=== PATIENT | female | born 1980 | race Caucasian/White ===

== ENCOUNTER 2020-02-24 04:51 | Emergency (ER) | payer SELFPAY ==
[2020-02-24] MEDS ORDERED: LORazepam 2 MG/ML VIAL ONE ×2 (05:27→09:22)
[2020-02-24 06:01] LABS: Absolute Lymphocytes (CBC) 2.1 K/uL (0.7-4.9); Basophils % 0.8 % (0-1.3); Hematocrit 39.9 % (36.0-45.0); Lymphocytes % 26.9 % (15.3-44.8); MPV 8.9 fL (7.6-11.3); RBC Red Blood Cell Count 4.45 M/uL (3.86-4.86)
[2020-02-24 06:03] LABS: Protime INR 1.15
[2020-02-24] MEDS ORDERED: NA CHLORIDE 0.9% 1,000 ML ONE (07:02)
[2020-02-24 07:12] LABS: ALT/SGPT 82 U/L (12-78); AST/SGOT 34 U/L (15-37); Albumin 3.9 g/dL (3.4-5.0); Alkaline Phosphatase 121 U/L (45-117); BUN Blood Urea Nitrogen 12 mg/dL (7-18); Bicarbonate 24 mmol/L (21-32); Bilirubin Direct 0.2 mg/dL (0-0.2); Bilirubin Total 0.6 mg/dL (0.2-1.0); Glucose Level 108 mg/dL (74-106); Magnesium 2.2 mg/dL (1.8-2.4); NT PRO-BNP 456 pg/mL (<125); Protein, Total 8.6 g/dL (6.4-8.2); Sodium Level 140 mmol/L (136-145); Troponin (Emerg Dept Use Only) < 0.02 ng/mL (0.0-0.045)
[2020-02-24 07:15] LABS: Potassium 2.7 mmol/L (3.5-5.1)
[2020-02-24] MEDS ORDERED: MEPERIDINE HCL 50 MG/ML ONE ×2 (07:38→09:21)
[2020-02-24] MEDS ORDERED: POTASSIUM CL SA 10 MEQ TAB PO ONE (07:38)
[2020-02-24] MEDS ORDERED: KCL 20 MEQ/100 mL IVPB 20 MEQ/100 ML BAG IV ONE (07:38)
--- NOTE | 2020-02-24 08:12 | RAD REPORT ---
EXAM DESCRIPTION: Ramiro Single View02/24/2020 6:05 am CLINICAL HISTORY: Chest pain COMPARISON: none FINDINGS: The lungs appear clear of acute infiltrate. The heart is normal size IMPRESSION: No acute abnormalities displayed
--- NOTE | 2020-02-24 09:11 | ER ---
Nurse's Notes [facility] Name: Denise Wick Age: 39 yrs Sex: Female : 1980 Arrival Date: 02/24/2020 Time: 04:53 Bed 4 Private MD: Diagnosis: Chest pain, unspecified Presentation: 02/23 05:18 Chief complaint: EMS states: they were called out for report of pt with chest pain. bb Coronavirus screen: At this time, the client does not indicate any symptoms associated with coronavirus-19. Ebola Screen: No symptoms or risks identified at this time. Initial Sepsis Screen: Does the patient meet any 2 criteria? No. Patient's initial sepsis screen is negative. Does the patient have a suspected source of infection? No. Patient's initial sepsis screen is negative. Risk Assessment: Do you want to hurt yourself or someone else? Patient reports no desire to harm self or others. Onset of symptoms was February 24, 2020. 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 - Social history:: Smoking status: unknown. Screenin:15 Abuse screen: Denies threats or abuse. Nutritional screening: No deficits noted. mt2 Tuberculosis screening: No symptoms or risk factors identified. Fall Risk None identified. Assessment: 05:15 Pain: Complains of pain in chest Pain radiates to back Pain currently is 10 out of 10 mt2 on a pain scale. Quality of pain is described as pressure, sharp, Pain began gradually. Cardiovascular: Reports chest pain. 05:49 Reassessment: PT DISCLOSED HAVING DONE SPEED WITH FRIEND THINKING IT WAS COCAINE. mt2 General: Appears distressed, Behavior is anxious. Neuro: No deficits noted. Respiratory: Reports shortness of breath. GI: Reports epigastric pain. : No deficits noted. EENT: No deficits noted. Derm: No deficits noted. Musculoskeletal: No deficits noted. 06:06 Reassessment: Patient and/or family updated on plan of care and expected duration. Pain mt2 level reassessed. Patient is alert, oriented x 3, equal unlabored respirations, skin warm/dry/pink. Reassessment: PATIENT UPSET WITH SPOUSE ATTITUDE ON PHONE. ANXIETY HAS INCREASED THOUGH VS IMPROVING. General: Appears uncomfortable, Behavior is anxious. 07:20 General: Appears comfortable, Behavior is calm, cooperative. Pain: Complains of pain in aa5 chest Pain radiates to back Pain currently is 8 out of 10 on a pain scale. Quality of pain is described as pressure, sharp. Neuro: Level of Consciousness is awake, alert, obeys commands, Oriented to person, place, time, situation, Reports headache frontal area. Cardiovascular: Heart tones S1 S2 present Rhythm is sinus tachycardia. Respiratory: Airway is patent Respiratory effort is even, unlabored, Respiratory pattern is regular, symmetrical, Breath sounds are clear bilaterally. Denies cough, shortness of breath. GI: Abdomen is round Bowel sounds present X 4 quads. Abd is soft and non tender X 4 quads. Patient currently denies nausea, vomiting. : No signs and/or symptoms were reported regarding the genitourinary system. EENT: No signs and/or symptoms were reported regarding the EENT system. Derm: Skin is pink, warm \\T\\ dry. Musculoskeletal: Range of motion: intact in all extremities. 07:35 Reassessment: Patient is alert, oriented x 3, equal unlabored respirations, skin aa5 warm/dry/pink. Pt reminded of need for urine specimen, pt verbalizes understanding. . 08:00 Reassessment: Pt resting in bed with eyes closed, respirations even and unlabored, skin aa5 is pink/warm/dry. NSR on monitor. . 08:30 Reassessment: Pt resting in bed with eyes closed, respirations even and unlabored, skin aa5 is pink/warm/dry.. 09:09 Reassessment: Patient is alert, oriented x 3, equal unlabored respirations, skin aa5 warm/dry/pink. Pt states "I am still in pain and can I please get something for anxiety". Pt reports she is having personal issues and has anxiety. was notified and Demerol and Ativan ordered. . 09:20 Reassessment: Patient is alert, oriented x 3, equal unlabored respirations, skin aa5 warm/dry/pink. General: Appears comfortable, Behavior is calm, cooperative. 09:25 Reassessment: To bedside to d/c pt, pt appears upset about no prescription for pain aa5 medication. Pt states "Can't the doctor prescribe me [place] or at least some Vicodin?", explained to pt ER doctor is not able to prescribe [place] or Vicodin and explained pt that Tylenol #3 is strongest pain medication prescribed in ER and due to her allergy the doctor is unable to prescribe it to her. Pt reports she gets "itching and some hives" with Tylenol #3. Pt responded "well, I don't think I am even allergic to codeine, I think my grandpa was". 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 Will notify MD. . 09:40 Reassessment: MD speaking to patient about prescription for pain medication, pt remains aa5 upset after speaking to MD. . Vital Signs: 05:18 BP 158 / 100; Pulse 135; Resp 18 S; Pulse Ox 100% on R/A; Weight 63.5 kg (R); Height 5 bb ft. 6 in. (167.64 cm) (R); Pain 10/10; 05:50 BP 146 / 105; Pulse 119; Resp 23; Pulse Ox 100% on 2 lpm NC; Pain 7/10; mt2 06:06 BP 140 / 93; Pulse 114; Resp 18; Pulse Ox 99% on 2 lpm NC; Pain 5/10; mt2 06:30 BP 114 / 81; Pulse 105; Resp 17; Pulse Ox 99% on 2 lpm NC; Pain 0/10; mt2 07:20 BP 149 / 109; Pulse 102; Resp 18 S; Temp 99.0(O); Pulse Ox 97% on R/A; Pain 7/10; aa5 08:01 BP 140 / 92; Pulse 93; Resp 16 S; Pulse Ox 100% on R/A; Pain 7/10; aa5 05:18 Body Mass Index 22.60 (63.50 kg, 167.64 cm) ED Course: 04:50 Patient has correct armband on for positive identification. Bed in low position. Call mt2 light in reach. Side rails up X 1. site monitor on. Pulse ox on. NIBP on. 04:53 Patient arrived in ED. cl3 04:58 Daniel Chowdhury MD is Attending Physician. mh7 05:00 Inserted saline lock: 20 gauge antecubital area, using aseptic technique. Blood mt2 collected. Oxygen administration via nasal cannula \\T\\ 2L/min. 05:20 Triage completed. bb 05:21 Arm band placed on Patient placed in an exam room, on a stretcher, on manager cardiac cath, bb on pulse oximetry. EKG completed in triage. Results shown to MD. 05:34 Tressa Koo, DRISS is Primary Nurse. mt2 05:37 Radiology exam delayed due to patient is not appropriately dressed for the exam at this 1 time. 06:00 XRAY Chest (1 view) In Process Unspecified. EDMS 07:05 Report received from DRISS Bustillos. aa5 07:14 Attending Physician role handed off by Daniel Chowdhury MD rn 07:14 Noah Steven MD is Attending Physician. rn 08:54 UDS Sent. 5 08:55 Urine collected: clean catch specimen, cloudy. 5 09:20 IV discontinued, intact, bleeding controlled, No redness/swelling at site. Pressure aa5 dressing applied. 09:20 No provider procedures requiring assistance completed. aa5 Administered Medications: 05:15 Drug: Ativan 1 mg Route: IVP; Site: right antecubital; mt2 05:40 Follow up: Response: No adverse reaction; Pain is unchanged, physician notified mt2 05:48 Drug: Ativan 1 mg Route: IVP; Site: right antecubital; mt2 06:00 Follow up: Response: No adverse reaction; Pain is decreased; Anxiety decreased mt2 06:20 Drug: NS 0.9% 1000 ml Route: IV; Rate: 1000 ml; Site: right antecubital; mt2 08:45 Follow up: IV Status: Completed infusion; IV Intake: 1000ml aa5 07:35 Drug: Demerol 50 mg Route: IVP; Site: right antecubital; aa5 07:45 Follow up: Response: No adverse reaction aa5 07:35 Drug: Potassium Chloride 40 mEq Route: PO; aa5 08:45 Follow up: Response: No adverse reaction aa5 07:35 Drug: Potassium Chloride 10 mEq Route: IV; Rate: calculated rate; Site: right aa5 antecubital; 08:45 Follow up: Response: No adverse reaction; IV Status: Completed infusion aa5 09:13 Drug: Demerol 25 mg Route: IVP; Site: right antecubital; aa5 09:20 Follow up: Response: No adverse reaction aa5 09:13 Drug: Ativan 1 mg Route: IVP; Site: right antecubital; aa5 09:20 Follow up: Response: No adverse reaction; Anxiety decreased aa5 Intake: 08:45 IV: 1000ml; Total: 1000ml. aa5 Outcome: 09:09 Discharge ordered by . rn 09:40 Discharged to home via wheelchair, with significant other. aa5 09:40 Condition: stable 09:40 Discharge instructions given to patient, Instructed on discharge instructions, follow up and referral plans. medication usage, Demonstrated understanding of instructions, follow-up care, medications, Prescriptions given X 1. 09:42 Patient left the ED. aa5 Signatures: Dispatcher [employer] EDMS Dariana Álvarez 1 Lissette Hopkins RN RN bb Noah Steven MD MD rn Calderon, Audri, RN RN aa5 Juliana Atkinson 5 Donnell Marin 3 Daniel Chowdhury MD MD 7 Tressa Koo RN RN mt2 Corrections: (The following items were deleted from the chart) 08:02 07:20 Pain: Complains of pain in chest Pain does not radiate. Pain currently is 7 out aa5 of 10 on a pain scale. Quality of pain is described as pressure, sharp, aa5 08:53 07:45 Response: No adverse reaction; IV Status: Completed infusion aa5 aa5 11:15 09:46 Patient left the ED. aa5 aa5
--- NOTE | 2020-02-24 09:11 | EDPHYS ---
Physician Documentation [facility] Name: Denise Wick Age: 39 yrs Sex: Female : 1980 Arrival Date: 02/24/2020 Time: 04:53 Bed 4 Private MD: ED Physician Noah Steven HPI: 02/23 05:18 This 39 yrs old Female presents to ER via Unassigned with complaints of Chest Pain. mh7 05:18 The patient or guardian reports chest pain that is located primarily in the substernal mh7 area. The pain does not radiate. Associated signs and symptoms: Pertinent positives: nausea, palpitations, Pertinent negatives: abdominal pain, cough, diaphoresis, dizziness, headache, lower extremity pain, lower extremity swelling, lightheadedness, near syncope, syncope. 05:21 The chest pain is described as a pressure. Duration: The patient or guardian reports mh7 multiple episodes, that are intermittent, that wax and wane, with no pattern. Modifying factors: The symptoms are alleviated by nothing. the symptoms are aggravated by nothing. Severity of pain: At its worst the pain was moderate today, in the emergency department the pain is unchanged. 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 - Social history:: Smoking status: unknown. ROS: 05:21 Constitutional: Negative for fever, chills, and weight loss, Eyes: Negative for injury, mh7 pain, redness, and discharge, ENT: Negative for injury, pain, and discharge, Neck: Negative for injury, pain, and swelling, Back: Negative for injury and pain, : Negative for injury, bleeding, discharge, and swelling, MS/Extremity: Negative for injury and deformity, Skin: Negative for injury, rash, and discoloration, Neuro: Negative for headache, weakness, numbness, tingling, and seizure, Allergy/Immunology: Negative for hives, rash, and allergies, Endocrine: Negative for neck swelling, polydipsia, polyuria, polyphagia, and marked weight changes, Hematologic/Lymphatic: Negative for swollen nodes, abnormal bleeding, and unusual bruising. Exam: 05:21 Head/Face: Normocephalic, atraumatic. Eyes: Pupils equal round and reactive to light, mh7 extra-ocular motions intact. Lids and lashes normal. Conjunctiva and sclera are non-icteric and not injected. Cornea within normal limits. Periorbital areas with no swelling, redness, or edema. Neck: Trachea midline, no thyromegaly or masses palpated, and no cervical lymphadenopathy. Supple, full range of motion without nuchal rigidity, or vertebral point tenderness. No Meningismus. Chest/axilla: Normal chest wall appearance and motion. Nontender with no deformity. No lesions are appreciated. 05:21 Respiratory: Lungs have equal breath sounds bilaterally, clear to auscultation and percussion. No rales, rhonchi or wheezes noted. No increased work of breathing, no retractions or nasal flaring. Abdomen/GI: Soft, non-tender, with normal bowel sounds. No distension or tympany. No guarding or rebound. No evidence of tenderness throughout. Back: No spinal tenderness. No costovertebral tenderness. Full range of motion. Skin: Warm, dry with normal turgor. Normal color with no rashes, no lesions, and no evidence of cellulitis. MS/ Extremity: Pulses equal, no cyanosis. Neurovascular intact. Full, normal range of motion. Neuro: Awake and alert, GCS 15, oriented to person, place, time, and situation. Cranial nerves II-XII grossly intact. Motor strength 5/5 in all extremities. Sensory grossly intact. Cerebellar exam normal. Normal gait. 05:21 Constitutional: The patient appears in no acute distress, alert, awake, anxious. 05:21 Cardiovascular: Rate: tachycardic, Rhythm: regular, Pulses: no pulse deficits are appreciated, Heart sounds: normal, normal S1and S2, Edema: is not appreciated, JVD: is not appreciated. 05:21 Psych: Behavior/mood is cooperative, anxious, Affect is animated, Oriented to person, place, time, Patient has no thoughts/intents to harm self or others. Judgement / Insight is normal. Memory is normal. Delusions/hallucinations are not present. Vital Signs: 05:18 BP 158 / 100; Pulse 135; Resp 18 S; Pulse Ox 100% on R/A; Weight 63.5 kg (R); Height 5 bb ft. 6 in. (167.64 cm) (R); Pain 10/10; 05:50 BP 146 / 105; Pulse 119; Resp 23; Pulse Ox 100% on 2 lpm NC; Pain 7/10; mt2 06:06 BP 140 / 93; Pulse 114; Resp 18; Pulse Ox 99% on 2 lpm NC; Pain 5/10; mt2 06:30 BP 114 / 81; Pulse 105; Resp 17; Pulse Ox 99% on 2 lpm NC; Pain 0/10; mt2 07:20 BP 149 / 109; Pulse 102; Resp 18 S; Temp 99.0(O); Pulse Ox 97% on R/A; Pain 7/10; aa5 08:01 BP 140 / 92; Pulse 93; Resp 16 S; Pulse Ox 100% on R/A; Pain 7/10; aa5 05:18 Body Mass Index 22.60 (63.50 kg, 167.64 cm) bb MDM: 05:13 Patient medically screened. [facility] 07:05 Transition of care: After a detail discussion of the patient's case, care is mh7 transferred to Noah Steven MD. 07:20 ED course: Pt states her had been calling her all day yesterday, under a lot of rn stress, reports yesterday afternoon "took a bump of cocaine", but "ended up being speed", made her chest pain worse. . 08:34 Differential diagnosis: acute myocardial infarction, acute pericarditis, anxiety, chest rn wall pain, costochondritis, gastritis, pleurisy, pneumothorax. Data reviewed: vital signs, nurses notes, lab test result(s), EKG, radiologic studies, plain films, and as a result, I will discharge patient. ED course: Pt very anxious, stressed, tearful, reports worried because might lose her job and might be getting divorce, crying, will continue with IVF and reeval. . 02/23 05:12 Order name: Basic Metabolic Panel; Complete Time: 07:21 [facility] 02/23 05:12 Order name: CBC with Diff; Complete Time: 06:06 [facility] 02/23 05:12 Order name: LFT's; Complete Time: 07:21 02/23 05:12 Order name: Magnesium; Complete Time: 07:21 02/23 05:12 Order name: NT PRO-BNP; Complete Time: 07:21 02/23 05:12 Order name: PT-INR; Complete Time: 06:06 02/23 05:12 Order name: Troponin (emerg Dept Use Only); Complete Time: 07:21 02/23 05:12 Order name: XRAY Chest (1 view); Complete Time: 08:17 02/23 05:12 Order name: UDS; Complete Time: 09:40 02/23 09:10 Order name: Urine Dipstick--Ancillary (enter results); Complete Time: 09:40 02/23 09:10 Order name: Urine --Ancillary (enter results); Complete Time: 09:40 bd 02/23 05:12 Order name: EKG; Complete Time: 05:13 02/23 05:12 Order name: Cardiac monitoring; Complete Time: 05:02/23 05:12 Order name: EKG - Nurse/Tech; Complete Time: 05:31 02/23 05:12 Order name: IV Saline Lock; Complete Time: 05:02/23 05:12 Order name: Labs collected and sent; Complete Time: 05:02/23 05:12 Order name: O2 Per Protocol; Complete Time: 05:02/23 05:12 Order name: O2 Sat Monitoring; Complete Time: 05:02/23 05:12 Order name: Urine Dipstick-Ancillary (obtain specimen); Complete Time: 08:54 02/23 05:12 Order name: Urine Test (obtain specimen); Complete Time: 08:54 7 Administered Medications: 05:15 Drug: Ativan 1 mg Route: IVP; Site: right antecubital; mt2 05:40 Follow up: Response: No adverse reaction; Pain is unchanged, physician notified mt2 05:48 Drug: Ativan 1 mg Route: IVP; Site: right antecubital; mt2 06:00 Follow up: Response: No adverse reaction; Pain is decreased; Anxiety decreased mt2 06:20 Drug: NS 0.9% 1000 ml Route: IV; Rate: 1000 ml; Site: right antecubital; mt2 08:45 Follow up: IV Status: Completed infusion; IV Intake: 1000ml aa5 07:35 Drug: Demerol 50 mg Route: IVP; Site: right antecubital; aa5 07:45 Follow up: Response: No adverse reaction aa5 07:35 Drug: Potassium Chloride 40 mEq Route: PO; aa5 08:45 Follow up: Response: No adverse reaction aa5 07:35 Drug: Potassium Chloride 10 mEq Route: IV; Rate: calculated rate; Site: right aa5 antecubital; 08:45 Follow up: Response: No adverse reaction; IV Status: Completed infusion aa5 09:13 Drug: Demerol 25 mg Route: IVP; Site: right antecubital; aa5 09:20 Follow up: Response: No adverse reaction aa5 09:13 Drug: Ativan 1 mg Route: IVP; Site: right antecubital; aa5 09:20 Follow up: Response: No adverse reaction; Anxiety decreased aa5 Disposition: 02/24/20 09:09 Discharged to Home. Impression: Chest pain, unspecified. - Condition is Stable. - Discharge Instructions: Nonspecific Chest Pain, Urinary Tract Infection, Adult, Generalized Anxiety Disorder. - Prescriptions for Cipro 500 mg Oral Tablet - take 1 tablet by ORAL route every 12 hours for 7 days; 14 tablet. - Medication Reconciliation Form, Thank You Letter, Antibiotic Education, Prescription Opioid Use, Work release form form. - Follow up: Private Physician; When: As needed; Reason: Recheck today's complaints, Re-evaluation by your physician. - Problem is new. - Symptoms have improved. Signatures: Dispatcher [employer] EDMS Lissette Hopkins RN RN bb Noah Steven MD MD rn Calderon, Audri, RN RN aa5 Daniel Chowdhury MD MD [facility] Tressa Koo RN RN mt2 Corrections: (The following items were deleted from the chart) 09:46 09:09 02/24/2020 09:09 Discharged to Home. Impression: Chest pain, unspecified. aa5 Condition is Stable. Forms are Medication Reconciliation Form, Thank You Letter, Antibiotic Education, Prescription Opioid Use. Follow up: Private Physician; When: As needed; Reason: Recheck today's complaints, Re-evaluation by your physician. Problem is new. Symptoms have improved. rn
[2020-02-24 09:18] LABS: Urine Blood NEGATIVE (NEG); Urine Glucose NEGATIVE (NEG); Urine Protein NEGATIVE (NEG)
[2020-02-24 09:20] LABS: Barbiturates NEGATIVE (NEGATIVE); Benzodiazepines NEGATIVE (NEGATIVE); Cocaine NEGATIVE (NEGATIVE); METHAMPHETAM POSITIVE (NEGATIVE); Methadone NEGATIVE (NEGATIVE); Opiates NEGATIVE (NEGATIVE); Phencyclidine NEGATIVE (NEGATIVE); THC Cannibis NEGATIVE (NEGATIVE)
== END 2020-02-24 09:46 | disposition home or self-care (01) ==
LOC: EDBD 04:51 → ER 04:51
DX: R07.9 Chest pain, unspecified (principal); I10 Essential (primary) hypertension; Z88.5 Allergy status to narcotic agent
CPT/HCPCS: 36415; 71045; 80048; 80076; 80307; 81003; 81025; 83735; 83880; 84484; 85025; 85610; 93005; 96361; 96365; 96375; 99285; J2175; J3480; J7030

== ENCOUNTER 2020-02-25 11:18 | Emergency (ER) | payer SELFPAY ==
--- OUTSIDE RECORDS SUMMARY | 2020-02-25 11:20 | XMS REPORT | Continuity of Care Document ---
:1980 Author Organization [facility] t Address [address] [place] [address] Care Team Providers Name Role Phone BUDDY ZAPATA Attending Clinician Unavailable DRE PARKER Attending Clinician Unavailable FROILAN ZAPATA Admitting Clinician Unavailable DRE PARKER Admitting Clinician Unavailable Problems This patient has no known problems. Allergies, Adverse Reactions, Alerts This patient has no known allergies or adverse reactions. Medications This patient has no known medications. Procedures This patient has no known procedures. Results Test Description Test Time Test Comments Results Result [facility] e Comments CT ABDOMEN/PELVIS 2019-08-22 NPO 4 hours. Procedure: CT W/CONTRAST 18:17:32 Do not ABDOMEN/PELVIS withhold meds W/CONTRASTOrder date: 08/22/2019 5:21 PMOrdering Provider: ALLAN Nolascoinical Indication: Severe central abdominal painComparison: NoneTechnique: Multiple axial helical CT images of the abdomen and pelvis wereobtained with IV contrast. Coronal and sagittal reformatted images were alsoobtained.This exam was performed according to the our departmental dose-optimizationprogram which includes automated exposure control, adjustment of the mA and/orkV according to patient size and/or use of iterative reconstruction techniques.Findings:Lung bases are clear and the heart apex within normal limits. No inferiormediastinal abnormality. Inferior osseous structures of the thorax areunremarkable.The solid abdominal viscera are unremarkable. Stomach, small and large bowelare within normal limits.No peritoneal or retroperitoneal masses or adenopathy. No free fluid orpneumoperitoneum.Appen bettie is not visualized if there is no secondary signs of acute appendicitisor inflammatory change within the right lower quadrant.Urinary bladder is unremarkable. No pelvic masses or adenopathy seen. Perirectalfat planes are preserved.Osseous structures of the abdomen and pelvis are nonacute.Impression:Unre markable CT of the abdomen and pelvis with IV contrast.This final report was electronically signed by Dr Verónica Quesada MD 08/22/20196:11 PMDictated By: VERÓNICA QUESADADate: 08/22/2019 18:11 STAT LAB , URINE 2019-08-22 17:09:00 Test Item Value Reference Range Interpretation Comme nts (Urine) (test code = PREGU) Negative STAT LAB URINALYSIS WITHOUT [id number] 17:08:00 Test Item Value Reference Range Interpretation Comments Color (test code = UCOLR) Light yellow Lt. Yellow A Clarity (test code = UCLAR) Clear Glucose (test code = UGLUC) Negative Negative N Bilirubin (test code = UBILI) Negative Negative N Ketones (test code = UKET) Negative Negative N Specific [place] (test code = 1.015 1.005-1.030 A USPGR) Blood (test code = UBLD) Negative Negative N PH (test code = UPH) 5.5 4.5-8.0 A Protein (test code = UPROT) Negative Negative N Urobilinogen (test code = U 0.2 >0.2 N UROB) Nitrite (test code = UNITR) Negative Negative N Leukocyte Esterase (test code = Negative Negative N ULEUK) [id number] 16:39:00 Test Item Value Reference Range Interpretation Comments Lipase (test code = LIPA) 178 U/L 73-393 [id number] 16:39:00 Test Item Value Reference Range Interpretation Comments Sodium (test code = 136 mmol/l 137-145 L NA) Potassium (test 4.4 mmol/l 3.5-5.1 code = K) Chloride (test code 107 mmol/l 98-107 = CL) Calcium (test code 8.5 mg/dl 8.5-10.1 = CALC) CO2 (test code = 24 mmol/l 21-32 CO2) Glucose (test code 99 mg/dl 74-106 = GLU) BUN (test code = 10.0 mg/dl 7.0-18.0 BUN) Creatinine (test 0.7 mg/dl 0.5-1.3 code = CREA) T Protein (test 8.2 gm/dl 6.4-8.2 code = TP) Albumin (test code 3.6 gm/dl 3.4-5.0 = ALB) A/G Ratio (test 0.8 % 1.1-2.2 L code = AGRAT) AST (SGOT) (test 83 U/L 15-37 H code = AST) ALT (SGPT) (test 102 U/L 13-61 H code = ALT) Alkaline Phos (test 93 U/L 45-117 code = ALKP) Total Bilirubin 0.3 mg/dl 0.2-1.0 (test code = TBIL) Globulin (test code 4.6 gm/dl 2.3-3.5 H = GLOBU) Calcium, Corrected 8.8 mg/dl 8.4-10.2 Various f ormulas exist (test code = for corrected s adama CALCCORR) calcium results , each yielding differ ent values. This corrected resul t was based on the fo rmula: Corrected Calci um = SerumCalcium + [0.8 * ( 4 - SerumAlbu min)] EGFR if >60 [place] (test code mL/min/1.73m\ = EGFRAA) S\2 EGFR if Non- >60 Estimate d Glomerular [place] (test code mL/min/1.73m\ Filtrat ion Rate (eGFR) = EGFRNA) S\2 Reference Inter vals Decision Points for 18 years and older and average body ma ss: >= 60 Does not exc lude kidney disease. 30 - 59 Suggests modera te chronic kidney disease and indicat es the need for furthe r investigation including asses sment of proteinuria and cardiovascular factors. < 30 Usually in dicates a need for refe rral for assessment and management of c hronic kidney failure. STAT LAB CBC WITH AUTO [id number] 16:16:00 Test Item Value Reference Range Interpretation Comments WBC (test code = WBC) 4.65 10\S\3/ul 4.80-10.80 L RBC (test code = RBC) 4.26 10\S\6/ul 4.20-5.40 Hemoglobin (test code = HGB) 13.1 gm/dl 12.0-14.0 Hematocrit (test code = HCT) 39.7 % 37.0-47.0 MCV (test code = MCV) 93.2 fL 81.0-99.0 MCH (test code = MCH) 30.8 pg 27.0-31.0 MCHC (test code = MCHC) 33.0 gm/dl 33.0-37.0 Platelet (test code = PLT) 256 10\S\3/ul 130-400 RDW (test code = RDWVC) 12.3 % 11.5-14.5 MPV (test code = MPV) 9.3 fL 7.4-10.4 A NE% (test code = NE) 54.1 % 42.0-75.0 LY% (test code = LY) 33.3 % 13.0-42.0 MO% (test code = MO) 9.2 % 4.0-14.0 EO% (test code = EO) 2.4 % 1.0-3.0 BA% (test code = BA) 0.6 % 1.0-3.0 L IG% (test code = IG%) 0.4 % 0.0-0.4 XR ELBOW MIN 3 [id number] 17:59:10Procedure: XR ELBOW MIN 3 VIEWSOrder Date: 08/19/2019 2:54 PMOrdering Provider: FIONA Vincentinical Indication: [id number]: Pain of left elbow jointComparison: NoneFINDINGS:There is no fracture or dislocation.Osteoarthrosis of the left elbow, particularly at the radial articular surface.No lytic or sclerotic lesions.No joint effusion.No subcutaneous gas.IMPRESSION:1. No fracture or dislocation.2. Osteoarthrosis of the left elbow.3. No other significant findings.This final report was e lectronically signed by Dr Emile Nath MD 08/19/20195:52 PMDictated By: EMILE NATHDate: 08/19/2019 17:52
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
--- NOTE | 2020-02-26 11:42 | EDPHYS ---
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 - Social history:: Smoking status: Patient reports the use of cigarette tobacco products, smokes one-half pack cigarettes per day. Vital Signs: 11:26 BP 147 / 110; Pulse 114; Resp 18 S; Pulse Ox 100% on R/A; Weight 63.5 kg; Height 5 ft. iw 6 in. (167.64 cm); Pain 10; 11:26 Body Mass Index 22.60 (63.50 kg, 167.64 cm) iw MDM: 11:45 ED course: Pt left as I was walking to room for evaluation. Left prior to me evaluating rn her.. Administered Medications: No medications were administered Disposition: 02/25/20 11:41 Patient left the facility before being seen by provider. - Patient left due to (see nurse's notes). Signatures: Aubrie Mccormick RN RN Noah Steven MD MD rn Calderon, Audri, RN RN aa5 Corrections: (The following items were deleted from the chart) 11:43 11:29 Patient medically screened. rn rn
[2020-02-27 18:14] VITALS: BP 147/110; O2SAT 100
== END 2020-02-25 11:41 | disposition left against medical advice (07) ==
LOC: ER 11:18
DX: Z02.9 Encounter for administrative examinations, unspecified (principal); Z53.21 Procedure and treatment not carried out due to patient leaving prior to being seen by health care provider
CPT/HCPCS: 99284

== ENCOUNTER 2020-02-25 17:37 | Emergency (ER) | payer SELFPAY ==
--- OUTSIDE RECORDS SUMMARY | 2020-02-25 17:39 | XMS REPORT | Continuity of Care Document ---
:1980 Author Organization [facility] t Address [address] [place] [address] Care Team Providers Name Role Phone BUDDY [...] Description Test Time Test Comments Results Result [facility] e Comments CT ABDOMEN/PELVIS 2019-08-22 NPO 4 [...] = PREGU) Negative STAT LAB URINALYSIS WITHOUT [id number] 17:08:00 Test Item Value Reference Range Interpretation Comments Color (test code = UCOLR) Light yellow Lt. Yellow A Clarity (test code = UCLAR) Clear Glucose (test code = UGLUC) Negative Negative N Bilirubin (test code = UBILI) Negative Negative N Ketones (test code = UKET) Negative Negative N Specific [place] (test code = 1.015 1.005-1.030 A USPGR) Blood (test code = UBLD) Negative Negative N PH (test code = UPH) 5.5 4.5-8.0 A Protein (test code = UPROT) Negative Negative N Urobilinogen (test code = U 0.2 >0.2 N UROB) Nitrite (test code = UNITR) Negative Negative N Leukocyte Esterase (test code = Negative Negative N ULEUK) [id number] 16:39:00 Test Item Value Reference Range Interpretation Comments Lipase (test code = LIPA) 178 U/L 73-393 [id number] 16:39:00 Test Item Value Reference Range Interpretation [...] 4 - SerumAlbu min)] EGFR if >60 Citizen [place] (test code mL/min/1.73m\ = EGFRAA) S\2 EGFR if Non- >60 Estimate d Glomerular Citizen [place] (test code mL/min/1.73m\ Filtrat ion Rate (eGFR) [...] kidney failure. STAT LAB CBC WITH AUTO [id number] 16:16:00 Test Item Value Reference Range Interpretation [...] 0.4 % 0.0-0.4 XR ELBOW MIN 3 [id number] 17:59:10Procedure: XR ELBOW MIN 3 VIEWSOrder Date: 08/19/2019 2:54 PMOrdering Provider: FIONA Vincentinical Indication: [id number]: Pain of left elbow jointComparison: NoneFINDINGS:There is [...]
[2020-02-25 18:07] LABS: Absolute Lymphocytes (CBC) 2.1 K/uL (0.7-4.9); Basophils % 1.2 % (0-1.3); Hematocrit 41.9 % (36.0-45.0); Lymphocytes % 28.8 % (15.3-44.8); MPV 8.7 fL (7.6-11.3); RBC Red Blood Cell Count 4.69 M/uL (3.86-4.86)
[2020-02-25] MEDS ORDERED: LORAZEPAM 1 MG TABLET ONE (18:16)
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
--- NOTE | 2020-02-25 18:39 | ER ---
Nurse's Notes [facility] Name: Denise Wick Age: 39 yrs Sex: Female : 1980 Arrival Date: 02/25/2020 Time: 17:38 Bed 6 Private MD: Diagnosis: Anxiety disorder, unspecified;Chest pain, unspecified Presentation: 02/24 17:38 Chief complaint: EMS states: Chest pain started a 0200 today. Reports hx of ca1 cardiomyopathy and HPN. Was here yesterday and early today for CP but went AMA. BP 161/110, HR 130s, O2 at 100% RA. Reports she had drugs few days ago. Coronavirus screen: Client denies travel out of the [place] in the last 14 days. At this time, the client does not indicate any symptoms associated with coronavirus-19. Ebola Screen: Patient negative for fever greater than or equal to 101.5 degrees Fahrenheit, and additional compatible Ebola Virus Disease symptoms Patient denies exposure to infectious person. Patient denies travel to an Ebola-affected area in the 21 days before illness onset. No symptoms or risks identified at this time. Initial Sepsis Screen: Does the patient meet any 2 criteria? No. Patient's initial sepsis screen is negative. Does the patient have a suspected source of infection? No. Patient's initial sepsis screen is negative. Risk Assessment: Do you want to hurt yourself or someone else? Patient reports no desire to harm self or others. Onset of symptoms was February 25, 2020. 17:38 Method Of Arrival: EMS: [facility] ca1 17:38 Acuity: CHRISTINA 3 ca1 Triage Assessment: 17:39 General: Appears in no apparent distress. Behavior is agitated, anxious. Pain: bp Complains of pain in chest. EENT: No deficits noted. Neuro: No deficits noted. Cardiovascular: Rhythm is sinus rhythm. Respiratory: No deficits noted. GI: No signs and/or symptoms were reported involving the gastrointestinal system. : No signs and/or symptoms were reported regarding the genitourinary system. Derm: No deficits noted. Musculoskeletal: No deficits noted. 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 - Social history:: Smoking status: Patient reports the use of cigarette tobacco products, smokes two packs cigarettes per day. - Family history:: not pertinent. - Hospitalizations: : No recent hospitalization is reported. Screenin:43 Abuse screen: Denies threats or abuse. Denies injuries from another. Nutritional bp screening: No deficits noted. Tuberculosis screening: No symptoms or risk factors identified. Fall Risk None identified. Assessment: 17:43 General: SEE TRIAGE NOTE. bp 18:08 Reassessment: Pt. is crying and is anxious because she wants her back here with rb1 her. I explained to her that he could not come back with her due to COVID and hospital policy. 18:34 Reassessment: Dr. Steven at the pt. bedside. rb1 18:42 Reassessment: PT ELOPED WITHOUT NOTIFYING STAFF. LAST SEEN IN STABLE CONDITION. bp Vital Signs: 17:38 BP 162 / 111; Pulse 115; Resp 17 S; Temp 98.5(TE); Pulse Ox 100% on R/A; Weight 72.57 ca1 kg (R); Height 5 ft. 6 in. (167.64 cm) (R); 17:45 BP 151 / 117; Pulse 109; Resp 18; Pulse Ox 98% on R/A; rb1 18:30 bp 17:38 Body Mass Index 25.82 (72.57 kg, 167.64 cm) ca1 18:30 PT REFUSED VS MONITORING bp ED Course: 17:38 Patient arrived in ED. ca1 17:39 Chaka Chinchilla, RN is Primary Nurse. bp 17:41 Triage completed. ca1 17:42 Arm band placed on right wrist. ca1 17:43 Patient has correct armband on for positive identification. Bed in low position. Call bp light in reach. Side rails up X2. coding manager on. Pulse ox on. NIBP on. 17:46 Noah Steven MD is Attending Physician. rn 18:26 XRAY Chest (1 view) In Process Unspecified. EDMS 18:30 No provider procedures requiring assistance completed. IV discontinued, intact, bp bleeding controlled, No redness/swelling at site. Pressure dressing applied. Patient maintains SpO2 saturation greater than 95% on room air. Administered Medications: 18:02 CANCELLED (Duplicate Order): Ativan 1 mg IVP once rn 18:08 Drug: Ativan 1 mg Route: PO; rb1 Outcome: 18:30 Eloped from patient exam room, after seeing physician Time discovered patient gone: bp February 25, 2020 at 18:44 18:30 unknown 18:44 Patient left the ED. bp Signatures: Dispatcher [employer] EDMS Naoh Steven MD MD rn Tanna Tinsley RN RN rb1 Chaka Chinchilla, RN RN bp Tara Reese RN RN ca1
[2020-02-25 18:47] LABS: BUN Blood Urea Nitrogen 9 mg/dL (7-18); Bicarbonate 18 mmol/L (21-32); Glucose Level 118 mg/dL (74-106); NT PRO-BNP 730 pg/mL (<125); Sodium Level 141 mmol/L (136-145); Troponin (Emerg Dept Use Only) < 0.02 ng/mL (0.0-0.045)
--- NOTE | 2020-02-25 19:00 | RAD REPORT ---
EXAM DESCRIPTION: RAD - Chest Single View - 02/25/2020 6:28 pm CLINICAL HISTORY: CHEST PAIN Chest pain. COMPARISON: Chest Single View dated 02/24/2020 FINDINGS: Portable technique limits examination quality. The lungs are grossly clear. The heart is normal in size. No displaced fractures. IMPRESSION: No acute intrathoracic process suspected.
--- NOTE | 2020-02-26 12:23 | EKG ---
Test Date: 2020-02-25 Test Time: 17:48:59 Wire Cutter: SHERWIN MEASUREMENT RESULTS: Intervals: Rate: 99 IL: 108 QRSD: 102 QT: 366 QTc: 469 [place]: P: 27 IL: 108 QRS: 51 T: -3 INTERPRETIVE STATEMENTS: Sinus rhythm with short [place] Nonspecific ST and T wave abnormality Prolonged QT Abnormal ECG Compared to ECG 02/24/2020 05:42:43 Short IL interval now present Prolonged QT interval now present Sinus tachycardia no longer present ST (T wave) deviation still present Electronically Signed On 02-26-20 12:22:42 CDT by Reggie Laguna
[2020-02-27 21:13] VITALS: TEMP 98.5
[2020-02-27 21:15] VITALS: BP 151/117; O2SAT 98
== END 2020-02-25 18:44 | disposition left against medical advice (07) ==
LOC: ER 17:37
DX: R07.9 Chest pain, unspecified (principal); F41.9 Anxiety disorder, unspecified; F17.210 Nicotine dependence, cigarettes, uncomplicated; F31.9 Bipolar disorder, unspecified; Z88.6 Allergy status to analgesic agent
CPT/HCPCS: 36415; 71045; 80048; 83880; 84484; 85025; 85379; 93005; 99285

== ENCOUNTER 2020-04-03 07:52 | Observation (INO) | payer OTHER ==
--- OUTSIDE RECORDS SUMMARY | 2020-04-03 07:54 | XMS REPORT | Continuity of Care Document ---
:1980 Author Organization [facility] t Address [address] [place] [address] Care Team Providers Name Role Phone FROILAN ZAPATA Attending Clinician Unavailable DRE PARKER Attending Clinician Unavailable FROILAN ZAPATA Admitting Clinician Unavailable DRE PARKER Admitting Clinician Unavailable Problems This patient has no known problems. Allergies, Adverse Reactions, Alerts This patient has no known allergies or adverse reactions. Medications This patient has no known medications. Procedures This patient has no known procedures. Results Test Description Test Time Test Comments Results Result [facility] e Comments CT ABDOMEN/PELVIS 2019-08-22 NPO 4 [...] = PREGU) Negative STAT LAB URINALYSIS WITHOUT [id number] 17:08:00 Test Item Value Reference Range Interpretation Comments Color (test code = UCOLR) Light yellow Lt. Yellow A Clarity (test code = UCLAR) Clear Glucose (test code = UGLUC) Negative Negative N Bilirubin (test code = UBILI) Negative Negative N Ketones (test code = UKET) Negative Negative N Specific [place] (test code = 1.015 1.005-1.030 A USPGR) Blood (test code = UBLD) Negative Negative N PH (test code = UPH) 5.5 4.5-8.0 A Protein (test code = UPROT) Negative Negative N Urobilinogen (test code = U 0.2 >0.2 N UROB) Nitrite (test code = UNITR) Negative Negative N Leukocyte Esterase (test code = Negative Negative N ULEUK) [id number] 16:39:00 Test Item Value Reference Range Interpretation Comments Lipase (test code = LIPA) 178 U/L 73-393 [id number] 16:39:00 Test Item Value Reference Range Interpretation [...] 4 - SerumAlbu min)] EGFR if >60 [place] (test code mL/min/1.73m\ = EGFRAA) S\2 EGFR if Non- >60 Estimate d Glomerular [place] (test code mL/min/1.73m\ Filtrat ion Rate (eGFR) [...] kidney failure. STAT LAB CBC WITH AUTO [id number] 16:16:00 Test Item Value Reference Range Interpretation [...] 0.4 % 0.0-0.4 XR ELBOW MIN 3 [id number] 17:59:10Procedure: XR ELBOW MIN 3 VIEWSOrder Date: 08/19/2019 2:54 PMOrdering Provider: FIONA Vincentinical Indication: [id number]: Pain of left elbow jointComparison: NoneFINDINGS:There is [...]
--- NOTE | 2020-04-03 08:40 | EDPHYS ---
Physician Documentation [facility] Name: Denise Wick Age: 39 yrs Sex: Female : 1980 Arrival Date: 04/03/2020 Time: 07:54 Bed 2 Private MD: ED Physician Bruno Ferrell HPI: 04/03 08:30 This 39 yrs old Female presents to ER via Ambulatory with complaints of johnny Numbness Of Arm, Chest Pain, Breathing Difficulty, Back Pain. 08:30 The patient or guardian complains of pain. 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 - Social history:: Smoking status: . ROS: 08:30 Constitutional: Negative for fever, chills, and weight loss, Eyes: Negative for injury, johnny pain, redness, and discharge, ENT: Negative for injury, pain, and discharge, Neck: Negative for injury, pain, and swelling, Respiratory: Negative for shortness of breath, cough, wheezing, and pleuritic chest pain, Abdomen/GI: Negative for abdominal pain, nausea, vomiting, diarrhea, and constipation, Back: Negative for injury and pain, : Negative for injury, bleeding, discharge, and swelling, MS/Extremity: Negative for injury and deformity, Neuro: Negative for headache, weakness, numbness, tingling, and seizure, Psych: Negative for depression, anxiety, suicide ideation, homicidal ideation, and hallucinations, Allergy/Immunology: Negative for hives, rash, and allergies, Endocrine: Negative for neck swelling, polydipsia, polyuria, polyphagia, and marked weight changes, Hematologic/Lymphatic: Negative for swollen nodes, abnormal bleeding, and unusual bruising. 08:30 Cardiovascular: Positive for chest pain, of the chest, palpitations. 08:30 Neuro: Positive for anxiety. Exam: 08:30 Constitutional: This is a well developed, well nourished patient who is awake, alert, johnny and in no acute distress. Head/Face: Normocephalic, atraumatic. Eyes: Pupils equal round and reactive to light, extra-ocular motions intact. Lids and lashes normal. Conjunctiva and sclera are non-icteric and not injected. Cornea within normal limits. Periorbital areas with no swelling, redness, or edema. ENT: Nares patent. No nasal discharge, no septal abnormalities noted. Tympanic membranes are normal and external auditory canals are clear. Oropharynx with no redness, swelling, or masses, exudates, or evidence of obstruction, uvula midline. Mucous membranes moist. Neck: Trachea midline, no thyromegaly or masses palpated, and no cervical lymphadenopathy. Supple, full range of motion without nuchal rigidity, or vertebral point tenderness. No Meningismus. Chest/axilla: Normal chest wall appearance and motion. Nontender with no deformity. No lesions are appreciated. Respiratory: Lungs have equal breath sounds bilaterally, clear to auscultation and percussion. No rales, rhonchi or wheezes noted. No increased work of breathing, no retractions or nasal flaring. Abdomen/GI: Soft, non-tender, with normal bowel sounds. No distension or tympany. No guarding or rebound. No evidence of tenderness throughout. Back: No spinal tenderness. No costovertebral tenderness. Full range of motion. Skin: Warm, dry with normal turgor. Normal color with no rashes, no lesions, and no evidence of cellulitis. MS/ Extremity: Pulses equal, no cyanosis. Neurovascular intact. Full, normal range of motion. Neuro: Awake and alert, GCS 15, oriented to person, place, time, and situation. Cranial nerves II-XII grossly intact. Motor strength 5/5 in all extremities. Sensory grossly intact. Cerebellar exam normal. Normal gait. 08:30 Cardiovascular: Rate: tachycardic, Rhythm: irregularly irregular, Pulses: Pulses are 4+ in bilateral radial, brachial, femoral, popliteal, posterior tibial and and dorsalis pedis arteries.. Heart sounds: normal, Edema: is not appreciated, JVD: is not appreciated. 08:30 Neuro: Orientation: is normal, appropriate for stated age, no acute changes, Mentation: is normal, appropriate for stated age, no acute changes, Memory: is normal, appropriate for stated age, no acute changes, Cranial nerves: grossly normal, is grossly normal based on the patient's age, no acute changes, Cerebellar function: is grossly normal, is grossly normal based on the patient's age, no acute changes, Motor: is grossly normal based on the patient's age, no acute changes, moves all fours, strength is normal, Sensation: no obvious gross deficits, appropriate no acute changes, Gait: not tested. Deep tendon reflexes are normal, seizure activity, is not displayed by the patient. 08:41 ECG was reviewed by the Attending Physician. johnny Vital Signs: 08:00 BP 170 / 106; Pulse 106; Resp 20; Temp 98.3(TE); Pulse Ox 100% on R/A; Weight 63.5 kg tw2 (R); Height 5 ft. 6 in. (167.64 cm); Pain 8/10; 08:45 BP 158 / 103; Pulse 108; em 08:52 BP 167 / 90; Pulse 105; Resp 18; em 10:00 BP 157 / 110; Pulse 93; Resp 17; Pulse Ox 99% on R/A; tw2 08:00 Body Mass Index 22.60 (63.50 kg, 167.64 cm) tw2 MDM: 08:03 Patient medically screened. johnny 08:35 Differential diagnosis: Anxiety Reaction asthma, Myocardial Infarction pulmonary edema, johnny reactive airway disease. Antibiotic administration: Not indicated. HEART Score: History: Moderately Suspicious (1), ECG: Non specific repolarization disturbance / LBTB / PM (1), Age: < or = 45 years (0), Risk Factors: > or = 3 Risk factors for atherosclerotic disease (2), [Hypercholesterolemia] [Hypertension] [Active Smoker] [+ Family HX] Troponin: < or = 1 x Normal Limit (0). The patient's Wells Deep Vein Thrombosis Score was calculated as follows: Total Score: 0. This patient was found to be at low risk for a deep vein thrombosis by using the Well's assessment criteria Total Score: 0-2 Pts- Low Risk. The patient's pulmonary embolism risk score was calculated as follows: Total Score: 0-2 points. This patient was found to be at low risk for a pulmonary embolism by using the Well's assessment criteria Total Score: 0-2 points. This patient was found to be at low risk for a pulmonary embolism by using the Well's assessment criteria. ADEBAYO Risk Score: TOTAL SCORE = 0. Immunization status:. Data reviewed: vital signs, nurses notes, lab test result(s), EKG, radiologic studies, plain films. Data interpreted: baggageman: rate is 106 beats/min, rhythm is atrial fibrillation, Pulse oximetry: on room air is 100 %. Test interpretation: by ED physician or midlevel provider: ECG, plain radiologic studies. 04/03 08:16 Order name: Basic Metabolic Panel; Complete Time: 09:38 em 04/03 08:16 Order name: CBC with Diff; Complete Time: 09:38 em 04/03 08:16 Order name: LFT's; Complete Time: 09:38 em 04/03 08:16 Order name: Magnesium; Complete Time: 09:38 em 04/03 08:16 Order name: NT PRO-BNP; Complete Time: 09:38 em 04/03 08:16 Order name: PT-INR; Complete Time: 09:38 em 04/03 08:16 Order name: Troponin (emerg Dept Use Only); Complete Time: 09:38 em 04/03 08:28 Order name: Acetaminophen [facility] 04/03 08:28 Order name: ETOH Level [facility] 04/03 08:28 Order name: Ptt, Activated; Complete Time: 09:38 johnny 04/03 08:28 Order name: Salicylate [facility] 04/03 08:28 Order name: Urine Drug Screen [facility] 04/03 08:28 Order name: TSH [facility] 04/03 08:29 Order name: Tegretol Level [facility] 04/03 08:16 Order name: XRAY Chest (1 view); Complete Time: 09:38 em 04/03 08:45 Order name: Echo with Doppler [facility] 04/03 08:45 Order name: Lipid Profile [facility] 04/03 08:45 Order name: Lipid Profile [facility] 04/03 08:45 Order name: Troponin I [facility] 04/03 08:45 Order name: Troponin I [facility] 04/03 08:45 Order name: Troponin I [facility] 04/03 09:19 Order name: Urine Dipstick--Ancillary (enter results) eb 04/03 09:19 Order name: Urine --Ancillary (enter results) eb 04/03 09:30 Order name: Urine --Ancillary; Complete Time: 09:38 EDMS 04/03 09:30 Order name: Urine Dipstick-Ancillary; Complete Time: 09:38 EDMS 04/03 08:16 Order name: EKG; Complete Time: 08:17 em 04/03 08:16 Order name: Cardiac monitoring; Complete Time: 08:16 em 04/03 08:16 Order name: EKG - Nurse/Tech; Complete Time: 08:16 em 04/03 08:16 Order name: IV Saline Lock; Complete Time: 09:00 em 04/03 08:16 Order name: Labs collected and sent; Complete Time: 09:00 em 04/03 08:16 Order name: O2 Per Protocol; Complete Time: 08:16 em 04/03 08:16 Order name: O2 Sat Monitoring; Complete Time: 08:17 em 04/03 08:28 Order name: Urine Dipstick-Ancillary (obtain specimen); Complete Time: 09:16 [facility] EC:41 Rate is 105 beats/min. Rhythm is regular. QRS [place] is Normal. [place] interval is normal. johnny QRS interval is normal. QT interval is normal. No Q waves. T waves are Normal. No ST changes noted. Clinical impression: No evidence of ischemia. Interpreted by me. Reviewed by me. Administered Medications: 08:48 Drug: Lopressor (metoprolol TARTRATE) 50 mg Route: PO; em 10:00 Follow up: Response: No adverse reaction tw2 08:48 Drug: Aspirin Chewable Tablet 162 mg Route: PO; em 10:12 Follow up: Response: No adverse reaction tw2 08:49 Drug: Lopressor 5 mg Route: IVP; Site: right antecubital; em 09:50 Follow up: Response: No adverse reaction; Blood pressure is lowered tw2 08:49 Drug: NS 0.9% 1000 ml Route: IV; Rate: 1 bolus; Site: right antecubital; em 10:05 Follow up: IV Status: Infusion continued upon admission tw2 08:50 Drug: Ativan 1 mg Route: IVP; Site: right antecubital; em 09:20 Follow up: Response: No adverse reaction; Marked relief of symptoms tw2 08:52 Drug: Lovenox 1 mg/kg Route: Sub-Q; Site: right lower abdomen; em 09:20 Follow up: Response: No adverse reaction tw2 08:53 Drug: Pepcid 20 mg Route: IVP; Site: right antecubital; em 09:05 Follow up: Response: No adverse reaction tw2 08:56 Not Given (Physician Discretion): Aspirin Chewable Tablet 324 mg PO once; 81 mg tablets em x 4 09:46 Drug: Potassium Effervescent Tablet 50 mEq Route: PO; em 10:05 Follow up: Response: No adverse reaction tw2 09:46 Drug: Zofran (Ondansetron) 4 mg Route: IVP; Site: right antecubital; em 10:05 Follow up: Response: No adverse reaction; Nausea is decreased tw2 09:47 Drug: fentaNYL (PF) 50 mcg Route: IVP; Site: right antecubital; em 10:05 Follow up: Response: No adverse reaction; Pain is decreased; RASS: Alert and Calm (0) tw2 Disposition: 04/03/20 08:39 Hospitalization ordered by Paulette Mcneil for Observation. Preliminary diagnosis are Abuse of other non-psychoactive substances, Other chest pain, Anxiety disorder, unspecified, Hypokalemia. - Bed requested for Telemetry/MedSurg (observation). - Status is Observation. tw2 - Condition is Fair. - Problem is new. - Symptoms have improved. Signatures: Dispatcher [employer] EDBruno Wise MD MD cha Munoz, Edgar, RN RN Jania Fam RN RN 2 Aarti Ruiz Corrections: (The following items were deleted from the chart) 08:41 08:39 Hospitalization Ordered by Paulette Mcneil MD for Inpatient Admission. Preliminary johnny diagnosis is Abuse of other non-psychoactive substances; Other chest pain; Atrial fibrillation and flutter - rvr; Anxiety disorder, unspecified. Bed requested for Telemetry/MedSurg (Inpatient). Status is Inpatient Admission. Condition is Fair. Problem is new. Symptoms have improved. johnny 08:43 08:41 04/03/2020 08:39 Hospitalization Ordered by Paulette Mcneil MD for Inpatient johnny Admission. Preliminary diagnosis is Abuse of other non-psychoactive substances; Other chest pain; Anxiety disorder, unspecified. Bed requested for Telemetry/MedSurg (Inpatient). Status is Inpatient Admission. Condition is Fair. Problem is new. Symptoms have improved. johnny 09:24 08:43 04/03/2020 08:39 Hospitalization Ordered by Paulette Mcneil MD for Observation. eb Preliminary diagnosis is Abuse of other non-psychoactive substances; Other chest pain; Anxiety disorder, unspecified. Bed requested for Operating Room. Status is Observation. Condition is Fair. Problem is new. Symptoms have improved. johnny 09:40 09:24 04/03/2020 08:39 Hospitalization Ordered by Paulette Mcneil MD for Observation. johnny Preliminary diagnosis is Abuse of other non-psychoactive substances; Other chest pain; Anxiety disorder, unspecified. Bed requested for Telemetry/MedSurg (observation). Status is Observation. Condition is Fair. Problem is new. Symptoms have improved. eb 10:12 09:40 04/03/2020 08:39 Hospitalization Ordered by Paulette Mcneil MD for Observation. tw2 Preliminary diagnosis is Abuse of other non-psychoactive substances; Other chest pain; Anxiety disorder, unspecified; Hypokalemia. Bed requested for Telemetry/MedSurg (observation). Status is Observation. Condition is Fair. Problem is new. Symptoms have improved. johnny
--- NOTE | 2020-04-03 08:40 | ER ---
Nurse's Notes [facility] Name: Denise Wick Age: 39 yrs Sex: Female : 1980 Arrival Date: 04/03/2020 Time: 07:54 Bed 2 Private MD: Diagnosis: Abuse of other non-psychoactive substances;Other chest pain;Anxiety disorder, unspecified;Hypokalemia Presentation: 04/03 08:00 Chief complaint: Patient states: i was up drinking last night with a friend and we were tw2 talking about some stressful stuff and I have angina but i couldn't find my nitro and i think i had a panic attack, i was drinking fireball and i drank the whole liter bottle by myself, it hurts when i take a deep breath and i feel pressure in my chest since about 3 am this morning. Chief complaint: Patient states: I also took some speed. Coronavirus screen: At this time, the client does not indicate any symptoms associated with coronavirus-19. Ebola Screen: Patient denies travel to an Ebola-affected area in the 21 days before illness onset. Initial Sepsis Screen: Does the patient meet any 2 criteria? HR > 90 bpm. No. Patient's initial sepsis screen is negative. Does the patient have a suspected source of infection? No. Patient's initial sepsis screen is negative. Risk Assessment: Do you want to hurt yourself or someone else? Patient reports no desire to harm self or others. Onset of symptoms was April 03, 2020. 08:00 Method Of Arrival: Ambulatory tw2 08:00 Acuity: CHRISTINA 3 tw2 Triage Assessment: 08:00 General: Appears in no apparent distress. Behavior is anxious. Pain: Complains of pain tw2 in chest. Cardiovascular: Reports chest pain. 08:00 EENT: No signs and/or symptoms were reported regarding the EENT system. Neuro: Level of tw2 Consciousness is awake, alert, obeys commands, Oriented to person, place, time, situation. Cardiovascular: Heart tones S1 S2 Patient's skin is warm and dry. Respiratory: Reports pain with respiration Airway is patent Respiratory effort is even, unlabored, Respiratory pattern is regular, symmetrical, Breath sounds are clear bilaterally. GI: No signs and/or symptoms were reported involving the gastrointestinal system. Abdomen is flat, Bowel sounds present X 4 quads. : No signs and/or symptoms were reported regarding the genitourinary system. Derm: No signs and/or symptoms reported regarding the dermatologic system. Musculoskeletal: Range of motion: intact in all extremities. SMASH HAND: 10:09 [facility] N/A - tw2 Historical: - Allergies: 08:14 Codeine; tw2 08:14 tramadol (rash); tw2 - Home Meds: 08:14 Nitroglycerin Oral [Active]; Tegretol Oral [Active]; Adderall XR Oral [Active]; Vicodin tw2 5/500 Oral [Active]; lisinopril 20 mg Oral tab 1 tab once daily [Active]; levothyroxine 50 mcg tab 1 tab once daily [Active]; - PMHx: 08:14 Angina; Bipolar disorder; cardiomyopathy; Hypertension; Hypothyroidism; Anxiety; tw2 - PSHx: 08:14 ; tw2 - Immunization history:: Adult Immunizations. - Social history:: Smoking status: . Screenin:14 Abuse screen: Denies threats or abuse. Nutritional screening: No deficits noted. em Tuberculosis screening: No symptoms or risk factors identified. Fall Risk None identified. Assessment: 08:00 Pain: Complains of pain in chest Pain does not radiate. Pain began 4 hours ago. tw2 08:00 Reassessment: see triage assessment. tw2 10:09 Reassessment: Patient appears in no apparent distress at this time. No changes from tw2 previously documented assessment. Patient and/or family updated on plan of care and expected duration. Pain level reassessed. Patient is alert, oriented x 3, equal unlabored respirations, skin warm/dry/pink. Vital Signs: 08:00 BP 170 / 106; Pulse 106; Resp 20; Temp 98.3(TE); Pulse Ox 100% on R/A; Weight 63.5 kg tw2 (R); Height 5 ft. 6 in. (167.64 cm); Pain 8/10; 08:45 BP 158 / 103; Pulse 108; em 08:52 BP 167 / 90; Pulse 105; Resp 18; em 10:00 BP 157 / 110; Pulse 93; Resp 17; Pulse Ox 99% on R/A; tw2 08:00 Body Mass Index 22.60 (63.50 kg, 167.64 cm) tw2 ED Course: 07:54 Patient arrived in ED. 08:03 Bruno Ferrell MD is Attending Physician. johnny 08:04 Tez Green, DRISS is Primary Nurse. em 08:07 Arm band placed on. EKG completed in triage. Results shown to MD. tw2 08:12 Triage completed. tw2 08:14 Patient has correct armband on for positive identification. Bed in low position. Call em light in reach. Side rails up X2. court monitor on. Pulse ox on. NIBP on. 08:14 Patient maintains SpO2 saturation greater than 95% on room air. em 08:25 Initial lab(s) drawn, by me, sent to lab. Inserted saline lock: 22 gauge in right em antecubital area, using aseptic technique. Blood collected. 08:37 Paulette Mcneil MD is Hospitalizing Provider. johnny 08:46 XRAY Chest (1 view) In Process Unspecified. EDMS 09:44 Assisted to bathroom. by wheelchair. mt 10:08 No provider procedures requiring assistance completed. Patient admitted, IV remains in tw2 place. Administered Medications: 08:48 Drug: Lopressor (metoprolol TARTRATE) 50 mg Route: PO; em 10:00 Follow up: Response: No adverse reaction tw2 08:48 Drug: Aspirin Chewable Tablet 162 mg Route: PO; em 10:12 Follow up: Response: No adverse reaction tw2 08:49 Drug: Lopressor 5 mg Route: IVP; Site: right antecubital; em 09:50 Follow up: Response: No adverse reaction; Blood pressure is lowered tw2 08:49 Drug: NS 0.9% 1000 ml Route: IV; Rate: 1 bolus; Site: right antecubital; em 10:05 Follow up: IV Status: Infusion continued upon admission tw2 08:50 Drug: Ativan 1 mg Route: IVP; Site: right antecubital; em 09:20 Follow up: Response: No adverse reaction; Marked relief of symptoms tw2 08:52 Drug: Lovenox 1 mg/kg Route: Sub-Q; Site: right lower abdomen; em 09:20 Follow up: Response: No adverse reaction tw2 08:53 Drug: Pepcid 20 mg Route: IVP; Site: right antecubital; em 09:05 Follow up: Response: No adverse reaction tw2 08:56 Not Given (Physician Discretion): Aspirin Chewable Tablet 324 mg PO once; 81 mg tablets em x 4 09:46 Drug: Potassium Effervescent Tablet 50 mEq Route: PO; em 10:05 Follow up: Response: No adverse reaction tw2 09:46 Drug: Zofran (Ondansetron) 4 mg Route: IVP; Site: right antecubital; em 10:05 Follow up: Response: No adverse reaction; Nausea is decreased tw2 09:47 Drug: fentaNYL (PF) 50 mcg Route: IVP; Site: right antecubital; em 10:05 Follow up: Response: No adverse reaction; Pain is decreased; RASS: Alert and Calm (0) tw2 Outcome: 08:39 Decision to Hospitalize by Provider. johnny 10:08 Admitted to Med/surg accompanied by tech, via wheelchair, room 205. tw2 10:08 Condition: stable 10:08 Instructed on the need for admit. 10:12 Patient left the ED. tw2 Signatures: Dispatcher [employer] Bruno Hackett MD MD cha Rivera Manuela Tez iXong RN RN em Wise, Tara, RN RN 2 Chante Irvin ar Corrections: (The following items were deleted from the chart) 10:10 08:00 General: Appears in no apparent distress. Behavior is anxious, tw2 tw2
[2020-04-03 08:42] LABS: Protime INR 1.1
[2020-04-03] MEDS ORDERED: ALPRAZOLAM 0.25 MG TABLET PO PRN (08:42)
[2020-04-03 08:43] LABS: Absolute Lymphocytes (CBC) 1.5 K/uL (0.7-4.9); Basophils % 1.2 % (0-1.3); Hematocrit 40.8 % (36.0-45.0); Lymphocytes % 19.2 % (15.3-44.8); MPV 8.4 fL (7.6-11.3); RBC Red Blood Cell Count 4.54 M/uL (3.86-4.86)
[2020-04-03] MEDS ORDERED: ASPIRIN 81 MG CHEWABLE TABLET ONE (08:45)
[2020-04-03] MEDS ORDERED: METOPROLOL TAR 50 MG TAB ONE (08:45)
[2020-04-03] MEDS ORDERED: METOPROLOL TARTRATE 5 MG/5 ML INJ IV ONE (08:46)
[2020-04-03] MEDS ORDERED: ENOXAPARIN 60 MG/0.6 ML SQ ONE (08:46)
[2020-04-03] MEDS ORDERED: NA CHLORIDE 0.9% 1,000 ML ONE (08:46)
[2020-04-03] MEDS ORDERED: LORazepam 2 MG/ML VIAL ONE (08:46)
[2020-04-03] MEDS ORDERED: FAMOTIDINE 20 MG/2 ML VIAL IV ONE (08:46)
[2020-04-03] MEDS ORDERED: ASPIRIN EC 81 MG TAB PO SCH (09:00)
[2020-04-03 09:03] LABS: ALT/SGPT 55 U/L (12-78); AST/SGOT 44 U/L (15-37); Albumin 3.7 g/dL (3.4-5.0); Alkaline Phosphatase 80 U/L (45-117); BUN Blood Urea Nitrogen 7 mg/dL (7-18); Bicarbonate 26 mmol/L (21-32); Bilirubin Direct < 0.1 mg/dL (0-0.2); Bilirubin Total 0.2 mg/dL (0.2-1.0); Glucose Level 109 mg/dL (74-106); Magnesium 1.9 mg/dL (1.8-2.4); NT PRO-BNP 423 pg/mL (<125); Potassium 3.2 mmol/L (3.5-5.1); Protein, Total 7.8 g/dL (6.4-8.2); Sodium Level 138 mmol/L (136-145); Troponin (Emerg Dept Use Only) < 0.02 ng/mL (0.0-0.045)
--- NOTE | 2020-04-03 09:12 | RAD REPORT ---
EXAM DESCRIPTION: RAD - Chest Single View - 04/03/2020 8:45 am CLINICAL HISTORY: CHEST PAIN Chest pain. COMPARISON: Chest Single View dated 02/25/2020; Chest Single View dated 02/24/2020 FINDINGS: Portable technique limits examination quality. The lungs are grossly clear. The heart is normal in size. No displaced fractures. IMPRESSION: No acute intrathoracic process suspected.
[2020-04-03 09:30] LABS: Urine Blood 2+ (NEG); Urine Glucose NEGATIVE (NEG); Urine Protein NEGATIVE (NEG); Urine Specific Gravity 1.015 (1.005-1.030)
[2020-04-03] MEDS ORDERED: FENTANYL CITR 100 MCG/2 ML ONE (09:56)
[2020-04-03] MEDS ORDERED: ONDANSETRON 4 MG/2 ML VIAL ONE (09:56)
[2020-04-03] MEDS ORDERED: POTASSIUM 25 MEQ EFFERV TAB ONE (09:56)
[2020-04-03 10:02] LABS: Barbiturates NEGATIVE (NEGATIVE); Benzodiazepines NEGATIVE (NEGATIVE); Cocaine NEGATIVE (NEGATIVE); METHAMPHETAM POSITIVE (NEGATIVE); Methadone NEGATIVE (NEGATIVE); Opiates NEGATIVE (NEGATIVE); Phencyclidine NEGATIVE (NEGATIVE); THC Cannibis NEGATIVE (NEGATIVE)
[2020-04-03 10:32] VITALS: BMI 27.8
[2020-04-03] MEDS: MORPHINE 4 MG/ML SYR IV PRN ×2 (11:20→16:03)
[2020-04-03] MEDS ORDERED: METOPROLOL TARTRATE 5 MG/5 ML INJ IV STA (12:48)
[2020-04-03] MEDS ORDERED: METOPROLOL TAR 50 MG TAB PO ONE (14:00)
[2020-04-03 16:50] VITALS: O2SAT 95
[2020-04-03 17:04] VITALS: BP 178/87; TEMP 98
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
[2020-04-03] MEDS ORDERED: TEMAZEPAM 15 MG CAP PO PRN (17:28)
[2020-04-03] MEDS ORDERED: METOPROLOL TAR 50 MG TAB PO SCH (21:00)
[2020-04-04] MEDS ORDERED: ENOXAPARIN 40 MG/0.4 ML SQ SCH (09:00)
--- NOTE | 2020-04-05 11:16 | EKG ---
Test Date: 2020-04-03 Test Time: 08:05:22 Veterans Contact Representative: OPAL MEASUREMENT RESULTS: Intervals: Rate: 105 IL: 122 QRSD: 96 QT: 350 QTc: 462 [place]: P: 98 IL: 122 QRS: 35 T: 6 INTERPRETIVE STATEMENTS: Sinus tachycardia with occasional premature ventricular complexes and fusion complexes with junctional escape complexes Nonspecific ST and T wave abnormality Abnormal ECG Compared to ECG 02/25/2020 17:48:59 Junctional escape complex(es) now present Fusion complex(es) now present Ventricular premature complex(es) now present Sinus rhythm no longer present Short [place] interval no longer present Prolonged QT interval no longer present ST (T wave) deviation still present Electronically Signed On 04-05-20 11:13:53 CDT by Reggie Laguna
[2020-04-05] MEDS ORDERED: NA CHLORIDE 0.9% 1,000 ML ONE (16:03)
--- NOTE | 2020-04-06 08:54 | ECHO ---
HEIGHT: 5 ft 6 in WEIGHT: 172 lb 9.6 oz DATE OF STUDY: 04/03/[address]: Paulette Mcneil MD 2-DIMENSIONAL: YES M.MODE: YES DOPPLER: YES COLOR FLOW: YES TDS: PORTABLE: DEFINITY: BUBBLE STUDY: DIAGNOSIS: HYPERTENSION CARDIAC HISTORY: CATHERIZATION: NO SURGERY: NO PROSTHETIC VALVE: NO PACEMAKER: NO MEASUREMENTS (cm) DIASTOLIC (NORMALS) SYSTOLIC (NORMALS) IVSd 0.8 (0.6-1.2) LA Diam 3.8 (1.9-4.0) LVEF 62% LVIDd 5.0 (3.5-5.7) LVIDs 3.3 (2.0-3.5) %FS 33% LVPWd 0.9 (0.6-1.2) Ao Diam 2.6 (2.0-3.7) 2 DIMENSIONAL ASSESSMENT: RIGHT ATRIUM: NORMAL LEFT ATRIUM: NORMAL RIGHT VENTRICLE: NORMAL LEFT VENTRICLE: NORMAL TRICUSPID VALVE: NORMAL MITRAL VALVE: NORMAL PULMONIC VALVE: NORMAL AORTIC VALVE: NORMAL PERICARDIAL EFFUSION: NONE AORTIC ROOT: NORMAL LEFT VENTRICULAR WALL MOTION: NORMAL DOPPLER/COLOR FLOW: NORMAL COMMENTS: NORMAL 2-DIMENSIONAL ECHOCARDIOGRAM WITH DOPPLER. NO WALL MOTION ABNORMALITY. NO EFFUSION. TECHNOLOGIST: VANGIE SANCHEZ
== END 2020-04-03 18:01 | disposition home or self-care (01) ==
LOC: ER 07:52 → ERHOLD 08:53 → 2ND 10:07
PROVIDERS: ADMIT Hospitalist; ATTEND Hospitalist
DX: R07.9 Chest pain, unspecified (principal); R00.0 Tachycardia, unspecified; I10 Essential (primary) hypertension; E78.5 Hyperlipidemia, unspecified; E87.6 Hypokalemia; F41.9 Anxiety disorder, unspecified; E03.9 Hypothyroidism, unspecified; F15.10 Other stimulant abuse, uncomplicated; F17.200 Nicotine dependence, unspecified, uncomplicated; Z20.828 Contact with and (suspected) exposure to other viral communicable diseases
CPT/HCPCS: 96361; 93005; 93306; 85025; 80048; 36415; 80320; 83735; 80156; 80329 ×2; 81025; 85610; 80061; 80076; 80307 ×8; 85730; 84443; 81003; 84484 ×2; 83880; 71045; 96375; 96372; 96374; 99285; U0002; J3010; J1650; J7030; J2405; G0378 ×2

== ENCOUNTER → 2020-04-05 | Emergency (ER) | payer OTHER ==
[~2020-04-05] MED LIST: ACETAMINOPHEN 500 MG TAB PO PRN; ENOXAPARIN 40 MG/0.4 ML SQ SCH; HYDRALAZINE HCL 20 MG/ML VIAL IV PRN; LORAZEPAM 0.5 MG TABLET PO PRN; MORPHINE 2 MG/ML SYR IV PRN; NA CHLORIDE 0.9% 1,000 ML IV SCH; NICOTINE 21 MG/PAT TD SCH; ONDANSETRON 4 MG/2 ML VIAL IV PRN; POTASSIUM 25 MEQ EFFERV TAB PO ONE
--- OUTSIDE RECORDS SUMMARY | 2020-04-05 15:34 | XMS REPORT | Continuity of Care Document ---
:1980 Author Organization [facility] t Address [address] [place] [address] Care Team Providers Name Role Phone FROILAN [...] Description Test Time Test Comments Results Result [facility] e Comments CT ABDOMEN/PELVIS 2019-08-22 NPO 4 [...] = PREGU) Negative STAT LAB URINALYSIS WITHOUT [id number] 17:08:00 Test Item Value Reference Range Interpretation Comments Color (test code = UCOLR) Light yellow Lt. Yellow A Clarity (test code = UCLAR) Clear Glucose (test code = UGLUC) Negative Negative N Bilirubin (test code = UBILI) Negative Negative N Ketones (test code = UKET) Negative Negative N Specific Stella (test code = 1.015 1.005-1.030 A USPGR) Blood (test code = UBLD) Negative Negative N PH (test code = UPH) 5.5 4.5-8.0 A Protein (test code = UPROT) Negative Negative N Urobilinogen (test code = U 0.2 >0.2 N UROB) Nitrite (test code = UNITR) Negative Negative N Leukocyte Esterase (test code = Negative Negative N ULEUK) [id number] 16:39:00 Test Item Value Reference Range Interpretation Comments Lipase (test code = LIPA) 178 U/L 73-393 [id number] 16:39:00 Test Item Value Reference Range Interpretation [...] 4 - SerumAlbu min)] EGFR if >60 Tristan[place] (test code mL/min/1.73m\ = EGFRAA) S\2 EGFR if Non- >60 Estimate d Glomerular Tristanian (test code mL/min/1.73m\ Filtrat ion Rate (eGFR) [...] kidney failure. STAT LAB CBC WITH AUTO [id number] 16:16:00 Test Item Value Reference Range Interpretation [...] 0.4 % 0.0-0.4 XR ELBOW MIN 3 [id number] 17:59:10Procedure: XR ELBOW MIN 3 VIEWSOrder Date: 08/19/2019 2:54 PMOrdering Provider: FIONA Vincentinical Indication: [id number]: Pain of left elbow jointComparison: NoneFINDINGS:There is [...]
[2020-04-05 16:39] LABS: Absolute Lymphocytes (CBC) 2.5 K/uL (0.7-4.9); Basophils % 1.3 % (0-1.3); Hematocrit 46.4 % (36.0-45.0); Lymphocytes % 18.4 % (15.3-44.8); MPV 8.4 fL (7.6-11.3)
[2020-04-05 17:18] LABS: ALT/SGPT 56 U/L (12-78); Albumin 4.3 g/dL (3.4-5.0); Alkaline Phosphatase 90 U/L (45-117); BUN Blood Urea Nitrogen 14 mg/dL (7-18); Bicarbonate 19 mmol/L (21-32); Bilirubin Direct 0.1 mg/dL (0-0.2); Bilirubin Total 0.8 mg/dL (0.2-1.0); Glucose Level 96 mg/dL (74-106); Protein, Total 8.8 g/dL (6.4-8.2); Sodium Level 137 mmol/L (136-145)
[2020-04-05 17:21] LABS: AST/SGOT 53 U/L (15-37); Potassium 3.4 mmol/L (3.5-5.1)
[2020-04-05 17:46] LABS: Creatine Phosphokinase 1668 U/L (26-192)
--- NOTE | 2020-04-05 18:42 | EDPHYS ---
Physician Documentation [facility] Name: Denise Wick Age: 39 yrs Sex: Female : 1980 Arrival Date: 04/05/2020 Time: 15:32 Bed 5 Private MD: ED Physician Wiley Mendoza HPI: 04/05 15:49 This 39 yrs old Female presents to ER via Ambulatory with complaints of Chest ps1 Pain, Breathing Difficulty. 15:49 patient is presenting with acute sympathomimetic toxidrome from overdose on Adderall. ps1 patient states that she does not know how many she has taken. Took last night. Denies taking methamphetamine today. Was at [facility] today and discharged. Denies SI/HI. Recent admission for the same. C/o palpitations and lightheaded. Patient was seen 3 times at [facility] today for same complaint. . Historical: - Allergies: 15:41 Codeine; ll1 15:41 tramadol (rash); ll1 - PMHx: 15:41 Angina; Anxiety; Bipolar disorder; cardiomyopathy; Hypertension; Hypothyroidism; ll1 - PSHx: 15:41 ; ll1 - Immunization history:: Flu vaccine status is unknown. - Social history:: Smoking status: Patient reports the use of cigarette tobacco products, smokes one-half pack cigarettes per day. ROS: 15:49 Constitutional: Negative for fever, chills, and weight loss, Eyes: Negative for injury, ps1 pain, redness, and discharge, Abdomen/GI: Negative for abdominal pain, nausea, vomiting, diarrhea, and constipation, MS/Extremity: Negative for injury and deformity, Skin: Negative for injury, rash, and discoloration, Neuro: Negative for headache, weakness, numbness, tingling, and seizure. 15:49 Cardiovascular: Positive for palpitations. 15:49 Respiratory: Positive for hyperventilating. Exam: 15:49 Constitutional: This is a well developed, well nourished patient who is awake, alert, ps1 and in no acute distress. Head/Face: Normocephalic, atraumatic. 15:49 Respiratory: Lungs have equal breath sounds bilaterally, clear to auscultation and percussion. No rales, rhonchi or wheezes noted. No increased work of breathing, no retractions or nasal flaring. Abdomen/GI: Soft, non-tender, with normal bowel sounds. No distension or tympany. No guarding or rebound. No evidence of tenderness throughout. 15:49 Eyes: Pupils: dilated, bilaterally. 15:49 Cardiovascular: Rate: tachycardic, actual rate is 130 bpm, Rhythm: regular. 15:49 Skin: Appearance: Moisture: damp. Vital Signs: 15:39 BP 124 / 105; Pulse 130; Resp 28; Temp 99.2(TE); Pulse Ox 100% ; Pain 10/10; ll1 17:04 BP 140 / 101; Pulse 119; Resp 28; Pulse Ox 100% on R/A; ph 18:00 BP 135 / 97; Pulse 101; Resp 16; Pulse Ox 100% on R/A; ph MDM: 15:53 Patient medically screened. ps1 18:42 Differential diagnosis: Sympathomimetic toxidrome, Methamphetamine Abuse, Coronary ps1 vasospasm, Rhabdomyolysis, ACS, and others. Data reviewed: vital signs, nurses notes, lab test result(s), EKG, and as a result, I will admit patient. Counseling: I had a detailed discussion with the patient and/or guardian regarding: the historical points, exam findings, and any diagnostic results supporting the discharge/admit diagnosis, lab results, the need for further work-up and treatment in the hospital. 04/05 15:47 Order name: Acetaminophen; Complete Time: 17:56 ps1 04/05 15:47 Order name: Basic Metabolic Panel; Complete Time: 17:56 ps1 04/05 15:47 Order name: CBC with Diff; Complete Time: 16:42 04/05 15:47 Order name: ETOH Level; Complete Time: 17:38 ps1 04/05 15:47 Order name: Hepatic Function; Complete Time: 17:56 ps1 04/05 15:47 Order name: Salicylate; Complete Time: 17:20 ps1 04/05 15:47 Order name: Urine Drug Screen ps1 04/05 15:48 Order name: Creatine Phosphokinase; Complete Time: 17:56 ps1 04/05 15:49 Order name: Troponin (emerg Dept Use Only); Complete Time: 17:20 ps1 04/05 18:45 Order name: COVID-19 ps1 04/05 18:57 Order name: CBC with Automated Diff EDMS 04/05 18:57 Order name: CBC with Automated Diff EDMS 04/05 18:57 Order name: Comprehensive Metabolic Panel [facility] 04/05 18:57 Order name: Comprehensive Metabolic Panel [facility] 04/05 15:47 Order name: EKG; Complete Time: 15:48 ps1 04/05 15:47 Order name: EKG - Nurse/Tech; Complete Time: 17:06 ps1 04/05 15:47 Order name: IV Saline Lock; Complete Time: 16:47 ps1 04/05 18:57 Order name: CONS Pharmacy Consult [facility] 04/05 18:57 Order name: CONS Physician Consult [facility] 04/05 18:57 Order name: Heart Healthy [facility] 04/05 18:57 Order name: EKG Electrocardiogram [facility] 04/05 18:57 Order name: EKG Electrocardiogram [facility] 04/05 18:57 Order name: Creatine Phosphokinase [facility] 04/05 18:57 Order name: Creatine Phosphokinase [facility] 04/05 18:57 Order name: Creatine Phosphokinase [facility] 04/05 18:57 Order name: Creatine Phosphokinase [facility] 04/05 18:57 Order name: Troponin I [facility] 04/05 18:57 Order name: Troponin I [facility] 04/05 18:57 Order name: Troponin I [facility] 04/05 15:47 Order name: Labs collected and sent; Complete Time: 16:47 ps1 EC:42 Rate is 102 beats/min. Rhythm is regular. QRS [place] is Normal. [place] interval is normal. ps1 QRS interval is normal. QT interval is normal. No Q waves. T waves are Normal. ST Segment is elevated in leads I, aVL, <1mm. Clinical impression: NSR w/ Non-specific ST/T Changes. Interpreted by me. Administered Medications: 16:50 Drug: NS 0.9% 1000 ml Route: IV; Rate: 1 bolus; Site: right wrist; ph 19:01 Follow up: Response: No adverse reaction; IV Status: Completed infusion; IV Intake: ph 750ml Disposition: 04/05/20 18:42 Hospitalization ordered by Monse Zavala for Observation. Preliminary diagnosis are Sympathomimetic toxidrome, Toxic effects of methamphetamines, Elevated Creatine Kinase. - Bed requested for Telemetry/MedSurg (observation). - Status is Observation. ph - Condition is Fair. - Problem is new. - Symptoms have improved. Signatures: Dispatcher [employer] ED Erika Booth, DRISS RN ph Wiley Mendoza MD MD ps1 Denisse Marin RN RN ll1 Corrections: (The following items were deleted from the chart) 16:00 15:49 patient is presenting with acute sympathomimetic toxidrome from overdose on ps1 Adderall. patient states that she does not know how many she has taken. Was at [facility] today and discharged. Denies SI/HI. Recent admission for the same. C/o palpitations and lightheaded. . ps1 19:13 18:42 Hospitalization Ordered by Monse Zavala MD for Observation. Preliminary ph diagnosis is Sympathomimetic toxidrome; Toxic effects of methamphetamines; Elevated Creatine Kinase. Bed requested for Telemetry/MedSurg (observation). Status is Observation. Condition is Fair. Problem is new. Symptoms have improved. ps1
--- NOTE | 2020-04-05 18:42 | ER ---
Nurse's Notes [facility] Name: Denise Wick Age: 39 yrs Sex: Female : 1980 Arrival Date: 04/05/2020 Time: 15:32 Bed 5 Private MD: Diagnosis: Sympathomimetic toxidrome;Toxic effects of methamphetamines;Elevated Creatine Kinase Presentation: 04/05 15:39 Chief complaint: Patient states: CP And SOB began at 4am. Just left another ER and came ll1 here. Hyperventilating, cannot sit still. Coronavirus screen: Client denies travel out of the [place] in the last 14 days. difficulty breathing, Client presents with at least one sign or symptom that may indicate coronavirus-19. Standard/surgical mask placed on the client. Ebola Screen: Patient denies travel to an Ebola-affected area in the 21 days before illness onset. Initial Sepsis Screen: Does the patient meet any 2 criteria? HR > 90 bpm. No. Patient's initial sepsis screen is negative. Does the patient have a suspected source of infection? Yes: Productive cough/pneumonia. Risk Assessment: Do you want to hurt yourself or someone else? Patient reports no desire to harm self or others. Onset of symptoms was April 05, 2020. 15:39 Method Of Arrival: Ambulatory ll1 15:39 Acuity: CHRISTINA 2 ll1 Historical: - Allergies: 15:41 Codeine; ll1 15:41 tramadol (rash); ll1 - PMHx: 15:41 Angina; Anxiety; Bipolar disorder; cardiomyopathy; Hypertension; Hypothyroidism; ll1 - PSHx: 15:41 ; ll1 - Immunization history:: Flu vaccine status is unknown. - Social history:: Smoking status: Patient reports the use of cigarette tobacco products, smokes one-half pack cigarettes per day. Screenin:03 Abuse screen: Denies threats or abuse. Denies injuries from another. Nutritional ph screening: No deficits noted. Tuberculosis screening: No symptoms or risk factors identified. Fall Risk None identified. Assessment: 15:45 Reassessment: Pt admits to taking "extra" Adderall, using meth, and drinking "a flask ph of Fireball" last night, very anxious and restless, refuses to sit on bed, states, " I went to [place] and they didn't do shit for me!! Please don't let me ." Appears to have 2 sites on arms were blood has been previously taken w/ gauze and Coban in place. General: Appears in no apparent distress. Behavior is cooperative, anxious, restless. Pain: Complains of pain in anterior aspect of right upper chest, anterior aspect of left upper chest and mid-sternal area Pain does not radiate. Neuro: Level of Consciousness is awake, alert, obeys commands, Oriented to person, place, time, situation, Reports dizziness. Cardiovascular: Reports chest pain, lightheadedness, palpitations, shortness of breath. Respiratory: Airway is patent Respiratory effort is even, Respiratory pattern is tachypnea. GI: No signs and/or symptoms were reported involving the gastrointestinal system. Derm: Skin is healthy with good turgor, Skin is pink, warm \\T\\ dry. Musculoskeletal: Circulation, motion, and sensation intact. Range of motion: intact in all extremities. 16:47 Reassessment: Pt anxious, pacing the room, hyperventilating. SpO2 >96% on RA, ph requesting medication to "even her out." Dr. Mendoza notified, no new orders given. 17:46 Reassessment: Patient appears in no apparent distress at this time. Patient and/or ph family updated on plan of care and expected duration. Pain level reassessed. Patient is alert, oriented x 3, equal unlabored respirations, skin warm/dry/pink. Pt appears to have calmed, no longer hyperventilating, c/o back pain, provider notified. 18:35 Reassessment: Patient appears in no apparent distress at this time. Patient and/or ph family updated on plan of care and expected duration. Pain level reassessed. Patient is alert, oriented x 3, equal unlabored respirations, skin warm/dry/pink. Pt sitting in bed, noted to be yawning, friend at bedside. 18:55 Reassessment: Reassessment: Went to notify pt that Dr Mendoza has placed her up for ph admission, pt found to be gone from room, IV still attached to fluid bolus and lying on table, catheter appears to be intact, checked lobby and ED parking lot pt not found, will chart out as eloped, Dr Mendoza aware of elopement. Vital Signs: 15:39 BP 124 / 105; Pulse 130; Resp 28; Temp 99.2(TE); Pulse Ox 100% ; Pain 10/10; ll1 17:04 BP 140 / 101; Pulse 119; Resp 28; Pulse Ox 100% on R/A; ph 18:00 BP 135 / 97; Pulse 101; Resp 16; Pulse Ox 100% on R/A; ph ED Course: 15:32 Patient arrived in ED. ds1 15:37 Wiley Mendoza MD is Attending Physician. ps1 15:40 Triage completed. ll1 15:40 Arm band placed on Patient placed in an exam room, on a stretcher. ll1 16:15 Missed attempt(s): 22 gauge in right antecubital area. Bleeding controlled, band aid ph applied, catheter tip intact. 16:20 Inserted saline lock: 24 gauge in right hand, using aseptic technique. ph 16:50 Erika Booth RN is Primary Nurse. ph 17:03 Patient has correct armband on for positive identification. Bed in low position. Call ph light in reach. Side rails up X 1. Pulse ox on. NIBP on. Verbal reassurance given. 17:08 EKG done, by ED staff, reviewed by Wiley Mendoza MD. dh3 17:46 Notified ED physician of a critical lab result(s). [id number] sv 17:49 No provider procedures requiring assistance completed. Patient maintains SpO2 ph saturation greater than 95% on room air. 18:40 Monse Zavala MD is Hospitalizing Provider. ps1 Administered Medications: 16:50 Drug: NS 0.9% 1000 ml Route: IV; Rate: 1 bolus; Site: right wrist; ph 19:01 Follow up: Response: No adverse reaction; IV Status: Completed infusion; IV Intake: ph 750ml Intake: 19:01 IV: 750ml; Total: 750ml. ph Outcome: 18:42 Decision to Hospitalize by Provider. ps1 19:00 Eloped from patient exam room, after seeing physician Time discovered patient gone: ph April 05, 2020 at 18:55 19:00 Condition: stable 19:13 Patient left the ED. ph Signatures: Lisa Brandon RN RN Edilia Pettit ds1 Erika Booth RN RN Anita Lion [facility] Wiley Mendoza MD MD ps1 Denisse Marin RN RN ll1 Corrections: (The following items were deleted from the chart) 15:42 15:39 Acuity: CHRISTINA 3 ll1 ll1 17:06 15:50 NS 0.9% 1000 ml IV at 1 bolus in right wrist ph ph 18:59 18:35 Reassessment: Patient appears in no apparent distress at this time. Patient ph and/or family updated on plan of care and expected duration. Pain level reassessed. Patient is alert, oriented x 3, equal unlabored respirations, skin warm/dry/pink. ph 18:59 18:55 Reassessment: ph ph 19:13 18:55 Reassessment: Went to notify pt that Dr Mendoza has placed her up for admission, ph pt found to be gone from room, IV still attached to fluid bolus and lying on table, catheter appears to be intact, checked lobby and ED parking lot pt not found, will chart out as eloped Reassessment: Went to notify pt that Dr Mendoza has placed her up for admission, pt found to be gone from room, IV still attached to fluid bolus and lying on table, catheter appears to be intact, checked lobby and ED parking lot pt not found, will chart out as eloped ph
[2020-04-05 19:26] VITALS: TEMP 99.2; O2SAT 100
[2020-04-05 19:33] VITALS: BP 135/97
--- NOTE | 2020-04-06 07:43 | EKG ---
Test Date: 2020-04-05 Test Time: 18:12:31 Student Loan Counselor: KARIN MEASUREMENT RESULTS: Intervals: Rate: 102 CO: 112 QRSD: 92 QT: 376 QTc: 490 [place]: P: 28 CO: 112 QRS: 32 T: 11 INTERPRETIVE STATEMENTS: Sinus tachycardia Nonspecific ST and T wave abnormality Abnormal ECG Compared to ECG 04/03/2020 08:05:22 Fusion complex(es) no longer present Ventricular premature complex(es) no longer present ST (T wave) deviation still present Electronically Signed On 04-06-20 07:42:45 CDT by Reggie Laguna
== END | disposition left against medical advice (07) ==
LOC: ER 15:31 → ERHOLD 18:52 → UNDOADMIN 18:52
DX: T44.901A Poisoning by unspecified drugs primarily affecting the autonomic nervous system, accidental (unintentional), initial encounter (principal); T43.625A Adverse effect of amphetamines, initial encounter; R74.8 Abnormal levels of other serum enzymes; Z88.5 Allergy status to narcotic agent; I10 Essential (primary) hypertension; F31.9 Bipolar disorder, unspecified; F17.210 Nicotine dependence, cigarettes, uncomplicated
CPT/HCPCS: 36415; 80048; 80076; 80320; 80329; 82550; 84484; 85025; 93005; 96360; 96361; 99284

== ENCOUNTER 2020-04-09 03:48 | Emergency (ER) | payer OTHER ==
--- OUTSIDE RECORDS SUMMARY | 2020-04-09 03:50 | XMS REPORT | Continuity of Care Document ---
:1980 Author Organization [facility] t Address [address] [place] [address] Care Team Providers Name Role Phone FROILAN [...] Description Test Time Test Comments Results Result [facility] e Comments CT ABDOMEN/PELVIS 2019-08-22 NPO [...] = PREGU) Negative STAT LAB URINALYSIS WITHOUT [id number] 17:08:00 Test Item Value Reference Range Interpretation Comments Color (test code = UCOLR) Light yellow Lt. Yellow A Clarity (test code = UCLAR) Clear Glucose (test code = UGLUC) Negative Negative N Bilirubin (test code = UBILI) Negative Negative N Ketones (test code = UKET) Negative Negative N Specific [place] (test code = 1.015 1.005-1.030 A USPGR) Blood (test code = UBLD) Negative Negative N PH (test code = UPH) 5.5 4.5-8.0 A Protein (test code = UPROT) Negative Negative N Urobilinogen (test code = U 0.2 >0.2 N UROB) Nitrite (test code = UNITR) Negative Negative N Leukocyte Esterase (test code = Negative Negative N ULEUK) [id number] 16:39:00 Test Item Value Reference Range Interpretation Comments Lipase (test code = LIPA) 178 U/L 73-393 [id number] 16:39:00 Test Item Value Reference Range Interpretation [...] 4 - SerumAlbu min)] EGFR if >60 [place] (test code mL/min/1.73m\ = EGFRAA) S\2 EGFR if Non- >60 Estimate d Glomerular [place] (test code mL/min/1.73m\ Filtrat ion Rate (eGFR) [...] kidney failure. STAT LAB CBC WITH AUTO [id number] 16:16:00 Test Item Value Reference Range Interpretation [...] 0.4 % 0.0-0.4 XR ELBOW MIN 3 [id number] 17:59:10Procedure: XR ELBOW MIN 3 VIEWSOrder Date: 08/19/2019 2:54 PMOrdering Provider: FIONA Vincentinical Indication: [id number]: Pain of left elbow jointComparison: NoneFINDINGS:There is [...]
[2020-04-09] MEDS ORDERED: LORazepam 2 MG/ML VIAL ONE (05:14)
[2020-04-09 05:22] LABS: Absolute Lymphocytes (CBC) 2.3 K/uL (0.7-4.9); Basophils % 1.3 % (0-1.3); Hematocrit 42.5 % (36.0-45.0); Lymphocytes % 31.2 % (15.3-44.8); MPV 8.2 fL (7.6-11.3); RBC Red Blood Cell Count 4.72 M/uL (3.86-4.86)
[2020-04-09 05:24] LABS: Protime INR 0.98
[2020-04-09 05:26] LABS: ALT/SGPT 56 U/L (12-78); AST/SGOT 36 U/L (15-37); Albumin 4.1 g/dL (3.4-5.0); Alkaline Phosphatase 79 U/L (45-117); BUN Blood Urea Nitrogen 6 mg/dL (7-18); Bicarbonate 24 mmol/L (21-32); Bilirubin Direct < 0.1 mg/dL (0-0.2); Bilirubin Total 0.3 mg/dL (0.2-1.0); Glucose Level 93 mg/dL (74-106); Magnesium 1.9 mg/dL (1.8-2.4); NT PRO-BNP 166 pg/mL (<125); Potassium 3.6 mmol/L (3.5-5.1); Protein, Total 7.8 g/dL (6.4-8.2); Sodium Level 138 mmol/L (136-145); Troponin (Emerg Dept Use Only) < 0.02 ng/mL (0.0-0.045)
--- NOTE | 2020-04-09 06:36 | ER ---
Nurse's Notes [facility] Name: Denise Wick Age: 39 yrs Sex: Female : 1980 Arrival Date: 04/09/2020 Time: 03:49 Bed 7 Private MD: Diagnosis: Chest pain, unspecified;Substance Abuse Presentation: 04/09 03:54 Chief complaint: EMS states: was toned for chest pain and . Pt was seen at [facility] yesterday for the same complaint. Coronavirus screen: Client denies travel out of the [place] in the last 14 days. difficulty breathing, Client presents with at least one sign or symptom that may indicate coronavirus-19. Standard/surgical mask placed on the client. Ebola Screen: Patient negative for fever greater than or equal to 101.5 degrees Fahrenheit, and additional compatible Ebola Virus Disease symptoms Patient denies exposure to infectious person. Initial Sepsis Screen: Does the patient meet any 2 criteria? HR > 90 bpm. Does the patient have a suspected source of infection? No. Patient's initial sepsis screen is negative. Risk Assessment: Do you want to hurt yourself or someone else? Patient reports no desire to harm self or others. Onset of symptoms was April 09, 2020. 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 - Social history:: Smoking status: Patient reports the use of cigarette tobacco products, smokes two packs cigarettes per day. Patient uses alcohol, only on a social basis. street drugs, Methamphetamine (Meth). Screenin:57 Abuse screen: Denies threats or abuse. Denies injuries from another. Nutritional wh screening: No deficits noted. Tuberculosis screening: No symptoms or risk factors identified. Fall Risk None identified. Assessment: 04:10 General: Appears uncomfortable, Behavior is restless, uncooperative. Pain: Complains of rv pain in chest Pain does not radiate. Pain currently is 10 out of 10 on a pain scale. Pain began suddenly. Neuro: Level of Consciousness is awake, alert, obeys commands, Oriented to person, place, time, situation. Cardiovascular: Rhythm is sinus tachycardia with unifocal PVCs. Respiratory: Airway is patent Respiratory pattern is tachypnea Breath sounds are clear bilaterally. Derm: Skin is intact. 06:23 Reassessment: patient went to sleep after administration of medicine. vital signs rv stable. Respiratory: Airway is patent Respiratory effort is even, unlabored, Respiratory pattern is regular. Vital Signs: 04:12 BP 165 / 102; Pulse 107; Resp 29; Temp 98.1; Pulse Ox 100% ; rv 05:00 BP 159 / 106; Pulse 90; Resp 24; Pulse Ox 100% on R/A; rv 06:00 BP 129 / 89; Pulse 99; Resp 20; Pulse Ox 99% ; rv ED Course: 03:49 Patient arrived in ED. cl3 03:49 Daniel Chowdhury MD is Attending Physician. 7 03:56 Triage completed. wh 03:57 Patient has correct armband on for positive identification. Bed in low position. Call light in reach. Side rails up X 1. credit collection specialist on. Pulse ox on. NIBP on. 03:59 Arm band placed on right wrist. wh 04:01 Marta Chávez is Primary Nurse. wh 04:10 Brennen Hinton RN is Primary Nurse. rv 04:12 Patient maintains SpO2 saturation greater than 95% on room air. rv 05:06 Initial lab(s) drawn, by me, sent to lab. Inserted saline lock: 20 gauge in right rv antecubital area, using aseptic technique. Blood collected. 06:22 No provider procedures requiring assistance completed. rv 06:48 IV discontinued, intact, bleeding controlled, No redness/swelling at site. Pressure rv dressing applied. Administered Medications: 05:06 Drug: Ativan 1 mg Route: IVP; Site: right antecubital; rv 06:22 Follow up: Response: No adverse reaction; RASS: Light sedation (-2) rv Outcome: 06:36 Discharge ordered by . kel 06:48 Discharged to home ambulatory, with family. rv 06:48 Condition: good 06:48 Discharge instructions given to patient, Instructed on discharge instructions, follow up and referral plans. Demonstrated understanding of instructions, follow-up care. 06:48 Patient left the ED. rv Signatures: Marta Chávez Ronaldo, RN RN Donnell Haley cl3 Daniel Chowdhury MD MD 7
--- NOTE | 2020-04-09 06:36 | EDPHYS ---
Physician Documentation [facility] Name: Denise Wick Age: 39 yrs Sex: Female : 1980 Arrival Date: 04/09/2020 Time: 03:49 Bed 7 Private MD: ED Physician Daniel Chowdhury HPI: 04/09 04:56 This 39 yrs old Female presents to ER via EMS with complaints of Chest Pain. mh7 04:56 The patient or guardian reports chest pain that is located primarily in the chest mh7 diffusely. The pain does not radiate. Associated signs and symptoms: Pertinent positives: shortness of breath, Pertinent negatives: abdominal pain, cough, diaphoresis, dizziness, lower extremity pain, lower extremity swelling, lightheadedness, nausea, near syncope, palpitations, recent travel, syncope, vomiting. 04:58 Associated signs and symptoms: Pertinent negatives: headache. The chest pain is mh7 described as sharp. Duration: The patient or guardian reports multiple episodes, that are intermittent, that wax and wane, with no pattern. Modifying factors: The symptoms are alleviated by nothing. the symptoms are aggravated by nothing. Severity of pain: At its worst the pain was moderate yesterday, in the emergency department the pain has improved moderately. The patient has experienced similar episodes in the past, multiple times. 04:59 The patient has been recently seen at the [facility] Emergency 7 Department, last week, Seen at another ER yesterday. 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 - Social history:: Smoking status: Patient reports the use of cigarette tobacco products, smokes two packs cigarettes per day. Patient uses alcohol, only on a social basis. street drugs, Methamphetamine (Meth). ROS: 04:59 Constitutional: Negative for fever, chills, and weight loss, Eyes: Negative for injury, mh7 pain, redness, and discharge, ENT: Negative for injury, pain, and discharge, Neck: Negative for injury, pain, and swelling, Abdomen/GI: Negative for abdominal pain, nausea, vomiting, diarrhea, and constipation, Back: Negative for injury and pain, : Negative for injury, bleeding, discharge, and swelling, MS/Extremity: Negative for injury and deformity, Skin: Negative for injury, rash, and discoloration, Neuro: Negative for headache, weakness, numbness, tingling, and seizure, Psych: Negative for depression, anxiety, suicide ideation, homicidal ideation, and hallucinations, Allergy/Immunology: Negative for hives, rash, and allergies, Endocrine: Negative for neck swelling, polydipsia, polyuria, polyphagia, and marked weight changes, Hematologic/Lymphatic: Negative for swollen nodes, abnormal bleeding, and unusual bruising. Exam: 04:59 Head/Face: Normocephalic, atraumatic. Eyes: Pupils equal round and reactive to light, mh7 extra-ocular motions intact. Lids and lashes normal. Conjunctiva and sclera are non-icteric and not injected. Cornea within normal limits. Periorbital areas with no swelling, redness, or edema. Neck: Trachea midline, no thyromegaly or masses palpated, and no cervical lymphadenopathy. Supple, full range of motion without nuchal rigidity, or vertebral point tenderness. No Meningismus. Chest/axilla: Normal chest wall appearance and motion. Nontender with no deformity. No lesions are appreciated. 04:59 Respiratory: Lungs have equal breath sounds bilaterally, clear to auscultation and percussion. No rales, rhonchi or wheezes noted. No increased work of breathing, no retractions or nasal flaring. Abdomen/GI: Soft, non-tender, with normal bowel sounds. No distension or tympany. No guarding or rebound. No evidence of tenderness throughout. Back: No spinal tenderness. No costovertebral tenderness. Full range of motion. Skin: Warm, dry with normal turgor. Normal color with no rashes, no lesions, and no evidence of cellulitis. MS/ Extremity: Pulses equal, no cyanosis. Neurovascular intact. Full, normal range of motion. Neuro: Awake and alert, GCS 15, oriented to person, place, time, and situation. Cranial nerves II-XII grossly intact. Motor strength 5/5 in all extremities. Sensory grossly intact. Cerebellar exam normal. Normal gait. 04:59 Constitutional: The patient appears in no acute distress, alert, awake, anxious. 04:59 Cardiovascular: Rate: tachycardic, Rhythm: regular, Pulses: no pulse deficits are appreciated, Heart sounds: normal, normal S1and S2, Edema: is not appreciated, JVD: is not appreciated. 04:59 Psych: Behavior/mood is cooperative, anxious, Affect is animated, Oriented to person, place, time, Patient has no thoughts/intents to harm self or others. Judgement / Insight is normal. Memory is normal. Delusions/hallucinations are not present. Vital Signs: 04:12 BP 165 / 102; Pulse 107; Resp 29; Temp 98.1; Pulse Ox 100% ; rv 05:00 BP 159 / 106; Pulse 90; Resp 24; Pulse Ox 100% on R/A; rv 06:00 BP 129 / 89; Pulse 99; Resp 20; Pulse Ox 99% ; rv MDM: 04:06 Patient medically screened. 7 06:33 Differential diagnosis: acute myocardial infarction, acute pericarditis, anxiety, mh7 coronary artery disease chest wall pain, congestive heart failure costochondritis, pericarditis, pneumonia, pneumothorax. HEART Score: History: Slightly Suspicious (0), ECG: Non specific repolarization disturbance / LBTB / PM (1), Age: < or = 45 years (0), Risk Factors: 1 or 2 risk factors (1), [Hypertension] Troponin: < or = 1 x Normal Limit (0), Total Score = 2. Data reviewed: vital signs, nurses notes, EMS record, old medical records, lab test result(s), CBC, electrolytes, urinalysis, EKG, radiologic studies, plain films. Data interpreted: Pulse oximetry: on room air is 99 %. Interpretation: normal. Counseling: I had a detailed discussion with the patient and/or guardian regarding: the historical points, exam findings, and any diagnostic results supporting the discharge/admit diagnosis, lab results, radiology results, the need for outpatient follow up, to return to the emergency department if symptoms worsen or persist or if there are any questions or concerns that arise at home. 04/09 03:59 Order name: Basic Metabolic Panel 04/09 03:59 Order name: CBC with Diff 04/09 03:59 Order name: LFT's 04/09 03:59 Order name: Magnesium 04/09 03:59 Order name: NT PRO-BNP 04/09 03:59 Order name: PT-INR 04/09 03:59 Order name: Troponin (emerg Dept Use Only) 04/09 03:59 Order name: Urine Drug Screen 04/09 05:26 Order name: Basic Metabolic Panel; Complete Time: 06:28 EDMS 04/09 05:26 Order name: Liver (Hepatic) Function; Complete Time: 06:28 EDMS 04/09 05:26 Order name: Troponin (Emerg Dept Use Only); Complete Time: 06:28 EDMS 04/09 05:26 Order name: NT PRO-BNP; Complete Time: 06:28 EDMS 04/09 05:26 Order name: Magnesium; Complete Time: 06:28 EDMS 04/09 05:31 Order name: CBC with Automated Diff; Complete Time: 06:28 EDMS 04/09 03:59 Order name: XRAY Chest (1 view) 04/09 03:59 Order name: EKG; Complete Time: 04:00 04/09 03:59 Order name: Cardiac monitoring; Complete Time: 04: 04/09 03:59 Order name: EKG - Nurse/Tech; Complete Time: 04: 04/09 03:59 Order name: IV Saline Lock; Complete Time: 05:06 04/09 03:59 Order name: Labs collected and sent; Complete Time: 04:41 04/09 03:59 Order name: O2 Per Protocol; Complete Time: 04: 04/09 03:59 Order name: O2 Sat Monitoring; Complete Time: 04: 04/09 05:32 Order name: Protime (+INR); Complete Time: 06:28 EDMS Administered Medications: 05:06 Drug: Ativan 1 mg Route: IVP; Site: right antecubital; rv 06:22 Follow up: Response: No adverse reaction; RASS: Light sedation (-2) rv Disposition: 10/15/20 06:36 Discharged to Home. Impression: Chest pain, unspecified, Substance Abuse. - Condition is Stable. - Discharge Instructions: Nonspecific Chest Pain, [id number]. - Medication Reconciliation Form, Thank You Letter, Antibiotic Education, Prescription Opioid Use form. - Follow up: Private Physician; When: 1 - 2 days; Reason: Worsening of condition, Recheck today's complaints, Continuance of care, Re-evaluation by your physician. - Problem is an ongoing problem. - Symptoms have improved. Signatures: Dispatcher [employer] EDMS Marta Chávez Brennen Hinton, RN RN rv Daniel Chowdhury MD MD mh7 Corrections: (The following items were deleted from the chart) 06:48 06:36 04/09/2020 06:36 Discharged to Home. Impression: Chest pain, unspecified; rv Substance Abuse. Condition is Stable. Forms are Medication Reconciliation Form, Thank You Letter, Antibiotic Education, Prescription Opioid Use. Follow up: Private Physician; When: 1 - 2 days; Reason: Worsening of condition, Recheck today's complaints, Continuance of care, Re-evaluation by your physician. Problem is an ongoing problem. Symptoms have improved. mh7
[2020-04-09 06:58] VITALS: TEMP 98.1
[2020-04-09 07:01] VITALS: BP 129/89; O2SAT 99
--- NOTE | 2020-04-09 07:04 | EKG ---
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
--- NOTE | 2020-04-09 08:52 | RAD REPORT ---
EXAM DESCRIPTION: RAD - Chest Single View - 04/09/2020 4:27 am CLINICAL HISTORY: CHEST PAIN Chest pain. COMPARISON: Chest Single View dated 04/03/2020; Chest Single View dated 02/25/2020; Chest Single View d ated 02/24/2020 FINDINGS: Portable technique limits examination quality. The lungs are grossly clear. The heart is normal in size. No displaced fractures. IMPRESSION: No acute intrathoracic process suspected.
== END 2020-04-09 06:48 | disposition home or self-care (01) ==
LOC: ER 03:48
DX: F19.10 Other psychoactive substance abuse, uncomplicated (principal); I10 Essential (primary) hypertension; F31.9 Bipolar disorder, unspecified; E03.9 Hypothyroidism, unspecified; F17.210 Nicotine dependence, cigarettes, uncomplicated; Z88.5 Allergy status to narcotic agent
CPT/HCPCS: 36415; 71045; 80048; 80076; 83735; 83880; 84484; 85025; 85610; 93005; 96374; 99285

== ENCOUNTER 2020-07-09 18:33 | Observation (INO) | payer OTHER ==
--- OUTSIDE RECORDS SUMMARY | 2020-07-09 18:35 | XMS REPORT | Summary of Care ---
:1980 Author Organization [facility] Address [address] [place] [id number] Care Team Providers Name Role Phone Sherry Darya Primary Care Provider ELIZA Licona Insurance Hmo Reason for Visit Reason Comments Chest Pain Auth/Cert Status Reason Specialty Diagnoses / Referred By Referred To Procedures Contact Contact Emergency Medicine [facility] r[facility] Dept [address] [place] [phone] Fax: Encounter Details Date Type Department Care Team Description 04/10/2020 Emergency [facility] Opal Bonds FNP [address] [place] [address]. [place] [address] Chest pain, Department Andrew Rosado MD [address] [place] [address] [id number] [place], [place] [id number] unspecified type [address] [place] [address] (Primary Dx) [place] [address] Allergies Active Allergy Reactions Severity Noted Date Comments Zolpidem Tartrate Unknown - See comments 11/12/2006 Hallucinations Azithromycin Rash 05/01/2015 Codeine Unknown - See comments 07/12/2019 Esomeprazole Magnesium Rash 05/01/2015 Tramadol Rash 05/01/2015 documented as of this encounter (statuses as of 04/10/2020) Medications Medication Sig Dispensed Refills Start Date End Date Status gabapentin 300 mg Take 300 mg by 0 Active capsule mouth 2 (two) times daily. levothyroxine 100 mcg Take 100 mcg by 0 Active tablet mouth daily. meloxicam 7.5 mg tablet Take 7.5 mg by 0 Active mouth daily. metoprolol tartrate 25 Take 25 mg by 0 Active mg tablet mouth daily. omeprazole 20 mg capsule Take 20 mg by 0 Active mouth daily. pravastatin 20 mg tablet Take 20 mg by 0 Active mouth at bedtime. triamcinolone Apply 0.1 % to 0 A ctive acetonide/l.s.b. area(s) 2 (two) (ARISTOCORT A TOPICAL) times daily. HYDROcodone-acetaminophe Take 1 tablet by 15 tablet 0 07/12/19 20 Active n 5-325 mg mouth every 6 tabletIndications: (six) hours as Generalized abdominal needed for Pain pain (scale 1-3). documented as of this encounter (statuses as of 04/10/2020) Active Problems Problem Noted Date Premature rupture of membranes in , antepartu m 11/09/2006 documented as of this encounter (statuses as of 04/10/2020) Social History Tobacco Use Types Packs/Day Years Used Date Never Assessed Sex Assigned at Date Recorded Not on file COVID-19 Exposure Response Date Recorded In the last month, have you been in contact with No / Unsure 04/10/2020 8:35 PM CDT someone who was confirmed or suspected to have Coronavirus / COVID-19? documented as of this encounter Last Filed Vital Signs Vital Sign Reading Time Taken Comments Blood Pressure 126/94 04/10/2020 9:59 PM CDT Pulse 104 04/10/2020 9:59 PM CDT Temperature 36.6 C (97.8 F) 04/10/2020 9:59 PM CDT Respiratory Rate 19 04/10/2020 9:59 PM CDT Oxygen Saturation 98% 04/10/2020 9:59 PM CDT Inhaled Oxygen Concentration - - Weight 63.5 kg (140 lb) 04/10/2020 8:37 PM CDT Height - - Body Mass Index 22.6 02/25/2020 1:20 PM CDT documented in this encounter Discharge Instructions InstructionsDayAndrew mishra MD - 04/10/2020 Your diagnosis is: chest pain Your treatments today included: Orders Placed This Encounter Procedures TROPONIN I Your prescriptions today are: none You will need to follow-up with your Primary Care Provider: 2-3 days If you do not have a primary care provider, you will need to arrange for your own. If you need assistance with this, the discharge planners can help you identify resources appropriate for you. See further medical attention for: IF you develop any new concerning symptoms documented in this encounter ED Notes Carola Amaro, DRISS - 04/10/2020 8:35 PM CDTDarishabh Wick is a 39 year old female who presents to the ED via EMS with c/o chest pain x 2 days. 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 Hx Afib. Pt aaox4, breathing even/unlabored in NAD Andrew Mccarthy MD - 04/10/2020 8:[address] 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 According to patient, the pain is located to left side of chest, constant, sharp/pressure, located to left side of chest and radiating to right side of chest and 8/10. Patient denies any cough, SOB, abd pain, nausea with vomiting. Patient states she was seen at [facility] last night but left AMA. 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 No pertinent past medical history. Tetanus received in last 5 years: Unknown Childhood immunizations: Up-to-date Allergies: Allergies Allergen Reactions Ambien [Zolpidem Tartrate] Unknown - See comments Hallucinations Azithromycin Rash Codeine Unknown - See comments Nexium [Esomeprazole Magnesium] Rash Tramadol Rash Past Social History: Substance & Sexual Activity No substance use or sexual activity history on file. Past Surgical History: History reviewed. No pertinent surgical history. Review of Systems: Review of Systems Constitutional: Negative for chills and fever. Eyes: Negative for visual disturbance. Respiratory: Negative for shortness of breath. Cardiovascular: Positive for chest pain. Gastrointestinal: Negative for abdominal pain. Genitourinary: Negative for dysuria. Musculoskeletal: Negative for back pain. Neurological: Negative for weakness. Physical Exam: ED Triage Vitals [04/10/202036] Weight 63.5 kg (140 lb) Actual or estimated Estimated by patient/family report Height BP 127/90 Pulse 104 Resp 20 Temp 36.3 C (97.3 F) Temp src SpO2 100 % Measured on Room air Physical Exam Vitals signs and nursing note reviewed. Constitutional: General: She is not in acute distress. Appearance: Normal appearance. She is normal weight. She is not ill- appearing, toxic-appearing ordiaphoretic. HENT: Head: Normocephalic and atraumatic. Right Ear: External ear normal. Left Ear: External ear normal. Nose: Nose normal. Eyes: Extraocular Movements: Extraocular movements intact. Conjunctiva/sclera: Conjunctivae normal. Neck: Musculoskeletal: Normal range of motion and neck supple. Cardiovascular: Rate and Rhythm: Regular rhythm. Pulses: Normal pulses. Heart sounds: Normal heart sounds. Pulmonary: Effort: Pulmonary effort is normal. Breath sounds: Normal breath sounds. Abdominal: General: Bowel sounds are normal. There is no distension. Palpations: Abdomen is soft. Tenderness: There is no abdominal tenderness. There is no guarding. Musculoskeletal: Normal range of motion. Skin: General: Skin is warm. Capillary Refill: Capillary refill takes less than 2 seconds. Neurological: General: No focal deficit present. Mental Status: She is alert and oriented to person, place, and time. Mental status is at baseline. Psychiatric: Mood and Affect: Mood normal. Behavior: Behavior normal. Thought Content: Thought content normal. Radiology: No results found for this visit on 04/10/20. Lab Results (24h): Recent Results (from the past 24 hour(s)) CBC WITH DIFF Collection Time: 04/09/20 11:11 PM Result Value Ref Range WBC 10.77 4.30 - 11.10 10*3/L RBC 4.74 3.93 - 5.25 10*6/L HGB 14.5 11.6 - 15.0 g/dL HCT 42.9 35.7 - 45.2 % MCV 90.5 80.6 - 95.5 fL MCH 30.6 25.9 - 32.8 pg MCHC 33.8 31.6 - 35.1 g/dL RDW-SD 41.7 39.0 - 49.9 fL RDW-CV 12.5 12.0 - 15.5 % PLT 330 166 - 358 10*3/L MPV 9.5 9.5 - 12.9 fL NRBC/100 WBC 0.0 0.0 - 10.0 /100 WBCs NRBC x10^3 <0.01 10*3/L GRAN MAT (NEUT) % 67.8 % IMM GRAN % 0.50 % LYMPH % 24.0 % MONO % 6.6 % EOS % 0.6 % BASO % 0.5 % GRAN MAT x10^3(ANC) 7.32 (H) 1.88 - 7.09 10*3/uL IMM GRAN x10^3 0.05 0.00 - 0.06 10*3/uL LYMPH x10^3 2.58 1.32 - 3.29 10*3/uL MONO x10^3 0.71 0.33 - 0.92 10*3/uL EOS x10^3 0.06 0.03 - 0.39 10*3/uL BASO x10^3 0.05 0.01 - 0.07 10*3/uL COMP. METABOLIC PANEL (55123) Collection Time: 04/09/20 11:11 PM Result Value Ref Range NA 135 135 - 145 mmol/L K 3.4 (L) 3.5 - 5.0 mmol/L CL 99 98 - 108 mmol/L CO2 TOTAL 24 23 - 31 mmol/L AGAP 12 2 - 16 BUN 8 7 - 23 mg/dL GLUCOSE 119 (H) 70 - 110 mg/dL CREATININE 0.71 0.50 - 1.04 mg/dL TOTAL BILI 0.5 0.1 - 1.1 mg/dL CALCIUM 10.9 (H) 8.6 - 10.6 mg/dL T PROTEIN 8.1 6.3 - 8.2 g/dL ALBUMIN 4.4 3.5 - 5.0 g/dL ALK PHOS 85 34 - 122 U/L ALTv 51 (H) 5 - 35 U/L AST(SGOT) 42 (H) 13 - 40 U/L eGFR Calculation (Non-) 91.6 mL/min/1.73m2 eGFR Calculation () 111.1 mL/min/1.73m2 LIPASE Collection Time: 04/09/20 11:11 PM Result Value Ref Range LIPASE 193 0 - 220 U/L MAGNESIUM Collection Time: 04/09/20 11:11 PM Result Value Ref Range MAGNESIUM 1.7 1.7 - 2.4 mg/dL N-TERMINAL PRO-BNP Collection Time: 04/09/20 11:11 PM Result Value Ref Range NT-proBNP 309 (H) <=125 pg/mL TROPONIN I Collection Time: 04/09/20 11:11 PM Result Value Ref Range TROPONIN I 0.018 <=0.034 ng/mL D-DIMER Collection Time: 04/09/20 11:14 PM Result Value Ref Range D-DIMER <0.27 <0.41 g/mL (FEU) COVID-19 (ID NOW RAPID TESTING) Collection Time: 04/09/20 11:15 PM Specimen: NASOPHARYNGEAL SWAB Result Value Ref Range SARS-CoV-2 Rapid ID NOW Not Detected Not Detected ADC / [facility] - DRUG SCREEN TRIAGE Collection Time: 04/10/20 12:19 AM Result Value Ref Range BENZO U Presumptive Positive (A) Negative ANN U Negative Negative AMPHET Presumptive Positive (A) Negative THC Negative Negative METHADONE Negative Negative Meth U Presumptive Positive (A) Negative OPIATES Negative Negative Cocaine Metabolite Negative Negative PROPOXY Negative Negative Tric U Negative Negative PCP Negative Negative OXYCOD Negative Negative TROPONIN I Collection Time: 04/10/20 8:53 PM Result Value Ref Range TROPONIN I 0.013 <=0.034 ng/mL EKG: Sinus rhythm with short MA Normal axis Rate: 91 EKG changed when compared with previous EKG Orders and Treatments: Orders Placed This Encounter Procedures TROPONIN I Orders Placed This Encounter Medications ketorolac (TORADOL) injection 15 mg ED COURSE 39 y/o female presenting to ED with c/o constant chest pain x past 2 days. Off noted, patient was seen and evaluated in ED at [place] last night for same symptoms. On chart review, blood work was unremarkable. Trop and D dimer negative. covid also done and not detected. CXR unremarkable as well. Drugtox positive for meth and denzo's. EKG and trop done today in setting of constant chest pain x 2 days, WNL as well. Patient DC home and instructed to follow up with PCP MDM: MDM Reviewed: vitals, nursing note and previous chart Reviewed previous: labs, ECG and x-ray Interpretation: ECG and labs Scoring Tools: No data recorded Diagnosis/Impression: ICD-10-CM ICD-9-CM 1. Chest pain, unspecified type R07.9 786.50 Disposition/Condition: ED Disposition None Discharge Medications: Patient's Medications START taking these medications No medications on file CONTINUE taking these medications which have NOT CHANGED GABAPENTIN 300 MG CAPSULE Take 300 mg by mouth 2 (two) times daily. HYDROCODONE-ACETAMINOPHEN 5-325 MG TABLET Take 1 tablet by mouth every 6 (six) hours as needed for Pain (scale 1-3). LEVOTHYROXINE 100 MCG TABLET Take 100 mcg by mouth daily. MELOXICAM 7.5 MG TABLET Take 7.5 mg by mouth daily. METOPROLOL TARTRATE 25 MG TABLET Take 25 mg by mouth daily. OMEPRAZOLE 20 MG CAPSULE Take 20 mg by mouth daily. PRAVASTATIN 20 MG TABLET Take 20 mg by mouth at bedtime. TRIAMCINOLONE ACETONIDE/L.S.B. (ARISTOCORT A TOPICAL) Apply 0.1 % to area(s) 2 (two) times daily. START taking Modified Medications as Prescribed No medications on file STOP taking these medications No medications on file Follow-up: Electronically signed by: Andrew Rosado MD 04/10/2020 9:34 PM documented in this encounter Miscellaneous Notes ED Nurse Note - Cassia Piña RN - 04/10/2020 10:02 PM CDTPatient AAOx4. No distress noted. Respiratory even/unabored. Ambulatory with steady gait. Patient verbalizes understanding of discharge teaching. Patient refuses assistance to vehicle. D Nurse Note - Rowan Burnett RN - 04/10/2020 9:25 PM CDTPatient requesting pain and nausea MD [place] notified and present at bedside. D Nurse Note - Rowan Burnett RN - 04/10/2020 9:04 PM CDTProvided patient with a blanket. D Nurse Note - Cassia Piña RN - 04/10/2020 9:00 PM CDTResidents at patient bedside. D Nurse Note - Cassia Piña RN - 04/10/2020 8:41 PM CDTDanielle Nancy Wick is a 39 year old female presents to ED c/o chest pain x2 days, worse today. Patient was seen at [facility] and left AMA. Hx: cardiomyopathy, a-fib, HTN, hypercholesterolemia, h ypothyroidism, angina. Patient has 20g to RAC via EMS. Nitro x3, ASA en route. Patient AAOx4. No distress noted. Resp even/unlabored. Heart rate regular, tachy. Patient describes pain as intermittent and pressure like. Bowel sounds x4. Abdomeon soft/non tender. Peripheral pulses x4. Patient moves all e xtremities well. Patient placed on continuous cardiac, pulse ox and BP monitoring. Patient resting comfortably in bed at this time. documented in this encounter Plan of Treatment Health Maintenance Due Date Last Done Comments Depression Screening 1992 DTaP,Tdap,and Td Vaccines (1 - 1999 Tdap) PAP SMEAR 09/05/2009 09/05/2006 INFLUENZA VACCINE (#1) 2020 PNEUMOCOCCAL 0-64 YEARS COMBINED Aged Out No longer eligible based on SERIES patient's age to complete this topic documented as of this encounter Procedures Procedure Name Priority Date/Time Associated Diagnosis Comme nts TROPONIN I STAT 04/10/2020 8:53 PM Chest pain, Results for this CDT unspecified type procedure a re in the results section. EKG-12 LEAD Routine 04/10/2020 8:46 PM CDT documented in this encounter Results TROPONIN I (04/10/2020 8:53 PM CDT) Pathologist Sig nature TROPONIN I 0.013 <=0.034 ng/mL [facility] Specimen Blood - VENOUS Narrative Performed At Equal or Less than 0.034 ng/ml---Normal [facility] Note: Cardiac troponin begins to rise 3-4 hours after the onset of ischemia. Repeat in 4-6 hours if the sample w as drawn within 3-4 hours of the onset of the symptom and found normal. Between 0.035 and 0.120 ng/mL--- Borderline. Questiona ble myocardial injury or necrosis Note: Serial measurement may be necessary to confirm o r exclude the diagnosis of myocardial injury or necrosis ; Clinical correlation (symptoms, EKGs, imaging studies, and others) required; Repeat in 4-6 hours if clinically indicated. Equal or Higher than 0.121 ng/mL---Abnormal. Myocardia l Injury or Necrosis Likely Biotin has been reported to cause a negative bias, int erpret results relative to patient's use of biotin. Performing Organization Address City/State/Zipcode Phone Number [facility] CLIA: [id number] [place] [address] [place] [address] documented in this encounter Visit Diagnoses Diagnosis Chest pain, unspecified type - Primary documented in this encounter Administered Medications Medication Order MAR Action Action Date Dose Rate Site ketorolac (TORADOL) injection 15 Given 04/10/2020 9:59 PM CDT 1 5 mg mg 15 mg, Slow IV Push, ONCE, 1 dose, Mon04/10/20 at 2245, Routine, member services representative approving Restricted medication: ANDREW ROSADO documented in this encounter Insurance Payer Benefit Plan / Subscriber ID Effective Phone Address T ype Group Dates [employer] [id number] [address] [place] [id number] [place] [address] documented as of this encounter
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
--- OUTSIDE RECORDS SUMMARY | 2020-07-09 18:35 | XMS REPORT | Continuity of Care Document ---
:1980 Author Organization [facility] t Address [address] [place] [address] Care Team Providers Name Role Phone Dee NAQVI, M Attending Clinician FROILAN ZAPATA Attending Clinician Unavailable DRE PARKER Attending Clinician Unavailable FROILAN ZAPATA Admitting Clinician Unavailable DRE PARKER Admitting Clinician Unavailable Problems This patient has no known problems. Allergies, Adverse Reactions, Alerts This patient has no known allergies or adverse reactions. Medications This patient has no known medications. Procedures This patient has no known procedures. Encounters Start End Encounter Admission Attending Care Care Encounter Source Date/Time Date/Time Type Type Clinicians Facility Department ID 2020-04-15 2020-04-15 Transition Francisco Price [id number] 00:00:00 00:00:00 of Care Rafaela Morin [id number] [place] [id number] Results Test Description Test Time Test Comments Results Result Sourc e Comments CT ABDOMEN/PELVIS 2019-08-22 NPO 4 [...] Verónica Quesada MD 08/22/20196:11 PMDictated By: VERÓNICA QUESAADDate: 08/22/2019 18:11 STAT LAB , URINE 2019-08-22 17:09:00 Test Item Value Reference Range Interpretation Comme nts (Urine) (test code = PREGU) Negative STAT LAB URINALYSIS WITHOUT [id number] 17:08:00 Test Item Value Reference Range Interpretation Comments Color (test code = UCOLR) Light yellow Lt. Yellow A Clarity (test code = UCLAR) Clear Glucose (test code = UGLUC) Negative Negative N Bilirubin (test code = UBILI) Negative Negative N Ketones (test code = UKET) Negative Negative N Specific [place] (test code = 1.015 1.005-1.030 A USPGR) Blood (test code = UBLD) Negative Negative N PH (test code = UPH) 5.5 4.5-8.0 A Protein (test code = UPROT) Negative Negative N Urobilinogen (test code = U 0.2 >0.2 N UROB) Nitrite (test code = UNITR) Negative Negative N Leukocyte Esterase (test code = Negative Negative N ULEUK) [id number] 16:39:00 Test Item Value Reference Range Interpretation Comments Lipase (test code = LIPA) 178 U/L 73-393 [id number] 16:39:00 Test Item Value Reference Range Interpretation [...] 4 - SerumAlbu min)] EGFR if >60 [place] (test code mL/min/1.73m\ = EGFRAA) S\2 EGFR if Non- >60 Estimate d Glomerular [place] (test code mL/min/1.73m\ Filtrat ion Rate (eGFR) [...] kidney failure. STAT LAB CBC WITH AUTO [id number] 16:16:00 Test Item Value Reference Range Interpretation [...] 0.4 % 0.0-0.4 XR ELBOW MIN 3 [id number] 17:59:10Procedure: XR ELBOW MIN 3 VIEWSOrder Date: 08/19/2019 2:54 PMOrdering Provider: FIONA Vincentinical Indication: [id number]: Pain of left elbow jointComparison: NoneFINDINGS:There is [...]
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
--- OUTSIDE RECORDS SUMMARY | 2020-07-09 18:36 | XMS REPORT | Summary of Care ---
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 04/11/20 at 1204, Until Discontinued, Routine, Pain (scale 1-3) Given 04/12/2020 11:51 PM CDT 650 mg Given 04/12/2020 5:23 AM CDT 650 mg ALPRAZolam (XANAX) tablet 0.25 mg Given 04/14/2020 8:25 AM CDT 0.25 mg 0.25 mg, Oral, BID, First dose on 04/12/20 at 2000, Until Discontinued, Routine Given 04/13/2020 8:10 PM CDT 0.25 mg Given 04/13/2020 8:18 AM CDT 0.25 mg carBAMazepine (TEGRETOL) tablet 200 mg Given 04/14/2020 8:25 AM CDT 200 mg 200 mg, Oral, Q12H, First dose on 04/11/20 at 2200, Until Discontinued, Routine Given 04/13/2020 9:17 PM CDT 200 mg Given 04/13/2020 8:17 AM CDT 200 mg docusate (COLACE) capsule 100 mg Given 04/14/2020 8:25 AM CDT 100 mg 100 mg, Oral, DAILY, First dose on 04/11/20 at 0900, Until Discontinued, Routine Given 04/13/2020 8:17 AM CDT 100 mg Given 04/12/2020 8:39 AM CDT 100 mg levothyroxine (SYNTHROID) tablet 100 mcg Given 04/14/2020 6:25 AM CDT 100 mcg 100 mcg, Oral, QAM-0600, First dose on 04/11/20 at 1215, Until Discontinued, Routine Given 04/13/2020 5:54 AM CDT 100 mcg Given 04/12/2020 5:23 AM CDT 100 mcg methocarbamoL (ROBAXIN) tablet 500 mg Given 04/14/2020 3:57 PM CDT 500 mg 500 mg, Oral, QID, First dose on 04/11/20 at 2000, Until Discontinued, Routine Given 04/14/2020 12:11 PM CDT 500 mg Given 04/14/2020 8:25 AM CDT 500 mg metoprolol tartrate (LOPRESSOR) tablet 2 5 mg Given 04/13/2020 8:10 PM CDT 25 mg 25 mg, Oral, BID, First dose on 04/11/20 at 2000, Until Discontinued, Routine Given 04/12/2020 8:39 AM CDT 25 mg omeprazole (PRILOSEC) capsule 20 mg Given 04/14/2020 8:25 AM CDT 20 mg 20 mg, Oral, DAILY, First dose on 04/11/20 at 1215, Until Discontinued, Routine Given 04/13/2020 8:17 AM CDT 20 mg Given 04/12/2020 8:38 AM CDT 20 mg ziprasidone (GEODON) injection 20 mg 20 mg, Intramuscular, Q6HPRN, Starting S un 04/12/20 at 1320, Until 04/19/20 at 1319, Routine, Agitation Medication Order MAR Action Action Date Dose Rate Site D5W 0.45% NaCl (1/2NS) 1 L + New Bag 04/12/2020 8:10 AM CDT 125 mL/hr KCL 20 mEq IV Infusion, at 125 mL/hr, CONTINUOUS, Starting 04/11/20 at 1215, Until 04/13/20 at 0857, Routine New Bag 04/11/2020 11:07 PM CDT 125 mL/hr New Bag 04/11/2020 12:44 PM CDT 125 mL/hr HYDROcodone-acetaminophen (NORCO 5) 5-325 Given 2019 6:30 PM CDT 1 tablet mg tablet 1 tablet 1 tablet, Oral, ONCE, 1 dose, 04/11/20 at 1830, Routine iohexol (OMNIPAQUE 350 BULK-100 mL) Given 04/11/2020 7:35 AM CD T 120 mL injection 120 mL 120 mL, Intravenous, ONCE, 1 dose, 04/11/20 at 0745, Routine lactated ringers IV infusion New Bag 04/11/2020 7:46 AM CDT 1,000 mL 999 mL/hr 1,000 mL at 999 mL/hr, 1,000 mL, IV Infusion, ONCE, 1 dose, 04/11/20 at 0700, STAT documented in this encounter Insurance Payer Benefit Plan / Subscriber ID Effective Phone Address T ype Group Dates [employer] [id number] 2019-[address] [place] [id number] [place] [address] documented as of this encounter
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
[2020-07-09 19:15] LABS: Absolute Lymphocytes (CBC) 1.6 K/uL (0.7-4.9); Basophils % 1.2 % (0-1.3); Hematocrit 46.1 % (36.0-45.0); Lymphocytes % 22.2 % (15.3-44.8); MPV 8.1 fL (7.6-11.3); RBC Red Blood Cell Count 5.07 M/uL (3.86-4.86)
[2020-07-09 19:16] LABS: Protime INR 1.01
[2020-07-09 19:31] LABS: ALT/SGPT 87 U/L (12-78); AST/SGOT 69 U/L (15-37); Albumin 4.4 g/dL (3.4-5.0); Alkaline Phosphatase 119 U/L (45-117); BUN Blood Urea Nitrogen 6 mg/dL (7-18); Bicarbonate 29 mmol/L (21-32); Bilirubin Direct < 0.1 mg/dL (0-0.2); Bilirubin Total 0.3 mg/dL (0.2-1.0); Glucose Level 107 mg/dL (74-106); Magnesium 2.2 mg/dL (1.8-2.4); NT PRO-BNP 271 pg/mL (<125); Protein, Total 9.4 g/dL (6.4-8.2); Sodium Level 139 mmol/L (136-145); Troponin (Emerg Dept Use Only) < 0.02 ng/mL (0.0-0.045)
[2020-07-09] MEDS ORDERED: MORPHINE 4 MG/ML SYR ONE (19:33)
[2020-07-09 19:34] LABS: Potassium 2.6 mmol/L (3.5-5.1)
[2020-07-09] MEDS ORDERED: NA CHLORIDE 0.9% 1,000 ML ONE (19:34)
[2020-07-09] MEDS ORDERED: FAMOTIDINE 20 MG/2 ML VIAL IV ONE (19:34)
[2020-07-09] MEDS ORDERED: DIAZEPAM 10 MG/2 ML INJ SYRINGE ONE (19:34)
--- NOTE | 2020-07-09 19:43 | RAD REPORT ---
EXAM DESCRIPTION: Ramiro Single View07/09/2020 7:18 pm CLINICAL HISTORY: Chest pain COMPARISON: March 2020 FINDINGS: The lungs appear clear of acute infiltrate. The heart is normal size IMPRESSION: No acute abnormalities displayed
[2020-07-09] MEDS ORDERED: METOPROLOL TARTRATE 5 MG/5 ML INJ IV ONE (20:15)
[2020-07-09] MEDS ORDERED: METOPROLOL TAR 25 MG TAB ONE (20:15)
[2020-07-09] MEDS ORDERED: ASPIRIN 81 MG CHEWABLE TABLET ONE (20:15)
[2020-07-09] MEDS ORDERED: POTASSIUM 25 MEQ EFFERV TAB ONE (20:15)
[2020-07-09] MEDS ORDERED: ENOXAPARIN 60 MG/0.6 ML SQ ONE (20:16)
[2020-07-09] MEDS ORDERED: KCL 20 MEQ/100 mL IVPB 20 MEQ/100 ML BAG IV ONE (20:16)
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
--- NOTE | 2020-07-09 20:32 | EDPHYS ---
Physician Documentation [facility] Name: Denise Wick Age: 40 yrs Sex: Female : 1980 Arrival Date: 07/09/2020 Time: 18:34 Bed External Waiting Private MD: ED Physician Bruno Ferrell HPI: 07/09 20:01 This 40 yrs old Female presents to ER via Wheelchair with complaints of Chest johnny Pain, Arm Pain, Shortness Of Breath. 20:01 The patient or guardian reports chest pain that is located primarily in the anterior johnny chest wall. Onset: yesterday. The pain does not radiate. Associated signs and symptoms: Pertinent positives: shortness of breath. The chest pain is described as a pressure, squeezing. Modifying factors: The symptoms are alleviated by nothing. the symptoms are aggravated by nothing. Severity of pain: At its worst the pain was moderate in the emergency department the pain has improved moderately. The patient has not experienced similar symptoms in the past. Historical: - Allergies: 19:02 Codeine; jl7 19:02 tramadol (rash); jl7 - PMHx: 19:02 Angina; Anxiety; Bipolar disorder; cardiomyopathy; Hypertension; Hypothyroidism; jl7 - PSHx: 19:02 ; jl7 - Immunization history:: Adult Immunizations up to date. - Social history:: Smoking status: unknown. - Family history:: not pertinent. ROS: 20:01 Constitutional: Negative for fever, chills, and weight loss, Eyes: Negative for injury, johnny pain, redness, and discharge, ENT: Negative for injury, pain, and discharge, Neck: Negative for injury, pain, and swelling, Respiratory: Negative for shortness of breath, cough, wheezing, and pleuritic chest pain, Abdomen/GI: Negative for abdominal pain, nausea, vomiting, diarrhea, and constipation, Back: Negative for injury and pain, : Negative for injury, bleeding, discharge, and swelling, MS/Extremity: Negative for injury and deformity, Skin: Negative for injury, rash, and discoloration, Neuro: Negative for headache, weakness, numbness, tingling, and seizure, Psych: Negative for depression, anxiety, suicide ideation, homicidal ideation, and hallucinations, Allergy/Immunology: Negative for hives, rash, and allergies, Endocrine: Negative for neck swelling, polydipsia, polyuria, polyphagia, and marked weight changes, Hematologic/Lymphatic: Negative for swollen nodes, abnormal bleeding, and unusual bruising. 20:01 Cardiovascular: Positive for chest pain, of the chest. Exam: 20:01 Constitutional: This is a well developed, well nourished patient who is awake, alert, johnny and in no acute distress. Head/Face: Normocephalic, atraumatic. Eyes: Pupils equal round and reactive to light, extra-ocular motions intact. Lids and lashes normal. Conjunctiva and sclera are non-icteric and not injected. Cornea within normal limits. Periorbital areas with no swelling, redness, or edema. ENT: Nares patent. No nasal discharge, no septal abnormalities noted. Tympanic membranes are normal and external auditory canals are clear. Oropharynx with no redness, swelling, or masses, exudates, or evidence of obstruction, uvula midline. Mucous membranes moist. Neck: Trachea midline, no thyromegaly or masses palpated, and no cervical lymphadenopathy. Supple, full range of motion without nuchal rigidity, or vertebral point tenderness. No Meningismus. Chest/axilla: Normal chest wall appearance and motion. Nontender with no deformity. No lesions are appreciated. Respiratory: Lungs have equal breath sounds bilaterally, clear to auscultation and percussion. No rales, rhonchi or wheezes noted. No increased work of breathing, no retractions or nasal flaring. Abdomen/GI: Soft, non-tender, with normal bowel sounds. No distension or tympany. No guarding or rebound. No evidence of tenderness throughout. Back: No spinal tenderness. No costovertebral tenderness. Full range of motion. Skin: Warm, dry with normal turgor. Normal color with no rashes, no lesions, and no evidence of cellulitis. MS/ Extremity: Pulses equal, no cyanosis. Neurovascular intact. Full, normal range of motion. Neuro: Awake and alert, GCS 15, oriented to person, place, time, and situation. Cranial nerves II-XII grossly intact. Motor strength 5/5 in all extremities. Sensory grossly intact. Cerebellar exam normal. Normal gait. Psych: Awake, alert, with orientation to person, place and time. Behavior, mood, and affect are within normal limits. 20:01 Cardiovascular: Rate: tachycardic, Rhythm: regular, Pulses: Pulses are 4+ in bilateral radial, brachial, femoral, popliteal, posterior tibial and and dorsalis pedis arteries.. Heart sounds: normal, Edema: is not appreciated, JVD: is not appreciated. Vital Signs: 18:37 BP 159 / 108; Pulse 121; Resp 22; Temp 98.1(TE); Pulse Ox 100% on R/A; ca1 19:53 BP 151 / 111; Pulse 112; Resp 20; Pulse Ox 98% ; ea 19:56 Weight 68.04 kg; rv MDM: 19:35 Patient medically screened. johnny 20:12 Differential diagnosis: abnormal EKG, acute pericarditis, anxiety, congestive heart johnny failure pancreatitis, pleurisy, pneumonia, stable angina, unstable angina. HEART Score: History: Moderately Suspicious (1), ECG: Non specific repolarization disturbance / LBTB / PM (1), Age: < or = 45 years (0), Risk Factors: > or = 3 Risk factors for atherosclerotic disease (2), [Hypertension] [Active Smoker] [+ Family HX] Troponin: < or = 1 x Normal Limit (0). The patient was given aspirin in the Emergency Department. The patient's deep vein thrombosis risk score was calculated as follows: Total Score: 0. This patient was found to be at low risk for a deep vein thrombosis by using the Well's assessment criteria. The patient's pulmonary embolism risk score was calculated as follows: Total Score: 0-2 points. This patient was found to be at low risk for a pulmonary embolism by using the Well's assessment criteria. ADEBAYO Risk Score: TOTAL SCORE = 0. Data reviewed: vital signs, nurses notes, lab test result(s), EKG, radiologic studies, plain films. Data interpreted: puppy trainer: rate is 112 beats/min, rhythm is regular, Pulse oximetry: is 98 %. Interpretation: normal. Test interpretation: by ED physician or midlevel provider: ECG, plain radiologic studies. Counseling: I had a detailed discussion with the patient and/or guardian regarding: the historical points, exam findings, and any diagnostic results supporting the discharge/admit diagnosis, lab results, radiology results, the need for outpatient follow up, the need for further work-up and treatment in the hospital. 07/09 18:47 Order name: Basic Metabolic Panel; Complete Time: 19:48 kdr 07/09 18:47 Order name: CBC with Diff; Complete Time: 19:48 kdr 07/09 18:47 Order name: LFT's; Complete Time: 19:48 kdr 07/09 18:47 Order name: Magnesium; Complete Time: 19:48 kdr 07/09 18:47 Order name: NT PRO-BNP; Complete Time: 19:48 kdr 07/09 18:47 Order name: PT-INR; Complete Time: 19:48 kdr 07/09 18:47 Order name: Troponin (emerg Dept Use Only); Complete Time: 19:48 kdr 07/09 18:47 Order name: XRAY Chest (1 view); Complete Time: 19:48 kdr 07/09 18:51 Order name: UDS kdr 07/09 18:51 Order name: ETOH Level; Complete Time: 19:48 kdr 07/09 20:00 Order name: TSH johnny 07/09 20:00 Order name: Lipase johnny 07/09 21:19 Order name: COVID-19 sg 07/09 18:47 Order name: EKG; Complete Time: 18:49 kdr 07/09 18:47 Order name: Cardiac monitoring; Complete Time: 19:01 kdr 07/09 18:47 Order name: EKG - Nurse/Tech; Complete Time: 19:01 kdr 07/09 18:47 Order name: IV Saline Lock; Complete Time: 19:01 kdr 07/09 18:47 Order name: Labs collected and sent; Complete Time: 19:01 kdr 07/09 18:47 Order name: O2 Per Protocol; Complete Time: 19:00 kdr 07/09 18:47 Order name: O2 Sat Monitoring; Complete Time: 19:00 kdr Administered Medications: 18:52 CANCELLED (Physician Discretion): Lopressor 5 mg IVP every 5 minutes; Hold for SBP < iw 100 or HR < 60. x3 19:13 CANCELLED (Physician Discretion): Aspirin Chewable Tablet 324 mg PO once; 81 mg tablets iw x 4 19:13 Not Given (Physician Discretion): PlaVIX 300 mg PO once iw 19:30 Drug: Pepcid 20 mg Route: IVP; Site: right antecubital; ea 21:26 Follow up: Response: No adverse reaction ea 19:31 Drug: morphine 4 mg {Note: rass 0.} Route: IVP; Site: right antecubital; ea 21:25 Follow up: Response: No adverse reaction ea 19:31 Drug: Valium 5 mg Route: IVP; Site: right antecubital; ea 21:28 Follow up: Response: No adverse reaction ea 19:32 Drug: NS 0.9% 1000 ml Route: IV; Rate: 1 bolus; Site: right antecubital; ea 21:26 Follow up: Response: No adverse reaction; IV Status: Completed infusion; IV Intake: ea 1000ml 20:21 Drug: Potassium Chloride 20 mEq Route: IV; Rate: per protocol; Site: right antecubital; ea 20: Drug: Lopressor 5 mg Route: IVP; Site: right antecubital; ea 21:28 Follow up: Response: No adverse reaction ea 20: Drug: Lopressor 25 mg Route: PO; ea 21:28 Follow up: Response: No adverse reaction ea 20: Drug: Aspirin Chewable Tablet 324 mg Route: PO; ea 21:28 Follow up: Response: No adverse reaction ea 20: Drug: Potassium Effervescent Tablet 50 mEq Route: PO; ea 21:28 Follow up: Response: No adverse reaction ea : Drug: Lovenox 1 mg/kg Route: Sub-Q; Site: right lower abdomen; ea 21:28 Follow up: Response: No adverse reaction ea 21:57 Drug: Norvasc 5 mg Route: PO; ea 21:57 Drug: morphine 2 mg Route: IVP; Site: right forearm; ea 21:57 Drug: Zofran (Ondansetron) 4 mg Route: IVP; Site: right forearm; ea Disposition: 07/09/20 22:48 Patient has left against medical advice. - Patients states they are going to Home. - Condition is Stable. Follow up: Private Physician; Reason: Recheck today's complaints, Re-evaluation by your physician. - Problem is chronic. - Symptoms are resolved. Signatures: Dispatcher [employer] Dariana Lopez RN RN mw Gay, Steven, RN RN sg Anderson, Corey, MD MD cha Rittger, Kevin, MD MD kdr Leal, Jahala, RN RN jl7 Cindy Grant RN RN ea Williams, Irene RN iw Corrections: (The following items were deleted from the chart) 18:52 18:50 Lopressor 5 mg IVP every 5 minutes; Hold for SBP < 100 or HR < 60. x3 ordered. kdriw 19:13 18:50 Aspirin Chewable Tablet 324 mg PO once; 81 mg tablets x 4 ordered. kdr iw 20:36 20:30 Hospitalization Ordered by Paulette Mcneil MD for Observation. Preliminary johnny diagnosis is Chest pain, unspecified; Abuse of non-psychoactive substances; Adverse effect of amphetamines; Tobacco abuse counseling; Tobacco use. Bed requested for Telemetry/MedSurg (observation). Status is Observation. Condition is Fair. Problem is new. Symptoms have improved. johnny 21:08 20:36 07/09/2020 20:30 Hospitalization Ordered by Paulette Mcneil MD for Observation. johnny Preliminary diagnosis is Chest pain, unspecified; Abuse of non-psychoactive substances; Adverse effect of amphetamines; Tobacco abuse counseling; Tobacco use; Hypokalemia. Bed requested for Telemetry/MedSurg (observation). Status is Observation. Condition is Fair. Problem is new. Symptoms have improved. johnny 21:19 21:08 07/09/2020 20:30 Hospitalization Ordered by Navneet Martinez for Observation. mw Preliminary diagnosis is Chest pain, unspecified; Abuse of non-psychoactive substances; Adverse effect of amphetamines; Tobacco abuse counseling; Tobacco use; Hypokalemia. Bed requested for Telemetry/MedSurg (observation). Status is Observation. Condition is Fair. Problem is new. Symptoms have improved. johnny 22:34 21:19 07/09/2020 20:30 Hospitalization Ordered by Navneet Martinez for Observation. sg Preliminary diagnosis is Chest pain, unspecified; Abuse of non-psychoactive substances; Adverse effect of amphetamines; Tobacco abuse counseling; Tobacco use; Hypokalemia. Bed requested for [facility] ER HOLD. Status is Observation. Condition is Fair. Problem is new. Symptoms have improved. mw
[2020-07-09] MEDS ORDERED: HYDRALAZINE HCL 20 MG/ML VIAL IV PRN (21:50)
[2020-07-09] MEDS ORDERED: MORPHINE 2 MG/ML SYR ONE (22:08)
[2020-07-09] MEDS ORDERED: ONDANSETRON 4 MG/2 ML VIAL ONE (22:08)
[2020-07-09] MEDS ORDERED: AMLODIPINE 5 MG TAB ONE (22:09)
[2020-07-09 22:26] LABS: Thyroid Stimulating Hormone 2.79 uIU/mL (0.360-3.740)
[2020-07-09 22:54] VITALS: TEMP 98.1
[2020-07-09 22:55] VITALS: BP 151/111; O2SAT 98
--- NOTE | 2020-07-10 04:58 | P.HP ---
Certification for Inpatient Patient admitted to: Observation With expected LOS: <2 Midnights Patient will require the following post-hospital care: None Practitioner: I am a practitioner with admitting privileges, knowledge of patient current condition, hospital course, and medical plan of care. Services: Services provided to patient in accordance with Admission requirements found in Title 42 Section 412.3 of the Code of Federal Regulations <Barrie Jarvis - Last Filed: 07/10/20 04:53> Patient History Date of Service: 07/10/20 Reason for admission: Chest Pain History of Present Illness: This is a 40 y/o female with history of cardiomyopathy, hypertension, and hypothyroidism that presented to ED tonight with complaints of chest pain. Patient worked up in ED and found to have no acute findings on ecg, xray, or first round troponin. Patient stated that she had smoked methamphetamines twice in the last couple of days which she normally dose not do. Medicine consulted at that time for admission. After seeing patient patient left AMA in ED Home medications list reviewed: Yes - Past Medical/Surgical History Has patient received pneumonia vaccine in the past: No Diabetic: No -: Hypertension -: Hypothyroidism -: Hyperlipidemia -: c section - Social History Smoking Status: Current every day smoker Smoking therapy provided: Yes Patient receptive to therapy: No Alcohol use: Yes CD- Drugs: Yes Caffeine use: Yes Place of Residence: Home <Barrie Jarvis - Last Filed: 07/10/20 04:53> Date of Service: 07/10/20 <philippe koehler - Last Filed: 07/10/20 18:19> Allergies codeine Allergy (Verified 04/03/20 10:43) Itching/Hives/Rash Home Medications: Alprazolam [Xanax] 0.25 mg PO Q8H PRN #30 tablet 04/03/20 Alprazolam [Xanax] 1 tab PO DAILY 04/03/20 Aspirin [Aspirin EC 81 MG] 81 mg PO DAILY #30 tablet. 04/03/20 Atorvastatin Calcium [Lipitor] 40 mg PO DAILY #30 tablet 04/03/20 Gabapentin 1 tab PO BID 04/03/20 Hydrocodone/Acetaminophen [Vicodin Hp 10-325 mg Tablet] 1 tab PO BID 04/03/20 Levothyroxine [Synthroid*] 1 tab PO DAILY 04/03/20 Metoprolol Tartrate [Lopressor*] 50 mg PO BID #60 tab 04/03/20 Nitroglycerin [Nitrostat] 1 tab PO SEECOM PRN 04/03/20 carBAMazepine [Tegretol] 1 tab PO BID 04/03/20 hydroCHLOROthiazide [Hydrochlorothiazide*] 12.5 mg PO DAILY #30 cap 04/03/20 Review of Systems General: Unremarkable Eyes: Unremarkable ENT: As per HPI Respiratory: Unremarkable Cardiovascular: Chest Pain Gastrointestinal: Unremarkable Genitourinary: Unremarkable Musculoskeletal: Unremarkable Integumentary: Unremarkable Neurological: Unremarkable Lymphatics: Unremarkable <JorgedhavalBarrie - Last Filed: 07/10/20 04:53> Physical Examination - Vital Signs Temperature: 98.1 F Blood Pressure: 151/111 Pulse: 112 Respirations: 20 - Physical Exam General: Alert, In no apparent distress, Oriented x3, Cooperative HEENT: PERRLA, Mucous membr. moist/pink, EOMI Neck: Supple, 2+ carotid pulse no bruit, JVD not distended Respiratory: Clear to auscultation bilaterally, Normal air movement Cardiovascular: No edema, Normal pulses, Regular rate/rhythm, Normal S1 S2, No gallops, No rubs, No murmurs Capillary refill: <2 Seconds Gastrointestinal: Normal bowel sounds, Soft and benign, Non-distended, No ascites, No tenderness, No masses, No rebound, No guarding Musculoskeletal: No clubbing, No swelling, No contractures, No erythema, No tenderness, No warmth Integumentary: No rashes, No breakdown, No significant lesion, No tenderness/swelling, No erythema, No warmth, No cyanosis Neurological: Normal gait, Normal speech, Normal strength at 5/5 x4 extr, Normal tone, Sensation intact, Cranial nerves 3-12 intact, Normal affect Lymphatics: No axilla or inguinal lymphadenopathy - Studies Laboratory Data (last 24 hrs) 07/09/20 20:00: Lipase 134 07/09/20 19:00: PT 11.9, INR 1.01 07/09/20 19:00: WBC 7.1, Hgb 15.5 H, Hct 46.1 H, Plt Count 366 07/09/20 19:00: Sodium 139, Potassium 2.6 L*, BUN 6 L, Creatinine 0.80, Glucose 107 H, Magnesium 2.2, Total Bilirubin 0.3, AST 69 H, ALT 87 H, Alkaline Phosphatase 119 H <Barrie Jarvis - Last Filed: 07/10/20 04:53> - Studies Laboratory Data (last 24 hrs) 07/09/20 20:00: Lipase 134 07/09/20 19:00: PT 11.9, INR 1.01 07/09/20 19:00: WBC 7.1, Hgb 15.5 H, Hct 46.1 H, Plt Count 366 07/09/20 19:00: Sodium 139, Potassium 2.6 L*, BUN 6 L, Creatinine 0.80, Glucose 107 H, Magnesium 2.2, Total Bilirubin 0.3, AST 69 H, ALT 87 H, Alkaline Phosphatase 119 H <philippe koehler - Last Filed: 07/10/20 18:19> Assessment and Plan - Problems (Diagnosis) (1) Chest pain, rule out acute myocardial infarction Status: Acute (2) Dyslipidemia Status: Acute (3) Hypertension Status: Acute - Plan Patient left AMA while in ED after we evaluated her and was in process of admitting her to telemetry floor. Discharge Plan: Home Plan to discharge in: 24 Hours - Advance Directives Does patient have a Living Will: No Does patient have a Durable POA for Healthcare: No - Code Status/Comfort Care Code Status Assessed: Yes Code Status: Full Code Critical Care: No Time Spent Managing Pts Care (In Minutes): 70 <Barrie Jarvis - Last Filed: 07/10/20 04:53> Physician Review Additional Text: I am told patient left AMA in the ED. <philippe koehler - Last Filed: 07/10/20 18:19>
--- NOTE | 2020-07-10 06:19 | EKG ---
Test Date: 2020-07-09 Test Time: 18:42:56 Medical Records Specialist: VICENTA MEASUREMENT RESULTS: Intervals: Rate: 119 OH: 124 QRSD: 84 QT: 340 QTc: 478 [place]: P: 73 [place]: 124 QRS: 66 T: -20 INTERPRETIVE STATEMENTS: Age and gender specific ECG analysis Sinus tachycardia with occasional premature ventricular complexes Septal infarct, age undetermined Lateral injury pattern ACUTE NC / STEMI Abnormal ECG Compared to ECG 04/09/2020 04:01:33 Ventricular premature complex(es) now present Myocardial infarct finding now present Right-axis deviation no longer present ST (T wave) deviation no longer present T-wave abnormality no longer present Electronically Signed On 07-10-20 06:17:58 INSURANCE COUNSEL by Reggie Laguna
== END 2020-07-09 22:54 | disposition left against medical advice (07) ==
LOC: ER 18:33 → ERHOLD 22:12
PROVIDERS: ADMIT Internal Medicine; ATTEND Internal Medicine
DX: R07.9 Chest pain, unspecified (principal); I10 Essential (primary) hypertension; E03.9 Hypothyroidism, unspecified; E78.5 Hyperlipidemia, unspecified; I42.9 Cardiomyopathy, unspecified; F17.200 Nicotine dependence, unspecified, uncomplicated; Z53.20 Procedure and treatment not carried out because of patient's decision for unspecified reasons; R94.31 Abnormal electrocardiogram [ECG] [EKG]
CPT/HCPCS: 93005; 85025; 80048; 36415; 80320; 83735; 85610; 80076; 84443; 84484; 83690; 83880; 71045; 96372; 99285; J3480; J3360; J1650; J2270; J7030; J2405; G0378

== ENCOUNTER 2020-07-09 23:56 | Emergency (ER) | payer SELFPAY ==
--- OUTSIDE RECORDS SUMMARY | 2020-07-09 23:58 | XMS REPORT | Continuity of Care Document ---
:1980 Author Organization [facility] t Address [address] [place] [address] Care Team Providers Name Role Phone Dee [...] 2020-04-15 2020-04-15 Transition Francisco Price [id number] 00:00:00 00:00:00 of Care Rafaela Morin [id number] Wyatt [phone] Results Test Description Test Time Test [...] = PREGU) Negative STAT LAB URINALYSIS WITHOUT [id number] 17:08:00 Test Item Value Reference Range Interpretation Comments Color (test code = UCOLR) Light yellow Lt. Yellow A Clarity (test code = UCLAR) Clear Glucose (test code = UGLUC) Negative Negative N Bilirubin (test code = UBILI) Negative Negative N Ketones (test code = UKET) Negative Negative N Specific [place] (test code = 1.015 1.005-1.030 A USPGR) Blood (test code = UBLD) Negative Negative N PH (test code = UPH) 5.5 4.5-8.0 A Protein (test code = UPROT) Negative Negative N Urobilinogen (test code = U 0.2 >0.2 N UROB) Nitrite (test code = UNITR) Negative Negative N Leukocyte Esterase (test code = Negative Negative N ULEUK) [id number] 16:39:00 Test Item Value Reference Range Interpretation Comments Lipase (test code = LIPA) 178 U/L 73-393 [id number] 16:39:00 Test Item Value Reference Range Interpretation [...] 4 - SerumAlbu min)] EGFR if >60 [place] (test code mL/min/1.73m\ = EGFRAA) S\2 EGFR if Non- >60 Estimate d Glomerular [place] (test code mL/min/1.73m\ Filtrat ion Rate (eGFR) [...] kidney failure. STAT LAB CBC WITH AUTO [id number] 16:16:00 Test Item Value Reference Range Interpretation [...] 0.4 % 0.0-0.4 XR ELBOW MIN 3 [id number] 17:59:10Procedure: XR ELBOW MIN 3 VIEWSOrder Date: 08/19/2019 2:54 PMOrdering Provider: FIONA Vincentinical Indication: [id number]: Pain of left elbow jointComparison: NoneFINDINGS:There is [...]
--- NOTE | 2020-07-10 00:53 | ER ---
Nurse's Notes [facility] Name: Denise Wick Age: 40 yrs Sex: Female : 1980 Arrival Date: 07/09/2020 Time: 23:57 Bed External Waiting Private MD: Diagnosis: Presentation: 07/10 00:02 Acuity: CHRISTINA 3 sg 00:02 Chief complaint: Patient states: I was seen here for my chest pain, but I had to leave sg and take care of personal things. Im having the chest pressure and the dizziness still. pt denies no recent drug use upon leaving the ED. Coronavirus screen: Client denies travel out of the [place] in the last 14 days. The client reports previous COVID testing was negative. Date of collection: July 09, 2020. Ebola Screen: Patient negative for fever greater than or equal to 101.5 degrees Fahrenheit, and additional compatible Ebola Virus Disease symptoms Patient denies exposure to infectious person. Patient denies travel to an Ebola-affected area in the 21 days before illness onset. No symptoms or risks identified at this time. Initial Sepsis Screen: Does the patient meet any 2 criteria? HR > 90 bpm. Does the patient have a suspected source of infection? No. Patient's initial sepsis screen is negative. Risk Assessment: Do you want to hurt yourself or someone else? Patient reports no desire to harm self or others. Onset of symptoms was July 10, 2020. Care prior to arrival: None. 00:02 Method Of Arrival: Ambulatory sg Historical: - Allergies: 00:12 Codeine; sg 00:12 tramadol (rash); sg - PMHx: 00:12 Angina; Anxiety; Bipolar disorder; cardiomyopathy; Hypertension; Hypothyroidism; sg - PSHx: 00:12 ; sg - Immunization history:: Adult Immunizations up to date. - Social history:: Smoking status: Patient denies any tobacco usage or history of. - Family history:: not pertinent. ED Course: 07/09 23:57 Patient arrived in ED. am2 07/10 00:02 Triage completed. sg 00:02 Arm band placed on. sg 00:06 Bruno Ferrell MD is Attending Physician. johnny 00:47 Navneet Martinez is Hospitalizing Provider. johnny Administered Medications: No medications were administered Outcome: 00:53 Decision to Hospitalize by Provider. [facility] 04:43 Patient left the ED. sg Signatures: Mina Fitch RN RN sg Anderson, Corey, MD MD cha Moreno, Amanda am2
--- NOTE | 2020-07-10 00:53 | EDPHYS ---
Physician Documentation [facility] Name: Denise Wick Age: 40 yrs Sex: Female : 1980 Arrival Date: 07/09/2020 Time: 23:57 Bed External Waiting Private MD: ED Physician Bruno Ferrell HPI: 07/10 00:39 This 40 yrs old Female presents to ER via Ambulatory with complaints of Chest johnny Pressure, Back Pain, Dizziness - when standing. 00:39 The patient or guardian reports chest pain that is located primarily in the anterior johnny chest wall, bilaterally. Onset: just prior to arrival. The pain radiates to neck. Associated signs and symptoms: Pertinent positives: dizziness, lightheadedness, shortness of breath. The chest pain is described as a pressure, squeezing. Duration: The patient or guardian reports multiple episodes, with no pattern. Modifying factors: The symptoms are alleviated by nothing. the symptoms are aggravated by nothing. smokes 3 paks/day and meth. Severity of pain: At its worst the pain was mild in the emergency department the pain is unchanged. The patient has not experienced similar symptoms in the past. Historical: - Allergies: 00:12 Codeine; sg 00:12 tramadol (rash); sg - PMHx: 00:12 Angina; Anxiety; Bipolar disorder; cardiomyopathy; Hypertension; Hypothyroidism; sg - PSHx: 00:12 ; sg - Immunization history:: Adult Immunizations up to date. - Social history:: Smoking status: Patient denies any tobacco usage or history of. - Family history:: not pertinent. ROS: 00:39 Constitutional: Negative for fever, chills, and weight loss, Eyes: Negative for injury, johnny pain, redness, and discharge, ENT: Negative for injury, pain, and discharge, Neck: Negative for injury, pain, and swelling, Respiratory: Negative for shortness of breath, cough, wheezing, and pleuritic chest pain, Abdomen/GI: Negative for abdominal pain, nausea, vomiting, diarrhea, and constipation, Back: Negative for injury and pain, : Negative for injury, bleeding, discharge, and swelling, MS/Extremity: Negative for injury and deformity, Skin: Negative for injury, rash, and discoloration, Neuro: Negative for headache, weakness, numbness, tingling, and seizure, Psych: Negative for depression, anxiety, suicide ideation, homicidal ideation, and hallucinations, Allergy/Immunology: Negative for hives, rash, and allergies, Endocrine: Negative for neck swelling, polydipsia, polyuria, polyphagia, and marked weight changes, Hematologic/Lymphatic: Negative for swollen nodes, abnormal bleeding, and unusual bruising. 00:39 Cardiovascular: Positive for chest pain, of the chest. Exam: 00:39 Constitutional: This is a well developed, well nourished patient who is awake, alert, johnny and in no acute distress. Head/Face: Normocephalic, atraumatic. Eyes: Pupils equal round and reactive to light, extra-ocular motions intact. Lids and lashes normal. Conjunctiva and sclera are non-icteric and not injected. Cornea within normal limits. Periorbital areas with no swelling, redness, or edema. ENT: Nares patent. No nasal discharge, no septal abnormalities noted. Tympanic membranes are normal and external auditory canals are clear. Oropharynx with no redness, swelling, or masses, exudates, or evidence of obstruction, uvula midline. Mucous membranes moist. Neck: Trachea midline, no thyromegaly or masses palpated, and no cervical lymphadenopathy. Supple, full range of motion without nuchal rigidity, or vertebral point tenderness. No Meningismus. Chest/axilla: Normal chest wall appearance and motion. Nontender with no deformity. No lesions are appreciated. Cardiovascular: Regular rate and rhythm with a normal S1 and S2. No gallops, murmurs, or rubs. Normal PMI, no JVD. No pulse deficits. Respiratory: Lungs have equal breath sounds bilaterally, clear to auscultation and percussion. No rales, rhonchi or wheezes noted. No increased work of breathing, no retractions or nasal flaring. Abdomen/GI: Soft, non-tender, with normal bowel sounds. No distension or tympany. No guarding or rebound. No evidence of tenderness throughout. Back: No spinal tenderness. No costovertebral tenderness. Full range of motion. Skin: Warm, dry with normal turgor. Normal color with no rashes, no lesions, and no evidence of cellulitis. MS/ Extremity: Pulses equal, no cyanosis. Neurovascular intact. Full, normal range of motion. Neuro: Awake and alert, GCS 15, oriented to person, place, time, and situation. Cranial nerves II-XII grossly intact. Motor strength 5/5 in all extremities. Sensory grossly intact. Cerebellar exam normal. Normal gait. Psych: Awake, alert, with orientation to person, place and time. Behavior, mood, and affect are within normal limits. 00:39 Musculoskeletal/extremity: Extremities: all appear grossly normal, with no appreciated pain with palpation, DVT Exam: No signs of deep vein thrombosis. no pain, no swelling, no tenderness, negative Homans' sign noted on exam, no appreciated bluish discoloration, no erythema, no increased warmth. MDM: 00:44 Differential diagnosis: abnormal EKG, acute pericarditis, coronary artery disease johnny costochondritis, hiatal hernia, pancreatitis, pneumonia, stable angina, unstable angina. HEART Score: History: Moderately Suspicious (1), ECG: Non specific repolarization disturbance / LBTB / PM (1), Age: < or = 45 years (0), Risk Factors: > or = 3 Risk factors for atherosclerotic disease (2), [Hypertension] [Active Smoker] [+ Family HX] Troponin: < or = 1 x Normal Limit (0). The patient was given aspirin in the Emergency Department. The patient's deep vein thrombosis risk score was calculated as follows: Total Score: 0. This patient was found to be at low risk for a deep vein thrombosis by using the Well's assessment criteria. The patient's pulmonary embolism risk score was calculated as follows: Total Score: 0-2 points. This patient was found to be at low risk for a pulmonary embolism by using the Well's assessment criteria. ADEBAYO Risk Score: TOTAL SCORE = 0. Data reviewed: vital signs, nurses notes, lab test result(s), EKG, radiologic studies, plain films. Data interpreted: patient monitor: rate is 80 beats/min, rhythm is regular. Test interpretation: by ED physician or midlevel provider: ECG, plain radiologic studies. 00:53 Patient medically screened. johnny Administered Medications: No medications were administered Disposition: 07/10/20 04:43 Patient left the facility post triage evaluation and consult. - Patient left due to wait time. Signatures: Dariana Nixon RN RN mw Gay, Steven, RN RN sg Anderson, Corey, MD MD cha Corrections: (The following items were deleted from the chart) 04:24 00:53 Hospitalization Ordered by Navneet Martinez for Observation. Preliminary diagnosis mw is Chest pain, unspecified; Tobacco abuse counseling; Tobacco use; Adverse effect of amphetamines. Bed requested for Telemetry/MedSurg (observation). Status is Observation. Condition is Fair. Problem is new. Symptoms have improved. johnny 04:42 04:24 07/10/2020 00:53 Hospitalization Ordered by Navneet Martinez for Observation. sg Preliminary diagnosis is Chest pain, unspecified; Tobacco abuse counseling; Tobacco use; Adverse effect of amphetamines. Bed requested for [facility] ER HOLD. Status is Observation. Condition is Fair. Problem is new. Symptoms have improved. mw
--- NOTE | 2020-07-11 13:31 | EKG ---
Test Date: 2020-07-09 Test Time: 18:51:20 Launch Leader: VICENTA MEASUREMENT RESULTS: Intervals: Rate: 107 AR: 152 QRSD: 102 QT: 348 QTc: 464 [place]: P: 48 AR: 152 QRS: 44 T: -15 INTERPRETIVE STATEMENTS: Sinus tachycardia with occasional premature ventricular complexes ST & T wave abnormality, consider inferior ischemia Abnormal ECG Compared to ECG 07/09/2020 18:42:56 ST (T wave) deviation now present Possible ischemia now present Myocardial infarct finding no longer present Electronically Signed On 07-11-20 13:28:28 MAINTENANCE MECHANIC MILLWRIGHT by Reggie Laguna
== END 2020-07-10 04:43 | disposition left against medical advice (07) ==
LOC: ER 23:56
DX: Z53.21 Procedure and treatment not carried out due to patient leaving prior to being seen by health care provider (principal)
CPT/HCPCS: 93005; 99281

== ENCOUNTER 2020-07-11 21:29 | Emergency (ER) | payer SELFPAY ==
--- OUTSIDE RECORDS SUMMARY | 2020-07-11 21:31 | XMS REPORT | Continuity of Care Document ---
:1980 Author Organization [facility] t Address [address] [place] [address] Care Team Providers Name Role Phone Dee [...] 2020-04-15 2020-04-15 Transition Francisco Price [id number] 00:00:00 00:00:00 of Care Rafaela Morin [id number] Wyatt [phone] [id number] Results Test Description Test Time Test [...] = PREGU) Negative STAT LAB URINALYSIS WITHOUT [id number] 17:08:00 Test Item Value Reference Range Interpretation Comments Color (test code = UCOLR) Light yellow Lt. Yellow A Clarity (test code = UCLAR) Clear Glucose (test code = UGLUC) Negative Negative N Bilirubin (test code = UBILI) Negative Negative N Ketones (test code = UKET) Negative Negative N Specific [place] (test code = 1.015 1.005-1.030 A USPGR) Blood (test code = UBLD) Negative Negative N PH (test code = UPH) 5.5 4.5-8.0 A Protein (test code = UPROT) Negative Negative N Urobilinogen (test code = U 0.2 >0.2 N UROB) Nitrite (test code = UNITR) Negative Negative N Leukocyte Esterase (test code = Negative Negative N ULEUK) [id number] 16:39:00 Test Item Value Reference Range Interpretation Comments Lipase (test code = LIPA) 178 U/L 73-393 [id number] 16:39:00 Test Item Value Reference Range Interpretation [...] 4 - SerumAlbu min)] EGFR if >60 [place] (test code mL/min/1.73m\ = EGFRAA) S\2 EGFR if Non- >60 Estimate d Glomerular [place] (test code mL/min/1.73m\ Filtrat ion Rate (eGFR) [...] kidney failure. STAT LAB CBC WITH AUTO [id number] 16:16:00 Test Item Value Reference Range Interpretation [...] 0.4 % 0.0-0.4 XR ELBOW MIN 3 [id number] 17:59:10Procedure: XR ELBOW MIN 3 VIEWSOrder Date: 08/19/2019 2:54 PMOrdering Provider: FIONA Vincentinical Indication: [id number]: Pain of left elbow jointComparison: NoneFINDINGS:There is [...]
--- NOTE | 2020-07-12 00:43 | ER ---
Nurse's Notes [facility] Name: Denise Wick Age: 40 yrs Sex: Female : 1980 Arrival Date: 07/11/2020 Time: 21:43 Bed Waiting Private MD: Diagnosis: Presentation: 07/11 21:30 Chief complaint: Patient states: Reports chest pain since last night, seen in ER but lp1 did not want to be admitted; Reports burning to chest; patient appears hyperventilating; reports to + ETOH tonight and doing "speed". 21:30 Method Of Arrival: Ambulatory lp1 21:30 Coronavirus screen: Client denies travel out of the [place] in the last 14 days. At this lp1 time, the client does not indicate any symptoms associated with coronavirus-19. Ebola Screen: No symptoms or risks identified at this time. Initial Sepsis Screen: Does the patient meet any 2 criteria? No. Patient's initial sepsis screen is negative. Does the patient have a suspected source of infection? No. Patient's initial sepsis screen is negative. Risk Assessment: Do you want to hurt yourself or someone else? Patient reports no desire to harm self or others. Onset of symptoms was July 10, 2020. 21:30 Acuity: CHRISTINA 3 lp1 21:47 Note Patient walked in through ambulance doors. lp1 Historical: - Allergies: 21:48 Codeine; lp1 21:48 tramadol (rash); lp1 - Home Meds: 21:48 Adderall XR Oral [Active]; levothyroxine 50 mcg tab 1 tab once daily [Active]; lp1 lisinopril 20 mg Oral tab 1 tab once daily [Active]; Nitroglycerin Oral [Active]; Tegretol Oral [Active]; Vicodin 5/500 Oral [Active]; - PMHx: 21:48 Angina; Anxiety; Bipolar disorder; cardiomyopathy; Hypertension; Hypothyroidism; lp1 - PSHx: 21:48 ; Tubal ligation; lp1 - Immunization history:: Adult Immunizations up to date. - Social history:: Smoking status: Patient reports the use of cigarette tobacco products, smokes three packs cigarettes per day. Patient uses street drugs, Methamphetamine (Meth). Screenin:47 Abuse screen: Denies threats or abuse. Denies injuries from another. Nutritional lp1 screening: No deficits noted. Tuberculosis screening: No symptoms or risk factors identified. Fall Risk None identified. Assessment: 21:44 Reassessment: Patient appears calm at this time; States "Man, I wonder if that was just lp1 a bad panic attack"; respirations noted to be even, unlabored. Vital Signs: 21:30 BP 131 / 93 LA; Pulse 108; Resp 22; Temp 98.4(O); Pulse Ox 100% on R/A; Weight 68.04 kg lp1 (R); Pain 6/10; 21:35 BP 133 / 108 RA; lp1 ED Course: 21:43 Patient arrived in ED. bp1 21:46 Triage completed. lp1 21:46 Arm band placed on right wrist. lp1 Administered Medications: No medications were administered Outcome: 07/12 00:42 Eloped from waiting room, Time discovered patient gone: July 11, 2020 at 23:00 lp1 00:43 Patient left the ED. lp1 Signatures: Trudi Slater RN RN lp1 Casisa Dhaliwal bp1
[2020-07-12 01:01] VITALS: TEMP 98.4; O2SAT 100
[2020-07-12 01:02] VITALS: BP 133/108
== END 2020-07-12 00:43 | disposition left against medical advice (07) ==
LOC: ER 21:29
DX: Z53.21 Procedure and treatment not carried out due to patient leaving prior to being seen by health care provider (principal)
CPT/HCPCS: 93005; 99281

== ENCOUNTER 2020-07-12 06:20 | Emergency (ER) | payer OTHER ==
--- OUTSIDE RECORDS SUMMARY | 2020-07-12 06:22 | XMS REPORT | Continuity of Care Document ---
:1980 Author Organization [facility] t Address [address] [place] [address] Care Team Providers Name Role Phone Dee NAQVI M Attending Clinician FROILAN ZAPATA Attending Clinician [...] 2020-04-15 2020-04-15 Transition Francisco Price [id number] 00:00:00 00:00:00 of Care Rafaela Morin [id number] Wy[place] [phone] [id number] Results Test Description Test Time Test [...] = PREGU) Negative STAT LAB URINALYSIS WITHOUT [id number] 17:08:00 Test Item Value Reference Range Interpretation Comments Color (test code = UCOLR) Light yellow Lt. Yellow A Clarity (test code = UCLAR) Clear Glucose (test code = UGLUC) Negative Negative N Bilirubin (test code = UBILI) Negative Negative N Ketones (test code = UKET) Negative Negative N Specific [place] (test code = 1.015 1.005-1.030 A USPGR) Blood (test code = UBLD) Negative Negative N PH (test code = UPH) 5.5 4.5-8.0 A Protein (test code = UPROT) Negative Negative N Urobilinogen (test code = U 0.2 >0.2 N UROB) Nitrite (test code = UNITR) Negative Negative N Leukocyte Esterase (test code = Negative Negative N ULEUK) [id number] 16:39:00 Test Item Value Reference Range Interpretation Comments Lipase (test code = LIPA) 178 U/L 73-393 [id number] 16:39:00 Test Item Value Reference Range Interpretation [...] 4 - SerumAlbu min)] EGFR if >60 [place] (test code mL/min/1.73m\ = EGFRAA) S\2 EGFR if Non- >60 Estimate d Glomerular [place] (test code mL/min/1.73m\ Filtrat ion Rate (eGFR) [...] kidney failure. STAT LAB CBC WITH AUTO [id number] 16:16:00 Test Item Value Reference Range Interpretation [...] 0.4 % 0.0-0.4 XR ELBOW MIN 3 [id number] 17:59:10Procedure: XR ELBOW MIN 3 [id number] Date: 08/19/2019 2:54 PMOrdering Provider: FIONA Vincentinical Indication: [id number]: Pain of left elbow jointComparison: NoneFINDINGS:There is [...]
[2020-07-12] MEDS ORDERED: LORazepam 2 MG/ML VIAL ONE (06:57)
[2020-07-12 07:28] LABS: Absolute Lymphocytes (CBC) 1.4 K/uL (0.7-4.9); Basophils % 1.2 % (0-1.3); Hematocrit 44.9 % (36.0-45.0); Lymphocytes % 25.7 % (15.3-44.8); MPV 7.8 fL (7.6-11.3); RBC Red Blood Cell Count 4.97 M/uL (3.86-4.86)
[2020-07-12 07:30] LABS: Protime INR 1.03
[2020-07-12 07:51] LABS: ALT/SGPT 118 U/L (12-78); AST/SGOT 105 U/L (15-37); Albumin 4.1 g/dL (3.4-5.0); Alkaline Phosphatase 119 U/L (45-117); BUN Blood Urea Nitrogen 5 mg/dL (7-18); Bicarbonate 26 mmol/L (21-32); Bilirubin Direct 0.1 mg/dL (0-0.2); Bilirubin Total 0.4 mg/dL (0.2-1.0); Glucose Level 96 mg/dL (74-106); NT PRO-BNP 115 pg/mL (<125); Protein, Total 8.7 g/dL (6.4-8.2); Sodium Level 137 mmol/L (136-145); Troponin (Emerg Dept Use Only) < 0.02 ng/mL (0.0-0.045)
[2020-07-12 07:53] LABS: Potassium 2.8 mmol/L (3.5-5.1)
--- NOTE | 2020-07-12 08:12 | ER ---
Nurse's Notes [facility] Name: Denise Wick Age: 40 yrs Sex: Female : 1980 Arrival Date: 07/12/2020 Time: 06:21 Bed 6 Private MD: Diagnosis: Chest pain, unspecified Presentation: 07/12 06:36 Chief complaint: EMS states: she has chest pain and shortness of breath. has recent use mg2 of speed (drug), meth, alcohol 2 hours ago. Coronavirus screen: Client denies travel out of the [place] in the last 14 days. At this time, the client does not indicate any symptoms associated with coronavirus-19. Ebola Screen: No symptoms or risks identified at this time. Initial Sepsis Screen: Does the patient meet any 2 criteria? No. Patient's initial sepsis screen is negative. Does the patient have a suspected source of infection? No. Patient's initial sepsis screen is negative. Risk Assessment: Do you want to hurt yourself or someone else? Patient reports no desire to harm self or others. Onset of symptoms was July 12, 2020. 06:36 Method Of Arrival: EMS: [facility] mg2 06:36 Acuity: CHRISTINA 3 mg2 Historical: - Allergies: 06:40 Codeine; mg2 06:40 tramadol (rash); mg2 - Home Meds: 06:40 Adderall XR Oral [Active]; levothyroxine 50 mcg tab 1 tab once daily [Active]; mg2 lisinopril 20 mg Oral tab 1 tab once daily [Active]; Nitroglycerin Oral [Active]; Tegretol Oral [Active]; Vicodin 5/500 Oral [Active]; - PMHx: 06:40 Angina; Anxiety; Bipolar disorder; cardiomyopathy; Hypertension; Hypothyroidism; mg2 - Immunization history:: Flu vaccine status is unknown. - Social history:: Smoking status: Patient reports the use of cigarette tobacco products, Patient uses alcohol, street drugs. Screenin:09 Abuse screen: Denies threats or abuse. Denies injuries from another. Nutritional mg2 screening: No deficits noted. Tuberculosis screening: No symptoms or risk factors identified. Fall Risk. Assessment: 07:08 General: Appears in no apparent distress. Behavior is anxious. Pain: Complains of pain mg2 in chest Pain does not radiate. Pain began gradually, 2 hours ago. Neuro: Level of Consciousness is awake, alert, obeys commands, Oriented to person, place, time, situation. Cardiovascular: Capillary refill < 3 seconds Patient's skin is warm and dry. Respiratory: Airway is patent Respiratory effort is even, unlabored, Respiratory pattern is regular, symmetrical. GI: No signs and/or symptoms were reported involving the gastrointestinal system. : No signs and/or symptoms were reported regarding the genitourinary system. EENT: No signs and/or symptoms were reported regarding the EENT system. Derm: Skin is intact, is healthy with good turgor, Skin is pink, warm \T\ dry. normal. Musculoskeletal: Circulation, motion, and sensation intact. Capillary refill < 3 seconds. 08:09 Reassessment: Patient appears in no apparent distress at this time. Patient and/or em family updated on plan of care and expected duration. Pain level reassessed. Patient is alert, oriented x 3, equal unlabored respirations, skin warm/dry/pink. reports she is ready to leave, wants paperwork Patient states feeling better. Patient states symptoms have improved. Vital Signs: 06:36 BP 175 / 104; Pulse 116; Resp 22; Temp 98.3; Pulse Ox 100% on R/A; mg2 ED Course: 06:21 Patient arrived in ED. cl3 06:30 Daniel Chowdhury MD is Attending Physician. mh7 06:36 Andrea Kelsey, DRISS is Primary Nurse. mg2 06:38 Triage completed. mg2 06:40 Arm band placed on. mg2 07:09 Primary Nurse role handed off by Andrea Kelsey RN eb 07:09 Patient has correct armband on for positive identification. 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 Pulse mg2 ox on. NIBP on. 07:09 No provider procedures requiring assistance completed. mg2 07:15 Initial lab(s) drawn, by me, sent to lab. Inserted saline lock: 20 gauge in right em antecubital area, using aseptic technique. Blood collected. 07:15 Patient maintains SpO2 saturation greater than 95% on room air. em 07:16 XRAY Chest (1 view) In Process Unspecified. EDMS 07:17 Tez Green, RN is Primary Nurse. em 08:20 IV discontinued, intact, bleeding controlled, No redness/swelling at site. Pressure em dressing applied. Administered Medications: 07:16 Drug: Ativan 1 mg Route: IVP; Site: right antecubital; em 08:08 Follow up: Response: No adverse reaction; Marked relief of symptoms em Outcome: 08:11 Discharge ordered by MD. mullins 08:20 Discharged to home ambulatory. em 08:20 Condition: improved 08:20 Discharge instructions given to patient, Instructed on discharge instructions, follow up and referral plans. Demonstrated understanding of instructions, follow-up care. 08:21 Patient left the ED. em Signatures: Dispatcher [employer] Tez Hernandez RN RN Paulette Palmer MD MD ma2 Aarti Ruiz Michele, RN RN mg2 Lewis, Charde cl3 Daniel Chowdhury MD MD 7
--- NOTE | 2020-07-12 08:12 | EDPHYS ---
Physician Documentation [facility] Name: Denise Wick Age: 40 yrs Sex: Female : 1980 Arrival Date: 07/12/2020 Time: 06:21 Bed 6 Private MD: ED Physician Daniel Chowdhury HPI: 07/12 06:38 This 40 yrs old Female presents to ER via Unassigned with complaints of Chest mh7 Pain. 06:38 The patient or guardian reports chest pain that is located primarily in the anterior mh7 chest wall, left. Onset: last night. The pain radiates to the left arm. Associated signs and symptoms: Pertinent positives: nausea, Pertinent negatives: abdominal pain, cough, diaphoresis, dizziness, headache, lower extremity pain, lower extremity swelling, lightheadedness, near syncope, palpitations, recent travel, shortness of breath, syncope, vomiting. The chest pain is described as sharp. Duration: The patient or guardian reports multiple episodes, that are intermittent, that wax and wane. Modifying factors: The symptoms are alleviated by nothing. the symptoms are aggravated by nothing. Severity of pain: At its worst the pain was moderate last night, in the emergency department the pain is unchanged. Historical: - Allergies: 06:40 Codeine; mg2 06:40 tramadol (rash); mg2 - Home Meds: 06:40 Adderall XR Oral [Active]; levothyroxine 50 mcg tab 1 tab once daily [Active]; mg2 lisinopril 20 mg Oral tab 1 tab once daily [Active]; Nitroglycerin Oral [Active]; Tegretol Oral [Active]; Vicodin 5/500 Oral [Active]; - PMHx: 06:40 Angina; Anxiety; Bipolar disorder; cardiomyopathy; Hypertension; Hypothyroidism; mg2 - Immunization history:: Flu vaccine status is unknown. - Social history:: Smoking status: Patient reports the use of cigarette tobacco products, Patient uses alcohol, street drugs. ROS: 06:38 Constitutional: Negative for fever, chills, and weight loss, Eyes: Negative for injury, mh7 pain, redness, and discharge, ENT: Negative for injury, pain, and discharge, Neck: Negative for injury, pain, and swelling, Respiratory: Negative for shortness of breath, cough, wheezing, and pleuritic chest pain, Back: Negative for injury and pain, : Negative for injury, bleeding, discharge, and swelling, MS/Extremity: Negative for injury and deformity, Skin: Negative for injury, rash, and discoloration, Neuro: Negative for headache, weakness, numbness, tingling, and seizure. 06:38 Allergy/Immunology: Negative for hives, rash, and allergies, Endocrine: Negative for neck swelling, polydipsia, polyuria, polyphagia, and marked weight changes, Hematologic/Lymphatic: Negative for swollen nodes, abnormal bleeding, and unusual bruising. 06:38 Psych: Positive for anxiety. Exam: 06:38 Head/Face: Normocephalic, atraumatic. Eyes: Pupils equal round and reactive to light, mh7 extra-ocular motions intact. Lids and lashes normal. Conjunctiva and sclera are non-icteric and not injected. Cornea within normal limits. Periorbital areas with no swelling, redness, or edema. Neck: Trachea midline, no thyromegaly or masses palpated, and no cervical lymphadenopathy. Supple, full range of motion without nuchal rigidity, or vertebral point tenderness. No Meningismus. 06:38 Respiratory: Lungs have equal breath sounds bilaterally, clear to auscultation and percussion. No rales, rhonchi or wheezes noted. No increased work of breathing, no retractions or nasal flaring. Abdomen/GI: Soft, non-tender, with normal bowel sounds. No distension or tympany. No guarding or rebound. No evidence of tenderness throughout. Back: No spinal tenderness. No costovertebral tenderness. Full range of motion. Skin: Warm, dry with normal turgor. Normal color with no rashes, no lesions, and no evidence of cellulitis. MS/ Extremity: Pulses equal, no cyanosis. Neurovascular intact. Full, normal range of motion. Neuro: Awake and alert, GCS 15, oriented to person, place, time, and situation. Cranial nerves II-XII grossly intact. Motor strength 5/5 in all extremities. Sensory grossly intact. Cerebellar exam normal. Normal gait. 06:38 Constitutional: The patient appears in no acute distress, alert, awake, anxious. 06:38 Cardiovascular: Rate: tachycardic, Rhythm: regular, Pulses: no pulse deficits are appreciated, Heart sounds: normal, normal S1and S2, Edema: is not appreciated, JVD: is not appreciated. 06:38 Psych: Behavior/mood is cooperative, anxious, Affect is animated, Oriented to person, place, time, Patient has no thoughts/intents to harm self or others. Judgement / Insight is normal. Memory is normal. Delusions/hallucinations are not present. Vital Signs: 06:36 BP 175 / 104; Pulse 116; Resp 22; Temp 98.3; Pulse Ox 100% on R/A; mg2 MDM: 07:02 Transition of care: After a detail discussion of the patient's case, care is [facility] transferred to Paulette Baez MD. 08:11 Patient medically screened. ma2 08:12 Differential diagnosis: anxiety, chest wall pain, gastroesophageal reflux disease ma2 (GERD), pancreatitis. ADEBAYO Risk Score: not applicable. Data reviewed: vital signs, nurses notes, old medical records. Counseling: I had a detailed discussion with the patient and/or guardian regarding: the historical points, exam findings, and any diagnostic results supporting the discharge/admit diagnosis, the presence of at least one elevated blood pressure reading (>120/80) during this emergency department visit, the need for outpatient follow up. 07/12 06:37 Order name: Basic Metabolic Panel [facility] 07/12 06:37 Order name: CBC with Diff [facility] 07/12 06:37 Order name: LFT's [facility] 07/12 06:37 Order name: Magnesium [facility] 07/12 06:37 Order name: NT PRO-BNP [facility] 07/12 06:37 Order name: PT-INR [facility] 07/12 06:37 Order name: Troponin (emerg Dept Use Only) [facility] 07/12 06:37 Order name: ETOH Level; Complete Time: 08:12 [facility] 07/12 06:38 Order name: Basic Metabolic Panel; Complete Time: 08:12 EDMS 07/12 06:38 Order name: CBC with Automated Diff; Complete Time: 07:40 [facility] 07/12 06:38 Order name: Liver (Hepatic) Function; Complete Time: 08:12 EDMS 07/12 06:38 Order name: Magnesium; Complete Time: 08:12 [facility] 07/12 06:38 Order name: NT PRO-BNP; Complete Time: 08:12 EDMS 07/12 06:37 Order name: XRAY Chest (1 view) [facility] 07/12 06:37 Order name: EKG; Complete Time: 06:38 mh7 07/12 06:37 Order name: Cardiac monitoring; Complete Time: 07:17 07/12 06:37 Order name: EKG - Nurse/Tech; Complete Time: 07:10 07/12 06:37 Order name: IV Saline Lock; Complete Time: 07:18 7 07/12 06:37 Order name: Labs collected and sent; Complete Time: 07:18 07/12 06:37 Order name: O2 Per Protocol; Complete Time: 07:18 07/12 06:37 Order name: O2 Sat Monitoring; Complete Time: 07:18 07/12 06:38 Order name: Protime (+INR); Complete Time: 07:40 EDMS 07/12 06:38 Order name: Troponin (Emerg Dept Use Only); Complete Time: 08:12 EDMS Administered Medications: 07:16 Drug: Ativan 1 mg Route: IVP; Site: right antecubital; em 08:08 Follow up: Response: No adverse reaction; Marked relief of symptoms em Disposition: 07/12/20 08:11 Discharged to Home. Impression: Chest pain, unspecified. - Condition is Stable. - Discharge Instructions: Nonspecific Chest Pain. - Medication Reconciliation Form, Thank You Letter, Antibiotic Education, Prescription Opioid Use form. - Follow up: Private Physician; When: Tomorrow; Reason: Continuance of care. Signatures: Dispatcher [employer] Tez Hernandez RN RN em Alzahri, Mohammad, MD MD nc2 Andrea Kelsey RN RN [facility] Daniel Chowdhury MD MD 7 Corrections: (The following items were deleted from the chart) 08: 08:11 07/12/2020 08:11 Discharged to Home. Impression: Chest pain, unspecified. em Condition is Stable. Forms are Medication Reconciliation Form, Thank You Letter, Antibiotic Education, Prescription Opioid Use. Follow up: Private Physician; When: Tomorrow; Reason: Continuance of care. harpreet
[2020-07-12 08:28] VITALS: BP 175/104; TEMP 98.3; O2SAT 100
--- NOTE | 2020-07-12 09:36 | RAD REPORT ---
EXAM DESCRIPTION: RAD - Chest Single View - 07/12/2020 7:15 am CLINICAL HISTORY: CHEST PAIN COMPARISON: December 07 portable TECHNIQUE: AP portable chest image was obtained 07/12/2020 7:15 am . FINDINGS: Lung volumes are low. No peripheral mass or consolidation. No failure or volume overload s een. Interstitial pattern is fractionally increased. Heart and vasculature are normal. No measurable pleural effusion and no pneumothorax. No acute bony abnormality seen. No acute aortic findings suspec bhaskar. IMPRESSION: No focal mass or consolidation. Interstitial pattern is fractionally increased probably low lung volume artifact. A very early inters titial edema or infiltrate not excluded.
== END 2020-07-12 08:21 | disposition home or self-care (01) ==
LOC: ER 06:20
DX: R07.9 Chest pain, unspecified (principal); I10 Essential (primary) hypertension; E03.9 Hypothyroidism, unspecified; F31.9 Bipolar disorder, unspecified; Z72.0 Tobacco use; Z88.5 Allergy status to narcotic agent
CPT/HCPCS: 36415; 71045; 80048; 80076; 80320; 83735; 83880; 84484; 85025; 85610; 93005; 96374; 99285

== ENCOUNTER 2020-07-14 02:25 | Emergency (ER) | payer OTHER ==
--- OUTSIDE RECORDS SUMMARY | 2020-07-14 02:28 | XMS REPORT | Continuity of Care Document ---
:1980 Author Organization [facility] t Address [address] [place] [address] Care Team Providers Name Role Phone Dee [...] 2020-04-15 2020-04-15 Transition Francisco Price [id number] 00:00:00 00:00:00 of Care Rafaela Morin [id number] Wyatt [id number] [id number] Results Test Description Test Time Test [...] = PREGU) Negative STAT LAB URINALYSIS WITHOUT [id number] 17:08:00 Test Item Value Reference Range Interpretation Comments Color (test code = UCOLR) Light yellow Lt. Yellow A Clarity (test code = UCLAR) Clear Glucose (test code = UGLUC) Negative Negative N Bilirubin (test code = UBILI) Negative Negative N Ketones (test code = UKET) Negative Negative N Specific [place] (test code = 1.015 1.005-1.030 A USPGR) Blood (test code = UBLD) Negative Negative N PH (test code = UPH) 5.5 4.5-8.0 A Protein (test code = UPROT) Negative Negative N Urobilinogen (test code = U 0.2 >0.2 N UROB) Nitrite (test code = UNITR) Negative Negative N Leukocyte Esterase (test code = Negative Negative N ULEUK) [id number] 16:39:00 Test Item Value Reference Range Interpretation Comments Lipase (test code = LIPA) 178 U/L 73-393 [id number] 16:39:00 Test Item Value Reference Range Interpretation [...] 4 - SerumAlbu min)] EGFR if >60 Slovenian (test code mL/min/1.73m\ = EGFRAA) S\2 EGFR if Non- >60 Estimate d Glomerular Slovenian (test code mL/min/1.73m\ Filtrat ion Rate (eGFR) [...] kidney failure. STAT LAB CBC WITH AUTO [id number] 16:16:00 Test Item Value Reference Range Interpretation [...] 0.4 % 0.0-0.4 XR ELBOW MIN 3 [id number] 17:59:10Procedure: XR ELBOW MIN 3 VIEWSOrder Date: 08/19/2019 2:54 PMOrdering Provider: FIONA Vincentinical Indication: [id number]: Pain of left elbow jointComparison: NoneFINDINGS:There is [...]
--- NOTE | 2020-07-14 02:54 | ER ---
Nurse's Notes [facility] Name: Denise Wick Age: 40 yrs Sex: Female : 1980 Arrival Date: 07/14/2020 Time: 02:27 Bed 20 Private MD: Diagnosis: Presentation: 07/14 02:39 Chief complaint: Patient states: chest pain from last night never got any better. dm5 Unable to get medications filled. Pt did not take medication at home because she didn't know if she should after drinking "two tall boys". Pt states that she does not believe that this is anxiety because it didn't feel better after last night. Coronavirus screen: Client denies travel out of the [place] in the last 14 days. Ebola Screen: Patient negative for fever greater than or equal to 101.5 degrees Fahrenheit, and additional compatible Ebola Virus Disease symptoms Patient denies exposure to infectious person. Patient denies travel to an Ebola-affected area in the 21 days before illness onset. No symptoms or risks identified at this time. Onset of symptoms was July 14, 2020. 02:39 Method Of Arrival: Ambulatory dm5 02:39 Acuity: CHRISTINA 3 dm5 Historical: - Allergies: 02:50 Codeine; dm5 02:50 tramadol (rash); dm5 - Home Meds: 02:50 levothyroxine 50 mcg tab 1 tab once daily [Active]; lisinopril 20 mg Oral tab 1 tab dm5 once daily [Active]; Nitroglycerin Oral [Active]; Tegretol Oral [Active]; - PMHx: 02:50 Angina; Anxiety; Bipolar disorder; cardiomyopathy; Hypertension; Hypothyroidism; dm5 - Immunization history:: Adult Immunizations not up to date. - Social history:: Smoking status: Patient reports the use of cigarette tobacco products, smokes two packs cigarettes per day. Patient uses street drugs, states she smoked speed yesterday. Assessment: 02:52 Reassessment: pt did not want to take jacket off to let me take her blood pressure. She dm5 now states that this is just anxiety and she wants to leave. Pt muttered something about her significant other yelling at her. ED Course: 02:27 Patient arrived in ED. ag3 02:32 Paulette Baez MD is Attending Physician. ma2 02:41 Triage completed. dm5 Administered Medications: No medications were administered Outcome: 02:53 Patient left the ED. dm5 Signatures: Quynh Bolden RN RN dm5 Paulette Baez MD MD ma2 Alysha Cano 3
--- NOTE | 2020-07-14 17:15 | EKG ---
Test Date: 2020-07-14 Test Time: 05:14:02 Care Mgr: SRIRAM MEASUREMENT RESULTS: Intervals: Rate: 93 NC: 104 QRSD: 106 QT: 376 QTc: 467 [place]: P: 72 NC: 104 QRS: 81 T: 43 INTERPRETIVE STATEMENTS: Sinus rhythm with short NC with occasional premature ventricular complexes Otherwise normal ECG Compared to ECG 07/12/2020 06:32:20 Sinus tachycardia no longer present Fusion complex(es) no longer present ST (T wave) deviation no longer present Electronically Signed On 07-14-20 17:12:52 ENVIRONMENTAL SERVICES COORDINATOR by Reggie Laguna
== END 2020-07-14 02:53 | disposition left against medical advice (07) ==
LOC: ER 02:25
DX: Z53.21 Procedure and treatment not carried out due to patient leaving prior to being seen by health care provider (principal)
CPT/HCPCS: 93005; 99281

== ENCOUNTER 2020-07-14 04:44 | Emergency (ER) | payer OTHER ==
--- OUTSIDE RECORDS SUMMARY | 2020-07-14 04:45 | XMS REPORT | Continuity of Care Document ---
:1980 Author Organization [facility] t Address [address] [place] [address] Care Team Providers Name Role Phone Dee [...] 2020-04-15 2020-04-15 Transition Francisco Price [id number] 00:00:00 00:00:00 of Care Rafaela Morin [id number] Wyatt [phone] [id number] Results Test Description Test Time Test [...] = PREGU) Negative STAT LAB URINALYSIS WITHOUT [id number] 17:08:00 Test Item Value Reference Range Interpretation Comments Color (test code = UCOLR) Light yellow Lt. Yellow A Clarity (test code = UCLAR) Clear Glucose (test code = UGLUC) Negative Negative N Bilirubin (test code = UBILI) Negative Negative N Ketones (test code = UKET) Negative Negative N Specific [place] (test code = 1.015 1.005-1.030 A USPGR) Blood (test code = UBLD) Negative Negative N PH (test code = UPH) 5.5 4.5-8.0 A Protein (test code = UPROT) Negative Negative N Urobilinogen (test code = U 0.2 >0.2 N UROB) Nitrite (test code = UNITR) Negative Negative N Leukocyte Esterase (test code = Negative Negative N ULEUK) [id number] 16:39:00 Test Item Value Reference Range Interpretation Comments Lipase (test code = LIPA) 178 U/L 73-393 [id number] 16:39:00 Test Item Value Reference Range Interpretation [...] 4 - SerumAlbu min)] EGFR if >60 Belgian (test code mL/min/1.73m\ = EGFRAA) S\2 EGFR if Non- >60 Estimate d Glomerular Belgian (test code mL/min/1.73m\ Filtrat ion Rate (eGFR) [...] kidney failure. STAT LAB CBC WITH AUTO [id number] 16:16:00 Test Item Value Reference Range Interpretation [...] 0.4 % 0.0-0.4 XR ELBOW MIN 3 [id number] 17:59:10Procedure: XR ELBOW MIN 3 VIEWSOrder Date: 08/19/2019 2:54 PMOrdering Provider: FIONA Vincentinical Indication: [id number]: Pain of left elbow jointComparison: NoneFINDINGS:There is [...]
[2020-07-14] MEDS ORDERED: LORAZEPAM 1 MG TABLET ONE (06:48)
--- NOTE | 2020-07-14 06:58 | EDPHYS ---
Physician Documentation [facility] Name: Denise Wick Age: 40 yrs Sex: Female : 1980 Arrival Date: 07/14/2020 Time: 04:48 Bed 20 Private MD: ED Physician Paulette Baez HPI: 07/14 05:46 This 40 yrs old Female presents to ER via EMS with complaints of Anxiety. ma2 05:46 The patient or guardian reports chest pain that is located primarily in the anterior ma2 chest wall, left, chest diffusely. Onset: gradually, 3 day(s) ago. Associated signs and symptoms: Pertinent negatives: cough, dizziness, lower extremity pain, nausea. Severity of pain: At its worst the pain was mild in the emergency department the pain is unchanged. The patient has experienced similar episodes in the past. pain is constant for 2 days worse with deep breath and cough and movement . Historical: - Allergies: 05:02 Codeine; jb4 05:02 tramadol (rash); jb4 - Home Meds: 05:02 Adderall XR Oral [Active]; levothyroxine 50 mcg tab 1 tab once daily [Active]; jb4 lisinopril 20 mg Oral tab 1 tab once daily [Active]; Nitroglycerin Oral [Active]; Tegretol Oral [Active]; Vicodin 5/500 Oral [Active]; - PMHx: 05:02 Angina; Anxiety; Bipolar disorder; cardiomyopathy; Hypertension; Hypothyroidism; jb4 - PSHx: 05:02 ; Tubal ligation; jb4 - Immunization history:: Adult Immunizations up to date. - Social history:: Smoking status: Patient reports the use of cigarette tobacco products, smokes two packs cigarettes per day. Patient uses street drugs, speed, Patient/guardian denies using alcohol. - Family history:: not pertinent. ROS: 05:46 Constitutional: Negative for fever, chills, and weight loss. ma2 05:46 All other systems are negative. Exam: 05:46 Constitutional: This is a well developed, well nourished patient who is awake, alert, ma2 and in no acute distress. Neck: Trachea midline, no thyromegaly or masses palpated, and no cervical lymphadenopathy. Supple, full range of motion without nuchal rigidity, or vertebral point tenderness. No Meningismus. Chest/axilla: ttp left chest, Normal chest wall appearance and motion. Nontender with no deformity. No lesions are appreciated. Cardiovascular: Regular rate and rhythm with a normal S1 and S2. No gallops, murmurs, or rubs. Normal PMI, no JVD. No pulse deficits. Respiratory: Lungs have equal breath sounds bilaterally, clear to auscultation and percussion. No rales, rhonchi or wheezes noted. No increased work of breathing, no retractions or nasal flaring. Abdomen/GI: Soft, non-tender, with normal bowel sounds. No distension or tympany. No guarding or rebound. No evidence of tenderness throughout. MS/ Extremity: Pulses equal, no cyanosis. Neurovascular intact. Full, normal range of motion. Neuro: Awake and alert, GCS 15, oriented to person, place, time, and situation. Cranial nerves II-XII grossly intact. Motor strength 5/5 in all extremities. Sensory grossly intact. Cerebellar exam normal. Normal gait. Vital Signs: 04:57 BP 165 / 115; Pulse 100; Resp 20; Temp 97.8; Pulse Ox 100% on R/A; Weight 63.5 kg (R); jb4 Height 5 ft. 6 in. (167.64 cm); Pain 7/10; 04:57 Body Mass Index 22.60 (63.50 kg, 167.64 cm) jb4 MDM: 04:49 Patient medically screened. [facility] 05:46 Differential diagnosis: anxiety, chest wall pain, gastritis, gastroesophageal reflux ma2 disease (GERD). ADEBAYO Risk Score: not applicable. Data reviewed: vital signs, nurses notes. Counseling: I had a detailed discussion with the patient and/or guardian regarding: the historical points, exam findings, and any diagnostic results supporting the discharge/admit diagnosis, the presence of at least one elevated blood pressure reading (>120/80) during this emergency department visit, the need for outpatient follow up. 05:46 ED course: had workuo 2 days ago for same pain . ma2 07/14 05:04 Order name: EKG - Nurse/Tech; Complete Time: 05:57 [facility] Administered Medications: 06:20 Drug: Ativan 1 mg Route: PO; [facility] 07:00 Follow up: Response: No adverse reaction; Anxiety decreased jb4 06:58 Not Given (Patient Refused): Ativan 2 mg PO once jb4 Disposition: 07/14/20 06:57 Discharged to Home. Impression: Anxiety disorder, unspecified. - Condition is Stable. - Discharge Instructions: Generalized Anxiety Disorder. - Medication Reconciliation Form, Thank You Letter, Antibiotic Education, Prescription Opioid Use form. - Follow up: Private Physician; When: Tomorrow; Reason: If symptoms return, Continuance of care. Signatures: Dispatcher [facility] Brennon Chung RN RN jb4 Paulette Baez MD MD ma2 Corrections: (The following items were deleted from the chart) 07:18 05:08 TROPONIN (EMERG DEPT USE ONLY)+C.LAB.BRZ ordered. [facility] 07:22 06:57 07/14/2020 06:57 Discharged to Home. Impression: Anxiety disorder, unspecified. jb4 Condition is Stable. Prescriptions for buspirone 5 mg Oral tablet - take 1 tablet by ORAL route 3 times per day; 60 tablet. and Forms are Medication Reconciliation Form, Thank You Letter, Antibiotic Education, Prescription Opioid Use. Follow up: Private Physician; When: Tomorrow; Reason: If symptoms return, Continuance of care. ma2
--- NOTE | 2020-07-14 06:58 | ER ---
Nurse's Notes [facility] [place], [place] Name: Denise Wick Age: 40 yrs Sex: Female : 1980 Arrival Date: 07/14/2020 Time: 04:48 Bed 20 Private MD: Diagnosis: Anxiety disorder, unspecified Presentation: 07/14 04:57 Chief complaint: Patient states: My chest has been hurting since last night, my heart jb4 is racing, I can't sleep. Every loud noise I hear puts my heart in my throat and it starts racing again. I wake up short of breathe and my heart is just racing. Coronavirus screen: Client denies travel out of the [place] in the last 14 days. At this time, the client does not indicate any symptoms associated with coronavirus-19. Ebola Screen: Patient negative for fever greater than or equal to 101.5 degrees Fahrenheit, and additional compatible Ebola Virus Disease symptoms No symptoms or risks identified at this time. Initial Sepsis Screen: Does the patient meet any 2 criteria? HR > 90 bpm. Yes Does the patient have a suspected source of infection? No. Patient's initial sepsis screen is negative. Risk Assessment: Do you want to hurt yourself or someone else? Patient reports no desire to harm self or others. Onset of symptoms was July 13, 2020. Transition of care: patient was not received from another setting of care. 04:57 Method Of Arrival: EMS: [facility] jb4 04:57 Acuity: CHRISTINA 3 jb4 Historical: - Allergies: 05:02 Codeine; jb4 05:02 tramadol (rash); jb4 - Home Meds: 05:02 Adderall XR Oral [Active]; levothyroxine 50 mcg tab 1 tab once daily [Active]; jb4 lisinopril 20 mg Oral tab 1 tab once daily [Active]; Nitroglycerin Oral [Active]; Tegretol Oral [Active]; Vicodin 5/500 Oral [Active]; - PMHx: 05:02 Angina; Anxiety; Bipolar disorder; cardiomyopathy; Hypertension; Hypothyroidism; jb4 - PSHx: 05:02 ; Tubal ligation; jb4 - Immunization history:: Adult Immunizations up to date. - Social history:: Smoking status: Patient reports the use of cigarette tobacco products, smokes two packs cigarettes per day. Patient uses street drugs, speed, Patient/guardian denies using alcohol. - Family history:: not pertinent. Screenin:20 Abuse screen: Denies threats or abuse. Nutritional screening: No deficits noted. jb4 Tuberculosis screening: No symptoms or risk factors identified. Fall Risk None identified. Assessment: 05:10 General: Appears in no apparent distress. uncomfortable, Behavior is cooperative, jb4 anxious. Pain: Complains of pain in thoracic area Pain radiates to left cheek and chest Pain currently is 7 out of 10 on a pain scale. Neuro: Level of Consciousness is awake, alert, obeys commands, Oriented to person, place, time, situation. Cardiovascular: Patient's skin is warm and dry. Respiratory: Airway is patent Respiratory effort is even, unlabored, Respiratory pattern is regular, symmetrical. GI: No signs and/or symptoms were reported involving the gastrointestinal system. : No signs and/or symptoms were reported regarding the genitourinary system. EENT: No signs and/or symptoms were reported regarding the EENT system. Derm: Skin is intact, Skin is pink, warm \T\ dry. Musculoskeletal: Circulation, motion, and sensation intact. Range of motion: intact in all extremities. 06:00 Reassessment: Patient appears in no apparent distress at this time. Patient and/or jb4 family updated on plan of care and expected duration. Pain level reassessed. Patient is alert, oriented x 3, equal unlabored respirations, skin warm/dry/pink. 07:00 Reassessment: Patient appears in no apparent distress at this time. Patient and/or jb4 family updated on plan of care and expected duration. Pain level reassessed. Patient is alert, oriented x 3, equal unlabored respirations, skin warm/dry/pink. PT verbalized desire to leave prior to completion of blood test. Pt informed that without the blood work, the DrXiomara would be unable to fully evaluate her. Informed that if there is an underlying condition it may be missed, and that if it were potentially fatal it would be missed. Informed that symptoms could worsen up to the point of . Pt verbalized understanding of information, signed AMA form and left ED with steady gait. Vital Signs: 04:57 BP 165 / 115; Pulse 100; Resp 20; Temp 97.8; Pulse Ox 100% on R/A; Weight 63.5 kg (R); jb4 Height 5 ft. 6 in. (167.64 cm); Pain 7/10; 04:57 Body Mass Index 22.60 (63.50 kg, 167.64 cm) jb4 ED Course: 04:48 Patient arrived in ED. sg 04:49 Paulette Baez MD is Attending Physician. [facility] 04:57 Brennon Chung, RN is Primary Nurse. jb4 04:59 Triage completed. jb4 05:02 Arm band placed on right wrist. jb4 05:20 Patient has correct armband on for positive identification. Call light in reach. Side jb4 rails up X 1. Side rails up X2. Pulse ox on. NIBP on. 06:29 Missed attempt(s): 20 gauge in right antecubital area. tt3 07:00 No provider procedures requiring assistance completed. Patient did not have IV access jb4 during this emergency room visit. Administered Medications: 06:20 Drug: Ativan 1 mg Route: PO; jb4 07:00 Follow up: Response: No adverse reaction; Anxiety decreased jb4 06:58 Not Given (Patient Refused): Ativan 2 mg PO once jb4 Outcome: 06:57 Discharge ordered by . ma2 07:00 AMA jb4 07:00 Condition: stable 07:00 Discharge instructions given to patient, Instructed on discharge instructions, follow up and referral plans. Demonstrated understanding of instructions, follow-up care. 07:22 Patient left the ED. jb4 Signatures: Mina Fitch RN RN Brennon Chung, DRISS RN jb Paulette Baez MD MD [facility] Alexsander Horowitz tt3
[2020-07-14 07:27] VITALS: BP 165/115; TEMP 97.8; O2SAT 100
== END 2020-07-14 07:22 | disposition home or self-care (01) ==
LOC: ER 04:44
DX: F41.9 Anxiety disorder, unspecified (principal); I10 Essential (primary) hypertension; F17.210 Nicotine dependence, cigarettes, uncomplicated; Z88.5 Allergy status to narcotic agent
CPT/HCPCS: 99283

== ENCOUNTER 2020-07-18 03:32 | Emergency (ER) | payer OTHER, SELFPAY ==
--- OUTSIDE RECORDS SUMMARY | 2020-07-18 03:34 | XMS REPORT | Continuity of Care Document ---
:1980 Author Organization [facility] t Address [address] [place] [place] [address] Care Team Providers Name Role Phone Dee [...] 2020-04-15 2020-04-15 Transition Francisco Price [id number] 00:00:00 00:00:00 of Care Rafaela Morin [id number] Wyatt [id number] [phone] [id number] Results Test Description Test Time Test [...] = PREGU) Negative STAT LAB URINALYSIS WITHOUT [id number] 17:08:00 Test Item Value Reference Range Interpretation Comments Color (test code = UCOLR) Light yellow Lt. Yellow A Clarity (test code = UCLAR) Clear Glucose (test code = UGLUC) Negative Negative N Bilirubin (test code = UBILI) Negative Negative N Ketones (test code = UKET) Negative Negative N Specific [place] (test code = 1.015 1.005-1.030 A USPGR) Blood (test code = UBLD) Negative Negative N PH (test code = UPH) 5.5 4.5-8.0 A Protein (test code = UPROT) Negative Negative N Urobilinogen (test code = U 0.2 >0.2 N UROB) Nitrite (test code = UNITR) Negative Negative N Leukocyte Esterase (test code = Negative Negative N ULEUK) [id number] 16:39:00 Test Item Value Reference Range Interpretation Comments Lipase (test code = LIPA) 178 U/L 73-393 [id number] 16:39:00 Test Item Value Reference Range Interpretation [...] 4 - SerumAlbu min)] EGFR if >60 [place] (test code mL/min/1.73m\ = EGFRAA) S\2 EGFR if Non- >60 Estimate d Glomerular [place] (test code mL/min/1.73m\ Filtrat ion Rate (eGFR) [...] kidney failure. STAT LAB CBC WITH AUTO [id number] 16:16:00 Test Item Value Reference Range Interpretation [...] 0.4 % 0.0-0.4 XR ELBOW MIN 3 [id number] 17:59:10Procedure: XR ELBOW MIN 3 VIEWSOrder Date: 08/19/2019 2:54 PMOrdering Provider: FIONA Vincentinical Indication: [id number]: Pain of left elbow jointComparison: NoneFINDINGS:There is [...]
[2020-07-18 04:58] LABS: Absolute Lymphocytes (CBC) 1.5 K/uL (0.7-4.9); Basophils % 1.2 % (0-1.3); Hematocrit 46.1 % (36.0-45.0); Lymphocytes % 24.4 % (15.3-44.8); MPV 8.2 fL (7.6-11.3); RBC Red Blood Cell Count 5.07 M/uL (3.86-4.86)
[2020-07-18 04:59] LABS: Protime INR 0.98
[2020-07-18 05:22] LABS: ALT/SGPT 102 U/L (12-78); AST/SGOT 73 U/L (15-37); Albumin 4.1 g/dL (3.4-5.0); Alkaline Phosphatase 119 U/L (45-117); BUN Blood Urea Nitrogen 6 mg/dL (7-18); Bicarbonate 26 mmol/L (21-32); Bilirubin Direct < 0.1 mg/dL (0-0.2); Bilirubin Total 0.3 mg/dL (0.2-1.0); Creatine Phosphokinase 466 U/L (26-192); Glucose Level 99 mg/dL (74-106); Magnesium 2.4 mg/dL (1.8-2.4); NT PRO-BNP 322 pg/mL (<125); Protein, Total 8.8 g/dL (6.4-8.2); Sodium Level 138 mmol/L (136-145); Troponin (Emerg Dept Use Only) < 0.02 ng/mL (0.0-0.045)
[2020-07-18] MEDS ORDERED: hydrOXYzine HCL 25 MG TAB ONE (05:26)
[2020-07-18] MEDS ORDERED: POTASSIUM 25 MEQ EFFERV TAB ONE (05:56)
[2020-07-18] MEDS ORDERED: ONDANSETRON 4 MG/2 ML VIAL ONE (06:05)
--- NOTE | 2020-07-18 07:05 | ER ---
Nurse's Notes [facility] Name: Denise Wick Age: 40 yrs Sex: Female : 1980 Arrival Date: 07/18/2020 Time: 03:33 Bed 8 Private MD: Diagnosis: Chest pain, unspecified;Anxiety disorder, unspecified Presentation: 07/18 03:36 Chief complaint: EMS states: Toned out to pt's home, pt reported tightness in the ea center of her chest that started about an hour ago. Pt denied using drugs. Coronavirus screen: At this time, the client does not indicate any symptoms associated with coronavirus-19. Ebola Screen: No symptoms or risks identified at this time. 03:36 Method Of Arrival: EMS: [facility] ea 03:54 Initial Sepsis Screen: Does the patient meet any 2 criteria? No. Patient's initial ea sepsis screen is negative. Does the patient have a suspected source of infection? No. Patient's initial sepsis screen is negative. Risk Assessment: Do you want to hurt yourself or someone else? Patient reports no desire to harm self or others. Onset of symptoms was July 18, 2020. 03:54 Acuity: CHRISTINA 3 ea Triage Assessment: 03:55 General: Appears in no apparent distress. Behavior is calm, cooperative, appropriate ea for age. Pain: Complains of pain in chest. Neuro: Level of Consciousness is awake, alert, obeys commands, Oriented to person, place, time. Cardiovascular: Patient's skin is warm and dry. Respiratory: Airway is patent Respiratory effort is even, unlabored, Respiratory pattern is regular, symmetrical. Derm: Skin is intact, Skin is pink, warm \T\ dry. 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 - Social history:: Smoking status: Patient reports the use of cigarette tobacco products. Screenin:36 Abuse screen: Denies threats or abuse. Nutritional screening: No deficits noted. ea Tuberculosis screening: No symptoms or risk factors identified. Fall Risk IV access (20 points). Assessment: 03:55 Reassessment: see triage assessment. ea 04:30 Reassessment: Patient and/or family updated on plan of care and expected duration. Pain ea level reassessed. Patient is alert, oriented x 3, equal unlabored respirations, skin warm/dry/pink. 05:30 Reassessment: Patient and/or family updated on plan of care and expected duration. Pain ea level reassessed. Patient is alert, oriented x 3, equal unlabored respirations, skin warm/dry/pink. 06:18 Reassessment: Patient and/or family updated on plan of care and expected duration. Pain ea level reassessed. Patient is alert, oriented x 3, equal unlabored respirations, skin warm/dry/pink. 07:00 Reassessment: RECD REPORT FROM [facility] NAQVI. 40YO WF P/W CHEST PAIN. D/C PENDING. bp 07:27 Reassessment: PT D/C HOME AMBULATORY WITH FAMILY, DX WITH CHEST PAIN AND ANXIETY. bp 07:28 Reassessment: discharged to [facility] to wait for taxi. jd3 Vital Signs: 03:36 BP 176 / 117; Pulse 90; Resp 18; Temp 98; Pulse Ox 100% ; ea 04:39 BP 174 / 111; Pulse 96; Resp 18; Temp 98.0; Pulse Ox 100% ; ea 06:20 BP 144 / 99; Pulse 96; Resp 19; Pulse Ox 100% ; ea 07:27 BP 157 / 99; Pulse 98; Resp 20; Temp 98; Pulse Ox 100% ; bp ED Course: 03:33 Patient arrived in ED. am2 03:35 Cindy Grant, DRISS is Primary Nurse. ea 03:37 Daniel Chowdhury MD is Attending Physician. 7 03:49 Arm band placed on right wrist. Patient placed in an exam room, on a stretcher, on ea pulse oximetry. 03:50 Patient has correct armband on for positive identification. Placed in gown. Bed in low ea position. Call light in reach. teletypesetter monitor on. Pulse ox on. NIBP on. 03:50 Patient maintains SpO2 saturation greater than 95% on room air. ea 03:54 Triage completed. ea 04:35 Inserted saline lock: 20 gauge in right antecubital area, using aseptic technique. lp1 Blood collected. 05:11 XRAY Chest (1 view) In Process Unspecified. EDMS 07:27 No provider procedures requiring assistance completed. IV discontinued, intact, bp bleeding controlled, No redness/swelling at site. Pressure dressing applied. Administered Medications: 05:12 Drug: hydrOXYzine 50 mg Route: PO; 07:28 Follow up: Response: No adverse reaction bp 05:54 Drug: Potassium Effervescent Tablet 50 mEq Route: PO; 07:28 Follow up: Response: No adverse reaction bp 05:55 Drug: Zofran (Ondansetron) 4 mg Route: IVP; Site: right antecubital; 07:28 Follow up: Response: No adverse reaction bp Outcome: 07:04 Discharge ordered by . kel 07:27 Discharged to home ambulatory, with family. bp 07:27 Condition: stable 07:27 Discharge instructions given to patient, Instructed on discharge instructions, follow up and referral plans. Demonstrated understanding of instructions, follow-up care. 07:41 Patient left the ED. jd3 Signatures: Dispatcher [employer] EDMS Trudi Slater RN RN lp1 Mena Lopes Elena, RN RN ea Habalo, Winsy, RN RN wh Davies, Jonathon, RN RN jd3 Peltier, Brian, RN RN bp Holmes, Maurice, MD MD 7 Corrections: (The following items were deleted from the chart) 04:43 03:50 Inserted saline lock: 20 gauge in right antecubital area, using aseptic lp1 technique. Blood collected. ea
--- NOTE | 2020-07-18 07:05 | EDPHYS ---
Physician Documentation [facility] Name: Dneise Wick Age: 40 yrs Sex: Female : 1980 Arrival Date: 07/18/2020 Time: 03:33 Bed 8 Private MD: ED Physician Daniel Chowdhury HPI: 07/18 04:11 This 40 yrs old Female presents to ER via EMS with complaints of Chest Pain. [facility] 04:11 The patient or guardian reports chest pain that is located primarily in the substernal mh7 area. Onset: today. The pain does not radiate. Associated signs and symptoms: Pertinent negatives: abdominal pain, cough, diaphoresis, dizziness, headache, lower extremity pain, lower extremity swelling, lightheadedness, nausea, near syncope, palpitations, recent travel, shortness of breath, syncope, vomiting. The chest pain is described as tightness. Duration: The patient or guardian reports multiple episodes, that are intermittent, that wax and wane. Modifying factors: The symptoms are alleviated by nothing. the symptoms are aggravated by nothing. Severity of pain: At its worst the pain was moderate today, in the emergency department the pain has improved moderately. 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 - Social history:: Smoking status: Patient reports the use of cigarette tobacco products. ROS: 04:11 Constitutional: Negative for fever, chills, and weight loss, Eyes: Negative for injury, mh7 pain, redness, and discharge, ENT: Negative for injury, pain, and discharge, Neck: Negative for injury, pain, and swelling, Respiratory: Negative for shortness of breath, cough, wheezing, and pleuritic chest pain, Abdomen/GI: Negative for abdominal pain, nausea, vomiting, diarrhea, and constipation, Back: Negative for injury and pain, : Negative for injury, bleeding, discharge, and swelling, MS/Extremity: Negative for injury and deformity, Skin: Negative for injury, rash, and discoloration, Neuro: Negative for headache, weakness, numbness, tingling, and seizure, Psych: Negative for depression, anxiety, suicide ideation, homicidal ideation, and hallucinations, Allergy/Immunology: Negative for hives, rash, and allergies, Endocrine: Negative for neck swelling, polydipsia, polyuria, polyphagia, and marked weight changes, Hematologic/Lymphatic: Negative for swollen nodes, abnormal bleeding, and unusual bruising. Exam: 04:11 Constitutional: This is a well developed, well nourished patient who is awake, alert, mh7 and in no acute distress. Head/Face: Normocephalic, atraumatic. Eyes: Pupils equal round and reactive to light, extra-ocular motions intact. Lids and lashes normal. Conjunctiva and sclera are non-icteric and not injected. Cornea within normal limits. Periorbital areas with no swelling, redness, or edema. Neck: Trachea midline, no thyromegaly or masses palpated, and no cervical lymphadenopathy. Supple, full range of motion without nuchal rigidity, or vertebral point tenderness. No Meningismus. Chest/axilla: Normal chest wall appearance and motion. Nontender with no deformity. No lesions are appreciated. Cardiovascular: Regular rate and rhythm with a normal S1 and S2. No gallops, murmurs, or rubs. Normal PMI, no JVD. No pulse deficits. Respiratory: Lungs have equal breath sounds bilaterally, clear to auscultation and percussion. No rales, rhonchi or wheezes noted. No increased work of breathing, no retractions or nasal flaring. Abdomen/GI: Soft, non-tender, with normal bowel sounds. No distension or tympany. No guarding or rebound. No evidence of tenderness throughout. Back: No spinal tenderness. No costovertebral tenderness. Full range of motion. Skin: Warm, dry with normal turgor. Normal color with no rashes, no lesions, and no evidence of cellulitis. MS/ Extremity: Pulses equal, no cyanosis. Neurovascular intact. Full, normal range of motion. Neuro: Awake and alert, GCS 15, oriented to person, place, time, and situation. Cranial nerves II-XII grossly intact. Motor strength 5/5 in all extremities. Sensory grossly intact. Cerebellar exam normal. Normal gait. Psych: Awake, alert, with orientation to person, place and time. Behavior, mood, and affect are within normal limits. Vital Signs: 03:36 BP 176 / 117; Pulse 90; Resp 18; Temp 98; Pulse Ox 100% ; ea 04:39 BP 174 / 111; Pulse 96; Resp 18; Temp 98.0; Pulse Ox 100% ; ea 06:20 BP 144 / 99; Pulse 96; Resp 19; Pulse Ox 100% ; ea 07:27 BP 157 / 99; Pulse 98; Resp 20; Temp 98; Pulse Ox 100% ; bp MDM: 07:02 Differential diagnosis: acute myocardial infarction, acute pericarditis, anxiety, mh7 coronary artery disease chest wall pain, costochondritis, myocarditis, pericarditis, pneumonia. HEART Score: History: Slightly Suspicious (0), ECG: Non specific repolarization disturbance / LBTB / PM (1), Age: < or = 45 years (0), Risk Factors: 1 or 2 risk factors (1), [Hypertension] Troponin: < or = 1 x Normal Limit (0), Total Score = 2. Data reviewed: vital signs, nurses notes, EMS record, old medical records, lab test result(s), cardiac enzymes, CBC, electrolytes, EKG, radiologic studies, plain films. Data interpreted: Pulse oximetry: on room air is 100 %. Interpretation: normal. Counseling: I had a detailed discussion with the patient and/or guardian regarding: the historical points, exam findings, and any diagnostic results supporting the discharge/admit diagnosis, the presence of at least one elevated blood pressure reading (>120/80) during this emergency department visit, lab results, radiology results, the need for outpatient follow up, to return to the emergency department if symptoms worsen or persist or if there are any questions or concerns that arise at home. Response to treatment: the patient's symptoms have resolved after treatment, the patient's blood pressure is in an acceptable range, mental status has returned to baseline, the patient no longer shows bradycardia, the patient is not short of breath, the patient is not tachycardic, the patient's pain is gone, the patient's temperature has normalized. ED course: Well appearing, NAD, VSS. Patient refuses to give a urine sample.. 07:04 Patient medically screened. 07/18 03:56 Order name: Basic Metabolic Panel; Complete Time: 05:30 7 07/18 03:56 Order name: CBC with Diff; Complete Time: 05:03 07/18 03:56 Order name: LFT's; Complete Time: 05:30 07/18 03:56 Order name: Magnesium; Complete Time: 05:30 07/18 03:56 Order name: NT PRO-BNP; Complete Time: 05:30 07/18 03:56 Order name: PT-INR; Complete Time: 05:03 07/18 03:56 Order name: Troponin (emerg Dept Use Only); Complete Time: 05:30 07/18 03:56 Order name: XRAY Chest (1 view) [facility] 07/18 04:00 Order name: CPK 07/18 04:48 Order name: Creatine Phosphokinase; Complete Time: 05:30 [facility] 07/18 03:56 Order name: EKG; Complete Time: 03:57 7 07/18 03:56 Order name: Cardiac monitoring; Complete Time: 04:27 07/18 03:56 Order name: EKG - Nurse/Tech; Complete Time: 04:27 07/18 03:56 Order name: IV Saline Lock; Complete Time: 04:27 07/18 03:56 Order name: Labs collected and sent; Complete Time: 04:27 07/18 03:56 Order name: O2 Per Protocol; Complete Time: 04:27 07/18 03:56 Order name: O2 Sat Monitoring; Complete Time: 04:27 7 Administered Medications: 05:12 Drug: hydrOXYzine 50 mg Route: PO; ea 07:28 Follow up: Response: No adverse reaction bp 05:54 Drug: Potassium Effervescent Tablet 50 mEq Route: PO; wh 07:28 Follow up: Response: No adverse reaction bp 05:55 Drug: Zofran (Ondansetron) 4 mg Route: IVP; Site: right antecubital; wh 07:28 Follow up: Response: No adverse reaction bp Disposition: 07/18/20 07:04 Discharged to Home. Impression: Chest pain, unspecified, Anxiety disorder, unspecified. - Condition is Stable. - Discharge Instructions: Nonspecific Chest Pain, [id number], Generalized Anxiety Disorder. - Medication Reconciliation Form, Thank You Letter, Antibiotic Education, Prescription Opioid Use form. - Follow up: Private Physician; When: 1 - 2 days; Reason: Worsening of condition, Recheck today's complaints, Continuance of care, Re-evaluation by your physician. - Problem is an ongoing problem. - Symptoms have improved. Signatures: Dispatcher [employer] [facility] Cindy Grant RN RN Marta Cabrera RN RN Greg Vazquez RN RN jDaniel Nova MD MD 7 Chaka Chinchilla RN bp Corrections: (The following items were deleted from the chart) 04:48 04:00 Creatine Phosphokinase ordered. [facility] EDFL 07:41 07:04 07/18/2020 07:04 Discharged to Home. Impression: Chest pain, unspecified; Anxiety jd3 disorder, unspecified. Condition is Stable. Forms are Medication Reconciliation Form, Thank You Letter, Antibiotic Education, Prescription Opioid Use. Follow up: Private Physician; When: 1 - 2 days; Reason: Worsening of condition, Recheck today's complaints, Continuance of care, Re-evaluation by your physician. Problem is an ongoing problem. Symptoms have improved. 7
[2020-07-18 07:56] VITALS: O2SAT 100
[2020-07-18 07:59] VITALS: BP 157/99; TEMP 98
--- NOTE | 2020-07-18 09:22 | RAD REPORT ---
EXAM DESCRIPTION: Ramiro Single View07/18/2020 5:11 am CLINICAL HISTORY: Chest pain COMPARISON: July 12, 2020 FINDINGS: The lungs appear clear of acute infiltrate. The heart is normal size IMPRESSION: No acute abnormalities displayed
== END 2020-07-18 07:41 | disposition home or self-care (01) ==
LOC: ER 03:32
DX: F41.9 Anxiety disorder, unspecified (principal); I10 Essential (primary) hypertension; E03.9 Hypothyroidism, unspecified; F31.9 Bipolar disorder, unspecified; F17.210 Nicotine dependence, cigarettes, uncomplicated; Z88.5 Allergy status to narcotic agent
CPT/HCPCS: 36415; 71045; 80048; 80076; 82550; 83735; 83880; 84484; 85025; 85610; 93005; 96374; 99285; J2405

== ENCOUNTER 2020-07-19 03:43 | Emergency (ER) | payer OTHER, SELFPAY ==
--- OUTSIDE RECORDS SUMMARY | 2020-07-19 03:46 | XMS REPORT | Continuity of Care Document ---
:1980 Author Organization [facility] t Address [address] [place] [address] Care Team Providers Name Role Phone Dee NQAVI, M Attending Clinician FROILAN ZAPATA Attending Clinician [...] 2020-04-15 2020-04-15 Transition Francisco Price [id number] 00:00:00 00:00:00 of Care Rafaela Morin [id number] Wyatt [id number] Results Test Description Test Time Test [...] = PREGU) Negative STAT LAB URINALYSIS WITHOUT [id number] 17:08:00 Test Item Value Reference Range Interpretation Comments Color (test code = UCOLR) Light yellow Lt. Yellow A Clarity (test code = UCLAR) Clear Glucose (test code = UGLUC) Negative Negative N Bilirubin (test code = UBILI) Negative Negative N Ketones (test code = UKET) Negative Negative N Specific [place] (test code = 1.015 1.005-1.030 A USPGR) Blood (test code = UBLD) Negative Negative N PH (test code = UPH) 5.5 4.5-8.0 A Protein (test code = UPROT) Negative Negative N Urobilinogen (test code = U 0.2 >0.2 N UROB) Nitrite (test code = UNITR) Negative Negative N Leukocyte Esterase (test code = Negative Negative N ULEUK) [id number] 16:39:00 Test Item Value Reference Range Interpretation Comments Lipase (test code = LIPA) 178 U/L 73-393 [id number] 16:39:00 Test Item Value Reference Range Interpretation [...] 4 - SerumAlbu min)] EGFR if >60 Micronesian (test code mL/min/1.73m\ = EGFRAA) S\2 EGFR if Non- >60 Estimate d Glomerular Micronesian (test code mL/min/1.73m\ Filtrat ion Rate (eGFR) [...] kidney failure. STAT LAB CBC WITH AUTO [id number] 16:16:00 Test Item Value Reference Range Interpretation [...] 0.4 % 0.0-0.4 XR ELBOW MIN 3 [id number] 17:59:10Procedure: XR ELBOW MIN 3 VIEWSOrder Date: 08/19/2019 2:54 PMOrdering Provider: FIONA Vincentinical Indication: [id number]: Pain of left elbow jointComparison: NoneFINDINGS:There is [...]
--- NOTE | 2020-07-19 04:32 | ER ---
Nurse's Notes [facility] Name: Denise Wick Age: 40 yrs Sex: Female : 1980 Arrival Date: 07/19/2020 Time: 03:44 Bed 20 Private MD: Diagnosis: Hypertension;Headache Presentation: 07/19 03:55 Chief complaint: Patient states: Reports she started having chest pain this AM. Reports ea she came to ED in the AM. Denies drug or alcohol use. Reports she is prescribed blood pressure meds but is out of them. Coronavirus screen: At this time, the client does not indicate any symptoms associated with coronavirus-19. Ebola Screen: No symptoms or risks identified at this time. Initial Sepsis Screen: Does the patient meet any 2 criteria? No. Patient's initial sepsis screen is negative. Does the patient have a suspected source of infection? No. Patient's initial sepsis screen is negative. Risk Assessment: Do you want to hurt yourself or someone else? Patient reports no desire to harm self or others. Onset of symptoms was July 19, 2020. 03:55 Method Of Arrival: EMS: [facility] ea 03:55 Acuity: CHRISTINA 3 ea Triage Assessment: 03:59 General: Appears in no apparent distress. Behavior is cooperative. Pain: Complains of ea pain in anterior aspect of left upper chest. 04:00 Neuro: Level of Consciousness is awake, alert, obeys commands, Oriented to person, ea place, time. Respiratory: Airway is patent Respiratory effort is even, unlabored, Respiratory pattern is regular, symmetrical. Derm: Skin is pink, warm \T\ dry. 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 - Social history:: Smoking status: Patient reports the use of cigarette tobacco products, smokes one-half pack cigarettes per day. Screenin:57 Abuse screen: Denies threats or abuse. Nutritional screening: No deficits noted. ea Tuberculosis screening: No symptoms or risk factors identified. Fall Risk None identified. Assessment: 05:55 General: Appears in no apparent distress. Behavior is calm. Pain: Denies pain. Neuro: lp1 Level of Consciousness is awake, alert, obeys commands, Reports headache. Cardiovascular: Patient's skin is warm and dry. Respiratory: Respiratory effort is even, unlabored, Respiratory pattern is regular. GI: No signs and/or symptoms were reported involving the gastrointestinal system. : No signs and/or symptoms were reported regarding the genitourinary system. EENT: No signs and/or symptoms were reported regarding the EENT system. Derm: Skin is pink, warm \T\ dry. Musculoskeletal: No deficits noted. 06:53 Reassessment: Patient resting, reports light sensitivity. lp1 07:32 General: Appears in no apparent distress. comfortable, Behavior is calm, cooperative, jd3 appropriate for age. Pain: Complains of pain in head Quality of pain is described as aching. Neuro: Level of Consciousness is awake, alert, obeys commands, Oriented to person, place, time, situation. Cardiovascular: Capillary refill < 3 seconds Patient's skin is warm and dry. Respiratory: Airway is patent Respiratory effort is even, unlabored, Respiratory pattern is regular, symmetrical. GI: No signs and/or symptoms were reported involving the gastrointestinal system. : No signs and/or symptoms were reported regarding the genitourinary system. EENT: No signs and/or symptoms were reported regarding the EENT system. Derm: Skin is intact, Skin is dry, Skin is normal, Skin temperature is warm. Musculoskeletal: Circulation, motion, and sensation intact. Range of motion: intact in all extremities. 08:11 Reassessment: Patient appears in no apparent distress at this time. Patient and/or jd3 family updated on plan of care and expected duration. Pain level reassessed. Patient is alert, oriented x 3, equal unlabored respirations, skin warm/dry/pink. Patient states feeling better. 08:54 Reassessment: Patient appears in no apparent distress at this time. Patient and/or jd3 family updated on plan of care and expected duration. Pain level reassessed. Patient is alert, oriented x 3, equal unlabored respirations, skin warm/dry/pink. pt with even and steady gait upon discharge to [facility]. Vital Signs: 03:55 BP 155 / 112; Pulse 87; Resp 18; Temp 97.8; Pulse Ox 99% ; Weight 79.38 kg; Height 5 ea ft. 6 in. (167.64 cm); Pain 9/10; 05:54 BP 171 / 119; Pulse 93; Resp 18; Pulse Ox 97% on R/A; lp1 06:54 BP 171 / 109; Pulse 90; Resp 17; Pulse Ox 99% on R/A; lp1 07:33 BP 152 / 99; Pulse 89; Resp 19 S; Pulse Ox 98% on R/A; jd3 08:12 BP 146 / 96; Pulse 89; Resp 17 S; Pulse Ox 97% on R/A; jd3 03:55 Body Mass Index 28.25 (79.38 kg, 167.64 cm) ea ED Course: 03:44 Patient arrived in ED. am2 03:57 Triage completed. ea 04:00 Arm band placed on right wrist. ea 05:48 Trudi Slater, RN is Primary Nurse. lp1 05:50 Patient has correct armband on for positive identification. Placed in gown. Bed in low lp1 position. vision mixer on. Pulse ox on. NIBP on. 06:10 Daniel Chowdhury MD is Attending Physician. 7 06:30 Inserted saline lock: 20 gauge in right antecubital area, using aseptic technique. lp1 Blood collected. 06:30 Initial lab(s) drawn, by ks, sent to lab. lp1 06:41 CT Head Brain wo Cont In Process Unspecified. EDMS 07:11 XRAY Chest (1 view) In Process Unspecified. EDMS 07:16 Attending Physician role handed off by Daniel Chowdhury MD rn 07:16 Noah Steven MD is Attending Physician. rn 07:20 ED physician to see patient. jd3 08:13 No provider procedures requiring assistance completed. jd3 08:53 IV discontinued, intact, bleeding controlled, No redness/swelling at site. Pressure jd3 dressing applied. Administered Medications: 06:52 Drug: Reglan 10 mg Route: IVP; Site: right antecubital; lp1 07:47 Follow up: Response: No adverse reaction jd3 06:53 Drug: Benadryl 50 mg Route: IVP; Site: right antecubital; lp1 07:47 Follow up: Response: No adverse reaction jd3 07:09 Drug: Lisinopril 10 mg Route: PO; fu 08:11 Follow up: Response: No adverse reaction jd3 08:08 Drug: Potassium Chloride 40 mEq Route: PO; jd3 08:55 Follow up: Response: No adverse reaction jd3 Outcome: 08:03 Discharge ordered by . rn 08:53 Discharged to home ambulatory. jd3 08:53 Condition: stable 08:53 Discharge instructions given to patient, Instructed on discharge instructions, follow up and referral plans. medication usage, Demonstrated understanding of instructions, follow-up care, medications. 08:55 Patient left the ED. jd3 Signatures: Dispatcher [employer] EDMS Noah Steven MD MD rn Pena, Laura, RN RN lp1 Mena Lopes am2 Cindy Grant RN RN ea Davies, Jonathon, RN RN jd3 Umadhay, Felix, RN RN fu Holmes, Maurice, MD MD mh7 Corrections: (The following items were deleted from the chart) 03:59 03:55 Chief complaint: Patient states: Reports she started having chest pain this AM. ea Reports she came to ED in the AM. Denies drug or alcohol use ea 04:39 04:31 Eloped from waiting room, before seeing physician Time discovered patient gone: lp1 July 19, 2020 at 04:31 lp1 04:39 04:32 Patient left the ED. lp1 lp1 06:33 06:33 Patient has correct armband on for positive identification. Placed in gown. Bed lp1 in low position. lp1 06:33 06:33 vision mixer on. Pulse ox on. NIBP on. lp1 lp1
[2020-07-19 04:36] VITALS: TEMP 97.8
[2020-07-19 06:42] LABS: Basophils % 0.9 % (0-1.3); Hematocrit 44.6 % (36.0-45.0); Lymphocytes % 22.8 % (15.3-44.8); MPV 8.1 fL (7.6-11.3); RBC Red Blood Cell Count 4.92 M/uL (3.86-4.86)
[2020-07-19 06:45] LABS: Protime INR 1.05
[2020-07-19] MEDS ORDERED: METOCLOPRAMIDE 10 MG/2mL INJ ONE (06:51)
[2020-07-19] MEDS ORDERED: DIPHENHYDRAMINE 50 MG/ML VIAL ONE (06:51)
[2020-07-19] MEDS ORDERED: NA CHLORIDE 0.9% 1,000 ML ONE (06:52)
[2020-07-19 07:05] LABS: ALT/SGPT 83 U/L (12-78); AST/SGOT 58 U/L (15-37); Albumin 3.8 g/dL (3.4-5.0); Alkaline Phosphatase 107 U/L (45-117); BUN Blood Urea Nitrogen 6 mg/dL (7-18); Bicarbonate 29 mmol/L (21-32); Bilirubin Direct < 0.1 mg/dL (0-0.2); Bilirubin Total 0.3 mg/dL (0.2-1.0); Glucose Level 95 mg/dL (74-106); Magnesium 1.9 mg/dL (1.8-2.4); NT PRO-BNP 400 pg/mL (<125); Potassium 3.3 mmol/L (3.5-5.1); Protein, Total 8.2 g/dL (6.4-8.2); Sodium Level 138 mmol/L (136-145); Troponin (Emerg Dept Use Only) < 0.02 ng/mL (0.0-0.045)
[2020-07-19] MEDS ORDERED: lisinopriL 10 MG TAB ONE (07:22)
--- NOTE | 2020-07-19 07:32 | RAD REPORT ---
EXAM DESCRIPTION: CT - Head Brain Wo Cont - 07/19/2020 6:41 am CLINICAL HISTORY: HEADACHE COMPARISON: No comparisons TECHNIQUE: Axial 5 mm thick images of the head were obtained without IV contrast. All CT scans are performed using dose optimization technique as appropriate and may include automated exposure control or mA/KV adjustment according to patient size. FINDINGS: No intracranial hemorrhage, mass, edema or shift of mid-line structures. No acute infarcti on changes seen. No abnormal extra-axial fluid collections. Ventricles are normal. Mastoid air cells and visualized portions of the paranasal sinuses are clear. No acute bony findings. IMPRESSION: Negative non-contrast CT head examination.
--- NOTE | 2020-07-19 08:05 | EDPHYS ---
Physician Documentation [facility] Name: Denise Wick Age: 40 yrs Sex: Female : 1980 Arrival Date: 07/19/2020 Time: 03:44 Bed 20 Private MD: ED Physician Noah Steven HPI: 07/19 06:39 This 40 yrs old Female presents to ER via EMS with complaints of Headache, mh7 Nausea/Vomiting. Ches pain. 06:40 The patient or guardian reports chest pain that is located primarily in the anterior mh7 chest wall, bilaterally. Onset: today. The pain does not radiate. Associated signs and symptoms: Pertinent positives: headache, nausea, Pertinent negatives: abdominal pain, cough, diaphoresis, dizziness, lower extremity pain, lower extremity swelling, lightheadedness, near syncope, palpitations, recent travel, shortness of breath, syncope, vomiting. 06:41 The chest pain is described as sharp. Duration: The patient or guardian reports mh7 multiple episodes, that are intermittent, that wax and wane. Modifying factors: The symptoms are alleviated by nothing. the symptoms are aggravated by nothing. Severity of pain: At its worst the pain was moderate today, in the emergency department the pain has improved moderately. The patient has experienced similar episodes in the past, chronically. 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 - Social history:: Smoking status: Patient reports the use of cigarette tobacco products, smokes one-half pack cigarettes per day. ROS: 06:41 Constitutional: Negative for fever, chills, and weight loss, Eyes: Negative for injury, mh7 pain, redness, and discharge, ENT: Negative for injury, pain, and discharge, Neck: Negative for injury, pain, and swelling, Respiratory: Negative for shortness of breath, cough, wheezing, and pleuritic chest pain, Back: Negative for injury and pain, : Negative for injury, bleeding, discharge, and swelling, MS/Extremity: Negative for injury and deformity, Skin: Negative for injury, rash, and discoloration, Psych: Negative for depression, anxiety, suicide ideation, homicidal ideation, and hallucinations, Allergy/Immunology: Negative for hives, rash, and allergies, Endocrine: Negative for neck swelling, polydipsia, polyuria, polyphagia, and marked weight changes, Hematologic/Lymphatic: Negative for swollen nodes, abnormal bleeding, and unusual bruising. Exam: 06:41 Constitutional: This is a well developed, well nourished patient who is awake, alert, mh7 and in no acute distress. Head/Face: Normocephalic, atraumatic. Eyes: Pupils equal round and reactive to light, extra-ocular motions intact. Lids and lashes normal. Conjunctiva and sclera are non-icteric and not injected. Cornea within normal limits. Periorbital areas with no swelling, redness, or edema. Neck: Trachea midline, no thyromegaly or masses palpated, and no cervical lymphadenopathy. Supple, full range of motion without nuchal rigidity, or vertebral point tenderness. No Meningismus. Chest/axilla: Normal chest wall appearance and motion. Nontender with no deformity. No lesions are appreciated. Cardiovascular: Regular rate and rhythm with a normal S1 and S2. No gallops, murmurs, or rubs. Normal PMI, no JVD. No pulse deficits. Respiratory: Lungs have equal breath sounds bilaterally, clear to auscultation and percussion. No rales, rhonchi or wheezes noted. No increased work of breathing, no retractions or nasal flaring. Abdomen/GI: Soft, non-tender, with normal bowel sounds. No distension or tympany. No guarding or rebound. No evidence of tenderness throughout. Back: No spinal tenderness. No costovertebral tenderness. Full range of motion. Skin: Warm, dry with normal turgor. Normal color with no rashes, no lesions, and no evidence of cellulitis. MS/ Extremity: Pulses equal, no cyanosis. Neurovascular intact. Full, normal range of motion. Neuro: Awake and alert, GCS 15, oriented to person, place, time, and situation. Cranial nerves II-XII grossly intact. Motor strength 5/5 in all extremities. Sensory grossly intact. Cerebellar exam normal. Normal gait. Psych: Awake, alert, with orientation to person, place and time. Behavior, mood, and affect are within normal limits. Vital Signs: 03:55 BP 155 / 112; Pulse 87; Resp 18; Temp 97.8; Pulse Ox 99% ; Weight 79.38 kg; Height 5 ea ft. 6 in. (167.64 cm); Pain 9/10; 05:54 BP 171 / 119; Pulse 93; Resp 18; Pulse Ox 97% on R/A; lp1 06:54 BP 171 / 109; Pulse 90; Resp 17; Pulse Ox 99% on R/A; lp1 07:33 BP 152 / 99; Pulse 89; Resp 19 S; Pulse Ox 98% on R/A; jd3 08:12 BP 146 / 96; Pulse 89; Resp 17 S; Pulse Ox 97% on R/A; jd3 03:55 Body Mass Index 28.25 (79.38 kg, 167.64 cm) ea MDM: 04:32 Medical screening is not applicable. lp1 07:18 ED course: Signed out to me by Dr. Chowdhury, pending labs and ct head, plan was to dc rn home with ct head neg and felt like headache likely 2/2 hypertension and non-compliance with medication.. 08:00 Differential diagnosis: acute pericarditis, anxiety, chest wall pain, costochondritis, rn pleurisy, pneumothorax, stable angina. Counseling: I had a detailed discussion with the patient and/or guardian regarding: the historical points, exam findings, and any diagnostic results supporting the discharge/admit diagnosis, the presence of at least one elevated blood pressure reading (>120/80) during this emergency department visit, lab results, radiology results, the need for outpatient follow up, to return to the emergency department if symptoms worsen or persist or if there are any questions or concerns that arise at home. Response to treatment: the patient's symptoms have markedly improved after treatment, and as a result, I will discharge patient. Special discussion: I discussed with the patient/guardian in detail that at this point there is no indication for admission to the hospital. It is understood, however, that if the symptoms persist or worsen the patient needs to return immediately for re-evaluation. Based on the history and exam findings, there is no indication for further emergent testing or inpatient evaluation. I discussed with the patient/guardian the need to see the primary care provider for further evaluation of the symptoms. ED course: CT head without acute findings, BP improved with 20mg lisinopril, cxr clear of acute infiltrate, trop neg. . 08:03 Data reviewed: vital signs, nurses notes, lab test result(s), EKG, radiologic studies, rn CT scan, plain films, and as a result, I will discharge patient. 07/19 06:21 Order name: Basic Metabolic Panel; Complete Time: 07:07/19 06:21 Order name: CBC with Diff; Complete Time: 07:07/19 06:21 Order name: LFT's; Complete Time: 07:07/19 06:21 Order name: Magnesium; Complete Time: 07:07/19 06:21 Order name: NT PRO-BNP; Complete Time: 07:07/19 06:21 Order name: PT-INR; Complete Time: 07:07/19 06:21 Order name: Troponin (emerg Dept Use Only); Complete Time: 07:07/19 06:21 Order name: XRAY Chest (1 view); Complete Time: 08:21 07/19 06:21 Order name: ETOH Level; Complete Time: 07:07/19 06:21 Order name: CT Head Brain wo Cont; Complete Time: 07:07/19 06:21 Order name: EKG; Complete Time: 06:22 07/19 06:21 Order name: Cardiac monitoring; Complete Time: 06:34 07/19 06:21 Order name: EKG - Nurse/Tech; Complete Time: 06:34 07/19 06:21 Order name: IV Saline Lock; Complete Time: 06:34 07/19 06:21 Order name: Labs collected and sent; Complete Time: 06:34 07/19 06:21 Order name: O2 Per Protocol; Complete Time: 06:07/19 06:21 Order name: O2 Sat Monitoring; Complete Time: 06:34 [facility] Administered Medications: 06:52 Drug: Reglan 10 mg Route: IVP; Site: right antecubital; lp1 07:47 Follow up: Response: No adverse reaction jd3 06:53 Drug: Benadryl 50 mg Route: IVP; Site: right antecubital; lp1 07:47 Follow up: Response: No adverse reaction jd3 07:09 Drug: Lisinopril 10 mg Route: PO; fu 08:11 Follow up: Response: No adverse reaction jd3 08:08 Drug: Potassium Chloride 40 mEq Route: PO; jd3 08:55 Follow up: Response: No adverse reaction jd3 Disposition: 07/19/20 08:03 Discharged to Home. Impression: Hypertension, Headache. - Condition is Stable. - Discharge Instructions: Migraine Headache, Hypertension. - Prescriptions for Lisinopril 20 mg Oral Tablet - take 1 tablet by ORAL route once daily; 60 tablet. - Medication Reconciliation Form, Thank You Letter, Antibiotic Education, Prescription Opioid Use form. - Follow up: Private Physician; When: As needed; Reason: Recheck today's complaints, Re-evaluation by your physician. - Problem is new. - Symptoms have improved. Signatures: Dispatcher [employer] EDMS Noah Steven MD MD rn Pena, Laura RN RN lp1 Cindy Grant RN Greg Ochoa ea, RN RN jd3 Amol Gutierrez RN RN fu Holmes, Maurice, MD MD 7 Corrections: (The following items were deleted from the chart) 04:39 04:32 07/19/2020 04:32 Patient left the facility before being seen by provider. Reason lp1 stated they are leaving due to unknown. lp1 08:55 08:03 07/19/2020 08:03 Discharged to Home. Impression: Hypertension; Headache. jd3 Condition is Stable. Prescriptions for Lisinopril 20 mg Oral Tablet - take 1 tablet by ORAL route once daily; 60 tablet. and Forms are Medication Reconciliation Form, Thank You Letter, Antibiotic Education, Prescription Opioid Use. Follow up: Private Physician; When: As needed; Reason: Recheck today's complaints, Re-evaluation by your physician. Problem is new. Symptoms have improved. rn
--- NOTE | 2020-07-19 08:17 | RAD REPORT ---
EXAM DESCRIPTION: RAD - Chest Single View - 07/19/2020 7:11 am CLINICAL HISTORY: CHEST PAIN COMPARISON: Portable July 18 TECHNIQUE: AP portable chest image was obtained 07/19/2020 7:11 am . FINDINGS: No peripheral mass or consolidation. Interstitial pattern is not significantly different f rom comparison. There is a baseline prominence that could mask minimal edema or infiltrate. Heart and vasculature are normal. No measurable pleural effusion and no pneumothorax. No acute bony abnormalit y seen. No acute aortic findings suspected. IMPRESSION: No focal mass or consolidation. Mildly prominent interstitial pattern, similar to comparison, could potentially mask minimal intersti tial edema or infiltrate.
[2020-07-19] MEDS ORDERED: POTASSIUM CL SA 10 MEQ TAB PO ONE (08:20)
[2020-07-19 09:07] VITALS: BP 146/96; O2SAT 97
--- NOTE | 2020-07-20 07:32 | EKG ---
Test Date: 2020-07-19 Test Time: 03:50:15 Direct Selling Counselor: HERNAN MEASUREMENT RESULTS: Intervals: Rate: 98 TX: 104 QRSD: 102 QT: 366 QTc: 467 [place]: P: 33 TX: 104 QRS: 56 T: -3 INTERPRETIVE STATEMENTS: Sinus rhythm with sinus arrhythmia with short TX with occasional premature ventricular complexes Nonspecific ST and T wave abnormality Prolonged QT Abnormal ECG Compared to ECG 07/14/2020 05:14:02 ST (T wave) deviation now present Prolonged QT interval now present Electronically Signed On 07-20-20 07:30:10 ROUTING CLERK by Reggie Laguna
== END 2020-07-19 08:55 | disposition home or self-care (01) ==
LOC: ER 03:43
DX: I10 Essential (primary) hypertension (principal); E03.9 Hypothyroidism, unspecified; F31.9 Bipolar disorder, unspecified; Z88.5 Allergy status to narcotic agent
CPT/HCPCS: 36415; 70450; 71045; 80048; 80076; 80320; 83735; 83880; 84484; 85025; 85610; 93005; 96374; 96375; 99284; J1200; J2765; J7030

== ENCOUNTER 2020-07-21 13:49 | Emergency (ER) | payer OTHER ==
--- OUTSIDE RECORDS SUMMARY | 2020-07-21 13:55 | XMS REPORT | Continuity of Care Document ---
:1980 Author Organization [facility] t Address [address] [place] [address] Care Team Providers Name Role Phone Dee [...] 2020-04-15 2020-04-15 Transition Francisco Price [id number] 00:00:00 00:00:00 of Care Rafaela Morin [id number] Wyatt [phone] [id number] Results Test Description Test Time Test [...] = PREGU) Negative STAT LAB URINALYSIS WITHOUT [id number] 17:08:00 Test Item Value Reference Range Interpretation Comments Color (test code = UCOLR) Light yellow Lt. Yellow A Clarity (test code = UCLAR) Clear Glucose (test code = UGLUC) Negative Negative N Bilirubin (test code = UBILI) Negative Negative N Ketones (test code = UKET) Negative Negative N Specific [place] (test code = 1.015 1.005-1.030 A USPGR) Blood (test code = UBLD) Negative Negative N PH (test code = UPH) 5.5 4.5-8.0 A Protein (test code = UPROT) Negative Negative N Urobilinogen (test code = U 0.2 >0.2 N UROB) Nitrite (test code = UNITR) Negative Negative N Leukocyte Esterase (test code = Negative Negative N ULEUK) [id number] 16:39:00 Test Item Value Reference Range Interpretation Comments Lipase (test code = LIPA) 178 U/L 73-393 [id number] 16:39:00 Test Item Value Reference Range Interpretation [...] 4 - SerumAlbu min)] EGFR if >60 [place] (test code mL/min/1.73m\ = EGFRAA) S\2 EGFR if Non- >60 Estimate d Glomerular [place] (test code mL/min/1.73m\ Filtrat ion Rate (eGFR) [...] kidney failure. STAT LAB CBC WITH AUTO [id number] 16:16:00 Test Item Value Reference Range Interpretation [...] 0.4 % 0.0-0.4 XR ELBOW MIN 3 [id number] 17:59:10Procedure: XR ELBOW MIN 3 VIEWSOrder Date: 08/19/2019 2:54 PMOrdering Provider: FIONA Vincentinical Indication: [id number]: Pain of left elbow jointComparison: NoneFINDINGS:There is [...]
[2020-07-21 15:21] LABS: Absolute Lymphocytes (CBC) 2.2 K/uL (0.7-4.9); Basophils % 1.3 % (0-1.3); Hematocrit 42.6 % (36.0-45.0); Lymphocytes % 21.6 % (15.3-44.8); MPV 7.9 fL (7.6-11.3); RBC Red Blood Cell Count 4.67 M/uL (3.86-4.86)
[2020-07-21] MEDS ORDERED: ASPIRIN 81 MG CHEWABLE TABLET ONE (15:29)
[2020-07-21] MEDS ORDERED: NA CHLORIDE 0.9% 500 ML ONE (15:30)
[2020-07-21] MEDS ORDERED: LORazepam 2 MG/ML VIAL ONE (15:30)
[2020-07-21 15:40] LABS: Protime INR 0.99
[2020-07-21 15:52] LABS: ALT/SGPT 82 U/L (12-78); AST/SGOT 84 U/L (15-37); Albumin 3.9 g/dL (3.4-5.0); Alkaline Phosphatase 104 U/L (45-117); BUN Blood Urea Nitrogen 8 mg/dL (7-18); Bicarbonate 28 mmol/L (21-32); Bilirubin Direct < 0.1 mg/dL (0-0.2); Bilirubin Total 0.3 mg/dL (0.2-1.0); Glucose Level 106 mg/dL (74-106); Lipase 123 U/L (73-393); Magnesium 1.8 mg/dL (1.8-2.4); NT PRO-BNP 209 pg/mL (<125); Potassium 3.2 mmol/L (3.5-5.1); Protein, Total 7.9 g/dL (6.4-8.2); Sodium Level 139 mmol/L (136-145); Troponin (Emerg Dept Use Only) < 0.02 ng/mL (0.0-0.045)
--- NOTE | 2020-07-21 16:19 | RAD REPORT ---
EXAM DESCRIPTION: Ramiro Single View07/21/2020 3:19 pm CLINICAL HISTORY: Chest pain COMPARISON: July 19, 2020 FINDINGS: The lungs appear clear of acute infiltrate. The heart is normal size IMPRESSION: No acute abnormalities displayed
[2020-07-21 16:41] LABS: Urine Blood NEGATIVE (NEG); Urine Glucose NEGATIVE (NEG); Urine Protein NEGATIVE (NEG); Urine pH 6.5 (5.0-7.0)
[2020-07-21] MEDS ORDERED: POTASSIUM 25 MEQ EFFERV TAB ONE (16:47)
[2020-07-21 16:48] LABS: Barbiturates NEGATIVE (NEGATIVE); Benzodiazepines NEGATIVE (NEGATIVE); Cocaine NEGATIVE (NEGATIVE); METHAMPHETAM POSITIVE (NEGATIVE); Methadone NEGATIVE (NEGATIVE); Opiates NEGATIVE (NEGATIVE); Phencyclidine NEGATIVE (NEGATIVE); THC Cannibis NEGATIVE (NEGATIVE)
--- NOTE | 2020-07-21 17:36 | RAD REPORT ---
EXAM DESCRIPTION: CT - Chest For Pe Angio - 07/21/2020 5:18 pm CLINICAL HISTORY: Chest pain COMPARISON: None. TECHNIQUE: Dynamically enhanced axial 3 mm thick images of the chest were obtained during administra tion of <100> mL Isovue 370 IV contrast. Coronal and oblique reconstruction images were generated and reviewed. Exam utilizes a protocol for optimal evaluation of pulmonary arterial tree. Maximum intensity projections 3D imaging was utilized All CT scans are performed using dose optimization technique as appropriate and may include automated exposure control or mA/KV adjustment according to patient size. FINDINGS: Some of the images in the peripheral pulmonary arteries is somewhat suboptimal secondary t o respiratory motion artifact. No central pulmonary embolus seen. A thoracic aortic aneurysm is not noted. A pleural effusion is not seen. A pericardial effusion is not seen. A lung consolidation is not present. Small hiatal hernia IMPRESSION: Negative for a central pulmonary embolism.
--- NOTE | 2020-07-21 17:42 | ER ---
Nurse's Notes [facility] Name: Denise Wick Age: 40 yrs Sex: Female : 1980 Arrival Date: 07/21/2020 Time: 13:59 Bed 7 Private MD: Diagnosis: Adverse effect of amphetamines;Bipolar disorder;Other chest pain;Hypokalemia Presentation: 07/21 14:07 Chief complaint: Patient states: chest pain that began today. Pt is restless and ss hyperventilating. Reports she took recreational drugs 3 days ago. 14:07 Method Of Arrival: EMS: [facility] ss 14:26 Onset of symptoms was July 21, 2020. ss 14:26 Acuity: CHRISTINA 2 ss 14:29 Initial Sepsis Screen: Does the patient have a suspected source of infection? No. ss Patient's initial sepsis screen is negative. Risk Assessment: Do you want to hurt yourself or someone else? Patient reports no desire to harm self or others. 15:00 Coronavirus screen: At this time, unable to obtain information related to travel sv outside the [place] Ebola Screen: No symptoms or risks identified at this time. Initial Sepsis Screen: Does the patient meet any 2 criteria? RR > 20 per min. HR > 90 bpm. No. Patient's initial sepsis screen is negative. Does the patient have a suspected source of infection? No. Patient's initial sepsis screen is negative. Historical: - Allergies: 14:28 Codeine; ss 14:28 tramadol (rash); ss - PMHx: 14:28 Angina; Anxiety; Bipolar disorder; cardiomyopathy; Hypertension; Hypothyroidism; ss - PSHx: 14:28 ; Tubal ligation; ss - Immunization history:: Adult Immunizations up to date. - Social history:: Smoking status: Patient reports the use of cigarette tobacco products, smokes one pack cigarettes per day. Patient uses street drugs, Methamphetamine (Meth). - Family history:: not pertinent. Screenin:05 Abuse screen: Denies threats or abuse. Denies injuries from another. Nutritional sv screening: No deficits noted. Tuberculosis screening: No symptoms or risk factors identified. Fall Risk None identified. Assessment: 14:28 Reassessment: Pt is in triage. Calling her over and over on the phone while ss attempting to obtain EKG. Is restless, anxious, panting and hyperventilating. Calms down when she gets on the phone. Pt admits to using Meth 3 days ago. 15:00 General: Appears in no apparent distress. uncomfortable, Behavior is anxious, fussy, sv restless. Pain: Complains of pain in chest Pain does not radiate. Pain began today. Neuro: Level of Consciousness is awake, alert, obeys commands, Oriented to person, place, time, situation, Moves all extremities. Full function Speech is normal. Cardiovascular: Patient's skin is warm and dry. Pulses are palpable in right radial artery and left radial artery Rhythm is sinus tachycardia. Respiratory: Airway is patent Respiratory effort is even, unlabored, Respiratory pattern is symmetrical, tachypnea. Derm: Skin is pink, warm \T\ dry. Musculoskeletal: Range of motion: intact in all extremities. 15:20 Reassessment: Patient appears in no apparent distress at this time. No changes from sv previously documented assessment. Patient and/or family updated on plan of care and expected duration. Pain level reassessed. Patient is alert, oriented x 3, equal unlabored respirations, skin warm/dry/pink. 16:39 Reassessment: Patient appears in no apparent distress at this time. Patient and/or sv family updated on plan of care and expected duration. Pain level reassessed. Patient is alert, oriented x 3, equal unlabored respirations, skin warm/dry/pink. 18:20 Reassessment: Patient appears in no apparent distress at this time. Patient and/or sv family updated on plan of care and expected duration. Pain level reassessed. Patient is alert, oriented x 3, equal unlabored respirations, skin warm/dry/pink. Vital Signs: 14:26 BP 143 / 101; Pulse 144; Resp 52; Temp 98.5(TE); Pulse Ox 99% on R/A; ss 15:27 BP 125 / 83; Pulse 117 MON; Resp 25; Pulse Ox 100% on R/A; sv 16:39 BP 118 / 81; Pulse 105; Resp 22; Pulse Ox 99% ; sv 18:00 BP 117 / 91; Pulse 108; Resp 20; Pulse Ox 100% on R/A; sv 15:27 Sinus tachycardia sv ED Course: 13:59 Patient arrived in ED. ss 14:27 Triage completed. ss 14:28 Arm band placed on left wrist. ss 14:32 EKG done, by ED staff, reviewed by Bruno Ferrell MD. dh3 14:40 Bruno Ferrell MD is Attending Physician. johnny 15:01 Lisa Brandon, DRISS is Primary Nurse. sv 15:05 Patient has correct armband on for positive identification. Placed in gown. Bed in low sv position. Call light in reach. Side rails up X 1. vehicle monitor technician on. Pulse ox on. NIBP on. Door closed. Head of bed elevated. 15:05 Inserted saline lock: 20 gauge in right antecubital area, using aseptic technique. sv Blood collected. Flushed right antecubital with 5 ml normal saline. Patient maintains SpO2 saturation greater than 95% on room air. 15:19 XRAY Chest (1 view) In Process Unspecified. EDMS 15:21 Acetaminophen Sent. sv 15:21 Lipase Sent. sv 15:21 Troponin (emerg Dept Use Only) Sent. sv 15:21 PT-INR Sent. sv 15:21 NT PRO-BNP Sent. sv 15:21 Magnesium Sent. sv 15:21 LFT's Sent. sv 15:21 CBC with Diff Sent. sv 15:21 Basic Metabolic Panel Sent. sv 16:16 Urine collected: clean catch specimen, clear. kj1 17:40 Reggie Laguna MD is Referral Physician. johnny 18:20 No provider procedures requiring assistance completed. IV discontinued, intact, sv bleeding controlled, No redness/swelling at site. Pressure dressing applied. Administered Medications: 15:20 Drug: Aspirin 81 mg Route: PO; sv 16:29 Follow up: Response: No adverse reaction sv 15:20 Drug: Ativan 1 mg Route: IVP; Site: right antecubital; sv 15:40 Follow up: Response: No adverse reaction sv 15:21 Drug: NS 0.9% 500 ml Route: IV; Rate: bolus; Site: right antecubital; sv 16:00 Follow up: Response: No adverse reaction; IV Status: Completed infusion; IV Intake: sv 500ml 16:37 Drug: Ativan 1 mg Route: IVP; Site: right antecubital; sv 17:00 Follow up: Response: No adverse reaction sv 16:37 Drug: Potassium Effervescent Tablet 50 mEq Route: PO; sv 17:12 Follow up: Response: No adverse reaction sv Intake: 16:00 IV: 500ml; Total: 500ml. sv Outcome: 17:42 Discharge ordered by MD. turner 18:20 Discharged to home ambulatory. sv 18:20 Condition: stable 18:20 Discharge instructions given to patient, Instructed on discharge instructions, follow up and referral plans. Demonstrated understanding of instructions, follow-up care. 18:21 Patient left the ED. sv Signatures: Dispatcher [employer] Lisa Garcia RN RN sv Anderson, Corey, MD MD cha Smirch, Shelby, RN RN ss Herrera, Deanna [facility] Jossy Frank kj1
--- NOTE | 2020-07-21 17:43 | EDPHYS ---
Physician Documentation [facility] Name: Denise Wick Age: 40 yrs Sex: Female : 1980 Arrival Date: 07/21/2020 Time: 13:59 Bed 7 Private MD: ED Physician Bruno Ferrell HPI: 07/21 16:10 This 40 yrs old Female presents to ER via EMS with complaints of Chest Pain. johnny 16:10 The patient or guardian reports chest pain that is located primarily in the substernal johnny area, anterior chest wall, bilaterally. Onset: this morning. The pain does not radiate. Associated signs and symptoms: Pertinent positives: lightheadedness, shortness of breath. The chest pain is described as dull. Modifying factors: The symptoms are alleviated by nothing. the symptoms are aggravated by nothing. Severity of pain: At its worst the pain was mild in the emergency department the pain is unchanged. The patient has not experienced similar symptoms in the past. Historical: - Allergies: 14:28 Codeine; ss 14:28 tramadol (rash); ss - PMHx: 14:28 Angina; Anxiety; Bipolar disorder; cardiomyopathy; Hypertension; Hypothyroidism; ss - PSHx: 14:28 ; Tubal ligation; ss - Immunization history:: Adult Immunizations up to date. - Social history:: Smoking status: Patient reports the use of cigarette tobacco products, smokes one pack cigarettes per day. Patient uses street drugs, Methamphetamine (Meth). - Family history:: not pertinent. ROS: 16:10 Constitutional: Negative for fever, chills, and weight loss, Eyes: Negative for injury, johnny pain, redness, and discharge, ENT: Negative for injury, pain, and discharge, Neck: Negative for injury, pain, and swelling, Respiratory: Negative for shortness of breath, cough, wheezing, and pleuritic chest pain, Abdomen/GI: Negative for abdominal pain, nausea, vomiting, diarrhea, and constipation, Back: Negative for injury and pain, : Negative for injury, bleeding, discharge, and swelling, MS/Extremity: Negative for injury and deformity, Skin: Negative for injury, rash, and discoloration, Neuro: Negative for headache, weakness, numbness, tingling, and seizure, Psych: Negative for depression, anxiety, suicide ideation, homicidal ideation, and hallucinations, Allergy/Immunology: Negative for hives, rash, and allergies, Endocrine: Negative for neck swelling, polydipsia, polyuria, polyphagia, and marked weight changes. 16:10 Cardiovascular: Positive for chest pain, of the chest. Exam: 16:10 Constitutional: This is a well developed, well nourished patient who is awake, alert, johnny and in no acute distress. Head/Face: Normocephalic, atraumatic. Eyes: Pupils equal round and reactive to light, extra-ocular motions intact. Lids and lashes normal. Conjunctiva and sclera are non-icteric and not injected. Cornea within normal limits. Periorbital areas with no swelling, redness, or edema. ENT: Nares patent. No nasal discharge, no septal abnormalities noted. Tympanic membranes are normal and external auditory canals are clear. Oropharynx with no redness, swelling, or masses, exudates, or evidence of obstruction, uvula midline. Mucous membranes moist. Neck: Trachea midline, no thyromegaly or masses palpated, and no cervical lymphadenopathy. Supple, full range of motion without nuchal rigidity, or vertebral point tenderness. No Meningismus. Chest/axilla: Normal chest wall appearance and motion. Nontender with no deformity. No lesions are appreciated. Respiratory: Lungs have equal breath sounds bilaterally, clear to auscultation and percussion. No rales, rhonchi or wheezes noted. No increased work of breathing, no retractions or nasal flaring. Abdomen/GI: Soft, non-tender, with normal bowel sounds. No distension or tympany. No guarding or rebound. No evidence of tenderness throughout. Back: No spinal tenderness. No costovertebral tenderness. Full range of motion. Female : Normal external genitalia. Skin: Warm, dry with normal turgor. Normal color with no rashes, no lesions, and no evidence of cellulitis. MS/ Extremity: Pulses equal, no cyanosis. Neurovascular intact. Full, normal range of motion. Neuro: Awake and alert, GCS 15, oriented to person, place, time, and situation. Cranial nerves II-XII grossly intact. Motor strength 5/5 in all extremities. Sensory grossly intact. Cerebellar exam normal. Normal gait. 16:10 Cardiovascular: Rate: tachycardic, Rhythm: regular, Pulses: no pulse deficits are appreciated, Heart sounds: normal, normal S1and S2, no S3 or S4, no murmur, no rub, no gallop, Edema: is not appreciated, JVD: is not appreciated. 16:16 Musculoskeletal/extremity: DVT Exam: No signs of deep vein thrombosis. no pain, no johnny swelling, no tenderness, negative Homans' sign noted on exam, no appreciated bluish discoloration, no erythema, no increased warmth. 16:35 ECG was reviewed by the Attending Physician. johnny Vital Signs: 14:26 BP 143 / 101; Pulse 144; Resp 52; Temp 98.5(TE); Pulse Ox 99% on R/A; ss 15:27 BP 125 / 83; Pulse 117 MON; Resp 25; Pulse Ox 100% on R/A; sv 16:39 BP 118 / 81; Pulse 105; Resp 22; Pulse Ox 99% ; sv 18:00 BP 117 / 91; Pulse 108; Resp 20; Pulse Ox 100% on R/A; sv 15:27 Sinus tachycardia sv MDM: 14:40 Patient medically screened. johnny 16:17 Differential diagnosis: abnormal EKG, acute pericarditis, anxiety, coronary artery johnny disease cholecystitis, Cholelithiasis hiatal hernia, pancreatitis, pneumonia, pulmonary embolus, stable angina, unstable angina. HEART Score: History: Slightly Suspicious (0), ECG: Non specific repolarization disturbance / LBTB / PM (1), Age: < or = 45 years (0), Risk Factors: > or = 3 Risk factors for atherosclerotic disease (2), [Hypercholesterolemia] [Hypertension] [+ Family HX] Troponin: < or = 1 x Normal Limit (0), Total Score = 3. The patient was given aspirin in the Emergency Department. The patient's deep vein thrombosis risk score was calculated as follows: Total Score: 0. This patient was found to be at low risk for a deep vein thrombosis by using the Well's assessment criteria. The patient's pulmonary embolism risk score was calculated as follows: Total Score: 0-2 points. This patient was found to be at low risk for a pulmonary embolism by using the Well's assessment criteria. ADEBAYO Risk Score: 1 - Three or more CAD risk factors, [Family Hx], [HTN], [Active Smoker], TOTAL SCORE =. Data reviewed: vital signs, nurses notes, lab test result(s), EKG, radiologic studies, plain films. Data interpreted: monitoring coordinator: rate is 117 beats/min, rhythm is regular, Pulse oximetry: on room air is 100 %. Test interpretation: by ED physician or midlevel provider: ECG, plain radiologic studies. 07/21 14:43 Order name: Basic Metabolic Panel [facility] 07/21 14:43 Order name: CBC with Diff [facility] 07/21 14:43 Order name: LFT's [facility] 07/21 14:43 Order name: Magnesium [facility] 07/21 14:43 Order name: NT PRO-BNP [facility] 07/21 14:43 Order name: PT-INR [facility] 07/21 14:43 Order name: Troponin (emerg Dept Use Only) [facility] 07/21 14:43 Order name: Lipase [facility] 07/21 14:43 Order name: Acetaminophen [facility] 07/21 14:43 Order name: ETOH Level; Complete Time: 16:05 [facility] 07/21 14:43 Order name: Ptt, Activated; Complete Time: 16:05 [facility] 07/21 14:43 Order name: Salicylate; Complete Time: 16:05 [facility] 07/21 14:43 Order name: Urine Drug Screen; Complete Time: 17:38 [facility] 07/21 14:43 Order name: TSH; Complete Time: 16:05 [facility] 07/21 14:43 Order name: XRAY Chest (1 view); Complete Time: 16:43 [facility] 07/21 14:43 Order name: Basic Metabolic Panel; Complete Time: 16:05 [facility] 07/21 14:43 Order name: CBC with Automated Diff; Complete Time: 16:05 [facility] 07/21 14:43 Order name: Liver (Hepatic) Function; Complete Time: 16:05 [facility] 07/21 14:43 Order name: Magnesium; Complete Time: 16:05 [facility] 07/21 14:43 Order name: NT PRO-BNP; Complete Time: 16:05 [facility] 07/21 14:43 Order name: Protime (+INR); Complete Time: 16:05 [facility] 07/21 14:43 Order name: Troponin (Emerg Dept Use Only); Complete Time: 16:05 [facility] 07/21 14:43 Order name: Lipase; Complete Time: 16:05 [facility] 07/21 14:43 Order name: Acetaminophen Level; Complete Time: 16: [facility] 07/21 16:10 Order name: D-Dimer; Complete Time: 17:38 [facility] 07/21 16:32 Order name: Urine Dipstick--Ancillary (enter results); Complete Time: 16:43 07/21 16:32 Order name: Urine --Ancillary (enter results); Complete Time: 16:43 07/21 16:47 Order name: CT Chest For PE Angio [facility] 07/21 17:37 Order name: CT; Complete Time: 17:38 [facility] 07/21 14:43 Order name: EKG; Complete Time: 14:44 [facility] 07/21 14:43 Order name: Cardiac monitoring; Complete Time: 15:22 [facility] 07/21 14:43 Order name: EKG - Nurse/Tech; Complete Time: 15:22 [facility] 07/21 14:43 Order name: IV Saline Lock; Complete Time: 15:22 [facility] 07/21 14:43 Order name: Labs collected and sent; Complete Time: 15:22 [facility] 07/21 14:43 Order name: O2 Per Protocol; Complete Time: 15:22 [facility] 07/21 14:43 Order name: O2 Sat Monitoring; Complete Time: 15:21 [facility] 07/21 14:43 Order name: Urine Dipstick-Ancillary (obtain specimen); Complete Time: 16:41 [facility] 07/21 14:43 Order name: Urine Test (obtain specimen); Complete Time: 15:21 [facility] EC:35 Rate is 117 beats/min. Rhythm is regular. QRS [place] is Normal. TN interval is normal. johnny QRS interval is normal. QT interval is normal. No Q waves. T waves are Normal. No ST changes noted. Clinical impression: NSR w/ Non-specific ST/T Changes and No evidence of ischemia. Interpreted by me. Reviewed by me. Administered Medications: 15:20 Drug: Aspirin 81 mg Route: PO; sv 16:29 Follow up: Response: No adverse reaction sv 15:20 Drug: Ativan 1 mg Route: IVP; Site: right antecubital; sv 15:40 Follow up: Response: No adverse reaction sv 15:21 Drug: NS 0.9% 500 ml Route: IV; Rate: bolus; Site: right antecubital; sv 16:00 Follow up: Response: No adverse reaction; IV Status: Completed infusion; IV Intake: sv 500ml 16:37 Drug: Ativan 1 mg Route: IVP; Site: right antecubital; sv 17:00 Follow up: Response: No adverse reaction sv 16:37 Drug: Potassium Effervescent Tablet 50 mEq Route: PO; sv 17:12 Follow up: Response: No adverse reaction sv Disposition: 07/21/20 17:42 Discharged to Home. Impression: Adverse effect of amphetamines, Bipolar disorder, Other chest pain, Hypokalemia. - Condition is Stable. - Discharge Instructions: Stimulant Use Disorder-Amphetamines, Nonspecific Chest Pain, Potassium Content of Foods, Substance Use Disorder, Nonspecific Chest Pain, [id number]-[id number], Stimulant Use Disorder-Methamphetamines, Aspirin and Your Heart, Hypokalemia. - Medication Reconciliation Form, Thank You Letter, Antibiotic Education, Prescription Opioid Use form. - Follow up: Private Physician; When: 2 - 3 days; Reason: Recheck today's complaints, Continuance of care, Re-evaluation by your physician. Follow up: Reggie Laguna MD; When: 2 - 3 days; Reason: Recheck today's complaints, Re-evaluation by your physician. - Problem is new. - Symptoms have improved. Signatures: Dispatcher [employer] Lisa Garcia RN RN Bruno Holland MD MD cha Smirch, Shelby, RN RN ss Corrections: (The following items were deleted from the chart) 18:21 17:42 07/21/2020 17:42 Discharged to Home. Impression: Adverse effect of amphetamines; sv Bipolar disorder; Other chest pain; Hypokalemia. Condition is Stable. Forms are Medication Reconciliation Form, Thank You Letter, Antibiotic Education, Prescription Opioid Use. Follow up: Private Physician; When: 2 - 3 days; Reason: Recheck today's complaints, Continuance of care, Re-evaluation by your physician. Follow up: Reggie Laguna; When: 2 - 3 days; Reason: Recheck today's complaints, Re-evaluation by your physician. Problem is new. Symptoms have improved. johnny
[2020-07-21 18:30] VITALS: TEMP 98.5
[2020-07-21 18:33] VITALS: BP 117/91; O2SAT 100
--- NOTE | 2020-07-22 06:29 | EKG ---
Test Date: 2020-07-21 Test Time: 14:04:27 Recruiting Scheduler: NAYELI MEASUREMENT RESULTS: Intervals: Rate: 135 MN: 94 QRSD: 94 QT: 284 QTc: 426 [place]: P: 78 MN: 94 QRS: 61 T: -22 INTERPRETIVE STATEMENTS: Sinus tachycardia with short MN with frequent premature ventricular complexes ST & T wave abnormality, consider inferior ischemia Abnormal ECG Compared to ECG 07/19/2020 03:50:15 Possible ischemia now present Sinus rhythm no longer present Sinus arrhythmia no longer present Prolonged QT interval no longer present ST (T wave) deviation still present Electronically Signed On 07-22-20 06:27:09 911 OPERATOR by Reggie Laguna
--- NOTE | 2020-07-22 12:41 | EKG ---
Test Date: 2020-07-21 Test Time: 15:14:25 Mental Hygienist: SHERWIN MEASUREMENT RESULTS: Intervals: Rate: 117 DC: 92 QRSD: 96 QT: 334 QTc: 465 [place]: P: 78 DC: 92 QRS: 62 T: 19 INTERPRETIVE STATEMENTS: Sinus tachycardia with short DC with occasional premature ventricular complexes Nonspecific ST abnormality Abnormal ECG Compared to ECG 07/21/2020 14:28:42 Short DC interval now present Supraventricular tachycardia no longer present Myocardial infarct finding no longer present ST (T wave) deviation still present Electronically Signed On 07-22-20 12:39:50 EPIDEMIOLOGIST by Reggie Laguna
--- NOTE | 2020-07-22 12:41 | EKG ---
Test Date: 2020-07-21 Test Time: 14:28:42 Parts Product Analyst: NAYELI MEASUREMENT RESULTS: Intervals: Rate: 132 IA: QRSD: 98 QT: 336 QTc: 497 [place]: P: IA: QRS: 74 T: -71 INTERPRETIVE STATEMENTS: Supraventricular tachycardia with frequent premature ventricular complexes Lateral infarct, age undetermined Marked ST abnormality, possible inferior subendocardial injury Abnormal ECG Compared to ECG 07/21/2020 14:26:31 Ventricular premature complex(es) now present Sinus tachycardia no longer present Possible ischemia no longer present Myocardial infarct finding still present ST (T wave) deviation still present Electronically Signed On 07-22-20 12:39:52 INFORMATION SYSTEMS SPECIALIST by Reggie Laguna
--- NOTE | 2020-07-22 12:41 | EKG ---
Test Date: 2020-07-21 Test Time: 15:45:13 Regulatory Manager: SHERWIN MEASUREMENT RESULTS: Intervals: Rate: 97 MA: 156 QRSD: 82 QT: 396 QTc: 502 [place]: P: 20 MA: 156 QRS: 9 T: 35 INTERPRETIVE STATEMENTS: Normal sinus rhythm Cannot rule out Anterior infarct, age undetermined Abnormal ECG Compared to ECG 07/21/2020 15:14:25 Myocardial infarct finding now present Sinus tachycardia no longer present Ventricular premature complex(es) no longer present Short MA interval no longer present ST (T wave) deviation no longer present Electronically Signed On 07-22-20 12:39:49 COMMUNITY SERVICE AIDE by Reggie Laguna
--- NOTE | 2020-07-22 12:41 | EKG ---
Test Date: 2020-07-21 Test Time: 14:26:31 Model And Mold Maker: NAYELI MEASUREMENT RESULTS: Intervals: Rate: 130 AL: 120 QRSD: 86 QT: 312 QTc: 459 [place]: P: 112 AL: 120 QRS: 69 T: -35 INTERPRETIVE STATEMENTS: Sinus tachycardia Septal infarct, age undetermined ST & T wave abnormality, consider inferior ischemia Abnormal ECG Compared to ECG 07/21/2020 14:04:27 Myocardial infarct finding now present Ventricular premature complex(es) no longer present Short AL interval no longer present ST (T wave) deviation still present Possible ischemia still present Electronically Signed On 07-22-20 12:39:52 FLAKEBOARD LINE TENDER by Reggie Laguna
== END 2020-07-21 18:21 | disposition home or self-care (01) ==
LOC: ER 13:49
DX: E87.6 Hypokalemia (principal); T43.625A Adverse effect of amphetamines, initial encounter; F31.9 Bipolar disorder, unspecified; I10 Essential (primary) hypertension; Z88.5 Allergy status to narcotic agent
CPT/HCPCS: 85025; 80048; 36415; 80320; 83735; 80329 ×2; 81025; 85610; 85379; 80076; 80307 ×8; 85730; 84443; 81003; 84484; 83690; 83880; 71275; 71045; Q9967; J7040; 93005; 96361; 96374; 99285

== ENCOUNTER 2021-01-25 16:18 | Emergency (ER) | payer OTHER ==
--- OUTSIDE RECORDS SUMMARY | 2021-01-25 16:21 | XMS REPORT | Continuity of Care Document ---
:1980 Author Organization [facility] t Address [address] [place] [address] Care Team Providers Name Role Phone Cortes FERMIN Attending Clinician Gaetano FERMIN J Attending Clinician Sergei DAVILA Attending Clinician Idris FERMIN, W Attending Clinician Melissa FERMIN E Attending Clinician Monica FERMIN Attending Clinician Derek VAZQUEZ Attending Clinician Madyson FERMIN, S Attending Clinician Matthieu RETIREMENT CONSULTANT, G Attending Clinician Doctor Unassigned, Name Attending Clinician Unavailable Dee NAQVI, M Attending Clinician FROILAN ZAPATA Attending Clinician Unavailable DRE PARKER Attending Clinician Unavailable Cortes FERMIN Admitting Clinician Monica FERMIN Admitting Clinician FROILAN ZAPATA Admitting Clinician Unavailable DRE PARKER Admitting Clinician Unavailable Problems This patient has no known problems. Allergies, Adverse Reactions, Alerts This patient has no known allergies or adverse reactions. Medications This patient has no known medications. Procedures This patient has no known procedures. Encounters Start End Encounter Admission Attending Care Care Encounter Source Date/Time Date/Time Type Type Clinicians Facility Department ID 2020-12-01 2020-12-01 Letter Melanie Kolb [id number] 00:00:00 00:00:00 (Out) [facility] [id number] [facility] [id number] 2020-11-22 2020-11-23 [facility] Miguelito Salter [id number] 06:16:00 14:46:00 Encounter Rosmery Mai [id number] [place] [id number] 2020-10-22 2020-10-22 Emergency Steinberg, Chaka [place] [id number] 02:04:00 07:32:00 [facility] [id number] [id number] 2020-10-19 2020-10-20 Emergency [place] [id number] 23:59:00 00:57:00 CENTER [id number] [id number] 2020-10-15 2020-10-15 Emergency Sergei, [place] [id number] 07:37:00 15:30:00 [facility] [id number] [id number] 2020-10-13 2020-10-13 Emergency Denis Torres E [place] [id number] 04:42:00 11:13:00 Miguelito Salter [facility] [id number] Moises Anderson [id number] [id number] 2020-09-16 2020-09-17 Emergency Derek, [facility] [id number] 21:39:00 00:11:00 Kasandrasameera Lino [id number] [place] 4.2.7.2.686 [place] [id number] 2020-09-06 2020-09-06 Emergency Yariaz, [facility] [id number] 04:37:00 07:13:00 Amor Huynh [id number] [place] 4.2.7.2.686 [place] [id number] 2020-09-01 2020-09-01 Emergency [facility], [facility] [id number] 17:06:00 21:39:00 Ana Huynh 350.1.13.10 [place] 4.2.7.2.686 [place] [id number] 2020-09-01 2020-09-01 Orders Doctor BUDDY [id number] 00:00:00 00:00:00 Only Unassigned, MAGDY 350.1.13.10 [facility] 4.2.7.2.686 [id number] 2020-04-15 2020-04-15 Transition Francisco Price [id number] 00:00:00 00:00:00 of Care Rafaela Morin 350.1.13.10 [place] 4.2.7.2.686 [id number] Results Test Description Test Time Test Comments Results Result [facility] e Comments CT ABDOMEN/PELVIS 2019-08-22 NPO [...] report was electronically signed by Dr Verónica Gilman MD 08/22/20196:11 PMDictated By: VERÓNICA GILMANDate: 08/22/2019 18:11 STAT LAB , URINE 2019-08-22 17:09:00 Test Item Value Reference Range Interpretation Comme nts (Urine) (test code = PREGU) Negative STAT LAB URINALYSIS WITHOUT [id number] 17:08:00 Test Item Value Reference Range Interpretation Comments Color (test code = UCOLR) Light yellow Lt. Yellow A Clarity (test code = UCLAR) Clear Glucose (test code = UGLUC) Negative Negative N Bilirubin (test code = UBILI) Negative Negative N Ketones (test code = UKET) Negative Negative N Specific [place] (test code = 1.015 1.005-1.030 A USPGR) Blood (test code = UBLD) Negative Negative N PH (test code = UPH) 5.5 4.5-8.0 A Protein (test code = UPROT) Negative Negative N Urobilinogen (test code = U 0.2 >0.2 N UROB) Nitrite (test code = UNITR) Negative Negative N Leukocyte Esterase (test code = Negative Negative N ULEUK) [id number] 16:39:00 Test Item Value Reference Range Interpretation Comments Lipase (test code = LIPA) 178 U/L 73-393 [id number] 16:39:00 Test Item Value Reference Range Interpretation [...] 4 - SerumAlbu min)] EGFR if >60 [place] (test code mL/min/1.73m\ = EGFRAA) S\2 EGFR if Non- >60 Estimate d Glomerular [place] (test code mL/min/1.73m\ Filtrat ion Rate (eGFR) [...] kidney failure. STAT LAB CBC WITH AUTO [id number] 16:16:00 Test Item Value Reference Range Interpretation [...] 0.4 % 0.0-0.4 XR ELBOW MIN 3 [id number] 17:59:10Procedure: XR ELBOW MIN 3 VIEWSOrder Date: 08/19/2019 2:54 PMOrdering Provider: FIONA Vincentinical Indication: [id number]: Pain of left elbow jointComparison: NoneFINDINGS:There is no fracture or dislocation.Osteoarthrosis of the left elbow, particularly at the radial articular surface.No lytic or sclerotic lesions.No joint effusion.No subcutaneous gas.IMPRESSION:1. No fracture or dislocation.2. Osteoarthrosis of the left elbow.3. No other significant findings.This final report was e lectronically signed by Dr Emile Nath MD 08/19/20195:52 PMDictated By: EMILE NATH.Date: 08/19/2019 17:52
[2021-01-25] MEDS ORDERED: ACETAMINOPHEN 325 MG TABLET ONE (17:20)
[2021-01-25] MEDS ORDERED: lisinopriL 20 MG TAB ONE (17:21)
[2021-01-25] MEDS ORDERED: METOPROLOL TARTRATE 5 MG/5 ML INJ IV ONE (17:21)
--- NOTE | 2021-01-25 17:41 | RAD REPORT ---
EXAM DESCRIPTION: RAD - Chest Single View - 01/25/2021 5:30 pm CLINICAL HISTORY: Chest pain;Palpitations Chest pain. COMPARISON: Chest Single View dated 07/21/2020; Chest Single View dated 07/19/2020; Chest Single View dated 07/18/2020; Chest Single View dated 07/12/2020 FINDINGS: Portable technique limits examination quality. The lungs are grossly clear. The heart is normal in size. No displaced fractures. IMPRESSION: No acute intrathoracic process suspected.
[2021-01-25 17:53] LABS: Absolute Lymphocytes (CBC) 1.8 K/uL (0.7-4.9); Basophils % 1.2 % (0-1.3); Hematocrit 42.5 % (36.0-45.0); MPV 8.4 fL (7.6-11.3); RBC Red Blood Cell Count 4.82 M/uL (3.86-4.86)
[2021-01-25 18:07] LABS: Protime INR 0.99
[2021-01-25 18:22] LABS: ALT/SGPT 35 U/L (12-78); AST/SGOT 31 U/L (15-37); Albumin 3.6 g/dL (3.4-5.0); Alkaline Phosphatase 64 U/L (45-117); BUN Blood Urea Nitrogen 11 mg/dL (7-18); Bicarbonate 25 mmol/L (21-32); Bilirubin Direct < 0.1 mg/dL (0-0.2); Bilirubin Total 0.2 mg/dL (0.2-1.0); Glucose Level 94 mg/dL (74-106); NT PRO-BNP 161 pg/mL (<125); Potassium 3.6 mmol/L (3.5-5.1); Protein, Total 7.7 g/dL (6.4-8.2); Sodium Level 139 mmol/L (136-145); Troponin (Emerg Dept Use Only) < 0.02 ng/mL (0.0-0.045)
--- NOTE | 2021-01-25 18:48 | ER ---
Nurse's Notes [facility] Name: Denise Wick Age: 40 yrs Sex: Female : 1980 Arrival Date: 01/25/2021 Time: 16:22 Bed 14 Private MD: Diagnosis: Chest pain, unspecified;Hypertensive heart disease without heart failure-Noncompliant with medication;Headache Presentation: 01/25 16:24 Chief complaint: Patient states: Pt states she has CP for 2 days. Coronavirus screen: da3 Client denies travel out of the [place] in the last 14 days. 16:24 Method Of Arrival: EMS: [facility] da3 16:36 Ebola Screen: No symptoms or risks identified at this time. Risk Assessment: Do you da3 want to hurt yourself or someone else? Patient reports no desire to harm self or others. Note Pt was given 1000cc of NS 325mg ASA by EMS. 16:36 Acuity: CHRISTINA 3 da3 17:46 Initial Sepsis Screen: Does the patient meet any 2 criteria? No. Patient's initial vg1 sepsis screen is negative. Does the patient have a suspected source of infection? No. Patient's initial sepsis screen is negative. Onset of symptoms was January 25, 2021. Triage Assessment: 16:27 General: Appears in no apparent distress. comfortable. Pain: Quality of pain is da3 described as burning, Pain began 2-3 days ago. 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 - Social history:: Smoking status: Patient reports the use of cigarette tobacco products, smokes two packs cigarettes per day. - Coronavirus screen:: The patient has NOT traveled to [place] in the past 14 days. The patient HAS HAD contact with known and/or suspected case of coronavirus. Screenin:45 Abuse screen: Denies threats or abuse. Nutritional screening: No deficits noted. vg1 Tuberculosis screening: No symptoms or risk factors identified. Fall Risk No fall in past 12 months (0 pts). No secondary diagnosis (0 pts). IV access (20 points). Ambulatory Aid- None/Bed Rest/Nurse Assist (0 pts). Gait- Normal/Bed Rest/Wheelchair (0 pts) Mental Status- Oriented to own ability (0 pts). Total Francois Fall Scale indicates No Risk (0-24 pts). Assessment: 17:00 General: Appears in no apparent distress. comfortable, Behavior is calm, cooperative. vg1 Pain: Complains of pain in anterior aspect of right upper chest and right side of jaw Pain radiates to left arm States Left arm feels 'tingly' Pain currently is 7 out of 10 on a pain scale. Pain began 2 hours ago. Also complains of nausea. Neuro: Level of Consciousness is awake, alert, obeys commands, Oriented to person, place, time, situation. Cardiovascular: Patient's skin is warm and dry. Respiratory: Airway is patent Respiratory effort is even, unlabored. GI: Reports nausea. : No signs and/or symptoms were reported regarding the genitourinary system. EENT: No signs and/or symptoms were reported regarding the EENT system. Derm: Skin is intact, is healthy with good turgor. Musculoskeletal: Circulation, motion, and sensation intact. 17:44 Reassessment: Received VO from Dr Kay to hold Lopressor due to pt current BP and HR.vg1 19:19 Reassessment: Patient appears in no apparent distress at this time. No changes from vg1 previously documented assessment. Patient and/or family updated on plan of care and expected duration. Pain level reassessed. Patient is alert, oriented x 3, equal unlabored respirations, skin warm/dry/pink. Vital Signs: 16:35 BP 180 / 134; Pulse 126; Resp 20; Pulse Ox 97% on R/A; da3 17:03 BP 157 / 103; Pulse 84; Resp 18; Pulse Ox 100% ; vg1 17:30 BP 145 / 94; Pulse 73; Resp 18; Pulse Ox 100% ; vg1 17:51 Weight 68.04 kg; Height 5 ft. 6 in. (167.64 cm); vg1 19:15 BP 133 / 74; Pulse 78; Resp 16; Pulse Ox 99% ; vg1 19:20 BP 133 / 74; Pulse 78; Resp 16; Pulse Ox 98% ; vg1 17:51 Body Mass Index 24.21 (68.04 kg, 167.64 cm) vg1 ED Course: 16:22 Patient arrived in ED. am2 16:25 Lowell Kay MD is Attending Physician. kdr 16:38 Triage completed. da3 16:54 Veronica Vasquez, DRISS is Primary Nurse. vg1 17:15 Maintain EMS IV. Dressing intact. Site clean \T\ dry. Gauge \T\ site: 20 g Left Hand. Site vg 1 flushes well but unable to withdraw blood. 17:30 XRAY Chest (1 view) In Process Unspecified. EDMS 17:41 Initial lab(s) drawn, by me, sent to lab. Missed attempt(s): 24 gauge in right vg1 antecubital area. 17:45 Patient maintains SpO2 saturation greater than 95% on room air. vg1 17:45 Patient has correct armband on for positive identification. Placed in gown. Bed in low vg1 position. Call light in reach. Side rails up X 1. Adult w/ patient. bus monitor on. Pulse ox on. NIBP on. 17:46 Arm band placed on. vg1 19:19 No provider procedures requiring assistance completed. IV discontinued, intact, vg1 bleeding controlled, No redness/swelling at site. Pressure dressing applied. Administered Medications: 17:03 Drug: Tylenol 650 mg Route: PO; vg1 19:15 Follow up: Response: No adverse reaction; Marked relief of symptoms vg1 17:03 Drug: Lisinopril 20 mg Route: PO; vg1 19:15 Follow up: BP 133 / 74; Pulse 78 bpm; Resp 16 bpm; Pulse Ox 99% ; Response: No adverse vg1 reaction; Marked relief of symptoms 19:15 Not Given (Physician Discretion): Lopressor (metoprolol) 5 mg IVP every 5 minutes; Hold vg1 for SBP < 100 or HR < 60. x3 Outcome: 18:47 Discharge ordered by . kdr 19:19 Discharged to home ambulatory. vg1 19:19 Condition: stable 19:19 Discharge instructions given to patient, Instructed on discharge instructions, follow up and referral plans. medication usage, Demonstrated understanding of instructions, follow-up care, medications, Prescriptions given X 2. 19:20 Patient left the ED. vg1 Signatures: Dispatcher [employer] EDMS Lowell Kay MD MD kdr Moreno, Amanda am2 Garcia, Victoria, RN RN vg1 Jaylon Pompa RN RN da3
--- NOTE | 2021-01-25 18:48 | EDPHYS ---
Physician Documentation [facility] Name: Denise Wick Age: 40 yrs Sex: Female : 1980 Arrival Date: 01/25/2021 Time: 16:22 Bed 14 Private MD: ED Physician Lowell Kay HPI: 01/25 18:00 This 40 yrs old Female presents to ER via EMS with complaints of Chest kdr Pressure. 18:00 The patient or guardian reports chest pain that is located primarily in the anterior kdr chest wall, bilaterally. Onset: gradually, 2 day(s) ago. The pain does not radiate. Associated signs and symptoms: Pertinent positives: diaphoresis, dizziness, lightheadedness, nausea, shortness of breath, Weakness. The chest pain is described as aching, dull, a heaviness, a pressure. Duration: The patient or guardian reports multiple episodes, that are intermittent, that wax and wane, with no pattern. Severity of pain: At its worst the pain was mild in the emergency department the pain has improved During the course of the initial interview, the patient had intermittent chest discomfort. The patient has not experienced similar symptoms in the past. The patient has not recently seen a physician. Patient states that she generally has not been feeling well for the last 2 days. She specifically complained of chest pain that was vague in nature and intermittent. She indicated that she had been up this morning had drank several Cokes. Then went back to bed. She got up later drank some water had a cigarette and then proceeded to get out on the town with her boyfriend to take care of some errands. She was out in the heat for period of time maybe 30 minutes or more. After that, she began to feel worse. Her chest pain got progressively worse. She was in a store at the time. 911 was called at that time. And she was brought to the ED in stable condition. At the time of my initial interview, she did not appear to be in any acute distress. She did complain of intermittent mild chest discomfort during the interview. She also complained of mild bitemporal lower headache. She was noted to be hypertensive with a blood pressure of 184/139. Her pulse was normal as well as her oxygen saturation. 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 - Social history:: Smoking status: Patient reports the use of cigarette tobacco products, smokes two packs cigarettes per day. - Coronavirus screen:: The patient has NOT traveled to [place] in the past 14 days. The patient HAS HAD contact with known and/or suspected case of coronavirus. ROS: 18:00 Constitutional: Negative for fever, chills, and weight loss, Eyes: Negative for injury, kdr pain, redness, and discharge, ENT: Negative for injury, pain, and discharge, Neck: Negative for injury, pain, and swelling, Respiratory: Negative for shortness of breath, cough, wheezing, and pleuritic chest pain, Abdomen/GI: Negative for abdominal pain, nausea, vomiting, diarrhea, and constipation, Back: Negative for injury and pain, : Negative for injury, bleeding, discharge, and swelling, MS/Extremity: Negative for injury and deformity, Skin: Negative for injury, rash, and discoloration, Psych: Negative for depression, anxiety, suicide ideation, homicidal ideation, and hallucinations, Allergy/Immunology: Negative for hives, rash, and allergies, Endocrine: Negative for neck swelling, polydipsia, polyuria, polyphagia, and marked weight changes, Hematologic/Lymphatic: Negative for swollen nodes, abnormal bleeding, and unusual bruising. 18:00 Cardiovascular: Positive for chest pain. 18:00 Neuro: Positive for headache, weakness. Exam: 18:00 Constitutional: This is a well developed, well nourished patient who is awake, alert, kdr and in no acute distress. Head/Face: Normocephalic, atraumatic. Eyes: Pupils equal round and reactive to light, extra-ocular motions intact. Lids and lashes normal. Conjunctiva and sclera are non-icteric and not injected. Cornea within normal limits. Periorbital areas with no swelling, redness, or edema. Neck: Trachea midline, no thyromegaly or masses palpated, and no cervical lymphadenopathy. Supple, full range of motion without nuchal rigidity, or vertebral point tenderness. No Meningismus. Chest/axilla: Normal chest wall appearance and motion. Nontender with no deformity. No lesions are appreciated. Cardiovascular: Regular rate and rhythm with a normal S1 and S2. No gallops, murmurs, or rubs. Normal PMI, no JVD. No pulse deficits. Respiratory: Lungs have equal breath sounds bilaterally, clear to auscultation and percussion. No rales, rhonchi or wheezes noted. No increased work of breathing, no retractions or nasal flaring. Abdomen/GI: Soft, non-tender, with normal bowel sounds. No distension or tympany. No guarding or rebound. No evidence of tenderness throughout. Back: No spinal tenderness. No costovertebral tenderness. Full range of motion. Skin: Warm, dry with normal turgor. Normal color with no rashes, no lesions, and no evidence of cellulitis. MS/ Extremity: Pulses equal, no cyanosis. Neurovascular intact. Full, normal range of motion. Neuro: Awake and alert, GCS 15, oriented to person, place, time, and situation. Cranial nerves II-XII grossly intact. Motor strength 5/5 in all extremities. Sensory grossly intact. Cerebellar exam normal. Normal gait. Psych: Awake, alert, with orientation to person, place and time. Behavior, mood, and affect are within normal limits. Vital Signs: 16:35 BP 180 / 134; Pulse 126; Resp 20; Pulse Ox 97% on R/A; da3 17:03 BP 157 / 103; Pulse 84; Resp 18; Pulse Ox 100% ; vg1 17:30 BP 145 / 94; Pulse 73; Resp 18; Pulse Ox 100% ; vg1 17:51 Weight 68.04 kg; Height 5 ft. 6 in. (167.64 cm); vg1 19:15 BP 133 / 74; Pulse 78; Resp 16; Pulse Ox 99% ; vg1 19:20 BP 133 / 74; Pulse 78; Resp 16; Pulse Ox 98% ; vg1 17:51 Body Mass Index 24.21 (68.04 kg, 167.64 cm) vg1 MDM: 18:00 Data reviewed: vital signs, nurses notes, lab test result(s), radiologic studies. kdr Counseling: I had a detailed discussion with the patient and/or guardian regarding: the historical points, exam findings, and any diagnostic results supporting the discharge/admit diagnosis, lab results, radiology results. 18:47 Patient medically screened. kdr 08 16:47 Order name: Basic Metabolic Panel; Complete Time: 18:34 kdr 08 16:47 Order name: CBC with Diff; Complete Time: 18:34 kdr 01/25 16:47 Order name: LFT's; Complete Time: 18:34 kdr 01/25 16:47 Order name: Magnesium; Complete Time: 18:34 kdr 01/25 16:47 Order name: NT PRO-BNP; Complete Time: 18:34 kdr 01/25 16:47 Order name: PT-INR; Complete Time: 18:34 kdr 01/25 16:47 Order name: Troponin (emerg Dept Use Only); Complete Time: 18:34 kdr 01/25 16:47 Order name: XRAY Chest (1 view); Complete Time: 18:34 kdr 08 16:47 Order name: EKG; Complete Time: 16:48 kdr 01/25 16:47 Order name: Cardiac monitoring; Complete Time: 17:25 kdr 01/25 16:47 Order name: EKG - Nurse/Tech; Complete Time: 17:25 kdr 01/25 16:47 Order name: IV Saline Lock; Complete Time: 17:38 kdr 01/25 16:47 Order name: Labs collected and sent; Complete Time: 17:38 kdr 01/25 16:47 Order name: O2 Per Protocol; Complete Time: 16:54 kdr 01/25 16:47 Order name: O2 Sat Monitoring; Complete Time: 16:54 kdr Administered Medications: 17:03 Drug: Tylenol 650 mg Route: PO; vg1 19:15 Follow up: Response: No adverse reaction; Marked relief of symptoms vg1 17:03 Drug: Lisinopril 20 mg Route: PO; vg1 19:15 Follow up: BP 133 / 74; Pulse 78 bpm; Resp 16 bpm; Pulse Ox 99% ; Response: No adverse vg1 reaction; Marked relief of symptoms 19:15 Not Given (Physician Discretion): Lopressor (metoprolol) 5 mg IVP every 5 minutes; Hold vg1 for SBP < 100 or HR < 60. x3 Disposition Summary: 01/25/21 18:47 Discharge Ordered Location: Home kdr Problem: new kdr Symptoms: have improved kdr Condition: Stable kdr Diagnosis - Chest pain, unspecified kdr - Hypertensive heart disease without heart failure - Noncompliant with medication kdr - Headache kdr Followup: kdr - With: Private Physician - When: 2 - 3 days - Reason: If symptoms return, Further diagnostic work-up, Recheck today's complaints, Continuance of care, Re-evaluation by your physician Discharge Instructions: - Discharge Summary Sheet kdr - Nonspecific Chest Pain, Adult, [id number] kdr - Hypertension, Adult, [id number]-xz-[id number] kdr - General Headache Without Cause, [id number]-Ifzt kdr - Seizure, Adult, Uggq-ik-Vily kdr Forms: - Medication Reconciliation Form kdr - Thank You Letter kdr Prescriptions: - Tegretol 200 mg Oral Tablet - take 1 tablet by ORAL route every 12 hours; 30 tablet; Refills: 0, Product kdr Selection Permitted - Lisinopril 20 mg Oral Tablet - take 1 tablet by ORAL route once daily; 20 tablet; Refills: 0, Product kdr Selection Permitted Signatures: Dispatcher [employer] Lowell Acosta MD MD kdr Garcia, Victoria RN RN vg1 Jaylon Pompa RN RN da3
[2021-01-25 19:40] VITALS: BP 133/74
[2021-01-25 19:42] VITALS: O2SAT 98
--- NOTE | 2021-01-26 11:19 | EKG ---
Test Date: 2021-01-25 Test Time: 17:20:41 Licensed Dispensing Optician: CIPRIANO MEASUREMENT RESULTS: Intervals: Rate: 71 OH: 102 QRSD: 100 QT: 410 QTc: 445 Hanna: P: 38 OH: 102 QRS: 77 T: 12 INTERPRETIVE STATEMENTS: Sinus rhythm with marked sinus arrhythmia with short OH with occasional premature ventricular complexes Nonspecific T wave abnormality Abnormal ECG Compared to ECG 07/21/2020 15:45:13 Ventricular premature complex(es) now present Short OH interval now present T-wave abnormality now present Myocardial infarct finding no longer present Electronically Signed On 01-26-21 11:16:31 CDT by Reggie Laguna
== END 2021-01-25 19:20 | disposition home or self-care (01) ==
LOC: ER 16:18
DX: I11.9 Hypertensive heart disease without heart failure (principal); R51.9 Headache, unspecified; Z91.14 Patient's other noncompliance with medication regimen; I10 Essential (primary) hypertension; F31.9 Bipolar disorder, unspecified; F17.210 Nicotine dependence, cigarettes, uncomplicated; Z88.0 Allergy status to penicillin; Z88.5 Allergy status to narcotic agent
CPT/HCPCS: 36415; 71045; 80048; 80076; 83735; 83880; 84484; 85025; 85610; 93005

== ENCOUNTER 2021-02-06 06:23 | Emergency (ER) | payer OTHER ==
--- OUTSIDE RECORDS SUMMARY | 2021-02-06 06:26 | XMS REPORT | Continuity of Care Document ---
:1980 Author Organization [facility] t Address [address] [place] [address] Care Team Providers Name Role Phone Cortes FERMIN Attending Clinician Gaetano FERMIN J Attending Clinician Sergei DAVILA Attending Clinician Idris FERMIN, W Attending Clinician Melissa FERMIN E Attending Clinician Monica FERMIN Attending Clinician Derek HENDRIXP Attending Clinician Yarima MD, S Attending Clinician Matthieu LABORER/KEY MAN, G Attending Clinician Doctor Unassigned, Name Attending [...] ID 2020-12-01 2020-12-01 Letter Melanie Kolb [id number] 00:00:00 00:00:00 (Out) [facility] [id number] [facility] [id number] 2020-11-22 2020-11-23 [facility] Miguelito Salter [id number] 06:16:00 14:46:00 Encounter Rosmery Mai [id number] [facility] [id number] 2020-10-22 2020-10-22 Emergency Steinberg, Chaka TRAUMA [id number] 02:04:00 07:32:00 W CENTER [id number] 2020-10-19 2020-10-20 Emergency TRAUMA [id number] 23:59:00 00:57:00 CENTER [id number] 2020-10-15 2020-10-15 Emergency Sergei, TRAUMA [id number] 07:37:00 15:30:00 [facility] [id number] 2020-10-13 2020-10-13 Emergency Denis Torres E TRAUMA [id number] 04:42:00 11:13:00 Miguelito Salter [facility] [id number] Moises Anderson [id number] 2020-09-16 2020-09-17 Emergency [facility], [facility] [id number] 21:39:00 00:11:00 Kasandrasameera Lino [id number] [place] [id number] [place] [id number] 2020-09-06 2020-09-06 [facility], [facility] [id number] 04:37:00 07:13:00 Amor Huynh [id number] [place] 4.2.7.2.686 [place] [id number] 2020-09-01 2020-09-01 Emergency [facility], [facility] [id number] 17:06:00 21:39:00 Ana Huynh [id number] [place] [id number] [place] [id number] 2020-09-01 2020-09-01 Orders Doctor BUDDY [id number] 00:00:00 00:00:00 Only Unassigned, MAGDY [id number] [facility] [id number] 2020-04-15 2020-04-15 Transition Francisco Price [id number] 00:00:00 00:00:00 of Care Rafaela Morin [id number] [place] [id number] Results Test Description Test Time Test Comments Results Result [facility] e Comments CT ABDOMEN/PELVIS 2019-08-22 NPO [...] = PREGU) Negative STAT LAB URINALYSIS WITHOUT [id number] 17:08:00 Test Item Value Reference Range Interpretation Comments Color (test code = UCOLR) Light yellow Lt. Yellow A Clarity (test code = UCLAR) Clear Glucose (test code = UGLUC) Negative Negative N Bilirubin (test code = UBILI) Negative Negative N Ketones (test code = UKET) Negative Negative N Specific [place] (test code = 1.015 1.005-1.030 A USPGR) Blood (test code = UBLD) Negative Negative N PH (test code = UPH) 5.5 4.5-8.0 A Protein (test code = UPROT) Negative Negative N Urobilinogen (test code = U 0.2 >0.2 N UROB) Nitrite (test code = UNITR) Negative Negative N Leukocyte Esterase (test code = Negative Negative N ULEUK) [id number] 16:39:00 Test Item Value Reference Range Interpretation Comments Lipase (test code = LIPA) 178 U/L 73-393 [id number] 16:39:00 Test Item Value Reference Range Interpretation [...] 4 - SerumAlbu min)] EGFR if >60 Cam[place]onian (test code mL/min/1.73m\ = EGFRAA) S\2 EGFR if Non- >60 Estimate d Glomerular Cam[place]onian (test code mL/min/1.73m\ Filtrat ion Rate (eGFR) [...] kidney failure. STAT LAB CBC WITH AUTO [id number] 16:16:00 Test Item Value Reference Range Interpretation [...] 0.4 % 0.0-0.4 XR ELBOW MIN 3 [id number] 17:59:10Procedure: XR ELBOW MIN 3 VIEWSOrder Date: 08/19/2019 2:54 PMOrdering Provider: FIONA Vincentinical Indication: [id number]: Pain of left elbow jointComparison: NoneFINDINGS:There is [...]
[2021-02-06 07:20] LABS: Absolute Lymphocytes (CBC) 2.3 K/uL (0.7-4.9); Hematocrit 39.7 % (36.0-45.0); MPV 7.8 fL (7.6-11.3); RBC Red Blood Cell Count 4.52 M/uL (3.86-4.86)
[2021-02-06 07:33] LABS: Protime INR 0.91
[2021-02-06 07:51] LABS: ALT/SGPT 52 U/L (12-78); AST/SGOT 78 U/L (15-37); Albumin 3.6 g/dL (3.4-5.0); Alkaline Phosphatase 77 U/L (45-117); BUN Blood Urea Nitrogen 17 mg/dL (7-18); Bicarbonate 28 mmol/L (21-32); Bilirubin Direct < 0.1 mg/dL (0-0.2); Bilirubin Total 0.2 mg/dL (0.2-1.0); Glucose Level 93 mg/dL (74-106); Magnesium 1.9 mg/dL (1.8-2.4); NT PRO-BNP 225 pg/mL (<125); Protein, Total 7.5 g/dL (6.4-8.2); Sodium Level 137 mmol/L (136-145); Troponin (Emerg Dept Use Only) < 0.02 ng/mL (0.0-0.045)
--- NOTE | 2021-02-06 09:59 | RAD REPORT ---
EXAM DESCRIPTION: RAD - Chest Single View - 02/06/2021 7:52 am CLINICAL HISTORY: CHEST PAIN COMPARISON: Portable January 25 TECHNIQUE: AP portable chest image was obtained 02/06/2021 7:52 am . FINDINGS: No new mass or consolidations seen. Lung parenchymal pattern matches the comparison. Heart and vasculature are normal. No measurable pleural effusion and no pneumothorax. No acute bony abnorm ality seen. No acute aortic findings suspected. IMPRESSION: No acute cardiopulmonary process. No significant change from comparison study.
[2021-02-06] MEDS ORDERED: POTASSIUM 25 MEQ EFFERV TAB ONE (10:27)
[2021-02-06] MEDS ORDERED: NA CHLORIDE 0.9% 1,000 ML ONE (10:27)
--- NOTE | 2021-02-06 11:03 | ER ---
Nurse's Notes [facility] Name: Denise Wick Age: 40 yrs Sex: Female : 1980 Arrival Date: 02/06/2021 Time: 06:26 Bed Waiting Private MD: Diagnosis: Chest pain, unspecified Presentation: 02/06 06:49 Chief complaint: Patient states: shortness of breath and anxiety, denies fever. em Coronavirus screen: shortness of breath, loss of taste or smell. Ebola Screen: Patient negative for fever greater than or equal to 101.5 degrees Fahrenheit, and additional compatible Ebola Virus Disease symptoms Patient denies exposure to infectious person. Patient denies travel to an Ebola-affected area in the 21 days before illness onset. No symptoms or risks identified at this time. Initial Sepsis Screen: Does the patient meet any 2 criteria? HR > 90 bpm. No. Patient's initial sepsis screen is negative. Does the patient have a suspected source of infection? No. Patient's initial sepsis screen is negative. Risk Assessment: Do you want to hurt yourself or someone else? Patient reports no desire to harm self or others. Onset of symptoms was February 06, 2021. 06:49 Method Of Arrival: Ambulatory em 06:49 Acuity: CHRISTINA 2 em Historical: - Allergies: 06:51 Codeine; em 06:51 PENICILLINS; em 06:51 tramadol (rash); em - PMHx: 06:51 Angina; cardiomyopathy; Bipolar disorder; Anxiety; Hypertension; Hypothyroidism; em - Immunization history:: Adult Immunizations up to date. - Social history:: Smoking status: Patient denies any tobacco usage or history of. Vital Signs: 06:49 BP 153 / 110; Pulse 129; Resp 22; Temp 97.8; Pulse Ox 99% on R/A; Weight 68.04 kg; em Height 5 ft. 6 in. (167.64 cm); 06:49 Body Mass Index 24.21 (68.04 kg, 167.64 cm) em ED Course: :26 Patient arrived in ED. bp1 06:51 Triage completed. em 06:51 Arm band placed on. em 07:52 XRAY Chest (1 view) In Process Unspecified. EDMS 08:08 William Flores MD is Attending Physician. tw4 10:18 Troponin (emerg Dept Use Only) Sent. ld1 11:03 Reggie Laguna MD is Referral Physician. tw4 11:03 Jostin France MD is Referral Physician. tw4 11:20 No provider procedures requiring assistance completed. IV discontinued, intact, ld1 bleeding controlled, No redness/swelling at site. Administered Medications: 10:17 Drug: Potassium Effervescent Tablet 50 mEq Route: PO; ld1 10:18 Drug: NS 0.9% 1000 ml Route: IV; Rate: 1 bolus; Site: right antecubital; ld1 Outcome: 11:02 Discharge ordered by . tw4 11:20 Discharged to home ambulatory. ld1 11:20 Condition: stable 11:20 Discharge instructions given to patient, Instructed on discharge instructions, follow up and referral plans. Demonstrated understanding of instructions, follow-up care. 11:22 Patient left the ED. Signatures: Dispatcher [employer] Tez Hernandez RN RN Angela Estrada RN RN William Flores MD MD tw4 Cassia Dhaliwal Lauren, RN RN ld1
--- NOTE | 2021-02-06 11:03 | EDPHYS ---
Physician Documentation [facility] Name: Denise Wick Age: 40 yrs Sex: Female : 1980 Arrival Date: 02/06/2021 Time: 06:26 Bed Waiting Private MD: ED Physician William Flores HPI: 02/06 09:49 This 40 yrs old Female presents to ER via Ambulatory with complaints of tw4 Shortness Of Breath, Dizziness. 09:49 The patient has shortness of breath at rest. Onset: The symptoms/episode began/occurred tw4 yesterday. Duration: The symptoms are intermittent, with no pattern. The patient's shortness of breath has no apparent modifying factors. Associated signs and symptoms: Pertinent positives: chest pain. Severity of symptoms: At their worst the symptoms were moderate in the emergency department the symptoms are unchanged. 09:49 The patient has experienced similar episodes in the past, a few times. tw4 Historical: - Allergies: 06:51 Codeine; em 06:51 PENICILLINS; em 06:51 tramadol (rash); em - PMHx: 06:51 Angina; cardiomyopathy; Bipolar disorder; Anxiety; Hypertension; Hypothyroidism; em - Immunization history:: Adult Immunizations up to date. - Social history:: Smoking status: Patient denies any tobacco usage or history of. ROS: 09:49 Constitutional: Negative for fever, chills, and weight loss, Eyes: Negative for injury, tw4 pain, redness, and discharge, ENT: Negative for injury, pain, and discharge, Neck: Negative for injury, pain, and swelling, Abdomen/GI: Negative for abdominal pain, nausea, vomiting, diarrhea, and constipation, Back: Negative for injury and pain, MS/Extremity: Negative for injury and deformity, Skin: Negative for injury, rash, and discoloration, Neuro: Negative for headache, weakness, numbness, tingling, and seizure. 09:49 Cardiovascular: Positive for chest pain, Negative for edema, orthopnea, palpitations, paroxysmal nocturnal dyspnea. 09:49 Respiratory: Positive for cough, shortness of breath, Negative for dyspnea on exertion, hemoptysis, orthopnea, pleurisy. Exam: 09:49 Constitutional: This is a well developed, well nourished patient who is awake, alert, tw4 and in no acute distress. Head/Face: Normocephalic, atraumatic. Chest/axilla: Normal chest wall appearance and motion. Nontender with no deformity. No lesions are appreciated. Cardiovascular: Regular rate and rhythm with a normal S1 and S2. No gallops, murmurs, or rubs. Normal PMI, no JVD. No pulse deficits. Respiratory: Lungs have equal breath sounds bilaterally, clear to auscultation and percussion. No rales, rhonchi or wheezes noted. No increased work of breathing, no retractions or nasal flaring. Abdomen/GI: Soft, non-tender, with normal bowel sounds. No distension or tympany. No guarding or rebound. No evidence of tenderness throughout. Back: No spinal tenderness. No costovertebral tenderness. Full range of motion. MS/ Extremity: Pulses equal, no cyanosis. Neurovascular intact. Full, normal range of motion. Neuro: Awake and alert, GCS 15, oriented to person, place, time, and situation. Cranial nerves II-XII grossly intact. Motor strength 5/5 in all extremities. Sensory grossly intact. Cerebellar exam normal. Normal gait. Vital Signs: 06:49 BP 153 / 110; Pulse 129; Resp 22; Temp 97.8; Pulse Ox 99% on R/A; Weight 68.04 kg; em Height 5 ft. 6 in. (167.64 cm); 06:49 Body Mass Index 24.21 (68.04 kg, 167.64 cm) em MDM: 10:59 Differential diagnosis: Myocardial Infarction pneumonia, pulmonary edema, reactive tw4 airway disease, covid. Data reviewed: vital signs, nurses notes, lab test result(s), cardiac enzymes, CBC, hepatic panel, EKG, radiologic studies, plain films. Data interpreted: Pulse oximetry: Interpretation: normal. Counseling: I had a detailed discussion with the patient and/or guardian regarding: the historical points, exam findings, and any diagnostic results supporting the discharge/admit diagnosis, lab results, radiology results. Special discussion: Based on the patient's history, exam, and Dx evaluation, there is no indication for emergent intervention or inpatient Tx. It is understood by the patient/guardian that if the Sx's persist or worsen they need to return immediately for re-evaluation. ED course: Rested comfortably in the waiting area in the lobby. Patient states the chest pain resolved. EKG done at 6:57 AM revealed sinus tachycardia with occasional PVCs previous EKG revealed occasional PVCs with ST segment changes seen similarly. There are no acute changes to suggest cardiac ischemia. Patient had troponin that was initially drawn at 7 AM. A serial 4-hour post troponin was also drawn and was negative. Patient instructed to follow-up with a industrial controller to have a stress test. She states that that she has a industrial controller to follow-up with for her stress test.. 11:02 Patient medically screened. 02/06 06:52 Order name: Basic Metabolic Panel; Complete Time: 08:08 02/06 09:42 Interpretation: Normal except: K 3.0. 02/06 06:52 Order name: CBC with Diff; Complete Time: 08:08 02/06 09:42 Interpretation: Normal except: WBC 8.90. 02/06 06:52 Order name: LFT's; Complete Time: 08:08 02/06 09:42 Interpretation: Normal except: AST 78; A/G 0.9; GLOB 3.9. 02/06 06:52 Order name: Magnesium; Complete Time: 08:08 02/06 06:52 Order name: NT PRO-BNP; Complete Time: 08:08 02/06 09:42 Interpretation: Abnormal: NT PRO-BNP 225. [facility] 02/06 06:52 Order name: PT-INR; Complete Time: 08:08 02/06 06:52 Order name: Troponin (emerg Dept Use Only); Complete Time: 08:08 02/06 06:52 Order name: XRAY Chest (1 view); Complete Time: 10:59 02/06 06:52 Order name: EKG; Complete Time: 06:53 02/06 08:22 Order name: SARS-COV-2 RT PCR; Complete Time: 09:08 EDMS 02/06 09:41 Order name: Troponin (emerg Dept Use Only); Complete Time: 10:59 [facility] 02/06 06:52 Order name: Cardiac monitoring em 02/06 06:52 Order name: EKG - Nurse/Tech em 02/06 06:52 Order name: IV Saline Lock 02/06 06:52 Order name: Labs collected and sent 02/06 06:52 Order name: O2 Per Protocol em 02/06 06:52 Order name: O2 Sat Monitoring em EC:59 Rate is 121 beats/min. Rhythm is regular, Sinus tachycardia. QRS [place] is Normal. [place] tw4 interval is normal. QRS interval is normal. QT interval is normal. No Q waves. T waves are Normal. ST Segment is depressed in leads II, III, aVF, <1mm. Clinical impression: Abnormal EKG without significant change. Administered Medications: 10:17 Drug: Potassium Effervescent Tablet 50 mEq Route: PO; ld1 10:18 Drug: NS 0.9% 1000 ml Route: IV; Rate: 1 bolus; Site: right antecubital; ld1 Disposition Summary: 02/06/21 11:02 Discharge Ordered Location: Home tw4 Problem: new tw4 Symptoms: have improved tw4 Condition: Stable tw4 Diagnosis - Chest pain, unspecified tw4 Followup: tw4 - With: Private Physician - When: Upon discharge from the Emergency Department - Reason: Recheck today's complaints, Continuance of care, Re-evaluation by your physician Followup: tw4 - With: Reggie Laguna MD - When: Upon discharge from the Emergency Department - Reason: Recheck today's complaints, Continuance of care, Re-evaluation by your physician Followup: tw4 - With: Jostin France MD - When: Upon discharge from the Emergency Department - Reason: Recheck today's complaints, Continuance of care, Re-evaluation by your physician Discharge Instructions: - Discharge Summary Sheet tw4 - Nonspecific Chest Pain, Adult tw4 - Electrocardiogram tw4 - Pain Without a Known Cause tw4 - Exercise Stress Test tw4 - Aspirin and Your Heart tw4 Forms: - Medication Reconciliation Form tw4 - Thank You Letter tw4 - Antibiotic Education tw4 - Prescription Opioid Use tw4 Signatures: Dispatcher [employer] Tez Albright RN RN em William Flores MD MD tw4 Tanisha Hilario RN RN ld1 Corrections: (The following items were deleted from the chart) 07:06 06:53 CORONAVIRUS+ ordered. [facility] 09:49 09:49 The patient has not experienced similar symptoms in the past, tw4 tw4
[2021-02-06 11:27] VITALS: BP 153/110; TEMP 97.8; O2SAT 99
[2021-02-06] MEDS ORDERED: ONDANSETRON 4 MG (ODT) TAB ONE (11:38)
== END 2021-02-06 11:22 | disposition home or self-care (01) ==
LOC: ER 06:23
DX: R07.9 Chest pain, unspecified (principal); I10 Essential (primary) hypertension; Z20.822 Contact with and (suspected) exposure to COVID-19; Z88.0 Allergy status to penicillin; Z88.5 Allergy status to narcotic agent
CPT/HCPCS: 93005; 85025; 80048; 36415; 83735; 85610; 80076; 84484 ×2; 83880; 71045; 99283; U0003; J7030

== ENCOUNTER 2021-03-16 21:53 | Observation (INO) | payer OTHER ==
[2021-03-16 22:43] LABS: Urine Blood Negative (Negative); Urine Glucose Negative (Negative); Urine Protein Negative (Negative); Urine Specific Gravity 1.015 (1.005-1.030)
[2021-03-16 22:55] LABS: Absolute Lymphocytes (CBC) 2.2 K/uL (0.7-4.9); Basophils % 1.2 % (0-1.3); Hematocrit 39.9 % (36.0-45.0); Lymphocytes % 39.4 % (15.3-44.8); MPV 7.4 fL (7.6-11.3); RBC Red Blood Cell Count 4.49 M/uL (3.86-4.86)
[2021-03-16 22:56] LABS: Protime INR 1.04
[2021-03-16 23:13] LABS: ALT/SGPT 23 U/L (12-78); AST/SGOT 21 U/L (15-37); Albumin 3.6 g/dL (3.4-5.0); Alkaline Phosphatase 67 U/L (45-117); BUN Blood Urea Nitrogen 11 mg/dL (7-18); Bicarbonate 24 mmol/L (21-32); Bilirubin Direct < 0.1 mg/dL (0-0.2); Bilirubin Total 0.2 mg/dL (0.2-1.0); Glucose Level 106 mg/dL (74-106); Lipase 211 U/L (73-393); Magnesium 2.1 mg/dL (1.8-2.4); NT PRO-BNP 128 pg/mL (<125); Potassium 3.4 mmol/L (3.5-5.1); Protein, Total 7.6 g/dL (6.4-8.2); Sodium Level 138 mmol/L (136-145); Troponin (Emerg Dept Use Only) < 0.02 ng/mL (0.0-0.045)
[2021-03-16] MEDS ORDERED: METOCLOPRAMIDE 10 MG/2mL INJ ONE (23:38)
[2021-03-16] MEDS ORDERED: DIPHENHYDRAMINE 50 MG/ML VIAL ONE (23:38)
[2021-03-16] MEDS ORDERED: FAMOTIDINE 20 MG/2 ML VIAL IV ONE (23:39)
[2021-03-16] MEDS ORDERED: NA CHLORIDE 0.9% 1,000 ML ONE (23:39)
[2021-03-17] MEDS ORDERED: FENTANYL CITR 100 MCG/2 ML ONE ×2 (01:07→06:04)
[2021-03-17] MEDS ORDERED: KETOROLAC 30 MG/ML INJ ONE ×2 (01:07→03:23)
--- NOTE | 2021-03-17 01:54 | EDPHYS ---
Physician Documentation [facility] Name: Denise Wick Age: 40 yrs Sex: Female : 1980 Arrival Date: 03/16/2021 Time: 21:56 Bed 15 Private MD: LUCIO Physician Bruno Ferrell HPI: 03/17 01:17 This 40 yrs old Female presents to ER via Ambulatory with complaints of jmm Vomiting, Cough, Shortness Of Breath. 01:17 The patient presents to the emergency department with vomiting. Onset: The jmm symptoms/episode began/occurred gradually. Possible causes: unknown. The symptoms are aggravated by nothing. The symptoms are alleviated by nothing. This is a 40-year-old female with a history of angina, anxiety, bipolar, hypertension that presents emerged part with complaints of chest pain nausea, cough. . 01:47 Associated signs and symptoms:. jmm [employer]: 03/16 22:06 LMP 03/07/2021 wg Historical: - Allergies: 22:03 Codeine; wg 22:03 PENICILLINS; wg - Home Meds: 22:03 lisinopril Oral [Active]; levothyroxine [Active]; Tegretol Oral [Active]; Lasix Oral wg [Active]; gabapentin oral [Active]; Vicodin 5/500 Oral [Active]; - PMHx: 22:03 Angina; Anxiety; Bipolar disorder; Hypertension; Hypothyroidism; wg - Immunization history:: Adult Immunizations up to date. - Social history:: Smoking status: Patient reports the use of cigarette tobacco products, smokes one pack cigarettes per day. Patient uses alcohol, Patient/guardian denies using street drugs, IV drugs. ROS: 03/17 01:17 Constitutional: Negative for fever, chills, and weight loss, Cardiovascular: Negative jmm for chest pain, palpitations, and edema, Respiratory: Negative for shortness of breath, cough, wheezing, and pleuritic chest pain. Cardiovascular: Positive for chest pain. Abdomen/GI: Positive for vomiting. 01:47 All other systems are negative. jmm Exam: 01:17 Constitutional: This is a well developed, well nourished patient who is awake, alert, jmm and in no acute distress. Head/Face: atraumatic. Eyes: EOMI, no conjunctival erythema appreciated ENT: Moist Mucus Membranes Neck: Trachea midline, Supple Chest/axilla: Normal chest wall appearance and motion. 01:17 Abdomen/GI: Non distended, soft Back: Normal ROM Skin: General appearance color normal MS/ Extremity: Moves all extremities, no obvious deformities appreciated, no edema noted to the lower extremities Neuro: Awake and alert, normal gait Psych: Behavior is normal, Mood is normal, Patient is cooperative and pleasant 01:17 Cardiovascular: Rate: tachycardic, Rhythm: regular. Vital Signs: 03/16 21:59 BP 140 / 100; Pulse 124; Resp 20; Temp 98.9; Pulse Ox 99% on R/A; Weight 68.04 kg; wg Height 5 ft. 6 in. (167.64 cm); Pain 6/10; 23:30 BP 137 / 89; Pulse 96; Resp 15; Pulse Ox 100% ; bs2 03/17 00:30 BP 116 / 75; Pulse 75; Resp 75; Pulse Ox 100% ; bs2 01:30 BP 116 / 69; Pulse 78; Resp 15; Pulse Ox 100% ; bs2 03/16 21:59 Body Mass Index 24.21 (68.04 kg, 167.64 cm) wg MDM: 03/16 22:22 Patient medically screened. [facility] 03/17 01:50 Data reviewed: vital signs, nurses notes. Counseling: I had a detailed discussion with kae the patient and/or guardian regarding: the historical points, exam findings, and any diagnostic results supporting the discharge/admit diagnosis, lab results, radiology results. 01:52 ED course: EKG showed some mild ST depression in lead III and II, patient's pain is jmm decreased but not fully resolved. Aspirin was administered. Discussed the patient with Ms. Neel Zendejas whom accepted the patient to Dr. Pichardo service.. 03/16 22:10 Order name: Basic Metabolic Panel; Complete Time: 23:14 03/16 22:10 Order name: CBC with Diff; Complete Time: 22:58 wg 03/16 22:10 Order name: LFT's; Complete Time: 23:14 03/16 22:10 Order name: Magnesium; Complete Time: 23:14 03/16 22:10 Order name: NT PRO-BNP; Complete Time: 23:14 03/16 22:10 Order name: PT-INR; Complete Time: 22:58 wg 03/16 22:10 Order name: Troponin (emerg Dept Use Only); Complete Time: 23:14 03/16 22:43 Order name: Urine Dipstick-Ancillary; Complete Time: 22:44 [facility] 03/16 22:53 Order name: Lipase; Complete Time: 23:14 [facility] 03/16 23:20 Order name: SARS-COV-2 RT PCR; Complete Time: 23:22 [facility] 03/17 06:00 Order name: Troponin I; Complete Time: 00:49 [facility] 03/17 06:10 Order name: Lipid Profile; Complete Time: 00:49 [facility] 03/16 22:10 Order name: XRAY Chest (1 view); Complete Time: 00:49 03/16 22:10 Order name: EKG; Complete Time: 22:11 03/16 22:59 Order name: CT Head Brain wo Cont; Complete Time: 00:49 [facility] 03/17 06:10 Order name: T4 Free; Complete Time: 00:49 [facility] 03/17 06:10 Order name: Thyroid Stimulating Hormone; Complete Time: 00:49 [facility] 03/17 10:11 Order name: Troponin I; Complete Time: 00:49 [facility] 03/17 13:13 Order name: Urine Dipstick-Ancillary; Complete Time: 00:49 [facility] 03/17 13:44 Order name: Urine Drug Screen; Complete Time: 00:49 [facility] 03/16 22:10 Order name: Cardiac monitoring; Complete Time: 22:48 03/16 22:10 Order name: EKG - Nurse/Tech; Complete Time: 22:47 03/16 22:10 Order name: IV Saline Lock; Complete Time: 22:47 03/16 22:10 Order name: Labs collected and sent; Complete Time: 22:47 03/16 22:10 Order name: O2 Per Protocol; Complete Time: 22:15 03/16 22:10 Order name: O2 Sat Monitoring; Complete Time: 22:15 03/16 22:10 Order name: Urine Dipstick-Ancillary (obtain specimen); Complete Time: 22:47 03/17 01:41 Order name: CONS Physician Consult EDMS Administered Medications: 03/16 23:39 Drug: diphenhydrAMINE 25 mg Route: IVP; Site: right antecubital; bs2 03/17 02:07 Follow up: Response: No adverse reaction bs2 03/16 23:39 Drug: Pepcid (famotidine) 20 mg Route: IVP; Site: right antecubital; bs2 03/17 02:07 Follow up: Response: No adverse reaction bs2 03/16 23:40 Drug: NS 0.9% 500 ml Route: IV; Rate: bolus; Site: right antecubital; bs2 03/17 02:07 Follow up: IV Intake: 500ml bs2 02:07 Follow up: IV Status: Completed infusion bs2 03/16 23:40 Drug: Reglan (metoCLOPramide) 20 mg Route: IVP; Site: right antecubital; bs2 03/17 02:07 Follow up: Response: No adverse reaction bs2 01:25 Drug: fentaNYL (PF) 25 mcg Route: IVP; Site: right antecubital; bs2 02:06 Follow up: Response: No adverse reaction bs2 01:25 Drug: NS 0.9% 500 ml Route: IV; Rate: bolus; Site: right antecubital; bs2 02:52 Follow up: IV Status: Completed infusion; IV Intake: 500ml wg 01:25 Drug: Ketorolac 15 mg Route: IVP; Site: right antecubital; bs2 02:07 Follow up: Response: No adverse reaction bs2 02:44 Drug: Aspirin Chewable Tablet 324 mg Route: PO; bs2 02:52 Follow up: Response: No adverse reaction wg Disposition: 03/18 06:01 Co-signature as Attending Physician, Bruno Ferrell MD I agree with the assessment and johnny plan of care. Disposition Summary: 03/17/21 01:53 Hospitalization Ordered Hospitalization Status: Observation jm Provider: Paulette Mcneil Condition: Stable jmm Problem: new jmm Symptoms: are unchanged jmm Bed/Room Type: Standard [facility] Location: [facility] ER HOLD(03/17/21 02:42) cg Room Assignment: ERHOLD-(03/17/21 02:42) cg Diagnosis - Chest pain, unspecified jmm Forms: - Medication Reconciliation Form jmm - SBAR form jmm Signatures: Dispatcher [employer] Bruno Hackett MD MD cha Mickail, Joel, PA PA jmm Garcia, Cindy, RN RN cg Joanna Webb RN RN bs2 Perry Arguello RN wg Corrections: (The following items were deleted from the chart) 03/16 22:19 22:11 CORONAVIRUS+MR.LAB.BRZ ordered. EDMS EDMS :53 22:13 LIPASE+C.LAB.BRZ ordered. EDMS EDMS 03/17 02:15 02:09 PMHx: cardiomyopathy; bs2 2 02:42 01:53 Telemetry/MedSurg (observation) [facility] 02:42 01:53 [facility]
--- NOTE | 2021-03-17 01:54 | ER ---
Nurse's Notes [facility] Name: Denise Wick Age: 40 yrs Sex: Female : 1980 Arrival Date: 03/16/2021 Time: 21:56 Bed 15 Private MD: Diagnosis: Chest pain, unspecified Presentation: 03/16 21:59 Chief complaint: Patient states: Pt states she has had a cough for 3 days. States she wg thought her cough and breathing was related to her smoking. Pt states she feels slightly SOB. Pt has been nauseated and spitting up small amounts of clear sputum. Pt reports having a headache. Pt denies taking anything for pain. Pt c/o chest pain mid regan, non-radiating. Denies abd pain. Denies fevers. States she was drinking heavily and recently quit. 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 Pt very anxious in triage and verbalizing various complaints at various times. Coronavirus screen: Vaccine status: Patient reports being unvaccinated. Client denies travel out of the [place] in the last 14 days. Ebola Screen: Patient negative for fever greater than or equal to 101.5 degrees Fahrenheit, and additional compatible Ebola Virus Disease symptoms Patient denies exposure to infectious person. Patient denies travel to an Ebola-affected area in the 21 days before illness onset. No symptoms or risks identified at this time. Initial Sepsis Screen: Does the patient meet any 2 criteria? No. Patient's initial sepsis screen is negative. Does the patient have a suspected source of infection? No. Patient's initial sepsis screen is negative. Risk Assessment: Do you want to hurt yourself or someone else? Patient reports no desire to harm self or others. Onset of symptoms was March 13, 2021. 21:59 Method Of Arrival: Ambulatory wg 21:59 Acuity: CHRISTINA 3 wg Triage Assessment: 22:03 General: Appears uncomfortable, well developed, Behavior is cooperative, appropriate wg for age, anxious. Pain: Complains of pain in Headache. GI: Reports nausea. 22:06 Pain: Complains of pain in Chest, headache. wg [employer]: 22:06 LMP 03/07/2021 wg Historical: - Allergies: 22:03 Codeine; wg 22:03 PENICILLINS; wg - Home Meds: 22:03 lisinopril Oral [Active]; levothyroxine [Active]; Tegretol Oral [Active]; Lasix Oral wg [Active]; gabapentin oral [Active]; Vicodin 5/500 Oral [Active]; - PMHx: 22:03 Angina; Anxiety; Bipolar disorder; Hypertension; Hypothyroidism; wg - Immunization history:: Adult Immunizations up to date. - Social history:: Smoking status: Patient reports the use of cigarette tobacco products, smokes one pack cigarettes per day. Patient uses alcohol, Patient/guardian denies using street drugs, IV drugs. Screenin:40 Abuse screen: Denies threats or abuse. Denies injuries from another. Nutritional bs2 screening: No deficits noted. Tuberculosis screening: No symptoms or risk factors identified. Fall Risk None identified. Assessment: 23:40 General: Appears in no apparent distress. uncomfortable, well groomed, well developed, bs2 well nourished, Behavior is cooperative, anxious. Pain: Complains of pain in headache and epigastic pain Pain currently is 8 out of 10 on a pain scale. Neuro: Reports headache in entire. Cardiovascular: Rhythm is sinus tachycardia. GI: Abdomen is non-distended, Pt is actively vomiting bile, Bowel sounds present X 4 quads. Abd is soft and non tender X 4 quads. Reports epigastric pain, indigestion, nausea, vomiting. Vital Signs: 21:59 BP 140 / 100; Pulse 124; Resp 20; Temp 98.9; Pulse Ox 99% on R/A; Weight 68.04 kg; wg Height 5 ft. 6 in. (167.64 cm); Pain 6/10; 23:30 BP 137 / 89; Pulse 96; Resp 15; Pulse Ox 100% ; bs2 03/17 00:30 BP 116 / 75; Pulse 75; Resp 75; Pulse Ox 100% ; bs2 01:30 BP 116 / 69; Pulse 78; Resp 15; Pulse Ox 100% ; bs2 03/16 21:59 Body Mass Index 24.21 (68.04 kg, 167.64 cm) ED Course: 03/16 21:56 Patient arrived in ED. wm 22:03 Triage completed. wg 22:06 Arm band placed on right wrist. wg 22:19 Johnny Diggs PA is PHCP. [facility] 22:19 Bruno Ferrell MD is Attending Physician. jmm 22:20 Sheba Conti is Primary Nurse. kc4 22:47 Inserted saline lock: 24 gauge in right hand, using aseptic technique. Blood collected. ds4 22:56 XRAY Chest (1 view) In Process Unspecified. EDMS 23:23 CT Head Brain wo Cont In Process Unspecified. EDMS 23:40 Patient has correct armband on for positive identification. Placed in gown. Bed in low bs2 position. Call light in reach. Side rails up X 1. Pulse ox on. NIBP on. Warm blanket given. 23:40 Inserted saline lock: 20 gauge in right antecubital area, using aseptic technique. bs2 03/17 01:53 Paulette Mcneil MD is Hospitalizing Provider. [facility] 02:15 No provider procedures requiring assistance completed. bs2 02:53 Patient admitted, IV remains in place. wg Administered Medications: 03/16 23:39 Drug: diphenhydrAMINE 25 mg Route: IVP; Site: right antecubital; bs2 03/17 02:07 Follow up: Response: No adverse reaction bs2 03/16 23:39 Drug: Pepcid (famotidine) 20 mg Route: IVP; Site: right antecubital; bs2 03/17 02:07 Follow up: Response: No adverse reaction bs2 03/16 23:40 Drug: NS 0.9% 500 ml Route: IV; Rate: bolus; Site: right antecubital; bs2 03/17 02:07 Follow up: IV Intake: 500ml bs2 02:07 Follow up: IV Status: Completed infusion bs2 03/16 23:40 Drug: Reglan (metoCLOPramide) 20 mg Route: IVP; Site: right antecubital; bs2 03/17 02:07 Follow up: Response: No adverse reaction bs2 01:25 Drug: fentaNYL (PF) 25 mcg Route: IVP; Site: right antecubital; bs2 02:06 Follow up: Response: No adverse reaction bs2 01:25 Drug: NS 0.9% 500 ml Route: IV; Rate: bolus; Site: right antecubital; bs2 02:52 Follow up: IV Status: Completed infusion; IV Intake: 500ml 01:25 Drug: Ketorolac 15 mg Route: IVP; Site: right antecubital; bs2 02:07 Follow up: Response: No adverse reaction bs2 02:44 Drug: Aspirin Chewable Tablet 324 mg Route: PO; bs2 02:52 Follow up: Response: No adverse reaction wg Intake: 02:07 IV: 500ml; Total: 500ml. bs2 02:52 IV: 500ml; Total: 1000ml. wg Outcome: 01:53 Decision to Hospitalize by Provider. kae 02:53 Admitted to Tele 02:53 Condition: stable 02:53 Instructed on the need for admit. 15:07 Patient left the ED. es2 Signatures: Dispatcher [employer] EDMS Johnny Diggs PA PA jmm Swanson, Donovan ds4 Ava Franco Bridget, RN RN bs2 Perry Arguello RN wg Chuman, Kourtney kc4 Aarti Webb RN RN es2 Corrections: (The following items were deleted from the chart) 03/16 22:08 21:59 Chief complaint: Patient states: Pt states she has had a cough for 3 days. States wg she thought her cough and breathing was related to her smoking. Pt states she feels slightly SOB. Pt has been nauseated and spitting up small amounts of clear sputum. Pt reports having a headache. Pt denies taking anything for pain. Pt denies chest and abd pain. Denies fevers. 03/17 02:15 02:09 PMHx: cardiomyopathy; bs2 bs2
[2021-03-17] MEDS ORDERED: NITROGLYCERIN 0.4 MG/TAB SL PRN (02:33)
[2021-03-17] MEDS ORDERED: ONDANSETRON 4 MG/2 ML VIAL IV PRN (02:33)
[2021-03-17] MEDS ORDERED: ACETAMINOPHEN 500 MG TAB PO PRN (02:33)
[2021-03-17] MEDS ORDERED: MORPHINE 2 MG/ML SYR IV PRN (02:33)
[2021-03-17] MEDS ORDERED: KETOROLAC 30 MG/ML INJ IV ONE (02:56)
[2021-03-17] MEDS ORDERED: ASPIRIN 81 MG CHEWABLE TABLET ONE (03:03)
--- NOTE | 2021-03-17 03:14 | P.HP ---
Certification for Inpatient Patient admitted to: Observation With expected LOS: <2 Midnights Patient will require the following post-hospital care: None Practitioner: I am a practitioner with admitting privileges, knowledge of patient current condition, hospital course, and medical plan of care. Services: Services provided to patient in accordance with Admission requirements found in Title 42 Section 412.3 of the Code of Federal Regulations Patient History Date of Service: 03/17/21 Reason for admission: chest pain History of Present Illness: Ms. Wick is a 40 yo F with HTN, HLD, hypothyroidism, history of seizures who presents with chest pain. She says for the past 3 days she has had fatigue, headache and cough. Today she began to have nausea and vomiting followed by chest pain. She describes 7/10 constant tight squeezing chest pain radiating to her left arm and left jaw. Pain worse with walking, improved with laying on her side. Reports diaphoresis, lightheadedness and blurry vision. Initial troponin negative. Allergies codeine Allergy (Verified 04/03/20 10:43) Itching/Hives/Rash Home Medications: Alprazolam [Xanax] 0.25 mg PO Q8H PRN #30 tablet 04/03/20 Alprazolam [Xanax] 1 tab PO DAILY 04/03/20 Aspirin [Aspirin EC 81 MG] 81 mg PO DAILY #30 tablet. 04/03/20 Atorvastatin Calcium [Lipitor] 40 mg PO DAILY #30 tablet 04/03/20 Gabapentin 1 tab PO BID 04/03/20 Hydrocodone/Acetaminophen [Vicodin Hp 10-325 mg Tablet] 1 tab PO BID 04/03/20 Levothyroxine [Synthroid*] 1 tab PO DAILY 04/03/20 Metoprolol Tartrate [Lopressor*] 50 mg PO BID #60 tab 04/03/20 Nitroglycerin [Nitrostat] 1 tab PO SEECOM PRN 04/03/20 carBAMazepine [Tegretol] 1 tab PO BID 04/03/20 hydroCHLOROthiazide [Hydrochlorothiazide*] 12.5 mg PO DAILY #30 cap 04/03/20 - Past Medical/Surgical History -: Hypertension -: Hypothyroidism -: Hyperlipidemia -: seizures -: c section -: tubal ligation - Family History Father -: Heart disease Notes: HI x 2 - Social History Smoking Status: Current every day smoker Alcohol use: Yes CD- Drugs: Yes Caffeine use: Yes Place of Residence: Home Review of Systems 10-point ROS is otherwise unremarkable General: Malaise Eyes: Vision Change Respiratory: Cough Cardiovascular: Chest Pain, Light Headedness Gastrointestinal: Nausea, Vomiting Physical Examination - Physical Exam General: Alert, In no apparent distress HEENT: Atraumatic, PERRLA, Mucous membr. moist/pink, EOMI, Sclerae nonicteric Neck: Supple, 2+ carotid pulse no bruit, No LAD, Without JVD or thyroid abnormality Respiratory: Clear to auscultation bilaterally, Normal air movement Cardiovascular: Regular rate/rhythm, Normal S1 S2 Gastrointestinal: Normal bowel sounds, No tenderness Musculoskeletal: No tenderness Integumentary: No rashes Neurological: Normal gait, Normal speech, Normal strength at 5/5 x4 extr, Normal tone, Normal affect Lymphatics: No axilla or inguinal lymphadenopathy - Studies Laboratory Data (last 24 hrs) 03/16/21 22:35: Lipase Cancelled 03/16/21 22:35: PT 12.0, INR 1.04 03/16/21 22:35: WBC 5.60, Hgb 13.4, Hct 39.9, Plt Count 308 03/16/21 22:35: Sodium 138, Potassium 3.4 L, BUN 11, Creatinine 0.66, Glucose 106, Magnesium 2.1, Total Bilirubin 0.2, AST 21, ALT 23, Alkaline Phosphatase 67, Lipase 211 Assessment and Plan - Problems (Diagnosis) (1) Chest pain, rule out acute myocardial infarction Current Visit: No Status: Acute (2) Dyslipidemia Current Visit: No Status: Chronic (3) Hypertension Current Visit: No Status: Chronic Qualifiers: Hypertension type: primary hypertension Qualified Code(s): I10 - Essential (primary) hypertension - Plan on tele, cardiology consulted trend troponins, repeat EKG daily ASA, metoprolol, atorvastatin PRN morphine and NTG reconcile and continue home medications DVT ppx Discharge Plan: Home Plan to discharge in: 24 Hours - Advance Directives Does patient have a Living Will: No Does patient have a Durable POA for Healthcare: No - Code Status/Comfort Care Code Status Assessed: Yes (full code ) Critical Care: No Time Spent Managing Pts Care (In Minutes): 70
[2021-03-17 03:20] VITALS: O2SAT 99
[2021-03-17] MEDS ORDERED: METOPROLOL TAR 25 MG TAB PO SCH ×2 (06:00)
[2021-03-17 06:10] LABS: Thyroid Stimulating Hormone 3.98 uIU/mL (0.360-3.740)
[2021-03-17] MEDS ORDERED: MORPHINE 2 MG/ML SYR ONE (06:24)
[2021-03-17] MEDS ORDERED: METOPROLOL TAR 25 MG TAB ONE (07:44)
--- NOTE | 2021-03-17 08:38 | RAD REPORT ---
EXAM DESCRIPTION: RAD - Chest Single View - 03/16/2021 10:56 pm CLINICAL HISTORY: CHEST PAIN Chest pain. COMPARISON: Chest Single View dated 02/06/2021; Chest Single View dated 01/25/2021; Chest Single View d ated 07/21/2020; Chest Single View dated 07/19/2020 FINDINGS: Portable technique limits examination quality. The lungs are grossly clear. The heart is upper limit of normal in size. No displaced fractures. IMPRESSION: No acute intrathoracic process suspected.
[2021-03-17] MEDS ORDERED: ENOXAPARIN 40 MG/0.4 ML SQ SCH (09:00)
[2021-03-17] MEDS ORDERED: ASPIRIN EC 81 MG TAB PO SCH (09:00)
[2021-03-17] MEDS ORDERED: ENOXAPARIN 40 MG/0.4 ML SQ ONE (09:28)
[2021-03-17] MEDS ORDERED: ASPIRIN EC 81 MG TAB PO ONE (09:28)
[2021-03-17] MEDS ORDERED: ACETAMINOPHEN 500 MG TAB ONE (10:29)
[2021-03-17 10:31] VITALS: BMI 24.2
--- NOTE | 2021-03-17 11:21 | RAD REPORT ---
EXAM DESCRIPTION: Head Brain Wo Cont. RadLex: CT HEAD WITHOUT IV CONTRAST CLINICAL HISTORY: HEADACHE. TECHNIQUE: Axial, coronal, and sagittal images through the brain were performed in the absence of in travenous contrast. This exam was performed according to our departmental dose-optimization program w hich includes use of Automated Exposure Control, adjustment of the mA and/or kV according to patient size and/or use of iterative reconstruction technique. COMPARISON: CT head from July 19, 2020. FINDINGS: The brain parenchyma appears unremarkable. There is no intra-axial or extra-axial bleed se en. There is no mass or mass effect. The ventricles are normal in size shape and configuration. The o rbital contents appear unremarkable. The visualized paranasal sinuses and mastoid air cells are patent. No acute fracture is identified. IMPRESSION: No acute intracranial abnormality identified. Electronically signed by: Anita Pizarro MD 03/16/2021 11:33 PM CDT Due to temporary technical issues with the PACS/Fluency reporting system, reports are being signed by the in house radiologist without review as a courtesy to ensure prompt reporting. The interpreting r adiologist is fully responsible for the content of the report.
[2021-03-17 12:12] VITALS: BP 105/52
--- NOTE | 2021-03-17 12:42 | EKG ---
Test Date: 2021-03-16 Test Time: 22:20:10 Glass Technologist: TAMIKA MEASUREMENT RESULTS: Intervals: Rate: 103 [place]: 122 QRSD: 102 QT: 330 QTc: 432 [place]: P: 58 NJ: 122 QRS: 79 T: 1 INTERPRETIVE STATEMENTS: Sinus tachycardia with occasional premature ventricular complexes Nonspecific ST and T wave abnormality Abnormal ECG Compared to ECG 02/06/2021 06:57:51 No significant changes Electronically Signed On 03-17-21 12:41:26 CDT by Reggie Laguna
[2021-03-17 13:12] LABS: Urine Blood Negative (Negative); Urine Glucose Negative (Negative); Urine Protein Negative (Negative); Urine pH 7.5 (5.0-7.0)
--- NOTE | 2021-03-17 13:13 | ECHO ---
HEIGHT: 5 ft 6 in WEIGHT: 150 lb 0 oz DATE OF STUDY: 03/17/[address]: Reggie Laguna MD 2-DIMENSIONAL: YES M.MODE: YES DOPPLER: YES COLOR FLOW: YES TDS: NO PORTABLE: NO DEFINITY: NO BUBBLE STUDY: NO DIAGNOSIS: CHEST PAIN CARDIAC HISTORY: CATHERIZATION: NO SURGERY: NO PROSTHETIC VALVE: NO PACEMAKER: NO MEASUREMENTS (cm) DIASTOLIC (NORMALS) SYSTOLIC (NORMALS) IVSd 0.9 (0.6-1.2) LA Diam 3.8 (1.9-4.0) LVEF 50-55% LVIDd 4.8 (3.5-5.7) LVIDs 3.8 (2.0-3.5) %FS % LVPWd 1.0 (0.6-1.2) Ao Diam 2.8 (2.0-3.7) 2 DIMENSIONAL ASSESSMENT: RIGHT ATRIUM: NORMAL LEFT ATRIUM: NORMAL RIGHT VENTRICLE: NORMAL LEFT VENTRICLE: NORMAL TRICUSPID VALVE: NORMAL MITRAL VALVE: NORMAL PULMONIC VALVE: NORMAL AORTIC VALVE: NORMAL PERICARDIAL EFFUSION: NONE AORTIC ROOT: NORMAL LEFT VENTRICULAR WALL MOTION: NORMAL DOPPLER/COLOR FLOW: NORMAL COMMENTS: NORMAL LEFT VENTRICULAR SIZE AND FUNCTION. NO WALL MOTION ABNORMALITY. NO EFFUSION. TECHNOLOGIST: Christian SANCHEZ
[2021-03-17 13:42] LABS: Barbiturates NEGATIVE (NEGATIVE); METHAMPHETAM NEGATIVE (NEGATIVE); Opiates NEGATIVE (NEGATIVE); THC Cannibis NEGATIVE (NEGATIVE)
[2021-03-17 13:43] LABS: Benzodiazepines NEGATIVE (NEGATIVE); Cocaine NEGATIVE (NEGATIVE); Methadone NEGATIVE (NEGATIVE); Phencyclidine NEGATIVE (NEGATIVE)
--- NOTE | 2021-03-17 15:58 | CON ---
Date of Consultation: 03/17/2021 Reason For Consultation: Atypical chest pain. History Of Present Illness: Ms. Wick is 40, has a history of anxiety, chronic pain and neuropathy, hypertension, dyslipidemia, came in with multiple complaints including vomiting, chest pain, shortnes s of breath, cough, anxiety. No PND, orthopnea, pedal edema, palpitations, or syncope. Denied any c hest pain that is exertional. Her chest pain was not exertional. It was sharp, stabbing left latera l side, worsened with breathing and cough. No fever, no chills. Past Medical History: As stated above. Allergies: TO CODEINE. Review of Systems: Negative. Social History: Negative. Family History: Negative. Medications: At home include Tegretol, Neurontin, and Vicodin. Physical Examination: Vital Signs: Stable, afebrile. HEENT: Negative. Neck: Supple with no bruit. Chest: Clear. Cardiac exam: Normal rhythm and rate. No murmurs, gallops, or rubs. Abdomen: Benign. Extremities: Revealed no clubbing, cyanosis, or edema. Diagnostic Data: As stated earlier EKG is normal. Troponin is negative. Cholesterol was high. Impression And Plan: Atypical chest pain with cough, pleuritic, rule out pericarditis. Echocardiogr am is pending. The patient should probably have an outpatient event monitor and outpatient MPI becau se of her symptoms of tachycardia. I do not think we are dealing with acute coronary syndrome. I th ink if her echocardiogram is normal, she can go home. She should be on a statin because of her dysli pidemia. She should continue her lisinopril for hypertension. SHILPI/GENESIS Voice ID: [id number] Report ID: [id number]
[2021-03-17 16:04] VITALS: TEMP 98.9
[2021-03-17] MEDS ORDERED: ATORVASTATIN 40 MG TAB PO SCH (21:00)
== END 2021-03-17 14:59 | disposition home or self-care (01) ==
LOC: ER 21:53 → ERHOLD 03-17 01:46
PROVIDERS: ADMIT Hospitalist; ATTEND Hospitalist
DX: R07.89 Other chest pain (principal); R05 Cough; I10 Essential (primary) hypertension; E78.5 Hyperlipidemia, unspecified; G89.29 Other chronic pain; E03.9 Hypothyroidism, unspecified; F41.9 Anxiety disorder, unspecified; G62.9 Polyneuropathy, unspecified; R56.9 Unspecified convulsions; F31.9 Bipolar disorder, unspecified; F17.210 Nicotine dependence, cigarettes, uncomplicated; Z20.822 Contact with and (suspected) exposure to COVID-19; Z79.82 Long term (current) use of aspirin; Z88.6 Allergy status to analgesic agent; Z88.0 Allergy status to penicillin; Z82.49 Family history of ischemic heart disease and other diseases of the circulatory system
CPT/HCPCS: 93005; 93306; 85025; 80048; 36415; 83735; 85610; 80061; 80076; 84443; 81003 ×2; 84484 ×3; 84439; 83690; 83880; 80307; 70450; 71045; 94760; U0003; J2765; J1200; J1650; J3010 ×2; J2270; J7030; 96361; 96374; 96375; 99285; G0378

== ENCOUNTER 2021-03-24 17:26 | Emergency (ER) | payer OTHER ==
[2021-03-24 19:01] LABS: Absolute Lymphocytes (CBC) 2.2 K/uL (0.7-4.9); Basophils % 1.3 % (0-1.3); Hematocrit 43.9 % (36.0-45.0); MPV 7.5 fL (7.6-11.3); RBC Red Blood Cell Count 4.91 M/uL (3.86-4.86)
[2021-03-24] MEDS ORDERED: NA CHLORIDE 0.9% 1,000 ML ONE (19:33)
[2021-03-24 19:52] LABS: Arterial Blood Carboxyhemoglob 2.9 % (0-1.5); Blood Gas Oxyhemoglobin 94.7 % (94-97); Blood O2 Saturation 98.3 % (92-98.5)
[2021-03-24 19:57] LABS: Protime INR 1.02
[2021-03-24 20:00] LABS: ALT/SGPT 42 U/L (12-78); AST/SGOT 61 U/L (15-37); Albumin 3.7 g/dL (3.4-5.0); Alkaline Phosphatase 85 U/L (45-117); BUN Blood Urea Nitrogen 4 mg/dL (7-18); Bicarbonate 21 mmol/L (21-32); Bilirubin Direct < 0.1 mg/dL (0-0.2); Bilirubin Total 0.3 mg/dL (0.2-1.0); Glucose Level 101 mg/dL (74-106); Potassium 3.2 mmol/L (3.5-5.1); Protein, Total 8.3 g/dL (6.4-8.2); Sodium Level 142 mmol/L (136-145); Troponin (Emerg Dept Use Only) < 0.02 ng/mL (0.0-0.045)
[2021-03-24] MEDS ORDERED: KETOROLAC 30 MG/ML INJ ONE (20:02)
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
[2021-03-24 20:49] VITALS: BP 123/91; TEMP 98.7; O2SAT 100
--- NOTE | 2021-03-25 15:58 | EKG ---
Test Date: 2021-03-24 Test Time: 19:09:33 [employer]: MEASUREMENT RESULTS: Intervals: Rate: 100 MO: 114 QRSD: 104 QT: 374 QTc: 482 [place]: P: 50 MO: 114 QRS: 74 T: 10 INTERPRETIVE STATEMENTS: Normal sinus rhythm Nonspecific ST abnormality Prolonged QT Abnormal ECG Compared to ECG 03/16/2021 22:20:10 Prolonged QT interval now present Sinus tachycardia no longer present Ventricular premature complex(es) no longer present ST (T wave) deviation still present Electronically Signed On 03-25-21 15:56:23 CDT by Reggie Laguna
== END 2021-03-24 20:39 | disposition left against medical advice (07) ==
LOC: ER 17:26
DX: R07.9 Chest pain, unspecified (principal); M25.512 Pain in left shoulder; I10 Essential (primary) hypertension; E03.9 Hypothyroidism, unspecified; F31.9 Bipolar disorder, unspecified; F17.210 Nicotine dependence, cigarettes, uncomplicated; Z88.0 Allergy status to penicillin; Z88.5 Allergy status to narcotic agent
CPT/HCPCS: 93005; 85025; 80048; 36415; 80320; 80329 ×2; 85610; 85379; 80076; 85730; 84484; 82805; 96374; 99283; J7030

== ENCOUNTER 2021-03-25 01:45 | Emergency (ER) | payer OTHER ==
[2021-03-25] MEDS ORDERED: POTASSIUM 25 MEQ EFFERV TAB ONE (02:44)
[2021-03-25] MEDS ORDERED: THIAMINE 200 MG/2 ML INJ ONE (02:44)
[2021-03-25] MEDS ORDERED: MULTIVITAMINS 10 ML VIAL (INJ) IV ONE (02:45)
[2021-03-25] MEDS ORDERED: NA CHLORIDE 0.9% 1,000 ML ONE (02:46)
[2021-03-25] MEDS ORDERED: FOLIC ACID 5 MG/ML VIAL ONE (02:46)
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
[2021-03-25 03:07] LABS: Absolute Lymphocytes (CBC) 1.4 K/uL (0.7-4.9); Basophils % 1.3 % (0-1.3); Hematocrit 42.6 % (36.0-45.0); Lymphocytes % 30.8 % (15.3-44.8); MPV 7.8 fL (7.6-11.3); RBC Red Blood Cell Count 4.78 M/uL (3.86-4.86)
[2021-03-25 03:11] VITALS: BP 150/101; TEMP 98.6; O2SAT 99
[2021-03-25 03:12] LABS: BUN Blood Urea Nitrogen 6 mg/dL (7-18); Bicarbonate 24 mmol/L (21-32); Glucose Level 107 mg/dL (74-106); Potassium 3.4 mmol/L (3.5-5.1); Sodium Level 142 mmol/L (136-145)
--- NOTE | 2021-03-26 10:45 | EKG ---
Test Date: 2021-03-25 Test Time: 01:44:03 Mid Level Provider: PAOLA MEASUREMENT RESULTS: Intervals: Rate: 116 UT: 126 QRSD: 98 QT: 330 QTc: 458 [place]: P: 42 UT: 126 QRS: 11 T: 8 INTERPRETIVE STATEMENTS: Sinus tachycardia with occasional premature ventricular complexes Nonspecific ST abnormality Abnormal ECG Compared to ECG 03/24/2021 19:09:33 Ventricular premature complex(es) now present Sinus rhythm no longer present Prolonged QT interval no longer present ST (T wave) deviation still present Electronically Signed On 03-26-21 10:40:22 CDT by Reggie Laguna Electronically Signed On 03-26-21 10:40:48 CDT by Reggie Laguna
== END 2021-03-25 03:05 | disposition left against medical advice (07) ==
LOC: ER 01:45
DX: Z04.71 Encounter for examination and observation following alleged adult physical abuse (principal)
CPT/HCPCS: 93005; 85025; 80048; 36415; 80320; 82565; 96374; 99284; J3411; J7030

== ENCOUNTER 2021-08-29 17:42 | Emergency (ER) | payer OTHER ==
--- OUTSIDE RECORDS SUMMARY | 2021-08-29 17:54 | XMS REPORT | Continuity of Care Document ---
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 0715, STAT lactated 2020- No 1000mL at 999 Univ ers ringers IV 10-13 04-20 mL/hr, ity of infusion 12:15: 13:45 1,000 mL, [place] as 1,000 mL 00 :00 IV Medical Infusion, [place] ONCE, 1 dose, [facility] 10/13/20 at 0715, Routine LORazepam 2020- No 1mg 1 mg, Slow U nivers (ATIVAN) 10-13 IV Push, ity of injection 1 12:00: 10:58 ONCE, 1 [place] mg 00 :00 dose, [facility] 10/13/20 at [place] 0700, STAT aspirin 2020- No 325mg 325 mg, Unive rs tablet 325 10-13 Oral, ity of mg 11:00: 10:04 ONCE, 1 [place] 00 :00 dose, [facility] 10/13/20 at [place] 0600, STAT nitroglycer 2020- No .4mg 0.4 mg, Un sushant in 10-13 Sublingual ity of (NITROSTAT) 11:00: 10:03 , ONCE, 1 [place] sublingual 00 :00 dose, [facility] Medi steve tablet 0.4 10/13/20 at [facility] mg 0600, RAJANI LORazepam 2020- No 1mg 1 mg, Slow U nivers (ATIVAN) 10-13 IV Push, ity of injection 1 11:00: 10:04 ONCE, 1 [place] mg 00 :00 dose, [facility] 10/13/20 at Branch 0600, STAT acetaminoph 2020- No 1000mg 1,000 mg, Univers en 09-1725 Oral, ity of (TYLENOL) 05:15: 04:05 ONCE, 1 [place] tablet 00 :00 dose, [facility] Medical 1,000 mg 09/17/20 at [facility] h 0015, RAJANI thiamine 2020- No IV Univers (VITAMIN 09-17 Infusion, ity o f B1) 100 mg, 04:00: 04:55 at 999 [place]al as foLIC acid 00 :00 mL/hr, Medical (FOLATE) 1 ONCE, 1 Branch mg in D5W dose, Wed 0.45% NaCl 09/16/20 at (1/2NS) IV 2300, Solution 1,000 mL lisinopriL 2020- No 20mg 20 mg, Univ ers (PRINIVIL,Z 3-25 03-25 Oral, ity of ESTRIL) 03:45: 03:02 ONCE, 1 [place] tablet 20 00 :00 dose, Wed Medic al mg 09/16/20 at Branch 2245, Routine ondansetron 2020- No 4mg 4 mg, Slow Univers (ZOFRAN 3-25 03-25 IV Push, ity of (PF)) 03:45: 03:02 ONCE, 1 [place] injection 4 00 :00 dose, Wed Med ical mg 09/16/20 at Branch 2245, RAJANI NaCl 0.9% 2020- No 1000mL at 999 Uni vers (NS) bolus 25 03-25 mL/hr, ity of infusion 03:45: 04:55 1,000 mL, Vishal as 1,000 mL 00 :00 IV Medical Infusion, Branch ONCE, 1 dose, 09/16/20 at 2245, STAT ondansetron Yes [id number] 4mg Take 1 Univers 4 mg 3-24 tablet by ity of disintegrat 00:00: mouth [place] ing tablet 00 every 8 Medica l (eight) Branch hours as needed for Nausea and Vomiting (N/V). ondansetron Yes [id number] 4mg Take 1 Univers 4 mg 3-24 tablet by ity of disintegrat 00:00: mouth [place] ing tablet 00 every 8 Medica l (eight) Branch hours as needed for Nausea and Vomiting (N/V). ondansetron 0 Yes [id number] 4mg Take 1 Univers 4 mg 3-24 tablet by ity of disintegrat 00:00: mouth [place] ing tablet 00 every 8 Medica l (eight) Branch hours as needed for Nausea and Vomiting (N/V). ondansetron 2020-0 Yes [id number] 4mg Take 1 Univers 4 mg 3-24 tablet by ity of disintegrat 00:00: mouth [place] ing tablet 00 every 8 Medica l (eight) Branch hours as needed for Nausea and Vomiting (N/V). ondansetron 2020-0 Yes [id number] 4mg Take 1 Univers 4 mg 3-24 tablet by ity of disintegrat 00:00: mouth [place] ing tablet 00 every 8 Medica l (eight) Branch hours as needed for Nausea and Vomiting (N/V). ondansetron 2020- No [id number] 4mg Take 1 Univers 4 mg 3-24 05-30 tablet by ity of disintegrat 00:00: 00:00 [place] tablet 00 :00 every 8 Medica l (eight) Branch hours as needed for Nausea and Vomiting (N/V). ondansetron 2020- No [id number] 4mg Take 1 Univers 4 mg 3-24 03-24 tablet by ity of disintegrat 00:00: 00:00 [place] tablet 00 :00 every 8 Medica l (eight) Branch hours as needed for Nausea and Vomiting (N/V). iohexol 2020- No [id number] 120mL 120 mL, Univers (OMNIPAQUE 3-14 03-14 Intravenou it y of 350 11:45: 11:27 s, ONCE, 1 [place] BULK-100 00 :00 dose, [facility] mL) 09/06/20 at Branch injection 0645, 120 mL Routine KCL 20 mEq 0 Yes [id number] 20meq Take 1 Univers tablet 3-14 tablet by ity of 00:00: mouth [place] [address] [facility] KCL 20 mEq 2020-0 Yes [id number] 20meq Take 1 Univers tablet 3-14 tablet by ity of 00:00: mouth [place] [address] [facility] KCL 20 mEq 2020-0 Yes [id number] 20meq Take 1 Univers tablet 3-14 tablet by ity of 00:00: mouth [place] [address] [facility] KCL 20 mEq 2020-0 Yes [id number] 20meq Take 1 Univers tablet 3-14 tablet by ity of 00:00: mouth [place] [address] [facility] KCL 20 mEq 2020-0 Yes [id number] 20meq Take 1 Univers tablet 3-14 tablet by ity of 00:00: mouth [place] [address] [facility] KCL 20 mEq 2020-0 Yes [id number] 20meq Take 1 Univers tablet 3-14 tablet by ity of 00:00: mouth [place] [address] [facility] KCL 20 mEq 0 2020- No [id number] 20meq Take 1 Univers tablet 3-14 05-30 tablet by ity of 00:00: 00:00 mouth [place] 00 :00 daily. Medical Branch furosemide 2020- No [id number] 40mg Take 1 Univers (LASIX) 40 3-14 03-18 tablet by ity of mg tablet 00:00: 04:59 mouth [place] 00 :00 daily for Medical 3 days. Branch hydrOXYzine 2020- No [id number] 25mg 25 mg, Univers (ATARAX) 3-10 03-10 Oral, ity of tablet 25 02:00: 01:21 ONCE, 1 [place] mg 00 :00 dose, Tue Medical 09/01/20 at Branch 2000, RAJANI hydralAZINE 2020- No [id number] 10mg 10 mg, Univers (APRESOLINE 3-10 03-10 Slow IV ity of ) injection 01:30: 00:25 Push, [place] 10 mg 00 :00 ONCE, 1 Medical dose, [facility] 09/01/20 at 1930, STAT
In dication: Hypertensi ve Emergency ondansetron 2020- No [id number] 4mg 4 mg, Slow Univers (ZOFRAN 3-10 -10 IV Push, ity of (PF)) 01:15: 00:10 ONCE, 1 [place] injection 4 00 :00 dose, [facility] ical mg 09/01/20 at Branch 1915, RAJANI hydrOXYzine Yes [id number] 25mg Take 1 Univers 25 mg 3-09 tablet by ity of tablet 00:00: mouth [place] 00 every 6 Medical (six) Branch hours as needed for Anxiety. hydrOXYzine Yes [id number] 25mg Take 1 Univers 25 mg 3-09 tablet by ity of tablet 00:00: mouth [place] 00 every 6 Medical (six) Branch hours as needed for Anxiety. hydrOXYzine 2020-0 Yes [id number] 25mg Take 1 Univers 25 mg 3-09 tablet by ity of tablet 00:00: mouth [place] 00 every 6 Medical (six) Branch hours as needed for Anxiety. hydrOXYzine 0 Yes [id number] 25mg Take 1 Univers 25 mg 3-09 tablet by ity of tablet 00:00: mouth [place] 00 every 6 Medical (six) Branch hours as needed for Anxiety. hydrOXYzine 2020-0 Yes [id number] 25mg Take 1 Univers 25 mg 3-09 tablet by ity of tablet 00:00: mouth [place] 00 every 6 Medical (six) Branch hours as needed for Anxiety. hydrOXYzine 0 Yes [id number] 25mg Take 1 Univers 25 mg 3-09 tablet by ity of tablet 00:00: mouth [place] 00 every 6 Medical (six) Branch hours as needed for Anxiety. hydrOXYzine Yes [id number] 25mg Take 1 Univers 25 mg 3-09 tablet by ity of tablet 00:00: mouth [place] 00 every 6 Medical (six) Branch hours as needed for Anxiety. hydrOXYzine 2020- No [id number] 25mg Take 1 Univers 25 mg 3-09 05-30 tablet by ity of tablet 00:00: 00:00 mouth [place] 00 :00 every 6 Medical (six) Branch hours as needed for Anxiety. hydroCHLORO 2020- No [id number] 25mg Take 1 Univers thiazide 25 3-09 04-09 tablet by it y of mg tablet 00:00: 04:59 mouth [place] 00 :00 every Medical morning Branch and evening for 30 days. hydroCHLORO 2020- No [id number] 25mg Take 1 Univers thiazide 25 3-09 04-09 tablet by it y of mg tablet 00:00: 04:59 mouth [place] 00 :00 every Medical morning Branch and evening for 30 days. hydroCHLORO 2020- No [id number] 25mg Take 1 Univers thiazide 25 3-09 04-09 tablet by it y of mg tablet 00:00: 04:59 mouth [place] 00 :00 every Medical morning Branch and evening for 30 days. hydrOXYzine 2020- No [id number] 25mg Take 1 Univers 25 mg 3-09 03-09 tablet by ity of tablet 00:00: 00:00 mouth [place] 00 :00 every 6 Medical (six) Branch hours as needed for Anxiety. gabapentin 2019-06 Yes 300mg Take 300 Un sushant 300 mg 0-21 mg by ity of capsule 02:02: mouth 2 [place] 34 (two) Medical times Branch daily. levothyroxi 2019-06 Yes 100ug Take 100 U nivers ne 100 mcg 0-21 mcg by ity of tablet 02:02: mouth [place] 34 daily. Medical Branch meloxicam 2019-06 Yes 7.5mg Take 7.5 Uni vers 7.5 mg 0-21 mg by ity of tablet 02:02: mouth [place] [address] daily. Medical Branch metoprolol 2019- Yes 25mg Take 25 mg U nivers tartrate 25 0-21 by mouth ity of mg tablet 02:02: daily. [place] [address] Medical Branch omeprazole 2019- Yes 20mg Take 20 mg U nivers 20 mg 0-21 by mouth ity of capsule 02:02: daily. [place] [address] Medical Branch pravastatin 2019- Yes 20mg Take 20 mg Univers 20 mg 0-21 by mouth ity of tablet 02:02: at [place] [address] bedtime. Medical Branch triamcinolo 2019- Yes .1% Apply 0.1 U nivers ne 0-21 % to ity of acetonide/l 02:02: area(s) 2 [place] .s.b. 34 (two) Medical (ARISTOCORT times Branch A TOPICAL) daily. gabapentin 2019-06 Yes 300mg Take 300 Un sushant 300 mg 0-21 mg by ity of capsule 02:02: mouth 2 [place] [address] (two) Medical times Branch daily. levothyroxi 2019-06 Yes 100ug Take 100 U nivers ne 100 mcg 0-21 mcg by ity of tablet 02:02: mouth [place] [address] daily. Medical Branch meloxicam 2019- Yes 7.5mg Take 7.5 Uni vers 7.5 mg 0-21 mg by ity of tablet 02:02: mouth [place] [address] daily. Medical Branch metoprolol 2019- Yes 25mg Take 25 mg U nivers tartrate 25 0-21 by mouth ity of mg tablet 02:02: daily. [place] [address] Medical Branch omeprazole 2019- Yes 20mg Take 20 mg U nivers 20 mg 0-21 by mouth ity of capsule 02:02: daily. [place] [address] Medical Branch pravastatin 2019- Yes 20mg Take 20 mg Univers 20 mg 0-21 by mouth ity of tablet 02:02: at [place] [address] bedtime. Medical Branch triamcinolo 2019- Yes .1% Apply 0.1 U nivers ne 0-21 % to ity of acetonide/l 02:02: area(s) 2 [place] .s.b. 34 (two) Medical (ARISTOCORT times Branch A TOPICAL) daily. gabapentin 2019-06 Yes 300mg Take 300 Un sushant 300 mg 0-21 mg by ity of capsule 02:02: mouth 2 [place] [address] (two) Medical times Branch daily. levothyroxi 2019-06 Yes 100ug Take 100 U nivers ne 100 mcg 0-21 mcg by ity of tablet 02:02: mouth [place] [address] daily. Medical Branch meloxicam 2019-06 Yes 7.5mg Take 7.5 Uni vers 7.5 mg 0-21 mg by ity of tablet 02:02: mouth [place] [address] daily. Medical Branch metoprolol 2019-06 Yes 25mg Take 25 mg U nivers tartrate 25 0-21 by mouth ity of mg tablet 02:02: daily. [place] [address] Medical Branch omeprazole 2019-06 Yes 20mg Take 20 mg U nivers 20 mg 0-21 by mouth ity of capsule 02:02: daily. [address] Branch pravastatin 2019-06 Yes 20mg Take 20 mg Univers 20 mg 0-21 by mouth ity of tablet 02:02: at [place] [address] bedtime. Medical Branch triamcinolo 2019-06 Yes .1% Apply 0.1 U nivers ne 0-21 % to ity of acetonide/l 02:02: area[facility]s) 2 [place] [facility] Medical (ARISTOCORT times Branch A TOPICAL) daily. gabapentin 2019-06 Yes 300mg Take 300 Un sushant 300 mg 0-21 mg by ity of capsule 02:02: mouth 2 [place] [address] (two) Medical times Branch daily. levothyroxi 2019-06 Yes 100ug Take 100 U nivers ne 100 mcg 0-21 mcg by ity of tablet 02:02: mouth [place] [address] daily. Medical Branch meloxicam 2019-06 Yes 7.5mg Take 7.5 Uni vers 7.5 mg 0-21 mg by ity of tablet 02:02: mouth [place] [address] daily. Medical Branch metoprolol 2019-06 Yes 25mg Take 25 mg U nivers tartrate 25 0-21 by mouth ity of mg tablet 02:02: daily. [address] Branch omeprazole 2019-06 Yes 20mg Take 20 mg U nivers 20 mg 0-21 by mouth ity of capsule 02:02: daily. [address] Branch pravastatin 2019- Yes 20mg Take 20 mg Univers 20 mg 0-21 by mouth ity of tablet 02:02: at [place] [address] bedtime. Medical Branch triamcinolo 2020- Yes .1% Apply 0.1 U nivers ne 0-21 % to ity of acetonide/l 02:02: area(s) 2 [place] .s.b. 34 (two) Medical (ARISTOCORT times Branch A TOPICAL) daily. gabapentin 2019- Yes 300mg Take 300 Un sushant 300 mg 0-21 mg by ity of capsule 02:02: mouth 2 [place] [address] (two) Medical times Branch daily. levothyroxi 2019- Yes 100ug Take 100 U nivers ne 100 mcg 0-21 mcg by ity of tablet 02:02: mouth [place] [address] daily. Medical Branch meloxicam 2019- Yes 7.5mg Take 7.5 Uni vers 7.5 mg 0-21 mg by ity of tablet 02:02: mouth [place] [address] daily. Medical Branch metoprolol 2019- Yes 25mg Take 25 mg U nivers tartrate 25 0-21 by mouth ity of mg tablet 02:02: daily. [place] [address] Medical Branch omeprazole 2019- Yes 20mg Take 20 mg U nivers 20 mg 0-21 by mouth ity of capsule 02:02: daily. [place] [address] Medical Branch pravastatin 2019- Yes 20mg Take 20 mg Univers 20 mg 0-21 by mouth ity of tablet 02:02: at [place] [address] bedtime. Medical Branch triamcinolo 2019- Yes .1% Apply 0.1 U nivers ne 0-21 % to ity of acetonide/l 02:02: area(s) 2 [place] .s.b. 34 (two) Medical (ARISTOCORT times Branch A TOPICAL) daily. gabapentin 2019- Yes 300mg Take 300 Un sushant 300 mg 0-21 mg by ity of capsule 02:02: mouth 2 [place] [address] (two) Medical times Branch daily. levothyroxi 2020- Yes 100ug Take 100 U nivers ne 100 mcg 0-21 mcg by ity of tablet 02:02: mouth [place] [address] daily. Medical Branch meloxicam 2019- Yes 7.5mg Take 7.5 Uni vers 7.5 mg 0-21 mg by ity of tablet 02:02: mouth [place] [address] daily. Medical Branch metoprolol 2019- Yes 25mg Take 25 mg U nivers tartrate 25 0-21 by mouth ity of mg tablet 02:02: daily. [place] [address] Medical Branch omeprazole 2019- Yes 20mg Take 20 mg U nivers 20 mg 0-21 by mouth ity of capsule 02:02: daily. [place] [address] Medical Branch pravastatin 2019- Yes 20mg Take 20 mg Univers 20 mg 0-21 by mouth ity of tablet 02:02: at [place] [address] bedtime. Medical Branch triamcinolo 2019- Yes .1% Apply 0.1 U nivers ne 0-21 % to ity of acetonide/l 02:02: area(s) 2 [place] .s.b. 34 (two) Medical (ARISTOCORT times Branch A TOPICAL) daily. gabapentin 2019- Yes 300mg Take 300 Un sushant 300 mg 0-21 mg by ity of capsule 02:02: mouth 2 [place] [address] (two) Medical times [place] daily. levothyroxi 2019- Yes 100ug Take 100 U nivers ne 100 mcg 0-21 mcg by ity of tablet 02:02: mouth [place] [address] daily. Medical Branch meloxicam 2019- Yes 7.5mg Take 7.5 Uni vers 7.5 mg 0-21 mg by ity of tablet 02:02: mouth [place] [address] daily. Medical Branch metoprolol 2019- Yes 25mg Take 25 mg U nivers tartrate 25 0-21 by mouth ity of mg tablet 02:02: daily. [place] [address] Medical Branch omeprazole 2019- Yes 20mg Take 20 mg U nivers 20 mg 0-21 by mouth ity of capsule 02:02: daily. [place] [address] Medical Branch pravastatin 2019- Yes 20mg Take 20 mg Univers 20 mg 0-21 by mouth ity of tablet 02:02: at [place] [address] bedtime. Medical Branch triamcinolo 2019- Yes .1% Apply 0.1 U nivers ne 0-21 % to ity of acetonide/l 02:02: area(s) 2 [place] .s.[place]. 34 (two) Medical (ARISTOCORT times Branch A TOPICAL) daily. gabapentin 2019- Yes 300mg Take 300 Un sushant 300 mg 0-21 mg by ity of capsule 02:02: mouth 2 [place] [address] (two) Medical times Branch daily. levothyroxi 2019 Yes 100ug Take 100 U nivers ne 100 mcg 0-21 mcg by ity of tablet 02:02: mouth [place] [address] daily. Medical Branch meloxicam 2019-06 Yes 7.5mg Take 7.5 Uni vers 7.5 mg 0-21 mg by ity of tablet 02:02: mouth [place] [address] daily. Medical Branch metoprolol 2019-06 Yes 25mg Take 25 mg U nivers tartrate 25 0-21 by mouth ity of mg tablet 02:02: daily. [place] [address] Medical Branch omeprazole 2019-06 Yes 20mg Take 20 mg U nivers 20 mg 0-21 by mouth ity of capsule 02:02: daily. [place] [address] Medical Branch pravastatin 2019-06 Yes 20mg Take 20 mg Univers 20 mg 0-21 by mouth ity of tablet 02:02: at [place] [address] bedtime. Medical Branch triamcinolo 2019-06 Yes .1% Apply 0.1 U nivers ne 0-21 % to ity of acetonide/l 02:02: area(s) 2 [place] .s.b. 34 (two) Medical (ARISTOCORT times Branch A TOPICAL) daily. acetaminoph 2019-06- No [id number] 650mg Take 2 Univers en 325 mg 0-20 10-21 tablets by ity of tablet 00:00: 04:59 mouth [place] 00 :00 every 6 Medical (six) Branch hours as needed for Alternate with ibuprofen for pain scale 4-6. ibuprofen 2019-06- No [id number] 600mg Take 3 Univers 200 mg 0-20 10-21 tablets by ity of tablet 00:00: 04:59 mouth [place] 00 :00 every 6 Medical (six) Branch hours as needed (Alternate with acetaminop hen for pain). acetaminoph 2019-06- No [id number] 650mg Take 2 Univers en 325 mg 0-20 10-21 tablets by ity of tablet 00:00: 04:59 mouth [place] 00 :00 every 6 Medical (six) Branch hours as needed for Alternate with ibuprofen for pain scale 4-6. ibuprofen 2019-06- No [id number] 600mg Take 3 Univers 200 mg 0-20 10-21 tablets by ity of tablet 00:00: 04:59 mouth [place] 00 :00 every 6 Medical (six) Branch hours as needed (Alternate with acetaminop hen for pain). acetaminoph 2019-06- No [id number] 650mg Take 2 Univers en 325 mg 0-20 10-21 tablets by ity of tablet 00:00: 04:59 mouth [place] 00 :00 every 6 Medical (six) Branch hours as needed for Alternate with ibuprofen for pain scale 4-6. ibuprofen 2019-06- No [id number] 600mg Take 3 Univers 200 mg 0-20 10-21 tablets by ity of tablet 00:00: 04:59 mouth [place] 00 :00 every 6 Medical (six) Branch hours as needed (Alternate with acetaminop hen for pain). acetaminoph 2019-06- No [id number] 650mg Take 2 Univers en 325 mg 0-20 10-21 tablets by ity of tablet 00:00: 04:59 mouth [place] 00 :00 every 6 Medical (six) Branch hours as needed for Alternate with ibuprofen for pain scale 4-6. ibuprofen 2019-06- No [id number] 600mg Take 3 Univers 200 mg 0-20 10-21 tablets by ity of tablet 00:00: 04:59 mouth [place] 00 :00 every 6 Medical (six) Branch hours as needed (Alternate with acetaminop hen for pain). acetaminoph 2019-06- No [id number] 650mg Take 2 Univers en 325 mg 0-20 10-21 tablets by ity of tablet 00:00: 04:59 mouth [place] 00 :00 every 6 Medical (six) Branch hours as needed for Alternate with ibuprofen for pain scale 4-6. ibuprofen 2019-06- No [id number] 600mg Take 3 Univers 200 mg 0-20 10-21 tablets by ity of tablet 00:00: 04:59 mouth [place] 00 :00 every 6 Medical (six) Branch hours as needed (Alternate with acetaminop hen for pain). acetaminoph 2019-06- No [id number] 650mg Take 2 Univers en 325 mg 0-20 10-21 tablets by ity of tablet 00:00: 04:59 mouth [place] 00 :00 every 6 Medical (six) Branch hours as needed for Alternate with ibuprofen for pain scale 4-6. ibuprofen 2019-06- No [id number] 600mg Take 3 Univers 200 mg 0-20 10-21 tablets by ity of tablet 00:00: 04:59 mouth [place] 00 :00 every 6 Medical (six) Branch hours as needed (Alternate with acetaminop hen for pain). acetaminoph 2019-06- No [id number] 650mg Take 2 Univers en 325 mg 0-20 10-21 tablets by ity of tablet 00:00: 04:59 mouth [place] 00 :00 every 6 Medical (six) Branch hours as needed for Alternate with ibuprofen for pain scale 4-6. ibuprofen 2019-06- No [id number] 600mg Take 3 Univers 200 mg 0-20 10-21 tablets by ity of tablet 00:00: 04:59 mouth [place] 00 :00 every 6 Medical (six) Branch hours as needed (Alternate with acetaminop hen for pain). acetaminoph 2019-06 No [id number] 650mg Take 2 Univers en 325 mg 0-20 10-21 tablets by ity of tablet 00:00: 04:59 mouth [place] 00 :00 every 6 Medical (six) Branch hours as needed for Alternate with ibuprofen for pain scale 4-6. ibuprofen 2019-06- No [id number] 600mg Take 3 Univers 200 mg 0-20 10-21 tablets by ity of tablet 00:00: 04:59 mouth [place] 00 :00 every 6 Medical (six) Branch hours as needed (Alternate with acetaminop hen for pain). acetaminoph 2019-06- No [id number] 650mg Take 2 Univers en 325 mg 0-20 10-21 tablets by ity of tablet 00:00: 04:59 mouth [place] 00 :00 every 6 Medical (six) Branch hours as needed for Alternate with ibuprofen for pain scale 4-6. ibuprofen 2019-06- No [id number] 600mg Take 3 Univers 200 mg 0-20 10-21 tablets by ity of tablet 00:00: 04:59 mouth [place] 00 :00 every 6 Medical (six) Branch hours as needed (Alternate with acetaminop hen for pain). acetaminoph 2019-06- No [id number] 650mg Take 2 Univers en 325 mg 0-20 10-21 tablets by ity of tablet 00:00: 04:59 mouth [place] 00 :00 every 6 Medical (six) Branch hours as needed for Alternate with ibuprofen for pain scale 4-6. ibuprofen 2019-06- No [id number] 600mg Take 3 Univers 200 mg 0-20 10-21 tablets by ity of tablet 00:00: 04:59 mouth [place] 00 :00 every 6 Medical (six) Branch hours as needed (Alternate with acetaminop hen for pain). acetaminoph 2019-06- No [id number] 650mg Take 2 Univers en 325 mg 0-20 10-21 tablets by ity of tablet 00:00: 04:59 mouth [place] 00 :00 every 6 Medical (six) Branch hours as needed for Alternate with ibuprofen for pain scale 4-6. ibuprofen 2019-06- No [id number] 600mg Take 3 Univers 200 mg 0-20 10-21 tablets by ity of tablet 00:00: 04:59 mouth [place] 00 :00 every 6 Medical (six) Branch hours as needed (Alternate with acetaminop hen for pain). ibuprofen 2019-06- No [id number] 600mg Take 3 Univers 200 mg 0-20 10-21 tablets by ity of tablet 00:00: 04:59 mouth [place] 00 :00 every 6 Medical (six) Branch hours as needed (Alternate with acetaminop hen for pain). ibuprofen 2019-06- No [id number] 600mg Take 3 Univers 200 mg 0-20 10-21 tablets by ity of tablet 00:00: 04:59 mouth [place] 00 :00 every 6 Medical (six) Branch hours as needed (Alternate with acetaminop hen for pain). ibuprofen 2019-06- No [id number] 600mg Take 3 Univers 200 mg 0-20 10-21 tablets by ity of tablet 00:00: 04:59 mouth [place] 00 :00 every 6 Medical (six) Branch hours as needed (Alternate with acetaminop hen for pain). acetaminoph 2019-06- No [id number] 650mg Take 2 Univers en 325 mg 0-20 05-30 tablets by ity of tablet 00:00: 00:00 mouth [place] 00 :00 every 6 Medical (six) Branch hours as needed for Alternate with ibuprofen for pain scale 4-6. ALPRAZolam 2019-06 Yes .25mg 0.25 mg, Un sushant (XANAX) 0-19 Oral, BID, ity of tablet 0.25 01:00: First dose [place] mg 00 on [facility] 04/12/20 Branch at 2000, Until Discontinu ed, Routine ziprasidone 2019-06 2020- No 20mg 20 mg, Uni vers (GEODON) 0-18 10-25 Intramuscu ity of injection 18:20: 18:19 lar, [place] 20 mg 44 :44 Q6HPRN, Medical Starting Branch 04/12/20 at 1320, Until 04/19/20 at 1319, Routine, Agitation carBAMazepi 2019-06 Yes 200mg 200 mg, Un sushant ne 0-18 Oral, ity of (TEGRETOL) 03:00: Q12H, [place] tablet 200 00 First dose Med ical mg on Sat Branch 04/11/20 at 2200, Until Discontinu ed, Routine methocarbam 2019-06 Yes 500mg 500 mg, Un sushant oL 0-18 Oral, QID, ity of (ROBAXIN) 01:00: [place] tablet 500 00 on Sat Medical mg 04/11/20 Branch at 2000, Until Discontinu ed, Routine metoprolol 2019-06 Yes 25mg 25 mg, Unive rs tartrate 0-18 Oral, BID, ity o f (LOPRESSOR) 01:00: First dose [place] tablet 25 00 on Sat Medical mg 04/11/20 Branch at 2000, Until Discontinu ed, Routine HYDROcodone 2019-06 2020- No 1{tbl} 1 tablet, Univers -acetaminop 0-17 10-17 Oral, ity of hen (NORCO 23:22: 23:30 ONCE, 1 [place] 5) 5-325 mg 00 :00 dose, [facility] Med ical tablet 1 04/11/20 Branch tablet at 1830, Routine omeprazole 2019-06 Yes 20mg 20 mg, Unive rs (PRILOSEC) 0-17 Oral, ity of capsule 20 17:15: DAILY, [place] mg 00 First dose Medical on Sat Branch 04/11/20 at 1215, Until Discontinu ed, Routine levothyroxi 2019-06 Yes 100ug 100 mcg, U nivers ne 0-17 Oral, ity of (SYNTHROID) 17:15: QAM-0600, [place] tablet 100 00 First dose Med ical mcg on Sat Branch 04/11/20 at 1215, Until Discontinu ed, Routine D5W 0.45% 2019-06 2020- No IV Univers NaCl 0-17 - Infusion, ity of (1/2NS) 1 L 17:15: 13:57 at 125 [place]al as + KCL 20 00 :05 mL/hr, Medical mEq CONTINUOUS Branch , Starting 04/11/20 at 1215, Until 04/13/20 at 0857, Routine acetaminoph 2019-06 Yes 650mg 650 mg, Un sushant en 0- Oral, ity of (TYLENOL) 17:04: Q6HPRN, [place] tablet 650 27 Starting Medic al mg Sat Branch 04/11/20 at 1204, Until Discontinu ed, Routine, Pain (scale 1-3) docusate 2019-06 Yes 100mg 100 mg, Unive rs (COLACE) 0 Oral, ity of capsule 100 14:00: DAILY, [place] mg 00 First dose Medical on Sat Branch 04/11/20 at 0900, Until Discontinu ed, Routine iohexol 2019-06 2020- No 120mL 120 mL, Unive rs (OMNIPAQUE 004-11 Intravenou it y of 350 12:33: 12:35 s, ONCE, 1 [place] BULK-100 00 :00 dose, Sat Medica l mL) 04/11/20 Branch injection at 0745, 120 mL Routine lactated 2019-06 2020- No 1000mL at 999 Univ ers ringers IV 004-11 mL/hr, ity of infusion 12:00: 14:11 1,000 mL, Vishal as 1,000 mL 00 :00 IV Medical Infusion, Branch ONCE, 1 dose, 04/11/20 at 0700, STAT LORazepam 2019-06 2020- No 1mg 1 mg, Univer s (ATIVAN) 004-11 Oral, ity of tablet 1 mg 05:30: 04:28 ONCE, 1 [place] 00 :[place] dose, Sat Medical 04/11/20 Branch at 0030, RAJANI ketorolac 2019-06 2020- No 15mg 15 mg, Unive rs (TORADOL) 004-11 Slow IV ity of injection 03:45: 02:59 Push, [place] 15 mg 00 :00 ONCE, 1 Medical dose, Fri Branch 04/10/20 at 2245, Routine
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 clonazePAM 2019-06 Yes [id number] 1mg Take 1 U nivers (KLONOPIN) 0-17 tablet by ity of 1 mg tablet 00:00: mouth 3 [place] as 00 (three) Medical times Branch daily as needed (anxiety). clonazePAM 2019-06 Yes [id number] 1mg Take 1 U nivers (KLONOPIN) 0-17 tablet by ity of 1 mg tablet 00:00: mouth 3 [place] as 00 (three) Medical times Branch daily as needed (anxiety). clonazePAM 2019-06 Yes [id number] 1mg Take 1 U nivers (KLONOPIN) 0-17 tablet by ity of 1 mg tablet 00:00: mouth 3 [place] as 00 (three) Medical times Branch daily as needed (anxiety). clonazePAM 2019-06 Yes [id number] 1mg Take 1 U nivers (KLONOPIN) 0-17 tablet by ity of 1 mg tablet 00:00: mouth 3 V[place]al as 00 (three) Medical times Branch daily as needed (anxiety). clonazePAM 2019-06 Yes [id number] 1mg Take 1 U nivers (KLONOPIN) 0-17 tablet by ity of 1 mg tablet 00:00: mouth 3 [place] as 00 (three) Medical times Branch daily as needed (anxiety). clonazePAM 2019-06 Yes [id number] 1mg Take 1 U nivers (KLONOPIN) 0-17 tablet by ity of 1 mg tablet 00:00: mouth 3 [place] as 00 (three) Medical times Branch daily as needed (anxiety). clonazePAM 2019-06 Yes [id number] 1mg Take 1 U nivers (KLONOPIN) 0-17 tablet by ity of 1 mg tablet 00:00: mouth 3 [place] as 00 (three) Medical times Branch daily as needed (anxiety). clonazePAM 2019-06 Yes [id number] 1mg Take 1 U nivers (KLONOPIN) 0-17 tablet by ity of 1 mg tablet 00:00: mouth 3 [place] as 00 (three) Medical times Branch daily as needed (anxiety). ibuprofen 2020- No 800mg 800 mg, Uni vers (IBU) 1-18 01-18 Oral, ity of tablet 800 04:15: 03:07 ONCE, 1 [place] mg 00 :00 dose, Fri Medical 07/12/19 at Branch 2215, RAAJNI HYDROcodone 2020-0 2020- No 1{tbl} 1 tablet, Univers -acetaminop 07-13 Oral, ity of hen (NORCO 04:15: 03:07 ONCE, 1 [place] 5) 5-325 mg 00 :00 dose, Fri Med ical tablet 1 07/12/19 at [facility] tablet 2215, RAJANI ondansetron 2019-0 2020- No 4mg 4 mg, Slow Univers (ZOFRAN 07-13 IV Push, ity of (PF)) 03:30: 02:37 ONCE, 1 [place] injection 4 00 :00 dose, Fri Med ical mg 07/12/19 at [place] 2130, RAJANI morpHINE 2019-0 2020- No 4mg 4 mg, Slow Un sushant injection 4 07-13 IV Push, ity of mg 03:30: 02:37 ONCE, 1 [place] 00 :00 dose, Fri Medical 07/12/19 at Branch 2130, STAT iohexol 2019-0 2020- No 120mL 120 mL, Unive rs (OMNIPAQUE 07-13 Intravenou it y of 350 00:45: 00:45 s, ONCE, 1 [place] BULK-100 00 :00 dose, Fri Medica l mL) 07/12/19 at [place] injection 1900, 120 mL Routine NaCl 0.9% 0 2020- No 1000mL at 999 Uni vers (NS) bolus 07-12 mL/hr, ity of infusion 21:45: 03:05 1,000 mL, Vishal as 1,000 mL 00 :00 IV Medical Infusion, [place] ONCE, 1 dose, 07/12/19 at 1545, RAJANI HYDROcodone 2020-0 Yes [id number] 1{tbl} Take 1 Univers -acetaminop 1-17 tablet by ity of hen 5-325 00:00: mouth [place] mg tablet 00 every 6 Medical (six) Branch hours as needed for Pain (scale 1-3). HYDROcodone 2020-0 Yes [id number] 1{tbl} Take 1 Univers -acetaminop 1-17 tablet by ity of hen 5-325 00:00: mouth [place] mg tablet 00 every 6 Medical (six) Branch hours as needed for Pain (scale 1-3). HYDROcodone 2020-0 Yes [id number] 1{tbl} Take 1 Univers -acetaminop 1-17 tablet by ity of hen 5-325 00:00: mouth [place] mg tablet 00 every 6 Medical (six) Branch hours as needed for Pain (scale 1-3). HYDROcodone 2020-0 Yes [id number] 1{tbl} Take 1 Univers -acetaminop 1-17 tablet by ity of hen 5-325 00:00: mouth [place] mg tablet 00 every 6 Medical (six) Branch hours as needed for Pain (scale 1-3). HYDROcodone 2020-0 Yes [id number] 1{tbl} Take 1 Univers -acetaminop 1-17 tablet by ity of hen 5-325 00:00: mouth [place] mg tablet 00 every 6 Medical (six) Branch hours as needed for Pain (scale 1-3). HYDROcodone 2019-0 Yes [id number] 1{tbl} Take 1 Univers -acetaminop 1-17 tablet by ity of hen 5-325 00:00: mouth [place] mg tablet 00 every 6 Medical (six) Branch hours as needed for Pain (scale 1-3). HYDROcodone 2019-0 Yes [id number] 1{tbl} Take 1 Univers -acetaminop 1-17 tablet by ity of hen 5-325 00:00: mouth [place] mg tablet 00 every 6 Medical (six) Branch hours as needed for Pain (scale 1-3). HYDROcodone 2020-0 Yes [id number] 1{tbl} Take 1 Univers -acetaminop 1-17 tablet by ity of hen 5-325 00:00: mouth [place] mg tablet 00 every 6 Medical (six) Branch hours as needed for Pain (scale 1-3). HYDROcodone 2020-0 Yes [id number] 1{tbl} Take 1 Univers -acetaminop 1-17 tablet by ity of hen 5-325 00:00: mouth [place] mg tablet 00 every 6 Medical (six) Branch hours as needed for Pain (scale 1-3). HYDROcodone 2020-0 Yes [id number] 1{tbl} Take 1 Univers -acetaminop 1-17 tablet by ity of hen 5-325 00:00: mouth [place] mg tablet 00 every 6 Medical (six) Branch hours as needed for Pain (scale 1-3). HYDROcodone 2019-0 Yes [id number] 1{tbl} Take 1 Univers -acetaminop 1-17 tablet by ity of hen 5-325 00:00: mouth [place] mg tablet 00 every 6 Medical (six) Branch hours as needed for Pain (scale 1-3). HYDROcodone 2019- Yes [id number] 1{tbl} Take 1 Univers -acetaminop 1-17 tablet by ity of hen 5-325 00:00: mouth [place] mg tablet 00 every 6 Medical (six) Branch hours as needed for Pain (scale 1-3). HYDROcodone 2019- Yes [id number] 1{tbl} Take 1 Univers -acetaminop 1-17 tablet by ity of hen 5-325 00:00: mouth [place] mg tablet 00 every 6 Medical (six) Branch hours as needed for Pain (scale 1-3). levothyroxi Yes 100ug Take 100 U nivers ne 100 mcg 7-13 mcg by ity of tablet 06:37: mouth [place] 32 daily. Medical Branch meloxicam Yes 7.5mg Take 7.5 Uni vers 7.5 mg 7-13 mg by ity of tablet 06:37: mouth [place] [address] daily. Medical Branch metoprolol Yes 25mg Take 25 mg U nivers tartrate 25 7-13 by mouth ity of mg tablet 06:37: daily. [place] [address] Medical Branch omeprazole Yes 20mg Take 20 mg U nivers 20 mg 7-13 by mouth ity of capsule 06:37: daily. [place] [address] Medical Branch pravastatin Yes 20mg Take 20 mg Univers 20 mg 7-13 by mouth ity of tablet 06:37: at [place] [address] bedtime. Medical Branch triamcinolo Yes .1% Apply 0.1 U nivers ne 7-13 % to ity of acetonide/l 06:37: area(s) 2 [place] .s.b. 32 (two) Medical (ARISTOCORT times Branch A TOPICAL) daily. levothyroxi Yes 100ug Take 100 U nivers ne 100 mcg 7-13 mcg by ity of tablet 06:37: mouth [place] daily. Medical Branch meloxicam 2019-0 Yes 7.5mg Take 7.5 Uni vers 7.5 mg 7-13 mg by ity of tablet 06:37: mouth [place] 32 daily. Medical Branch metoprolol 2019-0 Yes 25mg Take 25 mg U nivers tartrate 25 7-13 by mouth ity of mg tablet 06:37: daily. [place] [address] Medical Branch omeprazole 2019-0 Yes 20mg Take 20 mg U nivers 20 mg 7-13 by mouth ity of capsule 06:37: daily. [place] [address] Medical Branch pravastatin 2019-0 Yes 20mg Take 20 mg Univers 20 mg 7-13 by mouth ity of tablet 06:37: at [place] [address] bedtime. Medical Branch triamcinolo Yes .1% Apply 0.1 U nivers ne 7-13 % to ity of acetonide/l 06:37: area(s) 2 [place] .s.b. 32 (two) Medical (ARISTOCORT times Branch A TOPICAL) daily. levothyroxi 2019-0 Yes 100ug Take 100 U nivers ne 100 mcg 7-13 mcg by ity of tablet 06:37: mouth [place] [address] daily. Medical Branch meloxicam 2019-0 Yes 7.5mg Take 7.5 Uni vers 7.5 mg 7-13 mg by ity of tablet 06:37: mouth [place] [address] daily. Medical Branch metoprolol 0 Yes 25mg Take 25 mg U nivers tartrate 25 7-13 by mouth ity of mg tablet 06:37: daily. [place] [address] Medical Branch omeprazole 2018-0 Yes 20mg Take 20 mg U nivers 20 mg 7-13 by mouth ity of capsule 06:37: daily. [place] [address] Medical Branch pravastatin 2019-0 Yes 20mg Take 20 mg Univers 20 mg 7-13 by mouth ity of tablet 06:37: at [place] [address] bedtime. Medical Branch triamcinolo 0 Yes .1% Apply 0.1 U nivers ne 7-13 % to ity of acetonide/l 06:37: area(s) 2 [place] .s.b. 32 (two) Medical (ARISTOCORT times Branch A TOPICAL) daily. levothyroxi 2019-0 Yes 100ug Take 100 U nivers ne 100 mcg 7-13 mcg by ity of tablet 06:37: mouth [place] 32 daily. Medical Branch meloxicam 2019-0 Yes 7.5mg Take 7.5 Uni vers 7.5 mg 7-13 mg by ity of tablet 06:37: mouth [place] 32 daily. Medical Branch metoprolol 2019-0 Yes 25mg Take 25 mg U nivers tartrate 25 7-13 by mouth ity of mg tablet 06:37: daily. [place] [address] Medical Branch omeprazole 2019-0 Yes 20mg Take 20 mg U nivers 20 mg 7-13 by mouth ity of capsule 06:37: daily. [place] [address] Medical Branch pravastatin 2019-0 Yes 20mg Take 20 mg Univers 20 mg 7-13 by mouth ity of tablet 06:37: at [place] [address] bedtime. Medical Branch triamcinolo Yes .1% Apply 0.1 U nivers ne 7-13 % to ity of acetonide/l 06:37: area(s) 2 [place] .s.b. 32 (two) Medical (ARISTOCORT times Branch A TOPICAL) daily. levothyroxi 2019-0 Yes 100ug Take 100 U nivers ne 100 mcg 7-13 mcg by ity of tablet 06:37: mouth [place] [address] daily. Medical Branch meloxicam 2019-0 Yes 7.5mg Take 7.5 Uni vers 7.5 mg 7-13 mg by ity of tablet 06:37: mouth [place] 32 daily. Medical Branch metoprolol 2019-0 Yes 25mg Take 25 mg U nivers tartrate 25 7-13 by mouth ity of mg tablet 06:37: daily. [place] [address] Medical Branch omeprazole 2019-0 Yes 20mg Take 20 mg U nivers 20 mg 7-13 by mouth ity of capsule 06:37: daily. [place] [address] Medical Branch pravastatin 2019-0 Yes 20mg Take 20 mg Univers 20 mg 7-13 by mouth ity of tablet 06:37: at [place] [address] bedtime. Medical Branch triamcinolo 0 Yes .1% Apply 0.1 U nivers ne 7-13 % to ity of acetonide/l 06:37: area(s) 2 [place] .s.b. 32 (two) Medical (ARISTOCORT times Branch A TOPICAL) daily. levothyroxi 2019-0 Yes 100ug Take 100 U nivers ne 100 mcg 7-13 mcg by ity of tablet 06:37: mouth [place] [address] daily. Medical Branch meloxicam 2019-0 Yes 7.5mg Take 7.5 Uni vers 7.5 mg 7-13 mg by ity of tablet 06:37: mouth [place] [address] daily. Medical Branch metoprolol 2019-0 Yes 25mg Take 25 mg U nivers tartrate 25 7-13 by mouth ity of mg tablet 06:37: daily. [address] Branch omeprazole 2019-0 Yes 20mg Take 20 mg U nivers 20 mg 7-13 by mouth ity of capsule 06:37: daily. [address] Branch pravastatin 2019-0 Yes 20mg Take 20 mg Univers 20 mg 7-13 by mouth ity of tablet 06:37: at [place] [address] bedtime. Medical Branch triamcinolo 2019-0 Yes .1% Apply 0.1 U nivers ne 7-13 % to ity of acetonide/l 06:37: area(s) 2 [place]s.b. (two) Medical (ARISTOCORT times Branch A TOPICAL) daily. gabapentin 2019-0 Yes 300mg Take 300 Un sushant 300 mg 7-13 mg by ity of capsule 06:27: mouth 2 [place] [address] (two) Medical times Branch daily. gabapentin 2019-0 Yes 300mg Take 300 Un sushant 300 mg 7-13 mg by ity of capsule 06:27: mouth 2 [place] [address] (two) Medical times Branch daily. gabapentin 2019-0 Yes 300mg Take 300 Un sushant 300 mg 7-13 mg by ity of capsule 06:27: mouth 2 [place] [address] (two) Medical times Branch daily. gabapentin 2019-0 Yes 300mg Take 300 Un sushant 300 mg 7-13 mg by ity of capsule 06:27: mouth 2 [place] [address] (two) Medical times Branch daily. gabapentin 2019-0 Yes 300mg Take 300 Un sushant 300 mg 7-13 mg by ity of capsule 06:27: mouth 2 [place] [address] (two) Medical times Branch daily. gabapentin 2019-0 Yes 300mg Take 300 Un sushant 300 mg 7-13 mg by ity of capsule 06:27: mouth 2 [place] [address] (two) Medical times Branch daily. Vital Signs Vital Name Observation Time Observation Value Comments Source Systolic blood 2021-03-25 15:30:00 153 mm[Hg] Univer sity of pressure [place] [facility] Diastolic blood 2021-03-25 15:30:00 96 mm[Hg] Unive rsity of pressure [place] [facility] Heart rate 2021-03-25 15:30:00 100 /min [facility]i ty of [place] [facility] Respiratory rate 2021-03-25 15:30:00 20 /min Univ ersity of [place] [facility] Oxygen saturation in 2021-03-25 15:30:00 97 /min University of Arterial blood by [facility] Pulse oximetry Branch Body temperature 2021-03-25 08:55:00 36.39 Yamila Univ ersity of [place] [facility] Body weight 2021-03-25 08:55:00 81.194 kg [facility] [place] [facility] BMI 2021-03-25 08:55:00 28.89 kg/m2 [facility] [place] [facility] Systolic blood 2020-11-23 17:24:00 104 mm[Hg] Univer sity of pressure [place] [facility] Diastolic blood 2020-11-23 17:24:00 68 mm[Hg] Unive rsity of pressure [place] [facility] Heart rate 2020-11-23 17:24:00 91 /min [facility] [place] [facility] Respiratory rate 2020-11-23 17:24:00 18 /min Univ ersity of [place] [facility] Oxygen saturation in 2020-11-23 17:24:00 97 /min University of Arterial blood by [facility] Pulse oximetry Branch Body temperature 2020-11-23 12:24:00 36.94 Yamila Univ ersity of [place] [facility] Body weight 2020-11-23 09:53:00 81.194 kg [facility] [place] [facility] BMI 2020-11-23 09:53:00 28.89 kg/m2 [facility] [place] [facility] Body height 2020-11-22 21:41:00 167.6 cm [facility] [place] [facility] Systolic blood 2020-11-23 17:24:00 104 mm[Hg] Univer sity of pressure [place] [facility] Diastolic blood 2020-11-23 17:24:00 68 mm[Hg] Unive rsity of pressure [place] [facility] Heart rate 2020-11-23 17:24:00 91 /min [facility] [place] [facility] Respiratory rate 2020-11-23 17:24:00 18 /min Univ ersity of [place] [facility] Oxygen saturation in 2020-11-23 17:24:00 97 /min University of Arterial blood by [place] [facility] Pulse oximetry Branch Body temperature 2020-11-23 12:24:00 36.94 Yamila Univ ersity of [place] [facility] Body weight 2020-11-23 09:53:00 81.194 kg [facility] [place] [facility] BMI 2020-11-23 09:53:00 28.89 kg/m2 [facility] [place] [facility] Body height 2020-11-22 21:41:00 167.6 cm [facility] [place] [facility] Systolic blood 2020-10-22 10:00:00 149 mm[Hg] Univer sity of pressure [place] [facility] Diastolic blood 2020-10-22 10:00:00 92 mm[Hg] Unive rsity of pressure [place] [facility] Heart rate 2020-10-22 10:00:00 89 /min [facility] [place] [facility] Body temperature 2020-10-22 10:00:00 36.78 Yamila [facility] ersity of [place] [facility] Respiratory rate 2020-10-22 10:00:00 16 /min Univ ersity of [place] [facility] Oxygen saturation in 2020-10-22 10:00:00 97 /min University of Arterial blood by [facility] Pulse oximetry Branch Body weight 2020-10-22 07:03:00 72.576 kg [facility] [place] [facility] BMI 2020-10-22 07:03:00 25.82 kg/m2 [facility] [place] [facility] Systolic blood 2020-10-22 10:00:00 149 mm[Hg] Univer sity of pressure [place] [facility] Diastolic blood 2020-10-22 10:00:00 92 mm[Hg] Unive rsity of pressure [place] [facility] Heart rate 2020-10-22 10:00:00 89 /min [facility] [place] [facility] Body temperature 2020-10-22 10:00:00 36.78 Yamila [facility] ersity of [place] [facility] Respiratory rate 2020-10-22 10:00:00 16 /min Univ ersity of [place] [facility] Oxygen saturation in 2020-10-22 10:00:00 97 /min [facility] of Arterial blood by [place] [facility]ve Pulse oximetry Branch Body weight 2020-10-22 07:03:00 72.576 kg [facility] [place] [facility] BMI 2020-10-22 07:03:00 25.82 kg/m2 [facility] [place] [facility] Systolic blood 2020-10-20 04:55:00 181 mm[Hg] Univer sity of pressure [place] [facility] Diastolic blood 2020-10-20 04:55:00 109 mm[Hg] Unive rsity of pressure [place] [facility] Heart rate 2020-10-20 04:55:00 126 /min [facility] [place] [facility] Body temperature 2020-10-20 04:55:00 36.72 Yamila Univ ersity of [place] [facility] Respiratory rate 2020-10-20 04:55:00 17 /min Univ ersity [facility] [place] [facility] Body weight 2020-10-20 04:55:00 72.598 kg [facility] [place] [facility] BMI 2020-10-20 04:55:00 25.83 kg/m2 [facility] [place] [facility] Oxygen saturation in 2020-10-20 04:55:00 97 /min University of Arterial blood by [facility] Pulse oximetry Branch Systolic blood 2020-10-20 04:55:00 181 mm[Hg] Univer sity of pressure [place] [facility] Diastolic blood 2020-10-20 04:55:00 109 mm[Hg] Unive rsity of pressure [place] [facility] Heart rate 2020-10-20 04:55:00 126 /min [facility] [place] [facility] Body temperature 2020-10-20 04:55:00 36.72 Yamila Univ ersity of [place] [facility] Respiratory rate 2020-10-20 04:55:00 17 /min Univ ersity of [place] [facility] Body weight 2020-10-20 04:55:00 72.598 kg [facility] [place] [facility] BMI 2020-10-20 04:55:00 25.83 kg/m2 [facility] [place] [facility] Oxygen saturation in 2020-10-20 04:55:00 97 /min [facility] of Arterial blood by [facility] Pulse oximetry Branch Systolic blood 2020-10-15 20:07:00 124 mm[Hg] Univer sity of pressure [place] [facility] Diastolic blood 2020-10-15 20:07:00 72 mm[Hg] Unive rsity of pressure [place] [facility] Heart rate 2020-10-15 20:07:00 97 /min [facility] [place] [facility] Body temperature 2020-10-15 20:07:00 36.83 Yamila [facility] ersity [facility] [place] [facility] Respiratory rate 2020-10-15 20:07:00 17 /min Univ ersity of [place] [facility] Oxygen saturation in 2020-10-15 20:07:00 96 /min [facility] of Arterial blood by [place] [facility] steve Pulse oximetry Branch Body weight 2020-10-15 12:34:00 68.04 kg [facility]i [facility] [place] [facility] BMI 2020-10-15 12:34:00 24.21 kg/m2 [facility] [place] [facility] Systolic blood 2020-10-15 20:07:00 124 mm[Hg] Univer sity of pressure [place] [facility] Diastolic blood 2020-10-15 20:07:00 72 mm[Hg] Unive rsity of pressure [place] [facility] Heart rate 2020-10-15 20:07:00 97 /min [facility] [place] [facility] Body temperature 2020-10-15 20:07:00 36.83 Yamila [facility] [place] [facility] Respiratory rate 2020-10-15 20:07:00 17 /min Univ ersity [facility] [place] [facility] Oxygen saturation in 2020-10-15 20:07:00 96 /min [facility] of Arterial blood by [place] [facility] steve Pulse oximetry Branch Body weight 2020-10-15 12:34:00 68.04 kg [facility] [place] [facility] BMI 2020-10-15 12:34:00 24.21 kg/m2 [facility] [place] [facility] Systolic blood 2020-10-13 15:00:00 145 mm[Hg] Univer sity of pressure [place] [facility] Diastolic blood 2020-10-13 15:00:00 102 mm[Hg] Unive rsity of pressure [place] [facility] Heart rate 2020-10-13 15:00:00 115 /min [facility] [place] [facility] Respiratory rate 2020-10-13 15:00:00 22 /min [facility] ersity [facility] [place] [facility] Oxygen saturation in 2020-10-13 15:00:00 100 /min [facility] of Arterial blood by [place] [facility] steve Pulse oximetry Branch Body temperature 2020-10-13 09:40:00 37 Yamila [facility] [place] [facility] Body weight 2020-10-13 09:40:00 68.04 kg [facility] [place] [facility] BMI 2020-10-13 09:40:00 24.21 kg/m2 [facility] [place] [facility] Systolic blood 2020-10-13 15:00:00 145 mm[Hg] Univer sity of pressure [place] [facility] Diastolic blood 2020-10-13 15:00:00 102 mm[Hg] Unive rsity of pressure [place] [facility] Heart rate 2020-10-13 15:00:00 115 /min [facility] [place] [facility] Respiratory rate 2020-10-13 15:00:00 22 /min [facility] ers[facility] [place] [facility] Oxygen saturation in 2020-10-13 15:00:00 100 /min [facility] of Arterial blood by [place] [facility] steve Pulse oximetry Branch Body temperature 2020-10-13 09:40:00 37 Yamila [facility] [place] [facility] Body weight 2020-10-13 09:40:00 68.04 kg [facility] [place] [facility] BMI 2020-10-13 09:40:00 24.21 kg/m2 [facility] [place] [facility] Systolic blood 2020-09-17 03:41:00 147 mm[Hg] Univer sity of pressure [place] [facility] Diastolic blood 2020-09-17 03:41:00 98 mm[Hg] Unive rsity of pressure [place] [facility] Heart rate 2020-09-17 03:41:00 92 /min [facility] [place] [facility] Respiratory rate 2020-09-17 03:41:00 22 /min Univ ersity [facility] [place] [facility] Oxygen saturation in 2020-09-17 03:41:00 100 /min [facility] of Arterial blood by [place] [facility] steve Pulse oximetry Branch Body temperature 2020-09-17 02:45:00 37.17 Yamila [facility] [place] [facility] Body height 2020-09-17 02:45:00 167.6 cm [facility] [place] [facility] Body weight 2020-09-17 02:45:00 65.772 kg [facility] [place] [facility] BMI 2020-09-17 02:45:00 23.40 kg/m2 [facility] [place] [facility] Systolic blood 2020-09-17 03:41:00 147 mm[Hg] Univer sity of pressure [place] [facility] Diastolic blood 2020-09-17 03:41:00 98 mm[Hg] Unive rsity of pressure [place] [facility] Heart rate 2020-09-17 03:41:00 92 /min [facility] [place] [facility] Respiratory rate 2020-09-17 03:41:00 22 /min [facility] [place] [facility] Oxygen saturation in 2020-09-17 03:41:00 100 /min [facility] of Arterial blood by [place] Medi steve Pulse oximetry Branch Body temperature 2020-09-17 02:45:00 37.17 Yamila [facility] [place] [facility] Body height 2020-09-17 02:45:00 167.6 cm [facility] [place] [facility] Body weight 2020-09-17 02:45:00 65.772 kg [facility] [place] [facility] BMI 2020-09-17 02:45:00 23.40 kg/m2 [facility] [place] [facility] Systolic blood 2020-09-06 11:02:00 146 mm[Hg] Univer sity of pressure [place] [facility] Diastolic blood 2020-09-06 11:02:00 93 mm[Hg] Unive rsity of pressure [place] [facility] Heart rate 2020-09-06 11:02:00 97 /min [facility] [place] [facility] Respiratory rate 2020-09-06 11:02:00 21 /min [facility] [place] [facility] Oxygen saturation in 2020-09-06 11:02:00 99 /min [facility] of Arterial blood by [facility] steve Pulse oximetry Branch Body temperature 2020-09-06 10:31:00 36.17 Yamila [facility] [place] [facility] Body height 2020-09-06 09:39:00 167.6 cm [facility] [place] [facility] Body weight 2020-09-06 09:39:00 68.04 kg [facility] [place] [facility] BMI 2020-09-06 09:39:00 24.21 kg/m2 [facility] [place] [facility] Systolic blood 2020-09-06 11:02:00 146 mm[Hg] Univer sity of pressure [place] [facility] Diastolic blood 2020-09-06 11:02:00 93 mm[Hg] Unive rsity of pressure [place] [facility] Heart rate 2020-09-06 11:02:00 97 /min [facility] [place] [facility] Respiratory rate 2020-09-06 11:02:00 21 /min [facility] [place] [facility] Oxygen saturation in 2020-09-06 11:02:00 99 /min [facility] of Arterial blood by [place] [facility] Pulse oximetry [place] Body temperature 2020-09-06 10:31:00 36.17 Yamila [facility] [place] [facility] Body height 2020-09-06 09:39:00 167.6 cm [facility] [place] [facility] Body weight 2020-09-06 09:39:00 68.04 kg [facility]i ty of [place] [facility] BMI 2020-09-06 09:39:00 24.21 kg/m2 [facility] [place] [facility] Systolic blood 2020-09-02 03:00:00 171 mm[Hg] [facility] [place] [facility] Diastolic blood 2020-09-02 03:00:00 102 mm[Hg] [facility] [place] [facility] Heart rate 2020-09-02 03:00:00 100 /min [facility] [place] [facility] Body temperature 2020-09-02 03:00:00 36 Yamila [facility] [place] [facility] Respiratory rate 2020-09-02 03:00:00 17 /min [facility] [place] [facility] Oxygen saturation in 2020-09-02 03:00:00 98 /min [facility] Arterial blood by [place] [facility] Pulse oximetry [place] Body weight 2020-09-01 23:02:00 65.772 kg [facility] [place] [facility] BMI 2020-09-01 23:02:00 23.40 kg/m2 [facility] [place] [facility] Systolic blood 2020-09-02 03:00:00 171 mm[Hg] [facility] [place] [facility] Diastolic blood 2020-09-02 03:00:00 102 mm[Hg] [facility] [place] [facility] Heart rate 2020-09-02 03:00:00 100 /min [facility] [place] [facility] Body temperature 2020-09-02 03:00:00 36 Yamila [facility] [place] [facility] Respiratory rate 2020-09-02 03:00:00 17 /min [facility] [place] [facility] Oxygen saturation in 2020-09-02 03:00:00 98 /min [facility] blood by [place] [facility] Pulse oximetry [facility] Body weight 2020-09-01 23:02:00 65.772 kg [facility] [place] [facility] BMI 2020-09-01 23:02:00 23.40 kg/m2 [facility] [place] [facility] Systolic blood 2020-04-14 13:08:00 143 mm[Hg] [facility] [place] [facility] Diastolic blood 2020-04-14 13:08:00 90 mm[Hg] [facility] [place] [facility] Heart rate 2020-04-14 13:08:00 84 /min [facility] [place] [facility] Body temperature 2020-04-14 13:08:00 36.28 Yamila [facility] [place] [facility] Respiratory rate 2020-04-14 13:08:00 16 /min [facility] [place] [facility] Oxygen saturation in 2020-04-14 13:08:00 99 /min [facility] Arterial blood by [facility] Pulse oximetry Branch Body weight 2020-04-11 11:56:00 63.504 kg [facility] [place] [facility] BMI 2020-04-11 11:56:00 22.60 kg/m2 [facility] [place] [facility] Body height 2020-04-11 11:55:00 167.6 cm [facility] [place] [facility] Systolic blood 2020-04-11 05:30:00 148 mm[Hg] [facility] [place] [facility] Diastolic blood 2020-04-11 05:30:00 88 mm[Hg] [facility] [place] [facility] Heart rate 2020-04-11 05:30:00 89 /min [facility] [place] [facility] Respiratory rate 2020-04-11 05:30:00 26 /min [facility] [place] [facility] Oxygen saturation in 2020-04-11 05:30:00 100 /min [facility] Arterial blood by [facility] Pulse oximetry Branch Body temperature 2020-04-11 04:03:00 37.17 Yamila [facility] [place] [facility] Body weight 2020-04-11 04:03:00 63.504 kg [facility] [place] [facility] BMI 2020-04-11 04:03:00 22.60 kg/m2 [facility] [place] [facility] Systolic blood 2020-04-11 02:59:52 126 mm[Hg] [facility] [place] [facility] Diastolic blood 2020-04-11 02:59:52 94 mm[Hg] [facility] [place] [facility] Heart rate 2020-04-11 02:59:52 104 /min [facility] [place] [facility] Body temperature 2020-04-11 02:59:52 36.56 Yamila [facility] [place] [facility] Respiratory rate 2020-04-11 02:59:52 19 /min [facility] [place] [facility] Oxygen saturation in 2020-04-11 02:59:52 98 /min [facility] blood by [place] [facility] Pulse oximetry Branch Body weight 2020-04-11 01:37:00 63.504 kg [facility] [place] [facility] BMI 2020-04-11 01:37:00 22.60 kg/m2 [facility] [place] [facility] Systolic blood 2020-04-10 04:53:11 150 mm[Hg] [facility] [place] [facility] Diastolic blood 2020-04-10 04:53:11 101 mm[Hg] [facility] [place] [facility] Heart rate 2020-04-10 04:53:11 121 /min [facility] [place] [facility] Respiratory rate 2020-04-10 04:53:11 16 /min [facility] [place] [facility] Oxygen saturation in 2020-04-10 04:53:11 99 /min [facility] [place] [facility] Pulse oximetry Branch Body temperature 2020-04-10 04:00:00 36.44 Yamila [facility] [place] [facility] Body weight 2020-04-10 04:00:00 68.04 kg [facility] [place] [facility] BMI 2020-04-10 04:00:00 24.21 kg/m2 [facility] [place] [facility] Systolic blood 2020-02-25 18:30:00 164 mm[Hg] [facility] [place] [facility] Diastolic blood 2020-02-25 18:30:00 112 mm[Hg] [facility] [place] [facility] Heart rate 2020-02-25 18:30:00 107 /min [facility] [place] [facility] Respiratory rate 2020-02-25 18:30:00 23 /min [facility] [place] [facility] Oxygen saturation in 2020-02-25 18:30:00 98 /min [facility] blood by [place] [facility] Pulse oximetry Branch Body temperature 2020-02-25 18:20:00 36.89 Yamila [facility] [place] [facility] Body height 2020-02-25 18:20:00 167.6 cm [facility] Body weight 2020-02-25 18:20:00 68.04 kg [facility] BMI 2020-02-25 18:20:00 24.21 kg/m2 [facility] Systolic blood 2019-07-13 03:12:00 125 mm[Hg] [facility]iver [facility]ity [facility] pressure [facility] Diastolic blood 2019-07-13 03:12:00 81 mm[facility]Hg] [facility] 2019-07-13 03:12:00 75 /min [facility] Body temperature 2019-07-13 03:12:00 36.72 Yamila [facility] Res[facility] rate 2019-07-13 03:12:00 18 /min [facility] Oxygen saturation in 2019-07-13 03:12:00 99 /min [facility] Arterial blood by [facility] Pulse oximetry [place] Body weight 2019-07-12 21:01:00 72.576 kg [facility] BMI 2019-07-12 21:01:00 25.82 kg/m2 [facility] Procedures Procedure Date / Time Performing Clinician Source Performed CT CHEST PULMONARY 2021-03-25 11:45:06 Arnold Coughlin [facility] ANGIOGRAM [facility] TROPONIN I 2021-03-25 11:31:00 Arnold Coughlin [facility] D-DIMER 2021-03-25 10:22:00 Arnold Coughlin [facility] LIPASE 2021-03-25 09:35:00 Arnold Coughlin [facility] TROPONIN I 2021-03-25 09:35:00 Arnold Coughlin [facility] COMP. METABOLIC PANEL 2021-03-25 09:35:00 Arnold Coughlin [facility] ([id number]) [facility] CBC WITH DIFF 2021-03-25 09:35:00 Arnold Coughlin [facility] HB ECG ROUTINE & RHYTHM 2021-03-25 08:52:04 Arnold Coughlin [facility] ACTIVATED PARTIAL 2020-11-23 10:36:00 [facility] MAGNESIUM 2020-11-23 05:05:00 [facility] BASIC METABOLIC PANEL 2020-11-23 05:05:00 [facility] (NA, K, CL, CO2, Medical Branch GLUCOSE, BUN, CREATININE, CA) CBC WITH DIFF 2020-11-23 05:05:00 [facility] ACTIVATED PARTIAL 2020-11-23 05:05:00 [facility] CT ANGIOGRAM CHEST 2020-11-22 20:21:07 [facility] POCT TEST 2020-11-22 19:43:00 Rosmery Mai [facility] TROPONIN I 2020-11-22 19:38:00 [facility] FREE T4 2020-11-22 19:38:00 [facility] THYROID STIMULATING 2020-11-22 19:38:00 [facility] HORMONE [facility] LIPID PANEL 2020-11-22 19:38:00 [facility] ([id number])(TOTAL Medical [place] CHOLESTEROL, TRIGLYCERIDES, HDL) COVID-19 (ID NOW RAPID 2020-11-22 19:18:00 Carmen Lott [facility] TESTING) Medical Branch TROPONIN I 2020-11-22 14:45:00 Rosmery Mai [facility] XR CHEST 1 VW 2020-11-22 12:41:09 Miguelito Salter [facility] URINE DRUG (IMMUNOASSAY) 2020-11-22 11:53:00 Miguel[facility] DRUG Medical [facility] SCREEN URINALYSIS 2020-11-22 11:53:00 Miguelito Salter [facility] CK (CREATINE KINASE) + 2020-11-22 11:52:00 Miguelito Salter [facility] Branch LIPASE 2020-11-22 11:52:00 Miguelito Salter [facility] TROPONIN I 2020-11-22 11:52:00 Miguelito Salter [facility] COMP. METABOLIC PANEL 2020-11-22 11:52:00 Miguelito Salter [facility] ([id number]) Medical Branch ETHANOL 2020-11-22 11:52:00 Miguelito Salter [facility] SERUM DRUG (IMMUNOASSAY) 2020-11-22 11:52:[address] [facility] SCREEN CBC WITH DIFF 2020-11-22 11:52:00 Miguelito Salter [facility] GLYCOSYLATED HEMOGLOBIN 2020-11-22 11:52:00 DominguezTim [facility] (A1C) [facility] D-DIMER 2020-11-22 11:52:00 Miguelito Salter [facility] POCT TEST 2020-10-22 10:12:00 Chaka Steinberg [facility] URINE DRUG (IMMUNOASSAY) 2020-10-22 10:10:[address] [facility] SCREEN URINALYSIS 2020-10-22 10:10:00 Chaak Steinberg [facility] TROPONIN I 2020-10-22 09:34:00 Chaka Steinberg [facility] CT ABDOMEN PELVIS W 2020-10-22 08:02:55 Chaka Steinberg [facility] CONTRAST [facility] XR CHEST 1 VW 2020-10-22 07:40:59 Chaka Steinberg [facility] COVID-19 (ID NOW RAPID 2020-10-22 07:38:00 Chaka Steinberg [facility] TESTING) Medical Branch LIPASE 2020-10-22 07:37:00 Chaka Steinberg [facility] TROPONIN I 2020-10-22 07:37:00 Chaka Steinberg [facility] HEPATIC FUNCTION PANEL 2020-10-22 07:37:00 [facility] ([id number] (ALB,T.PRO,BILI Medical Branch T,BU/BC,ALT,AST,ALK PHOS) BASIC METABOLIC PANEL 2020-10-22 07:37:00 [facility] (NA, K, CL, CO2, Medical Branch GLUCOSE, BUN, CREATININE, CA) ETHANOL 2020-10-22 07:37:00 [facility] CBC WITH DIFF 2020-10-22 07:37:00 [facility] CREATINE KINASE 2020-10-15 14:58:00 Sergei, [facility] LIPASE 2020-10-15 14:58:00 Sergei, [facility] TEST, SERUM 2020-10-15 14:58:00 Sergei, [facility] TROPONIN I 2020-10-15 14:58:00 Sergei, [facility] HEPATIC FUNCTION PANEL 2020-10-15 14:58:00 Sergei [facility] ([id number]) ([facility].PRO,[facility] T,BU/BC,ALT,AST,ALK PHOS) BASIC METABOLIC PANEL 2020-10-15 14:58:00 Sergei [facility] (NA, K, CL, CO2, Medical Branch GLUCOSE, BUN, CREATININE, CA) N-TERMINAL PRO-BNP 2020-10-15 14:58:00 Sergei [facility] XR CHEST 2 VW 2020-10-15 13:47:[address] [facility] CT HEAD WO CONTRAST 2020-10-15 13:37:33 Sergei [facility] CREATINE KINASE 2020-10-15 13:27:[address] [facility] LIPASE 2020-10-15 13:27:[address] [facility] TROPONIN I 2020-10-15 13:27:[address] [facility] N-TERMINAL PRO-BNP 2020-10-15 13:27:00 Sadi MaiCindyChris [facility] POCT TEST 2020-10-13 11:13:00 Gage Torres [facility] COMP. METABOLIC PANEL 2020-10-13 11:06:00 Gage Torres [facility] ([id number]) [facility] EXTRA TUBE ORANGE 2020-10-13 11:06:00 Gage Torres [facility] EXTRA TUBE LT. GREEN 2020-10-13 11:06:00 Gage Torres [facility] URINE DRUG (IMMUNOASSAY) 2020-10-13 11:01:00 Gage Torres [facility] DRUG [facility] SCREEN URINALYSIS 2020-10-13 11:01:00 Gage Torres [facility] CBC WITH DIFF 2020-10-13 10:41:00 Gage Torres [facility] XR CHEST 1 VW 2020-10-13 10:40:00 Gage Torres [facility] PROTHROMBIN TIME / INR 2020-10-13 10:26:00 Gage Torres [facility] D-DIMER 2020-10-13 10:26:00 Gage Torres [facility] ACTIVATED PARTIAL 2020-10-13 10:26:00 Gage Torres [facility] THRMPLAS CHER [facility] LIPASE 2020-10-13 10:09:00 Gage Torres [facility] TROPONIN I 2020-10-13 10:09:00 Gage Torres [facility] THYROID STIMULATING 2020-10-13 10:09:00 Gage Torres [facility] HORMONE [facility] ETHANOL 2020-10-13 10:09:00 Gage Torres [facility] EXTRA TUBE ORANGE 2020-10-13 10:09:00 Gage Torres [facility] EXTRA TUBE LT. GREEN 2020-10-13 10:09:00 Gage Torres [facility] COVID-19 (ID NOW RAPID 2020-10-13 10:06:00 Gage Torres [facility] TESTING) Medical Branch LIPASE 2020-09-17 03:02:00 [facility] 2020-09-17 03:02:00 William [facility] HEPATIC FUNCTION PANEL 2020-09-17 03:02:00 William [facility] ([id number]) (ALB,T.PRO,BILI [facility] T,BU/BC,ALT,AST,ALK PHOS) BASIC METABOLIC PANEL 2020-09-17 03:02:00 [facility] (NA, K, CL, CO2, [facility] [place] GLUCOSE, BUN, CREATININE, CA) CBC WITH DIFF 2020-09-17 03:02:00 William [facility] CT ABDOMEN PELVIS W 2020-09-06 11:31:59 Arnold Coughlin [facility] CONTRAST [facility] XR CHEST 1 VW 2020-09-06 10:03:21 Arnold Coughlin [facility] CBC WITH DIFF 2020-09-06 09:58:00 Arnold Coughlin [facility] LIPASE 2020-09-06 09:57:00 Arnold Coughlin [facility] TROPONIN I 2020-09-06 09:57:00 Arnold Coughlin [facility] COMP. METABOLIC PANEL 2020-09-06 09:57:00 Arnold Coughlin [facility] ([id number]) Medical Branch N-TERMINAL PRO-BNP 2020-09-06 09:57:00 Arnold Coughlin [facility] D-DIMER 2020-09-02 02:24:00 Ana Sommers [facility] COVID-19 (ID NOW RAPID 2020-09-02 00:10:00 Ana Sommers [facility] TESTING) Medical Branch LIPASE 2020-09-02 00:07:00 Ana Sommers [facility] TROPONIN I 2020-09-02 00:07:00 Ana Sommers [facility] THYROID STIMULATING 2020-09-02 00:07:00 Ana Sommers [facility] HORMONE [facility] HEPATIC FUNCTION PANEL 2020-09-02 00:07:00 Ana Sommers [facility] ([id number]) (ALB,T.PRO,BILI Medical Branch T,BU/BC,ALT,AST,ALK PHOS) BASIC METABOLIC PANEL 2020-09-02 00:07:00 Ana Sommers [facility] (NA, K, CL, CO2, Medical Branch GLUCOSE, BUN, CREATININE, CA) CBC WITH DIFF 2020-09-02 00:07:00 Ana Sommers [facility] N-TERMINAL PRO-BNP 2020-09-02 00:07:00 Ana Sommers [facility] XR CHEST 1 VW 2020-09-02 00:02:14 Ana Sommers [facility] NOTICE OF PRIVACY 2020-09-01 22:34:26 Doctor Unassigned, No [facility] PRACTICES Name [facility] CONSENT/REFUSAL FOR 2020-09-01 22:34:08 Doctor Unassigned, No [facility] DIAGNOSIS AND TREATMENT Name [facility] BASIC METABOLIC PANEL 2020-04-12 10:18:00 Buddy Montes [facility] (NA, K, CL, CO2, [facility] GLUCOSE, BUN, CREATININE, CA) CBC WITH DIFF 2020-04-12 10:18:00 Buddy Montes [facility] XR FOREARM 2 VW LEFT 2020-04-11 17:54:00 Jennifer [facility] XR HAND 3+ VW LEFT 2020-04-11 17:54:00 Jennifer [facility] XR WRIST 3+ VW LEFT 2020-04-11 17:54:[address] [facility] XR ANKLE 3+ VW LEFT 2020-04-11 12:47:35 Tanisha [facility] XR FOOT 3+ VW LEFT 2020-04-11 12:47:35 Sketchler, [facility] XR TIBIA FIBULA 2 VW 2020-04-11 12:47:35 [facility] CT TRAUMA HEAD WO 2020-04-11 12:41:26 Clay Garay [facility] CONTRAST [facility] CT TRAUMA THORAX W 2020-04-11 12:41:26 Clay Garay [facility] CONTRAST [facility] CT TRAUMA CERVICAL SPINE 2020-04-11 12:41:26 Tanisha [facility] CONTRAST Medical Branch CT TRAUMA THORACIC SPINE 2020-04-11 12:41:26 Tanisha [facility] CONTRAST Medical [place] CT TRAUMA ABDOMEN PELVIS 2020-04-11 12:41:26 Tanisha [facility] CONTRAST Medical [place] CT TRAUMA LUMBAR SPINE 2020-04-11 12:41:26 Clay Garay [facility] CONTRAST Medical Branch HB ABO GROUPING 2020-04-11 12:20:00 Sanjay [facility] BASIC METABOLIC PANEL 2020-04-11 12:17:00 [facility] (NA, K, CL, CO2, [facility] GLUCOSE, BUN, CREATININE, CA) CBC WITHOUT DIFF 2020-04-11 12:17:00 Sanjay [facility] PROTHROMBIN TIME / INR 2020-04-11 12:17:00 [facility] 2020-04-11 12:17:00 Sanjay [facility] THRMPLAS CHER [facility] EKG-12 LEAD 2020-04-11 04:23:07 Gage Trores [facility] TROPONIN I 2020-04-11 01:53:00 Vamshi [facility] EKG-12 LEAD 2020-04-11 01:46:16 Vamshi [facility] ADC / LCC - DRUG SCREEN 2020-04-10 05:19:00 Singer [facility] TRIAGE [facility] XR CHEST 1 VW 2020-04-10 04:26:18 Singer [facility] COVID-19 (ID NOW RAPID 2020-04-10 04:15:00 Wiley Mendoza [facility] TESTING) Medical Branch D-DIMER 2020-04-10 04:14:00 Singer [facility] LIPASE 2020-04-10 04:11:00 Singer [facility] MAGNESIUM 2020-04-10 04:11:00 Singer [facility] TROPONIN I 2020-04-10 04:11:00 Singer [facility] COMP. METABOLIC PANEL 2020-04-10 04:11:00 Singer [facility] ([id number]) [facility] CBC WITH DIFF 2020-04-10 04:11:00 Singer [facility] N-TERMINAL PRO-BNP 2020-04-10 04:11:00 Singer [facility] EKG-12 LEAD 2020-04-10 03:55:43 Singer [facility] NOTICE OF PRIVACY 2020-04-10 03:51:52 Doctor Unassigned, No [facility] PRACTICES Name Medical Branch CONSENT/REFUSAL FOR 2020-04-10 03:51:01 Doctor Unassigned, No [facility] DIAGNOSIS AND TREATMENT Name Medical [facility] COMP. METABOLIC PANEL 2020-02-25 18:39:00 Georgia Estrada [facility] ([id number]) [facility] CBC WITH DIFF 2020-02-25 18:39:00 Georgia Estrada [facility] EKG-12 LEAD 2020-02-25 18:27:17 Georgia Estrada [facility] CT ABDOMEN PELVIS W 2019-07-13 00:47:46 Diego Shelby [facility] CONTRAST [facility] POCT TEST 2019-07-13 00:29:00 Diego Shelby [facility] Medical Branch LIPASE 2019-07-12 23:07:00 Diego Shelby [facility] COMP. METABOLIC PANEL 2019-07-12 23:07:00 [facility] ([id number] Medical Branch CBC WITH DIFFERENTIAL 2019-07-12 23:07:00 Diego Shelby [facility] URINALYSIS 2019-07-12 23:07:00 Diego Shelby [facility] XR CHEST 1 VW 2019-03-06 16:21:04 Andressa Christianson [facility] Encounters Start End Encounter Admission Attending Care Care Encounter Source Date/Time Date/Time Type Type Clinicians Facility Department ID 2021 Outpatient CHRISTUS VARMA [id number] [facility]U 20:48:43 -[id number] [facility] 2021 Outpatient CHRISTUS CHRISTUS [id number] [facility]STU 20:48:43 -[id number] [facility] 2021-03-25 2021-03-25 Emergency [facility] [id number] Univers 03:49:00 11:27:00 Flmagda Knowleston [id number] [facility] [id number] [facility] [id number] [place] [id number] [place] 2021-03-25 2021-03-25 Emergency X [facility] ERT [id number] Univers 03:49:00 03:49:00 ARNOLD [facility] 2020-12-01 2020-12-01 Letter Melanie Kolb [id number] 00:00:00 00:00:00 (Out) Kash Julian [id number] [place] [id number] [facility] 2020-12-01 2020-12-01 Letter Melanie Kolb [id number] Univers 00:00:00 00:00:00 (Out) Kash Julian [id number] it [facility] [id number] [place] [id number] 2020-11-22 2020-11-23 [facility] Miguelito Salter [id number] 06:16:00 14:46:00 Encounter Rosmery [facility] [id number] [facility] [id number] [id number] 2020-11-22 2020-11-23 [facility] Miguelito Salter [id number] Univers 06:16:00 14:46:00 Encounter Rosmery Mai [id number] ity [facility] [id number] [place] [id number] [facility] 090 Branch 2020-11-22 2020-11-22 Emergency X [facility] ERT [id number] Univers 06:13:00 06:13:00 ity of [facility] 2020-10-22 2020-10-22 Emergency Steinberg, Chaka TRAUMA [id number] 02:04:00 07:32:00 W CENTER [id number] [id number] [id number] 2020-10-22 2020-10-22 Emergency Steinberg, Chaka TRAUMA [id number] Univers 02:04:00 07:32:00 W CENTER [id number] [id number] [id number] [facility] 014 Branch 2020-10-22 2020-10-22 Emergency X STEINBERG, CHAKA [facility] ERT [id number] Univers 02:04:00 02:04:00 ity of [facility] 2020-10-19 2020-10-20 Emergency TRAUMA [id number] 23:59:00 00:57:00 CENTER [id number] [id number] [id number] 014 2020-10-19 2020-10-20 Emergency TRAUMA [id number] Univers 23:59:00 00:57:00 CENTER [id number] [place] [id number] [facility] 014 Branch 2020-10-19 2020-10-20 Emergency X UNKNOWN, [facility] ERT [id number] Univers 23:59:00 00:57:00 ATTENDING ity of [facility] 2020-10-15 2020-10-15 Emergency Sergei, TRAUMA [id number] 07:37:00 15:30:00 [facility] [id number] [id number] 2020-10-15 2020-10-15 Emergency Sergei, TRAUMA [id number] Univers 07:37:00 15:30:00 [facility] [id number] ity [facility].[id number] [facility] [id number] [address] 2020-10-15 2020-10-15 Emergency X [facility] ERT [id number] Univers 07:28:00 07:28:00 ity of [facility] 2020-10-13 2020-10-13 Emergency Melissa, Gage E TRAUMA [id number] .[id number] 04:42:00 11:13:00 Miguelito Salter [facility] [id number] Moises Anderson 4.2.7.2.686 [id number] 014 2020-10-13 2020-10-13 Emergency Melissa, Ggae E TRAUMA [id number] .[id number] [facility] 04:42:00 11:13:00 Gaetano [facility] [id number] ity of Moises Anderson 4.2.7.2.686 [place] [id number] [address] 2020-10-13 2020-10-13 Emergency X MELISSA, [facility] ERT [id number] Univers 04:42:00 04:42:00 GAGE ity of [facility] [facility] 2020-09-16 2020-09-17 Emergency William, [facility] [id number] 21:39:00 00:11:00 Hoang Huynh 350.1.13.10 Jaci 4.2.7.2.686 [place] [id number] 2020-09-16 2020-09-17 Emergency William, [facility] [id number] Univers 21:39:00 00:11:00 Hoang Huynh 350.1.13.10 i ty of [place] 4.2.7.2.686 [facility] [phone] [address] 2020-09-16 2020-09-16 Emergency X WILLIAM, [facility] ERT [id number] Univers 21:39:00 21:39:00 HOANG canales [facility] 2020-09-12 2020-09-12 Emergency X [facility] ERT [id number] Univers 05:03:00 05:03:00 WILEY canales [facility] 2020-09-06 2020-09-06 Emergency [facility] [id number] 04:37:00 07:13:00 Arnold Huynh 350.1.13.10 [place] 4.2.7.2.686 [place] [phone] [facility] 2020-09-06 2020-09-06 Emergency [facility] [id number] Univers 04:37:00 07:13:00 Arnold Huynh 350.1.13.10 ity [facility] 4.2.7.2.6 [facility] [id number] [address] 2020-09-06 2020-09-06 Emergency [facility] [id number] Univers 04:37:00 04:37:00 ARNOLD canales [facility] 2020-09-01 2020-09-01 Emergency [facility] [id number] Univers 17:06:00 21:39:00 Ana Knowleston 350.1.13.10 ity of [place] 4.2.7.2.686 [facility] [id number] [address] 2020-09-01 2020-09-01 Emergency [facility] [id number] 17:06:00 21:39:00 Ana [facility] 350.1.13.[address] [place] [address] [place] [address] [phone] [facility] 2020-09-01 2020-09-01 Emergency X [facility] ERT [id number] Univers 16:36:00 16:36:00 ity of [facility] 2020-09-01 2020-09-01 Orders Doctor BUDDY 1.2.840.114 [id number] Univers 00:00:00 00:00:00 Only Unassigned, MAGDY 350.1.13.10 ity of [facility] 4.2.7.2.686 Vishal as [phone] [facility] [address] 2020-09-01 2020-09-01 Orders Doctor BUDDY 1.2.840.114 [id number] 00:00:00 00:00:00 Only Unassigned, MAGDY 350.1.13.10 [facility] 4.2.7.2.686 [id number] [id number] 2020-04-15 2020-04-15 Transition Francisco Price 1.2.840.114 [id number] Univers 00:00:00 00:00:00 of Care Rafaela Richardson Mikel 350.1.13.10 i ty [place] [phone] [facility] [address] 2020-04-15 2020-04-15 Transition Francisco Price 1.2.840.114 [id number] 00:00:00 00:00:00 of Care Rafaela Cavazosy 350.1.13.10 [place] 4.2.7.2.686 [id number] 2020-04-11 2020-04-14 [facility] Daniella Melanie 1.2.132.194 [id number] Univers 06:55:00 20:35:00 Encounter Pedrito Julian 350.1.13.10 ity of Hospital 4.2.7.2.686 Vishal as [phone] [facility] [address] 2020-04-11 2020-04-11 Emergency T [facility] STR [id number] Univers 06:55:00 06:55:00 ity of [facility] 2020-04-10 2020-04-11 Emergency Melissa, TRAUMA [id number] [id number] Univers 23:04:00 01:06:00 Gage SANDY 350.1.13.10 [place] [id number] [address] 2020-04-10 2020-04-10 Emergency [facility] [id number] Univers 23:04:00 23:04:00 GAGE canales [facility] 2020-04-10 2020-04-10 Emergency Vamshi, Opal TRAUMA 1.2.840. 114 [id number] Univers 20:37:00 22:02:00 Pedrito Rivera [place] 350.1.13.10 [place] [id number] [address] 2020-04-10 2020-04-10 Emergency [facility] [id number] Univers 20:37:00 20:37:00 PEDRITO canales [facility] 2020-04-09 2020-04-10 [facility] [id number] Univers 22:56:00 00:49:00 Wiley Huynh 350.1.13.10 i [place] [id number] [address] 2020-04-09 2020-04-09 Emergency X [facility] ERT [id number] Univers 22:49:00 22:49:00 WILEY canales [facility] 2020-02-25 2020-02-[address] [facility] [id number] Univers 13:23:00 14:09:00 Georgia Huynh 350.1.13.10 i ty [place] [id number] [address] 2020-02-25 2020-02-25 Emergency X [facility] ERT [id number] Univers 13:23:00 13:23:00 GEORGIA parker of [facility] 2019-07-12 2019-07-12 Emergency Unknown, Attending TRAU[place] [id number] [id number] Univers 15:04:04 21:14:00 Gladys Daigle [place] 350.1.13. 10 [place] [id number] [address] 2019-07-12 2019-07-12 Emergency X DONELL [facility] ERT [id number] [facility] 15:04:04 21:14:00 GLADYS canales [facility] 2019-03-06 2019-03-06 Hospital Sammy, [place] 1.2.840.114 [id number] [facility] 11:16:49 23:59:00 Encounter Andressa Magana [facility] 350.1.13.10 ity of Unit 4.2.7.2.686 Marixa almonte [phone] [facility] [address] [place] Results Test Description Test Time Test Comments Results Result Comments Source TROPONIN I 2021-03-25 12:15:08 Test Item Value Reference Range Interpretation Comme nts TROPONIN I (test code = 0.009 ng/mL See_Comment [Au tomated message] The [id number]) system which ge nerated this result tra nsmitted reference range : <=0.034. The reference r micah was not used to int erpret this result as normal/abnormal . PAULA (test code = PAULA) Reference (Normal) Range (defined by the 99th percentile reference limit): <= 0.034 ng/mL Note: Cardiac troponin begins to rise 3-4 hours after the onset of ischemia. Repeat in 4-6 hours if the sample was drawn within 3-4 hours of the onset of the symptom and found normal. Diagnosis of myocardial injury is made with acute changes in cTn concentrations with at least one serial sample above the 99th percentile upper reference limit (URL), taken together with the patient's clinical presentation. Biotin has been reported to cause a negative bias, interpret results relative to patient's use of biotin. Lab Interpretation Normal (test code = 66208-4) [id number] 10:51:58 Test Item Value Reference Interpretation Comments Range D-DIMER (test code = See_Comment H [Autom ated 5942970380) message] The system which generated this result transmitted reference range : <0.41 ?g/mL (FEU). The reference range was not used to interpret this result as normal/abnormal . PAULA (test code = This test may be PAULA) used in conjunction with a clinical pretest probability (PTP) assessment model to exclude venous thromboembolism (VTE) in patients suspected of deep venous thrombosis (DVT) and pulmonary embolism (PE) A D-Dimer value less than 0.50 ?g/ml (FEU) has a negative predicative value of 96 to 100% (95% CI)and 97 to 100% (95% CI) as an aid in the diagnosis of deep vein thrombosis (DVT) and pulmonary embolism when there is low or moderate pretest probability of PE or DVT. D-Dimer values are expressed in initial fibrinogen equivalent units (FEU)" The assay results should be used with other information, including the clinical context, in forming a diagnosis. Lab Interpretation Abnormal (test code = 36061-3) [facility] WITH [id number] 10:39:17 Test Item Value Reference Range Interpretation Comments WBC (test code = See_Comment [Automated 4390-2) message] The sy stem which generated this result transmitted reference range : 4.30 - 11.10 10*3/?L. The reference range was not used to interpret this result as normal/abnormal . RBC (test code = See_Comment [Automated 089-8) message] The sy stem which generated this result transmitted reference range : 3.93 - 5.25 10*6/?L. The reference range was not used to interpret this result as normal/abnormal . HGB (test code = 13.5 g/dL 11.6-15.0 718-7) HCT (test code = 40.8 % 35.7-45.2 4544-3) MCV (test code = 88.9 fL 80.6-95.5 787-2) MCH (test code = 29.4 pg 25.9-32.8 785-6) MCHC (test code = 33.1 g/dL 31.6-35.1 786-4) RDW-SD (test code = 51.8 fL 39.0-49.9 H 77176-1) RDW-CV (test code = 15.7 % 12.0-15.5 H 788-0) PLT (test code = See_Comment [Automated 777-3) message] The sy stem which generated this result transmitted reference range : 166 - 358 10*3/ ?L. The reference r micah was not used to interpret this result as normal/abnormal . MPV (test code = 10.2 fL 9.5-12.9 26103-2) IPF % (test code = 1.9 % 1.3-7.7 Platelet count 7937668477) measured by fluorescence method. NRBC/100 WBC (test See_Comment [Automat ed code = 3080241891) message] The system which generated this result transmitted reference range : 0.0 - 10.0 /100 WBCs. The refer ence range was not u sed to interpret th is result as normal/abnormal . NRBC x10^3 (test code <0.01 See_Comment [Auto mated = 4010893382) message] The s ystem which generated this result transmitted reference range : 10*3/?L. The reference range was not used to interpret this result as normal/abnormal . GRAN MAT (NEUT) % 63.4 % (test code = 770-8) IMM GRAN % (test code 0.20 % = 7961415266) LYMPH % (test code = 24.2 % 736-9) MONO % (test code = 10.4 % 5905-5) EOS % (test code = 0.9 % 713-8) BASO % (test code = 0.9 % 706-2) GRAN MAT x10^3(ANC) 3.34 10*3/uL 1.88-7.09 (test code = 5007567227) IMM GRAN x10^3 (test <0.03 0.00-0.06 code = 4242604484) LYMPH x10^3 (test code 1.28 10*3/uL 1.32-3.29 L = 731-0) MONO x10^3 (test code 0.55 10*3/uL 0.33-0.92 = 742-7) EOS x10^3 (test code = 0.05 10*3/uL 0.03-0.39 711-2) BASO x10^3 (test code 0.05 10*3/uL 0.01-0.07 = 704-7) PLT ESTIMATE (test Normal Normal code = 9317-9) Lab Interpretation Abnormal (test code = 31681-3) [facility] [id number] 10:26:56 Test Item Value Reference Interpretation Comments Range TROPONIN I (test 0.011 ng/mL See_Comment [Automated code = 5257122616) message] The system which generated this result transmitted reference range : <=0.034. The reference range was not used to interpret this result as normal/abnormal . PAULA (test code = Reference (Normal) PAULA) Range (defined by the 99th percentile reference limit): <= 0.034 ng/mL Note: Cardiac troponin begins to rise 3-4 hours after the onset of ischemia. Repeat in 4-6 hours if the sample was drawn within 3-4 hours of the onset of the symptom and found normal. Diagnosis of myocardial injury is made with acute changes in cTn concentrations with at least one serial sample above the 99th percentile upper reference limit (URL), taken together with the patient's clinical presentation. Biotin has been reported to cause a negative bias, interpret results relative to patient's use of biotin. Lab Interpretation Normal (test code = 40067-0) [facility]. METABOLIC PANEL (77607)2021-03-25 10:15:34 Test Item Value Reference Range Interpretation Comments NA (test code = 141 mmol/L 135-145 4569076893) K (test code = 3.7 mmol/L 3.5-5.0 4345319153) CL (test code = 108 mmol/L 98-108 9064014906) CO2 TOTAL (test code = 23 mmol/L 23-31 3987651012) AGAP (test code = 2-16 8292291975) BUN (test code = 6 mg/dL 7-23 L 5022567251) GLUCOSE (test code = 108 mg/dL 70-110 1885992912) CREATININE (test code = 0.65 mg/dL 0.50-1.04 9232416631) TOTAL BILI (test code = 0.4 mg/dL 0.1-1.4 9545039821) CALCIUM (test code = 8.7 mg/dL 8.6-10.6 7120387511) T PROTEIN (test code = 7.9 g/dL 6.3-8.2 8317493502) ALBUMIN (test code = 4.3 g/dL 3.5-5.0 6324029772) ALK PHOS (test code = 72 U/L 34-122 5510792183) ALTv (test code = 31 U/L 5-35 1742-6) AST(SGOT) (test code = 45 U/L 13-40 H 8229403363) eGFR (test code = mL/min/1.73m2 5471485334) PAULA (test code = PAULA) Association of Glomerular Filtration Rate (GFR) and Staging of Kidney Disease* + --+ --+ ------+| GFR (mL/min/1.73 m2) ?| With Kidney Damage ?| ?Without Kidney Damage+ --------+ --------+ +| ?>90 ?| ?Stage one ?| ? Normal ?+ ---+ ---+ -------+| ?60-89 ?| ?Stage two ?| ? Decreased GFR ? + --+ --+ ------+| ?30-59 ?| ?Stage three ?| ? Stage three ? + --+ --+ ------+| ?15-29 ?| ?Stage four ? | ? Stage four ?+ ---+ ---+ -------+| ?<15 (or dialysis) ? ?| ?Stage five ? | ? Stage five ?+ ---+ ---+ -------+ *Each stage assumes the associated GFR level has been in effect for at least three months. ?Stages 1 to 5, with or without kidney disease, indicate chronic kidney disease. Notes: Determination of stages one and two (with eGFR >59mL/min/1.73 m2) requires estimation of kidney damage for at least three months as defined by structural or functional abnormalities of the kidney, manifested by either:Pathological abnormalities or Markers of kidney damage (including abnormalities in the composition of the blood or urine or abnormalities in imaging tests). Lab Interpretation Abnormal (test code = 76115-0) [facility] 10:15:34 Test Item Value Reference Range Interpretation Comments LIPASE (test code = 7402268994) 54 U/L 0-220 Lab Interpretation (test code = Normal 42027-0) [facility]TT (for use with Heparin Drip)2020-11-23 11:10:10 Test Item Value Reference Range Interpretation Comments APTT Patient (test code See_Comment H [Au tomated message] = 3173-2) The system Serat[employer] generated this result transmitted ref erence range: 26 - 36 Seconds. The reference range was not used to int erpret this result as normal/abnormal . Lab Interpretation (test Abnormal code = 00596-5) [facility] Metabolic Panel (NA, K, CL, CO2, GLUCOSE, BUN, CREATININE, CA)2020-11-23 05:36:05 Test Item Value Reference Range Interpretation Comments NA (test code = 133 mmol/L 135-145 L 7622882090) K (test code = 3.6 mmol/L 3.5-5.0 4380775988) CL (test code = 105 mmol/L 98-108 0161864281) CO2 TOTAL (test code = 24 mmol/L 23-31 9598904791) AGAP (test code = 2-16 2606388739) BUN (test code = 11 mg/dL 7-23 2038851276) GLUCOSE (test code = 104 mg/dL 70-110 0678694187) CREATININE (test code = 0.64 mg/dL 0.50-1.04 2376535922) CALCIUM (test code = 8.4 mg/dL 8.6-10.6 L 8063138956) eGFR (test code = mL/min/1.73m2 1149965085) PAULA (test code = PAULA) Association of Glomerular Filtration Rate (GFR) and Staging of Kidney Disease* + --+ --+ ------+| GFR (mL/min/1.73 m2) ?| With Kidney Damage ?| ?Without Kidney Damage+ --------+ --------+ +| ?>90 ?| ?Stage one ?| ? Normal ?+ ---+ ---+ -------+| ?60-89 ?| ?Stage two ?| ? Decreased GFR ? + --+ --+ ------+| ?30-59 ?| ?Stage three ?| ? Stage three ? + --+ --+ ------+| ?15-29 ?| ?Stage four ? | ? Stage four ?+ ---+ ---+ -------+| ?<15 (or dialysis) ? ?| ?Stage five ? | ? Stage five ?+ ---+ ---+ -------+ *Each stage assumes the associated GFR level has been in effect for at least three months. ?Stages 1 to 5, with or without kidney disease, indicate chronic kidney disease. Notes: Determination of stages one and two (with eGFR >59mL/min/1.73 m2) requires estimation of kidney damage for at least three months as defined by structural or functional abnormalities of the kidney, manifested by either:Pathological abnormalities or Markers of kidney damage (including abnormalities in the composition of the blood or urine or abnormalities in imaging tests). Lab Interpretation Abnormal (test code = 50711-0) [facility]ano[facility] [id number] 05:36:05 Test Item Value Reference Range Interpretation Comments MAGNESIUM (test code = 8381430449) 2.1 mg/dL 1.7-2.4 Lab Interpretation (test code = Normal 92729-0) [facility] (for use with Heparin Drip)2020-11-23 05:25:43 Test Item Value Reference Range Interpretation Comments APTT Patient (test code See_Comment H [Au tomated message] = 3173-2) The system [employer] generated this result transmitted ref erence range: 26 - 36 Seconds. The reference range was not used to int erpret this result as normal/abnormal . Lab Interpretation (test Abnormal code = 01881-1) [facility] with [id number] 05:11:43 Test Item Value Reference Range Interpretation Comments WBC (test code = See_Comment [Automated 7890-2) message] The sy stem which generated this result transmitted reference range : 4.30 - 11.10 10*3/?L. The reference range was not used to interpret this result as normal/abnormal . RBC (test code = See_Comment [Automated 549-8) message] The sy stem which generated this result transmitted reference range : 3.93 - 5.25 10*6/?L. The reference range was not used to interpret this result as normal/abnormal . HGB (test code = 12.5 g/dL 11.6-15.0 718-7) HCT (test code = 37.6 % 35.7-45.2 4544-3) MCV (test code = 91.5 fL 80.6-95.5 787-2) MCH (test code = 30.4 pg 25.9-32.8 785-6) MCHC (test code = 33.2 g/dL 31.6-35.1 786-4) RDW-SD (test code = 43.7 fL 39.0-49.9 37123-6) RDW-CV (test code = 13.1 % 12.0-15.5 788-0) PLT (test code = See_Comment [Automated 777-3) message] The sy stem which generated this result transmitted reference range : 166 - 358 10*3/ ?L. The reference r micah was not used to interpret this result as normal/abnormal . MPV (test code = 9.2 fL 9.5-12.9 L 51500-7) NRBC/100 WBC (test See_Comment [Automat ed code = 4508438610) message] The system which generated this result transmitted reference range : 0.0 - 10.0 /100 WBCs. The refer ence range was not u sed to interpret th is result as normal/abnormal . NRBC x10^3 (test code <0.01 See_Comment [Auto mated = 5366377818) message] The s ystem which generated this result transmitted reference range : 10*3/?L. The reference range was not used to interpret this result as normal/abnormal . GRAN MAT (NEUT) % 58.2 % (test code = 770-8) IMM GRAN % (test code 0.50 % = 6234692875) LYMPH % (test code = 28.4 % 736-9) MONO % (test code = 8.9 % 5905-5) EOS % (test code = 3.3 % 713-8) BASO % (test code = 0.7 % 706-2) GRAN MAT x10^3(ANC) 3.53 10*3/uL 1.88-7.09 (test code = 1329162147) IMM GRAN x10^3 (test 0.03 10*3/uL 0.00-0.06 code = 5158488689) LYMPH x10^3 (test code 1.72 10*3/uL 1.32-3.29 = 731-0) MONO x10^3 (test code 0.54 10*3/uL 0.33-0.92 = 742-7) EOS x10^3 (test code = 0.20 10*3/uL 0.03-0.39 711-2) BASO x10^3 (test code 0.04 10*3/uL 0.01-0.07 = 704-7) Lab Interpretation Abnormal (test code = 05479-2) [facility] CHEST 1 [id number] 00:27:06 No acute cardiopulmonary abnormality. Preliminary Report Dictated by Resident: Navin Crespo MD., have reviewed this study and agree with theabove report.EXAM: XR CHEST 1 VW CLINICAL INDICATION: chest pain COMPARISON: 10/22/2020 FINDINGS: The lungs are well-expanded and clear without focal consolidation, pleuraleffusion, or pneumothorax. The cardiac silhouette is normal in size. No acute osseous abnormality. [facility], Radiant Results Inft User - 11/22/2020 7:28 PM CDTFormattingof this note might be different from the original.EXAM: XR CHEST 1 VWCLINICAL INDICATION: chest painCOMPARISON: 10/22/2020FINDINGS:The lungs are well-expanded and clear without focal consolidation, pleuraleffusion, or pneumothorax. The cardiac silhouette is normal in size. No acute osseous abnormality. IMPRESSIONNo acute cardiopulmonary abnormality.Preliminary Report Dictated by Resident: Chaka Gutierrez, Navin Ordonez MD., have reviewed this study and agree with theabove report. [facility]anoTHYROID STIMULATING [id number] 22:15:04 Test Item Value Reference Range Interpretation Comments TSH (test code = See_Comment [Automated message] 4405509230) The system Ser[employer] generated this result transmitted ref erence range: 0.45 - 4 .70 mIU/L. The refe rence range was not u sed to interpret this result as normal/abnor mal. Lab Interpretation (test Normal code = 10249-5) [facility]anoGLYCOSYLATED HEMOGLOBIN (A1C)2020-11-22 22:14:59 Test Item Value Reference Range Interpretation Comments HGB A1C (test code = 5.1 % 4.0-5.7 4548-4) PAULA (test code = PAULA) Reference RangesNormal: <5.7%Prediabetes: 5.7 - 6.4%Diabetes: > 6.5% Lab Interpretation (test Normal code = 99769-2) [facility]ano[facility] [id number] 22:01:07 Test Item Value Reference Range Interpretation Comments FREE T4 (test code = See_Comment [Autom ated message] 2762454797) The system [employer] generated this result transmitted ref erence range: 0.78 - 2 .20 ng/dL:. The ref erence range was not u sed to interpret this result as normal/abnor mal. Lab Interpretation (test Normal code = 49460-9) [facility] PlanoLIPID PANEL (38733)(TOTAL CHOLESTEROL, TRIGLYCERIDES, HDL)2020-11-22 21:44:08 Test Item Value Reference Range Interpretation Comments CHOL (test code = 279 mg/dL 120-200 H 6481551465) HDL (test code = 85 mg/dL >50 8424926125) HDLC RATIO (test code = See_Comment [Au tomated message] 3495377897) The system [employer] generated this result transmit bhaskar reference range : <=4.5. The refe rence range was not u sed to interpret th is result as normal/abnormal . TRIG (test code = 312 mg/dL 30-170 H 9262668442) LDL CHOL (test code = 132 mg/dL See_Comment [Auto mated message] 34099-6) The system [employer] generated this result transmit bhaskar reference range : <=160. The refe rence range was not u sed to interpret th is result as normal/abnormal . VLDL (test code = 62 mg/dL 5-60 H 0785585372) Lab Interpretation (test Abnormal code = 81395-1) [facility]anoCT ANGIOGRAM [id number] 21:04:53 1. ?No acute aortic syndrome. No pulmonary emboli. 2. ?Small type III hiatal hernia. Preliminary Report Dictated by Resident: Chaka Lara I, Navin ?MD Mery., have reviewed this study and agree with theabove report.PROCEDURE: CT ANGIO CHEST WITH CONTRAST - PE PROTOCOL CLINICAL INDICATION: 40-year-old female with history of drug use withsubsternal chest pain, evaluate for dissection and PE ? COMPARISON: ?None. DOSE: 2003.7 mGy-cm TECHNIQUE AND FINDINGS: Initially non contrast images obtained though thechest and constructed as axial volumes through the chest. Subsequent gaugevolumetric dataacquisition of the chest with intravenous constructed ascontiguous axial volumes and reconstructed as sagittal, coronal, and MIPimages.(DFOV = 40 cm) FINDINGS: Vascular: No intramural hematoma, aorticaneurysm or aortic dissection. Thethoracic aorta is normal in caliber. No significant atheroscleroticdisease. No pulmonary emboli to the level of segmental branches. LINES AND TUBES: None LOWER NECK/THYROID: The visualized portions of thyroid gland are normal. LUNGS: Mild bibasilar subsegmental dependent atelectasis. The lungs areotherwise clear. PLEURA: No pleural effusion or pneumothorax. CENTRAL AIRWAY: No bronchiectasis, mucus plugging, or bronchial wallthickening. MEDIASTINUM: No mediastinal lym phadenopathy. Normal cardiac morphology. Nopericardial effusion. BONES AND SOFT TISSUES: No suspicious lytic or blastic skeletal lesions. VISUALIZED UPPER ABDOMEN: Small type III hiatal hernia. [facility],Radiant Results Inft User - 11/22/2020 4:06 PM CDT PROCEDURE: CT ANGIO CHEST WITH CONTRAST - PE PROTOCOLCLINICAL INDICATION: 40-year-old female with history of drug use withsubsternal chest pain, evaluate for dissection and PE COMPARISON: None.DOSE: 2003.7 mGy- cmTECHNIQUE AND FINDINGS: Initially non contrast images obtained though thechest and constructed as axial volumes through the chest. Subsequent gaugevolumetric data acquisition of the chest with intravenous constructed ascontiguous axial volumes and reconstructed as sagittal, coronal, and MIPimages.(DFOV = 40 cm)FINDINGS: Vascular: No intramural hematoma, aortic aneurysm or aortic dissection. Thethoracic aorta is normal in caliber. No significant atheroscleroticdisease. No pulmonary emboli to the level of segmental branches.LINES AND TUBES: NoneLOWER NECK/THYROID: The visualized portions of thyroid gland are normal.LUNGS: Mild bibasilar subsegmental dependent atelectasis. The lungs areotherwise clear.PLEURA: No pleural effusion or pneumothorax.CENTRAL AIRWAY: No bronchiectasis, mucus plugging, or bronchial wallthickening.MEDIASTINUM: No mediastinal lymphadenopathy. Normal cardiac morphology. Nopericardial effusion. BONES AND SOFT TISSUES: No suspicious lytic or blastic skeletal lesions.VISUALIZED UPPER ABDOMEN: Small type III hiatal hernia. IMPRESSION1. No acute aortic syndrome. No pulmonary emboli.2. Small type III hiatal hernia.Preliminary Report Dictated by Resident:Chaka WongI, Navin Ordonez MD., have reviewed this study and agree with theabove report.[facility] [id number] 20:12:00 Test Item Value Reference Range Interpretation Comments TROPONIN I (test 0.014 ng/mL See_Comment [Automated code = 6016860529) message] The system which generated this result transmitted reference range : <=0.034. The reference range was not used to interpret this result as normal/abnormal . PAULA (test code = Equal or Less than PAULA) 0.034 ng/ml---Normal ?Note: Cardiac troponin begins to rise 3-4 hours after the onset of ischemia. Repeat in 4-6 hours if the sample was drawn within 3-4 hours of the onset of the symptom and found normal. Between 0.035 and 0.120 ng/mL--- Borderline. Questionable myocardial injury or necrosis ? ?Note: Serial measurement may be necessary to confirm or exclude the diagnosis of myocardial injury or necrosis; Clinical correlation (symptoms, EKGs, imaging studies, and others) required; Repeat in 4-6 hours if clinically indicated. ? Equal or Higher than 0.121 ng/mL---Abnormal. Myocardial Injury or Necrosis Likely ? Biotin has been reported to cause a negative bias, interpret results relative to patient's use of biotin. ? Lab Interpretation Normal (test code = 47293-2) [facility] NOW RAPID TESTING)2020-11-22 19:49:57 Test Item Value Reference Range Interpretation Comments SARS-CoV-2 Rapid ID NOW Not Detected Not Detected (test code = 45557-6) PAULA (test code = PAULA) ID NOW COVID-19 Assay is an isothermal nucleic acid amplification test intended for the qualitative detection of nucleic acid from SARS-CoV-2 viral RNA in nasopharyngeal (RECORDS SPECIALIST) specimens. It is used under Emergency Use Authorization (EUA) by FDA. The limit of detection (LOD) of the assay is 125 Genome Equivalents/mL. A positive result is indicative of the presence of SARS-CoV-2 RNA. ?Clinical correlation with patient history and other diagnostic information is necessary to determine patient infection status. A negative (Not Detected) result does not preclude SARS-CoV-2 infection. In patients with clinical symptoms and other tests that are consistent with SARS-CoV-2 infection, negative results should be treated as presumptive negative and a new specimen should be tested with alternative PCR molecular test. Invalid: Please collect a new specimen for repeat patient testing if clinically indicated. Lab Interpretation Normal (test code = 68328-7) [facility] [id number] 19:43:00 Test Item Value Reference Range Interpretation Comments POCT PREG (test code = 1605) negative On board controls acceptable with present C Line (test code = 3574) POCT PREG LOT # (test code = 3575) [id number] POCT PREG TEST DATE (test 05-25-2022 code = 3576) Lab Interpretation (test code = Normal 33040-3) [facility] [id number] 15:52:28 Test Item Value Reference Range Interpretation Comments TROPONIN I (test 0.047 ng/mL See_Comment H [Automated code = 3496411293) message] The system which generated this result transmitted reference range : <=0.034. The reference range was not used to interpret this result as normal/abnormal . PAULA (test code = Equal or Less than PAULA) 0.034 ng/ml---Normal ?Note: Cardiac troponin begins to rise 3-4 hours after the onset of ischemia. Repeat in 4-6 hours if the sample was drawn within 3-4 hours of the onset of the symptom and found normal. Between 0.035 and 0.120 ng/mL--- Borderline. Questionable myocardial injury or necrosis ? ?Note: Serial measurement may be necessary to confirm or exclude the diagnosis of myocardial injury or necrosis; Clinical correlation (symptoms, EKGs, imaging studies, and others) required; Repeat in 4-6 hours if clinically indicated. ? Equal or Higher than 0.121 ng/mL---Abnormal. Myocardial Injury or Necrosis Likely ? Biotin has been reported to cause a negative bias, interpret results relative to patient's use of biotin. ? Lab Interpretation Abnormal (test code = 15367-8) [facility] (IMMUNOASSAY) - COMPREHENSIVE DRUG [id number] 15:24:44 Test Item Value Reference Range Interpretation Comments AMPHET (test code = Presumptive Positive Negative A 1491799971) ANN U (test code = Negative Negative 7046592816) BENZO U (test code = Negative Negative 9704110773) Cocaine Metabolite (test Negative Negative code = 0861739881) METHADONE (test code = Negative Negative 2088453531) OPIATES (test code = Negative Negative 3165889033) PCP (test code = Negative Negative 9438736998) THC (test code = Negative Negative 1934330969) PAULA (test code = PAULA) Urine Drug Cutoff Ranges Cocaine: ? 150 ng/mLBenzodiazepines: ? ? 200 ng/mLMethadone: ? 300 ng/mLAmphetamine: ? 1,000 ng/mLOpiates: ? 300 ng/mLCannabinoids: ?50 ng/mLPhencyclidine: ? ? ? 25 ng/mLBarbiturates: ?200 ng/mL The results are to be used only for medical (i.e., treatment) purposes. Unconfirmed screening results must not be used for non-medical purposes (e.g., employment testing, legal testing). Lab Interpretation (test Abnormal code = 18671-8) [facility]anoCK (CREATINE KINASE) + [id number] 13:16:38 Test Item Value Reference Range Interpretation Comments CK (test code = 751 U/L 33-194 H 0585377916) CK-MB (test code = 6.00 ng/mL See_Comment H [Automat ed 3066784747) message] The system which generated this result transmitted reference range : <=3.50. The reference range was not used to interpret this result as normal/abnormal . CKMB INDEX (test code 0.8 % 0.0-2.5 = 3734917569) PAULA (test code = PAULA) Biotin has been reported to cause a negative bias, interpret results relative to patient's use of biotin. Lab Interpretation Abnormal (test code = 26225-7) [facility]anoTR[facility] [id number] 13:16:38 Test Item Value Reference Range Interpretation Comments TROPONIN I (test 0.008 ng/mL See_Comment [Automated code = 4021542888) message] The system which generated this result transmitted reference range : <=0.034. The reference range was not used to interpret this result as normal/abnormal . PAULA (test code = Equal or Less than PAULA) 0.034 ng/ml---Normal ?Note: Cardiac troponin begins to rise 3-4 hours after the onset of ischemia. Repeat in 4-6 hours if the sample was drawn within 3-4 hours of the onset of the symptom and found normal. Between 0.035 and 0.120 ng/mL--- Borderline. Questionable myocardial injury or necrosis ? ?Note: Serial measurement may be necessary to confirm or exclude the diagnosis of myocardial injury or necrosis; Clinical correlation (symptoms, EKGs, imaging studies, and others) required; Repeat in 4-6 hours if clinically indicated. ? Equal or Higher than 0.121 ng/mL---Abnormal. Myocardial Injury or Necrosis Likely ? Biotin has been reported to cause a negative bias, interpret results relative to patient's use of biotin. ? Lab Interpretation Normal (test code = 97063-6) [facility] (IMMUNOASSAY) - COMPREHENSIVE DRUG [id number] 13:13:47 Test Item Value Reference Range Interpretation Comments ANN S (test code = Negative Negative 6473465541) BENZO S (test code = Negative Negative 2108644845) TRICYCLIC (test code = Negative Negative 7439906148) PAULA (test code = PAULA) Serum Drug Screen Cutoff Ranges Barbiturates ? ? - 3 mcg/mLBenzodiazepines ?- 50 ng/mLTCA ?- 300 ng/mL Test developed and characteristics determined by [facility] Laboratory Services. The results are to be used only for medical (i.e., treatment) purposes. Unconfirmed screening results must not be used for non-medical purposes (e.g., employment testing, legal testing). Lab Interpretation Normal (test code = 62602-9) [facility]anoURINALYSIS2021-[facility]-30 13:13:32 Test Item Value Reference Range Interpretation Comments APPEARANCE (test code = Clear Clear 1323167215) COLOR (test code = Colorless Yellow A 9376187034) PH (test code = 4.8-8.0 1674946625) SP GRAVITY (test code = 1.003-1.030 L 9915380751) GLU U QUAL (test code = Normal Normal 3617664371) BLOOD (test code = 1+ Negative A 0060577502) KETONES (test code = Negative Negative 0901640033) PROTEIN (test code = Negative Negative 2887-8) UROBILIN (test code = Normal Normal 5218630473) BILIRUBIN (test code = Negative Negative 9563127094) NITRITE (test code = Negative Negative 8663504073) LEUK JONATHON (test code = Negative Negative 5850497024) RBC/HPF (test code = See_Comment [Autom ated message] 7623503131) The system Seratis generated this result transmit bhaskar reference range : 0 - 3 HPF. The refe rence range was not u sed to interpret th is result as normal/abnormal . WBC/HPF (test code = <1 See_Comment [Autom ated message] 3054526906) The system Serat[employer] generated this result transmit bhaskar reference range : 0 - 5 HPF. The refe rence range was not u sed to interpret th is result as normal/abnormal . BACTERIA (test code = Negative Negative 1302838581) AMORPHOUS (test code = Rare Rare HPF 2075087726) Lab Interpretation (test Abnormal code = 09070-8) [facility]anoD-[id number] 13:09:19 Test Item Value Reference Interpretation Comments Range D-DIMER (test code = See_Comment [Autom ated 7562513747) message] The system which generated this result transmitted reference range : <0.50 ?g/mL (FEU). The reference range was not used to interpret this result as normal/abnormal . PAULA (test code = This test may be PAULA) used in conjunction with a clinical pretest probability (PTP) assessment model to exclude venous thromboembolism (VTE) in patients suspected of deep venous thrombosis (DVT) and pulmonary embolism (PE) A D-Dimer value less than 0.50 ?g/ml (FEU) has a negative predicative value of 96 to 100% (95% CI)and 97 to 100% (95% CI) as an aid in the diagnosis of deep vein thrombosis (DVT) and pulmonary embolism when there is low or moderate pretest probability of PE or DVT. D-Dimer values are expressed in initial fibrinogen equivalent units (FEU)" The assay results should be used with other information, including the clinical context, in forming a diagnosis. Lab Interpretation Normal (test code = 51286-6) [facility]. METABOLIC PANEL (50312)2020-11-22 13:06:21 Test Item Value Reference Range Interpretation Comments NA (test code = 139 mmol/L 135-145 9785962176) K (test code = 4.1 mmol/L 3.5-5.0 7245073965) CL (test code = 106 mmol/L 98-108 2287891673) CO2 TOTAL (test code = 20 mmol/L 23-31 L 7960182025) AGAP (test code = 2-16 5226520124) BUN (test code = 12 mg/dL 7-23 9518489997) GLUCOSE (test code = 92 mg/dL 70-110 3497613538) CREATININE (test code = 0.58 mg/dL 0.50-1.04 2684048248) TOTAL BILI (test code = 0.2 mg/dL 0.1-1.1 1152850319) CALCIUM (test code = 9.4 mg/dL 8.6-10.6 2726318383) T PROTEIN (test code = 7.6 g/dL 6.3-8.2 8820353577) ALBUMIN (test code = 4.5 g/dL 3.5-5.0 3853629432) ALK PHOS (test code = 70 U/L 34-122 2446122112) ALTv (test code = 14 U/L 5-35 1742-6) AST(SGOT) (test code = 29 U/L 13-40 6370677478) eGFR (test code = mL/min/1.73m2 7817626858) PAULA (test code = PAULA) Association of Glomerular Filtration Rate (GFR) and Staging of Kidney Disease* + --+ --+ ------+| GFR (mL/min/1.73 m2) ?| With Kidney Damage ?| ?Without Kidney Damage+ --------+ --------+ +| ?>90 ?| ?Stage one ?| ? Normal ?+ ---+ ---+ -------+| ?60-89 ?| ?Stage two ?| ? Decreased GFR ? + --+ --+ ------+| ?30-59 ?| ?Stage three ?| ? Stage three ? + --+ --+ ------+| ?15-29 ?| ?Stage four ? | ? Stage four ?+ ---+ ---+ -------+| ?<15 (or dialysis) ? ?| ?Stage five ? | ? Stage five ?+ ---+ ---+ -------+ *Each stage assumes the associated GFR level has been in effect for at least three months. ?Stages 1 to 5, with or without kidney disease, indicate chronic kidney disease. Notes: Determination of stages one and two (with eGFR >59mL/min/1.73 m2) requires estimation of kidney damage for at least three months as defined by structural or functional abnormalities of the kidney, manifested by either:Pathological abnormalities or Markers of kidney damage (including abnormalities in the composition of the blood or urine or abnormalities in imaging tests). Lab Interpretation Abnormal (test code = 35712-4) [facility]anoETHANOL2021-[facility] 13:06:21 Test Item Value Reference Range Interpretation Comments ALCOHOL (test code = 112 mg/dL 2009847785) PAULA (test code = Toxic Greater than or PAULA) equal to 80 mg/dL. NOTE: Whole blood values are approximately 10% to 15% lower than serum and plasma. [facility]anoLIPASE2021-[facility] 13:06:21 Test Item Value Reference Range Interpretation Comments LIPASE (test code = 5831482472) 118 U/L 0-220 Lab Interpretation (test code = Normal 59727-4) [facility]anoCB WITH [id number] 13:00:59 Test Item Value Reference Range Interpretation Comments WBC (test code = See_Comment [Automated message] 6690-2) The system Seratis generated this result transmitted ref erence range: 4.30 - 1 1.10 10*3/?L. The re ference range was not u sed to interpret this result as normal/abnor mal. RBC (test code = See_Comment [Automated message] 789-8) The system Serat[employer] generated this result transmitted ref erence range: 3.93 - 5 .25 10*6/?L. The re ference range was not u sed to interpret this result as normal/abnor mal. HGB (test code = 13.2 g/dL 11.6-15.0 718-7) HCT (test code = 40.7 % 35.7-45.2 4544-3) MCV (test code = 92.1 fL 80.6-95.5 787-2) MCH (test code = 29.9 pg 25.9-32.8 785-6) MCHC (test code = 32.4 g/dL 31.6-35.1 786-4) RDW-SD (test code 44.0 fL 39.0-49.9 = 23381-9) RDW-CV (test code 13.0 % 12.0-15.5 = 788-0) PLT (test code = See_Comment [Automated message] 777-3) The system Serat[employer] generated this result transmitted ref erence range: 166 - 35 8 10*3/?L. The re ference range was not u sed to interpret this result as normal/abnor mal. MPV (test code = 9.9 fL 9.5-12.9 46888-6) NRBC/100 WBC (test See_Comment [Automat ed message] code = 1367436638) The syste m which generated this result transmitted ref erence range: 0.0 - 10 .0 /100 WBCs. The refer ence range was not u sed to interpret this result as normal/abnor mal. NRBC x10^3 (test <0.01 See_Comment [Automated message] code = 2490259229) The syste m which generated this result transmitted ref erence range: 10*3/?L. The reference range was not used to interpr et this result as normal/abnormal . GRAN MAT (NEUT) % 57.8 % (test code = 770-8) IMM GRAN % (test 0.30 % code = 5366826061) LYMPH % (test code 31.0 % = 736-9) MONO % (test code 8.7 % = 5905-5) EOS % (test code = 1.5 % 713-8) BASO % (test code 0.7 % = 706-2) GRAN MAT 3.37 10*3/uL 1.88-7.09 x10^3(ANC) (test code = 3257574457) IMM GRAN x10^3 <0.03 0.00-0.06 (test code = 9745871465) LYMPH x10^3 (test 1.81 10*3/uL 1.32-3.29 code = 731-0) MONO x10^3 (test 0.51 10*3/uL 0.33-0.92 code = 742-7) EOS x10^3 (test 0.09 10*3/uL 0.03-0.39 code = 711-2) BASO x10^3 (test 0.04 10*3/uL 0.01-0.07 code = 704-7) [facility] PAN[facility] 2 [id number] 11:58:10 Test Item Value Reference Range Interpretation Comments AMPHET (test code = Negative Negative 4495050290) ANN U (test code = Negative Negative 5273375413) BENZO U (test code = Negative Negative 5319536225) Cocaine Metabolite (test Negative Negative code = 0470954286) METHADONE (test code = Negative Negative 4838856385) OPIATES (test code = Negative Negative 4334136533) PCP (test code = Negative Negative 2572468473) THC (test code = Negative Negative 8260118012) PAULA (test code = PAULA) Urine Drug Cutoff Ranges Cocaine: ? 150 ng/mLBenzodiazepines: ? ? 200 ng/mLMethadone: ? 300 ng/mLAmphetamine: ? 1,000 ng/mLOpiates: ? 300 ng/mLCannabinoids: ?50 ng/mLPhencyclidine: ? ? ? 25 ng/mLBarbiturates: ?200 ng/mL The results are to be used only for medical (i.e., treatment) purposes. Unconfirmed screening results must not be used for non-medical purposes (e.g., employment testing, legal testing). Lab Interpretation (test Normal code = 41866-3) [facility]anoUrinalysis2021-04-29 10:57:49 Test Item Value Reference Range Interpretation Comments APPEARANCE (test code = Clear Clear 6484541546) COLOR (test code = Colorless Yellow A 0022534582) PH (test code = 4.8-8.0 8162406617) SP GRAVITY (test code = 1.003-1.030 7312501411) GLU U QUAL (test code = Normal Normal 2857229824) BLOOD (test code = 2+ Negative A 0662018860) KETONES (test code = Negative Negative 4629139024) PROTEIN (test code = Negative Negative 2887-8) UROBILIN (test code = Normal Normal 8803145741) BILIRUBIN (test code = Negative Negative 3705438852) NITRITE (test code = Negative Negative 3769695649) LEUK JONATHON (test code = Negative Negative 5500945047) RBC/HPF (test code = See_Comment H [Autom ated message] 1580909571) The system Serat[employer] generated this result transmit bhaskar reference range : 0 - 3 HPF. The refe rence range was not u sed to interpret th is result as normal/abnormal . WBC/HPF (test code = <1 See_Comment [Autom ated message] 5035326716) The system Seratis generated this result transmit bhaskar reference range : 0 - 5 HPF. The refe rence range was not u sed to interpret th is result as normal/abnormal . BACTERIA (test code = Negative Negative 0524496042) SQ EPITH (test code = <1 See_Comment [Auto mated message] 1019743618) The system Seratis generated this result transmit bhaskar reference range : <=2 HPF. The refere nce range was not u sed to interpret th is result as normal/abnormal . ASCORBIC ACID (test code Negative = 7925928287) Lab Interpretation (test Abnormal code = 38235-0) [facility]anoTROPONIN [id number] 10:29:23 Test Item Value Reference Range Interpretation Comments TROPONIN I (test 0.005 ng/mL See_Comment [Automated code = 6543480163) message] The system which generated this result transmitted reference range : <=0.034. The reference range was not used to interpret this result as normal/abnormal . PAULA (test code = Equal or Less than PAULA) 0.034 ng/ml---Normal ?Note: Cardiac troponin begins to rise 3-4 hours after the onset of ischemia. Repeat in 4-6 hours if the sample was drawn within 3-4 hours of the onset of the symptom and found normal. Between 0.035 and 0.120 ng/mL--- Borderline. Questionable myocardial injury or necrosis ? ?Note: Serial measurement may be necessary to confirm or exclude the diagnosis of myocardial injury or necrosis; Clinical correlation (symptoms, EKGs, imaging studies, and others) required; Repeat in 4-6 hours if clinically indicated. ? Equal or Higher than 0.121 ng/mL---Abnormal. Myocardial Injury or Necrosis Likely ? Biotin has been reported to cause a negative bias, interpret results relative to patient's use of biotin. ? Lab Interpretation Normal (test code = 26467-7) [facility]anoPOCT [id number] 10:12:00 Test Item Value Reference Range Interpretation Comments POCT PREG (test code = 1605) negative On board controls acceptable with C present Line (test code = 3574) POCT PREG LOT # (test code = 3575) HCG Lab Interpretation (test code = Normal 77422-0) [facility]anoTroponin [id number] 08:15:07 Test Item Value Reference Range Interpretation Comments TROPONIN I (test 0.007 ng/mL See_Comment [Automated code = 8365947397) message] The system which generated this result transmitted reference range : <=0.034. The reference range was not used to interpret this result as normal/abnormal . PAULA (test code = Equal or Less than PAULA) 0.034 ng/ml---Normal ?Note: Cardiac troponin begins to rise 3-4 hours after the onset of ischemia. Repeat in 4-6 hours if the sample was drawn within 3-4 hours of the onset of the symptom and found normal. Between 0.035 and 0.120 ng/mL--- Borderline. Questionable myocardial injury or necrosis ? ?Note: Serial measurement may be necessary to confirm or exclude the diagnosis of myocardial injury or necrosis; Clinical correlation (symptoms, EKGs, imaging studies, and others) required; Repeat in 4-6 hours if clinically indicated. ? Equal or Higher than 0.121 ng/mL---Abnormal. Myocardial Injury or Necrosis Likely ? Biotin has been reported to cause a negative bias, interpret results relative to patient's use of biotin. ? Lab Interpretation Normal (test code = 58129-2) [facility]OVID[facility] (ID NOW RAPID TESTING)2020-10-22 08:08:44 Test Item Value Reference Range Interpretation Comments SARS-CoV-2 Rapid ID NOW Not Detected Not Detected (test code = 93544-3) PAULA (test code = PAULA) ID NOW COVID-19 Assay is an isothermal nucleic acid amplification test intended for the qualitative detection of nucleic acid from SARS-CoV-2 viral RNA in nasopharyngeal (RECORDS SPECIALIST) specimens. It is used under Emergency Use Authorization (EUA) by FDA. The limit of detection (LOD) of the assay is 125 Genome Equivalents/mL. A positive result is indicative of the presence of SARS-CoV-2 RNA. ?Clinical correlation with patient history and other diagnostic information is necessary to determine patient infection status. A negative (Not Detected) result does not preclude SARS-CoV-2 infection. In patients with clinical symptoms and other tests that are consistent with SARS-CoV-2 infection, negative results should be treated as presumptive negative and a new specimen should be tested with alternative PCR molecular test. Invalid: Please collect a new specimen for repeat patient testing if clinically indicated. Lab Interpretation Normal (test code = 02092-4) [facility] (NA, K, CL, CO2, GLUCOSE, BUN, CREATININE, CA)2020-10-22 08:00:24 Test Item Value Reference Range Interpretation Comments NA (test code = 136 mmol/L 135-145 2429710767) K (test code = 5.1 mmol/L 3.5-5.0 H Slight 3328517049) hemolysis CL (test code = 107 mmol/L 98-108 7300670824) CO2 TOTAL (test code 22 mmol/L 23-31 L = 4911937404) AGAP (test code = 2-16 9468526641) BUN (test code = 10 mg/dL 7-23 Slight 1780928603) hemolysis GLUCOSE (test code = 107 mg/dL 70-110 2199466662) CREATININE (test code 0.56 mg/dL 0.50-1.04 = 0808806944) CALCIUM (test code = 8.6 mg/dL 8.6-10.6 1975667829) eGFR (test code = mL/min/1.73m2 8549182507) PAULA (test code = PAULA) Association of Glomerular Filtration Rate (GFR) and Staging of Kidney Disease* + -----+ --------+ +| GFR (mL/min/1.73 m2) ?| With Kidney Damage ?| ?Without Kidney Damage+ +------- +---- --+| ?>90 ?| ?Stage one ?| ? Normal ?+ ------+ ---------+--------- +| ?60-89 ?| ?Stage two ?| ? Decreased GFR ? + -----+ --------+ +| ?30-59 ?| ?Stage three ?| ? Stage three ? + -----+ --------+ +| ?15-29 ?| ?Stage four ? | ? Stage four ?+ ------+ ---------+--------- +| ?<15 (or dialysis) ? ?| ?Stage five ? | ? Stage five ?+ ------+ ---------+--------- + *Each stage assumes the associated GFR level has been in effect for at least three months. ?Stages 1 to 5, with or without kidney disease, indicate chronic kidney disease. Notes: Determination of stages one and two (with eGFR >59mL/min/1.73 m2) requires estimation of kidney damage for at least three months as defined by structural or functional abnormalities of the kidney, manifested by either:Pathological abnormalities or Markers of kidney damage (including abnormalities in the composition of the blood or urine or abnormalities in imaging tests). Lab Interpretation Abnormal (test code = 50764-7) [facility]ano[facility] Panel (ALB, T.PRO, BILI T, BU/BC, ALT, AST, ALK PHOS)2020-10-22 08:00:24 Test Item Value Reference Range Interpretation Comments TOTAL BILI (test code = 5891239868) 0.3 mg/dL 0.1-1.1 BILI UNCON (test code = 1497490648) 0.1 mg/dL 0.1-1.1 BILI CONJ (test code = 3021509151) 0.0 mg/dL 0.0-0.3 T PROTEIN (test code = 4915129677) 7.0 g/dL 6.3-8.2 ALBUMIN (test code = 5194413788) 3.9 g/dL 3.5-5.0 ALK PHOS (test code = 2399278783) 112 U/L 34-122 ALTv (test code = 1742-6) 292 U/L 5-35 H AST(SGOT) (test code = 4329223412) 322 U/L 13-40 H Lab Interpretation (test code = Abnormal 09898-3) [facility] [id number] 08:00:24 Test Item Value Reference Range Interpretation Comments ALCOHOL (test code = 67 mg/dL 8629424607) PAULA (test code = Toxic Greater than or PAULA) equal to 80 mg/dL. NOTE: Whole blood values are approximately 10% to 15% lower than serum and plasma. [facility]anoLip[facility] [id number] 08:00:24 Test Item Value Reference Range Interpretation Comments LIPASE (test code = 9583221938) 165 U/L 0-220 Lab Interpretation (test code = Normal 82568-9) [facility]anoCBC with [id number] 07:55:00 Test Item Value Reference Range Interpretation Comments WBC (test code = See_Comment [Automated 7259-2) message] The sy stem which generated this result transmitted reference range : 4.30 - 11.10 10*3/?L. The reference range was not used to interpret this result as normal/abnormal . RBC (test code = See_Comment [Automated 247-3) message] The sy stem which generated this result transmitted reference range : 3.93 - 5.25 10*6/?L. The reference range was not used to interpret this result as normal/abnormal . HGB (test code = 13.1 g/dL 11.6-15.0 718-7) HCT (test code = 38.8 % 35.7-45.2 4544-3) MCV (test code = 90.4 fL 80.6-95.5 787-2) MCH (test code = 30.5 pg 25.9-32.8 785-6) MCHC (test code = 33.8 g/dL 31.6-35.1 786-4) RDW-SD (test code = 43.8 fL 39.0-49.9 72241-3) RDW-CV (test code = 13.2 % 12.0-15.5 788-0) PLT (test code = See_Comment [Automated 777-3) message] The sy stem which generated this result transmitted reference range : 166 - 358 10*3/ ?L. The reference r micah was not used to interpret this result as normal/abnormal . MPV (test code = 9.2 fL 9.5-12.9 L 60138-9) NRBC/100 WBC (test See_Comment [Automat ed code = 8138580209) message] The system which generated this result transmitted reference range : 0.0 - 10.0 /100 WBCs. The refer ence range was not u sed to interpret th is result as normal/abnormal . NRBC x10^3 (test code <0.01 See_Comment [Auto mated = 9994857472) message] The s ystem which generated this result transmitted reference range : 10*3/?L. The reference range was not used to interpret this result as normal/abnormal . GRAN MAT (NEUT) % 64.0 % (test code = 770-8) IMM GRAN % (test code 0.40 % = 3265225383) LYMPH % (test code = 24.3 % 736-9) MONO % (test code = 8.9 % 5905-5) EOS % (test code = 1.4 % 713-8) BASO % (test code = 1.0 % 706-2) GRAN MAT x10^3(ANC) 3.18 10*3/uL 1.88-7.09 (test code = 0873784738) IMM GRAN x10^3 (test <0.03 0.00-0.06 code = 7381576675) LYMPH x10^3 (test code 1.21 10*3/uL 1.32-3.29 L = 731-0) MONO x10^3 (test code 0.44 10*3/uL 0.33-0.92 = 742-7) EOS x10^3 (test code = 0.07 10*3/uL 0.03-0.39 711-2) BASO x10^3 (test code 0.05 10*3/uL 0.01-0.07 = 704-7) Lab Interpretation Abnormal (test code = 37393-1) [facility] 2 [id number] 18:12:05 No acute cardiopulmonary abnormality. Preliminary Report Dictated by Resident: Kevyn Mills MD., have reviewed this study and agree with theabove report.EXAM: XR CHEST 2 VW 10/15/2020 8:46 AM HISTORY: 40 years-old Female with CP COMPARISON: Chest x-ray 09/25/2020 FINDINGS: Lungs: The lungs are clear. No focal opacities. No pleural abnormalitiesare detected. Heart/Mediastinum: The cardiomediastinal silhouette is normal in size. Musculoskeletal: Lower cervical spine uncovertebral and facet arthropathywith mild spondylosis are partially visualized. [facility], Radiant Results Inft User - 10/15/2020 1:13 PM CDTEXAM: XR CHEST 2 VW 10/15/2020 8:46 AMHISTORY: 40 years- old Female with CP COMPARISON: Chest x-ray 09/25/2020FINDINGS:Lungs: The lungs are clear. No focal opacities. No pleural abnormalitiesare detected.Heart/Mediastinum: The cardiomediastinal silhouette is normal in size.Musculoskeletal: Lower cervical spine uncovertebral and facet arthropathywith mild spondylosis are partially visualized.IMPRESSIONNo acute cardiopulmonary abnormality.Preliminary Report Dictated by Resident: Kevyn Parada MD., have reviewed this study and agree with theabove report.[facility]anoCREATINE [id number] 17:21:00 Test Item Value Reference Range Interpretation Comments CK (test code = 7628625413) 765 U/L 33-194 H Lab Interpretation (test code = Abnormal 57566-0) [facility]anoLipase [id number] 17:20:59 Test Item Value Reference Range Interpretation Comments LIPASE (test code = 8984632623) 135 U/L 0-220 Lab Interpretation (test code = Normal 09282-6) [facility]anoTroponin [id number] 16:25:05 Test Item Value Reference Range Interpretation Comments TROPONIN I (test 0.007 ng/mL See_Comment [Automated code = 0052445719) message] The system which generated this result transmitted reference range : <=0.034. The reference range was not used to interpret this result as normal/abnormal . PAULA (test code = Equal or Less than PAULA) 0.034 ng/ml---Normal ?Note: Cardiac troponin begins to rise 3-4 hours after the onset of ischemia. Repeat in 4-6 hours if the sample was drawn within 3-4 hours of the onset of the symptom and found normal. Between 0.035 and 0.120 ng/mL--- Borderline. Questionable myocardial injury or necrosis ? ?Note: Serial measurement may be necessary to confirm or exclude the diagnosis of myocardial injury or necrosis; Clinical correlation (symptoms, EKGs, imaging studies, and others) required; Repeat in 4-6 hours if clinically indicated. ? Equal or Higher than 0.121 ng/mL---Abnormal. Myocardial Injury or Necrosis Likely ? Biotin has been reported to cause a negative bias, interpret results relative to patient's use of biotin. ? Lab Interpretation Normal (test code = 93776-3) [facility]anoN-TERMINAL [id number] 16:25:04 Test Item Value Reference Range Interpretation Comments NT-proBNP (test code 178 pg/mL See_Comment H [Autom ated = 1736573065) message] The system which generated this result transmitted reference range : <=125. The reference range was not used to interpret this result as normal/abnormal . PAULA (test code = PAULA) Biotin has been reported to cause a negative bias, interpret results relative to patient's use of biotin. Lab Interpretation Abnormal (test code = 51787-5) [facility] (NA, K, CL, CO2, GLUCOSE, BUN, CREATININE, CA)2020-10-15 16:13:24 Test Item Value Reference Range Interpretation Comments NA (test code = 135 mmol/L 135-145 9597330261) K (test code = 4.0 mmol/L 3.5-5.0 Slight 0866282090) hemolysis CL (test code = 109 mmol/L 98-108 H 0849629103) CO2 TOTAL (test code 21 mmol/L 23-31 L = 1888073596) AGAP (test code = 2-16 4107691562) BUN (test code = 11 mg/dL 7-23 Slight 6187651398) hemolysis GLUCOSE (test code = 98 mg/dL 70-110 6500860713) CREATININE (test code 0.54 mg/dL 0.50-1.04 = 4943134964) CALCIUM (test code = 8.1 mg/dL 8.6-10.6 L 4969488217) eGFR (test code = mL/min/1.73m2 6589451352) PAULA (test code = PAULA) Association of Glomerular Filtration Rate (GFR) and Staging of Kidney Disease* + -----+ --------+ +| GFR (mL/min/1.73 m2) ?| With Kidney Damage ?| ?Without Kidney Damage+ +------- +---- --+| ?>90 ?| ?Stage one ?| ? Normal ?+ ------+ ---------+--------- +| ?60-89 ?| ?Stage two ?| ? Decreased GFR ? + -----+ --------+ +| ?30-59 ?| ?Stage three ?| ? Stage three ? + -----+ --------+ +| ?15-29 ?| ?Stage four ? | ? Stage four ?+ ------+ ---------+--------- +| ?<15 (or dialysis) ? ?| ?Stage five ? | ? Stage five ?+ ------+ ---------+--------- + *Each stage assumes the associated GFR level has been in effect for at least three months. ?Stages 1 to 5, with or without kidney disease, indicate chronic kidney disease. Notes: Determination of stages one and two (with eGFR >59mL/min/1.73 m2) requires estimation of kidney damage for at least three months as defined by structural or functional abnormalities of the kidney, manifested by either:Pathological abnormalities or Markers of kidney damage (including abnormalities in the composition of the blood or urine or abnormalities in imaging tests). Lab Interpretation Abnormal (test code = 63045-5) [facility]ano[facility]atic Function Panel (ALB, T.PRO, BILI T, BU/BC, ALT, AST, ALK PHOS)2020-10-15 16:13:24 Test Item Value Reference Range Interpretation Comments TOTAL BILI (test code = 5133824974) 0.3 mg/dL 0.1-1.1 BILI UNCON (test code = 5359384878) 0.1 mg/dL 0.1-1.1 BILI CONJ (test code = 7292210849) 0.0 mg/dL 0.0-0.3 T PROTEIN (test code = 7585304785) 6.0 g/dL 6.3-8.2 L ALBUMIN (test code = 2242704959) 3.2 g/dL 3.5-5.0 L ALK PHOS (test code = 2467866790) 59 U/L 34-122 ALTv (test code = 1742-6) 74 U/L 5-35 H AST(SGOT) (test code = 8944717720) 100 U/L 13-40 H Lab Interpretation (test code = Abnormal 27899-6) [facility]anoPregnancy Test, [id number] 16:12:38 Test Item Value Reference Range Interpretation Comments PREG SERUM (test code Negative = 1379282228) PAULA (test code = PAULA) Less than 10 IU/L. ?If low titer or ectopic is suspected, resubmit specimen in 48-72 hours. [facility]anoTroponin [id number] 14:29:39TROPONIN IComment: Possible Contaminated specimen. ?Talked to Dr Mai to reorder Troponin and BNP. This is a corrected result. ?Previous result was 0.007 ng/mL on 10/15/2020 at 0903 [facility] SERVICESEqual or Less than 0.034 ng/ml---Normal ?Note: Cardiac troponin begins to rise 3-4 hours afterthe onset of ischemia. Repeat in 4-6 hours if the sample was drawn within 3-4 hours of the onset of the symptom and found normal. Between 0.035 and 0.120 ng/mL--- Borderline. Questionable myocardial injury or necrosis ? ?Note: Serial measurement may be necessary to confirm or exclude the diagnosis ofmyocardial injury or necrosis; Clinical correlation (symptoms, EKGs, imaging studies, and others) required; Repeat in 4-6 hours if clinically indicated. ? Equal or Higher than 0.121 ng/mL---Abnormal. Myocardial Injury or Necrosis Likely ? Biotin has been reported to cause a negative bias,interpret results relative to patient's use of biotin. ?[facility] N-TERMINAL [id number] 14:28:48NT-proBNPComment: Possible Contaminated specimen. ?Talked to Dr Mai to reorder Troponin and BNP. This is a corrected result. ?Previous result was 41 pg/mL on 10/15/2020 at 0904 [facility] SERVICESBiotin has been reported to cause a negative bias, interpret results relative to patient's use of biotin.[facility]anoLipase [id number] 14:09:09LIPASEComment: Possible contamination of specimen. Dr Mai to reorder for recollection. This is a corrected result. ?Previous result was 16 U/L on 10/15/2020 at 0852 [facility] SERVICESUnSaint Camillus Medical CenterCREATINE [id number] 14:08:28CKComment: Possible contamination of specimen. Dr Mai to reorder for recollection. This is a corrected result. ?Previous result was 230 U/L on 10/15/2020 at 0852 [facility] SERVICESUnSaint Camillus Medical CenterCT HEAD WO CONTRAST 2020-10-15 13:47:51 No acute intracranial hemorrhage or mass effect. CT HEAD WO CONTRAST HISTORY: Mental status change, unknown cause , chest pain, htn, nausea,blurry vision x 1 day. COMPARISON: 04/11/20. ? TECHNIQUE:Routine unenhanced brain CT. ? FINDINGS: No acute intracranial hemorrhage, extracerebral fluid collection, midlineshift or mass effect. No acute transcortical infarction. Left inferior basal ganglia dilatedperivascular space.Ventricles are normal. Cerebral volume is age appropriate. No depressed calvarial fracture. Visualized paranasal sinuses are essentially clear. [facility], Radiant Results Inft User- 10/15/2020 8:48 AM CDTCT HEAD WO CONTRASTHISTORY: Mental status change, unknown cause , chest pain, htn, nausea,blurry vision x 1 day. COMPARISON: 04/11/20. TECHNIQUE: Routine unenhanced brain CT. FINDINGS:No acute intracranial hemorrhage, extracerebral fluid collection, midlineshift or mass effect. No acute transcortical infarction. Left inferior basal ganglia dilatedperivascular space.Ventricles are normal. Cerebral volume is age appropriate. No depressed calvarial fracture. Visualized paranasal sinuses are essentially clear. IMPRESSIONNo acute intracranial hemorrhage or mass effect. [facility]anoXR CHEST 1 [id number] 14:06:46 No acute cardiopulmonary process. Preliminary Report Dictated by Resident: Hany Jerome MD., have reviewed this study and agree with theabove report.EXAM: XR CHEST 1 VW HISTORY: chest pain COMPARISON: Chest radiograph on 09/12/2020 TECHNIQUE: AP view radiograph of the chest FINDINGS: The lungs are clear. No pleural effusion or pneumothorax. The heart size is normal. Noacute osseous abnormality is identified. [facility], Radiant Results Inft User - 10/13/2020 9:07 AM CDTEXAM: XR CHEST 1 VWHISTORY: chest pain COMPARISON: Chest radiograph on 09/12/2020 TECHNIQUE: AP view radiograph of the chestFINDINGS:The lungs are clear. No pleural effusion or pneumothorax. The heart sizeis normal. No acute osseous abnormality is identified.IMPRESSIONNo acute cardiopulmonary process.Preliminary Report Dictated by Resident: Hany Willard MD., have reviewed this study and agree with theabove report.[facility]anoCOMP. METABOLIC PANEL ([id number]) 2020-10-13 11:48:17 Test Item Value Reference Range Interpretation Comments NA (test code = 137 mmol/L 135-145 3331256171) K (test code = 4.2 mmol/L 3.5-5.0 Slight 0870610398) hemolysis CL (test code = 110 mmol/L 98-108 H 5408761848) CO2 TOTAL (test code 18 mmol/L 23-31 L = 0947030290) AGAP (test code = 2-16 3846787049) BUN (test code = 13 mg/dL 7-23 Slight 2698130888) hemolysis GLUCOSE (test code = 104 mg/dL 70-110 3652506919) CREATININE (test code 0.63 mg/dL 0.50-1.04 = 9087861635) TOTAL BILI (test code 0.5 mg/dL 0.1-1.1 = 7409692487) CALCIUM (test code = 8.1 mg/dL 8.6-10.6 L 0952430240) T PROTEIN (test code 7.0 g/dL 6.3-8.2 = 0690151711) ALBUMIN (test code = 3.8 g/dL 3.5-5.0 1234955860) ALK PHOS (test code = 55 U/L 34-122 Slight 8664973141) hemolysis ALTv (test code = 49 U/L 5-35 H 1742-6) AST(SGOT) (test code 72 U/L 13-40 H Slight = 5725456931) hemolysis eGFR (test code = mL/min/1.73m2 3780618840) PAULA (test code = PAULA) Association of Glomerular Filtration Rate (GFR) and Staging of Kidney Disease* + -----+ --------+ +| GFR (mL/min/1.73 m2) ?| With Kidney Damage ?| ?Without Kidney Damage+ +------- +---- --+| ?>90 ?| ?Stage one ?| ? Normal ?+ ------+ ---------+--------- +| ?60-89 ?| ?Stage two ?| ? Decreased GFR ? + -----+ --------+ +| ?30-59 ?| ?Stage three ?| ? Stage three ? + -----+ --------+ +| ?15-29 ?| ?Stage four ? | ? Stage four ?+ ------+ ---------+--------- +| ?<15 (or dialysis) ? ?| ?Stage five ? | ? Stage five ?+ ------+ ---------+--------- + *Each stage assumes the associated GFR level has been in effect for at least three months. ?Stages 1 to 5, with or without kidney disease, indicate chronic kidney disease. Notes: Determination of stages one and two (with eGFR >59mL/min/1.73 m2) requires estimation of kidney damage for at least three months as defined by structural or functional abnormalities of the kidney, manifested by either:Pathological abnormalities or Markers of kidney damage (including abnormalities in the composition of the blood or urine or abnormalities in imaging tests). Lab Interpretation Abnormal (test code = 12070-8) [facility]anoDrug Screen [id number] 11:42:55 Test Item Value Reference Range Interpretation Comments AMPHET (test code = Presumptive Positive Negative A 1747934504) Cocaine Metabolite (test Negative Negative code = 3824022568) OPIATES (test code = Presumptive Positive Negative A 0012000037) THC (test code = Negative Negative 2271489757) PAULA (test code = PAULA) Urine Drug Cutoff Ranges Amphetamine: ? 1,000 ng/mLCocaine: ? 150 ng/mLOpiates: ? 300 ng/mLCannabinoids: ?50 ng/mL The results are to be used only for medical (i.e., treatment) purposes. Unconfirmed screening results must not be used for non-medical purposes (e.g., employment testing, legal testing). Lab Interpretation (test Abnormal code = 39867-9) [facility]anoDR[facility] SCREEN PANEL 2 [id number] 11:42:35 Test Item Value Reference Range Interpretation Comments AMPHET (test code = Presumptive Positive Negative A 7498501806) ANN U (test code = Negative Negative 0328870587) BENZO U (test code = Negative Negative 6377551036) Cocaine Metabolite (test Negative Negative code = 5715875706) METHADONE (test code = Negative Negative 4888379368) OPIATES (test code = Presumptive Positive Negative A 7740455194) PCP (test code = Negative Negative 8356316795) THC (test code = Negative Negative 0829359565) PAULA (test code = PAULA) Urine Drug Cutoff Ranges Cocaine: ? 150 ng/mLBenzodiazepines: ? ? 200 ng/mLMethadone: ? 300 ng/mLAmphetamine: ? 1,000 ng/mLOpiates: ? 300 ng/mLCannabinoids: ?50 ng/mLPhencyclidine: ? ? ? 25 ng/mLBarbiturates: ?200 ng/mL The results are to be used only for medical (i.e., treatment) purposes. Unconfirmed screening results must not be used for non-medical purposes (e.g., employment testing, legal testing). Lab Interpretation (test Abnormal code = 28338-0) [facility] PlanoD-[id number] 11:32:36 Test Item Value Reference Interpretation Comments Range D-DIMER (test code = See_Comment [Autom ated 0656717126) message] The system which generated this result transmitted reference range : <0.50 ?g/mL (FEU). The reference range was not used to interpret this result as normal/abnormal . PAULA (test code = This test may be PAULA) used in conjunction with a clinical pretest probability (PTP) assessment model to exclude venous thromboembolism (VTE) in patients suspected of deep venous thrombosis (DVT) and pulmonary embolism (PE) A D-Dimer value less than 0.50 ?g/ml (FEU) has a negative predicative value of 96 to 100% (95% CI)and 97 to 100% (95% CI) as an aid in the diagnosis of deep vein thrombosis (DVT) and pulmonary embolism when there is low or moderate pretest probability of PE or DVT. D-Dimer values are expressed in initial fibrinogen equivalent units (FEU)" The assay results should be used with other information, including the clinical context, in forming a diagnosis. Lab Interpretation Normal (test code = 78497-6) [facility]anoURINALYSIS2021-04-20 11:29:49 Test Item Value Reference Range Interpretation Comments APPEARANCE (test code = Clear Clear 9199642784) COLOR (test code = Straw Yellow A 6936409025) PH (test code = 4.8-8.0 5883797074) SP GRAVITY (test code = 1.003-1.030 1000708410) GLU U QUAL (test code = Normal Normal 8933329037) BLOOD (test code = Negative Negative 1617304272) KETONES (test code = Negative Negative 2895333851) PROTEIN (test code = Negative Negative 2887-8) UROBILIN (test code = Normal Normal 7810891501) BILIRUBIN (test code = Negative Negative 9354070229) NITRITE (test code = Negative Negative 5928924098) LEUK JONATHON (test code = Negative Negative 9050041631) RBC/HPF (test code = <1 See_Comment [Autom ated message] 1172246196) The system [employer] generated this result transmitted ref erence range: 0 - 3 HP F. The reference range was not used to int erpret this result as normal/abnormal . WBC/HPF (test code = <1 See_Comment [Autom ated message] 4055262267) The system [employer] generated this result transmitted ref erence range: 0 - 5 HP F. The reference range was not used to int erpret this result as normal/abnormal . BACTERIA (test code = Few Negative A 6923508615) SQ EPITH (test code = See_Comment [Auto mated message] 9196756636) The system [employer] generated this result transmitted ref erence range: <=2 HPF. The reference range was not used to int erpret this result as normal/abnormal . Lab Interpretation (test Abnormal code = 05543-9) [facility]anoPOCT [id number] 11:13:00 Test Item Value Reference Range Interpretation Comments POCT PREG (test code = 1605) negative On board controls acceptable with present C Line (test code = 3574) POCT PREG LOT # (test code = 3575) [id number] POCT PREG TEST DATE (test 2022-05-25 code = 3576) Lab Interpretation (test code = Normal 37827-7) [facility]anoTHYROID STIMULATING [id number] 11:12:54 Test Item Value Reference Range Interpretation Comments TSH (test code = See_Comment H [Automated message] 7004152702) The system [employer] generated this result transmitted ref erence range: 0.45 - 4 .70 mIU/L. The refe rence range was not u sed to interpret this result as normal/abnor mal. Lab Interpretation (test Abnormal code = 21733-8) [facility]anoTroponin [id number] 10:54:13 Test Item Value Reference Range Interpretation Comments TROPONIN I (test 0.013 ng/mL See_Comment [Automated code = 9200212368) message] The system which generated this result transmitted reference range : <=0.034. The reference range was not used to interpret this result as normal/abnormal . PAULA (test code = Equal or Less than PAULA) 0.034 ng/ml---Normal ?Note: Cardiac troponin begins to rise 3-4 hours after the onset of ischemia. Repeat in 4-6 hours if the sample was drawn within 3-4 hours of the onset of the symptom and found normal. Between 0.035 and 0.120 ng/mL--- Borderline. Questionable myocardial injury or necrosis ? ?Note: Serial measurement may be necessary to confirm or exclude the diagnosis of myocardial injury or necrosis; Clinical correlation (symptoms, EKGs, imaging studies, and others) required; Repeat in 4-6 hours if clinically indicated. ? Equal or Higher than 0.121 ng/mL---Abnormal. Myocardial Injury or Necrosis Likely ? Biotin has been reported to cause a negative bias, interpret results relative to patient's use of biotin. ? Lab Interpretation Normal (test code = 33909-8) [facility]anoEthanol [id number] 10:53:52 Test Item Value Reference Range Interpretation Comments ALCOHOL (test code = <10 mg/dL 6089260657) PAULA (test code = Toxic Greater than or PAULA) equal to 80 mg/dL. NOTE: Whole blood values are approximately 10% to 15% lower than serum and plasma. [facility] with [id number] 10:49:12 Test Item Value Reference Range Interpretation Comments WBC (test code = See_Comment [Automated message] 6690-2) The system [employer] generated this result transmitted ref erence range: 4.30 - 1 1.10 10*3/?L. The re ference range was not u sed to interpret this result as normal/abnor mal. RBC (test code = See_Comment [Automated message] 789-8) The system [employer] generated this result transmitted ref erence range: 3.93 - 5 .25 10*6/?L. The re ference range was not u sed to interpret this result as normal/abnor mal. HGB (test code = 12.3 g/dL 11.6-15.0 718-7) HCT (test code = 36.9 % 35.7-45.2 4544-3) MCV (test code = 91.8 fL 80.6-95.5 787-2) MCH (test code = 30.6 pg 25.9-32.8 785-6) MCHC (test code = 33.3 g/dL 31.6-35.1 786-4) RDW-SD (test code 43.8 fL 39.0-49.9 = 06571-1) RDW-CV (test code 12.9 % 12.0-15.5 = 788-0) PLT (test code = See_Comment [Automated message] 777-3) The system [employer] h generated this result transmitted ref erence range: 166 - 35 8 10*3/?L. The re ference range was not u sed to interpret this result as normal/abnor mal. MPV (test code = 9.5 fL 9.5-12.9 80862-8) NRBC/100 WBC (test See_Comment [Automat ed message] code = [id number]) The syste m which generated this result transmitted ref erence range: 0.0 - 10 .0 /100 WBCs. The refer ence range was not u sed to interpret this result as normal/abnor mal. NRBC x10^3 (test <0.01 See_Comment [Automated message] code = 7798966280) The syste m which generated this result transmitted ref erence range: 10*3/?L. The reference range was not used to interpr et this result as normal/abnormal . GRAN MAT (NEUT) % 66.8 % (test code = 770-8) IMM GRAN % (test 0.30 % code = 4638040248) LYMPH % (test code 21.6 % = 736-9) MONO % (test code 9.2 % = 5905-5) EOS % (test code = 1.4 % 713-8) BASO % (test code 0.7 % = 706-2) GRAN MAT 4.73 10*3/uL 1.88-7.09 x10^3(ANC) (test code = 2728179850) IMM GRAN x10^3 <0.03 0.00-0.06 (test code = 9996453209) LYMPH x10^3 (test 1.53 10*3/uL 1.32-3.29 code = 731-0) MONO x10^3 (test 0.65 10*3/uL 0.33-0.92 code = 742-7) EOS x10^3 (test 0.10 10*3/uL 0.03-0.39 code = 711-2) BASO x10^3 (test 0.05 10*3/uL 0.01-0.07 code = 704-7) [facility] [id number] 10:44:47 Test Item Value Reference Range Interpretation Comments LIPASE (test code = 6273947215) 172 U/L 0-220 Lab Interpretation (test code = Normal 24744-3) [facility]anoProthrombin Time (PT) / [id number] 10:43:11 Test Item Value Reference Range Interpretation Comments PROTIME PATIENT (test See_Comment [Auto mated message] code = 5964-2) The system [facility] generated this result transmitted ref erence range: 10.1 - 1 2.6 Seconds. The re ference range was not u sed to interpret this result as normal/abnor mal. INR (test code = 6301-6) Nor mal INR <1.1; Warfarin Therap eutic range 2.0 to 3. 0 or 2.5 to 3.5, dep ending upon the indica tions. Lab Interpretation (test Normal code = 79728-9) [facility]anoaPTT2021-04-20 10:43:11 Test Item Value Reference Range Interpretation Comments APTT Patient (test code See_Comment L [Au tomated message] = 3173-2) The system [employer] h generated this result transmitted ref erence range: 26 - 36 Seconds. The reference range was not used to int erpret this result as normal/abnormal . Lab Interpretation (test Abnormal code = 44284-0) [facility]OVID[facility] (ID NOW RAPID TESTING)2020-10-13 10:28:07 Test Item Value Reference Range Interpretation Comments SARS-CoV-2 Rapid ID NOW Not Detected Not Detected (test code = 44537-4) PAULA (test code = PAULA) ID NOW COVID-19 Assay is an isothermal nucleic acid amplification test intended for the qualitative detection of nucleic acid from SARS-CoV-2 viral RNA in nasopharyngeal (RECORDS SPECIALIST) specimens. It is used under Emergency Use Authorization (EUA) by FDA. The limit of detection (LOD) of the assay is 125 Genome Equivalents/mL. A positive result is indicative of the presence of SARS-CoV-2 RNA. ?Clinical correlation with patient history and other diagnostic information is necessary to determine patient infection status. A negative (Not Detected) result does not preclude SARS-CoV-2 infection. In patients with clinical symptoms and other tests that are consistent with SARS-CoV-2 infection, negative results should be treated as presumptive negative and a new specimen should be tested with alternative PCR molecular test. Invalid: Please collect a new specimen for repeat patient testing if clinically indicated. Lab Interpretation Normal (test code = 79672-4) [facility]anoPREGNANCY TEST, [id number] 03:54:33 Test Item Value Reference Range Interpretation Comments PREG SERUM (test code Negative = 0457419613) PAULA (test code = PAULA) Less than 10 IU/L. ?If low titer or ectopic is suspected, resubmit specimen in 48-72 hours. [facility] Metabolic Panel (NA, K, CL, CO2, GLUCOSE, BUN, CREATININE, CA)2020-09-17 03:26:58 Test Item Value Reference Range Interpretation Comments NA (test code = 135 mmol/L 135-145 8626074066) K (test code = 3.8 mmol/L 3.5-5.0 8757983421) CL (test code = 99 mmol/L 98-108 1779006748) CO2 TOTAL (test code = 24 mmol/L 23-31 7418621656) AGAP (test code = 2-16 1293168657) BUN (test code = 9 mg/dL 7-23 9876894807) GLUCOSE (test code = 100 mg/dL 70-110 9818432041) CREATININE (test code 0.74 mg/dL 0.50-1.04 = 4298323771) CALCIUM (test code = 9.1 mg/dL 8.6-10.6 0963066535) eGFR Calculation mL/min/1.73m2 (Non-) (test code = 4571745929) eGFR Calculation mL/min/1.73m2 () (test code = 7935485542) PAULA (test code = PAULA) Association of Glomerular Filtration Rate (GFR) and Staging of Kidney Disease* + -+ + ---+| GFR (mL/min/1.73 m2) ?| With Kidney Damage ?| ?Without Kidney Damage+ -------+ ------+ ---------+| ?>90 ?| ?Stage one ?| ? Normal ?+ --+ -+ ----+| ?60-89 ?| ?Stage two ?| ? Decreased GFR ? + -+ + ---+| ?30-59 ?| ?Stage three ?| ? Stage three ? + -+ + ---+| ?15-29 ?| ?Stage four ? | ? Stage four ?+ --+ -+ ----+| ?<15 (or dialysis) ? ?| ?Stage five ? | ? Stage five ?+ --+ -+ ----+ *Each stage assumes the associated GFR level has been in effect for at least three months. ?Stages 1 to 5, with or without kidney disease, indicate chronic kidney disease. Notes: Determination of stages one and two (with eGFR >59mL/min/1.73 m2) requires estimation of kidney damage for at least three months as defined by structural or functional abnormalities of the kidney, manifested by either:Pathological abnormalities or Markers of kidney damage (including abnormalities in the composition of the blood or urine or abnormalities in imaging tests). [facility]ano[facility] (ALB, T.PRO, BILI T, BU/BC, ALT, AST, ALK PHOS)2020-09-17 03:26:58 Test Item Value Reference Range Interpretation Comments TOTAL BILI (test code = 8466822999) 0.4 mg/dL 0.1-1.1 BILI UNCON (test code = 6015190213) 0.2 mg/dL 0.1-1.1 BILI CONJ (test code = 2818666951) 0.0 mg/dL 0.0-0.3 T PROTEIN (test code = 4502321511) 8.6 g/dL 6.3-8.2 H ALBUMIN (test code = 4600059863) 5.1 g/dL 3.5-5.0 H ALK PHOS (test code = 5018250226) 114 U/L 34-122 ALTv (test code = 1742-6) 28 U/L 5-35 AST(SGOT) (test code = 6091117322) 47 U/L 13-40 H Lab Interpretation (test code = Abnormal 67179-4) [facility]anoLipase [id number] 03:26:58 Test Item Value Reference Range Interpretation Comments LIPASE (test code = 9689738979) 81 U/L 0-220 Lab Interpretation (test code = Normal 61319-7) [facility]anoCB with [id number] 03:13:16 Test Item Value Reference Range Interpretation Comments WBC (test code = See_Comment [Automated 9190-2) message] The sy stem which generated this result transmitted reference range : 4.30 - 11.10 10*3/?L. The reference range was not used to interpret this result as normal/abnormal . RBC (test code = See_Comment [Automated 444-8) message] The sy stem which generated this result transmitted reference range : 3.93 - 5.25 10*6/?L. The reference range was not used to interpret this result as normal/abnormal . HGB (test code = 15.0 g/dL 11.6-15.0 718-7) HCT (test code = 44.8 % 35.7-45.2 4544-3) MCV (test code = 91.4 fL 80.6-95.5 787-2) MCH (test code = 30.6 pg 25.9-32.8 785-6) MCHC (test code = 33.5 g/dL 31.6-35.1 786-4) RDW-SD (test code = 42.8 fL 39.0-49.9 46985-8) RDW-CV (test code = 12.8 % 12.0-15.5 788-0) PLT (test code = See_Comment [Automated 657-3) message] The sy stem which generated this result transmitted reference range : 166 - 358 10*3/ ?L. The reference r micah was not used to interpret this result as normal/abnormal . MPV (test code = 8.9 fL 9.5-12.9 L 94052-4) NRBC/100 WBC (test See_Comment [Automat ed code = 5380499921) message] The system which generated this result transmitted reference range : 0.0 - 10.0 /100 WBCs. The refer ence range was not u sed to interpret th is result as normal/abnormal . NRBC x10^3 (test code <0.01 See_Comment [Auto mated = 5289217367) message] The s ystem which generated this result transmitted reference range : 10*3/?L. The reference range was not used to interpret this result as normal/abnormal . GRAN MAT (NEUT) % 44.7 % (test code = 770-8) IMM GRAN % (test code 0.50 % = 2657208748) LYMPH % (test code = 44.6 % 736-9) MONO % (test code = 8.2 % 5905-5) EOS % (test code = 0.9 % 713-8) BASO % (test code = 1.1 % 706-2) GRAN MAT x10^3(ANC) 2.84 10*3/uL 1.88-7.09 (test code = 8927309011) IMM GRAN x10^3 (test 0.03 10*3/uL 0.00-0.06 code = 0791145237) LYMPH x10^3 (test code 2.83 10*3/uL 1.32-3.29 = 731-0) MONO x10^3 (test code 0.52 10*3/uL 0.33-0.92 = 742-7) EOS x10^3 (test code = 0.06 10*3/uL 0.03-0.39 711-2) BASO x10^3 (test code 0.07 10*3/uL 0.01-0.07 = 704-7) Lab Interpretation Abnormal (test code = 08917-8) [facility]anoN-TERMINAL [id number] 11:23:18 Test Item Value Reference Range Interpretation Comments NT-proBNP (test code 100 pg/mL See_Comment [Autom ated = 6922510368) message] The system which generated this result transmitted reference range : <=125. The reference range was not used to interpret this result as normal/abnormal . PAULA (test code = PAULA) Biotin has been reported to cause a negative bias, interpret results relative to patient's use of biotin. Lab Interpretation Normal (test code = 06199-9) [facility] WITH [id number] 11:03:17 Test Item Value Reference Range Interpretation Comments WBC (test code = See_Comment [Automated 6690-2) message] The sy stem which generated this result transmitted reference range : 4.30 - 11.10 10*3/?L. The reference range was not used to interpret this result as normal/abnormal . RBC (test code = See_Comment [Automated 789-8) message] The sy stem which generated this result transmitted reference range : 3.93 - 5.25 10*6/?L. The reference range was not used to interpret this result as normal/abnormal . HGB (test code = 13.5 g/dL 11.6-15.0 718-7) HCT (test code = 41.1 % 35.7-45.2 4544-3) MCV (test code = 95.4 fL 80.6-95.5 787-2) MCH (test code = 31.3 pg 25.9-32.8 785-6) MCHC (test code = 32.8 g/dL 31.6-35.1 786-4) RDW-SD (test code = 44.5 fL 39.0-49.9 34287-4) RDW-CV (test code = 12.7 % 12.0-15.5 788-0) PLT (test code = See_Comment [Automated 777-3) message] The sy stem which generated this result transmitted reference range : 166 - 358 10*3/ ?L. The reference r micah was not used to interpret this result as normal/abnormal . MPV (test code = 10.3 fL 9.5-12.9 46091-4) NRBC/100 WBC (test See_Comment [Automat ed code = 1512070164) message] The system which generated this result transmitted reference range : 0.0 - 10.0 /100 WBCs. The refer ence range was not u sed to interpret th is result as normal/abnormal . NRBC x10^3 (test code <0.01 See_Comment [Auto mated = 3432705131) message] The s [employer] which generated this result transmitted reference range : 10*3/?L. The reference range was not used to interpret this result as normal/abnormal . GRAN MAT (NEUT) % 51.5 % (test code = 770-8) IMM GRAN % (test code 0.40 % = 0615842710) LYMPH % (test code = 35.6 % 736-9) MONO % (test code = 8.2 % 5905-5) EOS % (test code = 3.1 % 713-8) BASO % (test code = 1.2 % 706-2) GRAN MAT x10^3(ANC) 3.78 10*3/uL 1.88-7.09 (test code = 7373263700) IMM GRAN x10^3 (test 0.03 10*3/uL 0.00-0.06 code = 1868024407) LYMPH x10^3 (test code 2.61 10*3/uL 1.32-3.29 = 731-0) MONO x10^3 (test code 0.60 10*3/uL 0.33-0.92 = 742-7) EOS x10^3 (test code = 0.23 10*3/uL 0.03-0.39 711-2) BASO x10^3 (test code 0.09 10*3/uL 0.01-0.07 H = 704-7) Lab Interpretation Abnormal (test code = 54220-9) [id number] 10:38:33 Test Item Value Reference Range Interpretation Comments TROPONIN I (test <0.012 See_Comment [Automated code = 1910143934) message] The system which generated this result transmitted reference range : <=0.034 ng/mL. The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 +--------- +------- +| ?>90 ?| ?Stage one ?| ? Normal ?+ -----+ -------+ +| ?60-89 ?| ?Stage two ?| ? Decreased GFR ? + ----+ ------+ +| ?30-59 ?| ?Stage three ?| ? Stage three ? + ----+ ------+ +| ?15-29 ?| ?Stage four ? | ? Stage four ?+ -----+ -------+ +| ?<15 (or dialysis) ? ?| ?Stage five ? | ? Stage five ?+ -----+ -------+ + *Each stage assumes the associated GFR level has been in effect for at least three months. ?Stages 1 to 5, with or without kidney disease, indicate chronic kidney disease. Notes: Determination of stages one and two (with eGFR >59mL/min/1.73 m2) requires estimation of kidney damage for at least three months as defined by structural or functional abnormalities of the kidney, manifested by either:Pathological abnormalities or Markers of kidney damage (including abnormalities in the composition of the blood or urine or abnormalities in imaging tests). [facility]anoProthrombin Time / [id number] 12:41:00 Test Item Value Reference Range Interpretation Comments PROTIME PATIENT (test See_Comment [Auto mated message] code = 5964-2) The system GetYour[employer] generated this result transmitted ref erence range: 10.1 - 1 2.6 Seconds. The re ference range was not u sed to interpret this result as normal/abnor mal. INR (test code = 6301-6) Nor mal INR <1.1; Warfarin Therap eutic range 2.0 to 3. 0 or 2.5 to 3.5, dep ending upon the indica tions. Lab Interpretation (test Normal code = 31232-4) [facility] PlanoaPTT2020-10-17 12:41:00 Test Item Value Reference Range Interpretation Comments APTT Patient (test code See_Comment L [Au tomated message] = 3173-2) The system [employer] generated this result transmitted ref erence range: 26 - 36 Seconds. The reference range was not used to int erpret this result as normal/abnormal . Lab Interpretation (test Abnormal code = 42542-9) [facility] PlanoProfile / [id number] 12:31:00 Test Item Value Reference Range Interpretation Comments WBC (test code = 6690-2) See_Comment H [A utomated message] The system [employer] generated this result transmit bhaskar reference range : 4.30 - 11.10 10*3/?L. The reference range was not used to interpret this result as normal/abnormal . RBC (test code = 789-8) See_Comment [Au tomated message] The system [employer] generated this result transmit bhaskar reference range : 3.93 - 5.25 10* 6/?L. The reference r micah was not used to interpret this result as normal/abnormal . HGB (test code = 718-7) 14.1 g/dL 11.6-15 HCT (test code = 4544-3) 42.3 % 35.7-45.2 MCH (test code = 785-6) 31.0 pg 25.9-32.8 MCV (test code = 787-2) 93.0 fL 80.6-95.5 MCHC (test code = 786-4) 33.3 g/dL 31.6-35.1 PLT (test code = 777-3) See_Comment [Au tomated message] The system [employer] generated this result transmit bhaskar reference range : 166 - 358 10*3/?L. The reference range was not used to interpret this result as normal/abnormal . MPV (test code = 10.0 fL 9.5-12.9 39982-5) RDW-CV (test code = 12.9 % 12-15.5 788-0) RDW-SD (test code = 43.6 fL 39-49.9 06723-2) NRBC x10^3 (test code = <0.01 See_Comment [Au tomated message] [id number]) The system [employer] generated this result transmit bhaskar reference range : 10*3/?L. The reference range was not used to interpret this result as normal/abnormal . NRBC/100 WBC (test code See_Comment [Au tomated message] = 9704821889) The system [facility] generated this result transmit bhaskar reference range : 0.0 - 10.0 /100 WBC s. The reference r micah was not used to interpret this result as normal/abnormal . IPF % (test code = 5934622033) Lab Interpretation (test Abnormal code = 99529-6) [facility]TR[facility] [id number] 02:32:00 Test Item Value Reference Range Interpretation Comments TROPONIN I (test 0.013 ng/mL See_Comment [Automated code = 8204370787) message] The system which generated this result transmitted reference range : <=0.034. The reference range was not used to interpret this result as normal/abnormal . PAULA (test code = Equal or Less than PAULA) 0.034 ng/ml---Normal ?Note: Cardiac troponin begins to rise 3-4 hours after the onset of ischemia. Repeat in 4-6 hours if the sample was drawn within 3-4 hours of the onset of the symptom and found normal. Between 0.035 and 0.120 ng/mL--- Borderline. Questionable myocardial injury or necrosis ? ?Note: Serial measurement may be necessary to confirm or exclude the diagnosis of myocardial injury or necrosis; Clinical correlation (symptoms, EKGs, imaging studies, and others) required; Repeat in 4-6 hours if clinically indicated. ? Equal or Higher than 0.121 ng/mL---Abnormal. Myocardial Injury or Necrosis Likely ? Biotin has been reported to cause a negative bias, interpret results relative to patient's use of biotin. ? Lab Interpretation Normal (test code = 90266-3) [facility] / [facility] - DRUG SCREEN [id number] 05:48:00 Test Item Value Reference Range Interpretation Comments BENZO U (test code = Presumptive Positive Negative A 0124954178) ANN U (test code = Negative Negative 9963870549) AMPHET (test code = Presumptive Positive Negative A 0614091583) THC (test code = Negative Negative 4646192302) METHADONE (test code = Negative Negative 5680278041) Meth U (test code = Presumptive Positive Negative A 1059440706) OPIATES (test code = Negative Negative 7382561331) Cocaine Metabolite (test Negative Negative code = 0312136974) PROPOXY (test code = Negative Negative 9256493473) Tric U (test code = Negative Negative 3464492538) PCP (test code = Negative Negative 5723500993) OXYCOD (test code = Negative Negative 8248255613) PAULA (test code = PAULA) Urine Drug Cutoff Ranges Benzodiazepines: ? ? 150 ng/mLBarbiturates: ?200 ng/mLAmphetamine: ? 500 ng/mLCannabinoids: ?50 ?ng/mLMethadone: ? 200 ng/mLMethamphetamine: ? ? 500 ng/mL Opiates: ? 100 ng/mL or 2000 ng/mLCocaine: ? 150 ng/mLPropoxyphene: ?300 ng/mLTricyclics: ?300 ng/mLOxycodone: ? 100 ng/mLPCP: ? 25 ?ng/mL The results are to be used only for medical (i.e., treatment) purposes. Unconfirmed screening results must not be used for non-medical purposes (e.g., employment testing, legal testing). Lab Interpretation (test Abnormal code = 55462-7) [facility]anoXR CHEST 1 [id number] 04:51:01Impression: No acute cardiopulmonary changes. Preliminary Report Dictated by Resident: Sebastian Allred MD., have reviewed this study and agree withthe above report.XR CHEST1 VW History: Chest pain Comparison: XR CHEST 1 VW, 03/06/2019. Findings: The lungs are clear. No focal consolidation is present. No pleural effusionor pneumothorax is identified. The heart is normal in size. The osseous structures are unremarkable. [facility], Radiant Results Inft User - 04/09/2020 11:52PM CDTXR CHEST 1 VWHistory: Chest pain Comparison: XR CHEST 1 VW, 03/06/2019.Findings:The lungs are clear. No focal consolidation is present. No pleural effusionor pneumothorax is identified. The heart is normal in size. The osseous structures are unremarkable.IMPRESSIONImpression:No acute cardiopulmonary changes.Preliminary Report Dictated by Resident: Sebastian Ramos MD.,have reviewed this study and agree withthe above report.[facility] PlanoTROPONIN [id number] 04:48:00 Test Item Value Reference Range Interpretation Comments TROPONIN I (test 0.018 ng/mL See_Comment [Automated code = 3617800798) message] The system which generated this result transmitted reference range : <=0.034. The reference range was not used to interpret this result as normal/abnormal . PAULA (test code = Equal or Less than PAULA) 0.034 ng/ml---Normal ?Note: Cardiac troponin begins to rise 3-4 hours after the onset of ischemia. Repeat in 4-6 hours if the sample was drawn within 3-4 hours of the onset of the symptom and found normal. Between 0.035 and 0.120 ng/mL--- Borderline. Questionable myocardial injury or necrosis ? ?Note: Serial measurement may be necessary to confirm or exclude the diagnosis of myocardial injury or necrosis; Clinical correlation (symptoms, EKGs, imaging studies, and others) required; Repeat in 4-6 hours if clinically indicated. ? Equal or Higher than 0.121 ng/mL---Abnormal. Myocardial Injury or Necrosis Likely ? Biotin has been reported to cause a negative bias, interpret results relative to patient's use of biotin. ? Lab Interpretation Normal (test code = 04288-0) [facility]anoN-TERMINAL [id number] 04:45:00 Test Item Value Reference Range Interpretation Comments NT-proBNP (test code 309 pg/mL See_Comment H [Autom ated = 5883064667) message] The system which generated this result transmitted reference range : <=125. The reference range was not used to interpret this result as normal/abnormal . PAULA (test code = PAULA) Biotin has been reported to cause a negative bias, interpret results relative to patient's use of biotin. Lab Interpretation Abnormal (test code = 98378-7) [facility]anoD-[id number] 04:43:00 Test Item Value Reference Interpretation Comments Range D-DIMER (test code = <0.27 See_Comment [Autom ated 5499148716) message] The system which generated this result transmitted reference range : <0.41 ?g/mL (FEU). The reference range was not used to interpret this result as normal/abnormal . PAULA (test code = This test may be PAULA) used in conjunction with a clinical pretest probability (PTP) assessment model to exclude venous thromboembolism (VTE) in patients suspected of deep venous thrombosis (DVT) and pulmonary embolism (PE) A D-Dimer value less than 0.50 ?g/ml (FEU) has a negative predicative value of 96 to 100% (95% CI)and 97 to 100% (95% CI) as an aid in the diagnosis of deep vein thrombosis (DVT) and pulmonary embolism when there is low or moderate pretest probability of PE or DVT. D-Dimer values are expressed in initial fibrinogen equivalent units (FEU)" The assay results should be used with other information, including the clinical context, in forming a diagnosis. Lab Interpretation Normal (test code = 09695-8) [facility]anoCOVID-19 (ID NOW RAPID TESTING)2020-04-10 04:42:00 Test Item Value Reference Range Interpretation Comments SARS-CoV-2 Rapid ID NOW Not Detected Not Detected (test code = 49164-6) PAULA (test code = PAULA) ID NOW COVID-19 Assay is an isothermal nucleic acid amplification test intended for the qualitative detection of nucleic acid from SARS-CoV-2 viral RNA in nasopharyngeal (RECORDS SPECIALIST) specimens. It is used under Emergency Use Authorization (EUA) by FDA. The limit of detection (LOD) of the assay is 125 Genome Equivalents/mL. A positive result is indicative of the presence of SARS-CoV-2 RNA. ?Clinical correlation with patient history and other diagnostic information is necessary to determine patient infection status. A negative (Not Detected) result does not preclude SARS-CoV-2 infection. In patients with clinical symptoms and other tests that are consistent with SARS-CoV-2 infection, negative results should be treated as presumptive negative and a new specimen should be tested with alternative PCR molecular test. Invalid: Please collect a new specimen for repeat patient testing if clinically indicated. Lab Interpretation Normal (test code = 87711-9) [facility] [place]2020-[place]16 04:37:00 Test Item Value Reference Range Interpretation Comments MAGNESIUM (test code = 9598158522) 1.7 mg/dL 1.7-2.4 Lab Interpretation (test code = Normal 97765-4) [facility]OLIC PAN[facility] ([id number])2020-04-10 04:36:00 Test Item Value Reference Range Interpretation Comments NA (test code = 135 mmol/L 135-145 6447896988) K (test code = 3.4 mmol/L 3.5-5 L 1516725893) CL (test code = 99 mmol/L 98-108 9718407323) CO2 TOTAL (test code = 24 mmol/L 23-31 2269064896) AGAP (test code = 2-16 8368941547) BUN (test code = 8 mg/dL 7-23 4878309248) GLUCOSE (test code = 119 mg/dL 70-110 H 3174212348) CREATININE (test code = 0.71 mg/dL 0.5-1.04 4644454751) TOTAL BILI (test code = 0.5 mg/dL 0.1-1.8 8288022260) CALCIUM (test code = 10.9 mg/dL 8.6-10.6 H 6338221480) T PROTEIN (test code = 8.1 g/dL 6.3-8.2 2059026467) ALBUMIN (test code = 4.4 g/dL 3.5-5 0296144551) ALK PHOS (test code = 85 U/L 34-122 0598355317) ALTv (test code = 51 U/L 5-35 H 1742-6) AST(SGOT) (test code = 42 U/L 13-40 H 5078462588) eGFR Calculation mL/min/1.73m2 (Non-) (test code = 8954773182) eGFR Calculation mL/min/1.73m2 () (test code = 0557835000) PAULA (test code = PAULA) Association of Glomerular Filtration Rate (GFR) and Staging of Kidney Disease* + --+ --+ ------+| GFR (mL/min/1.73 m2) ?| With Kidney Damage ?| ?Without Kidney Damage+ --------+ --------+ +| ?>90 ?| ?Stage one ?| ? Normal ?+ ---+ ---+ -------+| ?60-89 ?| ?Stage two ?| ? Decreased GFR ? + --+ --+ ------+| ?30-59 ?| ?Stage three ?| ? Stage three ? + --+ --+ ------+| ?15-29 ?| ?Stage four ? | ? Stage four ?+ ---+ ---+ -------+| ?<15 (or dialysis) ? ?| ?Stage five ? | ? Stage five ?+ ---+ ---+ -------+ *Each stage assumes the associated GFR level has been in effect for at least three months. ?Stages 1 to 5, with or without kidney disease, indicate chronic kidney disease. Notes: Determination of stages one and two (with eGFR >59mL/min/1.73 m2) requires estimation of kidney damage for at least three months as defined by structural or functional abnormalities of the kidney, manifested by either:Pathological abnormalities or Markers of kidney damage (including abnormalities in the composition of the blood or urine or abnormalities in imaging tests). Lab Interpretation Abnormal (test code = 33718-7) [facility] 04:[facility] Test Item Value Reference Range Interpretation Comments LIPASE (test code = 1346763908) 193 U/L 0-220 Lab Interpretation (test code = Normal 59781-0) [facility] WITH [id number] 04:22:00 Test Item Value Reference Range Interpretation Comments WBC (test code = See_Comment [Automated 6596-2) message] The sy stem which generated this result transmitted reference range : 4.30 - 11.10 10*3/?L. The reference range was not used to interpret this result as normal/abnormal . RBC (test code = See_Comment [Automated 019-8) message] The sy stem which generated this result transmitted reference range : 3.93 - 5.25 10*6/?L. The reference range was not used to interpret this result as normal/abnormal . HGB (test code = 14.5 g/dL 11.6-15 718-7) HCT (test code = 42.9 % 35.7-45.2 4544-3) MCV (test code = 90.5 fL 80.6-95.5 787-2) MCH (test code = 30.6 pg 25.9-32.8 785-6) MCHC (test code = 33.8 g/dL 31.6-35.1 786-4) RDW-SD (test code = 41.7 fL 39-49.9 50548-0) RDW-CV (test code = 12.5 % 12-15.5 788-0) PLT (test code = See_Comment [Automated 967-3) message] The sy stem which generated this result transmitted reference range : 166 - 358 10*3/ ?L. The reference r micah was not used to interpret this result as normal/abnormal . MPV (test code = 9.5 fL 9.5-12.9 59014-4) NRBC/100 WBC (test See_Comment [Automat ed code = 3443381035) message] The system which generated this result transmitted reference range : 0.0 - 10.0 /100 WBCs. The refer ence range was not u sed to interpret th is result as normal/abnormal . NRBC x10^3 (test code <0.01 See_Comment [Auto mated = 3056607017) message] The s ystem which generated this result transmitted reference range : 10*3/?L. The reference range was not used to interpret this result as normal/abnormal . GRAN MAT (NEUT) % 67.8 % (test code = 770-8) IMM GRAN % (test code 0.50 % = 0470959983) LYMPH % (test code = 24.0 % 736-9) MONO % (test code = 6.6 % 5905-5) EOS % (test code = 0.6 % 713-8) BASO % (test code = 0.5 % 706-2) GRAN MAT x10^3(ANC) 7.32 10*3/uL 1.88-7.09 H (test code = 8546177350) IMM GRAN x10^3 (test 0.05 10*3/uL 0-0.06 code = 1823384814) LYMPH x10^3 (test code 2.58 10*3/uL 1.32-3.29 = 731-0) MONO x10^3 (test code 0.71 10*3/uL 0.33-0.92 = 742-7) EOS x10^3 (test code = 0.06 10*3/uL 0.03-0.39 711-2) BASO x10^3 (test code 0.05 10*3/uL 0.01-0.07 = 704-7) Lab Interpretation Abnormal (test code = 36046-6) [facility][id number][facility]25 19:07:00 Test Item Value Reference Range Interpretation Comments NA (test code = 135 mmol/L 135-145 0030271673) K (test code = 3.7 mmol/L 3.5-5 6839975597) CL (test code = 106 mmol/L 98-108 0436350036) CO2 TOTAL (test code = 21 mmol/L 23-31 L 3165459143) AGAP (test code = 2-16 9085645419) BUN (test code = 9 mg/dL 7-23 4635693385) GLUCOSE (test code = 116 mg/dL 70-110 H 6089890042) CREATININE (test code = 0.57 mg/dL 0.5-1.04 4011795058) TOTAL BILI (test code = 0.7 mg/dL 0.1-1.0 4551118866) CALCIUM (test code = 9.4 mg/dL 8.6-10.6 2371989859) T PROTEIN (test code = 8.2 g/dL 6.3-8.2 0302671102) ALBUMIN (test code = 4.6 g/dL 3.5-5 0814801185) ALK PHOS (test code = 116 U/L 34-122 1659462664) ALTv (test code = 67 U/L 5-35 H 1742-6) AST(SGOT) (test code = 70 U/L 13-40 H 6886135324) eGFR Calculation mL/min/1.73m2 (Non-) (test code = 4613457174) eGFR Calculation mL/min/1.73m2 () (test code = 6873037548) PAULA (test code = PAULA) Association of Glomerular Filtration Rate (GFR) and Staging of Kidney Disease* + --+ --+ ------+| GFR (mL/min/1.73 m2) ?| With Kidney Damage ?| ?Without Kidney Damage+ --------+ --------+ +| ?>90 ?| ?Stage one ?| ? Normal ?+ ---+ ---+ -------+| ?60-89 ?| ?Stage two ?| ? Decreased GFR ? + --+ --+ ------+| ?30-59 ?| ?Stage three ?| ? Stage three ? + --+ --+ ------+| ?15-29 ?| ?Stage four ? | ? Stage four ?+ ---+ ---+ -------+| ?<15 (or dialysis) ? ?| ?Stage five ? | ? Stage five ?+ ---+ ---+ -------+ *Each stage assumes the associated GFR level has been in effect for at least three months. ?Stages 1 to 5, with or without kidney disease, indicate chronic kidney disease. Notes: Determination of stages one and two (with eGFR >59mL/min/1.73 m2) requires estimation of kidney damage for at least three months as defined by structural or functional abnormalities of the kidney, manifested by either:Pathological abnormalities or Markers of kidney damage (including abnormalities in the composition of the blood or urine or abnormalities in imaging tests). Lab Interpretation Abnormal (test code = 10142-3) [facility] WITH [id number] 18:51:00 Test Item Value Reference Range Interpretation Comments WBC (test code = See_Comment [Automated message] 0590-2) The system Serat[employer] generated this result transmitted ref erence range: 4.30 - 1 1.10 10*3/?L. The re ference range was not u sed to interpret this result as normal/abnor mal. RBC (test code = See_Comment [Automated message] 399-8) The system Serat[employer] generated this result transmitted ref erence range: 3.93 - 5 .25 10*6/?L. The re ference range was not u sed to interpret this result as normal/abnor mal. HGB (test code = 14.4 g/dL 11.6-15 718-7) HCT (test code = 42.2 % 35.7-45.2 4544-3) MCV (test code = 89.2 fL 80.6-95.5 787-2) MCH (test code = 30.4 pg 25.9-32.8 785-6) MCHC (test code = 34.1 g/dL 31.6-35.1 786-4) RDW-SD (test code 41.6 fL 39-49.9 = 72562-8) RDW-CV (test code 12.6 % 12-15.5 = 788-0) PLT (test code = See_Comment [Automated message] 597-3) The system Serat[employer] generated this result transmitted ref erence range: 166 - 35 8 10*3/?L. The re ference range was not u sed to interpret this result as normal/abnor mal. MPV (test code = 10.0 fL 9.5-12.9 49663-5) NRBC/100 WBC (test See_Comment [Automat ed message] code = 9463652643) The syste m which generated this result transmitted ref erence range: 0.0 - 10 .0 /100 WBCs. The refer ence range was not u sed to interpret this result as normal/abnor mal. NRBC x10^3 (test <0.01 See_Comment [Automated message] code = 6789015792) The syste m which generated this result transmitted ref erence range: 10*3/?L. The reference range was not used to interpr et this result as normal/abnormal . GRAN MAT (NEUT) % 63.1 % (test code = 770-8) IMM GRAN % (test 0.40 % code = 8532515382) LYMPH % (test code 27.0 % = 736-9) MONO % (test code 8.0 % = 5905-5) EOS % (test code = 0.6 % 713-8) BASO % (test code 0.9 % = 706-2) GRAN MAT 5.02 10*3/uL 1.88-7.09 x10^3(ANC) (test code = 0245494547) IMM GRAN x10^3 0.03 10*3/uL 0-0.06 (test code = 3923570131) LYMPH x10^3 (test 2.15 10*3/uL 1.32-3.29 code = 731-0) MONO x10^3 (test 0.64 10*3/uL 0.33-0.92 code = 742-7) EOS x10^3 (test 0.05 10*3/uL 0.03-0.39 code = 711-2) BASO x10^3 (test 0.07 10*3/uL 0.01-0.07 code = 704-7) [facility] W/[id number] 18:17:32NPO 4 hours. Do not withhold medsProcedure: CT ABDOMEN/PELVIS W/CONTRASTOrder date: 08/22/2019 5:21 PMOrdering Provider: ALLAN Nolascoinical Indication: Severe central abdominal painComparison: NoneTechnique: Multiple axial helicalCT images of the abdomen and pelvis wereobtained [...] retroperitoneal masses or adenopathy. No free fluid orpneumoperitoneum.Appendix is not visualized if there is no secondary signs of acute appendicitisor inflammatory change within the right lower quadrant.Urinary bladder is unremarkable. No pelvic masses or adenopathy seen. Perirectalfat planes are preserved.Osseous structures of the abdomen and pelvis are nonacute.Impression:Unremarkable CT of the abdomen and pelvis with IV contrast.This final report was electronically signed by Dr Miguel Gilman MD 08/22/20196:11 PMDictated By: MIGUEL GILMANDate: 08/22/201918:11STAT LAB , [id number] 17:09:00 Test Item Value Reference Range Interpretation Comments (Urine) (test code = Negative PREGU) STAT LAB URINALYSIS WITHOUT [id number] 17:08:00 Test Item Value Reference Range Interpretation Comments Color (test code = UCOLR) Light yellow Lt. Yellow A Clarity (test code = UCLAR) Clear Glucose (test code = UGLUC) Negative Negative N Bilirubin (test code = UBILI) Negative Negative N Ketones (test code = UKET) Negative Negative N Specific [place] (test code = 1.015 1.005-1.030 A USPGR) Blood (test code = UBLD) Negative Negative N PH (test code = UPH) 5.5 4.5-8.0 A Protein (test code = UPROT) Negative Negative N Urobilinogen (test code = U 0.2 >0.2 N UROB) Nitrite (test code = UNITR) Negative Negative N Leukocyte Esterase (test code = Negative Negative N ULEUK) [id number] 16:39:00 Test Item Value Reference Range Interpretation [...] 4 - SerumAlbu min)] EGFR if >60 Malian (test code mL/min/1.73m\\ = EGFRAA) S\\2 EGFR if Non- >60 Estimate d Glomerular [place]ian (test code mL/min/1.73m\\ Filtrat ion Rate (eGFR) = EGFRNA) S\\2 Reference Inter vals Decision Points for 18 [...] and management of c hronic kidney failure. [id number] 16:39:00 Test Item Value Reference Range Interpretation Comments Lipase (test code = LIPA) 178 U/L 73-393 STAT LAB CBC WITH AUTO [id number] 16:16:00 Test Item Value Reference Range Interpretation Comments WBC (test code = WBC) 4.65 10\\S\\3/ul 4.80-10.80 L RBC (test code = RBC) 4.26 10\\S\\6/ul 4.20-5.40 Hemoglobin (test code = HGB) 13.1 gm/dl 12.0-14.0 Hematocrit (test code = HCT) 39.7 % 37.0-47.0 MCV (test code = MCV) 93.2 fL 81.0-99.0 MCH (test code = MCH) 30.8 pg 27.0-31.0 MCHC (test code = MCHC) 33.0 gm/dl 33.0-37.0 Platelet (test code = PLT) 256 10\\S\\3/ul 130-400 RDW (test code = RDWVC) 12.3 [...] 0.4 % 0.0-0.4 XR ELBOW MIN 3 [id number] 17:59:10Procedure: XR ELBOW MIN 3 VIEWSOrder Date: 08/19/2019 2:54 PMOrdering Provider: FIONA Vincentinical Indication: [id number]: Pain of left elbow jointComparison: NoneFINDINGS:There is no fracture or dislocation.Osteoarthrosis of the left elbow, particularly at the radial articular surface.No lytic or sclerotic lesions.No joint effusion.No subcutaneous gas.IMPRESSION:1. No fracture or dislocation.2. Osteoarthrosis of the left elbow.3. No other significant findings.This final report was e lectronically signed by Dr Emile Nath MD 08/19/20195:52 PMDictated By: EMILE NATH.Date: 08/19/2019 17:52CT ABDOMEN PELVIS W [id number] 01:59:29 No acute intra-abdominal process. 3.2 cm right simple ovarian cyst. Preliminary Report Dictated byResident: Luis E Sanon MD., have reviewed this study and agree with the abovereport.EXAM: CT ABDOMEN AND PELVIS WITH CONTRAST HISTORY: Right lower quadrant pain COMPARISON: None. TECH NIQUE AND FINDINGS: Contiguous axial imaging from the level of the lungbases through the pubic symphysis was performed after the uncomplicatedadministration of 120 cc of intravenous Omnipaque contrast.Coronal andsagittal reconstructions were obtained. ?Auto mA and/or iterativereconstruction were usedto reduce radiation dose. FINDINGS: LOWER THORAX: The lungs bases are clear. No cardiomegaly. LIVER:No focal hepatic lesions. ?Normal contour. GALLBLADDER AND BILIARY TREE: No biliary ductal dilation.?No gallbladderwall thickening. SPLEEN: No splenomegaly. PANCREAS: No ductal dilation or masses. ADRENAL GLANDS: No adrenal nodules. KIDNEYS: No hydronephrosis, stones, or masses. PERITONEUM AND RETROPERITONEUM: No free air or fluid. LYMPH NODES: No lymphadenopathy. GI TRACT: No dilation or wall thickening. PELVIS/BLADDER: 3.2 cm right simple ovarian cyst. The uterus isretroverted. A 1.2 cm low-density circumscribed lesion is noted in the leftposterior cervix and may represent a prominent nabothian cyst. A few othersmaller low-density foci are seen towards the midline.. VESSELS: Unremarkable. BONESAND SOFT TISSUES: No suspicious lytic or sclerotic bony lesions. [facility], Radiant Results Inft User - 07/12/2019 8:00 PM CSTEXAM: CT ABDOMEN AND PELVIS WITH CONTRASTHISTORY: Right lower quadrant painCOMPARISON: None.TECHNIQUE AND FINDINGS: Contiguous axial imaging from the level of the lungbases throughthe pubic symphysis was performed after the uncomplicatedadministration of 120 cc of intravenous Omnipaque contrast. Coronal andsagittal reconstructions were obtained. Auto mA and/or iterativereconstru ction were used to reduce radiation dose.FINDINGS:LOWER THORAX: The lungs bases are clear. No cardiomegaly.LIVER: No focal hepatic lesions. Normal contour.GALLBLADDER AND BILIARY TREE: No biliary ductal dilation. No gallbladderwall thickening.SPLEEN: No splenomegaly.PANCREAS: No ductal dilation or masses.ADRENAL GLANDS: No adrenal nodules.KIDNEYS: No hydronephrosis, stones, or masses.PERITONEUM ANDRETROPERITONEUM: No free air or fluid.LYMPH NODES: No lymphadenopathy.GI TRACT: No dilation or wall thickening.PELVIS/BLADDER: 3.2 cm right simple ovarian cyst. The uterus isretroverted. A 1.2 cm low-density circumscribed lesion is noted in the leftposterior cervix and may represent a prominent nabothian cyst. A few othersmaller low-density foci are seen towards the midline..VESSELS: Unremarkable.BONES AND SOFT TISSUES: No suspicious lytic or sclerotic bony lesions.IMPRESSIONNo acute intra-abdominalprocess.3.2 cm right simple ovarian cyst. Preliminary Report Dictated by Resident: Philippe Calix, Wil Terrell MD., have reviewed this study and agree with the abovereport. [facility], [id number] 00:29:00 Test Item Value Reference Range Interpretation Comments POCT PREG (test code = 1605) NEGATIVE Lab Interpretation (test code = Normal 69704-4) [facility]anoUrinalysis2020-01-17 23:44:00 Test Item Value Reference Range Interpretation Comments APPEARANCE (test code = Clear Clear 0834385810) COLOR (test code = Straw Yellow A 7052632844) PH (test code = 4.8-8.0 9540614979) SP GRAVITY (test code = 1.003-1.030 4017472916) GLU U QUAL (test code = Normal Normal 0066622407) BLOOD (test code = Negative Negative 3998334012) KETONES (test code = Negative Negative 8360418061) PROTEIN (test code = Negative Negative 2887-8) UROBILIN (test code = Normal Normal 1254692199) BILIRUBIN (test code = Negative Negative 2114043302) NITRITE (test code = Negative Negative 0126679991) LEUK JONATHON (test code = Negative Negative 6100013790) RBC/HPF (test code = See_Comment [Autom ated message] 5722657758) The system Seratis generated this result transmitted ref erence range: 0 - 3 HP F. The reference range was not used to int erpret this result as normal/abnormal . WBC/HPF (test code = See_Comment [Autom ated message] 6829298751) The system Serat[employer] generated this result transmitted ref erence range: 0 - 5 HP F. The reference range was not used to int erpret this result as normal/abnormal . BACTERIA (test code = Negative Negative 8763038110) SQ EPITH (test code = <1 See_Comment [Auto mated message] 9572174548) The system Serat[employer] generated this result transmitted ref erence range: <=2 HPF. The reference range was not used to int erpret this result as normal/abnormal . Lab Interpretation (test Abnormal code = 06370-0) [facility]. METABOLIC PANEL (28165)2019-07-12 23:30:00 Test Item Value Reference Range Interpretation Comments NA (test code = 141 mmol/L 135-145 5471342588) K (test code = 3.5 mmol/L 3.5-5 4959647950) CL (test code = 105 mmol/L 98-108 0871558988) CO2 TOTAL (test code = 27 mmol/L 23-31 8271820927) AGAP (test code = 2-16 9451012722) BUN (test code = 9 mg/dL 7-23 0999174578) GLUCOSE (test code = 80 mg/dL 70-110 3521772968) CREATININE (test code = 0.50 mg/dL 0.5-1.04 9862242439) TOTAL BILI (test code = 0.4 mg/dL 0.1-1.4 1082490756) CALCIUM (test code = 8.7 mg/dL 8.6-10.6 0794106909) T PROTEIN (test code = 7.4 g/dL 6.3-8.2 2197490800) ALBUMIN (test code = 4.2 g/dL 3.5-5 3186762811) ALK PHOS (test code = 90 U/L 34-122 0557145208) ALTv (test code = 157 U/L 5-35 H 1742-6) AST(SGOT) (test code = 151 U/L 13-40 H 7363230199) eGFR Calculation mL/min/1.73m2 (Non-) (test code = 1256907878) eGFR Calculation mL/min/1.73m2 () (test code = 6454821574) PAULA (test code = PAULA) Association of Glomerular Filtration Rate (GFR) and Staging of Kidney Disease* + --+ --+ ------+| GFR (mL/min/1.73 m2) ?| With Kidney Damage ?| ?Without Kidney Damage+ --------+ --------+ +| ?>90 ?| ?Stage one ?| ? Normal ?+ ---+ ---+ -------+| ?60-89 ?| ?Stage two ?| ? Decreased GFR ? + --+ --+ ------+| ?30-59 ?| ?Stage three ?| ? Stage three ? + --+ --+ ------+| ?15-29 ?| ?Stage four ? | ? Stage four ?+ ---+ ---+ -------+| ?<15 (or dialysis) ? ?| ?Stage five ? | ? Stage five ?+ ---+ ---+ -------+ *Each stage assumes the associated GFR level has been in effect for at least three months. ?Stages 1 to 5, with or without kidney disease, indicate chronic kidney disease. Notes: Determination of stages one and two (with eGFR >59mL/min/1.73 m2) requires estimation of kidney damage for at least three months as defined by structural or functional abnormalities of the kidney, manifested by either:Pathological abnormalities or Markers of kidney damage (including abnormalities in the composition of the blood or urine or abnormalities in imaging tests). Lab Interpretation Abnormal (test code = 84593-0) [facility]ano[facility] [id number] 23:30:00 Test Item Value Reference Range Interpretation Comments LIPASE (test code = 2950000837) 86 U/L 0-220 Lab Interpretation (test code = Normal 87180-6) [facility]CBC WITH [id number] 23:16:00 Test Item Value Reference Range Interpretation Comments WBC (test code = See_Comment [Automated 6690-2) message] The sy stem which generated this result transmitted reference range : 4.30 - 11.10 10*3/?L. The reference range was not used to interpret this result as normal/abnormal . RBC (test code = See_Comment [Automated 789-8) message] The sy stem which generated this result transmitted reference range : 3.93 - 5.25 10*6/?L. The reference range was not used to interpret this result as normal/abnormal . HGB (test code = 12.5 g/dL 11.6-15 718-7) HCT (test code = 37.5 % 35.7-45.2 4544-3) MCV (test code = 92.1 fL 80.6-95.5 787-2) MCH (test code = 30.7 pg 25.9-32.8 785-6) MCHC (test code = 33.3 g/dL 31.6-35.1 786-4) RDW-SD (test code = 45.1 fL 39-49.9 18950-6) RDW-CV (test code = 13.3 % 12-15.5 788-0) PLT (test code = See_Comment [Automated 777-3) message] The sy stem which generated this result transmitted reference range : 166 - 358 10*3/ ?L. The reference r micah was not used to interpret this result as normal/abnormal . MPV (test code = 9.3 fL 9.5-12.9 L 07337-7) NRBC/100 WBC (test See_Comment [Automat ed code = 3921585774) message] The system which generated this result transmitted reference range : 0.0 - 10.0 /100 WBCs. The refer ence range was not u sed to interpret th is result as normal/abnormal . NRBC x10^3 (test code <0.01 See_Comment [Auto mated = 4545179633) message] The s ystem which generated this result transmitted reference range : 10*3/?L. The reference range was not used to interpret this result as normal/abnormal . GRAN MAT (NEUT) % 52.8 % (test code = 770-8) IMM GRAN % (test code 0.20 % = 7629079910) LYMPH % (test code = 36.2 % 736-9) MONO % (test code = 7.3 % 5905-5) EOS % (test code = 2.4 % 713-8) BASO % (test code = 1.1 % 706-2) GRAN MAT x10^3(ANC) 2.47 10*3/uL 1.88-7.09 (test code = 8705330533) IMM GRAN x10^3 (test <0.03 0-0.06 code = 7521010655) LYMPH x10^3 (test code 1.69 10*3/uL 1.32-3.29 = 731-0) MONO x10^3 (test code 0.34 10*3/uL 0.33-0.92 = 742-7) EOS x10^3 (test code = 0.11 10*3/uL 0.03-0.39 711-2) BASO x10^3 (test code 0.05 10*3/uL 0.01-0.07 = 704-7) Lab Interpretation Abnormal (test code = 40082-2) [facility] [id number] 16:58:56* * * * * * * * ORIGINAL REPORT * * * * * * * *EXAM: XR CHEST 1 VW HISTORY: Hx of cardiomegaly and angina, recent ED visit for CP, states thather heart is? COMPARISON: None. FINDINGS: The heart and great vessels are normal and the lungs are well expanded andclear.[facility], Radiant Results Inft User - 03/06/2019 11:59 AM CDT* * * * * * * * ORIGINAL REPORT * * * * * * * *EXAM: XR CHEST 1 VWHISTORY: Hx of cardiomegaly and angina, recent ED visit for CP, states thather heart is COMPARISON: None.FINDINGS:The heart and great vessels are normal and the lungs are well expanded andclear.[facility]
[2021-08-29 18:31] LABS: Urine Blood Negative (Negative); Urine Glucose Negative (Negative); Urine Protein Negative (Negative); Urine pH 5.5 (5.0-7.0)
[2021-08-29 18:35] LABS: Absolute Lymphocytes (CBC) 1.4 K/uL (0.7-4.9); Hematocrit 39.4 % (36.0-45.0); Lymphocytes % 27.5 % (15.3-44.8); MPV 7.8 fL (7.6-11.3); RBC Red Blood Cell Count 4.45 M/uL (3.86-4.86)
[2021-08-29 18:37] LABS: Protime INR 0.97
--- NOTE | 2021-08-29 19:00 | RAD REPORT ---
EXAM DESCRIPTION: RAD - Chest Single View - 08/29/2021 6:24 pm CLINICAL HISTORY: PALPITATIONS COMPARISON: Portable 03/16/2021 TECHNIQUE: AP portable chest image was obtained 08/29/2021 6:24 pm . FINDINGS: Lungs are clear. Heart and vasculature are normal. No measurable pleural effusion and no p neumothorax. No acute bony abnormality seen. No acute aortic findings suspected. IMPRESSION: No acute cardiopulmonary process. No significant change from comparison study.
[2021-08-29 19:16] LABS: Barbiturates NEGATIVE (NEGATIVE); Benzodiazepines NEGATIVE (NEGATIVE); Cocaine NEGATIVE (NEGATIVE); METHAMPHETAM NEGATIVE (NEGATIVE); Methadone NEGATIVE (NEGATIVE); Opiates POSITIVE (NEGATIVE); Phencyclidine NEGATIVE (NEGATIVE); THC Cannibis NEGATIVE (NEGATIVE)
[2021-08-29 19:16] LABS: ALT/SGPT 24 U/L (12-78); AST/SGOT 17 U/L (15-37); Albumin 3.6 g/dL (3.4-5.0); Alkaline Phosphatase 63 U/L (45-117); BUN Blood Urea Nitrogen 15 mg/dL (7-18); Bicarbonate 23 mmol/L (21-32); Bilirubin Direct < 0.1 mg/dL (0-0.2); Bilirubin Total < 0.1 mg/dL (0.2-1.0); Glucose Level 95 mg/dL (74-106); NT PRO-BNP 147 pg/mL (<125); Potassium 3.9 mmol/L (3.5-5.1); Protein, Total 7.8 g/dL (6.4-8.2); Sodium Level 137 mmol/L (136-145)
--- NOTE | 2021-08-29 19:48 | ER ---
Nurse's Notes [facility] Name: Denise Wick Age: 41 yrs Sex: Female : 1980 Arrival Date: 08/29/2021 Time: 17:44 Bed 17 Private MD: Diagnosis: Palpitations Presentation: 08/29 17:49 Chief complaint: Patient states: chest pain x 3 days with SOB that comes and goes. vg1 States 'cold sweats' and 'numbness' to left arm. Pt took hydrocodone 10/325 mg at 1700. 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 Denies N/V, but has had diarrhea 6x in three days. Coronavirus screen: Vaccine status: Patient reports being unvaccinated. Client denies travel out of the [place] in the last 14 days. Ebola Screen: Patient negative for fever greater than or equal to 101.5 degrees Fahrenheit, and additional compatible Ebola Virus Disease symptoms. Initial Sepsis Screen: Does the patient meet any 2 criteria? HR > 90 bpm. Does the patient have a suspected source of infection? No. Patient's initial sepsis screen is negative. Risk Assessment: Do you want to hurt yourself or someone else? Patient reports no desire to harm self or others. Onset of symptoms was August 26, 2021. 17:49 Method Of Arrival: Ambulatory vg1 17:49 Acuity: CHRISTINA 2 vg1 Triage Assessment: 17:53 General: Appears in no apparent distress. uncomfortable, Behavior is calm, cooperative. vg1 Pain: Complains of pain in chest. Cardiovascular: Patient's skin is warm and dry. Historical: - Allergies: 17:53 Codeine; vg1 17:53 PENICILLINS; vg1 - PMHx: 17:53 Angina; Anxiety; Bipolar disorder; Hypertension; Hypothyroidism; vg1 - PSHx: 17:53 section; Ligation of fallopian tube; vg1 - Immunization history:: Client reports having NOT received the Covid vaccine. - Social history:: Smoking status: Patient reports the use of cigarette tobacco products, smokes one pack cigarettes per day. Screenin:30 Abuse screen: Denies threats or abuse. [facility] 18:30 Tuberculosis screening: No symptoms or risk factors identified. Fall Risk None jh6 identified. 19:56 Nutritional screening: No deficits noted. sv1 Assessment: 19:01 Pain: Complains of pain in chest Pain does not radiate. Pain began suddenly, Is jh6 intermittent. Cardiovascular: No deficits noted. Reports chest pain, palpitations. Vital Signs: 17:49 BP 173 / 100; Pulse 110; Resp 19; Temp 98.6(TE); Pulse Ox 100% ; Weight 77.11 kg; vg1 Height 5 ft. 6 in. (167.64 cm); Pain 7/10; 18:30 BP 138 / 89; Pulse 88; Resp 18; Pulse Ox 100% ; jh6 19:56 BP 134 / 74 LA Supine (auto/); Pulse 87 MON; Resp 18; Temp 97.3; Pulse Ox 96% on R/A; sv1 Pain 2/10; 17:49 Body Mass Index 27.44 (77.11 kg, 167.64 cm) vg1 ED Course: 17:44 Patient arrived in ED. am2 17:53 Triage completed. vg1 17:53 Arm band placed on. vg1 17:55 Anson Cortez NP is PHCP. pm1 17:55 Noah Steven MD is Attending Physician. pm1 18:12 Alana Jay, DRISS is Primary Nurse. jh6 18:25 XRAY Chest (1 view) In Process Unspecified. EDMS 18:30 Inserted saline lock: 22 gauge in right antecubital area, using aseptic technique. jh6 Blood collected. 18:30 No provider procedures requiring assistance completed. jh6 19:21 Primary Nurse role handed off by Alana Jay, DRISS eb 19:55 Mina Nuñez, DRISS is Primary Nurse. sv1 19:56 Patient has correct armband on for positive identification. Bed in low position. Call sv1 light in reach. Side rails up X2. monitor technician on. Pulse ox on. NIBP on. 19:56 IV discontinued. Patient maintains SpO2 saturation greater than 95% on room air. sv1 Administered Medications: No medications were administered Outcome: 19:48 Discharge ordered by MD. pm1 19:56 Discharged to home ambulatory. sv1 19:56 Condition: stable 19:56 Discharge instructions given to patient, family. 19:58 Patient left the ED. sv1 Signatures: Dispatcher [employer] EDMS Anson Cortez [employer] [employer]ESS[employer] pm1 Mena Lopes am2 Aarti Ruiz Victoria, RN RN vg1 Alana Jay, RN RN jh6 Mina Nuñez, DRISS RN sv1 Corrections: (The following items were deleted from the chart) 17:54 17:49 Chief complaint: Patient states: chest pain x 3 days with SOB that comes and vg1 goes. States 'cold sweats' and 'numbness' to left arm. 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 Denies N/V, but has had diarrhea 6x in three days. vg1
--- NOTE | 2021-08-29 19:49 | EDPHYS ---
Physician Documentation [facility] Name: Denise Wick Age: 41 yrs Sex: Female : 1980 Arrival Date: 08/29/2021 Time: 17:44 Bed 17 Private MD: ED Physician Noah Steven HPI: 08/29 18:02 This 41 yrs old Female presents to ER via Ambulatory with complaints of Chest Pain, pm1 racing heart rate. 18:02 The patient presents with a history of heart racing. Context: The symptoms occur with pm1 stress. Onset: The symptoms/episode began/occurred 3 day(s) ago. Duration: The patient or guardian reports multiple episodes, that have now resolved. Modifying factors: The symptoms are aggravated by stress, fighting with . Associated signs and symptoms: Pertinent positives: chest pain, Pertinent negatives: SOB. Severity of symptoms: in the emergency department the symptoms are worse. The patient has not recently seen a physician. Patient reports that she has not taken her medications since April. Historical: - Allergies: 17:53 Codeine; vg1 17:53 PENICILLINS; vg1 - PMHx: 17:53 Angina; Anxiety; Bipolar disorder; Hypertension; Hypothyroidism; vg1 - PSHx: 17:53 section; Ligation of fallopian tube; vg1 - Immunization history:: Client reports having NOT received the Covid vaccine. - Social history:: Smoking status: Patient reports the use of cigarette tobacco products, smokes one pack cigarettes per day. ROS: 18:02 Constitutional: Negative for fever, chills, and weight loss. pm1 18:02 Respiratory: Negative for shortness of breath, cough, wheezing, and pleuritic chest pain, Abdomen/GI: Negative for abdominal pain, nausea, vomiting, diarrhea, and constipation, Back: Negative for injury and pain, MS/Extremity: Negative for injury and deformity, Skin: Negative for injury, rash, and discoloration, Neuro: Negative for headache, weakness, numbness, tingling, and seizure. 18:02 Cardiovascular: Positive for chest pain, palpitations, Negative for edema, orthopnea. 18:02 All other systems are negative. Exam: 18:02 Constitutional: This is a well developed, well nourished patient who is awake, alert, pm1 and in no acute distress. Head/Face: Normocephalic, atraumatic. 18:02 Back: No spinal tenderness. No costovertebral tenderness. Full range of motion. Skin: Warm, dry with normal turgor. Normal color with no rashes, no lesions, and no evidence of cellulitis. MS/ Extremity: Pulses equal, no cyanosis. Neurovascular intact. Full, normal range of motion. 18:02 Cardiovascular: Exam negative for acute changes, Rate: normal, Rhythm: regular, Pulses: no pulse deficits are appreciated. 18:02 Respiratory: Exam negative for acute changes, the patient does not display signs of respiratory distress, Respirations: normal, Breath sounds: are clear throughout. 18:02 Neuro: Exam negative for acute changes, Orientation: is normal, Mentation: is normal, Motor: is normal, moves all fours. Vital Signs: 17:49 BP 173 / 100; Pulse 110; Resp 19; Temp 98.6(TE); Pulse Ox 100% ; Weight 77.11 kg; vg1 Height 5 ft. 6 in. (167.64 cm); Pain 7/10; 18:30 BP 138 / 89; Pulse 88; Resp 18; Pulse Ox 100% ; jh6 19:56 BP 134 / 74 LA Supine (auto/); Pulse 87 MON; Resp 18; Temp 97.3; Pulse Ox 96% on R/A; sv1 Pain 2/10; 17:49 Body Mass Index 27.44 (77.11 kg, 167.64 cm) vg1 MDM: 17:56 Patient medically screened. pm1 19:48 Data reviewed: vital signs. Data interpreted: Pulse oximetry: on room air is 100 %. pm1 Interpretation: normal. 19:48 Counseling: I had a detailed discussion with the patient and/or guardian regarding: the pm1 historical points, exam findings, and any diagnostic results supporting the discharge/admit diagnosis, lab results, radiology results, the need for outpatient follow up, to return to the emergency department if symptoms worsen or persist or if there are any questions or concerns that arise at home. 08/29 18:01 Order name: Basic Metabolic Panel; Complete Time: 19:27 pm1 08/29 18:01 Order name: CBC with Diff; Complete Time: 18:42 pm1 08/29 18:01 Order name: LFT's; Complete Time: 19:27 pm1 08/29 18:01 Order name: Magnesium; Complete Time: 19:27 pm1 08/29 18:01 Order name: NT PRO-BNP; Complete Time: 19:27 pm1 08/29 18:01 Order name: PT-INR; Complete Time: 18:42 pm1 08/29 18:01 Order name: Troponin HS; Complete Time: 19:27 pm1 08/29 18:01 Order name: XRAY Chest (1 view); Complete Time: 19:09 pm1 08/29 18:01 Order name: UDS; Complete Time: 19:27 pm1 08/29 18:01 Order name: TSH; Complete Time: 19:27 pm1 08/29 18:31 Order name: Urine Dipstick-Ancillary; Complete Time: 18:42 EDMS 08/29 18:43 Order name: Urine --Ancillary (enter results) eb 08/29 18:44 Order name: Urine --Ancillary EDMS 08/29 18:01 Order name: EKG; Complete Time: 18:02 pm1 08/29 18:01 Order name: Cardiac monitoring; Complete Time: 19:01 pm1 08/29 18:01 Order name: EKG - Nurse/Tech; Complete Time: 19:01 pm1 08/29 18:01 Order name: IV Saline Lock; Complete Time: 19:01 pm1 08/29 18:01 Order name: Labs collected and sent; Complete Time: 19:01 pm1 08/29 18:01 Order name: O2 Per Protocol; Complete Time: 19:01 pm1 08/29 18:01 Order name: O2 Sat Monitoring; Complete Time: 19:01 pm1 08/29 18:01 Order name: Urine Dipstick-Ancillary (obtain specimen); Complete Time: 19:01 pm1 08/29 18:01 Order name: Urine Test (obtain specimen); Complete Time: 19:01 pm1 Administered Medications: No medications were administered Disposition Summary: 08/29/21 19:48 Discharge Ordered Location: Home pm1 Problem: new pm1 Symptoms: have improved pm1 Condition: Stable pm1 Diagnosis - Palpitations pm1 Followup: pm1 - With: Emergency Department - When: As needed - Reason: Worsening of condition Followup: pm1 - With: Private Physician - When: 2 - 3 days - Reason: Recheck today's complaints, Continuance of care, Re-evaluation by your physician Discharge Instructions: - Discharge Summary Sheet pm1 - Palpitations pm1 Forms: - Medication Reconciliation Form pm1 - Thank You Letter pm1 - Antibiotic Education pm1 - Prescription Opioid Use pm1 Prescriptions: - Metoprolol Tartrate 50 mg Oral Tablet - take 1 tablet by ORAL route 2 times per day take with meal; 20 tablet; Refills: pm1 0, Product Selection Permitted Addendum: 08/31/2021 08:13 Co-signature as Attending Physician, Noah Steven MD I agree with the assessment and r n plan of care. Attestation: The patient's history, exam findings, diagnostics, and a summary of any interventions or procedures was reviewed in detail with Anson Cortez NP. Signatures: Dispatcher [employer] EDMS Noah Steven MD MD rn Marinas, Patrick, NP STATISTICAL TYPIST pm1 Veronica Vasquez RN RN vg1
[2021-08-29 20:07] VITALS: BP 134/74; TEMP 97.3; O2SAT 96
== END 2021-08-29 19:58 | disposition home or self-care (01) ==
LOC: ER 17:42
DX: R00.2 Palpitations (principal); I10 Essential (primary) hypertension; F17.210 Nicotine dependence, cigarettes, uncomplicated; Z88.0 Allergy status to penicillin; Z88.5 Allergy status to narcotic agent
CPT/HCPCS: 36415; 71045; 80048; 80076; 80307; 81003; 81025; 83735; 83880; 84443; 84484; 85025; 85610; 93005; 99285

== ENCOUNTER 2021-09-23 21:44 | Observation (INO) | payer OTHER ==
--- OUTSIDE RECORDS SUMMARY | 2021-09-23 21:56 | XMS REPORT | Continuity of Care Document ---
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 (eight) Branch hours as needed for Nausea and Vomiting (N/V). ondansetron 2020-0 Yes [id number] 4mg Take 1 Univers 4 mg 3-24 tablet by ity of disintegrat 00:00: mouth [place] ing tablet 00 every 8 Medica l (eight) Branch hours as needed for Nausea and Vomiting (N/V). ondansetron 2020- No [id number] 4mg Take 1 Univers 4 mg 3-24 05-30 tablet by ity of disintegrat 00:00: 00:00 mouth [place] tablet 00 :00 every 8 Medica l (eight) Branch hours as needed for Nausea and Vomiting (N/V). ondansetron 2020- No [id number] 4mg Take 1 [facility] 4 mg 3-24 03-24 tablet by ity of disintegrat 00:00: 00:00 mouth [place] tablet 00 :00 every 8 Medica l (eight) Branch hours as needed for Nausea and Vomiting (N/V). iohexol 2020- No [id number] 120mL 120 mL, Univers (OMNIPAQUE 3-14 03-14 Intravenou it y of 350 11:45: 11:27 s, ONCE, 1 [place] BULK-100 00 :00 dose, [facility] mL) 09/06/20 at Branch injection 0645, 120 mL Routine KCL 20 mEq 2020-0 Yes [id number] 20meq Take 1 Univers tablet 3-14 tablet by ity of 00:00: mouth [place] 00 daily. Medical Branch KCL 20 mEq 2020-0 Yes [id number] 20meq Take 1 Univers tablet 3-14 tablet by ity of 00:00: mouth [place] 00 daily. Medical Branch KCL 20 mEq 2020-0 Yes [id number] 20meq Take 1 Univers tablet 3-14 tablet by ity of 00:00: mouth [place] 00 daily. [facility] Branch KCL 20 mEq 2020-0 Yes [id number] 20meq Take 1 Univers tablet 3-14 tablet by ity of 00:00: mouth [place] 00 daily. [facility] Branch KCL 20 mEq 2020-0 Yes [id number] 20meq Take 1 Univers tablet 3-14 tablet by ity of 00:00: mouth [place] 00 daily. [facility] Branch KCL 20 mEq 2020-0 Yes [id number] 20meq Take 1 Univers tablet 3-14 tablet by ity of 00:00: mouth [place] 00 daily. [facility] Branch KCL 20 mEq 2022020- No [id number] 20meq Take 1 Univers tablet -14 05-30 tablet by ity of 00:00: 00:00 mouth [place] 00 :00 daily. Medical Branch furosemide 2020- No [id number] 40mg Take 1 Univers (LASIX) 40 314 03-18 tablet by ity of mg tablet 00:00: 04:59 mouth [place] 00 :00 daily for Medical 3 days. Branch hydrOXYzine 2020- No [id number] 25mg 25 mg, Univers (ATARAX) 3-10 Oral, ity of tablet 25 02:00: 01:21 ONCE, 1 [place] mg 00 :00 dose, [facility] Medical 09/01/20 at Branch 2000, RAJANI hydralAZINE 2020- No [id number] 10mg 10 mg, Univers (APRESOLINE 3-10 Slow IV ity of ) injection 01:30: 00:25 Push, [place] 10 mg 00 :00 ONCE, 1 Medical dose, [facility] 09/01/20 at 1930, STAT
In dication: Hypertensi ve Emergency ondansetron 2020- No [id number] 4mg 4 mg, Slow Univers (ZOFRAN 09-02-10 IV Push, ity of (PF)) 01:15: 00:10 ONCE, 1 [place] injection 4 00 :00 dose, [facility] ical mg 09/01/20 at Branch 1915, RAJANI hydrOXYzine Yes [id number] 25mg Take 1 Univers 25 mg 3-09 tablet by ity of tablet 00:00: mouth [place] 00 every 6 Medical (six) Branch hours as needed for Anxiety. hydrOXYzine Yes [id number] 25mg Take 1 Univers 25 mg 3-09 tablet by ity of tablet 00:00: mouth [place] 00 every 6 Medical (six) Branch hours as needed for Anxiety. hydrOXYzine Yes [id number] 25mg Take 1 Univers 25 mg 3-09 tablet by ity of tablet 00:00: mouth [place] 00 every 6 Medical (six) Branch hours as needed for Anxiety. hydrOXYzine Yes [id number] 25mg Take 1 Univers 25 mg 3-09 tablet by ity of tablet 00:00: mouth [place] 00 every 6 Medical (six) Branch hours as needed for Anxiety. hydrOXYzine Yes [id number] 25mg Take 1 Univers 25 mg 3-09 tablet by ity of tablet 00:00: mouth [place] 00 every 6 Medical (six) Branch hours as needed for Anxiety. hydrOXYzine Yes [id number] 25mg Take 1 [facility] 25 mg 3-09 tablet by ity of tablet 00:00: mouth [place] 00 every 6 Medical (six) Branch hours as needed for Anxiety. hydrOXYzine Yes [id number] 25mg Take 1 Univers 25 mg 3-09 tablet by ity of tablet 00:00: mouth [place] 00 every 6 Medical (six) Branch hours as needed for Anxiety. hydrOXYzine 2020- No [id number] 25mg Take 1 Univers 25 mg 3-09 05-30 tablet by ity of tablet 00:00: 00:00 mouth [place] 00 :00 every 6 Medical (six) Branch hours as needed for Anxiety. hydroCHLORO 2020- No [id number] 25mg Take 1 Univers thiazide 25 3-09 04-09 tablet by it y of mg tablet 00:00: 04:59 mouth [place] 00 :00 every Medical morning Branch and evening for 30 days. hydroCHLORO 2020- No [id number] 25mg Take 1 Univers thiazide 25 3-09 04-09 tablet by it y of mg tablet 00:00: 04:59 mouth [place] 00 :00 every Medical morning Branch and evening for 30 days. hydroCHLORO 2020- No [id number] 25mg Take 1 Univers thiazide 25 3-09 04-09 tablet by it y of mg tablet 00:00: 04:59 mouth [place] 00 :00 every Medical morning Branch and evening for 30 days. hydrOXYzine 2020- No [id number] 25mg Take 1 Univers 25 mg 3-09 [...] mcg by ity of tablet 02:02: mouth [place] [address] daily. Medical Branch meloxicam 2019- Yes 7.5mg Take 7.5 Uni vers 7.5 mg 0-21 mg by ity of tablet 02:02: mouth [place] [address] daily. Medical Branch metoprolol 2019-06 Yes 25mg Take 25 mg U nivers tartrate 25 0-21 by mouth ity of mg tablet 02:02: daily. [place] [address] Medical Branch omeprazole 2019- Yes 20mg Take 20 mg U nivers 20 mg 0-21 by mouth ity of capsule 02:02: daily. [place] [address] Medical Branch pravastatin 2019-06 Yes 20mg Take 20 mg Univers 20 mg 0-21 by mouth ity of tablet 02:02: at [place] [address] bedtime. Medical Branch triamcinolo 2019-06 Yes .1% Apply 0.1 U nivers ne 0-21 % to ity of acetonide/l 02:02: area(s) 2 [place] (two) Medical (ARISTOCORT times Branch A TOPICAL) daily. gabapentin 2019-06 Yes 300mg Take 300 Un sushant 300 mg 0-21 mg by ity of capsule 02:02: mouth 2 [place] [address] (two) Medical times Branch daily. levothyroxi 2019-06 Yes 100ug Take 100 U nivers ne 100 mcg 0-21 mcg by ity of tablet 02:02: mouth [place] [address] daily. Medical Branch meloxicam 2019-06 Yes 7.5mg Take 7.5 Uni vers 7.5 mg 0-21 mg by ity of tablet 02:02: mouth [place] [address] daily. Medical Branch metoprolol 2019- Yes 25mg Take 25 mg U nivers tartrate 25 0-21 by mouth ity of mg tablet 02:02: daily. [place] [address] Medical Branch omeprazole 2019- Yes 20mg Take 20 mg U nivers 20 mg 0-21 by mouth ity of capsule 02:02: daily. [place] [address] Medical Branch pravastatin 2019-06 Yes 20mg Take 20 mg Univers 20 mg 0-21 by mouth ity of tablet 02:02: at [place] [address] bedtime. Medical Branch triamcinolo 2019- Yes .1% Apply 0.1 U nivers ne 0-21 % to ity of acetonide/l 02:02: area(s) 2 [place] .s[place]. [place] (two) Medical (ARISTOCORT times Branch A TOPICAL) daily. gabapentin 2019-06 Yes 300mg Take 300 Un sushant 300 mg 0-21 mg by ity of capsule 02:02: mouth 2 [place] [address] (two) Medical times Branch daily. levothyroxi 2019-06 Yes 100ug Take 100 U nivers ne 100 mcg 0-21 mcg by ity of tablet 02:02: mouth [place] [address] daily. Medical Branch meloxicam 2019-06 Yes 7.5mg Take 7.5 Uni vers 7.5 mg 0-21 mg by ity of tablet 02:02: mouth [place] [address] daily. Medical Branch metoprolol 2019-06 Yes 25mg Take 25 mg U nivers tartrate 25 0-21 by mouth ity of mg tablet 02:02: daily. [place] [address] Medical Branch omeprazole 2019- Yes 20mg Take 20 mg U nivers 20 mg 0-21 by mouth ity of capsule 02:02: daily. [address] Branch pravastatin 2019-06 Yes 20mg Take 20 mg Univers 20 mg 0-21 by mouth ity of tablet 02:02: at [place] [address] bedtime. Medical Branch triamcinolo 2019-06 Yes .1% Apply 0.1 U nivers ne 0-21 % to ity of acetonide/l 02:02: area(s) 2 [place]. [place] (two) Medical (ARISTOCORT times Branch A TOPICAL) daily. gabapentin 2019-06 Yes 300mg Take 300 Un sushant 300 mg 0-21 mg by ity of capsule 02:02: mouth 2 [place] [address] (two) Medical times Branch daily. levothyroxi 2019-06 Yes 100ug Take 100 U nivers ne 100 mcg 0-21 mcg by ity of tablet 02:02: mouth [place] [address] daily. Medical Branch meloxicam 2019-06 Yes 7.5mg Take 7.5 Uni vers 7.5 mg 0-21 mg by ity of tablet 02:02: mouth [place] [address] daily. Medical Branch metoprolol 2019- Yes 25mg Take 25 mg U nivers tartrate 25 0-21 by mouth ity of mg tablet 02:02: daily. [address] Branch omeprazole 2019- Yes 20mg Take 20 mg U nivers 20 mg 0-21 by mouth ity of capsule 02:02: daily. [place] [address] Medical Branch pravastatin 2020- Yes 20mg Take 20 mg Univers 20 mg 0-21 by mouth ity of tablet 02:02: at [place] [address] bedtime. Medical Branch triamcinolo 2020- Yes .1% Apply 0.1 U nivers ne 0-21 % to ity of acetonide/l 02:02: area(s) 2 [place] .s.[place]. 34 (two) Medical (ARISTOCORT times Branch A TOPICAL) daily. gabapentin 2019- Yes 300mg Take 300 Un sushant 300 mg 0-21 mg by ity of capsule 02:02: mouth 2 [place] [address] (two) Medical times Branch daily. levothyroxi 2019- Yes 100ug Take 100 U nivers ne 100 mcg 0-21 mcg by ity of tablet 02:02: mouth [place] [address] daily. Medical Branch meloxicam 2019-06 Yes 7.5mg Take 7.5 Uni vers 7.5 mg 0-21 mg by ity of tablet 02:02: mouth [place] [address] daily. Medical Branch metoprolol 2019- Yes 25mg Take 25 mg U nivers tartrate 25 0-21 by mouth ity of mg tablet 02:02: daily. [place] [address] Medical Branch omeprazole 2019- Yes 20mg Take 20 mg U nivers 20 mg 0-21 by mouth ity of capsule 02:02: daily. [place] [address] Medical Branch pravastatin 2019- Yes 20mg Take 20 mg Univers 20 mg 0-21 by mouth ity of tablet 02:02: at [place] [address] bedtime. Medical Branch triamcinolo 2019- Yes .1% Apply 0.1 U nivers ne 0-21 % to ity of acetonide/l 02:02: area(s) 2 [place] .[place]. 34 (two) Medical (ARISTOCORT times Branch A TOPICAL) daily. gabapentin 2019- Yes 300mg Take 300 Un sushant 300 mg 0-21 mg by ity of capsule 02:02: mouth 2 [place] [address] (two) Medical times Branch daily. levothyroxi 2019- Yes 100ug Take 100 U nivers ne 100 mcg 0-21 mcg by ity of tablet 02:02: mouth [place] [address] daily. Medical Branch meloxicam 2019- Yes 7.5mg Take 7.5 Uni vers 7.5 mg 0-21 mg by ity of tablet 02:02: mouth [place] [address] daily. Medical Branch metoprolol 2020- Yes 25mg Take 25 mg U nivers tartrate 25 0-21 by mouth ity of mg tablet 02:02: daily. [place] [address] Medical Branch omeprazole 2019- Yes 20mg Take 20 mg U nivers 20 mg 0-21 by mouth ity of capsule 02:02: daily. [place] [address] Medical Branch pravastatin 2019- Yes 20mg Take 20 mg Univers 20 mg 0-21 by mouth ity of tablet 02:02: at [place] [address] bedtime. Medical Branch triamcinolo 2019- Yes .1% Apply 0.1 U nivers ne 0-21 % to ity of acetonide/l 02:02: area(s) 2 [place] .s.[place]. 34 (two) Medical (ARISTOCORT times Branch A TOPICAL) daily. gabapentin 2019-06 Yes 300mg Take 300 Un sushant 300 mg 0-21 mg by ity of capsule 02:02: mouth 2 [place] [address] (two) Medical times Branch daily. levothyroxi 2019- Yes 100ug Take 100 U nivers ne 100 mcg 0-21 mcg by ity of tablet 02:02: mouth [place] [address] daily. Medical Branch meloxicam 2019- Yes 7.5mg Take 7.5 Uni vers 7.5 mg 0-21 mg by ity of tablet 02:02: mouth [place] [address] daily. Medical Branch metoprolol 2019- Yes 25mg Take 25 mg U nivers tartrate 25 0-21 by mouth ity of mg tablet 02:02: daily. [place] [address] Medical Branch omeprazole 2019- Yes 20mg Take 20 mg U nivers 20 mg 0-21 by mouth ity of capsule 02:02: daily. [place] [address] Medical Branch pravastatin 2019- Yes 20mg Take 20 mg Univers 20 mg 0-21 by mouth ity of tablet 02:02: at [place] [address] bedtime. Medical Branch triamcinolo 2019- Yes .1% Apply 0.1 U nivers ne 0-21 % to ity of acetonide/l 02:02: area(s) 2 [place] .[place]. 34 (two) Medical (ARISTOCORT times Branch A TOPICAL) daily. gabapentin 2019- Yes 300mg Take 300 Un sushant 300 mg 0-21 mg by ity of capsule 02:02: mouth 2 [place] [address] (two) Medical times Branch daily. levothyroxi 2019-06 Yes 100ug Take 100 U nivers ne 100 mcg 0-21 mcg by ity of tablet 02:02: mouth [place] [address] daily. Medical Branch meloxicam 2019-06 Yes 7.5mg Take 7.5 Uni vers 7.5 mg 0-21 mg by ity of tablet 02:02: mouth [place] [address] daily. Medical Branch metoprolol 2019-06 Yes 25mg Take 25 mg U nivers tartrate 25 0-21 by mouth ity of mg tablet 02:02: daily. [place] [address] Medical Branch omeprazole 2019-06 Yes 20mg Take 20 mg U nivers 20 mg 0-21 by mouth ity of capsule 02:02: daily. [place] [address] Medical Branch pravastatin 2019-06 Yes 20mg Take 20 mg Univers 20 mg 0-21 by mouth ity of tablet 02:02: at [place] [address] bedtime. Medical Branch triamcinolo 2019-06 Yes .1% Apply 0.1 U nivers ne 0-21 % to ity of acetonide/l 02:02: area[facility]s) [facility] [place] [facility] Medical (ARISTOCORT times Branch A TOPICAL) daily. acetaminoph 2019-06- No [id number] 650mg Take 2 Univers en 325 mg 0-20 10-21 tablets by ity of tablet 00:00: 04:59 mouth [place] 00 :00 every 6 Medical (six) Branch hours as needed for Alternate with ibuprofen for pain scale 4-6. ibuprofen 2019-06- No [id number] 600mg Take 3 Univers 200 mg 0-20 10-21 tablets by ity of tablet 00:00: 04:59 mouth [place] 00 :00 every 6 Medical (six) Branch hours as needed (Alternate with acetaminop hen for pain). acetaminoph 2019-06- No [id number] 650mg Take 2 Univers en 325 mg 0-20 10-21 tablets by ity of tablet 00:00: 04:59 mouth [place] 00 :00 every 6 Medical (six) Branch hours as needed for Alternate with ibuprofen for pain scale 4-6. ibuprofen 2019-06- No [id number] 600mg Take 3 Univers 200 mg 0-20 10-21 tablets by ity of tablet 00:00: 04:59 mouth [place] 00 :00 every 6 Medical (six) Branch hours as needed (Alternate with acetaminop hen for pain). acetaminoph 2019-06 No [id number] 650mg Take 2 Univers en 325 mg 0-20 10-21 tablets by ity of tablet 00:00: 04:59 mouth [place] 00 :00 every 6 Medical (six) Branch hours as needed for Alternate with ibuprofen for pain scale 4-6. ibuprofen 2019-06- No [id number] 600mg Take 3 Univers 200 mg 0-20 10-21 tablets by ity of tablet 00:00: 04:59 mouth [place] 00 :00 every 6 Medical (six) Branch hours as needed (Alternate with acetaminop hen for pain). acetaminoph 2019-06- No [id number] 650mg Take 2 Univers en 325 mg 0-20 10-21 tablets by ity of tablet 00:00: 04:59 mouth [place] 00 :00 every 6 Medical (six) Branch hours as needed for Alternate with ibuprofen for pain scale 4-6. ibuprofen 2019-06 No [id number] 600mg Take 3 Univers 200 mg 0-20 10-21 tablets by ity of tablet 00:00: 04:59 mouth [place] 00 :00 every 6 Medical (six) Branch hours as needed (Alternate with acetaminop hen for pain). acetaminoph 2019-06 No [id number] 650mg Take 2 Univers en 325 mg 0-20 10-21 tablets by ity of tablet 00:00: 04:59 mouth [place] 00 :00 every 6 Medical (six) Branch hours as needed for Alternate with ibuprofen for pain scale 4-6. ibuprofen 2019-06- No [id number] 600mg Take 3 Univers 200 mg 0-20 10-21 tablets by ity of tablet 00:00: 04:59 mouth [place] 00 :00 every 6 Medical (six) Branch hours as needed (Alternate with acetaminop hen for pain). acetaminoph 2019-06- No [id number] 650mg Take 2 Univers en 325 mg 0-20 10-21 tablets by ity of tablet 00:00: 04:59 mouth [place] 00 :00 every 6 Medical (six) Branch hours as needed for Alternate with ibuprofen for pain scale 4-6. ibuprofen 2019-06- No [id number] 600mg Take 3 Univers 200 mg 0-20 10-21 tablets by ity of tablet 00:00: 04:59 mouth [place] 00 :00 every 6 Medical (six) Branch hours as needed (Alternate with acetaminop hen for pain). acetaminoph 2019-06- No [id number] 650mg Take 2 Univers en 325 mg 0-20 10-21 tablets by ity of tablet 00:00: 04:59 mouth [place] 00 :00 every 6 Medical (six) Branch hours as needed for Alternate with ibuprofen for pain scale 4-6. ibuprofen 2019-06- No [id number] 600mg Take 3 Univers 200 mg 0-20 10-21 tablets by ity of tablet 00:00: 04:59 mouth [place] 00 :00 every 6 Medical (six) Branch hours as needed (Alternate with acetaminop hen for pain). acetaminoph 2019-06- No [id number] 650mg Take 2 Univers en 325 mg 0-20 10-21 tablets by ity of tablet 00:00: 04:59 mouth [place] 00 :00 every 6 Medical (six) Branch hours as needed for Alternate with ibuprofen for pain scale 4-6. ibuprofen 2019-06- No [id number] 600mg Take 3 Univers 200 mg 0-20 10-21 tablets by ity of tablet 00:00: 04:59 mouth [place] 00 :00 every 6 Medical (six) Branch hours as needed (Alternate with acetaminop hen for pain). acetaminoph 2019-06- No [id number] 650mg Take 2 Univers en 325 mg 0-20 10-21 tablets by ity of tablet 00:00: 04:59 mouth [place] 00 :00 every 6 Medical (six) Branch hours as needed for Alternate with ibuprofen for pain scale 4-6. ibuprofen 2019-06- No [id number] 600mg Take 3 Univers 200 mg 0-20 10-21 tablets by ity of tablet 00:00: 04:59 mouth [place] 00 :00 every 6 Medical (six) Branch hours as needed (Alternate with acetaminop hen for pain). acetaminoph 2019-06- No [id number] 650mg Take 2 Univers en 325 mg 0-20 10-21 tablets by ity of tablet 00:00: 04:59 mouth [place] 00 :00 every 6 Medical (six) Branch hours as needed for Alternate with ibuprofen for pain scale 4-6. ibuprofen 2019-06- No [id number] 600mg Take 3 Univers 200 mg 0-20 10-21 tablets by ity of tablet 00:00: 04:59 mouth [place] 00 :00 every 6 Medical (six) Branch hours as needed (Alternate with acetaminop hen for pain). acetaminoph 2019-06- No [id number] 650mg Take 2 Univers en 325 mg 0-20 10-21 tablets by ity of tablet 00:00: 04:59 mouth [place] 00 :00 every 6 Medical (six) Branch hours as needed for Alternate with ibuprofen for pain scale 4-6. ibuprofen 2019-06- No [id number] 600mg Take 3 Univers 200 mg 0-20 10-21 tablets by ity of tablet 00:00: 04:59 mouth [place] 00 :00 every 6 Medical (six) Branch hours as needed (Alternate with acetaminop hen for pain). ibuprofen 2019-06- No [id number] 600mg Take 3 Univers 200 mg 0-20 10-21 tablets by ity of tablet 00:00: 04:59 mouth [place] 00 :00 every 6 Medical (six) Branch hours as needed (Alternate with acetaminop hen for pain). ibuprofen 2019-06- No [id number] 600mg Take 3 Univers 200 mg 0-20 10-21 tablets by ity of tablet 00:00: 04:59 mouth [place] 00 :00 every 6 Medical (six) Branch hours as needed (Alternate with acetaminop hen for pain). ibuprofen 2019-06- No [id number] 600mg Take 3 Univers 200 mg 0-20 10-21 tablets by ity of tablet 00:00: 04:59 mouth [place] 00 :00 every 6 Medical (six) Branch hours as needed (Alternate with acetaminop hen for pain). acetaminoph 2019-06- No [id number] 650mg Take 2 Univers en 325 mg 0-20 05-30 tablets by ity of tablet 00:00: 00:00 mouth [place] 00 :00 every 6 Medical (six) Branch hours as needed for Alternate with ibuprofen for pain scale 4-6. ALPRAZolam 2019-06 Yes .25mg 0.25 mg, Un sushant (XANAX) 0-19 Oral, BID, ity of tablet 0.25 01:00: First dose [place] mg 00 on [facility] 04/12/20 Branch at 2000, Until Discontinu ed, Routine ziprasidone 2020- 2020- No 20mg 20 mg, Uni vers (GEODON) 0-18 10-25 Intramuscu ity of injection 18:20: 18:19 lar, [place] 20 mg 44 :44 Q6HPRN, Medical Starting Branch [place] 04/12/20 at 1320, Until [place] 04/19/20 at 1319, Routine, Agitation carBAMazepi 2019- Yes 200mg 200 mg, Un sushant ne 0-18 Oral, ity of (TEGRETOL) 03:00: Q12H, [place] tablet 200 00 First dose Med ical mg on [facility] 04/11/20 at 2200, Until Discontinu ed, Routine methocarbam 2019- Yes 500mg 500 mg, Un sushant oL 0-18 Oral, QID, ity of (ROBAXIN) 01:00: First dose [place] tablet 500 00 on [facility] Medical 04/11/20 Branch at 2000, Until Discontinu ed, Routine metoprolol 2019- Yes 25mg 25 mg, Unive rs tartrate 0-18 Oral, BID, ity o f (LOPRESSOR) 01:00: First dose [place] tablet 25 00 on [facility] Medical 04/11/20 Branch at 2000, Until Discontinu ed, Routine HYDROcodone 2019- 2020- No 1{tbl} 1 tablet, Univers -acetaminop 0-17 10-17 Oral, ity of hen (NORCO 23:22: 23:30 ONCE, 1 [place] as 5) 5-325 mg 00 :00 dose, [facility] Med ical tablet 1 04/11/20 Branch tablet at 1830, Routine omeprazole 2020- Yes 20mg 20 mg, Unive rs (PRILOSEC) 0-17 Oral, ity of capsule 20 17:15: DAILY, [place] mg 00 First dose Medical on [facility] 04/11/20 at 1215, Until Discontinu ed, Routine levothyroxi 2019- Yes 100ug 100 mcg, U nivers ne 0-17 Oral, ity of (SYNTHROID) 17:15: QAM-0600, [place] tablet 100 00 First dose Med ical mcg on [facility] 04/11/20 at 1215, Until Discontinu ed, Routine D5W 0.45% 2019-06 2020- No IV Univers NaCl 004-13 Infusion, ity of (1/2NS) 1 L 17:15: 13:57 at 125 V[place]al as + KCL 20 00 :05 mL/hr, Medical mEq CONTINUOUS Branch , Starting 04/11/20 at 1215, Until 04/13/20 at 0857, Routine acetaminoph 2019-06 Yes 650mg 650 mg, Un sushant en 0-17 Oral, ity of (TYLENOL) 17:04: Q6HPRN, [place] tablet 650 27 Starting Medic al mg Sat Branch 04/11/20 at 1204, Until Discontinu ed, Routine, Pain (scale 1-3) docusate 2019-06 Yes 100mg 100 mg, Unive rs (COLACE) 0- Oral, ity of capsule 100 14:00: DAILY, [place] mg 00 First dose Medical on Sat Branch 04/11/20 at 0900, Until Discontinu ed, Routine iohexol 2019-06- No 120mL 120 mL, Unive rs (OMNIPAQUE 004-11 Intravenou it y of 350 12:33: 12:35 s, ONCE, 1 [place] BULK-100 00 :00 dose, Sat Medica l mL) 04/11/20 Branch injection at 0745, 120 mL Routine lactated 2019-06 2020- No 1000mL at 999 Univ ers ringers IV 0- 10-17 mL/hr, ity of infusion 12:00: 14:11 1,000 mL, V[place]al as 1,000 mL 00 :00 IV Medical Infusion, Branch ONCE, 1 dose, 04/11/20 at 0700, STAT LORazepam 2019-06- No 1mg 1 mg, Univer s (ATIVAN) 0-04-11 Oral, ity of tablet 1 mg 05:30: 04:28 ONCE, 1 [place] 00 :[place] dose, Sat Medical 04/11/20 Branch at 0030, RAJANI ketorolac 2019-06 2020- No 15mg 15 mg, Unive rs (TORADOL) 004-11 Slow IV ity of injection 03:45: 02:59 Push, [place] 15 mg 00 :00 ONCE, 1 Medical dose, Fri Branch 04/10/20 at 2245, Routine
faculty member approving Restricted medication : PEDRITO ROSADO clonazePAM 2019- Yes [id number] 1mg Take 1 U nivers (KLONOPIN) 0-17 tablet by ity of 1 mg tablet 00:00: mouth 3 [place] as 00 (three) Medical times Branch daily as needed (anxiety). clonazePAM 2019- Yes [id number] 1mg Take 1 U nivers (KLONOPIN) 0-17 tablet by ity of 1 mg tablet 00:00: mouth 3 [place] 00 (three) Medical times Branch daily as needed (anxiety). clonazePAM 2019- Yes [id number] 1mg Take 1 U nivers (KLONOPIN) 0-17 tablet by ity of 1 mg tablet 00:00: mouth 3 [place] 00 (three) Medical times Branch daily as needed (anxiety). clonazePAM 2019- Yes [id number] 1mg Take 1 U nivers (KLONOPIN) 0-17 tablet by ity of 1 mg tablet 00:00: mouth 3 [place] 00 (three) Medical times Branch daily as needed (anxiety). clonazePAM 2019- Yes [id number] 1mg Take 1 U nivers (KLONOPIN) 0-17 tablet by ity of 1 mg tablet 00:00: mouth 3 [place] 00 (three) Medical times Branch daily as needed (anxiety). clonazePAM 2019- Yes [id number] 1mg Take 1 U nivers (KLONOPIN) 0-17 tablet by ity of 1 mg tablet 00:00: mouth 3 [place] 00 (three) Medical times Branch daily as needed (anxiety). clonazePAM 2019- Yes [id number] 1mg Take 1 U nivers (KLONOPIN) 0-17 tablet by ity of 1 mg tablet 00:00: mouth 3 [place] 00 (three) Medical times Branch daily as needed (anxiety). clonazePAM 2020-1 Yes [id number] 1mg Take 1 U nivers (KLONOPIN) 0-17 tablet by ity of 1 mg tablet 00:00: mouth 3 [place] 00 (three) Medical times Branch daily as needed (anxiety). clonazePAM 2019- Yes [id number] 1mg Take 1 U nivers (KLONOPIN) 0-17 tablet by ity of 1 mg tablet 00:00: mouth 3 [place] 00 (three) Medical times Branch daily as needed (anxiety). ibuprofen 2019-0 2019- No 800mg 800 mg, Uni vers (IBU) 07-13 Oral, ity of tablet 800 04:15: 03:07 ONCE, 1 [place] mg 00 :00 dose, Fri Medical 07/12/19 at Branch 2215, RAJANI HYDROcodone 2019-0 2020- No 1{tbl} 1 tablet, Univers -acetaminop 07-13 Oral, ity of hen (NORCO 04:15: 03:07 ONCE, 1 [place] as 5) 5-325 mg 00 :00 dose, Fri Med ical tablet 1 07/12/19 at [facility] tablet 2215, RAJANI ondansetron 2019- No 4mg 4 mg, Slow Univers (ZOFRAN 07-13 IV Push, ity of (PF)) 03:30: 02:37 ONCE, 1 [place] injection 4 00 :00 dose, Fri Med ical mg 07/12/19 at Branch 2130, RAJANI morpHINE 2019- No 4mg 4 mg, Slow Un sushant injection 4 07-13 IV Push, ity of mg 03:30: 02:37 ONCE, 1 [place] 00 :00 dose, Fri Medical 07/12/19 at Branch 2130, STAT iohexol 2019- No 120mL 120 mL, Unive rs (OMNIPAQUE 07-13 Intravenou it y of 350 00:45: 00:45 s, ONCE, 1 [place] BULK-100 00 :00 dose, Fri Medica l mL) 07/12/19 at [place] injection 1900, 120 mL Routine NaCl 0.9% 2019- No 1000mL at 999 Uni vers (NS) bolus 07-12 mL/hr, ity of infusion 21:45: 03:05 1,000 mL, Vishal as 1,000 mL 00 :00 IV Medical Infusion, [place] ONCE, 1 dose, 07/12/19 at 1545, RAJANI HYDROcodone 2020-0 Yes [id number] 1{tbl} Take 1 Univers -acetaminop 1-17 tablet by ity of hen 5-325 00:00: mouth [place] mg tablet 00 every 6 Medical (six) Branch hours as needed for Pain (scale 1-3). HYDROcodone Yes [id number] 1{tbl} Take 1 Univers -acetaminop 1-17 tablet by ity of hen 5-325 00:00: mouth [place] mg tablet 00 every 6 Medical (six) Branch hours as needed for Pain (scale 1-3). HYDROcodone Yes [id number] 1{tbl} Take 1 Univers -acetaminop 1-17 tablet by ity of hen 5-325 00:00: mouth [place] mg tablet 00 every 6 Medical (six) Branch hours as needed for Pain (scale 1-3). HYDROcodone Yes [id number] 1{tbl} Take 1 Univers -acetaminop 1-17 tablet by ity of hen 5-325 00:00: mouth [place] mg tablet 00 every 6 Medical (six) Branch hours as needed for Pain (scale 1-3). HYDROcodone Yes [id number] 1{tbl} Take 1 Univers -acetaminop 1-17 tablet by ity of hen 5-325 00:00: mouth [place] mg tablet 00 every 6 Medical (six) Branch hours as needed for Pain (scale 1-3). HYDROcodone Yes [id number] 1{tbl} Take 1 Univers -acetaminop 1-17 tablet by ity of hen 5-325 00:00: mouth [place] mg tablet 00 every 6 Medical (six) Branch hours as needed for Pain (scale 1-3). HYDROcodone Yes [id number] 1{tbl} Take 1 Univers -acetaminop 1-17 tablet by ity of hen 5-325 00:00: mouth [place] mg tablet 00 every 6 Medical (six) Branch hours as needed for Pain (scale 1-3). HYDROcodone Yes [id number] 1{tbl} Take 1 Univers -acetaminop 1-17 tablet by ity of hen 5-325 00:00: mouth [place] mg tablet 00 every 6 Medical (six) Branch hours as needed for Pain (scale 1-3). HYDROcodone 2020-0 Yes [id number] 1{tbl} Take 1 Univers -acetaminop 1-17 tablet by ity of hen 5-325 00:00: mouth [place] mg tablet 00 every 6 Medical (six) Branch hours as needed for Pain (scale 1-3). HYDROcodone 2020-0 Yes [id number] 1{tbl} Take 1 Univers -acetaminop 1-17 tablet by ity of hen 5-325 00:00: mouth [place] mg tablet 00 every 6 Medical (six) Branch hours as needed for Pain (scale 1-3). HYDROcodone Yes [id number] 1{tbl} Take 1 Univers -acetaminop 1-17 tablet by ity of hen 5-325 00:00: mouth [place] mg tablet 00 every 6 Medical (six) Branch hours as needed for Pain (scale 1-3). HYDROcodone Yes [id number] 1{tbl} Take 1 Univers -acetaminop 1-17 tablet by ity of hen 5-325 00:00: mouth [place] mg tablet 00 every 6 Medical (six) Branch hours as needed for Pain (scale 1-3). HYDROcodone Yes [id number] 1{tbl} Take 1 Univers -acetaminop 1-17 tablet by ity of hen 5-325 00:00: mouth [place] mg tablet 00 every 6 Medical (six) Branch hours as needed for Pain (scale 1-3). levothyroxi Yes 100ug Take 100 U nivers ne 100 mcg 7-13 mcg by ity of tablet 06:37: mouth [place] [address] daily. Medical Branch meloxicam Yes 7.5mg Take 7.5 Uni vers 7.5 mg 7-13 mg by ity of tablet 06:37: mouth [place] [address] daily. Medical Branch metoprolol Yes 25mg Take 25 mg U nivers tartrate 25 7-13 by mouth ity of mg tablet 06:37: daily. [place] [address] Medical Branch omeprazole Yes 20mg Take 20 mg U nivers 20 mg 7-13 by mouth ity of capsule 06:37: daily. [place] [address] Medical Branch pravastatin Yes 20mg Take 20 mg Univers 20 mg 7-13 by mouth ity of tablet 06:37: at [place] [address] bedtime. Medical Branch triamcinolo Yes .1% Apply 0.1 U nivers ne 7-13 % to ity of acetonide/l 06:37: area(s) 2 [place] .s[place] (two) Medical (ARISTOCORT times Branch A [...] mouth ity of mg tablet 06:37: daily. [place] [address] Medical Branch omeprazole 2019-0 Yes 20mg Take 20 mg U nivers 20 mg 7-13 by mouth ity of capsule 06:37: daily. [place] [address] Medical Branch pravastatin 2019-0 Yes 20mg Take 20 mg Univers 20 mg 7-13 by mouth ity of tablet 06:37: at [place] [address] bedtime. Medical Branch triamcinolo 0 Yes .1% Apply 0.1 U nivers ne 7-13 % to ity of acetonide/l 06:37: area(s) 2 [place] .s.[place]. 32 (two) Medical (ARISTOCORT times Branch A TOPICAL) daily. levothyroxi 2019-0 Yes 100ug Take 100 U nivers ne 100 mcg 7-13 mcg by ity of tablet 06:37: mouth [place] [address] daily. Medical Branch meloxicam 2019-0 Yes 7.5mg Take 7.5 Uni vers 7.5 mg 7-13 mg by ity of tablet 06:37: mouth [place] 32 daily. Medical Branch metoprolol 2019-0 Yes 25mg Take 25 mg U nivers tartrate 25 7-13 by mouth ity of mg tablet 06:37: daily. [place] [address] Medical Branch omeprazole 2019-0 Yes 20mg Take 20 mg U nivers 20 mg 7-13 by mouth ity of capsule 06:37: daily. [place] [address] Medical Branch pravastatin 2019-0 Yes 20mg Take 20 mg Univers 20 mg 7-13 by mouth ity of tablet 06:37: at [place] [address] bedtime. Medical Branch triamcinolo 2019-0 Yes .1% [...] mouth ity of mg tablet 06:37: daily. [place] [address] Medical Branch omeprazole 2019-0 Yes 20mg Take 20 mg U nivers 20 mg 7-13 by mouth ity of capsule 06:37: daily. [address] Branch pravastatin 2019-0 Yes 20mg Take 20 mg Univers 20 mg 7-13 by mouth ity of tablet 06:37: at [place] [address] bedtime. Medical Branch triamcinolo Yes .1% Apply 0.1 U nivers ne 7-13 % to ity of acetonide/l 06:37: area(s) 2 [place] .s.[place]. 32 (two) Medical (ARISTOCORT times Branch A TOPICAL) daily. levothyroxi 2019-0 Yes 100ug Take 100 U nivers ne 100 mcg 7-13 mcg by ity of tablet 06:37: mouth [place] [address] daily. Medical Branch meloxicam 2019-0 Yes 7.5mg Take 7.5 Uni vers 7.5 mg 7-13 mg by ity of tablet 06:37: mouth [place] [address] daily. Medical Branch metoprolol 2019-0 Yes 25mg Take 25 mg U nivers tartrate 25 7-13 by mouth ity of mg tablet 06:37: daily. [place] [address] Medical Branch omeprazole 2018-0 Yes 20mg Take 20 mg U nivers 20 mg 7-13 by mouth ity of capsule 06:37: daily. [address] Branch pravastatin 2019-0 Yes 20mg Take 20 mg Univers 20 mg 7-13 by mouth ity of tablet 06:37: at [place] [address] bedtime. Medical Branch triamcinolo Yes .1% Apply 0.1 U nivers ne 7-13 % to ity of acetonide/l 06:37: area(s) 2 [place] .s.b. 32 (two) Medical (ARISTOCORT times Branch A TOPICAL) daily. levothyroxi 2019-0 Yes 100ug Take 100 U nivers ne 100 mcg 7-13 mcg by ity of tablet 06:37: mouth [place] [address] daily. Medical Branch meloxicam 2019-0 Yes 7.5mg Take 7.5 Uni vers 7.5 mg 7-13 mg by ity of tablet 06:37: mouth [place] [address] daily. Medical Branch metoprolol 2019-0 Yes 25mg Take 25 mg U nivers tartrate 25 7-13 by mouth ity of mg tablet 06:37: daily. [place] [address] Medical Branch omeprazole 2019-0 Yes 20mg Take 20 mg U nivers 20 mg 7-13 by mouth ity of capsule 06:37: daily. [place] [address] Medical Branch pravastatin 2019-0 Yes 20mg Take 20 mg Univers 20 mg 7-13 by mouth ity of tablet 06:37: at [place] [address] bedtime. Medical Branch triamcinolo 2019-0 Yes .1% Apply 0.1 U nivers ne 7-13 % to ity of acetonide/l 06:37: area(s) 2 [place] [facility] [place] (two) Medical (ARISTOCORT times Branch A TOPICAL) daily. gabapentin 2019-0 Yes 300mg Take 300 Un sushant 300 mg 7-13 mg by ity of capsule 06:27: mouth 2 [place] [address] ([facility]) Medical times Branch daily. gabapentin 2019-0 Yes 300mg Take 300 Un sushant 300 mg 7-13 mg by ity of capsule 06:27: mouth 2 [place] [address] (two) Medical times Branch daily. gabapentin 2019-0 Yes 300mg Take 300 Un sushant 300 mg 7-13 mg by ity of capsule 06:27: mouth 2 [place] [address] (two) Medical times Branch daily. gabapentin 2019-0 Yes 300mg Take 300 Un sushant 300 mg 7-13 mg by ity of capsule 06:27: mouth 2 [place] [address] (two) Medical times Branch daily. gabapentin 2019-0 Yes 300mg Take 300 Un sushant 300 mg 7-13 mg by ity of capsule 06:27: mouth 2 [place] [address] (two) Medical times Branch daily. gabapentin 2019-0 Yes 300mg Take 300 Un sushant 300 mg 7-13 mg by ity of capsule 06:27: mouth 2 [place] [address] (two) Medical times Branch daily. Vital Signs Vital Name Observation Time Observation Value Comments Source Heart rate 2021-09-22 03:30:00 87 /min [facility] [place] [facility] Respiratory rate 2021-09-22 03:30:00 20 /min [facility] [place] [facility] Oxygen saturation in 2021-09-22 03:30:00 100 /min [facility] of Arterial blood by [place] [employer] steve Pulse oximetry Branch Systolic blood 2021-09-22 03:00:00 148 mm[Hg] Univer sity of pressure [place] [facility] Diastolic blood 2021-09-22 03:00:00 86 mm[Hg] Unive rsity of pressure [place] [facility] Body temperature 2021-09-22 01:12:00 36.67 Yamila [facility] [place] [facility] Body height 2021-09-22 01:12:00 167.6 cm [facility] [place] [facility] Body weight 2021-09-22 01:12:00 72.576 kg [facility] [place] [facility] BMI 2021-09-22 01:12:00 25.82 kg/m2 [facility] [place] [facility] Systolic blood 2021-03-25 15:30:00 153 mm[Hg] Univer sity of pressure [place] [facility] Diastolic blood 2021-03-25 15:30:00 96 mm[Hg] Unive rsity of pressure [place] [facility] Heart rate 2021-03-25 15:30:00 100 /min [facility] [place] [facility] Respiratory rate 2021-03-25 15:30:00 20 /min [facility] [place] [facility] Oxygen saturation in 2021-03-25 15:30:00 97 /min [facility] of Arterial blood by [facility] Pulse oximetry Branch Body temperature 2021-03-25 08:55:00 36.39 Yamila [facility] [place] [facility] Body weight 2021-03-25 08:55:00 81.194 kg [facility] [place] [facility] BMI 2021-03-25 08:55:00 28.89 kg/m2 [facility] [place] [facility] Systolic blood 2020-11-23 17:24:00 104 mm[Hg] Univer sity of pressure [place] [facility] Diastolic blood 2020-11-23 17:24:00 68 mm[Hg] Unive rsity of pressure [place] [facility] Heart rate 2020-11-23 17:24:00 91 /min [facility] [place] [facility] Respiratory rate 2020-11-23 17:24:00 18 /min [facility] [place] [facility] Oxygen saturation in 2020-11-23 17:24:00 97 /min [facility] of Arterial blood by [facility] Pulse oximetry Branch Body temperature 2020-11-23 12:24:00 36.94 Yamila [facility] [place] [facility] Body weight 2020-11-23 09:53:00 81.194 kg [facility] [place] [facility] BMI 2020-11-23 09:53:00 28.89 kg/m2 [facility] [place] [facility] Body height 2020-11-22 21:41:00 167.6 cm [facility] [place] [facility] Systolic blood 2020-11-23 17:24:00 104 mm[Hg] Univer sity of pressure [place] [facility] Diastolic blood 2020-11-23 17:24:00 68 mm[Hg] Unive rsity of pressure [place] [facility] Heart rate 2020-11-23 17:24:00 91 /min [facility] [place] [facility] Respiratory rate 2020-11-23 17:24:00 18 /min [facility] [place] [facility] Oxygen saturation in 2020-11-23 17:24:00 97 /min [facility] of Arterial blood by [facility] Pulse oximetry Branch Body temperature 2020-11-23 12:24:00 36.94 Yamila [facility] [place] [facility] Body weight 2020-11-23 09:53:00 81.194 kg [facility] [place] [facility] BMI 2020-11-23 09:53:00 28.89 kg/m2 [facility] [place] [facility] Body height 2020-11-22 21:41:00 167.6 cm [facility] [place] [facility] Systolic blood 2020-10-22 10:00:00 149 mm[Hg] Univer sity of pressure [place] [facility] Diastolic blood 2020-10-22 10:00:00 92 mm[Hg] Unive rsity of pressure [place] [facility] Heart rate 2020-10-22 10:00:00 89 /min [facility] [place] [facility] Body temperature 2020-10-22 10:00:00 36.78 Yamila [facility] [place] [facility] Respiratory rate 2020-10-22 10:00:00 16 /min [facility] [place] [facility] Oxygen saturation in 2020-10-22 10:00:00 97 /min [facility] Arterial blood by [place] [facility] steve Pulse oximetry Branch Body weight 2020-10-22 07:03:00 72.576 kg [facility] [place] [facility] BMI 2020-10-22 07:03:00 25.82 kg/m2 [facility] [place] [facility] Systolic blood 2020-10-22 10:00:00 149 mm[Hg] Univer sity of pressure [place] [facility] Diastolic blood 2020-10-22 10:00:00 92 mm[Hg] Unive rsity of pressure [place] [facility] Heart rate 2020-10-22 10:00:00 89 /min [facility] [place] [facility] Body temperature 2020-10-22 10:00:00 36.78 Yamila [facility] [place] [facility] Respiratory rate 2020-10-22 10:00:00 16 /min [facility] [place] [facility] Oxygen saturation in 2020-10-22 10:00:00 97 /min [facility] of Arterial blood by [facility] steve Pulse oximetry Branch Body weight 2020-10-22 07:03:00 72.576 kg [facility] [place] [facility] BMI 2020-10-22 07:03:00 25.82 kg/m2 [facility] [place] [facility] Systolic blood 2020-10-20 04:55:00 181 mm[Hg] Univer sity of pressure [place] [facility] Diastolic blood 2020-10-20 04:55:00 109 mm[Hg] Unive rsity of pressure [place] [facility] Heart rate 2020-10-20 04:55:00 126 /min [facility] [place] [facility] Body temperature 2020-10-20 04:55:00 36.72 Yamila [facility] [place] [facility] Respiratory rate 2020-10-20 04:55:00 17 /min [facility] [place] [facility] Body weight 2020-10-20 04:55:00 72.598 kg [facility] [place] [facility] BMI 2020-10-20 04:55:00 25.83 kg/m2 [facility] [place] [facility] Oxygen saturation in 2020-10-20 04:55:00 97 /min [facility] of Arterial blood by [place] [employer] steve Pulse oximetry Branch Systolic blood 2020-10-20 04:55:00 181 mm[Hg] Univer sity of pressure [place] [facility] Diastolic blood 2020-10-20 04:55:00 109 mm[Hg] Unive rsity of pressure [place] [facility] Heart rate 2020-10-20 04:55:00 126 /min [facility] [place] [facility] Body temperature 2020-10-20 04:55:00 36.72 Yamila [facility] [place] [facility] Respiratory rate 2020-10-20 04:55:00 17 /min [facility] [place] [facility] Body weight 2020-10-20 04:55:00 72.598 kg [facility] [place] [facility] BMI 2020-10-20 04:55:00 25.83 kg/m2 [facility] [place] [facility] Oxygen saturation in 2020-10-20 04:55:00 97 /min [facility] of Arterial blood by [facility] Pulse oximetry Branch Systolic blood 2020-10-15 20:07:00 124 mm[Hg] Univer sity of pressure [place] [facility] Diastolic blood 2020-10-15 20:07:00 72 mm[Hg] Unive rsity of pressure [place] [facility] Heart rate 2020-10-15 20:07:00 97 /min [facility] [place] [facility] Body temperature 2020-10-15 20:07:00 36.83 Yamila [facility] [place] [facility] Respiratory rate 2020-10-15 20:07:00 17 /min [facility] [place] [facility] Oxygen saturation in 2020-10-15 20:07:00 96 /min [facility] Arterial blood by [facility] Pulse oximetry Branch Body weight 2020-10-15 12:34:00 68.04 kg [facility] [place] [facility] BMI 2020-10-15 12:34:00 24.21 kg/m2 [facility] [place] [facility] Systolic blood 2020-10-15 20:07:00 124 mm[Hg] Univer sity of pressure [place] [facility] Diastolic blood 2020-10-15 20:07:00 72 mm[Hg] Unive rsity of pressure [place] [facility] Heart rate 2020-10-15 20:07:00 97 /min [facility] [place] [facility] Body temperature 2020-10-15 20:07:00 36.83 Yamila [facility] [place] [facility] Respiratory rate 2020-10-15 20:07:00 17 /min [facility] [place] [facility] Oxygen saturation in 2020-10-15 20:07:00 96 /min [facility] Arterial blood by [place] [employer] [facility]ve Pulse oximetry Branch Body weight 2020-10-15 12:34:00 68.04 kg [facility] [place] [facility] BMI 2020-10-15 12:34:00 24.21 kg/m2 [facility] [place] [facility] Systolic blood 2020-10-13 15:00:00 145 mm[Hg] Univer sity of pressure [place] [facility] Diastolic blood 2020-10-13 15:00:00 102 mm[Hg] Unive rsity of pressure [place] [facility] Heart rate 2020-10-13 15:00:00 115 /min [facility] [place] [facility] Respiratory rate 2020-10-13 15:00:00 22 /min [facility] [place] [facility] Oxygen saturation in 2020-10-13 15:00:00 100 /min [facility] Arterial blood by [facility] Pulse oximetry Branch Body temperature 2020-10-13 09:40:00 37 Yamila [facility] [place] [facility] Body weight 2020-10-13 09:40:00 68.04 kg [facility] [place] [facility] BMI 2020-10-13 09:40:00 24.21 kg/m2 [facility] [place] [facility] Systolic blood 2020-10-13 15:00:00 145 mm[Hg] Univer sity of pressure [place] [facility] Diastolic blood 2020-10-13 15:00:00 102 mm[Hg] Unive rsity of pressure [place] [facility] Heart rate 2020-10-13 15:00:00 115 /min [facility] [place] [facility] Respiratory rate 2020-10-13 15:00:00 22 /min [facility] [place] [facility] Oxygen saturation in 2020-10-13 15:00:00 100 /min [facility] Arterial blood by [place] [employer] [facility]ve Pulse oximetry Branch Body temperature 2020-10-13 09:40:00 37 Yamila [facility] [place] [facility] Body weight 2020-10-13 09:40:00 68.04 kg [facility] [place] [facility] BMI 2020-10-13 09:40:00 24.21 kg/m2 [facility] [place] [facility] Systolic blood 2020-09-17 03:41:00 147 mm[Hg] Univer sity of pressure [place] [facility] Diastolic blood 2020-09-17 03:41:00 98 mm[Hg] Unive rsity of pressure [place] [facility] Heart rate 2020-09-17 03:41:00 92 /min [facility] [place] [facility] Respiratory rate 2020-09-17 03:41:00 22 /min [facility] [place] [facility] Oxygen saturation in 2020-09-17 03:41:00 100 /min [facility] of Arterial blood by [facility] Pulse oximetry Branch Body temperature 2020-09-17 02:45:00 37.17 Yamila [facility] [place] [facility] Body height 2020-09-17 02:45:00 167.6 cm [facility] [place] [facility] Body weight 2020-09-17 02:45:00 65.772 kg [facility] [place] [facility] BMI 2020-09-17 02:45:00 23.40 kg/m2 [facility] [place] [facility] Systolic blood 2020-09-17 03:41:00 147 mm[Hg] Univer sity of pressure [place] [facility] Diastolic blood 2020-09-17 03:41:00 98 mm[Hg] Unive rsity of pressure [place] [facility] Heart rate 2020-09-17 03:41:00 92 /min [facility] [place] [facility] Respiratory rate 2020-09-17 03:41:00 22 /min [facility] [place] [facility] Oxygen saturation in 2020-09-17 03:41:00 100 /min [facility] of Arterial blood by [facility] Pulse oximetry Branch Body temperature 2020-09-17 02:45:00 37.17 Yamila [facility] [place] [facility] Body height 2020-09-17 02:45:00 167.6 cm [facility] [place] [facility] Body weight 2020-09-17 02:45:00 65.772 kg [facility] [place] [facility] BMI 2020-09-17 02:45:00 23.40 kg/m2 [facility] [place] [facility] Systolic blood 2020-09-06 11:02:00 146 mm[Hg] Univer sity of pressure [place] [facility] Diastolic blood 2020-09-06 11:02:00 93 mm[Hg] Unive rsity of pressure [place] [facility] Heart rate 2020-09-06 11:02:00 97 /min [facility] [place] [facility] Respiratory rate 2020-09-06 11:02:00 21 /min [facility] [place] [facility] Oxygen saturation in 2020-09-06 11:02:00 99 /min [facility] of Arterial blood by [facility] Pulse oximetry Branch Body temperature 2020-09-06 10:31:00 36.17 Yamila [facility] [place] [facility] Body height 2020-09-06 09:39:00 167.6 cm [facility] [place] [facility] Body weight 2020-09-06 09:39:00 68.04 kg [facility] [place] [facility] BMI 2020-09-06 09:39:00 24.21 kg/m2 [facility] [place] [facility] Systolic blood 2020-09-06 11:02:00 146 mm[Hg] Univer sity of pressure [place] [facility] Diastolic blood 2020-09-06 11:02:00 93 mm[Hg] Unive rsity of pressure [place] [facility] Heart rate 2020-09-06 11:02:00 97 /min [facility] [place] [facility] Respiratory rate 2020-09-06 11:02:00 21 /min [facility] [place] [facility] Oxygen saturation in 2020-09-06 11:02:00 99 /min [facility] Arterial blood by [facility] Pulse oximetry Branch Body temperature 2020-09-06 10:31:00 36.17 Yamila [facility] [place] [facility] Body height 2020-09-06 09:39:00 167.6 cm [facility] [place] [facility] Body weight 2020-09-06 09:39:00 68.04 kg [facility] [place] [facility] BMI 2020-09-06 09:39:00 24.21 kg/m2 [facility] [place] [facility] Systolic blood 2020-09-02 03:00:00 171 mm[Hg] Univer sity of [facility] [place] [facility] Diastolic blood 2020-09-02 03:00:00 102 mm[Hg] Unive rsity of pressure [place] [facility] Heart rate 2020-09-02 03:00:00 100 /min [facility] [place] [facility] Body temperature 2020-09-02 03:00:00 36 Yamila [facility] [place] [facility] Respiratory rate 2020-09-02 03:00:00 17 /min [facility] [place] [facility] Oxygen saturation in 2020-09-02 03:00:00 98 /min [facility] Arterial blood by [facility] Pulse oximetry Branch Body weight 2020-09-01 23:02:00 65.772 kg [facility] [place] [facility] BMI 2020-09-01 23:02:00 23.40 kg/m2 [facility] [place] [facility] Systolic blood 2020-09-02 03:00:00 171 mm[Hg] Univer sity of [facility] [place] [facility] Diastolic blood 2020-09-02 03:00:00 102 mm[Hg] Unive rsity of [facility] [place] [facility] Heart rate 2020-09-02 03:00:00 100 /min [facility] [place] [facility] [place] Body temperature 2020-09-02 03:00:00 36 Yamila [facility] [place] [facility] Respiratory rate 2020-09-02 03:00:00 17 /min [facility] [place] [facility] Oxygen saturation in 2020-09-02 03:00:00 98 /min [facility] Arterial blood by [facility] Pulse oximetry Branch Body weight 2020-09-01 23:02:00 65.772 kg [facility] [place] [facility] BMI 2020-09-01 23:02:00 23.40 kg/m2 [facility] [place] [facility] Systolic blood 2020-04-14 13:08:00 143 mm[Hg] Univer sity of [facility] [place] [facility] Diastolic blood 2020-04-14 13:08:00 90 mm[Hg] Unive rsity of pressure [place] [facility] Heart rate 2020-04-14 13:08:00 84 /min [facility] [place] [facility] Body temperature 2020-04-14 13:08:00 36.28 Yamila [facility] [place] [facility] Respiratory rate 2020-04-14 13:08:00 16 /min [facility] [place] [facility] Oxygen saturation in 2020-04-14 13:08:00 99 /min [facility] Arterial blood by [facility] Pulse oximetry Branch Body weight 2020-04-11 11:56:00 63.504 kg [facility] [place] [facility] BMI 2020-04-11 11:56:00 22.60 kg/m2 [facility] [place] [facility] Body height 2020-04-11 11:55:00 167.6 cm [facility] [place] [facility] Systolic blood 2020-04-11 05:30:00 148 mm[Hg] Univer sity of [facility] [place] [facility] Diastolic blood 2020-04-11 05:30:00 88 mm[Hg] Unive rsity of [facility] [place] [facility] Heart rate 2020-04-11 05:30:00 89 /min [facility] [place] [facility] Respiratory rate 2020-04-11 05:30:00 26 /min [facility] [place] [facility] Oxygen saturation in 2020-04-11 05:30:00 100 /min [facility] Arterial blood by [place] [employer] [facility] Pulse oximetry Branch Body temperature 2020-04-11 04:03:00 37.17 Yamila [facility] [place] [facility] Body weight 2020-04-11 04:03:00 63.504 kg [facility] [place] [facility] BMI 2020-04-11 04:03:00 22.60 kg/m2 [facility] [place] [facility] Systolic blood 2020-04-11 02:59:52 126 mm[Hg] Univer sity of [facility] [place] [facility] Diastolic blood 2020-04-11 02:59:52 94 mm[Hg] Unive rsity of pressure [place] [facility] Heart rate 2020-04-11 02:59:52 104 /min [facility] [place] [facility] Body temperature 2020-04-11 02:59:52 36.56 Yamila [facility] [place] [facility] Respiratory rate 2020-04-11 02:59:52 19 /min [facility] [place] [facility] Oxygen saturation in 2020-04-11 02:59:52 98 /min [facility] of Arterial blood by [facility] steve Pulse oximetry Branch Body weight 2020-04-11 01:37:00 63.504 kg [facility] BMI 2020-04-11 01:37:00 22.60 kg/m2 [facility] Systolic blood 2020-04-10 04:53:11 150 mm[Hg] [facility] Diastolic blood 2020-04-10 04:53:11 101 mm[Hg] [facility] Heart rate 2020-04-10 04:53:11 121 /min [facility] Respiratory rate 2020-04-10 04:53:11 16 /min [facility] [place] [facility] Oxygen saturation in 2020-04-10 04:53:11 99 /min [facility] [place] [employer] steve Pulse oximetry Branch Body temperature 2020-04-10 04:00:00 36.44 Yamila [facility] Body weight 2020-04-10 04:00:00 68.04 kg [facility] BMI 2020-04-10 04:00:00 24.21 kg/m2 [facility] Systolic blood 2020-02-25 18:30:00 164 mm[Hg] [facility] Diastolic blood 2020-02-25 18:30:00 112 mm[Hg] [facility] Heart rate 2020-02-25 18:30:00 107 /min [facility] Respiratory rate 2020-02-25 18:30:00 23 /min [facility] Oxygen saturation in 2020-02-25 18:30:00 98 /min [facility] blood by [facility] Pulse oximetry Branch Body temperature 2020-02-25 18:20:00 36.89 Yamila [facility] Body height 2020-02-25 18:20:00 167.6 cm [facility] Body weight 2020-02-25 18:20:00 68.04 kg [facility] BMI 2020-02-25 18:20:00 24.21 kg/m2 [facility] Systolic blood 2019-07-13 03:12:00 125 mm[Hg] [facility] Diastolic blood 2019-07-13 03:12:00 81 mm[Hg] [facility] Heart rate 2019-07-13 03:12:00 75 /min [facility] Body temperature 2019-07-13 03:12:00 36.72 Yamila [facility] Respiratory rate 2019-07-13 03:12:00 18 /min [facility] Oxygen saturation in 2019-07-13 03:12:00 99 /min [facility] Arterial blood by [facility] steve Pulse oximetry Branch Body weight 2019-07-12 21:01:00 72.576 kg [facility] BMI 2019-07-12 21:01:00 25.82 kg/m2 [facility] Procedures Procedure Date / Time Performing Clinician Source Performed XR CHEST 1 VW 2021-09-22 01:58:50 Georgia Estrada [facility] MAGNESIUM 2021-09-22 01:43:00 Georgia Estrada [facility] TROPONIN I 2021-09-22 01:43:00 Georgia Estrada [facility] COMP. METABOLIC PANEL 2021-09-22 01:43:00 Georgia Estrada [facility] ([id number]) [facility] POCT TEST 2021-09-22 01:43:00 Georgia Estrada [facility] N-TERMINAL PRO-BNP 2021-09-22 01:43:00 Georgia Estrada [facility] CBC WITH DIFF 2021-09-22 01:42:00 Georgia Estrada [facility] URINALYSIS 2021-09-22 01:42:00 Georgia Estrada [facility] NOTICE OF PRIVACY 2021-09-22 01:07:45 Doctor Unassigned, No [facility] PRACTICES Name Medical Branch CONSENT/REFUSAL FOR 2021-09-22 01:06:43 Doctor Unassigned, No [facility] DIAGNOSIS AND TREATMENT Name Medical Branch CT CHEST PULMONARY 2021-03-25 11:45:06 Arnold Coughlin [facility] ANGIOGRAM Medical Branch TROPONIN I 2021-03-25 11:31:00 Arnold Coughlin [facility] D-DIMER 2021-03-25 10:22:00 Arnold Coughlin [facility] LIPASE 2021-03-25 09:35:00 Arnold Coughlin [facility] TROPONIN I 2021-03-25 09:35:00 Arnold Coughlin [facility] COMP. METABOLIC PANEL 2021-03-25 09:35:00 Arnold Coughlin [facility] ([id number]) [facility] [place] CBC WITH DIFF 2021-03-25 09:35:00 Arnold Coughlin [facility] HB ECG ROUTINE & RHYTHM 2021-03-25 08:52:04 Arnold Coughlin [facility] STRIP [facility] ACTIVATED PARTIAL 2020-11-23 10:36:00 [facility] MAGNESIUM 2020-11-23 05:05:00 [facility] BASIC METABOLIC PANEL 2020-11-23 05:05:00 [facility] (NA, K, CL, CO2, Medical Branch GLUCOSE, BUN, CREATININE, CA) CBC WITH DIFF 2020-11-23 05:05:00 [facility] ACTIVATED PARTIAL 2020-11-23 05:05:00 [facility] CT ANGIOGRAM CHEST 2020-11-22 20:21:07 [facility] POCT TEST 2020-11-22 19:43:00 Rosmery Mai [facility] TROPONIN I 2020-11-22 19:38:00 [facility] FREE T4 2020-11-22 19:38:00 [facility] THYROID STIMULATING 2020-11-22 19:38:00 [facility] HORMONE [facility] LIPID PANEL 2020-11-22 19:38:00 [facility] ([id number])(TOTAL [facility] CHOLESTEROL, TRIGLYCERIDES, HDL) COVID-19 (ID NOW RAPID 2020-11-22 19:18:00 Carmen Lott [facility] TESTING) Medical Branch TROPONIN I 2020-11-22 14:45:00 Rosmery Mai [facility] XR CHEST 1 VW 2020-11-22 12:41:09 Miguelito Salter [facility] URINE DRUG (IMMUNOASSAY) 2020-11-22 11:53:00 Miguelito Salter [facility] - COMPREHENSIVE DRUG [facility] SCREEN URINALYSIS 2020-11-22 11:53:00 Miguelito Salter [facility] CK (CREATINE KINASE) + 2020-11-22 11:52:00 Miguelito Salter [facility] MB Medical Branch LIPASE 2020-11-22 11:52:00 Miguelito Salter [facility] TROPONIN I 2020-11-22 11:52:00 Miguelito Salter [facility] COMP. METABOLIC PANEL 2020-11-22 11:52:00 Miguelito Salter [facility] ([id number]) Medical Branch ETHANOL 2020-11-22 11:52:00 Miguelito Salter [facility] SERUM DRUG (IMMUNOASSAY) 2020-11-22 11:52:00 Miguelito Salter [facility] SCREEN CBC WITH DIFF 2020-11-22 11:52:00 Miguelito Salter [facility] GLYCOSYLATED HEMOGLOBIN 2020-11-22 11:52:[address] [facility] (A1C) [facility] D-DIMER 2020-11-22 11:52:00 Miguelito Salter [facility] POCT TEST 2020-10-22 10:12:00 Chaka Steinberg [facility] URINE DRUG (IMMUNOASSAY) 2020-10-22 10:10:00 Chaka Steinberg [facility] SCREEN URINALYSIS 2020-10-22 10:10:00 Chaka Steinberg [facility] TROPONIN I 2020-10-22 09:34:00 Chaka Steinberg [facility] CT ABDOMEN PELVIS W 2020-10-22 08:02:55 Chaka Steinberg [facility] CONTRAST [facility] XR CHEST 1 VW 2020-10-22 07:40:59 Chaka Steinberg [facility] COVID-19 (ID NOW RAPID 2020-10-22 07:38:00 Chaka Steinberg [facility] TESTING) [facility] [place] BASIC METABOLIC PANEL 2020-10-22 07:37:00 Chaka Steinberg [facility] (NA, K, CL, CO2, Medical Branch GLUCOSE, BUN, CREATININE, CA) ETHANOL 2020-10-22 07:37:00 Chaka Steinberg [facility] CBC WITH DIFF 2020-10-22 07:37:00 [facility] 2020-10-22 07:37:00 Idris [facility] TROPONIN I 2020-10-22 07:37:00 Idris [facility] HEPATIC FUNCTION PANEL 2020-10-22 07:37:00 [facility] ([id number]) (ALB,T.PRO,[facility] Medical Branch T,BU/BC,ALT,AST,ALK PHOS) CREATINE KINASE 2020-10-15 14:58:00 Sergei, [facility] LIPASE 2020-10-15 14:58:00 Sergei, [facility] TEST, SERUM 2020-10-15 14:58:00 Sergei [facility] TROPONIN I 2020-10-15 14:58:00 Sergei, [facility] HEPATIC FUNCTION PANEL 2020-10-15 14:58:00 Sergei [facility] ([id number]) (ALB,T.PRO,[facility] Medical Branch T,BU/BC,ALT,AST,ALK PHOS) BASIC METABOLIC PANEL 2020-10-15 14:58:00 Sergei [facility] (NA, K, CL, CO2, Medical Branch GLUCOSE, BUN, CREATININE, CA) N-TERMINAL PRO-BNP 2020-10-15 14:58:00 Sergei [facility] XR CHEST 2 VW 2020-10-15 13:47:20 Sergei [facility] CT HEAD WO CONTRAST 2020-10-15 13:37:33 Sergei [facility] CREATINE KINASE 2020-10-15 13:27:00 Sergei [facility] LIPASE 2020-10-15 13:27:00 Sergei [facility] TROPONIN I 2020-10-15 13:27:00 Sergei [facility] N-TERMINAL PRO-BNP 2020-10-15 13:27:00 [facility] POCT TEST 2020-10-13 11:13:00 Gage Torres [facility] COMP. METABOLIC PANEL 2020-10-13 11:06:00 Gage Torres [facility] ([id number]) [facility] EXTRA TUBE ORANGE 2020-10-13 11:06:00 Gage Torres [facility] EXTRA TUBE LT. GREEN 2020-10-13 11:06:00 Gage Torres [facility] URINE DRUG (IMMUNOASSAY) 2020-10-13 11:01:00 Gage Torres [facility] DRUG [facility] SCREEN URINALYSIS 2020-10-13 11:01:00 Gage Torres [facility] CBC WITH DIFF 2020-10-13 10:41:00 Gage Torres [facility] XR CHEST 1 VW 2020-10-13 10:40:00 Gage Torres [facility] PROTHROMBIN TIME / INR 2020-10-13 10:26:00 Gage Torres [facility] D-DIMER 2020-10-13 10:26:00 Gage Torres [facility] ACTIVATED PARTIAL 2020-10-13 10:26:00 Gage Torres [facility] THRMPLAS CHER [facility] LIPASE 2020-10-13 10:09:00 Gage Torres [facility] TROPONIN I 2020-10-13 10:09:00 Gage Torres [facility] THYROID STIMULATING 2020-10-13 10:09:[address] [facility] HORMONE [facility] ETHANOL 2020-10-13 10:09:00 Gage Torres [facility] EXTRA TUBE ORANGE 2020-10-13 10:09:00 Gage Torres [facility] EXTRA TUBE LT. GREEN 2020-10-13 10:09:00 Gage Torres [facility] COVID-19 (ID NOW RAPID 2020-10-13 10:06:[address] [facility] TESTING) Medical Branch LIPASE 2020-09-17 03:02:00 [facility] 2020-09-17 03:02[facility] 2020-09-17 03:02:00 [facility] ([id number] (ALB,T.PRO,BILI [facility] T,BU/BC,ALT,AST,ALK PHOS) BASIC METABOLIC PANEL 2020-09-17 03:02:00 [facility] (NA, K, CL, CO2, Medical Branch GLUCOSE, BUN, CREATININE, CA) CBC WITH DIFF 2020-09-17 03:02:00 William [facility] CT ABDOMEN PELVIS W 2020-09-06 11:31:59 Arnold Coughlin [facility] CONTRAST [facility] XR CHEST 1 VW 2020-09-06 10:03:21 Arnold Coughlin [facility] CBC WITH DIFF 2020-09-06 09:58:00 Arnold Coughlin [facility] LIPASE 2020-09-06 09:57:00 Arnold Coughlin [facility] TROPONIN I 2020-09-06 09:57:00 Arnold Coughlin [facility] COMP. METABOLIC PANEL 2020-09-06 09:57:00 Arnold Coughlin [facility] ([id number]) Medical Branch N-TERMINAL PRO-BNP 2020-09-06 09:57:00 Arnold [facility]oughlin [facility] D-DIMER 2020-09-02 02:24:00 Ana Sommers [facility] COVID-19 (ID NOW RAPID 2020-09-02 00:10:[address] [facility] TESTING) Medical Branch LIPASE 2020-09-02 00:07:00 Ana Sommers [facility] TROPONIN I 2020-09-02 00:07:00 Ana Sommers [facility] THYROID STIMULATING 2020-09-02 00:07:00 Ana Sommers [facility] HORMONE [facility] HEPATIC FUNCTION PANEL 2020-09-02 00:07:[address] [facility] ([id number]) (ALB,T.PRO,BILI [facility] T,BU/BC,ALT,AST,ALK PHOS) BASIC METABOLIC PANEL 2020-09-02 00:07:00 Ana Sommers [facility] (NA, K, CL, CO2, Medical Branch GLUCOSE, BUN, CREATININE, CA) CBC WITH DIFF 2020-09-02 00:07:00 Ana Sommers [facility] N-TERMINAL PRO-BNP 2020-09-02 00:07:00 Ana Sommers [facility] XR CHEST 1 VW 2020-09-02 00:02:14 Ana Sommers [facility] NOTICE OF PRIVACY 2020-09-01 22:34:26 Doctor Unassigned, No [facility] PRACTICES Name [facility] CONSENT/REFUSAL FOR 2020-09-01 22:34:08 Doctor Unassigned, No [facility] DIAGNOSIS AND TREATMENT Name [facility] BASIC METABOLIC PANEL 2020-04-12 10:18:00 Buddy Mnotes [facility] (NA, K, CL, CO2, [facility] GLUCOSE, BUN, CREATININE, CA) CBC WITH DIFF 2020-04-12 10:18:00 Buddy Monets [facility] XR FOREARM 2 VW LEFT 2020-04-11 17:54:00 Jennifer [facility] XR HAND 3+ VW LEFT 2020-04-11 17:54:00 Jennifer formerly [facility] XR WRIST 3+ VW LEFT 2020-04-11 17:54:00 Jennifer [facility] XR ANKLE 3+ VW LEFT 2020-04-11 12:47:35 Clay Garay [facility] XR FOOT 3+ VW LEFT 2020-04-11 12:47:35 Clay Garay [facility] XR TIBIA FIBULA 2 VW 2020-04-11 12:47:35 Clay Garay [facility] CT TRAUMA HEAD WO 2020-04-11 12:41:26 Clay aGray [facility] CONTRAST [facility] CT TRAUMA THORAX W 2020-04-11 12:41:26 Clay Garay [facility] CT TRAUMA CERVICAL SPINE 2020-04-11 12:41:26 Tanisha [facility] CONTRAST [facility] [place] CT TRAUMA THORACIC SPINE 2020-04-11 12:41:26 Tanisha [facility] CONTRAST [facility] CT TRAUMA ABDOMEN PELVIS 2020-04-11 12:41:26 Tanisha [facility] CONTRAST [facility] [place] CT TRAUMA LUMBAR SPINE 2020-04-11 12:41:26 Clay Garay [facility] CONTRAST [facility] HB ABO GROUPING 2020-04-11 12:20:00 Sanjay [facility] BASIC METABOLIC PANEL 2020-04-11 12:17:00 John Grace [facility] (NA, K, CL, CO2, [facility] GLUCOSE, BUN, CREATININE, CA) CBC WITHOUT DIFF 2020-04-11 12:17:00 Sanjay [facility] PROTHROMBIN TIME / INR 2020-04-11 12:17:00 John Grace [facility] ACTIVATED PARTIAL 2020-04-11 12:17:00 Sanjay [facility] THRMPLAS CHER [facility] EKG-12 LEAD 2020-04-11 04:23:07 Gage Torres [facility] TROPONIN I 2020-04-11 01:53:00 Vamshi [facility] EKG-12 LEAD 2020-04-11 01:46:16 Vamshi [facility] ADC / LCC - DRUG SCREEN 2020-04-10 05:19:00 Wiley Gay [facility] XR CHEST 1 VW 2020-04-10 04:26:18 Singer [facility] COVID-19 (ID NOW RAPID 2020-04-10 04:15:[address] [facility] TESTING) Medical Branch D-DIMER 2020-04-10 04:14:00 Singer [facility] LIPASE 2020-04-10 04:11:00 Singer [facility] MAGNESIUM 2020-04-10 04:11:00 Singer [facility] TROPONIN I 2020-04-10 04:11:00 Singer [facility] COMP. METABOLIC PANEL 2020-04-10 04:11:00 Singer [facility] ([id number]) [facility] CBC WITH DIFF 2020-04-10 04:11:00 Singer [facility] N-TERMINAL PRO-BNP 2020-04-10 04:11:00 Singer [facility] EKG-12 LEAD 2020-04-10 03:55:43 Singer [facility] NOTICE OF PRIVACY 2020-04-10 03:51:52 Doctor Unassigned, No [facility] PRACTICES Name Medical Branch CONSENT/REFUSAL FOR 2020-04-10 03:51:01 Doctor Unassigned, No [facility] DIAGNOSIS AND TREATMENT Name Medical Branch COMP. METABOLIC PANEL 2020-02-25 18:39:00 Georgia Estrada [facility] ([id number]) Medical Branch CBC WITH DIFF 2020-02-25 18:39:00 Georgia Estrada [facility] EKG-12 LEAD 2020-02-25 18:27:17 Georgia Estrada [facility] CT ABDOMEN PELVIS W 2019-07-13 00:47:46 Diego Shelby [facility] POCT TEST 2019-07-13 00:29:00 Diego Shelby [facility] Medical Branch LIPASE 2019-07-12 23:07:00 Diego Shelby [facility] Medical [place] COMP. METABOLIC PANEL 2019-07-12 23:07:00 Diego [facility] ([id number]) [facility] CBC WITH DIFFERENTIAL 2019-07-12 23:07:00 Diego Shelby [facility] URINALYSIS 2019-07-12 23:07:00 Diego Shelby [facility] XR CHEST 1 VW 2019-03-06 16:21:04 Andressa [facility] Encounters Start End Encounter Admission Attending Care Care Encounter Source Date/Time Date/Time Type Type Clinicians Facility Department ID 2021 Outpatient [facility] [id number] [facility] 20:48:43 -[id number] [facility] 2021 Outpatient [facility] [id number] [facility] 20:48:43 -[id number] [facility] 2021-09-21 2021-09-21 Emergency Georgia Estrada [facility] 1.2.840. [id number] Univers 20:28:00 22:36:00 [id number] 4[facility]2.7.2.686 [facility] [id number] [facility] 084 Branch 2021-09-21 2021-09-21 Emergency X Villa VAZQUEZ [facility] ERT [id number] Univers 20:28:00 22:36:00 ity [facility] 2021-03-25 2021-03-25 Emergency [facility] [id number] Univers 03:49:00 11:27:00 [id number] [facility] 4.2.7.2.686 [facility] [id number] [facility] 084 Branch 2021-03-25 2021-03-25 Emergency X [facility] ERT [id number] Univers 03:49:00 03:49:00 ARNOLD kinneyy [facility] 2020-12-01 2020-12-01 Letter Melanie Kolb [id number] 00:00:00 00:00:00 (Out) Kash Julian [id number] [facility] 4.2.7.2.686 [id number] 2020-12-01 2020-12-01 Letter Melanie Kolb [id number] Univers 00:00:00 00:00:00 (Out) Kash Julian [id number] it y of [facility] 4.2.7.2.686 Vishal as [id number] [facility] 090 Branch 2020-11-22 2020-11-23 [facility] Miguelito Navarro [id number] 06:16:00 14:46:00 Encounter Rosmery Mai [id number] [facility] 4.2.7.2.686 [id number] [facility] 2020-11-22 2020-11-23 [facility] [id number] Univers 06:16:00 14:46:00 Encounter Rosmery Mai [id number] ity of [facility] 4.2.7.2.686 [place] [id number] [facility] 090 Branch 2020-11-22 2020-11-[address] [facility] ERT [id number] Univers 06:13:00 06:13:00 ity [facility] 2020-10-22 2020-10-22 Emergency Steinberg, Chaka TRAUMA [id number] 02:04:00 07:32:00 W CENTER [id number] 4.2.7.2.686 [id number] 014 2020-10-22 2020-10-22 Emergency Steinberg, Chaka TRAUMA [id number] Univers 02:04:00 07:32:00 W CENTER [id number] [place] [id number] [facility] 014 Branch 2020-10-22 2020-10-22 Emergency X STEINBERG, CHAKA [facility] ERT [id number] Univers 02:04:00 02:04:00 ity [facility] 2020-10-19 2020-10-20 Emergency TRAUMA [id number] 23:59:00 00:57:00 CENTER [id number] 4.2.7.2.686 [id number] 014 2020-10-19 2020-10-20 Emergency TRAUMA [id number] Univers 23:59:00 00:57:00 CENTER [id number] [place] [id number] [address] 2020-10-19 2020-10-20 Emergency X UNKNOWN, [facility] ERT [id number] Univers 23:59:00 00:57:[address] [facility] 2020-10-15 2020-10-15 Emergency Sergei, TRAUMA [id number] 07:37:00 15:30:00 [facility] [id number] 4.2.7.2.686 [id number] 014 2020-10-15 2020-10-15 Emergency Sergei, TRAUMA [id number] Univers 07:37:00 15:30:00 [facility] [id number] [place] [id number] [address] 2020-10-15 2020-10-[address] [facility] ERT [id number] Univers 07:28:00 07:28:[address] [facility] 2020-10-13 2020-10-13 Emergency Melissa, Gage E TRAUMA 1.2.840 .114 [id number] 04:42:00 11:13:00 [address] [id number] [place] 4.2.7.2.686 [id number] 014 2020-10-13 2020-10-13 Emergency Melissa, Gage E TRAUMA 1.2.840 .114 [id number] Univers 04:42:00 11:13:00 Miguel[address] [id number] ity of [place] 4.2.7.[address] [place] [address] [id number] [facility] 014 Branch 2020-10-13 2020-10-13 Emergency X MELISSA, [facility] ERT [id number] Univers 04:42:00 04:42:00 GAGE canales [facility] 2020-09-16 2020-09-17 Emergency William, [facility] [id number] 21:39:00 00:11:00 Cynise Swayzee 350.1.13.10 [place] [address] [place] [address] [id number] [facility] 2020-09-16 2020-09-17 Emergency William, [facility] [id number] Univers 21:39:00 00:11:00 Cynsameera Huynh [id number] i ty of [place] 4.2.7..[address] [place] [id number] 2020-09-16 2020-09-16 Emergency X WILLIAM, [facility] ERT [id number] Univers 21:39:00 21:39:00 HOANG canales [facility] 2020-09-12 2020-09-12 Emergency X GAY, [facility] ERT [id number] Univers 05:03:00 05:03:00 WILEY canales [facility] 2020-09-06 2020-09-06 [facility] [id number] 04:37:00 07:13:00 Arnold Huynh [id number] [place] [address] [place] [address] [id number] [facility] 2020-09-06 2020-09-06 Emergency Yaritx, [facility] [id number] Univers 04:37:00 07:13:00 Arnold Knowleston [id number] ity [facility] 4.2.7.2.[address] [place] [id number] 2020-09-06 2020-09-06 [facility] [id number] Univers 04:37:00 04:37:00 LALYJUSTUS ity [facility] 2020-09-01 2020-09-01 Emergency Drever, [facility] [id number] Univers 17:06:00 21:39:00 Ana Shepherd Lino [id number] ity of [place] [id number] [facility] 084 Branch 2020-09-01 2020-09-01 Emergency Drever, [facility] [id number] 17:06:00 21:39:00 Ana Huynh [id number] [place] 4.2.7.2.686 [place] [id number] 2020-09-01 2020-09-[address] [facility] ERT [id number] Univers 16:36:00 16:36:[address] [facility] [facility] 2020-09-01 2020-09-01 Orders Doctor GOODWIN 1.2.840.114 [id number] Univers 00:00:00 00:00:00 Only Unassigned, MAGDY 350.1.13.10 ity of [employer] [facility] 4.2.7.2.686 Vishal as [phone] [facility] [address] 2020-09-01 2020-09-01 Orders Doctor BUDDY 1.2.840.114 [id number] 00:00:00 00:00:00 Only Unassigned, MAGDY 350.1.13.10 [employer] [facility] 4.2.7.2.686 [id number] 009 2020-04-15 2020-04-15 Transition Francisco Price 1.2.840.114 [id number] Univers 00:00:00 00:00:00 of Care Rafaela M Morin 350.1.13.10 [place] [phone] [facility] [address] 2020-04-15 2020-04-15 Transition Francisco Price 1.2.840.114 [id number] 00:00:00 00:00:00 of Care Rafaela M Morin 350.1.13.10 [place] 4.2.7.2.686 [id number] [facility] 2020-04-11 2020-04-14 [facility] Melanie Brewer 1.2.539.461 [id number] Univers 06:55:00 20:35:00 Encounter Pedrito Julian 350.1.13.10 ity of [facility] 4.2.7.2.686 Vishal as [phone] [facility] [address] 2020-04-11 2020-04-[address] [facility] STR [id number] Univers 06:55:00 06:55:[address] [facility] 2020-04-10 2020-04-11 Emergency Melissa, TRAUMA 1.2.463.649 [id number] Univers 23:04:00 01:06:00 Gage SANDY 350.1.13.10 [place] [phone] [facility] [address] 2020-04-10 2020-04-10 Emergency X MELISSA, [facility] ERT [id number] Univers 23:04:00 23:04:[address] [facility] 2020-04-10 2020-04-10 Emergency Vamshi, Opal TRAUMA 1.2.840. 114 [id number] Univers 20:37:00 22:02:00 Pedrito Rosado 350.1.13.10 [place] [phone] [address] 2020-04-10 2020-04-10 Emergency X MIGUEL, [facility] ERT [id number] Univers 20:37:00 20:37:[address] [facility] 2020-04-09 2020-04-10 Emergency [facility] 1.2.332.891 [id number] Univers 22:56:00 00:49:00 Wiley Huynh 350.1.13.10 i [place] [phone] [facility] [address] 2020-04-09 2020-04-09 Emergency X [facility] ERT [id number] Univers 22:49:00 22:49:[address] [facility] 2020-02-25 2020-02-25 Emergency [facility] 1.2.696.707 [id number] Univers 13:23:00 14:09:00 Georgia Huynh 350.1.13.10 i [place] [phone] [facility] [address] 2020-02-25 2020-02-25 Emergency [facility] [id number] Univers 13:23:00 13:23:00 [place] ity of [facility] 2019-07-12 2019-07-12 Emergency Unknown, Attending TRAUMA 1.2.8 40.114 [id number] Univers 15:04:04 21:14:00 Gladys Marley [facility] 350.1.13. 10 ity [facility] 4[facility]7.2.686 [facility] [phone] [address] 2019-07-12 2019-07-12 Emergency [facility] [id number] Univers 15:04:04 21:14:[address] [facility] 2019-03-06 2019-03-06 Hospital [facility] [address] 1.2.840.114 [id number] Univers 11:16:49 23:59:00 Encounter Andressa Magana [facility] 350.1.13.10 ity of [place] [phone] [facility] [address] Results Test Description Test Time Test Comments Results Result Comments Source TROPONIN I 2021-09-22 02:32:27 Test Item Value Reference Range Interpretation Comme nts TROPONIN I (test code = 0.006 ng/mL See_Comment [Au tomated message] The 0477542471) system which ge nerated this result tra [...] biotin. Lab Interpretation Normal (test code = 32341-7) [facility] [id number] 02:29:25 Test Item Value Reference Range Interpretation Comments NT-proBNP (test code 77 pg/mL See_Comment [Autom ated = 4314511945) message] The system which generated this result transmitted reference range : <=125. The reference range was not used to interpret this result as normal/abnormal . PAULA (test code = PAULA) Biotin has been reported to cause a negative bias, interpret results relative to patient's use of biotin. Lab Interpretation Normal (test code = 98957-6) [facility] WITH [id number] 02:21:26 Test Item Value Reference Range Interpretation Comments WBC (test code = See_Comment [Automated message] The 6690-2) system which [facility] nerated this result tra nsmitted reference range : 4.30 - 11.10 10*3/?L. The reference range was not used to interpr et this result as normal/abnormal . RBC (test code = See_Comment [Automated message] The 789-8) system which [facility] nerated this result tra nsmitted reference range : 3.93 - 5.25 10*6/?L. T he reference range was not used to interpr et this result as normal/abnormal . HGB (test code = 14.4 g/dL 11.6-15.0 718-7) HCT (test code = 43.6 % 35.7-45.2 4544-3) MCV (test code = 89.3 fL 80.6-95.5 787-2) MCH (test code = 29.5 pg 25.9-32.8 785-6) MCHC (test code = 33.0 g/dL 31.6-35.1 786-4) RDW-SD (test code 45.0 fL 39.0-49.9 = 07244-4) RDW-CV (test code 13.6 % 12.0-15.5 = 788-0) PLT (test code = See_Comment [Automated message] The 777-3) system which [facility] nerated this result tra nsmitted reference range : 166 - 358 10*3/?L. Th e reference range was not used to interpr et this result as normal/abnormal . MPV (test code = 10.5 fL 9.5-12.9 54303-4) IPF % (test code 3.1 % 1.3-7.7 Platelet co unt measured = 8919097239) by fluorescenc e method. NRBC/100 WBC See_Comment [Automated mes joe] The (test code = system which [facility] nerated 8188698064) this result tra nsmitted reference range : 0.0 - 10.0 /100 WBCs. The reference range was not used to interpr et this result as normal/abnormal . NRBC x10^3 (test <0.01 See_Comment [Automated message] The code = system which ge nerated 6634327803) this result tra nsmitted reference range : 10*3/?L. The re ference range was not u sed to interpret this result as normal/abnormal . GRAN MAT (NEUT) % 75.4 % (test code = 770-8) IMM GRAN % (test 0.50 % code = 1164840693) LYMPH % (test 15.8 % code = 736-9) MONO % (test code 6.8 % = 5905-5) EOS % (test code 0.9 % = 713-8) BASO % (test code 0.6 % = 706-2) GRAN MAT 6.46 10*3/uL 1.88-7.09 x10^3(ANC) (test code = 3110743782) IMM GRAN x10^3 0.04 10*3/uL 0.00-0.06 (test code = 0664575312) LYMPH x10^3 (test 1.35 10*3/uL 1.32-3.29 code = 731-0) MONO x10^3 (test 0.58 10*3/uL 0.33-0.92 code = 742-7) EOS x10^3 (test 0.08 10*3/uL 0.03-0.39 code = 711-2) BASO x10^3 (test 0.05 10*3/uL 0.01-0.07 code = 704-7) [facility] Test Item Value Reference Range Interpretation Comments MAGNESIUM (test code = 9800881545) 2.0 mg/dL 1.7-2.4 Lab Interpretation (test code = Normal 15558-5) [facility] [place] [place]. METABOLIC PANEL (77305)2021-09-22 02:20:45 Test Item Value Reference Range Interpretation Comments NA (test code = 136 mmol/L 135-145 7298001035) K (test code = 4.7 mmol/L 3.5-5.0 0298160410) CL (test code = 106 mmol/L 98-108 6386945176) CO2 TOTAL (test code = 17 mmol/L 23-31 L 6407983014) AGAP (test code = 2-16 0236999828) BUN (test code = 10 mg/dL 7-23 3692999574) GLUCOSE (test code = 99 mg/dL 70-110 6984762984) CREATININE (test code = 0.50 mg/dL 0.50-1.04 6596141495) TOTAL BILI (test code = 0.9 mg/dL 0.1-1.6 6345175041) CALCIUM (test code = 8.9 mg/dL 8.6-10.6 6194548698) T PROTEIN (test code = 8.3 g/dL 6.3-8.2 H 8115831725) ALBUMIN (test code = 4.8 g/dL 3.5-5.0 8474870670) ALK PHOS (test code = 66 U/L 34-122 1127419934) ALTv (test code = 22 U/L 5-35 1742-6) AST(SGOT) (test code = 40 U/L 13-40 0993354177) eGFR (test code = mL/min/1.73m2 2080578629) PAULA (test code = PAULA) Association of [...] tests). Lab Interpretation Abnormal (test code = 70657-0) [facility] [id number] 01:43:00 Test Item Value Reference Range Interpretation Comments POCT PREG (test code = 1605) negative On board controls acceptable with present C Line (test code = 3574) POCT PREG LOT # (test code = 3575) [id number] POCT PREG TEST DATE (test 2022-08-23 code = 3576) Lab Interpretation (test code = Normal 79095-2) [facility] IrvingTROPONIN [id number] 12:15:08 Test Item Value Reference Interpretation Comments Range TROPONIN I (test 0.009 ng/mL See_Comment [Automated code = 9538886310) message] The system which generated this result [...] biotin. Lab Interpretation Normal (test code = 29427-6) [facility] IrvingD-[id number] 10:51:58 Test Item Value Reference Interpretation Comments Range D-DIMER (test code = See_Comment H [Autom ated 1190383109) message] The system which generated this result [...] diagnosis. Lab Interpretation Abnormal (test code = 17673-6) [facility] WITH [id number] 10:39:17 Test Item Value Reference Range Interpretation Comments WBC (test code = See_Comment [Automated 5345-2) message] The sy stem which generated this result transmitted reference range : 4.30 - 11.10 10*3/?L. The reference range was not used to interpret this result as normal/abnormal . RBC (test code = See_Comment [Automated 334-8) message] The sy stem which generated this [...] (test code = 51.8 fL 39.0-49.9 H 53942-7) RDW-CV (test code = 15.7 % 12.0-15.5 H 788-0) PLT (test code = See_Comment [Automated 777-3) message] The sy stem which generated this result transmitted reference range : 166 - 358 10*3/ ?L. The reference r micah was not used to interpret this result as normal/abnormal . MPV (test code = 10.2 fL 9.5-12.9 47697-5) IPF % (test code = 1.9 % 1.3-7.7 Platelet count 7133406090) measured by fluorescence method. NRBC/100 WBC (test See_Comment [Automat ed code = 7807467851) message] The system which generated this result transmitted reference range : 0.0 - 10.0 /100 WBCs. The refer ence range was not u sed to interpret th is result as normal/abnormal . NRBC x10^3 (test code <0.01 See_Comment [Auto mated = 4295944943) message] The s ystem which generated this result transmitted reference range : 10*3/?L. The reference range was not used to interpret this result as normal/abnormal . GRAN MAT (NEUT) % 63.4 % (test code = 770-8) IMM GRAN % (test code 0.20 % = 1024168745) LYMPH % (test code = 24.2 % 736-9) MONO % (test code = 10.4 % 5905-5) EOS % (test code = 0.9 % 713-8) BASO % (test code = 0.9 % 706-2) GRAN MAT x10^3(ANC) 3.34 10*3/uL 1.88-7.09 (test code = 5590472874) IMM GRAN x10^3 (test <0.03 0.00-0.06 code = 0460468241) LYMPH x10^3 (test code 1.28 10*3/uL 1.32-3.29 L = 731-0) MONO x10^3 (test code 0.55 10*3/uL 0.33-0.92 = 742-7) EOS x10^3 (test code = 0.05 10*3/uL 0.03-0.39 711-2) BASO x10^3 (test code 0.05 10*3/uL 0.01-0.07 = 704-7) PLT ESTIMATE (test Normal Normal code = 9317-9) Lab Interpretation Abnormal (test code = 51301-4) [facility] IrvingTR[facility] [id number] 10:26:56 Test Item Value Reference Interpretation Comments Range TROPONIN I (test 0.011 ng/mL See_Comment [Automated code = 9243701989) message] The system which generated this result [...] biotin. Lab Interpretation Normal (test code = 51806-4) [facility] IrvingCOMP. METABOLIC PANEL (34372)2021-03-25 10:15:34 Test Item Value Reference Range Interpretation Comments NA (test code = 141 mmol/L 135-145 9130854712) K (test code = 3.7 mmol/L 3.5-5.0 7679863129) CL (test code = 108 mmol/L 98-108 0939303179) CO2 TOTAL (test code = 23 mmol/L 23-31 9301944185) AGAP (test code = 2-16 1037618737) BUN (test code = 6 mg/dL 7-23 L 9484653421) GLUCOSE (test code = 108 mg/dL 70-110 1062290111) CREATININE (test code = 0.65 mg/dL 0.50-1.04 0186253484) TOTAL BILI (test code = 0.4 mg/dL 0.1-1.7 8101941399) CALCIUM (test code = 8.7 mg/dL 8.6-10.6 5268045263) T PROTEIN (test code = 7.9 g/dL 6.3-8.2 5724176704) ALBUMIN (test code = 4.3 g/dL 3.5-5.0 8144819523) ALK PHOS (test code = 72 U/L 34-122 5288151877) ALTv (test code = 31 U/L 5-35 2-6) AST(SGOT) (test code = 45 U/L 13-40 H 2514967943) eGFR (test code = mL/min/1.73m2 2628422696) PAULA (test code = PAULA) Association of [...] tests). Lab Interpretation Abnormal (test code = 42463-8) [facility] IrvingLIPASE2021-09-30 10:15:34 Test Item Value Reference Range Interpretation Comments LIPASE (test code = 3062643057) 54 U/L 0-220 Lab Interpretation (test code = Normal 67655-7) [facility] IrvingaPTT (for use with Heparin Drip)2020-11-23 11:10:10 Test Item Value Reference Range Interpretation Comments APTT Patient (test code See_Comment H [Au tomated message] = 3173-2) The system [employer] generated this result transmitted ref erence range: 26 - 36 Seconds. The reference range was not used to int erpret this result as normal/abnormal . Lab Interpretation (test Abnormal code = 48321-5) [facility] (NA, K, CL, CO2, GLUCOSE, BUN, CREATININE, CA)2020-11-23 05:36:05 Test Item Value Reference Range Interpretation Comments NA (test code = 133 mmol/L 135-145 L 8008247930) K (test code = 3.6 mmol/L 3.5-5.0 8285782930) CL (test code = 105 mmol/L 98-108 7498200535) CO2 TOTAL (test code = 24 mmol/L 23-31 2363372668) AGAP (test code = 2-16 5047996116) BUN (test code = 11 mg/dL 7-23 1305199338) GLUCOSE (test code = 104 mg/dL 70-110 2833573351) CREATININE (test code = 0.64 mg/dL 0.50-1.04 3272112567) CALCIUM (test code = 8.4 mg/dL 8.6-10.6 L 1133135218) eGFR (test code = mL/min/1.73m2 9822204136) PAULA (test code = PAULA) Association of [...] tests). Lab Interpretation Abnormal (test code = 62217-0) [facility] IrvingMagnesium [id number] 05:36:05 Test Item Value Reference Range Interpretation Comments MAGNESIUM (test code = 6373680892) 2.1 mg/dL 1.7-2.4 Lab Interpretation (test code = Normal 33439-7) [facility] IrvingaPTT (for use with Heparin Drip)2020-11-23 05:25:43 Test Item Value Reference Range Interpretation Comments APTT Patient (test code See_Comment H [Au tomated message] = 7903-2) The system [employer] h generated this result transmitted ref erence range: 26 - 36 Seconds. The reference range was not used to int erpret this result as normal/abnormal . Lab Interpretation (test Abnormal code = 78571-4) [facility] IrvingCB with [id number] 05:11:43 Test Item Value Reference Range Interpretation Comments WBC (test code = See_Comment [Automated 8890-2) message] The sy stem which generated this [...] RDW-SD (test code = 43.7 fL 39.0-49.9 98062-7) RDW-CV (test code = 13.1 % 12.0-15.5 788-0) PLT (test code = See_Comment [Automated 777-3) message] The sy stem which generated this result transmitted reference range : 166 - 358 10*3/ ?L. The reference r micah was not used to interpret this result as normal/abnormal . MPV (test code = 9.2 fL 9.5-12.9 L 51106-1) NRBC/100 WBC (test See_Comment [Automat ed code = 9929212831) message] The system which generated this result transmitted reference range : 0.0 - 10.0 /100 WBCs. The refer ence range was not u sed to interpret th is result as normal/abnormal . NRBC x10^3 (test code <0.01 See_Comment [Auto mated = 7800170716) message] The s ystem which generated this result transmitted reference range : 10*3/?L. The reference range was not used to interpret this result as normal/abnormal . GRAN MAT (NEUT) % 58.2 % (test code = 770-8) IMM GRAN % (test code 0.50 % = 2783422842) LYMPH % (test code = 28.4 % 736-9) MONO % (test code = 8.9 % 5905-5) EOS % (test code = 3.3 % 713-8) BASO % (test code = 0.7 % 706-2) GRAN MAT x10^3(ANC) 3.53 10*3/uL 1.88-7.09 (test code = 2965183079) IMM GRAN x10^3 (test 0.03 10*3/uL 0.00-0.06 code = 8881579113) LYMPH x10^3 (test code 1.72 10*3/uL 1.32-3.29 = 731-0) MONO x10^3 (test code 0.54 10*3/uL 0.33-0.92 = 742-7) EOS x10^3 (test code = 0.20 10*3/uL 0.03-0.39 711-2) BASO x10^3 (test code 0.04 10*3/uL 0.01-0.07 = 704-7) Lab Interpretation Abnormal (test code = 48969-5) [facility] IrvingXR CHEST 1 [id number] 00:27:06 No acute cardiopulmonary abnormality. Preliminary Report [...] acute cardiopulmonary abnormality.Preliminary Report Dictated by Resident: Navin Guzman MD., have reviewed this study and agree with theabove report. [facility] IrvingTHYROID STIMULATING [id number] 22:15:04 Test Item Value Reference Range Interpretation Comments TSH (test code = See_Comment [Automated message] 7544715686) The system [employer] generated this result transmitted ref erence range: 0.45 - 4 .70 mIU/L. The refe rence range was not u sed to interpret this result as normal/abnor mal. Lab Interpretation (test Normal code = 90900-5) [facility] IrvingGLYCOSYLATED HEMOGLOBIN (A1C)2020-11-22 22:14:59 Test Item Value Reference Range Interpretation Comments HGB A1C (test code = 5.1 % 4.0-5.7 4548-4) PAULA (test code = PAULA) Reference RangesNormal: <5.7%Prediabetes: 5.7 - 6.4%Diabetes: > 6.5% Lab Interpretation (test Normal code = 41117-1) [facility] IrvingFREE [id number] 22:01:07 Test Item Value Reference Range Interpretation Comments FREE T4 (test code = See_Comment [Autom ated message] 1062414351) The system [employer] generated this result transmitted ref erence range: 0.78 - 2 .20 ng/dL:. The ref erence range was not u sed to interpret this result as normal/abnor mal. Lab Interpretation (test Normal code = 73534-6) [facility] IrvingLIPID PANEL (58942)(TOTAL CHOLESTEROL, TRIGLYCERIDES, HDL)2020-11-22 21:44:08 Test Item Value Reference Range Interpretation Comments CHOL (test code = 279 mg/dL 120-200 H 7937915221) HDL (test code = 85 mg/dL >50 0255673642) HDLC RATIO (test code = See_Comment [Au tomated message] 3183195978) The system [employer] generated this result transmit bhaskar reference range : <=4.5. The refe rence range was not u sed to interpret th is result as normal/abnormal . TRIG (test code = 312 mg/dL 30-170 H 5569655156) LDL CHOL (test code = 132 mg/dL See_Comment [Auto mated message] 35733-4) The system [employer] generated this result transmit bhaskar reference range : <=160. The refe rence range was not u sed to interpret th is result as normal/abnormal . VLDL (test code = 62 mg/dL 5-60 H 4674567072) Lab Interpretation (test Abnormal code = 21822-7) [facility] IrvingCT ANGIOGRAM [id number] 21:04:53 1. ?No acute aortic syndrome. No [...] dissection and PE ? COMPARISON: ?None. DOSE: 2002.7 mGy-cm TECHNIQUE AND FINDINGS: Initially non contrast [...] UPPER ABDOMEN: Small type III hiatal hernia. [facility] Results Inft User - 11/22/2020 4:06 PM CDT PROCEDURE: CT ANGIO CHEST WITH CONTRAST - PE PROTOCOLCLINICAL INDICATION: 40-year-old female with history of drug use withsubsternal chest pain, evaluate for dissection and PE COMPARISON: None.DOSE: 2002.7 mGy- cmTECHNIQUE AND FINDINGS: Initially non contrast [...] III hiatal hernia.Preliminary Report Dictated by Resident:Chaka Gutierrez, Navin Ordonez MD., have reviewed this study and agree with theabove report.[facility] [id number] 20:12:00 Test Item Value Reference Range Interpretation Comments TROPONIN I (test 0.014 ng/mL See_Comment [Automated code = 9856205517) message] The system which generated this result [...] ? Lab Interpretation Normal (test code = 99236-3) [facility] IrvingCOVID-19 (ID NOW RAPID TESTING)2020-11-22 19:49:57 Test Item Value Reference Range Interpretation Comments SARS-CoV-2 Rapid ID NOW Not Detected Not Detected (test code = 45026-0) PAULA (test code = PAULA) ID NOW COVID-19 Assay is an isothermal nucleic acid amplification test intended for the qualitative detection of nucleic acid from SARS-CoV-2 viral RNA in nasopharyngeal ([employer]NA[employer]) specimens. It is used under Emergency Use [...] indicated. Lab Interpretation Normal (test code = 97819-9) [facility] IrvingPOCT [id number] 19:43:00 Test Item Value Reference Range Interpretation Comments POCT PREG (test code = 1605) negative On board controls acceptable with present C Line (test code = 3574) POCT PREG LOT # (test code = 3575) [id number] POCT PREG TEST DATE (test 05-25-2022 code = 3576) Lab Interpretation (test code = Normal 16673-3) [facility] IrvingTROPONIN [id number] 15:52:28 Test Item Value Reference Range Interpretation Comments TROPONIN I (test 0.047 ng/mL See_Comment H [Automated code = 0625794404) message] The system which generated this result [...] ? Lab Interpretation Abnormal (test code = 83316-8) [facility] IrvingURINE DRUG (IMMUNOASSAY) - COMPREHENSIVE DRUG [id number] 15:24:44 Test Item Value Reference Range Interpretation Comments AMPHET (test code = Presumptive Positive Negative A 7647339969) ANN U (test code = Negative Negative 0924368272) BENZO U (test code = Negative Negative 9184397064) Cocaine Metabolite (test Negative Negative code = 4984095250) METHADONE (test code = Negative Negative 7522904192) OPIATES (test code = Negative Negative 1308913683) PCP (test code = Negative Negative 3251499165) THC (test code = Negative Negative 7655081688) PAULA (test code = PAULA) Urine Drug [...] testing). Lab Interpretation (test Abnormal code = 41290-4) [facility] IrvingCK (CREATINE KINASE) + [id number] 13:16:38 Test Item Value Reference Range Interpretation Comments CK (test code = 751 U/L 33-194 H 6341378631) CK-MB (test code = 6.00 ng/mL See_Comment H [Automat ed 6613972944) message] The system which generated this result transmitted reference range : <=3.50. The reference range was not used to interpret this result as normal/abnormal . CKMB INDEX (test code 0.8 % 0.0-2.5 = 3639687281) PAULA (test code = PAULA) Biotin has been reported to cause a negative bias, interpret results relative to patient's use of biotin. Lab Interpretation Abnormal (test code = 75617-5) [facility] IrvingTROPONIN [id number] 13:16:38 Test Item Value Reference Range Interpretation Comments TROPONIN I (test 0.008 ng/mL See_Comment [Automated code = 3266225103) message] The system which generated this result [...] ? Lab Interpretation Normal (test code = 23829-6) [facility] IrvingSER DRUG (IMMUNOASSAY) - COMPREHENSIVE DRUG [id number] 13:13:47 Test Item Value Reference Range Interpretation Comments ANN S (test code = Negative Negative 6901017705) BENZO S (test code = Negative Negative 0924783093) TRICYCLIC (test code = Negative Negative 9351194519) PAULA (test code = PAULA) Serum Drug Screen Cutoff Ranges Barbiturates ? ? - 3 mcg/mLBenzodiazepines ?- 50 ng/mLTCA ?- 300 ng/mL Test developed and characteristics determined by [facility] Laboratory Services. The results are to be used only for medical (i.e., treatment) purposes. Unconfirmed screening results must not be used for non-medical purposes (e.g., employment testing, legal testing). Lab Interpretation Normal (test code = 43523-6) [facility] IrvingURINALYSIS2021-05-30 13:13:32 Test Item Value Reference Range Interpretation Comments APPEARANCE (test code = Clear Clear 6909025824) COLOR (test code = Colorless Yellow A 0759302323) PH (test code = 4.8-8.0 3153086416) SP GRAVITY (test code = 1.003-1.030 L 9790615746) GLU U QUAL (test code = Normal Normal 2809631928) BLOOD (test code = 1+ Negative A 6927080089) KETONES (test code = Negative Negative 4656296819) PROTEIN (test code = Negative Negative 2887-8) UROBILIN (test code = Normal Normal 9532299831) BILIRUBIN (test code = Negative Negative 8563240293) NITRITE (test code = Negative Negative 8234596935) LEUK JONATHON (test code = Negative Negative 1798707896) RBC/HPF (test code = See_Comment [Autom ated message] 3936265362) The system [employer] generated this result transmit bhaskar reference range : 0 - 3 HPF. The refe rence range was not u sed to interpret th is result as normal/abnormal . WBC/HPF (test code = <1 See_Comment [Autom ated message] 0167657776) The system [employer] generated this result transmit bhaskar reference range : 0 - 5 HPF. The refe rence range was not u sed to interpret th is result as normal/abnormal . BACTERIA (test code = Negative Negative 1204900547) AMORPHOUS (test code = Rare Rare HPF 0630886512) Lab Interpretation (test Abnormal code = 92695-4) [facility] IrvingD-[id number] 13:09:19 Test Item Value Reference Interpretation Comments Range D-DIMER (test code = See_Comment [Autom ated 9152080724) message] The system which generated this result [...] diagnosis. Lab Interpretation Normal (test code = 99000-8) [facility] [place], [place]. METABOLIC PANEL (07489)2020-11-22 13:06:21 Test Item Value Reference Range Interpretation Comments NA (test code = 139 mmol/L 135-145 8305960957) K (test code = 4.1 mmol/L 3.5-5.0 8538467497) CL (test code = 106 mmol/L 98-108 6273933444) CO2 TOTAL (test code = 20 mmol/L 23-31 L 5942892693) AGAP (test code = 2-16 1051348193) BUN (test code = 12 mg/dL 7-23 4823113816) GLUCOSE (test code = 92 mg/dL 70-110 6712444028) CREATININE (test code = 0.58 mg/dL 0.50-1.04 1867520086) TOTAL BILI (test code = 0.2 mg/dL 0.1-1.2 1995750797) CALCIUM (test code = 9.4 mg/dL 8.6-10.6 9712024379) T PROTEIN (test code = 7.6 g/dL 6.3-8.2 3368456167) ALBUMIN (test code = 4.5 g/dL 3.5-5.0 5942049954) ALK PHOS (test code = 70 U/L 34-122 5365889403) ALTv (test code = 14 U/L 5-35 1742-6) AST(SGOT) (test code = 29 U/L 13-40 7107654788) eGFR (test code = mL/min/1.73m2 8339959979) PAULA (test code = PAULA) Association of [...] tests). Lab Interpretation Abnormal (test code = 93924-7) [facility] IrvingETH[facility]OL2021-[facility]-30 13:06:21 Test Item Value Reference Range Interpretation Comments ALCOHOL (test code = 112 mg/dL 5024444245) PAULA (test code = Toxic Greater than or PAULA) equal to 80 mg/dL. NOTE: Whole blood values are approximately 10% to 15% lower than serum and plasma. [facility] IrvingLIPASE2021-05-30 13:06:21 Test Item Value Reference Range Interpretation Comments LIPASE (test code = 8135890320) 118 U/L 0-220 Lab Interpretation (test code = Normal 24579-2) [facility] IrvingCB WITH [id number] 13:00:59 Test Item Value Reference Range Interpretation Comments WBC (test code = See_Comment [Automated message] 8790-2) The system [employer] generated this result transmitted ref erence range: 4.30 - 1 1.10 10*3/?L. The re ference range was not u sed to interpret this result as normal/abnor mal. RBC (test code = See_Comment [Automated message] 879-8) The system [employer] generated this result transmitted ref erence range: [...] RDW-SD (test code 44.0 fL 39.0-49.9 = 45451-8) RDW-CV (test code 13.0 % 12.0-15.5 = 788-0) PLT (test code = See_Comment [Automated message] 307-3) The system [employer] generated this result transmitted ref erence range: 166 - 35 8 10*3/?L. The re ference range was not u sed to interpret this result as normal/abnor mal. MPV (test code = 9.9 fL 9.5-12.9 34409-7) NRBC/100 WBC (test See_Comment [Automat ed message] code = 7653904684) The syste m which generated this result transmitted ref erence range: 0.0 - 10 .0 /100 WBCs. The refer ence range was not u sed to interpret this result as normal/abnor mal. NRBC x10^3 (test <0.01 See_Comment [Automated message] code = 7666578822) The syste m which generated this result transmitted ref erence range: 10*3/?L. The reference range was not used to interpr et this result as normal/abnormal . GRAN MAT (NEUT) % 57.8 % (test code = 770-8) IMM GRAN % (test 0.30 % code = 9003015882) LYMPH % (test code 31.0 % = 736-9) MONO % (test code 8.7 % = 5905-5) EOS % (test code = 1.5 % 713-8) BASO % (test code 0.7 % = 706-2) GRAN MAT 3.37 10*3/uL 1.88-7.09 x10^3(ANC) (test code = 8700377221) IMM GRAN x10^3 <0.03 0.00-0.06 (test code = 4895486636) LYMPH x10^3 (test 1.81 10*3/uL 1.32-3.29 code = 731-0) MONO x10^3 (test 0.51 10*3/uL 0.33-0.92 code = 742-7) EOS x10^3 (test 0.09 10*3/uL 0.03-0.39 code = 711-2) BASO x10^3 (test 0.04 10*3/uL 0.01-0.07 code = 704-7) [facility] IrvingDRUG PAN[facility] 2 [id number] 11:58:10 Test Item Value Reference Range Interpretation Comments AMPHET (test code = Negative Negative 7392990460) ANN U (test code = Negative Negative 2183122754) BENZO U (test code = Negative Negative 0830591136) Cocaine Metabolite (test Negative Negative code = 3173383572) METHADONE (test code = Negative Negative 7042429223) OPIATES (test code = Negative Negative 8319655087) PCP (test code = Negative Negative 3994274614) THC (test code = Negative Negative 1008723947) PAULA (test code = PAULA) Urine Drug [...] testing). Lab Interpretation (test Normal code = 52378-9) [facility] IrvingUrinalysis2021-04-29 10:57:49 Test Item Value Reference Range Interpretation Comments APPEARANCE (test code = Clear Clear 2548557186) COLOR (test code = Colorless Yellow A 4727922482) PH (test code = 4.8-8.0 8705443594) SP GRAVITY (test code = 1.003-1.030 6028948921) GLU U QUAL (test code = Normal Normal 0725059545) BLOOD (test code = 2+ Negative A 8875817426) KETONES (test code = Negative Negative 2203506545) PROTEIN (test code = Negative Negative 2887-8) UROBILIN (test code = Normal Normal 6531644801) BILIRUBIN (test code = Negative Negative 7754124467) NITRITE (test code = Negative Negative 8215412634) LEUK JONATHON (test code = Negative Negative 8299315731) RBC/HPF (test code = See_Comment H [Autom ated message] 1658602917) The system [employer] generated this result transmit bhaskar reference range : 0 - 3 HPF. The refe rence range was not u sed to interpret th is result as normal/abnormal . WBC/HPF (test code = <1 See_Comment [Autom ated message] 9505085192) The system [employer] generated this result transmit bhaskar reference range : 0 - 5 HPF. The refe rence range was not u sed to interpret th is result as normal/abnormal . BACTERIA (test code = Negative Negative 9059305830) SQ EPITH (test code = <1 See_Comment [Auto mated message] 4320418974) The system [employer] generated this result transmit bhaskar reference range : <=2 HPF. The refere nce range was not u sed to interpret th is result as normal/abnormal . ASCORBIC ACID (test code Negative = 0438634621) Lab Interpretation (test Abnormal code = 10798-5) [facility] IrvingTROPONIN [id number] 10:29:23 Test Item Value Reference Range Interpretation Comments TROPONIN I (test 0.005 ng/mL See_Comment [Automated code = 3754547256) message] The system which generated this result [...] ? Lab Interpretation Normal (test code = 00926-7) [facility] IrvingPOCT [id number] 10:12:00 Test Item Value Reference Range Interpretation Comments POCT PREG (test code = 1605) negative On board controls acceptable with C present Line (test code = 3574) POCT PREG LOT # (test code = 3575) HCG Lab Interpretation (test code = Normal 15897-7) [facility] IrvingTroponin [id number] 08:15:07 Test Item Value Reference Range Interpretation Comments TROPONIN I (test 0.007 ng/mL See_Comment [Automated code = 7022682085) message] The system which generated this result [...] ? Lab Interpretation Normal (test code = 14126-2) [facility] IrvingCOVID-19 (ID NOW RAPID TESTING)2020-10-22 08:08:44 Test Item Value Reference Range Interpretation Comments SARS-CoV-2 Rapid ID NOW Not Detected Not Detected (test code = 60796-9) PAULA (test code = PAULA) ID NOW COVID-19 Assay is an isothermal nucleic acid amplification test intended for the qualitative detection of nucleic acid from SARS-CoV-2 viral RNA in nasopharyngeal ([employer]) specimens. It is used under Emergency Use [...] indicated. Lab Interpretation Normal (test code = 05655-0) [facility] Metabolic Panel (NA, K, CL, CO2, GLUCOSE, BUN, CREATININE, CA)2020-10-22 08:00:24 Test Item Value Reference Range Interpretation Comments NA (test code = 136 mmol/L 135-145 0292657822) K (test code = 5.1 mmol/L 3.5-5.0 H Slight 5184923325) hemolysis CL (test code = 107 mmol/L 98-108 7365888302) CO2 TOTAL (test code 22 mmol/L 23-31 L = 3736781514) AGAP (test code = 2-16 6633941882) BUN (test code = 10 mg/dL 7-23 Slight 5810837612) hemolysis GLUCOSE (test code = 107 mg/dL 70-110 8681655307) CREATININE (test code 0.56 mg/dL 0.50-1.04 = 4995095204) CALCIUM (test code = 8.6 mg/dL 8.6-10.6 6957146703) eGFR (test code = mL/min/1.73m2 4031184070) PAULA (test code = PAULA) Association of [...] tests). Lab Interpretation Abnormal (test code = 21440-5) [facility] IrvingHepatic Function Panel (ALB, T.PRO, BILI T, BU/BC, ALT, AST, ALK PHOS)2020-10-22 08:00:24 Test Item Value Reference Range Interpretation Comments TOTAL BILI (test code = 4477337787) 0.3 mg/dL 0.1-1.1 BILI UNCON (test code = 5698705764) 0.1 mg/dL 0.1-1.1 BILI CONJ (test code = 8514800237) 0.0 mg/dL 0.0-0.3 T PROTEIN (test code = 5345349009) 7.0 g/dL 6.3-8.2 ALBUMIN (test code = 3360321690) 3.9 g/dL 3.5-5.0 ALK PHOS (test code = 0719961489) 112 U/L 34-122 ALTv (test code = 1742-6) 292 U/L 5-35 H AST(SGOT) (test code = 4015076360) 322 U/L 13-40 H Lab Interpretation (test code = Abnormal 18509-1) [facility] IrvingEthanol [id number] 08:00:24 Test Item Value Reference Range Interpretation Comments ALCOHOL (test code = 67 mg/dL 6582778036) PAULA (test code = Toxic Greater than or PAULA) equal to 80 mg/dL. NOTE: Whole blood values are approximately 10% to 15% lower than serum and plasma. [facility] IrvingLipase [id number] 08:00:24 Test Item Value Reference Range Interpretation Comments LIPASE (test code = 4966535875) 165 U/L 0-220 Lab Interpretation (test code = Normal 91224-2) [facility] with Qlixgrfulglt3277-03-28 07:55:00 Test Item Value Reference Range Interpretation [...] RDW-SD (test code = 43.8 fL 39.0-49.9 90347-2) RDW-CV (test code = 13.2 % 12.0-15.5 788-0) PLT (test code = See_Comment [Automated 777-3) message] The sy stem which generated this result transmitted reference range : 166 - 358 10*3/ ?L. The reference r micah was not used to interpret this result as normal/abnormal . MPV (test code = 9.2 fL 9.5-12.9 L 43291-4) NRBC/100 WBC (test See_Comment [Automat ed code = 7080684092) message] The system which generated this result transmitted reference range : 0.0 - 10.0 /100 WBCs. The refer ence range was not u sed to interpret th is result as normal/abnormal . NRBC x10^3 (test code <0.01 See_Comment [Auto mated = 2266260488) message] The s ystem which generated this result transmitted reference range : 10*3/?L. The reference range was not used to interpret this result as normal/abnormal . GRAN MAT (NEUT) % 64.0 % (test code = 770-8) IMM GRAN % (test code 0.40 % = 9821859598) LYMPH % (test code = 24.3 % 736-9) MONO % (test code = 8.9 % 5905-5) EOS % (test code = 1.4 % 713-8) BASO % (test code = 1.0 % 706-2) GRAN MAT x10^3(ANC) 3.18 10*3/uL 1.88-7.09 (test code = 7422157603) IMM GRAN x10^3 (test <0.03 0.00-0.06 code = 5677169348) LYMPH x10^3 (test code 1.21 10*3/uL 1.32-3.29 L = 731-0) MONO x10^3 (test code 0.44 10*3/uL 0.33-0.92 = 742-7) EOS x10^3 (test code = 0.07 10*3/uL 0.03-0.39 711-2) BASO x10^3 (test code 0.05 10*3/uL 0.01-0.07 = 704-7) Lab Interpretation Abnormal (test code = 27004-8) [facility] 2 [id number] 18:12:05 No acute cardiopulmonary abnormality. Preliminary Report [...] acute cardiopulmonary abnormality.Preliminary Report Dictated by Resident: Charley Tarango, Kevyn Conley MD., have reviewed this study and agree with theabove report.[facility] IrvingCREATINE [id number] 17:21:00 Test Item Value Reference Range Interpretation Comments CK (test code = 1187936978) 765 U/L 33-194 H Lab Interpretation (test code = Abnormal 35044-2) [facility] IrvingLipase [id number] 17:20:59 Test Item Value Reference Range Interpretation Comments LIPASE (test code = 8330205868) 135 U/L 0-220 Lab Interpretation (test code = Normal 40297-1) [facility] IrvingTroponin [id number] 16:25:05 Test Item Value Reference Range Interpretation Comments TROPONIN I (test 0.007 ng/mL See_Comment [Automated code = 4801193613) message] The system which generated this result [...] ? Lab Interpretation Normal (test code = 71277-9) [facility] IrvingN-TERMINAL [id number] 16:25:04 Test Item Value Reference Range Interpretation Comments NT-proBNP (test code 178 pg/mL See_Comment H [Autom ated = 3981155815) message] The system which generated this result transmitted reference range : <=125. The reference range was not used to interpret this result as normal/abnormal . PAULA (test code = PAULA) Biotin has been reported to cause a negative bias, interpret results relative to patient's use of biotin. Lab Interpretation Abnormal (test code = 01211-3) [facility] IrvingBasi Metabolic Panel (NA, K, CL, CO2, GLUCOSE, BUN, CREATININE, CA)2020-10-15 16:13:24 Test Item Value Reference Range Interpretation Comments NA (test code = 135 mmol/L 135-145 9414536151) K (test code = 4.0 mmol/L 3.5-5.0 Slight 9998231869) hemolysis CL (test code = 109 mmol/L 98-108 H 7228379604) CO2 TOTAL (test code 21 mmol/L 23-31 L = 6978157870) AGAP (test code = 2-16 8665949479) BUN (test code = 11 mg/dL 7-23 Slight 1577868623) hemolysis GLUCOSE (test code = 98 mg/dL 70-110 2910771123) CREATININE (test code 0.54 mg/dL 0.50-1.04 = 1889241384) CALCIUM (test code = 8.1 mg/dL 8.6-10.6 L 6061184426) eGFR (test code = mL/min/1.73m2 5712146287) PAULA (test code = PAULA) Association of [...] tests). Lab Interpretation Abnormal (test code = 92138-0) [facility] IrvingHepatic Function Panel (ALB, T.PRO, BILI T, BU/BC, ALT, AST, ALK PHOS)2020-10-15 16:13:24 Test Item Value Reference Range Interpretation Comments TOTAL BILI (test code = 4366409914) 0.3 mg/dL 0.1-1.1 BILI UNCON (test code = 0987549500) 0.1 mg/dL 0.1-1.1 BILI CONJ (test code = 8070722810) 0.0 mg/dL 0.0-0.3 T PROTEIN (test code = 7941784585) 6.0 g/dL 6.3-8.2 L ALBUMIN (test code = 5549288697) 3.2 g/dL 3.5-5.0 L ALK PHOS (test code = 5305593788) 59 U/L 34-122 ALTv (test code = 1742-6) 74 U/L 5-35 H AST(SGOT) (test code = 3104710650) 100 U/L 13-40 H Lab Interpretation (test code = Abnormal 47021-7) [facility] IrvingPregnancy Test, [id number] 16:12:38 Test Item Value Reference Range Interpretation Comments PREG SERUM (test code Negative = 2477199979) PAULA (test code = PAULA) Less than 10 IU/L. ?If low titer or ectopic is suspected, resubmit specimen in 48-72 hours. [facility] IrvingTroponin [id number] 14:29:39TROPONIN IComment: Possible Contaminated specimen. ?Talked to Dr Mai to reorder Troponin and BNP. This is a corrected result. ?Previous result was 0.007 ng/mL on 10/15/2020 [facility] 0[facility] or Less than 0.034 ng/ml---Normal [...] results relative to patient's use of biotin. ?[facility] N-TERMINAL [id number] 14:28:48NT-proBNPComment: Possible Contaminated specimen. ?Talked to Dr Mai to reorder Troponin and BNP. This is a corrected result. ?Previous result was 41 pg/mL on 10/15/2020 at 0904 [facility] SERVICESBiotin has been reported to cause a negative bias, interpret results relative to patient's use of biotin.[facility] IrvingLipase [id number] 14:09:09LIPASEComment: Possible contamination of specimen. Dr Mai to reorder for recollection. This is a corrected result. ?Previous result was 16 U/L on 10/15/2020 at 0852 [facility] SERVICESUnB[facility] Round RockCREATINE [id number] 14:08:28CKComment: Possible contamination of specimen. Dr Mai to reorder for recollection. This is a corrected result. ?Previous result was 230 U/L on 10/15/2020 at 0852 [facility] SERVICESUnB[facility] Round RockCT HEAD WO CONTRAST 2020-10-15 13:47:51 No acute [...] fracture. Visualized paranasal sinuses are essentially clear. [facility], Radiant Results Inft User- 10/15/2020 8:48 AM [...] IMPRESSIONNo acute intracranial hemorrhage or mass effect. [facility] IrvingXR CHEST 1 [id number] 14:06:46 No acute cardiopulmonary process. Preliminary Report Dictated by Resident: Hany Jerome MD., have reviewed this study and agree with theabove report.EXAM: XR CHEST 1 VW HISTORY: chest pain COMPARISON: Chest radiograph on 09/12/2020 TECHNIQUE: AP view radiograph of the chest FINDINGS: The lungs are clear. No pleural effusion or pneumothorax. The heart size is normal. Noacute osseous abnormality is identified. [facility], Radiant Results Inft User - 10/13/2020 9:07 AM CDTEXAM: XR CHEST 1 VWHISTORY: chest pain COMPARISON: Chest radiograph on 09/12/2020 TECHNIQUE: AP view radiograph of the chestFINDINGS:The lungs are clear. No pleural effusion or pneumothorax. The heart sizeis normal. No acute osseous abnormality is identified.IMPRESSIONNo acute cardiopulmonary process.Preliminary Report Dictated by Resident: Hany Willard MD., have reviewed this study and agree with theabove report.[facility] [place], [place]. METABOLIC PANEL ([id number]) 2020-10-13 11:48:17 Test Item Value Reference Range Interpretation Comments NA (test code = 137 mmol/L 135-145 9668168537) K (test code = 4.2 mmol/L 3.5-5.0 Slight 3466294869) hemolysis CL (test code = 110 mmol/L 98-108 H 4864004179) CO2 TOTAL (test code 18 mmol/L 23-31 L = 2039321344) AGAP (test code = 2-16 5167261001) BUN (test code = 13 mg/dL 7-23 Slight 7180881417) hemolysis GLUCOSE (test code = 104 mg/dL 70-110 4740550308) CREATININE (test code 0.63 mg/dL 0.50-1.04 = 5331487805) TOTAL BILI (test code 0.5 mg/dL 0.1-1.1 = 8674181399) CALCIUM (test code = 8.1 mg/dL 8.6-10.6 L 7581601176) T PROTEIN (test code 7.0 g/dL 6.3-8.2 = 9535367776) ALBUMIN (test code = 3.8 g/dL 3.5-5.0 6885268962) ALK PHOS (test code = 55 U/L 34-122 Slight 9376724646) hemolysis ALTv (test code = 49 U/L 5-35 H 1742-6) AST(SGOT) (test code 72 U/L 13-40 H Slight = 9464322949) hemolysis eGFR (test code = mL/min/1.73m2 4136979446) PAULA (test code = PAULA) Association of [...] tests). Lab Interpretation Abnormal (test code = 50530-1) [facility] IrvingDrug Screen [id number] 11:42:55 Test Item Value Reference Range Interpretation Comments AMPHET (test code = Presumptive Positive Negative A 2126801542) Cocaine Metabolite (test Negative Negative code = 9891367671) OPIATES (test code = Presumptive Positive Negative A 3015060325) THC (test code = Negative Negative 7844404529) PAULA (test code = PAULA) Urine Drug Cutoff Ranges Amphetamine: ? 1,000 ng/mLCocaine: ? 150 ng/mLOpiates: ? 300 ng/mLCannabinoids: ?50 ng/mL The results are to be used only for medical (i.e., treatment) purposes. Unconfirmed screening results must not be used for non-medical purposes (e.g., employment testing, legal testing). Lab Interpretation (test Abnormal code = 60355-2) [facility] IrvingDRUG SCREEN PANEL 2 [id number] 11:42:35 Test Item Value Reference Range Interpretation Comments AMPHET (test code = Presumptive Positive Negative A 8804470544) ANN U (test code = Negative Negative 8864570792) BENZO U (test code = Negative Negative 1684212291) Cocaine Metabolite (test Negative Negative code = 5464273084) METHADONE (test code = Negative Negative 8634227196) OPIATES (test code = Presumptive Positive Negative A 3718999330) PCP (test code = Negative Negative 6590000047) THC (test code = Negative Negative 2542918995) PAULA (test code = PAULA) Urine Drug [...] testing). Lab Interpretation (test Abnormal code = 25193-9) [facility] IrvingD-[id number] 11:32:36 Test Item Value Reference Interpretation Comments Range D-DIMER (test code = See_Comment [Autom ated 8623326325) message] The system which generated this result [...] diagnosis. Lab Interpretation Normal (test code = 41594-9) [facility] IrvingURINALYSIS2021-04-20 11:29:49 Test Item Value Reference Range Interpretation Comments APPEARANCE (test code = Clear Clear 4674727381) COLOR (test code = Straw Yellow A 1679400516) PH (test code = 4.8-8.0 3273663210) SP GRAVITY (test code = 1.003-1.030 7493270813) GLU U QUAL (test code = Normal Normal 6246179994) BLOOD (test code = Negative Negative 2956017152) KETONES (test code = Negative Negative 8628872499) PROTEIN (test code = Negative Negative 2887-8) UROBILIN (test code = Normal Normal 5697373795) BILIRUBIN (test code = Negative Negative 3612605714) NITRITE (test code = Negative Negative 1044947090) LEUK JONATHON (test code = Negative Negative 8345555376) RBC/HPF (test code = <1 See_Comment [Autom ated message] 1217294123) The system [employer] generated this result transmitted ref erence range: 0 - 3 HP F. The reference range was not used to int erpret this result as normal/abnormal . WBC/HPF (test code = <1 See_Comment [Autom ated message] 5460499072) The system [employer] generated this result transmitted ref erence range: 0 - 5 HP F. The reference range was not used to int erpret this result as normal/abnormal . BACTERIA (test code = Few Negative A 4506385053) SQ EPITH (test code = See_Comment [Auto mated message] 6739222412) The system [employer] generated this result transmitted ref erence range: <=2 HPF. The reference range was not used to int erpret this result as normal/abnormal . Lab Interpretation (test Abnormal code = 35880-1) [facility] IrvingPOCT [id number] 11:13:00 Test Item Value Reference Range Interpretation Comments POCT PREG (test code = 1605) negative On board controls acceptable with present C Line (test code = 3574) POCT PREG LOT # (test code = 3575) [id number] POCT PREG TEST DATE (test 2022-05-25 code = 3576) Lab Interpretation (test code = Normal 45559-0) [facility] IrvingTHYROID STIMULATING [id number] 11:12:54 Test Item Value Reference Range Interpretation Comments TSH (test code = See_Comment H [Automated message] 1269202600) The system [employer] generated this result transmitted ref erence range: 0.45 - 4 .70 mIU/L. The refe rence range was not u sed to interpret this result as normal/abnor mal. Lab Interpretation (test Abnormal code = 27578-2) [facility] IrvingTroponin [id number] 10:54:13 Test Item Value Reference Range Interpretation Comments TROPONIN I (test 0.013 ng/mL See_Comment [Automated code = 7935644484) message] The system which generated this result [...] ? Lab Interpretation Normal (test code = 64354-6) [facility] IrvingEthanol [id number] 10:53:52 Test Item Value Reference Range Interpretation Comments ALCOHOL (test code = <10 mg/dL 8900005388) PAULA (test code = Toxic Greater than or PAULA) equal to 80 mg/dL. NOTE: Whole blood values are approximately 10% to 15% lower than serum and plasma. [facility] with Rsunlcicgieo5840-39-91 10:49:12 Test Item Value Reference Range Interpretation Comments WBC (test code = See_Comment [Automated message] 6690-2) The system [employer] generated this result transmitted ref erence range: 4.30 - 1 1.10 10*3/?L. The re ference range was not u sed to interpret this result as normal/abnor mal. RBC (test code = See_Comment [Automated message] 789-8) The system [employer] generated this result transmitted ref erence range: [...] RDW-SD (test code 43.8 fL 39.0-49.9 = 53967-4) RDW-CV (test code 12.9 % 12.0-15.5 = 788-0) PLT (test code = See_Comment [Automated message] 777-3) The system [employer] generated this result transmitted ref erence range: 166 - 35 8 10*3/?L. The re ference range was not u sed to interpret this result as normal/abnor mal. MPV (test code = 9.5 fL 9.5-12.9 54030-2) NRBC/100 WBC (test See_Comment [Automat ed message] code = 3227253013) The syste m which generated this result transmitted ref erence range: 0.0 - 10 .0 /100 WBCs. The refer ence range was not u sed to interpret this result as normal/abnor mal. NRBC x10^3 (test <0.01 See_Comment [Automated message] code = 2688727910) The syste m which generated this result transmitted ref erence range: 10*3/?L. The reference range was not used to interpr et this result as normal/abnormal . GRAN MAT (NEUT) % 66.8 % (test code = 770-8) IMM GRAN % (test 0.30 % code = 9517783247) LYMPH % (test code 21.6 % = 736-9) MONO % (test code 9.2 % = 5905-5) EOS % (test code = 1.4 % 713-8) BASO % (test code 0.7 % = 706-2) GRAN MAT 4.73 10*3/uL 1.88-7.09 x10^3(ANC) (test code = 8766262404) IMM GRAN x10^3 <0.03 0.00-0.06 (test code = 1711379483) LYMPH x10^3 (test 1.53 10*3/uL 1.32-3.29 code = 731-0) MONO x10^3 (test 0.65 10*3/uL 0.33-0.92 code = 742-7) EOS x10^3 (test 0.10 10*3/uL 0.03-0.39 code = 711-2) BASO x10^3 (test 0.05 10*3/uL 0.01-0.07 code = 704-7) [facility] [id number] 10:44:47 Test Item Value Reference Range Interpretation Comments LIPASE (test code = 4279987727) 172 U/L 0-220 Lab Interpretation (test code = Normal 82128-5) [facility] IrvingProthrombin Time (PT) / [id number] 10:43:11 Test Item Value Reference Range Interpretation Comments PROTIME PATIENT (test See_Comment [Auto mated message] code = 5964-2) The system 5app ich generated this result transmitted ref erence range: 10.1 - 1 2.6 Seconds. The re ference range was not u sed to interpret this result as normal/abnor mal. INR (test code = 6301-6) Nor mal INR <1.1; Warfarin Therap eutic range 2.0 to 3. 0 or 2.5 to 3.5, dep ending upon the indica tions. Lab Interpretation (test Normal code = 77724-9) [facility] IrvingaPTT2021-04-20 10:43:11 Test Item Value Reference Range Interpretation Comments APTT Patient (test code See_Comment L [Au tomated message] = 3173-2) The system [employer] generated this result transmitted ref erence range: 26 - 36 Seconds. The reference range was not used to int erpret this result as normal/abnormal . Lab Interpretation (test Abnormal code = 56149-5) [facility] IrvingCOVID-19 (ID NOW RAPID TESTING)2020-10-13 10:28:07 Test Item Value Reference Range Interpretation Comments SARS-CoV-2 Rapid ID NOW Not Detected Not Detected (test code = 49943-2) PAULA (test code = PAULA) ID NOW COVID-19 Assay is an isothermal nucleic acid amplification test intended for the qualitative detection of nucleic acid from SARS-CoV-2 viral RNA in nasopharyngeal ([employer]) specimens. It is used under Emergency Use [...] indicated. Lab Interpretation Normal (test code = 42744-8) [facility] IrvingPREGNANCY TEST, [id number] 03:54:33 Test Item Value Reference Range Interpretation Comments PREG SERUM (test code Negative = 6558862959) PAULA (test code = PAULA) Less than 10 IU/L. ?If low titer or ectopic is suspected, resubmit specimen in 48-72 hours. [facility] Metabolic Panel (NA, K, CL, CO2, GLUCOSE, BUN, CREATININE, CA)2020-09-17 03:26:58 Test Item Value Reference Range Interpretation Comments NA (test code = 135 mmol/L 135-145 5809700848) K (test code = 3.8 mmol/L 3.5-5.0 2954720796) CL (test code = 99 mmol/L 98-108 3728950205) CO2 TOTAL (test code = 24 mmol/L 23-31 7844027406) AGAP (test code = 2-16 9184574539) BUN (test code = 9 mg/dL 7-23 1673333560) GLUCOSE (test code = 100 mg/dL 70-110 7180053718) CREATININE (test code 0.74 mg/dL 0.50-1.04 = 3449071932) CALCIUM (test code = 9.1 mg/dL 8.6-10.6 2185266995) eGFR Calculation mL/min/1.73m2 (Non-) (test code = 0478305316) eGFR Calculation mL/min/1.73m2 () (test code = 3648868555) PAULA (test code = PAULA) Association of [...] or urine or abnormalities in imaging tests). [facility] IrvingHepatic Function Panel (ALB, T.PRO, BILI T, BU/BC, ALT, AST, ALK PHOS)2020-09-17 03:26:58 Test Item Value Reference Range Interpretation Comments TOTAL BILI (test code = 1603329436) 0.4 mg/dL 0.1-1.1 BILI UNCON (test code = 9975326378) 0.2 mg/dL 0.1-1.1 BILI CONJ (test code = 0392305977) 0.0 mg/dL 0.0-0.3 T PROTEIN (test code = 5871593157) 8.6 g/dL 6.3-8.2 H ALBUMIN (test code = 8300975771) 5.1 g/dL 3.5-5.0 H ALK PHOS (test code = 2489581583) 114 U/L 34-122 ALTv (test code = 1742-6) 28 U/L 5-35 AST(SGOT) (test code = 0901907943) 47 U/L 13-40 H Lab Interpretation (test code = Abnormal 45728-7) [facility] IrvingLipase [id number] 03:26:58 Test Item Value Reference Range Interpretation Comments LIPASE (test code = 4933876528) 81 U/L 0-220 Lab Interpretation (test code = Normal 67193-5) [facility] IrvingCBC with [id number] 03:13:16 Test Item Value Reference Range Interpretation Comments WBC (test code = See_Comment [Automated 8965-2) message] The sy stem which generated this result transmitted reference range : 4.30 - 11.10 10*3/?L. The reference range was not used to interpret this result as normal/abnormal . RBC (test code = See_Comment [Automated 265-8) message] The sy stem which generated this [...] RDW-SD (test code = 42.8 fL 39.0-49.9 43455-0) RDW-CV (test code = 12.8 % 12.0-15.5 788-0) PLT (test code = See_Comment [Automated 777-3) message] The sy stem which generated this result transmitted reference range : 166 - 358 10*3/ ?L. The reference r micah was not used to interpret this result as normal/abnormal . MPV (test code = 8.9 fL 9.5-12.9 L 57181-1) NRBC/100 WBC (test See_Comment [Automat ed code = 1319971886) message] The system which generated this result transmitted reference range : 0.0 - 10.0 /100 WBCs. The refer ence range was not u sed to interpret th is result as normal/abnormal . NRBC x10^3 (test code <0.01 See_Comment [Auto mated = 2614754846) message] The s ystem which generated this result transmitted reference range : 10*3/?L. The reference range was not used to interpret this result as normal/abnormal . GRAN MAT (NEUT) % 44.7 % (test code = 770-8) IMM GRAN % (test code 0.50 % = 6888624224) LYMPH % (test code = 44.6 % 736-9) MONO % (test code = 8.2 % 5905-5) EOS % (test code = 0.9 % 713-8) BASO % (test code = 1.1 % 706-2) GRAN MAT x10^3(ANC) 2.84 10*3/uL 1.88-7.09 (test code = 6650255831) IMM GRAN x10^3 (test 0.03 10*3/uL 0.00-0.06 code = 3123424083) LYMPH x10^3 (test code 2.83 10*3/uL 1.32-3.29 = 731-0) MONO x10^3 (test code 0.52 10*3/uL 0.33-0.92 = 742-7) EOS x10^3 (test code = 0.06 10*3/uL 0.03-0.39 711-2) BASO x10^3 (test code 0.07 10*3/uL 0.01-0.07 = 704-7) Lab Interpretation Abnormal (test code = 11759-6) [facility] IrvingN-TERMINAL [id number] 11:23:18 Test Item Value Reference Range Interpretation Comments NT-proBNP (test code 100 pg/mL See_Comment [Autom ated = 2042148188) message] The system which generated this result transmitted reference range : <=125. The reference range was not used to interpret this result as normal/abnormal . PAULA (test code = PAULA) Biotin has been reported to cause a negative bias, interpret results relative to patient's use of biotin. Lab Interpretation Normal (test code = 64820-9) [facility] WITH [id number] 11:03:17 Test Item Value Reference Range Interpretation Comments WBC (test code = See_Comment [Automated 0990-2) message] The sy stem which generated this result transmitted reference range : 4.30 - 11.10 10*3/?L. The reference range was not used to interpret this result as normal/abnormal . RBC (test code = See_Comment [Automated 915-8) message] The sy stem which generated this [...] RDW-SD (test code = 44.5 fL 39.0-49.9 11197-1) RDW-CV (test code = 12.7 % 12.0-15.5 788-0) PLT (test code = See_Comment [Automated 777-3) message] The sy stem which generated this result transmitted reference range : 166 - 358 10*3/ ?L. The reference r micah was not used to interpret this result as normal/abnormal . MPV (test code = 10.3 fL 9.5-12.9 58393-7) NRBC/100 WBC (test See_Comment [Automat ed code = 3464291075) message] The system which generated this result transmitted reference range : 0.0 - 10.0 /100 WBCs. The refer ence range was not u sed to interpret th is result as normal/abnormal . NRBC x10^3 (test code <0.01 See_Comment [Auto mated = 3034871701) message] The s ystem which generated this result transmitted reference range : 10*3/?L. The reference range was not used to interpret this result as normal/abnormal . GRAN MAT (NEUT) % 51.5 % (test code = 770-8) IMM GRAN % (test code 0.40 % = 0540311739) LYMPH % (test code = 35.6 % 736-9) MONO % (test code = 8.2 % 5905-5) EOS % (test code = 3.1 % 713-8) BASO % (test code = 1.2 % 706-2) GRAN MAT x10^3(ANC) 3.78 10*3/uL 1.88-7.09 (test code = 6281871729) IMM GRAN x10^3 (test 0.03 10*3/uL 0.00-0.06 code = 8071060718) LYMPH x10^3 (test code 2.61 10*3/uL 1.32-3.29 = 731-0) MONO x10^3 (test code 0.60 10*3/uL 0.33-0.92 = 742-7) EOS x10^3 (test code = 0.23 10*3/uL 0.03-0.39 711-2) BASO x10^3 (test code 0.09 10*3/uL 0.01-0.07 H = 704-7) Lab Interpretation Abnormal (test code = 39944-0) [facility] IrvingTROPONIN [id number] 10:38:33 Test Item Value Reference Range Interpretation Comments TROPONIN I (test <0.012 See_Comment [Automated code = 1901684020) message] The system which generated this result [...] ? Lab Interpretation Normal (test code = 64644-0) [facility] IrvingCOMP. METABOLIC PANEL (59688)2020-09-06 10:26:52 Test Item Value Reference Range Interpretation Comments NA (test code = 134 mmol/L 135-145 L 8132273108) K (test code = 3.9 mmol/L 3.5-5.0 4462897360) CL (test code = 100 mmol/L 98-108 4496493959) CO2 TOTAL (test code = 27 mmol/L 23-31 0091806833) AGAP (test code = 2-16 5727684418) BUN (test code = 17 mg/dL 7-23 7343587551) GLUCOSE (test code = 90 mg/dL 70-110 4857275975) CREATININE (test code = 0.65 mg/dL 0.50-1.04 5410715146) TOTAL BILI (test code = 0.4 mg/dL 0.1-1.9 5366130294) CALCIUM (test code = 8.3 mg/dL 8.6-10.6 L 6505038096) T PROTEIN (test code = 7.1 g/dL 6.3-8.2 9440198841) ALBUMIN (test code = 4.1 g/dL 3.5-5.0 9365524928) ALK PHOS (test code = 101 U/L 34-122 3616278038) ALTv (test code = 47 U/L 5-35 H 1742-6) AST(SGOT) (test code = 45 U/L 13-40 H 5387856064) eGFR Calculation mL/min/1.73m2 (Non-) (test code = 4987663768) eGFR Calculation mL/min/1.73m2 () (test code = 1094226728) PAULA (test code = PAULA) Association of [...] tests). Lab Interpretation Abnormal (test code = 50267-1) [facility] IrvingLIPASE, [id number] 10:26:32 Test Item Value Reference Range Interpretation Comments LIPASE (test code = 2820382974) 139 U/L 0-220 Lab Interpretation (test code = Normal 96891-2) [facility] IrvingD-[id number] 03:26:49 Test Item Value Reference Interpretation Comments Range D-DIMER (test code = <0.27 See_Comment [Autom ated 7945269826) message] The system which generated this result [...] diagnosis. Lab Interpretation Normal (test code = 71627-9) [facility] IrvingTHYROID STIMULATING [id number] 02:42:25 Test Item Value Reference Range Interpretation Comments TSH (test code = See_Comment [Automated message] 3868174992) The system [employer] generated this result transmitted ref erence range: 0.45 - 4 .70 mIU/L. The refe rence range was not u sed to interpret this result as normal/abnor mal. Lab Interpretation (test Normal code = 57392-7) [facility] IrvingN-TERMINAL [id number] 02:20:57 Test Item Value Reference Range Interpretation Comments NT-proBNP (test code 223 pg/mL See_Comment H [Autom ated = 0902371327) message] The system which generated this result transmitted reference range : <=125. The reference range was not used to interpret this result as normal/abnormal . PAULA (test code = PAULA) Biotin has been reported to cause a negative bias, interpret results relative to patient's use of biotin. Lab Interpretation Abnormal (test code = 43771-7) [facility] IrvingTroponin [id number] 01:06:21 Test Item Value Reference Range Interpretation Comments TROPONIN I (test <0.012 See_Comment [Automated code = 9520919990) message] The system which generated this result [...] ? Lab Interpretation Normal (test code = 26932-4) [facility] IrvingHepatic Function Panel (ALB, T.PRO, BILI T, BU/BC, ALT, AST, ALK PHOS)2020-09-02 00:56:20 Test Item Value Reference Range Interpretation Comments TOTAL BILI (test code = 0768169740) 0.5 mg/dL 0.1-1.1 BILI UNCON (test code = 9542338957) 0.3 mg/dL 0.1-1.1 BILI CONJ (test code = 6701382129) 0.0 mg/dL 0.0-0.3 T PROTEIN (test code = 7214149264) 8.1 g/dL 6.3-8.2 ALBUMIN (test code = 3394426723) 4.7 g/dL 3.5-5.0 ALK PHOS (test code = 2914952159) 109 U/L 34-122 ALTv (test code = 1742-6) 75 U/L 5-35 H AST(SGOT) (test code = 3254606632) 53 U/L 13-40 H Lab Interpretation (test code = Abnormal 30293-6) [facility] Metabolic Panel (NA, K, CL, CO2, GLUCOSE, BUN, CREATININE, CA)2020-09-02 00:56:00 Test Item Value Reference Range Interpretation Comments NA (test code = 136 mmol/L 135-145 7435399323) K (test code = 3.8 mmol/L 3.5-5.0 6798123621) CL (test code = 99 mmol/L 98-108 6321254864) CO2 TOTAL (test code = 27 mmol/L 23-31 0043747953) AGAP (test code = 2-16 6596824445) BUN (test code = 4 mg/dL 7-23 L 1053848691) GLUCOSE (test code = 115 mg/dL 70-110 H 9391419414) CREATININE (test code = 0.49 mg/dL 0.50-1.04 L 5251944248) CALCIUM (test code = 9.4 mg/dL 8.6-10.6 1648271267) eGFR Calculation mL/min/1.73m2 (Non-) (test code = 2677389180) eGFR Calculation mL/min/1.73m2 () (test code = 5598035465) PAULA (test code = PAULA) Association of [...] tests). Lab Interpretation Abnormal (test code = 91602-1) [facility] IrvingLipase [id number] 00:56:00 Test Item Value Reference Range Interpretation Comments LIPASE (test code = 2646249632) 60 U/L 0-220 Lab Interpretation (test code = Normal 74677-1) [facility] IrvingCOVID-19 (ID NOW RAPID TESTING)2020-09-02 00:31:12 Test Item Value Reference Range Interpretation Comments SARS-CoV-2 Rapid ID NOW Not Detected Not Detected (test code = 41780-7) PAULA (test code = PAULA) ID NOW COVID-19 Assay is an isothermal nucleic acid amplification test intended for the qualitative detection of nucleic acid from SARS-CoV-2 viral RNA in nasopharyngeal ([employer]) specimens. It is used under Emergency Use [...] indicated. Lab Interpretation Normal (test code = 97648-9) [facility] with [id number] 00:21:26 Test Item Value Reference Range Interpretation Comments WBC (test code = See_Comment [Automated 0590-2) message] The sy stem which generated this [...] RDW-SD (test code = 43.6 fL 39.0-49.9 95294-9) RDW-CV (test code = 12.9 % 12.0-15.5 788-0) PLT (test code = See_Comment H [Automated 777-3) message] The sy stem which generated this result transmitted reference range : 166 - 358 10*3/ ?L. The reference r micah was not used to interpret this result as normal/abnormal . MPV (test code = 9.4 fL 9.5-12.9 L 67155-5) NRBC/100 WBC (test See_Comment [Automat ed code = 5935179445) message] The system which generated this result transmitted reference range : 0.0 - 10.0 /100 WBCs. The refer ence range was not u sed to interpret th is result as normal/abnormal . NRBC x10^3 (test code <0.01 See_Comment [Auto mated = 8810019445) message] The s ystem which generated this result transmitted reference range : 10*3/?L. The reference range was not used to interpret this result as normal/abnormal . GRAN MAT (NEUT) % 71.0 % (test code = 770-8) IMM GRAN % (test code 0.50 % = 8386282371) LYMPH % (test code = 19.1 % 736-9) MONO % (test code = 7.6 % 5905-5) EOS % (test code = 0.7 % 713-8) BASO % (test code = 1.1 % 706-2) GRAN MAT x10^3(ANC) 6.08 10*3/uL 1.88-7.09 (test code = 0706446953) IMM GRAN x10^3 (test 0.04 10*3/uL 0.00-0.06 code = 4006257769) LYMPH x10^3 (test code 1.63 10*3/uL 1.32-3.29 = 731-0) MONO x10^3 (test code 0.65 10*3/uL 0.33-0.92 = 742-7) EOS x10^3 (test code = 0.06 10*3/uL 0.03-0.39 711-2) BASO x10^3 (test code 0.09 10*3/uL 0.01-0.07 H = 704-7) Lab Interpretation Abnormal (test code = 40917-8) [facility] Metabolic Panel (NA, K, CL, CO2, Glucose, BUN, Creatinine, CA)2020-04-12 10:56:00 Test Item Value Reference Range Interpretation Comments NA (test code = 135 mmol/L 135-145 6491362164) K (test code = 4.1 mmol/L 3.5-5 7113235104) CL (test code = 105 mmol/L 98-108 9310040419) CO2 TOTAL (test code = 28 mmol/L 23-31 6290953504) AGAP (test code = 2-16 2758619711) BUN (test code = 11 mg/dL 7-23 0044007971) GLUCOSE (test code = 95 mg/dL 70-110 1021430438) CREATININE (test code = 0.57 mg/dL 0.5-1.04 2709295492) CALCIUM (test code = 7.9 mg/dL 8.6-10.6 L 3956688787) eGFR Calculation mL/min/1.73m2 (Non-) (test code = 1545147189) eGFR Calculation mL/min/1.73m2 () (test code = 4248871623) PAULA (test code = PAULA) Association of [...] tests). Lab Interpretation Abnormal (test code = 58042-6) [facility] with [id number] 10:31:00 Test Item Value Reference Range Interpretation Comments WBC (test code = See_Comment [Automated 6690-2) message] The sy stem which generated this result transmitted reference range : 4.30 - 11.10 10*3/?L. The reference range was not used to interpret this result as normal/abnormal . RBC (test code = See_Comment L [Automated 789-8) message] The sy stem which [...] RDW-SD (test code = 44.9 fL 39-49.9 49835-0) RDW-CV (test code = 13.2 % 12-15.5 788-0) PLT (test code = See_Comment [Automated 777-3) message] The sy stem which generated this result transmitted reference range : 166 - 358 10*3/ ?L. The reference r micah was not used to interpret this result as normal/abnormal . MPV (test code = 9.8 fL 9.5-12.9 63875-2) NRBC/100 WBC (test See_Comment [Automat ed code = 1350036926) message] The system which generated this result transmitted reference range : 0.0 - 10.0 /100 WBCs. The refer ence range was not u sed to interpret th is result as normal/abnormal . NRBC x10^3 (test code <0.01 See_Comment [Auto mated = 4302731796) message] The s ystem which generated this result transmitted reference range : 10*3/?L. The reference range was not used to interpret this result as normal/abnormal . GRAN MAT (NEUT) % 47.2 % (test code = 770-8) IMM GRAN % (test code 0.30 % = 3035386281) LYMPH % (test code = 40.7 % 736-9) MONO % (test code = 8.4 % 5905-5) EOS % (test code = 2.5 % 713-8) BASO % (test code = 0.9 % 706-2) GRAN MAT x10^3(ANC) 3.15 10*3/uL 1.88-7.09 (test code = 9430166065) IMM GRAN x10^3 (test <0.03 0-0.06 code = 7882519605) LYMPH x10^3 (test code 2.72 10*3/uL 1.32-3.29 = 731-0) MONO x10^3 (test code 0.56 10*3/uL 0.33-0.92 = 742-7) EOS x10^3 (test code = 0.17 10*3/uL 0.03-0.39 711-2) BASO x10^3 (test code 0.06 10*3/uL 0.01-0.07 = 704-7) Lab Interpretation Abnormal (test code = 56735-0) [facility] IrvingXR FOREARM 2 VW [id number] 21:32:56 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 [...] with no effusionidentified.IMPRESSIONElbow joint osteoarthrosis.No acute fractures. [facility] IrvingXR HAND 3+ VW [id number] 21:31:56 No fracture or dislocation identified.EXAM: XR [...] spaces are preserved.IMPRESSIONNo fracture or dislocation identified. [facility] IrvingXR WRIST 3+ VW [id number] 21:30:19 No acute bony abnormality is present. EXAM: XR WRIST 3+ VW LEFT HISTORY: trauma ttp proximal to wrist COMPARISON: None FINDINGS: Imaging of the wrist demonstrates maintenance of alignment. Joint spacesare preserved. The soft tissues are within normal limits. [facility], [facility] - 04/11/2020 4:31 PM CDTEXAM:XR WRIST 3+ VW LEFTHISTORY:trauma ttp proximal to wrist COMPARISON:NoneFINDINGS: Imaging of the wrist demonstrates maintenance of alignment. Joint spacesare preserved. The soft tissues are within normal limits.IMPRESSIONNo acute bony abnormality is present.[facility] IrvingXR FOOT 3+ VW LEFT 2020-04-11 15:00:43 No [...] ankle mortise is anatomic. Minimal forefoot swelling. [facility], Radiant Results [facility] User - 04/11/2020 10:01 AM CDTEXAM: XR [...] reviewed this study and agree with the abovereport.[facility] IrvingXR ANKLE 3+ VW [id number] 15:00:43 No acute bony abnormality. Preliminary Report [...] reviewed this study and agree with the abovereport.[facility] IrvingXR TIBIA FIBULA 2 VW [id number] 15:00:43 No acute bony abnormality. Preliminary Report [...] acute bony abnormality.Preliminary Report Dictated by Resident: Chaka Gutierrez, Bijan Vasquez MD., have reviewed this study and agree with the abovereport.[facility] IrvingCT TRAUMA THORAX W [id number] 14:32:46 Wedge compression deformity of T12, discussed [...] is identified. No pelvic fracture is identified. [facility], Radiant Results [employer] User - 04/11/2020 9:33 [...] reviewed this study and agree with the abovereport.[facility] IrvingCT TRAUMA ABDOMEN PELVIS W [id number] 14:32:46 Wedge compression deformity of T12, discussed [...] in the chest.Preliminary Report Dictated by Resident: Chaka Gutierrez, Luis E Terrell MD., have reviewed this study and agree with the abovereport.[facility] IrvingCT TRAUMA HEAD WO [id number] 13:39:41Addendum by Macarena Paredes MD on 04/11/2020 [...] region. Preliminary ReportDictated by Resident: Macarena Crespo ?MD. Reggie, have reviewed this study and agree with [...] reviewed this study and agree with theabove report.[facility] IrvingCT TRAUMA CERVICAL SPINE WO [id number] 13:39:41Addendum by Macarena Paredes MD on 04/11/2020 9:20 AM* * * * * * * * ADDENDUM: * * * * * * * *Findings regarding T12 inferior endplate deformity were discussed with Dr.Lambreton at 0908 on 04/11/2020. Preliminary Report Dictated [...] reviewed this study and agree with theabove report.[facility] IrvingCT TRAUMA THORACIC SPINE WO [id number] 13:39:41Addendum by Macarena Paredes MD on 04/11/2020 [...] or extra axial fluid collection isappreciated. The ltot white matter differentiation is unremarkable. The ventricles, [...] reviewed this study and agree with theabove report.[facility] IrvingCT TRAUMA LUMBAR SPINE WO [id number] 13:39:41Addendum by Macarena Paredes MD on 04/11/2020 [...] reviewed this study and agree with theabove report.[facility]Type [facility] Screen - The Type and Screen expires at midnight on the 3rd day after it was drawn. A current Type and Screen is required when RBCs are requested. For all other blood products, a Type and Screen performed during the current hospitalizati...2020-04-11 13:14:02 Test Item Value Reference Range Interpretation Comments ABO & RH (test code A POSITIVE Performe d at [facility] = 20) Laboratory Serv [facility] Blood [facility] [facility] [place] [address]Xqsp Free: [phone] A No. [id number] IAT (test code = Negative Performed a t [facility] 1185) Laboratory Serv [facility] Blood [facility] [facility] [place] [address]Lmas Free: [phone] A No. [id number] [facility] IrvingBaour [facility] Metabolic Panel (NA, K, CL, CO2, GLUCOSE, BUN, CREATININE, CA)2020-04-11 12:45:00 Test Item Value Reference Range Interpretation Comments NA (test code = 136 mmol/L 135-145 9375186725) K (test code = 4.7 mmol/L 3.5-5 Slight hemoly sis 0571595165) CL (test code = 102 mmol/L 98-108 1872036934) CO2 TOTAL (test 25 mmol/L 23-31 code = 5028870541) AGAP (test code = 2-16 1890657340) BUN (test code = 14 mg/dL 7-23 Slight hemo lysis 5500042168) GLUCOSE (test code 99 mg/dL 70-110 = 2786600584) CREATININE (test 0.85 mg/dL 0.5-1.04 code = 2486003988) CALCIUM (test code 9.0 mg/dL 8.6-10.6 = 1583357381) eGFR Calculation mL/min/1.73m2 (Non-) (test code = 5788463647) eGFR Calculation mL/min/1.73m2 () (test code = 6837988605) PAULA (test code = Association of PAULA) [...] or urine or abnormalities in imaging tests). [facility] IrvingProthrombin Time / [id number] 12:41:00 Test Item Value Reference Range Interpretation Comments PROTIME PATIENT (test See_Comment [Auto mated message] code = 5964-2) The system [employer] generated this result transmitted ref erence range: 10.1 - 1 2.6 Seconds. The re ference range was not u sed to interpret this result as normal/abnor mal. INR (test code = 6301-6) Nor mal INR <1.1; Warfarin Therap eutic range 2.0 to 3. 0 or 2.5 to 3.5, dep ending upon the indica tions. Lab Interpretation (test Normal code = 97985-8) [facility] IrvingaPTT2020-10-17 12:41:00 Test Item Value Reference Range Interpretation Comments APTT Patient (test code See_Comment L [Au tomated message] = 3173-2) The system [employer] generated this result transmitted ref erence range: 26 - 36 Seconds. The reference range was not used to int erpret this result as normal/abnormal . Lab Interpretation (test Abnormal code = 72258-0) [facility] IrvingProfile / [id number] 12:31:00 Test Item Value Reference Range Interpretation Comments WBC (test code = 6690-2) See_Comment H [A utomated message] The system [employer] generated this result transmit bhaskar reference range : 4.30 - 11.10 10*3/?L. The reference range was not used to interpret this result as normal/abnormal . RBC (test code = 789-8) See_Comment [Au tomated message] The system [employer] generated this result transmit bhaskar reference range [...] 777-3) See_Comment [Au tomated message] The system [employer] generated this result transmit bhaskar reference range : 166 - 358 10*3/?L. The reference range was not used to interpret this result as normal/abnormal . MPV (test code = 10.0 fL 9.5-12.9 14438-4) RDW-CV (test code = 12.9 % 12-15.5 788-0) RDW-SD (test code = 43.6 fL 39-49.9 05554-0) NRBC x10^3 (test code = <0.01 See_Comment [Au tomated message] 4777102463) The system [employer] generated this result transmit bhaskar reference range : 10*3/?L. The reference range was not used to interpret this result as normal/abnormal . NRBC/100 WBC (test code See_Comment [Au tomated message] = 9964389068) The system [facility] generated this result transmit bhaskar reference range : 0.0 - 10.0 /100 WBC s. The reference r micah was not used to interpret this result as normal/abnormal . IPF % (test code = 7135334623) Lab Interpretation (test Abnormal code = 16353-6) [facility] IrvingTROPONIN [id number] 02:32:00 Test Item Value Reference Range Interpretation Comments TROPONIN I (test 0.013 ng/mL See_Comment [Automated code = 9382235751) message] The system which generated this result [...] ? Lab Interpretation Normal (test code = 22687-5) [facility] / [facility] - DRUG SCREEN [id number] 05:48:00 Test Item Value Reference Range Interpretation Comments BENZO U (test code = Presumptive Positive Negative A 2456263575) ANN U (test code = Negative Negative 1365958494) AMPHET (test code = Presumptive Positive Negative A 8266134570) THC (test code = Negative Negative 3383302041) METHADONE (test code = Negative Negative 0861681400) Meth U (test code = Presumptive Positive Negative A 5277142080) OPIATES (test code = Negative Negative 2579460403) Cocaine Metabolite (test Negative Negative code = 6379600950) PROPOXY (test code = Negative Negative 1317867294) Tric U (test code = Negative Negative 4074134093) PCP (test code = Negative Negative 8047147555) OXYCOD (test code = Negative Negative 5660940606) PAULA (test code = PAULA) Urine Drug [...] testing). Lab Interpretation (test Abnormal code = 94835-4) [facility] IrvingXR CHEST 1 [id number] 04:51:01Impression: No acute cardiopulmonary changes. Preliminary Report Dictated by Resident: Sebastian Allred MD., have reviewed this study and agree withthe above report.XR CHEST1 VW History: Chest pain Comparison: XR CHEST 1 VW, 03/06/2019. Findings: The lungs are clear. No focal consolidation is present. No pleural effusionor pneumothorax is identified. The heart is normal in size. The osseous structures are unremarkable. [facility], Radiant Results Inft User - 04/09/2020 11:52PM CDTXR CHEST 1 VWHistory: Chest pain Comparison: XR CHEST 1 VW, 03/06/2019.Findings:The lungs are clear. No focal consolidation is present. No pleural effusionor pneumothorax is identified. The heart is normal in size. The osseous structures are unremarkable.IMPRESSIONImpression:No acute cardiopulmonary changes.Preliminary Report Dictated by Resident: Luis E Rose, Sebastian Schwab MD.,have reviewed this study and agree withthe above report.[facility] IrvingTROPONIN [id number] 04:48:00 Test Item Value Reference Range Interpretation Comments TROPONIN I (test 0.018 ng/mL See_Comment [Automated code = 0788867850) message] The system which generated this result [...] ? Lab Interpretation Normal (test code = 12278-4) [facility] IrvingN-TERMINAL [id number] 04:45:00 Test Item Value Reference Range Interpretation Comments NT-proBNP (test code 309 pg/mL See_Comment H [Autom ated = 7064779568) message] The system which generated this result transmitted reference range : <=125. The reference range was not used to interpret this result as normal/abnormal . PAULA (test code = PAULA) Biotin has been reported to cause a negative bias, interpret results relative to patient's use of biotin. Lab Interpretation Abnormal (test code = 44285-4) [facility] IrvingD-[id number] 04:43:00 Test Item Value Reference Interpretation Comments Range D-DIMER (test code = <0.27 See_Comment [Autom ated 7982744894) message] The system which generated this result [...] diagnosis. Lab Interpretation Normal (test code = 92795-4) [facility] IrvingCOVID-19 (ID NOW RAPID TESTING)2020-04-10 04:42:00 Test Item Value Reference Range Interpretation Comments SARS-CoV-2 Rapid ID NOW Not Detected Not Detected (test code = 18868-9) PAULA (test code = PAULA) ID NOW COVID-19 Assay is an isothermal nucleic acid amplification test intended for the qualitative detection of nucleic acid from SARS-CoV-2 viral RNA in nasopharyngeal ([employer]) specimens. It is used under Emergency Use [...] indicated. Lab Interpretation Normal (test code = 13005-3) [facility] IrvingMAGNESIUM2020-10-16 04:37:00 Test Item Value Reference Range Interpretation Comments MAGNESIUM (test code = 5320491185) 1.7 mg/dL 1.7-2.4 Lab Interpretation (test code = Normal 50172-9) [facility] IrvingCOMP. METABOLIC PANEL (36812)2020-04-10 04:36:00 Test Item Value Reference Range Interpretation Comments NA (test code = 135 mmol/L 135-145 0598009529) K (test code = 3.4 mmol/L 3.5-5 L 2505412044) CL (test code = 99 mmol/L 98-108 4239494756) CO2 TOTAL (test code = 24 mmol/L 23-31 2097347581) AGAP (test code = 2-16 2014142124) BUN (test code = 8 mg/dL 7-23 9077269712) GLUCOSE (test code = 119 mg/dL 70-110 H 1233450529) CREATININE (test code = 0.71 mg/dL 0.5-1.04 1825653319) TOTAL BILI (test code = 0.5 mg/dL 0.1-1.9 8387219618) CALCIUM (test code = 10.9 mg/dL 8.6-10.6 H 6751387461) T PROTEIN (test code = 8.1 g/dL 6.3-8.2 7687266697) ALBUMIN (test code = 4.4 g/dL 3.5-5 8891435098) ALK PHOS (test code = 85 U/L 34-122 3564888802) ALTv (test code = 51 U/L 5-35 H 1742-6) AST(SGOT) (test code = 42 U/L 13-40 H 4174379124) eGFR Calculation mL/min/1.73m2 (Non-) (test code = 6149942635) eGFR Calculation mL/min/1.73m2 () (test code = 9837987508) PAULA (test code = PAULA) Association of [...] tests). Lab Interpretation Abnormal (test code = 62594-1) [facility] IrvingLIPASE2020-10-16 04:36:00 Test Item Value Reference Range Interpretation Comments LIPASE (test code = 0771097515) 193 U/L 0-220 Lab Interpretation (test code = Normal 67262-6) [facility] WITH [id number] 04:22:00 Test Item Value Reference Range Interpretation Comments WBC (test code = See_Comment [Automated 2604-2) message] The sy stem which generated this result transmitted reference range : 4.30 - 11.10 10*3/?L. The reference range was not used to interpret this result as normal/abnormal . RBC (test code = See_Comment [Automated 632-0) message] The sy stem which generated this [...] RDW-SD (test code = 41.7 fL 39-49.9 74313-0) RDW-CV (test code = 12.5 % 12-15.5 788-0) PLT (test code = See_Comment [Automated 777-3) message] The sy stem which generated this result transmitted reference range : 166 - 358 10*3/ ?L. The reference r micah was not used to interpret this result as normal/abnormal . MPV (test code = 9.5 fL 9.5-12.9 95939-6) NRBC/100 WBC (test See_Comment [Automat ed code = 5758840860) message] The system which generated this result transmitted reference range : 0.0 - 10.0 /100 WBCs. The refer ence range was not u sed to interpret th is result as normal/abnormal . NRBC x10^3 (test code <0.01 See_Comment [Auto mated = 1881983920) message] The s ystem which generated this result transmitted reference range : 10*3/?L. The reference range was not used to interpret this result as normal/abnormal . GRAN MAT (NEUT) % 67.8 % (test code = 770-8) IMM GRAN % (test code 0.50 % = 4983974871) LYMPH % (test code = 24.0 % 736-9) MONO % (test code = 6.6 % 5905-5) EOS % (test code = 0.6 % 713-8) BASO % (test code = 0.5 % 706-2) GRAN MAT x10^3(ANC) 7.32 10*3/uL 1.88-7.09 H (test code = 5643856665) IMM GRAN x10^3 (test 0.05 10*3/uL 0-0.06 code = 5905383707) LYMPH x10^3 (test code 2.58 10*3/uL 1.32-3.29 = 731-0) MONO x10^3 (test code 0.71 10*3/uL 0.33-0.92 = 742-7) EOS x10^3 (test code = 0.06 10*3/uL 0.03-0.39 711-2) BASO x10^3 (test code 0.05 10*3/uL 0.01-0.07 = 704-7) Lab Interpretation Abnormal (test code = 67129-5) [facility] [place], [place]. METABOLIC PANEL (05441)2020-02-25 19:07:00 Test Item Value Reference Range Interpretation Comments NA (test code = 135 mmol/L 135-145 0597881144) K (test code = 3.7 mmol/L 3.5-5 7845254896) CL (test code = 106 mmol/L 98-108 5888703132) CO2 TOTAL (test code = 21 mmol/L 23-31 L 5468006079) AGAP (test code = 2-16 3386592430) BUN (test code = 9 mg/dL 7-23 1503647029) GLUCOSE (test code = 116 mg/dL 70-110 H 6695755190) CREATININE (test code = 0.57 mg/dL 0.5-1.04 2664802271) TOTAL BILI (test code = 0.7 mg/dL 0.1-1.2 8058000838) CALCIUM (test code = 9.4 mg/dL 8.6-10.6 0881203222) T PROTEIN (test code = 8.2 g/dL 6.3-8.2 5178398904) ALBUMIN (test code = 4.6 g/dL 3.5-5 4410327555) ALK PHOS (test code = 116 U/L 34-122 9264835366) ALTv (test code = 67 U/L 5-35 H 1742-6) AST(SGOT) (test code = 70 U/L 13-40 H 2491308653) eGFR Calculation mL/min/1.73m2 (Non-) (test code = 2300710280) eGFR Calculation mL/min/1.73m2 () (test code = 9174195511) PAULA (test code = PAULA) Association of [...] tests). Lab Interpretation Abnormal (test code = 50055-8) [facility] WITH [id number] 18:51:00 Test Item Value Reference Range Interpretation Comments WBC (test code = See_Comment [Automated message] 6690-2) The system [employer] generated this result transmitted ref erence range: 4.30 - 1 1.10 10*3/?L. The re ference range was not u sed to interpret this result as normal/abnor mal. RBC (test code = See_Comment [Automated message] 789-8) The system [employer] generated this result transmitted ref erence range: [...] RDW-SD (test code 41.6 fL 39-49.9 = 56428-0) RDW-CV (test code 12.6 % 12-15.5 = 788-0) PLT (test code = See_Comment [Automated message] 777-3) The system whic h generated this result transmitted ref erence range: 166 - 35 8 10*3/?L. The re ference range was not u sed to interpret this result as normal/abnor mal. MPV (test code = 10.0 fL 9.5-12.9 30575-5) NRBC/100 WBC (test See_Comment [Automat ed message] code = 7178323851) The syste m which generated this result transmitted ref erence range: 0.0 - 10 .0 /100 WBCs. The refer ence range was not u sed to interpret this result as normal/abnor mal. NRBC x10^3 (test <0.01 See_Comment [Automated message] code = 9927923373) The syste m which generated this result transmitted ref erence range: 10*3/?L. The reference range was not used to interpr et this result as normal/abnormal . GRAN MAT (NEUT) % 63.1 % (test code = 770-8) IMM GRAN % (test 0.40 % code = 7641952015) LYMPH % (test code 27.0 % = 736-9) MONO % (test code 8.0 % = 5905-5) EOS % (test code = 0.6 % 713-8) BASO % (test code 0.9 % = 706-2) GRAN MAT 5.02 10*3/uL 1.88-7.09 x10^3(ANC) (test code = 9942073287) IMM GRAN x10^3 0.03 10*3/uL 0-0.06 (test code = 9815602736) LYMPH x10^3 (test 2.15 10*3/uL 1.32-3.29 code = 731-0) MONO x10^3 (test 0.64 10*3/uL 0.33-0.92 code = 742-7) EOS x10^3 (test 0.05 10*3/uL 0.03-0.39 code = 711-2) BASO x10^3 (test 0.07 10*3/uL 0.01-0.07 code = 704-7) [facility] IrvingCT [facility]BDOM[facility]/PELVIS W/[id number] 18:17:32NPO 4 hours. Do not withhold medsProcedure: [...] PMDictated By: MIGUEL GILMANDate: 08/22/201918:11STAT LAB , [id number] 17:09:00 Test Item Value Reference Range Interpretation Comments (Urine) (test code = Negative PREGU) STAT LAB URINALYSIS WITHOUT [id number] 17:08:00 Test Item Value Reference Range Interpretation Comments Color (test code = UCOLR) Light yellow Lt. Yellow A Clarity (test code = UCLAR) Clear Glucose (test code = UGLUC) Negative Negative N Bilirubin (test code = UBILI) Negative Negative N Ketones (test code = UKET) Negative Negative N Specific Wiggins (test code = 1.015 1.005-1.030 A USPGR) Blood (test code = UBLD) Negative Negative N PH (test code = UPH) 5.5 4.5-8.0 A Protein (test code = UPROT) Negative Negative N Urobilinogen (test code = U 0.2 >0.2 N UROB) Nitrite (test code = UNITR) Negative Negative N Leukocyte Esterase (test code = Negative Negative N ULEUK) [id number] 16:39:00 Test Item Value Reference Range Interpretation [...] 4 - SerumAlbu min)] EGFR if >60 Togolese (test code mL/min/1.73m\\ = EGFRAA) S\\2 EGFR if Non- >60 Estimate d Glomerular Togolese (test code mL/min/1.73m\\ Filtrat ion Rate (eGFR) [...] and management of c hronic kidney failure. [id number] 16:39:00 Test Item Value Reference Range Interpretation Comments Lipase (test code = LIPA) 178 U/L 73-393 STAT LAB CBC WITH AUTO [id number] 16:16:00 Test Item Value Reference Range Interpretation [...] 0.4 % 0.0-0.4 XR ELBOW MIN 3 [id number] 17:59:10Procedure: XR ELBOW MIN 3 VIEWSOrder Date: 08/19/2019 2:54 PMOrdering Provider: FIONA Vincentinical Indication: [id number]: Pain of left elbow jointComparison: NoneFINDINGS:There is no fracture or dislocation.Osteoarthrosis of the left elbow, particularly at the radial articular surface.No lytic or sclerotic lesions.No joint effusion.No subcutaneous gas.IMPRESSION:1. No fracture or dislocation.2. Osteoarthrosis of the left elbow.3. No other significant findings.This final report was e lectronically signed by Dr Emile Jackson MD 08/19/20195:52 PMDictated By: EMILE JACKSON.Date: 08/19/2019 17:52CT ABDOMEN PELVIS W [id number] 01:59:29 No acute intra-abdominal process. 3.2 cm [...] ovarian cyst. Preliminary Report Dictated by Resident: Wil Wadsworth MD., have reviewed this study and agree with the abovereport. [facility] IrvingPOCT Test, [id number] 00:29:00 Test Item Value Reference Range Interpretation Comments POCT PREG (test code = 1605) NEGATIVE Lab Interpretation (test code = Normal 35546-1) [facility] IrvingUrinalysis2020-01-17 23:44:00 Test Item Value Reference Range Interpretation Comments APPEARANCE (test code = Clear Clear 9661076464) COLOR (test code = Straw Yellow A 5691683402) PH (test code = 4.8-8.0 3064341663) SP GRAVITY (test code = 1.003-1.030 2224453867) GLU U QUAL (test code = Normal Normal 6261988212) BLOOD (test code = Negative Negative 7168550956) KETONES (test code = Negative Negative 9765721634) PROTEIN (test code = Negative Negative 2887-8) UROBILIN (test code = Normal Normal 5621233103) BILIRUBIN (test code = Negative Negative 5363291407) NITRITE (test code = Negative Negative 2088108467) LEUK JONATHON (test code = Negative Negative 5330282918) RBC/HPF (test code = See_Comment [Autom ated message] 4110540887) The system [employer] generated this result transmitted ref erence range: 0 - 3 HP F. The reference range was not used to int erpret this result as normal/abnormal . WBC/HPF (test code = See_Comment [Autom ated message] 5539497185) The system [employer] generated this result transmitted ref erence range: 0 - 5 HP F. The reference range was not used to int erpret this result as normal/abnormal . BACTERIA (test code = Negative Negative 0842999123) SQ EPITH (test code = <1 See_Comment [Auto mated message] 1733235456) The system [employer] generated this result transmitted ref erence range: <=2 HPF. The reference range was not used to int erpret this result as normal/abnormal . Lab Interpretation (test Abnormal code = 17951-9) [facility] IrvingCOMP. METABOLIC PANEL (63759)2019-07-12 23:30:00 Test Item Value Reference Range Interpretation Comments NA (test code = 141 mmol/L 135-145 3711600713) K (test code = 3.5 mmol/L 3.5-5 3832877679) CL (test code = 105 mmol/L 98-108 5462079401) CO2 TOTAL (test code = 27 mmol/L 23-31 9534356444) AGAP (test code = 2-16 5012329955) BUN (test code = 9 mg/dL 7-23 9075805154) GLUCOSE (test code = 80 mg/dL 70-110 2171962700) CREATININE (test code = 0.50 mg/dL 0.5-1.04 5908059532) TOTAL BILI (test code = 0.4 mg/dL 0.1-1.7 0298189131) CALCIUM (test code = 8.7 mg/dL 8.6-10.6 2252102584) T PROTEIN (test code = 7.4 g/dL 6.3-8.2 6971941686) ALBUMIN (test code = 4.2 g/dL 3.5-5 7056558617) ALK PHOS (test code = 90 U/L 34-122 8439647386) ALTv (test code = 157 U/L 5-35 H 1742-6) AST(SGOT) (test code = 151 U/L 13-40 H 8110492103) eGFR Calculation mL/min/1.73m2 (Non-) (test code = 8133416443) eGFR Calculation mL/min/1.73m2 () (test code = 7539057746) PAULA (test code = PAULA) Association of [...] tests). Lab Interpretation Abnormal (test code = 79374-1) [facility] IrvingLipase [id number] 23:30:00 Test Item Value Reference Range Interpretation Comments LIPASE (test code = 7201920051) 86 U/L 0-220 Lab Interpretation (test code = Normal 92938-3) [facility] IrvingCBC WITH [id number] 23:16:00 Test Item Value Reference Range Interpretation Comments WBC (test code = See_Comment [Automated 8690-2) message] The sy stem which generated this result transmitted reference range : 4.30 - 11.10 10*3/?L. The reference range was not used to interpret this result as normal/abnormal . RBC (test code = See_Comment [Automated 299-8) message] The sy stem which generated this [...] RDW-SD (test code = 45.1 fL 39-49.9 30720-5) RDW-CV (test code = 13.3 % 12-15.5 788-0) PLT (test code = See_Comment [Automated 437-3) message] The sy stem which generated this result transmitted reference range : 166 - 358 10*3/ ?L. The reference r micah was not used to interpret this result as normal/abnormal . MPV (test code = 9.3 fL 9.5-12.9 L 08691-1) NRBC/100 WBC (test See_Comment [Automat ed code = 6435011095) message] The system which generated this result transmitted reference range : 0.0 - 10.0 /100 WBCs. The refer ence range was not u sed to interpret th is result as normal/abnormal . NRBC x10^3 (test code <0.01 See_Comment [Auto mated = 2334277106) message] The s ystem which generated this result transmitted reference range : 10*3/?L. The reference range was not used to interpret this result as normal/abnormal . GRAN MAT (NEUT) % 52.8 % (test code = 770-8) IMM GRAN % (test code 0.20 % = 0226310841) LYMPH % (test code = 36.2 % 736-9) MONO % (test code = 7.3 % 5905-5) EOS % (test code = 2.4 % 713-8) BASO % (test code = 1.1 % 706-2) GRAN MAT x10^3(ANC) 2.47 10*3/uL 1.88-7.09 (test code = 2117627913) IMM GRAN x10^3 (test <0.03 0-0.06 code = 5647987404) LYMPH x10^3 (test code 1.69 10*3/uL 1.32-3.29 = 731-0) MONO x10^3 (test code 0.34 10*3/uL 0.33-0.92 = 742-7) EOS x10^3 (test code = 0.11 10*3/uL 0.03-0.39 711-2) BASO x10^3 (test code 0.05 10*3/uL 0.01-0.07 = 704-7) Lab Interpretation Abnormal (test code = 95406-8) [facility] IrvingXR CHEST 1 [id number] 16:58:56* * * * * * * * ORIGINAL REPORT * * * * * * * *EXAM: XR CHEST 1 VW HISTORY: Hx of cardiomegaly and angina, recent ED visit for CP, states thather heart is? COMPARISON: None. FINDINGS: The heart and great vessels are normal and the lungs are well expanded andclear.[facility], Radiant Results Inft User - 03/06/2019 11:59 AM CDT* * * * * * * * ORIGINAL REPORT * * * * * * * *EXAM: XR CHEST 1 VWHISTORY: Hx of cardiomegaly and angina, recent ED visit for CP, states thather heart is COMPARISON: None.FINDINGS:The heart and great vessels are normal and the lungs are well expanded andclear.[facility]
[2021-09-23] MEDS ORDERED: FAMOTIDINE 20 MG/2 ML VIAL IV ONE (23:16)
[2021-09-23] MEDS ORDERED: ASPIRIN 81 MG CHEWABLE TABLET ONE (23:16)
[2021-09-23] MEDS ORDERED: NA CHLORIDE 0.9% 500 ML ONE (23:16)
[2021-09-23 23:45] LABS: Absolute Lymphocytes (CBC) 1.9 K/uL (0.7-4.9); Hematocrit 40.3 % (36.0-45.0); MPV 8.4 fL (7.6-11.3); RBC Red Blood Cell Count 4.53 M/uL (3.86-4.86)
[2021-09-23 23:55] LABS: Protime INR 1.02
[2021-09-23 23:59] LABS: ALT/SGPT 24 U/L (12-78); AST/SGOT 16 U/L (15-37); Albumin 3.9 g/dL (3.4-5.0); Alkaline Phosphatase 71 U/L (45-117); BUN Blood Urea Nitrogen 11 mg/dL (7-18); Bicarbonate 21 mmol/L (21-32); Bilirubin Total 0.2 mg/dL (0.2-1.0); Glucose Level 96 mg/dL (74-106); Lipase 79 U/L (73-393); Magnesium 2.2 mg/dL (1.8-2.4); NT PRO-BNP 211 pg/mL (<125); Potassium 3.4 mmol/L (3.5-5.1); Protein, Total 7.9 g/dL (6.4-8.2); Sodium Level 139 mmol/L (136-145); Troponin High Sensitivity 13.5 pg/mL (<58.9)
[2021-09-24 00:03] LABS: Bilirubin Direct < 0.1 mg/dL (0-0.2)
[2021-09-24] MEDS ORDERED: METOPROLOL TAR 50 MG TAB ONE ×2 (00:49→09:25)
[2021-09-24] MEDS ORDERED: MORPHINE 4 MG/ML SYR ONE (00:49)
[2021-09-24] MEDS ORDERED: CLOPIDOGREL 75 MG TABLET ONE (00:49)
[2021-09-24] MEDS ORDERED: NA CHLORIDE 0.9% 1,000 ML ONE ×2 (00:49→12:58)
[2021-09-24] MEDS ORDERED: ONDANSETRON 4 MG/2 ML VIAL ONE (00:49)
--- NOTE | 2021-09-24 01:19 | P.HP ---
Certification for Inpatient Patient admitted to: Inpatient With expected LOS: >2 Midnights Patient will require the following post-hospital care: None Practitioner: I am a practitioner with admitting privileges, knowledge of patient current condition, hospital course, and medical plan of care. Services: Services provided to patient in accordance with Admission requirements found in Title 42 Section 412.3 of the Code of Federal Regulations Patient History Date of Service: 09/24/21 Reason for admission: Unstable angina History of Present Illness: 41-year-old female with history of seizure disorder, hypothyroidism, hyperlipidemia, hypertension, angina presents emergency department for severe chest pain. Patient reports she is sitting in her car when she had sudden onset severe chest pain radiating between her shoulders to her back associated with significant diaphoresis. Patient presented to the emergency department tachycardic and hypertensive initial EKG was sinus rhythm with PACs. Her labs were significant for mildly elevated BNP 211 initial troponin 13.5 high- sensitivity CBC unremarkable chest x-ray unremarkable CT angio to rule out dissection/PE performed which was negative for aortic dissection or pulmonary embolism. Patient still has significant pain ED provider wishes to admit to the ICU for unstable angina, patient was started on heparin drip in the emergency department. Allergies codeine Allergy (Verified 04/03/20 10:43) Itching/Hives/Rash Home Medications: Alprazolam [Xanax] 1 tab PO DAILY 04/03/20 ALPRAZolam [Xanax] 0.5 mg PO TID PRN #30 tab 03/17/21 Aspirin [Aspirin EC 81 MG] 81 mg PO DAILY #30 tablet.dr 03/17/21 Atorvastatin Calcium [Lipitor] 40 mg PO DAILY #30 tablet 03/17/21 Gabapentin 300 mg PO Q12H #60 capsule 03/17/21 Hydrocodone 5/APAP 325 [[place] 5/325] 1 tab PO Q6H PRN #30 tab 03/17/21 Hydrocodone/Acetaminophen [Vicodin Hp 10-325 mg Tablet] 1 tab PO BID #30 03/17/21 Levothyroxine [Synthroid*] 1 tab PO DAILY #30 03/17/21 Metoprolol Tartrate [Lopressor*] 50 mg PO BID #60 tab 03/17/21 Nitroglycerin [Nitrostat] 1 tab PO SEECOM PRN #100 03/17/21 carBAMazepine [Tegretol] 1 tab PO BID #60 03/17/21 carBAMazepine [Tegretol] 200 mg PO BID #60 tab 03/17/21 hydroCHLOROthiazide [Hydrochlorothiazide*] 12.5 mg PO DAILY #30 cap 03/17/21 - Past Medical/Surgical History -: Hypertension -: Hypothyroidism -: Hyperlipidemia -: seizures -: c section -: tubal ligation Psychosocial/ Personal History: Lives with family - Family History Father -: Heart disease Notes: ME x 2 - Social History Smoking Status: Current every day smoker Counseled patient to stop smoking for: less than 10 minutes Smoking therapy provided: Yes Alcohol use: No CD- Drugs: No Caffeine use: Yes Place of Residence: Home Review of Systems 10-point ROS is otherwise unremarkable Cardiovascular: Chest Pain, Other (Diaphoresis) Gastrointestinal: Nausea Physical Examination - Physical Exam General: Alert, In no apparent distress, Oriented x3 HEENT: Atraumatic, PERRLA, Mucous membr. moist/pink, EOMI, Sclerae nonicteric Neck: Supple, 2+ carotid pulse no bruit, No LAD, Without JVD or thyroid abnormality Respiratory: Clear to auscultation bilaterally, Normal air movement Cardiovascular: Regular rate/rhythm, Normal S1 S2 Gastrointestinal: Normal bowel sounds, No tenderness Musculoskeletal: No tenderness Integumentary: No rashes Neurological: Normal gait, Normal speech, Normal strength at 5/5 x4 extr, Normal tone, Normal affect Lymphatics: No axilla or inguinal lymphadenopathy - Studies Laboratory Data (last 24 hrs) 09/23/21 23:06: PT 11.2, INR 1.02 09/23/21 23:06: WBC 7.6, Hgb 13.5, Hct 40.3, Plt Count 275 09/23/21 23:06: Sodium 139, Potassium 3.4 L, BUN 11, Creatinine 0.60, Glucose 96, Magnesium 2.2, Total Bilirubin 0.2, AST 16, ALT 24, Alkaline Phosphatase 71, Lipase 79 09/23/21 22:26: PT Cancelled, INR Cancelled 09/23/21 22:26: WBC Cancelled, Hgb Cancelled, Hct Cancelled, Plt Count Cancelled 09/23/21 22:26: Sodium Cancelled, Potassium Cancelled, BUN Cancelled, Creatinine Cancelled, Glucose Cancelled, Magnesium Cancelled, Total Bilirubin Cancelled, AST Cancelled, ALT Cancelled, Alkaline Phosphatase Cancelled, Lipase Cancelled Assessment and Plan - Plan Assessment: Unstable angina Hypertension Hyperlipidemia Hypothyroidism Seizure disorder Plan: Unstable angina: Monitor on telemetry, trend troponins, cardiology consulted. N.p.o., continue heparin drip in addition to aspirin, statin, beta-melody as needed morphine/nitroglycerin. Patient has never had stress test or cardiac catheterization significant family history for heart disease. Appreciate further input from cardiology Hypertension: Continue metoprolol Hyperlipidemia: Continue atorvastatin get lipid panel Hypothyroidism: Continue levothyroxine will obtain thyroid panel Seizure disorder: Obtain and continue home meds. DVT PPX: Heparin drip Code status: Full Discharge Plan: Home Plan to discharge in: 48 Hours - Advance Directives Does patient have a Living Will: No Does patient have a Durable POA for Healthcare: No - Code Status/Comfort Care Code Status Assessed: Yes (Full code) Critical Care: No Time Spent Managing Pts Care (In Minutes): 55
[2021-09-24] MEDS ORDERED: HEPARIN/D5W 25,000 UNIT/500 ML BAG IV ONE (01:52)
[2021-09-24] MEDS ORDERED: HEPARIN 5000 UNIT/ML 1 ML VIAL ONE (01:52)
[2021-09-24] MEDS ORDERED: POTASSIUM 25 MEQ EFFERV TAB ONE (01:53)
[2021-09-24] MEDS ORDERED: NA CHLORIDE 0.9% 1,000 ML IV SCH (02:18)
[2021-09-24] MEDS ORDERED: MORPHINE 2 MG/ML SYR IV PRN (02:18)
[2021-09-24] MEDS ORDERED: ONDANSETRON 4 MG/2 ML VIAL IV PRN (02:18)
[2021-09-24] MEDS ORDERED: HEPARIN/D5W 25,000 UNIT/500 ML BAG IV SCH (02:18)
[2021-09-24] MEDS ORDERED: NITROGLYCERIN 0.4 MG/TAB SL PRN (02:18)
[2021-09-24 03:16] VITALS: BMI 29.9
[2021-09-24 03:47] LABS: Urine Appearance Clear (Clear); Urine Bilirubin Negative (Negative); Urine Blood Negative (Negative); Urine Color Yellow (Yellow); Urine Glucose Negative (Negative); Urine Protein Negative (Negative); Urine Specific Gravity 1.015 (1.005-1.030); Urine Urobilinogen 0.2 mg/dL (0.2-1.0)
--- NOTE | 2021-09-24 03:48 | ER ---
Nurse's Notes [facility] Name: Denise Wick Age: 41 yrs Sex: Female : 1980 Arrival Date: 09/23/2021 Time: 21:47 Bed 17 Private MD: Diagnosis: Chest pain, unspecified;Unstable angina;Essential (primary) hypertension;Hypokalemia Presentation: 09/23 21:56 Chief complaint: Patient states: "Im having severe chest pain and it spreads to my ab2 back. My hands are tingling and numb. 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 Coronavirus screen: Vaccine status: Patient reports being unvaccinated. Client denies travel out of the [place] in the last 14 days. At this time, the client does not indicate any symptoms associated with coronavirus-19. Ebola Screen: Patient negative for fever greater than or equal to 101.5 degrees Fahrenheit, and additional compatible Ebola Virus Disease symptoms Patient denies exposure to infectious person. Patient denies travel to an Ebola-affected area in the 21 days before illness onset. No symptoms or risks identified at this time. Initial Sepsis Screen: Does the patient meet any 2 criteria? No. Patient's initial sepsis screen is negative. Does the patient have a suspected source of infection? No. Patient's initial sepsis screen is negative. Risk Assessment: Do you want to hurt yourself or someone else? Patient reports no desire to harm self or others. Onset of symptoms is unknown. 21:56 Method Of Arrival: Ambulatory ab2 21:56 Acuity: CHRISTINA 3 ab2 Triage Assessment: 21:57 General: Appears in no apparent distress. uncomfortable, Behavior is cooperative, ab2 anxious. Pain: Complains of pain in chest Pain currently is 10 out of 10 on a pain scale. Cardiovascular: Reports chest pain, Heart tones S1 S2 present Patient's skin is warm and dry. Rhythm is sinus tachycardia. Respiratory: Airway is patent Respiratory effort is even, unlabored, Respiratory pattern is regular, symmetrical. 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 - Social history:: Smoking status: Patient reports the use of cigarette tobacco products, smokes one-half pack cigarettes per day. - Family history:: not pertinent. Screenin:30 Abuse screen: Denies threats or abuse. Denies injuries from another. Nutritional sm5 screening: No deficits noted. Tuberculosis screening: No symptoms or risk factors identified. Fall Risk None identified. Assessment: 23:30 General: Appears in no apparent distress. Behavior is cooperative. Pain: Complains of sm5 pain in chest Pain radiates to back Pain began 3 hours ago. Neuro: No deficits noted. Level of Consciousness is awake, alert, obeys commands, Oriented to person, place, time, situation. Neuro: Reports headache. Cardiovascular: Reports chest pain, Capillary refill < 3 seconds Patient's skin is warm and dry. 09/24 02:04 Reassessment: heparin bolus and heparin drip started. initial ptt 29.1. sm5 19:23 Reassessment: Patient states " I am just going to leave, they are going discharge me tw5 tomorrow anyways, I promise to follow up.". 19:25 Reassessment: Aubrie discharged patient. Patient told Aubrie Day time Charge " I promise, tw5 I promise I will follow up." Hospitalist notified that patient wishes to leave. . Vital Signs: 09/23 21:58 BP 164 / 104; Pulse 116; Resp 18; Temp 98.7(TE); Pulse Ox 100% on R/A; Weight 72.57 kg; ab2 Height 5 ft. 6 in. (167.64 cm); Pain 10/10; 09/24 00:19 BP 133 / 74; Pulse 81; Resp 19; Pulse Ox 100% on R/A; sm5 00:36 Weight 84.4 kg; sm5 00:37 BP 105 / 89; Pulse 76; Resp 19; Pulse Ox 100% on R/A; sm5 07:33 BP 118 / 69; Pulse 80; Resp 18; Pulse Ox 99% ; malloy 09:00 BP 90 / 47; Pulse 77; Resp 17; Pulse Ox 99% ; malloy 10:00 BP 102 / 65; Pulse 79; Resp 17; Pulse Ox 99% on R/A; malloy 11:00 BP 108 / 74; Pulse 71; Resp 17; Pulse Ox 98% ; malloy 12:00 BP 107 / 68; Pulse 75; Resp 16; Pulse Ox 98% on R/A; malloy 13:00 BP 102 / 72; Pulse 76; Resp 16; Pulse Ox 98% ; malloy 15:00 BP 100 / 72; Pulse 79; Resp 17; Pulse Ox 99% ; malloy 00:36 Body Mass Index 30.03 (84.40 kg, 167.64 cm) sm5 ED Course: 09/23 21:47 Patient arrived in ED. es 21:49 Paul Piedra MD is Private Physician. es 21:57 Triage completed. ab2 22:00 Arm band placed on right wrist. ab2 22:21 Bruno Ferrell MD is Attending Physician. johnny 22:29 Raiza Taylor RN is Primary Nurse. sm5 23:29 Inserted saline lock: 18 gauge in left upper arm, using aseptic technique. Blood sm5 collected. Patient maintains SpO2 saturation greater than 95% on room air. 23:30 Patient has correct armband on for positive identification. Placed in gown. Bed in low sm5 position. Side rails up X2. unit control worker on. Pulse ox on. NIBP on. 09/24 00:17 Gregg Obrien MD is Hospitalizing Provider. johnny 03:53 Angio Aorta For Dissection In Process Unspecified. EDMS 03:54 XRAY Chest (1 view) In Process Unspecified. EDMS 04:15 Ptt, Activated Sent. sm5 04:15 UDS Sent. sm5 11:31 No provider procedures requiring assistance completed. malloy Administered Medications: 09/23 23:27 Drug: Aspirin Chewable Tablet 324 mg Route: PO; sm5 09/24 07:09 Follow up: Response: No adverse reaction 09/23 23:27 Drug: Pepcid (famotidine) 20 mg Route: IVP; Site: left upper arm; sm5 09/24 07:09 Follow up: Response: No adverse reaction 09/23 23:27 Drug: NS 0.9% 500 ml Route: IV; Rate: bolus; Site: left upper arm; [facility] 09/24 07:09 Follow up: IV Status: Completed infusion malloy 01:22 Drug: Lopressor (metoprolol TARTRATE) 50 mg Route: PO; 5 01:22 Drug: morphine 4 mg Route: IVP; Site: left upper arm; 5 07:08 Follow up: Response: No adverse reaction malloy 01:22 Drug: Zofran (Ondansetron) 4 mg Route: IVP; Site: left upper arm; 5 07:08 Follow up: Response: No adverse reaction malloy 01:22 Drug: PlaVIX (clopidogrel) 300 mg Route: PO; 5 07:08 Follow up: Response: No adverse reaction malloy 02:00 Drug: Heparin (AK-Bolus No thrombolytic) - HEParin 60 units/kg {Co-Signature: al4 sm5 (Shekhar Peñaloza).} Route: IVP; Site: left upper arm; 02:03 Drug: Heparin (AK Drip) 12 units/kg/hr - (HEParin 95547 units, D5W 500 ml) 5 {Co-Signature: al4 (Shekhar Peñaloza).} Route: IV; Rate: calculated rate; Site: left upper arm; 02:05 Drug: Potassium Effervescent Tablet 25 mEq Route: PO; [facility] 07:07 Follow up: Response: No adverse reaction malloy 02:07 Not Given (Hemodynamic Parameters): Lopressor (metoprolol) 5 mg IVP every 5 minutes; 5 Hold for SBP < 100 or HR < 60. x3 03:04 Drug: NS 0.9% 1000 ml Route: IV; Rate: 125 ml/hr; Site: left upper arm; 5 Outcome: 00:18 Decision to Hospitalize by Provider. [facility] 19:29 Patient left the ED. tw5 Signatures: Dispatcher [employer] Bruno Hackett MD MD cha Salyer, Edna es Wood, Tiffany 5 Raiza Taylor RN RN 5 Oneida Molina RN RN ha Bleininger, Alexis ab2 Alexis Ledbetter al4 Corrections: (The following items were deleted from the chart) 09/23 22:00 21:56 Chief complaint: Patient states: "Im having severe chest pain and it spreads to ab2 my back. My hands are tingling and numb." ab2
--- NOTE | 2021-09-24 03:48 | EDPHYS ---
Physician Documentation [facility] Name: Denise Wick Age: 41 yrs Sex: Female : 1980 Arrival Date: 09/23/2021 Time: 21:47 Bed 17 Private MD: ED Physician Bruno Ferrell HPI: 09/23 23:46 This 41 yrs old Female presents to ER via Ambulatory with complaints of Chest johnny Pain, Numbness Of Hand, Back Pain. 23:46 The patient or guardian reports chest pain that is located primarily in the substernal johnny area, anterior chest wall, bilaterally. Onset: just prior to arrival. The pain radiates to jaw, back. Associated signs and symptoms: Pertinent positives: nausea, shortness of breath. The chest pain is described as a heaviness, a pressure. Duration: The patient or guardian reports a single episode, that is still ongoing. Modifying factors: The symptoms are alleviated by nothing. the symptoms are aggravated by activity. Severity of pain: At its worst the pain was moderate in the emergency department the pain is unchanged. The patient has not experienced similar symptoms in the past. 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 - Social history:: Smoking status: Patient reports the use of cigarette tobacco products, smokes one-half pack cigarettes per day. - Family history:: not pertinent. ROS: 23:46 Constitutional: Negative for fever, chills, and weight loss, Eyes: Negative for injury, johnny pain, redness, and discharge, ENT: Negative for injury, pain, and discharge, Neck: Negative for injury, pain, and swelling, Respiratory: Negative for shortness of breath, cough, wheezing, and pleuritic chest pain, Abdomen/GI: Negative for abdominal pain, nausea, vomiting, diarrhea, and constipation, Back: Negative for injury and pain, : Negative for injury, bleeding, discharge, and swelling, MS/Extremity: Negative for injury and deformity, Skin: Negative for injury, rash, and discoloration, Neuro: Negative for headache, weakness, numbness, tingling, and seizure, Psych: Negative for depression, anxiety, suicide ideation, homicidal ideation, and hallucinations, Allergy/Immunology: Negative for hives, rash, and allergies, Endocrine: Negative for neck swelling, polydipsia, polyuria, polyphagia, and marked weight changes, Hematologic/Lymphatic: Negative for swollen nodes, abnormal bleeding, and unusual bruising. 23:46 Cardiovascular: Positive for chest pain, of the chest. Exam: 23:46 Constitutional: This is a well developed, well nourished patient who is awake, alert, johnny and in no acute distress. Head/Face: Normocephalic, atraumatic. Eyes: Pupils equal round and reactive to light, extra-ocular motions intact. Lids and lashes normal. Conjunctiva and sclera are non-icteric and not injected. Cornea within normal limits. Periorbital areas with no swelling, redness, or edema. ENT: Nares patent. No nasal discharge, no septal abnormalities noted. Tympanic membranes are normal and external auditory canals are clear. Oropharynx with no redness, swelling, or masses, exudates, or evidence of obstruction, uvula midline. Mucous membranes moist. Neck: Trachea midline, no thyromegaly or masses palpated, and no cervical lymphadenopathy. Supple, full range of motion without nuchal rigidity, or vertebral point tenderness. No Meningismus. Chest/axilla: Normal chest wall appearance and motion. Nontender with no deformity. No lesions are appreciated. Cardiovascular: Regular rate and rhythm with a normal S1 and S2. No gallops, murmurs, or rubs. Normal PMI, no JVD. No pulse deficits. Respiratory: Lungs have equal breath sounds bilaterally, clear to auscultation and percussion. No rales, rhonchi or wheezes noted. No increased work of breathing, no retractions or nasal flaring. Abdomen/GI: Soft, non-tender, with normal bowel sounds. No distension or tympany. No guarding or rebound. No evidence of tenderness throughout. Back: No spinal tenderness. No costovertebral tenderness. Full range of motion. Skin: Warm, dry with normal turgor. Normal color with no rashes, no lesions, and no evidence of cellulitis. MS/ Extremity: Pulses equal, no cyanosis. Neurovascular intact. Full, normal range of motion. Neuro: Awake and alert, GCS 15, oriented to person, place, time, and situation. Cranial nerves II-XII grossly intact. Motor strength 5/5 in all extremities. Sensory grossly intact. Cerebellar exam normal. Normal gait. Psych: Awake, alert, with orientation to person, place and time. Behavior, mood, and affect are within normal limits. 23:50 ECG was reviewed by the Attending Physician. [facility] Vital Signs: 21:58 BP 164 / 104; Pulse 116; Resp 18; Temp 98.7(TE); Pulse Ox 100% on R/A; Weight 72.57 kg; ab2 Height 5 ft. 6 in. (167.64 cm); Pain 10; 09/24 00:19 BP 133 / 74; Pulse 81; Resp 19; Pulse Ox 100% on R/A; 5 00:36 Weight 84.4 kg; 5 00:37 BP 105 / 89; Pulse 76; Resp 19; Pulse Ox 100% on R/A; [facility] 07:33 BP 118 / 69; Pulse 80; Resp 18; Pulse Ox 99% ; malloy 09:00 BP 90 / 47; Pulse 77; Resp 17; Pulse Ox 99% ; malloy 10:00 BP 102 / 65; Pulse 79; Resp 17; Pulse Ox 99% on R/A; [place] 11:00 BP 108 / 74; Pulse 71; Resp 17; Pulse Ox 98% ; malloy 12:00 BP 107 / 68; Pulse 75; Resp 16; Pulse Ox 98% on R/A; [place] 13:00 BP 102 / 72; Pulse 76; Resp 16; Pulse Ox 98% ; malloy 15:00 BP 100 / 72; Pulse 79; Resp 17; Pulse Ox 99% ; malloy 00:36 Body Mass Index 30.03 (84.40 kg, 167.64 cm) [facility] MDM: 09/23 22:21 Patient medically screened. [facility] 23:48 Differential diagnosis: abnormal EKG, acute myocardial infarction, acute pericarditis, johnny anxiety, chest wall pain, Cholelithiasis costochondritis, esophagitis, gastritis, hiatal hernia, peptic ulcer disease, pericarditis, pneumothorax, pulmonary embolus, stable angina, thoracic aortic disection, unstable angina. HEART Score: History: Highly Suspicious (2), ECG: Non specific repolarization disturbance / LBTB / PM (1), Age: < or = 45 years (0), Risk Factors: 1 or 2 risk factors (1), [Hypertension] [+ Family HX] Troponin: < or = 1 x Normal Limit (0). The patient was given aspirin in the Emergency Department. The patient's deep vein thrombosis risk score was calculated as follows: Total Score: 0. This patient was found to be at low risk for a deep vein thrombosis by using the Well's assessment criteria. The patient's pulmonary embolism risk score was calculated as follows: Total Score: 3-6 points. This patient was found to be at moderate risk for a pulmonary embolism by using the Well's assessment criteria. ADEBAYO Risk Score: 1 - Recent [<24hrs] Severe Angina, TOTAL SCORE = 1. Data reviewed: vital signs, nurses notes, lab test result(s), EKG, radiologic studies, CT scan, plain films. 09/23 22:26 Order name: SARS-COV-2 RT PCR (Document "Date of Onset" if Symptomatic) johnny 09/24 00:11 Order name: UDS la1 09/24 00:39 Order name: Ptt, Activated johnny 09/24 03:46 Order name: Basic Metabolic Panel EDMS 09/24 03:46 Order name: Liver (Hepatic) Function EDMS 09/24 03:46 Order name: Troponin High Sensitivity EDMS 09/24 03:46 Order name: NT PRO-BNP EDMS 09/24 03:46 Order name: Magnesium EDMS 09/24 03:46 Order name: Lipase EDMS 09/24 03:46 Order name: CBC with Automated Diff EDMS 09/24 03:46 Order name: Protime (+INR) EDMS 09/24 03:47 Order name: PTT, Activated Partial Thromb EDMS 09/24 03:48 Order name: Urinalysis EDMS 09/24 04:02 Order name: Urine Drug Screen EDMS 09/24 04:22 Order name: Troponin High Sensitivity EDMS 09/24 04:22 Order name: Lipid Profile EDMS 09/24 04:22 Order name: T4 Free EDMS 09/24 04:22 Order name: Thyroid Stimulating Hormone EDMS 09/24 04:32 Order name: Urine Microscopic Only EDMS 09/24 05:59 Order name: PTT, Activated Partial Thromb EDMS 09/24 09:56 Order name: PTT, Activated Partial Thromb EDID 09/24 11:14 Order name: Troponin High Sensitivity EDID 09/23 22:01 Order name: EKG - Nurse/Tech; Complete Time: 22:01 ab2 09/23 22:26 Order name: XRAY Chest (1 view) [facility] 09/23 22:26 Order name: EKG; Complete Time: 03:47 [facility] 09/23 22:26 Order name: Cardiac monitoring; Complete Time: 23:27 [facility] 09/23 22:26 Order name: IV Saline Lock; Complete Time: 23:27 [facility] 09/23 22:26 Order name: Labs collected and sent; Complete Time: 23:27 [facility] 09/23 22:26 Order name: O2 Per Protocol; Complete Time: 23:27 [facility] 09/23 22:26 Order name: O2 Sat Monitoring; Complete Time: 23:27 [facility] 09/24 03:53 Order name: Angio Aorta For Dissection EDID 09/24 14:42 Order name: SARS-COV-2 RT PCR (Document "Date of Onset" if Symptomatic) 09/24 14:54 Order name: PTT, Activated Partial Thromb EDID 09/24 15:49 Order name: SARS-COV-2 RT PCR EDID 09/24 18:59 Order name: PTT, Activated Partial Thromb EDMS EC:50 Rate is 115 beats/min. Rhythm is regular. QRS [place] is Normal. [place] interval is normal. [facility] QRS interval is normal. QT interval is normal. No Q waves. T waves are Normal in leads II, III, aVF. ST Segment is depressed in leads II, III, aVF, V4, V5, V6. Clinical impression: Sinus tachycardia. Interpreted by me. Reviewed by me. Administered Medications: : Drug: Aspirin Chewable Tablet 324 mg Route: PO; [facility] 09/24 07:09 Follow up: Response: No adverse reaction 09/23 23:27 Drug: Pepcid (famotidine) 20 mg Route: IVP; Site: left upper arm; [facility] 09/24 07:09 Follow up: Response: No adverse reaction 09/23 22: Drug: NS 0.9% 500 ml Route: IV; Rate: bolus; Site: left upper arm; [facility] 09/24 07:09 Follow up: IV Status: Completed infusion : Drug: Lopressor (metoprolol TARTRATE) 50 mg Route: PO; 5 01:22 Drug: morphine 4 mg Route: IVP; Site: left upper arm; 5 07:08 Follow up: Response: No adverse reaction malloy 01:22 Drug: Zofran (Ondansetron) 4 mg Route: IVP; Site: left upper arm; 5 07:08 Follow up: Response: No adverse reaction malloy 01:22 Drug: PlaVIX (clopidogrel) 300 mg Route: PO; sm5 07:08 Follow up: Response: No adverse reaction malloy 02:00 Drug: Heparin (AL-Bolus No thrombolytic) - HEParin 60 units/kg {Co-Signature: al4 sm5 (Shekhar [place]).} Route: IVP; Site: left upper arm; 02:03 Drug: Heparin (AL Drip) 12 units/kg/hr - (HEParin 76461 units, D5W 500 ml) sm5 {Co-Signature: al4 (Shekhar [place]).} Route: IV; Rate: calculated rate; Site: left upper arm; 02:05 Drug: Potassium Effervescent Tablet 25 mEq Route: PO; 5 07:07 Follow up: Response: No adverse reaction malloy 02:07 Not Given (Hemodynamic Parameters): Lopressor (metoprolol) 5 mg IVP every 5 minutes; 5 Hold for SBP < 100 or HR < 60. x3 03:04 Drug: NS 0.9% 1000 ml Route: IV; Rate: 125 ml/hr; Site: left upper arm; 5 Disposition Summary: 09/24/21 00:18 Hospitalization Ordered Hospitalization Status: Inpatient Admission johnny Provider: Gregg Obrien cha Condition: Fair johnny Problem: new johnny Symptoms: have improved johnny Bed/Room Type: Standard johnny Location: [facility] ER HOLD(09/24/21 02:18) cg Room Assignment: ERHOLD-(09/24/21 02:18) cg Diagnosis - Chest pain, unspecified johnny - Unstable angina johnny - Essential (primary) hypertension johnny - Hypokalemia johnny Discharge Instructions: - Discharge Summary Sheet iw Forms: - Medication Reconciliation Form johnny - SBAR form johnny Signatures: Dispatcher [employer] EDBruno Wise MD MD cha Garcia, Cindy RN RN Raiza Vargas RN RN 5 Shekhar Monk2 Au-StagerOneida RN malloy Shekhar Peñaloza al4 Corrections: (The following items were deleted from the chart) 02:18 00:18 Intensive Care Unit johnny cg 02:18 00:18 johnny cg 03:53 03:47 Angio Aorta For Dissection+CT.RAD.BRZ ordered. EDMS EDMS 03:54 03:46 BASIC METABOLIC PANEL+C.LAB.BRZ ordered. EDMS EDMS 03:54 03:46 CBC+H.LAB.BRZ ordered. EDMS EDMS 03:54 03:46 HEPATIC FUNCTION+C.LAB.BRZ ordered. EDMS EDMS 03:54 03:46 MAGNESIUM+C.LAB.BRZ ordered. EDMS EDMS 03:54 03:46 PROBNP+C.LAB.BRZ ordered. EDMS EDMS 03:54 03:46 PROTIME (+INR)+COAG.LAB.BRZ ordered. EDMS EDMS 03:54 03:46 Troponin High Sensitivity+C.LAB.BRZ ordered. EDMS EDMS 03:54 03:47 LIPASE+C.LAB.BRZ ordered. EDMS EDMS
[2021-09-24 04:02] LABS: Barbiturates NEGATIVE (NEGATIVE); Benzodiazepines NEGATIVE (NEGATIVE); Cocaine NEGATIVE (NEGATIVE); METHAMPHETAM NEGATIVE (NEGATIVE); Methadone NEGATIVE (NEGATIVE); Opiates POSITIVE (NEGATIVE); Phencyclidine NEGATIVE (NEGATIVE); THC Cannibis NEGATIVE (NEGATIVE)
[2021-09-24 04:20] LABS: Urine Microscopic Reflex ORDER UMIC
[2021-09-24 04:22] LABS: Thyroid Stimulating Hormone 3.21 uIU/mL (0.360-3.740); Troponin High Sensitivity 17.8 pg/mL (<58.9)
[2021-09-24 04:32] LABS: Urine Bacteria LOADED /HPF (<20); Urine Mucus 1+ /HPF (NONE SEEN); Urine RBC <5 /HPF (NONE SEEN)
[2021-09-24] MEDS ORDERED: HYDROMORPHONE HCL 0.5 MG/0.5 ML INJ ONE (05:04)
[2021-09-24] MEDS ORDERED: HYDROMORPHONE HCL 0.5 MG/0.5 ML INJ IV ONE (05:05)
[2021-09-24] MEDS ORDERED: LEVOTHYROXINE SOD 0.05 MG TABLET PO SCH (06:30)
[2021-09-24 07:33] VITALS: TEMP 98.1
[2021-09-24] MEDS ORDERED: INFLUENZA VACCINE (for 6+ mo) 0.5 ML DOSE IMVAC ONE (08:00)
[2021-09-24] MEDS ORDERED: ASPIRIN EC 81 MG TAB PO SCH (09:00)
[2021-09-24] MEDS ORDERED: METOPROLOL TAR 50 MG TAB PO SCH (09:00)
[2021-09-24] MEDS ORDERED: ASPIRIN EC 81 MG TAB PO ONE (09:25)
[2021-09-24] MEDS ORDERED: HYDROCODONE/APAP 10/325 TAB ONE ×2 (09:25→15:48)
[2021-09-24] MEDS: HYDROCODONE/APAP 10/325 TAB PO PRN ×2 (09:28→15:43)
[2021-09-24] MEDS ORDERED: ENOXAPARIN 80 MG/0.8 ML SQ SCH (13:00)
--- NOTE | 2021-09-24 13:01 | RAD REPORT ---
EXAM DESCRIPTION: CT - Angio Aorta For Dissection - 09/24/2021 12:45 am CLINICAL HISTORY: Chest pain COMPARISON: Single-view chest 08/29/2021 TECHNIQUE: Dynamically enhanced 3 mm thick images of the chest, abdomen, and upper pelvis were obtai lottie during administration of approximately 150mL Isovue 370 IV contrast. Sagittal and coronal reconst ruction images were generated using MIP and reviewed. Exam utilizes a protocol to evaluate entire cou rse of the aorta. All CT scans are performed using dose optimization technique as appropriate and may include automated exposure control or mA/KV adjustment according to patient size. FINDINGS: Aorta is normal in diameter with no dissection or other acute aortic findings. Reconstruct ion images show no significant findings. Pulmonary arteries are normal as well. No cardiomegaly, pericardial thickening or pericardial effusio n. No mass or infiltrate in the lung parenchyma. No pleural thickening, pleural effusion or pneumothorax . No abnormal mediastinal or hilar mass or lymphadenopathy seen. No chest wall mass or abnormal axillar y lymphadenopathy. Celiac, SMA and renal arteries show no suspicious findings. Solid abdominal viscera and bowel show no significant findings. No mass or abnormal lymphadenopathy. No free air, free fluid or inflammatory stranding. No urinary bladder abnormality. No uterine or left ovarian abnormality seen. Right ovary contains a 2.6 centimeter cyst that appears to be a simple cyst there it is a smaller 2.0 centimeter cyst that appears to be involuting. No right adnexal hemorrhage or abnormal fluid collection. No acute or suspicious bone finding. Examination was performed of the time when there was a planned PACs/IT service being performed. Image s were only available to be viewed in the exception folder without access to any comparison study. A report could not be dictated at that time. A verbal report was telephoned to the referring physician at the time of the study. IMPRESSION: CT dissection study shows no acute or emergent finding. No suspicious finding identifiable in the chest, abdomen or pelvis. Nonacute findings are detailed in the body of the report.
[2021-09-24] MEDS ORDERED: ENOXAPARIN 80 MG/0.8 ML SQ ONE (15:44)
--- NOTE | 2021-09-24 19:31 | P.DS ---
Admission Date: 09/24/21 Discharge Date: 09/24/21 Disposition: AMA-LEFT AGAINST MEDICAL ADVIC Discharge Condition: FAIR Reason for Admission: Unstable angina Consultations: Cardiology Brief History of Present Illness: 41-year-old female with history of seizure disorder, hypothyroidism, hyperlipidemia, hypertension, angina presents emergency department for severe chest pain. Patient reports she is sitting in her car when she had sudden onset severe chest pain radiating between her shoulders to her back associated with significant diaphoresis. Patient presented to the emergency department tac hycardic and hypertensive initial EKG was sinus rhythm with PACs. Her labs were significant for mildly elevated BNP 211 initial troponin 13.5 high-sensitivity CBC unremarkable chest x-ray unremarkable CT angio to rule out dissection/PE performed which was negative for aortic dissection or pulmonary embolism. Patient still has significant pain ED provider wishes to admit to the ICU for unstable angina, patient was started on heparin drip in the emergency department. Hospital Course: Patient was admitted overnight, her troponin was trended negative was pending evaluation from cardiology. Patient elected to leave AGAINST MEDICAL ADVICE reporting that she would follow-up on outpatient basis nursing staff, she left the facility before had a chance to speak with her nursing staff report that they did instruct her on the risks of leaving AMA including risk of /serious harm. Hopefully she will do well. Vital Signs/Physical Exam: Temp Pulse Resp BP Pulse Ox 98.1 F 79 17 115/76 99 09/24/21 07:32 09/24/21 07:32 09/24/21 07:32 09/24/21 07:32 09/24/21 07:32 Laboratory Data at Discharge: WBC 7.6 K/uL (4.3-10.9) 09/23/21 23:06 Hgb 13.5 g/dL (12.0-15.0) 09/23/21 23:06 Hct 40.3 % (36.0-45.0) 09/23/21 23:06 Plt Count 275 K/uL (152-406) 09/23/21 23:06 PT 11.2 SECONDS (9.5-12.5) 09/23/21 23:06 INR 1.02 09/23/21 23:06 APTT 37.9 SECONDS (24.3-36.9) H 09/24/21 18:40 Sodium 139 mmol/L (136-145) 09/23/21 23:06 Potassium 3.4 mmol/L (3.5-5.1) L 09/23/21 23:06 BUN 11 mg/dL (7-18) 09/23/21 23:06 Creatinine 0.60 mg/dL (0.55-1.3) 09/23/21 23:06 Glucose 96 mg/dL (74-106) 09/23/21 23:06 Magnesium 2.2 mg/dL (1.8-2.4) 09/23/21 23:06 Total Bilirubin 0.2 mg/dL (0.2-1.0) 09/23/21 23:06 AST 16 U/L (15-37) 09/23/21 23:06 ALT 24 U/L (12-78) 09/23/21 23:06 Alkaline Phosphatase 71 U/L (45-117) 09/23/21 23:06 Triglycerides 65 mg/dL (<150) 09/24/21 03:26 Cholesterol 243 mg/dL (<200) H 09/24/21 03:26 HDL Cholesterol 51 mg/dL (40-60) 09/24/21 03:26 Cholesterol/HDL Ratio 4.76 09/24/21 03:26 Lipase 79 U/L (73-393) 09/23/21 23:06 Home Medications: Alprazolam [Xanax] 1 tab PO DAILY 04/03/20 ALPRAZolam [Xanax] 0.5 mg PO TID PRN #30 tab 03/17/21 Aspirin [Aspirin EC 81 MG] 81 mg PO DAILY #30 tablet 03/17/21 Atorvastatin Calcium [Lipitor] 40 mg PO DAILY #30 tablet 03/17/21 Gabapentin 300 mg PO Q12H #60 capsule 03/17/21 Hydrocodone 5/APAP 325 [[place] 5/325] 1 tab PO Q6H PRN #30 tab 03/17/21 Hydrocodone/Acetaminophen [Vicodin Hp 10-325 mg Tablet] 1 tab PO BID #30 03/17/21 Levothyroxine [Synthroid*] 1 tab PO DAILY #30 03/17/21 Metoprolol Tartrate [Lopressor*] 50 mg PO BID #60 tab 03/17/21 Nitroglycerin [Nitrostat] 1 tab PO SEECOM PRN #100 03/17/21 carBAMazepine [Tegretol] 1 tab PO BID #60 03/17/21 carBAMazepine [Tegretol] 200 mg PO BID #60 tab 03/17/21 hydroCHLOROthiazide [Hydrochlorothiazide*] 12.5 mg PO DAILY #30 cap 03/17/21 Followup: FABIOLA HICKS [Primary Care Provider] -
[2021-09-24 20:56] VITALS: BP 100/72; O2SAT 99
[2021-09-24] MEDS ORDERED: ATORVASTATIN 40 MG TAB PO SCH (21:00)
--- NOTE | 2021-09-27 07:26 | ECHO ---
HEIGHT: 5 ft 6 in WEIGHT: 186 lb 0 oz DATE OF STUDY: 09/24/[address]: Willam Gonzalez NP 2-DIMENSIONAL: YES M.MODE: YES DOPPLER: YES COLOR FLOW: YES TDS: NO PORTABLE: NO DEFINITY: NO BUBBLE STUDY: NO DIAGNOSIS: UNSTABLE ANGINA CARDIAC HISTORY: CATHERIZATION: SURGERY: PROSTHETIC VALVE: PACEMAKER: MEASUREMENTS (cm) DIASTOLIC (NORMALS) SYSTOLIC (NORMALS) IVSd 0.9 (0.6-1.2) LA Diam 4.0 (1.9-4.0) LVEF 55-60% LVIDd 5.2 (3.5-5.7) LVIDs 3.8 (2.0-3.5) %FS 28% LVPWd 1.0 (0.6-1.2) Ao Diam 2.6 (2.0-3.7) 2 DIMENSIONAL ASSESSMENT: RIGHT ATRIUM: NORMAL LEFT ATRIUM: NORMAL RIGHT VENTRICLE: NORMAL LEFT VENTRICLE: NORMAL TRICUSPID VALVE: NORMAL MITRAL VALVE: NORMAL PULMONIC VALVE: NORMAL AORTIC VALVE: NORMAL PERICARDIAL EFFUSION: NONE AORTIC ROOT: NORMAL LEFT VENTRICULAR WALL MOTION: NORMAL DOPPLER/COLOR FLOW: MILD TRICUSPID AND MITRAL REGURGITATION. COMMENTS: NORMAL LEFT VENTRICULAR EJECTION FRACTION 55-60%. NORMAL WALL MOTION. MILD TRICUSPID AND MITRAL REGURGITATION. TECHNOLOGIST: Halley JACQUES
--- NOTE | 2021-09-27 11:22 | EKG ---
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
== END 2021-09-24 19:29 | disposition left against medical advice (07) ==
LOC: ER 21:44 → ERHOLD 09-24 02:08 → INTOOBSV 09-24 02:08
PROVIDERS: ADMIT Internal Medicine Sleep Medicine; ATTEND Internal Medicine Sleep Medicine
DX: I20.0 Unstable angina (principal); I10 Essential (primary) hypertension; E78.5 Hyperlipidemia, unspecified; E03.9 Hypothyroidism, unspecified; G40.909 Epilepsy, unspecified, not intractable, without status epilepticus; F17.210 Nicotine dependence, cigarettes, uncomplicated; Z53.29 Procedure and treatment not carried out because of patient's decision for other reasons; Z20.822 Contact with and (suspected) exposure to COVID-19
CPT/HCPCS: 96361; 93005; 93306; 87088; 85025; 87086; 80048; 36415; 83735; 85610; 80061; 80076; 85730 ×5; 84443; 84484 ×3; 84439; 83690; 83880; 80307; 71275; 74175; 71045; 96375; 96374; 99285; U0003; Q9967; J1644 ×2; J2270; J1170; J7040; J7030 ×2; J2405; G0378 ×2; 81003; 81015

== ENCOUNTER 2022-07-05 16:34 | Emergency (ER) | payer OTHER ==
--- OUTSIDE RECORDS SUMMARY | 2022-07-05 16:45 | XMS REPORT | Continuity of Care Document ---
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 nitroglycer 2020- No .4mg 0.4 mg, Un sushant in 10-13 Sublingual ity of (NITROSTAT) 11:00: 10:03 , ONCE, 1 [place] sublingual 00 :00 dose, [facility] Medi steve tablet 0.4 10/13/20 at [facility] mg 0600, RAJANI LORazepam 2020- No 1mg 1 mg, Slow U nivers (ATIVAN) 10-13 IV Push, ity of injection 1 11:00: 10:04 ONCE, 1 [place] mg 00 :00 dose, Tue Medical 10/13/20 at Branch 0600, STAT acetaminoph 2020- No 1000mg 1,000 mg, Univers en 09-17 Oral, ity of (TYLENOL) 05:15: 04:05 ONCE, 1 [place] tablet 00 :00 dose, [facility] 1,000 mg 09/17/20 at [facility] h 0015, RAJANI thiamine 2020- No IV Univers (VITAMIN 09-17 Infusion, ity o f B1) 100 mg, 04:00: 04:55 at 999 [place] as foLIC acid 00 :00 mL/hr, Medical (FOLATE) 1 ONCE, 1 Branch mg in D5W dose, Wed 0.45% NaCl 09/16/20 at (1/2NS) IV 2300, Solution 1,000 mL lisinopriL 2020- No 20mg 20 mg, Univ ers (PRINIVIL,Z 09-17 Oral, ity of ESTRIL) 03:45: 03:02 ONCE, 1 [place] tablet 20 00 :00 dose, Wed Medic al mg 09/16/20 at Branch 2245, Routine ondansetron 2020- No 4mg 4 mg, Slow Univers (ZOFRAN 09-17 IV Push, ity of (PF)) 03:45: 03:02 ONCE, 1 [place] injection 4 00 :00 dose, Wed Med ical mg 09/16/20 at Branch 2245, RAJANI NaCl 0.9% 2020- No 1000mL at 999 Uni vers (NS) bolus 09-17-25 mL/hr, ity of infusion 03:45: 04:55 1,000 mL, V[place] as 1,000 mL 00 :00 IV Medical Infusion, Branch ONCE, 1 dose, 09/16/20 at 2245, STAT ondansetron Yes [id number] 4mg Take 1 Univers 4 mg 3-24 tablet by ity of disintegrat 00:00: mouth [place] ing tablet 00 every 8 Medica l (eight) Branch hours as needed for Nausea and Vomiting (N/V). ondansetron Yes [id number] 4mg Take 1 Univers 4 mg 3-24 tablet by ity of disintegrat 00:00: mouth [place] ing tablet 00 every 8 Medica l (eight) Branch hours as needed for Nausea and Vomiting (N/V). ondansetron Yes [id number] 4mg Take 1 Univers 4 mg 3-24 tablet by ity of disintegrat 00:00: mouth [place] ing tablet 00 every 8 Medica l (eight) Branch hours as needed for Nausea and Vomiting (N/V). ondansetron Yes [id number] 4mg Take 1 Univers 4 mg 3-24 tablet by ity of disintegrat 00:00: mouth [place] ing tablet 00 every 8 Medica l (eight) Branch hours as needed for Nausea and Vomiting (N/V). ondansetron Yes [id number] 4mg Take 1 Univers 4 mg 3-24 tablet by ity of disintegrat 00:00: mouth [place] ing tablet 00 every 8 Medica l (eight) Branch hours as needed for Nausea and Vomiting (N/V). ondansetron 2020- No [id number] 4mg Take 1 Univers 4 mg 3-24 05-30 tablet by ity of disintegrat 00:00: 00:00 [place] tablet 00 :00 every 8 Medica l (eight) Branch hours as needed for Nausea and Vomiting (N/V). ondansetron 2020- No [id number] 4mg Take 1 Univers 4 mg 3-24 03-24 tablet by ity of disintegrat 00:00: 00:00 [place] tablet 00 :00 every 8 Medica l (eight) Branch hours as needed for Nausea and Vomiting (N/V). iohexol 2020- No [id number] 120mL 120 mL, Univers (OMNIPAQUE 3-14 -14 Intravenou it y of 350 11:45: 11:27 s, ONCE, 1 [place] BULK-100 00 :00 dose, [facility] mL) 09/06/20 at Branch injection 0645, 120 mL Routine KCL 20 mEq Yes [id number] 20meq Take 1 Univers tablet 3-14 tablet by ity of 00:00: mouth [place] 00 daily. Medical Branch KCL 20 mEq Yes [id number] 20meq Take 1 Univers tablet 3-14 tablet by ity of 00:00: mouth [place] 00 daily. [facility] KCL 20 mEq 2020-0 Yes [id number] 20meq Take 1 Univers tablet 3-14 tablet by ity of 00:00: mouth [place] 00 daily. [facility] KCL 20 mEq 2020-0 Yes [id number] 20meq Take 1 Univers tablet 3-14 tablet by ity of 00:00: mouth [place] 00 daily. [facility] KCL 20 mEq 2020-0 Yes [id number] 20meq Take 1 Univers tablet 3-14 tablet by ity of 00:00: mouth [place] 00 daily. [facility] KCL 20 mEq 2020-0 Yes [id number] 20meq Take 1 Univers tablet 3-14 tablet by ity of 00:00: mouth [place] 00 daily. [facility] KCL 20 mEq 2020- No [id number] 20meq Take 1 Univers tablet 3-14 05-30 tablet by ity of 00:00: 00:00 mouth [place] 00 :00 daily. [facility] furosemide 2020- No [id number] 40mg Take 1 Univers (LASIX) 40 3-14 03-18 tablet by ity of mg tablet 00:00: 04:59 mouth [place] 00 :00 daily for Medical 3 days. [place] hydrOXYzine 2020- No [id number] 25mg 25 mg, Univers (ATARAX) 3-10 03-10 Oral, ity of tablet 25 02:00: 01:21 ONCE, 1 [place] mg 00 :00 dose, [facility] 09/01/20 at Branch 1999, RAJANI hydralAZINE 2020- No [id number] 10mg 10 mg, Univers (APRESOLINE 3-10 03-10 Slow IV ity of ) injection 01:30: 00:25 Push, [place] 10 mg 00 :00 ONCE, 1 Medical dose, [facility] 09/01/20 at 1930, STAT
In dication: Hypertensi ve Emergency ondansetron 2020- No [id number] 4mg 4 mg, Slow Univers (ZOFRAN 3-10 03-10 IV Push, ity of (PF)) 01:15: 00:10 ONCE, 1 [place] injection 4 00 :00 dose, [facility] ical mg 09/01/20 at Branch 1915, RAJANI hydrOXYzine 2020-0 Yes [id number] 25mg Take 1 Univers 25 mg 3-09 tablet by ity of tablet 00:00: mouth [place] 00 every 6 Medical (six) Branch hours as needed for Anxiety. hydrOXYzine 2020-0 Yes [id number] 25mg Take 1 Univers 25 mg 3-09 tablet by ity of tablet 00:00: mouth [place] 00 every 6 Medical (six) Branch hours as needed for Anxiety. hydrOXYzine 2020-0 Yes [id number] 25mg Take 1 Univers 25 mg 3-09 tablet by ity of tablet 00:00: mouth [place] 00 every 6 Medical (six) Branch hours as needed for Anxiety. hydrOXYzine 2020-0 Yes [id number] 25mg Take 1 Univers 25 mg 3-09 tablet by ity of tablet 00:00: mouth [place] 00 every 6 Medical (six) Branch hours as needed for Anxiety. hydrOXYzine 2020-0 Yes [id number] 25mg Take 1 Univers 25 mg 3-09 tablet by ity of tablet 00:00: mouth [place] 00 every 6 Medical (six) Branch hours as needed for Anxiety. hydrOXYzine 2020-0 Yes [id number] 25mg Take 1 Univers 25 mg 3-09 tablet by ity of tablet 00:00: mouth [place] 00 every 6 Medical (six) Branch hours as needed for Anxiety. hydrOXYzine 2020-0 Yes [id number] 25mg Take 1 Univers 25 mg 3-09 tablet by ity of tablet 00:00: mouth [place] 00 every 6 Medical (six) Branch hours as needed for Anxiety. hydrOXYzine 2020-0 2020- No [id number] 25mg Take 1 Univers 25 mg 3-09 05-30 tablet by ity of tablet 00:00: 00:00 mouth [place] 00 :00 every 6 Medical (six) Branch hours as needed for Anxiety. hydroCHLORO 2020-0 202- No [id number] 25mg Take 1 Univers thiazide 25 3-09 04-09 tablet by it y of mg tablet 00:00: 04:59 mouth [place] 00 :00 every Medical morning Branch and evening for 30 days. hydroCHLORO 2020-0 2021- No [id number] 25mg Take 1 Univers thiazide 25 3-09 04-09 tablet by it y of mg tablet 00:00: 04:59 mouth [place] 00 :00 every Medical morning Branch and evening for 30 days. hydroCHLORO 2020- No [id number] 25mg Take 1 Univers thiazide 25 3-02 27-09 tablet by it y of mg tablet 00:00: 04:59 mouth [place] 00 :00 every Medical morning Branch and evening for 30 days. hydrOXYzine 2020- No [id number] 25mg Take 1 Univers 25 mg 3- 03-09 tablet by ity of tablet 00:00: 00:00 mouth [place] 00 :00 every 6 Medical (six) Branch hours as needed for Anxiety. gabapentin 2019-06 Yes 300mg Take 300 Un [facility] 300 mg 0-21 mg by ity of capsule 02:02: mouth 2 [place] [address] (two) Medical times Branch daily. levothyroxi 2019-06 Yes 100ug Take 100 U nivers ne 100 mcg 0-21 mcg by ity of tablet 02:02: mouth [place] [address] daily. Medical Branch meloxicam 2019-06 Yes 7.5mg Take 7.5 Uni vers 7.5 mg 0-21 mg by ity of tablet 02:02: mouth [place] [address] daily. Medical Branch metoprolol 2019-06 Yes 25mg Take 25 mg U nivers tartrate 25 0-21 by mouth ity of mg tablet 02:02: daily. [place] [address] Medical Branch omeprazole 2019-06 Yes 20mg Take 20 mg U nivers 20 mg 0-21 by mouth ity of capsule 02:02: daily. [place] [address] Medical Branch pravastatin 2019-06 Yes 20mg Take 20 mg Univers 20 mg 0-21 by mouth ity of tablet 02:02: at [place] [address] bedtime. Medical Branch triamcinolo 2019-06 Yes .1% Apply 0.1 U nivers ne 0-21 % to ity of acetonide/l 02:02: area(s) 2 [place] .s.b[place] (two) Medical (ARISTOCORT times Branch A TOPICAL) daily. gabapentin 2019-06 Yes 300mg Take 300 Un [place] 300 mg 0-21 mg by ity of capsule 02:02: mouth 2 [place] [address] (two) Medical times Branch daily. levothyroxi 2019-06 Yes 100ug Take 100 U nivers ne 100 mcg 0-21 mcg by ity of tablet 02:02: mouth [place] [address] daily. Medical Branch meloxicam 2019-06 Yes 7.5mg Take 7.5 Uni vers 7.5 mg 0-21 mg by ity of tablet 02:02: mouth [place] [address] daily. Medical Branch metoprolol 2019- Yes 25mg Take 25 mg U nivers tartrate 25 0-21 by mouth ity of mg tablet 02:02: daily. [place] [address] Medical Branch omeprazole 2019- Yes 20mg Take 20 mg U nivers 20 mg 0-21 by mouth ity of capsule 02:02: daily. [place] [address] Medical Branch pravastatin 2019-06 Yes 20mg Take 20 mg Univers 20 mg 0-21 by mouth ity of tablet 02:02: at [place] [address] bedtime. Medical Branch triamcinolo 2019-06 Yes .1% Apply 0.1 U nivers ne 0-21 % to ity of acetonide/l 02:02: area(s) 2 [place] .s.b. 34 (two) Medical (ARISTOCORT times Branch A TOPICAL) daily. gabapentin 2019-06 Yes 300mg Take 300 Un [place] 300 mg 0-21 mg by ity of capsule 02:02: mouth 2 [place] [address] (two) Medical times Branch daily. levothyroxi 2019-06 Yes 100ug Take 100 U nivers ne 100 mcg 0-21 mcg by ity of tablet 02:02: mouth [place] [address] daily. Medical Branch meloxicam 2019-06 Yes 7.5mg Take 7.5 Uni vers 7.5 mg 0-21 mg by ity of tablet 02:02: mouth [place] [address] daily. Medical Branch metoprolol 2019-06 Yes 25mg Take 25 mg U nivers tartrate 25 0-21 by mouth ity of mg tablet 02:02: daily. [place] [address] Medical Branch omeprazole 2019- Yes 20mg Take 20 mg U nivers 20 mg 0-21 by mouth ity of capsule 02:02: daily. [place] [address] Medical Branch pravastatin 2019- Yes 20mg Take 20 mg Univers 20 mg 0-21 by mouth ity of tablet 02:02: at [place] [address] bedtime. Medical Branch triamcinolo 2019-06 Yes .1% Apply 0.1 U nivers ne 0-21 % to ity of acetonide/l 02:02: area(s) 2 [place] .s.b. 34 (two) Medical (ARISTOCORT times Branch A TOPICAL) daily. gabapentin 2019- Yes 300mg Take 300 Un [facility] 300 mg 0-21 mg by ity of capsule 02:02: mouth 2 [place] [address] (two) Medical times Branch daily. levothyroxi 2019-06 Yes 100ug Take 100 U nivers ne 100 mcg 0-21 mcg by ity of tablet 02:02: mouth [place] [address] daily. Medical Branch meloxicam 2019-06 Yes 7.5mg Take 7.5 Uni vers 7.5 mg 0-21 mg by ity of tablet 02:02: mouth [place] [address] daily. Medical Branch metoprolol 2019-06 Yes 25mg Take 25 mg U nivers tartrate 25 0-21 by mouth ity of mg tablet 02:02: daily. [place] [address] Medical Branch omeprazole 2019-06 Yes 20mg Take 20 mg U nivers 20 mg 0-21 by mouth ity of capsule 02:02: daily. [place] [address] Medical Branch pravastatin 2019-06 Yes 20mg Take 20 mg Univers 20 mg 0-21 by mouth ity of tablet 02:02: at [place] [address] bedtime. Medical Branch triamcinolo 2019-06 Yes .1% Apply 0.1 U nivers ne 0-21 % to ity of acetonide/l 02:02: [facility] [place] [facility] Medical (ARISTOCORT times Branch A TOPICAL) daily. gabapentin 2019-06 Yes 300mg Take 300 Un [facility]ush[place] 300 mg 0-21 mg by ity of capsule 02:02: mouth 2 [place] [address] (two) Medical times Branch daily. levothyroxi 2019-06 Yes 100ug Take 100 U nivers ne 100 mcg 0-21 mcg by ity of tablet 02:02: mouth [place] [address] daily. Medical Branch meloxicam 2019-06 Yes 7.5mg Take 7.5 Uni vers 7.5 mg 0-21 mg by ity of tablet 02:02: mouth [place] [address] daily. Medical Branch metoprolol 2019-06 Yes 25mg Take 25 mg U nivers tartrate 25 0-21 by mouth ity of mg tablet 02:02: daily. [address] Branch omeprazole 2019-06 Yes 20mg Take 20 mg U nivers 20 mg 0-21 by mouth ity of capsule 02:02: daily. [address] Branch pravastatin 2019-06 Yes 20mg Take 20 mg Univers 20 mg 0-21 by mouth ity of tablet 02:02: at [place] [address] bedtime. Medical Branch triamcinolo 2020- Yes .1% Apply 0.1 U nivers ne 0-21 % to ity of acetonide/l 02:02: area(s) 2 [place] .s.b. 34 (two) Medical (ARISTOCORT times Branch A TOPICAL) daily. gabapentin 2019- Yes 300mg Take 300 Un [place] 300 mg 0-21 mg by ity of capsule 02:02: mouth 2 [place] [address] (two) Medical times Branch daily. levothyroxi 2019- Yes 100ug Take 100 U nivers ne 100 mcg 0-21 mcg by ity of tablet 02:02: mouth [place] [address] daily. Medical Branch meloxicam 2019- Yes 7.5mg Take 7.5 Uni vers 7.5 mg 0-21 mg by ity of tablet 02:02: mouth [place] [address] daily. Medical Branch metoprolol 2019- Yes 25mg Take 25 mg U nivers tartrate 25 0-21 by mouth ity of mg tablet 02:02: daily. [place] [address] Medical Branch omeprazole 2019- Yes 20mg Take 20 mg U nivers 20 mg 0-21 by mouth ity of capsule 02:02: daily. [place] [address] Medical Branch pravastatin 2019- Yes 20mg Take 20 mg Univers 20 mg 0-21 by mouth ity of tablet 02:02: at [place] [address] bedtime. Medical Branch triamcinolo 2019- Yes .1% Apply 0.1 U nivers ne 0-21 % to ity of acetonide/l 02:02: area(s) 2 [place] .s.b. 34 (two) Medical (ARISTOCORT times Branch A TOPICAL) daily. gabapentin 2019- Yes 300mg Take 300 Un [place] 300 mg 0-21 mg by ity of capsule 02:02: mouth 2 [place] [address] (two) Medical times Branch daily. levothyroxi 2020- Yes 100ug Take 100 U nivers ne 100 mcg 0-21 mcg by ity of tablet 02:02: mouth [place] [address] daily. Medical Branch meloxicam 2019- Yes 7.5mg Take 7.5 Uni vers 7.5 mg 0-21 mg by ity of tablet 02:02: mouth [place] [address] daily. Medical Branch metoprolol 2019- Yes 25mg Take 25 mg U nivers tartrate 25 0-21 by mouth ity of mg tablet 02:02: daily. [place] [address] Medical Branch omeprazole 2019-06 Yes 20mg Take 20 mg U nivers 20 mg 0-21 by mouth ity of capsule 02:02: daily. [place] [address] Medical Branch pravastatin 2019-06 Yes 20mg Take 20 mg Univers 20 mg 0-21 by mouth ity of tablet 02:02: at [place] [address] bedtime. Medical Branch triamcinolo 2019-06 Yes .1% Apply 0.1 U nivers ne 0-21 % to ity of acetonide/l 02:02: area(s) 2 [place] .s.b. 34 (two) Medical (ARISTOCORT times Branch A TOPICAL) daily. gabapentin 2019-06 Yes 300mg Take 300 Un [facility] 300 mg 0-21 mg by ity of capsule 02:02: mouth 2 [place] [address] (two) Medical times Branch daily. levothyroxi 2019-06 Yes 100ug Take 100 U nivers ne 100 mcg 0-21 mcg by ity of tablet 02:02: mouth [place] [address] daily. Medical Branch meloxicam 2019-06 Yes 7.5mg Take 7.5 Uni vers 7.5 mg 0-21 mg by ity of tablet 02:02: mouth [place] [address] daily. Medical Branch metoprolol 2019-06 Yes 25mg Take 25 mg U nivers tartrate 25 0-21 by mouth ity of mg tablet 02:02: daily. [place] [address] Medical Branch omeprazole 2019-06 Yes 20mg Take 20 mg U nivers 20 mg 0-21 by mouth ity of capsule 02:02: daily. [place] [address] Medical Branch pravastatin 2019-06 Yes 20mg Take 20 mg Univers 20 mg 0-21 by mouth ity of tablet 02:02: at [place] [address] bedtime. Medical Branch triamcinolo 2019-06 Yes .1% Apply 0.1 U nivers ne 0-21 % to ity of acetonide/l 02:02: area(s) 2 [place] .s.b. 34 (two) Medical (ARISTOCORT times Branch A TOPICAL) daily. acetaminoph 2019-06- No [id number] 650mg Take 2 Univers en 325 mg 0-20 10-21 tablets by ity of tablet 00:00: 04:59 mouth [place] 00 :00 every 6 Medical (six) Branch hours as needed for Alternate with ibuprofen for pain scale 4-6. ibuprofen 2019-06- No [id number] 600mg Take 3 Univers 200 mg 0-20 10-21 tablets by ity of tablet 00:00: 04:59 mouth [place] 00 :00 every 6 Medical (six) Branch hours as needed (Alternate with acetaminop hen for pain). acetaminoph 2019-06- No [id number] 650mg Take 2 Univers en 325 mg 0-20 10-21 tablets by ity of tablet 00:00: 04:59 mouth [place] 00 :00 every 6 Medical (six) Branch hours as needed for Alternate with ibuprofen for pain scale 4-6. ibuprofen 2019-06- No [id number] 600mg Take 3 Univers 200 mg 0-20 10-21 tablets by ity of tablet 00:00: 04:59 mouth [place] 00 :00 every 6 Medical (six) Branch hours as needed (Alternate with acetaminop hen for pain). acetaminoph 2019-06- No [id number] 650mg Take 2 Univers en 325 mg 0-20 10-21 tablets by ity of tablet 00:00: 04:59 mouth [place] 00 :00 every 6 Medical (six) Branch hours as needed for Alternate with ibuprofen for pain scale 4-6. ibuprofen 2019-06- No [id number] 600mg Take 3 Univers 200 mg 0-20 10-21 tablets by ity of tablet 00:00: 04:59 mouth [place] 00 :00 every 6 Medical (six) Branch hours as needed (Alternate with acetaminop hen for pain). acetaminoph 2019-06- No [id number] 650mg Take 2 Univers en 325 mg 0-20 10-21 tablets by ity of tablet 00:00: 04:59 mouth [place] 00 :00 every 6 Medical (six) Branch hours as needed for Alternate with ibuprofen for pain scale 4-6. ibuprofen 2019-06- No [id number] 600mg Take 3 Univers 200 mg 0-20 10-21 tablets by ity of tablet 00:00: 04:59 mouth [place] 00 :00 every 6 Medical (six) Branch hours as needed (Alternate with acetaminop hen for pain). acetaminoph 2019-06- No [id number] 650mg Take 2 Univers en 325 mg 0-20 10-21 tablets by ity of tablet 00:00: 04:59 mouth [place] 00 :00 every 6 Medical (six) Branch hours as needed for Alternate with ibuprofen for pain scale 4-6. ibuprofen 2019-06 No [id number] 600mg Take 3 Univers 200 mg 0-20 10-21 tablets by ity of tablet 00:00: 04:59 mouth [place] 00 :00 every 6 Medical (six) Branch hours as needed (Alternate with acetaminop hen for pain). acetaminoph 2019-06 No [id number] 650mg Take 2 Univers en 325 mg 0-20 10-21 tablets by ity of tablet 00:00: 04:59 mouth [place] 00 :00 every 6 Medical (six) Branch hours as needed for Alternate with ibuprofen for pain scale 4-6. ibuprofen 2019-06- No [id number] 600mg Take 3 Univers 200 mg 0-20 10-21 tablets by ity of tablet 00:00: 04:59 mouth [place] 00 :00 every 6 Medical (six) Branch hours as needed (Alternate with acetaminop hen for pain). acetaminoph 2019-06 No [id number] 650mg Take 2 Univers en 325 mg 0-20 10-21 tablets by ity of tablet 00:00: 04:59 mouth [place] 00 :00 every 6 Medical (six) Branch hours as needed for Alternate with ibuprofen for pain scale 4-6. ibuprofen 2019-06 No [id number] 600mg Take 3 Univers 200 mg 0-20 10-21 tablets by ity of tablet 00:00: 04:59 mouth [place] 00 :00 every 6 Medical (six) Branch hours as needed (Alternate with acetaminop hen for pain). acetaminoph 2019-06- No [id number] 650mg Take 2 Univers en 325 mg 0-20 10-21 tablets by ity of tablet 00:00: 04:59 mouth [place] 00 :00 every 6 Medical (six) Branch hours as needed for Alternate with ibuprofen for pain scale 4-6. ibuprofen 2019-06 No [id number] 600mg Take 3 Univers 200 mg 0-20 10-21 tablets by ity of tablet 00:00: 04:59 mouth [place] 00 :00 every 6 Medical (six) Branch hours as needed (Alternate with acetaminop hen for pain). acetaminoph 2019-06- No [id number] 650mg Take 2 Univers en 325 mg 0-20 10-21 tablets by ity of tablet 00:00: 04:59 mouth [place] 00 :00 every 6 Medical (six) Branch hours as needed for Alternate with ibuprofen for pain scale 4-6. ibuprofen 2019-06- No [id number] 600mg Take 3 Univers 200 mg 0-20 10-21 tablets by ity of tablet 00:00: 04:59 mouth [place] 00 :00 every 6 Medical (six) Branch hours as needed (Alternate with acetaminop hen for pain). acetaminoph 2019-06- No [id number] 650mg Take 2 Univers en 325 mg 0-20 10-21 tablets by ity of tablet 00:00: 04:59 mouth [place] 00 :00 every 6 Medical (six) Branch hours as needed for Alternate with ibuprofen for pain scale 4-6. ibuprofen 2019-06- No [id number] 600mg Take 3 Univers 200 mg 0-20 10-21 tablets by ity of tablet 00:00: 04:59 mouth [place] 00 :00 every 6 Medical (six) Branch hours as needed (Alternate with acetaminop hen for pain). acetaminoph 2019-06- No [id number] 650mg Take 2 Univers en 325 mg 0-20 10-21 tablets by ity of tablet 00:00: 04:59 mouth [place] 00 :00 every 6 Medical (six) Branch hours as needed for Alternate with ibuprofen for pain scale 4-6. ibuprofen 2019-06- No [id number] 600mg Take 3 Univers 200 mg 0-20 10-21 tablets by ity of tablet 00:00: 04:59 mouth [place] 00 :00 every 6 Medical (six) Branch hours as needed (Alternate with acetaminop hen for pain). ibuprofen 2019-06- No [id number] 600mg Take 3 Univers 200 mg 0-20 10-21 tablets by ity of tablet 00:00: 04:59 mouth [place] 00 :00 every 6 Medical (six) Branch hours as needed (Alternate with acetaminop hen for pain). ibuprofen 2019-06- No [id number] 600mg Take 3 Univers 200 mg 0-20 10-21 tablets by ity of tablet 00:00: 04:59 mouth [place] 00 :00 every 6 Medical (six) Branch hours as needed (Alternate with acetaminop hen for pain). ibuprofen 2019-06 No [id number] 600mg Take 3 Univers 200 mg 0-20 10-21 tablets by ity of tablet 00:00: 04:59 mouth [place] 00 :00 every 6 Medical (six) Branch hours as needed (Alternate with acetaminop hen for pain). acetaminoph 2019-06 No [id number] 650mg Take 2 Univers en 325 mg 0-20 05-30 tablets by ity of tablet 00:00: 00:00 mouth [place] 00 :00 every 6 Medical (six) Branch hours as needed for Alternate with ibuprofen for pain scale 4-6. ALPRAZolam 2019-06 Yes .25mg 0.25 mg, Un sushant (XANAX) 0-19 Oral, BID, ity of tablet 0.25 01:00: First dose [place] mg 00 on [facility] 04/12/20 Branch at 2000, Until Discontinu ed, Routine ziprasidone 2019-06- No 20mg 20 mg, Uni vers (GEODON) 0-18 10-25 Intramuscu ity of injection 18:20: 18:19 lar, [place] 20 mg 44 :44 Q6HPRN, Medical Starting Branch [facility] 04/12/20 at 1320, Until [place] 04/19/20 at 1319, Routine, Agitation carBAMazepi 2019-06 Yes 200mg 200 mg, Un sushant ne 0-18 Oral, ity of (TEGRETOL) 03:00: Q12H, [place] tablet 200 00 First dose Med ical mg on [facility] Branch 04/11/20 at 2200, Until Discontinu ed, [...] as 5) 5-325 mg 00 :00 dose, Sat Med ical tablet 1 04/11/20 Branch tablet at 1830, Routine omeprazole 2019-06 Yes 20mg 20 mg, Unive rs (PRILOSEC) 0-17 Oral, ity of capsule 20 17:15: DAILY, [place] mg 00 First dose Medical on [facility] Branch 04/11/20 at 1215, Until Discontinu ed, Routine levothyroxi 2019-06 Yes 100ug 100 mcg, U nivers ne 0-17 Oral, ity of (SYNTHROID) 17:15: QAM-0600, [place] tablet 100 00 First dose Med ical mcg on [facility] Branch 04/11/20 at 1215, Until Discontinu ed, Routine D5W 0.45% 2019-06- No IV Univers NaCl 004-13 Infusion, ity of (1/2NS) 1 L 17:15: 13:57 at 125 V[place]al as + KCL 20 00 :05 mL/hr, Medical mEq CONTINUOUS Branch , Starting 04/11/20 at 1215, Until 04/13/20 at 0857, Routine acetaminoph 2019-06 Yes 650mg 650 mg, Un sushant en 0-17 Oral, ity of (TYLENOL) 17:04: Q6HPRN, [place] tablet 650 27 Starting Medic al mg Sat Branch 04/11/20 at 1204, Until Discontinu ed, Routine, Pain (scale 1-3) docusate 2019-06 Yes 100mg 100 mg, Unive rs (COLACE) 0-17 Oral, ity of capsule 100 14:00: DAILY, [place] mg 00 First dose Medical on [facility] Branch 04/11/20 at 0900, Until Discontinu ed, Routine iohexol 2019-06 2020- No 120mL 120 mL, Unive rs (OMNIPAQUE 0-17 04-11 Intravenou it y of 350 12:33: 12:35 s, ONCE, 1 [place] BULK-100 00 :00 dose, Sat Medica l mL) 04/11/20 Branch injection at 0745, 120 mL Routine lactated 2019-06 2020- No 1000mL at 999 Univ ers ringers IV 0-17 10-17 mL/hr, ity of infusion 12:00: 14:11 1,000 mL, V[place]al as 1,000 mL 00 :00 IV Medical Infusion, Branch ONCE, 1 dose, 04/11/20 at 0700, STAT LORazepam 2019-06- No 1mg 1 mg, Univer s (ATIVAN) 0-17 04-11 Oral, ity of tablet 1 mg 05:30: 04:28 [place]CE, 1 [place] :[place] dose, Sat Medical 04/11/20 Branch at 0030, RAJANI ketorolac 2019-06- No 15mg 15 mg, Unive rs (TORADOL) 0-04-11 Slow IV ity of injection 03:45: 02:59 Push, [place] 15 mg 00 :00 ONCE, 1 Medical dose, Fri Branch 04/10/20 at 2245, Routine
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 clonazePAM 2019-06 Yes [id number] 1mg Take 1 U nivers (KLONOPIN) 0-17 tablet by ity of 1 mg tablet 00:00: mouth 3 [place] 00 (three) Medical times Branch daily as needed (anxiety). clonazePAM 2019-06 Yes [id number] 1mg Take 1 U nivers (KLONOPIN) 0-17 tablet by ity of 1 mg tablet 00:00: mouth 3 [place] as 00 (three) Medical times Branch daily as needed (anxiety). clonazePAM 2019- Yes [id number] 1mg Take 1 U nivers (KLONOPIN) 0-17 tablet by ity of 1 mg tablet 00:00: mouth 3 [place] 00 (three) Medical times Branch daily as needed (anxiety). clonazePAM 2019- Yes [id number] 1mg Take 1 U nivers (KLONOPIN) 0-17 tablet by ity of 1 mg tablet 00:00: mouth 3 [place] as 00 (three) Medical times Branch daily as needed (anxiety). clonazePAM 2019- Yes [id number] 1mg Take 1 U nivers (KLONOPIN) 0-17 tablet by ity of 1 mg tablet 00:00: mouth 3 [place] 00 (three) Medical times Branch daily as needed (anxiety). clonazePAM 2019-06 Yes [id number] 1mg Take 1 U nivers (KLONOPIN) 0-17 tablet by ity of 1 mg tablet 00:00: mouth 3 [place] as 00 (three) Medical times Branch daily as needed (anxiety). clonazePAM 2019-06 Yes [id number] 1mg Take 1 U nivers (KLONOPIN) 0-17 tablet by ity of 1 mg tablet 00:00: mouth 3 [place] 00 (three) Medical times Branch daily as needed (anxiety). clonazePAM 2019-06 Yes [id number] 1mg Take 1 U nivers (KLONOPIN) 0-17 tablet by ity of 1 mg tablet 00:00: mouth 3 [place] as 00 (three) Medical times Branch daily as needed (anxiety). ibuprofen 2019- No 800mg 800 mg, Uni vers (IBU) 07-13 Oral, ity of tablet 800 04:15: 03:07 ONCE, 1 [place] mg 00 :00 dose, Fri Medical 07/12/19 at Branch 2215, RAJANI HYDROcodone 2019- No 1{tbl} 1 tablet, Univers -acetaminop 07-13 Oral, ity of hen (NORCO 04:15: 03:07 ONCE, 1 [place] as 5) 5-325 mg 00 :00 dose, Fri Med ical tablet 1 07/12/19 at [facility] tablet 2215, RAJANI ondansetron 2019- No 4mg [...] Medical 07/12/19 at Branch 2130, STAT iohexol 2020- No 120mL 120 mL, Unive rs (OMNIPAQUE 07-13 Intravenou it y of 350 00:45: 00:45 s, ONCE, 1 [place] BULK-100 00 :00 dose, Fri Medica l mL) 07/12/19 at Branch injection 1900, 120 mL Routine NaCl 0.9% 2019-0 2020- No 1000mL at 999 Uni vers (NS) bolus -17 01-18 mL/hr, ity of infusion 21:45: 03:05 1,000 mL, Vishal as 1,000 mL 00 :00 IV Medical Infusion, Branch ONCE, 1 dose, 07/12/19 at 1545, RAJANI HYDROcodone 2019-0 Yes [id number] 1{tbl} Take 1 Univers -acetaminop 1-17 tablet by ity of hen 5-325 00:00: mouth [place] mg tablet 00 every 6 Medical (six) Branch hours as needed for Pain (scale 1-3). HYDROcodone 2019-0 Yes [id number] 1{tbl} Take 1 Univers -acetaminop 1-17 tablet by ity of hen 5-325 00:00: mouth [place] mg tablet 00 every 6 Medical (six) Branch hours as needed for Pain (scale 1-3). HYDROcodone 2019-0 Yes [id number] 1{tbl} Take 1 Univers -acetaminop 1-17 tablet by ity of hen 5-325 00:00: mouth [place] mg tablet 00 every 6 Medical (six) Branch hours as needed for Pain (scale 1-3). HYDROcodone 2019-0 Yes [id number] 1{tbl} Take 1 Univers -acetaminop 1-17 tablet by ity of hen 5-325 00:00: mouth [place] mg tablet 00 every 6 Medical (six) Branch hours as needed for Pain (scale 1-3). HYDROcodone 2019-0 Yes [id number] 1{tbl} Take 1 Univers -acetaminop 1-17 tablet by ity of hen 5-325 00:00: mouth [place] mg tablet 00 every 6 Medical (six) Branch hours as needed for Pain (scale 1-3). HYDROcodone 2020-0 Yes [id number] 1{tbl} Take 1 Univers -acetaminop 1-17 tablet by ity of hen 5-325 00:00: mouth [place] mg tablet 00 every 6 Medical (six) Branch hours as needed for Pain (scale 1-3). HYDROcodone 2019-0 Yes [id number] 1{tbl} Take 1 Univers -acetaminop 1-17 tablet by ity of hen 5-325 00:00: mouth [place] mg tablet 00 every 6 Medical (six) Branch hours as needed for Pain (scale 1-3). HYDROcodone Yes [id number] 1{tbl} Take 1 Univers -acetaminop 1-17 tablet by ity of hen 5-325 00:00: mouth [place] mg tablet 00 every 6 Medical (six) Branch hours as needed for Pain (scale 1-3). HYDROcodone Yes [id number] 1{tbl} Take 1 Univers -acetaminop 1-17 tablet by ity of hen 5-325 00:00: mouth [place] mg tablet 00 every 6 Medical (six) Branch hours as needed for Pain (scale 1-3). HYDROcodone Yes [id number] 1{tbl} Take 1 Univers -acetaminop 1-17 tablet by ity of hen 5-325 00:00: mouth [place] mg tablet 00 every 6 Medical (six) Branch hours as needed for Pain (scale 1-3). HYDROcodone Yes [id number] 1{tbl} Take 1 Univers -acetaminop 1-17 tablet by ity of hen 5-325 00:00: mouth [place] mg tablet 00 every 6 Medical (six) Branch hours as needed for Pain (scale 1-3). HYDROcodone Yes [id number] 1{tbl} Take 1 Univers -acetaminop 1-17 tablet by ity of hen 5-325 00:00: mouth [place] mg tablet 00 every 6 Medical (six) Branch hours as needed for Pain (scale 1-3). HYDROcodone Yes [id number] 1{tbl} Take 1 Univers -acetaminop 1-17 tablet by ity of hen 5-325 00:00: mouth [place] mg tablet 00 every 6 Medical (six) Branch hours as needed for Pain (scale 1-3). levothyroxi Yes 100ug Take 100 U nivers ne 100 mcg 7-13 mcg by ity of tablet 06:37: mouth [place] 32 daily. Medical Branch meloxicam 2018- Yes 7.5mg Take 7.5 Uni vers 7.5 mg 7-13 mg by ity of tablet 06:37: mouth [place] 32 daily. Medical Branch metoprolol 0 Yes 25mg Take 25 mg U nivers tartrate 25 7-13 by mouth ity of mg tablet 06:37: daily. [place] [address] Medical Branch omeprazole 2018-0 Yes 20mg Take 20 mg U nivers 20 mg 7-13 by mouth ity of capsule 06:37: daily. [place] [address] Medical Branch pravastatin Yes 20mg Take 20 mg Univers 20 mg 7-13 by mouth ity of tablet 06:37: at [place] [address] bedtime. Medical Branch triamcinolo Yes .1% Apply 0.1 U nivers ne 7-13 % to ity of acetonide/l 06:37: area(s) 2 [place] .s.b. 32 (two) Medical (ARISTOCORT times Branch A TOPICAL) daily. levothyroxi 0 Yes 100ug Take 100 U nivers ne 100 mcg 7-13 mcg by ity of tablet 06:37: mouth [place] [address] daily. Medical Branch meloxicam Yes 7.5mg Take 7.5 Uni vers 7.5 mg 7-13 mg by ity of tablet 06:37: mouth [place] daily. Medical Branch metoprolol Yes 25mg Take 25 mg U nivers tartrate 25 7-13 by mouth ity of mg tablet 06:37: daily. [place] [address] Medical Branch omeprazole Yes 20mg Take 20 mg U nivers 20 mg 7-13 by mouth ity of capsule 06:37: daily. [place] [address] Medical Branch pravastatin Yes 20mg Take 20 mg Univers 20 mg 7-13 by mouth ity of tablet 06:37: at [place] [address] bedtime. Medical Branch triamcinolo Yes .1% Apply 0.1 U nivers ne 7-13 % to ity of acetonide/l 06:37: area(s) 2 [place] .s.b. 32 (two) Medical (ARISTOCORT times Branch A TOPICAL) daily. levothyroxi 0 Yes 100ug Take 100 U nivers ne 100 mcg 7-13 mcg by ity of tablet 06:37: mouth [place] 32 daily. Medical Branch meloxicam 0 Yes 7.5mg Take 7.5 Uni vers 7.5 mg 7-13 mg by ity of tablet 06:37: mouth [place] 32 daily. Medical Branch metoprolol Yes 25mg Take 25 mg U nivers tartrate 25 7-13 by mouth ity of mg tablet 06:37: daily. [place] [address] Medical Branch omeprazole Yes 20mg Take 20 mg U nivers 20 mg 7-13 by mouth ity of capsule 06:37: daily. [place] [address] Medical Branch pravastatin Yes 20mg Take 20 mg Univers 20 mg 7-13 by mouth ity of tablet 06:37: at [place] [address] bedtime. Medical Branch triamcinolo Yes .1% Apply 0.1 U nivers ne 7-13 % to ity of acetonide/l 06:37: area(s) 2 [place] .s.b. 32 (two) Medical (ARISTOCORT times Branch A TOPICAL) daily. levothyroxi 0 Yes 100ug Take 100 U nivers ne 100 mcg 7-13 mcg by ity of tablet 06:37: mouth [place] [address] daily. Medical Branch meloxicam Yes 7.5mg Take 7.5 Uni vers 7.5 mg 7-13 mg by ity of tablet 06:37: mouth [place] [address] daily. Medical Branch metoprolol Yes 25mg Take 25 mg U nivers tartrate 25 7-13 by mouth ity of mg tablet 06:37: daily. [place] [address] Medical Branch omeprazole Yes 20mg Take 20 mg U nivers 20 mg 7-13 by mouth ity of capsule 06:37: daily. [place] [address] Medical Branch pravastatin Yes 20mg Take 20 mg Univers 20 mg 7-13 by mouth ity of tablet 06:37: at [place] [address] bedtime. Medical Branch triamcinolo Yes .1% Apply 0.1 U nivers ne 7-13 % to ity of acetonide/l 06:37: area(s) 2 [place] .s.b. 32 (two) Medical (ARISTOCORT times Branch A TOPICAL) daily. levothyroxi 2018-0 Yes 100ug Take 100 U nivers ne 100 mcg 7-13 mcg by ity of tablet 06:37: mouth [place] daily. Medical Branch meloxicam Yes 7.5mg Take 7.5 Uni vers 7.5 mg 7-13 mg by ity of tablet 06:37: mouth [place] 32 daily. Medical Branch metoprolol 2019-0 Yes 25mg Take 25 mg U nivers tartrate 25 7-13 by mouth ity of mg tablet 06:37: daily. [place] [address] Medical Branch omeprazole 2019-0 Yes 20mg Take 20 mg U nivers 20 mg 7-13 by mouth ity of capsule 06:37: daily. [place] [address] Medical Branch pravastatin 2019- Yes 20mg Take 20 mg Univers 20 mg 7-13 by mouth ity of tablet 06:37: at [place] [address] bedtime. Medical Branch triamcinolo Yes .1% Apply 0.1 U nivers ne 7-13 % to ity of acetonide/l 06:37: area(s) 2 [place] .s.b. 32 (two) Medical (ARISTOCORT times Branch A TOPICAL) daily. levothyroxi 2019-0 Yes 100ug Take 100 U nivers ne 100 mcg 7-13 mcg by ity of tablet 06:37: mouth [place] [address] daily. Medical Branch meloxicam 2019-0 Yes 7.5mg Take 7.5 Uni vers 7.5 mg 7-13 mg by ity of tablet 06:37: mouth [place] [address] daily. Medical Branch metoprolol 2018-0 Yes 25mg Take 25 mg U nivers tartrate 25 7-13 by mouth ity of mg tablet 06:37: daily. [place] [address] Medical Branch omeprazole 2018-0 Yes 20mg Take 20 mg U nivers 20 mg 7-13 by mouth ity of capsule 06:37: daily. [place] [address] Medical Branch pravastatin 2018-0 Yes 20mg Take 20 mg Univers 20 mg 7-13 by mouth ity of tablet 06:37: at [place] [address] bedtime. Medical Branch triamcinolo Yes .1% Apply 0.1 U nivers ne 7-13 % to ity of acetonide/l 06:37: area(s) 2 [place] .s.b. 32 (two) Medical (ARISTOCORT times Branch A TOPICAL) daily. gabapentin 2019-0 Yes 300mg Take 300 Un sushant 300 mg 7-13 mg by ity of capsule 06:27: mouth 2 [place] [id number] (two) Medical times Branch daily. gabapentin 2019-0 Yes 300mg Take 300 Un sushant 300 mg 7-13 mg by ity of capsule 06:27: mouth 2 [place] 56 (two) Medical times Branch daily. gabapentin 2019-0 Yes 300mg Take 300 Un sushant 300 mg 7-13 mg by ity of capsule 06:27: mouth 2 [place] 56 (two) Medical times Branch daily. gabapentin 2019-0 Yes 300mg Take 300 Un sushant 300 mg 7-13 mg by ity of capsule 06:27: mouth 2 [place] 56 (two) Medical times Branch daily. gabapentin 2019-0 Yes 300mg Take 300 Un sushant 300 mg 7-13 mg by ity of capsule 06:27: mouth 2 [place] 56 (two) Medical times Branch daily. gabapentin 2019-0 Yes 300mg Take 300 Un sushant 300 mg 7-13 mg by ity of capsule 06:27: mouth 2 [place] 56 (two) Medical times Branch daily. Vital Signs Vital Name Observation Time Observation Value Comments Source Heart rate 2021-09-22 03:30:00 87 /min [facility] Respiratory rate 2021-09-22 03:30:00 20 /min [facility] Oxygen saturation in 2021-09-22 03:30:00 100 /min [facility] Arterial blood by [facility] Pulse oximetry Branch Systolic blood 2021-09-22 03:00:00 148 mm[facility]Hg[facility] 2021-09-22 03:00:00 86 mm[Hg] Unive [facility] Body temperature 2021-09-22 01:12:00 36.67 Yamila [facility] Body height 2021-09-22 01:12:00 167.6 cm [facility] Body weight 2021-09-22 01:12:00 72.576 kg [facility] BMI 2021-09-22 01:12:00 25.82 kg/m2 [facility] Systolic blood 2021-03-25 15:30:00 153 mm[Hg] Univer sity [facility] Diastolic blood 2021-03-25 15:30:00 96 mm[Hg] Unive [facility] Heart rate 2021-03-25 15:30:00 100 /min [facility] Respiratory rate 2021-03-25 15:30:00 20 /min [facility] [place] [facility] Oxygen saturation in 2021-03-25 15:30:00 97 /min [facility] Arterial blood by [place] [facility] Pulse oximetry Branch Body temperature 2021-03-25 08:55:00 36.39 Yamila [facility] [place] [facility] Body weight 2021-03-25 08:55:00 81.194 kg [facility] [place] [facility] BMI 2021-03-25 08:55:00 28.89 kg/m2 [facility] [place] [facility] Systolic blood 2020-11-23 17:24:00 104 mm[Hg] Univer sity of pressure [place] [facility] Diastolic blood 2020-11-23 17:24:00 68 mm[Hg] Unive rsity of pressure [place] [facility] Heart rate 2020-11-23 17:24:00 91 /min [facility] [place] [facility] Respiratory rate 2020-11-23 17:24:00 18 /min [facility] [place] [facility] Oxygen saturation in 2020-11-23 17:24:00 97 /min University of Arterial blood by [facility] steve Pulse oximetry Branch Body temperature 2020-11-23 12:24:00 36.94 Yamila [facility] [place] [facility] Body weight 2020-11-23 09:53:00 81.194 kg [facility] [place] [facility] BMI 2020-11-23 09:53:00 28.89 kg/m2 [facility] [place] [facility] Body height 2020-11-22 21:41:00 167.6 cm [facility]i [facility] [place] [facility] Systolic blood 2020-11-23 17:24:00 104 mm[Hg] Univer sity of pressure [place] [facility] Diastolic blood 2020-11-23 17:24:00 68 mm[Hg] Unive rsity of pressure [place] [facility] Heart rate 2020-11-23 17:24:00 91 /min [facility]i [facility] [place] [facility] Respiratory rate 2020-11-23 17:24:00 18 /min Univ ers[facility] [place] [facility] Oxygen saturation in 2020-11-23 17:24:00 97 /min University of Arterial blood by [facility] steve Pulse oximetry Branch Body temperature 2020-11-23 12:24:00 36.94 Yamila [facility] [place] [facility] Body weight 2020-11-23 09:53:00 81.194 kg [facility] [place] [facility] BMI 2020-11-23 09:53:00 28.89 kg/m2 [facility] [place] [facility] Body height 2020-11-22 21:41:00 167.6 cm [facility] [place] [facility] Systolic blood 2020-10-22 10:00:00 149 mm[Hg] Univer sity of pressure [place] [facility] Diastolic blood 2020-10-22 10:00:00 92 mm[Hg] Unive rsity of pressure [place] [facility] Heart rate 2020-10-22 10:00:00 89 /min [facility] [place] [facility] Body temperature 2020-10-22 10:00:00 36.78 Yamila [facility] [place] [facility] Respiratory rate 2020-10-22 10:00:00 16 /min [facility] [place] [facility] Oxygen saturation in 2020-10-22 10:00:00 97 /min University of Arterial blood by [facility] steve Pulse oximetry Branch Body weight 2020-10-22 07:03:00 72.576 kg [facility] [place] [facility] BMI 2020-10-22 07:03:00 25.82 kg/m2 [facility] [place] [facility] Systolic blood 2020-10-22 10:00:00 149 mm[Hg] Univer sity of pressure [place] [facility] Diastolic blood 2020-10-22 10:00:00 92 mm[Hg] Unive rsity of pressure [place] [facility] Heart rate 2020-10-22 10:00:00 89 /min [facility] [place] [facility] Body temperature 2020-10-22 10:00:00 36.78 Yamila [facility] [place] [facility] Respiratory rate 2020-10-22 10:00:00 16 /min [facility] [place] [facility] Oxygen saturation in 2020-10-22 10:00:00 97 /min [facility] of Arterial blood by [place] [facility] Pulse oximetry Branch Body weight 2020-10-22 07:03:00 72.576 kg [facility] [place] [facility] BMI 2020-10-22 07:03:00 25.82 kg/m2 [facility] [place] [facility] Systolic blood 2020-10-20 04:55:00 181 mm[Hg] Univer sity of pressure [place] [facility] Diastolic blood 2020-10-20 04:55:00 109 mm[Hg] Unive rsity of pressure [place] [facility] Heart rate 2020-10-20 04:55:00 126 /min [facility] [place] [facility] Body temperature 2020-10-20 04:55:00 36.72 Yamila [facility] [place] [facility] Respiratory rate 2020-10-20 04:55:00 17 /min [facility] [place] [facility] Body weight 2020-10-20 04:55:00 72.598 kg [facility] [place] [facility] BMI 2020-10-20 04:55:00 25.83 kg/m2 [facility] [place] [facility] Oxygen saturation in 2020-10-20 04:55:00 97 /min [facility] of Arterial blood by [place] [facility] Pulse oximetry Branch Systolic blood 2020-10-20 04:55:00 181 mm[Hg] Univer sity of pressure [place] [facility] Diastolic blood 2020-10-20 04:55:00 109 mm[Hg] Unive rsity of pressure [place] [facility] Heart rate 2020-10-20 04:55:00 126 /min [facility] [place] [facility] Body temperature 2020-10-20 04:55:00 36.72 Yamila [facility] [place] [facility] Respiratory rate 2020-10-20 04:55:00 17 /min [facility] [place] [facility] Body weight 2020-10-20 04:55:00 72.598 kg [facility] [place] [facility] BMI 2020-10-20 04:55:00 25.83 kg/m2 [facility] [place] [facility] Oxygen saturation in 2020-10-20 04:55:00 97 /min [facility] of Arterial blood by [place] [facility] Pulse oximetry Branch Systolic blood 2020-10-15 20:07:00 124 mm[Hg] Univer sity of pressure [place] [facility] Diastolic blood 2020-10-15 20:07:00 72 mm[Hg] Unive rsity of pressure [place] [facility] Heart rate 2020-10-15 20:07:00 97 /min [facility] [place] [facility] Body temperature 2020-10-15 20:07:00 36.83 Yamila [facility] [place] [facility] Respiratory rate 2020-10-15 20:07:00 17 /min [facility] [place] [facility] Oxygen saturation in 2020-10-15 20:07:00 96 /min [facility] of Arterial blood by [place] [facility] Pulse oximetry Branch Body weight 2020-10-15 12:34:00 68.04 kg [facility] [place] [facility] BMI 2020-10-15 12:34:00 24.21 kg/m2 [facility] [place] [facility] Systolic blood 2020-10-15 20:07:00 124 mm[Hg] Univer sity of pressure [place] [facility] Diastolic blood 2020-10-15 20:07:00 72 mm[Hg] Unive rsity of pressure [place] [facility] Heart rate 2020-10-15 20:07:00 97 /min [facility] [place] [facility] Body temperature 2020-10-15 20:07:00 36.83 Yamila [facility] [place] [facility] Respiratory rate 2020-10-15 20:07:00 17 /min [facility] [place] [facility] Oxygen saturation in 2020-10-15 20:07:00 96 /min [facility] of Arterial blood by [facility] steve Pulse oximetry Branch Body weight 2020-10-15 12:34:00 68.04 kg [facility] [place] [facility] BMI 2020-10-15 12:34:00 24.21 kg/m2 [facility] [place] [facility] Systolic blood 2020-10-13 15:00:00 145 mm[Hg] Univer sity of pressure [place] [facility] Diastolic blood 2020-10-13 15:00:00 102 mm[Hg] Unive rsity of pressure [place] [facility] Heart rate 2020-10-13 15:00:00 115 /min [facility] [place] [facility] Respiratory rate 2020-10-13 15:00:00 22 /min [facility] [place] [facility] Oxygen saturation in 2020-10-13 15:00:00 100 /min [facility] Arterial blood by [place] [facility] Pulse oximetry Branch Body temperature 2020-10-13 09:40:00 37 Yamila [facility] [place] [facility] Body weight 2020-10-13 09:40:00 68.04 kg [facility] [place] [facility] BMI 2020-10-13 09:40:00 24.21 kg/m2 [facility] [place] [facility] Systolic blood 2020-10-13 15:00:00 145 [...] 100 /min [facility] Arterial blood by [place] [facility] Pulse oximetry Branch Body temperature 2020-10-13 [...] 100 /min [facility] Arterial blood by [place] [facility] Pulse oximetry Branch Body temperature 2020-09-17 02:45:00 37.17 Yamila [facility] [place] [facility] Body height 2020-09-17 02:45:00 167.6 cm [facility] [place] [facility] Body weight 2020-09-17 02:45:00 65.772 kg [facility] [place] [facility] BMI 2020-09-17 02:45:00 23.40 kg/m2 [...] 100 /min [facility] Arterial blood by [place] [facility] Pulse oximetry Branch Body temperature 2020-09-17 02:45:00 37.17 Yamila [facility] [place] [facility] Body height 2020-09-17 02:45:00 167.6 cm [facility] [place] [facility] Body weight 2020-09-17 02:45:00 65.772 kg [facility] [place] [facility] BMI 2020-09-17 02:45:00 23.40 kg/m2 [facility] [place] [facility] Systolic blood 2020-09-06 11:02:00 146 mm[Hg] Univer sity of pressure [place] [facility] Diastolic blood 2020-09-06 11:02:00 93 mm[Hg] Unive rsity of pressure [place] [facility] Heart rate 2020-09-06 11:02:00 97 /min [facility] [place] [facility] Respiratory rate 2020-09-06 11:02:00 21 /min [facility] [place] [facility] Oxygen saturation in 2020-09-06 11:02:00 99 /min [facility] Arterial blood by [place] [facility] Pulse oximetry Branch Body temperature 2020-09-06 10:31:00 36.17 Yamila [facility] [place] [facility] Body height 2020-09-06 09:39:00 167.6 cm [facility] [place] [facility] Body weight 2020-09-06 09:39:00 68.04 kg [facility] [place] [facility] BMI 2020-09-06 09:39:00 24.21 kg/m2 [facility] [place] [facility] Systolic blood 2020-09-06 11:02:00 146 mm[Hg] Univer sity of pressure [place] [facility] Diastolic blood 2020-09-06 11:02:00 93 mm[Hg] Unive rsity of pressure [place] [facility] Heart rate 2020-09-06 11:02:00 97 /min [facility] [place] [facility] Respiratory rate 2020-09-06 11:02:00 21 /min [facility] [place] [facility] Oxygen saturation in 2020-09-06 11:02:00 99 /min [facility] Arterial blood by [place] [facility] Pulse oximetry Branch Body temperature 2020-09-06 10:31:00 36.17 Yamila [facility] [place] [facility] Body height 2020-09-06 09:39:00 167.6 cm [facility] [place] [facility] Body weight 2020-09-06 09:39:00 68.04 kg [facility] [place] [facility] BMI 2020-09-06 09:39:00 24.21 kg/m2 [facility] [place] [facility] Systolic blood 2020-09-02 03:00:00 171 mm[Hg] Univer sity of pressure [place] [facility] Diastolic blood 2020-09-02 03:00:00 102 mm[Hg] Unive rsity of pressure [place] [facility] Heart rate 2020-09-02 03:00:00 100 /min [facility] [place] [facility] Body temperature 2020-09-02 03:00:00 36 Yamila [facility] [place] [facility] Respiratory rate 2020-09-02 03:00:00 17 /min [facility] [place] [facility] Oxygen saturation in 2020-09-02 03:00:00 98 /min [facility] Arterial blood by [place] [facility] Pulse oximetry Branch Body weight 2020-09-01 23:02:00 65.772 kg [facility] [place] [facility] BMI 2020-09-01 23:02:00 23.40 kg/m2 [facility] [place] [facility] Systolic blood 2020-09-02 03:00:00 171 mm[Hg] Univer sity of pressure [place] [facility] Diastolic blood 2020-09-02 03:00:00 102 mm[Hg] Unive rsity of pressure [place] [facility] Heart rate 2020-09-02 03:00:00 100 /min [facility] [place] [facility] Body temperature 2020-09-02 03:00:00 36 Yamila [facility] [place] [facility] Respiratory rate 2020-09-02 03:00:00 17 /min [facility] [place] [facility] Oxygen saturation in 2020-09-02 03:00:00 98 /min [facility] of Arterial blood by [employer] steve Pulse oximetry Branch Body weight 2020-09-01 23:02:00 65.772 kg [facility] [place] [facility] BMI 2020-09-01 23:02:00 23.40 kg/m2 [facility] [place] [facility] Systolic blood 2020-04-14 13:08:00 143 mm[Hg] Univer sity of pressure [place] [facility] Diastolic blood 2020-04-14 13:08:00 90 mm[Hg] Unive rsity of pressure [place] [facility] Heart rate 2020-04-14 13:08:00 84 /min [facility] [place] [facility] Body temperature 2020-04-14 13:08:00 36.28 Yamila [facility] [place] [facility] Respiratory rate 2020-04-14 13:08:00 16 /min [facility] [place] [facility] Oxygen saturation in 2020-04-14 13:08:00 99 /min [facility] Arterial blood by [facility] Pulse oximetry Branch Body weight 2020-04-11 11:56:00 63.504 kg [facility] [place] [facility] BMI 2020-04-11 11:56:00 22.60 kg/m2 [facility] [place] [facility] Body height 2020-04-11 11:55:00 167.6 cm [facility] [place] Medical [facility] Systolic blood 2020-04-11 05:30:00 148 mm[Hg] Univer [facility] of [facility] [place] [facility] Diastolic blood 2020-04-11 05:30:00 88 mm[Hg] Unive rsity of pressure [place] [facility] Heart rate 2020-04-11 05:30:00 89 /min [facility] [place] [facility] Respiratory rate 2020-04-11 05:30:00 26 /min [facility] [place] [facility] Oxygen saturation in 2020-04-11 05:30:00 100 /min University of Arterial blood by [facility] Pulse oximetry Branch Body temperature 2020-04-11 04:03:00 37.17 Yamila [facility] [place] [facility] Body weight 2020-04-11 04:03:00 63.504 kg [facility] [place] [facility] BMI 2020-04-11 04:03:00 22.60 kg/m2 [facility] [place] [facility] Systolic blood 2020-04-11 02:59:52 126 mm[Hg] Univer [facility]ity of pressure [place] [facility] Diastolic blood 2020-04-11 02:59:52 94 mm[Hg] Unive rsity of pressure [place] [facility] Heart rate 2020-04-11 02:59:52 104 /min [facility] [place] [facility] Body temperature 2020-04-11 02:59:52 36.56 Yamila [facility] [place] [facility] Respiratory rate 2020-04-11 02:59:52 19 /min [facility] [place] [facility] Oxygen saturation in 2020-04-11 02:59:52 98 /min University of Arterial blood by [place] [facility] Pulse oximetry Branch Body weight 2020-04-11 01:37:00 63.504 kg [facility] [place] [facility] BMI 2020-04-11 01:37:00 22.60 kg/m2 [facility] [place] [facility] Systolic blood 2020-04-10 04:53:11 150 mm[Hg] [facility] of pressure [place] [facility] Diastolic blood 2020-04-10 04:53:11 101 mm[Hg] Unive rsity of pressure [facility] [place] [facility] Heart rate 2020-04-10 04:53:11 121 /min [facility] [place] [facility] Respiratory rate 2020-04-10 04:53:11 16 /min [facility] [place] [facility] Oxygen saturation in 2020-04-10 04:53:11 99 /min University of Arterial blood by [facility] steve Pulse oximetry Branch Body temperature 2020-04-10 04:00:00 36.44 Yamila [facility] [place] [facility] Body weight 2020-04-10 04:00:00 68.04 kg [facility] [place] [facility] BMI 2020-04-10 04:00:00 24.21 kg/m2 [facility] [place] [facility] Systolic blood 2020-02-25 18:30:00 164 mm[Hg] Univer [facility]ity of pressure [place] [facility] Diastolic blood 2020-02-25 18:30:00 112 mm[Hg] Unive rsity of pressure [place] [facility] Heart rate 2020-02-25 18:30:00 107 /min [facility] [place] [facility] Respiratory rate 2020-02-25 18:30:00 23 /min [facility] [place] [facility] Oxygen saturation in 2020-02-25 18:30:00 98 /min University of Arterial blood by [facility] steve Pulse oximetry Branch Body temperature 2020-02-25 18:20:00 36.89 Yamila [facility] [place] [facility] Body height 2020-02-25 18:20:00 167.6 cm [facility] [place] [facility] Body weight 2020-02-25 18:20:00 68.04 kg [facility] [place] [facility] BMI 2020-02-25 18:20:00 24.21 kg/m2 [facility] [place] [facility] Systolic blood 2019-07-13 03:12:00 125 mm[Hg] Univer sity of pressure [facility] Diastolic blood 2019-07-13 03:12:00 81 mm[Hg] Unive rsity of pressure [facility] Heart rate 2019-07-13 03:12:00 75 /min [facility] Body temperature 2019-07-13 03:12:00 36.72 Yamila [facility] Respiratory rate 2019-07-13 03:12:00 18 /min [facility] Oxygen saturation in 2019-07-13 03:12:00 99 /min [facility] Arterial blood by [facility] Pulse oximetry [place] Body weight 2019-07-12 21:01:00 72.576 kg [facility] BMI 2019-07-12 21:01:00 25.82 kg/m2 [facility] Procedures Procedure Date / Time Performing Clinician Source Performed XR CHEST 1 VW 2021-09-22 01:58:50 Georgia Estrada [facility] MAGNESIUM 2021-09-22 01:43:00 Georgia Estrada [facility] TROPONIN I 2021-09-22 01:43:00 Georgia Estrada [facility] COMP. METABOLIC PANEL 2021-09-22 01:43:00 Georgia Estrada [facility] ([id number]) [facility] POCT TEST 2021-09-22 01:43:00 Georgia Estrada [facility] N-TERMINAL PRO-BNP 2021-09-22 01:43:00 Georgia Estrada [facility] y [facility] CBC WITH DIFF 2021-09-22 01:42:00 Georgia Estrada [facility] URINALYSIS 2021-09-22 01:42:00 Georgia Estrada [facility] NOTICE OF PRIVACY 2021-09-22 01:07:45 Doctor Unassigned, No Univ [facility] PRACTICES Name [facility] CONSENT/REFUSAL FOR 2021-09-22 01:06:43 [facility]igned, No [facility] Name Medical [place] CT CHEST PULMONARY 2021-03-25 11:45:06 Arnold Coughlin [facility] ANGIOGRAM Medical Branch TROPONIN I 2021-03-25 11:31:00 Arnold Coughlin [facility] D-DIMER 2021-03-25 10:22:00 Arnold Coughlin [facility] LIPASE 2021-03-25 09:35:00 Arnold Coughlin [facility] TROPONIN I 2021-03-25 09:35:00 Arnold Coughlin [facility] COMP. METABOLIC PANEL 2021-03-25 09:35:00 Arnold Coughlin [facility] ([id number]) Medical Branch CBC WITH DIFF 2021-03-25 09:35:00 Arnold Coughlin [facility] HB ECG ROUTINE & RHYTHM 2021-03-25 08:52:04 Arnold Coughlin [facility] ACTIVATED PARTIAL 2020-11-23 10:36:00 Monique [facility] MAGNESIUM 2020-11-23 05:05:00 [facility] BASIC METABOLIC PANEL 2020-11-23 05:05:00 [facility] (NA, K, CL, CO2, Medical Branch GLUCOSE, BUN, CREATININE, CA) CBC WITH DIFF 2020-11-23 05:05:00 [facility] ACTIVATED PARTIAL 2020-11-23 05:05:00 [facility] CT ANGIOGRAM CHEST 2020-11-22 20:21:07 [facility] POCT TEST 2020-11-22 19:43:00 Rosmery Mai [facility] TROPONIN I 2020-11-22 19:38:00 [facility] FREE T4 2020-11-22 19:38:00 [facility] THYROID STIMULATING 2020-11-22 19:38:00 [facility] HORMONE [facility] LIPID PANEL 2020-11-22 19:38:00 Monique [facility] ([id number])(TOTAL Medical Branch CHOLESTEROL, TRIGLYCERIDES, HDL) COVID-19 (ID NOW RAPID 2020-11-22 19:18:00 Carmen Lott [facility] TESTING) [facility] [place] TROPONIN I 2020-11-22 14:45:00 SergeiSadi chambersCindyChris [facility] XR CHEST 1 VW 2020-11-22 12:41:09 Miguelito Salter [facility] URINE DRUG (IMMUNOASSAY) 2020-11-22 11:53:00 Miguelito Salter [facility] SCREEN URINALYSIS 2020-11-22 11:53:00 Miguelito Salter [facility] CK (CREATINE KINASE) + 2020-11-22 11:52:00 Miguelito [facility] MB [facility] LIPASE 2020-11-22 11:52:00 Miguelito Salter [facility] TROPONIN I 2020-11-22 11:52:00 Miguelito Salter [facility] COMP. METABOLIC PANEL 2020-11-22 11:52:00 Miguelito Salter [facility] ([id number]) Medical Branch ETHANOL 2020-11-22 11:52:00 Miguelito Salter [facility] SERUM DRUG (IMMUNOASSAY) 2020-11-22 11:52:00 Miguelito Salter [facility] SCREEN CBC WITH DIFF 2020-11-22 11:52:00 Miguelito Salter [facility] GLYCOSYLATED HEMOGLOBIN 2020-11-22 11:52:00 [facility] D-DIMER 2020-11-22 11:52:00 Miguelito Salter [facility] POCT TEST 2020-10-22 10:12:00 Chaka Steinberg [facility] URINE DRUG (IMMUNOASSAY) 2020-10-22 10:10:00 Chaka Steinberg [facility] SCREEN URINALYSIS 2020-10-22 10:10:00 Chaka Steinberg [facility] TROPONIN I 2020-10-22 09:34:00 Chaka Steinberg [facility] CT ABDOMEN PELVIS W 2020-10-22 08:02:55 Chaka Steinberg [facility] CONTRAST Medical Branch XR CHEST 1 VW 2020-10-22 07:40:59 Chaka Steinberg [facility] COVID-19 (ID NOW RAPID 2020-10-22 07:38:00 [facility] TESTING) Medical Branch LIPASE 2020-10-22 07:37:00 Chaka Steinberg [facility] TROPONIN I 2020-10-22 07:37:00 Cece Steinbergian Robin [facility] HEPATIC FUNCTION PANEL 2020-10-22 07:37:00 Chaka [facility]berg [facility] ([id number]) (ALB,T.PRO,BILI Medical Branch T,BU/BC,ALT,AST,ALK PHOS) BASIC METABOLIC PANEL 2020-10-22 07:37:00 Chaka Steinberg [facility] (NA, K, CL, CO2, Medical Branch GLUCOSE, BUN, CREATININE, CA) ETHANOL 2020-10-22 07:37:00 Cece Steinbergian Robin [facility] CBC WITH DIFF 2020-10-22 07:37:00 [facility] 2020-10-15 14:58:00 Sergei [facility] LIPASE 2020-10-15 14:58:00 Sergei [facility] TEST, SERUM 2020-10-15 14:58:00 Sergei [facility] TROPONIN I 2020-10-15 14:58:00 Sergei [facility] HEPATIC FUNCTION PANEL 2020-10-15 14:58:00 Sergei [facility] ([id number]) (ALB,T.PRO,BILI Medical Branch T,BU/BC,ALT,AST,ALK PHOS) BASIC METABOLIC PANEL 2020-10-15 14:58:00 Sergei, [facility] (NA, K, CL, CO2, Medical Branch GLUCOSE, BUN, CREATININE, CA) N-TERMINAL PRO-BNP 2020-10-15 14:58:00 Sergei [facility] XR CHEST 2 VW 2020-10-15 13:47:20 Sergei [facility] CT HEAD WO CONTRAST 2020-10-15 13:37:33 Sergei [facility] CREATINE KINASE 2020-10-15 13:27:00 Sergei [facility] LIPASE 2020-10-15 13:27:00 Sergei [facility] TROPONIN I 2020-10-15 13:27:00 Sergei [facility] N-TERMINAL PRO-BNP 2020-10-15 13:27:00 Sergei [facility] POCT TEST 2020-10-13 11:13:00 Gage Torres [facility] COMP. METABOLIC PANEL 2020-10-13 11:06:00 Gage [facility] ([id number]) [facility] EXTRA TUBE ORANGE 2020-10-13 11:06:00 Gage Torres [facility] EXTRA TUBE LT. GREEN 2020-10-13 11:06:00 Gage Torres [facility] URINE DRUG (IMMUNOASSAY) 2020-10-13 11:01:00 Gage Torres [facility] SCREEN URINALYSIS 2020-10-13 11:01:00 Gage Torres [facility] CBC WITH DIFF 2020-10-13 10:41:00 Gage Torres [facility] XR CHEST 1 VW 2020-10-13 10:40:00 Gage Torres [facility] PROTHROMBIN TIME / INR 2020-10-13 10:26:00 Gage Torres [facility] D-DIMER 2020-10-13 10:26:00 Gage Torres [facility] ACTIVATED PARTIAL 2020-10-13 10:26:00 Gage Torres [facility] THRMPLAS CHER [facility] TROPONIN I 2020-10-13 10:09:00 Gage Torres [facility] THYROID STIMULATING 2020-10-13 10:09:00 Gage Torres [facility] HORMONE [facility] ETHANOL 2020-10-13 10:09:00 Gage Torres [facility] EXTRA TUBE ORANGE 2020-10-13 10:09:00 Gage Torres [facility] EXTRA TUBE LT. GREEN 2020-10-13 10:09:00 Gage Torres [facility] LIPASE 2020-10-13 10:09:00 Gage Torres [facility] COVID-19 (ID NOW RAPID 2020-10-13 10:06:00 Gage Torres [facility] TESTING) Medical Branch LIPASE 2020-09-17 03:02:00 William [facility] TEST, SERUM 2020-09-17 03:02[facility] 2020-09-17 03:02:00 William [facility] ([id number]) (ALB,T.PRO,BILI [facility] T,BU/BC,ALT,AST,ALK PHOS) BASIC METABOLIC PANEL 2020-09-17 03:02[facility]00 [facility] ([facility], K, CL, CO2, Medical Branch GLUCOSE, BUN, CREATININE, CA) CBC WITH DIFF 2020-09-17 03:02[facility] PELVIS W 2020-09-06 11:31:59 Arnold Coughlin [facility] CONTRAST [facility] XR CHEST 1 VW 2020-09-06 10:03:21 Arnold Coughlin [facility] CBC WITH DIFF 2020-09-06 09:58:00 Arnold Coughlin [facility] LIPASE 2020-09-06 09:57:00 Arnold Coughlin [facility] TROPONIN I 2020-09-06 09:57:00 Arnold Coughlin [facility] COMP. METABOLIC PANEL 2020-09-06 09:57:00 Arnold [facility]oughlin [facility] ([id number]) Medical Branch N-TERMINAL PRO-BNP 2020-09-06 09:57:00 Arnold Coughlin [facility] D-DIMER 2020-09-02 02:24:00 Ana Sommers [facility] COVID-19 (ID NOW RAPID 2020-09-02 00:10:00 Ana Sommers [facility] TESTING) Medical Branch LIPASE 2020-09-02 00:07:00 Ana Sommers [facility] TROPONIN I 2020-09-02 00:07:00 Ana Sommers [facility] THYROID STIMULATING 2020-09-02 00:07:00 Ana Sommers [facility] HORMONE [facility] HEPATIC FUNCTION PANEL 2020-09-02 00:07:00 Ana Sommers [facility] ([id number]) (ALB,T.PRO,BILI [facility] T,BU/BC,ALT,AST,ALK PHOS) BASIC METABOLIC PANEL 2020-09-02 00:07:00 [facility]mers [facility] (NA, K, CL, CO2, Medical Branch GLUCOSE, BUN, CREATININE, CA) CBC WITH DIFF 2020-09-02 00:07:00 Ana Sommers [facility] N-TERMINAL PRO-BNP 2020-09-02 00:07:00 Ana Sommers [facility] XR CHEST 1 VW 2020-09-02 00:02:14 Ana Sommers [facility] NOTICE OF PRIVACY 2020-09-01 22:34:26 Doctor Unassigned, No [facility] PRACTICES Name [facility] CONSENT/REFUSAL FOR 2020-09-01 22:34:08 Doctor Unassigned, No [facility] DIAGNOSIS AND TREATMENT Name [facility] [place] BASIC METABOLIC PANEL 2020-04-12 10:18:00 Buddy Montes [facility] (NA, K, CL, CO2, Medical Branch GLUCOSE, BUN, CREATININE, CA) CBC WITH DIFF 2020-04-12 10:18:00 Buddy Montes [facility] Medical Branch XR FOREARM 2 VW LEFT 2020-04-11 17:54:00 [facility] XR HAND 3+ VW LEFT 2020-04-11 17:54:00 Jennifer [facility] y of [facility] Branch XR WRIST 3+ VW LEFT 2020-04-11 17:54:00 Jennifer [facility] ty [facility] XR ANKLE 3+ VW LEFT 2020-04-11 12:47:35 Clay Garay [facility] XR FOOT 3+ VW LEFT 2020-04-11 12:47:35 Clay Garay [facility] XR TIBIA FIBULA 2 VW 2020-04-11 12:47:35 Clay Garay [facility] CT TRAUMA HEAD WO 2020-04-11 12:41:26 Clay Garay [facility] CONTRAST [facility] CT TRAUMA THORAX W 2020-04-11 12:41:26 [facility] CONTRAST [facility] CT TRAUMA CERVICAL SPINE 2020-04-11 12:41:26 Tanisha [facility] CONTRAST Medical Branch CT TRAUMA THORACIC SPINE 2020-04-11 12:41:26 Tanisha [facility] CONTRAST Medical Branch CT TRAUMA ABDOMEN PELVIS 2020-04-11 12:41:26 Tanisha [facility] CONTRAST Medical Branch CT TRAUMA LUMBAR SPINE 2020-04-11 12:41:26 Clay Garay [facility] CONTRAST Medical Branch HB ABO GROUPING 2020-04-11 12:20:00 John Grace [facility] BASIC METABOLIC PANEL 2020-04-11 12:17:00 John Grace [facility] (NA, K, CL, CO2, [place] Medical Branch GLUCOSE, BUN, CREATININE, CA) CBC WITHOUT DIFF 2020-04-11 12:17:00 Grace, [facility] PROTHROMBIN TIME / INR 2020-04-11 12:17:00 Sanjay [facility] ACTIVATED PARTIAL 2020-04-11 12:17:00 Sanjay [facility] THRMPLAS CHER [facility] EKG-12 LEAD 2020-04-11 04:23:07 Gage Torres [facility] TROPONIN I 2020-04-11 01:53:00 Vamshi [facility] EKG-12 LEAD 2020-04-11 01:46:16 Vamshi [facility] ADC / LCC - DRUG SCREEN 2020-04-10 05:19:00 Singer [facility] TRIAGE [facility] XR CHEST 1 VW 2020-04-10 04:26:18 Singer [facility] COVID-19 (ID NOW RAPID 2020-04-10 04:15:00 Singer [facility] TESTING) Medical Branch D-DIMER 2020-04-10 04:14:00 Singer [facility] LIPASE 2020-04-10 04:11:00 Singer [facility] MAGNESIUM 2020-04-10 04:11:00 [facility] TROPONIN I 2020-04-10 04:11:00 [facility] COMP. METABOLIC PANEL 2020-04-10 04:11:00 Wiley Gay [facility] ([id number]) [facility] CBC WITH DIFF 2020-04-10 04:11:00 Singer [facility] N-TERMINAL PRO-BNP 2020-04-10 04:11:00 Singer Wiley [facility] EKG-12 LEAD 2020-04-10 03:55:43 Singer [facility] NOTICE OF PRIVACY 2020-04-10 03:51:52 Doctor Unassigned, No [facility] PRACTICES Name Medical Branch CONSENT/REFUSAL FOR 2020-04-10 03:51:01 [facility]AT[facility] Name Medical [facility] COMP. METABOLIC PANEL 2020-02-25 18:39:00 [facility] ([id number]) [facility] CBC WITH DIFF 2020-02-25 18:39:00 Georgia Estrada [facility] EKG-12 LEAD 2020-02-25 18:27:17 Georgia Estrada [facility] CT ABDOMEN PELVIS W 2019-07-13 00:47:46 Diego Shelby B [facility] POCT TEST 2019-07-13 00:29:00 Diego Shelby B Univers [facility] LIPASE 2019-07-12 23:07:00 Diego Shelby [facility] COMP. METABOLIC PANEL 2019-07-12 23:07:00 [facility] ([id number]) [facility] CBC WITH DIFFERENTIAL 2019-07-12 23:07:00 Lucia Diego B Unive [facility] URINALYSIS 2019-07-12 23:07:00 Diego Shelby B [facility] XR CHEST 1 VW 2019-03-06 16:21:04 Andressa Christianson [facility] Encounters Start End Encounter Admission Attending Care Care Encounter Source Date/Time Date/Time Type Type Clinicians Facility Department ID 2021 Outpatient AVANI VARMA [id number] CHRISTU 20:48:43 -[id number] [facility] 2021 Outpatient CHRISTUS CHRISTUS [id number] CHRISTU 20:48:43 [id number] [facility] 2021-09-21 2021-09-21 Emergency Georgia Estrada RUST [id number]. [id number] Univers 20:28:00 22:36:00 [place] FIELDON [id number] [facility] [id number] [facility] [id number] [facility] 084 Branch 2021-09-21 2021-09-21 Emergency X Villa VAZQUEZ RUST ERT [id number] Univers 20:28:00 22:36:00 [facility] 2021-03-25 2021-03-25 Emergency KEVIN Coughlin [id number] Univers 03:49:00 11:27:00 Arnold Huynh [id number] ity [place] [id number] [place] [address] [id number] [facility] 084 Branch 2021-03-25 2021-03-25 Emergency X [facility] [id number] Univers 03:49:00 03:49:00 WAKILI ity of [facility] 2020-12-01 2020-12-01 Letter Melanie Kolb [id number] 00:00:00 00:00:00 (Out) Adal Julian [id number] [place] [id number] 2020-12-01 2020-12-01 Letter Melanie Kolb [id number] Univers 00:00:00 00:00:00 (Out) Adal Julian [id number] it y of [place] [id number] [place] [address] [id number] [place] [address] Branch 2020-11-22 2020-11-23 [facility] [id number] 06:16:00 14:46:00 Encounter SergeiSadiAnkit Julian [id number] [place] [address]..2.[facility] [id number] [facility] 2020-11-22 2020-11-23 [facility] [id number] Univers 06:16:00 14:46:00 Encounter SergeiSadiCindyChrisdave Julian [id number] ity [place] [address] [place] [address] [id number] [place] [address] Branch 2020-11-22 2020-11-23 Outpatient X [facility] [id number] Univers 06:16:00 14:46:00 ADAL ity [facility] 2020-10-22 2020-10-22 Emergency Chaka Steinberg TRAUMA [id number] 02:04:00 07:32:00 W CENTER [id number] [id number] [id number] 2020-10-22 2020-10-22 Emergency Chaka Steinberg TRAUMA [id number] Univers 02:04:00 07:32:00 W CENTER [id number] [id number] [address] 2020-10-22 2020-10-22 Emergency X CHAKA STEINBERG RUST ERT [id number] Univers 02:04:00 07:32:00 ity of [facility] 2020-10-19 2020-10-20 Emergency TRAUMA [id number] 23:59:00 00:57:00 CENTER [id number] 4.2.7.2.686 [id number] 2020-10-19 2020-10-20 Emergency TRAUMA [id number] Univers 23:59:00 00:57:00 CENTER [id number] [place] [id number] [address] 2020-10-19 2020-10-20 Emergency X UNKNOWN, RUST ERT [id number] Univers 23:59:00 00:57:00 ATTENDING ity of [facility] 2020-10-15 2020-10-15 Emergency Sergei, TRAUMA [id number] 07:37:00 15:30:00 [facility] CENTER [id number] [id number] [id number] 2020-10-15 2020-10-15 Emergency Sergei, TRAUMA [id number] Univers 07:37:00 15:30:00 [facility] CENTER [id number] [place] [id number] [address] 2020-10-15 2020-10-15 Emergency X RUST ERT [id number] Univers 07:28:00 07:28:00 ity [facility] 2020-10-13 2020-10-13 Emergency Melissa, Gage E TRAUMA 1.2.840 .114 [id number] 04:42:00 11:13:00 Miguelito Salter CENTER [id number] Moises Anderson 4.2.7.2.68 [id number] 014 2020-10-13 2020-10-13 Emergency Melissa, Gage E TRAUMA 1.2.840 .114 [id number] Univers 04:42:00 11:13:00 Miguelito Salter [facility] [id number] ity Moises Anderson 4.2.7.2.686 [place] [id number] [facility] 014 [place] 2020-10-13 2020-10-13 Emergency X MELISSA, RUST ERT [id number] Univers 04:42:00 04:42:00 GAGE canales [facility] 2020-09-16 2020-09-17 Emergency William, RUST [id number] 21:39:00 00:11:00 Hoang Huynh [id number] [place] [address] [place] [address] [id number] [facility] 2020-09-16 2020-09-17 Emergency William, KSMB [id number] Univers 21:39:00 00:11:00 Hoang Huynh [id number] i ty of [place] 4.2.7.[address] [place] [address] [id number] [facility] 084 [place] 2020-09-16 2020-09-16 Emergency X WILLIAM, RUST ERT [id number] Univers 21:39:00 21:39:00 HOANG canales [facility] 2020-09-12 2020-09-12 Emergency X , RUST ERT [id number] Univers 05:03:00 06:28:00 WILEY parker [facility] 2020-09-06 2020-09-[address] [facility] [id number] 04:37:00 07:13:00 Arnold Daniel Lino 350.1.13.10 [place] 4.2.7.2.686 [place] [id number] 08 2020-09-06 2020-09-06 Emergency formerly [facility] 1.2.837.029 [id number] Univers 04:37:00 07:13:00 Arnold Daniel Lino 350.1.13.10 ity of [place] 4.2.7.2.686 [facility] [phone] [place] [id number] Branch 2020-09-06 2020-09-06 Emergency X [facility] ERT [id number] Univers 04:37:00 07:13:00 ARNOLD ity of [facility] 2020-09-01 2020-09-01 Emergency [facility] 1.2.317.758 [id number] Univers 17:06:00 21:39:00 Ana Shepherd Lino 350.1.13.10 ity of [place] 4.2.7.2.6 [facility] [phone] [facility] 084 Branch 2020-09-01 2020-09-01 Emergency [facility] 1.2.599.557 [id number] 17:06:00 21:39:00 Ana Shepherd Lino 350.1.13.[address] [place] [address] [place] [address] [id number] 08 2020-09-01 2020-09-01 Emergency X RUST ERT [id number] Univers 16:36:00 16:36:00 ity of [facility] 2020-09-01 2020-09-01 Orders Doctor GOODWIN 1.2.840.114 [id number] Univers 00:00:00 00:00:00 Only Unassigned, MAGDY 350.1.13.10 ity of [facility] 4.2.7.2.686 [facility] [phone] [facility] 009 Branch 2020-09-01 2020-09-01 Orders Doctor GOODWIN 1.2.840.114 [id number] 23 00:00:00 00:00:00 Only Unassigned, MAGDY 350.1.13.10 [facility] 4.2.7.2.686 [id number] 009 2020-04-15 2020-04-15 Transition Francisco Price 1.2.840.114 [id number] Univers 00:00:00 00:00:00 of Care Rafaela Morin 350.1.13.10 i [place] of [place] [id number] [facility] 403 Branch 2020-04-15 2020-04-15 Transition Francisco Price 1.2.840.114 [id number] 00:00:00 00:00:00 of Care Rafaela Morin 350.1.13.10 [place] 4.2.7.2.686 [id number] 403 2020-04-11 2020-04-14 [facility] Melanie Brewer 1.2.206.731 [id number] Univers 06:55:00 20:35:00 Encounter Pedrito Julian 350.1.13.10 ity of Hospital 4.2.7.2.686 Vishal as [id number] [facility] 098 Branch 2020-04-11 2020-04-11 Emergency T RUST STR [id number] Univers 06:55:00 06:55:00 ity of [facility] 2020-04-10 2020-04-11 Emergency Melissa, TRAUMA 1.2.641.704 [id number] Univers 23:04:00 01:06:00 Gage SANDY 350.1.13.10 [place] [id number] [facility] 014 Branch 2020-04-10 2020-04-10 Emergency X MELISSA, RUST ERT [id number] Univers 23:04:00 23:04:00 GAGE canales of [facility] 2020-04-10 2020-04-10 Emergency Vamshi, Opal TRAUMA 1.2.840. 114 [id number] Univers 20:37:00 22:02:00 Pedrito Rosado 350.1.13.10 [place] [id number] [facility] 014 Branch 2020-04-10 2020-04-10 Emergency X MIGUEL, RUST ERT [id number] Univers 20:37:00 20:37:00 PEDRITO canales [facility] 2020-04-09 2020-04-10 Emergency [facility] 1.2.139.621 [id number] Univers 22:56:00 00:49:00 Wiley Huynh 350.1.13.10 i ty [place] [id number] [address] 2020-04-09 2020-04-09 Emergency X [facility] ERT [id number] Univers 22:49:00 22:49:00 WILEY canales [facility] 2020-02-25 2020-02-25 Emergency [facility] 1.2.351.430 [id number] Univers 13:23:00 14:09:00 Georgia Huynh 350.1.13.10 i ty [place] [id number] [address] 2020-02-25 2020-02-25 Emergency [facility] ERT [id number] Univers 13:23:00 13:23:00 GEORGIA canales [facility] 2019-07-12 2019-07-12 Emergency Unknown, Attending TRAUMA 1.2.8 40.114 [id number] Univers 15:04:04 21:14:00 Gladys Marley [facility] 350.1.13. 10 [place] [id number] [facility] 014 Branch 2019-07-12 2019-07-12 Emergency [facility] ERT [id number] Univers 15:04:04 21:14:00 GLADYS canales [facility] 2019-03-06 2019-03-06 Hospital Sammy, [place] 1.2.840.114 [id number] Univers 11:16:49 23:59:00 Encounter Andressa Izzy Quiñones [facility] 350.1.13.10 ity [place] [id number] [facility] 807 [place] Results Test Description Test Time Test Comments Results Result Comments Source TROPONIN I 2021-09-22 02:32:27 Test Item Value Reference Range Interpretation Comme nts TROPONIN I (test code = 0.006 ng/mL See_Comment [Au tomated message] The 7841350799) system which [employer] nerated this result tra nsmitted reference range [...] biotin. Lab Interpretation Normal (test code = 09940-7) [facility] [id number] 02:29:25 Test Item Value Reference Range Interpretation Comments NT-proBNP (test code 77 pg/mL See_Comment [Autom ated = 8519170399) message] The system which generated this result transmitted reference range : <=125. The reference range was not used to interpret this result as normal/abnormal . PAULA (test code = PAULA) Biotin has been reported to cause a negative bias, interpret results relative to patient's use of biotin. Lab Interpretation Normal (test code = 76098-6) [facility] WITH [id number] 02:21:26 Test Item Value Reference Range Interpretation Comments WBC (test code = See_Comment [Automated message] The 6690-2) system which [employer] nerated this result tra nsmitted reference range : 4.30 - 11.10 10*3/?L. The reference range was not used to interpr et this result as normal/abnormal . RBC (test code = See_Comment [Automated message] The 789-8) system which [employer] nerated this result tra nsmitted reference range [...] RDW-SD (test code 45.0 fL 39.0-49.9 = 43567-9) RDW-CV (test code 13.6 % 12.0-15.5 = 788-0) PLT (test code = See_Comment [Automated message] The 777-3) system which [employer] nerated this result tra nsmitted reference range : 166 - 358 10*3/?L. Th e reference range was not used to interpr et this result as normal/abnormal . MPV (test code = 10.5 fL 9.5-12.9 53573-6) IPF % (test code 3.1 % 1.3-7.7 Platelet co unt measured = 3143832340) by fluorescenc e method. NRBC/100 WBC See_Comment [Automated mes joe] The (test code = system which [employer] nerated 6236185062) this result tra nsmitted reference range : 0.0 - 10.0 /100 WBCs. The reference range was not used to interpr et this result as normal/abnormal . NRBC x10^3 (test <0.01 See_Comment [Automated message] The code = system which [employer] nerated 2094587303) this result tra nsmitted reference range : 10*3/?L. The re ference range was not u sed to interpret this result as normal/abnormal . GRAN MAT (NEUT) % 75.4 % (test code = 770-8) IMM GRAN % (test 0.50 % code = 9763004111) LYMPH % (test 15.8 % code = 736-9) MONO % (test code 6.8 % = 5905-5) EOS % (test code 0.9 % = 713-8) BASO % (test code 0.6 % = 706-2) GRAN MAT 6.46 10*3/uL 1.88-7.09 x10^3(ANC) (test code = 7446464959) IMM GRAN x10^3 0.04 10*3/uL 0.00-0.06 (test code = 5843785103) LYMPH x10^3 (test 1.35 10*3/uL 1.32-3.29 code = 731-0) MONO x10^3 (test 0.58 10*3/uL 0.33-0.92 code = 742-7) EOS x10^3 (test 0.08 10*3/uL 0.03-0.39 code = 711-2) BASO x10^3 (test 0.05 10*3/uL 0.01-0.07 code = 704-7) [facility]2022-03-30 02:21:06 Test Item Value Reference Range Interpretation Comments MAGNESIUM (test code = 0351602957) 2.0 mg/dL 1.7-2.4 Lab Interpretation (test code = Normal 69343-1) [facility]. METABOLIC PANEL (08779)2021-09-22 02:20:45 Test Item Value Reference Range Interpretation Comments NA (test code = 136 mmol/L 135-145 9913961436) K (test code = 4.7 mmol/L 3.5-5.0 5325829648) CL (test code = 106 mmol/L 98-108 3157222558) CO2 TOTAL (test code = 17 mmol/L 23-31 L 8422723151) AGAP (test code = 2-16 7816028582) BUN (test code = 10 mg/dL 7-23 1226146567) GLUCOSE (test code = 99 mg/dL 70-110 1344144935) CREATININE (test code = 0.50 mg/dL 0.50-1.04 2669812961) TOTAL BILI (test code = 0.9 mg/dL 0.1-1.4 9183337040) CALCIUM (test code = 8.9 mg/dL 8.6-10.6 5619133356) T PROTEIN (test code = 8.3 g/dL 6.3-8.2 H 5198425965) ALBUMIN (test code = 4.8 g/dL 3.5-5.0 8342465499) ALK PHOS (test code = 66 U/L 34-122 0858827519) ALTv (test code = 22 U/L 5-35 1742-6) AST(SGOT) (test code = 40 U/L 13-40 0669155822) eGFR (test code = mL/min/1.73m2 4728365085) PAULA (test code = PAULA) Association of [...] tests). Lab Interpretation Abnormal (test code = 99336-6) [facility]intePOKY [id number] 01:43:00 Test Item Value Reference Range Interpretation Comments POCT PREG (test code = 1605) negative On board controls acceptable with present C Line (test code = 3574) POCT PREG LOT # (test code = 3575) [id number] POCT PREG TEST DATE (test 2022-08-23 code = 3576) Lab Interpretation (test code = Normal 18929-6[id number] 12:15:08 Test Item Value Reference Interpretation Comments Range TROPONIN I (test 0.009 ng/mL See_Comment [Automated code = 0681124294) message] The system which generated this result [...] biotin. Lab Interpretation Normal (test code = 86989-8) [facility]inteD-[id number] 10:51:58 Test Item Value Reference Interpretation Comments Range D-DIMER (test code = See_Comment H [Autom ated 2746305516) message] The system which generated this result [...] diagnosis. Lab Interpretation Abnormal (test code = 78068-5) [facility]inteCBC WITH [id number] 10:39:17 Test Item Value Reference Range Interpretation [...] (test code = 51.8 fL 39.0-49.9 H 15722-6) RDW-CV (test code = 15.7 % 12.0-15.5 H 788-0) PLT (test code = See_Comment [Automated 777-3) message] The sy stem which generated this result transmitted reference range : 166 - 358 10*3/ ?L. The reference r micah was not used to interpret this result as normal/abnormal . MPV (test code = 10.2 fL 9.5-12.9 72557-1) IPF % (test code = 1.9 % 1.3-7.7 Platelet count 9321108355) measured by fluorescence method. NRBC/100 WBC (test See_Comment [Automat ed code = 2655903554) message] The system which generated this result transmitted reference range : 0.0 - 10.0 /100 WBCs. The refer ence range was not u sed to interpret th is result as normal/abnormal . NRBC x10^3 (test code <0.01 See_Comment [Auto mated = 7233584229) message] The s ystem which generated this result transmitted reference range : 10*3/?L. The reference range was not used to interpret this result as normal/abnormal . GRAN MAT (NEUT) % 63.4 % (test code = 770-8) IMM GRAN % (test code 0.20 % = 3217700107) LYMPH % (test code = 24.2 % 736-9) MONO % (test code = 10.4 % 5905-5) EOS % (test code = 0.9 % 713-8) BASO % (test code = 0.9 % 706-2) GRAN MAT x10^3(ANC) 3.34 10*3/uL 1.88-7.09 (test code = 7880298021) IMM GRAN x10^3 (test <0.03 0.00-0.06 code = 3456879263) LYMPH x10^3 (test code 1.28 10*3/uL 1.32-3.29 L = 731-0) MONO x10^3 (test code 0.55 10*3/uL 0.33-0.92 = 742-7) EOS x10^3 (test code = 0.05 10*3/uL 0.03-0.39 711-2) BASO x10^3 (test code 0.05 10*3/uL 0.01-0.07 = 704-7) PLT ESTIMATE (test Normal Normal code = 9317-9) Lab Interpretation Abnormal (test code = 84690-8) [facility] PointeJER [id number] 10:26:56 Test Item Value Reference Interpretation Comments Range TROPONIN I (test 0.011 ng/mL See_Comment [Automated code = 1245728118) message] The system which generated this result [...] biotin. Lab Interpretation Normal (test code = 77797-1) [facility]. METABOLIC PANEL (29569)2021-03-25 10:15:34 Test Item Value Reference Range Interpretation Comments NA (test code = 141 mmol/L 135-145 8121187599) K (test code = 3.7 mmol/L 3.5-5.0 8143520156) CL (test code = 108 mmol/L 98-108 9515095401) CO2 TOTAL (test code = 23 mmol/L 23-31 4326581507) AGAP (test code = 2-16 5083586665) BUN (test code = 6 mg/dL 7-23 L 6603554408) GLUCOSE (test code = 108 mg/dL 70-110 2296311345) CREATININE (test code = 0.65 mg/dL 0.50-1.04 5244828988) TOTAL BILI (test code = 0.4 mg/dL 0.1-1.2 2405898464) CALCIUM (test code = 8.7 mg/dL 8.6-10.6 4165196880) T PROTEIN (test code = 7.9 g/dL 6.3-8.2 3809658498) ALBUMIN (test code = 4.3 g/dL 3.5-5.0 9378144208) ALK PHOS (test code = 72 U/L 34-122 3014716423) ALTv (test code = 31 U/L 5-35 1742-6) AST(SGOT) (test code = 45 U/L 13-40 H 4924006638) eGFR (test code = mL/min/1.73m2 6575906885) PAULA (test code = PAULA) Association of [...] tests). Lab Interpretation Abnormal (test code = 39673-3) [facility] PointeLIPASE2021-09-30 10:15:34 Test Item Value Reference Range Interpretation Comments LIPASE (test code = 7658881513) 54 U/L 0-220 Lab Interpretation (test code = Normal 79625-1) [facility] PointeaPTT (for use with Heparin Drip)2020-11-23 11:10:10 Test Item Value Reference Range Interpretation Comments APTT Patient (test code See_Comment H [Au tomated message] = 3173-2) The system [employer] generated this result transmitted ref erence range: 26 - 36 Seconds. The reference range was not used to int erpret this result as normal/abnormal . Lab Interpretation (test Abnormal code = 08318-0) [facility]inteBasic Metabolic Panel (NA, K, CL, CO2, GLUCOSE, BUN, CREATININE, CA)2020-11-23 05:36:05 Test Item Value Reference Range Interpretation Comments NA (test code = 133 mmol/L 135-145 L 0211503967) K (test code = 3.6 mmol/L 3.5-5.0 0379454694) CL (test code = 105 mmol/L 98-108 0375808718) CO2 TOTAL (test code = 24 mmol/L 23-31 8874332681) AGAP (test code = 2-16 8317163896) BUN (test code = 11 mg/dL 7-23 3525425508) GLUCOSE (test code = 104 mg/dL 70-110 6767678437) CREATININE (test code = 0.64 mg/dL 0.50-1.04 9316312511) CALCIUM (test code = 8.4 mg/dL 8.6-10.6 L 7404501355) eGFR (test code = mL/min/1.73m2 6717519059) PAULA (test code = PAULA) Association of [...] tests). Lab Interpretation Abnormal (test code = 02878-6) [facility] PointeMagnesium [id number] 05:36:05 Test Item Value Reference Range Interpretation Comments MAGNESIUM (test code = 5090572677) 2.1 mg/dL 1.7-2.4 Lab Interpretation (test code = Normal 32209-3) [facility] PointeAnish (for use with Heparin Drip)2020-11-23 05:25:43 Test Item Value Reference Range Interpretation Comments APTT Patient (test code See_Comment H [Au tomated message] = 3173-2) The system [employer] generated this result transmitted ref erence range: 26 - 36 Seconds. The reference range was not used to int erpret this result as normal/abnormal . Lab Interpretation (test Abnormal code = 52478-6) [facility] with [id number] 05:11:43 Test Item Value Reference Range Interpretation Comments WBC (test code = See_Comment [Automated 5890-2) message] The sy stem which generated this [...] RDW-SD (test code = 43.7 fL 39.0-49.9 07736-1) RDW-CV (test code = 13.1 % 12.0-15.5 788-0) PLT (test code = See_Comment [Automated 777-3) message] The sy stem which generated this result transmitted reference range : 166 - 358 10*3/ ?L. The reference r micah was not used to interpret this result as normal/abnormal . MPV (test code = 9.2 fL 9.5-12.9 L 22346-3) NRBC/100 WBC (test See_Comment [Automat ed code = 4905311603) message] The system which generated this result transmitted reference range : 0.0 - 10.0 /100 WBCs. The refer ence range was not u sed to interpret th is result as normal/abnormal . NRBC x10^3 (test code <0.01 See_Comment [Auto mated = 5323403473) message] The s ystem which generated this result transmitted reference range : 10*3/?L. The reference range was not used to interpret this result as normal/abnormal . GRAN MAT (NEUT) % 58.2 % (test code = 770-8) IMM GRAN % (test code 0.50 % = 2352356439) LYMPH % (test code = 28.4 % 736-9) MONO % (test code = 8.9 % 5905-5) EOS % (test code = 3.3 % 713-8) BASO % (test code = 0.7 % 706-2) GRAN MAT x10^3(ANC) 3.53 10*3/uL 1.88-7.09 (test code = 9504452294) IMM GRAN x10^3 (test 0.03 10*3/uL 0.00-0.06 code = 2736696248) LYMPH x10^3 (test code 1.72 10*3/uL 1.32-3.29 = 731-0) MONO x10^3 (test code 0.54 10*3/uL 0.33-0.92 = 742-7) EOS x10^3 (test code = 0.20 10*3/uL 0.03-0.39 711-2) BASO x10^3 (test code 0.04 10*3/uL 0.01-0.07 = 704-7) Lab Interpretation Abnormal (test code = 42431-6) [facility] PointeXR CHEST 1 [id number] 00:27:06 No acute cardiopulmonary abnormality. Preliminary Report Dictated by Resident: Chaka Lara I, Navin Bain MD., have reviewed this study and agree with theabove report.EXAM: XR CHEST 1 VW CLINICAL INDICATION: chest pain COMPARISON: 10/22/2020 FINDINGS: The lungs are well-expanded and clear without focal consolidation, pleuraleffusion, or pneumothorax. The cardiac silhouette is normal in size. No acute osseous abnormality. [facility], Radiant Results Inft User - 11/22/2020 7:28 PM CDT EXAM: XR CHEST 1 VWCLINICAL INDICATION: chest pain COMPARISON: 10/22/2020FINDINGS:The lungs are well-expanded and clear without focal consolidation, pleuraleffusion, or pneumothorax. The cardiac silhouette is normal in size. No acute osseous abnormality. IMPRESSIONNo acute cardiopulmonary abnormality.Preliminary Report Dictated by Resident: Chaka Gutierrez, Navin Ordonez MD., have reviewed this study and agree with theabove report.[facility] PointeTHYROID STIMULATING [id number] 22:15:04 Test Item Value Reference Range Interpretation Comments TSH (test code = See_Comment [Automated message] 5849700745) The system [employer] generated this result transmitted ref erence range: 0.45 - 4 .70 mIU/L. The refe rence range was not u sed to interpret this result as normal/abnor mal. Lab Interpretation (test Normal code = 06167-7) [facility] PointeGLYCOSYLATED HEMOGLOBIN (A1C)2020-11-22 22:14:59 Test Item Value Reference Range Interpretation Comments HGB A1C (test code = 5.1 % 4.0-5.7 4548-4) PAULA (test code = PAULA) Reference RangesNormal: <5.7%Prediabetes: 5.7 - 6.4%Diabetes: > 6.5% Lab Interpretation (test Normal code = 82735-3) [facility] PointeFREE [id number] 22:01:07 Test Item Value Reference Range Interpretation Comments FREE T4 (test code = See_Comment [Autom ated message] 0816855998) The system [employer] generated this result transmitted ref erence range: 0.78 - 2 .20 ng/dL:. The ref erence range was not u sed to interpret this result as normal/abnor mal. Lab Interpretation (test Normal code = 50108-0) [facility] PointeLIPID PANEL (12881)(TOTAL CHOLESTEROL, TRIGLYCERIDES, HDL)2020-11-22 21:44:08 Test Item Value Reference Range Interpretation Comments CHOL (test code = 279 mg/dL 120-200 H 1632248181) HDL (test code = 85 mg/dL >50 9970113310) HDLC RATIO (test code = See_Comment [Au tomated message] 8254963844) The system [employer] generated this result transmit bhaskar reference range : <=4.5. The refe rence range was not u sed to interpret th is result as normal/abnormal . TRIG (test code = 312 mg/dL 30-170 H 8953745077) LDL CHOL (test code = 132 mg/dL See_Comment [Auto mated message] 68255-0) The system [employer] generated this result transmit bhaskar reference range : <=160. The refe rence range was not u sed to interpret th is result as normal/abnormal . VLDL (test code = 62 mg/dL 5-60 H 8387920744) Lab Interpretation (test Abnormal code = 75807-3) [facility] PointeCT ANGIOGRAM [id number] 21:04:53 1. ?No acute aortic syndrome. No pulmonary emboli. 2. ?Small type III hiatal hernia. Preliminary Report Dictated by Resident: Chaka Lara I, Navin Bain MD., have reviewed this study and agreewith theabove report.PROCEDURE: CT ANGIO CHEST WITH CONTRAST - PE PROTOCOL CLINICAL INDICATION: 40-year-old female with history of drug use withsubsternal chest pain, evaluate for dissection and PE ? CO MPARISON: ?None. DOSE: 2003.7 mGy-cm TECHNIQUE AND FINDINGS: Initially non contrast images obtained though thechest and constructed as axial volumes through the chest. Subsequent gaugevolumetric data acquisition of the chest with intravenous constructed ascontiguous axial volumes and reconstructed as s agittal, coronal, and MIPimages.(DFOV = 40 cm) FINDINGS: Vascular: No intramural hematoma, aortic aneurysm or aortic dissection. Thethoracic aorta is normal in caliber. No significant atheroscleroticdisease. No pulmonary emboli to the level of segmental branches. LINES AND TUBES: None LOWER NECK/THYROID: The visualized portions of thyroid gland are normal. LUNGS: Mild bibasilar subsegmental dependentatelectasis. The lungs areotherwise clear. PLEURA: No pleural effusion or pneumothorax. CENTRAL AIRWAY: No bronchiectasis, mucus plugging, or bronchial wallthickening. MEDIASTINUM: No mediastinal lymphadenopathy. Normal cardiac morphology. Nopericardial effusion. BONES AND SOFT TISSUES: No suspicious lytic or blastic skeletal lesions. VISUALIZED UPPER ABDOMEN: Small type III hiatal hernia. [facility], Radiant Results Inft User - 11/22/2020 4:06 PM CDT PROCEDURE: CT ANGIO CHEST WITH CONTRAST - PE PROTOCOLCLINICAL INDICATION: 40-year-old female with history of drug use withsubsternal chest pain, evaluate for dissection and PE COMPARISON: None.DOSE: 2003.7 mGy-cmTECHNIQUE AND FINDINGS: Initially non contrast images obtained though thechest and constructed as axial volumes through the chest. Subsequent gaugevolumetric data acquisition of the chest with intravenous constructed ascontiguous axial volumes and reconstructed as sagittal, coronal, andMIPimages.(DFOV = 40 cm)FINDINGS: Vascular: No intramural hematoma, aortic aneurysm or aortic dissection. Thethoracic aorta is normal in caliber. No significant atheroscleroticdisease. No pulmonary emboli to the level of segmental branches.LINES AND TUBES: NoneLOWER NECK/THYROID: The visualized portions of thyroid gland are normal.LUNGS: Mild bibasilar subsegmental dependent atelectasis. The lungs areotherwise clear.PLEURA: No pleural effusion or pneumothorax.CENTRAL AIRWAY: No bronchiectasis, mucusplugging, or bronchial wallthickening.MEDIASTINUM: No mediastinal lymphadenopathy. Normal cardiac mor phology. Nopericardial effusion. BONES AND SOFT TISSUES: No suspicious lytic or blastic skeletal lesions.VISUALIZED UPPER ABDOMEN: Small type III hiatal hernia. IMPRESSION1. No acute aortic syndrome. No pulmonary emboli.2. Small type III hiatal hernia.Preliminary Report Dictated by Resident: Chaka Gutierrez, Navin Ordonez MD., have reviewed this study and agree with theabove report. [facility] PointeJER [id number] 20:12:00 Test Item Value Reference Range Interpretation Comments TROPONIN I (test 0.014 ng/mL See_Comment [Automated code = 4311390726) message] The system which generated this result [...] ? Lab Interpretation Normal (test code = 98225-7) [facility] PointeCOVID-19 (ID NOW RAPID TESTING)2020-11-22 19:49:57 Test Item Value Reference Range Interpretation Comments SARS-CoV-2 Rapid ID NOW Not Detected Not Detected (test code = 01550-4) PAULA (test code = PAULA) ID NOW COVID-19 Assay is an isothermal nucleic acid amplification test intended for the qualitative detection of nucleic acid from SARS-CoV-2 viral RNA in nasopharyngeal (TENNIS COACH) specimens. It is used under Emergency Use [...] indicated. Lab Interpretation Normal (test code = 46370-9) [facility] PointePOCT [id number] 19:43:00 Test Item Value Reference Range Interpretation Comments POCT PREG (test code = 1605) negative On board controls acceptable with present C Line (test code = 3574) POCT PREG LOT # (test code = 3575) [id number] POCT PREG TEST DATE (test 05-25-2022 code = 3576) Lab Interpretation (test code = Normal 50539-8) [facility] PointeTROPONIN [id number] 15:52:28 Test Item Value Reference Range Interpretation Comments TROPONIN I (test 0.047 ng/mL See_Comment H [Automated code = 7027452305) message] The system which generated this result [...] ? Lab Interpretation Abnormal (test code = 08138-4) [facility] (IMMUNOASSAY) - COMPREHENSIVE DRUG [id number] 15:24:44 Test Item Value Reference Range Interpretation Comments AMPHET (test code = Presumptive Positive Negative A 9724756530) ANN U (test code = Negative Negative 1279085510) BENZO U (test code = Negative Negative 5782729737) Cocaine Metabolite (test Negative Negative code = 6761933863) METHADONE (test code = Negative Negative 1544350001) OPIATES (test code = Negative Negative 0924267273) PCP (test code = Negative Negative 8511397980) THC (test code = Negative Negative 9784543193) PAULA (test code = PAULA) Urine Drug [...] testing). Lab Interpretation (test Abnormal code = 74258-6) [facility] (CREATINE KINASE) + [id number] 13:16:38 Test Item Value Reference Range Interpretation Comments CK (test code = 751 U/L 33-194 H 5238447639) CK-MB (test code = 6.00 ng/mL See_Comment H [Automat ed 4527210246) message] The system which generated this result transmitted reference range : <=3.50. The reference range was not used to interpret this result as normal/abnormal . CKMB INDEX (test code 0.8 % 0.0-2.5 = 5034513494) PAULA (test code = PAULA) Biotin has been reported to cause a negative bias, interpret results relative to patient's use of biotin. Lab Interpretation Abnormal (test code = 54456-2) [facility] [id number] 13:16:38 Test Item Value Reference Range Interpretation Comments TROPONIN I (test 0.008 ng/mL See_Comment [Automated code = 1830874377) message] The system which generated this result [...] ? Lab Interpretation Normal (test code = 42935-1) [facility] DRUG (IMMUNOASSAY) - COMPREHENSIVE DRUG [id number] 13:13:47 Test Item Value Reference Range Interpretation Comments ANN S (test code = Negative Negative 9253527649) BENZO S (test code = Negative Negative 1585049088) TRICYCLIC (test code = Negative Negative 6490334233) PAULA (test code = PAULA) Serum Drug Screen Cutoff Ranges Barbiturates ? ? - 3 mcg/mLBenzodiazepines ?- 50 ng/mLTCA ?- 300 ng/mL Test developed and characteristics determined by [facility]. The results are to be used only for medical (i.e., treatment) purposes. Unconfirmed screening results must not be used for non-medical purposes (e.g., employment testing, legal testing). Lab Interpretation Normal (test code = 43686-0) [facility]2021-[facility]-30 13:13:32 Test Item Value Reference Range Interpretation Comments APPEARANCE (test code = Clear Clear 1558199236) COLOR (test code = Colorless Yellow A 1176187415) PH (test code = 4.8-8.0 1258375120) SP GRAVITY (test code = 1.003-1.030 L 5709769511) GLU U QUAL (test code = Normal Normal 5258689681) BLOOD (test code = 1+ Negative A 8619613300) KETONES (test code = Negative Negative 7118015242) PROTEIN (test code = Negative Negative 2887-8) UROBILIN (test code = Normal Normal 6283932469) BILIRUBIN (test code = Negative Negative 5044294703) NITRITE (test code = Negative Negative 7918079734) LEUK JONATHON (test code = Negative Negative 0594717495) RBC/HPF (test code = See_Comment [Autom ated message] 0023671742) The system [employer] generated this result transmit bhaskar reference range : 0 - 3 HPF. The refe rence range was not u sed to interpret th is result as normal/abnormal . WBC/HPF (test code = <1 See_Comment [Autom ated message] 5126158533) The system [employer] generated this result transmit bhaskar reference range : 0 - 5 HPF. The refe rence range was not u sed to interpret th is result as normal/abnormal . BACTERIA (test code = Negative Negative 6240151322) AMORPHOUS (test code = Rare Rare HPF 0497053502) Lab Interpretation (test Abnormal code = 94332-0) [facility]inteD-[id number] 13:09:19 Test Item Value Reference Interpretation Comments Range D-DIMER (test code = See_Comment [Autom ated 8482403782) message] The system which generated this result [...] diagnosis. Lab Interpretation Normal (test code = 58194-1) [facility]. METABOLIC PANEL (76468)2020-11-22 13:06:21 Test Item Value Reference Range Interpretation Comments NA (test code = 139 mmol/L 135-145 6357686331) K (test code = 4.1 mmol/L 3.5-5.0 0945333911) CL (test code = 106 mmol/L 98-108 0095092374) CO2 TOTAL (test code = 20 mmol/L 23-31 L 9238897720) AGAP (test code = 2-16 3812228428) BUN (test code = 12 mg/dL 7-23 3328987744) GLUCOSE (test code = 92 mg/dL 70-110 6743488562) CREATININE (test code = 0.58 mg/dL 0.50-1.04 3101286555) TOTAL BILI (test code = 0.2 mg/dL 0.1-1.0 2489321255) CALCIUM (test code = 9.4 mg/dL 8.6-10.6 2988565714) T PROTEIN (test code = 7.6 g/dL 6.3-8.2 8981573053) ALBUMIN (test code = 4.5 g/dL 3.5-5.0 0149281765) ALK PHOS (test code = 70 U/L 34-122 0582176679) ALTv (test code = 14 U/L 5-35 1742-6) AST(SGOT) (test code = 29 U/L 13-40 0109785532) eGFR (test code = mL/min/1.73m2 6779773199) PAULA (test code = PAULA) Association of [...] tests). Lab Interpretation Abnormal (test code = 20961-2) [facility]inteETHANOL2021-05-30 13:06:21 Test Item Value Reference Range Interpretation Comments ALCOHOL (test code = 112 mg/dL 3109871012) PAULA (test code = Toxic Greater than or PAULA) equal to 80 mg/dL. NOTE: Whole blood values are approximately 10% to 15% lower than serum and plasma. [facility]inteLIPASE2021-05-30 13:06:21 Test Item Value Reference Range Interpretation Comments LIPASE (test code = 5414324272) 118 U/L 0-220 Lab Interpretation (test code = Normal 61086-9) [facility] WITH [id number] 13:00:59 Test Item Value Reference Range Interpretation Comments WBC (test code = See_Comment [Automated message] 6690-2) The system [employer] generated this result transmitted ref erence range: 4.30 - 1 1.10 10*3/?L. The re ference range was not u sed to interpret this result as normal/abnor mal. RBC (test code = See_Comment [Automated message] 629-8) The system [employer] generated this result transmitted ref erence range: [...] RDW-SD (test code 44.0 fL 39.0-49.9 = 20389-1) RDW-CV (test code 13.0 % 12.0-15.5 = 788-0) PLT (test code = See_Comment [Automated message] 777-3) The system whic h generated this result transmitted ref erence range: 166 - 35 8 10*3/?L. The re ference range was not u sed to interpret this result as normal/abnor mal. MPV (test code = 9.9 fL 9.5-12.9 31864-9) NRBC/100 WBC (test See_Comment [Automat ed message] code = 4154644760) The syste m which generated this result transmitted ref erence range: 0.0 - 10 .0 /100 WBCs. The refer ence range was not u sed to interpret this result as normal/abnor mal. NRBC x10^3 (test <0.01 See_Comment [Automated message] code = 0618679205) The syste m which generated this result transmitted ref erence range: 10*3/?L. The reference range was not used to interpr et this result as normal/abnormal . GRAN MAT (NEUT) % 57.8 % (test code = 770-8) IMM GRAN % (test 0.30 % code = 0381776117) LYMPH % (test code 31.0 % = 736-9) MONO % (test code 8.7 % = 5905-5) EOS % (test code = 1.5 % 713-8) BASO % (test code 0.7 % = 706-2) GRAN MAT 3.37 10*3/uL 1.88-7.09 x10^3(ANC) (test code = 4344408262) IMM GRAN x10^3 <0.03 0.00-0.06 (test code = 4605240564) LYMPH x10^3 (test 1.81 10*3/uL 1.32-3.29 code = 731-0) MONO x10^3 (test 0.51 10*3/uL 0.33-0.92 code = 742-7) EOS x10^3 (test 0.09 10*3/uL 0.03-0.39 code = 711-2) BASO x10^3 (test 0.04 10*3/uL 0.01-0.07 code = 704-7) [facility]inteDR[facility] PANEL 2 [id number] 11:58:10 Test Item Value Reference Range Interpretation Comments AMPHET (test code = Negative Negative 3654101706) ANN U (test code = Negative Negative 4919999552) BENZO U (test code = Negative Negative 8869113508) Cocaine Metabolite (test Negative Negative code = 2376433881) METHADONE (test code = Negative Negative 3726633229) OPIATES (test code = Negative Negative 1815238360) PCP (test code = Negative Negative 8122164704) THC (test code = Negative Negative 9494675231) PAULA (test code = PAULA) Urine Drug [...] testing). Lab Interpretation (test Normal code = 45379-7) [facility]inteUrinalysis2021-04-29 10:57:49 Test Item Value Reference Range Interpretation Comments APPEARANCE (test code = Clear Clear 5736783370) COLOR (test code = Colorless Yellow A 7425159849) PH (test code = 4.8-8.0 3154375836) SP GRAVITY (test code = 1.003-1.030 8539114851) GLU U QUAL (test code = Normal Normal 9305752860) BLOOD (test code = 2+ Negative A 1446653150) KETONES (test code = Negative Negative 0822228427) PROTEIN (test code = Negative Negative 2887-8) UROBILIN (test code = Normal Normal 5208871022) BILIRUBIN (test code = Negative Negative 1353290762) NITRITE (test code = Negative Negative 8103180731) LEUK JONATHON (test code = Negative Negative 3627160776) RBC/HPF (test code = See_Comment H [Autom ated message] 4648817729) The system [employer] generated this result transmit bhaskar reference range : 0 - 3 HPF. The refe rence range was not u sed to interpret th is result as normal/abnormal . WBC/HPF (test code = <1 See_Comment [Autom ated message] 7010894981) The system [employer] generated this result transmit bhaskar reference range : 0 - 5 HPF. The refe rence range was not u sed to interpret th is result as normal/abnormal . BACTERIA (test code = Negative Negative 8700927116) SQ EPITH (test code = <1 See_Comment [Auto mated message] 1292465949) The system [employer] generated this result transmit bhaskar reference range : <=2 HPF. The refere nce range was not u sed to interpret th is result as normal/abnormal . ASCORBIC ACID (test code Negative = 1812142755) Lab Interpretation (test Abnormal code = 46418-1) [id number] 10:29[facility]23 Test Item Value Reference Range Interpretation Comments TROPONIN I (test 0.005 ng/mL See_Comment [Automated code = 5869503639) message] The system which generated this result [...] ? Lab Interpretation Normal (test code = 80476-7) [facility]CT [id number] 10:12:00 Test Item Value Reference Range Interpretation Comments POCT PREG (test code = 1605) negative On board controls acceptable with C present Line (test code = 3574) POCT PREG LOT # (test code = 3575) HCG Lab Interpretation (test code = Normal 73432-4) [facility]inteTroponin [id number] 08:15:07 Test Item Value Reference Range Interpretation Comments TROPONIN I (test 0.007 ng/mL See_Comment [Automated code = 6730237166) message] The system which generated this result [...] ? Lab Interpretation Normal (test code = 90720-1) [facility]COVID-19 (ID NOW RAPID TESTING)2020-10-22 08:08:44 Test Item Value Reference Range Interpretation Comments SARS-CoV-2 Rapid ID NOW Not Detected Not Detected (test code = 71256-0) PAULA (test code = PAULA) ID NOW COVID-19 Assay is an isothermal nucleic acid amplification test intended for the qualitative detection of nucleic acid from SARS-CoV-2 viral RNA in nasopharyngeal (TENNIS COACH) specimens. It is used under Emergency Use [...] indicated. Lab Interpretation Normal (test code = 62242-9) [facility] (NA, K, CL, CO2, GLUCOSE, BUN, CREATININE, CA)2020-10-22 08:00:24 Test Item Value Reference Range Interpretation Comments NA (test code = 136 mmol/L 135-145 2454616014) K (test code = 5.1 mmol/L 3.5-5.0 H Slight 1665168857) hemolysis CL (test code = 107 mmol/L 98-108 2129254364) CO2 TOTAL (test code 22 mmol/L 23-31 L = 7069240477) AGAP (test code = 2-16 4326188995) BUN (test code = 10 mg/dL 7-23 Slight 7312365815) hemolysis GLUCOSE (test code = 107 mg/dL 70-110 5067113855) CREATININE (test code 0.56 mg/dL 0.50-1.04 = 4763448953) CALCIUM (test code = 8.6 mg/dL 8.6-10.6 2136558556) eGFR (test code = mL/min/1.73m2 3555218276) PAULA (test code = PAULA) Association of [...] tests). Lab Interpretation Abnormal (test code = 09446-3) [facility]inteHepatic Function Panel (ALB, T.PRO, BILI T, BU/BC, ALT, AST, ALK PHOS)2020-10-22 08:00:24 Test Item Value Reference Range Interpretation Comments TOTAL BILI (test code = 1417199165) 0.3 mg/dL 0.1-1.1 BILI UNCON (test code = 0243895592) 0.1 mg/dL 0.1-1.1 BILI CONJ (test code = 8533504865) 0.0 mg/dL 0.0-0.3 T PROTEIN (test code = 1276238268) 7.0 g/dL 6.3-8.2 ALBUMIN (test code = 2561136298) 3.9 g/dL 3.5-5.0 ALK PHOS (test code = 0412063936) 112 U/L 34-122 ALTv (test code = 1742-6) 292 U/L 5-35 H AST(SGOT) (test code = 1899280793) 322 U/L 13-40 H Lab Interpretation (test code = Abnormal 78696-7) [facility] PointeEthanol [id number] 08:00:24 Test Item Value Reference Range Interpretation Comments ALCOHOL (test code = 67 mg/dL 4938675257) PAULA (test code = Toxic Greater than or PAULA) equal to 80 mg/dL. NOTE: Whole blood values are approximately 10% to 15% lower than serum and plasma. [facility] PointeLipase [id number] 08:00:24 Test Item Value Reference Range Interpretation Comments LIPASE (test code = 7359752428) 165 U/L 0-220 Lab Interpretation (test code = Normal 72251-8) [facility] PointeCBC with [id number] 07:55:00 Test Item Value Reference Range Interpretation Comments WBC (test code = See_Comment [Automated 9190-2) message] The sy stem which generated this result transmitted reference range : 4.30 - 11.10 10*3/?L. The reference range was not used to interpret this result as normal/abnormal . RBC (test code = See_Comment [Automated 339-8) message] The sy stem which generated this [...] RDW-SD (test code = 43.8 fL 39.0-49.9 12352-6) RDW-CV (test code = 13.2 % 12.0-15.5 788-0) PLT (test code = See_Comment [Automated 777-3) message] The sy stem which generated this result transmitted reference range : 166 - 358 10*3/ ?L. The reference r micah was not used to interpret this result as normal/abnormal . MPV (test code = 9.2 fL 9.5-12.9 L 05403-6) NRBC/100 WBC (test See_Comment [Automat ed code = 0007348453) message] The system which generated this result transmitted reference range : 0.0 - 10.0 /100 WBCs. The refer ence range was not u sed to interpret th is result as normal/abnormal . NRBC x10^3 (test code <0.01 See_Comment [Auto mated = 4063215035) message] The s ystem which generated this result transmitted reference range : 10*3/?L. The reference range was not used to interpret this result as normal/abnormal . GRAN MAT (NEUT) % 64.0 % (test code = 770-8) IMM GRAN % (test code 0.40 % = 2850329378) LYMPH % (test code = 24.3 % 736-9) MONO % (test code = 8.9 % 5905-5) EOS % (test code = 1.4 % 713-8) BASO % (test code = 1.0 % 706-2) GRAN MAT x10^3(ANC) 3.18 10*3/uL 1.88-7.09 (test code = 3062468757) IMM GRAN x10^3 (test <0.03 0.00-0.06 code = 1176186676) LYMPH x10^3 (test code 1.21 10*3/uL 1.32-3.29 L = 731-0) MONO x10^3 (test code 0.44 10*3/uL 0.33-0.92 = 742-7) EOS x10^3 (test code = 0.07 10*3/uL 0.03-0.39 711-2) BASO x10^3 (test code 0.05 10*3/uL 0.01-0.07 = 704-7) Lab Interpretation Abnormal (test code = 25919-2) [facility] 2 [id number] 18:12:05 No acute cardiopulmonary abnormality. Preliminary Report Dictated by Resident: Kevyn Mills MD., have reviewed this study and agree with theabove report.EXAM: XR CHEST 2 VW 10/15/2020 8:46 AM HISTORY: 40 years-old Female with CP COMPARISON: Chest x-ray 09/25/2020 FINDINGS: Lungs: The lungs are clear. No focal opacities. No pleural abnormalitiesare detected. Heart/Mediastinum:The cardiomediastinal silhouette is normal in size. Musculoskeletal: Lower cervical spine uncovertebral and facet arthropathywith mild spondylosis are partially visualized. [facility], Radiant Results Inft User - 10/15/2020 1:13 PM CDTEXAM: XR CHEST 2 VW 10/15/2020 8:46 AMHISTORY: 40 years-old Female with CPCOMPARISON: Chest x-ray 09/25/2020FINDINGS:Lungs: The lungs are clear. No focal opacities. No pleural abnormalitiesare detected.Heart/Mediastinum: The cardiomediastinal silhouette is normal in size.Musculoskeletal: Lower cervical spine uncovertebral and facet arthropathywith mild spondylosis are partially visualized.IMPRESSIONNo acute cardiopulmonary abnormality.Preliminary Report Dictated by Resident:Kevyn Parada MD., have reviewed this study and agree with theabove report.[facility]inteCREATINE [id number] 17:21:00 Test Item Value Reference Range Interpretation Comments CK (test code = 4480107676) 765 U/L 33-194 H Lab Interpretation (test code = Abnormal 97042-2) [facility] PointeLipase [id number] 17:20:59 Test Item Value Reference Range Interpretation Comments LIPASE (test code = 0488180240) 135 U/L 0-220 Lab Interpretation (test code = Normal 98784-8) [facility] PointeTroponin [id number] 16:25:05 Test Item Value Reference Range Interpretation Comments TROPONIN I (test 0.007 ng/mL See_Comment [Automated code = 7374319358) message] The system which generated this result [...] ? Lab Interpretation Normal (test code = 38142-9) [facility]inteN-TERMINAL [id number] 16:25:04 Test Item Value Reference Range Interpretation Comments NT-proBNP (test code 178 pg/mL See_Comment H [Autom ated = 2837239339) message] The system which generated this result transmitted reference range : <=125. The reference range was not used to interpret this result as normal/abnormal . PAULA (test code = PAULA) Biotin has been reported to cause a negative bias, interpret results relative to patient's use of biotin. Lab Interpretation Abnormal (test code = 36041-0) [facility] PointeBasi Metabolic Panel (NA, K, CL, CO2, GLUCOSE, BUN, CREATININE, CA)2020-10-15 16:13:24 Test Item Value Reference Range Interpretation Comments NA (test code = 135 mmol/L 135-145 0601639569) K (test code = 4.0 mmol/L 3.5-5.0 Slight 5304462784) hemolysis CL (test code = 109 mmol/L 98-108 H 8036704505) CO2 TOTAL (test code 21 mmol/L 23-31 L = 4236751627) AGAP (test code = 2-16 6870913318) BUN (test code = 11 mg/dL 7-23 Slight 1974699543) hemolysis GLUCOSE (test code = 98 mg/dL 70-110 6439950117) CREATININE (test code 0.54 mg/dL 0.50-1.04 = 6160060251) CALCIUM (test code = 8.1 mg/dL 8.6-10.6 L 5200706300) eGFR (test code = mL/min/1.73m2 7046833546) PAULA (test code = PAULA) Association of [...] tests). Lab Interpretation Abnormal (test code = 25095-3) [facility]inteHepatic Function Panel (ALB, T.PRO, BILI T, BU/BC, ALT, AST, ALK PHOS)2020-10-15 16:13:24 Test Item Value Reference Range Interpretation Comments TOTAL BILI (test code = 6420880345) 0.3 mg/dL 0.1-1.1 BILI UNCON (test code = 0246964284) 0.1 mg/dL 0.1-1.1 BILI CONJ (test code = 3470591123) 0.0 mg/dL 0.0-0.3 T PROTEIN (test code = 8291224566) 6.0 g/dL 6.3-8.2 L ALBUMIN (test code = 1030268536) 3.2 g/dL 3.5-5.0 L ALK PHOS (test code = 0449918593) 59 U/L 34-122 ALTv (test code = 1742-6) 74 U/L 5-35 H AST(SGOT) (test code = 2979432016) 100 U/L 13-40 H Lab Interpretation (test code = Abnormal 22596-5) [facility]intePregnancy Test, [id number] 16:12:38 Test Item Value Reference Range Interpretation Comments PREG SERUM (test code Negative = 1204017470) PAULA (test code = PAULA) Less than 10 IU/L. ?If low titer or ectopic is suspected, resubmit specimen in 48-72 hours. [facility] PointeTroponin [id number] 14:29:39TROPONIN IComment: Possible Contaminated specimen. ?Talked to Dr Mai to reorder Troponin and BNP. This is a corrected result. ?Previous result was 0.007 ng/mL on 10/15/2020 [facility] 0903 [facility]Equal or Less than 0.034 [...] ?[facility] PointeN- TERMINAL [id number] 14:28:48NT-proBNPComment: Possible Contaminated specimen. ?Talked to Dr Mai to reorder Troponin and BNP. This is a corrected result. ?Previous result was 41 pg/mL on 10/15/2020 at 0904 [facility] SERVICESBiotin has been reported to cause a negative bias, interpret results relative to patient's use of biotin.[facility] PointeLipase [id number] 14:09:09LIPASEComment: Possible contamination of specimen. Dr Mai to reorder for recollection. This is a corrected result. ?Previous result was 16 U/L on 10/15/2020 at 0[facility]UnCH[facility] HospitalCREATINE [id number] 14:08:28CKComment: Possible contamination of specimen. Dr Mai to reorder for recollection. This is a corrected result. ?Previous result was 230 U/L on 10/15/2020 at 0852 [facility] SERVICESUnCH[facility]razosport HospitalCT HEAD WO CONTRAST 2020-10-15 13:47:51 No acute intracranial hemorrhage or mass effect. CT HEAD WO CONTRAST HISTORY: Mental status change,unknown cause , chest pain, htn, nausea,blurry vision x 1 day. COMPARISON: 04/11/20. ? TECHNIQUE: Routine unenhanced brain CT. ? FINDINGS: No acute intracranial hemorrhage, extracerebral fluid collection, midlineshift or mass effect. No acute transcortical infarction. Left inferior basal ganglia dilatedperivascular space.Ventricles are normal. Cerebral volume is age appropriate. No depressed calvarial fracture. Visualized paranasal sinuses are essentially clear. [facility], Radiant Results Inft User - 10/15/2020 8:48 AM CDTCT HEAD WO CONTRASTHISTORY: Mental status change, unknown cause , chest pain, htn,nausea,blurry vision x 1 day. COMPARISON: 04/11/20. TECHNIQUE: Routine unenhanced brain CT. FINDINGS:No acute intracranial hemorrhage, extracerebral fluid collection, midlineshift or mass effect. No acu te transcortical infarction. Left inferior basal ganglia dilatedperivascular space.Ventricles are normal. Cerebral volume is age appropriate. No depressed calvarial fracture. Visualized paranasal sinuses are essentially clear. IMPRESSIONNo acute intracranial hemorrhage or mass effect.[facility] PointeXR CHEST 1 [id number] 14:06:46 No acute cardiopulmonary process. Preliminary Report Dictated by Resident: Hany Jerome MD., have reviewed this study and agree with theabove report.EXAM: XR CHEST 1 VW HISTORY: chest pain COMPARISON: Chest radiograph on 09/12/2020 TECHNIQUE: AP view radiograph of the chest FINDINGS: The lungs are clear. No pleural effusion or pneumothorax. The heart size is normal. No acute osseous abnormality is identified. [facility], Radiant Results Inft User - 10/13/2020 9:07 AM CDTEXAM: XR CHEST 1 VWHISTORY: chest pain COMPARISON: Chest radiograph on 09/12/2020 TECHNIQUE: AP view radiograph of the chestFINDINGS:The lungs are clear. No pleural effusion or pneumothorax. The heart size is normal. No acute osseous abnormality is identified.IMPRESSIONNo acute cardiopulmonary process.Preliminary Report Dictated by Resident: Hany Willard MD., have reviewed this study and agree with theabove report.[facility] PointeCOMP. METABOLIC PANEL (08034)2020-10-13 11:48:17 Test Item Value Reference Range Interpretation Comments NA (test code = 137 mmol/L 135-145 2086021301) K (test code = 4.2 mmol/L 3.5-5.0 Slight 5174209562) hemolysis CL (test code = 110 mmol/L 98-108 H 3617157835) CO2 TOTAL (test code 18 mmol/L 23-31 L = 2023621905) AGAP (test code = 2-16 9426158977) BUN (test code = 13 mg/dL 7-23 Slight 8039932394) hemolysis GLUCOSE (test code = 104 mg/dL 70-110 8926579251) CREATININE (test code 0.63 mg/dL 0.50-1.04 = 4903481454) TOTAL BILI (test code 0.5 mg/dL 0.1-1.1 = 4082843599) CALCIUM (test code = 8.1 mg/dL 8.6-10.6 L 4593322127) T PROTEIN (test code 7.0 g/dL 6.3-8.2 = 2311672037) ALBUMIN (test code = 3.8 g/dL 3.5-5.0 0163443025) ALK PHOS (test code = 55 U/L 34-122 Slight 7774855133) hemolysis ALTv (test code = 49 U/L 5-35 H 1742-6) AST(SGOT) (test code 72 U/L 13-40 H Slight = 1256650890) hemolysis eGFR (test code = mL/min/1.73m2 6705889886) PAULA (test code = PAULA) Association of [...] tests). Lab Interpretation Abnormal (test code = 93735-9) [facility] [id number] 11:42:55 Test Item Value Reference Range Interpretation Comments AMPHET (test code = Presumptive Positive Negative A 3724181053) Cocaine Metabolite (test Negative Negative code = 7820285169) OPIATES (test code = Presumptive Positive Negative A 5134330415) THC (test code = Negative Negative 8720423728) PAULA (test code = PAULA) Urine Drug Cutoff Ranges Amphetamine: ? 1,000 ng/mLCocaine: ? 150 ng/mLOpiates: ? 300 ng/mLCannabinoids: ?50 ng/mL The results are to be used only for medical (i.e., treatment) purposes. Unconfirmed screening results must not be used for non-medical purposes (e.g., employment testing, legal testing). Lab Interpretation (test Abnormal code = 07371-7) [facility] PANEL 2 [id number] 11:42:35 Test Item Value Reference Range Interpretation Comments AMPHET (test code = Presumptive Positive Negative A 8096864639) ANN U (test code = Negative Negative 9530107752) BENZO U (test code = Negative Negative 6505214989) Cocaine Metabolite (test Negative Negative code = 3701647124) METHADONE (test code = Negative Negative 5236205330) OPIATES (test code = Presumptive Positive Negative A 7153366829) PCP (test code = Negative Negative 3736713452) THC (test code = Negative Negative 5052416139) PAULA (test code = PAULA) Urine Drug [...] testing). Lab Interpretation (test Abnormal code = 04284-2) [facility]D-[id number] 11:32:36 Test Item Value Reference Interpretation Comments Range D-DIMER (test code = See_Comment [Autom ated 0675644921) message] The system which generated this result [...] diagnosis. Lab Interpretation Normal (test code = 51031-9) [facility]INALYSIS2021-04-20 11:29:49 Test Item Value Reference Range Interpretation Comments APPEARANCE (test code = Clear Clear 1166579524) COLOR (test code = Straw Yellow A 0445670802) PH (test code = 4.8-8.0 2813015347) SP GRAVITY (test code = 1.003-1.030 9817875836) GLU U QUAL (test code = Normal Normal 8420250366) BLOOD (test code = Negative Negative 1913445524) KETONES (test code = Negative Negative 1956581668) PROTEIN (test code = Negative Negative 2887-8) UROBILIN (test code = Normal Normal 9138734332) BILIRUBIN (test code = Negative Negative 0303712828) NITRITE (test code = Negative Negative 4254944216) LEUK JONATHON (test code = Negative Negative 6474209133) RBC/HPF (test code = <1 See_Comment [Autom ated message] 0883912166) The system [employer] generated this result transmitted ref erence range: 0 - 3 HP F. The reference range was not used to int erpret this result as normal/abnormal . WBC/HPF (test code = <1 See_Comment [Autom ated message] 4610609049) The system [employer] generated this result transmitted ref erence range: 0 - 5 HP F. The reference range was not used to int erpret this result as normal/abnormal . BACTERIA (test code = Few Negative A 9489139921) SQ EPITH (test code = See_Comment [Auto mated message] 1485757058) The system [employer] generated this result transmitted ref erence range: <=2 HPF. The reference range was not used to int erpret this result as normal/abnormal . Lab Interpretation (test Abnormal code = 21997-5) [facility] [id number] 11:13:00 Test Item Value Reference Range Interpretation Comments POCT PREG (test code = 1605) negative On board controls acceptable with present C Line (test code = 3574) POCT PREG LOT # (test code = 3575) [id number] POCT PREG TEST DATE (test 2022-05-25 code = 3576) Lab Interpretation (test code = Normal 72434-6) [facility]inteTHYROID STIMULATING [id number] 11:12:54 Test Item Value Reference Range Interpretation Comments TSH (test code = See_Comment H [Automated message] 0213679530) The system [employer] generated this result transmitted ref erence range: 0.45 - 4 .70 mIU/L. The refe rence range was not u sed to interpret this result as normal/abnor mal. Lab Interpretation (test Abnormal code = 50043-8) [facility]inteTroponin [id number] 10:54:13 Test Item Value Reference Range Interpretation Comments TROPONIN I (test 0.013 ng/mL See_Comment [Automated code = 1352641457) message] The system which generated this result [...] ? Lab Interpretation Normal (test code = 60939-3) [facility]inteEthanol [id number] 10:53:52 Test Item Value Reference Range Interpretation Comments ALCOHOL (test code = <10 mg/dL 0213652830) PAULA (test code = Toxic Greater than or PAULA) equal to 80 mg/dL. NOTE: Whole blood values are approximately 10% to 15% lower than serum and plasma. [facility] with [id number] 10:49:12 Test Item Value Reference Range Interpretation Comments WBC (test code = See_Comment [Automated message] 6190-2) The system [employer] generated this result transmitted ref erence range: 4.30 - 1 1.10 10*3/?L. The re ference range was not u sed to interpret this result as normal/abnor mal. RBC (test code = See_Comment [Automated message] 839-8) The system [employer] generated this result transmitted ref erence range: [...] RDW-SD (test code 43.8 fL 39.0-49.9 = 01065-0) RDW-CV (test code 12.9 % 12.0-15.5 = 788-0) PLT (test code = See_Comment [Automated message] 777-3) The system whic h generated this result transmitted ref erence range: 166 - 35 8 10*3/?L. The re ference range was not u sed to interpret this result as normal/abnor mal. MPV (test code = 9.5 fL 9.5-12.9 32471-5) NRBC/100 WBC (test See_Comment [Automat ed message] code = 9916187333) The syste m which generated this result transmitted ref erence range: 0.0 - 10 .0 /100 WBCs. The refer ence range was not u sed to interpret this result as normal/abnor mal. NRBC x10^3 (test <0.01 See_Comment [Automated message] code = 4032205658) The syste m which generated this result transmitted ref erence range: 10*3/?L. The reference range was not used to interpr et this result as normal/abnormal . GRAN MAT (NEUT) % 66.8 % (test code = 770-8) IMM GRAN % (test 0.30 % code = 6624993091) LYMPH % (test code 21.6 % = 736-9) MONO % (test code 9.2 % = 5905-5) EOS % (test code = 1.4 % 713-8) BASO % (test code 0.7 % = 706-2) GRAN MAT 4.73 10*3/uL 1.88-7.09 x10^3(ANC) (test code = 4369433816) IMM GRAN x10^3 <0.03 0.00-0.06 (test code = 0258689426) LYMPH x10^3 (test 1.53 10*3/uL 1.32-3.29 code = 731-0) MONO x10^3 (test 0.65 10*3/uL 0.33-0.92 code = 742-7) EOS x10^3 (test 0.10 10*3/uL 0.03-0.39 code = 711-2) BASO x10^3 (test 0.05 10*3/uL 0.01-0.07 code = 704-7) [facility]inteLipase [id number] 10:44:47 Test Item Value Reference Range Interpretation Comments LIPASE (test code = 7249434414) 172 U/L 0-220 Lab Interpretation (test code = Normal 90419-4) [facility] PointeProthrombin Time (PT) / [id number] 10:43:11 Test Item Value Reference Range Interpretation Comments PROTIME PATIENT (test See_Comment [Auto mated message] code = 5964-2) The system [employer] generated this result transmitted ref erence range: 10.1 - 1 2.6 Seconds. The re ference range was not u sed to interpret this result as normal/abnor mal. INR (test code = 6301-6) Nor mal INR <1.1; Warfarin Therap eutic range 2.0 to 3. 0 or 2.5 to 3.5, dep ending upon the indica tions. Lab Interpretation (test Normal code = 39345-6) [facility] PointeaPTT2021-04-20 10:43:11 Test Item Value Reference Range Interpretation Comments APTT Patient (test code See_Comment L [Au tomated message] = 3173-2) The system [employer] generated this result transmitted ref erence range: 26 - 36 Seconds. The reference range was not used to int erpret this result as normal/abnormal . Lab Interpretation (test Abnormal code = 06243-5) [facility]COVID-19 (ID NOW RAPID TESTING)2020-10-13 10:28:07 Test Item Value Reference Range Interpretation Comments SARS-CoV-2 Rapid ID NOW Not Detected Not Detected (test code = 16743-5) PAULA (test code = PAULA) ID NOW COVID-19 Assay is an isothermal nucleic acid amplification test intended for the qualitative detection of nucleic acid from SARS-CoV-2 viral RNA in nasopharyngeal (TENNIS COACH) specimens. It is used under Emergency Use [...] indicated. Lab Interpretation Normal (test code = 80895-5) [facility]intePREGNANCY TEST, [id number] 03:54:33 Test Item Value Reference Range Interpretation Comments PREG SERUM (test code Negative = 6807085225) PAULA (test code = PAULA) Less than 10 IU/L. ?If low titer or ectopic is suspected, resubmit specimen in 48-72 hours. [facility] Metabolic Panel (NA, K, CL, CO2, GLUCOSE, BUN, CREATININE, CA)2020-09-17 03:26:58 Test Item Value Reference Range Interpretation Comments NA (test code = 135 mmol/L 135-145 4814485773) K (test code = 3.8 mmol/L 3.5-5.0 3588604767) CL (test code = 99 mmol/L 98-108 4202719463) CO2 TOTAL (test code = 24 mmol/L 23-31 0478926059) AGAP (test code = 2-16 4734620545) BUN (test code = 9 mg/dL 7-23 6105875318) GLUCOSE (test code = 100 mg/dL 70-110 8227360970) CREATININE (test code 0.74 mg/dL 0.50-1.04 = 6644678451) CALCIUM (test code = 9.1 mg/dL 8.6-10.6 3501080553) eGFR Calculation mL/min/1.73m2 (Non-) (test code = 2046151669) eGFR Calculation mL/min/1.73m2 () (test code = 3972073049) PAULA (test code = PAULA) Association of [...] [facility] (ALB, T.PRO, BILI T, BU/BC, ALT, AST, ALK PHOS)2020-09-17 03:26:58 Test Item Value Reference Range Interpretation Comments TOTAL BILI (test code = 0345058668) 0.4 mg/dL 0.1-1.1 BILI UNCON (test code = 2003850829) 0.2 mg/dL 0.1-1.1 BILI CONJ (test code = 7943464876) 0.0 mg/dL 0.0-0.3 T PROTEIN (test code = 3381041196) 8.6 g/dL 6.3-8.2 H ALBUMIN (test code = 3925016143) 5.1 g/dL 3.5-5.0 H ALK PHOS (test code = 3751996545) 114 U/L 34-122 ALTv (test code = 1742-6) 28 U/L 5-35 AST(SGOT) (test code = 0191131466) 47 U/L 13-40 H Lab Interpretation (test code = Abnormal 53243-2) [facility] PointeLipase [id number] 03:26:58 Test Item Value Reference Range Interpretation Comments LIPASE (test code = 6061042168) 81 U/L 0-220 Lab Interpretation (test code = Normal 58496-3) [facility] with Wscfoleunqhm6788-88-00 03:13:16 Test Item Value Reference Range Interpretation [...] RDW-SD (test code = 42.8 fL 39.0-49.9 26404-0) RDW-CV (test code = 12.8 % 12.0-15.5 788-0) PLT (test code = See_Comment [Automated 777-3) message] The sy stem which generated this result transmitted reference range : 166 - 358 10*3/ ?L. The reference r micah was not used to interpret this result as normal/abnormal . MPV (test code = 8.9 fL 9.5-12.9 L 96072-8) NRBC/100 WBC (test See_Comment [Automat ed code = 6622340425) message] The system which generated this result transmitted reference range : 0.0 - 10.0 /100 WBCs. The refer ence range was not u sed to interpret th is result as normal/abnormal . NRBC x10^3 (test code <0.01 See_Comment [Auto mated = 3603596211) message] The s ystem which generated this result transmitted reference range : 10*3/?L. The reference range was not used to interpret this result as normal/abnormal . GRAN MAT (NEUT) % 44.7 % (test code = 770-8) IMM GRAN % (test code 0.50 % = 5017530602) LYMPH % (test code = 44.6 % 736-9) MONO % (test code = 8.2 % 5905-5) EOS % (test code = 0.9 % 713-8) BASO % (test code = 1.1 % 706-2) GRAN MAT x10^3(ANC) 2.84 10*3/uL 1.88-7.09 (test code = 3512865238) IMM GRAN x10^3 (test 0.03 10*3/uL 0.00-0.06 code = 0136372566) LYMPH x10^3 (test code 2.83 10*3/uL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 10*3/uL 1.88-7.09 (test code = 0991433977) IMM GRAN x10^3 (test <0.03 0-0.06 code = 0016718756) LYMPH x10^3 (test code 1.69 10*3/uL 1.32-3.29 = 731-0) MONO x10^3 (test code 0.34 10*3/uL 0.33-0.92 = 742-7) EOS x10^3 (test code = 0.11 10*3/uL 0.03-0.39 711-2) BASO x10^3 (test code 0.05 10*3/uL 0.01-0.07 = 704-7) Lab Interpretation Abnormal (test code = 74103-3) [facility]inteXR CHEST 1 [id number] 16:58:56* * * * * * * * ORIGINAL REPORT * * * * * * * *EXAM: XR CHEST 1 VW HISTORY: Hx of cardiomegaly and angina, recent ED visit for CP, states thather heart is? COMPARISON: None. FINDINGS: The heart and great vessels are normal and the lungs are well expanded andclear.[facility], Radiant Results Inft User - 03/06/2019 11:59 AM CDT* * * * * * * * ORIGINAL REPORT * * * * * * * *EXAM: XR CHEST 1 VWHISTORY: Hx of cardiomegaly and angina, recent ED visit for CP, states thather heart is COMPARISON: None.FINDINGS:Theheart and great vessels are normal and the lungs are well expanded andclear.[facility]
[2022-07-05 18:10] LABS: ALT/SGPT 32 U/L (13-56); AST/SGOT 22 U/L (15-37); Albumin 3.5 g/dL (3.4-5.0); Alkaline Phosphatase 64 U/L (45-117); Bilirubin Total 0.4 mg/dL (0.2-1.0); Protein, Total 7.8 g/dL (6.4-8.2)
[2022-07-05 18:20] LABS: Bilirubin Direct < 0.1 mg/dL (0-0.2)
--- NOTE | 2022-07-05 18:32 | ER ---
Nurse's Notes [facility] Name: Denise Wick Age: 42 yrs Sex: Female : 1980 Arrival Date: 07/05/2022 Time: 16:36 Bed 6 Private MD: Diagnosis: Accidental overdose of opiate Presentation: 07/05 16:39 Chief complaint: Patient states: Took 2 oxycodone around 1410, then took 2 hydrocodone ll1 at 1445. Passed out at home, friend gave 1 dose of narcan, then she woke up. N/V since. Coronavirus screen: Vaccine status: Patient reports being unvaccinated. Client denies travel out of the [place] in the last 14 days. At this time, the client does not indicate any symptoms associated with coronavirus-19. Ebola Screen: Patient denies travel to an Ebola-affected area in the 21 days before illness onset. Initial Sepsis Screen: Does the patient meet any 2 criteria? No. Patient's initial sepsis screen is negative. Does the patient have a suspected source of infection? No. Patient's initial sepsis screen is negative. Risk Assessment: Do you want to hurt yourself or someone else? Patient reports no desire to harm self or others. Onset of symptoms was July 05, 2022. 16:39 Method Of Arrival: Wheelchair ll1 16:39 Acuity: CHRISTINA 3 ll1 Triage Assessment: 16:42 General: Appears uncomfortable, Behavior is calm, cooperative, appropriate for age. ll1 Pain: Denies pain. Neuro: Reports dizziness, paresthesias a syncopal episode weakness. Cardiovascular: No deficits noted. Respiratory: No deficits noted. GI: Reports nausea. Historical: - Allergies: 16:41 Codeine; ll1 16:41 PENICILLINS; ll1 16:41 Toradol; ll1 16:41 Tramadol HCl; ll1 - PMHx: 16:41 Angina; Anxiety; Bipolar disorder; Hypertension; Hypothyroidism; ll1 - PSHx: 16:41 section; Ligation of fallopian tube; ll1 - Immunization history:: Client reports having NOT received the Covid vaccine. - Social history:: Smoking status: Patient reports the use of cigarette tobacco products, smokes one-half pack cigarettes per day. Screenin:37 [facility] ED Fall Risk Assessment (Adult) History of falling in the last 3 months, iw including since admission No falls in past 3 months (0 pts). Abuse screen: Denies threats or abuse. Denies injuries from another. Nutritional screening: No deficits noted. Tuberculosis screening: No symptoms or risk factors identified. Assessment: 17:37 Reassessment: Patient appears in no apparent distress at this time. Patient and/or iw family updated on plan of care and expected duration. Pain level reassessed. Patient is alert, oriented x 3, equal unlabored respirations, skin warm/dry/pink. Overdose: 18:53 Sunflower Suicide Severity Screening: "In the past month, have you wished you were iw or wished you could go to sleep and not wake up?" Patient responds "yes." Based off client's responses, additional C-SSRS screening questions required. Vital Signs: 16:39 BP 132 / 85; Pulse 100; Resp 17; Temp 97.8; Pulse Ox 100% ; Weight 72.57 kg; Height 5 ll1 ft. 6 in. (167.64 cm); Pain 0/10; 16:39 Body Mass Index 25.82 (72.57 kg, 167.64 cm) ll1 ED Course: 16:36 Patient arrived in ED. as 16:41 Triage completed. ll1 16:42 Arm band placed on Patient placed in an internal wait recliner, in a wheelchair. ll1 16:46 Sushma Viera MD is Attending Physician. sp3 17:24 Aubrie Mccormick, RN is Primary Nurse. iw 17:37 No provider procedures requiring assistance completed. iw 18:53 Patient has correct armband on for positive identification. iw 18:53 Patient did not have IV access during this emergency room visit. iw Administered Medications: No medications were administered Medication: 17:37 VIS not applicable for this client. iw Outcome: 18:31 Discharge ordered by . sp3 18:53 Discharged to home ambulatory, with family. iw 18:53 Condition: good 18:53 Discharge instructions given to patient, Instructed on discharge instructions, follow up and referral plans. Demonstrated understanding of instructions, follow-up care. 18:53 Patient left the ED. iw Signatures: Renu Atkinson as Aubrie Mccormick, DRISS RN iw Denisse Marin RN RN ll1 Sushma Viera MD MD sp3
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
[2022-07-05 19:00] VITALS: BP 132/85; TEMP 97.8; O2SAT 100
== END 2022-07-05 18:53 | disposition home or self-care (01) ==
LOC: ER 16:34
DX: T40.2X1A Poisoning by other opioids, accidental (unintentional), initial encounter (principal); R11.2 Nausea with vomiting, unspecified; I10 Essential (primary) hypertension; F17.210 Nicotine dependence, cigarettes, uncomplicated; Z88.0 Allergy status to penicillin; Z88.5 Allergy status to narcotic agent
CPT/HCPCS: 36415; 80076; 80329; 99281

== ENCOUNTER 2022-07-14 13:15 | Emergency (ER) | payer OTHER ==
--- OUTSIDE RECORDS SUMMARY | 2022-07-14 13:26 | XMS REPORT | Continuity of Care Document ---
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 Slow Univers (ZOFRAN 3-10 03-10 IV Push, ity of (PF)) 01:15: 00:10 ONCE, 1 [place] injection 4 00 :00 dose, [facility] Med ical mg 09/01/20 at Branch 1915, RAJANI hydrOXYzine 2020-0 Yes [id number] 25mg Take 1 Univers 25 mg 3-09 tablet by ity of tablet 00:00: mouth [place] 00 every 6 Medical (six) Branch hours as needed for Anxiety. hydrOXYzine 2020-0 Yes [id number] 25mg Take 1 [facility] 25 mg 3-09 tablet by ity of tablet 00:00: mouth [place] 00 every 6 Medical (six) Branch hours as needed for Anxiety. hydrOXYzine 2020-0 Yes [id number] 25mg Take 1 [facility] 25 mg 3-09 tablet by ity of tablet 00:00: mouth [place] 00 every 6 Medical (six) Branch hours as needed for Anxiety. hydrOXYzine 2020-0 Yes [id number] 25mg Take 1 [facility] 25 mg 3-09 tablet by ity of tablet 00:00: mouth [place] 00 every 6 Medical (six) Branch hours as needed for Anxiety. hydrOXYzine 2020-0 Yes [id number] 25mg Take 1 [facility] 25 mg 3-09 tablet by ity of tablet 00:00: mouth [place] 00 every 6 Medical (six) Branch hours as needed for Anxiety. hydrOXYzine 2020-0 Yes [id number] 25mg Take 1 [facility] 25 mg 3-09 tablet by ity of tablet 00:00: mouth [place] 00 every 6 Medical (six) Branch hours as needed for Anxiety. hydrOXYzine 2020-0 Yes [id number] 25mg Take 1 [facility] 25 mg 3-09 tablet by ity of tablet 00:00: mouth [place] 00 every 6 Medical (six) Branch hours as needed for Anxiety. hydrOXYzine 2020-0 2021- No [id number] 25mg Take 1 [facility] 25 mg 3-09 05-30 tablet by ity of tablet 00:00: 00:00 mouth [place] 00 :00 every 6 Medical (six) Branch hours as needed for Anxiety. hydroCHLORO 2021-0 2021- No [id number] 25mg Take 1 [facility] thiazide 25 3-09 04-09 tablet by it y of mg tablet 00:00: 04:59 mouth [place] 00 :00 every Medical morning Branch and evening for 30 days. hydroCHLORO 2021-0 2021- No [id number] 25mg Take 1 [facility] thiazide 25 3-09 04-09 tablet by it y of mg tablet 00:00: 04:59 mouth [place] 00 :00 every Medical morning Branch and evening for 30 days. hydroCHLORO 2020- No [id number] 25mg Take 1 [facility] thiazide 25 3-02 27-09 tablet by it y of mg tablet 00:00: 04:59 mouth [place] 00 :00 every Medical morning Branch and evening for 30 days. hydrOXYzine 2020- No [id number] 25mg Take 1 [facility] 25 mg 3- 03-09 tablet by ity of tablet 00:00: 00:00 mouth [place] 00 :00 every 6 Medical (six) Branch hours as needed for Anxiety. gabapentin 2019-06 Yes 300mg Take 300 Un sushant 300 mg 0-21 mg by ity of capsule 02:02: mouth 2 [place] [address] (two) Medical times Branch daily. levothyroxi 2019-06 Yes 100ug Take 100 U nivers ne 100 mcg 0-21 mcg by ity of tablet 02:02: mouth [place] [address] daily. Medical Branch meloxicam 2019-06 Yes 7.5mg Take 7.5 Uni vers 7.5 mg 0-21 mg by ity of tablet 02:02: mouth [place] [address] daily. Medical Branch metoprolol 2019-06 Yes 25mg Take 25 mg U nivers tartrate 25 0-21 by mouth ity of mg tablet 02:02: daily. [place] [address] Medical Branch omeprazole 2019-06 Yes 20mg Take 20 mg U nivers 20 mg 0-21 by mouth ity of capsule 02:02: daily. [place] [address] Medical Branch pravastatin 2019-06 Yes 20mg Take 20 mg Univers 20 mg 0-21 by mouth ity of tablet 02:02: at [place] [address] bedtime. Medical Branch triamcinolo 2019-06 Yes .1% Apply 0.1 U nivers ne 0-21 % to ity of acetonide/l 02:02: area(s) 2 [place] (two) Medical (ARISTOCORT times Branch A TOPICAL) daily. gabapentin 2019-06 Yes 300mg Take 300 Un sushant 300 mg 0-21 mg by ity of capsule 02:02: mouth 2 [place] [address] (two) Medical times Branch daily. levothyroxi 2019-06 Yes 100ug Take 100 U nivers ne 100 mcg 0-21 mcg by ity of tablet 02:02: mouth [place] [address] daily. Medical Branch meloxicam 2019-06 Yes 7.5mg Take 7.5 Uni vers 7.5 mg 0-21 mg by ity of tablet 02:02: mouth [place] [address] daily. Medical Branch metoprolol 2019-06 Yes 25mg Take 25 mg U nivers tartrate 25 0-21 by mouth ity of mg tablet 02:02: daily. [place] [address] Medical Branch omeprazole 2019-06 Yes 20mg Take 20 mg U nivers 20 mg 0-21 by mouth ity of capsule 02:02: daily. [place] [address] Medical Branch pravastatin 2019-06 Yes 20mg Take 20 mg Univers 20 mg 0-21 by mouth ity of tablet 02:02: at [place] [address] bedtime. Medical Branch triamcinolo 2019-06 Yes .1% Apply 0.1 U nivers ne 0-21 % to ity of acetonide/l 02:02: area(s) 2 [place] (two) Medical (ARISTOCORT times Branch A TOPICAL) daily. gabapentin 2019-06 Yes 300mg Take 300 Un sushant 300 mg 0-21 mg by ity of capsule 02:02: mouth 2 [place] [address] (two) Medical times Branch daily. levothyroxi 2019-06 Yes 100ug Take 100 U nivers ne 100 mcg 0-21 mcg by ity of tablet 02:02: mouth [place] [address] daily. Medical Branch meloxicam 2019-06 Yes 7.5mg Take 7.5 Uni vers 7.5 mg 0-21 mg by ity of tablet 02:02: mouth [place] [address] daily. Medical Branch metoprolol 2019-06 Yes 25mg Take 25 mg U nivers tartrate 25 0-21 by mouth ity of mg tablet 02:02: daily. [place] [address] Medical Branch omeprazole 2019-06 Yes 20mg Take 20 mg U nivers 20 mg 0-21 by mouth ity of capsule 02:02: daily. [place] [address] Medical Branch pravastatin 2019-06 Yes 20mg Take 20 mg Univers 20 mg 0-21 by mouth ity of tablet 02:02: at [place] [address] bedtime. Medical Branch triamcinolo 2019-06 Yes .1% Apply 0.1 U nivers ne 0-21 % to ity of acetonide/l 02:02: area(s) 2 [place] [address] (two) Medical (ARISTOCORT times Branch A TOPICAL) daily. gabapentin 2019-1 Yes 300mg Take 300 Un sushant 300 mg 0-21 mg by ity of capsule 02:02: mouth 2 [place] [address] (two) Medical times Branch daily. levothyroxi 2019-06 Yes 100ug Take 100 U nivers ne 100 mcg 0-21 mcg by ity of tablet 02:02: mouth [place] [address] daily. Medical Branch meloxicam 2019-06 Yes 7.5mg Take 7.5 Uni vers 7.5 mg 0-21 mg by ity of tablet 02:02: mouth [place] [address] daily. Medical Branch metoprolol 2019-06 Yes 25mg Take 25 mg U nivers tartrate 25 0-21 by mouth ity of mg tablet 02:02: daily. [place] [address] Medical Branch omeprazole 2019-06 Yes 20mg Take 20 mg U nivers 20 mg 0-21 by mouth ity of capsule 02:02: daily. [place] [address] Medical Branch pravastatin 2019-06 Yes 20mg Take 20 mg Univers 20 mg 0-21 by mouth ity of tablet 02:02: at [place] [address] bedtime. Medical Branch triamcinolo 2019-06 Yes .1% Apply 0.1 U nivers ne 0-21 % to ity of acetonide/l 02:02: area(s) 2 [place] [facility] Medical (ARISTOCORT times Branch A TOPICAL) daily. gabapentin 2019-06 Yes 300mg Take 300 Un [place] 300 mg 0-21 mg by ity of capsule 02:02: mouth 2 [place] [address] (two) Medical times Branch daily. levothyroxi 2019-06 Yes 100ug Take 100 U nivers ne 100 mcg 0-21 mcg by ity of tablet 02:02: mouth [place] [address] daily. Medical Branch meloxicam 2019-06 Yes 7.5mg Take 7.5 Uni vers 7.5 mg 0-21 mg by ity of tablet 02:02: mouth [place] [address] daily. Medical Branch metoprolol 2019-06 Yes 25mg Take 25 mg U nivers tartrate 25 0-21 by mouth ity of mg tablet 02:02: daily. [place] [address] Medical Branch omeprazole 2019-06 Yes 20mg Take 20 mg U nivers 20 mg 0-21 by mouth ity of capsule 02:02: daily. [address] Branch pravastatin 2019-06 Yes 20mg Take 20 mg Univers 20 mg 0-21 by mouth ity of tablet 02:02: at [place] [address] bedtime. Medical Branch triamcinolo 2019- Yes .1% Apply 0.1 U nivers ne 0-21 % to ity of acetonide/l 02:02: area(s) 2 [place] (two) Medical (ARISTOCORT times Branch A TOPICAL) daily. gabapentin 2019-06 Yes 300mg Take 300 Un sushant 300 mg 0-21 mg by ity of capsule 02:02: mouth 2 [place] [address] (two) Medical times Branch daily. levothyroxi 2019- Yes 100ug Take 100 U nivers ne 100 mcg 0-21 mcg by ity of tablet 02:02: mouth [place] [address] daily. Medical Branch meloxicam 2019-06 Yes 7.5mg Take 7.5 Uni vers 7.5 mg 0-21 mg by ity of tablet 02:02: mouth [place] [address] daily. Medical Branch metoprolol 2019-06 Yes 25mg Take 25 mg U nivers tartrate 25 0-21 by mouth ity of mg tablet 02:02: daily. [place] [address] Medical Branch omeprazole 2019-06 Yes 20mg Take 20 mg U nivers 20 mg 0-21 by mouth ity of capsule 02:02: daily. [place] [address] Medical Branch pravastatin 2019-06 Yes 20mg Take 20 mg Univers 20 mg 0-21 by mouth ity of tablet 02:02: at [place] [address] bedtime. Medical Branch triamcinolo 2019-06 Yes .1% Apply 0.1 U nivers ne 0-21 % to ity of acetonide/l 02:02: area(s) 2 [place]. [place] (two) Medical (ARISTOCORT times Branch A TOPICAL) daily. gabapentin 2019-06 Yes 300mg Take 300 Un sushant 300 mg 0-21 mg by ity of capsule 02:02: mouth 2 [place] [address] (two) Medical times Branch daily. levothyroxi 2019- Yes 100ug Take 100 U nivers ne 100 mcg 0-21 mcg by ity of tablet 02:02: mouth [place] [address] daily. Medical Branch meloxicam 2019- Yes 7.5mg Take 7.5 Uni vers 7.5 mg 0-21 mg by ity of tablet 02:02: mouth [place] [address] daily. Medical Branch metoprolol 2019- Yes 25mg Take 25 mg U nivers tartrate 25 0-21 by mouth ity of mg tablet 02:02: daily. [place] [address] Medical Branch omeprazole 2019-06 Yes 20mg Take 20 mg U nivers 20 mg 0-21 by mouth ity of capsule 02:02: daily. [place] [address] Medical Branch pravastatin 2019-06 Yes 20mg Take 20 mg Univers 20 mg 0-21 by mouth ity of tablet 02:02: at [place] [address] bedtime. Medical Branch triamcinolo 2019-06 Yes .1% Apply 0.1 U nivers ne 0-21 % to ity of acetonide/l 02:02: area(s) 2 [place]. [place] (two) Medical (ARISTOCORT times Branch A TOPICAL) daily. gabapentin 2019-06 Yes 300mg Take 300 Un sushant 300 mg 0-21 mg by ity of capsule 02:02: mouth 2 [place] [address] (two) Medical times Branch daily. levothyroxi 2019-06 Yes 100ug Take 100 U nivers ne 100 mcg 0-21 mcg by ity of tablet 02:02: mouth [place] [address] daily. Medical Branch meloxicam 2019-06 Yes 7.5mg Take 7.5 Uni vers 7.5 mg 0-21 mg by ity of tablet 02:02: mouth [place] [address] daily. Medical Branch metoprolol 2019-06 Yes 25mg Take 25 mg U nivers tartrate 25 0-21 by mouth ity of mg tablet 02:02: daily. [place] [address] Medical Branch omeprazole 2019-06 Yes 20mg Take 20 mg U nivers 20 mg 0-21 by mouth ity of capsule 02:02: daily. [place] [address] Medical Branch pravastatin 2019-06 Yes 20mg Take 20 mg Univers 20 mg 0-21 by mouth ity of tablet 02:02: at [place] [address] bedtime. Medical Branch triamcinolo 2019-06 Yes .1% Apply 0.1 U nivers ne 0-21 % to ity of acetonide/l 02:02: area(s) 2 [place]. [place] (two) Medical (ARISTOCORT times Branch A TOPICAL) daily. acetaminoph 2019-06- No [id number] 650mg Take 2 Univers en 325 mg 0-20 10-21 tablets by ity of tablet 00:00: 04:59 mouth [place] 00 :00 every 6 Medical (six) Branch hours as needed for Alternate with ibuprofen for pain scale 4-6. ibuprofen 2019-06- No [id number] 600mg Take 3 Univers 200 mg 0-20 10-21 tablets by ity of tablet 00:00: 04:59 mouth [place] 00 :00 every 6 Medical (six) Branch hours as needed (Alternate with acetaminop hen for pain). acetaminoph 2019-06- No [id number] 650mg Take 2 Univers en 325 mg 0-20 10-21 tablets by ity of tablet 00:00: 04:59 mouth [place] 00 :00 every 6 Medical (six) Branch hours as needed for Alternate with ibuprofen for pain scale 4-6. ibuprofen 2019-06- No [id number] 600mg Take 3 Univers 200 mg 0-20 10-21 tablets by ity of tablet 00:00: 04:59 mouth [place] 00 :00 every 6 Medical (six) Branch hours as needed (Alternate with acetaminop hen for pain). acetaminoph 2019-06- No [id number] 650mg Take 2 Univers en 325 mg 0-20 10-21 tablets by ity of tablet 00:00: 04:59 mouth [place] 00 :00 every 6 Medical (six) Branch hours as needed for Alternate with ibuprofen for pain scale 4-6. ibuprofen 2019-06- No [id number] 600mg Take 3 Univers 200 mg 0-20 10-21 tablets by ity of tablet 00:00: 04:59 mouth [place] 00 :00 every 6 Medical (six) Branch hours as needed (Alternate with acetaminop hen for pain). acetaminoph 2019-06- No [id number] 650mg Take 2 Univers en 325 mg 0-20 10-21 tablets by ity of tablet 00:00: 04:59 mouth [place] 00 :00 every 6 Medical (six) Branch hours as needed for Alternate with ibuprofen for pain scale 4-6. ibuprofen 2019-06- No [id number] 600mg Take 3 Univers 200 mg 0-20 10-21 tablets by ity of tablet 00:00: 04:59 mouth [place] 00 :00 every 6 Medical (six) Branch hours as needed (Alternate with acetaminop hen for pain). acetaminoph 2019-06- No [id number] 650mg Take 2 Univers en 325 mg 0-20 10-21 tablets by ity of tablet 00:00: 04:59 mouth [place] 00 :00 every 6 Medical (six) Branch hours as needed for Alternate with ibuprofen for pain scale 4-6. ibuprofen 2019-06 No [id number] 600mg Take 3 [facility] 200 mg 0-20 10-21 tablets by ity of tablet 00:00: 04:59 mouth [place] 00 :00 every 6 Medical (six) Branch hours as needed (Alternate with acetaminop hen for pain). acetaminoph 2019-06 No [id number] 650mg Take 2 Univers en 325 mg 0-20 10-21 tablets by ity of tablet 00:00: 04:59 mouth [place] 00 :00 every 6 Medical (six) Branch hours as needed for Alternate with ibuprofen for pain scale 4-6. ibuprofen 2019-06 No [id number] 600mg Take 3 Univers 200 mg 0-20 10-21 tablets by ity of tablet 00:00: 04:59 mouth [place] 00 :00 every 6 Medical (six) Branch hours as needed (Alternate with acetaminop hen for pain). acetaminoph 2019-06 No [id number] 650mg Take 2 Univers en 325 mg 0-20 10-21 tablets by ity of tablet 00:00: 04:59 mouth [place] 00 :00 every 6 Medical (six) Branch hours as needed for Alternate with ibuprofen for pain scale 4-6. ibuprofen 2019-06 No [id number] 600mg Take 3 Univers 200 mg 0-20 10-21 tablets by ity of tablet 00:00: 04:59 mouth [place] 00 :00 every 6 Medical (six) Branch hours as needed (Alternate with acetaminop hen for pain). acetaminoph 2019-06- No [id number] 650mg Take 2 Univers en 325 mg 0-20 10-21 tablets by ity of tablet 00:00: 04:59 mouth [place] 00 :00 every 6 Medical (six) Branch hours as needed for Alternate with ibuprofen for pain scale 4-6. ibuprofen 2019-06 No [id number] 600mg Take 3 Univers 200 mg 0-20 10-21 tablets by ity of tablet 00:00: 04:59 mouth [place] 00 :00 every 6 Medical (six) Branch hours as needed (Alternate with acetaminop hen for pain). acetaminoph 2019-06- No [id number] 650mg Take 2 Univers en 325 mg 0-20 10-21 tablets by ity of tablet 00:00: 04:59 mouth [place] 00 :00 every 6 Medical (six) Branch hours as needed for Alternate with ibuprofen for pain scale 4-6. ibuprofen 2019-06- No [id number] 600mg Take 3 Univers 200 mg 0-20 10-21 tablets by ity of tablet 00:00: 04:59 mouth [place] 00 :00 every 6 Medical (six) Branch hours as needed (Alternate with acetaminop hen for pain). acetaminoph 2019-06- No [id number] 650mg Take 2 Univers en 325 mg 0-20 10-21 tablets by ity of tablet 00:00: 04:59 mouth [place] 00 :00 every 6 Medical (six) Branch hours as needed for Alternate with ibuprofen for pain scale 4-6. ibuprofen 2019-06- No [id number] 600mg Take 3 Univers 200 mg 0-20 10-21 tablets by ity of tablet 00:00: 04:59 mouth [place] 00 :00 every 6 Medical (six) Branch hours as needed (Alternate with acetaminop hen for pain). acetaminoph 2019-06- No [id number] 650mg Take 2 Univers en 325 mg 0-20 10-21 tablets by ity of tablet 00:00: 04:59 mouth [place] 00 :00 every 6 Medical (six) Branch hours as needed for Alternate with ibuprofen for pain scale 4-6. ibuprofen 2019-06- No [id number] 600mg Take 3 [facility] 200 mg 0-20 10-21 tablets by ity of tablet 00:00: 04:59 mouth [place] 00 :00 every 6 Medical (six) Branch hours as needed (Alternate with acetaminop hen for pain). ibuprofen 2019-06- No [id number] 600mg Take 3 [facility] 200 mg 0-20 10-21 tablets by ity of tablet 00:00: 04:59 mouth [place] 00 :00 every 6 Medical (six) Branch hours as needed (Alternate with acetaminop hen for pain). ibuprofen 2019-06- No [id number] 600mg Take 3 [facility] 200 mg 0-20 10-21 tablets by ity of tablet 00:00: 04:59 mouth [place] 00 :00 every 6 Medical (six) Branch hours as needed (Alternate with acetaminop hen for pain). ibuprofen 2019-06- No [id number] 600mg Take 3 [facility] 200 mg 0-20 10-21 tablets by ity of tablet 00:00: 04:59 mouth [place] 00 :00 every 6 Medical (six) Branch hours as needed (Alternate with acetaminop hen for pain). acetaminoph 2019-06 No [id number] 650mg Take 2 Univers en 325 mg 0-20 05-30 tablets by ity of tablet 00:00: 00:00 mouth [place] 00 :00 every 6 Medical (six) Branch hours as needed for Alternate with ibuprofen for pain scale 4-6. ALPRAZolam 2019-06 Yes .25mg 0.25 mg, Un sushant (XANAX) 0-19 Oral, BID, ity of tablet 0.25 01:00: First dose [place] mg 00 on [facility] 04/12/20 Branch at 2000, Until Discontinu ed, Routine ziprasidone 2019-06- No 20mg 20 mg, Uni vers (GEODON) 0-18 10-25 Intramuscu ity of injection 18:20: 18:19 lar, [place] 20 mg 44 :44 Q6HPRN, Medical Starting Branch [place] 04/12/20 at 1320, Until [place] 04/19/20 at 1319, Routine, Agitation carBAMazepi 2019-06 Yes 200mg 200 mg, Un sushant ne 0-18 Oral, ity of (TEGRETOL) 03:00: Q12H, [place] tablet 200 00 First dose Med ical mg on [facility] Branch 04/11/20 at 2200, Until Discontinu ed, Routine methocarbam 2019-06 Yes 500mg 500 mg, Un sushant oL 0-18 Oral, QID, ity of (ROBAXIN) 01:00: First dose [place] tablet 500 00 on [facility] Medical mg 04/11/20 Branch at 2000, Until Discontinu ed, Routine metoprolol 2019-06 Yes 25mg 25 mg, Unive rs tartrate 0-18 Oral, BID, ity o f (LOPRESSOR) 01:00: First dose [place] tablet 25 00 on Sat Medical mg 04/11/20 Branch at 2000, Until Discontinu ed, Routine HYDROcodone 2019-06 2020- No 1{tbl} 1 tablet, Univers -acetaminop 0-17 -17 Oral, ity of hen (NORCO 23:22: 23:30 ONCE, 1 [place] 5) 5-325 mg 00 :00 dose, Sat Med ical tablet 1 04/11/20 Branch tablet at 1830, Routine omeprazole 2019-06 Yes 20mg 20 mg, Unive rs (PRILOSEC) 0-17 Oral, ity of capsule 20 17:15: DAILY, [place] mg 00 First dose Medical on [facility] Branch 04/11/20 at 1215, Until Discontinu ed, Routine levothyroxi 2019-06 Yes 100ug 100 mcg, U nivers ne 0-17 Oral, ity of (SYNTHROID) 17:15: QAM-0600, [place] tablet 100 00 First dose Med ical mcg on [facility] Branch 04/11/20 at 1215, Until Discontinu [...] 0-17 Oral, ity of (TYLENOL) 17:04: Q6HPRN, [place] tablet 650 27 Starting Medic al mg Sat Branch 04/11/20 at 1204, Until Discontinu ed, Routine, Pain (scale 1-3) docusate 2019-06 Yes 100mg 100 mg, Unive rs (COLACE) 0-17 Oral, ity of capsule 100 14:00: DAILY, [place] mg 00 First dose Medical on [facility] Branch 04/11/20 at 0900, Until Discontinu [...] dose, Fri Branch 04/10/20 at 2245, Routine
[employer] member approving Restricted medication : PEDRITO ROSADO clonazePAM 2019-06 Yes [id number] 1mg Take 1 U nivers (KLONOPIN) 0-17 tablet by ity of 1 mg tablet 00:00: mouth 3 [place] 00 (three) Medical times Branch daily as needed (anxiety). clonazePAM 2019-06 Yes [id number] 1mg Take 1 U nivers (KLONOPIN) 0-17 tablet by ity of 1 mg tablet 00:00: mouth 3 [place] 00 (three) Medical times Branch daily as needed (anxiety). clonazePAM 2019-06 Yes [id number] 1mg Take 1 U nivers (KLONOPIN) 0-17 tablet by ity of 1 mg tablet 00:00: mouth 3 [place] 00 (three) Medical times Branch daily as needed (anxiety). clonazePAM 2019- Yes [id number] 1mg Take 1 U nivers (KLONOPIN) 0-17 tablet by ity of 1 mg tablet 00:00: mouth 3 [place] 00 (three) Medical times Branch daily as needed (anxiety). clonazePAM 2019- Yes [id number] 1mg Take 1 U nivers (KLONOPIN) 0-17 tablet by ity of 1 mg tablet 00:00: mouth 3 [place] 00 (three) Medical times Branch daily as needed (anxiety). clonazePAM 2019- Yes [id number] 1mg Take 1 U nivers (KLONOPIN) 0-17 tablet by ity of 1 mg tablet 00:00: mouth 3 [place] 00 (three) Medical times Branch daily as needed (anxiety). clonazePAM 2019-06 Yes [id number] 1mg Take 1 U nivers (KLONOPIN) 0-17 tablet by ity of 1 mg tablet 00:00: mouth 3 [place] 00 (three) Medical times Branch daily as needed (anxiety). clonazePAM 2019-06 Yes [id number] 1mg Take 1 U nivers (KLONOPIN) 0-17 tablet by ity of 1 mg tablet 00:00: mouth 3 [place] 00 (three) Medical times Branch daily as needed (anxiety). clonazePAM 2019-06 Yes [id number] 1mg Take 1 U nivers (KLONOPIN) 0-17 tablet by ity of 1 mg tablet 00:00: mouth 3 [place] 00 (three) Medical times Branch daily as needed (anxiety). ibuprofen 2019- No 800mg 800 mg, Uni vers (IBU) 07-13 Oral, ity of tablet 800 04:15: 03:07 ONCE, 1 [place] mg 00 :00 dose, Fri Medical 07/12/19 at Branch 2215, RAJANI HYDROcodone 2020- No 1{tbl} 1 tablet, Univers -acetaminop 07-13 Oral, ity of hen (NORCO 04:15: 03:07 ONCE, 1 [place] 5) 5-325 mg 00 :00 dose, Fri Med ical tablet 1 07/12/19 at [facility] tablet 2215, RAJANI ondansetron 2019- No 4mg [...] at 999 Uni vers (NS) bolus 07-12 01-18 mL/hr, ity of infusion 21:45: 03:05 1,000 mL, [place] 1,000 mL 00 :00 IV Medical Infusion, Branch ONCE, 1 dose, 07/12/19 at 1545, RAJANI HYDROcodone 2019-0 Yes [id number] 1{tbl} Take 1 Univers -acetaminop 1-17 tablet by ity of hen 5-325 00:00: mouth [place] mg tablet 00 every 6 Medical (six) Branch hours as needed for Pain (scale 1-3). HYDROcodone 2019-0 Yes [id number] 1{tbl} Take 1 Univers -acetaminop 1-17 tablet by ity of hen 5-325 00:00: mouth [place] mg tablet 00 every 6 Medical (six) Branch hours as needed for Pain (scale 1-3). HYDROcodone 2019-0 Yes [id number] 1{tbl} Take 1 Univers -acetaminop 1-17 tablet by ity of hen 5-325 00:00: mouth [place] mg tablet 00 every 6 Medical (six) Branch hours as needed for Pain (scale 1-3). HYDROcodone 2019-0 Yes [id number] 1{tbl} Take 1 Univers -acetaminop 1-17 tablet by ity of hen 5-325 00:00: mouth [place] mg tablet 00 every 6 Medical (six) Branch hours as needed for Pain (scale 1-3). HYDROcodone 2019-0 Yes [id number] 1{tbl} Take 1 Univers -acetaminop 1-17 tablet by ity of hen 5-325 00:00: mouth [place] mg tablet 00 every 6 Medical (six) Branch hours as needed for Pain (scale 1-3). HYDROcodone 2020-0 Yes [id number] 1{tbl} Take 1 Univers -acetaminop 1-17 tablet by ity of hen 5-325 00:00: mouth [place] mg tablet 00 every 6 Medical (six) Branch hours as needed for Pain (scale 1-3). HYDROcodone 2019-0 Yes [id number] 1{tbl} Take 1 Univers -acetaminop 1-17 tablet by ity of hen 5-325 00:00: mouth [place] mg tablet 00 every 6 Medical (six) Branch hours as needed for Pain (scale 1-3). HYDROcodone Yes [id number] 1{tbl} Take 1 Univers -acetaminop 1-17 tablet by ity of hen 5-325 00:00: mouth [place] mg tablet 00 every 6 Medical (six) Branch hours as needed for Pain (scale 1-3). HYDROcodone Yes [id number] 1{tbl} Take 1 Univers -acetaminop 1-17 tablet by ity of hen 5-325 00:00: mouth [place] mg tablet 00 every 6 Medical (six) Branch hours as needed for Pain (scale 1-3). HYDROcodone Yes [id number] 1{tbl} Take 1 Univers -acetaminop 1-17 tablet by ity of hen 5-325 00:00: mouth [place] mg tablet 00 every 6 Medical (six) Branch hours as needed for Pain (scale 1-3). HYDROcodone Yes [id number] 1{tbl} Take 1 Univers -acetaminop 1-17 tablet by ity of hen 5-325 00:00: mouth [place] mg tablet 00 every 6 Medical (six) Branch hours as needed for Pain (scale 1-3). HYDROcodone Yes [id number] 1{tbl} Take 1 Univers -acetaminop 1-17 tablet by ity of hen 5-325 00:00: mouth [place] mg tablet 00 every 6 Medical (six) Branch hours as needed for Pain (scale 1-3). HYDROcodone Yes [id number] 1{tbl} Take 1 Univers -acetaminop 1-17 tablet by ity of hen 5-325 00:00: mouth [place] mg tablet 00 every 6 Medical (six) Branch hours as needed for Pain (scale 1-3). levothyroxi Yes 100ug Take 100 U nivers ne 100 mcg 7-13 mcg by ity of tablet 06:37: mouth [place] 32 daily. Medical Branch meloxicam Yes 7.5mg Take 7.5 Uni vers 7.5 mg 7-13 mg by ity of tablet 06:37: mouth [place] 32 daily. Medical Branch metoprolol Yes 25mg Take 25 mg U nivers tartrate 25 7-13 by mouth ity of mg tablet 06:37: daily. [place] [address] Medical Branch omeprazole Yes 20mg Take 20 mg U nivers 20 mg 7-13 by mouth ity of capsule 06:37: daily. [place] [address] Medical Branch pravastatin Yes 20mg Take 20 mg Univers 20 mg 7-13 by mouth ity of tablet 06:37: at [place] [address] bedtime. Medical Branch triamcinolo Yes .1% Apply 0.1 U nivers ne 7-13 % to ity of acetonide/l 06:37: area(s[place] 2 [place] (two) Medical (ARISTOCORT times Branch A TOPICAL) daily. levothyroxi 0 Yes 100ug Take 100 U nivers ne 100 mcg 7-13 mcg by ity of tablet 06:37: mouth [place] [address] daily. Medical Branch meloxicam Yes 7.5mg Take 7.5 Uni vers 7.5 mg 7-13 mg by ity of tablet 06:37: mouth [place] [address] daily. Medical Branch metoprolol Yes 25mg Take 25 mg U nivers tartrate 25 7-13 by mouth ity of mg tablet 06:37: daily. [place] [address] Medical Branch omeprazole Yes 20mg Take 20 mg U nivers 20 mg 7-13 by mouth ity of capsule 06:37: daily. [place] [address] Medical Branch pravastatin Yes 20mg Take 20 mg Univers 20 mg 7-13 by mouth ity of tablet 06:37: at [place] [address] bedtime. Medical Branch triamcinolo Yes .1% Apply [...] mouth ity of mg tablet 06:37: daily. [place] [address] Medical Branch omeprazole 0 Yes 20mg Take 20 mg U nivers 20 mg 7-13 by mouth ity of capsule 06:37: daily. [place] [address] Medical Branch pravastatin Yes 20mg Take 20 mg Univers 20 mg 7-13 by mouth ity of tablet 06:37: at [place] [address] bedtime. Medical Branch triamcinolo Yes .1% Apply 0.1 U nivers ne 7-13 % to ity of acetonide/l 06:37: area(s) 2 [place] (two) Medical (ARISTOCORT times Branch A TOPICAL) daily. levothyroxi Yes 100ug Take 100 U nivers ne 100 mcg 7-13 mcg by ity of tablet 06:37: mouth [place] [address] daily. Medical Branch meloxicam Yes 7.5mg Take 7.5 Uni vers 7.5 mg 7-13 mg by ity of tablet 06:37: mouth [place] [address] daily. Medical Branch metoprolol Yes 25mg Take 25 mg U nivers tartrate 25 7-13 by mouth ity of mg tablet 06:37: daily. [place] [address] Medical Branch omeprazole Yes 20mg Take 20 mg U nivers 20 mg 7-13 by mouth ity of capsule 06:37: daily. [place] [address] Medical Branch pravastatin Yes 20mg Take 20 mg Univers 20 mg 7-13 by mouth ity of tablet 06:37: at [place] [address] bedtime. Medical Branch triamcinolo Yes .1% Apply [...] mg by ity of tablet 06:37: mouth [place] [address] daily. Medical Branch metoprolol 2019-0 Yes 25mg Take 25 mg U nivers tartrate 25 7-13 by mouth ity of mg tablet 06:37: daily. [place] [address] Medical Branch omeprazole 2019-0 Yes 20mg Take 20 mg U nivers 20 mg 7-13 by mouth ity of capsule 06:37: daily. [place] [address] Medical Branch pravastatin 2019-0 Yes 20mg Take 20 mg Univers 20 mg 7-13 by mouth ity of tablet 06:37: at [place] [address] bedtime. Medical Branch triamcinolo Yes .1% Apply 0.1 U nivers ne 7-13 % to ity of acetonide/l 06:37: area(s) 2 [place]. 32 (two) Medical (ARISTOCORT times Branch A TOPICAL) daily. levothyroxi 2019-0 Yes 100ug Take 100 U nivers ne 100 mcg 7-13 mcg by ity of tablet 06:37: mouth [place] [address] daily. Medical Branch meloxicam 2019-0 Yes 7.5mg Take 7.5 Uni vers 7.5 mg 7-13 mg by ity of tablet 06:37: mouth [place] [address] daily. Medical Branch metoprolol 0 Yes 25mg Take 25 mg U nivers tartrate 25 7-13 by mouth ity of mg tablet 06:37: daily. [place] [address] Medical Branch omeprazole 2019-0 Yes 20mg Take 20 mg U nivers 20 mg 7-13 by mouth ity of capsule 06:37: daily. [place] [address] Medical Branch pravastatin 2019-0 Yes 20mg Take 20 mg Univers 20 mg 7-13 by mouth ity of tablet 06:37: at [place] [address] bedtime. Medical Branch triamcinolo Yes .1% Apply [...] by ity of capsule 06:27: mouth 2 [place] 56 (two) Medical times Branch daily. gabapentin 2019-0 Yes 300mg Take 300 Un sushant 300 mg 7-13 mg by ity of capsule 06:27: mouth 2 [place] 56 (two) Medical times Branch daily. gabapentin 2019-0 Yes 300mg Take 300 Un sushant 300 mg 7-13 mg by ity of capsule 06:27: mouth 2 [place] 56 (two) Medical times Branch daily. gabapentin 2019-0 Yes 300mg Take 300 Un sushant 300 mg 7-13 mg by ity of capsule 06:27: mouth 2 [place] 56 (two) Medical times Branch daily. gabapentin 2019-0 Yes 300mg Take 300 Un sushant 300 mg 7-13 mg by ity of capsule 06:27: mouth 2 [place] 56 (two) Medical times Branch daily. Vital Signs Vital Name Observation Time Observation Value Comments Source Heart rate 2021-09-22 03:30:00 87 /min [facility] Respiratory rate 2021-09-22 03:30:00 20 /min [facility] Oxygen saturation in 2021-09-22 03:30:00 100 /min [facility] Arterial blood by [facility] Pulse oximetry Branch Systolic blood 2021-09-22 03:00:00 148 mm[facility]Hg[facility] 2021-09-22 03:00:00 86 mm[Hg] Unive [facility] Body temperature 2021-09-22 01:12:00 36.67 Yamila [facility] Body height 2021-09-22 01:12:00 167.6 cm [facility] Body weight 2021-09-22 01:12:00 72.576 kg [facility] BMI 2021-09-22 01:12:00 25.82 kg/m2 [facility] Systolic blood 2021-03-25 15:30:00 153 mm[Hg] Univer sity [facility] Diastolic blood 2021-03-25 15:30:00 96 mm[facility]Hg[facility] 2021-03-25 15:30:00 100 /min [facility] Respiratory rate 2021-03-25 15:30:00 20 /min [facility] [place] [facility] Oxygen saturation in 2021-03-25 15:30:00 97 /min [facility] of Arterial blood by [facility] Pulse oximetry Branch Body temperature 2021-03-25 08:55:00 36.39 Yamila [facility] [place] [facility] Body weight 2021-03-25 08:55:00 81.194 kg [facility] [place] [facility] BMI 2021-03-25 08:55:00 28.89 kg/m2 [facility] [place] [facility] Systolic blood 2020-11-23 17:24:00 104 mm[Hg] Univer sity of pressure [place] [facility] Diastolic blood 2020-11-23 17:24:00 68 mm[Hg] Unive rsity of pressure [place] [facility] Heart rate 2020-11-23 17:24:00 91 /min [facility] [place] [facility] Respiratory rate 2020-11-23 17:24:00 18 /min [facility] [place] [facility] Oxygen saturation in 2020-11-23 17:24:00 97 /min [facility] of Arterial blood by [facility] Pulse oximetry Branch Body temperature 2020-11-23 12:24:00 36.94 Yamila [facility] [place] [facility] Body weight 2020-11-23 09:53:00 81.194 kg [facility] [place] [facility] BMI 2020-11-23 09:53:00 28.89 kg/m2 [facility] [place] [facility] Body height 2020-11-22 21:41:00 167.6 cm [facility] [place] [facility] Systolic blood 2020-11-23 17:24:00 104 mm[Hg] Univer sity of pressure [place] [facility] Diastolic blood 2020-11-23 17:24:00 68 mm[Hg] Unive rsity of pressure [place] [facility] Heart rate 2020-11-23 17:24:00 91 /min [facility] [place] [facility] Respiratory rate 2020-11-23 17:24:00 18 /min [facility] [place] [facility] Oxygen saturation in 2020-11-23 17:24:00 97 /min [facility] of Arterial blood by [facility] Pulse oximetry Branch Body temperature 2020-11-23 12:24:00 36.94 Yamila [facility] [place] [facility] Body weight 2020-11-23 09:53:00 81.194 kg [facility] [place] [facility] BMI 2020-11-23 09:53:00 28.89 kg/m2 [facility] [place] [facility] Body height 2020-11-22 21:41:00 167.6 cm [facility] [place] [facility] Systolic blood 2020-10-22 10:00:00 149 mm[Hg] Univer sity of pressure [place] [facility] Diastolic blood 2020-10-22 10:00:00 92 mm[Hg] Unive rsity of pressure [place] [facility] Heart rate 2020-10-22 10:00:00 89 /min [facility] [place] [facility] Body temperature 2020-10-22 10:00:00 36.78 Yamila [facility] [place] [facility] Respiratory rate 2020-10-22 10:00:00 16 /min [facility] [place] [facility] Oxygen saturation in 2020-10-22 10:00:00 97 /min [facility] of Arterial blood by [place] [facility] Pulse oximetry Branch Body weight 2020-10-22 07:03:00 72.576 kg [facility] [place] [facility] BMI 2020-10-22 07:03:00 25.82 kg/m2 [facility] [place] [facility] Systolic blood 2020-10-22 10:00:00 149 mm[Hg] Univer sity of pressure [place] [facility] Diastolic blood 2020-10-22 10:00:00 92 mm[Hg] Unive rsity of pressure [place] [facility] Heart rate 2020-10-22 10:00:00 89 /min [facility] [place] [facility] Body temperature 2020-10-22 10:00:00 36.78 Yamila [facility] [place] [facility] Respiratory rate 2020-10-22 10:00:00 16 /min [facility] [place] [facility] Oxygen saturation in 2020-10-22 10:00:00 97 /min [facility] of Arterial blood by [place] [facility] Pulse oximetry Branch Body weight 2020-10-22 07:03:00 72.576 kg [facility] [place] [facility] BMI 2020-10-22 07:03:00 25.82 kg/m2 [facility] [place] [facility] Systolic blood 2020-10-20 04:55:00 181 mm[Hg] Univer sity of pressure [place] [facility] Diastolic blood 2020-10-20 04:55:00 109 mm[Hg] Unive rsity of pressure [place] [facility] Heart rate 2020-10-20 04:55:00 126 /min [facility] [place] [facility] Body temperature 2020-10-20 04:55:00 36.72 Yamila [facility] [place] [facility] Respiratory rate 2020-10-20 04:55:00 17 /min [facility] [place] [facility] Body weight 2020-10-20 04:55:00 72.598 kg [facility] [place] [facility] BMI 2020-10-20 04:55:00 25.83 kg/m2 [facility] [place] [facility] Oxygen saturation in 2020-10-20 04:55:00 97 /min [facility] of Arterial blood by [place] [facility] Pulse oximetry Branch Systolic blood 2020-10-20 04:55:00 181 mm[Hg] Univer sity of pressure [place] [facility] Diastolic blood 2020-10-20 04:55:00 109 mm[Hg] Unive rsity of pressure [place] [facility] Heart rate 2020-10-20 04:55:00 126 /min [facility] [place] [facility] Body temperature 2020-10-20 04:55:00 36.72 Yamila [facility] [place] [facility] Respiratory rate 2020-10-20 04:55:00 17 /min [facility] [place] [facility] Body weight 2020-10-20 04:55:00 72.598 kg [facility] [place] [facility] BMI 2020-10-20 04:55:00 25.83 kg/m2 [facility] [place] [facility] Oxygen saturation in 2020-10-20 04:55:00 97 /min [facility] Arterial blood by [place] [facility] Pulse oximetry Branch Systolic blood 2020-10-15 20:07:00 124 mm[Hg] Univer sity of pressure [place] [facility] Diastolic blood 2020-10-15 20:07:00 72 mm[Hg] Unive rsity of pressure [place] [facility] Heart rate 2020-10-15 20:07:00 97 /min [facility] [place] [facility] Body temperature 2020-10-15 20:07:00 36.83 Yamila [facility] [place] [facility] Respiratory rate 2020-10-15 20:07:00 17 /min [facility] [place] [facility] Oxygen saturation in 2020-10-15 20:07:00 96 /min [facility] of Arterial blood by [place] [facility] Pulse oximetry Branch Body weight 2020-10-15 12:34:00 68.04 kg [facility] [place] [facility] BMI 2020-10-15 12:34:00 24.21 kg/m2 [facility] [place] [facility] Systolic blood 2020-10-15 20:07:00 124 mm[Hg] Univer sity of pressure [place] [facility] Diastolic blood 2020-10-15 20:07:00 72 mm[Hg] Unive rsity of pressure [place] [facility] Heart rate 2020-10-15 20:07:00 97 /min [facility] [place] [facility] Body temperature 2020-10-15 20:07:00 36.83 Yamila [facility] [place] [facility] Respiratory rate 2020-10-15 20:07:00 17 /min [facility] [place] [facility] Oxygen saturation in 2020-10-15 20:07:00 96 /min [facility] Arterial blood by [place] [facility] Pulse oximetry Branch Body weight 2020-10-15 12:34:00 68.04 kg [facility] [place] [facility] BMI 2020-10-15 12:34:00 24.21 kg/m2 [facility] [place] [facility] Systolic blood 2020-10-13 15:00:00 145 mm[Hg] Univer sity of pressure [place] [facility] Diastolic blood 2020-10-13 15:00:00 102 mm[Hg] Unive rsity of pressure [place] [facility] Heart rate 2020-10-13 15:00:00 115 /min [facility] [place] [facility] Respiratory rate 2020-10-13 15:00:00 22 /min [facility] [place] [facility] Oxygen saturation in 2020-10-13 15:00:00 100 /min [facility] Arterial blood by [place] [facility] Pulse oximetry Branch Body temperature 2020-10-13 09:40:00 37 Yamila [facility] [place] [facility] Body weight 2020-10-13 09:40:00 68.04 kg [facility] [place] [facility] BMI 2020-10-13 09:40:00 24.21 kg/m2 [facility] [place] [facility] Systolic blood 2020-10-13 15:00:00 145 mm[Hg] Univer sity of pressure [place] [facility] Diastolic blood 2020-10-13 15:00:00 102 mm[Hg] Unive rsity of pressure [place] [facility] Heart rate 2020-10-13 15:00:00 115 /min [facility] [place] [facility] Respiratory rate 2020-10-13 15:00:00 22 /min [facility] [place] [facility] Oxygen saturation in 2020-10-13 15:00:00 100 /min [facility] of Arterial blood by [facility] steve Pulse oximetry Branch Body temperature 2020-10-13 09:40:00 37 Yamila [facility] [place] [facility] Body weight 2020-10-13 09:40:00 68.04 kg [facility] [place] [facility] BMI 2020-10-13 09:40:00 24.21 kg/m2 [facility] [place] [facility] Systolic blood 2020-09-17 03:41:00 147 mm[Hg] Univer sity of pressure [place] [facility] Diastolic blood 2020-09-17 03:41:00 98 mm[Hg] Unive rsity of pressure [place] [facility] Heart rate 2020-09-17 03:41:00 92 /min [facility] [place] [facility] Respiratory rate 2020-09-17 03:41:00 22 /min [facility] [place] [facility] Oxygen saturation in 2020-09-17 03:41:00 100 /min [facility] Arterial blood by [facility] Pulse oximetry Branch Body temperature 2020-09-17 02:45:00 37.17 Yamila [facility] [place] [facility] Body height 2020-09-17 02:45:00 167.6 cm [facility] [place] [facility] Body weight 2020-09-17 02:45:00 65.772 kg [facility] [place] [facility] BMI 2020-09-17 02:45:00 23.40 kg/m2 [facility] [place] [facility] Systolic blood 2020-09-17 03:41:00 147 mm[Hg] Univer sity of pressure [place] [facility] Diastolic blood 2020-09-17 03:41:00 98 mm[Hg] Unive rsity of pressure [place] [facility] Heart rate 2020-09-17 03:41:00 92 /min [facility] [place] [facility] Respiratory rate 2020-09-17 03:41:00 22 /min [facility] [place] [facility] Oxygen saturation in 2020-09-17 03:41:00 100 /min [facility] Arterial blood by [place] [facility] Pulse oximetry Branch Body temperature 2020-09-17 02:45:00 37.17 Yamila [facility] [place] [facility] Body height 2020-09-17 02:45:00 167.6 cm [facility] [place] [facility] Body weight 2020-09-17 02:45:00 65.772 kg [facility] [place] [facility] BMI 2020-09-17 02:45:00 23.40 kg/m2 [facility] [place] [facility] Systolic blood 2020-09-06 11:02:00 146 mm[Hg] Univer sity of pressure [place] [facility] Diastolic blood 2020-09-06 11:02:00 93 mm[Hg] Unive rsity of pressure [place] [facility] Heart rate 2020-09-06 11:02:00 97 /min [facility] [place] [facility] Respiratory rate 2020-09-06 11:02:00 21 /min [facility] [place] [facility] Oxygen saturation in 2020-09-06 11:02:00 99 /min [facility] Arterial blood by [place] [facility] Pulse oximetry Branch Body temperature 2020-09-06 10:31:00 36.17 Yamila [facility] [place] [facility] Body height 2020-09-06 09:39:00 167.6 cm [facility] [place] [facility] Body weight 2020-09-06 09:39:00 68.04 kg [facility] [place] [facility] BMI 2020-09-06 09:39:00 24.21 kg/m2 [facility] [place] [facility] Systolic blood 2020-09-06 11:02:00 146 mm[Hg] Univer sity of pressure [place] [facility] Diastolic blood 2020-09-06 11:02:00 93 mm[Hg] Unive rsity of pressure [place] [facility] Heart rate 2020-09-06 11:02:00 97 /min [facility] [place] [facility] Respiratory rate 2020-09-06 11:02:00 21 /min [facility] [place] [facility] Oxygen saturation in 2020-09-06 11:02:00 99 /min [facility] Arterial blood by [place] [facility] Pulse oximetry Branch Body temperature 2020-09-06 10:31:00 36.17 Yamila [facility] [place] [facility] Body height 2020-09-06 09:39:00 167.6 cm [facility] [place] [facility] Body weight 2020-09-06 09:39:00 68.04 kg [facility] [place] [facility] BMI 2020-09-06 09:39:00 24.21 kg/m2 [facility] [place] [facility] Systolic blood 2020-09-02 03:00:00 171 mm[Hg] Univer sity of pressure [place] [facility] Diastolic blood 2020-09-02 03:00:00 102 mm[Hg] Unive rsity of pressure [place] [facility] Heart rate 2020-09-02 03:00:00 100 /min [facility] [place] [facility] Body temperature 2020-09-02 03:00:00 36 Yamila [facility] [place] [facility] Respiratory rate 2020-09-02 03:00:00 17 /min [facility] [place] [facility] Oxygen saturation in 2020-09-02 03:00:00 98 /min [facility] Arterial blood by [place] [employer] Pulse oximetry Branch Body weight 2020-09-01 23:02:00 65.772 kg [facility] [place] [facility] BMI 2020-09-01 23:02:00 23.40 kg/m2 [facility] [place] [facility] Systolic blood 2020-09-02 03:00:00 171 mm[Hg] Univer sity of pressure [place] [facility] Diastolic blood 2020-09-02 03:00:00 102 mm[Hg] Unive rsity of pressure [place] [facility] Heart rate 2020-09-02 03:00:00 100 /min [facility] [place] [facility] Body temperature 2020-09-02 03:00:00 36 Yamila [facility] [place] [facility] Respiratory rate 2020-09-02 03:00:00 17 /min [facility] [place] [facility] Oxygen saturation in 2020-09-02 03:00:00 98 /min [facility] Arterial blood by [employer] [facility] Pulse oximetry Branch Body weight 2020-09-01 23:02:00 65.772 kg [facility] [place] [facility] BMI 2020-09-01 23:02:00 23.40 kg/m2 [facility] [place] [facility] Systolic blood 2020-04-14 13:08:00 143 mm[Hg] Univer sity of pressure [place] [facility] Diastolic blood 2020-04-14 13:08:00 90 mm[Hg] Unive rsity of pressure [place] [facility] Heart rate 2020-04-14 13:08:00 84 /min [facility] [place] [facility] Body temperature 2020-04-14 13:08:00 36.28 Yamila [facility] [place] [facility] Respiratory rate 2020-04-14 13:08:00 16 /min [facility] [place] [facility] Oxygen saturation in 2020-04-14 13:08:00 99 /min [facility] Arterial blood by [facility] Pulse oximetry Branch Body weight 2020-04-11 11:56:00 63.504 kg [facility] [place] [facility] BMI 2020-04-11 11:56:00 22.60 kg/m2 [facility] [place] [facility] Body height 2020-04-11 11:55:00 167.6 cm [facility] [place] [facility] Systolic blood 2020-04-11 05:30:00 148 mm[Hg] Univer sity of pressure [place] [facility] Diastolic blood 2020-04-11 05:30:00 88 mm[Hg] Unive rsity of pressure [place] [facility] Heart rate 2020-04-11 05:30:00 89 /min [facility] [place] [facility] Respiratory rate 2020-04-11 05:30:00 26 /min [facility] [place] [facility] Oxygen saturation in 2020-04-11 05:30:00 100 /min [facility] Arterial blood by [facility] Pulse oximetry Branch Body temperature 2020-04-11 04:03:00 37.17 Yamila [facility] [place] [facility] Body weight 2020-04-11 04:03:00 63.504 kg [facility] [place] [facility] BMI 2020-04-11 04:03:00 22.60 kg/m2 [facility] [place] [facility] Systolic blood 2020-04-11 02:59:52 126 mm[Hg] Univer sity of pressure [place] [facility] Diastolic blood 2020-04-11 02:59:52 94 mm[Hg] Unive rsity of pressure [place] [facility] Heart rate 2020-04-11 02:59:52 104 /min [facility] [place] [facility] Body temperature 2020-04-11 02:59:52 36.56 Yamila [facility] [place] [facility] Respiratory rate 2020-04-11 02:59:52 19 /min [facility] [place] [facility] Oxygen saturation in 2020-04-11 02:59:52 98 /min [facility] Arterial blood by [place] [facility] Pulse oximetry Branch Body weight 2020-04-11 01:37:00 63.504 kg [facility] [place] [facility] BMI 2020-04-11 01:37:00 22.60 kg/m2 [facility] [place] [facility] Systolic blood 2020-04-10 04:53:11 150 mm[Hg] Univer sity of pressure [place] [facility] Diastolic blood 2020-04-10 04:53:11 101 mm[Hg] Unive rsity of pressure [place] [facility] Heart rate 2020-04-10 04:53:11 121 /min [facility] [place] [facility] Respiratory rate 2020-04-10 04:53:11 16 /min [facility] [place] [facility] Oxygen saturation in 2020-04-10 04:53:11 99 /min [facility] Arterial blood by [facility] Pulse oximetry Branch Body temperature 2020-04-10 04:00:00 36.44 Yamila [facility] [place] [facility] Body weight 2020-04-10 04:00:00 68.04 kg [facility] [place] [facility] BMI 2020-04-10 04:00:00 24.21 kg/m2 [facility] [place] [facility] Systolic blood 2020-02-25 18:30:00 164 mm[Hg] Univer sity of pressure [place] [facility] Diastolic blood 2020-02-25 18:30:00 112 mm[Hg] Unive rsity of pressure [place] [facility] Heart rate 2020-02-25 18:30:00 107 /min [facility] [place] [facility] Respiratory rate 2020-02-25 18:30:00 23 /min [facility] [place] [facility] Oxygen saturation in 2020-02-25 18:30:00 98 /min [facility] Arterial blood by [facility] Pulse oximetry Branch Body temperature 2020-02-25 18:20:00 36.89 Yamila [facility] [place] [facility] Body height 2020-02-25 18:20:00 167.6 cm [facility] [place] [facility] Body weight 2020-02-25 18:20:00 68.04 kg [facility] [place] [facility] BMI 2020-02-25 18:20:00 24.21 kg/m2 [facility] [place] [facility] Systolic blood 2019-07-13 03:12:00 125 mm[Hg] Univer sity of pressure [facility] Diastolic blood 2019-07-13 03:12:00 81 mm[Hg] Unive rsity of pressure [facility] Heart rate 2019-07-13 03:12:00 75 /min [facility] Body temperature 2019-07-13 03:12:00 36.72 Yamila [facility] Respiratory rate 2019-07-13 03:12:00 18 /min [facility] Oxygen saturation in 2019-07-13 03:12:00 99 /min [facility] Arterial blood by [facility] Pulse oximetry [place] Body weight 2019-07-12 21:01:00 72.576 kg [facility] BMI 2019-07-12 21:01:00 25.82 kg/m2 [facility] Procedures Procedure Date / Time Performing Clinician Source Performed XR CHEST 1 VW 2021-09-22 01:58:50 [place] [facility] MAGNESIUM 2021-09-22 01:43:00 [place] [facility] TROPONIN I 2021-09-22 01:43:00 [place] [facility] COMP. METABOLIC PANEL 2021-09-22 01:43:00 [place] Estrada [facility] ([id number]) [facility] POCT TEST 2021-09-22 01:43:00 [place] Estrada [facility] N-TERMINAL PRO-BNP 2021-09-22 01:43:00 [place] Estrada [facility] CBC WITH DIFF 2021-09-22 01:42:00 [place] Estr[facility] URINALYSIS 2021-09-22 01:42:00 [place] [facility] NOTICE OF PRIVACY 2021-09-22 01:07:45 Doctor Unassigned, No Univ [facility] PRACTICES Name [facility] CONSENT/REFUSAL FOR 2021-09-22 01:06:43 [facility]AT[facility] Name Medical Branch CT CHEST PULMONARY 2021-03-25 11:45:06 Arnold Coughlin [facility] ANGIOGRAM Medical Branch TROPONIN I 2021-03-25 11:31:00 Arnold Coughlin [facility] D-DIMER 2021-03-25 10:22:00 Arnold Coughlin [facility] LIPASE 2021-03-25 09:35:00 Arnold Coughlin [facility] TROPONIN I 2021-03-25 09:35:00 Arnold Coughlin [facility] COMP. METABOLIC PANEL 2021-03-25 09:35:00 Arnold Coughlin [facility] ([id number]) Medical Branch CBC WITH DIFF 2021-03-25 09:35:00 Arnold Coughlin [facility] HB ECG ROUTINE & RHYTHM 2021-03-25 08:52:04 Arnold Coughlin [facility] ACTIVATED PARTIAL 2020-11-23 10:36:00 [facility] MAGNESIUM 2020-11-23 05:05:00 [facility] BASIC METABOLIC PANEL 2020-11-23 05:05:00 Monique [facility] (NA, K, CL, CO2, Medical Branch GLUCOSE, BUN, CREATININE, CA) CBC WITH DIFF 2020-11-23 05:05:00 [facility] ACTIVATED PARTIAL 2020-11-23 05:05:00 [facility]GIO[facility] CHEST 2020-11-22 20:21:07 [facility] POCT TEST 2020-11-22 19:43:00 Rosmery Mai [facility] TROPONIN I 2020-11-22 19:38:00 [facility] FREE T4 2020-11-22 19:38:00 [facility] THYROID STIMULATING 2020-11-22 19:38:00 [facility]3] HORMONE [facility] LIPID PANEL 2020-11-22 19:38:00 [id number]TOTAL Medical Branch CHOLESTEROL, TRIGLYCERIDES, HDL) COVID-19 (ID NOW RAPID 2020-11-22 19:18:00 Carmen Lott [facility] TESTING) [facility] TROPONIN I 2020-11-22 14:45:00 [facility]i [facility] X[facility] CHEST 1 VW 2020-11-22 12:41:09 Miguelito [facility] URINE DRUG (IMMUNOASSAY) 2020-11-22 11:53:00 Miguelito Salter [facility] SCREEN URINALYSIS 2020-11-22 11:53:00 Miguelito [facility] CK (CREATINE KINASE) + 2020-11-22 11:52:00 Miguelito Salter [facility] Branch LIPASE 2020-11-22 11:52:00 Miguelito [facility] TROPONIN I 2020-11-22 11:52:00 Miguelito [facility] COMP. METABOLIC PANEL 2020-11-22 11:52:00 Miguelito Salter [facility] ([id number]) Medical Branch ETHANOL 2020-11-22 11:52:00 Miguelito [facility] SERUM DRUG (IMMUNOASSAY) 2020-11-22 11:52:00 Miguelito Salter [facility] SCREEN CBC WITH DIFF 2020-11-22 11:52:00 Miguelito [facility] GLYCOSYLATED HEMOGLOBIN 2020-11-22 11:52:00 [facility] (A1C) [facility] D-DIMER 2020-11-22 11:52:00 Miguelito [facility] POCT TEST 2020-10-22 10:12:00 Chaka Steinberg [facility] URINE DRUG (IMMUNOASSAY) 2020-10-22 10:10:00 Chaka Steinberg [facility] SCREEN URINALYSIS 2020-10-22 10:10:00 Chaka Steinberg [facility] TROPONIN I 2020-10-22 09:34:00 Chaka Steinberg [facility] CT ABDOMEN PELVIS W 2020-10-22 08:02:55 Chaka Steinberg [facility] CONTRAST Medical Branch XR CHEST 1 VW 2020-10-22 07:40:59 Chaka Steinberg [facility] COVID-19 (ID NOW RAPID 2020-10-22 07:38:00 Chaka Steinberg [facility] TESTING) Medical Branch LIPASE 2020-10-22 07:37:00 Chaka [facility] TROPONIN I 2020-10-22 07:37:00 Cece Steinbergian [facility] HEPATIC FUNCTION PANEL 2020-10-22 07:37:00 Chaka Steinberg [facility] ([id number]) (ALB,T.PRO,BILI Medical Branch T,BU/BC,ALT,AST,ALK PHOS) BASIC METABOLIC PANEL 2020-10-22 07:37:00 Chaka Steinberg [facility] (NA, K, CL, CO2, Medical Branch GLUCOSE, BUN, CREATININE, CA) ETHANOL 2020-10-22 07:37:00 Chaka [facility]berg [facility] CBC WITH DIFF 2020-10-22 07:37:00 Cece Steinbergian [facility] CREATINE KINASE 2020-10-15 14:58:00 Sergei [facility] LIPASE 2020-10-15 14:58:00 Sergei [facility] TEST, SERUM 2020-10-15 14:58:00 [facility] TROPONIN I 2020-10-15 14:58:00 Sergei [facility] HEPATIC FUNCTION PANEL 2020-10-15 14:58:00 Sergei, [facility] ([id number]) (ALB,T.PRO,BILI Medical Branch T,BU/BC,ALT,AST,ALK PHOS) BASIC METABOLIC PANEL 2020-10-15 14:58:00 Sergei [facility] (NA, K, CL, CO2, Medical Branch GLUCOSE, BUN, CREATININE, CA) N-TERMINAL PRO-BNP 2020-10-15 14:58:00 Sergei [facility] XR CHEST 2 VW 2020-10-15 13:47:20 Sergei [facility] CT HEAD WO CONTRAST 2020-10-15 13:37:33 Sergei [facility] CREATINE KINASE 2020-10-15 13:27:00 Sergei [facility] LIPASE 2020-10-15 13:27:00 Sergei [facility] TROPONIN I 2020-10-15 13:27:00 Sergei [facility] N-TERMINAL PRO-BNP 2020-10-15 13:27:00 Sergei [facility] POCT TEST 2020-10-13 11:13:00 Gage Torres [facility] COMP. METABOLIC PANEL 2020-10-13 11:06:00 Gage Torres [facility] ([id number]) [facility] EXTRA TUBE ORANGE 2020-10-13 11:06:00 Gage Torres [facility] EXTRA TUBE LT. GREEN 2020-10-13 11:06:00 Gage Torres [facility] URINE DRUG (IMMUNOASSAY) 2020-10-13 11:01:00 Gage Torres [facility] SCREEN URINALYSIS 2020-10-13 11:01:00 Gage Torres [facility] CBC WITH DIFF 2020-10-13 10:41:00 Gage Torres [facility] XR CHEST 1 VW 2020-10-13 10:40:00 Gage Torres [facility] PROTHROMBIN TIME / INR 2020-10-13 10:26:00 Gage Torres [facility] D-DIMER 2020-10-13 10:26:00 Gage oTrres [facility] ACTIVATED PARTIAL 2020-10-13 10:26:00 Gage Torres [facility] THRMPLAS CHER [facility] TROPONIN I 2020-10-13 10:09:00 Gage Torres [facility] THYROID STIMULATING 2020-10-13 10:09:00 Gage Torres [facility] HORMONE [facility] Branch ETHANOL 2020-10-13 10:09:00 Gage Torres [facility] EXTRA TUBE ORANGE 2020-10-13 10:09:00 Gage Torres [facility] EXTRA TUBE LT. GREEN 2020-10-13 10:09:00 Gage Torres [facility] LIPASE 2020-10-13 10:09:00 Gage Torres [facility] COVID-19 (ID NOW RAPID 2020-10-13 10:06:00 Gage Torres [facility] TESTING) Medical Branch LIPASE 2020-09-17 03:02:00 William [facility] TEST, SERUM 2020-09-17 03:02:00 [facility] 2020-09-17 03:02:00 William, [facility] ([id number]) (ALB,T.PRO,BILI [facility] Branch T,BU/BC,ALT,AST,ALK PHOS) BASIC METABOLIC PANEL 2020-09-17 03:02:00 William, [facility] (NA, K, CL, CO2, Medical Branch GLUCOSE, BUN, CREATININE, CA) CBC WITH DIFF 2020-09-17 03:02:[facility]BD[facility] PELVIS W 2020-09-06 11:31:59 Arnold Coughlin [facility] CONTRAST [facility] XR CHEST 1 VW 2020-09-06 10:03:21 Arnold Coughlin [facility] CBC WITH DIFF 2020-09-06 09:58:00 Arnold Coughlin [facility] LIPASE 2020-09-06 09:57:00 Arnold Coughlin [facility] TROPONIN I 2020-09-06 09:57:00 Arnold Coughlin [facility] COMP. METABOLIC PANEL 2020-09-06 09:57:00 Arnold Coughlin [facility] ([id number]) Medical Branch N-TERMINAL PRO-BNP 2020-09-06 09:57:00 Arnold Coughlin [facility] D-DIMER 2020-09-02 02:24:00 Ana Sommers [facility] COVID-19 (ID NOW RAPID 2020-09-02 00:10:00 Ana Sommers [facility] TESTING) Medical Branch LIPASE 2020-09-02 00:07:00 Ana Sommres [facility] TROPONIN I 2020-09-02 00:07:00 Ana Sommers [facility] THYROID STIMULATING 2020-09-02 00:07:00 Ana Sommers [facility] HORMONE [facility] Branch HEPATIC FUNCTION PANEL 2020-09-02 00:07:00 Ana Sommers [facility] ([id number]) (ALB,T.PRO,BILI [facility] Branch T,BU/BC,ALT,AST,ALK PHOS) BASIC METABOLIC PANEL 2020-09-02 00:07:00 Ana Sommers [facility] (NA, K, CL, CO2, Medical Branch GLUCOSE, BUN, CREATININE, CA) CBC WITH DIFF 2020-09-02 00:07:00 Ana Sommers [facility] N-TERMINAL PRO-BNP 2020-09-02 00:07:00 Ana Sommers [facility] XR CHEST 1 VW 2020-09-02 00:02:14 Ana Sommers [facility] NOTICE OF PRIVACY 2020-09-01 22:34:26 Doctor Unassigned, No [facility] PRACTICES Name Medical Branch CONSENT/REFUSAL FOR 2020-09-01 22:34:08 Doctor Unassigned, No [facility] DIAGNOSIS AND TREATMENT Name Medical Branch BASIC METABOLIC PANEL 2020-04-12 10:18:00 Buddy Montes [facility] (NA, K, CL, CO2, Medical Branch GLUCOSE, BUN, CREATININE, CA) CBC WITH DIFF 2020-04-12 10:18:00 Buddy Montes [facility] XR FOREARM 2 VW LEFT 2020-04-11 17:54:00 Jennifer [facility] XR HAND 3+ VW LEFT 2020-04-11 17:54:00 Jennifer [facility] of [facility] XR WRIST 3+ VW LEFT 2020-04-11 17:54:00 Jennifer [facility] ty [facility] XR ANKLE 3+ VW LEFT 2020-04-11 12:47:35 Clay Garay [facility] XR FOOT 3+ VW LEFT 2020-04-11 12:47:35 Clay Garay [facility] XR TIBIA FIBULA 2 VW 2020-04-11 12:47:35 Clay Garay [facility] CT TRAUMA HEAD WO 2020-04-11 12:41:26 Clay Garay [facility] CONTRAST [facility] CT TRAUMA THORAX W 2020-04-11 12:41:26 Clay Garay [facility] CT TRAUMA CERVICAL SPINE 2020-04-11 12:41:26 Tanisha [facility] CONTRAST Medical Branch CT TRAUMA THORACIC SPINE 2020-04-11 12:41:26 Tanisha [facility] CONTRAST Medical [place] CT TRAUMA ABDOMEN PELVIS 2020-04-11 12:41:26 Tanisha [facility] W CONTRAST Medical Branch CT TRAUMA LUMBAR SPINE 2020-04-11 12:41:26 Clay Garay [facility] CONTRAST [facility] Branch HB ABO GROUPING 2020-04-11 12:20:00 Sanjay [facility] BASIC METABOLIC PANEL 2020-04-11 12:17:00 John Grace [facility] (NA, K, CL, CO2, [facility] GLUCOSE, BUN, CREATININE, CA) CBC WITHOUT DIFF 2020-04-11 12:17:00 [facility] PROTHROMBIN TIME / INR 2020-04-11 12:17:00 [facility] ACTIVATED PARTIAL 2020-04-11 12:17:00 Sanjay [facility] THRMPLAS CHER [facility] EKG-12 LEAD 2020-04-11 04:23:07 Gage Torres [facility] TROPONIN I 2020-04-11 01:53:00 Vamshi [facility] EKG-12 LEAD 2020-04-11 01:46:16 [facility] - DRUG SCREEN 2020-04-10 05:19:00 Singer [facility] TRIAGE [facility] Branch XR CHEST 1 VW 2020-04-10 04:26:18 Singer [facility] COVID-19 (ID NOW RAPID 2020-04-10 04:15:00 Singer Wiley [facility] TESTING) Medical Branch D-DIMER 2020-04-10 04:14:00 Singer [facility] LIPASE 2020-04-10 04:11:00 Singer [facility] MAGNESIUM 2020-04-10 04:11:00 [facility] TROPONIN I 2020-04-10 04:11:00 Singer [facility] COMP. METABOLIC PANEL 2020-04-10 04:11:00 Wiley Gay [facility] ([id number]) [facility] CBC WITH DIFF 2020-04-10 04:11:00 Singer [facility] N-TERMINAL PRO-BNP 2020-04-10 04:11:00 Singer Wiley [facility] EKG-12 LEAD 2020-04-10 03:55:43 Singer [facility] NOTICE OF PRIVACY 2020-04-10 03:51:52 Doctor Unassigned, No Univ [facility] PRACTICES Name Medical Branch CONSENT/REFUSAL FOR 2020-04-10 03:51:01 [facility]igned, [facility] Name Medical Branch COMP. METABOLIC PANEL 2020-02-25 18:39:00 Estrada, [place] [facility] ([id number]) [facility] CBC WITH DIFF 2020-02-25 18:39:00 Georgia Estrada [facility] EKG-12 LEAD 2020-02-25 18:27:17 Estrada [place] Ortega [facility] CT ABDOMEN PELVIS W 2019-07-13 00:47:46 Diego Shelby B [facility] POCT TEST 2019-07-13 00:29:00 Lucia Diego B Univers [facility] LIPASE 2019-07-12 23:07:00 Diego Shelby B [facility] COMP. METABOLIC PANEL 2019-07-12 23:07:00 Diego Shelby B Unive [facility] ([id number]) [facility] CBC WITH DIFFERENTIAL 2019-07-12 23:07:00 Lucia Diego B Unive [facility] URINALYSIS 2019-07-12 23:07:00 Diego Shelby B [facility] XR CHEST 1 VW 2019-03-06 16:21:04 Andressa Christianson [facility] Encounters Start End Encounter Admission Attending Care Care Encounter Source Date/Time Date/Time Type Type Clinicians Facility Department ID 2021 Outpatient CHRISTUS AVANI [id number] CHRISTU 20:48:43 -[id number] [facility] 2021 Outpatient CHRISTUS CHRISTUS [id number] CHRISTU 20:48:43 -[id number] [facility] 2021-09-21 2021-09-21 Emergency Rena Georgia Ortega [facility] 1.2.840. [id number] Univers 20:28:00 22:36:00 [place] V[facility] [id number] [facility] 4.2.7.2.686 [facility] [id number] [facility] 084 Branch 2021-09-21 2021-09-21 Emergency X Villa VAZQUEZ [facility] ERT [id number] Univers 20:28:00 [facility]36[facility] 2021-03-25 2021-03-25 Emergency [facility] [id number] Univers 03:49:00 11:27:00 Arnold Huynh [id number] [place] [address] [id number] [facility] 084 Branch 2021-03-25 2021-03-25 Emergency X ELIDA [facility] ERT [id number] Univers 03:49:00 03:49:00 WAKILI ity of [facility] 2020-12-01 2020-12-01 Letter Melanie Kolb [id number] 00:00:00 00:00:00 (Out) Adaleva Julian [id number] [place] [id number] [id number] 2020-12-01 2020-12-01 Letter Melanie Kolb 1.2.840.114 [id number] Univers 00:00:00 00:00:00 (Out) Adal Julian [id number] it y of [facility] 4.2.7.2.[address] [place] [address] [id number] [place] 508060 Branch 2020-11-22 2020-11-23 [facility] 1.2.840.11 [id number] 06:16:00 14:46:00 Encounter SergeiSadiAnkit Julian [id number] [place] [address].2.[facility] [id number] [facility] 2020-11-22 2020-11-23 [facility] 1.2.840.11 [id number] Univers 06:16:00 14:46:00 Encounter Sadi MaiCindyChris Eliel [id number] ity [place] [address] [place] [address] [id number] [place] 508060 Branch 2020-11-22 2020-11-23 Outpatient X [facility] [id number] Univers 06:16:00 14:46:00 ADAL ity [facility] 2020-10-22 2020-10-22 Emergency Chaka Steinberg TRAUMA 1.2.840.114 [id number] 02:04:00 07:32:00 W CENTER [id number] 4.2.7.2.686 [id number] 2020-10-22 2020-10-22 Emergency Chaka Steinberg TRAUMA 1.2.840.114 [id number] Univers 02:04:00 07:32:00 W CENTER [id number] [place] [id number] [address] 2020-10-22 2020-10-22 Emergency X CHAKA STEINBERG [facility] ERT [id number] Univers 02:04:00 07:32:00 ity of [facility] 2020-10-19 2020-10-20 Emergency TRAUMA [id number] 23:59:00 00:57:00 CENTER [id number] 4.2.7.2.686 [id number] 2020-10-19 2020-10-20 Emergency TRAUMA [id number] Univers 23:59:00 00:57:00 CENTER [id number] [place] [id number] [address] 2020-10-19 2020-10-20 Emergency X UNKNOWN, [facility] ERT [id number] Univers 23:59:00 00:57:00 ATTENDING ity of [facility] 2020-10-15 2020-10-15 Emergency Sergei, TRAUMA [id number] 07:37:00 15:30:00 [facility] [id number] 4.2.7.2.686 [id number] 014 2020-10-15 2020-10-15 Emergency Sergei, TRAUMA [id number] Univers 07:37:00 15:30:00 [facility] [id number] [place] [id number] [address] 2020-10-15 2020-10-15 Emergency X [facility] ERT [id number] Univers 07:28:00 07:28:00 ity [facility] 2020-10-13 2020-10-13 Emergency Melissa, Gage E TRAUMA 1.2.840 .114 [id number] 04:42:00 11:13:00 Miguelito Salter [facility] 350.1.13.10 Moises Anderson 4.2.7.2.68 [id number] [facility] 2020-10-13 2020-10-13 Emergency Melissa, Gage E TRAUMA 1.2.840 .114 [id number] Univers 04:42:00 11:13:00 Miguelito Salter [facility] 350.1.13.10 ity Moises Anderson 4.2.7.2.686 [place] [id number] [address] 2020-10-13 2020-10-13 Emergency X MELISSA, [facility] ERT [id number] Univers 04:42:00 04:42:00 GAGE canales [facility] 2020-09-16 2020-09-17 Emergency William, [facility] [id number] 21:39:00 00:11:00 Hoang Huynh 350.1.13.10 [place] 4.2.7.2.686 [place] [id number] [facility] 2020-09-16 2020-09-17 Emergency William, [facility] [id number] Univers 21:39:00 00:11:00 Hoang Huynh 350.1.13.10 i ty of [place] 4.2.7.[address] [place] [id number] 2020-09-16 2020-09-16 Emergency X WILLIAM, [facility] ERT [id number] Univers 21:39:00 21:39:00 DARRELSEVEN canales [facility] 2020-09-12 2020-09-12 Emergency X , [facility] ERT [id number] Univers 05:03:00 06:28:00 WILEY parker [facility] 2020-09-06 2020-09-06 Emergency [facility] [id number] 04:37:00 07:13:00 Anrold Huynh 350.1.13.10 [place] 4.2.7.2.686 [place] [id number] 08 2020-09-06 2020-09-06 Emergency [facility] [id number] Univers 04:37:00 07:13:00 [facility] Mar[facility] KnowlesKetchum 350.1.13.10 ity of [place] 4.2.7.2.686 [facility] [id number] [facility] 084 Branch 2020-09-06 2020-09-06 Emergency X [facility] ERT [id number] Univers 04:37:00 07:13:00 [facility] ity [facility] 2020-09-01 2020-09-01 Emergency [facility] [id number] Univers 17:06:00 21:39:00 Ana Shepherd Lino 350.1.13.10 ity of [place] 4.2.7.2.6 [facility] [id number] [facility] 084 Branch 2020-09-01 2020-09-01 Emergency [facility] [id number] 17:06:00 21:39:00 Ana Shepherd Lino 350.1.13.10 [place] 4.2.7.2.6 [place] [id number] 2020-09-01 2020-09-01 Emergency X [facility] ERT [id number] Univers 16:36:00 16:36:00 ity of [facility] 2020-09-01 2020-09-01 Orders Doctor GOODWIN 1.2.840.114 [id number] Univers 00:00:00 00:00:00 Only Unassigned, ELIEL 350.1.13.10 ity of [facility] 4.2.7.2.686 [facility] [id number] [facility] 009 Branch 2020-09-01 2020-09-01 Orders Doctor GOODWIN 1.2.840.114 [id number] 00:00:00 00:00:00 Only Unassigned, ELIEL 350.1.13.10 [facility] 4.2.7.2.686 [id number] 2020-04-15 2020-04-15 Transition Francisco Price 1.2.840.114 [id number] Univers 00:00:00 00:00:00 of Care Rafaela Cavazosy 350.1.13.10 i ty of [place] [id number] [facility] 403 Branch 2020-04-15 2020-04-15 Transition Francisco Price 1.2.840.114 [id number] 00:00:00 00:00:00 of Care Rafaela Cavazosy 350.1.13.10 [place] 4.2.7.2.686 [id number] 2020-04-11 2020-04-14 [facility] Melanie Brewer [id number] Univers 06:55:00 20:35:00 Encounter Pedrito Julian 350.1.13.10 ity of Hospital 4.2.7.2.686 Vishal as [id number] [facility] 098 Branch 2020-04-11 2020-04-11 Emergency T [facility] STR [id number] Univers 06:55:00 06:55:00 ity of [facility] 2020-04-10 2020-04-11 Emergency Melissa, TRAUMA [id number] Univers 23:04:00 01:06:00 Gage SANDY 350.1.13.10 [place] [id number] [facility] 014 Branch 2020-04-10 2020-04-10 Emergency X MELISSA, [facility] ERT [id number] Univers 23:04:00 23:04:00 GAGE canales of [facility] 2020-04-10 2020-04-10 Emergency Vamshi, Opal TRAUMA 1.2.840. 114 [id number] Univers 20:37:00 22:02:00 Pedrito Rosado 350.1.13.10 [place] [id number] [facility] 014 Branch 2020-04-10 2020-04-10 Emergency X MIGUEL, [facility] ERT [id number] Univers 20:37:00 20:37:00 PEDRITO canales [facility] 2020-04-09 2020-04-10 Emergency [facility] [id number] Univers 22:56:00 00:49:00 Wiley Huynh 350.1.13.10 i ty of [place] 4[place] [id number] [address] 2020-04-09 2020-04-09 Emergency X [facility] ERT [id number] Univers 22:49:00 22:49:00 WILEY canales [facility] 2020-02-25 2020-02-25 Emergency [facility] [id number] Univers 13:23:00 14:09:00 Georgia Huynh 350.1.13.10 i ty of [place] 4[place].2.[place] [id number] [address] 2020-02-25 2020-02-25 Emergency X [facility] ERT [id number] Univers 13:23:00 13:23:00 GEORGIA canales [facility] 2019-07-12 2019-07-12 Emergency Unknown, Attending TRAUMA [id number] [id number] Univers 15:04:04 21:14:00 Gladys Marley [facility] 350.1.13. 10 [place] [id number] [facility] 014 Branch 2019-07-12 2019-07-12 Emergency [facility] [id number] Univers 15:04:04 21:14:00 GLADYS canales [facility] 2019-03-06 2019-03-06 Hospital [facility] 1.2.840.114 [id number] Univers 11:16:49 23:59:00 Encounter Andressa Magana Ishmael [facility] 350.1.13.10 ity of Unit [place] [id number] [facility] [address] Results Test Description Test Time Test Comments Results Result Comments Source TROPONIN I 2021-09-22 02:32:27 Test Item Value Reference Range Interpretation Comme nts TROPONIN I (test code = 0.006 ng/mL See_Comment [Au tomated message] The [id number]) system which Emissary nerated this result tra nsmitted reference range [...] biotin. Lab Interpretation Normal (test code = 48980-7) [facility] [id number] 02:29:25 Test Item Value Reference Range Interpretation Comments NT-proBNP (test code 77 pg/mL See_Comment [Autom ated = [id number]) message] The system which generated this result transmitted reference range : <=125. The reference range was not used to interpret this result as normal/abnormal . PAULA (test code = PAULA) Biotin has been reported to cause a negative bias, interpret results relative to patient's use of biotin. Lab Interpretation Normal (test code = 12987-2) [facility] WITH [id number] 02:21:26 Test Item Value Reference Range Interpretation Comments WBC (test code = See_Comment [Automated message] The 6690-2) system which Emissary nerated this result tra nsmitted reference range : 4.30 - 11.10 10*3/?L. The reference range was not used to interpr et this result as normal/abnormal . RBC (test code = See_Comment [Automated message] The 789-8) system which Emissary nerated this result tra nsmitted reference range [...] RDW-SD (test code 45.0 fL 39.0-49.9 = 44468-0) RDW-CV (test code 13.6 % 12.0-15.5 = 788-0) PLT (test code = See_Comment [Automated message] The 777-3) system which Emissary nerated this result tra nsmitted reference range : 166 - 358 10*3/?L. Th e reference range was not used to interpr et this result as normal/abnormal . MPV (test code = 10.5 fL 9.5-12.9 97263-8) IPF % (test code 3.1 % 1.3-7.7 Platelet co unt measured = 7539108201) by fluorescenc e method. NRBC/100 WBC See_Comment [Automated mes joe] The (test code = system which Emissary nerated 7643834902) this result tra nsmitted reference range : 0.0 - 10.0 /100 WBCs. The reference range was not used to interpr et this result as normal/abnormal . NRBC x10^3 (test <0.01 See_Comment [Automated message] The code = system which Emissary nerated 4453633982) this result tra nsmitted reference range : 10*3/?L. The re ference range was not u sed to interpret this result as normal/abnormal . GRAN MAT (NEUT) % 75.4 % (test code = 770-8) IMM GRAN % (test 0.50 % code = 9295162534) LYMPH % (test 15.8 % code = 736-9) MONO % (test code 6.8 % = 5905-5) EOS % (test code 0.9 % = 713-8) BASO % (test code 0.6 % = 706-2) GRAN MAT 6.46 10*3/uL 1.88-7.09 x10^3(ANC) (test code = 4129023223) IMM GRAN x10^3 0.04 10*3/uL 0.00-0.06 (test code = 0087294904) LYMPH x10^3 (test 1.35 10*3/uL 1.32-3.29 code = 731-0) MONO x10^3 (test 0.58 10*3/uL 0.33-0.92 code = 742-7) EOS x10^3 (test 0.08 10*3/uL 0.03-0.39 code = 711-2) BASO x10^3 (test 0.05 10*3/uL 0.01-0.07 code = 704-7) [facility]06 Test Item Value Reference Range Interpretation Comments MAGNESIUM (test code = 6255524051) 2.0 mg/dL 1.7-2.4 Lab Interpretation (test code = Normal 24409-9) [facility] METABOLIC PANEL (59309)2021-09-22 02:20:45 Test Item Value Reference Range Interpretation Comments NA (test code = 136 mmol/L 135-145 2934771883) K (test code = 4.7 mmol/L 3.5-5.0 6843375834) CL (test code = 106 mmol/L 98-108 4390287032) CO2 TOTAL (test code = 17 mmol/L 23-31 L 4843451565) AGAP (test code = 2-16 2831147227) BUN (test code = 10 mg/dL 7-23 7341620822) GLUCOSE (test code = 99 mg/dL 70-110 5312994288) CREATININE (test code = 0.50 mg/dL 0.50-1.04 6082896865) TOTAL BILI (test code = 0.9 mg/dL 0.1-1.5 0955385820) CALCIUM (test code = 8.9 mg/dL 8.6-10.6 4563949774) T PROTEIN (test code = 8.3 g/dL 6.3-8.2 H 5772359062) ALBUMIN (test code = 4.8 g/dL 3.5-5.0 9568219041) ALK PHOS (test code = 66 U/L 34-122 7183044036) ALTv (test code = 22 U/L 5-35 1742-6) AST(SGOT) (test code = 40 U/L 13-40 2902758957) eGFR (test code = mL/min/1.73m2 8349718048) PAULA (test code = PAULA) Association of [...] tests). Lab Interpretation Abnormal (test code = 19538-3) [facility]POND [id number] 01:43:00 Test Item Value Reference Range Interpretation Comments POCT PREG (test code = 1605) negative On board controls acceptable with present C Line (test code = 3574) POCT PREG LOT # (test code = 3575) [id number] POCT PREG TEST DATE (test 2022-08-23 code = 3576) Lab Interpretation (test code = Normal 31724-3) [facility] [id number] 12:15:08 Test Item Value Reference Interpretation Comments Range TROPONIN I (test 0.009 ng/mL See_Comment [Automated code = 9562929512) message] The system which generated this result [...] biotin. Lab Interpretation Normal (test code = 17027-8) [facility]D-[id number] 10:51:58 Test Item Value Reference Interpretation Comments Range D-DIMER (test code = See_Comment H [Autom ated 0696533567) message] The system which generated this result [...] diagnosis. Lab Interpretation Abnormal (test code = 74284-0) [facility]CBC WITH [id number] 10:39:17 Test Item Value Reference Range Interpretation [...] (test code = 51.8 fL 39.0-49.9 H 56958-7) RDW-CV (test code = 15.7 % 12.0-15.5 H 788-0) PLT (test code = See_Comment [Automated 777-3) message] The sy stem which generated this result transmitted reference range : 166 - 358 10*3/ ?L. The reference r micah was not used to interpret this result as normal/abnormal . MPV (test code = 10.2 fL 9.5-12.9 52502-7) IPF % (test code = 1.9 % 1.3-7.7 Platelet count 7395599297) measured by fluorescence method. NRBC/100 WBC (test See_Comment [Automat ed code = 6276372929) message] The system which generated this result transmitted reference range : 0.0 - 10.0 /100 WBCs. The refer ence range was not u sed to interpret th is result as normal/abnormal . NRBC x10^3 (test code <0.01 See_Comment [Auto mated = 6871349106) message] The s ystem which generated this result transmitted reference range : 10*3/?L. The reference range was not used to interpret this result as normal/abnormal . GRAN MAT (NEUT) % 63.4 % (test code = 770-8) IMM GRAN % (test code 0.20 % = 6077880975) LYMPH % (test code = 24.2 % 736-9) MONO % (test code = 10.4 % 5905-5) EOS % (test code = 0.9 % 713-8) BASO % (test code = 0.9 % 706-2) GRAN MAT x10^3(ANC) 3.34 10*3/uL 1.88-7.09 (test code = 0871253932) IMM GRAN x10^3 (test <0.03 0.00-0.06 code = 3131856762) LYMPH x10^3 (test code 1.28 10*3/uL 1.32-3.29 L = 731-0) MONO x10^3 (test code 0.55 10*3/uL 0.33-0.92 = 742-7) EOS x10^3 (test code = 0.05 10*3/uL 0.03-0.39 711-2) BASO x10^3 (test code 0.05 10*3/uL 0.01-0.07 = 704-7) PLT ESTIMATE (test Normal Normal code = 9317-9) Lab Interpretation Abnormal (test code = 77113-7) [facility] [id number] 10:26:56 Test Item Value Reference Interpretation Comments Range TROPONIN I (test 0.011 ng/mL See_Comment [Automated code = 0919010961) message] The system which generated this result [...] biotin. Lab Interpretation Normal (test code = 89818-6) [facility]. METABOLIC PANEL (80167)2021-03-25 10:15:34 Test Item Value Reference Range Interpretation Comments NA (test code = 141 mmol/L 135-145 0468255204) K (test code = 3.7 mmol/L 3.5-5.0 9116378657) CL (test code = 108 mmol/L 98-108 7246173934) CO2 TOTAL (test code = 23 mmol/L 23-31 6979013923) AGAP (test code = 2-16 2744779502) BUN (test code = 6 mg/dL 7-23 L 2859358051) GLUCOSE (test code = 108 mg/dL 70-110 6241798471) CREATININE (test code = 0.65 mg/dL 0.50-1.04 8483115501) TOTAL BILI (test code = 0.4 mg/dL 0.1-1.8 7544616108) CALCIUM (test code = 8.7 mg/dL 8.6-10.6 2654900385) T PROTEIN (test code = 7.9 g/dL 6.3-8.2 7034590302) ALBUMIN (test code = 4.3 g/dL 3.5-5.0 5661530883) ALK PHOS (test code = 72 U/L 34-122 6583914110) ALTv (test code = 31 U/L 5-35 1742-6) AST(SGOT) (test code = 45 U/L 13-40 H 8426880856) eGFR (test code = mL/min/1.73m2 8572170280) PAULA (test code = PAULA) Association of [...] tests). Lab Interpretation Abnormal (test code = 07712-7) [facility]LIPASE[facility]21[facility] 10:15:34 Test Item Value Reference Range Interpretation Comments LIPASE (test code = 7541679339) 54 U/L 0-220 Lab Interpretation (test code = Normal 78674-8) [facility] HospitalaPTT (for use with Heparin Drip)2020-11-23 11:10:10 Test Item Value Reference Range Interpretation Comments APTT Patient (test code See_Comment H [Au tomated message] = 3173-2) The system [employer] generated this result transmitted ref erence range: 26 - 36 Seconds. The reference range was not used to int erpret this result as normal/abnormal . Lab Interpretation (test Abnormal code = 22707-9) [facility] HospitalBasic Metabolic [facility] (NA, K, CL, CO2, GLUCOSE, BUN, CREATININE, CA)2020-11-23 05:36:05 Test Item Value Reference Range Interpretation Comments NA (test code = 133 mmol/L 135-145 L 6232310263) K (test code = 3.6 mmol/L 3.5-5.0 7536266404) CL (test code = 105 mmol/L 98-108 3669183735) CO2 TOTAL (test code = 24 mmol/L 23-31 8545966996) AGAP (test code = 2-16 4028392203) BUN (test code = 11 mg/dL 7-23 2589173888) GLUCOSE (test code = 104 mg/dL 70-110 8332182068) CREATININE (test code = 0.64 mg/dL 0.50-1.04 8208693312) CALCIUM (test code = 8.4 mg/dL 8.6-10.6 L 0802191297) eGFR (test code = mL/min/1.73m2 8689384820) PAULA (test code = PAULA) Association of [...] tests). Lab Interpretation Abnormal (test code = 74313-4) [facility] HospitalMagnesium [id number] 05:36:05 Test Item Value Reference Range Interpretation Comments MAGNESIUM (test code = 1815339987) 2.1 mg/dL 1.7-2.4 Lab Interpretation (test code = Normal 74392-2) [facility]aPTT (for use with Heparin Drip)2020-11-23 05:25:43 Test Item Value Reference Range Interpretation Comments APTT Patient (test code See_Comment H [Au tomated message] = 3173-2) The system [employer] generated this result transmitted ref erence range: 26 - 36 Seconds. The reference range was not used to int erpret this result as normal/abnormal . Lab Interpretation (test Abnormal code = 70433-5) [facility] with Xcdncscgiheq7413-22-21 05:11:43 Test Item Value Reference Range Interpretation [...] RDW-SD (test code = 43.7 fL 39.0-49.9 52220-1) RDW-CV (test code = 13.1 % 12.0-15.5 788-0) PLT (test code = See_Comment [Automated 777-3) message] The sy stem which generated this result transmitted reference range : 166 - 358 10*3/ ?L. The reference r micah was not used to interpret this result as normal/abnormal . MPV (test code = 9.2 fL 9.5-12.9 L 32426-6) NRBC/100 WBC (test See_Comment [Automat ed code = 8536683897) message] The system which generated this result transmitted reference range : 0.0 - 10.0 /100 WBCs. The refer ence range was not u sed to interpret th is result as normal/abnormal . NRBC x10^3 (test code <0.01 See_Comment [Auto mated = 9639545528) message] The s ystem which generated this result transmitted reference range : 10*3/?L. The reference range was not used to interpret this result as normal/abnormal . GRAN MAT (NEUT) % 58.2 % (test code = 770-8) IMM GRAN % (test code 0.50 % = 3343445392) LYMPH % (test code = 28.4 % 736-9) MONO % (test code = 8.9 % 5905-5) EOS % (test code = 3.3 % 713-8) BASO % (test code = 0.7 % 706-2) GRAN MAT x10^3(ANC) 3.53 10*3/uL 1.88-7.09 (test code = 0059194716) IMM GRAN x10^3 (test 0.03 10*3/uL 0.00-0.06 code = 2926012299) LYMPH x10^3 (test code 1.72 10*3/uL 1.32-3.29 = 731-0) MONO x10^3 (test code 0.54 10*3/uL 0.33-0.92 = 742-7) EOS x10^3 (test code = 0.20 10*3/uL 0.03-0.39 711-2) BASO x10^3 (test code 0.04 10*3/uL 0.01-0.07 = 704-7) Lab Interpretation Abnormal (test code = 05179-0) [facility] HospitalXR CHEST 1 [id number] 00:27:06 No acute cardiopulmonary abnormality. Preliminary Report [...] reviewed this study and agree with theabove report.[facility] HospitalTHYROID STIMULATING [id number] 22:15:04 Test Item Value Reference Range Interpretation Comments TSH (test code = See_Comment [Automated message] 7870455218) The system [employer] generated this result transmitted ref erence range: 0.45 - 4 .70 mIU/L. The refe rence range was not u sed to interpret this result as normal/abnor mal. Lab Interpretation (test Normal code = 48809-5) [facility] HospitalGLYCOSYLATED HEMOGLOBIN (A1C)2020-11-22 22:14:59 Test Item Value Reference Range Interpretation Comments HGB A1C (test code = 5.1 % 4.0-5.7 4548-4) PAULA (test code = PAULA) Reference RangesNormal: <5.7%Prediabetes: 5.7 - 6.4%Diabetes: > 6.5% Lab Interpretation (test Normal code = 04842-8) [facility] HospitalFREE [id number] 22:01:07 Test Item Value Reference Range Interpretation Comments FREE T4 (test code = See_Comment [Autom ated message] 8752389806) The system [employer] generated this result transmitted ref erence range: 0.78 - 2 .20 ng/dL:. The ref erence range was not u sed to interpret this result as normal/abnor mal. Lab Interpretation (test Normal code = 84077-2) [facility] HospitalLIPID PANEL (36147)(TOTAL CHOLESTEROL, TRIGLYCERIDES, HDL)2020-11-22 21:44:08 Test Item Value Reference Range Interpretation Comments CHOL (test code = 279 mg/dL 120-200 H 6226624357) HDL (test code = 85 mg/dL >50 4495613191) HDLC RATIO (test code = See_Comment [Au tomated message] 2456386518) The system [employer] generated this result transmit bhaskar reference range : <=4.5. The refe rence range was not u sed to interpret th is result as normal/abnormal . TRIG (test code = 312 mg/dL 30-170 H 7339648957) LDL CHOL (test code = 132 mg/dL See_Comment [Auto mated message] 34099-0) The system [employer] generated this result transmit bhaskar reference range : <=160. The refe rence range was not u sed to interpret th is result as normal/abnormal . VLDL (test code = 62 mg/dL 5-60 H 3440005710) Lab Interpretation (test Abnormal code = 52627-3) [facility] HospitalCT ANGIOGRAM [id number] 21:04:53 1. ?No acute aortic syndrome. No [...] this study and agree with theabove report. [facility] HospitalTRDEONTE [id number] 20:12:00 Test Item Value Reference Range Interpretation Comments TROPONIN I (test 0.014 ng/mL See_Comment [Automated code = 5606191949) message] The system which generated this result [...] ? Lab Interpretation Normal (test code = 76312-3) [facility] HospitalCOVID-19 (ID NOW RAPID TESTING)2020-11-22 19:49:57 Test Item Value Reference Range Interpretation Comments SARS-CoV-2 Rapid ID NOW Not Detected Not Detected (test code = 71940-6) PAULA (test code = PAULA) ID NOW COVID-19 Assay is an isothermal nucleic acid amplification test intended for the qualitative detection of nucleic acid from SARS-CoV-2 viral RNA in nasopharyngeal ([employer]) specimens. It is used under Emergency Use [...] indicated. Lab Interpretation Normal (test code = 23888-9) [facility] HospitalPOCT [id number] 19:43:00 Test Item Value Reference Range Interpretation Comments POCT PREG (test code = 1605) negative On board controls acceptable with present C Line (test code = 3574) POCT PREG LOT # (test code = 3575) [id number] POCT PREG TEST DATE (test 05-25-2022 code = 3576) Lab Interpretation (test code = Normal 72469-0) [facility] HospitalTROPONIN [id number] 15:52:28 Test Item Value Reference Range Interpretation Comments TROPONIN I (test 0.047 ng/mL See_Comment H [Automated code = 4329527338) message] The system which generated this result [...] ? Lab Interpretation Abnormal (test code = 18816-5) [facility] HospitalURINE DRUG (IMMUNOASSAY) - COMPREHENSIVE DRUG [id number] 15:24:44 Test Item Value Reference Range Interpretation Comments AMPHET (test code = Presumptive Positive Negative A 9135548757) ANN U (test code = Negative Negative 5921302992) BENZO U (test code = Negative Negative 2251050617) Cocaine Metabolite (test Negative Negative code = 1613178921) METHADONE (test code = Negative Negative 6378654328) OPIATES (test code = Negative Negative 7877202500) PCP (test code = Negative Negative 4918942689) THC (test code = Negative Negative 2897504768) PAULA (test code = PAULA) Urine Drug [...] testing). Lab Interpretation (test Abnormal code = 57936-4) [facility] HospitalCK (CREATINE KINASE) + [id number] 13:16:38 Test Item Value Reference Range Interpretation Comments CK (test code = 751 U/L 33-194 H 9036391649) CK-MB (test code = 6.00 ng/mL See_Comment H [Automat ed 1045770925) message] The system which generated this result transmitted reference range : <=3.50. The reference range was not used to interpret this result as normal/abnormal . CKMB INDEX (test code 0.8 % 0.0-2.5 = 8924772095) PAULA (test code = PAULA) Biotin has been reported to cause a negative bias, interpret results relative to patient's use of biotin. Lab Interpretation Abnormal (test code = 26559-4) [facility] HospitalTROPONIN [id number] 13:16:38 Test Item Value Reference Range Interpretation Comments TROPONIN I (test 0.008 ng/mL See_Comment [Automated code = 8969414242) message] The system which generated this result [...] ? Lab Interpretation Normal (test code = 36040-9) [facility] DRUG (IMMUNOASSAY) - COMPREHENSIVE DRUG [id number] 13:13:47 Test Item Value Reference Range Interpretation Comments ANN S (test code = Negative Negative 8271570554) BENZO S (test code = Negative Negative 9614299394) TRICYCLIC (test code = Negative Negative 0596890209) PAULA (test code = PAULA) Serum Drug Screen Cutoff Ranges Barbiturates ? ? - 3 mcg/mLBenzodiazepines ?- 50 ng/mLTCA ?- 300 ng/mL Test developed and characteristics determined by [facility] Laboratory Services. The results are to be used only for medical (i.e., treatment) purposes. Unconfirmed screening results must not be used for non-medical purposes (e.g., employment testing, legal testing). Lab Interpretation Normal (test code = 03849-3) [facility] HospitalURINALYSIS2021-05-30 13:13:32 Test Item Value Reference Range Interpretation Comments APPEARANCE (test code = Clear Clear 3324896121) COLOR (test code = Colorless Yellow A 5162207658) PH (test code = 4.8-8.0 5017542247) SP GRAVITY (test code = 1.003-1.030 L 2773867311) GLU U QUAL (test code = Normal Normal 8822035031) BLOOD (test code = 1+ Negative A 7425670018) KETONES (test code = Negative Negative 0268057523) PROTEIN (test code = Negative Negative 2887-8) UROBILIN (test code = Normal Normal 0034407054) BILIRUBIN (test code = Negative Negative 6540153929) NITRITE (test code = Negative Negative 7575413639) LEUK JONATHON (test code = Negative Negative 2037031680) RBC/HPF (test code = See_Comment [Autom ated message] 3233379534) The system [employer] generated this result transmit bhaskar reference range : 0 - 3 HPF. The refe rence range was not u sed to interpret th is result as normal/abnormal . WBC/HPF (test code = <1 See_Comment [Autom ated message] 1633443822) The system [employer] generated this result transmit bhaskar reference range : 0 - 5 HPF. The refe rence range was not u sed to interpret th is result as normal/abnormal . BACTERIA (test code = Negative Negative 2076463514) AMORPHOUS (test code = Rare Rare HPF 2706900509) Lab Interpretation (test Abnormal code = 63624-5) [facility] HospitalD-[id number] 13:09:19 Test Item Value Reference Interpretation Comments Range D-DIMER (test code = See_Comment [Autom ated 3163259161) message] The system which generated this result [...] diagnosis. Lab Interpretation Normal (test code = 24777-9) [facility]. METABOLIC PANEL (16707)2020-11-22 13:06:21 Test Item Value Reference Range Interpretation Comments NA (test code = 139 mmol/L 135-145 6144954610) K (test code = 4.1 mmol/L 3.5-5.0 8944932461) CL (test code = 106 mmol/L 98-108 4064728245) CO2 TOTAL (test code = 20 mmol/L 23-31 L 8935643908) AGAP (test code = 2-16 5366644258) BUN (test code = 12 mg/dL 7-23 7811954483) GLUCOSE (test code = 92 mg/dL 70-110 5119362166) CREATININE (test code = 0.58 mg/dL 0.50-1.04 7322852669) TOTAL BILI (test code = 0.2 mg/dL 0.1-1.2 5245331676) CALCIUM (test code = 9.4 mg/dL 8.6-10.6 9439770959) T PROTEIN (test code = 7.6 g/dL 6.3-8.2 1669791727) ALBUMIN (test code = 4.5 g/dL 3.5-5.0 2156273326) ALK PHOS (test code = 70 U/L 34-122 9207604778) ALTv (test code = 14 U/L 5-35 2-6) AST(SGOT) (test code = 29 U/L 13-40 0655904281) eGFR (test code = mL/min/1.73m2 2929544682) PAULA (test code = PAULA) Association of [...] tests). Lab Interpretation Abnormal (test code = 92733-9) [facility] HospitalETHANOL2021-05-30 13:06:21 Test Item Value Reference Range Interpretation Comments ALCOHOL (test code = 112 mg/dL 2348341665) PAULA (test code = Toxic Greater than or PAULA) equal to 80 mg/dL. NOTE: Whole blood values are approximately 10% to 15% lower than serum and plasma. [facility] HospitalLIPASE2021-[facility]-30 13:06:21 Test Item Value Reference Range Interpretation Comments LIPASE (test code = 5673878069) 118 U/L 0-220 Lab Interpretation (test code = Normal 06673-6) [facility] WITH [id number] 13:00:59 Test Item Value Reference Range Interpretation Comments WBC (test code = See_Comment [Automated message] 6690-2) The system [employer] generated this result transmitted ref erence range: 4.30 - 1 1.10 10*3/?L. The re ference range was not u sed to interpret this result as normal/abnor mal. RBC (test code = See_Comment [Automated message] 789-8) The system [employer] generated this result transmitted ref erence range: [...] RDW-SD (test code 44.0 fL 39.0-49.9 = 19176-2) RDW-CV (test code 13.0 % 12.0-15.5 = 788-0) PLT (test code = See_Comment [Automated message] 777-3) The system whic h generated this result transmitted ref erence range: 166 - 35 8 10*3/?L. The re ference range was not u sed to interpret this result as normal/abnor mal. MPV (test code = 9.9 fL 9.5-12.9 92752-9) NRBC/100 WBC (test See_Comment [Automat ed message] code = 6557350765) The syste m which generated this result transmitted ref erence range: 0.0 - 10 .0 /100 WBCs. The refer ence range was not u sed to interpret this result as normal/abnor mal. NRBC x10^3 (test <0.01 See_Comment [Automated message] code = 9646200130) The syste m which generated this result transmitted ref erence range: 10*3/?L. The reference range was not used to interpr et this result as normal/abnormal . GRAN MAT (NEUT) % 57.8 % (test code = 770-8) IMM GRAN % (test 0.30 % code = 1070394121) LYMPH % (test code 31.0 % = 736-9) MONO % (test code 8.7 % = 5905-5) EOS % (test code = 1.5 % 713-8) BASO % (test code 0.7 % = 706-2) GRAN MAT 3.37 10*3/uL 1.88-7.09 x10^3(ANC) (test code = 3577438735) IMM GRAN x10^3 <0.03 0.00-0.06 (test code = 8500766879) LYMPH x10^3 (test 1.81 10*3/uL 1.32-3.29 code = 731-0) MONO x10^3 (test 0.51 10*3/uL 0.33-0.92 code = 742-7) EOS x10^3 (test 0.09 10*3/uL 0.03-0.39 code = 711-2) BASO x10^3 (test 0.04 10*3/uL 0.01-0.07 code = 704-7) [facility]DR[facility] PANEL 2 [id number] 11:58:10 Test Item Value Reference Range Interpretation Comments AMPHET (test code = Negative Negative 0168143789) ANN U (test code = Negative Negative 1893070446) BENZO U (test code = Negative Negative 5849085301) Cocaine Metabolite (test Negative Negative code = 3611055176) METHADONE (test code = Negative Negative 0420998128) OPIATES (test code = Negative Negative 7604045563) PCP (test code = Negative Negative 1414288269) THC (test code = Negative Negative 6768958623) PAULA (test code = PAULA) Urine Drug [...] testing). Lab Interpretation (test Normal code = 53394-1) [facility] HospitalUrinalysis2021-04-29 10:57:49 Test Item Value Reference Range Interpretation Comments APPEARANCE (test code = Clear Clear 6936832370) COLOR (test code = Colorless Yellow A 2418375781) PH (test code = 4.8-8.0 8483489567) SP GRAVITY (test code = 1.003-1.030 4999350409) GLU U QUAL (test code = Normal Normal 3981910562) BLOOD (test code = 2+ Negative A 5549599510) KETONES (test code = Negative Negative 9713991955) PROTEIN (test code = Negative Negative 2887-8) UROBILIN (test code = Normal Normal 5582803478) BILIRUBIN (test code = Negative Negative 5007339310) NITRITE (test code = Negative Negative 7653075724) LEUK JONATHON (test code = Negative Negative 9584910321) RBC/HPF (test code = See_Comment H [Autom ated message] 8637386751) The system [employer] generated this result transmit bhaskar reference range : 0 - 3 HPF. The refe rence range was not u sed to interpret th is result as normal/abnormal . WBC/HPF (test code = <1 See_Comment [Autom ated message] 5718893242) The system [employer] generated this result transmit bhaskar reference range : 0 - 5 HPF. The refe rence range was not u sed to interpret th is result as normal/abnormal . BACTERIA (test code = Negative Negative 3502410686) SQ EPITH (test code = <1 See_Comment [Auto mated message] 4848300782) The system [employer] generated this result transmit bhaskar reference range : <=2 HPF. The refere nce range was not u sed to interpret th is result as normal/abnormal . ASCORBIC ACID (test code Negative = 5362843846) Lab Interpretation (test Abnormal code = 81293-4) [facility] [id number] 10:29:23 Test Item Value Reference Range Interpretation Comments TROPONIN I (test 0.005 ng/mL See_Comment [Automated code = 8264690805) message] The system which generated this result [...] ? Lab Interpretation Normal (test code = 34989-9) [facility]PO[facility] [id number] 10:12:00 Test Item Value Reference Range Interpretation Comments POCT PREG (test code = 1605) negative On board controls acceptable with C present Line (test code = 3574) POCT PREG LOT # (test code = 3575) HCG Lab Interpretation (test code = Normal 26143-3) [facility] HospitalTroponin [id number] 08:15:07 Test Item Value Reference Range Interpretation Comments TROPONIN I (test 0.007 ng/mL See_Comment [Automated code = 7710735775) message] The system which generated this result [...] ? Lab Interpretation Normal (test code = 55948-9) [facility]COVID[facility] (ID NOW RAPID TESTING)2020-10-22 08:08:44 Test Item Value Reference Range Interpretation Comments SARS-CoV-2 Rapid ID NOW Not Detected Not Detected (test code = 13144-9) PAULA (test code = PAULA) ID NOW COVID-19 Assay is an isothermal nucleic acid amplification test intended for the qualitative detection of nucleic acid from SARS-CoV-2 viral RNA in nasopharyngeal ([employer]) specimens. It is used under Emergency Use [...] indicated. Lab Interpretation Normal (test code = 39835-7) [facility] (NA, K, CL, CO2, GLUCOSE, BUN, CREATININE, CA)2020-10-22 08:00:24 Test Item Value Reference Range Interpretation Comments NA (test code = 136 mmol/L 135-145 0781332326) K (test code = 5.1 mmol/L 3.5-5.0 H Slight 4866647018) hemolysis CL (test code = 107 mmol/L 98-108 3567387685) CO2 TOTAL (test code 22 mmol/L 23-31 L = 1136236263) AGAP (test code = 2-16 8755612965) BUN (test code = 10 mg/dL 7-23 Slight 2085952231) hemolysis GLUCOSE (test code = 107 mg/dL 70-110 3208902198) CREATININE (test code 0.56 mg/dL 0.50-1.04 = 9300720170) CALCIUM (test code = 8.6 mg/dL 8.6-10.6 9219708751) eGFR (test code = mL/min/1.73m2 6381856747) PAULA (test code = PAULA) Association of [...] tests). Lab Interpretation Abnormal (test code = 68960-7) [facility] HospitalHepatic Function Panel (ALB, T.PRO, BILI T, BU/BC, ALT, AST, ALK PHOS)2020-10-22 08:00:24 Test Item Value Reference Range Interpretation Comments TOTAL BILI (test code = 6707829375) 0.3 mg/dL 0.1-1.1 BILI UNCON (test code = 7256628822) 0.1 mg/dL 0.1-1.1 BILI CONJ (test code = 9597623080) 0.0 mg/dL 0.0-0.3 T PROTEIN (test code = 0832617380) 7.0 g/dL 6.3-8.2 ALBUMIN (test code = 3633930569) 3.9 g/dL 3.5-5.0 ALK PHOS (test code = 7233179532) 112 U/L 34-122 ALTv (test code = 1742-6) 292 U/L 5-35 H AST(SGOT) (test code = 4321018257) 322 U/L 13-40 H Lab Interpretation (test code = Abnormal 38381-8) [facility] HospitalEthanol [id number] 08:00:24 Test Item Value Reference Range Interpretation Comments ALCOHOL (test code = 67 mg/dL 1126820620) PAULA (test code = Toxic Greater than or PAULA) equal to 80 mg/dL. NOTE: Whole blood values are approximately 10% to 15% lower than serum and plasma. [facility] HospitalLipase [id number] 08:00:24 Test Item Value Reference Range Interpretation Comments LIPASE (test code = 1066557008) 165 U/L 0-220 Lab Interpretation (test code = Normal 86524-0) [facility] HospitalCBC with [id number] 07:55:00 Test Item Value Reference Range Interpretation Comments WBC (test code = See_Comment [Automated 8090-2) message] The sy stem which generated this result transmitted reference range : 4.30 - 11.10 10*3/?L. The reference range was not used to interpret this result as normal/abnormal . RBC (test code = See_Comment [Automated 129-8) message] The sy stem which generated this [...] RDW-SD (test code = 43.8 fL 39.0-49.9 73801-9) RDW-CV (test code = 13.2 % 12.0-15.5 788-0) PLT (test code = See_Comment [Automated 777-3) message] The sy stem which generated this result transmitted reference range : 166 - 358 10*3/ ?L. The reference r micah was not used to interpret this result as normal/abnormal . MPV (test code = 9.2 fL 9.5-12.9 L 75545-4) NRBC/100 WBC (test See_Comment [Automat ed code = 5354792724) message] The system which generated this result transmitted reference range : 0.0 - 10.0 /100 WBCs. The refer ence range was not u sed to interpret th is result as normal/abnormal . NRBC x10^3 (test code <0.01 See_Comment [Auto mated = 0246885023) message] The s ystem which generated this result transmitted reference range : 10*3/?L. The reference range was not used to interpret this result as normal/abnormal . GRAN MAT (NEUT) % 64.0 % (test code = 770-8) IMM GRAN % (test code 0.40 % = 0679773551) LYMPH % (test code = 24.3 % 736-9) MONO % (test code = 8.9 % 5905-5) EOS % (test code = 1.4 % 713-8) BASO % (test code = 1.0 % 706-2) GRAN MAT x10^3(ANC) 3.18 10*3/uL 1.88-7.09 (test code = 5567373733) IMM GRAN x10^3 (test <0.03 0.00-0.06 code = 5926034104) LYMPH x10^3 (test code 1.21 10*3/uL 1.32-3.29 L = 731-0) MONO x10^3 (test code 0.44 10*3/uL 0.33-0.92 = 742-7) EOS x10^3 (test code = 0.07 10*3/uL 0.03-0.39 711-2) BASO x10^3 (test code 0.05 10*3/uL 0.01-0.07 = 704-7) Lab Interpretation Abnormal (test code = 19280-4) [facility] 2 [id number] 18:12:05 No acute cardiopulmonary abnormality. Preliminary Report [...] reviewed this study and agree with theabove report.[facility] HospitalCREATINE [id number] 17:21:00 Test Item Value Reference Range Interpretation Comments CK (test code = 9712645616) 765 U/L 33-194 H Lab Interpretation (test code = Abnormal 39638-9) [facility] HospitalLipase [id number] 17:20:59 Test Item Value Reference Range Interpretation Comments LIPASE (test code = 6378628090) 135 U/L 0-220 Lab Interpretation (test code = Normal 38265-2) [facility] HospitalTroponin [id number] 16:25:05 Test Item Value Reference Range Interpretation Comments TROPONIN I (test 0.007 ng/mL See_Comment [Automated code = 5038530078) message] The system which generated this result [...] ? Lab Interpretation Normal (test code = 54576-8) [facility] HospitalN-TERMINAL [id number] 16:25:04 Test Item Value Reference Range Interpretation Comments NT-proBNP (test code 178 pg/mL See_Comment H [Autom ated = 9031589860) message] The system which generated this result transmitted reference range : <=125. The reference range was not used to interpret this result as normal/abnormal . PAULA (test code = PAULA) Biotin has been reported to cause a negative bias, interpret results relative to patient's use of biotin. Lab Interpretation Abnormal (test code = 02901-7) [facility] HospitalBasi Metabolic Panel (NA, K, CL, CO2, GLUCOSE, BUN, CREATININE, CA)2020-10-15 16:13:24 Test Item Value Reference Range Interpretation Comments NA (test code = 135 mmol/L 135-145 6485880689) K (test code = 4.0 mmol/L 3.5-5.0 Slight 7395140230) hemolysis CL (test code = 109 mmol/L 98-108 H 3316064137) CO2 TOTAL (test code 21 mmol/L 23-31 L = 9671553597) AGAP (test code = 2-16 5637031755) BUN (test code = 11 mg/dL 7-23 Slight 8702891854) hemolysis GLUCOSE (test code = 98 mg/dL 70-110 0366036109) CREATININE (test code 0.54 mg/dL 0.50-1.04 = 1805179790) CALCIUM (test code = 8.1 mg/dL 8.6-10.6 L 9300730289) eGFR (test code = mL/min/1.73m2 0213991681) PAULA (test code = PAULA) Association of [...] tests). Lab Interpretation Abnormal (test code = 16121-3) [facility] HospitalHepatic Function Panel (ALB, T.PRO, BILI T, BU/BC, ALT, AST, ALK PHOS)2020-10-15 16:13:24 Test Item Value Reference Range Interpretation Comments TOTAL BILI (test code = 5847854822) 0.3 mg/dL 0.1-1.1 BILI UNCON (test code = 6206851934) 0.1 mg/dL 0.1-1.1 BILI CONJ (test code = 4099276393) 0.0 mg/dL 0.0-0.3 T PROTEIN (test code = 2203103180) 6.0 g/dL 6.3-8.2 L ALBUMIN (test code = 5595855413) 3.2 g/dL 3.5-5.0 L ALK PHOS (test code = 7863365756) 59 U/L 34-122 ALTv (test code = 1742-6) 74 U/L 5-35 H AST(SGOT) (test code = 3705773523) 100 U/L 13-40 H Lab Interpretation (test code = Abnormal 42626-7) [facility] HospitalPregnancy Test, Tlwuf9721-84-88 16:12:38 Test Item Value Reference Range Interpretation Comments PREG SERUM (test code Negative = 5708628726) PAULA (test code = PAULA) Less than 10 IU/L. ?If low titer or ectopic is suspected, resubmit specimen in 48-72 hours. [facility] HospitalTroponin [id number] 14:29:39TROPONIN IComment: Possible Contaminated specimen. ?Talked to Dr Mai to reorder Troponin and BNP. This is a corrected result. ?Previous result was 0.007 ng/mL on 10/15/2020 at 0903 [facility] LABORATORY SERVICESEqual or Less than 0.034 ng/ml---Normal [...] results relative to patient's use of biotin. ?[facility] HospitalN- TERMINAL [id number] 14:28:48NT-proBNPComment: Possible Contaminated specimen. ?Talked to Dr Mai to reorder Troponin and BNP. This is a corrected result. ?Previous result was 41 pg/mL on 10/15/2020 at 0904 [facility] LABORATORY SERVICESBiotin has been reported to cause a negative bias, interpret results relative to patient's use of biotin.[facility] HospitalLipase [id number] 14:09:09LIPASEComment: Possible contamination of specimen. Dr Mai to reorder for recollection. This is a corrected result. ?Previous result was 16 U/L on 10/15/2020 at 0852 [facility] LABORATORY SERVICESUnDoctors Hospital of LaredoCREATINE [id number] 14:08:28CKComment: Possible contamination of specimen. Dr Mai to reorder for recollection. This is a corrected result. ?Previous result was 230 U/L on 10/15/2020 at 0852 [facility] LABORATORY SERVICESUnDoctors Hospital of LaredoCT HEAD WO CONTRAST 2020-10-15 13:47:51 No acute [...] clear. IMPRESSIONNo acute intracranial hemorrhage or mass effect.[facility] HospitalXR CHEST 1 [id number] 14:06:46 No acute cardiopulmonary process. Preliminary Report [...] reviewed this study and agree with theabove report.[facility] HospitalCOMP. METABOLIC PANEL ([id number])2020-10-13 11:48:17 Test Item Value Reference Range Interpretation Comments NA (test code = 137 mmol/L 135-145 9247734558) K (test code = 4.2 mmol/L 3.5-5.0 Slight 8473884629) hemolysis CL (test code = 110 mmol/L 98-108 H 6186048866) CO2 TOTAL (test code 18 mmol/L 23-31 L = 7592070598) AGAP (test code = 2-16 0569595868) BUN (test code = 13 mg/dL 7-23 Slight 1889461795) hemolysis GLUCOSE (test code = 104 mg/dL 70-110 9737454976) CREATININE (test code 0.63 mg/dL 0.50-1.04 = 1700395087) TOTAL BILI (test code 0.5 mg/dL 0.1-1.1 = 0003621776) CALCIUM (test code = 8.1 mg/dL 8.6-10.6 L 6080317736) T PROTEIN (test code 7.0 g/dL 6.3-8.2 = 3693000197) ALBUMIN (test code = 3.8 g/dL 3.5-5.0 9725729025) ALK PHOS (test code = 55 U/L 34-122 Slight 6735503329) hemolysis ALTv (test code = 49 U/L 5-35 H 1742-6) AST(SGOT) (test code 72 U/L 13-40 H Slight = 0515122890) hemolysis eGFR (test code = mL/min/1.73m2 0089684229) PAULA (test code = PAULA) Association of [...] tests). Lab Interpretation Abnormal (test code = 38986-7) [facility] HospitalDrug Screen [id number] 11:42:55 Test Item Value Reference Range Interpretation Comments AMPHET (test code = Presumptive Positive Negative A 5107194148) Cocaine Metabolite (test Negative Negative code = 9697582768) OPIATES (test code = Presumptive Positive Negative A 4307721920) THC (test code = Negative Negative 9227576658) PAULA (test code = PAULA) Urine Drug Cutoff Ranges Amphetamine: ? 1,000 ng/mLCocaine: ? 150 ng/mLOpiates: ? 300 ng/mLCannabinoids: ?50 ng/mL The results are to be used only for medical (i.e., treatment) purposes. Unconfirmed screening results must not be used for non-medical purposes (e.g., employment testing, legal testing). Lab Interpretation (test Abnormal code = 63452-0) [facility] HospitalDRUG SCREEN PANEL 2 [id number] 11:42:35 Test Item Value Reference Range Interpretation Comments AMPHET (test code = Presumptive Positive Negative A 5203101215) ANN U (test code = Negative Negative 9760206208) BENZO U (test code = Negative Negative 7660005041) Cocaine Metabolite (test Negative Negative code = 2498990938) METHADONE (test code = Negative Negative 5161240128) OPIATES (test code = Presumptive Positive Negative A 8751573202) PCP (test code = Negative Negative 6441725091) THC (test code = Negative Negative 8569294396) PAULA (test code = PAULA) Urine Drug [...] testing). Lab Interpretation (test Abnormal code = 05948-4) [facility] HospitalD-[id number] 11:32:36 Test Item Value Reference Interpretation Comments Range D-DIMER (test code = See_Comment [Autom ated 9197112572) message] The system which generated this result [...] diagnosis. Lab Interpretation Normal (test code = 41222-6) [facility] HospitalURINALYSIS2021-04-20 11:29:49 Test Item Value Reference Range Interpretation Comments APPEARANCE (test code = Clear Clear 6661547499) COLOR (test code = Straw Yellow A 9132346283) PH (test code = 4.8-8.0 5292726235) SP GRAVITY (test code = 1.003-1.030 9715588081) GLU U QUAL (test code = Normal Normal 3562340403) BLOOD (test code = Negative Negative 2186246984) KETONES (test code = Negative Negative 6375881738) PROTEIN (test code = Negative Negative 2887-8) UROBILIN (test code = Normal Normal 3693503957) BILIRUBIN (test code = Negative Negative 4197627562) NITRITE (test code = Negative Negative 6112167190) LEUK JONATHON (test code = Negative Negative 3806861233) RBC/HPF (test code = <1 See_Comment [Autom ated message] 5249266820) The system [employer] generated this result transmitted ref erence range: 0 - 3 HP F. The reference range was not used to int erpret this result as normal/abnormal . WBC/HPF (test code = <1 See_Comment [Autom ated message] 7974853551) The system [employer] generated this result transmitted ref erence range: 0 - 5 HP F. The reference range was not used to int erpret this result as normal/abnormal . BACTERIA (test code = Few Negative A 5412297453) SQ EPITH (test code = See_Comment [Auto mated message] 0526570065) The system [employer] generated this result transmitted ref erence range: <=2 HPF. The reference range was not used to int erpret this result as normal/abnormal . Lab Interpretation (test Abnormal code = 60634-6) [facility] HospitalPOCT [id number] 11:13:00 Test Item Value Reference Range Interpretation Comments POCT PREG (test code = 1605) negative On board controls acceptable with present C Line (test code = 3574) POCT PREG LOT # (test code = 3575) [id number] POCT PREG TEST DATE (test 2022-05-25 code = 3576) Lab Interpretation (test code = Normal 56020-1) [facility] HospitalTHYROID STIMULATING [id number] 11:12:54 Test Item Value Reference Range Interpretation Comments TSH (test code = See_Comment H [Automated message] 6014290604) The system [employer] generated this result transmitted ref erence range: 0.45 - 4 .70 mIU/L. The refe rence range was not u sed to interpret this result as normal/abnor mal. Lab Interpretation (test Abnormal code = 94101-3) [facility] HospitalTroponin [id number] 10:54:13 Test Item Value Reference Range Interpretation Comments TROPONIN I (test 0.013 ng/mL See_Comment [Automated code = 7042685888) message] The system which generated this result [...] ? Lab Interpretation Normal (test code = 02314-3) [facility] HospitalEthanol [id number] 10:53:52 Test Item Value Reference Range Interpretation Comments ALCOHOL (test code = <10 mg/dL 2578057482) PAULA (test code = Toxic Greater than or PAULA) equal to 80 mg/dL. NOTE: Whole blood values are approximately 10% to 15% lower than serum and plasma. [facility] with Ynxyagfiaaex2977-95-88 10:49:12 Test Item Value Reference Range Interpretation Comments WBC (test code = See_Comment [Automated message] 0490-2) The system [employer] generated this result transmitted ref erence range: 4.30 - 1 1.10 10*3/?L. The re ference range was not u sed to interpret this result as normal/abnor mal. RBC (test code = See_Comment [Automated message] 129-8) The system [employer] generated this result transmitted ref erence range: [...] RDW-SD (test code 43.8 fL 39.0-49.9 = 92621-3) RDW-CV (test code 12.9 % 12.0-15.5 = 788-0) PLT (test code = See_Comment [Automated message] 777-3) The system whic h generated this result transmitted ref erence range: 166 - 35 8 10*3/?L. The re ference range was not u sed to interpret this result as normal/abnor mal. MPV (test code = 9.5 fL 9.5-12.9 10118-2) NRBC/100 WBC (test See_Comment [Automat ed message] code = 3786876788) The syste m which generated this result transmitted ref erence range: 0.0 - 10 .0 /100 WBCs. The refer ence range was not u sed to interpret this result as normal/abnor mal. NRBC x10^3 (test <0.01 See_Comment [Automated message] code = 3873143062) The syste m which generated this result transmitted ref erence range: 10*3/?L. The reference range was not used to interpr et this result as normal/abnormal . GRAN MAT (NEUT) % 66.8 % (test code = 770-8) IMM GRAN % (test 0.30 % code = 9227511872) LYMPH % (test code 21.6 % = 736-9) MONO % (test code 9.2 % = 5905-5) EOS % (test code = 1.4 % 713-8) BASO % (test code 0.7 % = 706-2) GRAN MAT 4.73 10*3/uL 1.88-7.09 x10^3(ANC) (test code = 1399265225) IMM GRAN x10^3 <0.03 0.00-0.06 (test code = 8680344150) LYMPH x10^3 (test 1.53 10*3/uL 1.32-3.29 code = 731-0) MONO x10^3 (test 0.65 10*3/uL 0.33-0.92 code = 742-7) EOS x10^3 (test 0.10 10*3/uL 0.03-0.39 code = 711-2) BASO x10^3 (test 0.05 10*3/uL 0.01-0.07 code = 704-7) [facility] HospitalLipase Btxbu1527-35-22 10:44:47 Test Item Value Reference Range Interpretation Comments LIPASE (test code = 3013012503) 172 U/L 0-220 Lab Interpretation (test code = Normal 34755-2) [facility] HospitalProthrombin Time (PT) / [id number] 10:43:11 Test Item Value Reference Range Interpretation Comments PROTIME PATIENT (test See_Comment [Auto mated message] code = 5964-2) The system [employer] generated this result transmitted ref erence range: 10.1 - 1 2.6 Seconds. The re ference range was not u sed to interpret this result as normal/abnor mal. INR (test code = 6301-6) Nor mal INR <1.1; Warfarin Therap eutic range 2.0 to 3. 0 or 2.5 to 3.5, dep ending upon the indica tions. Lab Interpretation (test Normal code = 22371-3) [facility] HospitalaPTT2021-04-20 10:43:11 Test Item Value Reference Range Interpretation Comments APTT Patient (test code See_Comment L [Au tomated message] = 3173-2) The system [employer] generated this result transmitted ref erence range: 26 - 36 Seconds. The reference range was not used to int erpret this result as normal/abnormal . Lab Interpretation (test Abnormal code = 78593-1) [facility] HospitalCOVID-19 (ID NOW RAPID TESTING)2020-10-13 10:28:07 Test Item Value Reference Range Interpretation Comments SARS-CoV-2 Rapid ID NOW Not Detected Not Detected (test code = 10004-8) PAULA (test code = PAULA) ID NOW COVID-19 Assay is an isothermal nucleic acid amplification test intended for the qualitative detection of nucleic acid from SARS-CoV-2 viral RNA in nasopharyngeal ([employer]) specimens. It is used under Emergency Use [...] indicated. Lab Interpretation Normal (test code = 07098-6) [facility] HospitalPREGNANCY TEST, [id number] 03:54:33 Test Item Value Reference Range Interpretation Comments PREG SERUM (test code Negative = 9824937957) PAULA (test code = PAULA) Less than 10 IU/L. ?If low titer or ectopic is suspected, resubmit specimen in 48-72 hours. [facility] (NA, K, CL, CO2, GLUCOSE, BUN, CREATININE, CA)2020-09-17 03:26:58 Test Item Value Reference Range Interpretation Comments NA (test code = 135 mmol/L 135-145 6407364189) K (test code = 3.8 mmol/L 3.5-5.0 9724023276) CL (test code = 99 mmol/L 98-108 9827715122) CO2 TOTAL (test code = 24 mmol/L 23-31 9878237384) AGAP (test code = 2-16 1852001325) BUN (test code = 9 mg/dL 7-23 5444107362) GLUCOSE (test code = 100 mg/dL 70-110 9812004209) CREATININE (test code 0.74 mg/dL 0.50-1.04 = 9617681180) CALCIUM (test code = 9.1 mg/dL 8.6-10.6 0180498985) eGFR Calculation mL/min/1.73m2 (Non-) (test code = 3251841244) eGFR Calculation mL/min/1.73m2 () (test code = 9336662638) PAULA (test code = PAULA) Association of [...] or urine or abnormalities in imaging tests). [facility] HospitalHepatic Function Panel (ALB, T.PRO, BILI T, BU/BC, ALT, AST, ALK PHOS)2020-09-17 03:26:58 Test Item Value Reference Range Interpretation Comments TOTAL BILI (test code = 2822044585) 0.4 mg/dL 0.1-1.1 BILI UNCON (test code = 2051855674) 0.2 mg/dL 0.1-1.1 BILI CONJ (test code = 5162627878) 0.0 mg/dL 0.0-0.3 T PROTEIN (test code = 8889365458) 8.6 g/dL 6.3-8.2 H ALBUMIN (test code = 6962103788) 5.1 g/dL 3.5-5.0 H ALK PHOS (test code = 4425824052) 114 U/L 34-122 ALTv (test code = 1742-6) 28 U/L 5-35 AST(SGOT) (test code = 3087493860) 47 U/L 13-40 H Lab Interpretation (test code = Abnormal 27863-9) [facility] HospitalLipase Rbkol6745-69-15 03:26:58 Test Item Value Reference Range Interpretation Comments LIPASE (test code = 4127530590) 81 U/L 0-220 Lab Interpretation (test code = Normal 95329-3) [facility] with Fxcqirgwryee0868-31-67 03:13:16 Test Item Value Reference Range Interpretation [...] RDW-SD (test code = 42.8 fL 39.0-49.9 27184-0) RDW-CV (test code = 12.8 % 12.0-15.5 788-0) PLT (test code = See_Comment [Automated 777-3) message] The sy stem which generated this result transmitted reference range : 166 - 358 10*3/ ?L. The reference r micah was not used to interpret this result as normal/abnormal . MPV (test code = 8.9 fL 9.5-12.9 L 73708-8) NRBC/100 WBC (test See_Comment [Automat ed code = 6989046866) message] The system which generated this result transmitted reference range : 0.0 - 10.0 /100 WBCs. The refer ence range was not u sed to interpret th is result as normal/abnormal . NRBC x10^3 (test code <0.01 See_Comment [Auto mated = 3337464724) message] The s ystem which generated this result transmitted reference range : 10*3/?L. The reference range was not used to interpret this result as normal/abnormal . GRAN MAT (NEUT) % 44.7 % (test code = 770-8) IMM GRAN % (test code 0.50 % = 3826526456) LYMPH % (test code = 44.6 % 736-9) MONO % (test code = 8.2 % 5905-5) EOS % (test code = 0.9 % 713-8) BASO % (test code = 1.1 % 706-2) GRAN MAT x10^3(ANC) 2.84 10*3/uL 1.88-7.09 (test code = 1385022543) IMM GRAN x10^3 (test 0.03 10*3/uL 0.00-0.06 code = 9826667752) LYMPH x10^3 (test code 2.83 10*3/uL 1.32-3.29 = 731-0) MONO x10^3 (test code 0.52 10*3/uL 0.33-0.92 = 742-7) EOS x10^3 (test code = 0.06 10*3/uL 0.03-0.39 711-2) BASO x10^3 (test code 0.07 10*3/uL 0.01-0.07 = 704-7) Lab Interpretation Abnormal (test code = 70735-7) [facility] HospitalN-TERMINAL [id number]-[id number] 11:23:18 Test Item Value Reference Range Interpretation Comments NT-proBNP (test code 100 pg/mL See_Comment [Autom ated = 0822866830) message] The system which generated this result transmitted reference range : <=125. The reference range was not used to interpret this result as normal/abnormal . PAULA (test code = PAULA) Biotin has been reported to cause a negative bias, interpret results relative to patient's use of biotin. Lab Interpretation Normal (test code = 54215-8) [facility] WITH [id number] 11:03:17 Test Item Value Reference Range Interpretation [...] RDW-SD (test code = 44.5 fL 39.0-49.9 94493-5) RDW-CV (test code = 12.7 % 12.0-15.5 788-0) PLT (test code = See_Comment [Automated 777-3) message] The sy stem which generated this result transmitted reference range : 166 - 358 10*3/ ?L. The reference r micah was not used to interpret this result as normal/abnormal . MPV (test code = 10.3 fL 9.5-12.9 67534-9) NRBC/100 WBC (test See_Comment [Automat ed code = 3069690997) message] The system which generated this result transmitted reference range : 0.0 - 10.0 /100 WBCs. The refer ence range was not u sed to interpret th is result as normal/abnormal . NRBC x10^3 (test code <0.01 See_Comment [Auto mated = 3838800313) message] The s ystem which generated this result transmitted reference range : 10*3/?L. The reference range was not used to interpret this result as normal/abnormal . GRAN MAT (NEUT) % 51.5 % (test code = 770-8) IMM GRAN % (test code 0.40 % = 2001681853) LYMPH % (test code = 35.6 % 736-9) MONO % (test code = 8.2 % 5905-5) EOS % (test code = 3.1 % 713-8) BASO % (test code = 1.2 % 706-2) GRAN MAT x10^3(ANC) 3.78 10*3/uL 1.88-7.09 (test code = 8009693330) IMM GRAN x10^3 (test 0.03 10*3/uL 0.00-0.06 code = 9982834965) LYMPH x10^3 (test code 2.61 10*3/uL 1.32-3.29 = 731-0) MONO x10^3 (test code 0.60 10*3/uL 0.33-0.92 = 742-7) EOS x10^3 (test code = 0.23 10*3/uL 0.03-0.39 711-2) BASO x10^3 (test code 0.09 10*3/uL 0.01-0.07 H = 704-7) Lab Interpretation Abnormal (test code = 29465-2) [facility] acute hospitalBIJAL [id number] 10:38:33 Test Item Value Reference Range Interpretation Comments TROPONIN I (test <0.012 See_Comment [Automated code = 3918272782) message] The system which generated this result [...] ? Lab Interpretation Normal (test code = 37976-0) [facility]. METABOLIC PANEL (21989)2020-09-06 10:26:52 Test Item Value Reference Range Interpretation Comments NA (test code = 134 mmol/L 135-145 L 8438922926) K (test code = 3.9 mmol/L 3.5-5.0 3615574085) CL (test code = 100 mmol/L 98-108 6249919292) CO2 TOTAL (test code = 27 mmol/L 23-31 0322962471) AGAP (test code = 2-16 1717349757) BUN (test code = 17 mg/dL 7-23 0143382306) GLUCOSE (test code = 90 mg/dL 70-110 9276748471) CREATININE (test code = 0.65 mg/dL 0.50-1.04 1147258305) TOTAL BILI (test code = 0.4 mg/dL 0.1-1.3 3826840665) CALCIUM (test code = 8.3 mg/dL 8.6-10.6 L 8063215168) T PROTEIN (test code = 7.1 g/dL 6.3-8.2 8693805274) ALBUMIN (test code = 4.1 g/dL 3.5-5.0 3456918094) ALK PHOS (test code = 101 U/L 34-122 7242935666) ALTv (test code = 47 U/L 5-35 H 1742-6) AST(SGOT) (test code = 45 U/L 13-40 H 7895130421) eGFR Calculation mL/min/1.73m2 (Non-) (test code = 9411108205) eGFR Calculation mL/min/1.73m2 () (test code = 2042396344) PAULA (test code = PAULA) Association of [...] tests). Lab Interpretation Abnormal (test code = 24561-6) [facility], [id number] 10:26:32 Test Item Value Reference Range Interpretation Comments LIPASE (test code = 8743304100) 139 U/L 0-220 Lab Interpretation (test code = Normal 19404-6) [facility]D-[id number] 03:26:49 Test Item Value Reference Interpretation Comments Range D-DIMER (test code = <0.27 See_Comment [Autom ated 9137511455) message] The system which generated this result [...] diagnosis. Lab Interpretation Normal (test code = 76761-2) [facility] HospitalTHYROID STIMULATING [id number] 02:42:25 Test Item Value Reference Range Interpretation Comments TSH (test code = See_Comment [Automated message] 8433357673) The system [employer] generated this result transmitted ref erence range: 0.45 - 4 .70 mIU/L. The refe rence range was not u sed to interpret this result as normal/abnor mal. Lab Interpretation (test Normal code = 64109-3) [facility] HospitalN-TERMINAL [id number] 02:20:57 Test Item Value Reference Range Interpretation Comments NT-proBNP (test code 223 pg/mL See_Comment H [Autom ated = 6281752728) message] The system which generated this result transmitted reference range : <=125. The reference range was not used to interpret this result as normal/abnormal . PAULA (test code = PAULA) Biotin has been reported to cause a negative bias, interpret results relative to patient's use of biotin. Lab Interpretation Abnormal (test code = 62729-8) [facility] HospitalTroponin [id number] 01:06:21 Test Item Value Reference Range Interpretation Comments TROPONIN I (test <0.012 See_Comment [Automated code = 8656971546) message] The system which generated this result [...] ? Lab Interpretation Normal (test code = 52910-6) [facility]Hep[facility] (ALB, T.PRO, BILI T, BU/BC, ALT, AST, ALK PHOS)2020-09-02 00:56:20 Test Item Value Reference Range Interpretation Comments TOTAL BILI (test code = 5648274995) 0.5 mg/dL 0.1-1.1 BILI UNCON (test code = 2678709968) 0.3 mg/dL 0.1-1.1 BILI CONJ (test code = 6627629190) 0.0 mg/dL 0.0-0.3 T PROTEIN (test code = 2191150787) 8.1 g/dL 6.3-8.2 ALBUMIN (test code = 7274476065) 4.7 g/dL 3.5-5.0 ALK PHOS (test code = 8610142577) 109 U/L 34-122 ALTv (test code = 1742-6) 75 U/L 5-35 H AST(SGOT) (test code = 1828632581) 53 U/L 13-40 H Lab Interpretation (test code = Abnormal 60000-7) [facility] HospitalBasic [facility] (NA, K, CL, CO2, GLUCOSE, BUN, CREATININE, CA)2020-09-02 00:56:00 Test Item Value Reference Range Interpretation Comments NA (test code = 136 mmol/L 135-145 9192771406) K (test code = 3.8 mmol/L 3.5-5.0 0227049895) CL (test code = 99 mmol/L 98-108 8727656420) CO2 TOTAL (test code = 27 mmol/L 23-31 4209252862) AGAP (test code = 2-16 5696475112) BUN (test code = 4 mg/dL 7-23 L 7103968944) GLUCOSE (test code = 115 mg/dL 70-110 H 6883736748) CREATININE (test code = 0.49 mg/dL 0.50-1.04 L 8981509167) CALCIUM (test code = 9.4 mg/dL 8.6-10.6 2779861879) eGFR Calculation mL/min/1.73m2 (Non-) (test code = 7402898006) eGFR Calculation mL/min/1.73m2 () (test code = 3708294551) PAULA (test code = PAULA) Association of [...] tests). Lab Interpretation Abnormal (test code = 16021-6) [facility] HospitalLipase [id number] 00:56:00 Test Item Value Reference Range Interpretation Comments LIPASE (test code = 3191659842) 60 U/L 0-220 Lab Interpretation (test code = Normal 05617-4) [facility]COVID[facility] (ID NOW RAPID TESTING)2020-09-02 00:31:12 Test Item Value Reference Range Interpretation Comments SARS-CoV-2 Rapid ID NOW Not Detected Not Detected (test code = 87425-1) PAULA (test code = PAULA) ID NOW COVID-19 Assay is an isothermal nucleic acid amplification test intended for the qualitative detection of nucleic acid from SARS-CoV-2 viral RNA in nasopharyngeal ([employer]) specimens. It is used under Emergency Use [...] indicated. Lab Interpretation Normal (test code = 67950-5) [facility] HospitalCB with [id number] 00:21:26 Test Item Value Reference Range Interpretation Comments WBC (test code = See_Comment [Automated 2390-2) message] The sy stem which generated this result transmitted reference range : 4.30 - 11.10 10*3/?L. The reference range was not used to interpret this result as normal/abnormal . RBC (test code = See_Comment [Automated 824-8) message] The sy stem which generated this [...] RDW-SD (test code = 43.6 fL 39.0-49.9 33558-1) RDW-CV (test code = 12.9 % 12.0-15.5 788-0) PLT (test code = See_Comment H [Automated 777-3) message] The sy stem which generated this result transmitted reference range : 166 - 358 10*3/ ?L. The reference r micah was not used to interpret this result as normal/abnormal . MPV (test code = 9.4 fL 9.5-12.9 L 68857-6) NRBC/100 WBC (test See_Comment [Automat ed code = 0738939957) message] The system which generated this result transmitted reference range : 0.0 - 10.0 /100 WBCs. The refer ence range was not u sed to interpret th is result as normal/abnormal . NRBC x10^3 (test code <0.01 See_Comment [Auto mated = 4308992174) message] The s ystem which generated this result transmitted reference range : 10*3/?L. The reference range was not used to interpret this result as normal/abnormal . GRAN MAT (NEUT) % 71.0 % (test code = 770-8) IMM GRAN % (test code 0.50 % = 2280658803) LYMPH % (test code = 19.1 % 736-9) MONO % (test code = 7.6 % 5905-5) EOS % (test code = 0.7 % 713-8) BASO % (test code = 1.1 % 706-2) GRAN MAT x10^3(ANC) 6.08 10*3/uL 1.88-7.09 (test code = 8336353710) IMM GRAN x10^3 (test 0.04 10*3/uL 0.00-0.06 code = 7379734447) LYMPH x10^3 (test code 1.63 10*3/uL 1.32-3.29 = 731-0) MONO x10^3 (test code 0.65 10*3/uL 0.33-0.92 = 742-7) EOS x10^3 (test code = 0.06 10*3/uL 0.03-0.39 711-2) BASO x10^3 (test code 0.09 10*3/uL 0.01-0.07 H = 704-7) Lab Interpretation Abnormal (test code = 03219-5) [facility] (NA, K, CL, CO2, Glucose, BUN, Creatinine, CA)2020-04-12 10:56:00 Test Item Value Reference Range Interpretation Comments NA (test code = 135 mmol/L 135-145 4838572952) K (test code = 4.1 mmol/L 3.5-5 7597770203) CL (test code = 105 mmol/L 98-108 4743464906) CO2 TOTAL (test code = 28 mmol/L 23-31 6074252826) AGAP (test code = 2-16 3914395089) BUN (test code = 11 mg/dL 7-23 2301230784) GLUCOSE (test code = 95 mg/dL 70-110 0322044971) CREATININE (test code = 0.57 mg/dL 0.5-1.04 0014762012) CALCIUM (test code = 7.9 mg/dL 8.6-10.6 L 9777335574) eGFR Calculation mL/min/1.73m2 (Non-) (test code = 7262956239) eGFR Calculation mL/min/1.73m2 () (test code = 0981762996) PAULA (test code = PAULA) Association of [...] tests). Lab Interpretation Abnormal (test code = 49291-7) [facility] with [id number] 10:31:00 Test Item Value Reference Range Interpretation Comments WBC (test code = See_Comment [Automated 7790-2) message] The sy stem which generated this result transmitted reference range : 4.30 - 11.10 10*3/?L. The reference range was not used to interpret this result as normal/abnormal . RBC (test code = See_Comment L [Automated 225-8) message] The sy stem which generated this [...] RDW-SD (test code = 44.9 fL 39-49.9 02509-7) RDW-CV (test code = 13.2 % 12-15.5 788-0) PLT (test code = See_Comment [Automated 777-3) message] The sy stem which generated this result transmitted reference range : 166 - 358 10*3/ ?L. The reference r micah was not used to interpret this result as normal/abnormal . MPV (test code = 9.8 fL 9.5-12.9 99669-4) NRBC/100 WBC (test See_Comment [Automat ed code = 1618569380) message] The system which generated this result transmitted reference range : 0.0 - 10.0 /100 WBCs. The refer ence range was not u sed to interpret th is result as normal/abnormal . NRBC x10^3 (test code <0.01 See_Comment [Auto mated = 6108634516) message] The s ystem which generated this result transmitted reference range : 10*3/?L. The reference range was not used to interpret this result as normal/abnormal . GRAN MAT (NEUT) % 47.2 % (test code = 770-8) IMM GRAN % (test code 0.30 % = 3957267808) LYMPH % (test code = 40.7 % 736-9) MONO % (test code = 8.4 % 5905-5) EOS % (test code = 2.5 % 713-8) BASO % (test code = 0.9 % 706-2) GRAN MAT x10^3(ANC) 3.15 10*3/uL 1.88-7.09 (test code = 3940555972) IMM GRAN x10^3 (test <0.03 0-0.06 code = 4296012045) LYMPH x10^3 (test code 2.72 10*3/uL 1.32-3.29 = 731-0) MONO x10^3 (test code 0.56 10*3/uL 0.33-0.92 = 742-7) EOS x10^3 (test code = 0.17 10*3/uL 0.03-0.39 711-2) BASO x10^3 (test code 0.06 10*3/uL 0.01-0.07 = 704-7) Lab Interpretation Abnormal (test code = 17800-0) [facility]XR FOREARM 2 VW [id number] 21:32:56 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 [...] with no effusionidentified.IMPRESSIONElbow joint osteoarthrosis.No acute fractures. [facility]XR HAND 3+ VW [id number] 21:31:56 No fracture or dislocation identified.EXAM: XR HAND 3+ VW LEFT HISTORY: trauma, ttp just proximal to wrist COMPARISON: None FINDINGS: Imaging of the hand demonstrates maintenance of alignment. No fractures areseen. Joint spaces are preserved. [facility], [facility]11/2020 4:33 PM CDTEXAM:XR HAND 3+ VW LEFTHISTORY:trauma, ttp just proximal to wrist COMPARISON:NoneFINDINGS: Imaging of the hand demonstrates maintenance of alignment. No fractures areseen. Joint spaces are preserved.IMPRESSIONNo fracture or dislocation identified. [facility] [id number] 21:30:19 No acute bony abnormality is present. EXAM: XR WRIST 3+ VW LEFT HISTORY: trauma ttp proximal to wrist COMPARISON: None FINDINGS: Imaging of the wrist demonstrates maintenance of alignment. Joint spacesare preserved. The soft tissues are within normal limits. [facility] - 04/11/2020 4:31 PM CDTEXAM:XR WRIST 3+ VW LEFTHISTORY:trauma ttp proximal to wrist COMPARISON:NoneFINDINGS: Im aging of the wrist demonstrates maintenance of alignment. Joint spacesare preserved. The soft tissues are within normal limits.IMPRESSIONNo acute bony abnormality is present.[facility] LEFT 2020-04-11 15:00:43 No acute bony abnormality. Preliminary Report Dictated by Resident: Chaka Lara I, Fortino aVsquez MD., have reviewed this study and agree [...] reviewed this study and agree with the abovereport.[facility] ANKLE 3+ VW [id number] 15:00:43 No acute bony abnormality. Preliminary Report [...] ankle mortise is anatomic. Minimal forefoot swelling. [facility], [facility] - 04/11/2020 10:01 AM [...] reviewed this study and agree with the abovereport.[facility]XR TIBIA FIBULA 2 VW LEFT 2020-04-11 15:00:43 [...] reviewed this study and agree with the abovereport.[facility] HospitalCT TRAUMA THORAX W CONTRAST 2020-04-11 14:32:46 Wedge [...] reviewed this study and agree with the abovereport.[facility] HospitalCT TRAUMA ABDOMEN PELVIS W [id number] 14:32:46 Wedge compression deformity of T12, discussed [...] is identified. No pelvic fracture is identified. [facility], Radiant Results [facility] User -04/11/2020 9:33 AM [...] reviewed this study and agree with the abovereport.[facility] HospitalCT TRAUMA HEAD WO [id number] 13:39:41Addendum by Macarena Paredes MD on 04/11/2020 [...] reviewed this study and agree with theabove report.[facility]CT TRAUMA CERVICAL SPINE WO [id number] 13:39:41Addendum by Macarena Paredes MD on 04/11/2020 [...] reviewed this study and agree with theabove report.[facility]CT TRA[facility]MA THORACIC SPINE WO [id number] 13:39:41Addendum by Macarena Paredes MD on 04/11/2020 [...] reviewed this study and agree with theabove report.[facility]CT [facility] LUMBAR SPINE WO [id number] 13:39:41Addendum by Macarena Paredes MD on 04/11/2020 [...] reviewed this study and agree with theabove report.[facility] HospitalType and Screen - The Type and Screen expires at midnight on the 3rd day after it was drawn. A current Type and Screen is required when RBCs are requested. For all other blood products, a Type and Screen performed during the current hospitalizati...2020-04-11 13:14:02 Test Item Value Reference Range Interpretation Comments ABO & RH (test code A POSITIVE Performe d at [facility] = 20) Laboratory [facility] [place] [address] s [id number] Free: [phone] A No. [id number] IAT (test code = Negative Performed a t [facility] 1185) Laboratory [facility] [address] [place] [address] s [id number] Free: [phone] A No. [id number] [facility] HospitalBasic Metabolic Panel (NA, K, CL, CO2, GLUCOSE, BUN, CREATININE, CA)2020-04-11 12:45:00 Test Item Value Reference Range Interpretation Comments NA (test code = 136 mmol/L 135-145 1698802905) K (test code = 4.7 mmol/L 3.5-5 Slight hemoly sis 4005450178) CL (test code = 102 mmol/L 98-108 9935644324) CO2 TOTAL (test 25 mmol/L 23-31 code = 4174083467) AGAP (test code = 2-16 5771169224) BUN (test code = 14 mg/dL 7-23 Slight hemo lysis 2309186648) GLUCOSE (test code 99 mg/dL 70-110 = 5921575082) CREATININE (test 0.85 mg/dL 0.5-1.04 code = 3309686202) CALCIUM (test code 9.0 mg/dL 8.6-10.6 = 7379163797) eGFR Calculation mL/min/1.73m2 (Non-) (test code = 9044290937) eGFR Calculation mL/min/1.73m2 () (test code = 7630936909) PAULA (test code = Association of PAULA) [...] or urine or abnormalities in imaging tests). [facility] HospitalProthrombin Time / [id number] 12:41:00 Test Item Value Reference Range Interpretation Comments PROTIME PATIENT (test See_Comment [Auto mated message] code = 5964-2) The system [employer] generated this result transmitted ref erence range: 10.1 - 1 2.6 Seconds. The re ference range was not u sed to interpret this result as normal/abnor mal. INR (test code = 6301-6) Nor mal INR <1.1; Warfarin Therap eutic range 2.0 to 3. 0 or 2.5 to 3.5, dep ending upon the indica tions. Lab Interpretation (test Normal code = 62002-4) [facility] HospitalaPTT2020-10-17 12:41:00 Test Item Value Reference Range Interpretation Comments APTT Patient (test code See_Comment L [Au tomated message] = 3173-2) The system [employer] generated this result transmitted ref erence range: 26 - 36 Seconds. The reference range was not used to int erpret this result as normal/abnormal . Lab Interpretation (test Abnormal code = 33977-7) [facility] HospitalProfile / [id number] 12:31:00 Test Item Value Reference Range Interpretation Comments WBC (test code = 6690-2) See_Comment H [A utomated message] The system [employer] generated this result transmit bhaskar reference range : 4.30 - 11.10 10*3/?L. The reference range was not used to interpret this result as normal/abnormal . RBC (test code = 789-8) See_Comment [Au tomated message] The system [employer] generated this result transmit bhaskar reference range [...] 777-3) See_Comment [Au tomated message] The system [employer] generated this result transmit bhaskar reference range : 166 - 358 10*3/?L. The reference range was not used to interpret this result as normal/abnormal . MPV (test code = 10.0 fL 9.5-12.9 02289-5) RDW-CV (test code = 12.9 % 12-15.5 788-0) RDW-SD (test code = 43.6 fL 39-49.9 68515-2) NRBC x10^3 (test code = <0.01 See_Comment [Au tomated message] 1724498225) The system [employer] generated this result transmit bhaskar reference range : 10*3/?L. The reference range was not used to interpret this result as normal/abnormal . NRBC/100 WBC (test code See_Comment [Au tomated message] = 7765569582) The system [employer] generated this result transmit bhaskar reference range : 0.0 - 10.0 /100 WBC s. The reference r micah was not used to interpret this result as normal/abnormal . IPF % (test code = 3139719391) Lab Interpretation (test Abnormal code = 76565-2) [facility] [id number] 02:32:00 Test Item Value Reference Range Interpretation Comments TROPONIN I (test 0.013 ng/mL See_Comment [Automated code = 6583193098) message] The system which generated this result [...] ? Lab Interpretation Normal (test code = 92695-6) [facility] - DRUG SCREEN [id number] 05:48:00 Test Item Value Reference Range Interpretation Comments BENZO U (test code = Presumptive Positive Negative A 5552996061) ANN U (test code = Negative Negative 0012762154) AMPHET (test code = Presumptive Positive Negative A 4126482720) THC (test code = Negative Negative 9916093862) METHADONE (test code = Negative Negative 3394903026) Meth U (test code = Presumptive Positive Negative A 0800119602) OPIATES (test code = Negative Negative 2277692729) Cocaine Metabolite (test Negative Negative code = 4838551668) PROPOXY (test code = Negative Negative 9087557862) Tric U (test code = Negative Negative 6621560090) PCP (test code = Negative Negative 5670243962) OXYCOD (test code = Negative Negative 4377892408) PAULA (test code = PAULA) Urine Drug [...] testing). Lab Interpretation (test Abnormal code = 44026-9) [facility]XR CHEST 1 [id number] 04:51:01Impression: No acute cardiopulmonary changes. Preliminary Report [...] reviewed this study and agree withthe above report.[facility] HospitalTROPONIN [id number] 04:48:00 Test Item Value Reference Range Interpretation Comments TROPONIN I (test 0.018 ng/mL See_Comment [Automated code = 7131595044) message] The system which generated this result [...] ? Lab Interpretation Normal (test code = 88456-7) [facility] HospitalN-TERMINAL [id number] 04:45:00 Test Item Value Reference Range Interpretation Comments NT-proBNP (test code 309 pg/mL See_Comment H [Autom ated = 0617037717) message] The system which generated this result transmitted reference range : <=125. The reference range was not used to interpret this result as normal/abnormal . PAULA (test code = PAULA) Biotin has been reported to cause a negative bias, interpret results relative to patient's use of biotin. Lab Interpretation Abnormal (test code = 31490-5) [facility] HospitalD-[id number] 04:43:00 Test Item Value Reference Interpretation Comments Range D-DIMER (test code = <0.27 See_Comment [Autom ated 2185072923) message] The system which generated this result [...] diagnosis. Lab Interpretation Normal (test code = 69445-2) [facility] HospitalCOVID-19 (ID NOW RAPID TESTING)2020-04-10 04:42:00 Test Item Value Reference Range Interpretation Comments SARS-CoV-2 Rapid ID NOW Not Detected Not Detected (test code = 76189-6) PAULA (test code = PAULA) ID NOW COVID-19 Assay is an isothermal nucleic acid amplification test intended for the qualitative detection of nucleic acid from SARS-CoV-2 viral RNA in nasopharyngeal ([employer]) specimens. It is used under Emergency Use [...] indicated. Lab Interpretation Normal (test code = 91934-8) [facility] HospitalMAGNESIUM2020-10-16 04:37:00 Test Item Value Reference Range Interpretation Comments MAGNESIUM (test code = 8199352916) 1.7 mg/dL 1.7-2.4 Lab Interpretation (test code = Normal 51914-1) [facility] HospitalCOMP. METABOLIC PANEL (38356)2020-04-10 04:36:00 Test Item Value Reference Range Interpretation Comments NA (test code = 135 mmol/L 135-145 3090124967) K (test code = 3.4 mmol/L 3.5-5 L 9837480903) CL (test code = 99 mmol/L 98-108 2317597225) CO2 TOTAL (test code = 24 mmol/L 23-31 4874522671) AGAP (test code = 2-16 3767553365) BUN (test code = 8 mg/dL 7-23 7184718135) GLUCOSE (test code = 119 mg/dL 70-110 H 1571787487) CREATININE (test code = 0.71 mg/dL 0.5-1.04 1225979176) TOTAL BILI (test code = 0.5 mg/dL 0.1-1.2 0230246226) CALCIUM (test code = 10.9 mg/dL 8.6-10.6 H 8839192086) T PROTEIN (test code = 8.1 g/dL 6.3-8.2 6635344092) ALBUMIN (test code = 4.4 g/dL 3.5-5 8937057067) ALK PHOS (test code = 85 U/L 34-122 5316609401) ALTv (test code = 51 U/L 5-35 H 1742-6) AST(SGOT) (test code = 42 U/L 13-40 H 0573681258) eGFR Calculation mL/min/1.73m2 (Non-) (test code = 7065800953) eGFR Calculation mL/min/1.73m2 () (test code = 6786937671) PAULA (test code = PAULA) Association of [...] tests). Lab Interpretation Abnormal (test code = 13242-1) [facility] HospitalLIPASE2020-10-16 04:36:00 Test Item Value Reference Range Interpretation Comments LIPASE (test code = 2319545921) 193 U/L 0-220 Lab Interpretation (test code = Normal 25704-3) [facility] WITH [id number] 04:22:00 Test Item Value Reference Range Interpretation [...] RDW-SD (test code = 41.7 fL 39-49.9 07636-0) RDW-CV (test code = 12.5 % 12-15.5 788-0) PLT (test code = See_Comment [Automated 777-3) message] The sy stem which generated this result transmitted reference range : 166 - 358 10*3/ ?L. The reference r micah was not used to interpret this result as normal/abnormal . MPV (test code = 9.5 fL 9.5-12.9 62939-0) NRBC/100 WBC (test See_Comment [Automat ed code = 7360541939) message] The system which generated this result transmitted reference range : 0.0 - 10.0 /100 WBCs. The refer ence range was not u sed to interpret th is result as normal/abnormal . NRBC x10^3 (test code <0.01 See_Comment [Auto mated = [id number]) message] The s ystem which generated this result transmitted reference range : 10*3/?L. The reference range was not used to interpret this result as normal/abnormal . GRAN MAT (NEUT) % 67.8 % (test code = 770-8) IMM GRAN % (test code 0.50 % = 3787510113) LYMPH % (test code = 24.0 % 736-9) MONO % (test code = 6.6 % 5905-5) EOS % (test code = 0.6 % 713-8) BASO % (test code = 0.5 % 706-2) GRAN MAT x10^3(ANC) 7.32 10*3/uL 1.88-7.09 H (test code = 7016013182) IMM GRAN x10^3 (test 0.05 10*3/uL 0-0.06 code = 2801013477) LYMPH x10^3 (test code 2.58 10*3/uL 1.32-3.29 = 731-0) MONO x10^3 (test code 0.71 10*3/uL 0.33-0.92 = 742-7) EOS x10^3 (test code = 0.06 10*3/uL 0.03-0.39 711-2) BASO x10^3 (test code 0.05 10*3/uL 0.01-0.07 = 704-7) Lab Interpretation Abnormal (test code = 30758-7) [facility]. METABOLIC PANEL ([id number])2020-02-25 19:07:00 Test Item Value Reference Range Interpretation Comments NA (test code = 135 mmol/L 135-145 4843300505) K (test code = 3.7 mmol/L 3.5-5 1906093592) CL (test code = 106 mmol/L 98-108 7806591731) CO2 TOTAL (test code = 21 mmol/L 23-31 L 9032588233) AGAP (test code = 2-16 9817753504) BUN (test code = 9 mg/dL 7-23 7567958751) GLUCOSE (test code = 116 mg/dL 70-110 H 8424703303) CREATININE (test code = 0.57 mg/dL 0.5-1.04 6743802629) TOTAL BILI (test code = 0.7 mg/dL 0.1-1.0 0562054987) CALCIUM (test code = 9.4 mg/dL 8.6-10.6 4740870250) T PROTEIN (test code = 8.2 g/dL 6.3-8.2 2946920000) ALBUMIN (test code = 4.6 g/dL 3.5-5 0262583871) ALK PHOS (test code = 116 U/L 34-122 5294153248) ALTv (test code = 67 U/L 5-35 H 1742-6) AST(SGOT) (test code = 70 U/L 13-40 H 0045435194) eGFR Calculation mL/min/1.73m2 (Non-) (test code = 0398046039) eGFR Calculation mL/min/1.73m2 () (test code = 5062287719) PAULA (test code = PAULA) Association of [...] tests). Lab Interpretation Abnormal (test code = 20721-4) [facility] WITH [id number] 18:51:00 Test Item Value Reference Range Interpretation Comments WBC (test code = See_Comment [Automated message] 6690-2) The system [employer] generated this result transmitted ref erence range: 4.30 - 1 1.10 10*3/?L. The re ference range was not u sed to interpret this result as normal/abnor mal. RBC (test code = See_Comment [Automated message] 939-8) The system [employer] generated this result transmitted ref erence range: [...] RDW-SD (test code 41.6 fL 39-49.9 = 84278-1) RDW-CV (test code 12.6 % 12-15.5 = 788-0) PLT (test code = See_Comment [Automated message] 777-3) The system [employer] generated this result transmitted ref erence range: 166 - 35 8 10*3/?L. The re ference range was not u sed to interpret this result as normal/abnor mal. MPV (test code = 10.0 fL 9.5-12.9 70516-9) NRBC/100 WBC (test See_Comment [Automat ed message] code = 4363998143) The syste m which generated this result transmitted ref erence range: 0.0 - 10 .0 /100 WBCs. The refer ence range was not u sed to interpret this result as normal/abnor mal. NRBC x10^3 (test <0.01 See_Comment [Automated message] code = 9943821447) The syste m which generated this result transmitted ref erence range: 10*3/?L. The reference range was not used to interpr et this result as normal/abnormal . GRAN MAT (NEUT) % 63.1 % (test code = 770-8) IMM GRAN % (test 0.40 % code = 4673353193) LYMPH % (test code 27.0 % = 736-9) MONO % (test code 8.0 % = 5905-5) EOS % (test code = 0.6 % 713-8) BASO % (test code 0.9 % = 706-2) GRAN MAT 5.02 10*3/uL 1.88-7.09 x10^3(ANC) (test code = 4588161054) IMM GRAN x10^3 0.03 10*3/uL 0-0.06 (test code = 2579646601) LYMPH x10^3 (test 2.15 10*3/uL 1.32-3.29 code = 731-0) MONO x10^3 (test 0.64 10*3/uL 0.33-0.92 code = 742-7) EOS x10^3 (test 0.05 10*3/uL 0.03-0.39 code = 711-2) BASO x10^3 (test 0.07 10*3/uL 0.01-0.07 code = 704-7) [facility]/[id number] 18:17:32NPO 4 hours. Do not withhold medsProcedure: [...] PMDictated By: MIGUEL GILMANDate: 08/22/2019 18:11[facility] , [id number] 17:09:00 Test Item Value Reference Range Interpretation Comments (Urine) (test code = Negative PREGU) [facility] URINALYSIS WITHOUT [id number] 17:08:00 Test Item Value Reference Range Interpretation Comments Color (test code = UCOLR) Light yellow Lt. Yellow A Clarity (test code = UCLAR) Clear Glucose (test code = UGLUC) Negative Negative N Bilirubin (test code = UBILI) Negative Negative N Ketones (test code = UKET) Negative Negative N Specific [place] (test code = 1.015 1.005-1.030 A USPGR) Blood (test code = UBLD) Negative Negative N PH (test code = UPH) 5.5 4.5-8.0 A Protein (test code = UPROT) Negative Negative N Urobilinogen (test code = U 0.2 >0.2 N UROB) Nitrite (test code = UNITR) Negative Negative N Leukocyte Esterase (test code = Negative Negative N ULEUK) [facility] 16:39[facility]00 Test Item Value Reference Range Interpretation [...] ( 4 - SerumAlbumin)] EGFR if >60 Serbian (test code mL/min/1.73m\\ = EGFRAA) S\\2 EGFR if Non- >60 Estimate d Glomerular Serbian (test code mL/min/1.73m\\ Filtrat ion Rate (eGFR) [...] and management of c hronic kidney failure. [facility]gut[facility]-[id number] 16:39:00 Test Item Value Reference Range Interpretation Comments Lipase (test code = LIPA) 178 U/L 73-393 [facility] WITH AUTO [id number] 16:16:00 Test Item Value Reference Range Interpretation [...] (test code = IG%) 0.4 % 0.0-0.4 [facility]XR ELBOW [facility] 3 [id number] 17:59:10Procedure: XR ELBOW MIN 3 VIEWSOrder Date: 08/19/2019 2:54 PMOrdering Provider: FIONA Vincentinical Indication: [id number]: Pain of left elbow jointComparison: NoneFINDINGS:There is no fracture or dislocation.Osteoarthrosis of the left elbow, particularly at the radial articular surface.No lytic or sclerotic lesions.No joint effusion.No subcutaneous gas.IMPRESSION:1. No fracture or dislocation.2. Osteoarthrosis of the left elbow.3. No other significant findings.This final report was electronically signed by Dr Emile Jackson MD 08/19/20195:52 PMDictated By: EMILE JACKSONDate: 08/19/201917:52 [facility] PELVIS W [id number] 01:59:29 No acute intra- abdominal process. 3.2 [...] reviewed this study and agree with the abovereport.[facility], Urine 2019-07-13 00:29:00 Test Item Value Reference Range Interpretation Comments POCT PREG (test code = 1605) NEGATIVE Lab Interpretation (test code = Normal 39140-1) [facility]inalysis2020-[facility] 23:44:00 Test Item Value Reference Range Interpretation Comments APPEARANCE (test code = Clear Clear 7126651226) COLOR (test code = Straw Yellow A 2260921718) PH (test code = 4.8-8.0 5869255945) SP GRAVITY (test code = 1.003-1.030 2609935128) GLU U QUAL (test code = Normal Normal 0527460200) BLOOD (test code = Negative Negative 5341254719) KETONES (test code = Negative Negative 8057402113) PROTEIN (test code = Negative Negative 2887-8) UROBILIN (test code = Normal Normal 8518393461) BILIRUBIN (test code = Negative Negative 3271261239) NITRITE (test code = Negative Negative 5496393386) LEUK JONATHON (test code = Negative Negative 0823029107) RBC/HPF (test code = See_Comment [Autom ated message] 5903593198) The system [employer] generated this result transmitted ref erence range: 0 - 3 HP F. The reference range was not used to int erpret this result as normal/abnormal . WBC/HPF (test code = See_Comment [Autom ated message] 7021057325) The system [employer] generated this result transmitted ref erence range: 0 - 5 HP F. The reference range was not used to int erpret this result as normal/abnormal . BACTERIA (test code = Negative Negative 6849022702) SQ EPITH (test code = <1 See_Comment [Auto mated message] 9643055703) The system [employer] generated this result transmitted ref erence range: <=2 HPF. The reference range was not used to int erpret this result as normal/abnormal . Lab Interpretation (test Abnormal code = 83739-7) [facility]. METABOLIC PANEL ([id number])2019-07-12 23:30:00 Test Item Value Reference Range Interpretation Comments NA (test code = 141 mmol/L 135-145 1579414438) K (test code = 3.5 mmol/L 3.5-5 6535887759) CL (test code = 105 mmol/L 98-108 8494458935) CO2 TOTAL (test code = 27 mmol/L 23-31 4380551633) AGAP (test code = 2-16 7028954464) BUN (test code = 9 mg/dL 7-23 4659063885) GLUCOSE (test code = 80 mg/dL 70-110 0927371138) CREATININE (test code = 0.50 mg/dL 0.5-1.04 3447213602) TOTAL BILI (test code = 0.4 mg/dL 0.1-1.7 1989975576) CALCIUM (test code = 8.7 mg/dL 8.6-10.6 9737854559) T PROTEIN (test code = 7.4 g/dL 6.3-8.2 9416734053) ALBUMIN (test code = 4.2 g/dL 3.5-5 8643656286) ALK PHOS (test code = 90 U/L 34-122 3459910656) ALTv (test code = 157 U/L 5-35 H 1742-6) AST(SGOT) (test code = 151 U/L 13-40 H 4863536037) eGFR Calculation mL/min/1.73m2 (Non-) (test code = 1778467763) eGFR Calculation mL/min/1.73m2 () (test code = 5641057752) PAULA (test code = PAULA) Association of [...] tests). Lab Interpretation Abnormal (test code = 87003-0) [facility] HospitalLipase [id number] 23:30:00 Test Item Value Reference Range Interpretation Comments LIPASE (test code = 4472778918) 86 U/L 0-220 Lab Interpretation (test code = Normal 40112-9) [facility] WITH [id number] 23:16:00 Test Item Value Reference Range Interpretation Comments WBC (test code = See_Comment [Automated 4406-2) message] The sy stem which generated this result transmitted reference range : 4.30 - 11.10 10*3/?L. The reference range was not used to interpret this result as normal/abnormal . RBC (test code = See_Comment [Automated 438-8) message] The sy stem which generated this [...] RDW-SD (test code = 45.1 fL 39-49.9 77288-1) RDW-CV (test code = 13.3 % 12-15.5 788-0) PLT (test code = See_Comment [Automated 777-3) message] The sy stem which generated this result transmitted reference range : 166 - 358 10*3/ ?L. The reference r micah was not used to interpret this result as normal/abnormal . MPV (test code = 9.3 fL 9.5-12.9 L 56523-3) NRBC/100 WBC (test See_Comment [Automat ed code = 6642173294) message] The system which generated this result transmitted reference range : 0.0 - 10.0 /100 WBCs. The refer ence range was not u sed to interpret th is result as normal/abnormal . NRBC x10^3 (test code <0.01 See_Comment [Auto mated = 2477900556) message] The s ystem which generated this result transmitted reference range : 10*3/?L. The reference range was not used to interpret this result as normal/abnormal . GRAN MAT (NEUT) % 52.8 % (test code = 770-8) IMM GRAN % (test code 0.20 % = 9817695784) LYMPH % (test code = 36.2 % 736-9) MONO % (test code = 7.3 % 5905-5) EOS % (test code = 2.4 % 713-8) BASO % (test code = 1.1 % 706-2) GRAN MAT x10^3(ANC) 2.47 10*3/uL 1.88-7.09 (test code = 0181576672) IMM GRAN x10^3 (test <0.03 0-0.06 code = 9294761319) LYMPH x10^3 (test code 1.69 10*3/uL 1.32-3.29 = 731-0) MONO x10^3 (test code 0.34 10*3/uL 0.33-0.92 = 742-7) EOS x10^3 (test code = 0.11 10*3/uL 0.03-0.39 711-2) BASO x10^3 (test code 0.05 10*3/uL 0.01-0.07 = 704-7) Lab Interpretation Abnormal (test code = 77326-7) [facility]XR [facility] 1 [id number] 16:58:56* * * * * * * * ORIGINAL REPORT * * * * * * * *EXAM: XR CHEST 1 VW HISTORY: Hx of cardiomegaly and angina, recent ED visit for CP, states thather heart is? COMPARISON: None. FINDINGS: The heart and great vessels are normal and the lungs are well expanded andclear.[facility], Radiant Results Inft User - 03/06/2019 11:59 AM CDT* * * * * * * * ORIGINAL REPORT * * * * * * * *EXAM: XR CHEST 1 VWHISTORY: Hx of cardiomegaly and angina, recent ED visit for CP, states thather heart is COMPARISON: None.FINDINGS:Theheart and great vessels are normal and the lungs are well expanded andclear.[facility]
--- NOTE | 2022-07-14 14:30 | RAD REPORT ---
EXAM DESCRIPTION: RAD - Chest Single View - 07/14/2022 2:23 pm CLINICAL HISTORY: CHEST PAIN Chest pain. COMPARISON: Chest Single View dated 09/24/2021; Chest Single View dated 08/29/2021; Chest Single View da bhaskar 03/16/2021; Chest Single View dated 02/06/2021 FINDINGS: Portable technique limits examination quality. The lungs are grossly clear. The heart is normal in size. No displaced fractures. IMPRESSION: No acute intrathoracic process suspected.
[2022-07-14 14:31] LABS: Absolute Lymphocytes (CBC) 1.5 K/uL (0.7-4.9); Hematocrit 44.3 % (36.0-45.0); Lymphocytes % 17.4 % (15.3-44.8); MPV 7.8 fL (7.6-11.3); RBC Red Blood Cell Count 5.03 M/uL (3.86-4.86)
[2022-07-14] MEDS ORDERED: ONDANSETRON 4 MG/2 ML VIAL ONE (14:42)
[2022-07-14] MEDS ORDERED: MORPHINE 4 MG/ML SYR ONE (14:42)
[2022-07-14 14:48] LABS: Magnesium 2.3 mg/dL (1.6-2.4); Potassium 3.6 mmol/L (3.5-5.1); Troponin High Sensitivity 13.5 pg/mL (<58.9)
[2022-07-14] MEDS ORDERED: MEPERIDINE HCL 25 MG/ML SYR ONE (15:29)
--- NOTE | 2022-07-14 18:09 | EDPHYS ---
Physician Documentation [facility] Name: Denise Wick Age: 42 yrs Sex: Female : 1980 Arrival Date: 07/14/2022 Time: 13:22 Bed 2 Private MD: ED Physician Lowell Kay HPI: 07/14 16:51 This 42 yrs old Female presents to ER via EMS with complaints of Chest Pain. kdr 16:51 Patient reports that she has been having chest pain that started last night while she kdr was in bed. Patient also reports nausea and vomiting. She additionally has had a headache that began just prior to arrival. Her blood pressure is noted to be elevated 163/102 and a heart rate of 125 130, sinus tach. Patient was given aspirin 324 mg by EMS. Patient was transferred to the ED by EMS. Onset: The symptoms/episode began/occurred last night. Severity of symptoms: At their worst the symptoms were mild in the emergency department the symptoms are unchanged. The patient has not experienced similar symptoms in the past. The patient has not recently seen a physician. Historical: - Allergies: 13:29 Codeine; ph 13:29 PENICILLINS; ph 13:29 Toradol; ph 13:29 Tramadol HCl; ph - PMHx: 13:29 Angina; Anxiety; Bipolar disorder; Hypertension; Hypothyroidism; ph - PSHx: 13:29 section; Ligation of fallopian tube; ph - Immunization history:: Adult Immunizations unknown. - Social history:: Smoking status: . ROS: 16:51 Constitutional: Negative for fever, chills, and weight loss, Eyes: Negative for injury, kdr pain, redness, and discharge, Neck: Negative for injury, pain, and swelling, Respiratory: Negative for shortness of breath, cough, wheezing, and pleuritic chest pain, Abdomen/GI: Negative for abdominal pain, nausea, vomiting, diarrhea, and constipation, Back: Negative for injury and pain, : Negative for injury, bleeding, discharge, and swelling, MS/Extremity: Negative for injury and deformity, Skin: Negative for injury, rash, and discoloration, Neuro: Negative for headache, weakness, numbness, tingling, and seizure activity. Psych: Negative for depression, anxiety, suicide ideation, homicidal ideation, and hallucinations, Allergy/Immunology: Negative for hives, rash, and allergies, Endocrine: Negative for neck swelling, polydipsia, polyuria, polyphagia, and marked weight changes, Hematologic/Lymphatic: Negative for swollen nodes, abnormal bleeding, and unusual bruising. 16:51 Cardiovascular: Positive for chest pain, Negative for edema, orthopnea, palpitations, paroxysmal nocturnal dyspnea. Exam: 16:51 Constitutional: This is a well developed, well nourished patient who is awake, alert, kdr and in no acute distress. Head/Face: Normocephalic, atraumatic. Eyes: Pupils equal round and reactive to light, extra-ocular motions intact. Lids and lashes normal. Conjunctiva and sclera are non-icteric and not injected. Cornea within normal limits. Periorbital areas with no swelling, redness, or edema. Neck: Trachea midline, no thyromegaly or masses palpated, and no cervical lymphadenopathy. Supple, full range of motion without nuchal rigidity, or vertebral point tenderness. No Meningismus. Chest/axilla: Normal chest wall appearance and motion. Nontender with no deformity. No lesions are appreciated. Cardiovascular: Regular rate and rhythm with a normal S1 and S2. No gallops, murmurs, or rubs. Normal PMI, no JVD. No pulse deficits. Respiratory: Lungs have equal breath sounds bilaterally, clear to auscultation and percussion. No rales, rhonchi or wheezes noted. No increased work of breathing, no retractions or nasal flaring. Abdomen/GI: Soft, non-tender, with normal bowel sounds. No distension or tympany. No guarding or rebound. No evidence of tenderness throughout. Back: No spinal tenderness. No costovertebral tenderness. Full range of motion. Skin: Warm, dry with normal turgor. Normal color with no rashes, no lesions, and no evidence of cellulitis. MS/ Extremity: Pulses equal, no cyanosis. Neurovascular intact. Full, normal range of motion. Neuro: Awake and alert, GCS 15, oriented to person, place, time, and situation. Cranial nerves II-XII grossly intact. Motor strength 5/5 in all extremities. Sensory grossly intact. Cerebellar exam normal. Normal gait. Psych: Awake, alert, with orientation to person, place and time. Behavior, mood, and affect are within normal limits. Vital Signs: 13:25 BP 158 / 95; Pulse 94; Resp 18; Temp 97.7; Pulse Ox 100% on R/A; Weight 90.72 kg; ph Height 5 ft. 7 in. (170.18 cm); 14:34 BP 159 / 91; Pulse 91; Resp 18; Pulse Ox 100% on R/A; ph 15:54 BP 123 / 83; Pulse 85; Resp 18; Pulse Ox 100% on R/A; ph 16:50 BP 121 / 80; Pulse 85; Resp 18; Pulse Ox 100% on R/A; ph 18:21 BP 123 / 78; Pulse 84; Resp 18; Temp 97.5; Pulse Ox 99% on R/A; ph 13:25 Body Mass Index 31.32 (90.72 kg, 170.18 cm) ph MDM: 16:51 Data reviewed: vital signs, nurses notes, lab test result(s), radiologic studies. kdr 18:08 Patient medically screened. kdr 07/14 13:29 Order name: Basic Metabolic Panel; Complete Time: 15:26 [facility] 07/14 13:29 Order name: CBC with Diff; Complete Time: 15:26 kdr 07/14 13:29 Order name: Magnesium; Complete Time: 15:26 kdr 07/14 13:29 Order name: NT PRO-BNP; Complete Time: 15:26 kdr 07/14 13:29 Order name: Troponin HS; Complete Time: 15:26 [facility] 07/14 15:26 Order name: Troponin High Sensitivity: Repeat 2 hours after initial draw ; Complete kdr Time: 17:28 07/14 13:29 Order name: XRAY Chest (1 view); Complete Time: 15:26 kdr 07/14 13:29 Order name: EKG; Complete Time: 13:30 kdr 07/14 13:29 Order name: Cardiac monitoring; Complete Time: 14:33 kdr 07/14 13:29 Order name: EKG - Nurse/Tech; Complete Time: 14:33 kdr 07/14 13:29 Order name: IV Saline Lock; Complete Time: 14:33 kdr 07/14 13:29 Order name: Labs collected and sent; Complete Time: 14:33 kdr 07/14 13:29 Order name: O2 Per Protocol; Complete Time: 14:33 kdr 07/14 13:29 Order name: O2 Sat Monitoring; Complete Time: 14:33 kdr Administered Medications: 14:43 Drug: Zofran (Ondansetron) 4 mg Route: IVP; Site: right antecubital; ph 15:46 Follow up: Response: No adverse reaction ph 14:45 Drug: morphine 4 mg Route: IVP; Infused Over: 4 mins; Site: right antecubital; ph 15:46 Follow up: Response: No adverse reaction; Pain is unchanged, physician notified; RASS: ph Alert and Calm (0) 15:30 Drug: Demerol (meperidine) 25 mg Route: IVP; Site: right antecubital; ph 15:46 Follow up: Response: No adverse reaction; Pain is decreased ph Disposition Summary: 07/14/22 18:08 Discharge Ordered Location: Home kdr Problem: an acute exacerbation kdr Symptoms: are resolved kdr Condition: Stable kdr Diagnosis - Chest pain, unspecified kdr Followup: kdr - With: Private Physician - When: 2 - 3 days - Reason: If symptoms return, Further diagnostic work-up, Recheck today's complaints, Continuance of care, Re-evaluation by your physician Discharge Instructions: - Discharge Summary Sheet kdr - Nonspecific Chest Pain, Adult, [id number] kdr Forms: - Medication Reconciliation Form kdr - Thank You Letter kdr Prescriptions: - Synthroid 50 mcg Oral tablet - take 1 tablet by ORAL route once daily; 30 tablet; Refills: 0, Product kdr Selection Permitted - Tegretol 200 mg Oral Tablet - take 1 tablet by ORAL route every 12 hours; 60 tablet; Refills: 0, Product kdr Selection Permitted - Lisinopril 20 mg Oral Tablet - take 1 tablet by ORAL route once daily; 30 tablet; Refills: 0, Product kdr Selection Permitted Signatures: Dispatcher [employer] Lowell Acosta MD MD kdr Erika Booth RN RN ph
--- NOTE | 2022-07-14 18:09 | ER ---
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 Coronavirus screen: Vaccine status: Patient reports receiving the 2nd dose of the covid vaccine. Ebola Screen: No symptoms or risks identified at this time. Initial Sepsis Screen: Does the patient meet any 2 criteria? No. Patient's initial sepsis screen is negative. Does the patient have a suspected source of infection? No. Patient's initial sepsis screen is negative. Risk Assessment: Do you want to hurt yourself or someone else? Patient reports no desire to harm self or others. Onset of symptoms was July 14, 2022. 13:25 Method Of Arrival: EMS: [facility] ph 13:25 Acuity: CHRISTINA 3 ph Triage Assessment: : General: Appears in no apparent distress. well groomed, Behavior is calm, cooperative, ph appropriate for age. Pain: Complains of pain in chest and head. Neuro: Level of Consciousness is awake, alert, obeys commands, Oriented to person, place, time, situation. Neuro: Reports headache. Cardiovascular: Reports chest pain, nausea, vomiting, Capillary refill < 3 seconds in bilateral fingers Patient's skin is warm and dry. Respiratory: Airway is patent Respiratory effort is even, unlabored. Derm: Skin is pink, warm \\T\\ dry. Musculoskeletal: Circulation, motion, and sensation intact. Range of motion: intact in all extremities. Historical: - Allergies: 13: Codeine; ph 13:29 PENICILLINS; ph 13:29 Toradol; ph 13:29 Tramadol HCl; ph - PMHx: : Angina; Anxiety; Bipolar disorder; Hypertension; Hypothyroidism; ph - PSHx: 13: section; Ligation of fallopian tube; ph - Immunization history:: Adult Immunizations unknown. - Social history:: Smoking status: . Screenin: [facility] ED Fall Risk Assessment (Adult) History of falling in the last 3 months, ph including since admission No falls in past 3 months (0 pts) Confusion or Disorientation No (0 pts) Intoxicated or Sedated No (0 pts) Impaired Gait No (0 pts) Mobility Assist Device Used No (0 pt) Altered Elimination No (0 pt) Score/Fall Risk Level 0 - 2 = Low Risk Oriented to surroundings, Maintained a safe environment, Hourly rounding (assess needs \\T\\ fall precautionary measures) done. Abuse screen: Denies threats or abuse. Denies injuries from another. Nutritional screening: No deficits noted. Tuberculosis screening: No symptoms or risk factors identified. Assessment: 14:35 General: SEE TRIAGE ASSESSMENT. ph 15:53 Reassessment: Patient appears in no apparent distress at this time. Patient and/or ph family updated on plan of care and expected duration. Pain level reassessed. Patient is alert, oriented x 3, equal unlabored respirations, skin warm/dry/pink. Pt states that headache has improved after IV demerol, continues to c/o chest pain, states, " I was talking w/ my mom and she reminded me that they said I had a hiatal hernia in the past.". 16:49 Reassessment: Patient appears in no apparent distress at this time. Patient and/or ph family updated on plan of care and expected duration. Pain level reassessed. Patient is alert, oriented x 3, equal unlabored respirations, skin warm/dry/pink. 18:21 Reassessment: Patient appears in no apparent distress at this time. Patient and/or ph family updated on plan of care and expected duration. Pain level reassessed. Patient is alert, oriented x 3, equal unlabored respirations, skin warm/dry/pink. Vital Signs: 13:25 BP 158 / 95; Pulse 94; Resp 18; Temp 97.7; Pulse Ox 100% on R/A; Weight 90.72 kg; ph Height 5 ft. 7 in. (170.18 cm); 14:34 BP 159 / 91; Pulse 91; Resp 18; Pulse Ox 100% on R/A; ph 15:54 BP 123 / 83; Pulse 85; Resp 18; Pulse Ox 100% on R/A; ph 16:50 BP 121 / 80; Pulse 85; Resp 18; Pulse Ox 100% on R/A; ph 18:21 BP 123 / 78; Pulse 84; Resp 18; Temp 97.5; Pulse Ox 99% on R/A; ph 13:25 Body Mass Index 31.32 (90.72 kg, 170.18 cm) ph Vitals: 14:34 Cardiac Rhythm Assessment Sinus rhythm. ph 15:54 Cardiac Rhythm Assessment Sinus rhythm. ph ED Course: 13:22 Patient arrived in ED. ph 13:28 Triage completed. ph 13:29 Lowell Kay MD is Attending Physician. kdr 13:31 Arm band placed on Patient placed in an exam room, on a stretcher, on dual hose cementer, ph on pulse oximetry. 13:31 Patient has correct armband on for positive identification. Bed in low position. Call ph light in reach. Side rails up X 1. Client placed on continuous cardiac and pulse oximetry monitoring. NIBP monitoring applied. Door closed. Noise minimized. Lights dimmed. Warm blanket given. 13:31 Patient maintains SpO2 saturation greater than 95% on room air. ph 13:32 Erika Booth RN is Primary Nurse. ph 14:15 Initial lab(s) drawn, by nj, sent to lab. Inserted saline lock: 22 gauge in right ph antecubital area, using aseptic technique. Blood collected. 14:25 XRAY Chest (1 view) In Process Unspecified. EDMS 15:54 No provider procedures requiring assistance completed. ph 18:22 IV discontinued, intact, bleeding controlled, No redness/swelling at site. Pressure ph dressing applied. Administered Medications: 14:43 Drug: Zofran (Ondansetron) 4 mg Route: IVP; Site: right antecubital; ph 15:46 Follow up: Response: No adverse reaction ph 14:45 Drug: morphine 4 mg Route: IVP; Infused Over: 4 mins; Site: right antecubital; ph 15:46 Follow up: Response: No adverse reaction; Pain is unchanged, physician notified; RASS: ph Alert and Calm (0) 15:30 Drug: Demerol (meperidine) 25 mg Route: IVP; Site: right antecubital; ph 15:46 Follow up: Response: No adverse reaction; Pain is decreased ph Medication: 13:31 VIS not applicable for this client. ph Outcome: 18:08 Discharge ordered by . kdr 18:21 Discharged to home ambulatory. ph 18:21 Condition: good 18:21 Discharge instructions given to patient, Instructed on discharge instructions, follow up and referral plans. medication usage, Demonstrated understanding of instructions, follow-up care, medications, Prescriptions given X 3. 18:22 Patient left the ED. ph Signatures: Dispatcher [employer] Lowell Acosta MD MD kdr Erika Booth RN RN ph
[2022-07-14 19:10] VITALS: BP 123/78; TEMP 97.5; O2SAT 99
--- NOTE | 2022-07-15 17:34 | EKG ---
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
== END 2022-07-14 18:22 | disposition home or self-care (01) ==
LOC: ER 13:15
DX: R07.9 Chest pain, unspecified (principal); I10 Essential (primary) hypertension; E03.9 Hypothyroidism, unspecified; F41.9 Anxiety disorder, unspecified; F31.9 Bipolar disorder, unspecified; Z88.6 Allergy status to analgesic agent; Z88.0 Allergy status to penicillin
CPT/HCPCS: 85025; 80048; 36415; 83735; 84484 ×2; 83880; 71045; J2175; J2405; 93005

== ENCOUNTER 2022-07-30 16:02 | Emergency (ER) | payer OTHER ==
--- OUTSIDE RECORDS SUMMARY | 2022-07-30 16:13 | XMS REPORT | Continuity of Care Document ---
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 for 30 days. hydroCHLORO 2021-0 2021- No [id number] 25mg Take 1 [facility] thiazide 25 3-09 04-09 tablet by it y of mg tablet 00:00: 04:59 mouth [place] 00 :00 every Medical morning Branch and evening for 30 days. hydroCHLORO 2020- No [id number] 25mg Take 1 [facility] thiazide 25 3-02 27-09 tablet by it y of mg tablet 00:00: 04:59 mouth [place] 00 :00 every Medical morning Branch and evening for 30 days. hydrOXYzine 2020- No [id number] 25mg Take 1 [facility] 25 mg 3- 03-09 tablet by ity of tablet 00:00: 00:00 mouth [place] 00 :00 every 6 Medical (six) Branch hours as needed for Anxiety. gabapentin 2019-06 Yes 300mg Take 300 Un [facility] 300 mg 0-21 mg by ity of capsule 02:02: mouth 2 [place] [address] (two) Medical times Branch daily. levothyroxi 2019-06 Yes 100ug Take 100 U nivers ne 100 mcg 0-21 mcg by ity of tablet 02:02: mouth [place] [address] daily. Medical Branch meloxicam 2019-06 Yes 7.5mg Take 7.5 Uni vers 7.5 mg 0-21 mg by ity of tablet 02:02: mouth [place] [address] daily. Medical Branch metoprolol 2019-06 Yes 25mg Take 25 mg U nivers tartrate 25 0-21 by mouth ity of mg tablet 02:02: daily. [place] [address] Medical Branch omeprazole 2019-06 Yes 20mg Take 20 mg U nivers 20 mg 0-21 by mouth ity of capsule 02:02: daily. [place] [address] Medical Branch pravastatin 2019-06 Yes 20mg Take 20 mg [facility] 20 mg 0-21 by mouth ity of tablet 02:02: at [place] [address] bedtime. Medical Branch triamcinolo 2019-06 Yes .1% Apply 0.1 U nivers ne 0-21 % to ity of acetonide/l 02:02: area(s) 2 [place] (two) Medical (ARISTOCORT times Branch A TOPICAL) daily. gabapentin 2019-06 Yes 300mg Take 300 Un [facility] 300 mg 0-21 mg by ity of capsule 02:02: mouth 2 [place] [address] (two) Medical times Branch daily. levothyroxi 2019-06 Yes 100ug Take 100 U nivers ne 100 mcg 0-21 mcg by ity of tablet 02:02: mouth [place] [address] daily. Medical Branch meloxicam 2019-06 Yes 7.5mg Take 7.5 Uni vers 7.5 mg 0-21 mg by ity of tablet 02:02: mouth [place] [address] daily. Medical Branch metoprolol 2019-06 Yes 25mg Take 25 mg U nivers tartrate 25 0-21 by mouth ity of mg tablet 02:02: daily. [place] [address] Medical Branch omeprazole 2019-06 Yes 20mg Take 20 mg U nivers 20 mg 0-21 by mouth ity of capsule 02:02: daily. [place] [address] Medical Branch pravastatin 2019-06 Yes 20mg Take 20 mg [facility] 20 mg 0-21 by mouth ity of tablet 02:02: at [place] [address] bedtime. Medical Branch triamcinolo 2019-06 Yes .1% Apply 0.1 U nivers ne 0-21 % to ity of acetonide/l 02:02: area(s) 2 [place] [address] (two) Medical (ARISTOCORT times Branch A TOPICAL) daily. gabapentin 2019-06 Yes 300mg Take 300 Un [facility] 300 mg 0-21 mg by ity of capsule 02:02: mouth 2 [place] [address] (two) Medical times Branch daily. levothyroxi 2019-06 Yes 100ug Take 100 U nivers ne 100 mcg 0-21 mcg by ity of tablet 02:02: mouth [place] [address] daily. Medical Branch meloxicam 2019-06 Yes 7.5mg Take 7.5 Uni vers 7.5 mg 0-21 mg by ity of tablet 02:02: mouth [place] [address] daily. Medical Branch metoprolol 2019-06 Yes 25mg Take 25 mg U nivers tartrate 25 0-21 by mouth ity of mg tablet 02:02: daily. [place] [address] Medical Branch omeprazole 2019-06 Yes 20mg Take 20 mg U nivers 20 mg 0-21 by mouth ity of capsule 02:02: daily. [place] [address] Medical Branch pravastatin 2019-06 Yes 20mg Take 20 mg [facility] 20 mg 0-21 by mouth ity of tablet 02:02: at [place] [address] bedtime. Medical Branch triamcinolo 2019-06 Yes .1% Apply 0.1 U nivers ne 0-21 % to ity of acetonide/l 02:02: area(s) 2 [place] [address] (two) Medical (ARISTOCORT times Branch A TOPICAL) daily. gabapentin 2019-1 Yes 300mg Take 300 Un [facility] 300 mg 0-21 mg by ity of capsule 02:02: mouth 2 [place] [address] (two) Medical times Branch daily. levothyroxi 2019-06 Yes 100ug Take 100 U nivers ne 100 mcg 0-21 mcg by ity of tablet 02:02: mouth [place] [address] daily. Medical Branch meloxicam 2019-06 Yes 7.5mg Take 7.5 Uni vers 7.5 mg 0-21 mg by ity of tablet 02:02: mouth [place] [address] daily. Medical Branch metoprolol 2019-06 Yes 25mg Take 25 mg U nivers tartrate 25 0-21 by mouth ity of mg tablet 02:02: daily. [place] [address] Medical Branch omeprazole 2019-06 Yes 20mg Take 20 mg U nivers 20 mg 0-21 by mouth ity of capsule 02:02: daily. [place] [address] Medical Branch pravastatin 2019-06 Yes 20mg Take 20 mg [facility] 20 mg 0-21 by mouth ity of tablet 02:02: at [place] [address] bedtime. Medical Branch triamcinolo 2019-06 Yes .1% Apply 0.1 U nivers ne 0-21 % to ity of acetonide/l 02:02: area(s) [facility] [place] [facility] (ARISTOCORT times Branch A TOPICAL) daily. gabapentin 2019-06 Yes 300mg Take 300 Un [facility] 300 mg 0-21 mg by ity of capsule 02:02: mouth 2 [place] [address] (two) Medical times Branch daily. levothyroxi 2019-06 Yes 100ug Take 100 U nivers ne 100 mcg 0-21 mcg by ity of tablet 02:02: mouth [place] [address] daily. Medical Branch meloxicam 2019-06 Yes 7.5mg Take 7.5 [facility] vers 7.5 mg 0-21 mg by ity of tablet 02:02: mouth [place] [address] daily. Medical Branch metoprolol 2019-06 Yes 25mg Take 25 mg U nivers tartrate 25 0-21 by mouth ity of mg tablet 02:02: daily. [place] [address] Medical Branch omeprazole 2019-06 Yes 20mg Take 20 mg U nivers 20 mg 0-21 by mouth ity of capsule 02:02: daily. [address] Branch pravastatin 2019-06 Yes 20mg Take 20 mg [facility] 20 mg 0-21 by mouth ity of tablet 02:02: at [place] [address] bedtime. Medical Branch triamcinolo 2019- Yes .1% Apply 0.1 U nivers ne 0-21 % to ity of acetonide/l 02:02: area(s) 2 [place] [address] (two) Medical (ARISTOCORT times Branch A TOPICAL) daily. gabapentin 2019-06 Yes 300mg Take 300 [facility] 300 mg 0-21 mg by ity of capsule 02:02: mouth 2 [place] [address] (two) Medical times Branch daily. levothyroxi 2019- Yes 100ug Take 100 U nivers ne 100 mcg 0-21 mcg by ity of tablet 02:02: mouth [place] [address] daily. Medical Branch meloxicam 2019-06 Yes 7.5mg Take 7.5 Uni vers 7.5 mg 0-21 mg by ity of tablet 02:02: mouth [place] [address] daily. Medical Branch metoprolol 2019-06 Yes 25mg Take 25 mg U nivers tartrate 25 0-21 by mouth ity of mg tablet 02:02: daily. [place] [address] Medical Branch omeprazole 2019-06 Yes 20mg Take 20 mg U nivers 20 mg 0-21 by mouth ity of capsule 02:02: daily. [place] [address] Medical Branch pravastatin 2019-06 Yes 20mg Take 20 mg [facility] 20 mg 0-21 by mouth ity of tablet 02:02: at [place] [address] bedtime. Medical Branch triamcinolo 2019-06 Yes .1% Apply 0.1 U nivers ne 0-21 % to ity of acetonide/l 02:02: area(s) 2 [place] [address] (two) Medical (ARISTOCORT times Branch A TOPICAL) daily. gabapentin 2019-06 Yes 300mg Take 300 Un [facility] 300 mg 0-21 mg by ity of capsule 02:02: mouth 2 [place] [address] (two) Medical times Branch daily. levothyroxi 2019- Yes 100ug Take 100 U nivers ne 100 mcg 0-21 mcg by ity of tablet 02:02: mouth [place] [address] daily. Medical Branch meloxicam 2019- Yes 7.5mg Take 7.5 Uni vers 7.5 mg 0-21 mg by ity of tablet 02:02: mouth [place] [address] daily. Medical Branch metoprolol 2019- Yes 25mg Take 25 mg U nivers tartrate 25 0-21 by mouth ity of mg tablet 02:02: daily. [place] [address] Medical Branch omeprazole 2019-06 Yes 20mg Take 20 mg U nivers 20 mg 0-21 by mouth ity of capsule 02:02: daily. [place] [address] Medical Branch pravastatin 2019-06 Yes 20mg Take 20 mg [facility] 20 mg 0-21 by mouth ity of tablet 02:02: at [place] [address] bedtime. Medical Branch triamcinolo 2019-06 Yes .1% Apply 0.1 U nivers ne 0-21 % to ity of acetonide/l 02:02: area(s) 2 [place] [address] (two) Medical (ARISTOCORT times Branch A TOPICAL) daily. gabapentin 2019-06 Yes 300mg Take 300 Un [facility] 300 mg 0-21 mg by ity of capsule 02:02: mouth 2 [place] [address] (two) Medical times Branch daily. levothyroxi 2019-06 Yes 100ug Take 100 U nivers ne 100 mcg 0-21 mcg by ity of tablet 02:02: mouth [place] [address] daily. Medical Branch meloxicam 2019-06 Yes 7.5mg Take 7.5 Uni vers 7.5 mg 0-21 mg by ity of tablet 02:02: mouth [place] [address] daily. Medical Branch metoprolol 2019-06 Yes 25mg Take 25 mg U nivers tartrate 25 0-21 by mouth ity of mg tablet 02:02: daily. [place] [address] Medical Branch omeprazole 2019-06 Yes 20mg Take 20 mg U nivers 20 mg 0-21 by mouth ity of capsule 02:02: daily. [place] [address] Medical Branch pravastatin 2019-06 Yes 20mg Take 20 mg [facility] 20 mg 0-21 by mouth ity of tablet 02:02: at [place] [address] bedtime. Medical Branch triamcinolo 2019-06 Yes .1% Apply 0.1 U nivers ne 0-21 % to ity of acetonide/l 02:02: area(s) 2 [place] [address] [place] (two) Medical (ARISTOCORT times Branch A TOPICAL) daily. acetaminoph 2019-06- No [id number] 650mg Take 2 [facility] en 325 mg 0-20 10-21 tablets by ity of tablet 00:00: 04:59 mouth [place] 00 :00 every 6 Medical (six) Branch hours as needed for Alternate with ibuprofen for pain scale 4-6. ibuprofen 2019-06- No [id number] 600mg Take 3 [facility] 200 mg 0-20 10-21 tablets by ity of tablet 00:00: 04:59 mouth [place] 00 :00 every 6 Medical (six) Branch hours as needed (Alternate with acetaminop hen for pain). acetaminoph 2019-06- No [id number] 650mg Take 2 [facility] en 325 mg 0-20 10-21 tablets by ity of tablet 00:00: 04:59 mouth [place] 00 :00 every 6 Medical (six) Branch hours as needed for Alternate with ibuprofen for pain scale 4-6. ibuprofen 2019-06- No [id number] 600mg Take 3 [facility] 200 mg 0-20 10-21 tablets by ity of tablet 00:00: 04:59 mouth [place] 00 :00 every 6 Medical (six) Branch hours as needed (Alternate with acetaminop hen for pain). acetaminoph 2019-06- No [id number] 650mg Take 2 [facility] en 325 mg 0-20 10-21 tablets by ity of tablet 00:00: 04:59 mouth [place] 00 :00 every 6 Medical (six) Branch hours as needed for Alternate with ibuprofen for pain scale 4-6. ibuprofen 2019-06- No [id number] 600mg Take 3 [facility] 200 mg 0-20 10-21 tablets by ity of tablet 00:00: 04:59 mouth [place] 00 :00 every 6 Medical (six) Branch hours as needed (Alternate with acetaminop hen for pain). acetaminoph 2019-06- No [id number] 650mg Take 2 [facility] en 325 mg 0-20 10-21 tablets by ity of tablet 00:00: 04:59 mouth [place] 00 :00 every 6 Medical (six) Branch hours as needed for Alternate with ibuprofen for pain scale 4-6. ibuprofen 2019-06- No [id number] 600mg Take 3 [facility] 200 mg 0-20 10-21 tablets by ity of tablet 00:00: 04:59 mouth [place] 00 :00 every 6 Medical (six) Branch hours as needed (Alternate with acetaminop hen for pain). acetaminoph 2019-06- No [id number] 650mg Take 2 [facility] en 325 mg 0-20 10-21 tablets by ity of tablet 00:00: 04:59 mouth [place] 00 :00 every 6 Medical (six) Branch hours as needed for Alternate with ibuprofen for pain scale 4-6. ibuprofen 2019-06 No [id number] 600mg Take 3 [facility] 200 mg 0-20 10-21 tablets by ity of tablet 00:00: 04:59 mouth [place] 00 :00 every 6 Medical (six) Branch hours as needed (Alternate with acetaminop hen for pain). acetaminoph 2019-06 No [id number] 650mg Take 2 [facility] en 325 mg 0-20 10-21 tablets by ity of tablet 00:00: 04:59 mouth [place] 00 :00 every 6 Medical (six) Branch hours as needed for Alternate with ibuprofen for pain scale 4-6. ibuprofen 2019-06 No [id number] 600mg Take 3 [facility] 200 mg 0-20 10-21 tablets by ity of tablet 00:00: 04:59 mouth [place] 00 :00 every 6 Medical (six) Branch hours as needed (Alternate with acetaminop hen for pain). acetaminoph 2019-06 No [id number] 650mg Take 2 [facility] en 325 mg 0-20 10-21 tablets by ity of tablet 00:00: 04:59 mouth [place] 00 :00 every 6 Medical (six) Branch hours as needed for Alternate with ibuprofen for pain scale 4-6. ibuprofen 2019-06 No [id number] 600mg Take 3 [facility] 200 mg 0-20 10-21 tablets by ity of tablet 00:00: 04:59 mouth [place] 00 :00 every 6 Medical (six) Branch hours as needed (Alternate with acetaminop hen for pain). acetaminoph 2019-06- No [id number] 650mg Take 2 [facility] en 325 mg 0-20 10-21 tablets by ity of tablet 00:00: 04:59 mouth [place] 00 :00 every 6 Medical (six) Branch hours as needed for Alternate with ibuprofen for pain scale 4-6. ibuprofen 2019-06 No [id number] 600mg Take 3 [facility] 200 mg 0-20 10-21 tablets by ity of tablet 00:00: 04:59 mouth [place] 00 :00 every 6 Medical (six) Branch hours as needed (Alternate with acetaminop hen for pain). acetaminoph 2019-06- No [id number] 650mg Take 2 [facility] en 325 mg 0-20 10-21 tablets by ity of tablet 00:00: 04:59 mouth [place] 00 :00 every 6 Medical (six) Branch hours as needed for Alternate with ibuprofen for pain scale 4-6. ibuprofen 2019-06- No [id number] 600mg Take 3 [facility] 200 mg 0-20 10-21 tablets by ity of tablet 00:00: 04:59 mouth [place] 00 :00 every 6 Medical (six) Branch hours as needed (Alternate with acetaminop hen for pain). acetaminoph 2019-06- No [id number] 650mg Take 2 [facility] en 325 mg 0-20 10-21 tablets by ity of tablet 00:00: 04:59 mouth [place] 00 :00 every 6 Medical (six) Branch hours as needed for Alternate with ibuprofen for pain scale 4-6. ibuprofen 2019-06- No [id number] 600mg Take 3 [facility] 200 mg 0-20 10-21 tablets by ity of tablet 00:00: 04:59 mouth [place] 00 :00 every 6 Medical (six) Branch hours as needed (Alternate with acetaminop hen for pain). acetaminoph 2019-06- No [id number] 650mg Take 2 [facility] en 325 mg 0-20 10-21 tablets by ity of tablet 00:00: 04:59 mouth [place] 00 :00 every 6 Medical (six) Branch hours as needed for Alternate with ibuprofen for pain scale 4-6. ibuprofen 2019-06- No [id number] 600mg Take 3 [facility] 200 mg 0-20 10-21 tablets by ity of tablet 00:00: 04:59 mouth [place] 00 :00 every 6 Medical (six) Branch hours as needed (Alternate with acetaminop hen for pain). ibuprofen 2019-06- No [id number] 600mg Take 3 [facility] 200 mg 0-20 10-21 tablets by ity of tablet 00:00: 04:59 mouth [place] 00 :00 every 6 Medical (six) Branch hours as needed (Alternate with acetaminop hen for pain). ibuprofen 2019-06- No [id number] 600mg Take 3 [facility] 200 mg 0-20 10-21 tablets by ity of tablet 00:00: 04:59 mouth [place] 00 :00 every 6 Medical (six) Branch hours as needed (Alternate with acetaminop hen for pain). ibuprofen 2019-06- No [id number] 600mg Take 3 [facility] 200 mg 0-20 10-21 tablets by ity of tablet 00:00: 04:59 mouth [place] 00 :00 every 6 Medical (six) Branch hours as needed (Alternate with acetaminop hen for pain). acetaminoph 2019-06 No [id number] 650mg Take 2 [facility] en 325 mg 0-20 05-30 tablets by ity of tablet 00:00: 00:00 mouth [place] 00 :00 every 6 Medical (six) Branch hours as needed for Alternate with ibuprofen for pain scale 4-6. ALPRAZolam 2019-06 Yes .25mg 0.25 mg, Un sushant (XANAX) 0-19 Oral, BID, ity of tablet 0.25 01:00: First dose [place] mg 00 on [facility] 04/12/20 Branch at 2000, Until Discontinu ed, Routine ziprasidone 2019-06- No 20mg 20 mg, Uni vers (GEODON) 0-18 10-25 Intramuscu ity of injection 18:20: 18:19 lar, [place] 20 mg 44 :44 Q6HPRN, Medical Starting Branch [place] 04/12/20 at 1320, Until [place] 04/19/20 at 1319, Routine, Agitation carBAMazepi 2019-06 Yes 200mg 200 mg, Un sushant ne 0-18 Oral, ity of (TEGRETOL) 03:00: Q12H, [place] tablet 200 00 First dose Med ical mg on [facility] Branch 04/11/20 at 2200, Until Discontinu ed, Routine methocarbam 2019-06 Yes 500mg 500 mg, Un sushant oL 0-18 Oral, QID, ity of (ROBAXIN) 01:00: First dose [place] tablet 500 00 on [facility] Medical mg 04/11/20 Branch at 2000, Until [...] [place] mg 00 First dose Medical on [facility] Branch 04/11/20 at 1215, Until Discontinu ed, Routine levothyroxi 2019-06 Yes 100ug 100 mcg, U nivers ne 0-17 Oral, ity of (SYNTHROID) 17:15: QAM-0600, [place] tablet 100 00 First dose Med ical mcg on [facility] Branch 04/11/20 at 1215, Until Discontinu ed, [...] 0-17 Oral, ity of (TYLENOL) 17:04: Q6HPRN, [place] tablet 650 27 Starting Medic al mg Sat Branch 04/11/20 at 1204, Until Discontinu ed, Routine, Pain (scale 1-3) docusate 2019-06 Yes 100mg 100 mg, Unive rs (COLACE) 0-17 Oral, ity of capsule 100 14:00: DAILY, [place] mg 00 First dose Medical on [facility] Branch 04/11/20 at 0900, Until Discontinu ed, [...] dose, Fri Branch 04/10/20 at 2245, Routine
[employer] approving Restricted medication : PEDRITO ROSADO clonazePAM 2019-06 Yes [id number] 1mg Take 1 U nivers (KLONOPIN) 0-17 tablet by ity of 1 mg tablet 00:00: mouth 3 [place] (three) Medical times Branch daily as needed (anxiety). clonazePAM 2019-06 Yes [id number] 1mg Take 1 U nivers (KLONOPIN) 0-17 tablet by ity of 1 mg tablet 00:00: mouth 3 [place] (three) Medical times Branch daily as needed (anxiety). clonazePAM 2019-06 Yes [id number] 1mg Take 1 U nivers (KLONOPIN) 0-17 tablet by ity of 1 mg tablet 00:00: mouth 3 [place] (three) Medical times Branch daily as needed (anxiety). clonazePAM 2019- Yes [id number] 1mg Take 1 U nivers (KLONOPIN) 0-17 tablet by ity of 1 mg tablet 00:00: mouth 3 [place] (three) Medical times Branch daily as needed (anxiety). clonazePAM 2019- Yes [id number] 1mg Take 1 U nivers (KLONOPIN) 0-17 tablet by ity of 1 mg tablet 00:00: mouth 3 [place] (three) Medical times Branch daily as needed (anxiety). clonazePAM 2019- Yes [id number] 1mg Take 1 U nivers (KLONOPIN) 0-17 tablet by ity of 1 mg tablet 00:00: mouth 3 [place] (three) Medical times Branch daily as needed (anxiety). clonazePAM 2019-06 Yes [id number] 1mg Take 1 U nivers (KLONOPIN) 0-17 tablet by ity of 1 mg tablet 00:00: mouth 3 [place] (three) Medical times Branch daily as needed (anxiety). clonazePAM 2019-06 Yes [id number] 1mg Take 1 U nivers (KLONOPIN) 0-17 tablet by ity of 1 mg tablet 00:00: mouth 3 [place] (three) Medical times Branch daily as needed (anxiety). clonazePAM 2019-06 Yes [id number] 1mg Take 1 U nivers (KLONOPIN) 0-17 [...] Fri Med ical tablet 1 07/12/19 at [facility] tablet 2215, RAJANI ondansetron 2019- No [...] 07/12/19 at 1545, RAJANI HYDROcodone 2019-0 Yes [id number] 1{tbl} Take 1 [facility] -acetaminop 1-17 tablet by ity of hen 5-325 00:00: mouth [place] mg tablet 00 every 6 Medical (six) Branch hours as needed for Pain (scale 1-3). HYDROcodone 2019-0 Yes [id number] 1{tbl} Take 1 [facility] -acetaminop 1-17 tablet by ity of hen 5-325 00:00: mouth [place] mg tablet 00 every 6 Medical (six) Branch hours as needed for Pain (scale 1-3). HYDROcodone 2019-0 Yes [id number] 1{tbl} Take 1 [facility] -acetaminop 1-17 tablet by ity of hen 5-325 00:00: mouth [place] mg tablet 00 every 6 Medical (six) Branch hours as needed for Pain (scale 1-3). HYDROcodone 2019-0 Yes [id number] 1{tbl} Take 1 [facility] -acetaminop 1-17 tablet by ity of hen 5-325 00:00: mouth [place] mg tablet 00 every 6 Medical (six) Branch hours as needed for Pain (scale 1-3). HYDROcodone 2019-0 Yes [id number] 1{tbl} Take 1 [facility] -acetaminop 1-17 tablet by ity of hen 5-325 00:00: mouth [place] mg tablet 00 every 6 Medical (six) Branch hours as needed for Pain (scale 1-3). HYDROcodone 2020-0 Yes [id number] 1{tbl} Take 1 [facility] -acetaminop 1-17 tablet by ity of hen 5-325 00:00: mouth [place] mg tablet 00 every 6 Medical (six) Branch hours as needed for Pain (scale 1-3). HYDROcodone 2019-0 Yes [id number] 1{tbl} Take 1 [facility] -acetaminop 1-17 tablet by ity of hen 5-325 00:00: mouth [place] mg tablet 00 every 6 Medical (six) Branch hours as needed for Pain (scale 1-3). HYDROcodone Yes [id number] 1{tbl} Take 1 [facility] -acetaminop 1-17 tablet by ity of hen 5-325 00:00: mouth [place] mg tablet 00 every 6 Medical (six) Branch hours as needed for Pain (scale 1-3). HYDROcodone Yes [id number] 1{tbl} Take 1 [facility] -acetaminop 1-17 tablet by ity of hen 5-325 00:00: mouth [place] mg tablet 00 every 6 Medical (six) Branch hours as needed for Pain (scale 1-3). HYDROcodone Yes [id number] 1{tbl} Take 1 [facility] -acetaminop 1-17 tablet by ity of hen 5-325 00:00: mouth [place] mg tablet 00 every 6 Medical (six) Branch hours as needed for Pain (scale 1-3). HYDROcodone Yes [id number] 1{tbl} Take 1 [facility] -acetaminop 1-17 tablet by ity of hen 5-325 00:00: mouth [place] mg tablet 00 every 6 Medical (six) Branch hours as needed for Pain (scale 1-3). HYDROcodone Yes [id number] 1{tbl} Take 1 [facility] -acetaminop 1-17 tablet by ity of hen 5-325 00:00: mouth [place] mg tablet 00 every 6 Medical (six) Branch hours as needed for Pain (scale 1-3). HYDROcodone Yes [id number] 1{tbl} Take 1 [facility] -acetaminop 1-17 tablet [...] mouth ity of mg tablet 06:37: daily. [place] [address] Medical Branch omeprazole Yes 20mg Take 20 mg U nivers 20 mg 7-13 by mouth ity of capsule 06:37: daily. [place] [address] Medical Branch pravastatin Yes 20mg Take 20 mg [facility] 20 mg 7-13 by mouth ity of tablet 06:37: at [place] [address] bedtime. Medical Branch triamcinolo Yes .1% Apply 0.1 U nivers ne 7-13 % to ity of acetonide/l 06:37: area(s) 2 [place] .s.[place]. [place] (two) Medical (ARISTOCORT times Branch A TOPICAL) daily. levothyroxi 0 Yes 100ug Take 100 U nivers ne 100 mcg 7-13 mcg by ity of tablet 06:37: mouth [place] [address] daily. Medical Branch meloxicam Yes 7.5mg Take 7.5 Uni vers 7.5 mg 7-13 mg by ity of tablet 06:37: mouth [place] [address] daily. Medical Branch metoprolol Yes 25mg Take 25 mg U nivers tartrate 25 7-13 by mouth ity of mg tablet 06:37: daily. [place] [address] Medical Branch omeprazole Yes 20mg Take 20 mg U nivers 20 mg 7-13 by mouth ity of capsule 06:37: daily. [place] [address] Medical Branch pravastatin Yes 20mg Take 20 mg [facility] 20 mg 7-13 by mouth ity of tablet 06:37: at [place] [address] bedtime. Medical Branch triamcinolo Yes .1% Apply [...] mouth ity of mg tablet 06:37: daily. [place] [address] Medical Branch omeprazole 0 Yes 20mg Take 20 mg U nivers 20 mg 7-13 by mouth ity of capsule 06:37: daily. [place] [address] Medical Branch pravastatin Yes 20mg Take 20 mg Univers 20 mg 7-13 by mouth ity of tablet 06:37: at [place] [address] bedtime. Medical Branch triamcinolo Yes .1% Apply 0.1 U nivers ne 7-13 % to ity of acetonide/l 06:37: area(s) 2 [place] .s.b. 32 (two) Medical (ARISTOCORT times Branch A TOPICAL) daily. levothyroxi Yes 100ug Take 100 U nivers ne 100 mcg 7-13 mcg by ity of tablet 06:37: mouth [place] [address] daily. Medical Branch meloxicam Yes 7.5mg Take 7.5 Uni vers 7.5 mg 7-13 mg by ity of tablet 06:37: mouth [place] [address] daily. Medical Branch metoprolol Yes 25mg Take 25 mg U nivers tartrate 25 7-13 by mouth ity of mg tablet 06:37: daily. [place] [address] Medical Branch omeprazole Yes 20mg Take 20 mg U nivers 20 mg 7-13 by mouth ity of capsule 06:37: daily. [place] [address] Medical Branch pravastatin Yes 20mg Take 20 mg [facility] 20 mg 7-13 by mouth ity of tablet 06:37: at [place] [address] bedtime. Medical Branch triamcinolo Yes .1% Apply [...] mg by ity of tablet 06:37: mouth [place] [address] daily. Medical Branch metoprolol 2019-0 Yes 25mg Take 25 mg U nivers tartrate 25 7-13 by mouth ity of mg tablet 06:37: daily. [place] [address] Medical Branch omeprazole 2019-0 Yes 20mg Take 20 mg U nivers 20 mg 7-13 by mouth ity of capsule 06:37: daily. [place] [address] [facility] Branch pravastatin 2019-0 Yes 20mg Take 20 mg Univers 20 mg 7-13 by mouth ity of tablet 06:37: at [place] [address] bedtime. Medical Branch triamcinolo Yes .1% Apply 0.1 U nivers ne 7-13 % to ity of acetonide/l 06:37: area(s) 2 [place]s.[place]. 32 (two) Medical (ARISTOCORT times Branch A TOPICAL) daily. levothyroxi 2019-0 Yes 100ug Take 100 U nivers ne 100 mcg 7-13 mcg by ity of tablet 06:37: mouth [place] [address] daily. Medical Branch meloxicam 2019-0 Yes 7.5mg Take 7.5 Uni vers 7.5 mg 7-13 mg by ity of tablet 06:37: mouth [place] [address] daily. Medical Branch metoprolol 0 Yes 25mg Take 25 mg U nivers tartrate 25 7-13 by mouth ity of mg tablet 06:37: daily. [place] [address] Medical Branch omeprazole 2019-0 Yes 20mg Take 20 mg U nivers 20 mg 7-13 by mouth ity of capsule 06:37: daily. [place] [address] [facility] Branch pravastatin 2019-0 Yes 20mg Take 20 mg Univers 20 mg 7-13 by mouth ity of tablet 06:37: at [place] [address] bedtime. Medical Branch triamcinolo Yes .1% Apply [...] by ity of capsule 06:27: mouth 2 [place] 56 (two) Medical times Branch daily. gabapentin 2019-0 Yes 300mg Take 300 Un sushant 300 mg 7-13 mg by ity of capsule 06:27: mouth 2 [place] 56 (two) Medical times Branch daily. gabapentin 2019-0 Yes 300mg Take 300 Un sushant 300 mg 7-13 mg by ity of capsule 06:27: mouth 2 [place] 56 (two) Medical times Branch daily. gabapentin 2019-0 Yes 300mg Take 300 Un sushant 300 mg 7-13 mg by ity of capsule 06:27: mouth 2 [place] 56 (two) Medical times Branch daily. gabapentin 2019-0 Yes 300mg Take 300 Un sushant 300 mg 7-13 mg by ity of capsule 06:27: mouth 2 [place] 56 (two) Medical times Branch daily. Vital Signs Vital Name Observation Time Observation Value Comments Source Heart rate 2021-09-22 03:30:00 87 /min [facility] Respiratory rate 2021-09-22 03:30:00 20 /min [facility] Oxygen saturation in 2021-09-22 03:30:00 100 /min [facility] Arterial blood by [facility] Pulse oximetry Branch Systolic blood 2021-09-22 03:00:00 148 mm[Hg] [facility] 2021-09-22 03:00:00 86 mm[Hg] Unive [facility] Body temperature 2021-09-22 01:12:00 36.67 Yamila [facility] Body height 2021-09-22 01:12:00 167.6 cm [facility] Body weight 2021-09-22 01:12:00 72.576 kg [facility] BMI 2021-09-22 01:12:00 25.82 kg/m2 [facility] Systolic blood 2021-03-25 15:30:00 153 mm[Hg] Univer sity [facility] Diastolic blood 2021-03-25 15:30:00 96 mm[Hg] [facility] rate 2021-03-25 15:30:00 100 /min [facility] Respiratory rate 2021-03-25 15:30:00 20 /min [facility] [place] [facility] Oxygen saturation in 2021-03-25 15:30:00 97 /min [facility] Arterial blood by [facility] Pulse oximetry Branch Body temperature 2021-03-25 08:55:00 36.39 Yamila [facility] [place] [facility] Body weight 2021-03-25 08:55:00 81.194 kg [facility] [place] [facility] BMI 2021-03-25 08:55:00 28.89 kg/m2 [facility] [place] [facility] Systolic blood 2020-11-23 17:24:00 104 mm[Hg] Univer sity of [facility] [place] [facility] Diastolic blood 2020-11-23 17:24:00 68 mm[Hg] Unive rsity of [facility] [place] [facility] Heart rate 2020-11-23 17:24:00 91 /min [facility] [place] [facility] Respiratory rate 2020-11-23 17:24:00 18 /min [facility] [place] [facility] Oxygen saturation in 2020-11-23 17:24:00 97 /min [facility] Arterial blood by [facility] Pulse oximetry Branch Body temperature 2020-11-23 12:24:00 36.94 Yamila [facility] [place] [facility] Body weight 2020-11-23 09:53:00 81.194 kg [facility] [place] [facility] BMI 2020-11-23 09:53:00 28.89 kg/m2 [facility] Body height 2020-11-22 21:41:00 167.6 cm [facility] [place] [facility] Systolic blood 2020-11-23 17:24:00 104 mm[Hg] Univer sity [facility] [place] [facility] Diastolic blood 2020-11-23 17:24:00 68 mm[Hg] Unive rsity [facility] [place] [facility] Heart rate 2020-11-23 17:24:00 91 /min [facility] [place] [facility] Respiratory rate 2020-11-23 17:24:00 18 /min [facility] [place] [facility] Oxygen saturation in 2020-11-23 17:24:00 97 /min [facility] Arterial blood by [facility] Pulse oximetry Branch Body temperature 2020-11-23 12:24:00 36.94 Yamila [facility] [place] [facility] Body weight 2020-11-23 09:53:00 81.194 kg [facility] [place] [facility] BMI 2020-11-23 09:53:00 28.89 kg/m2 [facility] [place] [facility] Body height 2020-11-22 21:41:00 167.6 cm [facility] [place] [facility] Systolic blood 2020-10-22 10:00:00 149 mm[Hg] Univer sity [facility] [place] [facility] Diastolic blood 2020-10-22 10:00:00 92 mm[Hg] Unive rsity [facility] [place] [facility] Heart rate 2020-10-22 10:00:00 89 /min [facility] [place] [facility] Body temperature 2020-10-22 10:00:00 36.78 Yamila [facility] [place] [facility] Respiratory rate 2020-10-22 10:00:00 16 /min [facility] [place] [facility] Oxygen saturation in 2020-10-22 10:00:00 97 /min [facility] Arterial blood by [place] [employer] Pulse oximetry Branch Body weight 2020-10-22 07:03:00 72.576 kg [facility] [place] [facility] BMI 2020-10-22 07:03:00 25.82 kg/m2 [facility] [place] [facility] Systolic blood 2020-10-22 10:00:00 149 mm[Hg] Univer sity [facility] [place] [facility] Diastolic blood 2020-10-22 10:00:00 92 mm[Hg] Unive rsity [facility] [place] [facility] Heart rate 2020-10-22 10:00:00 89 /min [facility] [place] [facility] Body temperature 2020-10-22 10:00:00 36.78 Yamila [facility] [place] [facility] Respiratory rate 2020-10-22 10:00:00 16 /min [facility] [place] [facility] Oxygen saturation in 2020-10-22 10:00:00 97 /min [facility] Arterial blood by [place] [employer] [facility] Pulse oximetry Branch Body weight 2020-10-22 07:03:00 72.576 kg [facility] [place] [facility] BMI 2020-10-22 07:03:00 25.82 kg/m2 [facility] [place] [facility] Systolic blood 2020-10-20 04:55:00 181 mm[Hg] Univer sity [facility] [place] [facility] Diastolic blood 2020-10-20 04:55:00 109 mm[Hg] Unive rsity [facility] [place] [facility] Heart rate 2020-10-20 04:55:00 126 /min [facility] [place] [facility] Body temperature 2020-10-20 04:55:00 36.72 Yamila [facility] [place] [facility] Respiratory rate 2020-10-20 04:55:00 17 /min [facility] [place] [facility] Body weight 2020-10-20 04:55:00 72.598 kg [facility] [place] [facility] BMI 2020-10-20 04:55:00 25.83 kg/m2 [facility] [place] [facility] Oxygen saturation in 2020-10-20 04:55:00 97 /min [facility] Arterial blood by [place] [employer] [facility] Pulse oximetry Branch Systolic blood 2020-10-20 04:55:00 181 mm[Hg] Univer sity [facility] [place] [facility] Diastolic blood 2020-10-20 04:55:00 109 mm[Hg] Unive rsity [facility] [place] [facility] Heart rate 2020-10-20 04:55:00 126 /min [facility] [place] [facility] Body temperature 2020-10-20 04:55:00 36.72 Yamila [facility] [place] [facility] Respiratory rate 2020-10-20 04:55:00 17 /min [facility] [place] [facility] Body weight 2020-10-20 04:55:00 72.598 kg [facility] [place] [facility] BMI 2020-10-20 04:55:00 25.83 kg/m2 [facility] [place] [facility] Oxygen saturation in 2020-10-20 04:55:00 97 /min [facility] Arterial blood by [place] [employer] [facility] Pulse oximetry Branch Systolic blood 2020-10-15 20:07:00 124 mm[Hg] Univer sity [facility] [place] [facility] Diastolic blood 2020-10-15 20:07:00 72 mm[Hg] Unive rsity [facility] [place] [facility] Heart rate 2020-10-15 20:07:00 97 /min [facility] [place] [facility] Body temperature 2020-10-15 20:07:00 36.83 Yamila [facility] [place] [facility] Respiratory rate 2020-10-15 20:07:00 17 /min [facility] [place] [facility] Oxygen saturation in 2020-10-15 20:07:00 96 /min [facility] Arterial blood by [place] [employer] [facility] Pulse oximetry Branch Body weight 2020-10-15 12:34:00 68.04 kg [facility] [place] [facility] BMI 2020-10-15 12:34:00 24.21 kg/m2 [facility] [place] [facility] Systolic blood 2020-10-15 20:07:00 124 mm[Hg] Univer sity [facility] [place] [facility] Diastolic blood 2020-10-15 20:07:00 72 mm[Hg] Unive rsity [facility] [place] [facility] Heart rate 2020-10-15 20:07:00 97 /min [facility] [place] [facility] Body temperature 2020-10-15 20:07:00 36.83 Yamila [facility] [place] [facility] Respiratory rate 2020-10-15 20:07:00 17 /min [facility] [place] [facility] Oxygen saturation in 2020-10-15 20:07:00 96 /min [facility] Arterial blood by [place] [employer] [facility] Pulse oximetry Branch Body weight 2020-10-15 12:34:00 68.04 kg [facility] [place] [facility] BMI 2020-10-15 12:34:00 24.21 kg/m2 [facility] [place] [facility] Systolic blood 2020-10-13 15:00:00 145 mm[Hg] Univer sity [facility] [place] [facility] Diastolic blood 2020-10-13 15:00:00 102 mm[Hg] Unive rsity of [facility] [place] [facility] Heart rate 2020-10-13 15:00:00 115 /min [facility] [place] [facility] Respiratory rate 2020-10-13 15:00:00 22 /min [facility] [place] [facility] Oxygen saturation in 2020-10-13 15:00:00 100 /min [facility] Arterial blood by [place] [employer] [facility] Pulse oximetry Branch Body temperature 2020-10-13 09:40:00 37 Yamila [facility] [place] [facility] Body weight 2020-10-13 09:40:00 68.04 kg [facility] [place] [facility] BMI 2020-10-13 09:40:00 24.21 kg/m2 [facility] [place] [facility] Systolic blood 2020-10-13 15:00:00 145 mm[Hg] Univer sity of [facility] [place] [facility] Diastolic blood 2020-10-13 15:00:00 102 mm[Hg] Unive rsity [facility] [place] [facility] Heart rate 2020-10-13 15:00:00 115 /min [facility] [place] [facility] Respiratory rate 2020-10-13 15:00:00 22 /min [facility] [place] [facility] Oxygen saturation in 2020-10-13 15:00:00 100 /min [facility] Arterial blood by [facility] steve Pulse oximetry Branch Body temperature 2020-10-13 09:40:00 37 Yamila [facility] [place] [facility] Body weight 2020-10-13 09:40:00 68.04 kg [facility] [place] [facility] BMI 2020-10-13 09:40:00 24.21 kg/m2 [facility] [place] [facility] Systolic blood 2020-09-17 03:41:00 147 mm[Hg] Univer sity of [facility] [place] [facility] Diastolic blood 2020-09-17 03:41:00 98 mm[Hg] Unive rsity of [facility] [place] [facility] Heart rate 2020-09-17 03:41:00 92 /min [facility] [place] [facility] Respiratory rate 2020-09-17 03:41:00 22 /min [facility] [place] [facility] Oxygen saturation in 2020-09-17 03:41:00 100 /min [facility] Arterial blood by [facility] Pulse oximetry Branch Body temperature 2020-09-17 02:45:00 37.17 Yamila [facility] [place] [facility] Body height 2020-09-17 02:45:00 167.6 cm [facility] [place] [facility] Body weight 2020-09-17 02:45:00 65.772 kg [facility] [place] [facility] BMI 2020-09-17 02:45:00 23.40 kg/m2 [facility] [place] [facility] Systolic blood 2020-09-17 03:41:00 147 mm[Hg] Univer sity [facility] [place] [facility] Diastolic blood 2020-09-17 03:41:00 98 mm[Hg] Unive rsity [facility] [place] [facility] Heart rate 2020-09-17 03:41:00 92 /min [facility] [place] [facility] Respiratory rate 2020-09-17 03:41:00 22 /min [facility] [place] [facility] Oxygen saturation in 2020-09-17 03:41:00 100 /min [facility] Arterial blood by [place] [employer] [facility] Pulse oximetry Branch Body temperature 2020-09-17 02:45:00 37.17 Yamila [facility] [place] [facility] Body height 2020-09-17 02:45:00 167.6 cm [facility] [place] [facility] Body weight 2020-09-17 02:45:00 65.772 kg [facility] [place] [facility] BMI 2020-09-17 02:45:00 23.40 kg/m2 [facility] [place] [facility] Systolic blood 2020-09-06 11:02:00 146 mm[Hg] Univer sity of [facility] [place] [facility] Diastolic blood 2020-09-06 11:02:00 93 mm[Hg] Unive rsity of pressure [place] [facility] Heart rate 2020-09-06 11:02:00 97 /min [facility] [place] [facility] Respiratory rate 2020-09-06 11:02:00 21 /min [facility] [place] [facility] Oxygen saturation in 2020-09-06 11:02:00 99 /min [facility] Arterial blood by [place] [employer] [facility] Pulse oximetry Branch Body temperature 2020-09-06 10:31:00 36.17 Yamila [facility] [place] [facility] Body height 2020-09-06 09:39:00 167.6 cm [facility] [place] [facility] Body weight 2020-09-06 09:39:00 68.04 kg [facility] [place] [facility] BMI 2020-09-06 09:39:00 24.21 kg/m2 [facility] [place] [facility] Systolic blood 2020-09-06 11:02:00 146 mm[Hg] Univer sity of [facility] [place] [facility] Diastolic blood 2020-09-06 11:02:00 93 mm[Hg] Unive rsity of [facility] [place] [facility] Heart rate 2020-09-06 11:02:00 97 /min [facility] [place] [facility] Respiratory rate 2020-09-06 11:02:00 21 /min [facility] [place] [facility] Oxygen saturation in 2020-09-06 11:02:00 99 /min [facility] Arterial blood by [place] [employer] [facility] Pulse oximetry Branch Body temperature 2020-09-06 10:31:00 36.17 Yamila [facility] [place] [facility] Body height 2020-09-06 09:39:00 167.6 cm [facility] [place] [facility] Body weight 2020-09-06 09:39:00 68.04 kg [facility] [place] [facility] BMI 2020-09-06 09:39:00 24.21 kg/m2 [facility] [place] [facility] Systolic blood 2020-09-02 03:00:00 171 mm[Hg] Univer sity of [facility] [place] [facility] Diastolic blood 2020-09-02 03:00:00 102 mm[Hg] Unive rsity of [facility] [place] [facility] Heart rate 2020-09-02 03:00:00 100 /min [facility] [place] [facility] Body temperature 2020-09-02 03:00:00 36 Yamila [facility] [place] [facility] Respiratory rate 2020-09-02 03:00:00 17 /min [facility] [place] [facility] Oxygen saturation in 2020-09-02 03:00:00 98 /min [facility] Arterial blood by [place] [employer] Pulse oximetry Branch Body weight 2020-09-01 23:02:00 65.772 kg [facility] [place] [facility] BMI 2020-09-01 23:02:00 23.40 kg/m2 [facility] [place] [facility] Systolic blood 2020-09-02 03:00:00 171 mm[Hg] Univer sity of [facility] [place] [facility] Diastolic blood 2020-09-02 03:00:00 102 mm[Hg] Unive rsity of pressure [place] [facility] Heart rate 2020-09-02 03:00:00 100 /min [facility] [place] [facility] Body temperature 2020-09-02 03:00:00 36 Yamila [facility] [place] [facility] Respiratory rate 2020-09-02 03:00:00 17 /min [facility] [place] [facility] Oxygen saturation in 2020-09-02 03:00:00 98 /min [facility] Arterial blood by [employer] [facility] Pulse oximetry Branch Body weight 2020-09-01 23:02:00 65.772 kg [facility] [place] [facility] BMI 2020-09-01 23:02:00 23.40 kg/m2 [facility] [place] [facility] Systolic blood 2020-04-14 13:08:00 143 mm[Hg] Univer sity of [facility] [place] [facility] Diastolic blood 2020-04-14 13:08:00 90 mm[Hg] Unive rsity [facility] [place] [facility] Heart rate 2020-04-14 13:08:00 84 /min [facility] [place] [facility] Body temperature 2020-04-14 13:08:00 36.28 Yamila [facility] [place] [facility] Respiratory rate 2020-04-14 13:08:00 16 /min [facility] [place] [facility] Oxygen saturation in 2020-04-14 13:08:00 99 /min [facility] Arterial blood by [facility] Pulse oximetry Branch Body weight 2020-04-11 11:56:00 63.504 kg [facility] [place] [facility] BMI 2020-04-11 11:56:00 22.60 kg/m2 [facility] [place] [facility] Body height 2020-04-11 11:55:00 167.6 cm [facility] [place] [facility] Systolic blood 2020-04-11 05:30:00 148 mm[Hg] Univer sity of [facility] [place] [facility] Diastolic blood 2020-04-11 05:30:00 88 mm[Hg] Unive rsity of [facility] [place] [facility] Heart rate 2020-04-11 05:30:00 89 /min [facility] [place] [facility] Respiratory rate 2020-04-11 05:30:00 26 /min [facility] [place] [facility] Oxygen saturation in 2020-04-11 05:30:00 100 /min [facility] Arterial blood by [facility] Pulse oximetry Branch Body temperature 2020-04-11 04:03:00 37.17 Yamila [facility] [place] [facility] Body weight 2020-04-11 04:03:00 63.504 kg [facility] [place] [facility] BMI 2020-04-11 04:03:00 22.60 kg/m2 [facility] [place] [facility] Systolic blood 2020-04-11 02:59:52 126 mm[Hg] Univer sity [facility] [place] [facility] Diastolic blood 2020-04-11 02:59:52 94 mm[Hg] Unive rsity of pressure [place] [facility] Heart rate 2020-04-11 02:59:52 104 /min [facility] [place] [facility] Body temperature 2020-04-11 02:59:52 36.56 Yamila [facility] [place] [facility] Respiratory rate 2020-04-11 02:59:52 19 /min [facility] [place] [facility] Oxygen saturation in 2020-04-11 02:59:52 98 /min [facility] Arterial blood by [place] [employer] [facility] Pulse oximetry Branch Body weight 2020-04-11 01:37:00 63.504 kg [facility] [place] [facility] BMI 2020-04-11 01:37:00 22.60 kg/m2 [facility] [place] [facility] Systolic blood 2020-04-10 04:53:11 150 mm[Hg] Univer sity of [facility] [place] [facility] Diastolic blood 2020-04-10 04:53:11 101 mm[Hg] Unive rsity [facility] [place] [facility] Heart rate 2020-04-10 04:53:11 121 /min [facility] [place] [facility] Respiratory rate 2020-04-10 04:53:11 16 /min [facility] [place] [facility] Oxygen saturation in 2020-04-10 04:53:11 99 /min [facility] Arterial blood by [facility] Pulse oximetry Branch Body temperature 2020-04-10 04:00:00 36.44 Yamila [facility] [place] [facility] Body weight 2020-04-10 04:00:00 68.04 kg [facility] [place] [facility] BMI 2020-04-10 04:00:00 24.21 kg/m2 [facility] [place] [facility] Systolic blood 2020-02-25 18:30:00 164 mm[Hg] Univer sity of [facility] [place] [facility] Diastolic blood 2020-02-25 18:30:00 112 mm[Hg] Unive rsity of [facility] [place] [facility] Heart rate 2020-02-25 18:30:00 107 /min [facility] [place] [facility] Respiratory rate 2020-02-25 18:30:00 23 /min [facility] [place] [facility] Oxygen saturation in 2020-02-25 18:30:00 98 /min [facility] Arterial blood by [facility] Pulse oximetry Branch Body temperature 2020-02-25 18:20:00 36.89 Yamila [facility] [place] [facility] Body height 2020-02-25 18:20:00 167.6 cm [facility] [place] [facility] Body weight 2020-02-25 18:20:00 68.04 kg [facility] [place] [facility] BMI 2020-02-25 18:20:00 24.21 kg/m2 [facility] [place] [facility] Systolic blood 2019-07-13 03:12:00 125 mm[Hg] Univer sity of pressure [facility] Diastolic blood 2019-07-13 03:12:00 81 mm[Hg] Unive rsity of pressure [facility] Heart rate 2019-07-13 03:12:00 75 /min [facility] Body temperature 2019-07-13 03:12:00 36.72 Yamila [facility] Respiratory rate 2019-07-13 03:12:00 18 /min [facility] Oxygen saturation in 2019-07-13 03:12:00 99 /min [facility] Arterial blood by [facility] Pulse oximetry [place] Body weight 2019-07-12 21:01:00 72.576 kg [facility] BMI 2019-07-12 21:01:00 25.82 kg/m2 [facility] Procedures Procedure Date / Time Performing Clinician Source Performed XR CHEST 1 VW 2021-09-22 01:58:50 Georgia Estrada [facility] MAGNESIUM 2021-09-22 01:43:00 Georgia Estrada [facility] TROPONIN I 2021-09-22 01:43:00 Georgia Estrada [facility] COMP. METABOLIC PANEL 2021-09-22 01:43:00 Georgia Estrada [facility] ([id number]) [facility] POCT TEST 2021-09-22 01:43:00 Georgia Estrada [facility] N-TERMINAL PRO-BNP 2021-09-22 01:43:[address] [facility] [place] [place] [facility] CBC WITH DIFF 2021-09-22 01:42:00 Georgia Estrada [facility] URINALYSIS 2021-09-22 01:42:00 Georgia Estrada [facility] NOTICE OF PRIVACY 2021-09-22 01:07:45 Doctor Unassigned, No [facility] PRACTICES Name [facility] CONSENT/REFUSAL FOR 2021-09-22 01:06:43 [facility] CT CHEST PULMONARY 2021-03-25 11:45:06 Arnold Coughlin [facility] ANGIOGRAM Medical Branch TROPONIN I 2021-03-25 11:31:00 Arnold Coughlin [facility] D-DIMER 2021-03-25 10:22:00 Arnold Coughlin [facility] LIPASE 2021-03-25 09:35:00 Arnold Coughlin [facility] TROPONIN I 2021-03-25 09:35:00 Arnold Coughlin [facility] COMP. METABOLIC PANEL 2021-03-25 09:35:00 Arnold Coughlin [facility] ([id number]) Medical Branch CBC WITH DIFF 2021-03-25 09:35:00 Arnold Coughlin [facility] HB ECG ROUTINE & RHYTHM 2021-03-25 08:52:04 Arnold Coughlin [facility] ACTIVATED PARTIAL 2020-11-23 10:36:00 Mon[facility] MAGNESIUM 2020-11-23 05:05:00 [facility] BASIC METABOLIC PANEL 2020-11-23 05:05:00 Monique [facility] (NA, K, CL, CO2, Medical Branch GLUCOSE, BUN, CREATININE, CA) CBC WITH DIFF 2020-11-23 05:05:00 [facility] ACTIVATED PARTIAL 2020-11-23 05:05:00 [facility] CT ANGIOGRAM CHEST 2020-11-22 20:21:07 [facility] POCT TEST 2020-11-22 19:43:00 Rosmery Mai [facility] TROPONIN I 2020-11-22 19:38:00 [facility] FREE T4 2020-11-22 19:38:00 [facility] THYROID STIMULATING 2020-11-22 19:38:00 [facility] HORMONE [facility] LIPID PANEL 2020-11-22 19:38[id number] Branch CHOLESTEROL, TRIGLYCERIDES, HDL) COVID-19 (ID NOW RAPID 2020-11-22 19:18:00 Carmen Lott [facility] TESTING) Medical [place] TROPONIN I 2020-11-22 14:45:00 Sergei SadiAnkit [facility] XR CHEST 1 VW 2020-11-22 12:41:09 Miguelito Salter [facility] URINE DRUG (IMMUNOASSAY) 2020-11-22 11:53:00 Miguelito Salter [facility] SCREEN URINALYSIS 2020-11-22 11:53:00 Miguelito Salter [facility] CK (CREATINE KINASE) + 2020-11-22 11:52:00 Miguelito Salter [facility] Branch LIPASE 2020-11-22 11:52:00 Miguelito Salter [facility] TROPONIN I 2020-11-22 11:52:00 Miguelito Salter [facility] COMP. METABOLIC PANEL 2020-11-22 11:52:00 Miguelito Salter [facility] ([id number]) Medical Branch ETHANOL 2020-11-22 11:52:00 Miguelito Salter [facility] SERUM DRUG (IMMUNOASSAY) 2020-11-22 11:52:00 Miguelito Salter [facility] SCREEN CBC WITH DIFF 2020-11-22 11:52:00 Miguelito Salter [facility] GLYCOSYLATED HEMOGLOBIN 2020-11-22 11:52:00 [facility] (A1C) [facility] D-DIMER 2020-11-22 11:52:00 Miguelito Salter [facility] POCT TEST 2020-10-22 10:12:00 Chaka Steinberg [facility] URINE DRUG (IMMUNOASSAY) 2020-10-22 10:10:00 Chaka Steinberg [facility] SCREEN URINALYSIS 2020-10-22 10:10:00 Chaka Steinberg [facility] TROPONIN I 2020-10-22 09:34:00 Chaka Steinberg [facility] CT ABDOMEN PELVIS W 2020-10-22 08:02:55 Chaka Steinberg [facility] CONTRAST Medical Branch XR CHEST 1 VW 2020-10-22 07:40:59 Chaka Steinberg [facility] COVID-19 (ID NOW RAPID 2020-10-22 07:38:00 Chaka Steinberg [facility] TESTING) Medical Branch LIPASE 2020-10-22 07:37:00 Chaka Steinberg [facility] TROPONIN I 2020-10-22 07:37:00 Cece Steinbergian Robin [facility] HEPATIC FUNCTION PANEL 2020-10-22 07:37:00 Chaka Steinberg [facility] ([id number]) (ALB,T.PRO,BILI Medical Branch T,BU/BC,ALT,AST,ALK PHOS) BASIC METABOLIC PANEL 2020-10-22 07:37:00 Chaka Steinberg [facility] (NA, K, CL, CO2, Medical Branch GLUCOSE, BUN, CREATININE, CA) ETHANOL 2020-10-22 07:37:00 Chaka Steinberg [facility] CBC WITH DIFF 2020-10-22 07:37:00 Cece Steinbergian Robin [facility] CREATINE KINASE 2020-10-15 14:58:00 Sergei [facility] LIPASE 2020-10-15 14:58:00 Sergei [facility] TEST, SERUM 2020-10-15 14:58:00 [facility] TROPONIN I 2020-10-15 14:58:00 Sergei [facility] HEPATIC FUNCTION PANEL 2020-10-15 14:58:00 Sergei, [facility] ([id number]) (ALB,T.PRO,BILI Medical Branch T,BU/BC,ALT,AST,ALK PHOS) BASIC METABOLIC PANEL 2020-10-15 14:58:00 Sergei [facility] (NA, K, CL, CO2, Medical Branch GLUCOSE, BUN, CREATININE, CA) N-TERMINAL PRO-BNP 2020-10-15 14:58:00 Sergei [facility] XR CHEST 2 VW 2020-10-15 13:47:20 Sergei [facility] CT HEAD WO CONTRAST 2020-10-15 13:37:33 Sergei [facility] CREATINE KINASE 2020-10-15 13:27:00 Sergei [facility] LIPASE 2020-10-15 13:27:00 Sergei [facility] TROPONIN I 2020-10-15 13:27:00 Sergei [facility] N-TERMINAL PRO-BNP 2020-10-15 13:27:00 Sergei [facility] POCT TEST 2020-10-13 11:13:[address] [facility] COMP. METABOLIC PANEL 2020-10-13 11:06:00 Gage Torres [facility] ([id number]) [facility] EXTRA TUBE ORANGE 2020-10-13 11:06:00 Gage Torres [facility] EXTRA TUBE LT. GREEN 2020-10-13 11:06:00 Gage Torres [facility] URINE DRUG (IMMUNOASSAY) 2020-10-13 11:01:00 Gage Torres [facility] SCREEN URINALYSIS 2020-10-13 11:01:00 Gage Torres [facility] CBC WITH DIFF 2020-10-13 10:41:00 Gage Torres [facility] XR CHEST 1 VW 2020-10-13 10:40:00 Gage Torres [facility] PROTHROMBIN TIME / INR 2020-10-13 10:26:00 Gage Torres [facility] D-DIMER 2020-10-13 10:26:00 Gage Torres [facility] ACTIVATED PARTIAL 2020-10-13 10:26:00 Gage Torres [facility] THRMPLAS CHER [facility] TROPONIN I 2020-10-13 10:09:00 Gage Torres [facility] THYROID STIMULATING 2020-10-13 10:09:00 Gage Torres [facility] HORMONE [facility] Branch ETHANOL 2020-10-13 10:09:00 Gage Torres [facility] EXTRA TUBE ORANGE 2020-10-13 10:09:00 Gage Torres [facility] EXTRA TUBE LT. GREEN 2020-10-13 10:09:00 Gage Torres [facility] LIPASE 2020-10-13 10:09:00 Gage Torres [facility] COVID-19 (ID NOW RAPID 2020-10-13 10:06:00 Ggae Torres [facility] TESTING) Medical Branch LIPASE 2020-09-17 03:02:00 [facility] TEST, SERUM 2020-09-17 03:02:00 [facility] 2020-09-17 03:02:00 William, [facility] ([id number]) (ALB,T.PRO,BILI [facility] T,BU/BC,ALT,AST,ALK PHOS) BASIC METABOLIC PANEL 2020-09-17 03:02:00 William, [facility] (NA, K, CL, CO2, Medical Branch GLUCOSE, BUN, CREATININE, CA) CBC WITH DIFF 2020-09-17 03:02:00 [facility] PELVIS W 2020-09-06 11:31:59 Arnold Coughlin [facility] CONTRAST [facility] XR CHEST 1 VW 2020-09-06 10:03:21 Arnold Coughlin [facility] CBC WITH DIFF 2020-09-06 09:58:00 Arnold Coughlin [facility] LIPASE 2020-09-06 09:57:00 Arnold Coughlin [facility] TROPONIN I 2020-09-06 09:57:00 Arnold Coughlin [facility] COMP. METABOLIC PANEL 2020-09-06 09:57:00 Arnold Coughlin [facility] ([id number]) Medical Branch N-TERMINAL PRO-BNP 2020-09-06 09:57:00 Arnold Coughlin [facility] D-DIMER 2020-09-02 02:24:00 Ana Sommers [facility] COVID-19 (ID NOW RAPID 2020-09-02 00:10:00 Ana Sommers [facility] TESTING) Medical Branch LIPASE 2020-09-02 00:07:00 Ana Sommers [facility] TROPONIN I 2020-09-02 00:07:00 Ana Sommers [facility] THYROID STIMULATING 2020-09-02 00:07:00 Ana Sommers [facility] HORMONE [facility] HEPATIC FUNCTION PANEL 2020-09-02 00:07:00 Ana Sommers [facility] ([id number]) (ALB,T.PRO,BILI [facility] T,BU/BC,ALT,AST,ALK PHOS) BASIC METABOLIC PANEL 2020-09-02 00:07:00 Ana Sommers [facility] (NA, K, CL, CO2, Medical Branch GLUCOSE, BUN, CREATININE, CA) CBC WITH DIFF 2020-09-02 00:07:00 Ana Sommers [facility] N-TERMINAL PRO-BNP 2020-09-02 00:07:00 Ana Sommers [facility] XR CHEST 1 VW 2020-09-02 00:02:14 Ana Sommers [facility] NOTICE OF PRIVACY 2020-09-01 22:34:26 Doctor Unassigned, No [facility] PRACTICES Name Medical Branch CONSENT/REFUSAL FOR 2020-09-01 22:34:08 Doctor Unassigned, No [facility] DIAGNOSIS AND TREATMENT Name Medical Branch BASIC METABOLIC PANEL 2020-04-12 10:18:00 Buddy Montes [facility] (NA, K, CL, CO2, Medical Branch GLUCOSE, BUN, CREATININE, CA) CBC WITH DIFF 2020-04-12 10:18:00 Buddy Montes [facility] XR FOREARM 2 VW LEFT 2020-04-11 17:54:00 [facility] XR HAND 3+ VW LEFT 2020-04-11 17:54:[address] [facility] [place] [facility] XR WRIST 3+ VW LEFT 2020-04-11 17:54:00 Jennifer [facility] XR ANKLE 3+ VW LEFT 2020-04-11 12:47:35 Clay Garay [facility] XR FOOT 3+ VW LEFT 2020-04-11 12:47:35 Clay Garay [facility] XR TIBIA FIBULA 2 VW 2020-04-11 12:47:35 Clay Garay [facility] CT TRAUMA HEAD WO 2020-04-11 12:41:26 Clay Garay [facility] CONTRAST [facility] CT TRAUMA THORAX W 2020-04-11 12:41:26 Clay Garay [facility] CT TRAUMA CERVICAL SPINE 2020-04-11 12:41:26 Tanisha [facility] CONTRAST Medical Branch CT TRAUMA THORACIC SPINE 2020-04-11 12:41:26 Tanisha [facility] CONTRAST Medical [place] CT TRAUMA ABDOMEN PELVIS 2020-04-11 12:41:26 Tanisha [facility] W CONTRAST Medical Branch CT TRAUMA LUMBAR SPINE 2020-04-11 12:41:26 Clay Garay [facility] CONTRAST [facility] HB ABO GROUPING 2020-04-11 12:20:00 Sanjay [facility] BASIC METABOLIC PANEL 2020-04-11 12:17:00 John Grace [facility] (NA, K, CL, CO2, [facility] GLUCOSE, BUN, CREATININE, CA) CBC WITHOUT DIFF 2020-04-11 12:17:00 Sanjay [facility] PROTHROMBIN TIME / INR 2020-04-11 12:17:00 Sanjay [facility] ACTIVATED PARTIAL 2020-04-11 12:17:[address] [facility] THRMPLAS CHER [facility] EKG-12 LEAD 2020-04-11 04:23:07 Gage Torres [facility] TROPONIN I 2020-04-11 01:53:00 Vamshi [facility] EKG-12 LEAD 2020-04-11 01:46[facility]16 [facility] - DRUG SCREEN 2020-04-10 05:19:00 Singer [facility] TRIAGE [facility] XR CHEST 1 VW 2020-04-10 04:26:18 Singer [facility] COVID-19 (ID NOW RAPID 2020-04-10 04:15:00 Singer Wiley [facility] TESTING) Medical Branch D-DIMER 2020-04-10 04:14:00 Singer [facility] LIPASE 2020-04-10 04:11:00 Singer [facility] MAGNESIUM 2020-04-10 04:11:00 [facility] TROPONIN I 2020-04-10 04:11:00 Singer [facility] COMP. METABOLIC PANEL 2020-04-10 04:11:00 Wiley Gay [facility] ([id number]) [facility] CBC WITH DIFF 2020-04-10 04:11:00 Singer [facility] N-TERMINAL PRO-BNP 2020-04-10 04:11:00 Singer Wiley [facility] EKG-12 LEAD 2020-04-10 03:55:43 Singer [facility] NOTICE OF PRIVACY 2020-04-10 03:51:52 Doctor Unassigned, No [facility] PRACTICES Name Medical Branch CONSENT/REFUSAL FOR 2020-04-10 03:51:01 [facility]assigned, [facility] Name Medical Branch COMP. METABOLIC PANEL 2020-02-25 18:39:00 Estrada, [facility] ([id number]) [facility] CBC WITH DIFF 2020-02-25 18:39:00 Georgia Estrada [facility] EKG-12 LEAD 2020-02-25 18:27:17 Estrada Georgia Ortega [facility] CT ABDOMEN PELVIS W 2019-07-13 00:47:46 Diego Shelby B [facility] POCT TEST 2019-07-13 00:29:00 Lucia Diego B [facility] LIPASE 2019-07-12 23:07:00 Diego Shelby B [facility] COMP. METABOLIC PANEL 2019-07-12 23:07:00 Diego Shelby B Unive [facility] ([id number]) [facility] CBC WITH DIFFERENTIAL 2019-07-12 23:07:00 Lucia Diego B [facility] URINALYSIS 2019-07-12 23:07:00 Diego Shelby B [facility] XR CHEST 1 VW 2019-03-06 16:21:04 Andressa Christianson [facility] Encounters Start End Encounter Admission Attending Care Care Encounter Source Date/Time Date/Time Type Type Clinicians Facility Department ID 2021 Outpatient CHRISTUS VARMA [id number] [facility]STU 20:48:43 -[id number] [facility] 2021 Outpatient CHRISTUS CHRISTUS [id number] CHRISTU 20:48:43 -[id number] [facility] 2021-09-21 2021-09-21 Emergency Rena Georgia Ortega [facility] 1.2.840. [id number] Univers 20:28:00 22:36:00 [facility] 350.1.13.10 [facility] 4.2.7.2.686 [facility] [id number] [facility] 084 Branch 2021-09-21 2021-09-21 Emergency X Villa VAZQUEZ [facility] ERT [id number] Univers 20:28:00 22:36[facility]00 [facility] 2021-03-25 2021-03-25 Emergency [facility] [id number] Univers 03:49:00 11:27:00 Arnold Huynh 350.1.13.[address] [place] [address] [id number] [facility] 084 Branch 2021-03-25 2021-03-25 Emergency X ELIDA [facility] ERT [id number] Univers 03:49:00 03:49:00 WAKILI ity of [facility] 2020-12-01 2020-12-01 Letter Melanie Kolb 1.2.840.114 [id number] 00:00:00 00:00:00 (Out) Adaleva Julian 350.1.13.10 [place] [address].7.2.68 [id number] 2020-12-01 2020-12-01 Letter Melanie Kolb 1.2.840.114 [id number] Univers 00:00:00 00:00:00 (Out) Adal Julian 350.1.13.10 it y of [facility] 4.2.7.2.[address] [place] [address] [id number] [place] 628920 Branch 2020-11-22 2020-11-23 [facility] 1.2.840.11 [id number] 06:16:00 14:46:00 Encounter SergeiSadiAnkit Julian 350.1.13.10 [place] [address].2.[facility] [id number] [facility] 2020-11-22 2020-11-23 [facility] 1.2.840.11 [id number] Univers 06:16:00 14:46:00 Encounter Sadi MaiCindyChris Eliel 350.1.13.10 ity [place] [address] [place] [address] [id number] [place] 628920 Branch 2020-11-22 2020-11-23 Outpatient X [facility] [id number] Univers 06:16:00 14:46:00 ADAL ity [facility] 2020-10-22 2020-10-22 Emergency Chaka Steinberg TRAUMA 1.2.840.114 [id number] 02:04:00 07:32:00 W CENTER 350.1.13.10 4.2.7.2.686 [id number] 2020-10-22 2020-10-22 Emergency Chaka Steinberg TRAUMA 1.2.840.114 [id number] Univers 02:04:00 07:32:00 W CENTER 350.1.13.10 [place] [id number] [address] 2020-10-22 2020-10-22 Emergency X CHAKA STEINBERG [facility] ERT [id number] Univers 02:04:00 07:32:00 ity of [facility] 2020-10-19 2020-10-20 Emergency TRAUMA [id number] 23:59:00 00:57:00 CENTER 350.1.13.10 4.2.7.2.686 [id number] 014 2020-10-19 2020-10-20 Emergency TRAUMA 1.2.827.630 [id number] Univers 23:59:00 00:57:00 CENTER 350.1.13.10 [place] [id number] [address] 2020-10-19 2020-10-20 Emergency X UNKNOWN, [facility] ERT [id number] Univers 23:59:00 00:57:00 ATTENDING ity of [facility] 2020-10-15 2020-10-15 Emergency Sergei, TRAUMA 1.2.527.063 [id number] 0004 07:37:00 15:30:00 [facility] CENTER 350.1.13.10 4.2.7.2.686 [id number] 014 2020-10-15 2020-10-15 Emergency Sergei, TRAUMA 1.2.864.786 [id number] 0004 Univers 07:37:00 15:30:00 [facility] CENTER 350.1.13.10 [place] [id number] [address] 2020-10-15 2020-10-15 Emergency X [facility] ERT [id number] Univers 07:28:00 07:28:00 ity [facility] 2020-10-13 2020-10-13 Emergency Melissa, Gage E TRAUMA 1.2.840 .114 [id number] 04:42:00 11:13:00 Miguelito Salter [facility] 350.1.13.10 Moises Anderson 4.2.7.2.[id number] [facility] 2020-10-13 2020-10-13 Emergency Melissa, Gage E TRAUMA 1.2.840 .114 [id number] Univers 04:42:00 11:13:00 Miguelito Salter [facility] 350.1.13.10 ity Moises Anderson 4.2.7.2.686 [place] [id number] [address] 2020-10-13 2020-10-13 Emergency X MELISSA, [facility] ERT [id number] Univers 04:42:00 04:42:00 GAGE canales [facility] 2020-09-16 2020-09-17 Emergency William, [facility] 1.2.910.261 [id number] 21:39:00 00:11:00 Hoang Huynh 350.1.13.10 [place] 4.2.7.2.686 [place] [id number] [facility] 2020-09-16 2020-09-17 Emergency William, [facility] 1.2.754.445 [id number] Univers 21:39:00 00:11:00 Hoang Huynh 350.1.13.10 i ty of [place] 4.2.7.2.[address] [place] [id number] 2020-09-16 2020-09-16 Emergency X WILLIAM, [facility] ERT [id number] Univers 21:39:00 21:39:00 DARRELSEVEN canales [facility] 2020-09-12 2020-09-12 Emergency X , [facility] ERT [id number] Univers 05:03:00 06:28:00 WILEY parker [facility] 2020-09-06 2020-09-06 Emergency [facility] 1.2.847.227 [id number] 04:37:00 07:13:00 Arnold Huynh 350.1.13.10 [place] 4.2.7.2.686 [place] [id number] 2020-09-06 2020-09-06 Emergency [facility] 1.2.192.171 [id number] Univers 04:37:00 07:13:00 [facility] María KnowlesNormal 350.1.13.10 ity of [place] 4.2.7.2.686 [facility] [id number] [facility] 084 Branch 2020-09-06 2020-09-06 Emergency X [facility] ERT [id number] Univers 04:37:00 07:13:00 [facility] ity [facility] 2020-09-01 2020-09-01 Emergency [facility] 1.2.405.703 [id number] Univers 17:06:00 21:39:00 Ana Shepherd Lino 350.1.13.10 ity of [place] 4.2.7.2.6 [facility] [id number] [facility] 084 Branch 2020-09-01 2020-09-01 Emergency [facility] 1.2.675.957 [id number] 17:06:00 21:39:00 Ana Shepherd Lino 350.1.13.10 [place] 4.2.7.2.6 [place] [id number] 2020-09-01 2020-09-01 Emergency X [facility] ERT [id number] Univers 16:36:00 16:36:00 ity of [facility] 2020-09-01 2020-09-01 Orders Doctor GOODWIN 1.2.840.114 [id number] Univers 00:00:00 00:00:00 Only Unassigned, ELIEL 350.1.13.10 ity of [facility] 4.2.7.2.686 [facility] [id number] [facility] 009 Branch 2020-09-01 2020-09-01 Orders Doctor GOODWIN 1.2.840.114 [id number] 00:00:00 00:00:00 Only Unassigned, ELIEL 350.1.13.10 [facility] 4.2.7.2.686 [id number] 009 2020-04-15 2020-04-15 Transition Francisco Price 1.2.840.114 [id number] Univers 00:00:00 00:00:00 of Care Rafaela Cavazosy 350.1.13.10 i ty of [place] [id number] [facility] 403 Branch 2020-04-15 2020-04-15 Transition Francisco Price 1.2.840.114 [id number] 00:00:00 00:00:00 of Care Rafaela Cavazosy 350.1.13.10 [place] 4.2.7.2.686 [id number] 2020-04-11 2020-04-14 [facility] Melanie Brewer 1.2.593.397 [id number] Univers 06:55:00 20:35:00 Encounter Pedrito Julian 350.1.13.10 ity of Hospital 4.2.7.2.686 Vishal as [id number] [facility] 098 Branch 2020-04-11 2020-04-11 Emergency T [facility] STR [id number] Univers 06:55:00 06:55:00 ity of [facility] 2020-04-10 2020-04-11 Emergency Melissa, TRAUMA 1.2.417.038 [id number] Univers 23:04:00 01:06:00 Gage SANDY 350.1.13.10 [place] [id number] [facility] 014 Branch 2020-04-10 2020-04-10 Emergency X MELISSA, [facility] ERT [id number] Univers 23:04:00 23:04:00 GAGE canales of [facility] 2020-04-10 2020-04-10 Emergency Vamshi, Opal TRAUMA 1.2.840. 114 [id number] Univers 20:37:00 22:02:00 Pedrito Rosado 350.1.13.10 [place] [id number] [facility] 014 Branch 2020-04-10 2020-04-10 Emergency X MIGUEL, [facility] ERT [id number] Univers 20:37:00 20:37:00 PEDRITO canales [facility] 2020-04-09 2020-04-10 Emergency [facility] 1.2.330.281 [id number] Univers 22:56:00 00:49:00 Wiley Huynh 350.1.13.10 i ty [place] [id number] [address] 2020-04-09 2020-04-09 Emergency X [facility] ERT [id number] Univers 22:49:00 22:49:00 WILEY canales [facility] 2020-02-25 2020-02-25 Emergency [facility] [id number] Univers 13:23:00 14:09:00 Georgia Huynh 350.1.13.10 i ty [place] [id number] [address] 2020-02-25 2020-02-25 Emergency X [facility] ERT [id number] Univers 13:23:00 13:23:00 GEORGIA canales [facility] 2019-07-12 2019-07-12 Emergency Unknown, Attending TRAUMA 1.2.8 [id number] Univers 15:04:04 21:14:00 Gladys Marley [facility] 350.1.13. 10 [place] [id number] [facility] 014 Branch 2019-07-12 2019-07-12 Emergency [facility] [id number] Univers 15:04:04 21:14:00 GLADYS canales [facility] 2019-03-06 2019-03-06 Hospital [facility] 1.2.840.114 [id number] Univers 11:16:49 23:59:00 Encounter Andressa Magana Ishmael [facility] 350.1.13.10 ity of [place] [id number] [facility] [address] [place] Results Test Description Test Time Test Comments Results Result Comments Source TROPONIN I 2021-09-22 02:32:27 Test Item Value Reference Range Interpretation Comme nts TROPONIN I (test code = 0.006 ng/mL See_Comment [Au tomated message] The 0669800792) system which Flirq nerated this result tra nsmitted reference range [...] biotin. Lab Interpretation Normal (test code = 57156-4) [facility] [id number] 02:29:25 Test Item Value Reference Range Interpretation Comments NT-proBNP (test code 77 pg/mL See_Comment [Autom ated = 0225598178) message] The system which generated this result transmitted reference range : <=125. The reference range was not used to interpret this result as normal/abnormal . PAULA (test code = PAULA) Biotin has been reported to cause a negative bias, interpret results relative to patient's use of biotin. Lab Interpretation Normal (test code = 62283-0) [facility] WITH [id number] 02:21:26 Test Item Value Reference Range Interpretation Comments WBC (test code = See_Comment [Automated message] The 6690-2) system which Flirq nerated this result tra nsmitted reference range : 4.30 - 11.10 10*3/?L. The reference range was not used to interpr et this result as normal/abnormal . RBC (test code = See_Comment [Automated message] The 789-8) system which Flirq nerated this result tra nsmitted reference range [...] RDW-SD (test code 45.0 fL 39.0-49.9 = 18178-2) RDW-CV (test code 13.6 % 12.0-15.5 = 788-0) PLT (test code = See_Comment [Automated message] The 777-3) system which Flirq nerated this result tra nsmitted reference range : 166 - 358 10*3/?L. Th e reference range was not used to interpr et this result as normal/abnormal . MPV (test code = 10.5 fL 9.5-12.9 31091-3) IPF % (test code 3.1 % 1.3-7.7 Platelet co unt measured = 8051455879) by fluorescenc e method. NRBC/100 WBC See_Comment [Automated mes joe] The (test code = system which Flirq nerated 7908153870) this result tra nsmitted reference range : 0.0 - 10.0 /100 WBCs. The reference range was not used to interpr et this result as normal/abnormal . NRBC x10^3 (test <0.01 See_Comment [Automated message] The code = system which Flirq nerated 4694431489) this result tra nsmitted reference range : 10*3/?L. The re ference range was not u sed to interpret this result as normal/abnormal . GRAN MAT (NEUT) % 75.4 % (test code = 770-8) IMM GRAN % (test 0.50 % code = 8215865509) LYMPH % (test 15.8 % code = 736-9) MONO % (test code 6.8 % = 5905-5) EOS % (test code 0.9 % = 713-8) BASO % (test code 0.6 % = 706-2) GRAN MAT 6.46 10*3/uL 1.88-7.09 x10^3(ANC) (test code = 9047620666) IMM GRAN x10^3 0.04 10*3/uL 0.00-0.06 (test code = 5344094030) LYMPH x10^3 (test 1.35 10*3/uL 1.32-3.29 code = 731-0) MONO x10^3 (test 0.58 10*3/uL 0.33-0.92 code = 742-7) EOS x10^3 (test 0.08 10*3/uL 0.03-0.39 code = 711-2) BASO x10^3 (test 0.05 10*3/uL 0.01-0.07 code = 704-7) [facility]06 Test Item Value Reference Range Interpretation Comments MAGNESIUM (test code = 7043523229) 2.0 mg/dL 1.7-2.4 Lab Interpretation (test code = Normal 44001-3) [facility] (43384)2021-09-22 02:20:45 Test Item Value Reference Range Interpretation Comments NA (test code = 136 mmol/L 135-145 2348208743) K (test code = 4.7 mmol/L 3.5-5.0 6266669832) CL (test code = 106 mmol/L 98-108 3935708840) CO2 TOTAL (test code = 17 mmol/L 23-31 L 5427851185) AGAP (test code = 2-16 7003251903) BUN (test code = 10 mg/dL 7-23 5492827809) GLUCOSE (test code = 99 mg/dL 70-110 2974410729) CREATININE (test code = 0.50 mg/dL 0.50-1.04 0852845972) TOTAL BILI (test code = 0.9 mg/dL 0.1-1.7 0334015314) CALCIUM (test code = 8.9 mg/dL 8.6-10.6 8190615305) T PROTEIN (test code = 8.3 g/dL 6.3-8.2 H 9801043414) ALBUMIN (test code = 4.8 g/dL 3.5-5.0 4013381229) ALK PHOS (test code = 66 U/L 34-122 5866795502) ALTv (test code = 22 U/L 5-35 1742-6) AST(SGOT) (test code = 40 U/L 13-40 7024077218) eGFR (test code = mL/min/1.73m2 1770288724) PAULA (test code = PAULA) Association of [...] tests). Lab Interpretation Abnormal (test code = 30847-0) [facility] [id number] 01:43:00 Test Item Value Reference Range Interpretation Comments POCT PREG (test code = 1605) negative On board controls acceptable with present C Line (test code = 3574) POCT PREG LOT # (test code = 3575) [id number] POCT PREG TEST DATE (test 2022-08-23 code = 3576) Lab Interpretation (test code = Normal 48344-5) [facility]woodTROP[facility] [id number] 12:15:08 Test Item Value Reference Interpretation Comments Range TROPONIN I (test 0.009 ng/mL See_Comment [Automated code = 4583848532) message] The system which generated this result [...] biotin. Lab Interpretation Normal (test code = 82959-2) [facility]woodD-[id number] 10:51:58 Test Item Value Reference Interpretation Comments Range D-DIMER (test code = See_Comment H [Autom ated 2493854127) message] The system which generated this result [...] diagnosis. Lab Interpretation Abnormal (test code = 75157-2) [facility]woodCBC WITH [id number] 10:39:17 Test Item Value Reference Range Interpretation [...] (test code = 51.8 fL 39.0-49.9 H 27870-7) RDW-CV (test code = 15.7 % 12.0-15.5 H 788-0) PLT (test code = See_Comment [Automated 777-3) message] The sy stem which generated this result transmitted reference range : 166 - 358 10*3/ ?L. The reference r micah was not used to interpret this result as normal/abnormal . MPV (test code = 10.2 fL 9.5-12.9 52922-7) IPF % (test code = 1.9 % 1.3-7.7 Platelet count 8040092736) measured by fluorescence method. NRBC/100 WBC (test See_Comment [Automat ed code = 5797402543) message] The system which generated this result transmitted reference range : 0.0 - 10.0 /100 WBCs. The refer ence range was not u sed to interpret th is result as normal/abnormal . NRBC x10^3 (test code <0.01 See_Comment [Auto mated = 5042310447) message] The s ystem which generated this result transmitted reference range : 10*3/?L. The reference range was not used to interpret this result as normal/abnormal . GRAN MAT (NEUT) % 63.4 % (test code = 770-8) IMM GRAN % (test code 0.20 % = 7493445424) LYMPH % (test code = 24.2 % 736-9) MONO % (test code = 10.4 % 5905-5) EOS % (test code = 0.9 % 713-8) BASO % (test code = 0.9 % 706-2) GRAN MAT x10^3(ANC) 3.34 10*3/uL 1.88-7.09 (test code = 0340396154) IMM GRAN x10^3 (test <0.03 0.00-0.06 code = 2622275246) LYMPH x10^3 (test code 1.28 10*3/uL 1.32-3.29 L = 731-0) MONO x10^3 (test code 0.55 10*3/uL 0.33-0.92 = 742-7) EOS x10^3 (test code = 0.05 10*3/uL 0.03-0.39 711-2) BASO x10^3 (test code 0.05 10*3/uL 0.01-0.07 = 704-7) PLT ESTIMATE (test Normal Normal code = 9317-9) Lab Interpretation Abnormal (test code = 22680-2) [facility] hospitalBIJALEwa [id number] 10:26:56 Test Item Value Reference Interpretation Comments Range TROPONIN I (test 0.011 ng/mL See_Comment [Automated code = 5823779961) message] The system which generated this result [...] biotin. Lab Interpretation Normal (test code = 36176-9) [facility]. METABOLIC PANEL (67934)2021-03-25 10:15:34 Test Item Value Reference Range Interpretation Comments NA (test code = 141 mmol/L 135-145 9352131591) K (test code = 3.7 mmol/L 3.5-5.0 0742667719) CL (test code = 108 mmol/L 98-108 7891962689) CO2 TOTAL (test code = 23 mmol/L 23-31 4494612343) AGAP (test code = 2-16 1910902387) BUN (test code = 6 mg/dL 7-23 L 9164742823) GLUCOSE (test code = 108 mg/dL 70-110 6709146206) CREATININE (test code = 0.65 mg/dL 0.50-1.04 7826535050) TOTAL BILI (test code = 0.4 mg/dL 0.1-1.9 4067934644) CALCIUM (test code = 8.7 mg/dL 8.6-10.6 8524837849) T PROTEIN (test code = 7.9 g/dL 6.3-8.2 9374198406) ALBUMIN (test code = 4.3 g/dL 3.5-5.0 9662495897) ALK PHOS (test code = 72 U/L 34-122 9134824256) ALTv (test code = 31 U/L 5-35 1742-6) AST(SGOT) (test code = 45 U/L 13-40 H 0523597127) eGFR (test code = mL/min/1.73m2 0603861525) PAULA (test code = PAULA) Association of [...] tests). Lab Interpretation Abnormal (test code = 01876-1) [facility]woodLIPASE2021-09-30 10:15:34 Test Item Value Reference Range Interpretation Comments LIPASE (test code = 6829062649) 54 U/L 0-220 Lab Interpretation (test code = Normal 95625-6) [facility]woodaPTT (for use with Heparin Drip)2020-11-23 11:10:10 Test Item Value Reference Range Interpretation Comments APTT Patient (test code See_Comment H [Au tomated message] = 3173-2) The system [employer] generated this result transmitted ref erence range: 26 - 36 Seconds. The reference range was not used to int erpret this result as normal/abnormal . Lab Interpretation (test Abnormal code = 85902-8) [facility]woodBasic Metabolic Panel (NA, K, CL, CO2, GLUCOSE, BUN, CREATININE, CA)2020-11-23 05:36:05 Test Item Value Reference Range Interpretation Comments NA (test code = 133 mmol/L 135-145 L 7326709328) K (test code = 3.6 mmol/L 3.5-5.0 4493816410) CL (test code = 105 mmol/L 98-108 2018209734) CO2 TOTAL (test code = 24 mmol/L 23-31 2454027621) AGAP (test code = 2-16 3709757144) BUN (test code = 11 mg/dL 7-23 5387860862) GLUCOSE (test code = 104 mg/dL 70-110 7012133417) CREATININE (test code = 0.64 mg/dL 0.50-1.04 5566127709) CALCIUM (test code = 8.4 mg/dL 8.6-10.6 L 9972407537) eGFR (test code = mL/min/1.73m2 5660063331) PAULA (test code = PAULA) Association of [...] tests). Lab Interpretation Abnormal (test code = 45368-4) [facility] KingwoodMagnesium [id number] 05:36:05 Test Item Value Reference Range Interpretation Comments MAGNESIUM (test code = 6009809252) 2.1 mg/dL 1.7-2.4 Lab Interpretation (test code = Normal 35737-8) [facility]woodaPTT (for use with Heparin Drip)2020-11-23 05:25:43 Test Item Value Reference Range Interpretation Comments APTT Patient (test code See_Comment H [Au tomated message] = 3173-2) The system [employer] generated this result transmitted ref erence range: 26 - 36 Seconds. The reference range was not used to int erpret this result as normal/abnormal . Lab Interpretation (test Abnormal code = 45694-3) [facility] with [id number] 05:11:43 Test Item Value Reference Range Interpretation [...] RDW-SD (test code = 43.7 fL 39.0-49.9 16842-8) RDW-CV (test code = 13.1 % 12.0-15.5 788-0) PLT (test code = See_Comment [Automated 777-3) message] The sy stem which generated this result transmitted reference range : 166 - 358 10*3/ ?L. The reference r micah was not used to interpret this result as normal/abnormal . MPV (test code = 9.2 fL 9.5-12.9 L 60231-7) NRBC/100 WBC (test See_Comment [Automat ed code = 3277042267) message] The system which generated this result transmitted reference range : 0.0 - 10.0 /100 WBCs. The refer ence range was not u sed to interpret th is result as normal/abnormal . NRBC x10^3 (test code <0.01 See_Comment [Auto mated = 4712946651) message] The s ystem which generated this result transmitted reference range : 10*3/?L. The reference range was not used to interpret this result as normal/abnormal . GRAN MAT (NEUT) % 58.2 % (test code = 770-8) IMM GRAN % (test code 0.50 % = 2804692913) LYMPH % (test code = 28.4 % 736-9) MONO % (test code = 8.9 % 5905-5) EOS % (test code = 3.3 % 713-8) BASO % (test code = 0.7 % 706-2) GRAN MAT x10^3(ANC) 3.53 10*3/uL 1.88-7.09 (test code = 6460015763) IMM GRAN x10^3 (test 0.03 10*3/uL 0.00-0.06 code = 3579500054) LYMPH x10^3 (test code 1.72 10*3/uL 1.32-3.29 = 731-0) MONO x10^3 (test code 0.54 10*3/uL 0.33-0.92 = 742-7) EOS x10^3 (test code = 0.20 10*3/uL 0.03-0.39 711-2) BASO x10^3 (test code 0.04 10*3/uL 0.01-0.07 = 704-7) Lab Interpretation Abnormal (test code = 99963-8) [facility]woodXR CHEST 1 [id number] 00:27:06 No acute cardiopulmonary abnormality. Preliminary Report [...] reviewed this study and agree with theabove report.[facility] KingwoodTHYROID STIMULATING [id number] 22:15:04 Test Item Value Reference Range Interpretation Comments TSH (test code = See_Comment [Automated message] 7322643164) The system [employer] generated this result transmitted ref erence range: 0.45 - 4 .70 mIU/L. The refe rence range was not u sed to interpret this result as normal/abnor mal. Lab Interpretation (test Normal code = 46389-5) [facility] KingwoodGLYCOSYLATED HEMOGLOBIN (A1C)2020-11-22 22:14:59 Test Item Value Reference Range Interpretation Comments HGB A1C (test code = 5.1 % 4.0-5.7 4548-4) PAULA (test code = PAULA) Reference RangesNormal: <5.7%Prediabetes: 5.7 - 6.4%Diabetes: > 6.5% Lab Interpretation (test Normal code = 31497-1) [facility] KingwoodFREE [id number] 22:01:07 Test Item Value Reference Range Interpretation Comments FREE T4 (test code = See_Comment [Autom ated message] 4718661182) The system [employer] generated this result transmitted ref erence range: 0.78 - 2 .20 ng/dL:. The ref erence range was not u sed to interpret this result as normal/abnor mal. Lab Interpretation (test Normal code = 22112-1) [facility] KingwoodLIPID PANEL (03847)(TOTAL CHOLESTEROL, TRIGLYCERIDES, HDL)2020-11-22 21:44:08 Test Item Value Reference Range Interpretation Comments CHOL (test code = 279 mg/dL 120-200 H 7398897846) HDL (test code = 85 mg/dL >50 5127313697) HDLC RATIO (test code = See_Comment [Au tomated message] 0237718078) The system [employer] generated this result transmit bhaskar reference range : <=4.5. The refe rence range was not u sed to interpret th is result as normal/abnormal . TRIG (test code = 312 mg/dL 30-170 H 3402033606) LDL CHOL (test code = 132 mg/dL See_Comment [Auto mated message] 56871-3) The system [employer] generated this result transmit bhaskar reference range : <=160. The refe rence range was not u sed to interpret th is result as normal/abnormal . VLDL (test code = 62 mg/dL 5-60 H 7748731661) Lab Interpretation (test Abnormal code = 43767-0) [facility] KingwoodCT ANGIOGRAM [id number] 21:04:53 1. ?No acute aortic syndrome. No [...] this study and agree with theabove report. [facility] KingwoodTRDEONTE [id number] 20:12:00 Test Item Value Reference Range Interpretation Comments TROPONIN I (test 0.014 ng/mL See_Comment [Automated code = 7721212173) message] The system which generated this result [...] ? Lab Interpretation Normal (test code = 09326-8) [facility]woodCOVID-19 (ID NOW RAPID TESTING)2020-11-22 19:49:57 Test Item Value Reference Range Interpretation Comments SARS-CoV-2 Rapid ID NOW Not Detected Not Detected (test code = 73874-9) PAULA (test code = PAULA) ID NOW COVID-19 Assay is an isothermal nucleic acid amplification test intended for the qualitative detection of nucleic acid from SARS-CoV-2 viral RNA in nasopharyngeal (SALES ARCHITECT) specimens. It is used under Emergency Use [...] indicated. Lab Interpretation Normal (test code = 93214-8) [facility] KingwoodPOCT [id number] 19:43:00 Test Item Value Reference Range Interpretation Comments POCT PREG (test code = 1605) negative On board controls acceptable with present C Line (test code = 3574) POCT PREG LOT # (test code = 3575) [id number] POCT PREG TEST DATE (test 05-25-2022 code = 3576) Lab Interpretation (test code = Normal 30407-1) [facility]woodTROPONIN [id number] 15:52:28 Test Item Value Reference Range Interpretation Comments TROPONIN I (test 0.047 ng/mL See_Comment H [Automated code = 0718035906) message] The system which generated this result [...] ? Lab Interpretation Abnormal (test code = 01441-4) [facility]woodURINE DRUG (IMMUNOASSAY) - COMPREHENSIVE DRUG [id number] 15:24:44 Test Item Value Reference Range Interpretation Comments AMPHET (test code = Presumptive Positive Negative A 1200785619) ANN U (test code = Negative Negative 6798213976) BENZO U (test code = Negative Negative 8948075611) Cocaine Metabolite (test Negative Negative code = 3413587608) METHADONE (test code = Negative Negative 7835259987) OPIATES (test code = Negative Negative 2351046795) PCP (test code = Negative Negative 9416606684) THC (test code = Negative Negative 2675503251) PAULA (test code = PAULA) Urine Drug [...] testing). Lab Interpretation (test Abnormal code = 68241-7) [facility] KingwoodCK (CREATINE KINASE) + [id number] 13:16:38 Test Item Value Reference Range Interpretation Comments CK (test code = 751 U/L 33-194 H 1180330540) CK-MB (test code = 6.00 ng/mL See_Comment H [Automat ed 9129225709) message] The system which generated this result transmitted reference range : <=3.50. The reference range was not used to interpret this result as normal/abnormal . CKMB INDEX (test code 0.8 % 0.0-2.5 = 6689013625) PAULA (test code = PAULA) Biotin has been reported to cause a negative bias, interpret results relative to patient's use of biotin. Lab Interpretation Abnormal (test code = 09601-1) [facility]woodTROPONIN [id number] 13:16:38 Test Item Value Reference Range Interpretation Comments TROPONIN I (test 0.008 ng/mL See_Comment [Automated code = 5300986594) message] The system which generated this result [...] ? Lab Interpretation Normal (test code = 41830-8) [facility] DRUG (IMMUNOASSAY) - COMPREHENSIVE DRUG [id number] 13:13:47 Test Item Value Reference Range Interpretation Comments ANN S (test code = Negative Negative 3439556489) BENZO S (test code = Negative Negative 8391541190) TRICYCLIC (test code = Negative Negative 4333789079) PAULA (test code = PAULA) Serum Drug Screen Cutoff Ranges Barbiturates ? ? - 3 mcg/mLBenzodiazepines ?- 50 ng/mLTCA ?- 300 ng/mL Test developed and characteristics determined by [facility]. The results are to be used only for medical (i.e., treatment) purposes. Unconfirmed screening results must not be used for non-medical purposes (e.g., employment testing, legal testing). Lab Interpretation Normal (test code = 89341-6) [facility]woodURINALYSIS2021-05-30 13:13:32 Test Item Value Reference Range Interpretation Comments APPEARANCE (test code = Clear Clear 9977045740) COLOR (test code = Colorless Yellow A 1797342235) PH (test code = 4.8-8.0 7767972611) SP GRAVITY (test code = 1.003-1.030 L 1248640202) GLU U QUAL (test code = Normal Normal 7760202694) BLOOD (test code = 1+ Negative A 0596563055) KETONES (test code = Negative Negative 8112704740) PROTEIN (test code = Negative Negative 2887-8) UROBILIN (test code = Normal Normal 1610801100) BILIRUBIN (test code = Negative Negative 1213739301) NITRITE (test code = Negative Negative 1536586015) LEUK JONATHON (test code = Negative Negative 9120759949) RBC/HPF (test code = See_Comment [Autom ated message] 9932890461) The system [employer] generated this result transmit bhaskar reference range : 0 - 3 HPF. The refe rence range was not u sed to interpret th is result as normal/abnormal . WBC/HPF (test code = <1 See_Comment [Autom ated message] 7195029111) The system [employer] generated this result transmit bhaskar reference range : 0 - 5 HPF. The refe rence range was not u sed to interpret th is result as normal/abnormal . BACTERIA (test code = Negative Negative 4596030300) AMORPHOUS (test code = Rare Rare HPF 5858243293) Lab Interpretation (test Abnormal code = 94104-2) [facility]woodD-[id number] 13:09:19 Test Item Value Reference Interpretation Comments Range D-DIMER (test code = See_Comment [Autom ated 0516826717) message] The system which generated this result [...] diagnosis. Lab Interpretation Normal (test code = 76284-9) [facility]. METABOLIC PANEL (94068)2020-11-22 13:06:21 Test Item Value Reference Range Interpretation Comments NA (test code = 139 mmol/L 135-145 0248654313) K (test code = 4.1 mmol/L 3.5-5.0 5411480791) CL (test code = 106 mmol/L 98-108 1249839095) CO2 TOTAL (test code = 20 mmol/L 23-31 L 8139720441) AGAP (test code = 2-16 9415370778) BUN (test code = 12 mg/dL 7-23 5007910800) GLUCOSE (test code = 92 mg/dL 70-110 4705644513) CREATININE (test code = 0.58 mg/dL 0.50-1.04 6807527250) TOTAL BILI (test code = 0.2 mg/dL 0.1-1.7 9532574337) CALCIUM (test code = 9.4 mg/dL 8.6-10.6 1655129085) T PROTEIN (test code = 7.6 g/dL 6.3-8.2 7243035908) ALBUMIN (test code = 4.5 g/dL 3.5-5.0 2562440482) ALK PHOS (test code = 70 U/L 34-122 3819699710) ALTv (test code = 14 U/L 5-35 2-6) AST(SGOT) (test code = 29 U/L 13-40 1344055472) eGFR (test code = mL/min/1.73m2 1158102150) PAULA (test code = PAULA) Association of [...] tests). Lab Interpretation Abnormal (test code = 09773-4) [facility]woodETHANOL2021-05-30 13:06:21 Test Item Value Reference Range Interpretation Comments ALCOHOL (test code = 112 mg/dL 6576081170) PAULA (test code = Toxic Greater than or PAULA) equal to 80 mg/dL. NOTE: Whole blood values are approximately 10% to 15% lower than serum and plasma. [facility]woodLIPASE2021-05-30 13:06:21 Test Item Value Reference Range Interpretation Comments LIPASE (test code = 8006122082) 118 U/L 0-220 Lab Interpretation (test code = Normal 93121-4) [facility] WITH [id number] 13:00:59 Test Item Value Reference Range Interpretation Comments WBC (test code = See_Comment [Automated message] 6690-2) The system [employer] generated this result transmitted ref erence range: 4.30 - 1 1.10 10*3/?L. The re ference range was not u sed to interpret this result as normal/abnor mal. RBC (test code = See_Comment [Automated message] 789-8) The system [employer] generated this result transmitted ref erence range: [...] RDW-SD (test code 44.0 fL 39.0-49.9 = 37952-6) RDW-CV (test code 13.0 % 12.0-15.5 = 788-0) PLT (test code = See_Comment [Automated message] 777-3) The system whic h generated this result transmitted ref erence range: 166 - 35 8 10*3/?L. The re ference range was not u sed to interpret this result as normal/abnor mal. MPV (test code = 9.9 fL 9.5-12.9 62053-9) NRBC/100 WBC (test See_Comment [Automat ed message] code = 2745239954) The syste m which generated this result transmitted ref erence range: 0.0 - 10 .0 /100 WBCs. The refer ence range was not u sed to interpret this result as normal/abnor mal. NRBC x10^3 (test <0.01 See_Comment [Automated message] code = 1485332562) The syste m which generated this result transmitted ref erence range: 10*3/?L. The reference range was not used to interpr et this result as normal/abnormal . GRAN MAT (NEUT) % 57.8 % (test code = 770-8) IMM GRAN % (test 0.30 % code = 2034785046) LYMPH % (test code 31.0 % = 736-9) MONO % (test code 8.7 % = 5905-5) EOS % (test code = 1.5 % 713-8) BASO % (test code 0.7 % = 706-2) GRAN MAT 3.37 10*3/uL 1.88-7.09 x10^3(ANC) (test code = 4484404944) IMM GRAN x10^3 <0.03 0.00-0.06 (test code = 5923494913) LYMPH x10^3 (test 1.81 10*3/uL 1.32-3.29 code = 731-0) MONO x10^3 (test 0.51 10*3/uL 0.33-0.92 code = 742-7) EOS x10^3 (test 0.09 10*3/uL 0.03-0.39 code = 711-2) BASO x10^3 (test 0.04 10*3/uL 0.01-0.07 code = 704-7) [facility]woodDRUG PANEL 2 [id number] 11:58:10 Test Item Value Reference Range Interpretation Comments AMPHET (test code = Negative Negative 0901999612) ANN U (test code = Negative Negative 9212695477) BENZO U (test code = Negative Negative 7107980994) Cocaine Metabolite (test Negative Negative code = 7343446874) METHADONE (test code = Negative Negative 5134342173) OPIATES (test code = Negative Negative 4772724675) PCP (test code = Negative Negative 6466814916) THC (test code = Negative Negative 8170130175) PALUA (test code = PAULA) Urine Drug Cutoff [...] testing). Lab Interpretation (test Normal code = 94484-3) [facility] KingwoodUrinalysis2021-04-29 10:57:49 Test Item Value Reference Range Interpretation Comments APPEARANCE (test code = Clear Clear 3716892240) COLOR (test code = Colorless Yellow A 4378703850) PH (test code = 4.8-8.0 9351905105) SP GRAVITY (test code = 1.003-1.030 4201027190) GLU U QUAL (test code = Normal Normal 4060136516) BLOOD (test code = 2+ Negative A 0964994432) KETONES (test code = Negative Negative 4006962297) PROTEIN (test code = Negative Negative 2887-8) UROBILIN (test code = Normal Normal 2105733079) BILIRUBIN (test code = Negative Negative 3931816287) NITRITE (test code = Negative Negative 6230033335) LEUK JONATHON (test code = Negative Negative 5469466804) RBC/HPF (test code = See_Comment H [Autom ated message] 0055679929) The system [employer] generated this result transmit bhaskar reference range : 0 - 3 HPF. The refe rence range was not u sed to interpret th is result as normal/abnormal . WBC/HPF (test code = <1 See_Comment [Autom ated message] 6183805837) The system [employer] generated this result transmit bhaskar reference range : 0 - 5 HPF. The refe rence range was not u sed to interpret th is result as normal/abnormal . BACTERIA (test code = Negative Negative 5857714394) SQ EPITH (test code = <1 See_Comment [Auto mated message] 2840215565) The system [employer] generated this result transmit bhaskar reference range : <=2 HPF. The refere nce range was not u sed to interpret th is result as normal/abnormal . ASCORBIC ACID (test code Negative = 0692190699) Lab Interpretation (test Abnormal code = 24966-4) [facility] KingwoodJER [id number] 10:29:23 Test Item Value Reference Range Interpretation Comments TROPONIN I (test 0.005 ng/mL See_Comment [Automated code = 9106313441) message] The system which generated this result [...] ? Lab Interpretation Normal (test code = 75528-4) [facility]woodPOCT [id number] 10:12:00 Test Item Value Reference Range Interpretation Comments POCT PREG (test code = 1605) negative On board controls acceptable with C present Line (test code = 3574) POCT PREG LOT # (test code = 3575) HCG Lab Interpretation (test code = Normal 82557-7) [facility] KingwoodTroponin [id number] 08:15:07 Test Item Value Reference Range Interpretation Comments TROPONIN I (test 0.007 ng/mL See_Comment [Automated code = 0077389172) message] The system which generated this result [...] ? Lab Interpretation Normal (test code = 28852-6) [facility]woodCOVID-19 (ID NOW RAPID TESTING)2020-10-22 08:08:44 Test Item Value Reference Range Interpretation Comments SARS-CoV-2 Rapid ID NOW Not Detected Not Detected (test code = 92819-9) PAULA (test code = PAULA) ID NOW COVID-19 Assay is an isothermal nucleic acid amplification test intended for the qualitative detection of nucleic acid from SARS-CoV-2 viral RNA in nasopharyngeal (SALES ARCHITECT) specimens. It is used under Emergency Use [...] indicated. Lab Interpretation Normal (test code = 79097-4) [facility] Met[facility] (NA, K, CL, CO2, GLUCOSE, BUN, CREATININE, CA)2020-10-22 08:00:24 Test Item Value Reference Range Interpretation Comments NA (test code = 136 mmol/L 135-145 3844150403) K (test code = 5.1 mmol/L 3.5-5.0 H Slight 9171310927) hemolysis CL (test code = 107 mmol/L 98-108 7341349289) CO2 TOTAL (test code 22 mmol/L 23-31 L = 0132198538) AGAP (test code = 2-16 6240870728) BUN (test code = 10 mg/dL 7-23 Slight 2641857297) hemolysis GLUCOSE (test code = 107 mg/dL 70-110 3189183012) CREATININE (test code 0.56 mg/dL 0.50-1.04 = 9527957309) CALCIUM (test code = 8.6 mg/dL 8.6-10.6 4591983094) eGFR (test code = mL/min/1.73m2 2945509243) PAULA (test code = PAULA) Association of [...] tests). Lab Interpretation Abnormal (test code = 54445-6) [facility] KingwoodHepatic Function Panel (ALB, T.PRO, BILI T, BU/BC, ALT, AST, ALK PHOS)2020-10-22 08:00:24 Test Item Value Reference Range Interpretation Comments TOTAL BILI (test code = 7987314024) 0.3 mg/dL 0.1-1.1 BILI UNCON (test code = 1284542162) 0.1 mg/dL 0.1-1.1 BILI CONJ (test code = 5746462464) 0.0 mg/dL 0.0-0.3 T PROTEIN (test code = 5100252329) 7.0 g/dL 6.3-8.2 ALBUMIN (test code = 9438556609) 3.9 g/dL 3.5-5.0 ALK PHOS (test code = 3339640381) 112 U/L 34-122 ALTv (test code = 1742-6) 292 U/L 5-35 H AST(SGOT) (test code = 4001588123) 322 U/L 13-40 H Lab Interpretation (test code = Abnormal 97150-8) [facility]woodEthanol [id number] 08:00:24 Test Item Value Reference Range Interpretation Comments ALCOHOL (test code = 67 mg/dL 1738823135) PAULA (test code = Toxic Greater than or PAULA) equal to 80 mg/dL. NOTE: Whole blood values are approximately 10% to 15% lower than serum and plasma. [facility]woodLipase [id number] 08:00:24 Test Item Value Reference Range Interpretation Comments LIPASE (test code = 6977984115) 165 U/L 0-220 Lab Interpretation (test code = Normal 05421-6) [facility]woodCBC with Ntdwzenstfpk7115-54-28 07:55:00 Test Item Value Reference Range Interpretation Comments WBC (test code = See_Comment [Automated 7090-2) message] The sy stem which generated this result transmitted reference range : 4.30 - 11.10 10*3/?L. The reference range was not used to interpret this result as normal/abnormal . RBC (test code = See_Comment [Automated 579-8) message] The sy stem which generated this [...] RDW-SD (test code = 43.8 fL 39.0-49.9 95008-4) RDW-CV (test code = 13.2 % 12.0-15.5 788-0) PLT (test code = See_Comment [Automated 777-3) message] The sy stem which generated this result transmitted reference range : 166 - 358 10*3/ ?L. The reference r micah was not used to interpret this result as normal/abnormal . MPV (test code = 9.2 fL 9.5-12.9 L 21528-8) NRBC/100 WBC (test See_Comment [Automat ed code = 3661390229) message] The system which generated this result transmitted reference range : 0.0 - 10.0 /100 WBCs. The refer ence range was not u sed to interpret th is result as normal/abnormal . NRBC x10^3 (test code <0.01 See_Comment [Auto mated = 4363857712) message] The s ystem which generated this result transmitted reference range : 10*3/?L. The reference range was not used to interpret this result as normal/abnormal . GRAN MAT (NEUT) % 64.0 % (test code = 770-8) IMM GRAN % (test code 0.40 % = 6196337978) LYMPH % (test code = 24.3 % 736-9) MONO % (test code = 8.9 % 5905-5) EOS % (test code = 1.4 % 713-8) BASO % (test code = 1.0 % 706-2) GRAN MAT x10^3(ANC) 3.18 10*3/uL 1.88-7.09 (test code = 6372200148) IMM GRAN x10^3 (test <0.03 0.00-0.06 code = 9124207130) LYMPH x10^3 (test code 1.21 10*3/uL 1.32-3.29 L = 731-0) MONO x10^3 (test code 0.44 10*3/uL 0.33-0.92 = 742-7) EOS x10^3 (test code = 0.07 10*3/uL 0.03-0.39 711-2) BASO x10^3 (test code 0.05 10*3/uL 0.01-0.07 = 704-7) Lab Interpretation Abnormal (test code = 66362-1) [facility] 2 [id number] 18:12:05 No acute cardiopulmonary abnormality. Preliminary Report [...] reviewed this study and agree with theabove report.[facility]woodCREATINE [id number] 17:21:00 Test Item Value Reference Range Interpretation Comments CK (test code = 8018267344) 765 U/L 33-194 H Lab Interpretation (test code = Abnormal 93471-8) [facility]woodLipase Maswk1622-80-37 17:20:59 Test Item Value Reference Range Interpretation Comments LIPASE (test code = 7423603285) 135 U/L 0-220 Lab Interpretation (test code = Normal 40246-7) [facility] KingwoodTroponin [id number] 16:25:05 Test Item Value Reference Range Interpretation Comments TROPONIN I (test 0.007 ng/mL See_Comment [Automated code = 2920806968) message] The system which generated this result [...] ? Lab Interpretation Normal (test code = 05649-7) [facility]woodN-TERMINAL [id number] 16:25:04 Test Item Value Reference Range Interpretation Comments NT-proBNP (test code 178 pg/mL See_Comment H [Autom ated = 7692111962) message] The system which generated this result transmitted reference range : <=125. The reference range was not used to interpret this result as normal/abnormal . PAULA (test code = PAULA) Biotin has been reported to cause a negative bias, interpret results relative to patient's use of biotin. Lab Interpretation Abnormal (test code = 33944-8) [facility] KingwoodBasi Metabolic Panel (NA, K, CL, CO2, GLUCOSE, BUN, CREATININE, CA)2020-10-15 16:13:24 Test Item Value Reference Range Interpretation Comments NA (test code = 135 mmol/L 135-145 9859767041) K (test code = 4.0 mmol/L 3.5-5.0 Slight 5578272189) hemolysis CL (test code = 109 mmol/L 98-108 H 8760312426) CO2 TOTAL (test code 21 mmol/L 23-31 L = 4292074374) AGAP (test code = 2-16 2462873559) BUN (test code = 11 mg/dL 7-23 Slight 3805597231) hemolysis GLUCOSE (test code = 98 mg/dL 70-110 3422698501) CREATININE (test code 0.54 mg/dL 0.50-1.04 = 9554908671) CALCIUM (test code = 8.1 mg/dL 8.6-10.6 L 9595408991) eGFR (test code = mL/min/1.73m2 7851935286) PAULA (test code = PAULA) Association of [...] tests). Lab Interpretation Abnormal (test code = 82920-8) [facility] KingwoodHepatic Function Panel (ALB, T.PRO, BILI T, BU/BC, ALT, AST, ALK PHOS)2020-10-15 16:13:24 Test Item Value Reference Range Interpretation Comments TOTAL BILI (test code = 6787703242) 0.3 mg/dL 0.1-1.1 BILI UNCON (test code = 9966705225) 0.1 mg/dL 0.1-1.1 BILI CONJ (test code = 2774006237) 0.0 mg/dL 0.0-0.3 T PROTEIN (test code = 4346199011) 6.0 g/dL 6.3-8.2 L ALBUMIN (test code = 7967035755) 3.2 g/dL 3.5-5.0 L ALK PHOS (test code = 1571039844) 59 U/L 34-122 ALTv (test code = 1742-6) 74 U/L 5-35 H AST(SGOT) (test code = 4670544790) 100 U/L 13-40 H Lab Interpretation (test code = Abnormal 05855-8) [facility]woodPregnancy Test, [id number] 16:12:38 Test Item Value Reference Range Interpretation Comments PREG SERUM (test code Negative = 6602832633) PAULA (test code = PAULA) Less than 10 IU/L. ?If low titer or ectopic is suspected, resubmit specimen in 48-72 hours. [facility] KingwoodTroponin [id number] 14:29:39TROPONIN IComment: Possible Contaminated specimen. ?Talked to Dr Mai to reorder Troponin and BNP. This is a corrected result. ?Previous result was 0.007 ng/mL on 10/15/2020 [facility] 0903 [facility] SERVICESEqual or Less than 0.034 ng/ml---Normal [...] results relative to patient's use of biotin. ?[facility] KingwoodN- TERMINAL [id number] 14:28:48NT-proBNPComment: Possible Contaminated specimen. ?Talked to Dr Mai to reorder Troponin and BNP. This is a corrected result. ?Previous result was 41 pg/mL on 10/15/2020 [facility] 0904 [facility] SERVICESBiotin has been reported to cause a negative bias, interpret results relative to patient's use of biotin.[facility] KingwoodLipase [id number] 14:09:09LIPASEComment: Possible contamination of specimen. Dr Mai to reorder for recollection. This is a corrected result. ?Previous result was 16 U/L on 10/15/2020 at 0852 [facility] SERVICESUnBapt[facility] Saint [facility] HospitalCREATINE [id number] 14:08:28CKComment: Possible contamination of specimen. Dr Mai to reorder for recollection. This is a corrected result. ?Previous result was 230 U/L on 10/15/2020 at 0852 [facility] SERVICESUnBaptist Saint Anthony's HospitalCT HEAD WO CONTRAST 2020-10-15 13:47:51 No [...] clear. IMPRESSIONNo acute intracranial hemorrhage or mass effect.[facility] KingwoodXR CHEST 1 [id number] 14:06:46 No acute cardiopulmonary process. Preliminary Report [...] reviewed this study and agree with theabove report.[facility] KingwoodCOMP. METABOLIC PANEL (06428)2020-10-13 11:48:17 Test Item Value Reference Range Interpretation Comments NA (test code = 137 mmol/L 135-145 7937293650) K (test code = 4.2 mmol/L 3.5-5.0 Slight 9501783803) hemolysis CL (test code = 110 mmol/L 98-108 H 5014064724) CO2 TOTAL (test code 18 mmol/L 23-31 L = 0853395128) AGAP (test code = 2-16 6387455121) BUN (test code = 13 mg/dL 7-23 Slight 7550261243) hemolysis GLUCOSE (test code = 104 mg/dL 70-110 7188771996) CREATININE (test code 0.63 mg/dL 0.50-1.04 = 6103627514) TOTAL BILI (test code 0.5 mg/dL 0.1-1.1 = 4927310842) CALCIUM (test code = 8.1 mg/dL 8.6-10.6 L 0400166796) T PROTEIN (test code 7.0 g/dL 6.3-8.2 = 4490148033) ALBUMIN (test code = 3.8 g/dL 3.5-5.0 8245835256) ALK PHOS (test code = 55 U/L 34-122 Slight 7215832395) hemolysis ALTv (test code = 49 U/L 5-35 H 1742-6) AST(SGOT) (test code 72 U/L 13-40 H Slight = 0375408434) hemolysis eGFR (test code = mL/min/1.73m2 2669034251) PAULA (test code = PAULA) Association of [...] tests). Lab Interpretation Abnormal (test code = 62391-9) [facility]woodDrug Screen [id number] 11:42:55 Test Item Value Reference Range Interpretation Comments AMPHET (test code = Presumptive Positive Negative A 8323155369) Cocaine Metabolite (test Negative Negative code = 8599664324) OPIATES (test code = Presumptive Positive Negative A 3112923045) THC (test code = Negative Negative 6138425038) PAULA (test code = PAULA) Urine Drug Cutoff Ranges Amphetamine: ? 1,000 ng/mLCocaine: ? 150 ng/mLOpiates: ? 300 ng/mLCannabinoids: ?50 ng/mL The results are to be used only for medical (i.e., treatment) purposes. Unconfirmed screening results must not be used for non-medical purposes (e.g., employment testing, legal testing). Lab Interpretation (test Abnormal code = 73013-8) [facility]woodDRUG SCREEN PANEL 2 [id number] 11:42:35 Test Item Value Reference Range Interpretation Comments AMPHET (test code = Presumptive Positive Negative A 8288303135) ANN U (test code = Negative Negative 9472007133) BENZO U (test code = Negative Negative 6021055424) Cocaine Metabolite (test Negative Negative code = 2173920293) METHADONE (test code = Negative Negative 6700376002) OPIATES (test code = Presumptive Positive Negative A 3089458981) PCP (test code = Negative Negative 2409003726) THC (test code = Negative Negative 2617548101) PAULA (test code = PAULA) Urine Drug [...] testing). Lab Interpretation (test Abnormal code = 27237-8) [facility] KingwoodD-DTSSP9224-05-41 11:32:36 Test Item Value Reference Interpretation Comments Range D-DIMER (test code = See_Comment [Autom ated 9710896773) message] The system which generated this result [...] diagnosis. Lab Interpretation Normal (test code = 63034-1) [facility]woodURINALYSIS2021-04-20 11:29:49 Test Item Value Reference Range Interpretation Comments APPEARANCE (test code = Clear Clear 8393435833) COLOR (test code = Straw Yellow A 4579453665) PH (test code = 4.8-8.0 1151196540) SP GRAVITY (test code = 1.003-1.030 4799327583) GLU U QUAL (test code = Normal Normal 4612205963) BLOOD (test code = Negative Negative 3205004558) KETONES (test code = Negative Negative 4052374853) PROTEIN (test code = Negative Negative 2887-8) UROBILIN (test code = Normal Normal 7814920457) BILIRUBIN (test code = Negative Negative 9609223394) NITRITE (test code = Negative Negative 1951424413) LEUK JONATHON (test code = Negative Negative 3361610453) RBC/HPF (test code = <1 See_Comment [Autom ated message] 3121106085) The system [employer] generated this result transmitted ref erence range: 0 - 3 HP F. The reference range was not used to int erpret this result as normal/abnormal . WBC/HPF (test code = <1 See_Comment [Autom ated message] 3823015615) The system [employer] generated this result transmitted ref erence range: 0 - 5 HP F. The reference range was not used to int erpret this result as normal/abnormal . BACTERIA (test code = Few Negative A 2524889628) SQ EPITH (test code = See_Comment [Auto mated message] 3663199150) The system [employer] generated this result transmitted ref erence range: <=2 HPF. The reference range was not used to int erpret this result as normal/abnormal . Lab Interpretation (test Abnormal code = 01837-9) [facility]woodPOCT [id number] 11:13:00 Test Item Value Reference Range Interpretation Comments POCT PREG (test code = 1605) negative On board controls acceptable with present C Line (test code = 3574) POCT PREG LOT # (test code = 3575) [id number] POCT PREG TEST DATE (test 2022-05-25 code = 3576) Lab Interpretation (test code = Normal 22415-3) [facility] KingwoodTHYROID STIMULATING [id number] 11:12:54 Test Item Value Reference Range Interpretation Comments TSH (test code = See_Comment H [Automated message] 7214683734) The system [employer] generated this result transmitted ref erence range: 0.45 - 4 .70 mIU/L. The refe rence range was not u sed to interpret this result as normal/abnor mal. Lab Interpretation (test Abnormal code = 43235-4) [facility] KingwoodTroponin [id number] 10:54:13 Test Item Value Reference Range Interpretation Comments TROPONIN I (test 0.013 ng/mL See_Comment [Automated code = 5446712305) message] The system which generated this result [...] ? Lab Interpretation Normal (test code = 06931-8) [facility]woodEthanol [id number] 10:53:52 Test Item Value Reference Range Interpretation Comments ALCOHOL (test code = <10 mg/dL 7005911097) PAULA (test code = Toxic Greater than or PAULA) equal to 80 mg/dL. NOTE: Whole blood values are approximately 10% to 15% lower than serum and plasma. [facility] with Znfxsfuzzjbx5492-19-32 10:49:12 Test Item Value Reference Range Interpretation Comments WBC (test code = See_Comment [Automated message] 0790-2) The system [employer] generated this result transmitted ref erence range: 4.30 - 1 1.10 10*3/?L. The re ference range was not u sed to interpret this result as normal/abnor mal. RBC (test code = See_Comment [Automated message] 979-8) The system [employer] generated this result transmitted ref erence range: [...] RDW-SD (test code 43.8 fL 39.0-49.9 = 11845-8) RDW-CV (test code 12.9 % 12.0-15.5 = 788-0) PLT (test code = See_Comment [Automated message] 777-3) The system whic h generated this result transmitted ref erence range: 166 - 35 8 10*3/?L. The re ference range was not u sed to interpret this result as normal/abnor mal. MPV (test code = 9.5 fL 9.5-12.9 71519-1) NRBC/100 WBC (test See_Comment [Automat ed message] code = 3255310186) The syste m which generated this result transmitted ref erence range: 0.0 - 10 .0 /100 WBCs. The refer ence range was not u sed to interpret this result as normal/abnor mal. NRBC x10^3 (test <0.01 See_Comment [Automated message] code = 6407346002) The syste m which generated this result transmitted ref erence range: 10*3/?L. The reference range was not used to interpr et this result as normal/abnormal . GRAN MAT (NEUT) % 66.8 % (test code = 770-8) IMM GRAN % (test 0.30 % code = 5354278008) LYMPH % (test code 21.6 % = 736-9) MONO % (test code 9.2 % = 5905-5) EOS % (test code = 1.4 % 713-8) BASO % (test code 0.7 % = 706-2) GRAN MAT 4.73 10*3/uL 1.88-7.09 x10^3(ANC) (test code = 0224167639) IMM GRAN x10^3 <0.03 0.00-0.06 (test code = 2581975828) LYMPH x10^3 (test 1.53 10*3/uL 1.32-3.29 code = 731-0) MONO x10^3 (test 0.65 10*3/uL 0.33-0.92 code = 742-7) EOS x10^3 (test 0.10 10*3/uL 0.03-0.39 code = 711-2) BASO x10^3 (test 0.05 10*3/uL 0.01-0.07 code = 704-7) [facility] KingwoodLipase [id number] 10:44:47 Test Item Value Reference Range Interpretation Comments LIPASE (test code = 5521461550) 172 U/L 0-220 Lab Interpretation (test code = Normal 24880-6) [facility] KingwoodProthrombin Time (PT) / [id number] 10:43:11 Test Item Value Reference Range Interpretation Comments PROTIME PATIENT (test See_Comment [Auto mated message] code = 5964-2) The system [employer] generated this result transmitted ref erence range: 10.1 - 1 2.6 Seconds. The re ference range was not u sed to interpret this result as normal/abnor mal. INR (test code = 6301-6) Nor mal INR <1.1; Warfarin Therap eutic range 2.0 to 3. 0 or 2.5 to 3.5, dep ending upon the indica tions. Lab Interpretation (test Normal code = 45632-4) [facility] KingwoodaPTT2021-04-20 10:43:11 Test Item Value Reference Range Interpretation Comments APTT Patient (test code See_Comment L [Au tomated message] = 3173-2) The system [employer] h generated this result transmitted ref erence range: 26 - 36 Seconds. The reference range was not used to int erpret this result as normal/abnormal . Lab Interpretation (test Abnormal code = 83085-4) [facility]woodCOVID-19 (ID NOW RAPID TESTING)2020-10-13 10:28:07 Test Item Value Reference Range Interpretation Comments SARS-CoV-2 Rapid ID NOW Not Detected Not Detected (test code = 11653-7) PAULA (test code = PAULA) ID NOW COVID-19 Assay is an isothermal nucleic acid amplification test intended for the qualitative detection of nucleic acid from SARS-CoV-2 viral RNA in nasopharyngeal (SALES ARCHITECT) specimens. It is used under Emergency Use [...] indicated. Lab Interpretation Normal (test code = 09923-0) [facility] KingwoodPREGNANCY TEST, [id number] 03:54:33 Test Item Value Reference Range Interpretation Comments PREG SERUM (test code Negative = 5934318444) PAULA (test code = PAULA) Less than 10 IU/L. ?If low titer or ectopic is suspected, resubmit specimen in 48-72 hours. [facility] Metabolic Panel (NA, K, CL, CO2, GLUCOSE, BUN, CREATININE, CA)2020-09-17 03:26:58 Test Item Value Reference Range Interpretation Comments NA (test code = 135 mmol/L 135-145 7087839742) K (test code = 3.8 mmol/L 3.5-5.0 2302158355) CL (test code = 99 mmol/L 98-108 8727673314) CO2 TOTAL (test code = 24 mmol/L 23-31 7801193607) AGAP (test code = 2-16 5784815839) BUN (test code = 9 mg/dL 7-23 3098205630) GLUCOSE (test code = 100 mg/dL 70-110 0318421126) CREATININE (test code 0.74 mg/dL 0.50-1.04 = 5433815818) CALCIUM (test code = 9.1 mg/dL 8.6-10.6 8905115683) eGFR Calculation mL/min/1.73m2 (Non-) (test code = 8844907713) eGFR Calculation mL/min/1.73m2 () (test code = 2325902028) PAULA (test code = PAULA) Association of [...] or urine or abnormalities in imaging tests). [facility]woodHepatic Function Panel (ALB, T.PRO, BILI T, BU/BC, ALT, AST, ALK PHOS)2020-09-17 03:26:58 Test Item Value Reference Range Interpretation Comments TOTAL BILI (test code = 7763217042) 0.4 mg/dL 0.1-1.1 BILI UNCON (test code = 1359225850) 0.2 mg/dL 0.1-1.1 BILI CONJ (test code = 9692591755) 0.0 mg/dL 0.0-0.3 T PROTEIN (test code = 0641792136) 8.6 g/dL 6.3-8.2 H ALBUMIN (test code = 8353089042) 5.1 g/dL 3.5-5.0 H ALK PHOS (test code = 0063628868) 114 U/L 34-122 ALTv (test code = 1742-6) 28 U/L 5-35 AST(SGOT) (test code = 1317316531) 47 U/L 13-40 H Lab Interpretation (test code = Abnormal 47885-1) [facility] KingwoodLipase Klvtc5643-20-08 03:26:58 Test Item Value Reference Range Interpretation Comments LIPASE (test code = 0110052705) 81 U/L 0-220 Lab Interpretation (test code = Normal 20058-6) [facility] with Rmirhffauvpv9974-86-14 03:13:16 Test Item Value Reference Range Interpretation [...] RDW-SD (test code = 42.8 fL 39.0-49.9 82309-7) RDW-CV (test code = 12.8 % 12.0-15.5 788-0) PLT (test code = See_Comment [Automated 777-3) message] The sy stem which generated this result transmitted reference range : 166 - 358 10*3/ ?L. The reference r micah was not used to interpret this result as normal/abnormal . MPV (test code = 8.9 fL 9.5-12.9 L 02489-4) NRBC/100 WBC (test See_Comment [Automat ed code = 5515098671) message] The system which generated this result transmitted reference range : 0.0 - 10.0 /100 WBCs. The refer ence range was not u sed to interpret th is result as normal/abnormal . NRBC x10^3 (test code <0.01 See_Comment [Auto mated = 9422615993) message] The s ystem which generated this result transmitted reference range : 10*3/?L. The reference range was not used to interpret this result as normal/abnormal . GRAN MAT (NEUT) % 44.7 % (test code = 770-8) IMM GRAN % (test code 0.50 % = 0018446761) LYMPH % (test code = 44.6 % 736-9) MONO % (test code = 8.2 % 5905-5) EOS % (test code = 0.9 % 713-8) BASO % (test code = 1.1 % 706-2) GRAN MAT x10^3(ANC) 2.84 10*3/uL 1.88-7.09 (test code = 6428677090) IMM GRAN x10^3 (test 0.03 10*3/uL 0.00-0.06 code = 1878985591) LYMPH x10^3 (test code 2.83 10*3/uL 1.32-3.29 = 731-0) MONO x10^3 (test code 0.52 10*3/uL 0.33-0.92 = 742-7) EOS x10^3 (test code = 0.06 10*3/uL 0.03-0.39 711-2) BASO x10^3 (test code 0.07 10*3/uL 0.01-0.07 = 704-7) Lab Interpretation Abnormal (test code = 63383-1) [facility]woodN-TERMINAL [id number]-[id number] 11:23:18 Test Item Value Reference Range Interpretation Comments NT-proBNP (test code 100 pg/mL See_Comment [Autom ated = 0214002784) message] The system which generated this result transmitted reference range : <=125. The reference range was not used to interpret this result as normal/abnormal . PAULA (test code = PAULA) Biotin has been reported to cause a negative bias, interpret results relative to patient's use of biotin. Lab Interpretation Normal (test code = 15515-1) [facility] WITH [id number] 11:03:17 Test Item Value Reference Range Interpretation [...] RDW-SD (test code = 44.5 fL 39.0-49.9 41594-9) RDW-CV (test code = 12.7 % 12.0-15.5 788-0) PLT (test code = See_Comment [Automated 777-3) message] The sy stem which generated this result transmitted reference range : 166 - 358 10*3/ ?L. The reference r micah was not used to interpret this result as normal/abnormal . MPV (test code = 10.3 fL 9.5-12.9 41461-7) NRBC/100 WBC (test See_Comment [Automat ed code = 5309319585) message] The system which generated this result transmitted reference range : 0.0 - 10.0 /100 WBCs. The refer ence range was not u sed to interpret th is result as normal/abnormal . NRBC x10^3 (test code <0.01 See_Comment [Auto mated = 0951475584) message] The s ystem which generated this result transmitted reference range : 10*3/?L. The reference range was not used to interpret this result as normal/abnormal . GRAN MAT (NEUT) % 51.5 % (test code = 770-8) IMM GRAN % (test code 0.40 % = 6553264473) LYMPH % (test code = 35.6 % 736-9) MONO % (test code = 8.2 % 5905-5) EOS % (test code = 3.1 % 713-8) BASO % (test code = 1.2 % 706-2) GRAN MAT x10^3(ANC) 3.78 10*3/uL 1.88-7.09 (test code = 5071003527) IMM GRAN x10^3 (test 0.03 10*3/uL 0.00-0.06 code = 8073082852) LYMPH x10^3 (test code 2.61 10*3/uL 1.32-3.29 = 731-0) MONO x10^3 (test code 0.60 10*3/uL 0.33-0.92 = 742-7) EOS x10^3 (test code = 0.23 10*3/uL 0.03-0.39 711-2) BASO x10^3 (test code 0.09 10*3/uL 0.01-0.07 H = 704-7) Lab Interpretation Abnormal (test code = 38634-3) [facility] hospitalBIJAL [id number] 10:38:33 Test Item Value Reference Range Interpretation Comments TROPONIN I (test <0.012 See_Comment [Automated code = 5159077603) message] The system which generated this result [...] ? Lab Interpretation Normal (test code = 94682-3) [facility]. METABOLIC PANEL (55603)2020-09-06 10:26:52 Test Item Value Reference Range Interpretation Comments NA (test code = 134 mmol/L 135-145 L 0365398018) K (test code = 3.9 mmol/L 3.5-5.0 2333602447) CL (test code = 100 mmol/L 98-108 4618548867) CO2 TOTAL (test code = 27 mmol/L 23-31 4709631183) AGAP (test code = 2-16 4269114793) BUN (test code = 17 mg/dL 7-23 3710074600) GLUCOSE (test code = 90 mg/dL 70-110 1465192464) CREATININE (test code = 0.65 mg/dL 0.50-1.04 3285812392) TOTAL BILI (test code = 0.4 mg/dL 0.1-1.7 8232959360) CALCIUM (test code = 8.3 mg/dL 8.6-10.6 L 8960561763) T PROTEIN (test code = 7.1 g/dL 6.3-8.2 4109910057) ALBUMIN (test code = 4.1 g/dL 3.5-5.0 8533344270) ALK PHOS (test code = 101 U/L 34-122 4515814454) ALTv (test code = 47 U/L 5-35 H 1742-6) AST(SGOT) (test code = 45 U/L 13-40 H 0452328495) eGFR Calculation mL/min/1.73m2 (Non-) (test code = 5509103857) eGFR Calculation mL/min/1.73m2 () (test code = 8098848871) PAULA (test code = PAULA) Association of [...] tests). Lab Interpretation Abnormal (test code = 51552-3) [facility]woodLIPASE, [id number] 10:26:32 Test Item Value Reference Range Interpretation Comments LIPASE (test code = 6426693088) 139 U/L 0-220 Lab Interpretation (test code = Normal 71312-4) [facility]woodD-JVIKT0768-27-87 03:26:49 Test Item Value Reference Interpretation Comments Range D-DIMER (test code = <0.27 See_Comment [Autom ated 4947490981) message] The system which generated this result [...] diagnosis. Lab Interpretation Normal (test code = 90280-5) [facility]wood[facility]YRO[facility] STIMULATING [id number] 02:42:25 Test Item Value Reference Range Interpretation Comments TSH (test code = See_Comment [Automated message] 3493848749) The system [employer] generated this result transmitted ref erence range: 0.45 - 4 .70 mIU/L. The refe rence range was not u sed to interpret this result as normal/abnor mal. Lab Interpretation (test Normal code = 74530-9) [facility]woodN-TERMINAL [id number] 02:20:57 Test Item Value Reference Range Interpretation Comments NT-proBNP (test code 223 pg/mL See_Comment H [Autom ated = 6411041796) message] The system which generated this result transmitted reference range : <=125. The reference range was not used to interpret this result as normal/abnormal . PAULA (test code = PAULA) Biotin has been reported to cause a negative bias, interpret results relative to patient's use of biotin. Lab Interpretation Abnormal (test code = 80470-6) [facility]woodTroponin [id number] 01:06:21 Test Item Value Reference Range Interpretation Comments TROPONIN I (test <0.012 See_Comment [Automated code = 4750831112) message] The system which generated this result [...] ? Lab Interpretation Normal (test code = 21133-3) [facility] (ALB, T.PRO, BILI T, BU/BC, ALT, AST, ALK PHOS)2020-09-02 00:56:20 Test Item Value Reference Range Interpretation Comments TOTAL BILI (test code = 3608399079) 0.5 mg/dL 0.1-1.1 BILI UNCON (test code = 0404999401) 0.3 mg/dL 0.1-1.1 BILI CONJ (test code = 0045889619) 0.0 mg/dL 0.0-0.3 T PROTEIN (test code = 0636242053) 8.1 g/dL 6.3-8.2 ALBUMIN (test code = 4533634476) 4.7 g/dL 3.5-5.0 ALK PHOS (test code = 8614599766) 109 U/L 34-122 ALTv (test code = 1742-6) 75 U/L 5-35 H AST(SGOT) (test code = 4867786993) 53 U/L 13-40 H Lab Interpretation (test code = Abnormal 50530-5) [facility] (NA, K, CL, CO2, GLUCOSE, BUN, CREATININE, CA)2020-09-02 00:56:00 Test Item Value Reference Range Interpretation Comments NA (test code = 136 mmol/L 135-145 2770569609) K (test code = 3.8 mmol/L 3.5-5.0 8913937574) CL (test code = 99 mmol/L 98-108 0493823983) CO2 TOTAL (test code = 27 mmol/L 23-31 4753597074) AGAP (test code = 2-16 3999586640) BUN (test code = 4 mg/dL 7-23 L 6025832113) GLUCOSE (test code = 115 mg/dL 70-110 H 1928029717) CREATININE (test code = 0.49 mg/dL 0.50-1.04 L 0999083998) CALCIUM (test code = 9.4 mg/dL 8.6-10.6 7566483784) eGFR Calculation mL/min/1.73m2 (Non-) (test code = 2596543439) eGFR Calculation mL/min/1.73m2 () (test code = 0718882890) PAULA (test code = PAULA) Association of [...] tests). Lab Interpretation Abnormal (test code = 36300-3) [facility]woodLipase [id number] 00:56:00 Test Item Value Reference Range Interpretation Comments LIPASE (test code = 6394675580) 60 U/L 0-220 Lab Interpretation (test code = Normal 38016-8) [facility]COVID[facility] (ID NOW RAPID TESTING)2020-09-02 00:31:12 Test Item Value Reference Range Interpretation Comments SARS-CoV-2 Rapid ID NOW Not Detected Not Detected (test code = 13075-8) PAULA (test code = PAULA) ID NOW COVID-19 Assay is an isothermal nucleic acid amplification test intended for the qualitative detection of nucleic acid from SARS-CoV-2 viral RNA in nasopharyngeal (SALES ARCHITECT) specimens. It is used under Emergency Use [...] indicated. Lab Interpretation Normal (test code = 93503-1) [facility]woodCB with [id number] 00:21:26 Test Item Value Reference Range Interpretation Comments WBC (test code = See_Comment [Automated 9590-2) message] The sy stem which generated this result transmitted reference range : 4.30 - 11.10 10*3/?L. The reference range was not used to interpret this result as normal/abnormal . RBC (test code = See_Comment [Automated 109-8) message] The sy stem which generated this [...] RDW-SD (test code = 43.6 fL 39.0-49.9 88695-8) RDW-CV (test code = 12.9 % 12.0-15.5 788-0) PLT (test code = See_Comment H [Automated 777-3) message] The sy stem which generated this result transmitted reference range : 166 - 358 10*3/ ?L. The reference r micah was not used to interpret this result as normal/abnormal . MPV (test code = 9.4 fL 9.5-12.9 L 59220-7) NRBC/100 WBC (test See_Comment [Automat ed code = 9481060537) message] The system which generated this result transmitted reference range : 0.0 - 10.0 /100 WBCs. The refer ence range was not u sed to interpret th is result as normal/abnormal . NRBC x10^3 (test code <0.01 See_Comment [Auto mated = 8371884829) message] The s ystem which generated this result transmitted reference range : 10*3/?L. The reference range was not used to interpret this result as normal/abnormal . GRAN MAT (NEUT) % 71.0 % (test code = 770-8) IMM GRAN % (test code 0.50 % = 4536611431) LYMPH % (test code = 19.1 % 736-9) MONO % (test code = 7.6 % 5905-5) EOS % (test code = 0.7 % 713-8) BASO % (test code = 1.1 % 706-2) GRAN MAT x10^3(ANC) 6.08 10*3/uL 1.88-7.09 (test code = 3701819738) IMM GRAN x10^3 (test 0.04 10*3/uL 0.00-0.06 code = 3179381545) LYMPH x10^3 (test code 1.63 10*3/uL 1.32-3.29 = 731-0) MONO x10^3 (test code 0.65 10*3/uL 0.33-0.92 = 742-7) EOS x10^3 (test code = 0.06 10*3/uL 0.03-0.39 711-2) BASO x10^3 (test code 0.09 10*3/uL 0.01-0.07 H = 704-7) Lab Interpretation Abnormal (test code = 78385-9) [facility] Metabolic Panel (NA, K, CL, CO2, Glucose, BUN, Creatinine, CA)2020-04-12 10:56:00 Test Item Value Reference Range Interpretation Comments NA (test code = 135 mmol/L 135-145 7431820176) K (test code = 4.1 mmol/L 3.5-5 5410971498) CL (test code = 105 mmol/L 98-108 3337501117) CO2 TOTAL (test code = 28 mmol/L 23-31 8751603416) AGAP (test code = 2-16 4809383530) BUN (test code = 11 mg/dL 7-23 6765119315) GLUCOSE (test code = 95 mg/dL 70-110 1764848394) CREATININE (test code = 0.57 mg/dL 0.5-1.04 2927735265) CALCIUM (test code = 7.9 mg/dL 8.6-10.6 L 3563145776) eGFR Calculation mL/min/1.73m2 (Non-) (test code = 8255167534) eGFR Calculation mL/min/1.73m2 () (test code = 4339208599) PAULA (test code = PAULA) Association of [...] tests). Lab Interpretation Abnormal (test code = 10477-3) [facility] with [id number] 10:31:00 Test Item Value Reference Range Interpretation Comments WBC (test code = See_Comment [Automated 3990-2) message] The sy stem which generated this result transmitted reference range : 4.30 - 11.10 10*3/?L. The reference range was not used to interpret this result as normal/abnormal . RBC (test code = See_Comment L [Automated 733-8) message] The sy stem which generated this [...] RDW-SD (test code = 44.9 fL 39-49.9 69023-1) RDW-CV (test code = 13.2 % 12-15.5 788-0) PLT (test code = See_Comment [Automated 777-3) message] The sy stem which generated this result transmitted reference range : 166 - 358 10*3/ ?L. The reference r micah was not used to interpret this result as normal/abnormal . MPV (test code = 9.8 fL 9.5-12.9 11528-6) NRBC/100 WBC (test See_Comment [Automat ed code = 2370342524) message] The system which generated this result transmitted reference range : 0.0 - 10.0 /100 WBCs. The refer ence range was not u sed to interpret th is result as normal/abnormal . NRBC x10^3 (test code <0.01 See_Comment [Auto mated = 3485502527) message] The s ystem which generated this result transmitted reference range : 10*3/?L. The reference range was not used to interpret this result as normal/abnormal . GRAN MAT (NEUT) % 47.2 % (test code = 770-8) IMM GRAN % (test code 0.30 % = 9727151567) LYMPH % (test code = 40.7 % 736-9) MONO % (test code = 8.4 % 5905-5) EOS % (test code = 2.5 % 713-8) BASO % (test code = 0.9 % 706-2) GRAN MAT x10^3(ANC) 3.15 10*3/uL 1.88-7.09 (test code = 7429962631) IMM GRAN x10^3 (test <0.03 0-0.06 code = 3362607412) LYMPH x10^3 (test code 2.72 10*3/uL 1.32-3.29 = 731-0) MONO x10^3 (test code 0.56 10*3/uL 0.33-0.92 = 742-7) EOS x10^3 (test code = 0.17 10*3/uL 0.03-0.39 711-2) BASO x10^3 (test code 0.06 10*3/uL 0.01-0.07 = 704-7) Lab Interpretation Abnormal (test code = 67801-6) [facility]XR FOREARM 2 VW [id number] 21:32:56 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 [...] with no effusionidentified.IMPRESSIONElbow joint osteoarthrosis.No acute fractures. [facility]XR HAND 3+ VW [id number] 21:31:56 No fracture or dislocation identified.EXAM: XR HAND 3+ VW LEFT HISTORY: trauma, ttp just proximal to wrist COMPARISON: None FINDINGS: Imaging of the hand demonstrates maintenance of alignment. No fractures areseen. Joint spaces are preserved. [facility] 4:33 PM CDTEXAM:XR HAND 3+ VW LEFTHISTORY:trauma, ttp just proximal to wrist COMPARISON:NoneFINDINGS: Imaging of the hand demonstrates maintenance of alignment. No fractures areseen. Joint spaces are preserved.IMPRESSIONNo fracture or dislocation identified. [facility] [id number] 21:30:19 No acute bony abnormality is present. EXAM: XR WRIST 3+ VW LEFT HISTORY: trauma ttp proximal to wrist COMPARISON: None FINDINGS: Imaging of the wrist demonstrates maintenance of alignment. Joint spacesare preserved. The soft tissues are within normal limits. [facility]11/2020 4:31 PM CDTEXAM:XR WRIST 3+ VW LEFTHISTORY:trauma ttp proximal to wrist COMPARISON:NoneFINDINGS: Im aging of the wrist demonstrates maintenance of alignment. Joint spacesare preserved. The soft tissues are within normal limits.IMPRESSIONNo acute bony abnormality is present.[facility] 2020-04-11 15:00:43 No [...] reviewed this study and agree with the abovereport.[facility] ANKLE 3+ VW [id number] 15:00:43 No acute bony abnormality. Preliminary Report [...] ankle mortise is anatomic. Minimal forefoot swelling. [facility], [facility]/11/2020 10:01 AM CDTEXAM: XR TIBIA FIBULA 2 VW LEFT,EXAM: XR ANKLE 3+ VW LEFT,EXAM: XR FOOT 3+ VW LEFTHISTORY: trauma COMPARISON: None.FINDINGS: Radiographs ofthe left tibia-fibula, ankle, and foot demonstrate no acutefractures or dislocations. Joint spaces are preserved. Alignment is withinnormal limits. The ankle mortise is anatomic. Minimal forefoot swelli ng.IMPRESSIONNo acute bony abnormality.Preliminary Report Dictated by Resident: Fortino Guzmna MD., have reviewed this study and agree with the abovereport.[facility] TIBIA FIBULA 2 VW LEFT 2020-04-11 15:00:43 [...] reviewed this study and agree with the abovereport.[facility]woodCT TRAUMA THORAX W CONTRAST 2020-04-11 14:32:46 Wedge [...] reviewed this study and agree with the abovereport.[facility]woodCT TRAUMA ABDOMEN PELVIS W [id number] 14:32:46 Wedge compression deformity of T12, discussed [...] is identified. No pelvic fracture is identified. [facility], Radiant Results [facility] User -04/11/2020 9:33 AM [...] reviewed this study and agree with the abovereport.[facility]woodCT TRAUMA HEAD WO [id number] 13:39:41Addendum by Macarena Paredes MD on 04/11/2020 [...] reviewed this study and agree with theabove report.[facility]woodCT TRAUMA CERVICAL SPINE WO [id number] 13:39:41Addendum by Macarena Paredes MD on 04/11/2020 [...] reviewed this study and agree with theabove report.[facility]CT TRAUMA THORACIC SPINE WO [id number] 13:39:41Addendum by Macarena Paredes MD on 04/11/2020 [...] reviewed this study and agree with theabove report.[facility]CT TRAUMA LUMBAR SPINE WO [id number] 13:39:41Addendum by Macarena Paredes MD on 04/11/2020 [...] reviewed this study and agree with theabove report.[facility] KingwoodType and Screen - The Type and Screen expires at midnight on the 3rd day after it was drawn. A current Type and Screen is required when RBCs are requested. For all other blood products, a Type and Screen performed during the current hospitalizati...2020-04-11 13:14:02 Test Item Value Reference Range Interpretation Comments ABO & RH (test code A POSITIVE Performe d at [facility] = 20) Laboratory [facility] [place] [address] s [address]Aycf Free: [phone] A No. [id number] IAT (test code = Negative Performed a t [facility] 1185) Laboratory [facility] [place] [address] s [address]Ahoh Free: [phone] A No. [id number] [facility]woodBasic Metabolic Panel (NA, K, CL, CO2, GLUCOSE, BUN, CREATININE, CA)2020-04-11 12:45:00 Test Item Value Reference Range Interpretation Comments NA (test code = 136 mmol/L 135-145 8830159172) K (test code = 4.7 mmol/L 3.5-5 Slight hemoly sis 4059607488) CL (test code = 102 mmol/L 98-108 8645721702) CO2 TOTAL (test 25 mmol/L 23-31 code = 7019004210) AGAP (test code = 2-16 2030661824) BUN (test code = 14 mg/dL 7-23 Slight hemo lysis 9147928942) GLUCOSE (test code 99 mg/dL 70-110 = 4040059158) CREATININE (test 0.85 mg/dL 0.5-1.04 code = 1074930302) CALCIUM (test code 9.0 mg/dL 8.6-10.6 = 0017182725) eGFR Calculation mL/min/1.73m2 (Non-) (test code = 7040887431) eGFR Calculation mL/min/1.73m2 () (test code = 8853201767) PAULA (test code = Association of PAULA) [...] or urine or abnormalities in imaging tests). [facility] KingwoodProthrombin Time / [id number] 12:41:00 Test Item Value Reference Range Interpretation Comments PROTIME PATIENT (test See_Comment [Auto mated message] code = 5964-2) The system [employer] generated this result transmitted ref erence range: 10.1 - 1 2.6 Seconds. The re ference range was not u sed to interpret this result as normal/abnor mal. INR (test code = 6301-6) Nor mal INR <1.1; Warfarin Therap eutic range 2.0 to 3. 0 or 2.5 to 3.5, dep ending upon the indica tions. Lab Interpretation (test Normal code = 29783-5) [facility] KingwoodaPTT2020-10-17 12:41:00 Test Item Value Reference Range Interpretation Comments APTT Patient (test code See_Comment L [Au tomated message] = 3173-2) The system [employer] generated this result transmitted ref erence range: 26 - 36 Seconds. The reference range was not used to int erpret this result as normal/abnormal . Lab Interpretation (test Abnormal code = 03668-9) [facility]woodProfile / [id number] 12:31:00 Test Item Value Reference Range Interpretation Comments WBC (test code = 6690-2) See_Comment H [A utomated message] The system [employer] generated this result transmit bhaskar reference range : 4.30 - 11.10 10*3/?L. The reference range was not used to interpret this result as normal/abnormal . RBC (test code = 789-8) See_Comment [Au tomated message] The system [employer] generated this result transmit bhaskar reference range [...] 777-3) See_Comment [Au tomated message] The system [employer] generated this result transmit bhaskar reference range : 166 - 358 10*3/?L. The reference range was not used to interpret this result as normal/abnormal . MPV (test code = 10.0 fL 9.5-12.9 81169-4) RDW-CV (test code = 12.9 % 12-15.5 788-0) RDW-SD (test code = 43.6 fL 39-49.9 31972-1) NRBC x10^3 (test code = <0.01 See_Comment [Au tomated message] 3992108688) The system [employer] generated this result transmit bhaskar reference range : 10*3/?L. The reference range was not used to interpret this result as normal/abnormal . NRBC/100 WBC (test code See_Comment [Au tomated message] = 5310626638) The system [employer] generated this result transmit bhaskar reference range : 0.0 - 10.0 /100 WBC s. The reference r micah was not used to interpret this result as normal/abnormal . IPF % (test code = 0007045549) Lab Interpretation (test Abnormal code = 51620-9) [facility] [id number] 02:32:00 Test Item Value Reference Range Interpretation Comments TROPONIN I (test 0.013 ng/mL See_Comment [Automated code = 2265753896) message] The system which generated this result [...] ? Lab Interpretation Normal (test code = 70584-1) [facility] / [facility] - DRUG SCREEN [id number] 05:48:00 Test Item Value Reference Range Interpretation Comments BENZO U (test code = Presumptive Positive Negative A 8305433727) ANN U (test code = Negative Negative 8974812942) AMPHET (test code = Presumptive Positive Negative A 8236776056) THC (test code = Negative Negative 2331209064) METHADONE (test code = Negative Negative 9732799674) Meth U (test code = Presumptive Positive Negative A 0772080929) OPIATES (test code = Negative Negative 6798104406) Cocaine Metabolite (test Negative Negative code = 9429221156) PROPOXY (test code = Negative Negative 4731790444) Tric U (test code = Negative Negative 5247525298) PCP (test code = Negative Negative 6536119139) OXYCOD (test code = Negative Negative 7285942630) PAULA (test code = PAULA) Urine Drug [...] testing). Lab Interpretation (test Abnormal code = 61053-0) [facility] CHEST 1 [id number] 04:51:01Impression: No acute cardiopulmonary changes. Preliminary Report [...] reviewed this study and agree withthe above report.[facility] KingwoodTROPONIN [id number] 04:48:00 Test Item Value Reference Range Interpretation Comments TROPONIN I (test 0.018 ng/mL See_Comment [Automated code = 3472781241) message] The system which generated this result [...] ? Lab Interpretation Normal (test code = 16892-4) [facility]woodN-TERMINAL [id number] 04:45:00 Test Item Value Reference Range Interpretation Comments NT-proBNP (test code 309 pg/mL See_Comment H [Autom ated = 0985407931) message] The system which generated this result transmitted reference range : <=125. The reference range was not used to interpret this result as normal/abnormal . PAULA (test code = PAULA) Biotin has been reported to cause a negative bias, interpret results relative to patient's use of biotin. Lab Interpretation Abnormal (test code = 13319-1) [facility]woodD-[id number] 04:43:00 Test Item Value Reference Interpretation Comments Range D-DIMER (test code = <0.27 See_Comment [Autom ated 4416556083) message] The system which generated this result [...] diagnosis. Lab Interpretation Normal (test code = 13754-8) [facility]woodCOVID-19 (ID NOW RAPID TESTING)2020-04-10 04:42:00 Test Item Value Reference Range Interpretation Comments SARS-CoV-2 Rapid ID NOW Not Detected Not Detected (test code = 44211-5) PAULA (test code = PAULA) ID NOW COVID-19 Assay is an isothermal nucleic acid amplification test intended for the qualitative detection of nucleic acid from SARS-CoV-2 viral RNA in nasopharyngeal (SALES ARCHITECT) specimens. It is used under Emergency Use [...] indicated. Lab Interpretation Normal (test code = 07250-4) [facility]woodMAGNESIUM2020-10-16 04:37:00 Test Item Value Reference Range Interpretation Comments MAGNESIUM (test code = 8624466141) 1.7 mg/dL 1.7-2.4 Lab Interpretation (test code = Normal 20781-0) [facility]woodCOMP. METABOLIC PANEL (73253)2020-04-10 04:36:00 Test Item Value Reference Range Interpretation Comments NA (test code = 135 mmol/L 135-145 2453892101) K (test code = 3.4 mmol/L 3.5-5 L 9808555262) CL (test code = 99 mmol/L 98-108 2122437357) CO2 TOTAL (test code = 24 mmol/L 23-31 8241508292) AGAP (test code = 2-16 3312524057) BUN (test code = 8 mg/dL 7-23 7256106693) GLUCOSE (test code = 119 mg/dL 70-110 H 0814929255) CREATININE (test code = 0.71 mg/dL 0.5-1.04 4772081591) TOTAL BILI (test code = 0.5 mg/dL 0.1-1.6 1821954718) CALCIUM (test code = 10.9 mg/dL 8.6-10.6 H 2824991516) T PROTEIN (test code = 8.1 g/dL 6.3-8.2 7576281862) ALBUMIN (test code = 4.4 g/dL 3.5-5 1969426147) ALK PHOS (test code = 85 U/L 34-122 7540911615) ALTv (test code = 51 U/L 5-35 H 1742-6) AST(SGOT) (test code = 42 U/L 13-40 H 0723105464) eGFR Calculation mL/min/1.73m2 (Non-) (test code = 9944704111) eGFR Calculation mL/min/1.73m2 () (test code = 6729172518) PAULA (test code = PAULA) Association of [...] tests). Lab Interpretation Abnormal (test code = 54879-0) [facility] KingwoodLIPASE2020-10-16 04:36:00 Test Item Value Reference Range Interpretation Comments LIPASE (test code = 5917075249) 193 U/L 0-220 Lab Interpretation (test code = Normal 26444-4) [facility] WITH [id number] 04:22:00 Test Item Value Reference Range Interpretation [...] RDW-SD (test code = 41.7 fL 39-49.9 85625-4) RDW-CV (test code = 12.5 % 12-15.5 788-0) PLT (test code = See_Comment [Automated 777-3) message] The sy stem which generated this result transmitted reference range : 166 - 358 10*3/ ?L. The reference r micah was not used to interpret this result as normal/abnormal . MPV (test code = 9.5 fL 9.5-12.9 49583-7) NRBC/100 WBC (test See_Comment [Automat ed code = 8411172987) message] The system which generated this result transmitted reference range : 0.0 - 10.0 /100 WBCs. The refer ence range was not u sed to interpret th is result as normal/abnormal . NRBC x10^3 (test code <0.01 See_Comment [Auto mated = 2465247786) message] The s ystem which generated this result transmitted reference range : 10*3/?L. The reference range was not used to interpret this result as normal/abnormal . GRAN MAT (NEUT) % 67.8 % (test code = 770-8) IMM GRAN % (test code 0.50 % = 2919220592) LYMPH % (test code = 24.0 % 736-9) MONO % (test code = 6.6 % 5905-5) EOS % (test code = 0.6 % 713-8) BASO % (test code = 0.5 % 706-2) GRAN MAT x10^3(ANC) 7.32 10*3/uL 1.88-7.09 H (test code = 3005717326) IMM GRAN x10^3 (test 0.05 10*3/uL 0-0.06 code = 9689805530) LYMPH x10^3 (test code 2.58 10*3/uL 1.32-3.29 = 731-0) MONO x10^3 (test code 0.71 10*3/uL 0.33-0.92 = 742-7) EOS x10^3 (test code = 0.06 10*3/uL 0.03-0.39 711-2) BASO x10^3 (test code 0.05 10*3/uL 0.01-0.07 = 704-7) Lab Interpretation Abnormal (test code = 71600-7) [facility]. METABOLIC PANEL (84211)2020-02-25 19:07:00 Test Item Value Reference Range Interpretation Comments NA (test code = 135 mmol/L 135-145 5276880384) K (test code = 3.7 mmol/L 3.5-5 8056026740) CL (test code = 106 mmol/L 98-108 7157752430) CO2 TOTAL (test code = 21 mmol/L 23-31 L 2470584076) AGAP (test code = 2-16 7151123564) BUN (test code = 9 mg/dL 7-23 7152720131) GLUCOSE (test code = 116 mg/dL 70-110 H 8760087619) CREATININE (test code = 0.57 mg/dL 0.5-1.04 4647977995) TOTAL BILI (test code = 0.7 mg/dL 0.1-1.6 9471040627) CALCIUM (test code = 9.4 mg/dL 8.6-10.6 2322068333) T PROTEIN (test code = 8.2 g/dL 6.3-8.2 2266672611) ALBUMIN (test code = 4.6 g/dL 3.5-5 9423806236) ALK PHOS (test code = 116 U/L 34-122 1718357390) ALTv (test code = 67 U/L 5-35 H 1742-6) AST(SGOT) (test code = 70 U/L 13-40 H 6887515331) eGFR Calculation mL/min/1.73m2 (Non-) (test code = 2534045133) eGFR Calculation mL/min/1.73m2 () (test code = 8801669801) PAULA (test code = PAULA) Association of [...] tests). Lab Interpretation Abnormal (test code = 61380-1) [facility] WITH [id number] 18:51:00 Test Item Value Reference Range Interpretation Comments WBC (test code = See_Comment [Automated message] 6690-2) The system [employer] generated this result transmitted ref erence range: 4.30 - 1 1.10 10*3/?L. The re ference range was not u sed to interpret this result as normal/abnor mal. RBC (test code = See_Comment [Automated message] 349-8) The system [employer] generated this result transmitted ref erence range: [...] RDW-SD (test code 41.6 fL 39-49.9 = 92441-9) RDW-CV (test code 12.6 % 12-15.5 = 788-0) PLT (test code = See_Comment [Automated message] 777-3) The system [employer] generated this result transmitted ref erence range: 166 - 35 8 10*3/?L. The re ference range was not u sed to interpret this result as normal/abnor mal. MPV (test code = 10.0 fL 9.5-12.9 62449-5) NRBC/100 WBC (test See_Comment [Automat ed message] code = 7848453213) The syste m which generated this result transmitted ref erence range: 0.0 - 10 .0 /100 WBCs. The refer ence range was not u sed to interpret this result as normal/abnor mal. NRBC x10^3 (test <0.01 See_Comment [Automated message] code = 7677775560) The syste m which generated this result transmitted ref erence range: 10*3/?L. The reference range was not used to interpr et this result as normal/abnormal . GRAN MAT (NEUT) % 63.1 % (test code = 770-8) IMM GRAN % (test 0.40 % code = 7767575396) LYMPH % (test code 27.0 % = 736-9) MONO % (test code 8.0 % = 5905-5) EOS % (test code = 0.6 % 713-8) BASO % (test code 0.9 % = 706-2) GRAN MAT 5.02 10*3/uL 1.88-7.09 x10^3(ANC) (test code = 8486659898) IMM GRAN x10^3 0.03 10*3/uL 0-0.06 (test code = 7502271370) LYMPH x10^3 (test 2.15 10*3/uL 1.32-3.29 code = 731-0) MONO x10^3 (test 0.64 10*3/uL 0.33-0.92 code = 742-7) EOS x10^3 (test 0.05 10*3/uL 0.03-0.39 code = 711-2) BASO x10^3 (test 0.07 10*3/uL 0.01-0.07 code = 704-7) [facility]LV[facility] W/[id number] 18:17:32NPO 4 hours. Do not withhold medsProcedure: [...] PMDictated By: MIGUEL GILMANDate: 08/22/2019 18:11[facility] , [id number] 17:09:00 Test Item Value Reference Range Interpretation Comments (Urine) (test code = Negative PREGU) [facility] URINALYSIS WITHOUT [id number] 17:08:00 Test Item Value Reference Range Interpretation Comments Color (test code = UCOLR) Light yellow Lt. Yellow A Clarity (test code = UCLAR) Clear Glucose (test code = UGLUC) Negative Negative N Bilirubin (test code = UBILI) Negative Negative N Ketones (test code = UKET) Negative Negative N Specific [place] (test code = 1.015 1.005-1.030 A USPGR) Blood (test code = UBLD) Negative Negative N PH (test code = UPH) 5.5 4.5-8.0 A Protein (test code = UPROT) Negative Negative N Urobilinogen (test code = U 0.2 >0.2 N UROB) Nitrite (test code = UNITR) Negative Negative N Leukocyte Esterase (test code = Negative Negative N ULEUK) [facility] 16:39:00 Test Item Value Reference [...] ( 4 - SerumAlbumin)] EGFR if >60 [place] (test code mL/min/1.73m\\ = EGFRAA) S\\2 EGFR if Non- >60 Estimate d Glomerular [place] (test code mL/min/1.73m\\ Filtrat ion Rate (eGFR) [...] and management of c hronic kidney failure. [id number] 16:39:00 Test Item Value Reference Range Interpretation Comments Lipase (test code = LIPA) 178 U/L 73-393 [facility] CBC WITH AUTO [id number] 16:16:00 Test Item Value Reference Range Interpretation [...] (test code = IG%) 0.4 % 0.0-0.4 [facility]XR ELBOW MIN 3 [id number] 17:59:10Procedure: XR ELBOW MIN 3 VIEWSOrder Date: 08/19/2019 2:54 PMOrdering Provider: FIOAN Vincentinical Indication: [id number]: Pain of left elbow jointComparison: NoneFINDINGS:There is [...] 08/19/201917:52 [facility] PELVIS W [id number] 01:59:29 No acute intra- abdominal process. 3.2 [...] reviewed this study and agree with the abovereport.[facility] Test, Urine 2019-07-13 00:29:00 Test Item Value Reference Range Interpretation Comments POCT PREG (test code = 1605) NEGATIVE Lab Interpretation (test code = Normal 28566-6) [facility]woodUrinalysis2020-01-17 23:44:00 Test Item Value Reference Range Interpretation Comments APPEARANCE (test code = Clear Clear 6121433557) COLOR (test code = Straw Yellow A 8722925168) PH (test code = 4.8-8.0 5914471307) SP GRAVITY (test code = 1.003-1.030 7038889708) GLU U QUAL (test code = Normal Normal 7319370154) BLOOD (test code = Negative Negative 1885639822) KETONES (test code = Negative Negative 5745072818) PROTEIN (test code = Negative Negative 2887-8) UROBILIN (test code = Normal Normal 9571097466) BILIRUBIN (test code = Negative Negative 9140410884) NITRITE (test code = Negative Negative 1615505584) LEUK JONATHON (test code = Negative Negative 9686560352) RBC/HPF (test code = See_Comment [Autom ated message] 7709017641) The system [employer] generated this result transmitted ref erence range: 0 - 3 HP F. The reference range was not used to int erpret this result as normal/abnormal . WBC/HPF (test code = See_Comment [Autom ated message] 3020375286) The system [employer] generated this result transmitted ref erence range: 0 - 5 HP F. The reference range was not used to int erpret this result as normal/abnormal . BACTERIA (test code = Negative Negative 6787122889) SQ EPITH (test code = <1 See_Comment [Auto mated message] 4742114019) The system [employer] generated this result transmitted ref erence range: <=2 HPF. The reference range was not used to int erpret this result as normal/abnormal . Lab Interpretation (test Abnormal code = 88342-5) [facility]. METABOLIC PANEL (40297)2019-07-12 23:30:00 Test Item Value Reference Range Interpretation Comments NA (test code = 141 mmol/L 135-145 6364838552) K (test code = 3.5 mmol/L 3.5-5 4875014679) CL (test code = 105 mmol/L 98-108 6638402523) CO2 TOTAL (test code = 27 mmol/L 23-31 9652273948) AGAP (test code = 2-16 2891309608) BUN (test code = 9 mg/dL 7-23 7840629002) GLUCOSE (test code = 80 mg/dL 70-110 2236962097) CREATININE (test code = 0.50 mg/dL 0.5-1.04 4975229382) TOTAL BILI (test code = 0.4 mg/dL 0.1-1.8 3077413139) CALCIUM (test code = 8.7 mg/dL 8.6-10.6 0784289501) T PROTEIN (test code = 7.4 g/dL 6.3-8.2 1716460107) ALBUMIN (test code = 4.2 g/dL 3.5-5 3722889183) ALK PHOS (test code = 90 U/L 34-122 6190933329) ALTv (test code = 157 U/L 5-35 H 1742-6) AST(SGOT) (test code = 151 U/L 13-40 H 3588342804) eGFR Calculation mL/min/1.73m2 (Non-) (test code = 0090428221) eGFR Calculation mL/min/1.73m2 () (test code = 5394565380) PAULA (test code = PAULA) Association of [...] tests). Lab Interpretation Abnormal (test code = 50676-9) [facility]woodLipase [id number] 23:30:00 Test Item Value Reference Range Interpretation Comments LIPASE (test code = 6982752794) 86 U/L 0-220 Lab Interpretation (test code = Normal 45421-0) [facility]woodCB WITH [id number] 23:16:00 Test Item Value Reference Range Interpretation Comments WBC (test code = See_Comment [Automated 4255-2) message] The sy stem which generated this result transmitted reference range : 4.30 - 11.10 10*3/?L. The reference range was not used to interpret this result as normal/abnormal . RBC (test code = See_Comment [Automated 566-8) message] The sy stem which generated this [...] RDW-SD (test code = 45.1 fL 39-49.9 80860-7) RDW-CV (test code = 13.3 % 12-15.5 788-0) PLT (test code = See_Comment [Automated 777-3) message] The sy stem which generated this result transmitted reference range : 166 - 358 10*3/ ?L. The reference r micah was not used to interpret this result as normal/abnormal . MPV (test code = 9.3 fL 9.5-12.9 L 80959-3) NRBC/100 WBC (test See_Comment [Automat ed code = 8995091914) message] The system which generated this result transmitted reference range : 0.0 - 10.0 /100 WBCs. The refer ence range was not u sed to interpret th is result as normal/abnormal . NRBC x10^3 (test code <0.01 See_Comment [Auto mated = 5170802896) message] The s ystem which generated this result transmitted reference range : 10*3/?L. The reference range was not used to interpret this result as normal/abnormal . GRAN MAT (NEUT) % 52.8 % (test code = 770-8) IMM GRAN % (test code 0.20 % = 7876732407) LYMPH % (test code = 36.2 % 736-9) MONO % (test code = 7.3 % 5905-5) EOS % (test code = 2.4 % 713-8) BASO % (test code = 1.1 % 706-2) GRAN MAT x10^3(ANC) 2.47 10*3/uL 1.88-7.09 (test code = 2993531529) IMM GRAN x10^3 (test <0.03 0-0.06 code = 4981303186) LYMPH x10^3 (test code 1.69 10*3/uL 1.32-3.29 = 731-0) MONO x10^3 (test code 0.34 10*3/uL 0.33-0.92 = 742-7) EOS x10^3 (test code = 0.11 10*3/uL 0.03-0.39 711-2) BASO x10^3 (test code 0.05 10*3/uL 0.01-0.07 = 704-7) Lab Interpretation Abnormal (test code = 55564-1) [facility]woodXR CHEST 1 [id number] 16:58:56* * * * * * * * ORIGINAL REPORT * * * * * * * *EXAM: XR CHEST 1 VW HISTORY: Hx of cardiomegaly and angina, recent ED visit for CP, states thather heart is? COMPARISON: None. FINDINGS: The heart and great vessels are normal and the lungs are well expanded andclear.[facility], Radiant Results Inft User - 03/06/2019 11:59 AM CDT* * * * * * * * ORIGINAL REPORT * * * * * * * *EXAM: XR CHEST 1 VWHISTORY: Hx of cardiomegaly and angina, recent ED visit for CP, states thather heart is COMPARISON: None.FINDINGS:Theheart and great vessels are normal and the lungs are well expanded andclear.[facility]
[2022-07-30] MEDS ORDERED: NA CHLORIDE 0.9% 1,000 ML ONE (16:29)
[2022-07-30] MEDS ORDERED: ONDANSETRON 4 MG/2 ML VIAL ONE (16:29)
[2022-07-30 16:55] LABS: Absolute Lymphocytes (CBC) 2.2 K/uL (0.7-4.9); Lymphocytes % 34.2 % (15.3-44.8); MCV 87.3 fL (80-100)
[2022-07-30 17:06] LABS: Potassium 3.8 mmol/L (3.5-5.1); Troponin High Sensitivity 12.2 pg/mL (<58.9)
--- NOTE | 2022-07-30 17:09 | RAD REPORT ---
EXAM DESCRIPTION: CT - Head Brain Wo Cont - 07/30/2022 4:48 pm CLINICAL HISTORY: Headache COMPARISON: 2020 TECHNIQUE: Computed axial tomography of the head was obtained. IV contrast was not requested. All CT scans are performed using dose optimization technique as appropriate and may include automated exposure control or mA/KV adjustment according to patient size. FINDINGS: An intracranial bleed is not seen The ventricles are normal in caliber No significant hypodense areas within the brain visualized No extra-axial fluid collection is noted. Fluid within the sinuses/ mastoids is not seen IMPRESSION: No acute intracranial abnormality is seen If patient's symptoms persist MRI of the brain would be recommended
[2022-07-30] MEDS ORDERED: MORPHINE 4 MG/ML SYR ONE (17:45)
--- NOTE | 2022-07-30 18:22 | RAD REPORT ---
EXAM DESCRIPTION: [facility] Single View07/30/2022 5:58 pm CLINICAL HISTORY: Chest pain COMPARISON: June 2022 FINDINGS: The lungs appear clear of acute infiltrate. The heart is normal size IMPRESSION: No acute abnormalities displayed
--- NOTE | 2022-07-30 18:28 | ER ---
Nurse's Notes [facility] Name: Denise Wick Age: 42 yrs Sex: Female : 1980 Arrival Date: 07/30/2022 Time: 16:08 Bed 15 Private MD: Diagnosis: Chest pain, unspecified;Headache Presentation: 07/30 16:19 Chief complaint: EMS states: n/v, and headache that started about an hour ago with high kc6 blood pressure. Coronavirus screen: Vaccine status: Patient reports being unvaccinated. At this time, the client does not indicate any symptoms associated with coronavirus-19. Ebola Screen: No symptoms or risks identified at this time. Initial Sepsis Screen: Does the patient meet any 2 criteria? No. Patient's initial sepsis screen is negative. Does the patient have a suspected source of infection? No. Patient's initial sepsis screen is negative. Risk Assessment: Do you want to hurt yourself or someone else? Patient reports no desire to harm self or others. Onset of symptoms was July 30, 2022. 16:19 Method Of Arrival: EMS: [facility] kc6 16:19 Acuity: CHRISTINA 3 kc6 Triage Assessment: 16:14 General: Appears in no apparent distress. uncomfortable, Behavior is calm, cooperative, kc6 appropriate for age. Pain: Complains of pain in head Pain does not radiate. Pain currently is 8 out of 10 on a pain scale. Quality of pain is described as dull, Pain began 1 hour ago. Is continuous, Alleviated by nothing. Also complains of no other associated symptoms. EENT: No signs and/or symptoms were reported regarding the EENT system. Neuro: Neal Agitation-Sedation Scale (RASS): 0 - Alert and Calm Level of Consciousness is awake, alert, obeys commands, Oriented to person, place, time, situation, Appropriate for age. Cardiovascular: Heart tones S1 S2 present Capillary refill < 3 seconds. Respiratory: Airway is patent Trachea midline Respiratory effort is even, unlabored, Respiratory pattern is regular, symmetrical. GI: Reports nausea, vomiting. : No signs and/or symptoms were reported regarding the genitourinary system. Derm: No signs and/or symptoms reported regarding the dermatologic system. Skin is intact, Skin is pink, warm \T\ dry. Musculoskeletal: No signs and/or symptoms reported regarding the musculoskeletal system. Circulation, motion, and sensation intact. Capillary refill < 3 seconds, Range of motion: intact in all extremities. Historical: - Allergies: 16:14 Codeine; kc6 16:14 PENICILLINS; kc6 16:14 Toradol; kc6 16:14 Tramadol HCl; kc6 - Home Meds: 16:14 levothyroxine oral [Active]; Tegretol Oral [Active]; Hydrocodone [Active]; kc6 - PMHx: 16:14 Angina; Anxiety; Bipolar disorder; Hypertension; Hypothyroidism; kc6 - PSHx: 16:14 section; Ligation of fallopian tube; kc6 - Immunization history:: Client reports having NOT received the Covid vaccine. Flu vaccine is not up to date. - Social history:: Smoking status: Patient reports the use of cigarette tobacco products, smokes one-half pack cigarettes per day. - Family history:: not pertinent. - Hospitalizations: : No recent hospitalization is reported. Screenin:20 [facility] ED Fall Risk Assessment (Adult) History of falling in the last 3 months, kc6 including since admission No falls in past 3 months (0 pts) Confusion or Disorientation No (0 pts) Intoxicated or Sedated No (0 pts) Impaired Gait No (0 pts) Mobility Assist Device Used No (0 pt) Altered Elimination No (0 pt) Score/Fall Risk Level 0 - 2 = Low Risk Oriented to surroundings, Maintained a safe environment, Educated pt \T\ family on fall prevention, incl call for assistance when getting out of bed, Assessed \T\ reinforced patient's understanding of fall precautions, Hourly rounding (assess needs \T\ fall precautionary measures) done. Abuse screen: Denies threats or abuse. Denies injuries from another. Nutritional screening: No deficits noted. Tuberculosis screening: No symptoms or risk factors identified. Assessment: 17:19 Reassessment: Patient appears in no apparent distress at this time. No changes from kc6 previously documented assessment. Patient and/or family updated on plan of care and expected duration. Pain level reassessed. Patient is alert, oriented x 3, equal unlabored respirations, skin warm/dry/pink. Vital Signs: 16:14 BP 139 / 90; Pulse 107; Resp 13 S; Temp 97.8(O); Pulse Ox 100% on R/A; Weight 72.57 kg kc6 (R); Height 5 ft. 6 in. (167.64 cm) (R); Pain 8/10; 17:55 BP 128 / 83; Pulse 77; Resp 17 S; Pulse Ox 100% on R/A; kc6 16:14 Body Mass Index 25.82 (72.57 kg, 167.64 cm) kc6 Mcgraw Coma Score: 18:24 Eye Response: spontaneous(4). Verbal Response: oriented(5). Motor Response: obeys rn commands(6). Total: 15. ED Course: 16:08 Patient arrived in ED. am2 16:08 Brennon Saenz MD is Private Physician. am2 16:11 Johnny Diggs PA is PHCP. [facility] 16:11 Noah Steven MD is Attending Physician. [facility] 16:14 Maricruz Olivas, DRISS is Primary Nurse. kc6 16:14 Arm band placed on. kc6 16:20 Triage completed. kc6 16:20 Patient has correct armband on for positive identification. Bed in low position. Call kc6 light in reach. Side rails up X2. 16:42 Inserted saline lock: 20 gauge in right antecubital area, using aseptic technique. kc6 Blood collected. 16:50 CT Head Brain wo Cont In Process Unspecified. EDMS 17:59 XRAY Chest (1 view) In Process Unspecified. EDMS 18:30 No provider procedures requiring assistance completed. IV discontinued, intact, kc6 bleeding controlled, No redness/swelling at site. Pressure dressing applied. Administered Medications: 16:42 Drug: NS 0.9% 1000 ml Route: IV; Rate: 1000 ml; Site: right antecubital; kc6 17:42 Follow up: Response: No adverse reaction; IV Status: Completed infusion; IV Intake: kc6 1000ml 16:42 Drug: Zofran (Ondansetron) 4 mg Route: IVP; Site: right antecubital; kc6 17:40 Follow up: Response: No adverse reaction; Nausea is decreased kc6 17:44 Drug: morphine 4 mg Route: IVP; Infused Over: 4 mins; Site: right antecubital; kc6 18:30 Follow up: Response: No adverse reaction; Pain is decreased; RASS: Alert and Calm (0) kc6 Medication: 18:31 VIS not applicable for this client. kc6 Intake: 17:42 IV: 1000ml; Total: 1000ml. kc6 Outcome: 18:27 Discharge ordered by . rn 18:31 Discharged to home ambulatory. kc6 18:31 Condition: stable 18:31 Discharge instructions given to patient, Instructed on discharge instructions, follow up and referral plans. Demonstrated understanding of instructions, follow-up care. 18:32 Patient left the ED. kc6 Signatures: Dispatcher [employer] EDMS Johnny Diggs PA PA jmm Nieto, Roman, MD MD rn Moreno, Amanda am2 Campbell, Kaitlyn RN RN kc6
--- NOTE | 2022-07-30 18:28 | EDPHYS ---
Physician Documentation [facility] Name: Denise Wick Age: 42 yrs Sex: Female : 1980 Arrival Date: 07/30/2022 Time: 16:08 Bed 15 Private MD: ED Physician Noah Steven HPI: 07/30 16:32 This 42 yrs old Female presents to ER via EMS with complaints of chest pain, headache. rn 16:32 The patient complains of pain to the forehead. The patient describes the headache as rn aching. Onset: The symptoms/episode began/occurred just prior to arrival. Associated signs and symptoms: Pertinent negatives: fever, neck stiffness, rash, vision changes, vision loss, vertigo. Severity of symptoms: At its worst the pain was moderate, in the emergency department the pain is unchanged. Headache History: The patient has had previous headaches and this one is similar to previous episodes. The symptoms are alleviated by nothing. the symptoms are aggravated by nothing. The patient has experienced similar episodes in the past. The patient has not recently seen a physician. Pt reports chest pain and headache that began a few hours ago, has hx of multiple visits for chest pain without clear etiology. Denies sob/drug use/ETOH/trauma/focal neurological problem/vision changes. Reports vomiting and dry heaving. No fever. NO neck stiffness. Chest pain and headache similar to previous episodes. . Historical: - Allergies: 16:14 Codeine; kc6 16:14 PENICILLINS; kc6 16:14 Toradol; kc6 16:14 Tramadol HCl; kc6 - Home Meds: 16:14 levothyroxine oral [Active]; Tegretol Oral [Active]; Hydrocodone [Active]; kc6 - PMHx: 16:14 Angina; Anxiety; Bipolar disorder; Hypertension; Hypothyroidism; kc6 - PSHx: 16:14 section; Ligation of fallopian tube; kc6 - Immunization history:: Client reports having NOT received the Covid vaccine. Flu vaccine is not up to date. - Social history:: Smoking status: Patient reports the use of cigarette tobacco products, smokes one-half pack cigarettes per day. - Family history:: not pertinent. - Hospitalizations: : No recent hospitalization is reported. ROS: 16:32 Constitutional: Negative for fever, chills, and weight loss, Eyes: Negative for injury, rn pain, redness, and discharge, Neck: Negative for injury, pain, and swelling, Cardiovascular: Negative for palpitations, and edema, Respiratory: Negative for shortness of breath, cough, wheezing, and pleuritic chest pain, Abdomen/GI: Negative for abdominal pain, diarrhea, and constipation, MS/Extremity: Negative for injury and deformity, Skin: Negative for injury, rash, and discoloration, Neuro: Negative for numbness, tingling, and seizure. Exam: 16:32 Constitutional: This is a well developed, well nourished patient who is awake, alert rn Head/Face: Normocephalic, atraumatic. Eyes: Periorbital areas with no swelling, redness, or edema. Neck: Supple, full range of motion without nuchal rigidity, or vertebral point tenderness. No Meningismus. Cardiovascular: Tachycardic, regular. No pulse deficits. Respiratory: No increased work of breathing, no retractions or nasal flaring. Abdomen/GI: Soft, non-tender Skin: Warm, dry MS/ Extremity: Pulses equal, no cyanosis. Neuro: Awake and alert, GCS 15, oriented to person, place, time, and situation. Cranial nerves II-XII grossly intact. Motor strength 5/5 in all extremities. Sensory grossly intact. Cerebellar exam normal. Vital Signs: 16:14 BP 139 / 90; Pulse 107; Resp 13 S; Temp 97.8(O); Pulse Ox 100% on R/A; Weight 72.57 kg kc6 (R); Height 5 ft. 6 in. (167.64 cm) (R); Pain 8/10; 17:55 BP 128 / 83; Pulse 77; Resp 17 S; Pulse Ox 100% on R/A; kc6 16:14 Body Mass Index 25.82 (72.57 kg, 167.64 cm) kc6 [place] Coma Score: 18:24 Eye Response: spontaneous(4). Verbal Response: oriented(5). Motor Response: obeys rn commands(6). Total: 15. MDM: 16:14 Patient medically screened. rn 18:24 Differential diagnosis: cluster headache, hypertensive headache, intracerebral rn hemorrhage, migraine, tension headache, vasomotor headache. Data reviewed: vital signs, nurses notes, lab test result(s), radiologic studies, CT scan, and as a result, I will discharge patient. Counseling: I had a detailed discussion with the patient and/or guardian regarding: the historical points, exam findings, and any diagnostic results supporting the discharge/admit diagnosis, lab results, radiology results, the need for outpatient follow up, to return to the emergency department if symptoms worsen or persist or if there are any questions or concerns that arise at home. Response to treatment: the patient's symptoms have mildly improved after treatment, and as a result, I will discharge patient. Special discussion: I discussed with the patient/guardian in detail that at this point there is no indication for admission to the hospital. It is understood, however, that if the symptoms persist or worsen the patient needs to return immediately for re-evaluation. Based on the history and exam findings, there is no indication for further emergent testing or inpatient evaluation. I discussed with the patient/guardian the need to see the neurologist for further evaluation of the symptoms. I discussed with the patient/guardian the need to see the primary care provider for further evaluation of the symptoms. ED course: CT head neg, trop neg, no ischemia on ECG, patient given morphine for pain, stopped nurse to tell her she needs to leave immediately because of an emergency with her . Stable vitals. No longer throwing up. NOt tearful. Pt insists on leaving and asks that everything be removed. Results printed and handed to patient, will dc home per her wishes. . 07/30 16:24 Order name: Basic Metabolic Panel; Complete Time: 17:33 rn 07/30 16:24 Order name: CBC with Diff; Complete Time: 17:33 rn 07/30 16:24 Order name: CT Head Brain wo Cont; Complete Time: 17:33 rn 07/30 16:24 Order name: NT PRO-BNP; Complete Time: 17:33 rn 07/30 16:24 Order name: Troponin HS; Complete Time: 17:33 rn 07/30 16:24 Order name: XRAY Chest (1 view); Complete Time: 18:22 rn 07/30 16:24 Order name: IV Start; Complete Time: 16:42 rn 07/30 16:24 Order name: EKG; Complete Time: 16:25 rn 07/30 16:24 Order name: Cardiac monitoring; Complete Time: 16:24 rn 07/30 16:24 Order name: EKG - Nurse/Tech; Complete Time: 16:28 rn 07/30 16:24 Order name: Labs collected and sent; Complete Time: 16:42 rn 07/30 16:24 Order name: O2 Per Protocol; Complete Time: 16:24 rn 07/30 16:24 Order name: O2 Sat Monitoring; Complete Time: 16:24 rn Administered Medications: 16:42 Drug: NS 0.9% 1000 ml Route: IV; Rate: 1000 ml; Site: right antecubital; kc6 17:42 Follow up: Response: No adverse reaction; IV Status: Completed infusion; IV Intake: kc6 1000ml 16:42 Drug: Zofran (Ondansetron) 4 mg Route: IVP; Site: right antecubital; kc6 17:40 Follow up: Response: No adverse reaction; Nausea is decreased kc6 17:44 Drug: morphine 4 mg Route: IVP; Infused Over: 4 mins; Site: right antecubital; kc6 18:30 Follow up: Response: No adverse reaction; Pain is decreased; RASS: Alert and Calm (0) kc6 Disposition Summary: 07/30/22 18:27 Discharge Ordered Location: Home rn Problem: an acute exacerbation rn Symptoms: have improved rn Condition: Stable rn Diagnosis - Chest pain, unspecified rn - Headache rn Followup: rn - With: Private Physician - When: As needed - Reason: Recheck today's complaints, Re-evaluation by your physician Discharge Instructions: - Discharge Summary Sheet rn - Nonspecific Chest Pain, Adult rn - General Headache Without Cause rn - Hypertension, Adult rn - Pain Without a Known Cause rn Forms: - Medication Reconciliation Form rn - Thank You Letter rn - Antibiotic rubber turner - Prescription Opioid Use rn Signatures: Dispatcher [employer] Noah Huffman MD MD rn Maricruz Olivas RN RN kc6
[2022-07-30 19:05] VITALS: TEMP 97.8; O2SAT 100
[2022-07-30 19:11] VITALS: BP 128/83
== END 2022-07-30 18:32 | disposition home or self-care (01) ==
LOC: ER 16:02
DX: R07.9 Chest pain, unspecified (principal); R51.9 Headache, unspecified; F31.9 Bipolar disorder, unspecified; I10 Essential (primary) hypertension; F17.210 Nicotine dependence, cigarettes, uncomplicated; Z88.0 Allergy status to penicillin; Z88.5 Allergy status to narcotic agent
CPT/HCPCS: 96361; 85025; 80048; 36415; 84484; 83880; 70450; 71045; 96375; 96374; 99284; J7030; J2405

== ENCOUNTER 2022-08-01 13:48 | Emergency (ER) | payer OTHER ==
--- OUTSIDE RECORDS SUMMARY | 2022-08-01 13:59 | XMS REPORT | Continuity of Care Document ---
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 Medical Branch meloxicam 2019-06 Yes 7.5mg Take 7.5 Uni vers 7.5 mg 0-21 mg by ity of tablet 02:02: mouth [place] [address] daily. Medical Branch metoprolol 2019-06 Yes 25mg Take 25 mg U nivers tartrate 25 0-21 by mouth ity of mg tablet 02:02: daily. [place] [address] Medical Branch omeprazole 2019-06 Yes 20mg Take 20 mg U n[facility] 20 mg 0-21 by mouth ity of capsule 02:02: daily. [place] [address] Medical Branch pravastatin 2019-06 Yes 20mg Take 20 mg [facility] 20 mg 0-21 by mouth ity of tablet 02:02: at [place] [address] bedtime. Medical Branch triamcinolo 2019-06 Yes .1% Apply 0.1 U nivers ne 0-21 % to ity of acetonide/l 02:02: area(s) 2 [place] (two) Medical (ARISTOCORT times Branch A TOPICAL) daily. gabapentin 2019-06 Yes 300mg Take 300 Un [facility] 300 mg 0-21 mg by ity of capsule 02:02: mouth 2 [place] [address] (two) Medical times Branch daily. levothyroxi 2019-06 Yes 100ug Take 100 U nivers ne 100 mcg 0-21 mcg by ity of tablet 02:02: mouth [place] [address] daily. Medical Branch meloxicam 2019-06 Yes 7.5mg Take 7.5 Uni vers 7.5 mg 0-21 mg by ity of tablet 02:02: mouth [place] [address] daily. Medical Branch metoprolol 2019-06 Yes 25mg Take 25 mg U nivers tartrate 25 0-21 by mouth ity of mg tablet 02:02: daily. [place] [address] Medical Branch omeprazole 2019-06 Yes 20mg Take 20 mg [facility] nivers 20 mg 0-21 by mouth ity of capsule 02:02: daily. [place] [address] Medical Branch pravastatin 2019-06 Yes 20mg Take 20 mg [facility] 20 mg 0-21 by mouth ity of tablet 02:02: at [place] [address] bedtime. Medical Branch triamcinolo 2019-06 Yes .1% Apply 0.1 U nivers ne 0-21 % to ity of acetonide/l 02:02: area(s) 2 [place] [address] [place] (two) Medical (ARISTOCORT times Branch A TOPICAL) daily. gabapentin 2019-06 Yes 300mg Take 300 [facility] 300 mg 0-21 mg by ity of capsule 02:02: mouth 2 [place] [address] (two) Medical times Branch daily. levothyroxi 2019-06 Yes 100ug Take 100 U nivers ne 100 mcg 0-21 mcg by ity of tablet 02:02: mouth [place] [address] daily. Medical Branch meloxicam 2019-06 Yes 7.5mg Take 7.5 Uni vers 7.5 mg 0-21 mg by ity of tablet 02:02: mouth [place] [address] daily. Medical Branch metoprolol 2019-06 Yes 25mg Take 25 mg U nivers tartrate 25 0-21 by mouth ity of mg tablet 02:02: daily. [place] [address] Medical Branch omeprazole 2019-06 Yes 20mg Take 20 mg [facility] nivers 20 mg 0-21 by mouth ity of capsule 02:02: daily. [place] [address] Medical Branch pravastatin 2019-06 Yes 20mg Take 20 mg [facility] 20 mg 0-21 by mouth ity of tablet 02:02: at [place] [address] bedtime. Medical Branch triamcinolo 2019-06 Yes .1% Apply 0.1 U nivers ne 0-21 % to ity of acetonide/l 02:02: area(s) 2 [place] [address] (two) Medical (ARISTOCORT times Branch A TOPICAL) daily. gabapentin 2019-1 Yes 300mg Take 300 Un [facility] 300 mg 0-21 mg by ity of capsule 02:02: mouth 2 [place] [address] (two) Medical times Branch daily. levothyroxi 2019-06 Yes 100ug Take 100 U nivers ne 100 mcg 0-21 mcg by ity of tablet 02:02: mouth [place] [address] daily. Medical Branch meloxicam 2019-06 Yes 7.5mg Take 7.5 Uni vers 7.5 mg 0-21 mg by ity of tablet 02:02: mouth [place] [address] daily. Medical Branch metoprolol 2019-06 Yes 25mg Take 25 mg U nivers tartrate 25 0-21 by mouth ity of mg tablet 02:02: daily. [place] [address] Medical Branch omeprazole 2019-06 Yes 20mg Take 20 mg U nivers 20 mg 0-21 by mouth ity of capsule 02:02: daily. [place] [address] Medical Branch pravastatin 2019-06 Yes 20mg Take 20 mg [facility] 20 mg 0-21 by mouth ity of tablet 02:02: at [place] [address] bedtime. Medical Branch triamcinolo 2019-06 Yes .1% Apply 0.1 U nivers ne 0-21 % to ity of acetonide/l 02:02: area[facility]s) [facility] [place] [facility] (AR[facility]OC[facility] times Branch A TOPICAL) daily. gabapentin 2019-06 Yes 300mg Take 300 Un [facility] 300 mg 0-21 mg by ity of capsule 02:02: mouth 2 [place] [address] (two) Medical times Branch daily. levothyroxi 2019-06 Yes 100ug Take 100 U nivers ne 100 mcg 0-21 mcg by ity of tablet 02:02: mouth [place] [address] daily. Medical Branch meloxicam 2019-06 Yes 7.5mg Take 7.5 [facility] vers 7.5 mg 0-21 mg by ity of tablet 02:02: mouth [place] [address] daily. Medical Branch metoprolol 2019-06 Yes 25mg Take 25 mg U nivers tartrate 25 0-21 by mouth ity of mg tablet 02:02: daily. [place] [address] Medical Branch omeprazole 2019-06 Yes 20mg Take 20 mg [facility] nivers 20 mg 0-21 by mouth ity of capsule 02:02: daily. [address] Branch pravastatin 2019-06 Yes 20mg Take 20 mg [facility] 20 mg 0-21 by mouth ity of tablet 02:02: at [place] [address] bedtime. Medical Branch triamcinolo 2019- Yes .1% Apply 0.1 U nivers ne 0-21 % to ity of acetonide/l 02:02: area(s) 2 [place] [address] (two) Medical (ARISTOCORT times Branch A TOPICAL) daily. gabapentin 2019-06 Yes 300mg Take 300 [facility] 300 mg 0-21 mg by ity of capsule 02:02: mouth 2 [place] [address] (two) Medical times Branch daily. levothyroxi 2019- Yes 100ug Take 100 U nivers ne 100 mcg 0-21 mcg by ity of tablet 02:02: mouth [place] [address] daily. Medical Branch meloxicam 2019-06 Yes 7.5mg Take 7.5 Uni vers 7.5 mg 0-21 mg by ity of tablet 02:02: mouth [place] [address] daily. Medical Branch metoprolol 2019-06 Yes 25mg Take 25 mg U nivers tartrate 25 0-21 by mouth ity of mg tablet 02:02: daily. [place] [address] Medical Branch omeprazole 2019-06 Yes 20mg Take 20 mg U nivers 20 mg 0-21 by mouth ity of capsule 02:02: daily. [place] [address] Medical Branch pravastatin 2019-06 Yes 20mg Take 20 mg [facility] 20 mg 0-21 by mouth ity of tablet 02:02: at [place] [address] bedtime. Medical Branch triamcinolo 2019-06 Yes .1% Apply 0.1 U nivers ne 0-21 % to ity of acetonide/l 02:02: area(s) 2 [place] [address] (two) Medical (ARISTOCORT times Branch A TOPICAL) daily. gabapentin 2019-06 Yes 300mg Take 300 [facility] 300 mg 0-21 mg by ity of capsule 02:02: mouth 2 [place] [address] (two) Medical times Branch daily. levothyroxi 2019- Yes 100ug Take 100 U nivers ne 100 mcg 0-21 mcg by ity of tablet 02:02: mouth [place] [address] daily. Medical Branch meloxicam 2019- Yes 7.5mg Take 7.5 [facility] vers 7.5 mg 0-21 mg by ity of tablet 02:02: mouth [place] [address] daily. Medical Branch metoprolol 2019- Yes 25mg Take 25 mg U nivers tartrate 25 0-21 by mouth ity of mg tablet 02:02: daily. [place] [address] Medical Branch omeprazole 2019-06 Yes 20mg Take 20 mg U nivers 20 mg 0-21 by mouth ity of capsule 02:02: daily. [place] [address] Medical Branch pravastatin 2019-06 Yes 20mg Take 20 mg [facility] 20 mg 0-21 by mouth ity of tablet 02:02: at [place] [address] bedtime. Medical Branch triamcinolo 2019-06 Yes .1% Apply 0.1 U nivers ne 0-21 % to ity of acetonide/l 02:02: area(s) 2 [place] [address] (two) Medical (ARISTOCORT times Branch A TOPICAL) daily. gabapentin 2019-06 Yes 300mg Take 300 Un [facility] 300 mg 0-21 mg by ity of capsule 02:02: mouth 2 [place] [address] (two) Medical times Branch daily. levothyroxi 2019-06 Yes 100ug Take 100 U nivers ne 100 mcg 0-21 mcg by ity of tablet 02:02: mouth [place] [address] daily. Medical Branch meloxicam 2019-06 Yes 7.5mg Take 7.5 Uni vers 7.5 mg 0-21 mg by ity of tablet 02:02: mouth [place] [address] daily. Medical Branch metoprolol 2019-06 Yes 25mg Take 25 mg U nivers tartrate 25 0-21 by mouth ity of mg tablet 02:02: daily. [place] [address] Medical Branch omeprazole 2019-06 Yes 20mg Take 20 mg U nivers 20 mg 0-21 by mouth ity of capsule 02:02: daily. [place] [address] Medical Branch pravastatin 2019-06 Yes 20mg Take 20 mg [facility] 20 mg 0-21 by mouth ity of tablet 02:02: at [place] [address] bedtime. Medical Branch triamcinolo 2019-06 Yes .1% Apply 0.1 U nivers ne 0-21 % to ity of acetonide/l 02:02: area(s) 2 [place] [address] [place] (two) Medical (ARISTOCORT times Branch A TOPICAL) daily. acetaminoph 2019-06- No [id number] 650mg Take 2 [facility] en 325 mg 0-20 10-21 tablets by ity of tablet 00:00: 04:59 mouth [place] 00 :00 every 6 Medical (six) Branch hours as needed for Alternate with ibuprofen for pain scale 4-6. ibuprofen 2019-06- No [id number] 600mg Take 3 [facility] 200 mg 0-20 10-21 tablets by ity of tablet 00:00: 04:59 mouth [place] 00 :00 every 6 Medical (six) Branch hours as needed (Alternate with acetaminop hen for pain). acetaminoph 2019-06- No [id number] 650mg Take 2 [facility] en 325 mg 0-20 10-21 tablets by ity of tablet 00:00: 04:59 mouth [place] 00 :00 every 6 Medical (six) Branch hours as needed for Alternate with ibuprofen for pain scale 4-6. ibuprofen 2019-06- No [id number] 600mg Take 3 [facility] 200 mg 0-20 10-21 tablets by ity of tablet 00:00: 04:59 mouth [place] 00 :00 every 6 Medical (six) Branch hours as needed (Alternate with acetaminop hen for pain). acetaminoph 2019-06- No [id number] 650mg Take 2 [facility] en 325 mg 0-20 10-21 tablets by ity of tablet 00:00: 04:59 mouth [place] 00 :00 every 6 Medical (six) Branch hours as needed for Alternate with ibuprofen for pain scale 4-6. ibuprofen 2019-06- No [id number] 600mg Take 3 [facility] 200 mg 0-20 10-21 tablets by ity of tablet 00:00: 04:59 mouth [place] 00 :00 every 6 Medical (six) Branch hours as needed (Alternate with acetaminop hen for pain). acetaminoph 2019-06- No [id number] 650mg Take 2 [facility] en 325 mg 0-20 10-21 tablets by ity of tablet 00:00: 04:59 mouth [place] 00 :00 every 6 Medical (six) Branch hours as needed for Alternate with ibuprofen for pain scale 4-6. ibuprofen 2019-06- No [id number] 600mg Take 3 [facility] 200 mg 0-20 10-21 tablets by ity of tablet 00:00: 04:59 mouth [place] 00 :00 every 6 Medical (six) Branch hours as needed (Alternate with acetaminop hen for pain). acetaminoph 2019-06- No [id number] 650mg Take 2 [facility] en 325 mg 0-20 10-21 tablets by ity of tablet 00:00: 04:59 mouth [place] 00 :00 every 6 Medical (six) Branch hours as needed for Alternate with ibuprofen for pain scale 4-6. ibuprofen 2019-06 No [id number] 600mg Take 3 [facility] 200 mg 0-20 10-21 tablets by ity of tablet 00:00: 04:59 mouth [place] 00 :00 every 6 Medical (six) Branch hours as needed (Alternate with acetaminop hen for pain). acetaminoph 2019-06 No [id number] 650mg Take 2 [facility] en 325 mg 0-20 10-21 tablets by ity of tablet 00:00: 04:59 mouth [place] 00 :00 every 6 Medical (six) Branch hours as needed for Alternate with ibuprofen for pain scale 4-6. ibuprofen 2019-06 No [id number] 600mg Take 3 [facility] 200 mg 0-20 10-21 tablets by ity of tablet 00:00: 04:59 mouth [place] 00 :00 every 6 Medical (six) Branch hours as needed (Alternate with acetaminop hen for pain). acetaminoph 2019-06 No [id number] 650mg Take 2 [facility] en 325 mg 0-20 10-21 tablets by ity of tablet 00:00: 04:59 mouth [place] 00 :00 every 6 Medical (six) Branch hours as needed for Alternate with ibuprofen for pain scale 4-6. ibuprofen 2019-06 No [id number] 600mg Take 3 [facility] 200 mg 0-20 10-21 tablets by ity of tablet 00:00: 04:59 mouth [place] 00 :00 every 6 Medical (six) Branch hours as needed (Alternate with acetaminop hen for pain). acetaminoph 2019-06- No [id number] 650mg Take 2 [facility] en 325 mg 0-20 10-21 tablets by ity of tablet 00:00: 04:59 mouth [place] 00 :00 every 6 Medical (six) Branch hours as needed for Alternate with ibuprofen for pain scale 4-6. ibuprofen 2019-06 No [id number] 600mg Take 3 [facility] 200 mg 0-20 10-21 tablets by ity of tablet 00:00: 04:59 mouth [place] 00 :00 every 6 Medical (six) Branch hours as needed (Alternate with acetaminop hen for pain). acetaminoph 2019-06- No [id number] 650mg Take 2 [facility] en 325 mg 0-20 10-21 tablets by ity of tablet 00:00: 04:59 mouth [place] 00 :00 every 6 Medical (six) Branch hours as needed for Alternate with ibuprofen for pain scale 4-6. ibuprofen 2019-06- No [id number] 600mg Take 3 [facility] 200 mg 0-20 10-21 tablets by ity of tablet 00:00: 04:59 mouth [place] 00 :00 every 6 Medical (six) Branch hours as needed (Alternate with acetaminop hen for pain). acetaminoph 2019-06- No [id number] 650mg Take 2 [facility] en 325 mg 0-20 10-21 tablets by ity of tablet 00:00: 04:59 mouth [place] 00 :00 every 6 Medical (six) Branch hours as needed for Alternate with ibuprofen for pain scale 4-6. ibuprofen 2019-06- No [id number] 600mg Take 3 [facility] 200 mg 0-20 10-21 tablets by ity of tablet 00:00: 04:59 mouth [place] 00 :00 every 6 Medical (six) Branch hours as needed (Alternate with acetaminop hen for pain). acetaminoph 2019-06- No [id number] 650mg Take 2 [facility] en 325 mg 0-20 10-21 tablets by ity of tablet 00:00: 04:59 mouth [place] 00 :00 every 6 Medical (six) Branch hours as needed for Alternate with ibuprofen for pain scale 4-6. ibuprofen 2019-06- No [id number] 600mg Take 3 [facility] 200 mg 0-20 10-21 tablets by ity of tablet 00:00: 04:59 mouth [place] 00 :00 every 6 Medical (six) Branch hours as needed (Alternate with acetaminop hen for pain). ibuprofen 2019-06- No [id number] 600mg Take 3 [facility] 200 mg 0-20 10-21 tablets by ity of tablet 00:00: 04:59 mouth [place] 00 :00 every 6 Medical (six) Branch hours as needed (Alternate with acetaminop hen for pain). ibuprofen 2019-06- No [id number] 600mg Take 3 [facility] 200 mg 0-20 10-21 tablets by ity of tablet 00:00: 04:59 mouth [place] 00 :00 every 6 Medical (six) Branch hours as needed (Alternate with acetaminop hen for pain). ibuprofen 2019-06- No [id number] 600mg Take 3 [facility] 200 mg 0-20 10-21 tablets by ity of tablet 00:00: 04:59 mouth [place] 00 :00 every 6 Medical (six) Branch hours as needed (Alternate with acetaminop hen for pain). acetaminoph 2019-06 No [id number] 650mg Take 2 [facility] en 325 mg 0-20 05-30 tablets by ity of tablet 00:00: 00:00 mouth [place] 00 :00 every 6 Medical (six) Branch hours as needed for Alternate with ibuprofen for pain scale 4-6. ALPRAZolam 2019-06 Yes .25mg 0.25 mg, Un sushant (XANAX) 0-19 Oral, BID, ity of tablet 0.25 01:00: First dose [place] mg 00 on [facility] 04/12/20 Branch at 2000, Until Discontinu ed, Routine ziprasidone 2019-06- No 20mg 20 mg, Uni vers (GEODON) 0-18 10-25 Intramuscu ity of injection 18:20: 18:19 lar, [place] 20 mg 44 :44 Q6HPRN, Medical Starting Branch [place] 04/12/20 at 1320, Until [place] 04/19/20 at 1319, Routine, Agitation carBAMazepi 2019-06 Yes 200mg 200 mg, Un sushant ne 0-18 Oral, ity of (TEGRETOL) 03:00: Q12H, [place] tablet 200 00 First dose Med ical mg on [facility] Branch 04/11/20 at 2200, Until Discontinu ed, Routine methocarbam 2019-06 Yes 500mg 500 mg, Un sushant oL 0-18 Oral, QID, ity of (ROBAXIN) 01:00: First dose [place] tablet 500 00 on [facility] Medical mg 04/11/20 Branch at 2000, [...] [place] mg 00 First dose Medical on [facility] Branch 04/11/20 at 1215, Until Discontinu ed, Routine levothyroxi 2019-06 Yes 100ug 100 mcg, U nivers ne 0-17 Oral, ity of (SYNTHROID) 17:15: QAM-0600, [place] tablet 100 00 First dose Med ical mcg on [facility] Branch 04/11/20 at 1215, Until Discontinu [...] 0-17 Oral, ity of (TYLENOL) 17:04: Q6HPRN, [place] tablet 650 27 Starting Medic al mg Sat Branch 04/11/20 at 1204, Until Discontinu ed, Routine, Pain (scale 1-3) docusate 2019-06 Yes 100mg 100 mg, Unive rs (COLACE) 0-17 Oral, ity of capsule 100 14:00: DAILY, [place] mg 00 First dose Medical on [facility] Branch 04/11/20 at 0900, Until Discontinu [...] dose, Fri Branch 04/10/20 at 2245, Routine
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 clonazePAM 2019-06 Yes [id number] 1mg Take 1 U nivers (KLONOPIN) 0-17 tablet by ity of 1 mg tablet 00:00: mouth 3 [place] (three) Medical times Branch daily as needed (anxiety). clonazePAM 2019-06 Yes [id number] 1mg Take 1 U nivers (KLONOPIN) 0-17 tablet by ity of 1 mg tablet 00:00: mouth 3 [place] (three) Medical times Branch daily as needed (anxiety). clonazePAM 2019- Yes [id number] 1mg Take 1 U nivers (KLONOPIN) 0-17 tablet by ity of 1 mg tablet 00:00: mouth 3 [place] (three) Medical times Branch daily as needed (anxiety). clonazePAM 2019- Yes [id number] 1mg Take 1 U nivers (KLONOPIN) 0-17 tablet by ity of 1 mg tablet 00:00: mouth 3 [place] (three) Medical times Branch daily as needed (anxiety). clonazePAM 2019- Yes [id number] 1mg Take 1 U nivers (KLONOPIN) 0-17 tablet by ity of 1 mg tablet 00:00: mouth 3 [place] (three) Medical times Branch daily as needed (anxiety). clonazePAM 2019-06 Yes [id number] 1mg Take 1 U nivers (KLONOPIN) 0-17 tablet by ity of 1 mg tablet 00:00: mouth 3 [place] (three) Medical times Branch daily as needed (anxiety). clonazePAM 2019-06 Yes [id number] 1mg Take 1 U nivers (KLONOPIN) 0-17 tablet by ity of 1 mg tablet 00:00: mouth 3 [place] (three) Medical times Branch daily as needed (anxiety). clonazePAM 2019-06 Yes [id number] 1mg Take 1 U nivers (KLONOPIN) 0-17 [...] Fri Med ical tablet 1 07/12/19 at [facility] tablet 2215, RAJANI ondansetron 2019- No [...] 07/12/19 at 1545, RAJANI HYDROcodone 2019-0 Yes [id number] 1{tbl} Take 1 [facility] -acetaminop 1-17 tablet by ity of hen 5-325 00:00: mouth [place] mg tablet 00 every 6 Medical (six) Branch hours as needed for Pain (scale 1-3). HYDROcodone 2019-0 Yes [id number] 1{tbl} Take 1 [facility] -acetaminop 1-17 tablet by ity of hen 5-325 00:00: mouth [place] mg tablet 00 every 6 Medical (six) Branch hours as needed for Pain (scale 1-3). HYDROcodone 2019-0 Yes [id number] 1{tbl} Take 1 [facility] -acetaminop 1-17 tablet by ity of hen 5-325 00:00: mouth [place] mg tablet 00 every 6 Medical (six) Branch hours as needed for Pain (scale 1-3). HYDROcodone 2019-0 Yes [id number] 1{tbl} Take 1 [facility] -acetaminop 1-17 tablet by ity of hen 5-325 00:00: mouth [place] mg tablet 00 every 6 Medical (six) Branch hours as needed for Pain (scale 1-3). HYDROcodone 2019-0 Yes [id number] 1{tbl} Take 1 [facility] -acetaminop 1-17 tablet by ity of hen 5-325 00:00: mouth [place] mg tablet 00 every 6 Medical (six) Branch hours as needed for Pain (scale 1-3). HYDROcodone 2020-0 Yes [id number] 1{tbl} Take 1 [facility] -acetaminop 1-17 tablet by ity of hen 5-325 00:00: mouth [place] mg tablet 00 every 6 Medical (six) Branch hours as needed for Pain (scale 1-3). HYDROcodone 2019-0 Yes [id number] 1{tbl} Take 1 [facility] -acetaminop 1-17 tablet by ity of hen 5-325 00:00: mouth [place] mg tablet 00 every 6 Medical (six) Branch hours as needed for Pain (scale 1-3). HYDROcodone Yes [id number] 1{tbl} Take 1 [facility] -acetaminop 1-17 tablet by ity of hen 5-325 00:00: mouth [place] mg tablet 00 every 6 Medical (six) Branch hours as needed for Pain (scale 1-3). HYDROcodone Yes [id number] 1{tbl} Take 1 [facility] -acetaminop 1-17 tablet by ity of hen 5-325 00:00: mouth [place] mg tablet 00 every 6 Medical (six) Branch hours as needed for Pain (scale 1-3). HYDROcodone Yes [id number] 1{tbl} Take 1 [facility] -acetaminop 1-17 tablet by ity of hen 5-325 00:00: mouth [place] mg tablet 00 every 6 Medical (six) Branch hours as needed for Pain (scale 1-3). HYDROcodone Yes [id number] 1{tbl} Take 1 [facility] -acetaminop 1-17 tablet by ity of hen 5-325 00:00: mouth [place] mg tablet 00 every 6 Medical (six) Branch hours as needed for Pain (scale 1-3). HYDROcodone Yes [id number] 1{tbl} Take 1 [facility] -acetaminop 1-17 tablet by ity of hen 5-325 00:00: mouth [place] mg tablet 00 every 6 Medical (six) Branch hours as needed for Pain (scale 1-3). HYDROcodone Yes [id number] 1{tbl} Take 1 [facility] -acetaminop 1-17 tablet [...] mouth ity of mg tablet 06:37: daily. [place] [address] Medical Branch omeprazole Yes 20mg Take 20 mg U nivers 20 mg 7-13 by mouth ity of capsule 06:37: daily. [place] [address] Medical Branch pravastatin Yes 20mg Take 20 mg [facility] 20 mg 7-13 by mouth ity of tablet 06:37: at [place] [address] bedtime. Medical Branch triamcinolo Yes .1% Apply 0.1 U nivers ne 7-13 % to ity of acetonide/l 06:37: area(s) 2 [place] [address] [place] (two) Medical (ARISTOCORT times Branch A TOPICAL) daily. levothyroxi 0 Yes 100ug Take 100 U nivers ne 100 mcg 7-13 mcg by ity of tablet 06:37: mouth [place] [address] daily. Medical Branch meloxicam Yes 7.5mg Take 7.5 Uni vers 7.5 mg 7-13 mg by ity of tablet 06:37: mouth [place] [address] daily. Medical Branch metoprolol Yes 25mg Take 25 mg U nivers tartrate 25 7-13 by mouth ity of mg tablet 06:37: daily. [place] [address] Medical Branch omeprazole Yes 20mg Take 20 mg U nivers 20 mg 7-13 by mouth ity of capsule 06:37: daily. [place] [address] Medical Branch pravastatin Yes 20mg Take 20 mg [facility] 20 mg 7-13 by mouth ity of tablet 06:37: at [place] [address] bedtime. Medical Branch triamcinolo Yes .1% Apply [...] mouth ity of mg tablet 06:37: daily. [place] [address] Medical Branch omeprazole 0 Yes 20mg Take 20 mg U nivers 20 mg 7-13 by mouth ity of capsule 06:37: daily. [place] [address] Medical Branch pravastatin Yes 20mg Take 20 mg [facility] 20 mg 7-13 by mouth ity of tablet 06:37: at [place] [address] bedtime. Medical Branch triamcinolo Yes .1% Apply 0.1 U nivers ne 7-13 % to ity of acetonide/l 06:37: area(s) 2 [place] .s.[address]. [place] (two) Medical (ARISTOCORT times Branch A TOPICAL) daily. levothyroxi Yes 100ug Take 100 U nivers ne 100 mcg 7-13 mcg by ity of tablet 06:37: mouth [place] [address] daily. Medical Branch meloxicam Yes 7.5mg Take 7.5 Uni vers 7.5 mg 7-13 mg by ity of tablet 06:37: mouth [place] [address] daily. Medical Branch metoprolol Yes 25mg Take 25 mg U nivers tartrate 25 7-13 by mouth ity of mg tablet 06:37: daily. [place] [address] Medical Branch omeprazole Yes 20mg Take 20 mg U nivers 20 mg 7-13 by mouth ity of capsule 06:37: daily. [place] [address] Medical Branch pravastatin Yes 20mg Take 20 mg [facility] 20 mg 7-13 by mouth ity of tablet 06:37: at [place] [address] bedtime. Medical Branch triamcinolo Yes .1% Apply [...] mg by ity of tablet 06:37: mouth [place] [address] daily. Medical Branch metoprolol 2019-0 Yes 25mg Take 25 mg U nivers tartrate 25 7-13 by mouth ity of mg tablet 06:37: daily. [place] [address] Medical Branch omeprazole 2019-0 Yes 20mg Take 20 mg U nivers 20 mg 7-13 by mouth ity of capsule 06:37: daily. [place] [address] Medical Branch pravastatin 2019-0 Yes 20mg Take 20 mg [facility] 20 mg 7-13 by mouth ity of tablet 06:37: at [place] [address] bedtime. Medical Branch triamcinolo Yes .1% Apply 0.1 U nivers ne 7-13 % to ity of acetonide/l 06:37: area(s) 2 [place] .s.[address]. [place] (two) Medical (ARISTOCORT times Branch A TOPICAL) daily. levothyroxi 2019-0 Yes 100ug Take 100 U nivers ne 100 mcg 7-13 mcg by ity of tablet 06:37: mouth [place] [address] daily. Medical Branch meloxicam 2019-0 Yes 7.5mg Take 7.5 Uni vers 7.5 mg 7-13 mg by ity of tablet 06:37: mouth [place] [address] daily. [facility] metoprolol 0 Yes 25mg Take 25 mg U nivers tartrate 25 7-13 by mouth ity of mg tablet 06:37: daily. [place] [address] [facility] omeprazole 2019-0 Yes 20mg Take 20 mg U nivers 20 mg 7-13 by mouth ity of capsule 06:37: daily. [place] [address] [facility] pravastatin 2019-0 Yes 20mg Take 20 mg Univers 20 mg 7-13 by mouth ity of tablet 06:37: at [place] [address] bedtime. Medical Branch triamcinolo Yes .1% Apply [...] by ity of capsule 06:27: mouth 2 [place] 56 (two) Medical times Branch daily. gabapentin 2019-0 Yes 300mg Take 300 Un sushant 300 mg 7-13 mg by ity of capsule 06:27: mouth 2 [place] 56 (two) Medical times Branch daily. gabapentin 2019-0 Yes 300mg Take 300 Un sushant 300 mg 7-13 mg by ity of capsule 06:27: mouth 2 [place] 56 (two) Medical times Branch daily. gabapentin 2019-0 Yes 300mg Take 300 Un sushant 300 mg 7-13 mg by ity of capsule 06:27: mouth 2 [place] 56 (two) Medical times Branch daily. gabapentin 2019-0 Yes 300mg Take 300 Un sushant 300 mg 7-13 mg by ity of capsule 06:27: mouth 2 [place] 56 (two) Medical times Branch daily. Vital Signs Vital Name Observation Time Observation Value Comments Source Heart rate 2021-09-22 03:30:00 87 /min [facility] Respiratory rate 2021-09-22 03:30:00 20 /min [facility] Oxygen saturation in 2021-09-22 03:30:00 100 /min [facility] Arterial blood by [facility] Pulse oximetry Branch Systolic blood 2021-09-22 03:00:00 148 mm[Hg] [facility] 2021-09-22 03:00:00 86 mm[Hg] Unive [facility] Body temperature 2021-09-22 01:12:00 36.67 Yamila [facility] Body height 2021-09-22 01:12:00 167.6 cm [facility] Body weight 2021-09-22 01:12:00 72.576 kg [facility] BMI 2021-09-22 01:12:00 25.82 kg/m2 [facility] Systolic blood 2021-03-25 15:30:00 153 mm[Hg] Univer sity [facility] Diastolic blood 2021-03-25 15:30:00 96 mm[Hg] [facility] 2021-03-25 15:30:00 100 /min [facility] Respiratory rate 2021-03-25 15:30:00 20 /min [facility] [place] [facility] Oxygen saturation in 2021-03-25 15:30:00 97 /min [facility] Arterial blood by [facility] Pulse oximetry Branch Body temperature 2021-03-25 08:55:00 36.39 Yamila [facility] [place] [facility] Body weight 2021-03-25 08:55:00 81.194 kg [facility] [place] [facility] BMI 2021-03-25 08:55:00 28.89 kg/m2 [facility] [place] [facility] Systolic blood 2020-11-23 17:24:00 104 mm[Hg] Univer sity of [facility] [place] [facility] Diastolic blood 2020-11-23 17:24:00 68 mm[Hg] Unive rsity [facility] [place] [facility] Heart rate 2020-11-23 17:24:00 91 /min [facility] [place] [facility] Respiratory rate 2020-11-23 17:24:00 18 /min [facility] [place] [facility] Oxygen saturation in 2020-11-23 17:24:00 97 /min [facility] Arterial blood by [facility] Pulse oximetry Branch Body temperature 2020-11-23 12:24:00 36.94 Yamila [facility] [place] [facility] Body weight 2020-11-23 09:53:00 81.194 kg [facility] [place] [facility] BMI 2020-11-23 09:53:00 28.89 kg/m2 [facility] [place] [facility] Body height 2020-11-22 21:41:00 167.6 cm [facility] [place] [facility] Systolic blood 2020-11-23 17:24:00 104 mm[Hg] Univer sity [facility] [place] [facility] Diastolic blood 2020-11-23 17:24:00 68 mm[Hg] Unive rsity [facility] [place] [facility] Heart rate 2020-11-23 17:24:00 91 /min [facility] [place] [facility] Respiratory rate 2020-11-23 17:24:00 18 /min [facility] [place] [facility] Oxygen saturation in 2020-11-23 17:24:00 97 /min [facility] Arterial blood by [facility] Pulse oximetry Branch Body temperature 2020-11-23 12:24:00 36.94 Yamila [facility] [place] [facility] Body weight 2020-11-23 09:53:00 81.194 kg [facility] [place] [facility] BMI 2020-11-23 09:53:00 28.89 kg/m2 [facility] [place] [facility] Body height 2020-11-22 21:41:00 167.6 cm [facility] [place] [facility] Systolic blood 2020-10-22 10:00:00 149 mm[Hg] Univer sity [facility] [place] [facility] Diastolic blood 2020-10-22 10:00:00 92 mm[Hg] Unive rsity [facility] [place] [facility] Heart rate 2020-10-22 10:00:00 89 /min [facility] [place] [facility] Body temperature 2020-10-22 10:00:00 36.78 Yamila [facility] [place] [facility] Respiratory rate 2020-10-22 10:00:00 16 /min [facility] [place] [facility] Oxygen saturation in 2020-10-22 10:00:00 97 /min [facility] Arterial blood by [place] [employer] [facility] Pulse oximetry Branch Body weight 2020-10-22 07:03:00 72.576 kg [facility] [place] [facility] BMI 2020-10-22 07:03:00 25.82 kg/m2 [facility] [place] [facility] Systolic blood 2020-10-22 10:00:00 149 mm[Hg] Univer sity [facility] [place] [facility] Diastolic blood 2020-10-22 10:00:00 92 mm[Hg] Unive rsity [facility] [place] [facility] Heart rate 2020-10-22 10:00:00 89 /min [facility] [place] [facility] Body temperature 2020-10-22 10:00:00 36.78 Yamila [facility] [place] [facility] Respiratory rate 2020-10-22 10:00:00 16 /min [facility] [place] [facility] Oxygen saturation in 2020-10-22 10:00:00 97 /min [facility] Arterial blood by [place] [employer] [facility] Pulse oximetry Branch Body weight 2020-10-22 07:03:00 72.576 kg [facility] [place] [facility] BMI 2020-10-22 07:03:00 25.82 kg/m2 [facility] [place] [facility] Systolic blood 2020-10-20 04:55:00 181 mm[Hg] Univer sity [facility] [place] [facility] Diastolic blood 2020-10-20 04:55:00 109 mm[Hg] Unive rsity [facility] [place] [facility] Heart rate 2020-10-20 04:55:00 126 /min [facility] [place] [facility] Body temperature 2020-10-20 04:55:00 36.72 Yamila [facility] [place] [facility] Respiratory rate 2020-10-20 04:55:00 17 /min [facility] [place] [facility] Body weight 2020-10-20 04:55:00 72.598 kg [facility] [place] [facility] BMI 2020-10-20 04:55:00 25.83 kg/m2 [facility] [place] [facility] Oxygen saturation in 2020-10-20 04:55:00 97 /min [facility] Arterial blood by [place] [employer] [facility] Pulse oximetry Branch Systolic blood 2020-10-20 04:55:00 181 mm[Hg] Univer sity [facility] [place] [facility] Diastolic blood 2020-10-20 04:55:00 109 mm[Hg] Unive rsity [facility] [place] [facility] Heart rate 2020-10-20 04:55:00 126 /min [facility] [place] [facility] Body temperature 2020-10-20 04:55:00 36.72 Yamila [facility] [place] [facility] Respiratory rate 2020-10-20 04:55:00 17 /min [facility] [place] [facility] Body weight 2020-10-20 04:55:00 72.598 kg [facility] [place] [facility] BMI 2020-10-20 04:55:00 25.83 kg/m2 [facility] [place] [facility] Oxygen saturation in 2020-10-20 04:55:00 97 /min [facility] Arterial blood by [place] [employer] [facility] Pulse oximetry Branch Systolic blood 2020-10-15 20:07:00 124 mm[Hg] Univer sity [facility] [place] [facility] Diastolic blood 2020-10-15 20:07:00 72 mm[Hg] Unive rsity [facility] [place] [facility] Heart rate 2020-10-15 20:07:00 97 /min [facility] [place] [facility] Body temperature 2020-10-15 20:07:00 36.83 Yamila [facility] [place] [facility] Respiratory rate 2020-10-15 20:07:00 17 /min [facility] [place] [facility] Oxygen saturation in 2020-10-15 20:07:00 96 /min [facility] Arterial blood by [place] [employer] [facility] Pulse oximetry Branch Body weight 2020-10-15 12:34:00 68.04 kg [facility] [place] [facility] BMI 2020-10-15 12:34:00 24.21 kg/m2 [facility] [place] [facility] Systolic blood 2020-10-15 20:07:00 124 mm[Hg] Univer sity [facility] [place] [facility] Diastolic blood 2020-10-15 20:07:00 72 mm[Hg] Unive rsity [facility] [place] [facility] Heart rate 2020-10-15 20:07:00 97 /min [facility] [place] [facility] Body temperature 2020-10-15 20:07:00 36.83 Yamila [facility] [place] [facility] Respiratory rate 2020-10-15 20:07:00 17 /min [facility] [place] [facility] Oxygen saturation in 2020-10-15 20:07:00 96 /min [facility] Arterial blood by [place] [employer] [facility] Pulse oximetry Branch Body weight 2020-10-15 12:34:00 68.04 kg [facility] [place] [facility] BMI 2020-10-15 12:34:00 24.21 kg/m2 [facility] [place] [facility] Systolic blood 2020-10-13 15:00:00 145 mm[Hg] Univer sity [facility] [place] [facility] Diastolic blood 2020-10-13 15:00:00 102 mm[Hg] Unive rsity [facility] [place] [facility] Heart rate 2020-10-13 15:00:00 115 /min [facility] [place] [facility] Respiratory rate 2020-10-13 15:00:00 22 /min [facility] [place] [facility] Oxygen saturation in 2020-10-13 15:00:00 100 /min [facility] Arterial blood by [place] [employer] [facility] Pulse oximetry Branch Body temperature 2020-10-13 09:40:00 37 Yamila [facility] [place] [facility] Body weight 2020-10-13 09:40:00 68.04 kg [facility] [place] [facility] BMI 2020-10-13 09:40:00 24.21 kg/m2 [facility] [place] [facility] Systolic blood 2020-10-13 15:00:00 145 mm[Hg] Univer sity [facility] [place] [facility] Diastolic blood 2020-10-13 15:00:00 102 mm[Hg] Unive rsity [facility] [place] [facility] Heart rate 2020-10-13 15:00:00 115 /min [facility] [place] [facility] Respiratory rate 2020-10-13 15:00:00 22 /min [facility] [place] [facility] Oxygen saturation in 2020-10-13 15:00:00 100 /min [facility] Arterial blood by [facility] steve Pulse oximetry Branch Body temperature 2020-10-13 09:40:00 37 Yamila [facility] [place] [facility] Body weight 2020-10-13 09:40:00 68.04 kg [facility] [place] [facility] BMI 2020-10-13 09:40:00 24.21 kg/m2 [facility] [place] [facility] Systolic blood 2020-09-17 03:41:00 147 mm[Hg] Univer sity [facility] [place] [facility] Diastolic blood 2020-09-17 03:41:00 98 mm[Hg] Unive rsity [facility] [place] [facility] Heart rate 2020-09-17 03:41:00 92 /min [facility] [place] [facility] Respiratory rate 2020-09-17 03:41:00 22 /min [facility] [place] [facility] Oxygen saturation in 2020-09-17 03:41:00 100 /min [facility] Arterial blood by [facility] Pulse oximetry Branch Body temperature 2020-09-17 02:45:00 37.17 Yamila [facility] [place] [facility] Body height 2020-09-17 02:45:00 167.6 cm [facility] [place] [facility] Body weight 2020-09-17 02:45:00 65.772 kg [facility] [place] [facility] BMI 2020-09-17 02:45:00 23.40 kg/m2 [facility] [place] [facility] Systolic blood 2020-09-17 03:41:00 147 mm[Hg] Univer sity [facility] [place] [facility] Diastolic blood 2020-09-17 03:41:00 98 mm[Hg] Unive rsity [facility] [place] [facility] Heart rate 2020-09-17 03:41:00 92 /min [facility] [place] [facility] Respiratory rate 2020-09-17 03:41:00 22 /min [facility] [place] [facility] Oxygen saturation in 2020-09-17 03:41:00 100 /min [facility] blood by [place] [employer] [facility] Pulse oximetry Branch Body temperature 2020-09-17 02:45:00 37.17 Yamila [facility] [place] [facility] Body height 2020-09-17 02:45:00 167.6 cm [facility] [place] [facility] Body weight 2020-09-17 02:45:00 65.772 kg [facility] [place] [facility] BMI 2020-09-17 02:45:00 23.40 kg/m2 [facility] [place] [facility] Systolic blood 2020-09-06 11:02:00 146 mm[Hg] Univer sity [facility] [place] [facility] Diastolic blood 2020-09-06 11:02:00 93 mm[Hg] Unive rsity [facility] [place] [facility] Heart rate 2020-09-06 11:02:00 97 /min [facility] [place] [facility] Respiratory rate 2020-09-06 11:02:00 21 /min [facility] [place] [facility] Oxygen saturation in 2020-09-06 11:02:00 99 /min [facility] Arterial blood by [place] [employer] [facility] Pulse oximetry Branch Body temperature 2020-09-06 10:31:00 36.17 Yamila [facility] [place] [facility] Body height 2020-09-06 09:39:00 167.6 cm [facility] [place] [facility] Body weight 2020-09-06 09:39:00 68.04 kg [facility] [place] [facility] BMI 2020-09-06 09:39:00 24.21 kg/m2 [facility] [place] [facility] Systolic blood 2020-09-06 11:02:00 146 mm[Hg] Univer sity [facility] [place] [facility] Diastolic blood 2020-09-06 11:02:00 93 mm[Hg] Unive rsity [facility] [place] [facility] Heart rate 2020-09-06 11:02:00 97 /min [facility] [place] [facility] Respiratory rate 2020-09-06 11:02:00 21 /min [facility] [place] [facility] Oxygen saturation in 2020-09-06 11:02:00 99 /min [facility] Arterial blood by [place] [employer] [facility] Pulse oximetry Branch Body temperature 2020-09-06 10:31:00 36.17 Yamila [facility] [place] [facility] Body height 2020-09-06 09:39:00 167.6 cm [facility] [place] [facility] Body weight 2020-09-06 09:39:00 68.04 kg [facility] [place] [facility] BMI 2020-09-06 09:39:00 24.21 kg/m2 [facility] [place] [facility] Systolic blood 2020-09-02 03:00:00 171 mm[Hg] Univer sity [facility] [place] [facility] Diastolic blood 2020-09-02 03:00:00 102 mm[Hg] Unive rsity [facility] [place] [facility] Heart rate 2020-09-02 03:00:00 100 /min [facility] [place] [facility] Body temperature 2020-09-02 03:00:00 36 Yamila [facility] [place] [facility] Respiratory rate 2020-09-02 03:00:00 17 /min [facility] [place] [facility] Oxygen saturation in 2020-09-02 03:00:00 98 /min [facility] Arterial blood by [place] [employer] Pulse oximetry Branch Body weight 2020-09-01 23:02:00 65.772 kg [facility] [place] [facility] BMI 2020-09-01 23:02:00 23.40 kg/m2 [facility] [place] [facility] Systolic blood 2020-09-02 03:00:00 171 mm[Hg] Univer sity [facility] [place] [facility] Diastolic blood 2020-09-02 03:00:00 102 mm[Hg] Unive rsity [facility] [place] [facility] Heart rate 2020-09-02 03:00:00 100 /min [facility] [place] [facility] Body temperature 2020-09-02 03:00:00 36 Yamila [facility] [place] [facility] Respiratory rate 2020-09-02 03:00:00 17 /min [facility] [place] [facility] Oxygen saturation in 2020-09-02 03:00:00 98 /min [facility] Arterial blood by [employer] steve Pulse oximetry Branch Body weight 2020-09-01 23:02:00 65.772 kg [facility] [place] [facility] BMI 2020-09-01 23:02:00 23.40 kg/m2 [facility] [place] [facility] Systolic blood 2020-04-14 13:08:00 143 mm[Hg] Univer sity [facility] [place] [facility] Diastolic blood 2020-04-14 13:08:00 90 mm[Hg] Unive rsity [facility] [place] [facility] Heart rate 2020-04-14 13:08:00 84 /min [facility] [place] [facility] Body temperature 2020-04-14 13:08:00 36.28 Yamila [facility] [place] [facility] Respiratory rate 2020-04-14 13:08:00 16 /min [facility] [place] [facility] Oxygen saturation in 2020-04-14 13:08:00 99 /min [facility] Arterial blood by [facility] Pulse oximetry Branch Body weight 2020-04-11 11:56:00 63.504 kg [facility] [place] [facility] BMI 2020-04-11 11:56:00 22.60 kg/m2 [facility] [place] [facility] Body height 2020-04-11 11:55:00 167.6 cm [facility] [place] [facility] Systolic blood 2020-04-11 05:30:00 148 mm[Hg] Univer sity [facility] [place] [facility] Diastolic blood 2020-04-11 05:30:00 88 mm[Hg] Unive rsity [facility] [place] [facility] Heart rate 2020-04-11 05:30:00 89 /min [facility] [place] [facility] Respiratory rate 2020-04-11 05:30:00 26 /min [facility] [place] [facility] Oxygen saturation in 2020-04-11 05:30:00 100 /min [facility] Arterial blood by [facility] Pulse oximetry Branch Body temperature 2020-04-11 04:03:00 37.17 Yamila [facility] [place] [facility] Body weight 2020-04-11 04:03:00 63.504 kg [facility] [place] [facility] BMI 2020-04-11 04:03:00 22.60 kg/m2 [facility] [place] [facility] Systolic blood 2020-04-11 02:59:52 126 mm[Hg] Univer sity [facility] [place] [facility] Diastolic blood 2020-04-11 02:59:52 94 mm[Hg] Unive rsity [facility] [place] [facility] Heart rate 2020-04-11 02:59:52 104 /min [facility] [place] [facility] Body temperature 2020-04-11 02:59:52 36.56 Yamila [facility] [place] [facility] Respiratory rate 2020-04-11 02:59:52 19 /min [facility] [place] [facility] Oxygen saturation in 2020-04-11 02:59:52 98 /min [facility] Arter[facility] blood by [place] [employer] [facility] Pulse oximetry Branch Body weight 2020-04-11 01:37:00 63.504 kg [facility] [place] [facility] BMI 2020-04-11 01:37:00 22.60 kg/m2 [facility] [place] [facility] Systolic blood 2020-04-10 04:53:11 150 mm[Hg] Univer sity [facility] [place] [facility] Diastolic blood 2020-04-10 04:53:11 101 mm[Hg] Unive rsity [facility] [place] [facility] Heart rate 2020-04-10 04:53:11 121 /min [facility] [place] [facility] Respiratory rate 2020-04-10 04:53:11 16 /min [facility] [place] [facility] Oxygen saturation in 2020-04-10 04:53:11 99 /min [facility] Arterial blood by [facility] Pulse oximetry Branch Body temperature 2020-04-10 04:00:00 36.44 Yamila [facility] [place] [facility] Body weight 2020-04-10 04:00:00 68.04 kg [facility] [place] [facility] BMI 2020-04-10 04:00:00 24.21 kg/m2 [facility] [place] [facility] Systolic blood 2020-02-25 18:30:00 164 mm[Hg] Univer sity [facility] [place] [facility] Diastolic blood 2020-02-25 18:30:00 112 mm[Hg] Unive rsity [facility] [place] [facility] Heart rate 2020-02-25 18:30:00 107 /min [facility] [place] [facility] Respiratory rate 2020-02-25 18:30:00 23 /min [facility] [place] [facility] Oxygen saturation in 2020-02-25 18:30:00 98 /min [facility] blood by [facility] Pulse oximetry Branch Body temperature 2020-02-25 18:20:00 36.89 Yamila [facility] [place] [facility] Body height 2020-02-25 18:20:00 167.6 cm [facility] [place] [facility] Body weight 2020-02-25 18:20:00 68.04 kg [facility] [place] [facility] BMI 2020-02-25 18:20:00 24.21 kg/m2 [facility] [place] [facility] Systolic blood 2019-07-13 03:12:00 125 mm[Hg] Univer sity of pressure [facility] Diastolic blood 2019-07-13 03:12:00 81 mm[Hg] Unive rsity of pressure [facility] Heart rate 2019-07-13 03:12:00 75 /min [facility] Body temperature 2019-07-13 03:12:00 36.72 Yamila [facility] Respiratory rate 2019-07-13 03:12:00 18 /min [facility] Oxygen saturation in 2019-07-13 03:12:00 99 /min [facility] Arterial blood by [facility] Pulse oximetry [place] Body weight 2019-07-12 21:01:00 72.576 kg [facility] BMI 2019-07-12 21:01:00 25.82 kg/m2 [facility] Procedures Procedure Date / Time Performing Clinician Source Performed XR CHEST 1 VW 2021-09-22 01:58:50 Georgia Estrada [facility] MAGNESIUM 2021-09-22 01:43:00 Georgia Estrada [facility] TROPONIN I 2021-09-22 01:43:00 Georgia Estrada [facility] COMP. METABOLIC PANEL 2021-09-22 01:43:00 Georgia Estrada [facility] ([id number]) [facility] POCT TEST 2021-09-22 01:43:00 Georgia Estrada [facility] N-TERMINAL PRO-BNP 2021-09-22 01:43:00 Georgia Estrada [facility] y [facility] CBC WITH DIFF 2021-09-22 01:42:00 Georgia Estrada [facility] URINALYSIS 2021-09-22 01:42:00 Georgia Estrada [facility] NOTICE OF PRIVACY 2021-09-22 01:07:45 Doctor Unassigned, No Univ [facility] PRACTICES Name [facility] CONSENT/REFUSAL FOR 2021-09-22 01:06:43 [facility] Name [facility] CT CHEST PULMONARY 2021-03-25 11:45:06 Arnold Coughlin [facility] ANGIOGRAM Medical Branch TROPONIN I 2021-03-25 11:31:00 Arnold Coughlin [facility] D-DIMER 2021-03-25 10:22:00 Arnold Coughlin [facility] LIPASE 2021-03-25 09:35:00 Arnold Coughlin [facility] TROPONIN I 2021-03-25 09:35:00 Arnold Coughlin [facility] COMP. METABOLIC PANEL 2021-03-25 09:35:00 Arnold Coughlin [facility] ([id number]) Medical Branch CBC WITH DIFF 2021-03-25 09:35:00 Arnold Coughlin [facility] HB ECG ROUTINE & RHYTHM 2021-03-25 08:52:04 Arnold Coughlin [facility] ACTIVATED PARTIAL 2020-11-23 10:36:00 Monique [facility] MAGNESIUM 2020-11-23 05:05:00 [facility] BASIC METABOLIC PANEL 2020-11-23 05:05:00 Monique [facility] (NA, K, CL, CO2, Medical Branch GLUCOSE, BUN, CREATININE, CA) CBC WITH DIFF 2020-11-23 05:05:00 [facility] ACTIVATED PARTIAL 2020-11-23 [facility]:05[facility] ANGIO[facility] CHEST 2020-11-22 20:21:07 [facility] POCT TEST 2020-11-22 19:43:00 Rosmery Mai [facility] TROPONIN I 2020-11-22 19:38:00 [facility] FREE T4 2020-11-22 19:38:00 [facility] THYROID STIMULATING 2020-11-22 19:38:00 [facility] HORMONE [facility] LIPID PANEL 2020-11-22 19:38:00 [id number]TOTAL Medical Branch CHOLESTEROL, TRIGLYCERIDES, HDL) COVID-19 (ID NOW RAPID 2020-11-22 19:18:00 Carmen Lott [facility] TESTING) Medical [place] TROPONIN I 2020-11-22 14:45:00 Sergei SadiAnkit [facility] XR CHEST 1 VW 2020-11-22 12:41:09 Miguelito Salter [facility] URINE DRUG (IMMUNOASSAY) 2020-11-22 11:53:00 Miguelito Salter [facility] SCREEN URINALYSIS 2020-11-22 11:53:00 Miguelito Salter [facility] CK (CREATINE KINASE) + 2020-11-22 11:52:00 Miguelito Salter [facility] Branch LIPASE 2020-11-22 11:52:00 Miguelito Salter [facility] TROPONIN I 2020-11-22 11:52:00 Miguelito Salter [facility] COMP. METABOLIC PANEL 2020-11-22 11:52:00 Miguelito Salter [facility] ([id number]) Medical Branch ETHANOL 2020-11-22 11:52:00 Miguelito Salter [facility] SERUM DRUG (IMMUNOASSAY) 2020-11-22 11:52:00 Miguelito Salter [facility] SCREEN CBC WITH DIFF 2020-11-22 11:52:00 Miguelito Salter [facility] GLYCOSYLATED HEMOGLOBIN 2020-11-22 11:52:00 [facility] (A1C) [facility] D-DIMER 2020-11-22 11:52:00 Miguelito Salter [facility] POCT TEST 2020-10-22 10:12:00 Chaka Steinberg [facility] URINE DRUG (IMMUNOASSAY) 2020-10-22 10:10:00 Chaka Steinberg [facility] SCREEN URINALYSIS 2020-10-22 10:10:00 Chaka Steinberg [facility] TROPONIN I 2020-10-22 09:34:00 Chaka Steinberg [facility] CT ABDOMEN PELVIS W 2020-10-22 08:02:55 Chaka Steinberg [facility] CONTRAST Medical Branch XR CHEST 1 VW 2020-10-22 07:40:59 Chaka Steinberg [facility] COVID-19 (ID NOW RAPID 2020-10-22 07:38:00 Chaka Steinberg [facility] TESTING) Medical Branch LIPASE 2020-10-22 07:37:00 Chaka Steinberg [facility] TROPONIN I 2020-10-22 07:37:00 Cece Steinbergian Robin [facility] HEPATIC FUNCTION PANEL 2020-10-22 07:37:00 Chaka Steinberg [facility] ([id number]) (ALB,T.PRO,BILI Medical Branch T,BU/BC,ALT,AST,ALK PHOS) BASIC METABOLIC PANEL 2020-10-22 07:37:00 Chaka Steinberg [facility] (NA, K, CL, CO2, Medical Branch GLUCOSE, BUN, CREATININE, CA) ETHANOL 2020-10-22 07:37:00 Chaka Steinberg [facility] CBC WITH DIFF 2020-10-22 07:37:00 Cece Steinbergian Robin [facility] CREATINE KINASE 2020-10-15 14:58:00 Sergei [facility] LIPASE 2020-10-15 14:58:00 Sergei [facility] TEST, SERUM 2020-10-15 14:58:00 [facility] TROPONIN I 2020-10-15 14:58:00 Sergei [facility] HEPATIC FUNCTION PANEL 2020-10-15 14:58:00 Sergei, [facility] ([id number]) (ALB,T.PRO,BILI Medical Branch T,BU/BC,ALT,AST,ALK PHOS) BASIC METABOLIC PANEL 2020-10-15 14:58:00 Sergei [facility] (NA, K, CL, CO2, Medical Branch GLUCOSE, BUN, CREATININE, CA) N-TERMINAL PRO-BNP 2020-10-15 14:58:00 Sergei [facility] XR CHEST 2 VW 2020-10-15 13:47:20 Sergei [facility] CT HEAD WO CONTRAST 2020-10-15 13:37:33 Sergei [facility] CREATINE KINASE 2020-10-15 13:27:00 Sergei [facility] LIPASE 2020-10-15 13:27:00 Sergei [facility] TROPONIN I 2020-10-15 13:27:00 Sergei [facility] N-TERMINAL PRO-BNP 2020-10-15 13:27:00 Sergei [facility] POCT TEST 2020-10-13 11:13:00 Gage Torres [facility] COMP. METABOLIC PANEL 2020-10-13 11:06:00 Gage Torres [facility] ([id number]) [facility] EXTRA TUBE ORANGE 2020-10-13 11:06:00 Gage Torres [facility] EXTRA TUBE LT. GREEN 2020-10-13 11:06:00 Gage Torres [facility] URINE DRUG (IMMUNOASSAY) 2020-10-13 11:01:00 Gage Torres [facility] SCREEN URINALYSIS 2020-10-13 11:01:00 Gage Torres [facility] CBC WITH DIFF 2020-10-13 10:41:00 Gage Torres [facility] XR CHEST 1 VW 2020-10-13 10:40:00 Gage Torres [facility] PROTHROMBIN TIME / INR 2020-10-13 10:26:00 Gage Torres [facility] D-DIMER 2020-10-13 10:26:00 Gage Torres [facility] ACTIVATED PARTIAL 2020-10-13 10:26:00 Gage Torres [facility] THRMPLAS CHER [facility] TROPONIN I 2020-10-13 10:09:00 Gage Torres [facility] THYROID STIMULATING 2020-10-13 10:09:00 Gage Torres [facility] HORMONE [facility] ETHANOL 2020-10-13 10:09:00 Gage Torres [facility] EXTRA TUBE ORANGE 2020-10-13 10:09:00 Gage Torres [facility] EXTRA TUBE LT. GREEN 2020-10-13 10:09:00 Gage Torres [facility] LIPASE 2020-10-13 10:09:00 Gage Torres [facility] COVID-19 (ID NOW RAPID 2020-10-13 10:06:00 Gage Torres [facility] TESTING) Medical Branch LIPASE 2020-09-17 03:02:00 William [facility] TEST, SERUM 2020-09-17 03:02:00 [facility] 2020-09-17 03:02:00 [facility] ([id number]) (ALB,T.PRO,BILI [facility] T,BU/BC,ALT,AST,ALK PHOS) BASIC METABOLIC PANEL 2020-09-17 03:02:00 William, [facility] (NA, K, CL, CO2, Medical Branch GLUCOSE, BUN, CREATININE, CA) CBC WITH DIFF 2020-09-17 03:02[facility] [facility] PELVIS W 2020-09-06 11:31:59 Arnold Coughlin [facility] CONTRAST [facility] XR CHEST 1 VW 2020-09-06 10:03:21 Arnold Coughlin [facility] CBC WITH DIFF 2020-09-06 09:58:00 Arnold Coughlin [facility] LIPASE 2020-09-06 09:57:00 Arnold Coughlin [facility] TROPONIN I 2020-09-06 09:57:00 Arnold Coughlin [facility] COMP. METABOLIC PANEL 2020-09-06 09:57:00 Arnold Coughlin [facility] ([id number]) Medical Branch N-TERMINAL PRO-BNP 2020-09-06 09:57:00 Arnold Coughlin [facility] D-DIMER 2020-09-02 02:24:00 Ana Sommers [facility] COVID-19 (ID NOW RAPID 2020-09-02 00:10:00 Ana Sommers [facility] TESTING) Medical Branch LIPASE 2020-09-02 00:07:00 Ana Sommers [facility] TROPONIN I 2020-09-02 00:07:00 Ana Sommers [facility] THYROID STIMULATING 2020-09-02 00:07:00 Ana Sommers [facility] HORMONE [facility] HEPATIC FUNCTION PANEL 2020-09-02 00:07:00 Ana Sommers [facility] ([id number]) (ALB,T.PRO,BILI [facility] T,BU/BC,ALT,AST,ALK PHOS) BASIC METABOLIC PANEL 2020-09-02 00:07:00 Ana Sommers [facility] (NA, K, CL, CO2, Medical Branch GLUCOSE, BUN, CREATININE, CA) CBC WITH DIFF 2020-09-02 00:07:00 Ana Sommers [facility] N-TERMINAL PRO-BNP 2020-09-02 00:07:00 Ana Sommers [facility] XR CHEST 1 VW 2020-09-02 00:02:14 Ana Sommers [facility] NOTICE OF PRIVACY 2020-09-01 22:34:26 Doctor Unassigned, No [facility] PRACTICES Name Medical Branch CONSENT/REFUSAL FOR 2020-09-01 22:34:08 Doctor Unassigned, No [facility] DIAGNOSIS AND TREATMENT Name Medical Branch BASIC METABOLIC PANEL 2020-04-12 10:18:00 Buddy Montes [facility] (NA, K, CL, CO2, Medical Branch GLUCOSE, BUN, CREATININE, CA) CBC WITH DIFF 2020-04-12 10:18:00 Buddy Montes [facility] XR FOREARM 2 VW LEFT 2020-04-11 17:54:00 [facility] XR HAND 3+ VW LEFT 2020-04-11 17:54:00 Jennifer [facility] y of [facility] XR WRIST 3+ VW LEFT 2020-04-11 17:54:00 Jennifer [facility] ty [facility] XR ANKLE 3+ VW LEFT 2020-04-11 12:47:35 Clay Garay [facility] XR FOOT 3+ VW LEFT 2020-04-11 12:47:35 Clay Garay [facility] XR TIBIA FIBULA 2 VW 2020-04-11 12:47:35 Clay Garay [facility] CT TRAUMA HEAD WO 2020-04-11 12:41:26 Clay Garay [facility] CONTRAST [facility] CT TRAUMA THORAX W 2020-04-11 12:41:26 Clay Garay [facility] CT TRAUMA CERVICAL SPINE 2020-04-11 12:41:26 [facility] CONTRAST Medical Branch CT TRAUMA THORACIC SPINE 2020-04-11 12:41:26 [facility] CONTRAST Medical [place] CT TRAUMA ABDOMEN PELVIS 2020-04-11 12:41:26 Tanisha [facility] W CONTRAST Medical Branch CT TRAUMA LUMBAR SPINE 2020-04-11 12:41:26 Clay Garay [facility] CONTRAST [facility] HB ABO GROUPING 2020-04-11 12:20:00 Sanjay John [facility] BASIC METABOLIC PANEL 2020-04-11 12:17:00 John Grace [facility] (NA, K, CL, CO2, [facility] GLUCOSE, BUN, CREATININE, CA) CBC WITHOUT DIFF 2020-04-11 12:17:00 Sanjay [facility] PROTHROMBIN TIME / INR 2020-04-11 12:17:00 Sanjay [facility] ACTIVATED PARTIAL 2020-04-11 12:17:00 Sanjay [facility] THRMPLAS CHER [facility] EKG-12 LEAD 2020-04-11 04:23:07 Gage Torres [facility] TROPONIN I 2020-04-11 01:53:00 Vamshi [facility] EKG-12 LEAD 2020-04-11 01:46:16 [facility] - DRUG SCREEN 2020-04-10 05:19:00 Singer [facility] TRIAGE [facility] XR CHEST 1 VW 2020-04-10 04:26:18 Singer [facility] COVID-19 (ID NOW RAPID 2020-04-10 04:15:00 Singer Wiley [facility] TESTING) Medical Branch D-DIMER 2020-04-10 04:14:00 Singer [facility] LIPASE 2020-04-10 04:11:00 Singer [facility] MAGNESIUM 2020-04-10 04:11:00 [facility] TROPONIN I 2020-04-10 04:11:00 Singer [facility] COMP. METABOLIC PANEL 2020-04-10 04:11:00 Wiley Gay [facility] ([id number]) [facility] CBC WITH DIFF 2020-04-10 04:11:00 Singer [facility] N-TERMINAL PRO-BNP 2020-04-10 04:11:00 Singer Wiley [facility] EKG-12 LEAD 2020-04-10 03:55:43 Singer [facility] NOTICE OF PRIVACY 2020-04-10 03:51:52 Doctor Unassigned, No [facility] PRACTICES Name Medical Branch CONSENT/REFUSAL FOR 2020-04-10 03:51:01 Doctor Unassigned, [facility] AND TREATMENT Name Medical Branch COMP. METABOLIC PANEL 2020-02-25 18:39:00 Estrada, [place] [facility] ([id number]) [facility] CBC WITH DIFF 2020-02-25 18:39:00 Georgia Estrada [facility] EKG-12 LEAD 2020-02-25 18:27:17 Estrada Georgia Ortega [facility] CT ABDOMEN PELVIS W 2019-07-13 00:47:46 Diego Shelby B [facility] POCT TEST 2019-07-13 00:29:00 Lucia Diego B Univers [facility] LIPASE 2019-07-12 23:07:00 Diego Shelby B [facility] COMP. METABOLIC PANEL 2019-07-12 23:07:00 Diego Shelby B Unive [facility] ([id number]) [facility] CBC WITH DIFFERENTIAL 2019-07-12 23:07:00 Lucia Diego B Unive [facility] URINALYSIS 2019-07-12 23:07:00 Diego Shelby B [facility] XR CHEST 1 VW 2019-03-06 16:21:04 Andressa Christianson [facility] Encounters Start End Encounter Admission Attending Care Care Encounter Source Date/Time Date/Time Type Type Clinicians Facility Department ID 2021 Outpatient CHRISTUS AVANI [id number] CHRISTU 20:48:43 -[id number] [facility] 2021 Outpatient CHRISTUS CHRISTUS [id number] CHRISTU 20:48:43 -[id number] [facility] 2021-09-21 2021-09-21 Emergency Rena Georgia Ortega [facility] 1.2.840. 114 [id number] Univers 20:28:00 22:36:[address] [facility] 350.1.13.10 [facility] 4.2.7.2.686 [facility] [id number] [facility] 084 Branch 2021-09-21 2021-09-21 Emergency X Villa VAZQUEZ [facility] ERT [id number] Univers 20:28:00 [facility]:36[facility] 2021-03-25 2021-03-25 Emergency [facility] 1.2.261.472 [id number] Univers 03:49:00 11:27:00 Arnold Huynh 350.1.13.[address] [place] [address] [id number] [facility] 084 Branch 2021-03-25 2021-03-25 Emergency X ELIDA [facility] ERT [id number] Univers 03:49:00 03:49:[address] [facility] 2020-12-01 2020-12-01 Letter Melanie Kolb 1.2.840.114 [id number] 00:00:00 00:00:00 (Out) Adaleva Julian 350.1.13.10 [place] [address].7.2.68 [id number] 09 2020-12-01 2020-12-01 Letter Melanie Kolb 1.2.840.114 [id number] Univers 00:00:00 00:00:00 (Out) dAal Julian 350.1.13.10 it y of [facility] 4.2.7.2.[address] [place] [address] [id number] [place] 612120 Branch 2020-11-22 2020-11-23 [facility] 1.2.840.11 [id number] 06:16:00 14:46:00 Encounter SergeiSadiAnkit Julian 350.1.13.10 [place] [address].2.[facility] [id number] [facility] 2020-11-22 2020-11-23 [facility] 1.2.840.11 [id number] Univers 06:16:00 14:46:00 Encounter Sadi MaiCindyCrhis Eliel 350.1.13.10 ity [place] [address] [place] [address] [id number] [place] 612120 Branch 2020-11-22 2020-11-23 Outpatient X MERLE COOPER [facility] [id number] Univers 06:16:00 14:46:00 ADAL ity [facility] 2020-10-22 2020-10-22 Emergency Chaka Steinberg TRAUMA 1.2.840.114 [id number] 02:04:00 07:32:00 W CENTER 350.1.13.10 4.2.7.2.686 [id number] 014 2020-10-22 2020-10-22 Emergency Chaka Steinberg TRAUMA 1.2.840.114 [id number] Univers 02:04:00 07:32:00 W CENTER 350.1.13.10 [place] [id number] [address] 2020-10-22 2020-10-22 Emergency X CHAKA STEINBERG [facility] ERT [id number] Univers 02:04:00 07:32:[address] [facility] 2020-10-19 2020-10-20 Emergency TRAUMA [id number] 23:59:00 00:57:00 CENTER 350.1.13.10 4.2.7.2.686 [id number] 014 2020-10-19 2020-10-20 Emergency TRAUMA 1.2.936.273 [id number] Univers 23:59:00 00:57:00 CENTER 350.1.13.10 [place] [id number] [address] 2020-10-19 2020-10-20 Emergency X UNKNOWN, [facility] ERT [id number] Univers 23:59:00 00:57:[address] [facility] 2020-10-15 2020-10-15 Emergency Sergei, TRAUMA [id number] [id number] 07:37:00 15:30:00 [facility] CENTER 350.1.13.10 4.2.7.2.686 [id number] 014 2020-10-15 2020-10-15 Emergency Sergei, TRAUMA 1.2.364.376 [id number] Univers 07:37:00 15:30:00 [facility] CENTER 350.1.13.10 [place] [id number] [address] 2020-10-15 2020-10-15 Emergency X [facility] ERT [id number] Univers 07:28:00 07:28:00 ity [facility] 2020-10-13 2020-10-13 Emergency Melissa, Gage E TRAUMA 1.2.840 .114 [id number] 04:42:00 11:13:00 Miguelito Salter [facility] 350.1.13.10 Moises Anderson 4.2.7.2.68 [id number] [facility] 2020-10-13 2020-10-13 Emergency Melissa, Gage E TRAUMA 1.2.840 .114 [id number] Univers 04:42:00 11:13:00 Miguelito Salter [facility] 350.1.13.10 ity Moises Anderson 4.2.7.2.686 [place] [id number] [address] 2020-10-13 2020-10-13 Emergency X MELISSA, [facility] ERT [id number] Univers 04:42:00 04:42:00 GAGE canales [facility] 2020-09-16 2020-09-17 Emergency William, [facility] 1.2.806.963 [id number] 21:39:00 00:11:00 Hoang Huynh 350.1.13.10 [place] 4.2.7.2.686 [place] [id number] [facility] 2020-09-16 2020-09-17 Emergency William, [facility] 1.2.089.214 [id number] Univers 21:39:00 00:11:00 Hoang Huynh 350.1.13.10 i ty of [place] 4.2.7.2.[address] [place] [id number] 2020-09-16 2020-09-16 Emergency X WILLIAM, [facility] ERT [id number] Univers 21:39:00 21:39:00 DARRELSEVEN canales [facility] 2020-09-12 2020-09-12 Emergency X , [facility] ERT [id number] Univers 05:03:00 06:28:00 WILEY parker [facility] 2020-09-06 2020-09-06 Emergency [facility] 1.2.491.412 [id number] 04:37:00 07:13:00 Arnold Huynh 350.1.13.10 [place] 4.2.7.2.686 [place] [id number] 08 2020-09-06 2020-09-06 Emergency [facility] 1.2.690.267 [id number] Univers 04:37:00 07:13:00 [facility] María KnowlesSweeny 350.1.13.10 ity of [place] 4.2.7.2.686 [facility] [id number] [facility] 084 Branch 2020-09-06 2020-09-06 Emergency X [facility] ERT [id number] Univers 04:37:00 07:13:00 [facility] ity [facility] 2020-09-01 2020-09-01 Emergency [facility] 1.2.970.552 [id number] Univers 17:06:00 21:39:00 Ana Shepherd Lino 350.1.13.10 ity of [place] 4.2.7.2.6 [facility] [id number] [facility] 084 Branch 2020-09-01 2020-09-01 Emergency [facility] 1.2.873.894 [id number] 17:06:00 21:39:00 Ana Shepherd Lino 350.1.13.10 [place] 4.2.7.2.6 [place] [id number] 08 2020-09-01 2020-09-01 Emergency X [facility] ERT [id number] Univers 16:36:00 16:36:[address] [facility] 2020-09-01 2020-09-01 Orders Doctor GOODWIN 1.2.840.114 [id number] Univers 00:00:00 00:00:00 Only Unassigned, ELIEL 350.1.13.10 ity of [facility] 4.2.7.2.686 [facility] [id number] [facility] 009 Branch 2020-09-01 2020-09-01 Orders Doctor GOODWIN 1.2.840.114 [id number] 00:00:00 00:00:00 Only Unassigned, ELIEL 350.1.13.10 [facility] 4.2.7.2.686 [id number] 009 2020-04-15 2020-04-15 Transition Francisco Price 1.2.840.114 [id number] Univers 00:00:00 00:00:00 of Care Rafaela Cavazosy 350.1.13.10 i ty of [place] [id number] [facility] 403 Branch 2020-04-15 2020-04-15 Transition Francisco Price 1.2.840.114 [id number] 00:00:00 00:00:00 of Care Rafaela Cavazosy 350.1.13.10 [place] 4.2.7.2.686 [id number] 2020-04-11 2020-04-14 [facility] Melanie Breewr 1.2.599.997 [id number] Univers 06:55:00 20:35:00 Encounter Pedrito Julian 350.1.13.10 ity of Hospital 4.2.7.2.686 Vishal as [id number] [facility] 098 Branch 2020-04-11 2020-04-11 Emergency T [facility] STR [id number] Univers 06:55:00 06:55:[address] [facility] 2020-04-10 2020-04-11 Emergency Melissa, TRAUMA [id number] Univers 23:04:00 01:06:00 Gage SANDY 350.1.13.10 [place] [id number] [facility] 014 Branch 2020-04-10 2020-04-10 Emergency X MELISSA, [facility] ERT [id number] Univers 23:04:00 23:04:[address] [facility] 2020-04-10 2020-04-10 Emergency Vamshi, Opal TRAUMA 1.2.840. 114 [id number] Univers 20:37:00 22:02:00 Pedrito Rosado 350.1.13.10 [place] [id number] [facility] 014 Branch 2020-04-10 2020-04-10 Emergency X MIGUEL, [facility] ERT [id number] Univers 20:37:00 20:37:00 PEDRITO canales [facility] 2020-04-09 2020-04-10 Emergency [facility] 1.2.334.027 [id number] Univers 22:56:00 00:49:00 Wiley Huynh 350.1.13.10 i ty of [place] [id number] [address] 2020-04-09 2020-04-09 Emergency X [facility] ERT [id number] Univers 22:49:00 22:49:00 WILEY canales [facility] 2020-02-25 2020-02-25 Emergency [facility] [id number] Univers 13:23:00 14:09:00 Georgia Huynh 350.1.13.10 i ty of [place] [id number] [address] 2020-02-25 2020-02-25 Emergency X [facility] ERT [id number] Univers 13:23:00 13:23:00 GEORGIA canales [facility] 2019-07-12 2019-07-12 Emergency Unknown, Attending TRAUMA 1.2.8 40.114 [id number] Univers 15:04:04 21:14:00 Gladys Marley [facility] 350.1.13. 10 [place] [id number] [facility] 014 Branch 2019-07-12 2019-07-12 Emergency [facility] [id number] Univers 15:04:04 21:14:00 GLADYS canales [facility] 2019-03-06 2019-03-06 Hospital [facility] 1.2.840.114 [id number] Univers 11:16:49 23:59:00 Encounter Andressa Magana Ishmael [facility] 350.1.13.10 ity of [place] [id number] [facility] 807 [place] Results Test Description Test Time Test Comments Results Result Comments Source TROPONIN I 2021-09-22 02:32:27 Test Item Value Reference Range Interpretation Comme nts TROPONIN I (test code = 0.006 ng/mL See_Comment [Au tomated message] The 7959689611) system which [employer] nerated this result tra nsmitted reference range [...] biotin. Lab Interpretation Normal (test code = 87309-2) [facility] [id number] 02:29:25 Test Item Value Reference Range Interpretation Comments NT-proBNP (test code 77 pg/mL See_Comment [Autom ated = 5338456589) message] The system which generated this result transmitted reference range : <=125. The reference range was not used to interpret this result as normal/abnormal . PAULA (test code = PUALA) Biotin has been reported to cause a negative bias, interpret results relative to patient's use of biotin. Lab Interpretation Normal (test code = 90670-0) [facility] WITH [id number] 02:21:26 Test Item Value Reference Range Interpretation Comments WBC (test code = See_Comment [Automated message] The 6690-2) system which [employer] nerated this result tra nsmitted reference range : 4.30 - 11.10 10*3/?L. The reference range was not used to interpr et this result as normal/abnormal . RBC (test code = See_Comment [Automated message] The 789-8) system which [employer] nerated this result tra nsmitted reference range [...] RDW-SD (test code 45.0 fL 39.0-49.9 = 07479-5) RDW-CV (test code 13.6 % 12.0-15.5 = 788-0) PLT (test code = See_Comment [Automated message] The 777-3) system which [employer] nerated this result tra nsmitted reference range : 166 - 358 10*3/?L. Th e reference range was not used to interpr et this result as normal/abnormal . MPV (test code = 10.5 fL 9.5-12.9 47544-1) IPF % (test code 3.1 % 1.3-7.7 Platelet co unt measured = 5401465507) by fluorescenc e method. NRBC/100 WBC See_Comment [Automated mes joe] The (test code = system which [employer] nerated 4702599122) this result tra nsmitted reference range : 0.0 - 10.0 /100 WBCs. The reference range was not used to interpr et this result as normal/abnormal . NRBC x10^3 (test <0.01 See_Comment [Automated message] The code = system which [employer] nerated 6567221669) this result tra nsmitted reference range : 10*3/?L. The re ference range was not u sed to interpret this result as normal/abnormal . GRAN MAT (NEUT) % 75.4 % (test code = 770-8) IMM GRAN % (test 0.50 % code = 7314294751) LYMPH % (test 15.8 % code = 736-9) MONO % (test code 6.8 % = 5905-5) EOS % (test code 0.9 % = 713-8) BASO % (test code 0.6 % = 706-2) GRAN MAT 6.46 10*3/uL 1.88-7.09 x10^3(ANC) (test code = 9462337882) IMM GRAN x10^3 0.04 10*3/uL 0.00-0.06 (test code = 0682321410) LYMPH x10^3 (test 1.35 10*3/uL 1.32-3.29 code = 731-0) MONO x10^3 (test 0.58 10*3/uL 0.33-0.92 code = 742-7) EOS x10^3 (test 0.08 10*3/uL 0.03-0.39 code = 711-2) BASO x10^3 (test 0.05 10*3/uL 0.01-0.07 code = 704-7) [facility]21:06 Test Item Value Reference Range Interpretation Comments MAGNESIUM (test code = 7107066074) 2.0 mg/dL 1.7-2.4 Lab Interpretation (test code = Normal 77832-1) [facility] (14648)2021-09-22 02:20:45 Test Item Value Reference Range Interpretation Comments NA (test code = 136 mmol/L 135-145 7213017075) K (test code = 4.7 mmol/L 3.5-5.0 8736816032) CL (test code = 106 mmol/L 98-108 6768402775) CO2 TOTAL (test code = 17 mmol/L 23-31 L 2523740114) AGAP (test code = 2-16 8738459275) BUN (test code = 10 mg/dL 7-23 0000253638) GLUCOSE (test code = 99 mg/dL 70-110 5991477005) CREATININE (test code = 0.50 mg/dL 0.50-1.04 6372169377) TOTAL BILI (test code = 0.9 mg/dL 0.1-1.3 1777483521) CALCIUM (test code = 8.9 mg/dL 8.6-10.6 7935199971) T PROTEIN (test code = 8.3 g/dL 6.3-8.2 H 8201318822) ALBUMIN (test code = 4.8 g/dL 3.5-5.0 7658629629) ALK PHOS (test code = 66 U/L 34-122 5994219256) ALTv (test code = 22 U/L 5-35 1742-6) AST(SGOT) (test code = 40 U/L 13-40 4014835484) eGFR (test code = mL/min/1.73m2 0549640759) PAULA (test code = PAULA) Association of [...] tests). Lab Interpretation Abnormal (test code = 64597-0) [facility] [id number] 01:43:00 Test Item Value Reference Range Interpretation Comments POCT PREG (test code = 1605) negative On board controls acceptable with present C Line (test code = 3574) POCT PREG LOT # (test code = 3575) [id number] POCT PREG TEST DATE (test 2022-08-23 code = 3576) Lab Interpretation (test code = Normal 11096-4) [facility]TROP[facility]IN [id number] 12:15:08 Test Item Value Reference Interpretation Comments Range TROPONIN I (test 0.009 ng/mL See_Comment [Automated code = 3801124357) message] The system which generated this result [...] biotin. Lab Interpretation Normal (test code = 32592-0) [facility] CenterD-[id number] 10:51:58 Test Item Value Reference Interpretation Comments Range D-DIMER (test code = See_Comment H [Autom ated 5643273136) message] The system which generated this result [...] diagnosis. Lab Interpretation Abnormal (test code = 07427-9) [facility] CenterCBC WITH [id number] 10:39:17 Test Item Value Reference Range Interpretation [...] (test code = 51.8 fL 39.0-49.9 H 19118-1) RDW-CV (test code = 15.7 % 12.0-15.5 H 788-0) PLT (test code = See_Comment [Automated 777-3) message] The sy stem which generated this result transmitted reference range : 166 - 358 10*3/ ?L. The reference r micah was not used to interpret this result as normal/abnormal . MPV (test code = 10.2 fL 9.5-12.9 19622-3) IPF % (test code = 1.9 % 1.3-7.7 Platelet count 2882093008) measured by fluorescence method. NRBC/100 WBC (test See_Comment [Automat ed code = 4943744590) message] The system which generated this result transmitted reference range : 0.0 - 10.0 /100 WBCs. The refer ence range was not u sed to interpret th is result as normal/abnormal . NRBC x10^3 (test code <0.01 See_Comment [Auto mated = 1522078651) message] The s ystem which generated this result transmitted reference range : 10*3/?L. The reference range was not used to interpret this result as normal/abnormal . GRAN MAT (NEUT) % 63.4 % (test code = 770-8) IMM GRAN % (test code 0.20 % = 5195840457) LYMPH % (test code = 24.2 % 736-9) MONO % (test code = 10.4 % 5905-5) EOS % (test code = 0.9 % 713-8) BASO % (test code = 0.9 % 706-2) GRAN MAT x10^3(ANC) 3.34 10*3/uL 1.88-7.09 (test code = 7214899652) IMM GRAN x10^3 (test <0.03 0.00-0.06 code = 1836466481) LYMPH x10^3 (test code 1.28 10*3/uL 1.32-3.29 L = 731-0) MONO x10^3 (test code 0.55 10*3/uL 0.33-0.92 = 742-7) EOS x10^3 (test code = 0.05 10*3/uL 0.03-0.39 711-2) BASO x10^3 (test code 0.05 10*3/uL 0.01-0.07 = 704-7) PLT ESTIMATE (test Normal Normal code = 9317-9) Lab Interpretation Abnormal (test code = 55218-2) [facility]BIJALEwa [id number] 10:26:56 Test Item Value Reference Interpretation Comments Range TROPONIN I (test 0.011 ng/mL See_Comment [Automated code = 9913460077) message] The system which generated this result [...] biotin. Lab Interpretation Normal (test code = 23565-0) [facility]. METABOLIC PANEL (54026)2021-03-25 10:15:34 Test Item Value Reference Range Interpretation Comments NA (test code = 141 mmol/L 135-145 5559477596) K (test code = 3.7 mmol/L 3.5-5.0 8756451950) CL (test code = 108 mmol/L 98-108 0166667406) CO2 TOTAL (test code = 23 mmol/L 23-31 9661063804) AGAP (test code = 2-16 6206541230) BUN (test code = 6 mg/dL 7-23 L 1482880688) GLUCOSE (test code = 108 mg/dL 70-110 6116867979) CREATININE (test code = 0.65 mg/dL 0.50-1.04 5586038930) TOTAL BILI (test code = 0.4 mg/dL 0.1-1.8 9097300189) CALCIUM (test code = 8.7 mg/dL 8.6-10.6 4400711012) T PROTEIN (test code = 7.9 g/dL 6.3-8.2 6406989654) ALBUMIN (test code = 4.3 g/dL 3.5-5.0 2958011819) ALK PHOS (test code = 72 U/L 34-122 3940062960) ALTv (test code = 31 U/L 5-35 1742-6) AST(SGOT) (test code = 45 U/L 13-40 H 8590890509) eGFR (test code = mL/min/1.73m2 3620535520) PAULA (test code = PAULA) Association of [...] tests). Lab Interpretation Abnormal (test code = 01067-7) [facility] CenterLIPASE2021-[facility] 10:15:34 Test Item Value Reference Range Interpretation Comments LIPASE (test code = 5469144821) 54 U/L 0-220 Lab Interpretation (test code = Normal 56450-9) [facility] CenteraPTT (for use with Heparin Drip)2020-11-23 11:10:10 Test Item Value Reference Range Interpretation Comments APTT Patient (test code See_Comment H [Au tomated message] = 3173-2) The system [employer] generated this result transmitted ref erence range: 26 - 36 Seconds. The reference range was not used to int erpret this result as normal/abnormal . Lab Interpretation (test Abnormal code = 35414-0) [facility] CenterBasic Metabolic Panel (NA, K, CL, CO2, GLUCOSE, BUN, CREATININE, CA)2020-11-23 05:36:05 Test Item Value Reference Range Interpretation Comments NA (test code = 133 mmol/L 135-145 L 6309267700) K (test code = 3.6 mmol/L 3.5-5.0 4775579123) CL (test code = 105 mmol/L 98-108 2235814051) CO2 TOTAL (test code = 24 mmol/L 23-31 3497639594) AGAP (test code = 2-16 3489801161) BUN (test code = 11 mg/dL 7-23 8018187132) GLUCOSE (test code = 104 mg/dL 70-110 6803764704) CREATININE (test code = 0.64 mg/dL 0.50-1.04 9236962210) CALCIUM (test code = 8.4 mg/dL 8.6-10.6 L 1998455303) eGFR (test code = mL/min/1.73m2 0646926345) PAULA (test code = PAULA) Association of [...] tests). Lab Interpretation Abnormal (test code = 00172-1) [facility] CenterMagnesium [id number] 05:36:05 Test Item Value Reference Range Interpretation Comments MAGNESIUM (test code = 7117994853) 2.1 mg/dL 1.7-2.4 Lab Interpretation (test code = Normal 42429-6) [facility]eraPTT (for use with Heparin Drip)2020-11-23 05:25:43 Test Item Value Reference Range Interpretation Comments APTT Patient (test code See_Comment H [Au tomated message] = 3173-2) The system Anthillzic h generated this result transmitted ref erence range: 26 - 36 Seconds. The reference range was not used to int erpret this result as normal/abnormal . Lab Interpretation (test Abnormal code = 43680-8) [facility] with Ruezznithrmj4628-93-05 05:11:43 Test Item Value Reference Range Interpretation [...] RDW-SD (test code = 43.7 fL 39.0-49.9 27112-6) RDW-CV (test code = 13.1 % 12.0-15.5 788-0) PLT (test code = See_Comment [Automated 777-3) message] The sy stem which generated this result transmitted reference range : 166 - 358 10*3/ ?L. The reference r micah was not used to interpret this result as normal/abnormal . MPV (test code = 9.2 fL 9.5-12.9 L 69927-5) NRBC/100 WBC (test See_Comment [Automat ed code = 0411697255) message] The system which generated this result transmitted reference range : 0.0 - 10.0 /100 WBCs. The refer ence range was not u sed to interpret th is result as normal/abnormal . NRBC x10^3 (test code <0.01 See_Comment [Auto mated = 4226513728) message] The s ystem which generated this result transmitted reference range : 10*3/?L. The reference range was not used to interpret this result as normal/abnormal . GRAN MAT (NEUT) % 58.2 % (test code = 770-8) IMM GRAN % (test code 0.50 % = 9262210141) LYMPH % (test code = 28.4 % 736-9) MONO % (test code = 8.9 % 5905-5) EOS % (test code = 3.3 % 713-8) BASO % (test code = 0.7 % 706-2) GRAN MAT x10^3(ANC) 3.53 10*3/uL 1.88-7.09 (test code = 1086059078) IMM GRAN x10^3 (test 0.03 10*3/uL 0.00-0.06 code = 3748504923) LYMPH x10^3 (test code 1.72 10*3/uL 1.32-3.29 = 731-0) MONO x10^3 (test code 0.54 10*3/uL 0.33-0.92 = 742-7) EOS x10^3 (test code = 0.20 10*3/uL 0.03-0.39 711-2) BASO x10^3 (test code 0.04 10*3/uL 0.01-0.07 = 704-7) Lab Interpretation Abnormal (test code = 97688-3) [facility] CenterXR CHEST 1 [id number] 00:27:06 No acute cardiopulmonary abnormality. Preliminary Report [...] reviewed this study and agree with theabove report.[facility] CenterTHYROID STIMULATING [id number] 22:15:04 Test Item Value Reference Range Interpretation Comments TSH (test code = See_Comment [Automated message] 3113664308) The system [employer] generated this result transmitted ref erence range: 0.45 - 4 .70 mIU/L. The refe rence range was not u sed to interpret this result as normal/abnor mal. Lab Interpretation (test Normal code = 73830-0) [facility] CenterGLYCOSYLATED HEMOGLOBIN (A1C)2020-11-22 22:14:59 Test Item Value Reference Range Interpretation Comments HGB A1C (test code = 5.1 % 4.0-5.7 4548-4) PAULA (test code = PAULA) Reference RangesNormal: <5.7%Prediabetes: 5.7 - 6.4%Diabetes: > 6.5% Lab Interpretation (test Normal code = 99564-8) [facility] CenterFREE [id number] 22:01:07 Test Item Value Reference Range Interpretation Comments FREE T4 (test code = See_Comment [Autom ated message] 4971361911) The system [employer] generated this result transmitted ref erence range: 0.78 - 2 .20 ng/dL:. The ref erence range was not u sed to interpret this result as normal/abnor mal. Lab Interpretation (test Normal code = 54443-6) [facility] CenterLIPID PANEL (69092)(TOTAL CHOLESTEROL, TRIGLYCERIDES, HDL)2020-11-22 21:44:08 Test Item Value Reference Range Interpretation Comments CHOL (test code = 279 mg/dL 120-200 H 1898527630) HDL (test code = 85 mg/dL >50 1311405523) HDLC RATIO (test code = See_Comment [Au tomated message] 9470002966) The system [employer] generated this result transmit bhaskar reference range : <=4.5. The refe rence range was not u sed to interpret th is result as normal/abnormal . TRIG (test code = 312 mg/dL 30-170 H 0799143832) LDL CHOL (test code = 132 mg/dL See_Comment [Auto mated message] 90236-6) The system [employer] generated this result transmit bhaskar reference range : <=160. The refe rence range was not u sed to interpret th is result as normal/abnormal . VLDL (test code = 62 mg/dL 5-60 H 4430328111) Lab Interpretation (test Abnormal code = 39772-4) [facility] CenterCT ANGIOGRAM [id number] 21:04:53 1. ?No acute aortic syndrome. No [...] this study and agree with theabove report. [facility] CenterTRDEONTE [id number] 20:12:00 Test Item Value Reference Range Interpretation Comments TROPONIN I (test 0.014 ng/mL See_Comment [Automated code = 1527267145) message] The system which generated this result [...] ? Lab Interpretation Normal (test code = 24827-5) [facility] CenterCOVID-19 (ID NOW RAPID TESTING)2020-11-22 19:49:57 Test Item Value Reference Range Interpretation Comments SARS-CoV-2 Rapid ID NOW Not Detected Not Detected (test code = 42593-8) PAULA (test code = PAULA) ID NOW COVID-19 Assay is an isothermal nucleic acid amplification test intended for the qualitative detection of nucleic acid from SARS-CoV-2 viral RNA in nasopharyngeal (CHEMICAL MACHINE TENDER) specimens. It is used under Emergency Use [...] indicated. Lab Interpretation Normal (test code = 21457-1) [facility] CenterPOCT [id number] 19:43:00 Test Item Value Reference Range Interpretation Comments POCT PREG (test code = 1605) negative On board controls acceptable with present C Line (test code = 3574) POCT PREG LOT # (test code = 3575) [id number] POCT PREG TEST DATE (test 05-25-2022 code = 3576) Lab Interpretation (test code = Normal 89747-7) [facility] CenterTROPONIN [id number] 15:52:28 Test Item Value Reference Range Interpretation Comments TROPONIN I (test 0.047 ng/mL See_Comment H [Automated code = 9311122773) message] The system which generated this result [...] ? Lab Interpretation Abnormal (test code = 29586-5) [facility] CenterURINE DRUG (IMMUNOASSAY) - COMPREHENSIVE DRUG [id number] 15:24:44 Test Item Value Reference Range Interpretation Comments AMPHET (test code = Presumptive Positive Negative A 4184379282) ANN U (test code = Negative Negative 7583519539) BENZO U (test code = Negative Negative 5424779093) Cocaine Metabolite (test Negative Negative code = 9403232710) METHADONE (test code = Negative Negative 2656901440) OPIATES (test code = Negative Negative 3768536395) PCP (test code = Negative Negative 4830602571) THC (test code = Negative Negative 8385086703) PAULA (test code = PAULA) Urine Drug [...] testing). Lab Interpretation (test Abnormal code = 97194-5) [facility] CenterCK (CREATINE KINASE) + [id number] 13:16:38 Test Item Value Reference Range Interpretation Comments CK (test code = 751 U/L 33-194 H 6813220046) CK-MB (test code = 6.00 ng/mL See_Comment H [Automat ed 2653709371) message] The system which generated this result transmitted reference range : <=3.50. The reference range was not used to interpret this result as normal/abnormal . CKMB INDEX (test code 0.8 % 0.0-2.5 = 7694612722) PAULA (test code = PAULA) Biotin has been reported to cause a negative bias, interpret results relative to patient's use of biotin. Lab Interpretation Abnormal (test code = 87824-5) [facility] CenterTROPONIN [id number] 13:16:38 Test Item Value Reference Range Interpretation Comments TROPONIN I (test 0.008 ng/mL See_Comment [Automated code = 5993440116) message] The system which generated this result [...] ? Lab Interpretation Normal (test code = 13470-0) [facility] DRUG (IMMUNOASSAY) - COMPREHENSIVE DRUG [id number] 13:13:47 Test Item Value Reference Range Interpretation Comments ANN S (test code = Negative Negative 4124862550) BENZO S (test code = Negative Negative 0609756375) TRICYCLIC (test code = Negative Negative 9013395698) PAULA (test code = PAULA) Serum Drug Screen Cutoff Ranges Barbiturates ? ? - 3 mcg/mLBenzodiazepines ?- 50 ng/mLTCA ?- 300 ng/mL Test developed and characteristics determined by [facility] Laboratory Services. The results are to be used only for medical (i.e., treatment) purposes. Unconfirmed screening results must not be used for non-medical purposes (e.g., employment testing, legal testing). Lab Interpretation Normal (test code = 20744-1) [facility] CenterURINALYSIS2021-05-30 13:13:32 Test Item Value Reference Range Interpretation Comments APPEARANCE (test code = Clear Clear 6044409834) COLOR (test code = Colorless Yellow A 8456685308) PH (test code = 4.8-8.0 2726972945) SP GRAVITY (test code = 1.003-1.030 L 9447330146) GLU U QUAL (test code = Normal Normal 5723280815) BLOOD (test code = 1+ Negative A 5340547870) KETONES (test code = Negative Negative 9966976248) PROTEIN (test code = Negative Negative 2887-8) UROBILIN (test code = Normal Normal 6477229039) BILIRUBIN (test code = Negative Negative 5376072022) NITRITE (test code = Negative Negative 3757780238) LEUK JONATHON (test code = Negative Negative 4526188342) RBC/HPF (test code = See_Comment [Autom ated message] 5419982525) The system [employer] generated this result transmit bhaskar reference range : 0 - 3 HPF. The refe rence range was not u sed to interpret th is result as normal/abnormal . WBC/HPF (test code = <1 See_Comment [Autom ated message] 3990678512) The system [employer] generated this result transmit bhaskar reference range : 0 - 5 HPF. The refe rence range was not u sed to interpret th is result as normal/abnormal . BACTERIA (test code = Negative Negative 1316545213) AMORPHOUS (test code = Rare Rare HPF 1996308858) Lab Interpretation (test Abnormal code = 03889-7) [facility] CenterD-[id number] 13:09:19 Test Item Value Reference Interpretation Comments Range D-DIMER (test code = See_Comment [Autom ated 1884725191) message] The system which generated this result [...] diagnosis. Lab Interpretation Normal (test code = 13509-8) [facility]. METABOLIC PANEL (91265)2020-11-22 13:06:21 Test Item Value Reference Range Interpretation Comments NA (test code = 139 mmol/L 135-145 2860651212) K (test code = 4.1 mmol/L 3.5-5.0 0765795523) CL (test code = 106 mmol/L 98-108 2558009322) CO2 TOTAL (test code = 20 mmol/L 23-31 L 9153591013) AGAP (test code = 2-16 8496065002) BUN (test code = 12 mg/dL 7-23 5989177859) GLUCOSE (test code = 92 mg/dL 70-110 8809859588) CREATININE (test code = 0.58 mg/dL 0.50-1.04 7950042081) TOTAL BILI (test code = 0.2 mg/dL 0.1-1.4 5836649541) CALCIUM (test code = 9.4 mg/dL 8.6-10.6 2884959209) T PROTEIN (test code = 7.6 g/dL 6.3-8.2 7869684234) ALBUMIN (test code = 4.5 g/dL 3.5-5.0 1426298002) ALK PHOS (test code = 70 U/L 34-122 2072371893) ALTv (test code = 14 U/L 5-35 2-6) AST(SGOT) (test code = 29 U/L 13-40 8812417718) eGFR (test code = mL/min/1.73m2 7443040158) PAULA (test code = PAULA) Association of [...] tests). Lab Interpretation Abnormal (test code = 52029-3) [facility] CenterETHANOL2021-05-30 13:06:21 Test Item Value Reference Range Interpretation Comments ALCOHOL (test code = 112 mg/dL 4332258224) PAULA (test code = Toxic Greater than or PAULA) equal to 80 mg/dL. NOTE: Whole blood values are approximately 10% to 15% lower than serum and plasma. [facility] CenterLIPASE2021-05-30 13:06:21 Test Item Value Reference Range Interpretation Comments LIPASE (test code = 8386790796) 118 U/L 0-220 Lab Interpretation (test code = Normal 84200-8) [facility] WITH [id number] 13:00:59 Test Item Value Reference Range Interpretation Comments WBC (test code = See_Comment [Automated message] 6690-2) The system [employer] generated this result transmitted ref erence range: 4.30 - 1 1.10 10*3/?L. The re ference range was not u sed to interpret this result as normal/abnor mal. RBC (test code = See_Comment [Automated message] 789-8) The system [employer] generated this result transmitted ref erence range: [...] RDW-SD (test code 44.0 fL 39.0-49.9 = 64084-1) RDW-CV (test code 13.0 % 12.0-15.5 = 788-0) PLT (test code = See_Comment [Automated message] 777-3) The system whic h generated this result transmitted ref erence range: 166 - 35 8 10*3/?L. The re ference range was not u sed to interpret this result as normal/abnor mal. MPV (test code = 9.9 fL 9.5-12.9 00534-3) NRBC/100 WBC (test See_Comment [Automat ed message] code = 2960079647) The syste m which generated this result transmitted ref erence range: 0.0 - 10 .0 /100 WBCs. The refer ence range was not u sed to interpret this result as normal/abnor mal. NRBC x10^3 (test <0.01 See_Comment [Automated message] code = 9212213742) The syste m which generated this result transmitted ref erence range: 10*3/?L. The reference range was not used to interpr et this result as normal/abnormal . GRAN MAT (NEUT) % 57.8 % (test code = 770-8) IMM GRAN % (test 0.30 % code = 1703933555) LYMPH % (test code 31.0 % = 736-9) MONO % (test code 8.7 % = 5905-5) EOS % (test code = 1.5 % 713-8) BASO % (test code 0.7 % = 706-2) GRAN MAT 3.37 10*3/uL 1.88-7.09 x10^3(ANC) (test code = 8255192082) IMM GRAN x10^3 <0.03 0.00-0.06 (test code = 9402331531) LYMPH x10^3 (test 1.81 10*3/uL 1.32-3.29 code = 731-0) MONO x10^3 (test 0.51 10*3/uL 0.33-0.92 code = 742-7) EOS x10^3 (test 0.09 10*3/uL 0.03-0.39 code = 711-2) BASO x10^3 (test 0.04 10*3/uL 0.01-0.07 code = 704-7) [facility] CenterDRUG PANEL 2 [id number] 11:58:10 Test Item Value Reference Range Interpretation Comments AMPHET (test code = Negative Negative 9837603822) ANN U (test code = Negative Negative 0451852660) BENZO U (test code = Negative Negative 6875887939) Cocaine Metabolite (test Negative Negative code = 5078112331) METHADONE (test code = Negative Negative 0879651384) OPIATES (test code = Negative Negative 5125847521) PCP (test code = Negative Negative 7601895894) THC (test code = Negative Negative 3198058547) PAULA (test code = PAULA) Urine Drug [...] testing). Lab Interpretation (test Normal code = 39289-2) [facility] CenterUrinalysis2021-04-29 10:57:49 Test Item Value Reference Range Interpretation Comments APPEARANCE (test code = Clear Clear 1863041598) COLOR (test code = Colorless Yellow A 4696168744) PH (test code = 4.8-8.0 6476699345) SP GRAVITY (test code = 1.003-1.030 7085829359) GLU U QUAL (test code = Normal Normal 5261204568) BLOOD (test code = 2+ Negative A 5238544832) KETONES (test code = Negative Negative 3674494445) PROTEIN (test code = Negative Negative 2887-8) UROBILIN (test code = Normal Normal 8467652348) BILIRUBIN (test code = Negative Negative 9989096260) NITRITE (test code = Negative Negative 3703744505) LEUK JONATHON (test code = Negative Negative 7012074898) RBC/HPF (test code = See_Comment H [Autom ated message] 9175111529) The system [employer] generated this result transmit bhaskar reference range : 0 - 3 HPF. The refe rence range was not u sed to interpret th is result as normal/abnormal . WBC/HPF (test code = <1 See_Comment [Autom ated message] 6729654068) The system [employer] generated this result transmit bhaskar reference range : 0 - 5 HPF. The refe rence range was not u sed to interpret th is result as normal/abnormal . BACTERIA (test code = Negative Negative 4414662205) SQ EPITH (test code = <1 See_Comment [Auto mated message] 5413791306) The system [employer] generated this result transmit bhaskar reference range : <=2 HPF. The refere nce range was not u sed to interpret th is result as normal/abnormal . ASCORBIC ACID (test code Negative = 5421716465) Lab Interpretation (test Abnormal code = 85659-8) [facility] CenterJER [id number] 10:29:23 Test Item Value Reference Range Interpretation Comments TROPONIN I (test 0.005 ng/mL See_Comment [Automated code = 4133534920) message] The system which generated this result [...] ? Lab Interpretation Normal (test code = 87207-0) [facility] CenterPOCT [id number] 10:12:00 Test Item Value Reference Range Interpretation Comments POCT PREG (test code = 1605) negative On board controls acceptable with C present Line (test code = 3574) POCT PREG LOT # (test code = 3575) HCG Lab Interpretation (test code = Normal 94246-0) [facility] CenterTroponin [id number] 08:15:07 Test Item Value Reference Range Interpretation Comments TROPONIN I (test 0.007 ng/mL See_Comment [Automated code = 6371338129) message] The system which generated this result [...] ? Lab Interpretation Normal (test code = 46691-9) [facility] CenterCOVID-19 (ID NOW RAPID TESTING)2020-10-22 08:08:44 Test Item Value Reference Range Interpretation Comments SARS-CoV-2 Rapid ID NOW Not Detected Not Detected (test code = 87843-8) PAULA (test code = PAULA) ID NOW COVID-19 Assay is an isothermal nucleic acid amplification test intended for the qualitative detection of nucleic acid from SARS-CoV-2 viral RNA in nasopharyngeal (CHEMICAL MACHINE TENDER) specimens. It is used under Emergency Use [...] indicated. Lab Interpretation Normal (test code = 54953-5) [facility] (NA, K, CL, CO2, GLUCOSE, BUN, CREATININE, CA)2020-10-22 08:00:24 Test Item Value Reference Range Interpretation Comments NA (test code = 136 mmol/L 135-145 5537929713) K (test code = 5.1 mmol/L 3.5-5.0 H Slight 9712325442) hemolysis CL (test code = 107 mmol/L 98-108 2883772380) CO2 TOTAL (test code 22 mmol/L 23-31 L = 9187857478) AGAP (test code = 2-16 1136912499) BUN (test code = 10 mg/dL 7-23 Slight 8303732544) hemolysis GLUCOSE (test code = 107 mg/dL 70-110 1793123888) CREATININE (test code 0.56 mg/dL 0.50-1.04 = 6079350609) CALCIUM (test code = 8.6 mg/dL 8.6-10.6 3028210213) eGFR (test code = mL/min/1.73m2 0794145885) PAULA (test code = PAULA) Association of [...] tests). Lab Interpretation Abnormal (test code = 78138-8) [facility] CenterHepatic Function Panel (ALB, T.PRO, BILI T, BU/BC, ALT, AST, ALK PHOS)2020-10-22 08:00:24 Test Item Value Reference Range Interpretation Comments TOTAL BILI (test code = 5961613457) 0.3 mg/dL 0.1-1.1 BILI UNCON (test code = 5087269182) 0.1 mg/dL 0.1-1.1 BILI CONJ (test code = 0081026643) 0.0 mg/dL 0.0-0.3 T PROTEIN (test code = 1057178716) 7.0 g/dL 6.3-8.2 ALBUMIN (test code = 5282901560) 3.9 g/dL 3.5-5.0 ALK PHOS (test code = 5389734321) 112 U/L 34-122 ALTv (test code = 1742-6) 292 U/L 5-35 H AST(SGOT) (test code = 5416665345) 322 U/L 13-40 H Lab Interpretation (test code = Abnormal 63078-0) [facility] CenterEthanol [id number] 08:00:24 Test Item Value Reference Range Interpretation Comments ALCOHOL (test code = 67 mg/dL 2856947511) PAULA (test code = Toxic Greater than or PAULA) equal to 80 mg/dL. NOTE: Whole blood values are approximately 10% to 15% lower than serum and plasma. [facility] CenterLipase [id number] 08:00:24 Test Item Value Reference Range Interpretation Comments LIPASE (test code = 2177787384) 165 U/L 0-220 Lab Interpretation (test code = Normal 93322-6) [facility] CenterCBC with [id number] 07:55:00 Test Item Value Reference Range Interpretation Comments WBC (test code = See_Comment [Automated 2190-2) message] The sy stem which generated this result transmitted reference range : 4.30 - 11.10 10*3/?L. The reference range was not used to interpret this result as normal/abnormal . RBC (test code = See_Comment [Automated 399-8) message] The sy stem which generated this [...] RDW-SD (test code = 43.8 fL 39.0-49.9 77308-5) RDW-CV (test code = 13.2 % 12.0-15.5 788-0) PLT (test code = See_Comment [Automated 777-3) message] The sy stem which generated this result transmitted reference range : 166 - 358 10*3/ ?L. The reference r micah was not used to interpret this result as normal/abnormal . MPV (test code = 9.2 fL 9.5-12.9 L 80278-9) NRBC/100 WBC (test See_Comment [Automat ed code = 6912293351) message] The system which generated this result transmitted reference range : 0.0 - 10.0 /100 WBCs. The refer ence range was not u sed to interpret th is result as normal/abnormal . NRBC x10^3 (test code <0.01 See_Comment [Auto mated = 1638268095) message] The s ystem which generated this result transmitted reference range : 10*3/?L. The reference range was not used to interpret this result as normal/abnormal . GRAN MAT (NEUT) % 64.0 % (test code = 770-8) IMM GRAN % (test code 0.40 % = 9857814593) LYMPH % (test code = 24.3 % 736-9) MONO % (test code = 8.9 % 5905-5) EOS % (test code = 1.4 % 713-8) BASO % (test code = 1.0 % 706-2) GRAN MAT x10^3(ANC) 3.18 10*3/uL 1.88-7.09 (test code = 7289979695) IMM GRAN x10^3 (test <0.03 0.00-0.06 code = 5817188966) LYMPH x10^3 (test code 1.21 10*3/uL 1.32-3.29 L = 731-0) MONO x10^3 (test code 0.44 10*3/uL 0.33-0.92 = 742-7) EOS x10^3 (test code = 0.07 10*3/uL 0.03-0.39 711-2) BASO x10^3 (test code 0.05 10*3/uL 0.01-0.07 = 704-7) Lab Interpretation Abnormal (test code = 39533-3) [facility] 2 [id number] 18:12:05 No acute cardiopulmonary abnormality. Preliminary Report [...] reviewed this study and agree with theabove report.[facility] CenterCREATINE [id number] 17:21:00 Test Item Value Reference Range Interpretation Comments CK (test code = 9647500966) 765 U/L 33-194 H Lab Interpretation (test code = Abnormal 29080-7) [facility] CenterLipase [id number] 17:20:59 Test Item Value Reference Range Interpretation Comments LIPASE (test code = 8624695888) 135 U/L 0-220 Lab Interpretation (test code = Normal 46602-5) [facility] CenterTroponin [id number] 16:25:05 Test Item Value Reference Range Interpretation Comments TROPONIN I (test 0.007 ng/mL See_Comment [Automated code = 3041865417) message] The system which generated this result [...] ? Lab Interpretation Normal (test code = 55240-3) [facility] CenterN-TERMINAL WHI-[id number] 16:25:04 Test Item Value Reference Range Interpretation Comments NT-proBNP (test code 178 pg/mL See_Comment H [Autom ated = 9280042315) message] The system which generated this result transmitted reference range : <=125. The reference range was not used to interpret this result as normal/abnormal . PAULA (test code = PAULA) Biotin has been reported to cause a negative bias, interpret results relative to patient's use of biotin. Lab Interpretation Abnormal (test code = 79557-9) [facility] CenterBasi Metabolic Panel (NA, K, CL, CO2, GLUCOSE, BUN, CREATININE, CA)2020-10-15 16:13:24 Test Item Value Reference Range Interpretation Comments NA (test code = 135 mmol/L 135-145 3836891366) K (test code = 4.0 mmol/L 3.5-5.0 Slight 3607766620) hemolysis CL (test code = 109 mmol/L 98-108 H 8731389451) CO2 TOTAL (test code 21 mmol/L 23-31 L = 4896946365) AGAP (test code = 2-16 1047053078) BUN (test code = 11 mg/dL 7-23 Slight 7147872276) hemolysis GLUCOSE (test code = 98 mg/dL 70-110 4447568980) CREATININE (test code 0.54 mg/dL 0.50-1.04 = 0394307087) CALCIUM (test code = 8.1 mg/dL 8.6-10.6 L 7013971689) eGFR (test code = mL/min/1.73m2 2099999893) PAULA (test code = PAULA) Association of [...] tests). Lab Interpretation Abnormal (test code = 42306-3) [facility] CenterHepatic Function Panel (ALB, T.PRO, BILI T, BU/BC, ALT, AST, ALK PHOS)2020-10-15 16:13:24 Test Item Value Reference Range Interpretation Comments TOTAL BILI (test code = 8788856133) 0.3 mg/dL 0.1-1.1 BILI UNCON (test code = 8409710985) 0.1 mg/dL 0.1-1.1 BILI CONJ (test code = 3574147612) 0.0 mg/dL 0.0-0.3 T PROTEIN (test code = 0038198074) 6.0 g/dL 6.3-8.2 L ALBUMIN (test code = 8417164733) 3.2 g/dL 3.5-5.0 L ALK PHOS (test code = 6625332428) 59 U/L 34-122 ALTv (test code = 1742-6) 74 U/L 5-35 H AST(SGOT) (test code = 8152099852) 100 U/L 13-40 H Lab Interpretation (test code = Abnormal 56860-4) [facility] CenterPregnancy Test, [id number] 16:12:38 Test Item Value Reference Range Interpretation Comments PREG SERUM (test code Negative = 9446971488) PAULA (test code = PAULA) Less than 10 IU/L. ?If low titer or ectopic is suspected, resubmit specimen in 48-72 hours. [facility] CenterTroponin [id number] 14:29:39TROPONIN IComment: Possible Contaminated specimen. ?Talked to Dr Mai to reorder Troponin and BNP. This is a corrected result. ?Previous result was 0.007 ng/mL on 10/15/2020 at 0903 [facility] LABORATORY SERVICESEqual or Less than 0.034 [...] results relative to patient's use of biotin. ?[facility] CenterN- TERMINAL NEW-[id number] 14:28:48NT-proBNPComment: Possible Contaminated specimen. ?Talked to Dr Mai to reorder Troponin and BNP. This is a corrected result. ?Previous result was 41 pg/mL on 10/15/2020 at 0904 [facility] LABORATORY SERVICESBiotin has been reported to cause a negative bias, interpret results relative to patient's use of biotin.[facility] CenterLipase [id number] 14:09:09LIPASEComment: Possible contamination of specimen. Dr Mai to reorder for recollection. This is a corrected result. ?Previous result was 16 U/L on 10/15/2020 at 0852 [facility]ORAT[facility] SERVICESUnNexus Children[facility] Hospital HoustonCREATINE [id number] 14:08:28CKComment: Possible contamination of specimen. Dr Mai to reorder for recollection. This is a corrected result. ?Previous result was 230 U/L on 10/15/2020 at 0852 [facility]ORATORY SERVICESUnNexus Children[facility] Hospital HoustonCT HEAD WO CONTRAST 2020-10-15 13:47:51 No acute [...] clear. IMPRESSIONNo acute intracranial hemorrhage or mass effect.[facility] CenterXR CHEST 1 [id number] 14:06:46 No acute cardiopulmonary process. Preliminary Report [...] reviewed this study and agree with theabove report.[facility] CenterCOMP. METABOLIC PANEL (87485)2020-10-13 11:48:17 Test Item Value Reference Range Interpretation Comments NA (test code = 137 mmol/L 135-145 9985088537) K (test code = 4.2 mmol/L 3.5-5.0 Slight 9527745283) hemolysis CL (test code = 110 mmol/L 98-108 H 8728637345) CO2 TOTAL (test code 18 mmol/L 23-31 L = 1634283089) AGAP (test code = 2-16 5898294526) BUN (test code = 13 mg/dL 7-23 Slight 5392668612) hemolysis GLUCOSE (test code = 104 mg/dL 70-110 1415598893) CREATININE (test code 0.63 mg/dL 0.50-1.04 = 2088618623) TOTAL BILI (test code 0.5 mg/dL 0.1-1.1 = 4512539281) CALCIUM (test code = 8.1 mg/dL 8.6-10.6 L 9299880340) T PROTEIN (test code 7.0 g/dL 6.3-8.2 = 5614581880) ALBUMIN (test code = 3.8 g/dL 3.5-5.0 4125882421) ALK PHOS (test code = 55 U/L 34-122 Slight 2539495283) hemolysis ALTv (test code = 49 U/L 5-35 H 1742-6) AST(SGOT) (test code 72 U/L 13-40 H Slight = 7841421681) hemolysis eGFR (test code = mL/min/1.73m2 4106448143) PAULA (test code = PAULA) Association of [...] tests). Lab Interpretation Abnormal (test code = 55541-6) [facility] CenterDrug Screen [id number] 11:42:55 Test Item Value Reference Range Interpretation Comments AMPHET (test code = Presumptive Positive Negative A 9119487432) Cocaine Metabolite (test Negative Negative code = 7633324194) OPIATES (test code = Presumptive Positive Negative A 1774145207) THC (test code = Negative Negative 8043862636) PAULA (test code = PAULA) Urine Drug Cutoff Ranges Amphetamine: ? 1,000 ng/mLCocaine: ? 150 ng/mLOpiates: ? 300 ng/mLCannabinoids: ?50 ng/mL The results are to be used only for medical (i.e., treatment) purposes. Unconfirmed screening results must not be used for non-medical purposes (e.g., employment testing, legal testing). Lab Interpretation (test Abnormal code = 58536-8) [facility] CenterDRUG SCREEN PANEL 2 [id number] 11:42:35 Test Item Value Reference Range Interpretation Comments AMPHET (test code = Presumptive Positive Negative A 0028367057) ANN U (test code = Negative Negative 3452769387) BENZO U (test code = Negative Negative 5922885247) Cocaine Metabolite (test Negative Negative code = 4360475186) METHADONE (test code = Negative Negative 5956027695) OPIATES (test code = Presumptive Positive Negative A 6284645003) PCP (test code = Negative Negative 8332715649) THC (test code = Negative Negative 5877121187) PAULA (test code = PAULA) Urine Drug [...] testing). Lab Interpretation (test Abnormal code = 13868-2) [facility] CenterD-QDNJP2894-22-43 11:32:36 Test Item Value Reference Interpretation Comments Range D-DIMER (test code = See_Comment [Autom ated 8324073098) message] The system which generated this result [...] diagnosis. Lab Interpretation Normal (test code = 71491-1) [facility] CenterURINALYSIS2021-04-20 11:29:49 Test Item Value Reference Range Interpretation Comments APPEARANCE (test code = Clear Clear 7399780877) COLOR (test code = Straw Yellow A 6629362077) PH (test code = 4.8-8.0 9204162169) SP GRAVITY (test code = 1.003-1.030 3265728844) GLU U QUAL (test code = Normal Normal 6029664754) BLOOD (test code = Negative Negative 1272687814) KETONES (test code = Negative Negative 2529072477) PROTEIN (test code = Negative Negative 2887-8) UROBILIN (test code = Normal Normal 9279014700) BILIRUBIN (test code = Negative Negative 9428635757) NITRITE (test code = Negative Negative 6842248852) LEUK JONATHON (test code = Negative Negative 7229704960) RBC/HPF (test code = <1 See_Comment [Autom ated message] 4469818935) The system [employer] generated this result transmitted ref erence range: 0 - 3 HP F. The reference range was not used to int erpret this result as normal/abnormal . WBC/HPF (test code = <1 See_Comment [Autom ated message] 8435232959) The system [employer] generated this result transmitted ref erence range: 0 - 5 HP F. The reference range was not used to int erpret this result as normal/abnormal . BACTERIA (test code = Few Negative A 1916546307) SQ EPITH (test code = See_Comment [Auto mated message] 6744531819) The system [employer] generated this result transmitted ref erence range: <=2 HPF. The reference range was not used to int erpret this result as normal/abnormal . Lab Interpretation (test Abnormal code = 70323-5) [facility] CenterPOCT [id number] 11:13:00 Test Item Value Reference Range Interpretation Comments POCT PREG (test code = 1605) negative On board controls acceptable with present C Line (test code = 3574) POCT PREG LOT # (test code = 3575) [id number] POCT PREG TEST DATE (test 2022-05-25 code = 3576) Lab Interpretation (test code = Normal 16703-7) [facility] CenterTHYROID STIMULATING [id number] 11:12:54 Test Item Value Reference Range Interpretation Comments TSH (test code = See_Comment H [Automated message] 6680928554) The system [employer] generated this result transmitted ref erence range: 0.45 - 4 .70 mIU/L. The refe rence range was not u sed to interpret this result as normal/abnor mal. Lab Interpretation (test Abnormal code = 72429-3) [facility] CenterTroponin [id number] 10:54:13 Test Item Value Reference Range Interpretation Comments TROPONIN I (test 0.013 ng/mL See_Comment [Automated code = 4101177922) message] The system which generated this result [...] ? Lab Interpretation Normal (test code = 53441-5) [facility] CenterEthanol [id number] 10:53:52 Test Item Value Reference Range Interpretation Comments ALCOHOL (test code = <10 mg/dL 3007906547) PAULA (test code = Toxic Greater than or PAULA) equal to 80 mg/dL. NOTE: Whole blood values are approximately 10% to 15% lower than serum and plasma. [facility] with Tnhlabdocaue4104-21-12 10:49:12 Test Item Value Reference Range Interpretation Comments WBC (test code = See_Comment [Automated message] 5390-2) The system [employer] generated this result transmitted ref erence range: 4.30 - 1 1.10 10*3/?L. The re ference range was not u sed to interpret this result as normal/abnor mal. RBC (test code = See_Comment [Automated message] 899-8) The system [employer] generated this result transmitted ref erence range: [...] RDW-SD (test code 43.8 fL 39.0-49.9 = 73779-6) RDW-CV (test code 12.9 % 12.0-15.5 = 788-0) PLT (test code = See_Comment [Automated message] 777-3) The system whic h generated this result transmitted ref erence range: 166 - 35 8 10*3/?L. The re ference range was not u sed to interpret this result as normal/abnor mal. MPV (test code = 9.5 fL 9.5-12.9 95681-1) NRBC/100 WBC (test See_Comment [Automat ed message] code = 9364066171) The syste m which generated this result transmitted ref erence range: 0.0 - 10 .0 /100 WBCs. The refer ence range was not u sed to interpret this result as normal/abnor mal. NRBC x10^3 (test <0.01 See_Comment [Automated message] code = 6795419457) The syste m which generated this result transmitted ref erence range: 10*3/?L. The reference range was not used to interpr et this result as normal/abnormal . GRAN MAT (NEUT) % 66.8 % (test code = 770-8) IMM GRAN % (test 0.30 % code = 1670097292) LYMPH % (test code 21.6 % = 736-9) MONO % (test code 9.2 % = 5905-5) EOS % (test code = 1.4 % 713-8) BASO % (test code 0.7 % = 706-2) GRAN MAT 4.73 10*3/uL 1.88-7.09 x10^3(ANC) (test code = 0616937810) IMM GRAN x10^3 <0.03 0.00-0.06 (test code = 5215005642) LYMPH x10^3 (test 1.53 10*3/uL 1.32-3.29 code = 731-0) MONO x10^3 (test 0.65 10*3/uL 0.33-0.92 code = 742-7) EOS x10^3 (test 0.10 10*3/uL 0.03-0.39 code = 711-2) BASO x10^3 (test 0.05 10*3/uL 0.01-0.07 code = 704-7) [facility] CenterLipase Lalwf9709-04-46 10:44:47 Test Item Value Reference Range Interpretation Comments LIPASE (test code = 5801389113) 172 U/L 0-220 Lab Interpretation (test code = Normal 57568-1) [facility] CenterProthrombin Time (PT) / [id number] 10:43:11 Test Item Value Reference Range Interpretation Comments PROTIME PATIENT (test See_Comment [Auto mated message] code = 5964-2) The system [employer] generated this result transmitted ref erence range: 10.1 - 1 2.6 Seconds. The re ference range was not u sed to interpret this result as normal/abnor mal. INR (test code = 6301-6) Nor mal INR <1.1; Warfarin Therap eutic range 2.0 to 3. 0 or 2.5 to 3.5, dep ending upon the indica tions. Lab Interpretation (test Normal code = 73977-7) [facility] CenteraPTT2021-04-20 10:43:11 Test Item Value Reference Range Interpretation Comments APTT Patient (test code See_Comment L [Au tomated message] = 3173-2) The system [employer] h generated this result transmitted ref erence range: 26 - 36 Seconds. The reference range was not used to int erpret this result as normal/abnormal . Lab Interpretation (test Abnormal code = 56985-8) [facility] CenterCOVID-19 (ID NOW RAPID TESTING)2020-10-13 10:28:07 Test Item Value Reference Range Interpretation Comments SARS-CoV-2 Rapid ID NOW Not Detected Not Detected (test code = 99262-4) PAULA (test code = PAULA) ID NOW COVID-19 Assay is an isothermal nucleic acid amplification test intended for the qualitative detection of nucleic acid from SARS-CoV-2 viral RNA in nasopharyngeal (CHEMICAL MACHINE TENDER) specimens. It is used under Emergency Use [...] indicated. Lab Interpretation Normal (test code = 93069-4) [facility] CenterPREGNANCY TEST, [id number] 03:54:33 Test Item Value Reference Range Interpretation Comments PREG SERUM (test code Negative = 3788584787) PAULA (test code = PAULA) Less than 10 IU/L. ?If low titer or ectopic is suspected, resubmit specimen in 48-72 hours. [facility] Metabolic Panel (NA, K, CL, CO2, GLUCOSE, BUN, CREATININE, CA)2020-09-17 03:26:58 Test Item Value Reference Range Interpretation Comments NA (test code = 135 mmol/L 135-145 7084219440) K (test code = 3.8 mmol/L 3.5-5.0 2220535950) CL (test code = 99 mmol/L 98-108 1849762021) CO2 TOTAL (test code = 24 mmol/L 23-31 4074923781) AGAP (test code = 2-16 9977700370) BUN (test code = 9 mg/dL 7-23 5600047495) GLUCOSE (test code = 100 mg/dL 70-110 3058048525) CREATININE (test code 0.74 mg/dL 0.50-1.04 = 3656878361) CALCIUM (test code = 9.1 mg/dL 8.6-10.6 3547236200) eGFR Calculation mL/min/1.73m2 (Non-) (test code = 2540366534) eGFR Calculation mL/min/1.73m2 () (test code = 8269882373) PAULA (test code = PAULA) Association of [...] or urine or abnormalities in imaging tests). [facility] CenterHepatic Function Panel (ALB, T.PRO, BILI T, BU/BC, ALT, AST, ALK PHOS)2020-09-17 03:26:58 Test Item Value Reference Range Interpretation Comments TOTAL BILI (test code = 7131573817) 0.4 mg/dL 0.1-1.1 BILI UNCON (test code = 2335700238) 0.2 mg/dL 0.1-1.1 BILI CONJ (test code = 4899984915) 0.0 mg/dL 0.0-0.3 T PROTEIN (test code = 0549038452) 8.6 g/dL 6.3-8.2 H ALBUMIN (test code = 6603409795) 5.1 g/dL 3.5-5.0 H ALK PHOS (test code = 1017654622) 114 U/L 34-122 ALTv (test code = 1742-6) 28 U/L 5-35 AST(SGOT) (test code = 7651705770) 47 U/L 13-40 H Lab Interpretation (test code = Abnormal 63805-0) [facility] CenterLipase Jafan0680-57-57 03:26:58 Test Item Value Reference Range Interpretation Comments LIPASE (test code = 2499939493) 81 U/L 0-220 Lab Interpretation (test code = Normal 01725-8) [facility] with Qqahnjmpviqg2606-30-68 03:13:16 Test Item Value Reference Range Interpretation [...] RDW-SD (test code = 42.8 fL 39.0-49.9 66888-9) RDW-CV (test code = 12.8 % 12.0-15.5 788-0) PLT (test code = See_Comment [Automated 777-3) message] The sy stem which generated this result transmitted reference range : 166 - 358 10*3/ ?L. The reference r micah was not used to interpret this result as normal/abnormal . MPV (test code = 8.9 fL 9.5-12.9 L 08780-8) NRBC/100 WBC (test See_Comment [Automat ed code = 0094218558) message] The system which generated this result transmitted reference range : 0.0 - 10.0 /100 WBCs. The refer ence range was not u sed to interpret th is result as normal/abnormal . NRBC x10^3 (test code <0.01 See_Comment [Auto mated = 5418554794) message] The s ystem which generated this result transmitted reference range : 10*3/?L. The reference range was not used to interpret this result as normal/abnormal . GRAN MAT (NEUT) % 44.7 % (test code = 770-8) IMM GRAN % (test code 0.50 % = 3050906057) LYMPH % (test code = 44.6 % 736-9) MONO % (test code = 8.2 % 5905-5) EOS % (test code = 0.9 % 713-8) BASO % (test code = 1.1 % 706-2) GRAN MAT x10^3(ANC) 2.84 10*3/uL 1.88-7.09 (test code = 1619514159) IMM GRAN x10^3 (test 0.03 10*3/uL 0.00-0.06 code = 6648324666) LYMPH x10^3 (test code 2.83 10*3/uL 1.32-3.29 = 731-0) MONO x10^3 (test code 0.52 10*3/uL 0.33-0.92 = 742-7) EOS x10^3 (test code = 0.06 10*3/uL 0.03-0.39 711-2) BASO x10^3 (test code 0.07 10*3/uL 0.01-0.07 = 704-7) Lab Interpretation Abnormal (test code = 29368-6) [facility] CenterN-TERMINAL TID-SOE1941-04-14 11:23:18 Test Item Value Reference Range Interpretation Comments NT-proBNP (test code 100 pg/mL See_Comment [Autom ated = 0652331866) message] The system which generated this result transmitted reference range : <=125. The reference range was not used to interpret this result as normal/abnormal . PAULA (test code = PAULA) Biotin has been reported to cause a negative bias, interpret results relative to patient's use of biotin. Lab Interpretation Normal (test code = 62954-4) [facility] WITH [id number] 11:03:17 Test Item Value Reference Range Interpretation [...] RDW-SD (test code = 44.5 fL 39.0-49.9 11130-1) RDW-CV (test code = 12.7 % 12.0-15.5 788-0) PLT (test code = See_Comment [Automated 777-3) message] The sy stem which generated this result transmitted reference range : 166 - 358 10*3/ ?L. The reference r micah was not used to interpret this result as normal/abnormal . MPV (test code = 10.3 fL 9.5-12.9 11636-0) NRBC/100 WBC (test See_Comment [Automat ed code = 5160637004) message] The system which generated this result transmitted reference range : 0.0 - 10.0 /100 WBCs. The refer ence range was not u sed to interpret th is result as normal/abnormal . NRBC x10^3 (test code <0.01 See_Comment [Auto mated = 4269863070) message] The s ystem which generated this result transmitted reference range : 10*3/?L. The reference range was not used to interpret this result as normal/abnormal . GRAN MAT (NEUT) % 51.5 % (test code = 770-8) IMM GRAN % (test code 0.40 % = 5451955169) LYMPH % (test code = 35.6 % 736-9) MONO % (test code = 8.2 % 5905-5) EOS % (test code = 3.1 % 713-8) BASO % (test code = 1.2 % 706-2) GRAN MAT x10^3(ANC) 3.78 10*3/uL 1.88-7.09 (test code = 1998999652) IMM GRAN x10^3 (test 0.03 10*3/uL 0.00-0.06 code = 5731540617) LYMPH x10^3 (test code 2.61 10*3/uL 1.32-3.29 = 731-0) MONO x10^3 (test code 0.60 10*3/uL 0.33-0.92 = 742-7) EOS x10^3 (test code = 0.23 10*3/uL 0.03-0.39 711-2) BASO x10^3 (test code 0.09 10*3/uL 0.01-0.07 H = 704-7) Lab Interpretation Abnormal (test code = 40956-5) [facility]BIJAL [id number] 10:38:33 Test Item Value Reference Range Interpretation Comments TROPONIN I (test <0.012 See_Comment [Automated code = 8386740729) message] The system which generated this result [...] ? Lab Interpretation Normal (test code = 41552-2) [facility]. METABOLIC PANEL (45744)2020-09-06 10:26:52 Test Item Value Reference Range Interpretation Comments NA (test code = 134 mmol/L 135-145 L 4716033052) K (test code = 3.9 mmol/L 3.5-5.0 8999785179) CL (test code = 100 mmol/L 98-108 4786927680) CO2 TOTAL (test code = 27 mmol/L 23-31 2903641187) AGAP (test code = 2-16 5394808982) BUN (test code = 17 mg/dL 7-23 3631626590) GLUCOSE (test code = 90 mg/dL 70-110 7636722810) CREATININE (test code = 0.65 mg/dL 0.50-1.04 7762260025) TOTAL BILI (test code = 0.4 mg/dL 0.1-1.6 9571296429) CALCIUM (test code = 8.3 mg/dL 8.6-10.6 L 8922274637) T PROTEIN (test code = 7.1 g/dL 6.3-8.2 3553097424) ALBUMIN (test code = 4.1 g/dL 3.5-5.0 6165019207) ALK PHOS (test code = 101 U/L 34-122 4019849930) ALTv (test code = 47 U/L 5-35 H 1742-6) AST(SGOT) (test code = 45 U/L 13-40 H 5024215099) eGFR Calculation mL/min/1.73m2 (Non-) (test code = 5874220804) eGFR Calculation mL/min/1.73m2 () (test code = 5909438893) PAULA (test code = PAULA) Association of [...] tests). Lab Interpretation Abnormal (test code = 38418-2) [facility] CenterLIPASE, [id number] 10:26:32 Test Item Value Reference Range Interpretation Comments LIPASE (test code = 2545552912) 139 U/L 0-220 Lab Interpretation (test code = Normal 39707-6) [facility] CenterD-FKKNZ8434-46-79 03:26:49 Test Item Value Reference Interpretation Comments Range D-DIMER (test code = <0.27 See_Comment [Autom ated 6365703315) message] The system which generated this result [...] diagnosis. Lab Interpretation Normal (test code = 77890-0) [facility] CenterTHYROID STIMULATING GTZEDIN8620-82-08 02:42:25 Test Item Value Reference Range Interpretation Comments TSH (test code = See_Comment [Automated message] 9078073907) The system [employer] generated this result transmitted ref erence range: 0.45 - 4 .70 mIU/L. The refe rence range was not u sed to interpret this result as normal/abnor mal. Lab Interpretation (test Normal code = 13434-5) [facility] CenterN-TERMINAL SGN-EOU6986-72-10 02:20:57 Test Item Value Reference Range Interpretation Comments NT-proBNP (test code 223 pg/mL See_Comment H [Autom ated = 7097494521) message] The system which generated this result transmitted reference range : <=125. The reference range was not used to interpret this result as normal/abnormal . PAULA (test code = PAULA) Biotin has been reported to cause a negative bias, interpret results relative to patient's use of biotin. Lab Interpretation Abnormal (test code = 67004-7) [facility] CenterTroponin [id number] 01:06:21 Test Item Value Reference Range Interpretation Comments TROPONIN I (test <0.012 See_Comment [Automated code = 8982943459) message] The system which generated this result [...] ? Lab Interpretation Normal (test code = 75108-3) [facility] (ALB, T.PRO, BILI T, BU/BC, ALT, AST, ALK PHOS)2020-09-02 00:56:20 Test Item Value Reference Range Interpretation Comments TOTAL BILI (test code = 1454442050) 0.5 mg/dL 0.1-1.1 BILI UNCON (test code = 8947056273) 0.3 mg/dL 0.1-1.1 BILI CONJ (test code = 1439341330) 0.0 mg/dL 0.0-0.3 T PROTEIN (test code = 0601395093) 8.1 g/dL 6.3-8.2 ALBUMIN (test code = 7411447210) 4.7 g/dL 3.5-5.0 ALK PHOS (test code = 8804222421) 109 U/L 34-122 ALTv (test code = 1742-6) 75 U/L 5-35 H AST(SGOT) (test code = 3404658152) 53 U/L 13-40 H Lab Interpretation (test code = Abnormal 20315-4) [facility] (NA, K, CL, CO2, GLUCOSE, BUN, CREATININE, CA)2020-09-02 00:56:00 Test Item Value Reference Range Interpretation Comments NA (test code = 136 mmol/L 135-145 2087337204) K (test code = 3.8 mmol/L 3.5-5.0 5598685939) CL (test code = 99 mmol/L 98-108 5492142395) CO2 TOTAL (test code = 27 mmol/L 23-31 6507617197) AGAP (test code = 2-16 6588149848) BUN (test code = 4 mg/dL 7-23 L 3754432345) GLUCOSE (test code = 115 mg/dL 70-110 H 7507049774) CREATININE (test code = 0.49 mg/dL 0.50-1.04 L 0693111745) CALCIUM (test code = 9.4 mg/dL 8.6-10.6 6524515656) eGFR Calculation mL/min/1.73m2 (Non-) (test code = 5793741447) eGFR Calculation mL/min/1.73m2 () (test code = 5821571845) PAULA (test code = PAULA) Association of [...] tests). Lab Interpretation Abnormal (test code = 82463-6) [facility] CenterLipase [id number] 00:56:00 Test Item Value Reference Range Interpretation Comments LIPASE (test code = 6368270757) 60 U/L 0-220 Lab Interpretation (test code = Normal 70272-8) [facility]COVID[facility] (ID NOW RAPID TESTING)2020-09-02 00:31:12 Test Item Value Reference Range Interpretation Comments SARS-CoV-2 Rapid ID NOW Not Detected Not Detected (test code = 91860-7) PAULA (test code = PAULA) ID NOW COVID-19 Assay is an isothermal nucleic acid amplification test intended for the qualitative detection of nucleic acid from SARS-CoV-2 viral RNA in nasopharyngeal (CHEMICAL MACHINE TENDER) specimens. It is used under Emergency Use [...] indicated. Lab Interpretation Normal (test code = 99259-3) [facility] CenterCB with [id number] 00:21:26 Test Item Value Reference Range Interpretation Comments WBC (test code = See_Comment [Automated 6490-2) message] The sy stem which generated this result transmitted reference range : 4.30 - 11.10 10*3/?L. The reference range was not used to interpret this result as normal/abnormal . RBC (test code = See_Comment [Automated 558-8) message] The sy stem which generated this [...] RDW-SD (test code = 43.6 fL 39.0-49.9 35010-3) RDW-CV (test code = 12.9 % 12.0-15.5 788-0) PLT (test code = See_Comment H [Automated 777-3) message] The sy stem which generated this result transmitted reference range : 166 - 358 10*3/ ?L. The reference r micah was not used to interpret this result as normal/abnormal . MPV (test code = 9.4 fL 9.5-12.9 L 05499-7) NRBC/100 WBC (test See_Comment [Automat ed code = 7978593852) message] The system which generated this result transmitted reference range : 0.0 - 10.0 /100 WBCs. The refer ence range was not u sed to interpret th is result as normal/abnormal . NRBC x10^3 (test code <0.01 See_Comment [Auto mated = 9047813322) message] The s ystem which generated this result transmitted reference range : 10*3/?L. The reference range was not used to interpret this result as normal/abnormal . GRAN MAT (NEUT) % 71.0 % (test code = 770-8) IMM GRAN % (test code 0.50 % = 5074724984) LYMPH % (test code = 19.1 % 736-9) MONO % (test code = 7.6 % 5905-5) EOS % (test code = 0.7 % 713-8) BASO % (test code = 1.1 % 706-2) GRAN MAT x10^3(ANC) 6.08 10*3/uL 1.88-7.09 (test code = 3895265770) IMM GRAN x10^3 (test 0.04 10*3/uL 0.00-0.06 code = 3372262708) LYMPH x10^3 (test code 1.63 10*3/uL 1.32-3.29 = 731-0) MONO x10^3 (test code 0.65 10*3/uL 0.33-0.92 = 742-7) EOS x10^3 (test code = 0.06 10*3/uL 0.03-0.39 711-2) BASO x10^3 (test code 0.09 10*3/uL 0.01-0.07 H = 704-7) Lab Interpretation Abnormal (test code = 86122-1) [facility] Metabolic Panel (NA, K, CL, CO2, Glucose, BUN, Creatinine, CA)2020-04-12 10:56:00 Test Item Value Reference Range Interpretation Comments NA (test code = 135 mmol/L 135-145 5027214393) K (test code = 4.1 mmol/L 3.5-5 8045781470) CL (test code = 105 mmol/L 98-108 8742876952) CO2 TOTAL (test code = 28 mmol/L 23-31 4535659520) AGAP (test code = 2-16 9227344865) BUN (test code = 11 mg/dL 7-23 3491730295) GLUCOSE (test code = 95 mg/dL 70-110 3568911994) CREATININE (test code = 0.57 mg/dL 0.5-1.04 6341488735) CALCIUM (test code = 7.9 mg/dL 8.6-10.6 L 4981517290) eGFR Calculation mL/min/1.73m2 (Non-) (test code = 6042099981) eGFR Calculation mL/min/1.73m2 () (test code = 8556851849) PAULA (test code = PAULA) Association of [...] tests). Lab Interpretation Abnormal (test code = 97960-9) [facility] with [id number] 10:31:00 Test Item Value Reference Range Interpretation Comments WBC (test code = See_Comment [Automated 5090-2) message] The sy stem which generated this result transmitted reference range : 4.30 - 11.10 10*3/?L. The reference range was not used to interpret this result as normal/abnormal . RBC (test code = See_Comment L [Automated 694-8) message] The sy stem which generated this [...] RDW-SD (test code = 44.9 fL 39-49.9 88196-6) RDW-CV (test code = 13.2 % 12-15.5 788-0) PLT (test code = See_Comment [Automated 777-3) message] The sy stem which generated this result transmitted reference range : 166 - 358 10*3/ ?L. The reference r micah was not used to interpret this result as normal/abnormal . MPV (test code = 9.8 fL 9.5-12.9 41769-1) NRBC/100 WBC (test See_Comment [Automat ed code = 0623087665) message] The system which generated this result transmitted reference range : 0.0 - 10.0 /100 WBCs. The refer ence range was not u sed to interpret th is result as normal/abnormal . NRBC x10^3 (test code <0.01 See_Comment [Auto mated = 2407058510) message] The s ystem which generated this result transmitted reference range : 10*3/?L. The reference range was not used to interpret this result as normal/abnormal . GRAN MAT (NEUT) % 47.2 % (test code = 770-8) IMM GRAN % (test code 0.30 % = 3924870798) LYMPH % (test code = 40.7 % 736-9) MONO % (test code = 8.4 % 5905-5) EOS % (test code = 2.5 % 713-8) BASO % (test code = 0.9 % 706-2) GRAN MAT x10^3(ANC) 3.15 10*3/uL 1.88-7.09 (test code = 8570700469) IMM GRAN x10^3 (test <0.03 0-0.06 code = 0056508546) LYMPH x10^3 (test code 2.72 10*3/uL 1.32-3.29 = 731-0) MONO x10^3 (test code 0.56 10*3/uL 0.33-0.92 = 742-7) EOS x10^3 (test code = 0.17 10*3/uL 0.03-0.39 711-2) BASO x10^3 (test code 0.06 10*3/uL 0.01-0.07 = 704-7) Lab Interpretation Abnormal (test code = 50440-6) [facility]XR FOREARM 2 VW [id number] 21:32:56 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 [...] with no effusionidentified.IMPRESSIONElbow joint osteoarthrosis.No acute fractures. [facility] CenterXR HAND 3+ VW [id number] 21:31:56 No fracture or dislocation identified.EXAM: XR HAND 3+ VW LEFT HISTORY: trauma, ttp just proximal to wrist COMPARISON: None FINDINGS: Imaging of the hand demonstrates maintenance of alignment. No fractures areseen. Joint spaces are preserved. [facility]11[facility] 4:33 PM CDTEXAM:XR HAND 3+ VW LEFTHISTORY:trauma, ttp just proximal to wrist COMPARISON:NoneFINDINGS: Imaging of the hand demonstrates maintenance of alignment. No fractures areseen. Joint spaces are preserved.IMPRESSIONNo fracture or dislocation identified. [facility]W [id number] 21:30:19 No acute bony abnormality is present. EXAM: XR WRIST 3+ VW LEFT HISTORY: trauma ttp proximal to wrist COMPARISON: None FINDINGS: Imaging of the wrist demonstrates maintenance of alignment. Joint spacesare preserved. The soft tissues are within normal limits. [facility]/11/2020 4:31 PM CDTEXAM:XR WRIST 3+ VW LEFTHISTORY:trauma ttp proximal to wrist COMPARISON:NoneFINDINGS: Im aging of the wrist demonstrates maintenance of alignment. Joint spacesare preserved. The soft tissues are within normal limits.IMPRESSIONNo acute bony abnormality is present.[facility]W LEFT 2020-04-11 15:00:43 No [...] reviewed this study and agree with the abovereport.[facility] ANKLE 3+ VW [id number] 15:00:43 No acute bony abnormality. Preliminary Report [...] ankle mortise is anatomic. Minimal forefoot swelling. [facility]/11/2020 10:01 AM CDTEXAM: [...] reviewed this study and agree with the abovereport.[facility]XR TIBIA FIBULA 2 VW LEFT 2020-04-11 15:00:43 [...] reviewed this study and agree with the abovereport.[facility] CenterCT TRAUMA THORAX W CONTRAST 2020-04-11 14:32:46 Wedge [...] reviewed this study and agree with the abovereport.[facility] CenterCT TRAUMA ABDOMEN PELVIS W [id number] 14:32:46 Wedge compression deformity of T12, discussed [...] is identified. No pelvic fracture is identified. [facility], Radiant Results [facility] User -04/11/2020 9:33 [...] reviewed this study and agree with the abovereport.[facility] CenterCT TRAUMA HEAD WO [id number] 13:39:41Addendum by Macarena Paredes MD on 04/11/2020 [...] reviewed this study and agree with theabove report.[facility]CT TRA[facility]MA CERVICAL SPINE WO [id number] 13:39:41Addendum by Macarena Paredes MD on 04/11/2020 [...] reviewed this study and agree with theabove report.[facility]CT TRA[facility]MA THORACIC SPINE WO [id number] 13:39:41Addendum by Macarena Paredes MD on 04/11/2020 [...] reviewed this study and agree with theabove report.[facility] CenterCT TRA[facility]MA LUMBAR SPINE WO [id number] 13:39:41Addendum by Macarena Paredes MD on 04/11/2020 [...] reviewed this study and agree with theabove report.[facility] CenterType and Screen - The Type and Screen expires at midnight on the 3rd day after it was drawn. A current Type and Screen is required when RBCs are requested. For all other blood products, a Type and Screen performed during the current hospitalizati...2020-04-11 13:14:02 Test Item Value Reference Range Interpretation Comments ABO & RH (test code A POSITIVE Performe d at [facility] = 20) Laboratory [facility] [place] [address] s [id number] Free: [phone] A No. [id number] IAT (test code = Negative Performed a t [facility] 1185) Laboratory [facility] [place] [address] s [id number] Free: [phone] A No. [id number] [facility] CenterBasic Metabolic Panel (NA, K, CL, CO2, GLUCOSE, BUN, CREATININE, CA)2020-04-11 12:45:00 Test Item Value Reference Range Interpretation Comments NA (test code = 136 mmol/L 135-145 3786582089) K (test code = 4.7 mmol/L 3.5-5 Slight hemoly sis 4298978657) CL (test code = 102 mmol/L 98-108 1062335802) CO2 TOTAL (test 25 mmol/L 23-31 code = 8613609115) AGAP (test code = 2-16 2397942356) BUN (test code = 14 mg/dL 7-23 Slight hemo lysis 6498084312) GLUCOSE (test code 99 mg/dL 70-110 = 6941209936) CREATININE (test 0.85 mg/dL 0.5-1.04 code = 6039140500) CALCIUM (test code 9.0 mg/dL 8.6-10.6 = 5266503867) eGFR Calculation mL/min/1.73m2 (Non-) (test code = 5168484865) eGFR Calculation mL/min/1.73m2 () (test code = 9014321075) PAULA (test code = Association of PAULA) [...] or urine or abnormalities in imaging tests). [facility] CenterProthrombin Time / [id number] 12:41:00 Test Item Value Reference Range Interpretation Comments PROTIME PATIENT (test See_Comment [Auto mated message] code = 5964-2) The system [employer] generated this result transmitted ref erence range: 10.1 - 1 2.6 Seconds. The re ference range was not u sed to interpret this result as normal/abnor mal. INR (test code = 6301-6) Nor mal INR <1.1; Warfarin Therap eutic range 2.0 to 3. 0 or 2.5 to 3.5, dep ending upon the indica tions. Lab Interpretation (test Normal code = 21134-6) [facility] CenteraPTT2020-10-17 12:41:00 Test Item Value Reference Range Interpretation Comments APTT Patient (test code See_Comment L [Au tomated message] = 3173-2) The system [employer] generated this result transmitted ref erence range: 26 - 36 Seconds. The reference range was not used to int erpret this result as normal/abnormal . Lab Interpretation (test Abnormal code = 92307-2) [facility] CenterProfile / [id number] 12:31:00 Test Item Value Reference Range Interpretation Comments WBC (test code = 6690-2) See_Comment H [A utomated message] The system [employer] generated this result transmit bhaskar reference range : 4.30 - 11.10 10*3/?L. The reference range was not used to interpret this result as normal/abnormal . RBC (test code = 789-8) See_Comment [Au tomated message] The system [employer] generated this result transmit bhaskar reference range [...] 777-3) See_Comment [Au tomated message] The system [employer] generated this result transmit bhaskar reference range : 166 - 358 10*3/?L. The reference range was not used to interpret this result as normal/abnormal . MPV (test code = 10.0 fL 9.5-12.9 37264-4) RDW-CV (test code = 12.9 % 12-15.5 788-0) RDW-SD (test code = 43.6 fL 39-49.9 52078-0) NRBC x10^3 (test code = <0.01 See_Comment [Au tomated message] 1581810722) The system [employer] generated this result transmit bhaskar reference range : 10*3/?L. The reference range was not used to interpret this result as normal/abnormal . NRBC/100 WBC (test code See_Comment [Au tomated message] = 5161088205) The system [employer] generated this result transmit bhaskar reference range : 0.0 - 10.0 /100 WBC s. The reference r micah was not used to interpret this result as normal/abnormal . IPF % (test code = 3720118348) Lab Interpretation (test Abnormal code = 04279-8) [facility] [id number] 02:32:00 Test Item Value Reference Range Interpretation Comments TROPONIN I (test 0.013 ng/mL See_Comment [Automated code = 0531896883) message] The system which generated this result [...] ? Lab Interpretation Normal (test code = 40515-8) [facility] / [facility] - DRUG SCREEN [id number] 05:48:00 Test Item Value Reference Range Interpretation Comments BENZO U (test code = Presumptive Positive Negative A 9870098238) ANN U (test code = Negative Negative 5919364231) AMPHET (test code = Presumptive Positive Negative A 4382658336) THC (test code = Negative Negative 8976091683) METHADONE (test code = Negative Negative 5165803883) Meth U (test code = Presumptive Positive Negative A 3552498882) OPIATES (test code = Negative Negative 5264938156) Cocaine Metabolite (test Negative Negative code = 3161220599) PROPOXY (test code = Negative Negative 0360444053) Tric U (test code = Negative Negative 4455584810) PCP (test code = Negative Negative 4123049173) OXYCOD (test code = Negative Negative 4645826106) PAULA (test code = PAULA) Urine Drug [...] testing). Lab Interpretation (test Abnormal code = 21375-6) [facility]XR CHEST 1 [id number] 04:51:01Impression: No acute cardiopulmonary changes. Preliminary Report [...] reviewed this study and agree withthe above report.[facility] CenterTROPONIN [id number] 04:48:00 Test Item Value Reference Range Interpretation Comments TROPONIN I (test 0.018 ng/mL See_Comment [Automated code = 8430017053) message] The system which generated this result [...] ? Lab Interpretation Normal (test code = 69356-6) [facility] CenterN-TERMINAL [id number] 04:45:00 Test Item Value Reference Range Interpretation Comments NT-proBNP (test code 309 pg/mL See_Comment H [Autom ated = 6444839881) message] The system which generated this result transmitted reference range : <=125. The reference range was not used to interpret this result as normal/abnormal . PAULA (test code = PAULA) Biotin has been reported to cause a negative bias, interpret results relative to patient's use of biotin. Lab Interpretation Abnormal (test code = 87123-2) [facility] CenterD-[id number] 04:43:00 Test Item Value Reference Interpretation Comments Range D-DIMER (test code = <0.27 See_Comment [Autom ated 6424716233) message] The system which generated this result [...] diagnosis. Lab Interpretation Normal (test code = 84263-8) [facility] CenterCOVID-19 (ID NOW RAPID TESTING)2020-04-10 04:42:00 Test Item Value Reference Range Interpretation Comments SARS-CoV-2 Rapid ID NOW Not Detected Not Detected (test code = 14405-2) PAULA (test code = PAULA) ID NOW COVID-19 Assay is an isothermal nucleic acid amplification test intended for the qualitative detection of nucleic acid from SARS-CoV-2 viral RNA in nasopharyngeal (CHEMICAL MACHINE TENDER) specimens. It is used under Emergency Use [...] indicated. Lab Interpretation Normal (test code = 89193-3) [facility] CenterMAGNESIUM2020-10-16 04:37:00 Test Item Value Reference Range Interpretation Comments MAGNESIUM (test code = 1333813529) 1.7 mg/dL 1.7-2.4 Lab Interpretation (test code = Normal 55541-8) [facility] CenterCOMP. METABOLIC PANEL (90665)2020-04-10 04:36:00 Test Item Value Reference Range Interpretation Comments NA (test code = 135 mmol/L 135-145 1282595189) K (test code = 3.4 mmol/L 3.5-5 L 7649410846) CL (test code = 99 mmol/L 98-108 6303658503) CO2 TOTAL (test code = 24 mmol/L 23-31 8132014214) AGAP (test code = 2-16 7671377754) BUN (test code = 8 mg/dL 7-23 4802306347) GLUCOSE (test code = 119 mg/dL 70-110 H 4664855913) CREATININE (test code = 0.71 mg/dL 0.5-1.04 3749317409) TOTAL BILI (test code = 0.5 mg/dL 0.1-1.0 8885579730) CALCIUM (test code = 10.9 mg/dL 8.6-10.6 H 4397050158) T PROTEIN (test code = 8.1 g/dL 6.3-8.2 4846177476) ALBUMIN (test code = 4.4 g/dL 3.5-5 6799075427) ALK PHOS (test code = 85 U/L 34-122 2573609548) ALTv (test code = 51 U/L 5-35 H 1742-6) AST(SGOT) (test code = 42 U/L 13-40 H 5454889255) eGFR Calculation mL/min/1.73m2 (Non-) (test code = 3767117868) eGFR Calculation mL/min/1.73m2 () (test code = 8428866217) PAULA (test code = PAULA) Association of [...] tests). Lab Interpretation Abnormal (test code = 74860-5) [facility] CenterLIPASE2020-10-16 04:36:00 Test Item Value Reference Range Interpretation Comments LIPASE (test code = 0141025386) 193 U/L 0-220 Lab Interpretation (test code = Normal 46291-5) [facility] WITH [id number] 04:22:00 Test Item Value Reference Range Interpretation [...] RDW-SD (test code = 41.7 fL 39-49.9 43188-8) RDW-CV (test code = 12.5 % 12-15.5 788-0) PLT (test code = See_Comment [Automated 777-3) message] The sy stem which generated this result transmitted reference range : 166 - 358 10*3/ ?L. The reference r micah was not used to interpret this result as normal/abnormal . MPV (test code = 9.5 fL 9.5-12.9 16442-0) NRBC/100 WBC (test See_Comment [Automat ed code = 2577976852) message] The system which generated this result transmitted reference range : 0.0 - 10.0 /100 WBCs. The refer ence range was not u sed to interpret th is result as normal/abnormal . NRBC x10^3 (test code <0.01 See_Comment [Auto mated = 4218375775) message] The s ystem which generated this result transmitted reference range : 10*3/?L. The reference range was not used to interpret this result as normal/abnormal . GRAN MAT (NEUT) % 67.8 % (test code = 770-8) IMM GRAN % (test code 0.50 % = 6430659238) LYMPH % (test code = 24.0 % 736-9) MONO % (test code = 6.6 % 5905-5) EOS % (test code = 0.6 % 713-8) BASO % (test code = 0.5 % 706-2) GRAN MAT x10^3(ANC) 7.32 10*3/uL 1.88-7.09 H (test code = 4251568977) IMM GRAN x10^3 (test 0.05 10*3/uL 0-0.06 code = 2460299226) LYMPH x10^3 (test code 2.58 10*3/uL 1.32-3.29 = 731-0) MONO x10^3 (test code 0.71 10*3/uL 0.33-0.92 = 742-7) EOS x10^3 (test code = 0.06 10*3/uL 0.03-0.39 711-2) BASO x10^3 (test code 0.05 10*3/uL 0.01-0.07 = 704-7) Lab Interpretation Abnormal (test code = 12604-9) [facility]. METABOLIC PANEL (70533)2020-02-25 19:07:00 Test Item Value Reference Range Interpretation Comments NA (test code = 135 mmol/L 135-145 4767400968) K (test code = 3.7 mmol/L 3.5-5 5578581989) CL (test code = 106 mmol/L 98-108 7385191980) CO2 TOTAL (test code = 21 mmol/L 23-31 L 6345712888) AGAP (test code = 2-16 6096145515) BUN (test code = 9 mg/dL 7-23 4813620383) GLUCOSE (test code = 116 mg/dL 70-110 H 3531559506) CREATININE (test code = 0.57 mg/dL 0.5-1.04 0036883215) TOTAL BILI (test code = 0.7 mg/dL 0.1-1.1 7665082000) CALCIUM (test code = 9.4 mg/dL 8.6-10.6 2832004555) T PROTEIN (test code = 8.2 g/dL 6.3-8.2 5518392461) ALBUMIN (test code = 4.6 g/dL 3.5-5 2660973155) ALK PHOS (test code = 116 U/L 34-122 8073812627) ALTv (test code = 67 U/L 5-35 H 1742-6) AST(SGOT) (test code = 70 U/L 13-40 H 1458225266) eGFR Calculation mL/min/1.73m2 (Non-) (test code = 3075827859) eGFR Calculation mL/min/1.73m2 () (test code = 4911724558) PAULA (test code = PAULA) Association of [...] tests). Lab Interpretation Abnormal (test code = 99070-8) [facility] WITH [id number] 18:51:00 Test Item Value Reference Range Interpretation Comments WBC (test code = See_Comment [Automated message] 6690-2) The system [employer] generated this result transmitted ref erence range: 4.30 - 1 1.10 10*3/?L. The re ference range was not u sed to interpret this result as normal/abnor mal. RBC (test code = See_Comment [Automated message] 859-8) The system [employer] generated this result transmitted ref erence range: [...] RDW-SD (test code 41.6 fL 39-49.9 = 13399-3) RDW-CV (test code 12.6 % 12-15.5 = 788-0) PLT (test code = See_Comment [Automated message] 777-3) The system [employer] generated this result transmitted ref erence range: 166 - 35 8 10*3/?L. The re ference range was not u sed to interpret this result as normal/abnor mal. MPV (test code = 10.0 fL 9.5-12.9 23380-2) NRBC/100 WBC (test See_Comment [Automat ed message] code = 6134113131) The syste m which generated this result transmitted ref erence range: 0.0 - 10 .0 /100 WBCs. The refer ence range was not u sed to interpret this result as normal/abnor mal. NRBC x10^3 (test <0.01 See_Comment [Automated message] code = 2775390053) The syste m which generated this result transmitted ref erence range: 10*3/?L. The reference range was not used to interpr et this result as normal/abnormal . GRAN MAT (NEUT) % 63.1 % (test code = 770-8) IMM GRAN % (test 0.40 % code = 6844289508) LYMPH % (test code 27.0 % = 736-9) MONO % (test code 8.0 % = 5905-5) EOS % (test code = 0.6 % 713-8) BASO % (test code 0.9 % = 706-2) GRAN MAT 5.02 10*3/uL 1.88-7.09 x10^3(ANC) (test code = 9309860357) IMM GRAN x10^3 0.03 10*3/uL 0-0.06 (test code = 3173726653) LYMPH x10^3 (test 2.15 10*3/uL 1.32-3.29 code = 731-0) MONO x10^3 (test 0.64 10*3/uL 0.33-0.92 code = 742-7) EOS x10^3 (test 0.05 10*3/uL 0.03-0.39 code = 711-2) BASO x10^3 (test 0.07 10*3/uL 0.01-0.07 code = 704-7) [facility]PELVIS W/[id number] 18:17:32NPO 4 hours. Do not withhold medsProcedure: [...] PMDictated By: MIGUEL GILMANDate: 08/22/2019 18:11[facility] , [id number] 17:09:00 Test Item Value Reference Range Interpretation Comments (Urine) (test code = Negative PREGU) [facility] LAB URINALYSIS WITHOUT [id number] 17:08:00 Test Item Value Reference Range Interpretation Comments Color (test code = UCOLR) Light yellow Lt. Yellow A Clarity (test code = UCLAR) Clear Glucose (test code = UGLUC) Negative Negative N Bilirubin (test code = UBILI) Negative Negative N Ketones (test code = UKET) Negative Negative N Specific [place] (test code = 1.015 1.005-1.030 A USPGR) Blood (test code = UBLD) Negative Negative N PH (test code = UPH) 5.5 4.5-8.0 A Protein (test code = UPROT) Negative Negative N Urobilinogen (test code = U 0.2 >0.2 N UROB) Nitrite (test code = UNITR) Negative Negative N Leukocyte Esterase (test code = Negative Negative N ULEUK) [facility] 16[facility]39:00 Test Item Value Reference Range Interpretation [...] ( 4 - SerumAlbumin)] EGFR if >60 Israeli (test code mL/min/1.73m\\ = EGFRAA) S\\2 EGFR if Non- >60 Estimate d Glomerular Israeli (test code mL/min/1.73m\\ Filtrat ion Rate (eGFR) [...] and management of c hronic kidney failure. [facility]pr[facility]-[id number] 16:39:00 Test Item Value Reference Range Interpretation Comments Lipase (test code = LIPA) 178 U/L 73-393 [facility] CBC WITH AUTO [id number] 16:16:00 Test Item Value Reference Range Interpretation [...] (test code = IG%) 0.4 % 0.0-0.4 [facility] EL[facility]OW [facility] 3 [id number] 17:59:10Procedure: XR ELBOW MIN 3 VIEWSOrder Date: 08/19/2019 2:54 PMOrdering Provider: FIONA Vincentinical Indication: [id number]: Pain of left elbow jointComparison: NoneFINDINGS:There is [...] 08/19/201917:52 [facility] AUGUSTINECT ABDOMEN PELVIS W [id number] 01:59:29 No acute intra- abdominal process. 3.2 [...] reviewed this study and agree with the abovereport.[facility], Urine 2019-07-13 00:29:00 Test Item Value Reference Range Interpretation Comments POCT PREG (test code = 1605) NEGATIVE Lab Interpretation (test code = Normal 95480-8) [facility]inalysis2020-[facility] 23:44:00 Test Item Value Reference Range Interpretation Comments APPEARANCE (test code = Clear Clear 8295029344) COLOR (test code = Straw Yellow A 7084538910) PH (test code = 4.8-8.0 5749155134) SP GRAVITY (test code = 1.003-1.030 8204667260) GLU U QUAL (test code = Normal Normal 8061853756) BLOOD (test code = Negative Negative 0213747744) KETONES (test code = Negative Negative 7279340666) PROTEIN (test code = Negative Negative 2887-8) UROBILIN (test code = Normal Normal 2530918253) BILIRUBIN (test code = Negative Negative 0562969693) NITRITE (test code = Negative Negative 8249862735) LEUK JONATHON (test code = Negative Negative 3430263993) RBC/HPF (test code = See_Comment [Autom ated message] 9573190921) The system [employer] generated this result transmitted ref erence range: 0 - 3 HP F. The reference range was not used to int erpret this result as normal/abnormal . WBC/HPF (test code = See_Comment [Autom ated message] 8278214916) The system [employer] generated this result transmitted ref erence range: 0 - 5 HP F. The reference range was not used to int erpret this result as normal/abnormal . BACTERIA (test code = Negative Negative 8943330018) SQ EPITH (test code = <1 See_Comment [Auto mated message] 2918608030) The system [employer] generated this result transmitted ref erence range: <=2 HPF. The reference range was not used to int erpret this result as normal/abnormal . Lab Interpretation (test Abnormal code = 56467-8) [facility]. METABOLIC PANEL (09434)2019-07-12 23:30:00 Test Item Value Reference Range Interpretation Comments NA (test code = 141 mmol/L 135-145 0239673660) K (test code = 3.5 mmol/L 3.5-5 5376611939) CL (test code = 105 mmol/L 98-108 0108312419) CO2 TOTAL (test code = 27 mmol/L 23-31 2522908570) AGAP (test code = 2-16 5757425896) BUN (test code = 9 mg/dL 7-23 9612506282) GLUCOSE (test code = 80 mg/dL 70-110 6484337773) CREATININE (test code = 0.50 mg/dL 0.5-1.04 4958600132) TOTAL BILI (test code = 0.4 mg/dL 0.1-1.1 3796093444) CALCIUM (test code = 8.7 mg/dL 8.6-10.6 8163691931) T PROTEIN (test code = 7.4 g/dL 6.3-8.2 9644135582) ALBUMIN (test code = 4.2 g/dL 3.5-5 3666632194) ALK PHOS (test code = 90 U/L 34-122 6404008886) ALTv (test code = 157 U/L 5-35 H 1742-6) AST(SGOT) (test code = 151 U/L 13-40 H 2147419311) eGFR Calculation mL/min/1.73m2 (Non-) (test code = 0300286761) eGFR Calculation mL/min/1.73m2 () (test code = 6658337130) PAULA (test code = PAULA) Association of [...] tests). Lab Interpretation Abnormal (test code = 94805-7) [facility] CenterLip[facility] [id number] 23:30:00 Test Item Value Reference Range Interpretation Comments LIPASE (test code = 9856198850) 86 U/L 0-220 Lab Interpretation (test code = Normal 50733-5) [facility] CenterCB WITH [id number] 23:16:00 Test Item Value Reference Range Interpretation Comments WBC (test code = See_Comment [Automated 6524-2) message] The sy stem which generated this result transmitted reference range : 4.30 - 11.10 10*3/?L. The reference range was not used to interpret this result as normal/abnormal . RBC (test code = See_Comment [Automated 017-8) message] The sy stem which generated this [...] RDW-SD (test code = 45.1 fL 39-49.9 57963-6) RDW-CV (test code = 13.3 % 12-15.5 788-0) PLT (test code = See_Comment [Automated 777-3) message] The sy stem which generated this result transmitted reference range : 166 - 358 10*3/ ?L. The reference r micah was not used to interpret this result as normal/abnormal . MPV (test code = 9.3 fL 9.5-12.9 L 59795-6) NRBC/100 WBC (test See_Comment [Automat ed code = 6858684080) message] The system which generated this result transmitted reference range : 0.0 - 10.0 /100 WBCs. The refer ence range was not u sed to interpret th is result as normal/abnormal . NRBC x10^3 (test code <0.01 See_Comment [Auto mated = 0626880859) message] The s ystem which generated this result transmitted reference range : 10*3/?L. The reference range was not used to interpret this result as normal/abnormal . GRAN MAT (NEUT) % 52.8 % (test code = 770-8) IMM GRAN % (test code 0.20 % = 7908810317) LYMPH % (test code = 36.2 % 736-9) MONO % (test code = 7.3 % 5905-5) EOS % (test code = 2.4 % 713-8) BASO % (test code = 1.1 % 706-2) GRAN MAT x10^3(ANC) 2.47 10*3/uL 1.88-7.09 (test code = 7268472073) IMM GRAN x10^3 (test <0.03 0-0.06 code = 1599768134) LYMPH x10^3 (test code 1.69 10*3/uL 1.32-3.29 = 731-0) MONO x10^3 (test code 0.34 10*3/uL 0.33-0.92 = 742-7) EOS x10^3 (test code = 0.11 10*3/uL 0.03-0.39 711-2) BASO x10^3 (test code 0.05 10*3/uL 0.01-0.07 = 704-7) Lab Interpretation Abnormal (test code = 02437-6) [facility] CenterXR CHEST 1 [id number] 16:58:56* * * * * * * * ORIGINAL REPORT * * * * * * * *EXAM: XR CHEST 1 VW HISTORY: Hx of cardiomegaly and angina, recent ED visit for CP, states thather heart is? COMPARISON: None. FINDINGS: The heart and great vessels are normal and the lungs are well expanded andclear.[facility], Radiant Results Inft User - 03/06/2019 11:59 AM CDT* * * * * * * * ORIGINAL REPORT * * * * * * * *EXAM: XR CHEST 1 VWHISTORY: Hx of cardiomegaly and angina, recent ED visit for CP, states thather heart is COMPARISON: None.FINDINGS:Theheart and great vessels are normal and the lungs are well expanded andclear.[facility]
--- NOTE | 2022-08-01 14:40 | EDPHYS ---
Physician Documentation [facility] [place], [place] Name: Denise Wick Age: 42 yrs Sex: Female : 1980 Arrival Date: 08/01/2022 Time: 13:59 Bed 14 Private MD: ED Physician Sushma Viera HPI: 08/01 14:34 This 42 yrs old Female presents to ER via EMS with complaints of chest pain. [facility] 14:34 32-year-old female with a history of hypertension, anxiety, bipolar disease presents to [facility] the ED with chief complaint chest pain and esophageal reflux type symptoms. She does state that she was told she had a hiatal hernia sometime ago. Symptoms started over the last several days but today is gotten worse. She describes it as a heartburn type syndrome with substernal chest pain as well. On review of systems, she denies headache, fever, URI symptoms, neck pain, back pain, shortness of breath, lower abdominal pain or abdominal pain, nausea, vomiting, diarrhea, rash, known sick contacts, travel history, or any other symptoms at this time. Pain is currently somewhat resolved and she is feeling better.. 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 - Social history:: Smoking status: Patient reports the use of cigarette tobacco products, smokes one-half pack cigarettes per day. ROS: 14:37 Constitutional: Negative for fever, chills, and weight loss, Eyes: Negative for injury, sp3 pain, redness, and discharge, ENT: Negative for injury, pain, and discharge, Neck: Negative for injury, pain, and swelling, Respiratory: Negative for shortness of breath, cough, wheezing, and pleuritic chest pain, Abdomen/GI: Negative for abdominal pain, nausea, vomiting, diarrhea, and constipation, Back: Negative for injury and pain, MS/Extremity: Negative for injury and deformity, Skin: Negative for injury, rash, and discoloration, Neuro: Negative for headache, weakness, numbness, tingling, and seizure, Psych: Negative for depression, anxiety, suicide ideation, homicidal ideation, and hallucinations, Allergy/Immunology: Negative for hives, rash, and allergies, Endocrine: Negative for neck swelling, polydipsia, polyuria, polyphagia, and marked weight changes, Hematologic/Lymphatic: Negative for swollen nodes, abnormal bleeding, and unusual bruising. 14:37 All other systems are negative. Exam: 14:37 Constitutional: This is a well developed, well nourished patient who is awake, alert, sp3 and in no acute distress. Head/Face: Normocephalic, atraumatic. Eyes: Pupils equal round and reactive to light, extra-ocular motions intact. Lids and lashes normal. Conjunctiva and sclera are non-icteric and not injected. Cornea within normal limits. Periorbital areas with no swelling, redness, or edema. ENT: Nares patent. No nasal discharge, no septal abnormalities noted. External auditory canals are clear. Oropharynx with no redness, swelling, or masses, exudates, or evidence of obstruction, uvula midline. Mucous membranes moist. Neck: Trachea midline, no thyromegaly or masses palpated, and no cervical lymphadenopathy. Supple, full range of motion without nuchal rigidity, or vertebral point tenderness. No Meningismus. Chest/axilla: Normal chest wall appearance and motion. Nontender with no deformity. No lesions are appreciated. Cardiovascular: Regular rate and rhythm with a normal S1 and S2. No gallops, murmurs, or rubs. Normal PMI, no JVD. No pulse deficits. Respiratory: Lungs have equal breath sounds bilaterally, clear to auscultation and percussion. No rales, rhonchi or wheezes noted. No increased work of breathing, no retractions or nasal flaring. Abdomen/GI: Soft, non-tender, with normal bowel sounds. No distension or tympany. No guarding or rebound. No evidence of tenderness throughout. Back: No spinal tenderness. No costovertebral tenderness. Full range of motion. Skin: Warm, dry with normal turgor. Normal color with no rashes, no lesions, and no evidence of cellulitis. MS/ Extremity: Pulses equal, no cyanosis. Neurovascular intact. Full, normal range of motion. Neuro: Awake and alert, GCS 15, oriented to person, place, time, and situation. Cranial nerves II-XII grossly intact. Motor strength 5/5 in all extremities. Sensory grossly intact. Cerebellar exam normal. Normal gait. Psych: Awake, alert, with orientation to person, place and time. Behavior, mood, and affect are within normal limits. 14:37 ECG was reviewed by the Attending Physician. EKG demonstrates normal sinus rhythm at 70 bpm with normal intervals, normal QRS, normal axis, normal ST/T-segment without evidence of any ischemia. Vital Signs: 14:06 BP 130 / 80; Pulse 100; Resp 18; Temp 98.6; Pulse Ox 98% on R/A; Weight 72.57 kg; 5 Height 5 ft. 6 in. (167.64 cm); Pain 6/10; 14:06 Body Mass Index 25.82 (72.57 kg, 167.64 cm) [facility] MDM: 14:17 Patient medically screened. sp3 14:38 Data reviewed: vital signs, nurses notes, EKG. ED course: 42-year-old female with chest sp3 pain. Differential diagnosis includes acute coronary syndrome, gastritis, GERD, among others. Clinically have ruled out sepsis, shock, pneumonia, any other critical findings. Patient has had multiple episodes of the same in the past per her prior records. If work-up is negative, will likely discharge patient home. GI cocktail will also be given.. ED course: She is now informing us that she has to leave immediately because her boyfriend is "throwing away all of her stuff" so she will be leaving [facility] despite attempts to get her to stay.. 08/01 14:17 Order name: EKG; Complete Time: 14:18 sp3 08/01 14:17 Order name: Cardiac monitoring; Complete Time: 14:49 sp3 08/01 14:17 Order name: EKG - Nurse/Tech; Complete Time: 14:48 sp3 08/01 14:17 Order name: IV Saline Lock; Complete Time: 14:49 sp3 08/01 14:17 Order name: Labs collected and sent sp3 08/01 14:17 Order name: O2 Per Protocol; Complete Time: 14:49 sp3 08/01 14:17 Order name: O2 Sat Monitoring; Complete Time: 14:49 sp3 Administered Medications: 14:53 Drug: GI Cocktail without - (Maalox Suspension 30 ml, Lidocaine Liquid 2 % 15 jh5 ml) Route: PO; Disposition Summary: 08/01/22 15:21 Left Against Medical Advice Location: Home(08/01/22 15:21) [facility] Condition: Stable(08/01/22 15:21) [facility] Followup: [facility] - With: Sushma Viera MD - When: As needed - Reason: Re-evaluation by your physician Signatures: Dispatcher [employer] EDMS Sushma Viera MD MD sp3 Stephanie Peralta RN RN [facility] Corrections: (The following items were deleted from the chart) 14:56 14:40 Home sp3 sp3 14:56 14:40 an acute exacerbation sp3 sp3 14:56 14:40 have worsened sp3 sp3 14:56 14:40 Stable sp3 sp3 14:56 14:40 Chest pain sp3 sp3
--- NOTE | 2022-08-01 14:40 | ER ---
Nurse's Notes [facility] Name: Denise Wick Age: 42 yrs Sex: Female : 1980 Arrival Date: 08/01/2022 Time: 13:59 Bed 14 Private MD: Diagnosis: Presentation: 08/01 14:06 Chief complaint: EMS states: pt complaints of chest pain, crushing that radiates to jh5 neck and pain since last night. When she lays down she feels acid in throat, throat hernandez, tastes acid. Coronavirus screen: Vaccine status: Patient reports being unvaccinated. Client denies travel out of the [place] in the last 14 days. Ebola Screen: Patient negative for fever greater than or equal to 101.5 degrees Fahrenheit, and additional compatible Ebola Virus Disease symptoms Patient denies exposure to infectious person. Patient denies travel to an Ebola-affected area in the 21 days before illness onset. Initial Sepsis Screen: Does the patient meet any 2 criteria? No. Patient's initial sepsis screen is negative. Does the patient have a suspected source of infection? No. Patient's initial sepsis screen is negative. Risk Assessment: Do you want to hurt yourself or someone else? Patient reports no desire to harm self or others. 14:06 Method Of Arrival: EMS: [facility] 14:06 Acuity: CHRISTINA 3 jh5 Triage Assessment: 14:07 General: Appears in no apparent distress. uncomfortable, slender, well groomed, well jh5 developed, Behavior is calm, cooperative, appropriate for age. Pain: Complains of pain in chest. APPLIER: 14:07 LMP N/A - Irregular menses jh5 Historical: - Allergies: 14:07 Codeine; 5 14:07 PENICILLINS; jh5 14:07 Toradol; jh5 14:07 Tramadol HCl; jh5 - PMHx: 14:07 Angina; Anxiety; Bipolar disorder; Hypertension; Hypothyroidism; jh5 - PSHx: 14:07 section; Ligation of fallopian tube; jh5 - Immunization history:: Adult Immunizations up to date. - Social history:: Smoking status: Patient reports the use of cigarette tobacco products, smokes one-half pack cigarettes per day. Assessment: 15:19 Reassessment: At this point in time pt has now had 2 erratic behavior episodes with [facility] staff and has requested AMA for th second time yelling and ripping leads off herself. IV was removed by the race and sports book writer. AMA form was signed. Vital Signs: 14:06 BP 130 / 80; Pulse 100; Resp 18; Temp 98.6; Pulse Ox 98% on R/A; Weight 72.57 kg; [facility] Height 5 ft. 6 in. (167.64 cm); Pain 6/10; 14:06 Body Mass Index 25.82 (72.57 kg, 167.64 cm) [facility] ED Course: 13:59 Patient arrived in ED. 14:00 Sushma Viera MD is Attending Physician. sp3 14:07 Triage completed. [facility] 14:07 Arm band placed on right wrist. [facility] 14:34 Maintain EMS IV. Dressing intact. Good blood return noted. Site clean \T\ dry. Gauge \T\ 5 site: 22 left AC. 15:21 Sushma Viera MD is Referral Physician. [facility] 15:21 IV discontinued, intact, bleeding controlled, No redness/swelling at site. Pressure [facility] dressing applied. Administered Medications: 14:53 Drug: GI Cocktail without - (Maalox Suspension 30 ml, Lidocaine Liquid 2 % 15 jh5 ml) Route: PO; Outcome: 15:21 Patient left the ED. [facility] Signatures: Lilli Roa Sushma Viera MD MD sp3 Stephanie Peralta RN RN [facility]
[2022-08-01] MEDS ORDERED: MAGNES/ALUMIN/SIMET 30ML UCUP ONE (14:54)
[2022-08-01] MEDS ORDERED: LIDOCAINE VISCOUS 2% SOLN 15 ML UDC ONE (14:54)
[2022-08-01 15:35] VITALS: BP 130/80; TEMP 98.6; O2SAT 98
== END 2022-08-01 15:21 | disposition left against medical advice (07) ==
LOC: ER 13:48
DX: R07.9 Chest pain, unspecified (principal); I10 Essential (primary) hypertension; F41.9 Anxiety disorder, unspecified; F17.210 Nicotine dependence, cigarettes, uncomplicated; Z88.0 Allergy status to penicillin; Z88.5 Allergy status to narcotic agent
CPT/HCPCS: 93005; 99283

== ENCOUNTER 2022-08-04 10:45 | Observation (INO) | payer OTHER ==
--- OUTSIDE RECORDS SUMMARY | 2022-08-04 10:56 | XMS REPORT | Continuity of Care Document ---
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 levothyroxi 2019-06 Yes 100ug Take 100 U nivers ne 100 mcg 0-21 mcg by ity of tablet 02:02: mouth [place] [address] daily. Medical Branch meloxicam 2019-06 Yes 7.5mg Take 7.5 Uni vers 7.5 mg 0-21 mg by ity of tablet 02:02: mouth [place] [address] daily. Medical Branch metoprolol 2019-06 Yes 25mg Take 25 mg U nivers tartrate 25 0-21 by mouth ity of mg tablet 02:02: daily. [place] [address] Medical Branch omeprazole 2019-06 Yes 20mg Take 20 mg U nivers 20 mg 0-21 by mouth ity of capsule 02:02: daily. [place] [address] Medical Branch pravastatin 2019-06 Yes 20mg Take 20 mg [facility] 20 mg 0-21 by mouth ity of tablet 02:02: at [place] [address] bedtime. Medical Branch triamcinolo 2019-06 Yes .1% Apply 0.1 U nivers ne 0-21 % to ity of acetonide/l 02:02: area(s) 2 [place] [address] [place] (two) Medical (ARISTOCORT times Branch A TOPICAL) daily. gabapentin 2019-06 Yes 300mg Take 300 Un [facility]ant 300 mg 0-21 mg by ity of capsule 02:02: mouth 2 [place] [address] (two) Medical times Branch daily. levothyroxi 2019-06 Yes 100ug Take 100 U nivers ne 100 mcg 0-21 mcg by ity of tablet 02:02: mouth [place] [address] daily. Medical Branch meloxicam 2019-06 Yes 7.5mg Take 7.5 Uni vers 7.5 mg 0-21 mg by ity of tablet 02:02: mouth [place] [address] daily. Medical Branch metoprolol 2019-06 Yes 25mg Take 25 mg U nivers tartrate 25 0-21 by mouth ity of mg tablet 02:02: daily. [place] [address] Medical Branch omeprazole 2019-06 Yes 20mg Take 20 mg U nivers 20 mg 0-21 by mouth ity of capsule 02:02: daily. [place] [address] Medical Branch pravastatin 2019-06 Yes 20mg Take 20 mg [facility] 20 mg 0-21 by mouth ity of tablet 02:02: at [place] [address] bedtime. Medical Branch triamcinolo 2019-06 Yes .1% Apply 0.1 U nivers ne 0-21 % to ity of acetonide/l 02:02: area(s) 2 [place] [address] [place] (two) Medical (ARISTOCORT times Branch A TOPICAL) daily. gabapentin 2019-1 Yes 300mg Take 300 Un [place] 300 mg 0-21 mg by ity of capsule 02:02: mouth 2 [place] [address] (two) Medical times Branch daily. levothyroxi 2019-06 Yes 100ug Take 100 U nivers ne 100 mcg 0-21 mcg by ity of tablet 02:02: mouth [place] [address] daily. Medical Branch meloxicam 2019-06 Yes 7.5mg Take 7.5 Uni vers 7.5 mg 0-21 mg by ity of tablet 02:02: mouth [place] [address] daily. Medical Branch metoprolol 2019-06 Yes 25mg Take 25 mg U nivers tartrate 25 0-21 by mouth ity of mg tablet 02:02: daily. [place] [address] Medical Branch omeprazole 2019-06 Yes 20mg Take 20 mg U nivers 20 mg 0-21 by mouth ity of capsule 02:02: daily. [place] [address] Medical Branch pravastatin 2019-06 Yes 20mg Take 20 mg [facility] 20 mg 0-21 by mouth ity of tablet 02:02: at [place] [address] bedtime. Medical Branch triamcinolo 2019-06 Yes .1% Apply 0.1 U nivers ne 0-21 % to ity of acetonide/l 02:02: area(s) 2 [place] [facility] ([facility]) Medical (ARISTOCORT times Branch A TOPICAL) daily. gabapentin 2019-06 Yes 300mg Take 300 Un sushant 300 mg 0-21 mg by ity of capsule 02:02: mouth 2 [place] [address] (two) Medical times Branch daily. levothyroxi 2019-06 Yes 100ug Take 100 U nivers ne 100 mcg 0-21 mcg by ity of tablet 02:02: mouth [place] [address] daily. Medical Branch meloxicam 2019-06 Yes 7.5mg Take 7.5 Uni vers 7.5 mg 0-21 mg by ity of tablet 02:02: mouth [place] [address] daily. Medical Branch metoprolol 2019-06 Yes 25mg Take 25 mg U nivers tartrate 25 0-21 by mouth ity of mg tablet 02:02: daily. [place] [address] Medical Branch omeprazole 2019-06 Yes 20mg Take 20 mg U nivers 20 mg 0-21 by mouth ity of capsule 02:02: daily. [address] Branch pravastatin 2019-06 Yes 20mg Take 20 mg [facility] 20 mg 0-21 by mouth ity of tablet 02:02: at [place] [address] bedtime. Medical Branch triamcinolo 2019- Yes .1% Apply 0.1 U nivers ne 0-21 % to ity of acetonide/l 02:02: area(s) 2 [place] (two) Medical (ARISTOCORT times Branch A TOPICAL) daily. gabapentin 2019-06 Yes 300mg Take 300 Un [place]ant 300 mg 0-21 mg by ity of capsule 02:02: mouth 2 [place] [address] (two) Medical times Branch daily. levothyroxi 2019- Yes 100ug Take 100 U nivers ne 100 mcg 0-21 mcg by ity of tablet 02:02: mouth [place] [address] daily. Medical Branch meloxicam 2019-06 Yes 7.5mg Take 7.5 Uni vers 7.5 mg 0-21 mg by ity of tablet 02:02: mouth [place] [address] daily. Medical Branch metoprolol 2019-06 Yes 25mg Take 25 mg U nivers tartrate 25 0-21 by mouth ity of mg tablet 02:02: daily. [place] [address] Medical Branch omeprazole 2019-06 Yes 20mg Take 20 mg U nivers 20 mg 0-21 by mouth ity of capsule 02:02: daily. [place] [address] Medical Branch pravastatin 2019-06 Yes 20mg Take 20 mg [facility] 20 mg 0-21 by mouth ity of tablet 02:02: at [place] [address] bedtime. Medical Branch triamcinolo 2019-06 Yes .1% Apply 0.1 U nivers ne 0-21 % to ity of acetonide/l 02:02: area(s) 2 [place] (two) Medical (ARISTOCORT times Branch A TOPICAL) daily. gabapentin 2019-06 Yes 300mg Take 300 Un [facility]ushant 300 mg 0-21 mg by ity of capsule 02:02: mouth 2 [place] [address] (two) Medical times Branch daily. levothyroxi 2019- Yes 100ug Take 100 U nivers ne 100 mcg 0-21 mcg by ity of tablet 02:02: mouth [place] [address] daily. Medical Branch meloxicam 2019- Yes 7.5mg Take 7.5 Uni vers 7.5 mg 0-21 mg by ity of tablet 02:02: mouth [place] [address] daily. Medical Branch metoprolol 2019- Yes 25mg Take 25 mg U nivers tartrate 25 0-21 by mouth ity of mg tablet 02:02: daily. [place] [address] Medical Branch omeprazole 2019-06 Yes 20mg Take 20 mg U nivers 20 mg 0-21 by mouth ity of capsule 02:02: daily. [place] [address] Medical Branch pravastatin 2019-06 Yes 20mg Take 20 mg [facility] 20 mg 0-21 by mouth ity of tablet 02:02: at [place] [address] bedtime. Medical Branch triamcinolo 2019-06 Yes .1% Apply 0.1 U nivers ne 0-21 % to ity of acetonide/l 02:02: area(s) 2 [place] [place] (two) Medical (ARISTOCORT times Branch A TOPICAL) daily. gabapentin 2019-06 Yes 300mg Take 300 Un s[place]ant 300 mg 0-21 mg by ity of capsule 02:02: mouth 2 [place] [address] (two) Medical times Branch daily. levothyroxi 2019-06 Yes 100ug Take 100 U nivers ne 100 mcg 0-21 mcg by ity of tablet 02:02: mouth [place] [address] daily. Medical Branch meloxicam 2019-06 Yes 7.5mg Take 7.5 Uni vers 7.5 mg 0-21 mg by ity of tablet 02:02: mouth [place] [address] daily. Medical Branch metoprolol 2019-06 Yes 25mg Take 25 mg U nivers tartrate 25 0-21 by mouth ity of mg tablet 02:02: daily. [place] [address] Medical Branch omeprazole 2019-06 Yes 20mg Take 20 mg U nivers 20 mg 0-21 by mouth ity of capsule 02:02: daily. [place] [address] Medical Branch pravastatin 2019-06 Yes 20mg Take 20 mg [facility] 20 mg 0-21 by mouth ity of tablet 02:02: at [place] [address] bedtime. Medical Branch triamcinolo 2019-06 Yes .1% Apply 0.1 U nivers ne 0-21 % to ity of acetonide/l 02:02: area(s) 2 [place] [place] (two) Medical (ARISTOCORT times Branch A TOPICAL) daily. acetaminoph 2019-06- No [id number] 650mg Take 2 [facility] en 325 mg 0-20 10-21 tablets by ity of tablet 00:00: 04:59 mouth [place] 00 :00 every 6 Medical (six) Branch hours as needed for Alternate with ibuprofen for pain scale 4-6. ibuprofen 2019-06- No [id number] 600mg Take 3 [facility] 200 mg 0-20 10-21 tablets by ity of tablet 00:00: 04:59 mouth [place] 00 :00 every 6 Medical (six) Branch hours as needed (Alternate with acetaminop hen for pain). acetaminoph 2019-06- No [id number] 650mg Take 2 [facility] en 325 mg 0-20 10-21 tablets by ity of tablet 00:00: 04:59 mouth [place] 00 :00 every 6 Medical (six) Branch hours as needed for Alternate with ibuprofen for pain scale 4-6. ibuprofen 2019-06- No [id number] 600mg Take 3 [facility] 200 mg 0-20 10-21 tablets by ity of tablet 00:00: 04:59 mouth [place] 00 :00 every 6 Medical (six) Branch hours as needed (Alternate with acetaminop hen for pain). acetaminoph 2019-06- No [id number] 650mg Take 2 [facility] en 325 mg 0-20 10-21 tablets by ity of tablet 00:00: 04:59 mouth [place] 00 :00 every 6 Medical (six) Branch hours as needed for Alternate with ibuprofen for pain scale 4-6. ibuprofen 2019-06- No [id number] 600mg Take 3 [facility] 200 mg 0-20 10-21 tablets by ity of tablet 00:00: 04:59 mouth [place] 00 :00 every 6 Medical (six) Branch hours as needed (Alternate with acetaminop hen for pain). acetaminoph 2019-06- No [id number] 650mg Take 2 [facility] en 325 mg 0-20 10-21 tablets by ity of tablet 00:00: 04:59 mouth [place] 00 :00 every 6 Medical (six) Branch hours as needed for Alternate with ibuprofen for pain scale 4-6. ibuprofen 2019-06- No [id number] 600mg Take 3 [facility] 200 mg 0-20 10-21 tablets by ity of tablet 00:00: 04:59 mouth [place] 00 :00 every 6 Medical (six) Branch hours as needed (Alternate with acetaminop hen for pain). acetaminoph 2019-06- No [id number] 650mg Take 2 [facility] en 325 mg 0-20 10-21 tablets by ity of tablet 00:00: 04:59 mouth [place] 00 :00 every 6 Medical (six) Branch hours as needed for Alternate with ibuprofen for pain scale 4-6. ibuprofen 2019-06 No [id number] 600mg Take 3 [facility] 200 mg 0-20 10-21 tablets by ity of tablet 00:00: 04:59 mouth [place] 00 :00 every 6 Medical (six) Branch hours as needed (Alternate with acetaminop hen for pain). acetaminoph 2019-06 No [id number] 650mg Take 2 [facility] en 325 mg 0-20 10-21 tablets by ity of tablet 00:00: 04:59 mouth [place] 00 :00 every 6 Medical (six) Branch hours as needed for Alternate with ibuprofen for pain scale 4-6. ibuprofen 2019-06 No [id number] 600mg Take 3 [facility] 200 mg 0-20 10-21 tablets by ity of tablet 00:00: 04:59 mouth [place] 00 :00 every 6 Medical (six) Branch hours as needed (Alternate with acetaminop hen for pain). acetaminoph 2019-06 No [id number] 650mg Take 2 [facility] en 325 mg 0-20 10-21 tablets by ity of tablet 00:00: 04:59 mouth [place] 00 :00 every 6 Medical (six) Branch hours as needed for Alternate with ibuprofen for pain scale 4-6. ibuprofen 2019-06 No [id number] 600mg Take 3 [facility] 200 mg 0-20 10-21 tablets by ity of tablet 00:00: 04:59 mouth [place] 00 :00 every 6 Medical (six) Branch hours as needed (Alternate with acetaminop hen for pain). acetaminoph 2019-06- No [id number] 650mg Take 2 [facility] en 325 mg 0-20 10-21 tablets by ity of tablet 00:00: 04:59 mouth [place] 00 :00 every 6 Medical (six) Branch hours as needed for Alternate with ibuprofen for pain scale 4-6. ibuprofen 2019-06 No [id number] 600mg Take 3 [facility] 200 mg 0-20 10-21 tablets by ity of tablet 00:00: 04:59 mouth [place] 00 :00 every 6 Medical (six) Branch hours as needed (Alternate with acetaminop hen for pain). acetaminoph 2019-06- No [id number] 650mg Take 2 [facility] en 325 mg 0-20 10-21 tablets by ity of tablet 00:00: 04:59 mouth [place] 00 :00 every 6 Medical (six) Branch hours as needed for Alternate with ibuprofen for pain scale 4-6. ibuprofen 2019-06- No [id number] 600mg Take 3 [facility] 200 mg 0-20 10-21 tablets by ity of tablet 00:00: 04:59 mouth [place] 00 :00 every 6 Medical (six) Branch hours as needed (Alternate with acetaminop hen for pain). acetaminoph 2019-06- No [id number] 650mg Take 2 [facility] en 325 mg 0-20 10-21 tablets by ity of tablet 00:00: 04:59 mouth [place] 00 :00 every 6 Medical (six) Branch hours as needed for Alternate with ibuprofen for pain scale 4-6. ibuprofen 2019-06- No [id number] 600mg Take 3 [facility] 200 mg 0-20 10-21 tablets by ity of tablet 00:00: 04:59 mouth [place] 00 :00 every 6 Medical (six) Branch hours as needed (Alternate with acetaminop hen for pain). acetaminoph 2019-06- No [id number] 650mg Take 2 [facility] en 325 mg 0-20 10-21 tablets by ity of tablet 00:00: 04:59 mouth [place] 00 :00 every 6 Medical (six) Branch hours as needed for Alternate with ibuprofen for pain scale 4-6. ibuprofen 2019-06- No [id number] 600mg Take 3 [facility] 200 mg 0-20 10-21 tablets by ity of tablet 00:00: 04:59 mouth [place] 00 :00 every 6 Medical (six) Branch hours as needed (Alternate with acetaminop hen for pain). ibuprofen 2019-06- No [id number] 600mg Take 3 [facility] 200 mg 0-20 10-21 tablets by ity of tablet 00:00: 04:59 mouth [place] 00 :00 every 6 Medical (six) Branch hours as needed (Alternate with acetaminop hen for pain). ibuprofen 2019-06- No [id number] 600mg Take 3 [facility] 200 mg 0-20 10-21 tablets by ity of tablet 00:00: 04:59 mouth [place] 00 :00 every 6 Medical (six) Branch hours as needed (Alternate with acetaminop hen for pain). ibuprofen 2019-06- No [id number] 600mg Take 3 [facility] 200 mg 0-20 10-21 tablets by ity of tablet 00:00: 04:59 mouth [place] 00 :00 every 6 Medical (six) Branch hours as needed (Alternate with acetaminop hen for pain). acetaminoph 2019-06 No [id number] 650mg Take 2 [facility] en 325 mg 0-20 05-30 tablets by ity of tablet 00:00: 00:00 mouth [place] 00 :00 every 6 Medical (six) Branch hours as needed for Alternate with ibuprofen for pain scale 4-6. ALPRAZolam 2019-06 Yes .25mg 0.25 mg, Un sushant (XANAX) 0-19 Oral, BID, ity of tablet 0.25 01:00: First dose [place] mg 00 on [facility] 04/12/20 Branch at 2000, Until Discontinu ed, Routine ziprasidone 2019-06- No 20mg 20 mg, Uni vers (GEODON) 0-18 10-25 Intramuscu ity of injection 18:20: 18:19 lar, [place] 20 mg 44 :44 Q6HPRN, Medical Starting Branch [place] 04/12/20 at 1320, Until [place] 04/19/20 at 1319, Routine, Agitation carBAMazepi 2019-06 Yes 200mg 200 mg, Un sushant ne 0-18 Oral, ity of (TEGRETOL) 03:00: Q12H, [place] tablet 200 00 First dose Med ical mg on [facility] Branch 04/11/20 at 2200, Until Discontinu ed, Routine methocarbam 2019-06 Yes 500mg 500 mg, Un sushant oL 0-18 Oral, QID, ity of (ROBAXIN) 01:00: First dose [place] tablet [address] [facility] Medical mg 04/11/20 Branch at 2000, [...] [place] mg 00 First dose Medical on [facility] Branch 04/11/20 at 1215, Until Discontinu ed, Routine levothyroxi 2019-06 Yes 100ug 100 mcg, U nivers ne 0-17 Oral, ity of (SYNTHROID) 17:15: QAM-0600, [place] tablet 100 00 First dose Med ical mcg on [facility] Branch 04/11/20 at 1215, Until [...] 0-17 Oral, ity of (TYLENOL) 17:04: Q6HPRN, [place] tablet 650 27 Starting Medic al mg Sat Branch 04/11/20 at 1204, Until Discontinu ed, Routine, Pain (scale 1-3) docusate 2019-06 Yes 100mg 100 mg, Unive rs (COLACE) 0-17 Oral, ity of capsule 100 14:00: DAILY, [place] mg 00 First dose Medical on [facility] Branch 04/11/20 at 0900, Until [...] dose, Fri Branch 04/10/20 at 2245, Routine
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 clonazePAM 2019-06 Yes [id number] 1mg Take 1 U nivers (KLONOPIN) 0-17 tablet by ity of 1 mg tablet 00:00: mouth 3 [place] (three) Medical times Branch daily as needed (anxiety). clonazePAM 2019-06 Yes [id number] 1mg Take 1 U nivers (KLONOPIN) 0-17 tablet by ity of 1 mg tablet 00:00: mouth 3 [place] (three) Medical times Branch daily as needed (anxiety). clonazePAM 2019- Yes [id number] 1mg Take 1 U nivers (KLONOPIN) 0-17 tablet by ity of 1 mg tablet 00:00: mouth 3 [place] (three) Medical times Branch daily as needed (anxiety). clonazePAM 2019- Yes [id number] 1mg Take 1 U nivers (KLONOPIN) 0-17 tablet by ity of 1 mg tablet 00:00: mouth 3 [place] (three) Medical times Branch daily as needed (anxiety). clonazePAM 2019- Yes [id number] 1mg Take 1 U nivers (KLONOPIN) 0-17 tablet by ity of 1 mg tablet 00:00: mouth 3 [place] (three) Medical times Branch daily as needed (anxiety). clonazePAM 2019-06 Yes [id number] 1mg Take 1 U nivers (KLONOPIN) 0-17 tablet by ity of 1 mg tablet 00:00: mouth 3 [place] (three) Medical times Branch daily as needed (anxiety). clonazePAM 2019-06 Yes [id number] 1mg Take 1 U nivers (KLONOPIN) 0-17 tablet by ity of 1 mg tablet 00:00: mouth 3 [place] (three) Medical times Branch daily as needed (anxiety). clonazePAM 2019-06 Yes [id number] 1mg Take 1 U nivers (KLONOPIN) 0-17 [...] Fri Med ical tablet 1 07/12/19 at [facility] tablet 2215, RAJANI ondansetron 2019- No [...] 07/12/19 at 1545, RAJANI HYDROcodone 2019-0 Yes [id number] 1{tbl} Take 1 Univers -acetaminop 1-17 tablet by ity of hen 5-325 00:00: mouth [place] mg tablet 00 every 6 Medical (six) Branch hours as needed for Pain (scale 1-3). HYDROcodone 2019-0 Yes [id number] 1{tbl} Take 1 [facility] -acetaminop 1-17 tablet by ity of hen 5-325 00:00: mouth [place] mg tablet 00 every 6 Medical (six) Branch hours as needed for Pain (scale 1-3). HYDROcodone 2019-0 Yes [id number] 1{tbl} Take 1 [facility] -acetaminop 1-17 tablet by ity of hen 5-325 00:00: mouth [place] mg tablet 00 every 6 Medical (six) Branch hours as needed for Pain (scale 1-3). HYDROcodone 2019-0 Yes [id number] 1{tbl} Take 1 [facility] -acetaminop 1-17 tablet by ity of hen 5-325 00:00: mouth [place] mg tablet 00 every 6 Medical (six) Branch hours as needed for Pain (scale 1-3). HYDROcodone 2019-0 Yes [id number] 1{tbl} Take 1 Univers -acetaminop 1-17 tablet by ity of hen 5-325 00:00: mouth [place] mg tablet 00 every 6 Medical (six) Branch hours as needed for Pain (scale 1-3). HYDROcodone 2020-0 Yes [id number] 1{tbl} Take 1 Univers -acetaminop 1-17 tablet by ity of hen 5-325 00:00: mouth [place] mg tablet 00 every 6 Medical (six) Branch hours as needed for Pain (scale 1-3). HYDROcodone 2019-0 Yes [id number] 1{tbl} Take 1 [facility] -acetaminop 1-17 tablet by ity of hen 5-325 00:00: mouth [place] mg tablet 00 every 6 Medical (six) Branch hours as needed for Pain (scale 1-3). HYDROcodone Yes [id number] 1{tbl} Take 1 Univers -acetaminop 1-17 tablet by ity of hen 5-325 00:00: mouth [place] mg tablet 00 every 6 Medical (six) Branch hours as needed for Pain (scale 1-3). HYDROcodone Yes [id number] 1{tbl} Take 1 [facility] -acetaminop 1-17 tablet by ity of hen 5-325 00:00: mouth [place] mg tablet 00 every 6 Medical (six) Branch hours as needed for Pain (scale 1-3). HYDROcodone Yes [id number] 1{tbl} Take 1 [facility] -acetaminop 1-17 tablet by ity of hen 5-325 00:00: mouth [place] mg tablet 00 every 6 Medical (six) Branch hours as needed for Pain (scale 1-3). HYDROcodone Yes [id number] 1{tbl} Take 1 [facility] -acetaminop 1-17 tablet by ity of hen 5-325 00:00: mouth [place] mg tablet 00 every 6 Medical (six) Branch hours as needed for Pain (scale 1-3). HYDROcodone Yes [id number] 1{tbl} Take 1 [facility] -acetaminop 1-17 tablet by ity of hen 5-325 00:00: mouth [place] mg tablet 00 every 6 Medical (six) Branch hours as needed for Pain (scale 1-3). HYDROcodone Yes [id number] 1{tbl} Take 1 [facility] -acetaminop 1-17 tablet [...] mouth ity of mg tablet 06:37: daily. [place] [address] Medical Branch omeprazole Yes 20mg Take 20 mg U nivers 20 mg 7-13 by mouth ity of capsule 06:37: daily. [place] [address] Medical Branch pravastatin Yes 20mg Take 20 mg [facility] 20 mg 7-13 by mouth ity of tablet 06:37: at [place] [address] bedtime. Medical Branch triamcinolo Yes .1% Apply 0.1 U nivers ne 7-13 % to ity of acetonide/l 06:37: area(s) 2 [place] .s.[place]. 32 (two) Medical (ARISTOCORT times Branch A TOPICAL) daily. levothyroxi 0 Yes 100ug Take 100 U nivers ne 100 mcg 7-13 mcg by ity of tablet 06:37: mouth [place] [address] daily. Medical Branch meloxicam Yes 7.5mg Take 7.5 Uni vers 7.5 mg 7-13 mg by ity of tablet 06:37: mouth [place] [address] daily. Medical Branch metoprolol Yes 25mg Take 25 mg U nivers tartrate 25 7-13 by mouth ity of mg tablet 06:37: daily. [place] [address] Medical Branch omeprazole Yes 20mg Take 20 mg U nivers 20 mg 7-13 by mouth ity of capsule 06:37: daily. [place] [address] Medical Branch pravastatin Yes 20mg Take 20 mg Univers 20 mg 7-13 by mouth ity of tablet 06:37: at [place] [address] bedtime. Medical Branch triamcinolo Yes .1% Apply [...] mouth ity of mg tablet 06:37: daily. [place] [address] Medical Branch omeprazole 0 Yes 20mg Take 20 mg U nivers 20 mg 7-13 by mouth ity of capsule 06:37: daily. [place] [address] Medical Branch pravastatin Yes 20mg Take 20 mg [facility] 20 mg 7-13 by mouth ity of tablet 06:37: at [place] [address] bedtime. Medical Branch triamcinolo Yes .1% Apply 0.1 U nivers ne 7-13 % to ity of acetonide/l 06:37: area(s) 2 [place] .s.b. 32 (two) Medical (ARISTOCORT times Branch A TOPICAL) daily. levothyroxi Yes 100ug Take 100 U nivers ne 100 mcg 7-13 mcg by ity of tablet 06:37: mouth [place] [address] daily. Medical Branch meloxicam Yes 7.5mg Take 7.5 Uni vers 7.5 mg 7-13 mg by ity of tablet 06:37: mouth [place] [address] daily. Medical Branch metoprolol Yes 25mg Take 25 mg U nivers tartrate 25 7-13 by mouth ity of mg tablet 06:37: daily. [place] [address] Medical Branch omeprazole Yes 20mg Take 20 mg U nivers 20 mg 7-13 by mouth ity of capsule 06:37: daily. [place] [address] Medical Branch pravastatin Yes 20mg Take 20 mg [facility] 20 mg 7-13 by mouth ity of tablet 06:37: at [place] [address] bedtime. Medical Branch triamcinolo Yes .1% Apply [...] mg by ity of tablet 06:37: mouth [place] [address] daily. Medical Branch metoprolol 2019-0 Yes 25mg Take 25 mg U nivers tartrate 25 7-13 by mouth ity of mg tablet 06:37: daily. [place] [address] Medical Branch omeprazole 2019-0 Yes 20mg Take 20 mg U nivers 20 mg 7-13 by mouth ity of capsule 06:37: daily. [place] [address] Medical Branch pravastatin 2019-0 Yes 20mg Take 20 mg Univers 20 mg 7-13 by mouth ity of tablet 06:37: at [place] [address] bedtime. Medical Branch triamcinolo Yes .1% Apply 0.1 U nivers ne 7-13 % to ity of acetonide/l 06:37: area(s) 2 [place] .s.b. 32 (two) Medical (ARISTOCORT times Branch A TOPICAL) daily. levothyroxi 2019-0 Yes 100ug Take 100 U nivers ne 100 mcg 7-13 mcg by ity of tablet 06:37: mouth [place] [address] daily. Medical Branch meloxicam 2019-0 Yes 7.5mg Take 7.5 Uni vers 7.5 mg 7-13 mg by ity of tablet 06:37: mouth [place] [address] daily. Medical Branch metoprolol 0 Yes 25mg Take 25 mg U nivers tartrate 25 7-13 by mouth ity of mg tablet 06:37: daily. [place] [address] Medical Branch omeprazole 2019-0 Yes 20mg Take 20 mg U nivers 20 mg 7-13 by mouth ity of capsule 06:37: daily. [place] [address] Medical Branch pravastatin 2019-0 Yes 20mg Take 20 mg [facility] 20 mg 7-13 by mouth ity of tablet 06:37: at [place] [address] bedtime. Medical Branch triamcinolo Yes .1% Apply [...] by ity of capsule 06:27: mouth 2 [place] 56 (two) Medical times Branch daily. gabapentin 2019-0 Yes 300mg Take 300 Un sushant 300 mg 7-13 mg by ity of capsule 06:27: mouth 2 [place] 56 (two) Medical times Branch daily. gabapentin 2019-0 Yes 300mg Take 300 Un [place]ant 300 mg 7-13 mg by ity of capsule 06:27: mouth 2 [place] 56 (two) Medical times Branch daily. gabapentin 2019-0 Yes 300mg Take 300 Un sushant 300 mg 7-13 mg by ity of capsule 06:27: mouth 2 [place] 56 (two) Medical times Branch daily. gabapentin 2019-0 Yes 300mg Take 300 Un sushant 300 mg 7-13 mg by ity of capsule 06:27: mouth 2 [place] 56 (two) Medical times Branch daily. Vital Signs Vital Name Observation Time Observation Value Comments Source Heart rate 2021-09-22 03:30:00 87 /min [facility] Respiratory rate 2021-09-22 03:30:00 20 /min [facility] Oxygen saturation in 2021-09-22 03:30:00 100 /min [facility] Arterial blood by [facility] Pulse oximetry Branch Systolic blood 2021-09-22 03:00:00 148 mm[Hg] [facility] 2021-09-22 03:00:00 86 mm[Hg] Unive [facility] Body temperature 2021-09-22 01:12:00 36.67 Yamila [facility] Body height 2021-09-22 01:12:00 167.6 cm [facility] Body weight 2021-09-22 01:12:00 72.576 kg [facility] BMI 2021-09-22 01:12:00 25.82 kg/m2 [facility] Systolic blood 2021-03-25 15:30:00 153 mm[Hg] Univer sity [facility] Diastolic blood 2021-03-25 15:30:00 96 mm[Hg] [facility] 2021-03-25 15:30:00 100 /min [facility] Respiratory rate 2021-03-25 15:30:00 20 /min [facility] Oxygen saturation in 2021-03-25 15:30:00 97 /min [facility] Arterial blood by [facility] Pulse oximetry Branch Body temperature 2021-03-25 08:55:00 [...] 2020-11-23 17:24:00 91 /min [facility] Respiratory rate 2020-11-23 17:24:00 18 /min [facility] Oxygen saturation in 2020-11-23 17:24:00 97 /min [facility] Arterial blood by [facility] Pulse oximetry Branch Body temperature 2020-11-23 12:24:00 [...] 2020-11-23 17:24:00 91 /min [facility] Respiratory rate 2020-11-23 17:24:00 18 /min [facility] Oxygen saturation in 2020-11-23 17:24:00 97 /min [facility] Arterial blood by [facility] Pulse oximetry Branch Body temperature 2020-11-23 12:24:00 [...] /min [facility] Arterial blood by [place] [employer] [facility] Pulse oximetry Branch Body weight 2020-10-22 [...] /min [facility] Arter[facility] blood by [place] [employer] [facility] Pulse oximetry Branch Body weight 2020-10-22 [...] /min [facility] blood by [place] [employer] [facility] Pulse oximetry Branch Systolic blood 2020-10-20 [...] /min [facility]terial blood by [place] [employer] [facility] Pulse oximetry Branch Systolic blood 2020-10-15 [...] /min [facility] Arterial blood by [place] [employer] [facility] Pulse oximetry Branch Body weight 2020-10-15 [...] 2020-10-15 20:07:00 17 /min [facility] Oxygen saturation in 2020-10-15 20:07:00 96 /min [facility] Arterial blood by [place] [employer] [facility] Pulse oximetry Branch Body weight 2020-10-15 [...] /min [facility] Arterial blood by [place] [employer] [facility] Pulse oximetry Branch Body temperature 2020-10-13 [...] 100 /min [facility] Arterial blood by [facility] steve Pulse oximetry Branch Body temperature [...] 100 /min [facility] Arterial blood by [facility] Pulse oximetry Branch Body temperature 2020-09-17 02:45:00 [...] /min [facility] Arterial blood by [place] [employer] [facility] Pulse oximetry Branch Body temperature 2020-09-17 02:45:00 37.17 Yamila [facility] Body height 2020-09-17 02:45:00 167.6 cm [facility] Body weight 2020-09-17 02:45:00 65.772 kg [facility] BMI 2020-09-17 02:45:00 23.40 kg/m2 [facility] Systolic blood 2020-09-06 11:02:00 146 mm[Hg] [facility] Diastolic blood 2020-09-06 11:02:00 93 mm[Hg] Unive [facility] Heart rate 2020-09-06 11:02:00 97 /min [facility] Respiratory rate 2020-09-06 11:02:00 21 /min [facility] Oxygen saturation in 2020-09-06 11:02:00 99 /min [facility] Arterial blood by [place] [employer] [facility] Pulse oximetry Branch Body temperature 2020-09-06 10:31:00 36.17 Yamila [facility] Body height 2020-09-06 09:39:00 167.6 cm [facility] Body weight 2020-09-06 09:39:00 68.04 kg [facility] BMI 2020-09-06 09:39:00 24.21 kg/m2 [facility] Systolic blood 2020-09-06 11:02:00 146 mm[Hg] [facility] Diastolic blood 2020-09-06 11:02:00 93 mm[Hg] Unive [facility] Heart rate 2020-09-06 11:02:00 97 /min [facility] Respiratory rate 2020-09-06 11:02:00 21 /min [facility] Oxygen saturation in 2020-09-06 11:02:00 99 /min [facility] Arterial blood by [place] [employer] [facility] Pulse oximetry Branch Body temperature 2020-09-06 [...] /min [facility] Arterial blood by [place] [employer] Pulse oximetry Branch Body weight 2020-09-01 23:02:00 [...] 98 /min [facility] Arterial blood by [employer] steve Pulse oximetry Branch Body weight 2020-09-01 [...] 99 /min [facility] Arterial blood by [facility] Pulse oximetry Branch Body weight 2020-04-11 11:56:00 [...] 100 /min [facility] Arterial blood by [facility] Pulse oximetry Branch Body temperature 2020-04-11 04:03:00 37.17 Yamila [facility] Body weight 2020-04-11 04:03:00 63.504 kg [facility] BMI 2020-04-11 04:03:00 22.60 kg/m2 [facility] Systolic blood 2020-04-11 02:59:52 126 mm[Hg] [facility] Diastolic blood 2020-04-11 02:59:52 94 mm[Hg] Unive [facility] Heart rate 2020-04-11 02:59:52 104 /min [facility] Body temperature 2020-04-11 02:59:52 36.56 Yamila [facility] Respiratory rate 2020-04-11 02:59:52 19 /min [facility] Oxygen saturation in 2020-04-11 02:59:52 98 /min [facility] Arterial blood by [place] [employer] Pulse oximetry Branch Body weight 2020-04-11 01:37:00 63.504 kg [facility] BMI 2020-04-11 01:37:00 22.60 kg/m2 [facility] Systolic blood 2020-04-10 04:53:11 150 mm[Hg] [facility] Diastolic blood 2020-04-10 04:53:11 101 mm[Hg] Unive [facility] Heart rate 2020-04-10 04:53:11 121 /min [facility] Respiratory rate 2020-04-10 04:53:11 16 /min [facility] Oxygen saturation in 2020-04-10 04:53:11 99 /min [facility] Arterial blood by [facility] Pulse oximetry Branch Body temperature 2020-04-10 04:00:00 36.44 Yamila [facility] Body weight 2020-04-10 04:00:00 68.04 kg [facility] BMI 2020-04-10 04:00:00 24.21 kg/m2 [facility] Systolic blood 2020-02-25 18:30:00 164 mm[Hg] [facility] Diastolic blood 2020-02-25 18:30:00 112 mm[Hg] [facility]ive [facility] Heart rate 2020-02-25 18:30:00 107 /min [facility] Respiratory rate 2020-02-25 18:30:00 23 /min [facility] Oxygen saturation in 2020-02-25 18:30:00 98 /min [facility] Arterial blood by [facility] Pulse oximetry Branch Body temperature 2020-02-25 18:20:00 36.89 Yamila [facility] Body height 2020-02-25 18:20:00 167.6 cm [facility] Body weight 2020-02-25 18:20:00 68.04 kg [facility] BMI 2020-02-25 18:20:00 24.21 kg/m2 [facility] Systolic blood 2019-07-13 03:12:00 125 mm[Hg] Univer sity of [facility] Diastolic blood 2019-07-13 03:12:00 81 mm[Hg] Unive rsity of pressure [facility] Heart rate 2019-07-13 03:12:00 75 /min [facility] Body temperature 2019-07-13 03:12:00 36.72 Yamila [facility] Respiratory rate 2019-07-13 03:12:00 18 /min [facility] Oxygen saturation in 2019-07-13 03:12:00 99 /min [facility] Arterial blood by [facility] Pulse oximetry [place] Body weight 2019-07-12 21:01:00 72.576 kg [facility] BMI 2019-07-12 21:01:00 25.82 kg/m2 [facility] Procedures Procedure Date / Time Performing Clinician Source Performed XR CHEST 1 VW 2021-09-22 01:58:50 Georgia Estrada [facility] MAGNESIUM 2021-09-22 01:43:00 Georgia Estrada [facility] TROPONIN I 2021-09-22 01:43:00 Georgia Estrada [facility] COMP. METABOLIC PANEL 2021-09-22 01:43:00 Georgia Estrada [facility] ([id number]) [facility] POCT TEST 2021-09-22 01:43:00 Georgia Estrada [facility] N-TERMINAL PRO-BNP 2021-09-22 01:43:00 Georgia Estrada [facility] CBC WITH DIFF 2021-09-22 01:42:00 Georgia Estrada [facility] URINALYSIS 2021-09-22 01:42:00 Georgia Estrada [facility] NOTICE OF PRIVACY 2021-09-22 01:07:45 Doctor Unassigned, No [facility] PRACTICES Name [facility] CONSENT/REFUSAL FOR 2021-09-22 01:06:43 [facility]AT[facility] Name Medical Branch CT CHEST PULMONARY 2021-03-25 11:45:06 Arnold Coughlin [facility] ANGIOGRAM Medical Branch TROPONIN I 2021-03-25 11:31:00 Arnold Coughlin [facility] D-DIMER 2021-03-25 10:22:00 Arnold Coughlin [facility] LIPASE 2021-03-25 09:35:00 Arnold Coughlin [facility] TROPONIN I 2021-03-25 09:35:00 Arnold Coughlin [facility] COMP. METABOLIC PANEL 2021-03-25 09:35:00 Arnold Coughlin [facility] ([id number]) Medical Branch CBC WITH DIFF 2021-03-25 09:35:00 Arnold Coughlin [facility] HB ECG ROUTINE & RHYTHM 2021-03-25 08:52:04 Arnold Coughlin [facility] ACTIVATED PARTIAL 2020-11-23 10:36:00 Monique [facility] MAGNESIUM 2020-11-23 05:05:00 [facility] BASIC METABOLIC PANEL 2020-11-23 05:05:00 Monique [facility] (NA, K, CL, CO2, Medical Branch GLUCOSE, BUN, CREATININE, CA) CBC WITH DIFF 2020-11-23 05:05:00 [facility] ACTIVATED PARTIAL 2020-11-23 05:05:00 [facility] ANGIOGRAM CHEST 2020-11-22 20:21:07 [facility] POCT TEST 2020-11-22 19:43:00 Rosmery Mai [facility] TROPONIN I 2020-11-22 19:38:00 [facility] FREE T4 2020-11-22 19:38:00 [facility] THYROID STIMULATING 2020-11-22 19:38:00 [facility] HORMONE [facility] LIPID PANEL 2020-11-22 19:38:00 [facility] ([id number])(TOTAL Medical Branch CHOLESTEROL, TRIGLYCERIDES, HDL) COVID-19 (ID NOW RAPID 2020-11-22 19:18:00 Carmen Lott [facility] TESTING) Medical [place] TROPONIN I 2020-11-22 14:45:00 Sergei SadiAnkit [facility] XR CHEST 1 VW 2020-11-22 12:41:09 Miguelito Salter [facility] URINE DRUG (IMMUNOASSAY) 2020-11-22 11:53:00 Miguelito Salter [facility] SCREEN URINALYSIS 2020-11-22 11:53:00 Miguelito Salter [facility] CK (CREATINE KINASE) + 2020-11-22 11:52:00 Miguelito Salter [facility] Branch LIPASE 2020-11-22 11:52:00 Miguelito Salter [facility] TROPONIN I 2020-11-22 11:52:00 Miguelito Salter [facility] COMP. METABOLIC PANEL 2020-11-22 11:52:00 Miguelito Salter [facility] ([id number]) Medical Branch ETHANOL 2020-11-22 11:52:00 Miguelito Salter [facility] SERUM DRUG (IMMUNOASSAY) 2020-11-22 11:52:00 Miguelito Salter [facility] SCREEN CBC WITH DIFF 2020-11-22 11:52:00 Miguelito Salter [facility] GLYCOSYLATED HEMOGLOBIN 2020-11-22 11:52:00 [facility] (A1C) [facility] D-DIMER 2020-11-22 11:52:00 Miguelito Salter [facility] POCT TEST 2020-10-22 10:12:00 Chaka Steinberg [facility] URINE DRUG (IMMUNOASSAY) 2020-10-22 10:10:00 Chaka Steinberg [facility] SCREEN URINALYSIS 2020-10-22 10:10:00 Chaka Steinberg [facility] TROPONIN I 2020-10-22 09:34:00 Chaka Steinberg [facility] CT ABDOMEN PELVIS W 2020-10-22 08:02:55 Chaka Steinberg [facility] CONTRAST Medical Branch XR CHEST 1 VW 2020-10-22 07:40:59 Chaka Steinberg [facility] COVID-19 (ID NOW RAPID 2020-10-22 07:38:00 Chaka Steinberg [facility] TESTING) Medical Branch LIPASE 2020-10-22 07:37:00 Chaka Steinberg [facility] TROPONIN I 2020-10-22 07:37:00 Cece Steinbergian Robin [facility] HEPATIC FUNCTION PANEL 2020-10-22 07:37:00 Chaka Steinberg [facility] ([id number]) (ALB,T.PRO,BILI Medical Branch T,BU/BC,ALT,AST,ALK PHOS) BASIC METABOLIC PANEL 2020-10-22 07:37:00 Chaka Steinberg [facility] (NA, K, CL, CO2, Medical Branch GLUCOSE, BUN, CREATININE, CA) ETHANOL 2020-10-22 07:37:00 Chaka Steinberg [facility] CBC WITH DIFF 2020-10-22 07:37:00 Cece Steinbergian Robin [facility] CREATINE KINASE 2020-10-15 14:58:00 Sergei [facility] LIPASE 2020-10-15 14:58:00 Sergei [facility] TEST, SERUM 2020-10-15 14:58:00 [facility] TROPONIN I 2020-10-15 14:58:00 Sergei [facility] HEPATIC FUNCTION PANEL 2020-10-15 14:58:00 Sergei, [facility] ([id number]) (ALB,T.PRO,BILI Medical Branch T,BU/BC,ALT,AST,ALK PHOS) BASIC METABOLIC PANEL 2020-10-15 14:58:00 Sergei [facility] (NA, K, CL, CO2, Medical Branch GLUCOSE, BUN, CREATININE, CA) N-TERMINAL PRO-BNP 2020-10-15 14:58:[address] [facility] XR CHEST 2 VW 2020-10-15 13:47:20 Sergei [facility] CT HEAD WO CONTRAST 2020-10-15 13:37:33 Sergei [facility] CREATINE KINASE 2020-10-15 13:27:00 Sergei [facility] LIPASE 2020-10-15 13:27:00 Sergei [facility] TROPONIN I 2020-10-15 13:27:00 Sergei [facility] N-TERMINAL PRO-BNP 2020-10-15 13:27:[address] [facility] POCT TEST 2020-10-13 11:13:00 Gage Torres [facility] COMP. METABOLIC PANEL 2020-10-13 11:06:00 Gage Torres [facility] ([id number]) [facility] EXTRA TUBE ORANGE 2020-10-13 11:06:00 Gage Torres [facility] EXTRA TUBE LT. GREEN 2020-10-13 11:06:00 Gage Torres [facility] URINE DRUG (IMMUNOASSAY) 2020-10-13 11:01:00 Gage Torres [facility] SCREEN URINALYSIS 2020-10-13 11:01:00 Gage Torres [facility] CBC WITH DIFF 2020-10-13 10:41:00 Gage Torres [facility] XR CHEST 1 VW 2020-10-13 10:40:00 Gage Torres [facility] PROTHROMBIN TIME / INR 2020-10-13 10:26:00 Gage Torres [facility] D-DIMER 2020-10-13 10:26:00 Gage Torres [facility] ACTIVATED PARTIAL 2020-10-13 10:26:00 Gage Torres [facility] THRMPLAS CHER [facility] TROPONIN I 2020-10-13 10:09:00 Gage Torres [facility] THYROID STIMULATING 2020-10-13 10:09:00 Gage Torres [facility] HORMONE [facility] ETHANOL 2020-10-13 10:09:00 Gage Torres [facility] EXTRA TUBE ORANGE 2020-10-13 10:09:00 Gage Torres [facility] EXTRA TUBE LT. GREEN 2020-10-13 10:09:00 Gage Torres [facility] LIPASE 2020-10-13 10:09:00 Gage Torres [facility] COVID-19 (ID NOW RAPID 2020-10-13 10:06:00 Gage Torres [facility] TESTING) Medical Branch LIPASE 2020-09-17 03:02:00 [facility] TEST, SERUM 2020-09-17 03:02:00 [facility] 2020-09-17 03:02:00 William, [facility] ([id number]) (ALB,T.PRO,BILI [facility] T,BU/BC,ALT,AST,ALK PHOS) BASIC METABOLIC PANEL 2020-09-17 03:02:00 William, [facility] (NA, K, CL, CO2, Medical Branch GLUCOSE, BUN, CREATININE, CA) CBC WITH DIFF 2020-09-17 03:02:[facility] PELVIS W 2020-09-06 11:31:59 Arnold Coughlin [facility] CONTRAST [facility] XR CHEST 1 VW 2020-09-06 10:03:21 Arnold Coughlin [facility] CBC WITH DIFF 2020-09-06 09:58:00 Arnold Coughlin [facility] LIPASE 2020-09-06 09:57:00 Arnold Coughlin [facility] TROPONIN I 2020-09-06 09:57:00 Arnold Coughlin [facility] COMP. METABOLIC PANEL 2020-09-06 09:57:00 Arnold Coughlin [facility] ([id number]) Medical Branch N-TERMINAL PRO-BNP 2020-09-06 09:57:00 Arnold Coughlin [facility] D-DIMER 2020-09-02 02:24:00 Ana Sommers [facility] COVID-19 (ID NOW RAPID 2020-09-02 00:10:00 Ana Sommers [facility] TESTING) Medical Branch LIPASE 2020-09-02 00:07:00 Ana Sommers [facility] TROPONIN I 2020-09-02 00:07:00 Ana Sommers [facility] THYROID STIMULATING 2020-09-02 00:07:00 Ana Sommers [facility] HORMONE [facility] HEPATIC FUNCTION PANEL 2020-09-02 00:07:00 Ana Sommers [facility] ([id number]) (ALB,T.PRO,BILI [facility] T,BU/BC,ALT,AST,ALK PHOS) BASIC METABOLIC PANEL 2020-09-02 00:07:00 Ana Sommers [facility] (NA, K, CL, CO2, Medical Branch GLUCOSE, BUN, CREATININE, CA) CBC WITH DIFF 2020-09-02 00:07:00 Ana Sommers [facility] N-TERMINAL PRO-BNP 2020-09-02 00:07:00 Ana Sommers [facility] XR CHEST 1 VW 2020-09-02 00:02:14 Ana Sommers [facility] NOTICE OF PRIVACY 2020-09-01 22:34:26 Doctor Unassigned, No [facility] PRACTICES Name Medical Branch CONSENT/REFUSAL FOR 2020-09-01 22:34:08 Doctor Unassigned, No [facility] DIAGNOSIS AND TREATMENT Name Medical Branch BASIC METABOLIC PANEL 2020-04-12 10:18:00 Buddy Montes [facility] (NA, K, CL, CO2, Medical Branch GLUCOSE, BUN, CREATININE, CA) CBC WITH DIFF 2020-04-12 10:18:00 Buddy Montes [facility] XR FOREARM 2 VW LEFT 2020-04-11 17:54:00 Jennifer [facility] XR HAND 3+ VW LEFT 2020-04-11 17:54:00 Jennifer [facility] y [facility] XR WRIST 3+ VW LEFT 2020-04-11 17:54:00 Jennifer [facility] XR ANKLE 3+ VW LEFT 2020-04-11 12:47:35 Clay Garay [facility] XR FOOT 3+ VW LEFT 2020-04-11 12:47:35 Clay Garay [facility] XR TIBIA FIBULA 2 VW 2020-04-11 12:47:35 Clay Garay [facility] CT TRAUMA HEAD WO 2020-04-11 12:41:26 Clay Garay [facility] CONTRAST [facility] CT TRAUMA THORAX W 2020-04-11 12:41:26 Clay Garay [facility] CT TRAUMA CERVICAL SPINE 2020-04-11 12:41:26 Tanisha [facility] CONTRAST Medical Branch CT TRAUMA THORACIC SPINE 2020-04-11 12:41:26 Tanisha [facility] CONTRAST Medical [place] CT TRAUMA ABDOMEN PELVIS 2020-04-11 12:41:26 Tanisha [facility] W CONTRAST Medical Branch CT TRAUMA LUMBAR SPINE 2020-04-11 12:41:26 Clay Garay [facility] CONTRAST [facility] HB ABO GROUPING 2020-04-11 12:20:00 Sanjay [facility] BASIC METABOLIC PANEL 2020-04-11 12:17:00 John Grace [facility] (NA, K, CL, CO2, [facility] GLUCOSE, BUN, CREATININE, CA) CBC WITHOUT DIFF 2020-04-11 12:17:00 Sanjay [facility] PROTHROMBIN TIME / INR 2020-04-11 12:17:00 Sanjay [facility] ACTIVATED PARTIAL 2020-04-11 12:17:00 Sanjay [facility] THRMPLAS CHER [facility] EKG-12 LEAD 2020-04-11 04:23:07 Gage Torres [facility] TROPONIN I 2020-04-11 01:53:00 Vamshi [facility] EKG-12 LEAD 2020-04-11 [facility]:46[facility] - [facility] SCREEN 2020-04-10 05:19:00 Singer [facility] TRIAGE [facility] XR CHEST 1 VW 2020-04-10 04:26:18 Singer [facility] COVID-19 (ID NOW RAPID 2020-04-10 04:15:00 Singer Wiley [facility] TESTING) Medical Branch D-DIMER 2020-04-10 04:14:00 Singer [facility] LIPASE 2020-04-10 04:11:00 Singer [facility] MAGNESIUM 2020-04-10 04:11:00 [facility] TROPONIN I 2020-04-10 04:11:00 Singer [facility] COMP. METABOLIC PANEL 2020-04-10 04:11:00 Wiley Gay [facility] ([id number]) [facility] CBC WITH DIFF 2020-04-10 04:11:00 Singer [facility] N-TERMINAL PRO-BNP 2020-04-10 04:11:00 Singer Wiley [facility] EKG-12 LEAD 2020-04-10 03:55:43 Singer [facility] NOTICE OF PRIVACY 2020-04-10 03:51:52 Doctor Unassigned, No [facility] PRACTICES Name Medical Branch CONSENT/REFUSAL FOR 2020-04-10 03:51:01 [facility] TREATMENT Name Medical Branch COMP. METABOLIC PANEL 2020-02-25 18:39:00 Estrada, [facility] ([id number]) [facility] CBC WITH DIFF 2020-02-25 18:39:00 Georgia Estrada [facility] EKG-12 LEAD 2020-02-25 18:27:17 Estrada [place] Ortega [facility] CT ABDOMEN PELVIS W 2019-07-13 00:47:46 Diego Shelby B [facility] POCT TEST 2019-07-13 00:29:00 Lucia Diego B [facility] LIPASE 2019-07-12 23:07:00 Diego Shelby B [facility] COMP. METABOLIC PANEL 2019-07-12 23:07:00 Diego Shelby B Unive [facility] ([id number]) [facility] CBC WITH DIFFERENTIAL 2019-07-12 23:07:00 Lucia Diego B Unive [facility] URINALYSIS 2019-07-12 23:07:00 Diego Shelby B [facility] XR CHEST 1 VW 2019-03-06 16:21:04 Andressa Christianson [facility] Encounters Start End Encounter Admission Attending Care Care Encounter Source Date/Time Date/Time Type Type Clinicians Facility Department ID 2021 Outpatient CHRISTUS AVANI [id number] [facility]STU 20:48:43 -[id number] [facility] 2021 Outpatient CHRISTUS CHRISTUS [id number] [facility]RISTU 20:48:43 [id number] [facility] 2021-09-21 2021-09-21 Emergency Rena Georgia Ortega [facility] [id number] Univers 20:28:00 22:36:00 [place] [id number] [facility] [id number] [facility] [id number] [facility] 084 Branch 2021-09-21 2021-09-21 Emergency X Villa VAZQUEZ [facility] ERT [id number] Univers 20:28:00 [facility]:36[facility] 2021-03-25 2021-03-25 Emergency [facility] [id number] Univers 03:49:00 11:27:00 Arnold Huynh [id number] ity 17 [place] [address] [place] [address] [phone] [facility] 084 Branch 2021-03-25 2021-03-25 Emergency X ELIDA [facility] ERT [id number] Univers 03:49:00 03:49:00 WAKILI ity of [facility] 2020-12-01 2020-12-01 Letter Melanie Kolb 1.2.840.114 [id number] 00:00:00 00:00:00 (Out) Adaleva Julian 350.1.13.10 [place] [address].7.2.68 [id number] 09 2020-12-01 2020-12-01 Letter Melanie Kolb 1.2.840.114 [id number] Univers 00:00:00 00:00:00 (Out) Adal Julian 350.1.13.10 it y of [facility] 4.2.7.2.[address] [place] [address] [id number] [place] 854400 Branch 2020-11-22 2020-11-23 [facility] 1.2.840.11 4 [id number] 06:16:00 14:46:00 Encounter SergeiSadiAnkit Julain 350.1.13.10 [place] [address].2.[facility] [id number] [facility] 2020-11-22 2020-11-23 [facility] 1.2.840.11 4 [id number] Univers 06:16:00 14:46:00 Encounter Sadi MaiCindyChris Eliel 350.1.13.10 ity [place] [address] [place] [address] [phone] [place] 854400 Branch 2020-11-22 2020-11-23 Outpatient X [facility] [id number] Univers 06:16:00 14:46:00 ADAL ity [facility] 2020-10-22 2020-10-22 Emergency Chaka Steinberg TRAUMA 1.2.840.114 [id number] 02:04:00 07:32:00 W CENTER 350.1.13.10 4.2.7.2.686 [id number] 014 2020-10-22 2020-10-22 Emergency Chaka Steinberg TRAUMA 1.2.840.114 [id number] Univers 02:04:00 07:32:00 W CENTER 350.1.13.10 [phone] [address] 2020-10-22 2020-10-22 Emergency X CHAKA STEINBERG [facility] ERT [id number] Univers 02:04:00 07:32:00 ity of [facility] 2020-10-19 2020-10-20 Emergency TRAUMA 1.2.121.537 [id number] 0214 23:59:00 00:57:00 CENTER 350.1.13.10 4.2.7.2.686 [id number] 014 2020-10-19 2020-10-20 Emergency TRAUMA 1.2.239.144 [id number] 0214 Univers 23:59:00 00:57:00 CENTER 350.1.13.10 [place] [id number] [address] 2020-10-19 2020-10-20 Emergency X UNKNOWN, [facility] ERT [id number] Univers 23:59:00 00:57:00 ATTENDING ity of [facility] 2020-10-15 2020-10-15 Emergency Sergei, TRAUMA 1.2.438.290 [id number] 0004 07:37:00 15:30:00 [facility] CENTER 350.1.13.10 4.2.7.2.686 [id number] 014 2020-10-15 2020-10-15 Emergency Sergei, TRAUMA 1.2.485.610 0930 0004 Univers 07:37:00 15:30:00 [facility] CENTER 350.1.13.10 [place] [id number] [address] 2020-10-15 2020-10-15 Emergency X [facility] ERT [id number] Univers 07:28:00 07:28:00 ity [facility] 2020-10-13 2020-10-13 Emergency Melissa, Gage E TRAUMA 1.2.840 .114 [id number] 04:42:00 11:13:00 Miguelito Salter [facility] 350.1.13.10 Moises Anderson 4.2.7.2.68 [id number] [facility] 2020-10-13 2020-10-13 Emergency Melissa, Gage E TRAUMA 1.2.840 .114 [id number] Univers 04:42:00 11:13:00 Miguelito Salter [facility] 350.1.13.10 ity Moises Anderson 4.2.7.2.686 [place] [id number] [address] 2020-10-13 2020-10-13 Emergency X MELISSA, [facility] ERT [id number] Univers 04:42:00 04:42:00 GAGE canales [facility] 2020-09-16 2020-09-17 Emergency William, [facility] 1.2.576.368 [id number] 21:39:00 00:11:00 Hoang Huynh 350.1.13.10 [place] 4.2.7.2.686 [place] [id number] [facility] 2020-09-16 2020-09-17 Emergency William, [facility] 1.2.391.557 [id number] Univers 21:39:00 00:11:00 Hoang Huynh 350.1.13.10 i ty of [place] 4.2.7.2.[address] [place] [id number] 2020-09-16 2020-09-16 Emergency X WILLIAM, [facility] ERT [id number] Univers 21:39:00 21:39:00 DARRELSEVEN canales [facility] 2020-09-12 2020-09-12 Emergency X , [facility] ERT [id number] Univers 05:03:00 06:28:00 WILEY parker [facility] 2020-09-06 2020-09-06 Emergency [facility] 1.2.443.915 [id number] 04:37:00 07:13:00 Arnold Huynh 350.1.13.10 [place] 4.2.7.2.686 [place] [id number] 08 2020-09-06 2020-09-06 Emergency [facility] 1.2.220.471 [id number] Univers 04:37:00 07:13:00 [facility] María KnowlesWellington 350.1.13.10 ity of [place] 4.2.7.2.686 [facility] [id number] [facility] 084 Branch 2020-09-06 2020-09-06 Emergency X [facility] ERT [id number] Univers 04:37:00 07:13:00 [facility] ity [facility] 2020-09-01 2020-09-01 Emergency [facility] 1.2.107.186 [id number] Univers 17:06:00 21:39:00 Ana Shepherd Lino 350.1.13.10 ity of [place] 4.2.7.2.6 [facility] [id number] [facility] 0[address] 2020-09-01 2020-09-01 Emergency [facility] 1.2.882.993 0900 5645 17:06:00 21:39:00 Ana Shepherd Lino 350.1.13.10 [place] 4.2.7.2.6 [place] [id number] 08 2020-09-01 2020-09-01 Emergency X [facility] ERT [id number] Univers 16:36:00 16:36:00 ity of [facility] 2020-09-01 2020-09-01 Orders Doctor GOODWIN 1.2.840.114 [id number] Univers 00:00:00 00:00:00 Only Unassigned, ELIEL 350.1.13.10 ity of [facility] 4.2.7.2.686 [facility] [id number] [facility] 009 Branch 2020-09-01 2020-09-01 Orders Doctor GOODWIN 1.2.840.114 [id number] 00:00:00 00:00:00 Only Unassigned, ELIEL 350.1.13.10 [facility] 4.2.7.2.686 [id number] 009 2020-04-15 2020-04-15 Transition Francisco Price 1.2.840.114 [id number] Univers 00:00:00 00:00:00 of Care Rafaela Cavazosy 350.1.13.10 i ty of [place] [id number] [facility] 403 Branch 2020-04-15 2020-04-15 Transition Francisco Price 1.2.840.114 [id number] 00:00:00 00:00:00 of Care Rafaela Cavazosy 350.1.13.10 [place] 4.2.7.2.686 [id number] 403 2020-04-11 2020-04-14 [facility] Melanie Brewer 1.2.257.743 [id number] Univers 06:55:00 20:35:00 Encounter Pedrito Julian 350.1.13.10 ity of Hospital 4.2.7.2.686 Vishal as [id number] [facility] 098 Branch 2020-04-11 2020-04-11 Emergency T [facility] STR [id number] Univers 06:55:00 06:55:00 ity of [facility] 2020-04-10 2020-04-11 Emergency Melissa, TRAUMA 1.2.242.835 [id number] Univers 23:04:00 01:06:00 aGge SANDY 350.1.13.10 [place] [id number] [facility] 014 Branch 2020-04-10 2020-04-10 Emergency X MELISSA, [facility] ERT [id number] Univers 23:04:00 23:04:00 GAGE canales of [facility] 2020-04-10 2020-04-10 Emergency Vamshi, Opal TRAUMA 1.2.840. 114 [id number] Univers 20:37:00 22:02:00 Pedrito Rosado 350.1.13.10 [place] [id number] [facility] 014 Branch 2020-04-10 2020-04-10 Emergency X MIGUEL, [facility] ERT [id number] Univers 20:37:00 20:37:00 PEDRITO canales [facility] 2020-04-09 2020-04-10 Emergency [facility] 1.2.369.490 [id number] Univers 22:56:00 00:49:00 Wiley Huynh 350.1.13.10 i ty of [place] [phone] [address] 2020-04-09 2020-04-09 Emergency X [facility] ERT [id number] Univers 22:49:00 22:49:00 WILEY canales [facility] 2020-02-25 2020-02-[address] [facility] 1.2.943.379 [id number] [id number] Univers 13:23:00 14:09:00 Georgia Huynh 350.1.13.10 i ty of [place] [id number] [address] 2020-02-25 2020-02-25 Emergency X [facility] ERT [id number] Univers 13:23:00 13:23:00 GEORGIA canales [facility] 2019-07-12 2019-07-12 Emergency Unknown, Attending TRAUMA 1.2.8 40.114 [id number] Univers 15:04:04 21:14:00 Gladys Marley [facility] 350.1.13. 10 [place] [id number] [facility] 014 Branch 2019-07-12 2019-07-12 Emergency X [facility] ERT [id number] Univers 15:04:04 21:14:00 GLADYS canales [facility] 2019-03-06 2019-03-06 Hospital [facility] 1.2.840.114 [id number] Univers 11:16:49 23:59:00 Encounter Andressa Magana Ishmael [facility] 350.1.13.10 ity of [place] [id number] [facility] [address] [place] Results Test Description Test Time Test Comments Results Result Comments Source TROPONIN I 2021-09-22 02:32:27 Test Item Value Reference Range Interpretation Comme nts TROPONIN I (test code = 0.006 ng/mL See_Comment [Au tomated message] The 1163609796) system which [employer] nerated this result tra nsmitted reference range [...] biotin. Lab Interpretation Normal (test code = 95579-5) [id number] 02:29:25 Test Item Value Reference Range Interpretation Comments NT-proBNP (test code 77 pg/mL See_Comment [Autom ated = 6456934880) message] The system which generated this result transmitted reference range : <=125. The reference range was not used to interpret this result as normal/abnormal . PAULA (test code = PAULA) Biotin has been reported to cause a negative bias, interpret results relative to patient's use of biotin. Lab Interpretation Normal (test code = 18678-4) [facility] WITH [id number] 02:21:26 Test Item Value Reference Range Interpretation Comments WBC (test code = See_Comment [Automated message] The 6690-2) system which [employer] nerated this result tra nsmitted reference range : 4.30 - 11.10 10*3/?L. The reference range was not used to interpr et this result as normal/abnormal . RBC (test code = See_Comment [Automated message] The 789-8) system which [employer] nerated this result tra nsmitted reference range [...] RDW-SD (test code 45.0 fL 39.0-49.9 = 54029-8) RDW-CV (test code 13.6 % 12.0-15.5 = 788-0) PLT (test code = See_Comment [Automated message] The 777-3) system which [employer] nerated this result tra nsmitted reference range : 166 - 358 10*3/?L. Th e reference range was not used to interpr et this result as normal/abnormal . MPV (test code = 10.5 fL 9.5-12.9 44467-2) IPF % (test code 3.1 % 1.3-7.7 Platelet co unt measured = 3741678298) by fluorescenc e method. NRBC/100 WBC See_Comment [Automated mes joe] The (test code = system which [employer] nerated 6780535670) this result tra nsmitted reference range : 0.0 - 10.0 /100 WBCs. The reference range was not used to interpr et this result as normal/abnormal . NRBC x10^3 (test <0.01 See_Comment [Automated message] The code = system which [employer] nerated 5842424297) this result tra nsmitted reference range : 10*3/?L. The re ference range was not u sed to interpret this result as normal/abnormal . GRAN MAT (NEUT) % 75.4 % (test code = 770-8) IMM GRAN % (test 0.50 % code = 3730400845) LYMPH % (test 15.8 % code = 736-9) MONO % (test code 6.8 % = 5905-5) EOS % (test code 0.9 % = 713-8) BASO % (test code 0.6 % = 706-2) GRAN MAT 6.46 10*3/uL 1.88-7.09 x10^3(ANC) (test code = 9750574560) IMM GRAN x10^3 0.04 10*3/uL 0.00-0.06 (test code = 3550244110) LYMPH x10^3 (test 1.35 10*3/uL 1.32-3.29 code = 731-0) MONO x10^3 (test 0.58 10*3/uL 0.33-0.92 code = 742-7) EOS x10^3 (test 0.08 10*3/uL 0.03-0.39 code = 711-2) BASO x10^3 (test 0.05 10*3/uL 0.01-0.07 code = 704-7) [facility]30 02:21:06 Test Item Value Reference Range Interpretation Comments MAGNESIUM (test code = 2420833478) 2.0 mg/dL 1.7-2.4 Lab Interpretation (test code = Normal 96971-0) [facility] METABOLIC PANEL (50521)2021-09-22 02:20:45 Test Item Value Reference Range Interpretation Comments NA (test code = 136 mmol/L 135-145 4628736417) K (test code = 4.7 mmol/L 3.5-5.0 5477628832) CL (test code = 106 mmol/L 98-108 7548173555) CO2 TOTAL (test code = 17 mmol/L 23-31 L 1717279919) AGAP (test code = 2-16 1526131479) BUN (test code = 10 mg/dL 7-23 7622768540) GLUCOSE (test code = 99 mg/dL 70-110 7217252844) CREATININE (test code = 0.50 mg/dL 0.50-1.04 4949545275) TOTAL BILI (test code = 0.9 mg/dL 0.1-1.2 2273727877) CALCIUM (test code = 8.9 mg/dL 8.6-10.6 9553987453) T PROTEIN (test code = 8.3 g/dL 6.3-8.2 H 0621285369) ALBUMIN (test code = 4.8 g/dL 3.5-5.0 7256568896) ALK PHOS (test code = 66 U/L 34-122 1822071951) ALTv (test code = 22 U/L 5-35 1742-6) AST(SGOT) (test code = 40 U/L 13-40 5481613654) eGFR (test code = mL/min/1.73m2 7175458163) PAULA (test code = PAULA) Association of [...] tests). Lab Interpretation Abnormal (test code = 88878-3) [facility]anoPOMD [id number] 01:43:00 Test Item Value Reference Range Interpretation Comments POCT PREG (test code = 1605) negative On board controls acceptable with present C Line (test code = 3574) POCT PREG LOT # (test code = 3575) [id number] POCT PREG TEST DATE (test 2022-08-23 code = 3576) Lab Interpretation (test code = Normal 92072-3) [facility]ano[facility] [id number] 12:15:08 Test Item Value Reference Interpretation Comments Range TROPONIN I (test 0.009 ng/mL See_Comment [Automated code = 4376563292) message] The system which generated this result [...] biotin. Lab Interpretation Normal (test code = 34625-4) [facility]ano[facility]-[id number] 10:51:58 Test Item Value Reference Interpretation Comments Range D-DIMER (test code = See_Comment H [Autom ated 1190762205) message] The system which generated this result [...] diagnosis. Lab Interpretation Abnormal (test code = 91760-8) [facility] WITH [id number] 10:39:17 Test Item Value Reference Range Interpretation [...] (test code = 51.8 fL 39.0-49.9 H 14788-4) RDW-CV (test code = 15.7 % 12.0-15.5 H 788-0) PLT (test code = See_Comment [Automated 777-3) message] The sy stem which generated this result transmitted reference range : 166 - 358 10*3/ ?L. The reference r micah was not used to interpret this result as normal/abnormal . MPV (test code = 10.2 fL 9.5-12.9 78657-5) IPF % (test code = 1.9 % 1.3-7.7 Platelet count 5504015979) measured by fluorescence method. NRBC/100 WBC (test See_Comment [Automat ed code = 1436305482) message] The system which generated this result transmitted reference range : 0.0 - 10.0 /100 WBCs. The refer ence range was not u sed to interpret th is result as normal/abnormal . NRBC x10^3 (test code <0.01 See_Comment [Auto mated = 7138252218) message] The s ystem which generated this result transmitted reference range : 10*3/?L. The reference range was not used to interpret this result as normal/abnormal . GRAN MAT (NEUT) % 63.4 % (test code = 770-8) IMM GRAN % (test code 0.20 % = 7087726977) LYMPH % (test code = 24.2 % 736-9) MONO % (test code = 10.4 % 5905-5) EOS % (test code = 0.9 % 713-8) BASO % (test code = 0.9 % 706-2) GRAN MAT x10^3(ANC) 3.34 10*3/uL 1.88-7.09 (test code = 1077099585) IMM GRAN x10^3 (test <0.03 0.00-0.06 code = 2667945402) LYMPH x10^3 (test code 1.28 10*3/uL 1.32-3.29 L = 731-0) MONO x10^3 (test code 0.55 10*3/uL 0.33-0.92 = 742-7) EOS x10^3 (test code = 0.05 10*3/uL 0.03-0.39 711-2) BASO x10^3 (test code 0.05 10*3/uL 0.01-0.07 = 704-7) PLT ESTIMATE (test Normal Normal code = 9317-9) Lab Interpretation Abnormal (test code = 99145-1) [facility] [id number] 10:26:56 Test Item Value Reference Interpretation Comments Range TROPONIN I (test 0.011 ng/mL See_Comment [Automated code = 5837187787) message] The system which generated this result [...] biotin. Lab Interpretation Normal (test code = 73063-0) [facility]. METABOLIC PANEL (77005)2021-03-25 10:15:34 Test Item Value Reference Range Interpretation Comments NA (test code = 141 mmol/L 135-145 8827513001) K (test code = 3.7 mmol/L 3.5-5.0 2775697609) CL (test code = 108 mmol/L 98-108 9993260715) CO2 TOTAL (test code = 23 mmol/L 23-31 7051120304) AGAP (test code = 2-16 1881610479) BUN (test code = 6 mg/dL 7-23 L 1597520089) GLUCOSE (test code = 108 mg/dL 70-110 5412980336) CREATININE (test code = 0.65 mg/dL 0.50-1.04 9691211513) TOTAL BILI (test code = 0.4 mg/dL 0.1-1.4 3161386791) CALCIUM (test code = 8.7 mg/dL 8.6-10.6 5938423491) T PROTEIN (test code = 7.9 g/dL 6.3-8.2 5456287576) ALBUMIN (test code = 4.3 g/dL 3.5-5.0 0180551572) ALK PHOS (test code = 72 U/L 34-122 1449894273) ALTv (test code = 31 U/L 5-35 1742-6) AST(SGOT) (test code = 45 U/L 13-40 H 9801506111) eGFR (test code = mL/min/1.73m2 6819253163) PAULA (test code = PAULA) Association of [...] tests). Lab Interpretation Abnormal (test code = 68662-1) [facility]ano[facility]IPASE2021-09-30 10:15:34 Test Item Value Reference Range Interpretation Comments LIPASE (test code = 9239034321) 54 U/L 0-220 Lab Interpretation (test code = Normal 49300-8) [facility]anoaPTT (for use with Heparin Drip)2020-11-23 11:10:10 Test Item Value Reference Range Interpretation Comments APTT Patient (test code See_Comment H [Au tomated message] = 3173-2) The system [employer] generated this result transmitted ref erence range: 26 - 36 Seconds. The reference range was not used to int erpret this result as normal/abnormal . Lab Interpretation (test Abnormal code = 66576-1) [facility] Met[facility] (NA, K, CL, CO2, GLUCOSE, BUN, CREATININE, CA)2020-11-23 05:36:05 Test Item Value Reference Range Interpretation Comments NA (test code = 133 mmol/L 135-145 L 1475749633) K (test code = 3.6 mmol/L 3.5-5.0 8477360084) CL (test code = 105 mmol/L 98-108 1903308624) CO2 TOTAL (test code = 24 mmol/L 23-31 7875638856) AGAP (test code = 2-16 6552822758) BUN (test code = 11 mg/dL 7-23 1268554832) GLUCOSE (test code = 104 mg/dL 70-110 6592824699) CREATININE (test code = 0.64 mg/dL 0.50-1.04 0250472574) CALCIUM (test code = 8.4 mg/dL 8.6-10.6 L 6916447200) eGFR (test code = mL/min/1.73m2 8295935998) PAULA (test code = PAULA) Association of [...] tests). Lab Interpretation Abnormal (test code = 84097-7) [facility]anoMagnesium [id number] 05:36:05 Test Item Value Reference Range Interpretation Comments MAGNESIUM (test code = 4307922938) 2.1 mg/dL 1.7-2.4 Lab Interpretation (test code = Normal 82533-4) [facility]anoaPTT (for use with Heparin Drip)2020-11-23 05:25:43 Test Item Value Reference Range Interpretation Comments APTT Patient (test code See_Comment H [Au tomated message] = 3173-2) The system [employer] generated this result transmitted ref erence range: 26 - 36 Seconds. The reference range was not used to int erpret this result as normal/abnormal . Lab Interpretation (test Abnormal code = 30830-0) [facility] with Dpffqdeudmlu9610-15-85 05:11:43 Test Item Value Reference Range Interpretation [...] RDW-SD (test code = 43.7 fL 39.0-49.9 00953-8) RDW-CV (test code = 13.1 % 12.0-15.5 788-0) PLT (test code = See_Comment [Automated 777-3) message] The sy stem which generated this result transmitted reference range : 166 - 358 10*3/ ?L. The reference r micah was not used to interpret this result as normal/abnormal . MPV (test code = 9.2 fL 9.5-12.9 L 29378-0) NRBC/100 WBC (test See_Comment [Automat ed code = 5748036824) message] The system which generated this result transmitted reference range : 0.0 - 10.0 /100 WBCs. The refer ence range was not u sed to interpret th is result as normal/abnormal . NRBC x10^3 (test code <0.01 See_Comment [Auto mated = 9534010495) message] The s ystem which generated this result transmitted reference range : 10*3/?L. The reference range was not used to interpret this result as normal/abnormal . GRAN MAT (NEUT) % 58.2 % (test code = 770-8) IMM GRAN % (test code 0.50 % = 0814934905) LYMPH % (test code = 28.4 % 736-9) MONO % (test code = 8.9 % 5905-5) EOS % (test code = 3.3 % 713-8) BASO % (test code = 0.7 % 706-2) GRAN MAT x10^3(ANC) 3.53 10*3/uL 1.88-7.09 (test code = 7229594910) IMM GRAN x10^3 (test 0.03 10*3/uL 0.00-0.06 code = 5628902571) LYMPH x10^3 (test code 1.72 10*3/uL 1.32-3.29 = 731-0) MONO x10^3 (test code 0.54 10*3/uL 0.33-0.92 = 742-7) EOS x10^3 (test code = 0.20 10*3/uL 0.03-0.39 711-2) BASO x10^3 (test code 0.04 10*3/uL 0.01-0.07 = 704-7) Lab Interpretation Abnormal (test code = 10762-2) [facility] CHEST 1 [id number] 00:27:06 No acute cardiopulmonary abnormality. Preliminary Report [...] reviewed this study and agree with theabove report.[facility]anoTHYROID STIMULATING [id number] 22:15:04 Test Item Value Reference Range Interpretation Comments TSH (test code = See_Comment [Automated message] 5365503942) The system [employer] generated this result transmitted ref erence range: 0.45 - 4 .70 mIU/L. The refe rence range was not u sed to interpret this result as normal/abnor mal. Lab Interpretation (test Normal code = 89156-6) [facility]anoGLYCOSYLATED HEMOGLOBIN (A1C)2020-11-22 22:14:59 Test Item Value Reference Range Interpretation Comments HGB A1C (test code = 5.1 % 4.0-5.7 4548-4) PAULA (test code = PAULA) Reference RangesNormal: <5.7%Prediabetes: 5.7 - 6.4%Diabetes: > 6.5% Lab Interpretation (test Normal code = 49245-7) [facility]anoFREE [id number] 22:01:07 Test Item Value Reference Range Interpretation Comments FREE T4 (test code = See_Comment [Autom ated message] 2385789023) The system [employer] generated this result transmitted ref erence range: 0.78 - 2 .20 ng/dL:. The ref erence range was not u sed to interpret this result as normal/abnor mal. Lab Interpretation (test Normal code = 27857-3) [facility]anoLIPID PANEL (24552)(TOTAL CHOLESTEROL, TRIGLYCERIDES, HDL)2020-11-22 21:44:08 Test Item Value Reference Range Interpretation Comments CHOL (test code = 279 mg/dL 120-200 H 0029153937) HDL (test code = 85 mg/dL >50 8355062427) HDLC RATIO (test code = See_Comment [Au tomated message] 2101071527) The system [employer] generated this result transmit bhaskar reference range : <=4.5. The refe rence range was not u sed to interpret th is result as normal/abnormal . TRIG (test code = 312 mg/dL 30-170 H 4514655102) LDL CHOL (test code = 132 mg/dL See_Comment [Auto mated message] 08164-9) The system [employer] generated this result transmit bhaskar reference range : <=160. The refe rence range was not u sed to interpret th is result as normal/abnormal . VLDL (test code = 62 mg/dL 5-60 H 1561420563) Lab Interpretation (test Abnormal code = 08292-5) [facility]anoCT ANGIOGRAM [id number] 21:04:53 1. ?No acute aortic syndrome. No [...] this study and agree with theabove report. [facility] PlanoTRDEONTE [id number] 20:12:00 Test Item Value Reference Range Interpretation Comments TROPONIN I (test 0.014 ng/mL See_Comment [Automated code = 2811802691) message] The system which generated this result [...] ? Lab Interpretation Normal (test code = 15306-0) [facility] NOW RAPID TESTING)2020-11-22 19:49:57 Test Item Value Reference Range Interpretation Comments SARS-CoV-2 Rapid ID NOW Not Detected Not Detected (test code = 87652-4) PAULA (test code = PAULA) ID NOW COVID-19 Assay is an isothermal nucleic acid amplification test intended for the qualitative detection of nucleic acid from SARS-CoV-2 viral RNA in nasopharyngeal (WOOD CARVER HAND) specimens. It is used under Emergency Use [...] indicated. Lab Interpretation Normal (test code = 63557-1) [facility] [id number] 19:43:00 Test Item Value Reference Range Interpretation Comments POCT PREG (test code = 1605) negative On board controls acceptable with present C Line (test code = 3574) POCT PREG LOT # (test code = 3575) [id number] POCT PREG TEST DATE (test 05-25-2022 code = 3576) Lab Interpretation (test code = Normal 22699-6) [facility]anoTROP[facility] [id number] 15:52:28 Test Item Value Reference Range Interpretation Comments TROPONIN I (test 0.047 ng/mL See_Comment H [Automated code = 2911197333) message] The system which generated this result [...] ? Lab Interpretation Abnormal (test code = 02463-5) [facility] (IM[facility]UNOASSAY) - COMPREHENSIVE DRUG [id number] 15:24:44 Test Item Value Reference Range Interpretation Comments AMPHET (test code = Presumptive Positive Negative A 8659572385) ANN U (test code = Negative Negative 6851697889) BENZO U (test code = Negative Negative 6355612916) Cocaine Metabolite (test Negative Negative code = 0867029990) METHADONE (test code = Negative Negative 5637288901) OPIATES (test code = Negative Negative 3573310820) PCP (test code = Negative Negative 0952085933) THC (test code = Negative Negative 1223174719) PAULA (test code = PAULA) Urine Drug [...] testing). Lab Interpretation (test Abnormal code = 67205-2) [facility] (CREATINE KINASE) + [id number] 13:16:38 Test Item Value Reference Range Interpretation Comments CK (test code = 751 U/L 33-194 H 2120810475) CK-MB (test code = 6.00 ng/mL See_Comment H [Automat ed 0477392643) message] The system which generated this result transmitted reference range : <=3.50. The reference range was not used to interpret this result as normal/abnormal . CKMB INDEX (test code 0.8 % 0.0-2.5 = 6826113033) PAULA (test code = PAULA) Biotin has been reported to cause a negative bias, interpret results relative to patient's use of biotin. Lab Interpretation Abnormal (test code = 35224-2) [facility]TR[facility] [id number] 13:16:38 Test Item Value Reference Range Interpretation Comments TROPONIN I (test 0.008 ng/mL See_Comment [Automated code = 1912597457) message] The system which generated this result [...] ? Lab Interpretation Normal (test code = 02163-4) [facility] DRUG (IMMUNOASSAY) - COMPREHENSIVE DRUG [id number] 13:13:47 Test Item Value Reference Range Interpretation Comments ANN S (test code = Negative Negative 5641659164) BENZO S (test code = Negative Negative 9951035882) TRICYCLIC (test code = Negative Negative 7530332441) PAULA (test code = PAULA) Serum Drug Screen Cutoff Ranges Barbiturates ? ? - 3 mcg/mLBenzodiazepines ?- 50 ng/mLTCA ?- 300 ng/mL Test developed and characteristics determined by [facility] Laboratory Services. The results are to be used only for medical (i.e., treatment) purposes. Unconfirmed screening results must not be used for non-medical purposes (e.g., employment testing, legal testing). Lab Interpretation Normal (test code = 59121-7) [facility]anoURINALYSIS2021-[facility]-30 13:13:32 Test Item Value Reference Range Interpretation Comments APPEARANCE (test code = Clear Clear 6153963994) COLOR (test code = Colorless Yellow A 3850619811) PH (test code = 4.8-8.0 9195857126) SP GRAVITY (test code = 1.003-1.030 L 3892803962) GLU U QUAL (test code = Normal Normal 2805760657) BLOOD (test code = 1+ Negative A 0535469239) KETONES (test code = Negative Negative 1637537745) PROTEIN (test code = Negative Negative 2887-8) UROBILIN (test code = Normal Normal 9472011966) BILIRUBIN (test code = Negative Negative 1499320173) NITRITE (test code = Negative Negative 1959439640) LEUK JONATHON (test code = Negative Negative 7672126655) RBC/HPF (test code = See_Comment [Autom ated message] 4509634700) The system [employer] generated this result transmit bhaskar reference range : 0 - 3 HPF. The refe rence range was not u sed to interpret th is result as normal/abnormal . WBC/HPF (test code = <1 See_Comment [Autom ated message] 8951266642) The system [employer] generated this result transmit bhaskar reference range : 0 - 5 HPF. The refe rence range was not u sed to interpret th is result as normal/abnormal . BACTERIA (test code = Negative Negative 0417408842) AMORPHOUS (test code = Rare Rare HPF 2557075394) Lab Interpretation (test Abnormal code = 15338-4) [facility]anoD-[id number] 13:09:19 Test Item Value Reference Interpretation Comments Range D-DIMER (test code = See_Comment [Autom ated 3349672828) message] The system which generated this result [...] diagnosis. Lab Interpretation Normal (test code = 65774-9) [facility]. METABOLIC PANEL (57756)2020-11-22 13:06:21 Test Item Value Reference Range Interpretation Comments NA (test code = 139 mmol/L 135-145 3017348675) K (test code = 4.1 mmol/L 3.5-5.0 4725720546) CL (test code = 106 mmol/L 98-108 4984469645) CO2 TOTAL (test code = 20 mmol/L 23-31 L 1635553438) AGAP (test code = 2-16 4261497916) BUN (test code = 12 mg/dL 7-23 4611391439) GLUCOSE (test code = 92 mg/dL 70-110 8630894530) CREATININE (test code = 0.58 mg/dL 0.50-1.04 2197625815) TOTAL BILI (test code = 0.2 mg/dL 0.1-1.4 7509214097) CALCIUM (test code = 9.4 mg/dL 8.6-10.6 3026872859) T PROTEIN (test code = 7.6 g/dL 6.3-8.2 3759891515) ALBUMIN (test code = 4.5 g/dL 3.5-5.0 3801905365) ALK PHOS (test code = 70 U/L 34-122 4165161979) ALTv (test code = 14 U/L 5-35 2-6) AST(SGOT) (test code = 29 U/L 13-40 6357072158) eGFR (test code = mL/min/1.73m2 8097860095) PAULA (test code = PAULA) Association of [...] tests). Lab Interpretation Abnormal (test code = 18806-9) [facility]ETHANOL2021-[facility]-30 13:06:21 Test Item Value Reference Range Interpretation Comments ALCOHOL (test code = 112 mg/dL 7425817077) PAULA (test code = Toxic Greater than or PAULA) equal to 80 mg/dL. NOTE: Whole blood values are approximately 10% to 15% lower than serum and plasma. [facility]anoLIPASE2021-[facility]-30 13:06:21 Test Item Value Reference Range Interpretation Comments LIPASE (test code = 7928701629) 118 U/L 0-220 Lab Interpretation (test code = Normal 45997-6) [facility] WITH [id number] 13:00:59 Test Item Value Reference Range Interpretation Comments WBC (test code = See_Comment [Automated message] 6690-2) The system [employer] generated this result transmitted ref erence range: 4.30 - 1 1.10 10*3/?L. The re ference range was not u sed to interpret this result as normal/abnor mal. RBC (test code = See_Comment [Automated message] 789-8) The system [employer] generated this result transmitted ref erence range: [...] RDW-SD (test code 44.0 fL 39.0-49.9 = 38070-3) RDW-CV (test code 13.0 % 12.0-15.5 = 788-0) PLT (test code = See_Comment [Automated message] 777-3) The system whic h generated this result transmitted ref erence range: 166 - 35 8 10*3/?L. The re ference range was not u sed to interpret this result as normal/abnor mal. MPV (test code = 9.9 fL 9.5-12.9 20503-4) NRBC/100 WBC (test See_Comment [Automat ed message] code = 4240098295) The syste m which generated this result transmitted ref erence range: 0.0 - 10 .0 /100 WBCs. The refer ence range was not u sed to interpret this result as normal/abnor mal. NRBC x10^3 (test <0.01 See_Comment [Automated message] code = 7971534787) The syste m which generated this result transmitted ref erence range: 10*3/?L. The reference range was not used to interpr et this result as normal/abnormal . GRAN MAT (NEUT) % 57.8 % (test code = 770-8) IMM GRAN % (test 0.30 % code = 5385014789) LYMPH % (test code 31.0 % = 736-9) MONO % (test code 8.7 % = 5905-5) EOS % (test code = 1.5 % 713-8) BASO % (test code 0.7 % = 706-2) GRAN MAT 3.37 10*3/uL 1.88-7.09 x10^3(ANC) (test code = 2268369398) IMM GRAN x10^3 <0.03 0.00-0.06 (test code = 6329944085) LYMPH x10^3 (test 1.81 10*3/uL 1.32-3.29 code = 731-0) MONO x10^3 (test 0.51 10*3/uL 0.33-0.92 code = 742-7) EOS x10^3 (test 0.09 10*3/uL 0.03-0.39 code = 711-2) BASO x10^3 (test 0.04 10*3/uL 0.01-0.07 code = 704-7) [facility]DR[facility] PAN[facility] 2 [id number] 11:58:10 Test Item Value Reference Range Interpretation Comments AMPHET (test code = Negative Negative 1633214632) ANN U (test code = Negative Negative 6331123793) BENZO U (test code = Negative Negative 9821852271) Cocaine Metabolite (test Negative Negative code = 0322789943) METHADONE (test code = Negative Negative 5965843655) OPIATES (test code = Negative Negative 4821936037) PCP (test code = Negative Negative 8200713387) THC (test code = Negative Negative 2107737518) PAULA (test code = PAULA) Urine Drug [...] testing). Lab Interpretation (test Normal code = 85603-0) [facility]anoUrinalysis2021-04-29 10:57:49 Test Item Value Reference Range Interpretation Comments APPEARANCE (test code = Clear Clear 4138538337) COLOR (test code = Colorless Yellow A 8474370727) PH (test code = 4.8-8.0 1338106208) SP GRAVITY (test code = 1.003-1.030 9311053708) GLU U QUAL (test code = Normal Normal 5991503891) BLOOD (test code = 2+ Negative A 7109951394) KETONES (test code = Negative Negative 8147623407) PROTEIN (test code = Negative Negative 2887-8) UROBILIN (test code = Normal Normal 9471713148) BILIRUBIN (test code = Negative Negative 2219286347) NITRITE (test code = Negative Negative 2440759796) LEUK JONATHON (test code = Negative Negative 7614042441) RBC/HPF (test code = See_Comment H [Autom ated message] 3222562233) The system [employer] generated this result transmit bhaskar reference range : 0 - 3 HPF. The refe rence range was not u sed to interpret th is result as normal/abnormal . WBC/HPF (test code = <1 See_Comment [Autom ated message] 9466106809) The system [employer] generated this result transmit bhaskar reference range : 0 - 5 HPF. The refe rence range was not u sed to interpret th is result as normal/abnormal . BACTERIA (test code = Negative Negative 1319998523) SQ EPITH (test code = <1 See_Comment [Auto mated message] 2604882905) The system [employer] generated this result transmit bhaskar reference range : <=2 HPF. The refere nce range was not u sed to interpret th is result as normal/abnormal . ASCORBIC ACID (test code Negative = 4473409923) Lab Interpretation (test Abnormal code = 19907-5) [facility]anoJER [id number] 10:29:23 Test Item Value Reference Range Interpretation Comments TROPONIN I (test 0.005 ng/mL See_Comment [Automated code = 9285045357) message] The system which generated this result [...] ? Lab Interpretation Normal (test code = 56918-4) [facility]anoPOCT [id number] 10:12:00 Test Item Value Reference Range Interpretation Comments POCT PREG (test code = 1605) negative On board controls acceptable with C present Line (test code = 3574) POCT PREG LOT # (test code = 3575) HCG Lab Interpretation (test code = Normal 13531-1) [facility]anoTroponin [id number] 08:15:07 Test Item Value Reference Range Interpretation Comments TROPONIN I (test 0.007 ng/mL See_Comment [Automated code = 3394584135) message] The system which generated this result [...] ? Lab Interpretation Normal (test code = 32068-3) [facility]COVID[facility] (ID NOW RAPID TESTING)2020-10-22 08:08:44 Test Item Value Reference Range Interpretation Comments SARS-CoV-2 Rapid ID NOW Not Detected Not Detected (test code = 23633-9) PAULA (test code = PAULA) ID NOW COVID-19 Assay is an isothermal nucleic acid amplification test intended for the qualitative detection of nucleic acid from SARS-CoV-2 viral RNA in nasopharyngeal (WOOD CARVER HAND) specimens. It is used under Emergency Use [...] indicated. Lab Interpretation Normal (test code = 56810-0) [facility] (NA, K, CL, CO2, GLUCOSE, BUN, CREATININE, CA)2020-10-22 08:00:24 Test Item Value Reference Range Interpretation Comments NA (test code = 136 mmol/L 135-145 1331351066) K (test code = 5.1 mmol/L 3.5-5.0 H Slight 1304291173) hemolysis CL (test code = 107 mmol/L 98-108 1094920711) CO2 TOTAL (test code 22 mmol/L 23-31 L = 0873304143) AGAP (test code = 2-16 6503715525) BUN (test code = 10 mg/dL 7-23 Slight 3105480876) hemolysis GLUCOSE (test code = 107 mg/dL 70-110 8768725356) CREATININE (test code 0.56 mg/dL 0.50-1.04 = 1416977120) CALCIUM (test code = 8.6 mg/dL 8.6-10.6 6534176324) eGFR (test code = mL/min/1.73m2 6041791804) PAULA (test code = PAULA) Association of [...] tests). Lab Interpretation Abnormal (test code = 26818-2) [facility]anoHepatic Function Panel (ALB, T.PRO, BILI T, BU/BC, ALT, AST, ALK PHOS)2020-10-22 08:00:24 Test Item Value Reference Range Interpretation Comments TOTAL BILI (test code = 9095107699) 0.3 mg/dL 0.1-1.1 BILI UNCON (test code = 3702036831) 0.1 mg/dL 0.1-1.1 BILI CONJ (test code = 6647558565) 0.0 mg/dL 0.0-0.3 T PROTEIN (test code = 6973640158) 7.0 g/dL 6.3-8.2 ALBUMIN (test code = 3945233333) 3.9 g/dL 3.5-5.0 ALK PHOS (test code = 2761772755) 112 U/L 34-122 ALTv (test code = 1742-6) 292 U/L 5-35 H AST(SGOT) (test code = 4891224140) 322 U/L 13-40 H Lab Interpretation (test code = Abnormal 01382-8) [facility]anoEthanol [id number] 08:00:24 Test Item Value Reference Range Interpretation Comments ALCOHOL (test code = 67 mg/dL 2170661697) PAULA (test code = Toxic Greater than or PAULA) equal to 80 mg/dL. NOTE: Whole blood values are approximately 10% to 15% lower than serum and plasma. [facility]anoLipase [id number] 08:00:24 Test Item Value Reference Range Interpretation Comments LIPASE (test code = 2421290287) 165 U/L 0-220 Lab Interpretation (test code = Normal 18439-3) [facility]anoCBC with [id number] 07:55:00 Test Item Value Reference Range Interpretation Comments WBC (test code = See_Comment [Automated 0990-2) message] The sy stem which generated this result transmitted reference range : 4.30 - 11.10 10*3/?L. The reference range was not used to interpret this result as normal/abnormal . RBC (test code = See_Comment [Automated 169-8) message] The sy stem which generated this [...] RDW-SD (test code = 43.8 fL 39.0-49.9 68609-7) RDW-CV (test code = 13.2 % 12.0-15.5 788-0) PLT (test code = See_Comment [Automated 777-3) message] The sy stem which generated this result transmitted reference range : 166 - 358 10*3/ ?L. The reference r micah was not used to interpret this result as normal/abnormal . MPV (test code = 9.2 fL 9.5-12.9 L 75288-2) NRBC/100 WBC (test See_Comment [Automat ed code = 5122418849) message] The system which generated this result transmitted reference range : 0.0 - 10.0 /100 WBCs. The refer ence range was not u sed to interpret th is result as normal/abnormal . NRBC x10^3 (test code <0.01 See_Comment [Auto mated = 1740043488) message] The s ystem which generated this result transmitted reference range : 10*3/?L. The reference range was not used to interpret this result as normal/abnormal . GRAN MAT (NEUT) % 64.0 % (test code = 770-8) IMM GRAN % (test code 0.40 % = 3271948801) LYMPH % (test code = 24.3 % 736-9) MONO % (test code = 8.9 % 5905-5) EOS % (test code = 1.4 % 713-8) BASO % (test code = 1.0 % 706-2) GRAN MAT x10^3(ANC) 3.18 10*3/uL 1.88-7.09 (test code = 6662289229) IMM GRAN x10^3 (test <0.03 0.00-0.06 code = 3299599326) LYMPH x10^3 (test code 1.21 10*3/uL 1.32-3.29 L = 731-0) MONO x10^3 (test code 0.44 10*3/uL 0.33-0.92 = 742-7) EOS x10^3 (test code = 0.07 10*3/uL 0.03-0.39 711-2) BASO x10^3 (test code 0.05 10*3/uL 0.01-0.07 = 704-7) Lab Interpretation Abnormal (test code = 23639-2) [facility] 2 [id number] 18:12:05 No acute cardiopulmonary abnormality. Preliminary Report [...] reviewed this study and agree with theabove report.[facility]anoCREATINE [id number] 17:21:00 Test Item Value Reference Range Interpretation Comments CK (test code = 6648600358) 765 U/L 33-194 H Lab Interpretation (test code = Abnormal 24870-1) [facility]anoLipase [id number] 17:20:59 Test Item Value Reference Range Interpretation Comments LIPASE (test code = 5162394996) 135 U/L 0-220 Lab Interpretation (test code = Normal 17723-6) [facility]anoTroponin [id number] 16:25:05 Test Item Value Reference Range Interpretation Comments TROPONIN I (test 0.007 ng/mL See_Comment [Automated code = 2167195481) message] The system which generated this result [...] ? Lab Interpretation Normal (test code = 37340-2) [facility]anoN-TERMINAL [id number] 16:25:04 Test Item Value Reference Range Interpretation Comments NT-proBNP (test code 178 pg/mL See_Comment H [Autom ated = 4045078133) message] The system which generated this result transmitted reference range : <=125. The reference range was not used to interpret this result as normal/abnormal . PAULA (test code = PAULA) Biotin has been reported to cause a negative bias, interpret results relative to patient's use of biotin. Lab Interpretation Abnormal (test code = 45988-7) [facility]anoBasi Metabolic Panel (NA, K, CL, CO2, GLUCOSE, BUN, CREATININE, CA)2020-10-15 16:13:24 Test Item Value Reference Range Interpretation Comments NA (test code = 135 mmol/L 135-145 9107702680) K (test code = 4.0 mmol/L 3.5-5.0 Slight 8201935214) hemolysis CL (test code = 109 mmol/L 98-108 H 1485407914) CO2 TOTAL (test code 21 mmol/L 23-31 L = 9678339331) AGAP (test code = 2-16 8043594168) BUN (test code = 11 mg/dL 7-23 Slight 1201679073) hemolysis GLUCOSE (test code = 98 mg/dL 70-110 4105788702) CREATININE (test code 0.54 mg/dL 0.50-1.04 = 3537181653) CALCIUM (test code = 8.1 mg/dL 8.6-10.6 L 6179264607) eGFR (test code = mL/min/1.73m2 6061312000) PAULA (test code = PAULA) Association of [...] tests). Lab Interpretation Abnormal (test code = 71253-5) [facility]anoHep[facility] Function [facility] (ALB, T.PRO, BILI T, BU/BC, ALT, AST, ALK PHOS)2020-10-15 16:13:24 Test Item Value Reference Range Interpretation Comments TOTAL BILI (test code = 0038927753) 0.3 mg/dL 0.1-1.1 BILI UNCON (test code = 7729621128) 0.1 mg/dL 0.1-1.1 BILI CONJ (test code = 5538038772) 0.0 mg/dL 0.0-0.3 T PROTEIN (test code = 3347610369) 6.0 g/dL 6.3-8.2 L ALBUMIN (test code = 0515772782) 3.2 g/dL 3.5-5.0 L ALK PHOS (test code = 7134757336) 59 U/L 34-122 ALTv (test code = 1742-6) 74 U/L 5-35 H AST(SGOT) (test code = 6550571898) 100 U/L 13-40 H Lab Interpretation (test code = Abnormal 99213-8) [facility]anoPregnancy Test, [id number] 16:12:38 Test Item Value Reference Range Interpretation Comments PREG SERUM (test code Negative = 9519578558) PAULA (test code = PAULA) Less than 10 IU/L. ?If low titer or ectopic is suspected, resubmit specimen in 48-72 hours. [facility] PlanoTroponin [id number] 14:29:39TROPONIN IComment: Possible Contaminated specimen. ?Talked to Dr Mai to reorder Troponin and BNP. This is a corrected result. ?Previous result was 0.007 ng/mL on 10/15/2020 at 0903 [facility] SERVICESEqual or Less than 0.034 [...] results relative to patient's use of biotin. ?[facility]anoN- TERMINAL [id number] 14:28:48NT-proBNPComment: Possible Contaminated specimen. ?Talked to Dr Mai to reorder Troponin and BNP. This is a corrected result. ?Previous result was 41 pg/mL on 10/15/2020 at 0904 [facility] SERVICESBiotin has been reported to cause a negative bias, interpret results relative to patient's use of biotin.[facility]anoLipase Nupry6054-37-23 14:09:09LIPASEComment: Possible contamination of specimen. Dr Mai to reorder for recollection. This is a corrected result. ?Previous result was 16 U/L on 10/15/2020 at 0852 [facility] SERVICESUnSt[facility] LufkinCREATINE [id number] 14:08:28CKComment: Possible contamination of specimen. Dr Mai to reorder for recollection. This is a corrected result. ?Previous result was 230 U/L on 10/15/2020 at 0852 [facility] SERVICESUnSt. Luke[facility] Memorial LufkinCT HEAD WO CONTRAST 2020-10-15 13:47:51 No acute [...] clear. IMPRESSIONNo acute intracranial hemorrhage or mass effect.[facility]anoXR CHEST 1 [id number] 14:06:46 No acute cardiopulmonary process. Preliminary Report [...] reviewed this study and agree with theabove report.[facility] PlanoCOMP. METABOLIC PANEL (32602)2020-10-13 11:48:17 Test Item Value Reference Range Interpretation Comments NA (test code = 137 mmol/L 135-145 2603359806) K (test code = 4.2 mmol/L 3.5-5.0 Slight 2911521124) hemolysis CL (test code = 110 mmol/L 98-108 H 4846394553) CO2 TOTAL (test code 18 mmol/L 23-31 L = 4563562000) AGAP (test code = 2-16 3344706867) BUN (test code = 13 mg/dL 7-23 Slight 2992934585) hemolysis GLUCOSE (test code = 104 mg/dL 70-110 8754392773) CREATININE (test code 0.63 mg/dL 0.50-1.04 = 4155550780) TOTAL BILI (test code 0.5 mg/dL 0.1-1.1 = 7274370848) CALCIUM (test code = 8.1 mg/dL 8.6-10.6 L 0816296506) T PROTEIN (test code 7.0 g/dL 6.3-8.2 = 2647597993) ALBUMIN (test code = 3.8 g/dL 3.5-5.0 5997652508) ALK PHOS (test code = 55 U/L 34-122 Slight 9878731791) hemolysis ALTv (test code = 49 U/L 5-35 H 1742-6) AST(SGOT) (test code 72 U/L 13-40 H Slight = 4565647638) hemolysis eGFR (test code = mL/min/1.73m2 9161167178) PAULA (test code = PAULA) Association of [...] tests). Lab Interpretation Abnormal (test code = 36924-6) [facility]anoDrug Screen [id number] 11:42:55 Test Item Value Reference Range Interpretation Comments AMPHET (test code = Presumptive Positive Negative A 8301031009) Cocaine Metabolite (test Negative Negative code = 6780404960) OPIATES (test code = Presumptive Positive Negative A 6368209163) THC (test code = Negative Negative 8273920438) PAULA (test code = PAULA) Urine Drug Cutoff Ranges Amphetamine: ? 1,000 ng/mLCocaine: ? 150 ng/mLOpiates: ? 300 ng/mLCannabinoids: ?50 ng/mL The results are to be used only for medical (i.e., treatment) purposes. Unconfirmed screening results must not be used for non-medical purposes (e.g., employment testing, legal testing). Lab Interpretation (test Abnormal code = 25837-7) [facility]anoDR[facility] SCREEN PANEL 2 [id number] 11:42:35 Test Item Value Reference Range Interpretation Comments AMPHET (test code = Presumptive Positive Negative A 5209190762) ANN U (test code = Negative Negative 7742844199) BENZO U (test code = Negative Negative 8101461429) Cocaine Metabolite (test Negative Negative code = 5486582810) METHADONE (test code = Negative Negative 6190795313) OPIATES (test code = Presumptive Positive Negative A 5974191981) PCP (test code = Negative Negative 4154329537) THC (test code = Negative Negative 6283201214) PAULA (test code = PAULA) Urine Drug [...] testing). Lab Interpretation (test Abnormal code = 48965-6) [facility]anoD-EWXOV0812-21-05 11:32:36 Test Item Value Reference Interpretation Comments Range D-DIMER (test code = See_Comment [Autom ated 5986396224) message] The system which generated this result [...] diagnosis. Lab Interpretation Normal (test code = 17068-3) [facility]anoURINALYSIS2021-04-20 11:29:49 Test Item Value Reference Range Interpretation Comments APPEARANCE (test code = Clear Clear 3604604852) COLOR (test code = Straw Yellow A 9724656990) PH (test code = 4.8-8.0 3924939015) SP GRAVITY (test code = 1.003-1.030 8641966550) GLU U QUAL (test code = Normal Normal 3632575848) BLOOD (test code = Negative Negative 7781277891) KETONES (test code = Negative Negative 2733578009) PROTEIN (test code = Negative Negative 2887-8) UROBILIN (test code = Normal Normal 2808522521) BILIRUBIN (test code = Negative Negative 4897624879) NITRITE (test code = Negative Negative 5180507394) LEUK JONATHON (test code = Negative Negative 0479707270) RBC/HPF (test code = <1 See_Comment [Autom ated message] 5378762440) The system [employer] generated this result transmitted ref erence range: 0 - 3 HP F. The reference range was not used to int erpret this result as normal/abnormal . WBC/HPF (test code = <1 See_Comment [Autom ated message] 3772960891) The system [employer] generated this result transmitted ref erence range: 0 - 5 HP F. The reference range was not used to int erpret this result as normal/abnormal . BACTERIA (test code = Few Negative A 8325820376) SQ EPITH (test code = See_Comment [Auto mated message] 3849891112) The system [employer] generated this result transmitted ref erence range: <=2 HPF. The reference range was not used to int erpret this result as normal/abnormal . Lab Interpretation (test Abnormal code = 37719-0) [facility] [id number] 11:13:00 Test Item Value Reference Range Interpretation Comments POCT PREG (test code = 1605) negative On board controls acceptable with present C Line (test code = 3574) POCT PREG LOT # (test code = 3575) [id number] POCT PREG TEST DATE (test 2022-05-25 code = 3576) Lab Interpretation (test code = Normal 25867-8) [facility]ID STIMULATING [id number] 11:12:54 Test Item Value Reference Range Interpretation Comments TSH (test code = See_Comment H [Automated message] 4973373261) The system [employer] generated this result transmitted ref erence range: 0.45 - 4 .70 mIU/L. The refe rence range was not u sed to interpret this result as normal/abnor mal. Lab Interpretation (test Abnormal code = 05092-5) [facility]ano[facility]rop[facility] [id number] 10:54:13 Test Item Value Reference Range Interpretation Comments TROPONIN I (test 0.013 ng/mL See_Comment [Automated code = 7861945275) message] The system which generated this result [...] ? Lab Interpretation Normal (test code = 95199-4) [facility]anoEthanol [id number] 10:53:52 Test Item Value Reference Range Interpretation Comments ALCOHOL (test code = <10 mg/dL 0667808636) PAULA (test code = Toxic Greater than or PAULA) equal to 80 mg/dL. NOTE: Whole blood values are approximately 10% to 15% lower than serum and plasma. [facility] with Qhdpwpmmedvm0567-26-57 10:49:12 Test Item Value Reference Range Interpretation Comments WBC (test code = See_Comment [Automated message] 7890-2) The system [employer] generated this result transmitted ref erence range: 4.30 - 1 1.10 10*3/?L. The re ference range was not u sed to interpret this result as normal/abnor mal. RBC (test code = See_Comment [Automated message] 029-8) The system [employer] generated this result transmitted ref erence range: [...] RDW-SD (test code 43.8 fL 39.0-49.9 = 51359-4) RDW-CV (test code 12.9 % 12.0-15.5 = 788-0) PLT (test code = See_Comment [Automated message] 777-3) The system whic h generated this result transmitted ref erence range: 166 - 35 8 10*3/?L. The re ference range was not u sed to interpret this result as normal/abnor mal. MPV (test code = 9.5 fL 9.5-12.9 35756-5) NRBC/100 WBC (test See_Comment [Automat ed message] code = 4161682593) The syste m which generated this result transmitted ref erence range: 0.0 - 10 .0 /100 WBCs. The refer ence range was not u sed to interpret this result as normal/abnor mal. NRBC x10^3 (test <0.01 See_Comment [Automated message] code = 2884661878) The syste m which generated this result transmitted ref erence range: 10*3/?L. The reference range was not used to interpr et this result as normal/abnormal . GRAN MAT (NEUT) % 66.8 % (test code = 770-8) IMM GRAN % (test 0.30 % code = 0043726480) LYMPH % (test code 21.6 % = 736-9) MONO % (test code 9.2 % = 5905-5) EOS % (test code = 1.4 % 713-8) BASO % (test code 0.7 % = 706-2) GRAN MAT 4.73 10*3/uL 1.88-7.09 x10^3(ANC) (test code = 3599205362) IMM GRAN x10^3 <0.03 0.00-0.06 (test code = 6209073615) LYMPH x10^3 (test 1.53 10*3/uL 1.32-3.29 code = 731-0) MONO x10^3 (test 0.65 10*3/uL 0.33-0.92 code = 742-7) EOS x10^3 (test 0.10 10*3/uL 0.03-0.39 code = 711-2) BASO x10^3 (test 0.05 10*3/uL 0.01-0.07 code = 704-7) [facility]anoLipase [id number] 10:44:47 Test Item Value Reference Range Interpretation Comments LIPASE (test code = 2697229508) 172 U/L 0-220 Lab Interpretation (test code = Normal 53817-9) [facility]anoProthrombin Time (PT) / [id number] 10:43:11 Test Item Value Reference Range Interpretation Comments PROTIME PATIENT (test See_Comment [Auto mated message] code = 5964-2) The system [employer] generated this result transmitted ref erence range: 10.1 - 1 2.6 Seconds. The re ference range was not u sed to interpret this result as normal/abnor mal. INR (test code = 6301-6) Nor mal INR <1.1; Warfarin Therap eutic range 2.0 to 3. 0 or 2.5 to 3.5, dep ending upon the indica tions. Lab Interpretation (test Normal code = 67559-8) [facility]anoaPTT2021-04-20 10:43:11 Test Item Value Reference Range Interpretation Comments APTT Patient (test code See_Comment L [Au tomated message] = 3173-2) The system Paradine h generated this result transmitted ref erence range: 26 - 36 Seconds. The reference range was not used to int erpret this result as normal/abnormal . Lab Interpretation (test Abnormal code = 43158-2) [facility] (ID NOW RAPID TESTING)2020-10-13 10:28:07 Test Item Value Reference Range Interpretation Comments SARS-CoV-2 Rapid ID NOW Not Detected Not Detected (test code = 43938-5) PAULA (test code = PAULA) ID NOW COVID-19 Assay is an isothermal nucleic acid amplification test intended for the qualitative detection of nucleic acid from SARS-CoV-2 viral RNA in nasopharyngeal (WOOD CARVER HAND) specimens. It is used under Emergency Use [...] indicated. Lab Interpretation Normal (test code = 21779-9) [facility]anoPREGNANCY TEST, [id number] 03:54:33 Test Item Value Reference Range Interpretation Comments PREG SERUM (test code Negative = 5906770186) PAULA (test code = PAULA) Less than 10 IU/L. ?If low titer or ectopic is suspected, resubmit specimen in 48-72 hours. [facility] Metabolic Panel (NA, K, CL, CO2, GLUCOSE, BUN, CREATININE, CA)2020-09-17 03:26:58 Test Item Value Reference Range Interpretation Comments NA (test code = 135 mmol/L 135-145 0736002440) K (test code = 3.8 mmol/L 3.5-5.0 0598129310) CL (test code = 99 mmol/L 98-108 3351528905) CO2 TOTAL (test code = 24 mmol/L 23-31 7104627525) AGAP (test code = 2-16 5670802351) BUN (test code = 9 mg/dL 7-23 6295986482) GLUCOSE (test code = 100 mg/dL 70-110 7047638994) CREATININE (test code 0.74 mg/dL 0.50-1.04 = 2143867380) CALCIUM (test code = 9.1 mg/dL 8.6-10.6 9634598484) eGFR Calculation mL/min/1.73m2 (Non-) (test code = 3940256318) eGFR Calculation mL/min/1.73m2 () (test code = 1288674954) PAULA (test code = PAULA) Association of [...] or urine or abnormalities in imaging tests). [facility]anoHep[facility] (ALB, T.PRO, BILI T, BU/BC, ALT, AST, ALK PHOS)2020-09-17 03:26:58 Test Item Value Reference Range Interpretation Comments TOTAL BILI (test code = 3323959501) 0.4 mg/dL 0.1-1.1 BILI UNCON (test code = 0283692947) 0.2 mg/dL 0.1-1.1 BILI CONJ (test code = 8419254188) 0.0 mg/dL 0.0-0.3 T PROTEIN (test code = 2009567569) 8.6 g/dL 6.3-8.2 H ALBUMIN (test code = 2444315792) 5.1 g/dL 3.5-5.0 H ALK PHOS (test code = 6897868157) 114 U/L 34-122 ALTv (test code = 1742-6) 28 U/L 5-35 AST(SGOT) (test code = 4545021008) 47 U/L 13-40 H Lab Interpretation (test code = Abnormal 99327-7) [facility]anoLipase [id number] 03:26:58 Test Item Value Reference Range Interpretation Comments LIPASE (test code = 9849265471) 81 U/L 0-220 Lab Interpretation (test code = Normal 18058-7) [facility] with Egxddnasipbo8733-36-05 03:13:16 Test Item Value Reference Range Interpretation [...] RDW-SD (test code = 42.8 fL 39.0-49.9 54132-2) RDW-CV (test code = 12.8 % 12.0-15.5 788-0) PLT (test code = See_Comment [Automated 777-3) message] The sy stem which generated this result transmitted reference range : 166 - 358 10*3/ ?L. The reference r micah was not used to interpret this result as normal/abnormal . MPV (test code = 8.9 fL 9.5-12.9 L 61333-3) NRBC/100 WBC (test See_Comment [Automat ed code = 8005420963) message] The system which generated this result transmitted reference range : 0.0 - 10.0 /100 WBCs. The refer ence range was not u sed to interpret th is result as normal/abnormal . NRBC x10^3 (test code <0.01 See_Comment [Auto mated = 0302145436) message] The s ystem which generated this result transmitted reference range : 10*3/?L. The reference range was not used to interpret this result as normal/abnormal . GRAN MAT (NEUT) % 44.7 % (test code = 770-8) IMM GRAN % (test code 0.50 % = 5703698387) LYMPH % (test code = 44.6 % 736-9) MONO % (test code = 8.2 % 5905-5) EOS % (test code = 0.9 % 713-8) BASO % (test code = 1.1 % 706-2) GRAN MAT x10^3(ANC) 2.84 10*3/uL 1.88-7.09 (test code = 4435333971) IMM GRAN x10^3 (test 0.03 10*3/uL 0.00-0.06 code = 1402108619) LYMPH x10^3 (test code 2.83 10*3/uL 1.32-3.29 = 731-0) MONO x10^3 (test code 0.52 10*3/uL 0.33-0.92 = 742-7) EOS x10^3 (test code = 0.06 10*3/uL 0.03-0.39 711-2) BASO x10^3 (test code 0.07 10*3/uL 0.01-0.07 = 704-7) Lab Interpretation Abnormal (test code = 63800-6) [facility]anoN-[facility]MINAL [id number] 11:23:18 Test Item Value Reference Range Interpretation Comments NT-proBNP (test code 100 pg/mL See_Comment [Autom ated = 4689260805) message] The system which generated this result transmitted reference range : <=125. The reference range was not used to interpret this result as normal/abnormal . PAULA (test code = PAULA) Biotin has been reported to cause a negative bias, interpret results relative to patient's use of biotin. Lab Interpretation Normal (test code = 61362-2) [facility] WITH [id number] 11:03:17 Test Item Value Reference Range Interpretation [...] RDW-SD (test code = 44.5 fL 39.0-49.9 14846-5) RDW-CV (test code = 12.7 % 12.0-15.5 788-0) PLT (test code = See_Comment [Automated 777-3) message] The sy stem which generated this result transmitted reference range : 166 - 358 10*3/ ?L. The reference r micah was not used to interpret this result as normal/abnormal . MPV (test code = 10.3 fL 9.5-12.9 44554-8) NRBC/100 WBC (test See_Comment [Automat ed code = 1079931919) message] The system which generated this result transmitted reference range : 0.0 - 10.0 /100 WBCs. The refer ence range was not u sed to interpret th is result as normal/abnormal . NRBC x10^3 (test code <0.01 See_Comment [Auto mated = 5909001973) message] The s ystem which generated this result transmitted reference range : 10*3/?L. The reference range was not used to interpret this result as normal/abnormal . GRAN MAT (NEUT) % 51.5 % (test code = 770-8) IMM GRAN % (test code 0.40 % = 0925351680) LYMPH % (test code = 35.6 % 736-9) MONO % (test code = 8.2 % 5905-5) EOS % (test code = 3.1 % 713-8) BASO % (test code = 1.2 % 706-2) GRAN MAT x10^3(ANC) 3.78 10*3/uL 1.88-7.09 (test code = 1450722360) IMM GRAN x10^3 (test 0.03 10*3/uL 0.00-0.06 code = 5778254915) LYMPH x10^3 (test code 2.61 10*3/uL 1.32-3.29 = 731-0) MONO x10^3 (test code 0.60 10*3/uL 0.33-0.92 = 742-7) EOS x10^3 (test code = 0.23 10*3/uL 0.03-0.39 711-2) BASO x10^3 (test code 0.09 10*3/uL 0.01-0.07 H = 704-7) Lab Interpretation Abnormal (test code = 76709-4) [facility] [id number] 10:38:33 Test Item Value Reference Range Interpretation Comments TROPONIN I (test <0.012 See_Comment [Automated code = 0293059604) message] The system which generated this result [...] ? Lab Interpretation Normal (test code = 92301-8) [facility]. METABOLIC PANEL (11454)2020-09-06 10:26:52 Test Item Value Reference Range Interpretation Comments NA (test code = 134 mmol/L 135-145 L 1905289601) K (test code = 3.9 mmol/L 3.5-5.0 3709271218) CL (test code = 100 mmol/L 98-108 3072463335) CO2 TOTAL (test code = 27 mmol/L 23-31 3182203031) AGAP (test code = 2-16 2373960046) BUN (test code = 17 mg/dL 7-23 1638986983) GLUCOSE (test code = 90 mg/dL 70-110 3363643566) CREATININE (test code = 0.65 mg/dL 0.50-1.04 0936868770) TOTAL BILI (test code = 0.4 mg/dL 0.1-1.3 0387067950) CALCIUM (test code = 8.3 mg/dL 8.6-10.6 L 8819935414) T PROTEIN (test code = 7.1 g/dL 6.3-8.2 6128191887) ALBUMIN (test code = 4.1 g/dL 3.5-5.0 7334846688) ALK PHOS (test code = 101 U/L 34-122 1463458709) ALTv (test code = 47 U/L 5-35 H 1742-6) AST(SGOT) (test code = 45 U/L 13-40 H 1369089709) eGFR Calculation mL/min/1.73m2 (Non-) (test code = 1843085243) eGFR Calculation mL/min/1.73m2 () (test code = 8636293691) PAULA (test code = PAULA) Association of [...] tests). Lab Interpretation Abnormal (test code = 99800-9) [facility]anoLIP[facility], [id number] 10:26:32 Test Item Value Reference Range Interpretation Comments LIPASE (test code = 8972489045) 139 U/L 0-220 Lab Interpretation (test code = Normal 57829-0) [facility]anoD-CUAWD5519-76-24 03:26:49 Test Item Value Reference Interpretation Comments Range D-DIMER (test code = <0.27 See_Comment [Autom ated 9376368690) message] The system which generated this result [...] diagnosis. Lab Interpretation Normal (test code = 10500-8) [facility]anoTHYROID STIMULATING [id number] 02:42:25 Test Item Value Reference Range Interpretation Comments TSH (test code = See_Comment [Automated message] 8805319051) The system [employer] generated this result transmitted ref erence range: 0.45 - 4 .70 mIU/L. The refe rence range was not u sed to interpret this result as normal/abnor mal. Lab Interpretation (test Normal code = 62721-5) [facility]anoN-TERMINAL [id number] 02:20:57 Test Item Value Reference Range Interpretation Comments NT-proBNP (test code 223 pg/mL See_Comment H [Autom ated = 3312267953) message] The system which generated this result transmitted reference range : <=125. The reference range was not used to interpret this result as normal/abnormal . PAULA (test code = PAULA) Biotin has been reported to cause a negative bias, interpret results relative to patient's use of biotin. Lab Interpretation Abnormal (test code = 45290-9) [facility]anoTroponin [id number] 01:06:21 Test Item Value Reference Range Interpretation Comments TROPONIN I (test <0.012 See_Comment [Automated code = 3641662113) message] The system which generated this result [...] ? Lab Interpretation Normal (test code = 86441-2) [facility] (ALB, T.PRO, BILI T, BU/BC, ALT, AST, ALK PHOS)2020-09-02 00:56:20 Test Item Value Reference Range Interpretation Comments TOTAL BILI (test code = 2979991868) 0.5 mg/dL 0.1-1.1 BILI UNCON (test code = 8967351102) 0.3 mg/dL 0.1-1.1 BILI CONJ (test code = 8176774506) 0.0 mg/dL 0.0-0.3 T PROTEIN (test code = 8585237402) 8.1 g/dL 6.3-8.2 ALBUMIN (test code = 4436633279) 4.7 g/dL 3.5-5.0 ALK PHOS (test code = 9256621146) 109 U/L 34-122 ALTv (test code = 1742-6) 75 U/L 5-35 H AST(SGOT) (test code = 0484591136) 53 U/L 13-40 H Lab Interpretation (test code = Abnormal 84011-6) [facility] (NA, K, CL, CO2, GLUCOSE, BUN, CREATININE, CA)2020-09-02 00:56:00 Test Item Value Reference Range Interpretation Comments NA (test code = 136 mmol/L 135-145 5330044350) K (test code = 3.8 mmol/L 3.5-5.0 9120349379) CL (test code = 99 mmol/L 98-108 5347450298) CO2 TOTAL (test code = 27 mmol/L 23-31 0500432226) AGAP (test code = 2-16 8727783443) BUN (test code = 4 mg/dL 7-23 L 8777950041) GLUCOSE (test code = 115 mg/dL 70-110 H 2856634667) CREATININE (test code = 0.49 mg/dL 0.50-1.04 L 0167612556) CALCIUM (test code = 9.4 mg/dL 8.6-10.6 0595161048) eGFR Calculation mL/min/1.73m2 (Non-) (test code = 8346654118) eGFR Calculation mL/min/1.73m2 () (test code = 3290059025) PAULA (test code = PAULA) Association of [...] tests). Lab Interpretation Abnormal (test code = 71582-8) [facility]anoLipase [id number] 00:56:00 Test Item Value Reference Range Interpretation Comments LIPASE (test code = 6443350236) 60 U/L 0-220 Lab Interpretation (test code = Normal 10517-6) [facility]COVID[facility] (ID NOW RAPID TESTING)2020-09-02 00:31:12 Test Item Value Reference Range Interpretation Comments SARS-CoV-2 Rapid ID NOW Not Detected Not Detected (test code = 78403-4) PAULA (test code = PAULA) ID NOW COVID-19 Assay is an isothermal nucleic acid amplification test intended for the qualitative detection of nucleic acid from SARS-CoV-2 viral RNA in nasopharyngeal (WOOD CARVER HAND) specimens. It is used under Emergency Use [...] indicated. Lab Interpretation Normal (test code = 62204-3) [facility]anoCB with [id number] 00:21:26 Test Item Value Reference Range Interpretation Comments WBC (test code = See_Comment [Automated 3790-2) message] The sy stem which generated this result transmitted reference range : 4.30 - 11.10 10*3/?L. The reference range was not used to interpret this result as normal/abnormal . RBC (test code = See_Comment [Automated 852-8) message] The sy stem which generated this [...] RDW-SD (test code = 43.6 fL 39.0-49.9 98524-9) RDW-CV (test code = 12.9 % 12.0-15.5 788-0) PLT (test code = See_Comment H [Automated 777-3) message] The sy stem which generated this result transmitted reference range : 166 - 358 10*3/ ?L. The reference r micah was not used to interpret this result as normal/abnormal . MPV (test code = 9.4 fL 9.5-12.9 L 04922-9) NRBC/100 WBC (test See_Comment [Automat ed code = 4462438158) message] The system which generated this result transmitted reference range : 0.0 - 10.0 /100 WBCs. The refer ence range was not u sed to interpret th is result as normal/abnormal . NRBC x10^3 (test code <0.01 See_Comment [Auto mated = 3250862835) message] The s ystem which generated this result transmitted reference range : 10*3/?L. The reference range was not used to interpret this result as normal/abnormal . GRAN MAT (NEUT) % 71.0 % (test code = 770-8) IMM GRAN % (test code 0.50 % = 5344618742) LYMPH % (test code = 19.1 % 736-9) MONO % (test code = 7.6 % 5905-5) EOS % (test code = 0.7 % 713-8) BASO % (test code = 1.1 % 706-2) GRAN MAT x10^3(ANC) 6.08 10*3/uL 1.88-7.09 (test code = 5007194019) IMM GRAN x10^3 (test 0.04 10*3/uL 0.00-0.06 code = 8196934503) LYMPH x10^3 (test code 1.63 10*3/uL 1.32-3.29 = 731-0) MONO x10^3 (test code 0.65 10*3/uL 0.33-0.92 = 742-7) EOS x10^3 (test code = 0.06 10*3/uL 0.03-0.39 711-2) BASO x10^3 (test code 0.09 10*3/uL 0.01-0.07 H = 704-7) Lab Interpretation Abnormal (test code = 12222-7) [facility] Metabolic Panel (NA, K, CL, CO2, Glucose, BUN, Creatinine, CA)2020-04-12 10:56:00 Test Item Value Reference Range Interpretation Comments NA (test code = 135 mmol/L 135-145 5263557936) K (test code = 4.1 mmol/L 3.5-5 0355268056) CL (test code = 105 mmol/L 98-108 3197122629) CO2 TOTAL (test code = 28 mmol/L 23-31 5458881711) AGAP (test code = 2-16 2445640731) BUN (test code = 11 mg/dL 7-23 4748787225) GLUCOSE (test code = 95 mg/dL 70-110 4485783210) CREATININE (test code = 0.57 mg/dL 0.5-1.04 6730354525) CALCIUM (test code = 7.9 mg/dL 8.6-10.6 L 1953750809) eGFR Calculation mL/min/1.73m2 (Non-) (test code = 2331920641) eGFR Calculation mL/min/1.73m2 () (test code = 7356113744) PAULA (test code = PAULA) Association of [...] tests). Lab Interpretation Abnormal (test code = 12510-1) [facility] with Inucypddxffu6351-07-90 10:31:00 Test Item Value Reference Range Interpretation Comments WBC (test code = See_Comment [Automated 9990-2) message] The sy stem which generated this result transmitted reference range : 4.30 - 11.10 10*3/?L. The reference range was not used to interpret this result as normal/abnormal . RBC (test code = See_Comment L [Automated 095-8) message] The sy stem which generated this [...] RDW-SD (test code = 44.9 fL 39-49.9 73790-9) RDW-CV (test code = 13.2 % 12-15.5 788-0) PLT (test code = See_Comment [Automated 777-3) message] The sy stem which generated this result transmitted reference range : 166 - 358 10*3/ ?L. The reference r micah was not used to interpret this result as normal/abnormal . MPV (test code = 9.8 fL 9.5-12.9 00827-7) NRBC/100 WBC (test See_Comment [Automat ed code = 1938905604) message] The system which generated this result transmitted reference range : 0.0 - 10.0 /100 WBCs. The refer ence range was not u sed to interpret th is result as normal/abnormal . NRBC x10^3 (test code <0.01 See_Comment [Auto mated = 1692587185) message] The s ystem which generated this result transmitted reference range : 10*3/?L. The reference range was not used to interpret this result as normal/abnormal . GRAN MAT (NEUT) % 47.2 % (test code = 770-8) IMM GRAN % (test code 0.30 % = 4830240559) LYMPH % (test code = 40.7 % 736-9) MONO % (test code = 8.4 % 5905-5) EOS % (test code = 2.5 % 713-8) BASO % (test code = 0.9 % 706-2) GRAN MAT x10^3(ANC) 3.15 10*3/uL 1.88-7.09 (test code = 9749081713) IMM GRAN x10^3 (test <0.03 0-0.06 code = 0335021378) LYMPH x10^3 (test code 2.72 10*3/uL 1.32-3.29 = 731-0) MONO x10^3 (test code 0.56 10*3/uL 0.33-0.92 = 742-7) EOS x10^3 (test code = 0.17 10*3/uL 0.03-0.39 711-2) BASO x10^3 (test code 0.06 10*3/uL 0.01-0.07 = 704-7) Lab Interpretation Abnormal (test code = 14923-0) [facility] 2 VW [id number] 21:32:56 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 [...] with no effusionidentified.IMPRESSIONElbow joint osteoarthrosis.No acute fractures. [facility]XR HAND 3+ VW [id number] 21:31:56 No fracture or dislocation identified.EXAM: XR HAND 3+ VW LEFT HISTORY: trauma, ttp just proximal to wrist COMPARISON: None FINDINGS: Imaging of the hand demonstrates maintenance of alignment. No fractures areseen. Joint spaces are preserved. [facility]11/[facility] 4:33 PM CDTEXAM:XR HAND 3+ VW LEFTHISTORY:trauma, ttp just proximal to wrist COMPARISON:NoneFINDINGS: Imaging of the hand demonstrates maintenance of alignment. No fractures areseen. Joint spaces are preserved.IMPRESSIONNo fracture or dislocation identified. [facility] [id number] 21:30:19 No acute bony abnormality is present. EXAM: XR WRIST 3+ VW LEFT HISTORY: trauma ttp proximal to wrist COMPARISON: None FINDINGS: Imaging of the wrist demonstrates maintenance of alignment. Joint spacesare preserved. The soft tissues are within normal limits. [facility] 04/11/2020 4:31 PM CDTEXAM:XR WRIST 3+ VW LEFTHISTORY:trauma ttp proximal to wrist COMPARISON:NoneFINDINGS: Im aging of the wrist demonstrates maintenance of alignment. Joint spacesare preserved. The soft tissues are within normal limits.IMPRESSIONNo acute bony abnormality is present.[facility] 2020-04-11 [...] reviewed this study and agree with the abovereport.[facility]XR ANKLE 3+ VW [id number] 15:00:43 No acute bony abnormality. Preliminary Report [...] ankle mortise is anatomic. Minimal forefoot swelling. [facility], [facility] 04/11/2020 10:01 AM CDTEXAM: [...] reviewed this study and agree with the abovereport.[facility]XR TIBIA FIBULA 2 VW LEFT 2020-04-11 15:00:43 [...] reviewed this study and agree with the abovereport.[facility]anoCT [facility] THORAX W CONTRAST 2020-04-11 14:32:46 Wedge [...] reviewed this study and agree with the abovereport.[facility]anoCT TRA[facility] ABDOMEN PELVIS W [id number] 14:32:46 Wedge compression deformity of T12, discussed [...] is identified. No pelvic fracture is identified. [facility], Radiant Results [employer] User -04/11/2020 9:33 [...] reviewed this study and agree with the abovereport.[facility]anoCT [facility] HEAD WO [id number] 13:39:41Addendum by Macarena Paredes MD on 04/11/2020 [...] reviewed this study and agree with theabove report.[facility]CT [facility] CERVICAL SPINE WO [id number] 13:39:41Addendum by Macarena Paredes MD on 04/11/2020 [...] reviewed this study and agree with theabove report.[facility]CT [facility] THORACIC SPINE WO [id number] 13:39:41Addendum by Macarena Paredes MD on 04/11/2020 [...] reviewed this study and agree with theabove report.[facility] [place] TRAUMA LUMBAR SPINE WO [id number] 13:39:41Addendum by Macarena Paredes MD on 04/11/2020 [...] reviewed this study and agree with theabove report.[facility] PlanoType and Screen - The Type and Screen expires at midnight on the 3rd day after it was drawn. A current Type and Screen is required when RBCs are requested. For all other blood products, a Type and Screen performed during the current hospitalizati...2020-04-11 13:14:02 Test Item Value Reference Range Interpretation Comments ABO & RH (test code A POSITIVE Performe d at [facility] = 20) Laboratory [facility] [place] [address] s [id number] Free: [phone] A No. [id number] IAT (test code = Negative Performed a t [facility] 1185) Laboratory [facility] [place] [address] s 79092Pwjs Free: [phone] A No. [id number] [facility] Metabolic [facility] (NA, K, CL, CO2, GLUCOSE, BUN, CREATININE, CA)2020-04-11 12:45:00 Test Item Value Reference Range Interpretation Comments NA (test code = 136 mmol/L 135-145 7121569052) K (test code = 4.7 mmol/L 3.5-5 Slight hemoly sis 0560196924) CL (test code = 102 mmol/L 98-108 6095692244) CO2 TOTAL (test 25 mmol/L 23-31 code = 5104873802) AGAP (test code = 2-16 1833194268) BUN (test code = 14 mg/dL 7-23 Slight hemo lysis 1307974574) GLUCOSE (test code 99 mg/dL 70-110 = 6292831028) CREATININE (test 0.85 mg/dL 0.5-1.04 code = 4912491370) CALCIUM (test code 9.0 mg/dL 8.6-10.6 = 6428451742) eGFR Calculation mL/min/1.73m2 (Non-) (test code = 7377352043) eGFR Calculation mL/min/1.73m2 () (test code = 6186385608) PAULA (test code = Association of PAULA) [...] or urine or abnormalities in imaging tests). [facility] PlanoProthrombin Time / [id number] 12:41:00 Test Item Value Reference Range Interpretation Comments PROTIME PATIENT (test See_Comment [Auto mated message] code = 5964-2) The system Bizen generated this result transmitted ref erence range: 10.1 - 1 2.6 Seconds. The re ference range was not u sed to interpret this result as normal/abnor mal. INR (test code = 6301-6) Nor mal INR <1.1; Warfarin Therap eutic range 2.0 to 3. 0 or 2.5 to 3.5, dep ending upon the indica tions. Lab Interpretation (test Normal code = 99997-7) [facility] PlanoaPTT2020-10-17 12:41:00 Test Item Value Reference Range Interpretation Comments APTT Patient (test code See_Comment L [Au tomated message] = 3173-2) The system [employer] generated this result transmitted ref erence range: 26 - 36 Seconds. The reference range was not used to int erpret this result as normal/abnormal . Lab Interpretation (test Abnormal code = 79257-1) [facility] PlanoProfile / [id number] 12:31:00 Test Item Value Reference Range Interpretation Comments WBC (test code = 6690-2) See_Comment H [A utomated message] The system [employer] generated this result transmit bhaskar reference range : 4.30 - 11.10 10*3/?L. The reference range was not used to interpret this result as normal/abnormal . RBC (test code = 789-8) See_Comment [Au tomated message] The system [employer] generated this result transmit bhaskar reference range [...] 777-3) See_Comment [Au tomated message] The system [employer] generated this result transmit bhaskar reference range : 166 - 358 10*3/?L. The reference range was not used to interpret this result as normal/abnormal . MPV (test code = 10.0 fL 9.5-12.9 75104-3) RDW-CV (test code = 12.9 % 12-15.5 788-0) RDW-SD (test code = 43.6 fL 39-49.9 65033-9) NRBC x10^3 (test code = <0.01 See_Comment [Au tomated message] 8767774528) The system [employer] generated this result transmit bhaskar reference range : 10*3/?L. The reference range was not used to interpret this result as normal/abnormal . NRBC/100 WBC (test code See_Comment [Au tomated message] = 1532826799) The system Dermira generated this result transmit bhaskar reference range : 0.0 - 10.0 /100 WBC s. The reference r micah was not used to interpret this result as normal/abnormal . IPF % (test code = 1698399293) Lab Interpretation (test Abnormal code = 44801-0) [facility] [id number] 02:32:00 Test Item Value Reference Range Interpretation Comments TROPONIN I (test 0.013 ng/mL See_Comment [Automated code = 4428362349) message] The system which generated this result [...] ? Lab Interpretation Normal (test code = 05606-2) [facility] / [facility] - DRUG SCREEN [id number] 05:48:00 Test Item Value Reference Range Interpretation Comments BENZO U (test code = Presumptive Positive Negative A 1015111653) ANN U (test code = Negative Negative 5883037408) AMPHET (test code = Presumptive Positive Negative A 4647512069) THC (test code = Negative Negative 9941093643) METHADONE (test code = Negative Negative 3589880868) Meth U (test code = Presumptive Positive Negative A 3942073841) OPIATES (test code = Negative Negative 5794878481) Cocaine Metabolite (test Negative Negative code = 6007409112) PROPOXY (test code = Negative Negative 5055992803) Tric U (test code = Negative Negative 6264625328) PCP (test code = Negative Negative 7163919429) OXYCOD (test code = Negative Negative 1389716607) PAULA (test code = PAULA) Urine Drug [...] testing). Lab Interpretation (test Abnormal code = 18431-6) [facility]anoXR CHEST 1 [id number] 04:51:01Impression: No acute cardiopulmonary changes. Preliminary Report [...] reviewed this study and agree withthe above report.[facility] PlanoTROPONIN [id number] 04:48:00 Test Item Value Reference Range Interpretation Comments TROPONIN I (test 0.018 ng/mL See_Comment [Automated code = 5323535771) message] The system which generated this result [...] ? Lab Interpretation Normal (test code = 53317-0) [facility] PlanoN-TERMINAL CDP-[id number] 04:45:00 Test Item Value Reference Range Interpretation Comments NT-proBNP (test code 309 pg/mL See_Comment H [Autom ated = 4172761945) message] The system which generated this result transmitted reference range : <=125. The reference range was not used to interpret this result as normal/abnormal . PAULA (test code = PAULA) Biotin has been reported to cause a negative bias, interpret results relative to patient's use of biotin. Lab Interpretation Abnormal (test code = 89497-6) [facility] PlanoD-[id number] 04:43:00 Test Item Value Reference Interpretation Comments Range D-DIMER (test code = <0.27 See_Comment [Autom ated 2512411267) message] The system which generated this result [...] diagnosis. Lab Interpretation Normal (test code = 72543-9) [facility]anoCOVID-19 (ID NOW RAPID TESTING)2020-04-10 04:42:00 Test Item Value Reference Range Interpretation Comments SARS-CoV-2 Rapid ID NOW Not Detected Not Detected (test code = 30767-7) PAULA (test code = PAULA) ID NOW COVID-19 Assay is an isothermal nucleic acid amplification test intended for the qualitative detection of nucleic acid from SARS-CoV-2 viral RNA in nasopharyngeal (WOOD CARVER HAND) specimens. It is used under Emergency Use [...] indicated. Lab Interpretation Normal (test code = 16298-1) [facility] PlanoMAGNESIUM2020-10-16 04:37:00 Test Item Value Reference Range Interpretation Comments MAGNESIUM (test code = 4955808354) 1.7 mg/dL 1.7-2.4 Lab Interpretation (test code = Normal 42344-1) [facility] PlanoCOMP. METABOLIC PANEL (58228)2020-04-10 04:36:00 Test Item Value Reference Range Interpretation Comments NA (test code = 135 mmol/L 135-145 7613348669) K (test code = 3.4 mmol/L 3.5-5 L 9693013509) CL (test code = 99 mmol/L 98-108 7545584963) CO2 TOTAL (test code = 24 mmol/L 23-31 7676568063) AGAP (test code = 2-16 0405881172) BUN (test code = 8 mg/dL 7-23 1820629949) GLUCOSE (test code = 119 mg/dL 70-110 H 8839568866) CREATININE (test code = 0.71 mg/dL 0.5-1.04 9965991838) TOTAL BILI (test code = 0.5 mg/dL 0.1-1.5 5886701942) CALCIUM (test code = 10.9 mg/dL 8.6-10.6 H 1415082021) T PROTEIN (test code = 8.1 g/dL 6.3-8.2 9008339702) ALBUMIN (test code = 4.4 g/dL 3.5-5 1122891620) ALK PHOS (test code = 85 U/L 34-122 5255237073) ALTv (test code = 51 U/L 5-35 H 1742-6) AST(SGOT) (test code = 42 U/L 13-40 H 0821859387) eGFR Calculation mL/min/1.73m2 (Non-) (test code = 0390423888) eGFR Calculation mL/min/1.73m2 () (test code = 1605685066) PAULA (test code = PAULA) Association of [...] tests). Lab Interpretation Abnormal (test code = 30577-8) [facility] PlanoLIPASE2020-10-16 04:36:00 Test Item Value Reference Range Interpretation Comments LIPASE (test code = 1193590906) 193 U/L 0-220 Lab Interpretation (test code = Normal 21338-8) [facility] WITH [id number] 04:22:00 Test Item Value Reference Range Interpretation [...] RDW-SD (test code = 41.7 fL 39-49.9 05300-8) RDW-CV (test code = 12.5 % 12-15.5 788-0) PLT (test code = See_Comment [Automated 777-3) message] The sy stem which generated this result transmitted reference range : 166 - 358 10*3/ ?L. The reference r micah was not used to interpret this result as normal/abnormal . MPV (test code = 9.5 fL 9.5-12.9 59927-6) NRBC/100 WBC (test See_Comment [Automat ed code = 2724474655) message] The system which generated this result transmitted reference range : 0.0 - 10.0 /100 WBCs. The refer ence range was not u sed to interpret th is result as normal/abnormal . NRBC x10^3 (test code <0.01 See_Comment [Auto mated = 7304111344) message] The s ystem which generated this result transmitted reference range : 10*3/?L. The reference range was not used to interpret this result as normal/abnormal . GRAN MAT (NEUT) % 67.8 % (test code = 770-8) IMM GRAN % (test code 0.50 % = 7184091430) LYMPH % (test code = 24.0 % 736-9) MONO % (test code = 6.6 % 5905-5) EOS % (test code = 0.6 % 713-8) BASO % (test code = 0.5 % 706-2) GRAN MAT x10^3(ANC) 7.32 10*3/uL 1.88-7.09 H (test code = 7640220194) IMM GRAN x10^3 (test 0.05 10*3/uL 0-0.06 code = 4878844064) LYMPH x10^3 (test code 2.58 10*3/uL 1.32-3.29 = 731-0) MONO x10^3 (test code 0.71 10*3/uL 0.33-0.92 = 742-7) EOS x10^3 (test code = 0.06 10*3/uL 0.03-0.39 711-2) BASO x10^3 (test code 0.05 10*3/uL 0.01-0.07 = 704-7) Lab Interpretation Abnormal (test code = 75698-3) [facility]. METABOLIC PANEL (85231)2020-02-25 19:07:00 Test Item Value Reference Range Interpretation Comments NA (test code = 135 mmol/L 135-145 0741767559) K (test code = 3.7 mmol/L 3.5-5 3902934192) CL (test code = 106 mmol/L 98-108 3441235439) CO2 TOTAL (test code = 21 mmol/L 23-31 L 2347780118) AGAP (test code = 2-16 4347863673) BUN (test code = 9 mg/dL 7-23 7031480552) GLUCOSE (test code = 116 mg/dL 70-110 H 9437877447) CREATININE (test code = 0.57 mg/dL 0.5-1.04 5487386200) TOTAL BILI (test code = 0.7 mg/dL 0.1-1.4 1640584435) CALCIUM (test code = 9.4 mg/dL 8.6-10.6 4299757664) T PROTEIN (test code = 8.2 g/dL 6.3-8.2 6988061591) ALBUMIN (test code = 4.6 g/dL 3.5-5 4741247441) ALK PHOS (test code = 116 U/L 34-122 6888603391) ALTv (test code = 67 U/L 5-35 H 1742-6) AST(SGOT) (test code = 70 U/L 13-40 H 3135535121) eGFR Calculation mL/min/1.73m2 (Non-) (test code = 8194009511) eGFR Calculation mL/min/1.73m2 () (test code = 1581446235) PAULA (test code = PAULA) Association of [...] tests). Lab Interpretation Abnormal (test code = 03170-8) [facility] WITH [id number] 18:51:00 Test Item Value Reference Range Interpretation Comments WBC (test code = See_Comment [Automated message] 6690-2) The system [employer] generated this result transmitted ref erence range: 4.30 - 1 1.10 10*3/?L. The re ference range was not u sed to interpret this result as normal/abnor mal. RBC (test code = See_Comment [Automated message] 079-8) The system [employer] generated this result transmitted ref erence range: [...] RDW-SD (test code 41.6 fL 39-49.9 = 47377-0) RDW-CV (test code 12.6 % 12-15.5 = 788-0) PLT (test code = See_Comment [Automated message] 777-3) The system [employer] generated this result transmitted ref erence range: 166 - 35 8 10*3/?L. The re ference range was not u sed to interpret this result as normal/abnor mal. MPV (test code = 10.0 fL 9.5-12.9 85507-5) NRBC/100 WBC (test See_Comment [Automat ed message] code = 5915808977) The syste m which generated this result transmitted ref erence range: 0.0 - 10 .0 /100 WBCs. The refer ence range was not u sed to interpret this result as normal/abnor mal. NRBC x10^3 (test <0.01 See_Comment [Automated message] code = 2421535544) The syste m which generated this result transmitted ref erence range: 10*3/?L. The reference range was not used to interpr et this result as normal/abnormal . GRAN MAT (NEUT) % 63.1 % (test code = 770-8) IMM GRAN % (test 0.40 % code = 5753473183) LYMPH % (test code 27.0 % = 736-9) MONO % (test code 8.0 % = 5905-5) EOS % (test code = 0.6 % 713-8) BASO % (test code 0.9 % = 706-2) GRAN MAT 5.02 10*3/uL 1.88-7.09 x10^3(ANC) (test code = 5552007013) IMM GRAN x10^3 0.03 10*3/uL 0-0.06 (test code = 3998390136) LYMPH x10^3 (test 2.15 10*3/uL 1.32-3.29 code = 731-0) MONO x10^3 (test 0.64 10*3/uL 0.33-0.92 code = 742-7) EOS x10^3 (test 0.05 10*3/uL 0.03-0.39 code = 711-2) BASO x10^3 (test 0.07 10*3/uL 0.01-0.07 code = 704-7) [facility]CT [facility]/PELVIS W/EDHFKVST2729-01-26 18:17:32NPO 4 hours. Do not withhold medsProcedure: [...] PMDictated By: MIGUEL GILMANDate: 08/22/2019 18:11[facility] , [id number] 17:09:00 Test Item Value Reference Range Interpretation Comments (Urine) (test code = Negative PREGU) [facility] [place] [facility] URINALYSIS WITHOUT [id number] 17:08:00 Test Item Value Reference Range Interpretation Comments Color (test code = UCOLR) Light yellow Lt. Yellow A Clarity (test code = UCLAR) Clear Glucose (test code = UGLUC) Negative Negative N Bilirubin (test code = UBILI) Negative Negative N Ketones (test code = UKET) Negative Negative N Specific Marion (test code = 1.015 1.005-1.030 A USPGR) Blood (test code = UBLD) Negative Negative N PH (test code = UPH) 5.5 4.5-8.0 A Protein (test code = UPROT) Negative Negative N Urobilinogen (test code = U 0.2 >0.2 N UROB) Nitrite (test code = UNITR) Negative Negative N Leukocyte Esterase (test code = Negative Negative N ULEUK) [facility]MP[facility] 16:39:00 Test Item Value Reference [...] ( 4 - SerumAlbumin)] EGFR if >60 Fijian (test code mL/min/1.73m\\ = EGFRAA) S\\2 EGFR if Non- >60 Estimate d Glomerular Fijian (test code mL/min/1.73m\\ Filtrat ion Rate (eGFR) [...] and management of c hronic kidney failure. [facility]XI0490-34-27 16:39:00 Test Item Value Reference Range Interpretation Comments Lipase (test code = LIPA) 178 U/L 73-393 [facility] CBC WITH AUTO [id number] 16:16:00 Test Item Value Reference Range Interpretation [...] (test code = IG%) 0.4 % 0.0-0.4 [facility]XR EL[facility]OW [facility] 3 [id number] 17:59:10Procedure: XR ELBOW MIN 3 VIEWSOrder Date: 08/19/2019 2:54 PMOrdering Provider: FIONA Vincentinical Indication: [id number]: Pain of left elbow jointComparison: NoneFINDINGS:There is [...] 08/19/201917:52 [facility] ABDOMEN PELVIS W [id number] 01:59:29 No acute intra- abdominal process. 3.2 [...] reviewed this study and agree with the abovereport.[facility]anoPOMD Test, Urine 2019-07-13 00:29:00 Test Item Value Reference Range Interpretation Comments POCT PREG (test code = 1605) NEGATIVE Lab Interpretation (test code = Normal 32290-2) [facility] PlanoUrinalysis2020-01-17 23:44:00 Test Item Value Reference Range Interpretation Comments APPEARANCE (test code = Clear Clear 8957590275) COLOR (test code = Straw Yellow A 6773946424) PH (test code = 4.8-8.0 4271327085) SP GRAVITY (test code = 1.003-1.030 1124643915) GLU U QUAL (test code = Normal Normal 9613119850) BLOOD (test code = Negative Negative 0134766132) KETONES (test code = Negative Negative 4938868256) PROTEIN (test code = Negative Negative 2887-8) UROBILIN (test code = Normal Normal 7751297671) BILIRUBIN (test code = Negative Negative 7810906307) NITRITE (test code = Negative Negative 7771188115) LEUK JONATHON (test code = Negative Negative 0912052861) RBC/HPF (test code = See_Comment [Autom ated message] 6824600798) The system [employer] generated this result transmitted ref erence range: 0 - 3 HP F. The reference range was not used to int erpret this result as normal/abnormal . WBC/HPF (test code = See_Comment [Autom ated message] 6681806837) The system [employer] generated this result transmitted ref erence range: 0 - 5 HP F. The reference range was not used to int erpret this result as normal/abnormal . BACTERIA (test code = Negative Negative 1046701052) SQ EPITH (test code = <1 See_Comment [Auto mated message] 5485038251) The system [employer] generated this result transmitted ref erence range: <=2 HPF. The reference range was not used to int erpret this result as normal/abnormal . Lab Interpretation (test Abnormal code = 93056-6) [facility]. METABOLIC PANEL (89820)2019-07-12 23:30:00 Test Item Value Reference Range Interpretation Comments NA (test code = 141 mmol/L 135-145 8742277851) K (test code = 3.5 mmol/L 3.5-5 4528356948) CL (test code = 105 mmol/L 98-108 3087891949) CO2 TOTAL (test code = 27 mmol/L 23-31 2183523704) AGAP (test code = 2-16 2728807500) BUN (test code = 9 mg/dL 7-23 8882708058) GLUCOSE (test code = 80 mg/dL 70-110 4623216496) CREATININE (test code = 0.50 mg/dL 0.5-1.04 0453191254) TOTAL BILI (test code = 0.4 mg/dL 0.1-1.2 1740299446) CALCIUM (test code = 8.7 mg/dL 8.6-10.6 4810894157) T PROTEIN (test code = 7.4 g/dL 6.3-8.2 0783347473) ALBUMIN (test code = 4.2 g/dL 3.5-5 4009896593) ALK PHOS (test code = 90 U/L 34-122 2436393770) ALTv (test code = 157 U/L 5-35 H 1742-6) AST(SGOT) (test code = 151 U/L 13-40 H 7485147291) eGFR Calculation mL/min/1.73m2 (Non-) (test code = 0348102201) eGFR Calculation mL/min/1.73m2 () (test code = 3294173689) PAULA (test code = PAULA) Association of [...] tests). Lab Interpretation Abnormal (test code = 78530-2) [facility] PlanoLipase [id number] 23:30:00 Test Item Value Reference Range Interpretation Comments LIPASE (test code = 0711264759) 86 U/L 0-220 Lab Interpretation (test code = Normal 92792-7) [facility]anoCB WITH [id number] 23:16:00 Test Item Value Reference Range Interpretation Comments WBC (test code = See_Comment [Automated 5769-2) message] The sy stem which generated this result transmitted reference range : 4.30 - 11.10 10*3/?L. The reference range was not used to interpret this result as normal/abnormal . RBC (test code = See_Comment [Automated 748-8) message] The sy stem which generated this [...] RDW-SD (test code = 45.1 fL 39-49.9 11461-8) RDW-CV (test code = 13.3 % 12-15.5 788-0) PLT (test code = See_Comment [Automated 777-3) message] The sy stem which generated this result transmitted reference range : 166 - 358 10*3/ ?L. The reference r micah was not used to interpret this result as normal/abnormal . MPV (test code = 9.3 fL 9.5-12.9 L 94128-9) NRBC/100 WBC (test See_Comment [Automat ed code = 6711934170) message] The system which generated this result transmitted reference range : 0.0 - 10.0 /100 WBCs. The refer ence range was not u sed to interpret th is result as normal/abnormal . NRBC x10^3 (test code <0.01 See_Comment [Auto mated = 9738971204) message] The s ystem which generated this result transmitted reference range : 10*3/?L. The reference range was not used to interpret this result as normal/abnormal . GRAN MAT (NEUT) % 52.8 % (test code = 770-8) IMM GRAN % (test code 0.20 % = 2352079916) LYMPH % (test code = 36.2 % 736-9) MONO % (test code = 7.3 % 5905-5) EOS % (test code = 2.4 % 713-8) BASO % (test code = 1.1 % 706-2) GRAN MAT x10^3(ANC) 2.47 10*3/uL 1.88-7.09 (test code = 4026679269) IMM GRAN x10^3 (test <0.03 0-0.06 code = 7422492070) LYMPH x10^3 (test code 1.69 10*3/uL 1.32-3.29 = 731-0) MONO x10^3 (test code 0.34 10*3/uL 0.33-0.92 = 742-7) EOS x10^3 (test code = 0.11 10*3/uL 0.03-0.39 711-2) BASO x10^3 (test code 0.05 10*3/uL 0.01-0.07 = 704-7) Lab Interpretation Abnormal (test code = 62788-0) [facility] 1 [id number] 16:58:56* * * * * * * * ORIGINAL REPORT * * * * * * * *EXAM: XR CHEST 1 VW HISTORY: Hx of cardiomegaly and angina, recent ED visit for CP, states thather heart is? COMPARISON: None. FINDINGS: The heart and great vessels are normal and the lungs are well expanded andclear.[facility], Radiant Results Inft User - 03/06/2019 11:59 AM CDT* * * * * * * * ORIGINAL REPORT * * * * * * * *EXAM: XR CHEST 1 VWHISTORY: Hx of cardiomegaly and angina, recent ED visit for CP, states thather heart is COMPARISON: None.FINDINGS:Theheart and great vessels are normal and the lungs are well expanded andclear.[facility]
[2022-08-04] MEDS ORDERED: NITROGLYCERIN 0.4 MG/TAB SL ONE (11:17)
[2022-08-04 11:35] LABS: Absolute Lymphocytes (CBC) 1.3 K/uL (0.7-4.9); Hematocrit 44.4 % (36.0-45.0); MCV 87.2 fL (80-100); MPV 7.8 fL (7.6-11.3); RBC Red Blood Cell Count 5.09 M/uL (3.86-4.86)
--- NOTE | 2022-08-04 11:49 | RAD REPORT ---
EXAM DESCRIPTION: RAD - Chest Single View - 08/04/2022 11:37 am CLINICAL HISTORY: CHEST PAIN Chest pain. COMPARISON: Chest Single View dated 07/30/2022; Chest Single View dated 07/14/2022; Chest Single View d ated 09/24/2021; Chest Single View dated 08/29/2021 FINDINGS: Portable technique limits examination quality. The lungs are grossly clear. The heart is normal in size. No displaced fractures. IMPRESSION: No acute intrathoracic process suspected.
[2022-08-04] MEDS ORDERED: FENTANYL CITR 100 MCG/2 ML ONE ×2 (11:55→14:10)
[2022-08-04 12:00] LABS: Albumin 3.7 g/dL (3.4-5.0); Bilirubin Total 0.2 mg/dL (0.2-1.0); Potassium 3.2 mmol/L (3.5-5.1); Protein, Total 8.1 g/dL (6.4-8.2); Troponin High Sensitivity 14.4 pg/mL (<58.9)
--- NOTE | 2022-08-04 12:47 | ER ---
Nurse's Notes [facility] Name: Denise Wick Age: 42 yrs Sex: Female : 1980 Arrival Date: 08/04/2022 Time: 10:48 Bed 19 Private MD: Diagnosis: Chest pain, unspecified Presentation: 08/04 10:48 Chief complaint: Patient states: L CP that radiates into neck and L arm for 1 day. ll1 Coronavirus screen: Vaccine status: Patient reports being unvaccinated. Client denies travel out of the [place] in the last 14 days. At this time, the client does not indicate any symptoms associated with coronavirus-19. Ebola Screen: Patient denies travel to an Ebola-affected area in the 21 days before illness onset. Initial Sepsis Screen: Does the patient meet any 2 criteria? No. Patient's initial sepsis screen is negative. Does the patient have a suspected source of infection? No. Patient's initial sepsis screen is negative. Risk Assessment: Do you want to hurt yourself or someone else? Patient reports no desire to harm self or others. Onset of symptoms was August 04, 2022. 10:48 Method Of Arrival: EMS ll1 10:48 Acuity: CHRISTINA 3 ll1 10:50 Chief complaint: EMS states: VSS, aspirin 324 MG PO given en route. ll1 Triage Assessment: 10:51 General: Appears uncomfortable, Behavior is calm, cooperative, appropriate for age. ll1 Pain: Complains of pain in chest Quality of pain is described as aching. Neuro: Reports dizziness. Cardiovascular: Reports chest pain. Respiratory: No deficits noted. GI: No deficits noted. 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 - Social history:: Smoking status: Patient reports the use of cigarette tobacco products, smokes one pack cigarettes per day. - Family history:: not pertinent. Screenin:51 Abuse screen: Denies threats or abuse. Nutritional screening: No deficits noted. ll1 Tuberculosis screening: No symptoms or risk factors identified. 17:32 [facility] ED Fall Risk Assessment (Adult) Score/Fall Risk Level 0 - 2 = Low Risk ll1 Oriented to surroundings, Maintained a safe environment, Educated pt \T\ family on fall prevention, incl call for assistance when getting out of bed, Hourly rounding (assess needs \T\ fall precautionary measures) done. Assessment: 11:02 Reassessment: No changes from previously documented assessment. Dr. Mina at . ll1 11:18 Reassessment: No changes from previously documented assessment. Patient and/or family ll1 updated on plan of care and expected duration. Pain level reassessed. Patient is alert, oriented x 3, equal unlabored respirations, skin warm/dry/pink. 11:34 Reassessment: No changes from previously documented assessment. Patient and/or family ll1 updated on plan of care and expected duration. Pain level reassessed. Patient is alert, oriented x 3, equal unlabored respirations, skin warm/dry/pink. 12:02 Reassessment: No changes from previously documented assessment. Patient and/or family ll1 updated on plan of care and expected duration. Pain level reassessed. 13:10 Reassessment: No changes from previously documented assessment. Patient and/or family ll1 updated on plan of care and expected duration. Pain level reassessed. 14:10 Reassessment: No changes from previously documented assessment. Patient and/or family ll1 updated on plan of care and expected duration. Pain level reassessed. Patient is alert, oriented x 3, equal unlabored respirations, skin warm/dry/pink. 14:36 Reassessment: No changes from previously documented assessment. Patient and/or family ll1 updated on plan of care and expected duration. Pain level reassessed. Dr. Juan MD at . 15:30 Reassessment: No changes from previously documented assessment. Patient and/or family ll1 updated on plan of care and expected duration. Pain level reassessed. Patient is alert, oriented x 3, equal unlabored respirations, skin warm/dry/pink. 16:45 Reassessment: No changes from previously documented assessment. Patient and/or family ll1 updated on plan of care and expected duration. Pain level reassessed. Patient is alert, oriented x 3, equal unlabored respirations, skin warm/dry/pink. 17:25 Reassessment: No changes from previously documented assessment. Patient and/or family ll1 updated on plan of care and expected duration. Pain level reassessed. Patient is alert, oriented x 3, equal unlabored respirations, skin warm/dry/pink. 17:32 Pain: Pain radiates to left arm Pain began suddenly. ll1 Vital Signs: 10:48 BP 154 / 98; Pulse 105; Resp 18; Temp 98.5; Pulse Ox 97% ; Weight 72.57 kg; Height 5 ll1 ft. 6 in. (167.64 cm); 12:02 BP 150 / 80; Pulse 87; Resp 16; Pulse Ox 97% on R/A; ll1 13:18 BP 152 / 75; Pulse 60; Resp 17; Pulse Ox 98% on R/A; ll1 15:00 BP 153 / 99; Pulse 71; Resp 18; Pulse Ox 99% ; ll1 17:24 BP 126 / 64; Pulse 84; Resp 17; Pulse Ox 98% ; ll1 10:48 Body Mass Index 25.82 (72.57 kg, 167.64 cm) ll1 ED Course: 10:48 Patient arrived in ED. ll1 10:49 Triage completed. ll1 10:50 Arm band placed on Patient placed in an exam room, on a stretcher, in a wheelchair. ll1 10:50 Inserted saline lock: 20 gauge in right antecubital area, using aseptic technique. ll1 Blood collected. 10:52 Patient has correct armband on for positive identification. Bed in low position. Call ll1 light in reach. Side rails up X2. Client placed on continuous cardiac and pulse oximetry monitoring. NIBP monitoring applied. body masker on. 10:52 No provider procedures requiring assistance completed. Patient maintains SpO2 ll1 saturation greater than 95% on room air. 10:54 Jama Mina MD is Attending Physician. rt 11:02 Denisse Marin, DRISS is Primary Nurse. ll1 11:39 Chest Single View XRAY In Process Unspecified. EDMS 12:46 Navneet Martinez is Hospitalizing Provider. rt 13:11 SARS RAPID Sent. ll1 17:32 Patient admitted, IV remains in place. ll1 Administered Medications: 11:18 Not Given (Patient Refused): Nitroglycerin 0.4 mg Sublingual once; every five minute if ll1 needed x3 12:00 Drug: fentaNYL (PF) 50 mcg {Note: pain 10/10, rass 0.} Route: IVP; Site: left ll1 antecubital; 13:11 Follow up: Response: No adverse reaction; Pain is decreased; RASS: Alert and Calm (0) ll1 14:12 Drug: fentaNYL (PF) 50 mcg {Note: rass 0, pain 9/10.} Route: IVP; Site: right ll1 antecubital; 15:07 Follow up: Response: No adverse reaction; Pain is unchanged, physician notified; RASS: ll1 Alert and Calm (0) Medication: 10:52 VIS not applicable for this client. ll1 Outcome: 12:46 Decision to Hospitalize by Provider. rt 17:32 Admitted to Tele accompanied by tech, via wheelchair, room 209, with chart, Report ll1 called to DRISS Davidson on 17:32 Condition: stable 17:32 Instructed on the need for admit. 18:07 Patient left the ED. ll1 Signatures: Dispatcher [employer] EDDenisse Pena RN RN ll1 Jama Mina MD MD rt Corrections: (The following items were deleted from the chart) 14:37 14:36 Reassessment: No changes from previously documented assessment. Patient and/or ll1 family updated on plan of care and expected duration. Pain level reassessed. ll1 16:39 10:30 Inserted saline lock: 20 gauge in left antecubital area, using aseptic technique. ll1 Blood collected. ll1 17:24 10:50 Inserted saline lock: 20 gauge in left antecubital area, using aseptic technique. ll1 Blood collected. ll1
--- NOTE | 2022-08-04 12:47 | EDPHYS ---
Physician Documentation [facility] Name: Denise Wick Age: 42 yrs Sex: Female : 1980 Arrival Date: 08/04/2022 Time: 10:48 Bed 19 Private MD: ED Physician Jama Mina HPI: 08/04 11:13 This 42 yrs old Female presents to ER via EMS with complaints of Chest Pain. rt 11:13 The patient or guardian reports chest pain that is located primarily in the substernal rt area. Onset: this morning. The pain radiates to Associated signs and symptoms: Pertinent positives: Sweating, dizziness, shortness of breath. The chest pain is described as aching. Duration: The patient or guardian reports a single episode. Modifying factors: The symptoms are alleviated by nothing. Severity of pain: At its worst the pain was moderate. The patient has experienced similar episodes in the past, but today's symptoms are worse, more painful. 11:30 EMS care prior to arrival includes: aspirin. 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 - Social history:: Smoking status: Patient reports the use of cigarette tobacco products, smokes one pack cigarettes per day. - Family history:: not pertinent. ROS: 11:13 Constitutional: Negative for fever, chills, and weight loss, Eyes: Negative for injury, rt pain, redness, and discharge, Abdomen/GI: Negative for abdominal pain, nausea, vomiting, diarrhea, and constipation, MS/Extremity: Negative for injury and deformity, Psych: Negative for depression, anxiety, suicide ideation, homicidal ideation, and hallucinations. 11:13 Cardiovascular: Positive for chest pain, Negative for edema. 11:13 Respiratory: Positive for shortness of breath, Negative for cough. 11:13 Skin: Positive for Sweating, negative for rash. 11:13 Neuro: Positive for dizziness, Negative for altered mental status. Exam: 11:13 Constitutional: This is a well developed, well nourished patient who is awake, alert, rt and in no acute distress. Head/Face: Normocephalic, atraumatic. Eyes: Pupils equal round and reactive to light, extra-ocular motions intact. Lids and lashes normal. Conjunctiva and sclera are non-icteric and not injected. Cornea within normal limits. Periorbital areas with no swelling, redness, or edema. Chest/axilla: Normal chest wall appearance and motion. Nontender with no deformity. No lesions are appreciated. Cardiovascular: Regular rate and rhythm with a normal S1 and S2. No gallops, murmurs, or rubs. Normal PMI, no JVD. No pulse deficits. Respiratory: Lungs have equal breath sounds bilaterally, clear to auscultation and percussion. No rales, rhonchi or wheezes noted. No increased work of breathing, no retractions or nasal flaring. Abdomen/GI: Soft, non-tender, with normal bowel sounds. No distension or tympany. No guarding or rebound. No evidence of tenderness throughout. Skin: Warm, dry with normal turgor. Normal color with no rashes, no lesions, and no evidence of cellulitis. MS/ Extremity: Pulses equal, no cyanosis. Neurovascular intact. Full, normal range of motion. Neuro: Awake and alert, GCS 15, oriented to person, place, time, and situation. Cranial nerves II-XII grossly intact. Motor strength 5/5 in all extremities. Sensory grossly intact. Cerebellar exam normal. Normal gait. Psych: Awake, alert, with orientation to person, place and time. Behavior, mood, and affect are within normal limits. 11:18 ECG was reviewed by the Attending Physician. rt Vital Signs: 10:48 BP 154 / 98; Pulse 105; Resp 18; Temp 98.5; Pulse Ox 97% ; Weight 72.57 kg; Height 5 ll1 ft. 6 in. (167.64 cm); 12:02 BP 150 / 80; Pulse 87; Resp 16; Pulse Ox 97% on R/A; ll1 13:18 BP 152 / 75; Pulse 60; Resp 17; Pulse Ox 98% on R/A; ll1 15:00 BP 153 / 99; Pulse 71; Resp 18; Pulse Ox 99% ; ll1 17:24 BP 126 / 64; Pulse 84; Resp 17; Pulse Ox 98% ; ll1 10:48 Body Mass Index 25.82 (72.57 kg, 167.64 cm) ll1 MDM: 10:59 Patient medically screened. rt 12:46 Differential diagnosis: acute myocardial infarction, acute pericarditis, pneumonia, rt pneumothorax, pulmonary embolus. HEART Score: History: Highly Suspicious (2), ECG: Normal (0), Age: < or = 45 years (0), Risk Factors: > or = 3 Risk factors for atherosclerotic disease (2), Troponin: < or = 1 x Normal Limit (0), Total Score = 4. The patient was not given aspirin in the Emergency Department. Patient reports taking aspirin within the past 24 hours. Data reviewed: vital signs, nurses notes, old medical records, lab test result(s), EKG, radiologic studies. Consideration of Admission/Observation Patient was admitted/placed on observation. Management of patient was discussed with the following: Hospitalist: Agrees to admit. I considered the following discharge prescriptions or medication management in the emergency department Medications were administered in the Emergency Department. See MAR. Independent interpretation of the following test(s) in the Emergency Department EKG: See my EKG interpretation above X-Ray: My interpretation is No consolidation. Test considered but Not performed: CT: Low suspicion for PE, TAD, CT scan not indicated. External Records Reviewed: Inpatient record: Reviewed prior AMA from hospital. Care significantly affected by the following Social Determinants of Health: Poor access to healthcare and/or lack of insurance, Misuse of alcohol and/or drugs. Response to treatment: the patient's symptoms have mildly improved after treatment. 08/04 11:11 Order name: CBC with Diff; Complete Time: 11:46 rt 08/04 11:11 Order name: CMP; Complete Time: 12:02 rt 08/04 11:11 Order name: Troponin High Sensitivity; Complete Time: 12:02 rt 08/04 11:11 Order name: BNP; Complete Time: 12:02 rt 08/04 12:55 Order name: SARS RAPID rt 08/04 15:05 Order name: Basic Metabolic Panel EDMS 08/04 15:05 Order name: Basic Metabolic Panel EDMS 08/04 15:05 Order name: CBC with Automated Diff EDMS 08/04 15:05 Order name: CBC with Automated Diff EDMS 08/04 15:05 Order name: Lipid Profile EDMS 08/04 15:05 Order name: Lipid Profile EDMS 08/04 15:05 Order name: Troponin High Sensitivity EDMS 08/04 15:05 Order name: Troponin High Sensitivity EDMS 08/04 15:05 Order name: Troponin High Sensitivity EDMS 08/04 11:11 Order name: EKG; Complete Time: 11:12 rt 08/04 11:11 Order name: EKG - Nurse/Tech; Complete Time: 11:12 rt 08/04 11:11 Order name: Chest Single View XRAY; Complete Time: 11:59 rt 08/04 15:05 Order name: Heart Healthy EDMS 08/04 15:05 Order name: Echo with Doppler EDMS 08/04 15:05 Order name: Echo with Doppler EDMS 08/04 15:05 Order name: Troponin High Sensitivity EDMS EC:18 Rate is 81 beats/min. Rhythm is regular, Normal Sinus Rhythm with No ectopy. QRS Hernando rt is Normal. ID interval is normal. QRS interval is normal. QT interval is normal. No Q waves. T waves are Normal. No ST changes noted. Clinical impression: Normal ECG. Interpreted by me. Administered Medications: 11:18 Not Given (Patient Refused): Nitroglycerin 0.4 mg Sublingual once; every five minute if ll1 needed x3 12:00 Drug: fentaNYL (PF) 50 mcg {Note: pain 10/10, rass 0.} Route: IVP; Site: left ll1 antecubital; 13:11 Follow up: Response: No adverse reaction; Pain is decreased; RASS: Alert and Calm (0) ll1 14:12 Drug: fentaNYL (PF) 50 mcg {Note: rass 0, pain 9/10.} Route: IVP; Site: right ll1 antecubital; 15:07 Follow up: Response: No adverse reaction; Pain is unchanged, physician notified; RASS: ll1 Alert and Calm (0) Disposition Summary: 08/04/22 12:46 Hospitalization Ordered Hospitalization Status: Observation rt Provider: Navneet Martinez rt Location: Telemetry/MedSurg (observation) rt Condition: Stable rt Problem: an ongoing problem rt Symptoms: are unchanged rt Bed/Room Type: Standard rt Room Assignment: 209(02/09/23 17:00) dw Diagnosis - Chest pain, unspecified rt Forms: - Medication Reconciliation Form rt - SBAR form rt Signatures: Dispatcher [employer] Ely Lorenzana RN RN dw Denisse Marin RN RN ll1 Jama Mina MD MD rt Corrections: (The following items were deleted from the chart) 17:00 12:46 rt dw
[2022-08-04 13:29] LABS: SARS-CoV-2 Antigen Rapid Res Negative (Negative)
--- NOTE | 2022-08-04 15:09 | P.HP ---
Certification for Inpatient Patient admitted to: Observation With expected LOS: <2 Midnights Patient will require the following post-hospital care: None Practitioner: I am a practitioner with admitting privileges, knowledge of patient current condition, hospital course, and medical plan of care. Services: Services provided to patient in accordance with Admission requirements found in Title 42 Section 412.3 of the Code of Federal Regulations Patient History Date of Service: 08/04/22 Reason for admission: Chest pain History of Present Illness: 42-year-old woman with a history of hypertension, hyperlipidemia, hypothyroidism, seizure disorder, anxiety disorder presented to the emergency department with a complaint of chest pain of sudden onset, which woke her up from sleep this morning. Pain rated at severe, radiating to the neck and jaw and the left arm, associated with diaphoresis and palpitation. Patient states that she feels her heart fluttering intermittently. She was hospitalized in September last year for chest pain and diagnosed with unstable angina. Patient signed out AGAINST MEDICAL ADVICE. She stated she experienced similar episodes where her troponin was elevated but she was told it is not due to a heart attack. This is her third ED visit this week for chest pain. She refused nitroglycerin stating that she does not tolerate it and it exacerbates her migraine. She never had a cardiac cath or stress test done before. Her EKG in the ED demonstrated sinus rhythm, no ischemic changes. Initial troponin negative. Chest x-ray shows no acute disease. Noted bradycardia and PVCs on a phototypesetting equipment monitor. Patient is placed under observation for ACS rule out Allergies codeine Allergy (Verified 04/03/20 10:43) Itching/Hives/Rash Home Medications: Alprazolam [Xanax] 1 tab PO DAILY 04/03/20 ALPRAZolam [Xanax] 0.5 mg PO TID PRN #30 tab 03/17/21 Aspirin [Aspirin EC 81 MG] 81 mg PO DAILY #30 tablet. 03/17/21 Atorvastatin Calcium [Lipitor] 40 mg PO DAILY #30 tablet 03/17/21 Gabapentin 300 mg PO Q12H #60 capsule 03/17/21 Hydrocodone 5/APAP 325 [Martin 5/325] 1 tab PO Q6H PRN #30 tab 03/17/21 Hydrocodone/Acetaminophen [Vicodin Hp 10-325 mg Tablet] 1 tab PO BID #30 09/22/21 Levothyroxine [Synthroid*] 1 tab PO DAILY #30 03/17/21 Metoprolol Tartrate [Lopressor*] 50 mg PO BID #60 tab 03/17/21 Nitroglycerin [Nitrostat] 1 tab PO SEECOM PRN #100 03/17/21 carBAMazepine [Tegretol] 1 tab PO BID #60 03/17/21 carBAMazepine [Tegretol] 200 mg PO BID #60 tab 03/17/21 hydroCHLOROthiazide [Hydrochlorothiazide*] 12.5 mg PO DAILY #30 cap 03/17/21 - Past Medical/Surgical History -: Hypertension -: Hypothyroidism -: Hyperlipidemia -: seizures -: c section -: tubal ligation Psychosocial/ Personal History: Lives with family - Family History Father -: Heart disease Notes: NC x 2 - Social History Smoking Status: Current every day smoker (Half a pack a day) Alcohol use: No CD- Drugs: No Caffeine use: Yes Review of Systems Other: She denied any fever or abdominal pain, or headache. She denied any fever or nasal congestion or sore throat. Except as documented, all other systems reviewed and negative. Physical Examination - Physical Exam General: Alert, In no apparent distress, Oriented x3 HEENT: Atraumatic, PERRLA, Mucous membr. moist/pink, Sclerae nonicteric Neck: Supple, JVD not distended, No Thyromegaly Respiratory: Clear to auscultation bilaterally, Normal air movement Cardiovascular: No edema, Normal S1 S2, No murmurs, Irregular heart rate/rhythm Gastrointestinal: Normal bowel sounds, Soft and benign, Non-distended, No tenderness Musculoskeletal: No swelling, No tenderness Integumentary: No rashes, No cyanosis Neurological: Normal speech, Normal strength at 5/5 x4 extr, Cranial nerves 3-12 intact Lymphatics: No axilla or inguinal lymphadenopathy - Studies Laboratory Data (last 24 hrs) 08/04/22 11:23: Sodium 139, Potassium 3.2 L, BUN 10, Creatinine 0.73, Glucose 110 H, Total Bilirubin 0.2, AST 22, ALT 33, Alkaline Phosphatase 66 08/04/22 11:23: WBC 4.90, Hgb 14.8, Hct 44.4, Plt Count 327 Assessment and Plan - Problems (Diagnosis) (1) Hypothyroidism Current Visit: Yes Status: Acute (2) Seizure disorder Current Visit: Yes Status: Acute (3) Anxiety disorder Current Visit: Yes Status: Acute (4) Chest pain, rule out acute myocardial infarction Current Visit: No Status: Acute (5) Dyslipidemia Current Visit: No Status: Chronic (6) Hypertension Current Visit: No Status: Chronic Qualifiers: Hypertension type: primary hypertension Qualified Code(s): I10 - Essential (primary) hypertension - Plan Place under observation. Cardiac monitoring to further assess cardiac rhythm. Trend troponin Obtain echocardiogram Cardiology consult Aspirin daily Check lipid profile Check TSH and continue home dose Synthroid. Monitor and correct electrolytes. Reconcile and continue other home medications for anxiety disorder and seizure disorder. Supportive measures with pain management as needed. - Advance Directives Does patient have a Living Will: No Does patient have a Durable POA for Healthcare: No
[2022-08-04] MEDS: ENOXAPARIN 40 MG/0.4 ML SQ SCH (16:00)
[2022-08-04] MEDS ORDERED: POTASSIUM CL SA 10 MEQ TAB PO ONE ×2 (16:00→16:54)
[2022-08-04 16:36] VITALS: BMI 25.8
[2022-08-04] MEDS ORDERED: ENOXAPARIN 40 MG/0.4 ML SQ ONE (16:54)
[2022-08-04] MEDS ORDERED: MORPHINE 2 MG/ML SYR ONE (16:54)
[2022-08-04] MEDS: MORPHINE 2 MG/ML SYR IV PRN ×2 (17:00→21:27)
[2022-08-04 20:08] LABS: Troponin High Sensitivity 18.8 pg/mL (<58.9)
[2022-08-04 22:17] VITALS: O2SAT 97
[2022-08-05] MEDS: MORPHINE 2 MG/ML SYR IV PRN ×4 (01:26→14:24)
[2022-08-05] MEDS: NICOTINE 21 MG/PAT TD SCH ×2 (01:27→08:55)
[2022-08-05 03:44] LABS: Absolute Lymphocytes (CBC) 1.7 K/uL (0.7-4.9); Hematocrit 39.4 % (36.0-45.0); Lymphocytes % 32.4 % (15.3-44.8); MCV 86.8 fL (80-100); RBC Red Blood Cell Count 4.54 M/uL (3.86-4.86)
[2022-08-05 03:54] LABS: Potassium 3.7 mmol/L (3.5-5.1)
[2022-08-05] MEDS: ACETAMINOPHEN 500 MG TAB PO PRN ×2 (08:51→13:31)
[2022-08-05] MEDS: ENOXAPARIN 40 MG/0.4 ML SQ SCH (08:51)
[2022-08-05] MEDS ORDERED: ALPRAZOLAM 0.25 MG TABLET PO SCH (09:00)
[2022-08-05] MEDS ORDERED: LEVOTHYROXINE SOD 0.05 MG TABLET PO SCH (09:00)
[2022-08-05] MEDS ORDERED: carBAMazepine 200 MG TAB PO SCH (09:00)
[2022-08-05] MEDS ORDERED: ASPIRIN EC 81 MG TAB PO SCH (09:00)
[2022-08-05 17:32] VITALS: BP 114/72; TEMP 98.6
--- NOTE | 2022-08-05 17:32 | P.PN ---
Subjective Date of Service: 08/05/22 Chief Complaint: Chest pain Patient reports intermittent chest pain and palpitation. She denies shortness of breath. Physical Examination - Vital Signs Temperature: 98.6 F Blood Pressure: 114/72 Pulse: 67 Respirations: 16 Pulse Ox (%): 100 Assessment And Plan - Current Problems (Diagnosis) (1) Hypothyroidism Current Visit: Yes Status: Acute (2) Seizure disorder Current Visit: Yes Status: Acute (3) Anxiety disorder Current Visit: Yes Status: Acute (4) Chest pain, rule out acute myocardial infarction Current Visit: No Status: Acute (5) Dyslipidemia Current Visit: No Status: Chronic (6) Hypertension Current Visit: No Status: Chronic Qualifiers: Hypertension type: primary hypertension Qualified Code(s): I10 - Essential (primary) hypertension - Plan Troponin trended negative. ACS ruled out. Patient with intermittent bradycardia and PVCs. Continue telemetry Echocardiogram is done. Follow-up result Patient seen by cardiology. Her cause of chest pain is unclear. Trial of Toradol for musculoskeletal pain Aspirin daily Start Lipitor for hyperlipidemia.
[2022-08-05] MEDS ORDERED: KETOROLAC 30 MG/ML INJ IV PRN (17:36)
--- NOTE | 2022-08-05 17:47 | P.DS ---
Admission Date: 08/04/22 Discharge Date: 08/05/22 Disposition: AMA-LEFT AGAINST MEDICAL ADVIC Reason for Admission: Chest pain - Problems (1) Hypothyroidism Status: Acute (2) Seizure disorder Status: Acute (3) Anxiety disorder Status: Acute (4) Chest pain, rule out acute myocardial infarction Status: Acute (5) Dyslipidemia Status: Chronic (6) Hypertension Status: Chronic Qualifiers: Hypertension type: primary hypertension Qualified Code(s): I10 - Essential (primary) hypertension Brief History of Present Illness: 42-year-old woman with a history of hypertension, hyperlipidemia, hypothyroidism, seizure disorder, anxiety disorder presented to the emergency department with a complaint of chest pain of sudden onset, which woke her up from sleep this morning. Pain rated at severe, radiating to the neck and jaw and the left arm, associated with diaphoresis and palpitation. Patient states that she feels her heart fluttering intermittently. She was hospitalized in September last year for chest pain and diagnosed with unstable angina. Patient signed out AGAINST MEDICAL ADVICE. She stated she experienced similar episodes where her troponin was elevated but she was told it is not due to a heart attack. This is her third ED visit this week for chest pain. She refused nitroglycerin stating that she does not tolerate it and it exacerbates her migraine. She never had a cardiac cath or stress test done before. Her EKG in the ED demonstrated sinus rhythm, no ischemic changes. Initial troponin negative. Chest x-ray shows no acute disease. Noted bradycardia and PVCs on a monitoring tech. Patient was placed under observation for ACS rule out Hospital Course: Troponin trended negative. Patient continued to complain of intermittent palpitation and chest pain. He was seen by cardiology Dr. France who recommended continued monitoring as inpatient and a trial of NSAIDs for musculoskeletal pain. Dr. France was planning on cardiac catheterization on Monday if his chest pain persists. Patient states that she cannot stay in the hospital till Monday. I offered her the option to stay until tomorrow to further evaluate her chest pain. I was informed by the nursing staff she signed out AGAINST MEDICAL ADVICE. I did not get the opportunity to discuss her risk of signing out AGAINST MEDICAL ADVICE. She left before I could see her. Vital Signs/Physical Exam: Temp Pulse Resp BP Pulse Ox 98.6 F 67 16 114/72 100 08/05/22 17:33 08/05/22 17:33 08/05/22 17:33 08/05/22 17:33 08/05/22 17:33 Laboratory Data at Discharge: WBC 5.30 K/uL (4.3-10.9) 08/05/22 03:05 Hgb 12.9 g/dL (12.0-15.0) D 08/05/22 03:05 Hct 39.4 % (36.0-45.0) 08/05/22 03:05 Plt Count 270 K/uL (152-406) 08/05/22 03:05 Sodium 140 mmol/L (136-145) 08/05/22 03:05 Potassium 3.7 mmol/L (3.5-5.1) D 08/05/22 03:05 BUN 9 mg/dL (7-18) 08/05/22 03:05 Creatinine 0.66 mg/dL (0.55-1.02) 08/05/22 03:05 Glucose 86 mg/dL (74-106) 08/05/22 03:05 Total Bilirubin 0.2 mg/dL (0.2-1.0) 08/04/22 11:23 AST 22 U/L (15-37) 08/04/22 11:23 ALT 33 U/L (13-56) 08/04/22 11:23 Alkaline Phosphatase 66 U/L (45-117) 08/04/22 11:23 Triglycerides 216 mg/dL (<150) H 08/04/22 19:04 Cholesterol 210 mg/dL (<200) H 08/04/22 19:04 HDL Cholesterol 49 mg/dL (40-60) 08/04/22 19:04 Cholesterol/HDL Ratio 4.29 08/04/22 19:04 Home Medications: Alprazolam [Xanax] 1 tab PO DAILY 04/03/20 Aspirin [Aspirin EC 81 MG] 81 mg PO DAILY #30 tablet. 03/17/21 Hydrocodone/Acetaminophen [Vicodin Hp 10-325 mg Tablet] 1 tab PO BID #30 03/17/21 Levothyroxine [Synthroid*] 1 tab PO DAILY #30 03/17/21 Nitroglycerin [Nitrostat] 1 tab PO SEECOM PRN #100 03/17/21 carBAMazepine [Tegretol] 200 mg PO BID #60 tab 03/17/21 Atorvastatin Calcium [Lipitor] 40 mg PO BEDTIME 08/04/22 lisinopriL [Lisinopril] 20 mg PO DAILY 08/04/22 Followup: NONE,NONE [Primary Care Provider] -
[2022-08-05] MEDS ORDERED: ATORVASTATIN 40 MG TAB PO SCH (21:00)
--- NOTE | 2022-08-08 06:38 | ECHO ---
HEIGHT: 5 ft 6 in WEIGHT: 160 lb 0 oz DATE OF STUDY: 08/05/[address]: Navneet Martinez MD 2-DIMENSIONAL: YES M.MODE: YES DOPPLER: YES COLOR FLOW: YES TDS: PORTABLE: YES DEFINITY: BUBBLE STUDY: DIAGNOSIS: CHEST PAIN, ARRHYTHMIA CARDIAC HISTORY: CATHERIZATION: NO SURGERY: NO PROSTHETIC VALVE: NO PACEMAKER: NO MEASUREMENTS (cm) DIASTOLIC (NORMALS) SYSTOLIC (NORMALS) IVSd 0.9 (0.6-1.2) LA Diam 3.7 (1.9-4.0) LVEF 50% LVIDd 5.6 (3.5-5.7) LVIDs 3.5 (2.0-3.5) %FS 37% LVPWd 0.9 (0.6-1.2) Ao Diam 2.4 (2.0-3.7) 2 DIMENSIONAL ASSESSMENT: RIGHT ATRIUM: NORMAL LEFT ATRIUM: NORMAL RIGHT VENTRICLE: NORMAL LEFT VENTRICLE: NORMAL TRICUSPID VALVE: MILD TRICUSPID REGURGITATION MITRAL VALVE: NORMAL PULMONIC VALVE: NORMAL AORTIC VALVE: NORMAL PERICARDIAL EFFUSION: NONE AORTIC ROOT: NORMAL LEFT VENTRICULAR WALL MOTION: MILD GLOBAL HYPOKINESIS DOPPLER/COLOR FLOW: SEE BELOW COMMENTS: 1. LOW NORMAL LEFT VENTRICULAR EJECTION FRACTION 50-55% 2. MILD GLOBAL HYPOKINESIS 3. MILD TRICUSPID REGURGITATION TECHNOLOGIST: VANGIE WARREN
== END 2022-08-05 17:47 | disposition left against medical advice (07) ==
LOC: ER 10:45 → ERHOLD 16:05 → 2ND 17:56
PROVIDERS: ADMIT Internal Medicine; ATTEND Internal Medicine
DX: R07.9 Chest pain, unspecified (principal); I10 Essential (primary) hypertension; R56.9 Unspecified convulsions; F41.9 Anxiety disorder, unspecified; Z88.6 Allergy status to analgesic agent; E78.5 Hyperlipidemia, unspecified; E03.9 Hypothyroidism, unspecified; Z53.29 Procedure and treatment not carried out because of patient's decision for other reasons; Z20.822 Contact with and (suspected) exposure to COVID-19
CPT/HCPCS: 93005; 93306; 85025 ×2; 80048; 36415; 80061; 84484 ×4; 80053; 83880; 71045; 94760; 99285; 87811; J1650 ×2; J3010 ×2; J2270 ×6; G0378

== ENCOUNTER 2022-08-09 15:56 | Emergency (ER) | payer OTHER ==
--- OUTSIDE RECORDS SUMMARY | 2022-08-09 16:07 | XMS REPORT | Continuity of Care Document ---
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 evening for 30 days. hydroCHLORO 2020-0 2021- No [id number] 25mg Take 1 [facility] thiazide 25 3-09 04-09 tablet by it y of mg tablet 00:00: 04:59 mouth [place] 00 :00 every Medical morning Branch and evening for 30 days. hydroCHLORO 2020- No [id number] 25mg Take 1 [facility] thiazide 25 3-02 27-09 tablet by it y of mg tablet 00:00: 04:59 mouth [place] 00 :00 every Medical morning Branch and evening for 30 days. hydrOXYzine 2020- No [id number] 25mg Take 1 [facility] 25 mg 3- 03-09 tablet by ity of tablet 00:00: 00:00 mouth [place] 00 :00 every 6 Medical (six) Branch hours as needed for Anxiety. gabapentin 2019-06 Yes 300mg Take 300 [facility] 300 mg 0-21 mg by ity of capsule 02:02: mouth 2 [place] [address] (two) Medical times Branch daily. levothyroxi 2019-06 Yes 100ug Take 100 U nivers ne 100 mcg 0-21 mcg by ity of tablet 02:02: mouth [place] [address] daily. Medical Branch meloxicam 2019-06 Yes 7.5mg Take 7.5 [facility] vers 7.5 mg 0-21 mg by ity of tablet 02:02: mouth [place] [address] daily. Medical Branch metoprolol 2019-06 Yes 25mg Take 25 mg U nivers tartrate 25 0-21 by mouth ity of mg tablet 02:02: daily. [place] [address] Medical Branch omeprazole 2019-06 Yes 20mg Take 20 mg [facility] 20 mg 0-21 by mouth ity of capsule 02:02: daily. [place] [address] Medical Branch pravastatin 2019-06 Yes 20mg Take 20 mg [facility] 20 mg 0-21 by mouth ity of tablet 02:02: at [place] [address] bedtime. Medical Branch triamcinolo 2019-06 Yes .1% Apply 0.1 U nivers ne 0-21 % to ity of acetonide/l 02:02: area(s) 2 [place] (two) Medical (ARISTOCORT times Branch A TOPICAL) daily. gabapentin 2019-06 Yes 300mg Take 300 [facility] 300 mg 0-21 mg by ity of capsule 02:02: mouth 2 [place] [address] (two) Medical times Branch daily. levothyroxi 2019-06 Yes 100ug Take 100 U nivers ne 100 mcg 0-21 mcg by ity of tablet 02:02: mouth [place] [address] daily. Medical Branch meloxicam 2019-06 Yes 7.5mg Take 7.5 [facility] vers 7.5 mg 0-21 mg by ity of tablet 02:02: mouth [place] [address] daily. Medical Branch metoprolol 2019- Yes 25mg Take 25 mg [facility] tartrate 25 0-21 by mouth ity of mg tablet 02:02: daily. [place] [address] Medical Branch omeprazole 2019- Yes 20mg Take 20 mg [facility] n[facility] 20 mg 0-21 by mouth ity of capsule 02:02: daily. [place] [address] Medical Branch pravastatin 2019-06 Yes 20mg Take 20 mg [facility] 20 mg 0-21 by mouth ity of tablet 02:02: at [place] [address] bedtime. Medical Branch triamcinolo 2019-06 Yes .1% Apply 0.1 U nivers ne 0-21 % to ity of acetonide/l 02:02: area(s) 2 [place] [address] [place] (two) Medical (ARISTOCORT times Branch A TOPICAL) daily. gabapentin 2019-06 Yes 300mg Take 300 [facility] 300 mg 0-21 mg by ity of capsule 02:02: mouth 2 [place] [address] (two) Medical times Branch daily. levothyroxi 2019-06 Yes 100ug Take 100 U nivers ne 100 mcg 0-21 mcg by ity of tablet 02:02: mouth [place] [address] daily. Medical Branch meloxicam 2019-06 Yes 7.5mg Take 7.5 [facility] vers 7.5 mg 0-21 mg by ity of tablet 02:02: mouth [place] [address] daily. Medical Branch metoprolol 2019-06 Yes 25mg Take 25 mg [facility] nivers tartrate 25 0-21 by mouth ity of mg tablet 02:02: daily. [place] [address] Medical Branch omeprazole 2019- Yes 20mg Take 20 mg [facility] n[facility] 20 mg 0-21 by mouth ity of capsule 02:02: daily. [place] [address] Medical Branch pravastatin 2019- Yes 20mg Take 20 mg [facility] 20 mg 0-21 by mouth ity of tablet 02:02: at [place] [address] bedtime. Medical Branch triamcinolo 2019-06 Yes .1% Apply 0.1 U nivers ne 0-21 % to ity of acetonide/l 02:02: area(s) 2 [place] [address] [place] (two) Medical (ARISTOCORT times Branch A TOPICAL) daily. gabapentin 2019- Yes 300mg Take 300 Un [facility] 300 mg 0-21 mg by ity of capsule 02:02: mouth 2 [place] [address] (two) Medical times Branch daily. levothyroxi 2019-06 Yes 100ug Take 100 U nivers ne 100 mcg 0-21 mcg by ity of tablet 02:02: mouth [place] [address] daily. Medical Branch meloxicam 2019-06 Yes 7.5mg Take 7.5 [facility] vers 7.5 mg 0-21 mg by ity of tablet 02:02: mouth [place] [address] daily. Medical Branch metoprolol 2019-06 Yes 25mg Take 25 mg U nivers tartrate 25 0-21 by mouth ity of mg tablet 02:02: daily. [place] [address] Medical Branch omeprazole 2019-06 Yes 20mg Take 20 mg [facility] nivers 20 mg 0-21 by mouth ity of capsule 02:02: daily. [place] [address] Medical Branch pravastatin 2019-06 Yes 20mg Take 20 mg [facility] 20 mg 0-21 by mouth ity of tablet 02:02: at [place] [address] bedtime. Medical Branch triamcinolo 2019-06 Yes .1% Apply 0.1 U nivers ne 0-21 % to ity of acetonide/l 02:02: [facility] [facility] (ARISTOCORT times Branch A TOPICAL) daily. gabapentin 2019-06 Yes 300mg Take 300 Un [facility] 300 mg 0-21 mg by ity of capsule 02:02: mouth 2 [place] [address] (two) Medical times Branch daily. levothyroxi 2019-06 Yes 100ug Take 100 U nivers ne 100 mcg 0-21 mcg by ity of tablet 02:02: mouth [place] [address] daily. Medical Branch meloxicam 2019-06 Yes 7.5mg Take 7.5 [facility] vers 7.5 mg 0-21 mg by ity of tablet 02:02: mouth [place] [address] daily. Medical Branch metoprolol 2019-06 Yes 25mg Take 25 mg U nivers tartrate 25 0-21 by mouth ity of mg tablet 02:02: daily. [address] Branch omeprazole 2019-06 Yes 20mg Take 20 mg U nivers 20 mg 0-21 by mouth ity of capsule 02:02: daily. [address] Branch pravastatin 2019-06 Yes 20mg Take 20 mg [facility] 20 mg 0-21 by mouth ity of tablet 02:02: at [place] [address] bedtime. Medical Branch triamcinolo 2020- Yes .1% Apply 0.1 U nivers ne 0-21 % to ity of acetonide/l 02:02: area(s) 2 [place] [address] [place] (two) Medical (ARISTOCORT times Branch A TOPICAL) daily. gabapentin 2019- Yes 300mg Take 300 [facility] 300 mg 0-21 mg by ity of capsule 02:02: mouth 2 [place] [address] (two) Medical times Branch daily. levothyroxi 2019- Yes 100ug Take 100 U nivers ne 100 mcg 0-21 mcg by ity of tablet 02:02: mouth [place] [address] daily. Medical Branch meloxicam 2019- Yes 7.5mg Take 7.5 [facility] vers 7.5 mg 0-21 mg by ity of tablet 02:02: mouth [place] [address] daily. Medical Branch metoprolol 2019- Yes 25mg Take 25 mg U nivers tartrate 25 0-21 by mouth ity of mg tablet 02:02: daily. [place] [address] Medical Branch omeprazole 2019- Yes 20mg Take 20 mg U nivers 20 mg 0-21 by mouth ity of capsule 02:02: daily. [place] [address] Medical Branch pravastatin 2019- Yes 20mg Take 20 mg [facility] 20 mg 0-21 by mouth ity of tablet 02:02: at [place] [address] bedtime. Medical Branch triamcinolo 2019- Yes .1% Apply 0.1 U nivers ne 0-21 % to ity of acetonide/l 02:02: area(s) 2 [place] [address] [place] (two) Medical (ARISTOCORT times Branch A TOPICAL) daily. gabapentin 2019- Yes 300mg Take 300 Un [facility] 300 mg 0-21 mg by ity of capsule 02:02: mouth 2 [place] [address] (two) Medical times Branch daily. levothyroxi 2020- Yes 100ug Take 100 U nivers ne 100 mcg 0-21 mcg by ity of tablet 02:02: mouth [place] [address] daily. Medical Branch meloxicam 2019- Yes 7.5mg Take 7.5 [facility] vers 7.5 mg 0-21 mg by ity of tablet 02:02: mouth [place] [address] daily. Medical Branch metoprolol 2019- Yes 25mg Take 25 mg U nivers tartrate 25 0-21 by mouth ity of mg tablet 02:02: daily. [place] [address] Medical Branch omeprazole 2019-06 Yes 20mg Take 20 mg [facility] nivers 20 mg 0-21 by mouth ity of capsule 02:02: daily. [place] [address] Medical Branch pravastatin 2019-06 Yes 20mg Take 20 mg [facility] 20 mg 0-21 by mouth ity of tablet 02:02: at [place] [address] bedtime. Medical Branch triamcinolo 2019-06 Yes .1% Apply 0.1 U nivers ne 0-21 % to ity of acetonide/l 02:02: area(s) 2 [place] [address] [place] (two) Medical (ARISTOCORT times Branch A TOPICAL) daily. gabapentin 2019-06 Yes 300mg Take 300 Un [facility] 300 mg 0-21 mg by ity of capsule 02:02: mouth 2 [place] [address] (two) Medical times Branch daily. levothyroxi 2019-06 Yes 100ug Take 100 [facility] ne 100 mcg 0-21 mcg by ity of tablet 02:02: mouth [place] [address] daily. Medical Branch meloxicam 2019-06 Yes 7.5mg Take 7.5 [facility] vers 7.5 mg 0-21 mg by ity of tablet 02:02: mouth [place] [address] daily. Medical Branch metoprolol 2019-06 Yes 25mg Take 25 mg [facility] nivers tartrate 25 0-21 by mouth ity of mg tablet 02:02: daily. [place] [address] Medical Branch omeprazole 2019-06 Yes 20mg Take 20 mg [facility] nivers 20 mg 0-21 by mouth ity of capsule 02:02: daily. [place] [address] Medical Branch pravastatin 2019-06 Yes 20mg Take 20 mg [facility] 20 mg 0-21 by mouth ity of tablet 02:02: at [place] [address] bedtime. Medical Branch triamcinolo 2019-06 Yes .1% Apply 0.1 U nivers ne 0-21 % to ity of acetonide/l 02:02: area(s) 2 [place] [address] [place] (two) Medical (ARISTOCORT times Branch A TOPICAL) daily. acetaminoph 2019-06- No [id number] 650mg Take 2 [facility] en 325 mg 0-20 10-21 tablets by ity of tablet 00:00: 04:59 mouth [place] 00 :00 every 6 Medical (six) Branch hours as needed for Alternate with ibuprofen for pain scale 4-6. ibuprofen 2019-06- No [id number] 600mg Take 3 [facility] 200 mg 0-20 10-21 tablets by ity of tablet 00:00: 04:59 mouth [place] 00 :00 every 6 Medical (six) Branch hours as needed (Alternate with acetaminop hen for pain). acetaminoph 2019-06- No [id number] 650mg Take 2 [facility] en 325 mg 0-20 10-21 tablets by ity of tablet 00:00: 04:59 mouth [place] 00 :00 every 6 Medical (six) Branch hours as needed for Alternate with ibuprofen for pain scale 4-6. ibuprofen 2019-06- No [id number] 600mg Take 3 [facility] 200 mg 0-20 10-21 tablets by ity of tablet 00:00: 04:59 mouth [place] 00 :00 every 6 Medical (six) Branch hours as needed (Alternate with acetaminop hen for pain). acetaminoph 2019-06- No [id number] 650mg Take 2 [facility] en 325 mg 0-20 10-21 tablets by ity of tablet 00:00: 04:59 mouth [place] 00 :00 every 6 Medical (six) Branch hours as needed for Alternate with ibuprofen for pain scale 4-6. ibuprofen 2019-06- No [id number] 600mg Take 3 [facility] 200 mg 0-20 10-21 tablets by ity of tablet 00:00: 04:59 mouth [place] 00 :00 every 6 Medical (six) Branch hours as needed (Alternate with acetaminop hen for pain). acetaminoph 2019-06- No [id number] 650mg Take 2 [facility] en 325 mg 0-20 10-21 tablets by ity of tablet 00:00: 04:59 mouth [place] 00 :00 every 6 Medical (six) Branch hours as needed for Alternate with ibuprofen for pain scale 4-6. ibuprofen 2019-06- No [id number] 600mg Take 3 [facility] 200 mg 0-20 10-21 tablets by ity of tablet 00:00: 04:59 mouth [place] 00 :00 every 6 Medical (six) Branch hours as needed (Alternate with acetaminop hen for pain). acetaminoph 2019-06- No [id number] 650mg Take 2 [facility] en 325 mg 0-20 10-21 tablets by ity of tablet 00:00: 04:59 mouth [place] 00 :00 every 6 Medical (six) Branch hours as needed for Alternate with ibuprofen for pain scale 4-6. ibuprofen 2019-06 No [id number] 600mg Take 3 [facility] 200 mg 0-20 10-21 tablets by ity of tablet 00:00: 04:59 mouth [place] 00 :00 every 6 Medical (six) Branch hours as needed (Alternate with acetaminop hen for pain). acetaminoph 2019-06 No [id number] 650mg Take 2 [facility] en 325 mg 0-20 10-21 tablets by ity of tablet 00:00: 04:59 mouth [place] 00 :00 every 6 Medical (six) Branch hours as needed for Alternate with ibuprofen for pain scale 4-6. ibuprofen 2019-06- No [id number] 600mg Take 3 [facility] 200 mg 0-20 10-21 tablets by ity of tablet 00:00: 04:59 mouth [place] 00 :00 every 6 Medical (six) Branch hours as needed (Alternate with acetaminop hen for pain). acetaminoph 2019-06 No [id number] 650mg Take 2 [facility] en 325 mg 0-20 10-21 tablets by ity of tablet 00:00: 04:59 mouth [place] 00 :00 every 6 Medical (six) Branch hours as needed for Alternate with ibuprofen for pain scale 4-6. ibuprofen 2019-06 No [id number] 600mg Take 3 [facility] 200 mg 0-20 10-21 tablets by ity of tablet 00:00: 04:59 mouth [place] 00 :00 every 6 Medical (six) Branch hours as needed (Alternate with acetaminop hen for pain). acetaminoph 2019-06- No [id number] 650mg Take 2 [facility] en 325 mg 0-20 10-21 tablets by ity of tablet 00:00: 04:59 mouth [place] 00 :00 every 6 Medical (six) Branch hours as needed for Alternate with ibuprofen for pain scale 4-6. ibuprofen 2019-06 No [id number] 600mg Take 3 [facility] 200 mg 0-20 10-21 tablets by ity of tablet 00:00: 04:59 mouth [place] 00 :00 every 6 Medical (six) Branch hours as needed (Alternate with acetaminop hen for pain). acetaminoph 2019-06- No [id number] 650mg Take 2 [facility] en 325 mg 0-20 10-21 tablets by ity of tablet 00:00: 04:59 mouth [place] 00 :00 every 6 Medical (six) Branch hours as needed for Alternate with ibuprofen for pain scale 4-6. ibuprofen 2019-06- No [id number] 600mg Take 3 [facility] 200 mg 0-20 10-21 tablets by ity of tablet 00:00: 04:59 mouth [place] 00 :00 every 6 Medical (six) Branch hours as needed (Alternate with acetaminop hen for pain). acetaminoph 2019-06- No [id number] 650mg Take 2 [facility] en 325 mg 0-20 10-21 tablets by ity of tablet 00:00: 04:59 mouth [place] 00 :00 every 6 Medical (six) Branch hours as needed for Alternate with ibuprofen for pain scale 4-6. ibuprofen 2019-06- No [id number] 600mg Take 3 [facility] 200 mg 0-20 10-21 tablets by ity of tablet 00:00: 04:59 mouth [place] 00 :00 every 6 Medical (six) Branch hours as needed (Alternate with acetaminop hen for pain). acetaminoph 2019-06- No [id number] 650mg Take 2 [facility] en 325 mg 0-20 10-21 tablets by ity of tablet 00:00: 04:59 mouth [place] 00 :00 every 6 Medical (six) Branch hours as needed for Alternate with ibuprofen for pain scale 4-6. ibuprofen 2019-06- No [id number] 600mg Take 3 [facility] 200 mg 0-20 10-21 tablets by ity of tablet 00:00: 04:59 mouth [place] 00 :00 every 6 Medical (six) Branch hours as needed (Alternate with acetaminop hen for pain). ibuprofen 2019-06- No [id number] 600mg Take 3 [facility] 200 mg 0-20 10-21 tablets by ity of tablet 00:00: 04:59 mouth [place] 00 :00 every 6 Medical (six) Branch hours as needed (Alternate with acetaminop hen for pain). ibuprofen 2019-06- No [id number] 600mg Take 3 [facility] 200 mg 0-20 10-21 tablets by ity of tablet 00:00: 04:59 mouth [place] 00 :00 every 6 Medical (six) Branch hours as needed (Alternate with acetaminop hen for pain). ibuprofen 2019-06 No [id number] 600mg Take 3 [facility] 200 mg 0-20 10-21 tablets by ity of tablet 00:00: 04:59 mouth [place] 00 :00 every 6 Medical (six) Branch hours as needed (Alternate with acetaminop hen for pain). acetaminoph 2019-06 No [id number] 650mg Take 2 [facility] en 325 mg 0-20 05-30 tablets by ity of tablet 00:00: 00:00 mouth [place] 00 :00 every 6 Medical (six) Branch hours as needed for Alternate with ibuprofen for pain scale 4-6. ALPRAZolam 2019-06 Yes .25mg 0.25 mg, Un s[facility]ant (XANAX) 0-19 Oral, BID, ity of tablet 0.25 01:00: First dose [place] mg 00 on [place] [facility] 04/12/20 Branch at 2000, Until Discontinu ed, Routine ziprasidone 2019-06- No 20mg 20 mg, Uni vers (GEODON) 0-18 10-25 Intramuscu ity of injection 18:20: 18:19 lar, [place] 20 mg 44 :44 Q6HPRN, Medical Starting Branch [place] 04/12/20 at 1320, Until [place] 04/19/20 at 1319, Routine, Agitation carBAMazepi 2019-06 Yes 200mg 200 mg, Un [facility]ant ne 0-18 Oral, ity of (TEGRETOL) 03:00: Q12H, [place] tablet 200 00 First dose Med ical mg on [facility] Branch 04/11/20 at 2200, Until Discontinu ed, [...] [place] mg 00 First dose Medical on [facility] Branch 04/11/20 at 1215, Until Discontinu ed, Routine levothyroxi 2019-06 Yes 100ug 100 mcg, U nivers ne 0-17 Oral, ity of (SYNTHROID) 17:15: QAM-0600, [place] tablet 100 00 First dose Med ical mcg on [facility] Branch 04/11/20 at 1215, Until Discontinu ed, [...] s mg 00 First dose Medical on [facility] Branch 04/11/20 at 0900, Until Discontinu ed, [...] dose, Fri Branch 04/10/20 at 2245, Routine
receiving team member approving Restricted medication : PEDRITO ROSADO clonazePAM 2019-06 Yes [id number] 1mg Take 1 U nivers (KLONOPIN) 0-17 tablet by ity of 1 mg tablet 00:00: mouth 3 [place] (three) Medical times Branch daily as needed (anxiety). clonazePAM 2019-06 Yes [id number] 1mg Take 1 U nivers (KLONOPIN) 0-17 tablet by ity of 1 mg tablet 00:00: mouth 3 [place] (three) Medical times Branch daily as needed (anxiety). clonazePAM 2019-06 Yes [id number] 1mg Take 1 U nivers (KLONOPIN) 0-17 tablet by ity of 1 mg tablet 00:00: mouth 3 [place] (three) Medical times Branch daily as needed (anxiety). clonazePAM 2019- Yes [id number] 1mg Take 1 U nivers (KLONOPIN) 0-17 tablet by ity of 1 mg tablet 00:00: mouth 3 [place] (three) Medical times Branch daily as needed (anxiety). clonazePAM 2019- Yes [id number] 1mg Take 1 U nivers (KLONOPIN) 0-17 tablet by ity of 1 mg tablet 00:00: mouth 3 [place] (three) Medical times Branch daily as needed (anxiety). clonazePAM 2019- Yes [id number] 1mg Take 1 U nivers (KLONOPIN) 0-17 tablet by ity of 1 mg tablet 00:00: mouth 3 [place] (three) Medical times Branch daily as needed (anxiety). clonazePAM 2019-06 Yes [id number] 1mg Take 1 U nivers (KLONOPIN) 0-17 tablet by ity of 1 mg tablet 00:00: mouth 3 [place] (three) Medical times Branch daily as needed (anxiety). clonazePAM 2019-06 Yes [id number] 1mg Take 1 U nivers (KLONOPIN) 0-17 tablet by ity of 1 mg tablet 00:00: mouth 3 [place] (three) Medical times Branch daily as needed (anxiety). clonazePAM 2019-06 Yes [id number] 1mg Take 1 U nivers (KLONOPIN) 0-17 [...] Fri Med ical tablet 1 07/12/19 at [facility] tablet 2215, RAJANI ondansetron 2019- [...] 07/12/19 at 1545, RAJANI HYDROcodone 2019-0 Yes [id number] 1{tbl} Take 1 [facility] -acetaminop 1-17 tablet by ity of hen 5-325 00:00: mouth [place] mg tablet 00 every 6 Medical (six) Branch hours as needed for Pain (scale 1-3). HYDROcodone 2019-0 Yes [id number] 1{tbl} Take 1 [facility] -acetaminop 1-17 tablet by ity of hen 5-325 00:00: mouth [place] mg tablet 00 every 6 Medical (six) Branch hours as needed for Pain (scale 1-3). HYDROcodone 2019-0 Yes [id number] 1{tbl} Take 1 [facility] -acetaminop 1-17 tablet by ity of hen 5-325 00:00: mouth [place] mg tablet 00 every 6 Medical (six) Branch hours as needed for Pain (scale 1-3). HYDROcodone 2019-0 Yes [id number] 1{tbl} Take 1 [facility] -acetaminop 1-17 tablet by ity of hen 5-325 00:00: mouth [place] mg tablet 00 every 6 Medical (six) Branch hours as needed for Pain (scale 1-3). HYDROcodone 2019-0 Yes [id number] 1{tbl} Take 1 [facility] -acetaminop 1-17 tablet by ity of hen 5-325 00:00: mouth [place] mg tablet 00 every 6 Medical (six) Branch hours as needed for Pain (scale 1-3). HYDROcodone 2020-0 Yes [id number] 1{tbl} Take 1 [facility] -acetaminop 1-17 tablet by ity of hen 5-325 00:00: mouth [place] mg tablet 00 every 6 Medical (six) Branch hours as needed for Pain (scale 1-3). HYDROcodone 2019-0 Yes [id number] 1{tbl} Take 1 [facility] -acetaminop 1-17 tablet by ity of hen 5-325 00:00: mouth [place] mg tablet 00 every 6 Medical (six) Branch hours as needed for Pain (scale 1-3). HYDROcodone Yes [id number] 1{tbl} Take 1 [facility] -acetaminop 1-17 tablet by ity of hen 5-325 00:00: mouth [place] mg tablet 00 every 6 Medical (six) Branch hours as needed for Pain (scale 1-3). HYDROcodone Yes [id number] 1{tbl} Take 1 [facility] -acetaminop 1-17 tablet by ity of hen 5-325 00:00: mouth [place] mg tablet 00 every 6 Medical (six) Branch hours as needed for Pain (scale 1-3). HYDROcodone Yes [id number] 1{tbl} Take 1 [facility] -acetaminop 1-17 tablet by ity of hen 5-325 00:00: mouth [place] mg tablet 00 every 6 Medical (six) Branch hours as needed for Pain (scale 1-3). HYDROcodone Yes [id number] 1{tbl} Take 1 [facility] -acetaminop 1-17 tablet by ity of hen 5-325 00:00: mouth [place] mg tablet 00 every 6 Medical (six) Branch hours as needed for Pain (scale 1-3). HYDROcodone Yes [id number] 1{tbl} Take 1 [facility] -acetaminop 1-17 tablet by ity of hen 5-325 00:00: mouth [place] mg tablet 00 every 6 Medical (six) Branch hours as needed for Pain (scale 1-3). HYDROcodone Yes [id number] 1{tbl} Take 1 [facility] -acetaminop 1-17 tablet [...] of mg tablet 06:37: daily. [place] [address] Medical Branch omeprazole 2018-0 Yes 20mg Take 20 mg U nivers 20 mg 7-13 by mouth ity of capsule 06:37: daily. [place] [address] Medical Branch pravastatin Yes 20mg Take 20 mg [facility] 20 mg 7-13 by mouth ity of tablet 06:37: at [place] [address] bedtime. Medical Branch triamcinolo Yes .1% Apply 0.1 U nivers ne 7-13 % to ity of acetonide/l 06:37: area(s) 2 [place] .s.[place]. [place] (two) Medical (ARISTOCORT times Branch A TOPICAL) daily. levothyroxi 0 Yes 100ug Take 100 U nivers ne 100 mcg 7-13 mcg by ity of tablet 06:37: mouth [place] [address] daily. Medical Branch meloxicam Yes 7.5mg Take 7.5 Uni vers 7.5 mg 7-13 mg by ity of tablet 06:37: mouth [place] daily. Medical Branch metoprolol Yes 25mg Take 25 mg U nivers tartrate 25 7-13 by mouth ity of mg tablet 06:37: daily. [place] [address] Medical Branch omeprazole Yes 20mg Take 20 mg U nivers 20 mg 7-13 by mouth ity of capsule 06:37: daily. [place] [address] Medical Branch pravastatin Yes 20mg Take 20 mg [facility] 20 mg 7-13 by mouth ity of tablet 06:37: at [place] [address] bedtime. Medical Branch triamcinolo Yes .1% Apply [...] of mg tablet 06:37: daily. [place] [address] Medical Branch omeprazole Yes 20mg Take 20 mg U nivers 20 mg 7-13 by mouth ity of capsule 06:37: daily. [place] [address] Medical Branch pravastatin Yes 20mg Take 20 mg [facility] 20 mg 7-13 by mouth ity of tablet 06:37: at [place] [address] bedtime. Medical Branch triamcinolo Yes .1% Apply 0.1 U nivers ne 7-13 % to ity of acetonide/l 06:37: area(s) 2 [place] [place] (two) Medical (ARISTOCORT times Branch A TOPICAL) daily. levothyroxi 0 Yes 100ug Take 100 U nivers ne 100 mcg 7-13 mcg by ity of tablet 06:37: mouth [place] [address] daily. Medical Branch meloxicam Yes 7.5mg Take 7.5 Uni vers 7.5 mg 7-13 mg by ity of tablet 06:37: mouth [place] [address] daily. Medical Branch metoprolol Yes 25mg Take 25 mg U nivers tartrate 25 7-13 by mouth ity of mg tablet 06:37: daily. [place] [address] Medical Branch omeprazole Yes 20mg Take 20 mg U nivers 20 mg 7-13 by mouth ity of capsule 06:37: daily. [place] [address] Medical Branch pravastatin Yes 20mg Take 20 mg [facility] 20 mg 7-13 by mouth ity of tablet 06:37: at [place] [address] bedtime. Medical Branch triamcinolo Yes .1% Apply [...] of mg tablet 06:37: daily. [place] [address] Medical Branch omeprazole 2019-0 Yes 20mg Take 20 mg U nivers 20 mg 7-13 by mouth ity of capsule 06:37: daily. [place] [address] Medical Branch pravastatin 2019- Yes 20mg Take 20 mg [facility] 20 mg 7-13 by mouth ity of tablet 06:37: at [place] [address] bedtime. Medical Branch triamcinolo Yes .1% Apply 0.1 U nivers ne 7-13 % to ity of acetonide/l 06:37: area(s) 2 [place] .s.[address]. [place] (two) Medical (ARISTOCORT times Branch A TOPICAL) daily. levothyroxi 2019-0 Yes 100ug Take 100 U nivers ne 100 mcg 7-13 mcg by ity of tablet 06:37: mouth [place] [address] daily. Medical Branch meloxicam 2019-0 Yes 7.5mg Take 7.5 Uni vers 7.5 mg 7-13 mg by ity of tablet 06:37: mouth [place] [address] daily. Medical Branch metoprolol 2018-0 Yes 25mg Take 25 mg U nivers tartrate 25 7-13 by mouth ity of mg tablet 06:37: daily. [place] [address] Medical Branch omeprazole 2018-0 Yes 20mg Take 20 mg U nivers 20 mg 7-13 by mouth ity of capsule 06:37: daily. [place] [address] Medical Branch pravastatin 2018-0 Yes 20mg Take 20 mg Univers 20 mg 7-13 by mouth ity of tablet 06:37: at [place] [address] bedtime. Medical Branch triamcinolo Yes .1% Apply 0.1 U nivers ne 7-13 % to ity of acetonide/l 06:37: area(s) 2 [place] .s.[place]. [place] (two) Medical (ARISTOCORT times Branch A TOPICAL) daily. gabapentin 2019-0 Yes 300mg Take 300 Un sushant 300 mg 7-13 mg by ity of capsule 06:27: mouth 2 [place] [address] (two) Medical times Branch daily. gabapentin 2019-0 Yes 300mg Take 300 Un sushant 300 mg 7-13 mg by ity of capsule 06:27: mouth 2 [place] 56 (two) Medical times Branch daily. gabapentin 2019-0 Yes 300mg Take 300 Un sushant 300 mg 7-13 mg by ity of capsule 06:27: mouth 2 [place] 56 (two) Medical times Branch daily. gabapentin 2019-0 Yes 300mg Take 300 Un sushant 300 mg 7-13 mg by ity of capsule 06:27: mouth 2 [place] 56 (two) Medical times Branch daily. gabapentin 2019-0 Yes 300mg Take 300 Un sushant 300 mg 7-13 mg by ity of capsule 06:27: mouth 2 [place] 56 (two) Medical times Branch daily. gabapentin 2019-0 Yes 300mg Take 300 Un sushant 300 mg 7-13 mg by ity of capsule 06:27: mouth 2 [place] 56 (two) Medical times Branch daily. Vital Signs Vital Name Observation Time Observation Value Comments Source Heart rate 2021-09-22 03:30:00 87 /min [facility] Respiratory rate 2021-09-22 03:30:00 20 /min [facility] Oxygen saturation in 2021-09-22 03:30:00 100 /min [facility] Arterial blood by [facility] Pulse oximetry Branch Systolic blood 2021-09-22 03:00:00 148 mm[facility]Hg[facility] 2021-09-22 03:00:00 86 mm[Hg] Unive [facility] Body temperature 2021-09-22 01:12:[address] [facility] Body height 2021-09-22 01:12:00 167.6 cm [facility] Body weight 2021-09-22 01:12:00 72.576 kg [facility] BMI 2021-09-22 01:12:00 25.82 kg/m2 [facility] Systolic blood 2021-03-25 15:30:00 153 mm[Hg] Univer sity [facility] Diastolic blood 2021-03-25 15:30:00 96 mm[Hg] Unive [facility] Heart rate 2021-03-25 15:30:00 100 /min [facility] Respiratory rate 2021-03-25 15:30:00 20 /min [facility] [place] [facility] Oxygen saturation in 2021-03-25 15:30:00 97 /min [facility] Ar[place] blood by [place] [facility] Pulse oximetry Branch Body temperature 2021-03-25 08:55:00 36.39 Yamila [facility] [place] [facility] Body weight 2021-03-25 08:55:00 81.194 kg [facility] [place] [facility] BMI 2021-03-25 08:55:00 28.89 kg/m2 [facility] [place] [facility] Systolic blood 2020-11-23 17:24:00 104 mm[Hg] Univer sity of [facility] [place] [facility] Diastolic blood 2020-11-23 17:24:00 68 mm[Hg] Unive rsity of [facility] [place] [facility] Heart rate 2020-11-23 17:24:00 91 /min [facility] [place] [facility] Respiratory rate 2020-11-23 17:24:00 18 /min [facility] [place] [facility] Oxygen saturation in 2020-11-23 17:24:00 97 /min [facility] Arterial blood by [facility] steve Pulse oximetry Branch Body temperature 2020-11-23 12:24:00 36.94 Yamila [facility] [place] [facility] Body weight 2020-11-23 09:53:00 81.194 kg [facility] [place] [facility] BMI 2020-11-23 09:53:00 28.89 kg/m2 [facility] [place] [facility] Body height 2020-11-22 21:41:00 167.6 cm [facility] [place] [facility] Systolic blood 2020-11-23 17:24:00 104 mm[Hg] Univer sity [facility] [place] [facility] Diastolic blood 2020-11-23 17:24:00 68 mm[Hg] Unive rsity [facility] [place] [facility] Heart rate 2020-11-23 17:24:00 91 /min [facility] [place] [facility] Respiratory rate 2020-11-23 17:24:00 18 /min [facility] [place] [facility] Oxygen saturation in 2020-11-23 17:24:00 97 /min [facility] Arterial blood by [facility] steve Pulse oximetry Branch Body temperature 2020-11-23 12:24:00 36.94 Yamila [facility] [place] [facility] Body weight 2020-11-23 09:53:00 81.194 kg [facility] [place] [facility] BMI 2020-11-23 09:53:00 28.89 kg/m2 [facility] [place] [facility] Body height 2020-11-22 21:41:00 167.6 cm [facility] [place] [facility] Systolic blood 2020-10-22 10:00:00 149 mm[Hg] Univer sity [facility] [place] [facility] Diastolic blood 2020-10-22 10:00:00 92 mm[Hg] Unive rsity [facility] [place] [facility] Heart rate 2020-10-22 10:00:00 89 /min [facility] [place] [facility] Body temperature 2020-10-22 10:00:00 36.78 Yamila [facility] [place] [facility] Respiratory rate 2020-10-22 10:00:00 16 /min [facility] [place] [facility] Oxygen saturation in 2020-10-22 10:00:00 97 /min [facility] Arterial blood by [facility] steve Pulse oximetry Branch Body weight 2020-10-22 07:03:00 72.576 kg [facility] [place] [facility] BMI 2020-10-22 07:03:00 25.82 kg/m2 [facility] [place] [facility] Systolic blood 2020-10-22 10:00:00 149 mm[Hg] Univer sity [facility] [place] [facility] Diastolic blood 2020-10-22 10:00:00 92 mm[Hg] Unive rsity [facility] [place] [facility] Heart rate 2020-10-22 10:00:00 89 /min [facility] [place] [facility] Body temperature 2020-10-22 10:00:00 36.78 Yamila [facility] [place] [facility] Respiratory rate 2020-10-22 10:00:00 16 /min [facility] [place] [facility] Oxygen saturation in 2020-10-22 10:00:00 97 /min [facility] Arterial blood by [place] [facility] Pulse oximetry Branch Body weight 2020-10-22 07:03:00 72.576 kg [facility] [place] [facility] BMI 2020-10-22 07:03:00 25.82 kg/m2 [facility] [place] [facility] Systolic blood 2020-10-20 04:55:00 181 mm[Hg] Univer sity [facility] [place] [facility] Diastolic blood 2020-10-20 04:55:00 109 mm[Hg] Unive rsity [facility] [place] [facility] Heart rate 2020-10-20 04:55:00 126 /min [facility] [place] [facility] Body temperature 2020-10-20 04:55:00 36.72 Yamila [facility] [place] [facility] Respiratory rate 2020-10-20 04:55:00 17 /min [facility] [place] [facility] Body weight 2020-10-20 04:55:00 72.598 kg [facility] [place] [facility] BMI 2020-10-20 04:55:00 25.83 kg/m2 [facility] [place] [facility] Oxygen saturation in 2020-10-20 04:55:00 97 /min [facility] Arterial blood by [place] [facility] Pulse oximetry Branch Systolic blood 2020-10-20 04:55:00 181 mm[Hg] Univer sity of [facility] [place] [facility] Diastolic blood 2020-10-20 04:55:00 109 mm[Hg] Unive rsity [facility] [place] [facility] Heart rate 2020-10-20 04:55:00 126 /min [facility] [place] [facility] Body temperature 2020-10-20 04:55:00 36.72 Yamila [facility] [place] [facility] Respiratory rate 2020-10-20 04:55:00 17 /min [facility] [place] [facility] Body weight 2020-10-20 04:55:00 72.598 kg [facility] [place] [facility] BMI 2020-10-20 04:55:00 25.83 kg/m2 [facility] [place] [facility] Oxygen saturation in 2020-10-20 04:55:00 97 /min [facility] Arterial blood by [place] [facility] Pulse oximetry Branch Systolic blood 2020-10-15 20:07:00 124 mm[Hg] Univer sity of [facility] [place] [facility] Diastolic blood 2020-10-15 20:07:00 72 mm[Hg] Unive rsity of [facility] [place] [facility] Heart rate 2020-10-15 20:07:00 97 /min [facility] [place] [facility] Body temperature 2020-10-15 20:07:00 36.83 Yamila [facility] [place] [facility] Respiratory rate 2020-10-15 20:07:00 17 /min [facility] [place] [facility] Oxygen saturation in 2020-10-15 20:07:00 96 /min [facility] Arterial blood by [place] [facility] Pulse oximetry Branch Body weight 2020-10-15 12:34:00 68.04 kg [facility] [place] [facility] BMI 2020-10-15 12:34:00 24.21 kg/m2 [facility] [place] [facility] Systolic blood 2020-10-15 20:07:00 124 mm[Hg] Univer sity [facility] [place] [facility] Diastolic blood 2020-10-15 20:07:00 72 mm[Hg] Unive rsity [facility] [place] [facility] Heart rate 2020-10-15 20:07:00 97 /min [facility] [place] [facility] Body temperature 2020-10-15 20:07:00 36.83 Yamila [facility] [place] [facility] Respiratory rate 2020-10-15 20:07:00 17 /min [facility] [place] [facility] Oxygen saturation in 2020-10-15 20:07:00 96 /min [facility] Arterial blood by [facility] steve Pulse oximetry Branch Body weight 2020-10-15 12:34:00 68.04 kg [facility] [place] [facility] BMI 2020-10-15 12:34:00 24.21 kg/m2 [facility] [place] [facility] Systolic blood 2020-10-13 15:00:00 145 mm[Hg] Univer sity of [facility] [place] [facility] Diastolic blood 2020-10-13 15:00:00 102 mm[Hg] Unive rsity of [facility] [place] [facility] Heart rate 2020-10-13 15:00:00 115 /min [facility] [place] [facility] Respiratory rate 2020-10-13 15:00:00 22 /min [facility] [place] [facility] Oxygen saturation in 2020-10-13 15:00:00 100 /min [facility] blood by [place] [facility] Pulse oximetry Branch Body temperature 2020-10-13 09:40:00 37 Yamila [facility] [place] [facility] Body weight 2020-10-13 09:40:00 68.04 kg [facility] [place] [facility] BMI 2020-10-13 09:40:00 24.21 kg/m2 [facility] [place] [facility] Systolic blood 2020-10-13 15:00:00 145 [...] 100 /min [facility] Arterial blood by [place] [facility] Pulse oximetry Branch Body temperature 2020-10-13 [...] 100 /min [facility]terial blood by [place] [facility] Pulse oximetry Branch Body temperature 2020-09-17 [...] /min [facility] Arterial blood by [place] [facility] Pulse oximetry Branch Body temperature 2020-09-17 02:45:00 37.17 Yamila [facility] [place] [facility] Body height 2020-09-17 02:45:00 167.6 cm [facility] [place] [facility] Body weight 2020-09-17 02:45:00 65.772 kg [facility] [place] [facility] BMI 2020-09-17 02:45:00 23.40 kg/m2 [facility] [place] [facility] Systolic blood 2020-09-06 11:02:00 146 mm[Hg] Univer sity of [facility] [place] [facility] Diastolic blood 2020-09-06 11:02:00 93 mm[Hg] Unive rsity of [facility] [place] [facility] Heart rate 2020-09-06 11:02:00 97 /min [facility] [place] [facility] Respiratory rate 2020-09-06 11:02:00 21 /min [facility] [place] [facility] Oxygen saturation in 2020-09-06 11:02:00 99 /min [facility] Arterial blood by [place] [facility] Pulse oximetry Branch Body temperature 2020-09-06 10:31:00 36.17 Yamila [facility] [place] [facility] Body height 2020-09-06 09:39:00 167.6 cm [facility] [place] [facility] Body weight 2020-09-06 09:39:00 68.04 kg [facility] [place] [facility] BMI 2020-09-06 09:39:00 24.21 kg/m2 [facility] [place] [facility] Systolic blood 2020-09-06 11:02:00 146 mm[Hg] Univer sity of [facility] [place] [facility] Diastolic blood 2020-09-06 11:02:00 93 mm[Hg] Unive rsity of [facility] [place] [facility] Heart rate 2020-09-06 11:02:00 97 /min [facility] [place] [facility] Respiratory rate 2020-09-06 11:02:00 21 /min [facility] [place] [facility] Oxygen saturation in 2020-09-06 11:02:00 99 /min [facility]ial blood by [place] [facility] Pulse oximetry Branch Body temperature 2020-09-06 10:31:00 36.17 Yamila [facility] [place] [facility] Body height 2020-09-06 09:39:00 167.6 cm [facility] [place] [facility] Body weight 2020-09-06 09:39:00 68.04 kg [facility] [place] [facility] BMI 2020-09-06 09:39:00 24.21 kg/m2 [facility] [place] [facility] Systolic blood 2020-09-02 03:00:00 171 mm[Hg] Univer sity of [facility] [place] [facility] Diastolic blood 2020-09-02 03:00:00 102 mm[Hg] Unive rsity of [facility] [place] [facility] Heart rate 2020-09-02 03:00:00 100 /min [facility] [place] [facility] Body temperature 2020-09-02 03:00:00 36 Yamila [facility] [place] [facility] Respiratory rate 2020-09-02 03:00:00 17 /min [facility] [place] [facility] Oxygen saturation in 2020-09-02 03:00:00 98 /min [facility] Arterial blood by [place] [facility] Pulse oximetry Branch Body weight 2020-09-01 23:02:00 65.772 kg [facility] [place] [facility] BMI 2020-09-01 23:02:00 23.40 kg/m2 [facility] [place] [facility] Systolic blood 2020-09-02 03:00:00 171 mm[Hg] Univer sity of [facility] [place] [facility] Diastolic blood 2020-09-02 03:00:00 102 mm[Hg] Unive rsity of [facility] [place] [facility] Heart rate 2020-09-02 03:00:00 100 /min [facility] [place] [facility] Body temperature 2020-09-02 03:00:00 36 Yamila [facility] [place] [facility] Respiratory rate 2020-09-02 03:00:00 17 /min [facility] [place] [facility] Oxygen saturation in 2020-09-02 03:00:00 98 /min [facility] Arterial blood by [employer] steve Pulse oximetry Branch Body weight 2020-09-01 23:02:00 65.772 kg [facility] [place] [facility] BMI 2020-09-01 23:02:00 23.40 kg/m2 [facility] [place] [facility] Systolic blood 2020-04-14 13:08:00 143 mm[Hg] Univer sity of [facility] [place] [facility] Diastolic blood 2020-04-14 13:08:00 90 mm[Hg] Unive rsity of [facility] [place] [facility] Heart rate 2020-04-14 13:08:00 84 /min [facility] [place] [facility] Body temperature 2020-04-14 13:08:00 36.28 Yamila [facility] [place] [facility] Respiratory rate 2020-04-14 13:08:00 16 /min [facility] [place] [facility] Oxygen saturation in 2020-04-14 13:08:00 99 /min [facility] Arterial blood by [facility] Pulse oximetry Branch Body weight 2020-04-11 11:56:00 63.504 kg [facility] [place] [facility] BMI 2020-04-11 11:56:00 22.60 kg/m2 [facility] [place] [facility] Body height 2020-04-11 11:55:00 167.6 cm [facility] [place] [facility] Systolic blood 2020-04-11 05:30:00 148 mm[Hg] Univer sity of [facility] [place] [facility] Diastolic blood 2020-04-11 05:30:00 88 mm[Hg] Unive rsity of [facility] [place] [facility] Heart rate 2020-04-11 05:30:00 89 /min [facility] [place] [facility] Respiratory rate 2020-04-11 05:30:00 26 /min [facility] [place] [facility] Oxygen saturation in 2020-04-11 05:30:00 100 /min [facility] Arterial blood by [facility] Pulse oximetry Branch Body temperature 2020-04-11 04:03:00 37.17 Yamila [facility] [place] [facility] Body weight 2020-04-11 04:03:00 63.504 kg [facility] [place] [facility] BMI 2020-04-11 04:03:00 22.60 kg/m2 [facility] [place] [facility] Systolic blood 2020-04-11 02:59:52 126 mm[Hg] Univer sity of [facility] [place] [facility] Diastolic blood 2020-04-11 02:59:52 94 mm[Hg] Unive rsity of [facility] [place] [facility] Heart rate 2020-04-11 02:59:52 104 /min [facility] [place] [facility] Body temperature 2020-04-11 02:59:52 36.56 Yamila [facility] [place] [facility] Respiratory rate 2020-04-11 02:59:52 19 /min [facility] [place] [facility] Oxygen saturation in 2020-04-11 02:59:52 98 /min [facility] blood by [place] [facility] Pulse oximetry Branch Body weight 2020-04-11 01:37:00 63.504 kg [facility] [place] [facility] BMI 2020-04-11 01:37:00 22.60 kg/m2 [facility] [place] [facility] Systolic blood 2020-04-10 04:53:11 150 mm[Hg] Univer sity of [facility] [place] [facility] Diastolic blood 2020-04-10 04:53:11 101 mm[Hg] Unive rsity of [facility] [place] [facility] Heart rate 2020-04-10 04:53:11 121 /min [facility] [place] [facility] Respiratory rate 2020-04-10 04:53:11 16 /min [facility] [place] [facility] Oxygen saturation in 2020-04-10 04:53:11 99 /min [facility] Arterial blood by [facility] steve Pulse oximetry Branch Body temperature 2020-04-10 04:00:00 36.44 Yamila [facility] [place] [facility] Body weight 2020-04-10 04:00:00 68.04 kg [facility] [place] [facility] BMI 2020-04-10 04:00:00 24.21 kg/m2 [facility] [place] [facility] Systolic blood 2020-02-25 18:30:00 164 mm[Hg] Univer sity of [facility] [place] [facility] Diastolic blood 2020-02-25 18:30:00 112 mm[Hg] Unive rsity of [facility] [place] [facility] Heart rate 2020-02-25 18:30:00 107 /min [facility] [place] [facility] Respiratory rate 2020-02-25 18:30:00 23 /min [facility] [place] [facility] Oxygen saturation in 2020-02-25 18:30:00 98 /min [facility] Arterial blood by [facility] steve Pulse oximetry Branch Body temperature 2020-02-25 18:20:00 36.89 Yamila [facility] [place] [facility] Body height 2020-02-25 18:20:00 167.6 cm [facility] [place] [facility] Body weight 2020-02-25 18:20:00 68.04 kg [facility] [place] [facility] BMI 2020-02-25 18:20:00 24.21 kg/m2 [facility] [place] [facility] Systolic blood 2019-07-13 03:12:00 125 mm[Hg] Univer sity of pressure [facility] Diastolic blood 2019-07-13 03:12:00 81 mm[Hg] Unive rsity of pressure [facility] Heart rate 2019-07-13 03:12:00 75 /min [facility] Body temperature 2019-07-13 03:12:00 36.72 Yamila [facility] 2019-07-13 03:12:00 18 /min [facility] Oxygen saturation in 2019-07-13 03:12:00 99 /min [facility] Arterial blood by [facility] Pulse oximetry [place] Body weight 2019-07-12 21:01:00 72.576 kg [facility] BMI 2019-07-12 21:01:00 25.82 kg/m2 [facility] Procedures Procedure Date / Time Performing Clinician Source Performed XR CHEST 1 VW 2021-09-22 01:58:50 Georgia Estrada [facility] MAGNESIUM 2021-09-22 01:43:00 Georgia Estrada [facility] TROPONIN I 2021-09-22 01:43:00 Georgia Estrada [facility] COMP. METABOLIC PANEL 2021-09-22 01:43:00 Georgia Estrada [facility] ([id number]) [facility] POCT TEST 2021-09-22 01:43:00 Georgia Estrada [facility] N-TERMINAL PRO-BNP 2021-09-22 01:43:00 Georgia Estrada [facility] y [facility] CBC WITH DIFF 2021-09-22 01:42:00 Georgia Estrada [facility] URINALYSIS 2021-09-22 01:42:00 Georgia Estrada [facility] NOTICE OF PRIVACY 2021-09-22 01:07:45 Doctor Unassigned, No Univ [facility] Name [facility] CONSENT/REFUSAL FOR 2021-09-22 01:06:43 Doctor [facility]assigned, [facility] Name Medical [place] CHEST PULMONARY 2021-03-25 11:45:06 Arnold Coughlin [facility] ANGIOGRAM Medical Branch TROPONIN I 2021-03-25 11:31:00 Arnold Coughlin [facility] D-DIMER 2021-03-25 10:22:00 Arnold Coughlin [facility] LIPASE 2021-03-25 09:35:00 Arnold Coughlin [facility] TROPONIN I 2021-03-25 09:35:00 Arnold Coughlin [facility] COMP. METABOLIC PANEL 2021-03-25 09:35:00 Arnold Coughlin [facility] ([id number]) Medical Branch CBC WITH DIFF 2021-03-25 09:35:00 Arnold Coughlin [facility] HB ECG ROUTINE & RHYTHM 2021-03-25 08:52:[address] [facility] ACTIVATED PARTIAL 2020-11-23 10:36:00 Monique [facility] MAGNESIUM 2020-11-23 05:05:00 [facility] BASIC METABOLIC PANEL 2020-11-23 05:05:00 [facility] (NA, K, CL, CO2, Medical Branch GLUCOSE, BUN, CREATININE, CA) CBC WITH DIFF 2020-11-23 05:05:00 [facility] ACTIVATED PARTIAL 2020-11-23 05:05:00 [facility] CT ANGIOGRAM CHEST 2020-11-22 20:21:07 [facility] POCT TEST 2020-11-22 19:43:00 Rosmery Mai [facility] TROPONIN I 2020-11-22 19:38:00 [facility] FREE T4 2020-11-22 19:38:00 [facility] THYROID STIMULATING 2020-11-22 19:38:00 [facility] HORMONE [facility] LIPID PANEL 2020-11-22 19:38:00 Monique [facility] ([id number])(TOTAL Medical Branch CHOLESTEROL, TRIGLYCERIDES, HDL) COVID-19 (ID NOW RAPID 2020-11-22 19:18:00 Carmen Lott [facility] TESTING) Medical [place] TROPONIN I 2020-11-22 14:45:00 SergeiSadi chambersCindyChris [facility] XR CHEST 1 VW 2020-11-22 12:41:09 Miguelito Salter [facility] URINE DRUG (IMMUNOASSAY) 2020-11-22 11:53:00 Miguelito Salter [facility] SCREEN URINALYSIS 2020-11-22 11:53:00 Miguelito Salter [facility] CK (CREATINE KINASE) + 2020-11-22 11:52:00 Miguelito Salter [facility] MB [facility] LIPASE 2020-11-22 11:52:00 Miguelito Salter [facility] TROPONIN I 2020-11-22 11:52:00 Miguelito Salter [facility] COMP. METABOLIC PANEL 2020-11-22 11:52:00 Miguelito Salter [facility] ([id number]) Medical Branch ETHANOL 2020-11-22 11:52:00 Miguelito Salter [facility] SERUM DRUG (IMMUNOASSAY) 2020-11-22 11:52:00 Miguelito Salter [facility] SCREEN CBC WITH DIFF 2020-11-22 11:52:00 Miguelito Salter [facility] GLYCOSYLATED HEMOGLOBIN 2020-11-22 11:52:00 [facility] D-DIMER 2020-11-22 11:52:00 Miguelito Salter [facility] POCT TEST 2020-10-22 10:12:00 Chaka Steinberg [facility] URINE DRUG (IMMUNOASSAY) 2020-10-22 10:10:00 Chaka Steinberg [facility] SCREEN URINALYSIS 2020-10-22 10:10:00 Chaka Steinberg [facility] TROPONIN I 2020-10-22 09:34:00 Chaka Steinberg [facility] CT ABDOMEN PELVIS W 2020-10-22 08:02:55 Chaka Steinberg [facility] CONTRAST Medical Branch XR CHEST 1 VW 2020-10-22 07:40:59 Chaka Steinberg [facility] COVID-19 (ID NOW RAPID 2020-10-22 07:38:00 Chaka Steinberg [facility] TESTING) Medical Branch LIPASE 2020-10-22 07:37:00 Chaka Steinberg [facility] TROPONIN I 2020-10-22 07:37:00 Cece Steinbergian Robin [facility] HEPATIC FUNCTION PANEL 2020-10-22 07:37:00 Chaka Steinberg [facility] ([id number]) (ALB,T.PRO,BILI Medical Branch T,BU/BC,ALT,AST,ALK PHOS) BASIC METABOLIC PANEL 2020-10-22 07:37:00 Chaka Steinberg [facility] (NA, K, CL, CO2, Medical Branch GLUCOSE, BUN, CREATININE, CA) ETHANOL 2020-10-22 07:37:00 Cece Steinbergian Robin [facility] CBC WITH DIFF 2020-10-22 07:37[facility]00 [facility] 2020-10-15 14:58:00 Sergei [facility] LIPASE 2020-10-15 14:58:00 Sergei [facility] TEST, SERUM 2020-10-15 14:58:00 Sergei [facility] TROPONIN I 2020-10-15 14:58:00 Sergei [facility] HEPATIC FUNCTION PANEL 2020-10-15 14:58:00 Sergei [facility] ([id number]) (ALB,T.PRO,BILI Medical Branch T,BU/BC,ALT,AST,ALK PHOS) BASIC METABOLIC PANEL 2020-10-15 14:58:00 Sergei, [facility] (NA, K, CL, CO2, Medical Branch GLUCOSE, BUN, CREATININE, CA) N-TERMINAL PRO-BNP 2020-10-15 14:58:00 Sergei [facility] XR CHEST 2 VW 2020-10-15 13:47:20 Sergei [facility] CT HEAD WO CONTRAST 2020-10-15 13:37:33 Sergei [facility] CREATINE KINASE 2020-10-15 13:27:00 [facility] [facility] [place] LIPASE 2020-10-15 13:27:00 Sergei [facility] TROPONIN I 2020-10-15 13:27:00 Sergei [facility] N-TERMINAL PRO-BNP 2020-10-15 13:27:00 Sergei [facility] POCT TEST 2020-10-13 11:13:00 Gage Torres [facility] COMP. METABOLIC PANEL 2020-10-13 11:06:00 Gage Torres [facility] ([id number]) [facility] EXTRA TUBE ORANGE 2020-10-13 11:06:00 Gage Torres [facility] EXTRA TUBE LT. GREEN 2020-10-13 11:06:00 Gage Torres [facility] URINE DRUG (IMMUNOASSAY) 2020-10-13 11:01:00 Gage Torres [facility] SCREEN URINALYSIS 2020-10-13 11:01:00 Gage Torres [facility] CBC WITH DIFF 2020-10-13 10:41:00 Gage Torres [facility] XR CHEST 1 VW 2020-10-13 10:40:00 Gage Torres [facility] PROTHROMBIN TIME / INR 2020-10-13 10:26:[address] [facility] D-DIMER 2020-10-13 10:26:00 Gage Torres [facility] ACTIVATED PARTIAL 2020-10-13 10:26:00 Gage Torres [facility] THRMPLAS CHER [facility] TROPONIN I 2020-10-13 10:09:00 Gage Torres [facility] THYROID STIMULATING 2020-10-13 10:09:00 Gage Torres [facility] HORMONE [facility] ETHANOL 2020-10-13 10:09:00 Gage Torres [facility] EXTRA TUBE ORANGE 2020-10-13 10:09:00 Gage Torres [facility] EXTRA TUBE LT. GREEN 2020-10-13 10:09:00 Gage Torres [facility] LIPASE 2020-10-13 10:09:00 Gage Torres [facility] COVID-19 (ID NOW RAPID 2020-10-13 10:06:00 Gage Torres [facility] TESTING) Medical Branch LIPASE 2020-09-17 03:02:00 William [facility] TEST, SERUM 2020-09-17 03:02:00 [facility] FUN[facility] PANEL 2020-09-17 03:02:00 William [facility] ([id number]) (ALB,T.PRO,BILI [facility] T,BU/BC,ALT,AST,ALK PHOS) BASIC METABOLIC PANEL 2020-09-17 03:02:00 [facility] ([facility], K, CL, CO2, Medical Branch GLUCOSE, BUN, CREATININE, CA) CBC WITH DIFF 2020-09-17 03:02[facility] PELVIS W 2020-09-06 11:31:59 Arnold Coughlin [facility] CONTRAST [facility] XR CHEST 1 VW 2020-09-06 10:03:21 Arnold Coughlin [facility] CBC WITH DIFF 2020-09-06 09:58:00 Arnold Coughlin [facility] LIPASE 2020-09-06 09:57:00 Arnold Coughlin [facility] TROPONIN I 2020-09-06 09:57:00 Arnold Coughlin [facility] COMP. METABOLIC PANEL 2020-09-06 09:57:00 Arnold Coughlin [facility] ([id number]) Medical Branch N-TERMINAL PRO-BNP 2020-09-06 09:57:00 Arnold Coughlin [facility] D-DIMER 2020-09-02 02:24:00 Ana Sommers [facility] COVID-19 (ID NOW RAPID 2020-09-02 00:10:00 Ana Sommers [facility] TESTING) Medical Branch LIPASE 2020-09-02 00:07:00 Ana Sommers [facility] TROPONIN I 2020-09-02 00:07:00 Ana Sommers [facility] THYROID STIMULATING 2020-09-02 00:07:00 Ana Sommers [facility] HORMONE [facility] HEPATIC FUNCTION PANEL 2020-09-02 00:07:00 Ana Sommers [facility] ([id number]) (ALB,T.PRO,BILI [facility] T,BU/BC,ALT,AST,ALK PHOS) BASIC METABOLIC PANEL 2020-09-02 00:07:00 Ana Sommers [facility] (NA, K, CL, CO2, Medical Branch GLUCOSE, BUN, CREATININE, CA) CBC WITH DIFF 2020-09-02 00:07:00 Ana Sommers [facility] N-TERMINAL PRO-BNP 2020-09-02 00:07:00 Ana Sommers [facility] XR CHEST 1 VW 2020-09-02 00:02:14 Ana Sommers [facility] NOTICE OF PRIVACY 2020-09-01 22:34:26 Doctor Unassigned, No [facility] PRACTICES Name [facility] CONSENT/REFUSAL FOR 2020-09-01 22:34:08 Doctor Unassigned, No [facility] DIAGNOSIS AND TREATMENT Name Medical [place] BASIC METABOLIC PANEL 2020-04-12 10:18:00 Buddy Montes [facility] (NA, K, CL, CO2, Medical Branch GLUCOSE, BUN, CREATININE, CA) CBC WITH DIFF 2020-04-12 10:18:00 Buddy Montes [facility] Medical Branch XR FOREARM 2 VW LEFT 2020-04-11 17:54:00 [facility] XR HAND 3+ VW LEFT 2020-04-11 17:54:00 Jennifer [facility] y [facility] XR WRIST 3+ VW LEFT 2020-04-11 17:54:00 Jennifer [facility] ty [facility] XR ANKLE 3+ VW LEFT 2020-04-11 12:47:[address] [facility] XR FOOT 3+ VW LEFT 2020-04-11 12:47:35 Clay Garay [facility] XR TIBIA FIBULA 2 VW 2020-04-11 12:47:35 Clay Garay [facility] CT TRAUMA HEAD WO 2020-04-11 12:41:26 Clay Garay [facility] CONTRAST [facility] CT TRAUMA THORAX W 2020-04-11 12:41:26 Clay Garay [facility] CONTRAST [facility] CT TRAUMA CERVICAL SPINE 2020-04-11 12:41:26 Tanisha [facility] CONTRAST Medical [facility] CT TRAUMA THORACIC SPINE 2020-04-11 12:41:26 Tanisha [facility] CONTRAST [facility] CT TRAUMA ABDOMEN PELVIS 2020-04-11 12:41:26 Tanisha [facility] CONTRAST Medical [facility] CT TRAUMA LUMBAR SPINE 2020-04-11 12:41:26 Clay Garay [facility] CONTRAST Medical Branch HB ABO GROUPING 2020-04-11 12:20:00 John [facility] BASIC METABOLIC PANEL 2020-04-11 12:17:00 John Grace [facility] (NA, K, CL, CO2, [place] Medical Branch GLUCOSE, BUN, CREATININE, CA) CBC WITHOUT DIFF 2020-04-11 12:17:00 [facility] PROTHROMBIN TIME / INR 2020-04-11 12:17:[address] [facility] ACTIVATED PARTIAL 2020-04-11 12:17:00 Sanjay [facility] THRMPLAS CHER [facility] EKG-12 LEAD 2020-04-11 04:23:07 Gage Torres [facility] TROPONIN I 2020-04-11 01:53:00 Vamshi [facility] EKG-12 LEAD 2020-04-11 01:46:16 Vamshi [facility] ADC / LCC - DRUG SCREEN 2020-04-10 05:19:00 Singer [facility] TRIAGE [facility] XR CHEST 1 VW 2020-04-10 04:26:18 Singer [facility] COVID-19 (ID NOW RAPID 2020-04-10 04:15:00 Singer Wiley [facility] TESTING) Medical Branch D-DIMER 2020-04-10 04:14:00 Singer [facility] LIPASE 2020-04-10 04:11:00 Singer [facility] MAGNESIUM 2020-04-10 04:11:00 [facility] TROPONIN I 2020-04-10 04:11:00 [facility] COMP. METABOLIC PANEL 2020-04-10 04:11:00 Wiley Gay [facility] ([id number]) [facility] CBC WITH DIFF 2020-04-10 04:11:00 Singer [facility] N-TERMINAL PRO-BNP 2020-04-10 04:11:00 Singer Wiley [facility] EKG-12 LEAD 2020-04-10 03:55:43 Singer [facility] NOTICE OF PRIVACY 2020-04-10 03:51:52 Doctor Unassigned, No [facility] PRACTICES Name Medical Branch CONSENT/REFUSAL FOR 2020-04-10 03:51:01 [facility]igned, [facility] Name Medical Branch COMP. METABOLIC PANEL 2020-02-25 18:39:00 Georgia [facility] ([id number]) [facility] CBC WITH DIFF 2020-02-25 18:39:00 Georgia Estrada [facility] EKG-12 LEAD 2020-02-25 18:27:17 Georgia Estrada [facility] CT ABDOMEN PELVIS W 2019-07-13 00:47:46 Diego Shelby B [facility] POCT TEST 2019-07-13 00:29:00 Diego Shelby B Univers [facility] LIPASE 2019-07-12 23:07:00 Diego Shelby [facility] COMP. METABOLIC PANEL 2019-07-12 23:07:00 Diego [facility] ([id number]) [facility] CBC WITH DIFFERENTIAL 2019-07-12 23:07:00 Lucia Diego B Unive [facility] URINALYSIS 2019-07-12 23:07:00 Diego Shelby B [facility] XR CHEST 1 VW 2019-03-06 16:21:04 Andressa Christianson [facility] Encounters Start End Encounter Admission Attending Care Care Encounter Source Date/Time Date/Time Type Type Clinicians Facility Department ID 2021 Outpatient AVANI VARMA [id number] [place]RISTU 20:48:43 -[id number] [facility] 2021 Outpatient AVANI VARMA [id number] [place] 20:48:43 [id number] [facility] 2021-09-21 2021-09-21 Emergency Georgia Estrada [facility] 1.2.840. 114 [id number] Univers 20:28:00 22:36:00 [place] Vazquez SINTON [id number] [facility] 4.2.7.2.686 [facility] [id number] [facility] 084 Branch 2021-09-21 2021-09-21 Emergency X Villa VAZQUEZ [facility] ERT [id number] Univers 20:28:00 22:36:00 [facility] 2021-03-25 2021-03-25 Emergency KEVIN Coughlin 1.2.183.735 [id number] Univers 03:49:00 11:27:00 Arnold Huynh 350.1.13.10 ity [place] [address] [place] [address] [id number] [facility] 084 Branch 2021-03-25 2021-03-25 Emergency X [facility] [id number] Univers 03:49:00 03:49:00 WAKILI ity of [facility] 2020-12-01 2020-12-01 Letter Melanie Kolb 1.2.840.114 [id number] 00:00:00 00:00:00 (Out) Adal Julian 350.1.13.10 [place] [address]..2.68 [id number] 09 2020-12-01 2020-12-01 Letter Melanie Kolb 1.2.840.114 [id number] Univers 00:00:00 00:00:00 (Out) Adal Julian 350.1.13.10 it y of [place] [address] [place] [address] [id number] [place] [address] Branch 2020-11-22 2020-11-23 [facility] 1.2.840.11 [id number] 06:16:00 14:46:00 Encounter SergeiSadiAnkit Julian 350.1.13.10 [place] [address]..2.[facility] [id number] [facility] 2020-11-22 2020-11-23 [facility] 1.2.840.11 [id number] Univers 06:16:00 14:46:00 Encounter SergeiSadiCindyChrisdave Julian 350.1.13.10 ity [place] [address] [place] [address] [id number] [place] [address] Branch 2020-11-22 2020-11-23 Outpatient X [facility] [id number] Univers 06:16:00 14:46:00 ADAL ity [facility] 2020-10-22 2020-10-22 Emergency Chaka Steinberg TRAUMA 1.2.840.114 [id number] 02:04:00 07:32:00 W CENTER 350.1.13.10 4.2.7.2.686 [id number] 014 2020-10-22 2020-10-22 Emergency Chaka Steinberg TRAUMA 1.2.840.114 [id number] Univers 02:04:00 07:32:00 W CENTER 350.1.13.10 [place] [id number] [address] 2020-10-22 2020-10-22 Emergency X CHAKA STEINBERG [facility] ERT [id number] Univers 02:04:00 07:32:00 ity of [facility] 2020-10-19 2020-10-20 Emergency TRAUMA 1.2.568.756 [id number] 23:59:00 00:57:00 CENTER 350.1.13.10 4.2.7.2.686 [id number] 014 2020-10-19 2020-10-20 Emergency TRAUMA 1.2.246.346 [id number] Univers 23:59:00 00:57:00 CENTER 350.1.13.10 [place] [id number] [address] 2020-10-19 2020-10-20 Emergency X UNKNOWN, [facility] ERT [id number] Univers 23:59:00 00:57:00 ATTENDING ity of [facility] 2020-10-15 2020-10-15 Emergency Sergei, TRAUMA 1.2.436.975 [id number] 07:37:00 15:30:00 [facility] CENTER 350.1.13.10 4.2.7.2.686 [id number] 014 2020-10-15 2020-10-15 Emergency Sergei, TRAUMA 1.2.799.628 [id number] 0004 Univers 07:37:00 15:30:00 [facility] CENTER 350.1.13.10 [place] [id number] [address] 2020-10-15 2020-10-[address] [facility] ERT [id number] Univers 07:28:00 07:28:00 ity [facility] 2020-10-13 2020-10-13 Emergency Melissa, Gage E TRAUMA 1.2.840 .114 [id number] 04:42:00 11:13:00 Miguelito Salter CENTER 350.1.13.10 Moises Anderson 4.2.7.2.68 [id number] 014 2020-10-13 2020-10-13 Emergency Melissa, Gage E TRAUMA 1.2.840 .114 [id number] Univers 04:42:00 11:13:00 Miguelito Salter [facility] 350.1.13.10 ity Moises Anderson 4.2.7.2.686 [place] [id number] [facility] 014 [place] 2020-10-13 2020-10-13 Emergency X MELISSA, [facility] ERT [id number] Univers 04:42:00 04:42:00 GAGE canales [facility] 2020-09-16 2020-09-17 Emergency William, [facility] 1.2.100.406 [id number] 21:39:00 00:11:00 Hoang Huynh 350.1.13.[address] [place] [address] [place] [address] [id number] [facility] 2020-09-16 2020-09-17 Emergency William, [facility] 1.2.538.265 [id number] Univers 21:39:00 00:11:00 Hoang Huynh 350.1.13.10 i ty of [place] 4.2.7.2.[address] [place] [address] [id number] [facility] 084 [place] 2020-09-16 2020-09-16 Emergency X WILLIAM, [facility] ERT [id number] Univers 21:39:00 21:39:00 HOANG canales [facility] 2020-09-12 2020-09-12 Emergency X , [facility] ERT [id number] Univers 05:03:00 06:28:00 WILEY parker [facility] 2020-09-06 2020-09-06 Emergency [facility] 1.2.746.791 [id number] 04:37:00 07:13:00 Arnold Daniel Lino 350.1.13.10 [place] 4.2.7.2.686 [place] [id number] 2020-09-06 2020-09-06 Emergency [facility] [id number] [id number] Univers 04:37:00 07:13:00 Arnold Daniel Lino 350.1.13.10 ity of [place] 4.2.7.2.686 [facility] [id number] [place] 113584 Branch 2020-09-06 2020-09-06 Emergency X [facility] ERT [id number] Univers 04:37:00 07:13:00 ARNOLD ity of [facility] 2020-09-01 2020-09-01 Emergency [facility] 1.2.722.595 [id number] Univers 17:06:00 21:39:00 Ana Shepherd Lino 350.1.13.10 ity of [place] 4.2.7.2.6 [facility] [id number] [facility] 084 Branch 2020-09-01 2020-09-01 Emergency [facility] 1.2.078.043 [id number] 17:06:00 21:39:00 Ana Shepherd Lino 350.1.13.[address] [place] [address] [place] [address] [id number] 08 2020-09-01 2020-09-[address] [facility] ERT [id number] Univers 16:36:00 16:36:00 ity of [facility] 2020-09-01 2020-09-01 Orders Doctor GOODWIN 1.2.840.114 [id number] Univers 00:00:00 00:00:00 Only Unassigned, MAGDY 350.1.13.10 ity of [facility] 4.2.7.2.686 [facility] [id number] [facility] 009 Branch 2020-09-01 2020-09-01 Orders Doctor GOODWIN 1.2.840.114 [id number] 00:00:00 00:00:00 Only Unassigned, MAGDY 350.1.13.10 [facility] 4.2.7.2.686 [id number] 2020-04-15 2020-04-15 Transition Francisco Price 1.2.840.114 [id number] Univers 00:00:00 00:00:00 of Care Rafaela Morin 350.1.13.10 i ty of [place] [id number] [facility] 403 Branch 2020-04-15 2020-04-15 Transition Francisco Price 1.2.840.114 [id number] 00:00:00 00:00:00 of Care Rafaela Morin 350.1.13.10 [place] 4.2.7.2.686 [id number] 2020-04-11 2020-04-14 [facility] Melanie Brewer 1.2.554.848 [id number] Univers 06:55:00 20:35:00 Encounter Pedrito Julian 350.1.13.10 ity of Hospital 4.2.7.2.686 Vishal as [id number] [facility] 098 Branch 2020-04-11 2020-04-[address] [facility] STR [id number] Univers 06:55:00 06:55:00 ity of [facility] 2020-04-10 2020-04-11 Emergency Melissa, TRAUMA 1.2.058.765 [id number] Univers 23:04:00 01:06:00 aGge SANDY 350.1.13.10 [place] [id number] [facility] 014 Branch 2020-04-10 2020-04-10 Emergency X MEILSSA, [facility] ERT [id number] Univers 23:04:00 23:04:00 GAGE canales of [facility] 2020-04-10 2020-04-10 Emergency Vamshi, Opal TRAUMA 1.2.840. 114 [id number] Univers 20:37:00 22:02:00 Pedrito Rosado 350.1.13.10 [place] [id number] [facility] 014 Branch 2020-04-10 2020-04-10 Emergency X MIGUEL, [facility] ERT [id number] Univers 20:37:00 20:37:00 PEDRITO canales [facility] 2020-04-09 2020-04-10 Emergency [facility] 1.2.633.981 [id number] Univers 22:56:00 00:49:00 Wiley Huynh 350.1.13.10 i ty of [place] [id number] [address] 2020-04-09 2020-04-09 Emergency X [facility] ERT [id number] Univers 22:49:00 22:49:00 WILEY canales [facility] 2020-02-25 2020-02-25 Emergency [facility] 1.2.682.444 [id number] Univers 13:23:00 14:09:00 Georgia Huynh 350.1.13.10 i ty of [place] [id number] [address] 2020-02-25 2020-02-25 Emergency [facility] [id number] Univers 13:23:00 13:23:00 GEORGIA canales [facility] 2019-07-12 2019-07-12 Emergency Unknown, Attending TRAUMA 1.2.8 40.114 [id number] Univers 15:04:04 21:14:00 Gladys Marley [facility] 350.1.13. 10 [place] [id number] [facility] 014 Branch 2019-07-12 2019-07-12 Emergency [facility]RT [id number] Univers 15:04:04 21:14:00 GLADYS canales [facility] 2019-03-06 2019-03-06 Hospital Sammy, [place] 1.2.840.114 [id number] Univers 11:16:49 23:59:00 Encounter Andressa Izzy Quiñones [facility] 350.1.13.10 ity of [place] [id number] [facility] 807 [place] Results Test Description Test Time Test Comments Results Result Comments Source TROPONIN I 2021-09-22 02:32:27 Test Item Value Reference Range Interpretation Comme nts TROPONIN I (test code = 0.006 ng/mL See_Comment [Au tomated message] The 4357160235) system which Loftware nerated this result tra nsmitted reference range [...] biotin. Lab Interpretation Normal (test code = 92730-2) [facility] [id number] 02:29:25 Test Item Value Reference Range Interpretation Comments NT-proBNP (test code 77 pg/mL See_Comment [Autom ated = 1402514609) message] The system which generated this result transmitted reference range : <=125. The reference range was not used to interpret this result as normal/abnormal . PAULA (test code = PAULA) Biotin has been reported to cause a negative bias, interpret results relative to patient's use of biotin. Lab Interpretation Normal (test code = 33553-1) [facility] WITH [id number] 02:21:26 Test Item Value Reference Range Interpretation Comments WBC (test code = See_Comment [Automated message] The 6690-2) system which Loftware nerated this result tra nsmitted reference range : 4.30 - 11.10 10*3/?L. The reference range was not used to interpr et this result as normal/abnormal . RBC (test code = See_Comment [Automated message] The 789-8) system which Loftware nerated this result tra nsmitted reference range [...] RDW-SD (test code 45.0 fL 39.0-49.9 = 55013-8) RDW-CV (test code 13.6 % 12.0-15.5 = 788-0) PLT (test code = See_Comment [Automated message] The 777-3) system which Loftware nerated this result tra nsmitted reference range : 166 - 358 10*3/?L. Th e reference range was not used to interpr et this result as normal/abnormal . MPV (test code = 10.5 fL 9.5-12.9 87689-1) IPF % (test code 3.1 % 1.3-7.7 Platelet co unt measured = 3190325556) by fluorescenc e method. NRBC/100 WBC See_Comment [Automated mes joe] The (test code = system which Loftware nerated 5760686257) this result tra nsmitted reference range : 0.0 - 10.0 /100 WBCs. The reference range was not used to interpr et this result as normal/abnormal . NRBC x10^3 (test <0.01 See_Comment [Automated message] The code = system which Loftware nerated 3475833241) this result tra nsmitted reference range : 10*3/?L. The re ference range was not u sed to interpret this result as normal/abnormal . GRAN MAT (NEUT) % 75.4 % (test code = 770-8) IMM GRAN % (test 0.50 % code = 4944286299) LYMPH % (test 15.8 % code = 736-9) MONO % (test code 6.8 % = 5905-5) EOS % (test code 0.9 % = 713-8) BASO % (test code 0.6 % = 706-2) GRAN MAT 6.46 10*3/uL 1.88-7.09 x10^3(ANC) (test code = 9488276675) IMM GRAN x10^3 0.04 10*3/uL 0.00-0.06 (test code = 7275598671) LYMPH x10^3 (test 1.35 10*3/uL 1.32-3.29 code = 731-0) MONO x10^3 (test 0.58 10*3/uL 0.33-0.92 code = 742-7) EOS x10^3 (test 0.08 10*3/uL 0.03-0.39 code = 711-2) BASO x10^3 (test 0.05 10*3/uL 0.01-0.07 code = 704-7) [facility] 02:21:06 Test Item Value Reference Range Interpretation Comments MAGNESIUM (test code = 1599418342) 2.0 mg/dL 1.7-2.4 Lab Interpretation (test code = Normal 07345-7) [facility] (55397)2021-09-22 02:20:45 Test Item Value Reference Range Interpretation Comments NA (test code = 136 mmol/L 135-145 7784602068) K (test code = 4.7 mmol/L 3.5-5.0 9643464799) CL (test code = 106 mmol/L 98-108 9973032822) CO2 TOTAL (test code = 17 mmol/L 23-31 L 0856221207) AGAP (test code = 2-16 7964115487) BUN (test code = 10 mg/dL 7-23 4472808250) GLUCOSE (test code = 99 mg/dL 70-110 4427349329) CREATININE (test code = 0.50 mg/dL 0.50-1.04 7623093749) TOTAL BILI (test code = 0.9 mg/dL 0.1-1.5 8027456603) CALCIUM (test code = 8.9 mg/dL 8.6-10.6 4698906836) T PROTEIN (test code = 8.3 g/dL 6.3-8.2 H 8301376976) ALBUMIN (test code = 4.8 g/dL 3.5-5.0 4521691449) ALK PHOS (test code = 66 U/L 34-122 7092605812) ALTv (test code = 22 U/L 5-35 1742-6) AST(SGOT) (test code = 40 U/L 13-40 0217595674) eGFR (test code = mL/min/1.73m2 1264173251) PAULA (test code = PAULA) Association of [...] tests). Lab Interpretation Abnormal (test code = 55352-4) [facility] [id number] 01:43:00 Test Item Value Reference Range Interpretation Comments POCT PREG (test code = 1605) negative On board controls acceptable with present C Line (test code = 3574) POCT PREG LOT # (test code = 3575) [id number] POCT PREG TEST DATE (test 2022-08-23 code = 3576) Lab Interpretation (test code = Normal 68951-0) [facility] [id number] 12:15:08 Test Item Value Reference Interpretation Comments Range TROPONIN I (test 0.009 ng/mL See_Comment [Automated code = 3072265058) message] The system which generated this result [...] biotin. Lab Interpretation Normal (test code = 52429-7) [id number] 10:51:58 Test Item Value Reference Interpretation Comments Range D-DIMER (test code = See_Comment H [Autom ated 4539939098) message] The system which generated this result [...] diagnosis. Lab Interpretation Abnormal (test code = 43331-5) [facility] [id number] 10:39:17 Test Item Value Reference Range Interpretation [...] (test code = 51.8 fL 39.0-49.9 H 76739-4) RDW-CV (test code = 15.7 % 12.0-15.5 H 788-0) PLT (test code = See_Comment [Automated 777-3) message] The sy stem which generated this result transmitted reference range : 166 - 358 10*3/ ?L. The reference r micah was not used to interpret this result as normal/abnormal . MPV (test code = 10.2 fL 9.5-12.9 36190-0) IPF % (test code = 1.9 % 1.3-7.7 Platelet count 6432856321) measured by fluorescence method. NRBC/100 WBC (test See_Comment [Automat ed code = 7490738988) message] The system which generated this result transmitted reference range : 0.0 - 10.0 /100 WBCs. The refer ence range was not u sed to interpret th is result as normal/abnormal . NRBC x10^3 (test code <0.01 See_Comment [Auto mated = 9037659614) message] The s ystem which generated this result transmitted reference range : 10*3/?L. The reference range was not used to interpret this result as normal/abnormal . GRAN MAT (NEUT) % 63.4 % (test code = 770-8) IMM GRAN % (test code 0.20 % = 8162067035) LYMPH % (test code = 24.2 % 736-9) MONO % (test code = 10.4 % 5905-5) EOS % (test code = 0.9 % 713-8) BASO % (test code = 0.9 % 706-2) GRAN MAT x10^3(ANC) 3.34 10*3/uL 1.88-7.09 (test code = 6141428485) IMM GRAN x10^3 (test <0.03 0.00-0.06 code = 0551509471) LYMPH x10^3 (test code 1.28 10*3/uL 1.32-3.29 L = 731-0) MONO x10^3 (test code 0.55 10*3/uL 0.33-0.92 = 742-7) EOS x10^3 (test code = 0.05 10*3/uL 0.03-0.39 711-2) BASO x10^3 (test code 0.05 10*3/uL 0.01-0.07 = 704-7) PLT ESTIMATE (test Normal Normal code = 9317-9) Lab Interpretation Abnormal (test code = 50598-6) [id number] 10:26:56 Test Item Value Reference Interpretation Comments Range TROPONIN I (test 0.011 ng/mL See_Comment [Automated code = 4806983661) message] The system which generated this result [...] biotin. Lab Interpretation Normal (test code = 84506-0) [facility]. METABOLIC PANEL (91459)2021-03-25 10:15:34 Test Item Value Reference Range Interpretation Comments NA (test code = 141 mmol/L 135-145 3392838469) K (test code = 3.7 mmol/L 3.5-5.0 4227174789) CL (test code = 108 mmol/L 98-108 6646867292) CO2 TOTAL (test code = 23 mmol/L 23-31 3153789658) AGAP (test code = 2-16 5594740903) BUN (test code = 6 mg/dL 7-23 L 6971085494) GLUCOSE (test code = 108 mg/dL 70-110 8949779327) CREATININE (test code = 0.65 mg/dL 0.50-1.04 1565220691) TOTAL BILI (test code = 0.4 mg/dL 0.1-1.3 4695984734) CALCIUM (test code = 8.7 mg/dL 8.6-10.6 6614359999) T PROTEIN (test code = 7.9 g/dL 6.3-8.2 6563863059) ALBUMIN (test code = 4.3 g/dL 3.5-5.0 6417705024) ALK PHOS (test code = 72 U/L 34-122 7478715484) ALTv (test code = 31 U/L 5-35 1742-6) AST(SGOT) (test code = 45 U/L 13-40 H 2181168837) eGFR (test code = mL/min/1.73m2 5650821321) PAULA (test code = PAULA) Association of [...] tests). Lab Interpretation Abnormal (test code = 51163-7) [facility] 10:15:34 Test Item Value Reference Range Interpretation Comments LIPASE (test code = 2683076709) 54 U/L 0-220 Lab Interpretation (test code = Normal 52700-3) [facility]aPTT (for use with Heparin Drip)2020-11-23 11:10:10 Test Item Value Reference Range Interpretation Comments APTT Patient (test code See_Comment H [Au tomated message] = 3173-2) The system Datanyze generated this result transmitted ref erence range: 26 - 36 Seconds. The reference range was not used to int erpret this result as normal/abnormal . Lab Interpretation (test Abnormal code = 30265-7) [facility]Basic [facility] (NA, K, CL, CO2, GLUCOSE, BUN, CREATININE, CA)2020-11-23 05:36:05 Test Item Value Reference Range Interpretation Comments NA (test code = 133 mmol/L 135-145 L 8436537978) K (test code = 3.6 mmol/L 3.5-5.0 9627714221) CL (test code = 105 mmol/L 98-108 1377969325) CO2 TOTAL (test code = 24 mmol/L 23-31 7724698512) AGAP (test code = 2-16 9577495434) BUN (test code = 11 mg/dL 7-23 6753734254) GLUCOSE (test code = 104 mg/dL 70-110 6312145634) CREATININE (test code = 0.64 mg/dL 0.50-1.04 0494001337) CALCIUM (test code = 8.4 mg/dL 8.6-10.6 L 9266165167) eGFR (test code = mL/min/1.73m2 3659645291) PAULA (test code = PAULA) Association of [...] tests). Lab Interpretation Abnormal (test code = 83446-8) [facility] HospitalMagnesium Najol0831-87-92 05:36:05 Test Item Value Reference Range Interpretation Comments MAGNESIUM (test code = 2759856016) 2.1 mg/dL 1.7-2.4 Lab Interpretation (test code = Normal 44158-1) [facility] HospitalAnish (for use with Heparin Drip)2020-11-23 05:25:43 Test Item Value Reference Range Interpretation Comments APTT Patient (test code See_Comment H [Au tomated message] = 3173-2) The system Azingo h generated this result transmitted ref erence range: 26 - 36 Seconds. The reference range was not used to int erpret this result as normal/abnormal . Lab Interpretation (test Abnormal code = 19226-3) [facility] with Myfzcakbpdef1677-13-67 05:11:43 Test Item Value Reference Range Interpretation Comments WBC (test code = See_Comment [Automated 1590-2) message] The sy stem which generated this [...] RDW-SD (test code = 43.7 fL 39.0-49.9 68836-9) RDW-CV (test code = 13.1 % 12.0-15.5 788-0) PLT (test code = See_Comment [Automated 777-3) message] The sy stem which generated this result transmitted reference range : 166 - 358 10*3/ ?L. The reference r micah was not used to interpret this result as normal/abnormal . MPV (test code = 9.2 fL 9.5-12.9 L 45120-5) NRBC/100 WBC (test See_Comment [Automat ed code = 1713210840) message] The system which generated this result transmitted reference range : 0.0 - 10.0 /100 WBCs. The refer ence range was not u sed to interpret th is result as normal/abnormal . NRBC x10^3 (test code <0.01 See_Comment [Auto mated = 1978136075) message] The s ystem which generated this result transmitted reference range : 10*3/?L. The reference range was not used to interpret this result as normal/abnormal . GRAN MAT (NEUT) % 58.2 % (test code = 770-8) IMM GRAN % (test code 0.50 % = 2164788721) LYMPH % (test code = 28.4 % 736-9) MONO % (test code = 8.9 % 5905-5) EOS % (test code = 3.3 % 713-8) BASO % (test code = 0.7 % 706-2) GRAN MAT x10^3(ANC) 3.53 10*3/uL 1.88-7.09 (test code = 3063671935) IMM GRAN x10^3 (test 0.03 10*3/uL 0.00-0.06 code = 6052573870) LYMPH x10^3 (test code 1.72 10*3/uL 1.32-3.29 = 731-0) MONO x10^3 (test code 0.54 10*3/uL 0.33-0.92 = 742-7) EOS x10^3 (test code = 0.20 10*3/uL 0.03-0.39 711-2) BASO x10^3 (test code 0.04 10*3/uL 0.01-0.07 = 704-7) Lab Interpretation Abnormal (test code = 39042-3) [facility] HospitalXR CHEST 1 [id number] 00:27:06 No acute cardiopulmonary abnormality. Preliminary Report [...] reviewed this study and agree with theabove report.[facility] HospitalTHYROID STIMULATING [id number] 22:15:04 Test Item Value Reference Range Interpretation Comments TSH (test code = See_Comment [Automated message] 5300736703) The system Datanyze generated this result transmitted ref erence range: 0.45 - 4 .70 mIU/L. The refe rence range was not u sed to interpret this result as normal/abnor mal. Lab Interpretation (test Normal code = 32004-3) [facility] HospitalGLYCOSYLATED HEMOGLOBIN (A1C)2020-11-22 22:14:59 Test Item Value Reference Range Interpretation Comments HGB A1C (test code = 5.1 % 4.0-5.7 4548-4) PAULA (test code = PAULA) Reference RangesNormal: <5.7%Prediabetes: 5.7 - 6.4%Diabetes: > 6.5% Lab Interpretation (test Normal code = 30844-0) [facility] HospitalFREE [id number] 22:01:07 Test Item Value Reference Range Interpretation Comments FREE T4 (test code = See_Comment [Autom ated message] 2791793648) The system Datanyze generated this result transmitted ref erence range: 0.78 - 2 .20 ng/dL:. The ref erence range was not u sed to interpret this result as normal/abnor mal. Lab Interpretation (test Normal code = 01960-7) [facility] HospitalLIPID PANEL (50817)(TOTAL CHOLESTEROL, TRIGLYCERIDES, HDL)2020-11-22 21:44:08 Test Item Value Reference Range Interpretation Comments CHOL (test code = 279 mg/dL 120-200 H 4673480516) HDL (test code = 85 mg/dL >50 5640929739) HDLC RATIO (test code = See_Comment [Au tomated message] 2566670530) The system Datanyze generated this result transmit bhaskar reference range : <=4.5. The refe rence range was not u sed to interpret th is result as normal/abnormal . TRIG (test code = 312 mg/dL 30-170 H 3370740739) LDL CHOL (test code = 132 mg/dL See_Comment [Auto mated message] 74578-8) The system Datanyze generated this result transmit bhaskar reference range : <=160. The refe rence range was not u sed to interpret th is result as normal/abnormal . VLDL (test code = 62 mg/dL 5-60 H 5471482621) Lab Interpretation (test Abnormal code = 88388-2) [facility] HospitalCT ANGIOGRAM [id number] 21:04:53 1. ?No acute aortic syndrome. No [...] this study and agree with theabove report. [facility] HospitalJER [id number] 20:12:00 Test Item Value Reference Range Interpretation Comments TROPONIN I (test 0.014 ng/mL See_Comment [Automated code = 2440524796) message] The system which generated this result [...] ? Lab Interpretation Normal (test code = 11981-8) [facility] HospitalCOVID-19 (ID NOW RAPID TESTING)2020-11-22 19:49:57 Test Item Value Reference Range Interpretation Comments SARS-CoV-2 Rapid ID NOW Not Detected Not Detected (test code = 28253-1) PAULA (test code = PAULA) ID NOW COVID-19 Assay is an isothermal nucleic acid amplification test intended for the qualitative detection of nucleic acid from SARS-CoV-2 viral RNA in nasopharyngeal (FOOD RUNNER) specimens. It is used under Emergency Use [...] indicated. Lab Interpretation Normal (test code = 21391-1) [facility] HospitalPOCT [id number] 19:43:00 Test Item Value Reference Range Interpretation Comments POCT PREG (test code = 1605) negative On board controls acceptable with present C Line (test code = 3574) POCT PREG LOT # (test code = 3575) [id number] POCT PREG TEST DATE (test 05-25-2022 code = 3576) Lab Interpretation (test code = Normal 69219-3) [facility] HospitalTROPONIN [id number] 15:52:28 Test Item Value Reference Range Interpretation Comments TROPONIN I (test 0.047 ng/mL See_Comment H [Automated code = 1374627759) message] The system which generated this result [...] ? Lab Interpretation Abnormal (test code = 98294-3) [facility] HospitalURINE DRUG (IMMUNOASSAY) - COMPREHENSIVE DRUG [id number] 15:24:44 Test Item Value Reference Range Interpretation Comments AMPHET (test code = Presumptive Positive Negative A 4467516127) ANN U (test code = Negative Negative 1333945897) BENZO U (test code = Negative Negative 3315277826) Cocaine Metabolite (test Negative Negative code = 7499419289) METHADONE (test code = Negative Negative 5782671985) OPIATES (test code = Negative Negative 9019705987) PCP (test code = Negative Negative 2072783678) THC (test code = Negative Negative 2421403566) PAULA (test code = PAULA) Urine Drug [...] testing). Lab Interpretation (test Abnormal code = 79334-5) [facility] HospitalCK (CREATINE KINASE) + [id number] 13:16:38 Test Item Value Reference Range Interpretation Comments CK (test code = 751 U/L 33-194 H 0248787443) CK-MB (test code = 6.00 ng/mL See_Comment H [Automat ed 4323464338) message] The system which generated this result transmitted reference range : <=3.50. The reference range was not used to interpret this result as normal/abnormal . CKMB INDEX (test code 0.8 % 0.0-2.5 = 1537814512) PAULA (test code = PAULA) Biotin has been reported to cause a negative bias, interpret results relative to patient's use of biotin. Lab Interpretation Abnormal (test code = 25166-9) [facility] HospitalTROPONIN [id number] 13:16:38 Test Item Value Reference Range Interpretation Comments TROPONIN I (test 0.008 ng/mL See_Comment [Automated code = 8494941687) message] The system which generated this result [...] ? Lab Interpretation Normal (test code = 45534-9) [facility] DRUG (IMMUNOASSAY) - COMPREHENSIVE DRUG [id number] 13:13:47 Test Item Value Reference Range Interpretation Comments ANN S (test code = Negative Negative 6959267238) BENZO S (test code = Negative Negative 0731100764) TRICYCLIC (test code = Negative Negative 4709913224) PAULA (test code = PAULA) Serum Drug [...] testing). Lab Interpretation Normal (test code = 50631-5) [facility] HospitalURINALYSIS2021-05-30 13:13:32 Test Item Value Reference Range Interpretation Comments APPEARANCE (test code = Clear Clear 9331355416) COLOR (test code = Colorless Yellow A 8492317362) PH (test code = 4.8-8.0 4887410380) SP GRAVITY (test code = 1.003-1.030 L 8219854712) GLU U QUAL (test code = Normal Normal 2603321503) BLOOD (test code = 1+ Negative A 2371700524) KETONES (test code = Negative Negative 0240989034) PROTEIN (test code = Negative Negative 2887-8) UROBILIN (test code = Normal Normal 8568596690) BILIRUBIN (test code = Negative Negative 4728549790) NITRITE (test code = Negative Negative 0644214559) LEUK JONATHON (test code = Negative Negative 0482775444) RBC/HPF (test code = See_Comment [Autom ated message] 5477266118) The system Datanyze generated this result transmit bhaskar reference range : 0 - 3 HPF. The refe rence range was not u sed to interpret th is result as normal/abnormal . WBC/HPF (test code = <1 See_Comment [Autom ated message] 4655527429) The system Datanyze generated this result transmit bhaskar reference range : 0 - 5 HPF. The refe rence range was not u sed to interpret th is result as normal/abnormal . BACTERIA (test code = Negative Negative 3499521185) AMORPHOUS (test code = Rare Rare HPF 8465879719) Lab Interpretation (test Abnormal code = 81915-3) [facility] HospitalD-GWGME3629-10-27 13:09:19 Test Item Value Reference Interpretation Comments Range D-DIMER (test code = See_Comment [Autom ated 8038656332) message] The system which generated this result [...] diagnosis. Lab Interpretation Normal (test code = 80873-0) [facility]. METABOLIC PANEL (09586)2020-11-22 13:06:21 Test Item Value Reference Range Interpretation Comments NA (test code = 139 mmol/L 135-145 5475301208) K (test code = 4.1 mmol/L 3.5-5.0 2086909566) CL (test code = 106 mmol/L 98-108 3353237227) CO2 TOTAL (test code = 20 mmol/L 23-31 L 0986073148) AGAP (test code = 2-16 1280233931) BUN (test code = 12 mg/dL 7-23 9184100399) GLUCOSE (test code = 92 mg/dL 70-110 7083144929) CREATININE (test code = 0.58 mg/dL 0.50-1.04 5826306584) TOTAL BILI (test code = 0.2 mg/dL 0.1-1.6 3570541612) CALCIUM (test code = 9.4 mg/dL 8.6-10.6 5483521357) T PROTEIN (test code = 7.6 g/dL 6.3-8.2 5609622380) ALBUMIN (test code = 4.5 g/dL 3.5-5.0 3083324784) ALK PHOS (test code = 70 U/L 34-122 1226392242) ALTv (test code = 14 U/L 5-35 1742-6) AST(SGOT) (test code = 29 U/L 13-40 7150896822) eGFR (test code = mL/min/1.73m2 0440737139) PAULA (test code = PAULA) Association of [...] tests). Lab Interpretation Abnormal (test code = 23155-1) [facility] HospitalETHANOL2021-05-30 13:06:21 Test Item Value Reference Range Interpretation Comments ALCOHOL (test code = 112 mg/dL 2897324168) PAULA (test code = Toxic Greater than or PAULA) equal to 80 mg/dL. NOTE: Whole blood values are approximately 10% to 15% lower than serum and plasma. [facility] HospitalLIPASE2021-[facility] 13:06:21 Test Item Value Reference Range Interpretation Comments LIPASE (test code = 8051142103) 118 U/L 0-220 Lab Interpretation (test code = Normal 17843-8) [facility] WITH [id number] 13:00:59 Test Item Value Reference Range Interpretation Comments WBC (test code = See_Comment [Automated message] 6690-2) The system Datanyze generated this result transmitted ref erence range: 4.30 - 1 1.10 10*3/?L. The re ference range was not u sed to interpret this result as normal/abnor mal. RBC (test code = See_Comment [Automated message] 289-8) The system Datany[employer] generated this result transmitted ref erence range: [...] RDW-SD (test code 44.0 fL 39.0-49.9 = 10893-1) RDW-CV (test code 13.0 % 12.0-15.5 = 788-0) PLT (test code = See_Comment [Automated message] 777-3) The system whic h generated this result transmitted ref erence range: 166 - 35 8 10*3/?L. The re ference range was not u sed to interpret this result as normal/abnor mal. MPV (test code = 9.9 fL 9.5-12.9 76046-4) NRBC/100 WBC (test See_Comment [Automat ed message] code = 4503831502) The syste m which generated this result transmitted ref erence range: 0.0 - 10 .0 /100 WBCs. The refer ence range was not u sed to interpret this result as normal/abnor mal. NRBC x10^3 (test <0.01 See_Comment [Automated message] code = 2548772569) The syste m which generated this result transmitted ref erence range: 10*3/?L. The reference range was not used to interpr et this result as normal/abnormal . GRAN MAT (NEUT) % 57.8 % (test code = 770-8) IMM GRAN % (test 0.30 % code = 2788361122) LYMPH % (test code 31.0 % = 736-9) MONO % (test code 8.7 % = 5905-5) EOS % (test code = 1.5 % 713-8) BASO % (test code 0.7 % = 706-2) GRAN MAT 3.37 10*3/uL 1.88-7.09 x10^3(ANC) (test code = 4623047063) IMM GRAN x10^3 <0.03 0.00-0.06 (test code = 0153503105) LYMPH x10^3 (test 1.81 10*3/uL 1.32-3.29 code = 731-0) MONO x10^3 (test 0.51 10*3/uL 0.33-0.92 code = 742-7) EOS x10^3 (test 0.09 10*3/uL 0.03-0.39 code = 711-2) BASO x10^3 (test 0.04 10*3/uL 0.01-0.07 code = 704-7) [facility] HospitalDRUG PANEL 2 [id number] 11:58:10 Test Item Value Reference Range Interpretation Comments AMPHET (test code = Negative Negative 7798686903) ANN U (test code = Negative Negative 7009314189) BENZO U (test code = Negative Negative 5951613511) Cocaine Metabolite (test Negative Negative code = 0527748367) METHADONE (test code = Negative Negative 6784073089) OPIATES (test code = Negative Negative 7010846191) PCP (test code = Negative Negative 3746899601) THC (test code = Negative Negative 8133455079) PAULA (test code = PAULA) Urine Drug [...] testing). Lab Interpretation (test Normal code = 35667-3) [facility] HospitalUrinalysis2021-04-29 10:57:49 Test Item Value Reference Range Interpretation Comments APPEARANCE (test code = Clear Clear 4893250455) COLOR (test code = Colorless Yellow A 3945275689) PH (test code = 4.8-8.0 4699370351) SP GRAVITY (test code = 1.003-1.030 2199046859) GLU U QUAL (test code = Normal Normal 4955632293) BLOOD (test code = 2+ Negative A 0394950114) KETONES (test code = Negative Negative 1571519256) PROTEIN (test code = Negative Negative 2887-8) UROBILIN (test code = Normal Normal 1982949889) BILIRUBIN (test code = Negative Negative 4967125381) NITRITE (test code = Negative Negative 1907065653) LEUK JONATHON (test code = Negative Negative 5658917623) RBC/HPF (test code = See_Comment H [Autom ated message] 4101464680) The system Datanyze generated this result transmit bhaskar reference range : 0 - 3 HPF. The refe rence range was not u sed to interpret th is result as normal/abnormal . WBC/HPF (test code = <1 See_Comment [Autom ated message] 0128938618) The system Datanyze generated this result transmit bhaskar reference range : 0 - 5 HPF. The refe rence range was not u sed to interpret th is result as normal/abnormal . BACTERIA (test code = Negative Negative 1429741295) SQ EPITH (test code = <1 See_Comment [Auto mated message] 6224178269) The system Datanyze generated this result transmit bhaskar reference range : <=2 HPF. The refere nce range was not u sed to interpret th is result as normal/abnormal . ASCORBIC ACID (test code Negative = 0162429682) Lab Interpretation (test Abnormal code = 92149-0) [facility] [id number] 10:29:23 Test Item Value Reference Range Interpretation Comments TROPONIN I (test 0.005 ng/mL See_Comment [Automated code = 7480833479) message] The system which generated this result [...] ? Lab Interpretation Normal (test code = 68307-0) [facility] HospitalPOCT [id number] 10:12:00 Test Item Value Reference Range Interpretation Comments POCT PREG (test code = 1605) negative On board controls acceptable with C present Line (test code = 3574) POCT PREG LOT # (test code = 3575) HCG Lab Interpretation (test code = Normal 61971-1) [facility] HospitalTroponin [id number] 08:15:07 Test Item Value Reference Range Interpretation Comments TROPONIN I (test 0.007 ng/mL See_Comment [Automated code = 6846962752) message] The system which generated this result [...] ? Lab Interpretation Normal (test code = 91556-5) [facility] HospitalCOVID-19 (ID NOW RAPID TESTING)2020-10-22 08:08:44 Test Item Value Reference Range Interpretation Comments SARS-CoV-2 Rapid ID NOW Not Detected Not Detected (test code = 35235-2) PAULA (test code = PAULA) ID NOW COVID-19 Assay is an isothermal nucleic acid amplification test intended for the qualitative detection of nucleic acid from SARS-CoV-2 viral RNA in nasopharyngeal (FOOD RUNNER) specimens. It is used under Emergency Use [...] indicated. Lab Interpretation Normal (test code = 38084-6) [facility]Ban[facility] (NA, K, CL, CO2, GLUCOSE, BUN, CREATININE, CA)2020-10-22 08:00:24 Test Item Value Reference Range Interpretation Comments NA (test code = 136 mmol/L 135-145 7736719625) K (test code = 5.1 mmol/L 3.5-5.0 H Slight 5410413457) hemolysis CL (test code = 107 mmol/L 98-108 0752124905) CO2 TOTAL (test code 22 mmol/L 23-31 L = 0538310959) AGAP (test code = 2-16 4261277052) BUN (test code = 10 mg/dL 7-23 Slight 6251826516) hemolysis GLUCOSE (test code = 107 mg/dL 70-110 2487167029) CREATININE (test code 0.56 mg/dL 0.50-1.04 = 6842571735) CALCIUM (test code = 8.6 mg/dL 8.6-10.6 9333439559) eGFR (test code = mL/min/1.73m2 6873228518) PAULA (test code = PAULA) Association of [...] tests). Lab Interpretation Abnormal (test code = 56145-0) [facility] HospitalHepatic Function Panel (ALB, T.PRO, BILI T, BU/BC, ALT, AST, ALK PHOS)2020-10-22 08:00:24 Test Item Value Reference Range Interpretation Comments TOTAL BILI (test code = 7636096464) 0.3 mg/dL 0.1-1.1 BILI UNCON (test code = 7152582744) 0.1 mg/dL 0.1-1.1 BILI CONJ (test code = 3637017890) 0.0 mg/dL 0.0-0.3 T PROTEIN (test code = 7574214198) 7.0 g/dL 6.3-8.2 ALBUMIN (test code = 3069951939) 3.9 g/dL 3.5-5.0 ALK PHOS (test code = 3693112806) 112 U/L 34-122 ALTv (test code = 1742-6) 292 U/L 5-35 H AST(SGOT) (test code = 4970862083) 322 U/L 13-40 H Lab Interpretation (test code = Abnormal 36055-2) [facility] HospitalEthanol [id number] 08:00:24 Test Item Value Reference Range Interpretation Comments ALCOHOL (test code = 67 mg/dL 5165894530) PAULA (test code = Toxic Greater than or PAULA) equal to 80 mg/dL. NOTE: Whole blood values are approximately 10% to 15% lower than serum and plasma. [facility] HospitalLipase Iaake1414-27-57 08:00:24 Test Item Value Reference Range Interpretation Comments LIPASE (test code = 8016277139) 165 U/L 0-220 Lab Interpretation (test code = Normal 06441-9) [facility] HospitalCBC with Prahluzmvmpe6947-60-25 07:55:00 Test Item Value Reference Range Interpretation Comments WBC (test code = See_Comment [Automated 0290-2) message] The sy stem which generated this result transmitted reference range : 4.30 - 11.10 10*3/?L. The reference range was not used to interpret this result as normal/abnormal . RBC (test code = See_Comment [Automated 519-8) message] The sy stem which generated this [...] RDW-SD (test code = 43.8 fL 39.0-49.9 20969-8) RDW-CV (test code = 13.2 % 12.0-15.5 788-0) PLT (test code = See_Comment [Automated 777-3) message] The sy stem which generated this result transmitted reference range : 166 - 358 10*3/ ?L. The reference r micah was not used to interpret this result as normal/abnormal . MPV (test code = 9.2 fL 9.5-12.9 L 57312-5) NRBC/100 WBC (test See_Comment [Automat ed code = 9163804734) message] The system which generated this result transmitted reference range : 0.0 - 10.0 /100 WBCs. The refer ence range was not u sed to interpret th is result as normal/abnormal . NRBC x10^3 (test code <0.01 See_Comment [Auto mated = 8682115969) message] The s ystem which generated this result transmitted reference range : 10*3/?L. The reference range was not used to interpret this result as normal/abnormal . GRAN MAT (NEUT) % 64.0 % (test code = 770-8) IMM GRAN % (test code 0.40 % = 1791562452) LYMPH % (test code = 24.3 % 736-9) MONO % (test code = 8.9 % 5905-5) EOS % (test code = 1.4 % 713-8) BASO % (test code = 1.0 % 706-2) GRAN MAT x10^3(ANC) 3.18 10*3/uL 1.88-7.09 (test code = 8141722038) IMM GRAN x10^3 (test <0.03 0.00-0.06 code = 0227371895) LYMPH x10^3 (test code 1.21 10*3/uL 1.32-3.29 L = 731-0) MONO x10^3 (test code 0.44 10*3/uL 0.33-0.92 = 742-7) EOS x10^3 (test code = 0.07 10*3/uL 0.03-0.39 711-2) BASO x10^3 (test code 0.05 10*3/uL 0.01-0.07 = 704-7) Lab Interpretation Abnormal (test code = 55076-1) [facility] 2 [id number] 18:12:05 No acute cardiopulmonary abnormality. Preliminary Report [...] reviewed this study and agree with theabove report.[facility] HospitalCREATINE [id number] 17:21:00 Test Item Value Reference Range Interpretation Comments CK (test code = 3362296765) 765 U/L 33-194 H Lab Interpretation (test code = Abnormal 31250-2) [facility] HospitalLipase [id number] 17:20:59 Test Item Value Reference Range Interpretation Comments LIPASE (test code = 1903163738) 135 U/L 0-220 Lab Interpretation (test code = Normal 47974-9) [facility] HospitalTroponin [id number] 16:25:05 Test Item Value Reference Range Interpretation Comments TROPONIN I (test 0.007 ng/mL See_Comment [Automated code = 1848702774) message] The system which generated this result [...] ? Lab Interpretation Normal (test code = 17221-5) [facility] HospitalN-TERMINAL [id number] 16:25:04 Test Item Value Reference Range Interpretation Comments NT-proBNP (test code 178 pg/mL See_Comment H [Autom ated = 8044846750) message] The system which generated this result transmitted reference range : <=125. The reference range was not used to interpret this result as normal/abnormal . PAULA (test code = PAULA) Biotin has been reported to cause a negative bias, interpret results relative to patient's use of biotin. Lab Interpretation Abnormal (test code = 76658-9) [facility] HospitalBasi Metabolic Panel (NA, K, CL, CO2, GLUCOSE, BUN, CREATININE, CA)2020-10-15 16:13:24 Test Item Value Reference Range Interpretation Comments NA (test code = 135 mmol/L 135-145 2500776326) K (test code = 4.0 mmol/L 3.5-5.0 Slight 6805354890) hemolysis CL (test code = 109 mmol/L 98-108 H 3493483209) CO2 TOTAL (test code 21 mmol/L 23-31 L = 2512922893) AGAP (test code = 2-16 1076512208) BUN (test code = 11 mg/dL 7-23 Slight 5985233637) hemolysis GLUCOSE (test code = 98 mg/dL 70-110 9835206571) CREATININE (test code 0.54 mg/dL 0.50-1.04 = 2450089699) CALCIUM (test code = 8.1 mg/dL 8.6-10.6 L 8745072244) eGFR (test code = mL/min/1.73m2 0030491340) PAULA (test code = PAULA) Association of [...] tests). Lab Interpretation Abnormal (test code = 10282-4) [facility] HospitalHepatic Function Panel (ALB, T.PRO, BILI T, BU/BC, ALT, AST, ALK PHOS)2020-10-15 16:13:24 Test Item Value Reference Range Interpretation Comments TOTAL BILI (test code = 9173428319) 0.3 mg/dL 0.1-1.1 BILI UNCON (test code = 7467105030) 0.1 mg/dL 0.1-1.1 BILI CONJ (test code = 6736366908) 0.0 mg/dL 0.0-0.3 T PROTEIN (test code = 1938056982) 6.0 g/dL 6.3-8.2 L ALBUMIN (test code = 5072183425) 3.2 g/dL 3.5-5.0 L ALK PHOS (test code = 6790287366) 59 U/L 34-122 ALTv (test code = 1742-6) 74 U/L 5-35 H AST(SGOT) (test code = 3654781037) 100 U/L 13-40 H Lab Interpretation (test code = Abnormal 76752-3) [facility] HospitalPregnancy Test, [id number] 16:12:38 Test Item Value Reference Range Interpretation Comments PREG SERUM (test code Negative = 0013854659) PAULA (test code = PAULA) Less than 10 IU/L. ?If low titer or ectopic is suspected, resubmit specimen in 48-72 hours. [facility] HospitalTroponin [id number] 14:29:39TROPONIN IComment: Possible Contaminated specimen. ?Talked to Dr Mai to reorder Troponin and BNP. This is a corrected result. ?Previous result was 0.007 ng/mL on 10/15/2020 at 0903 [facility]Equal or Less than [...] results relative to patient's use of biotin. ?[facility] HospitalN- TERMINAL [id number]-[id number] 14:28:48NT-proBNPComment: Possible Contaminated specimen. ?Talked to Dr Mai to reorder Troponin and BNP. This is a corrected result. ?Previous result was 41 pg/mL on 10/15/2020 at 0904 [facility] SERVICESBiotin has been reported to cause a negative bias, interpret results relative to patient's use of biotin.[facility] HospitalLipase [id number] 14:09:09LIPASEComment: Possible contamination of specimen. Dr Mai to reorder for recollection. This is a corrected result. ?Previous result was 16 U/L on 10/15/2020 at 0852 [facility] SERVICESUn[facility]Co[facility] – CentralCREATINE [id number] 14:08:28CKComment: Possible contamination of specimen. Dr Mai to reorder for recollection. This is a corrected result. ?Previous result was 230 U/L on 10/15/2020 at 0852 [facility] SERVICESUnMidCoast [facility] – CentralCT HEAD WO CONTRAST 2020-10-15 13:47:51 No acute [...] clear. IMPRESSIONNo acute intracranial hemorrhage or mass effect.[facility] HospitalXR CHEST 1 [id number] 14:06:46 No acute cardiopulmonary process. Preliminary Report [...] reviewed this study and agree with theabove report.[facility] HospitalCOMP. METABOLIC PANEL (95020)2020-10-13 11:48:17 Test Item Value Reference Range Interpretation Comments NA (test code = 137 mmol/L 135-145 8113758034) K (test code = 4.2 mmol/L 3.5-5.0 Slight 1423773284) hemolysis CL (test code = 110 mmol/L 98-108 H 0494376931) CO2 TOTAL (test code 18 mmol/L 23-31 L = 0003440746) AGAP (test code = 2-16 6157117601) BUN (test code = 13 mg/dL 7-23 Slight 1973317249) hemolysis GLUCOSE (test code = 104 mg/dL 70-110 0452231807) CREATININE (test code 0.63 mg/dL 0.50-1.04 = 5388258788) TOTAL BILI (test code 0.5 mg/dL 0.1-1.1 = 1992294239) CALCIUM (test code = 8.1 mg/dL 8.6-10.6 L 0700893391) T PROTEIN (test code 7.0 g/dL 6.3-8.2 = 6566810524) ALBUMIN (test code = 3.8 g/dL 3.5-5.0 5374951236) ALK PHOS (test code = 55 U/L 34-122 Slight 6807567852) hemolysis ALTv (test code = 49 U/L 5-35 H 1742-6) AST(SGOT) (test code 72 U/L 13-40 H Slight = 7918838870) hemolysis eGFR (test code = mL/min/1.73m2 9747608755) PAULA (test code = PAULA) Association of [...] tests). Lab Interpretation Abnormal (test code = 38269-4) [facility] HospitalDrug Screen [id number] 11:42:55 Test Item Value Reference Range Interpretation Comments AMPHET (test code = Presumptive Positive Negative A 3273607985) Cocaine Metabolite (test Negative Negative code = 8901034161) OPIATES (test code = Presumptive Positive Negative A 2304055281) THC (test code = Negative Negative 6287536790) PAULA (test code = PAULA) Urine Drug Cutoff Ranges Amphetamine: ? 1,000 ng/mLCocaine: ? 150 ng/mLOpiates: ? 300 ng/mLCannabinoids: ?50 ng/mL The results are to be used only for medical (i.e., treatment) purposes. Unconfirmed screening results must not be used for non-medical purposes (e.g., employment testing, legal testing). Lab Interpretation (test Abnormal code = 55202-3) [facility] HospitalDRUG SCREEN PANEL 2 [id number] 11:42:35 Test Item Value Reference Range Interpretation Comments AMPHET (test code = Presumptive Positive Negative A 0827681150) ANN U (test code = Negative Negative 5061221293) BENZO U (test code = Negative Negative 7947737845) Cocaine Metabolite (test Negative Negative code = 5011508970) METHADONE (test code = Negative Negative 6935309976) OPIATES (test code = Presumptive Positive Negative A 5833364946) PCP (test code = Negative Negative 2568984389) THC (test code = Negative Negative 8765708141) PAULA (test code = PAULA) Urine Drug [...] testing). Lab Interpretation (test Abnormal code = 53489-5) [facility] HospitalD-[id number] 11:32:36 Test Item Value Reference Interpretation Comments Range D-DIMER (test code = See_Comment [Autom ated 7210236883) message] The system which generated this result [...] diagnosis. Lab Interpretation Normal (test code = 62987-7) [facility] HospitalURINALYSIS2021-04-20 11:29:49 Test Item Value Reference Range Interpretation Comments APPEARANCE (test code = Clear Clear 5029207943) COLOR (test code = Straw Yellow A 6132742873) PH (test code = 4.8-8.0 7093920793) SP GRAVITY (test code = 1.003-1.030 8313022018) GLU U QUAL (test code = Normal Normal 5006228099) BLOOD (test code = Negative Negative 8306152742) KETONES (test code = Negative Negative 8340942172) PROTEIN (test code = Negative Negative 2887-8) UROBILIN (test code = Normal Normal 8839203779) BILIRUBIN (test code = Negative Negative 1534681946) NITRITE (test code = Negative Negative 6512099803) LEUK JONATHON (test code = Negative Negative 7093782266) RBC/HPF (test code = <1 See_Comment [Autom ated message] 9174033208) The system [employer] generated this result transmitted ref erence range: 0 - 3 HP F. The reference range was not used to int erpret this result as normal/abnormal . WBC/HPF (test code = <1 See_Comment [Autom ated message] 1270906090) The system [employer] generated this result transmitted ref erence range: 0 - 5 HP F. The reference range was not used to int erpret this result as normal/abnormal . BACTERIA (test code = Few Negative A 9651814190) SQ EPITH (test code = See_Comment [Auto mated message] 0513844032) The system [employer] generated this result transmitted ref erence range: <=2 HPF. The reference range was not used to int erpret this result as normal/abnormal . Lab Interpretation (test Abnormal code = 97799-7) [facility] HospitalPOCT [id number] 11:13:00 Test Item Value Reference Range Interpretation Comments POCT PREG (test code = 1605) negative On board controls acceptable with present C Line (test code = 3574) POCT PREG LOT # (test code = 3575) [id number] POCT PREG TEST DATE (test 2022-05-25 code = 3576) Lab Interpretation (test code = Normal 69879-1) [facility] HospitalTHYROID STIMULATING [id number] 11:12:54 Test Item Value Reference Range Interpretation Comments TSH (test code = See_Comment H [Automated message] 4077719804) The system [employer] generated this result transmitted ref erence range: 0.45 - 4 .70 mIU/L. The refe rence range was not u sed to interpret this result as normal/abnor mal. Lab Interpretation (test Abnormal code = 61224-2) [facility] HospitalTroponin [id number] 10:54:13 Test Item Value Reference Range Interpretation Comments TROPONIN I (test 0.013 ng/mL See_Comment [Automated code = 9781442638) message] The system which generated this result [...] ? Lab Interpretation Normal (test code = 79772-4) [facility] HospitalEthanol [id number] 10:53:52 Test Item Value Reference Range Interpretation Comments ALCOHOL (test code = <10 mg/dL 8534221170) PAULA (test code = Toxic Greater than or PAULA) equal to 80 mg/dL. NOTE: Whole blood values are approximately 10% to 15% lower than serum and plasma. [facility] with Aimfieyibmve0092-77-08 10:49:12 Test Item Value Reference Range Interpretation Comments WBC (test code = See_Comment [Automated message] 0790-2) The system [employer] generated this result transmitted ref erence range: 4.30 - 1 1.10 10*3/?L. The re ference range was not u sed to interpret this result as normal/abnor mal. RBC (test code = See_Comment [Automated message] 719-8) The system [employer] generated this result transmitted ref erence range: [...] RDW-SD (test code 43.8 fL 39.0-49.9 = 33729-8) RDW-CV (test code 12.9 % 12.0-15.5 = 788-0) PLT (test code = See_Comment [Automated message] 777-3) The system whic h generated this result transmitted ref erence range: 166 - 35 8 10*3/?L. The re ference range was not u sed to interpret this result as normal/abnor mal. MPV (test code = 9.5 fL 9.5-12.9 31675-3) NRBC/100 WBC (test See_Comment [Automat ed message] code = 5642812470) The syste m which generated this result transmitted ref erence range: 0.0 - 10 .0 /100 WBCs. The refer ence range was not u sed to interpret this result as normal/abnor mal. NRBC x10^3 (test <0.01 See_Comment [Automated message] code = 1603458318) The syste m which generated this result transmitted ref erence range: 10*3/?L. The reference range was not used to interpr et this result as normal/abnormal . GRAN MAT (NEUT) % 66.8 % (test code = 770-8) IMM GRAN % (test 0.30 % code = 5391010042) LYMPH % (test code 21.6 % = 736-9) MONO % (test code 9.2 % = 5905-5) EOS % (test code = 1.4 % 713-8) BASO % (test code 0.7 % = 706-2) GRAN MAT 4.73 10*3/uL 1.88-7.09 x10^3(ANC) (test code = 4318962194) IMM GRAN x10^3 <0.03 0.00-0.06 (test code = 8530211067) LYMPH x10^3 (test 1.53 10*3/uL 1.32-3.29 code = 731-0) MONO x10^3 (test 0.65 10*3/uL 0.33-0.92 code = 742-7) EOS x10^3 (test 0.10 10*3/uL 0.03-0.39 code = 711-2) BASO x10^3 (test 0.05 10*3/uL 0.01-0.07 code = 704-7) [facility] HospitalLipase [id number] 10:44:47 Test Item Value Reference Range Interpretation Comments LIPASE (test code = 9529603112) 172 U/L 0-220 Lab Interpretation (test code = Normal 69410-5) [facility] HospitalProthrombin Time (PT) / [id number] 10:43:11 Test Item Value Reference Range Interpretation Comments PROTIME PATIENT (test See_Comment [Auto mated message] code = 5964-2) The system [employer] generated this result transmitted ref erence range: 10.1 - 1 2.6 Seconds. The re ference range was not u sed to interpret this result as normal/abnor mal. INR (test code = 6301-6) Nor mal INR <1.1; Warfarin Therap eutic range 2.0 to 3. 0 or 2.5 to 3.5, dep ending upon the indica tions. Lab Interpretation (test Normal code = 84746-6) [facility] HospitalaPTT2021-04-20 10:43:11 Test Item Value Reference Range Interpretation Comments APTT Patient (test code See_Comment L [Au tomated message] = 3173-2) The system [employer] h generated this result transmitted ref erence range: 26 - 36 Seconds. The reference range was not used to int erpret this result as normal/abnormal . Lab Interpretation (test Abnormal code = 09572-6) [facility] HospitalCOVID-19 (ID NOW RAPID TESTING)2020-10-13 10:28:07 Test Item Value Reference Range Interpretation Comments SARS-CoV-2 Rapid ID NOW Not Detected Not Detected (test code = 73981-8) PAULA (test code = PAULA) ID NOW COVID-19 Assay is an isothermal nucleic acid amplification test intended for the qualitative detection of nucleic acid from SARS-CoV-2 viral RNA in nasopharyngeal (FOOD RUNNER) specimens. It is used under Emergency Use [...] indicated. Lab Interpretation Normal (test code = 71095-4) [facility] HospitalPREGNANCY TEST, [id number] 03:54:33 Test Item Value Reference Range Interpretation Comments PREG SERUM (test code Negative = 4024031215) PAULA (test code = PAULA) Less than 10 IU/L. ?If low titer or ectopic is suspected, resubmit specimen in 48-72 hours. [facility] Metabolic Panel (NA, K, CL, CO2, GLUCOSE, BUN, CREATININE, CA)2020-09-17 03:26:58 Test Item Value Reference Range Interpretation Comments NA (test code = 135 mmol/L 135-145 7892020647) K (test code = 3.8 mmol/L 3.5-5.0 4938956746) CL (test code = 99 mmol/L 98-108 0765689882) CO2 TOTAL (test code = 24 mmol/L 23-31 4401709721) AGAP (test code = 2-16 2768119349) BUN (test code = 9 mg/dL 7-23 5214477706) GLUCOSE (test code = 100 mg/dL 70-110 6583679800) CREATININE (test code 0.74 mg/dL 0.50-1.04 = 3610961953) CALCIUM (test code = 9.1 mg/dL 8.6-10.6 2329353304) eGFR Calculation mL/min/1.73m2 (Non-) (test code = 3494117211) eGFR Calculation mL/min/1.73m2 () (test code = 9063714430) PAULA (test code = PAULA) Association of [...] or urine or abnormalities in imaging tests). [facility] HospitalHepatic Function Panel (ALB, T.PRO, BILI T, BU/BC, ALT, AST, ALK PHOS)2020-09-17 03:26:58 Test Item Value Reference Range Interpretation Comments TOTAL BILI (test code = 7284252145) 0.4 mg/dL 0.1-1.1 BILI UNCON (test code = 8328496662) 0.2 mg/dL 0.1-1.1 BILI CONJ (test code = 0863133752) 0.0 mg/dL 0.0-0.3 T PROTEIN (test code = 5230813426) 8.6 g/dL 6.3-8.2 H ALBUMIN (test code = 5587599410) 5.1 g/dL 3.5-5.0 H ALK PHOS (test code = 7783146368) 114 U/L 34-122 ALTv (test code = 1742-6) 28 U/L 5-35 AST(SGOT) (test code = 4801508008) 47 U/L 13-40 H Lab Interpretation (test code = Abnormal 51320-5) [facility] HospitalLipase [id number] 03:26:58 Test Item Value Reference Range Interpretation Comments LIPASE (test code = 9507049107) 81 U/L 0-220 Lab Interpretation (test code = Normal 89758-6) [facility] with Zrndqgmeizcj8844-97-09 03:13:16 Test Item Value Reference Range Interpretation [...] RDW-SD (test code = 42.8 fL 39.0-49.9 43901-0) RDW-CV (test code = 12.8 % 12.0-15.5 788-0) PLT (test code = See_Comment [Automated 777-3) message] The sy stem which generated this result transmitted reference range : 166 - 358 10*3/ ?L. The reference r micah was not used to interpret this result as normal/abnormal . MPV (test code = 8.9 fL 9.5-12.9 L 79532-8) NRBC/100 WBC (test See_Comment [Automat ed code = 1958722380) message] The system which generated this result transmitted reference range : 0.0 - 10.0 /100 WBCs. The refer ence range was not u sed to interpret th is result as normal/abnormal . NRBC x10^3 (test code <0.01 See_Comment [Auto mated = 8489633462) message] The s ystem which generated this result transmitted reference range : 10*3/?L. The reference range was not used to interpret this result as normal/abnormal . GRAN MAT (NEUT) % 44.7 % (test code = 770-8) IMM GRAN % (test code 0.50 % = 9223526399) LYMPH % (test code = 44.6 % 736-9) MONO % (test code = 8.2 % 5905-5) EOS % (test code = 0.9 % 713-8) BASO % (test code = 1.1 % 706-2) GRAN MAT x10^3(ANC) 2.84 10*3/uL 1.88-7.09 (test code = 6807750272) IMM GRAN x10^3 (test 0.03 10*3/uL 0.00-0.06 code = 0591077523) LYMPH x10^3 (test code 2.83 10*3/uL 1.32-3.29 = 731-0) MONO x10^3 (test code 0.52 10*3/uL 0.33-0.92 = 742-7) EOS x10^3 (test code = 0.06 10*3/uL 0.03-0.39 711-2) BASO x10^3 (test code 0.07 10*3/uL 0.01-0.07 = 704-7) Lab Interpretation Abnormal (test code = 24564-4) [facility] HospitalN-TERMINAL [id number] 11:23:18 Test Item Value Reference Range Interpretation Comments NT-proBNP (test code 100 pg/mL See_Comment [Autom ated = 8080116072) message] The system which generated this result transmitted reference range : <=125. The reference range was not used to interpret this result as normal/abnormal . PAULA (test code = PAULA) Biotin has been reported to cause a negative bias, interpret results relative to patient's use of biotin. Lab Interpretation Normal (test code = 04987-2) [facility] WITH [id number] 11:03:17 Test Item Value Reference Range Interpretation [...] RDW-SD (test code = 44.5 fL 39.0-49.9 80903-3) RDW-CV (test code = 12.7 % 12.0-15.5 788-0) PLT (test code = See_Comment [Automated 777-3) message] The sy stem which generated this result transmitted reference range : 166 - 358 10*3/ ?L. The reference r micah was not used to interpret this result as normal/abnormal . MPV (test code = 10.3 fL 9.5-12.9 90031-2) NRBC/100 WBC (test See_Comment [Automat ed code = 3148702017) message] The system which generated this result transmitted reference range : 0.0 - 10.0 /100 WBCs. The refer ence range was not u sed to interpret th is result as normal/abnormal . NRBC x10^3 (test code <0.01 See_Comment [Auto mated = 2514115553) message] The s ystem which generated this result transmitted reference range : 10*3/?L. The reference range was not used to interpret this result as normal/abnormal . GRAN MAT (NEUT) % 51.5 % (test code = 770-8) IMM GRAN % (test code 0.40 % = 3788493455) LYMPH % (test code = 35.6 % 736-9) MONO % (test code = 8.2 % 5905-5) EOS % (test code = 3.1 % 713-8) BASO % (test code = 1.2 % 706-2) GRAN MAT x10^3(ANC) 3.78 10*3/uL 1.88-7.09 (test code = 6803163046) IMM GRAN x10^3 (test 0.03 10*3/uL 0.00-0.06 code = 5787832235) LYMPH x10^3 (test code 2.61 10*3/uL 1.32-3.29 = 731-0) MONO x10^3 (test code 0.60 10*3/uL 0.33-0.92 = 742-7) EOS x10^3 (test code = 0.23 10*3/uL 0.03-0.39 711-2) BASO x10^3 (test code 0.09 10*3/uL 0.01-0.07 H = 704-7) Lab Interpretation Abnormal (test code = 49323-7) [facility] HospitalJER [id number] 10:38:33 Test Item Value Reference Range Interpretation Comments TROPONIN I (test <0.012 See_Comment [Automated code = 2550109358) message] The system which generated this result [...] ? Lab Interpretation Normal (test code = 66710-4) [facility]. METABOLIC PANEL (39489)2020-09-06 10:26:52 Test Item Value Reference Range Interpretation Comments NA (test code = 134 mmol/L 135-145 L 5483665259) K (test code = 3.9 mmol/L 3.5-5.0 8615216390) CL (test code = 100 mmol/L 98-108 1432907752) CO2 TOTAL (test code = 27 mmol/L 23-31 1283977790) AGAP (test code = 2-16 4509338416) BUN (test code = 17 mg/dL 7-23 5564448867) GLUCOSE (test code = 90 mg/dL 70-110 0260893984) CREATININE (test code = 0.65 mg/dL 0.50-1.04 1944518794) TOTAL BILI (test code = 0.4 mg/dL 0.1-1.2 5968440462) CALCIUM (test code = 8.3 mg/dL 8.6-10.6 L 8849348340) T PROTEIN (test code = 7.1 g/dL 6.3-8.2 1412636303) ALBUMIN (test code = 4.1 g/dL 3.5-5.0 0956113576) ALK PHOS (test code = 101 U/L 34-122 7029618022) ALTv (test code = 47 U/L 5-35 H 1742-6) AST(SGOT) (test code = 45 U/L 13-40 H 4220796720) eGFR Calculation mL/min/1.73m2 (Non-) (test code = 3372048602) eGFR Calculation mL/min/1.73m2 () (test code = 5328591562) PAULA (test code = PAULA) Association of [...] tests). Lab Interpretation Abnormal (test code = 69508-8) [facility] HospitalLIPASE, [id number] 10:26:32 Test Item Value Reference Range Interpretation Comments LIPASE (test code = 7838065456) 139 U/L 0-220 Lab Interpretation (test code = Normal 66890-5) [facility] HospitalD-ZXKOG6943-00-00 03:26:49 Test Item Value Reference Interpretation Comments Range D-DIMER (test code = <0.27 See_Comment [Autom ated 8144837572) message] The system which generated this result [...] diagnosis. Lab Interpretation Normal (test code = 77832-5) [facility] HospitalTHYROID STIMULATING [id number] 02:42:25 Test Item Value Reference Range Interpretation Comments TSH (test code = See_Comment [Automated message] 0754838689) The system [employer] generated this result transmitted ref erence range: 0.45 - 4 .70 mIU/L. The refe rence range was not u sed to interpret this result as normal/abnor mal. Lab Interpretation (test Normal code = 24663-3) [facility] HospitalN-TERMINAL [id number] 02:20:57 Test Item Value Reference Range Interpretation Comments NT-proBNP (test code 223 pg/mL See_Comment H [Autom ated = 8399962818) message] The system which generated this result transmitted reference range : <=125. The reference range was not used to interpret this result as normal/abnormal . PAULA (test code = PAULA) Biotin has been reported to cause a negative bias, interpret results relative to patient's use of biotin. Lab Interpretation Abnormal (test code = 11230-9) [facility] HospitalTroponin [id number] 01:06:21 Test Item Value Reference Range Interpretation Comments TROPONIN I (test <0.012 See_Comment [Automated code = 9168378711) message] The system which generated this result [...] ? Lab Interpretation Normal (test code = 87730-8) [facility] HospitalHepatic Function Panel (ALB, T.PRO, BILI T, BU/BC, ALT, AST, ALK PHOS)2020-09-02 00:56:20 Test Item Value Reference Range Interpretation Comments TOTAL BILI (test code = 2012763219) 0.5 mg/dL 0.1-1.1 BILI UNCON (test code = 0818135947) 0.3 mg/dL 0.1-1.1 BILI CONJ (test code = 6421579077) 0.0 mg/dL 0.0-0.3 T PROTEIN (test code = 8027462212) 8.1 g/dL 6.3-8.2 ALBUMIN (test code = 4070250470) 4.7 g/dL 3.5-5.0 ALK PHOS (test code = [id number]) 109 U/L 34-122 ALTv (test code = 1742-6) 75 U/L 5-35 H AST(SGOT) (test code = 0420232494) 53 U/L 13-40 H Lab Interpretation (test code = Abnormal 40966-7) [facility] (NA, K, CL, CO2, GLUCOSE, BUN, CREATININE, CA)2020-09-02 00:56:00 Test Item Value Reference Range Interpretation Comments NA (test code = 136 mmol/L 135-145 0964456719) K (test code = 3.8 mmol/L 3.5-5.0 0103503753) CL (test code = 99 mmol/L 98-108 7836421436) CO2 TOTAL (test code = 27 mmol/L 23-31 1909767545) AGAP (test code = 2-16 7223914446) BUN (test code = 4 mg/dL 7-23 L 7493587131) GLUCOSE (test code = 115 mg/dL 70-110 H 8263319932) CREATININE (test code = 0.49 mg/dL 0.50-1.04 L 5085044225) CALCIUM (test code = 9.4 mg/dL 8.6-10.6 3890325379) eGFR Calculation mL/min/1.73m2 (Non-) (test code = 1168881848) eGFR Calculation mL/min/1.73m2 () (test code = 6795917098) PAULA (test code = PAULA) Association of [...] tests). Lab Interpretation Abnormal (test code = 35895-2) [facility] [id number] 00:56:00 Test Item Value Reference Range Interpretation Comments LIPASE (test code = 7689181410) 60 U/L 0-220 Lab Interpretation (test code = Normal 79827-8) [facility] (ID NOW RAPID TESTING)2020-09-02 00:31:12 Test Item Value Reference Range Interpretation Comments SARS-CoV-2 Rapid ID NOW Not Detected Not Detected (test code = 56579-2) PAULA (test code = PAULA) ID NOW COVID-19 Assay is an isothermal nucleic acid amplification test intended for the qualitative detection of nucleic acid from SARS-CoV-2 viral RNA in nasopharyngeal (FOOD RUNNER) specimens. It is used under Emergency Use [...] indicated. Lab Interpretation Normal (test code = 05750-7) [facility] with Lrrxzcluojpj7797-16-81 00:21:26 Test Item Value Reference Range Interpretation Comments WBC (test code = See_Comment [Automated 3840-2) message] The sy stem which generated this result transmitted reference range : 4.30 - 11.10 10*3/?L. The reference range was not used to interpret this result as normal/abnormal . RBC (test code = See_Comment [Automated 458-8) message] The sy stem which generated this [...] RDW-SD (test code = 43.6 fL 39.0-49.9 31102-5) RDW-CV (test code = 12.9 % 12.0-15.5 788-0) PLT (test code = See_Comment H [Automated 777-3) message] The sy stem which generated this result transmitted reference range : 166 - 358 10*3/ ?L. The reference r micah was not used to interpret this result as normal/abnormal . MPV (test code = 9.4 fL 9.5-12.9 L 27079-8) NRBC/100 WBC (test See_Comment [Automat ed code = 6610864346) message] The system which generated this result transmitted reference range : 0.0 - 10.0 /100 WBCs. The refer ence range was not u sed to interpret th is result as normal/abnormal . NRBC x10^3 (test code <0.01 See_Comment [Auto mated = 7478139886) message] The s ystem which generated this result transmitted reference range : 10*3/?L. The reference range was not used to interpret this result as normal/abnormal . GRAN MAT (NEUT) % 71.0 % (test code = 770-8) IMM GRAN % (test code 0.50 % = 7788818556) LYMPH % (test code = 19.1 % 736-9) MONO % (test code = 7.6 % 5905-5) EOS % (test code = 0.7 % 713-8) BASO % (test code = 1.1 % 706-2) GRAN MAT x10^3(ANC) 6.08 10*3/uL 1.88-7.09 (test code = 5182359226) IMM GRAN x10^3 (test 0.04 10*3/uL 0.00-0.06 code = 2594668107) LYMPH x10^3 (test code 1.63 10*3/uL 1.32-3.29 = 731-0) MONO x10^3 (test code 0.65 10*3/uL 0.33-0.92 = 742-7) EOS x10^3 (test code = 0.06 10*3/uL 0.03-0.39 711-2) BASO x10^3 (test code 0.09 10*3/uL 0.01-0.07 H = 704-7) Lab Interpretation Abnormal (test code = 40180-2) [facility] Metabolic Panel (NA, K, CL, CO2, Glucose, BUN, Creatinine, CA)2020-04-12 10:56:00 Test Item Value Reference Range Interpretation Comments NA (test code = 135 mmol/L 135-145 2432492668) K (test code = 4.1 mmol/L 3.5-5 1603545449) CL (test code = 105 mmol/L 98-108 7823816076) CO2 TOTAL (test code = 28 mmol/L 23-31 4979456972) AGAP (test code = 2-16 0825937765) BUN (test code = 11 mg/dL 7-23 9270661032) GLUCOSE (test code = 95 mg/dL 70-110 0430573032) CREATININE (test code = 0.57 mg/dL 0.5-1.04 2006109260) CALCIUM (test code = 7.9 mg/dL 8.6-10.6 L 5442510728) eGFR Calculation mL/min/1.73m2 (Non-) (test code = 0248500999) eGFR Calculation mL/min/1.73m2 () (test code = 0530457714) PAULA (test code = PAULA) Association of [...] tests). Lab Interpretation Abnormal (test code = 56223-2) [facility] with Flrvvchozaur0458-56-43 10:31:00 Test Item Value Reference Range Interpretation Comments WBC (test code = See_Comment [Automated 2990-2) message] The sy stem which generated this result transmitted reference range : 4.30 - 11.10 10*3/?L. The reference range was not used to interpret this result as normal/abnormal . RBC (test code = See_Comment L [Automated 616-8) message] The sy stem which generated this [...] RDW-SD (test code = 44.9 fL 39-49.9 85869-0) RDW-CV (test code = 13.2 % 12-15.5 788-0) PLT (test code = See_Comment [Automated 777-3) message] The sy stem which generated this result transmitted reference range : 166 - 358 10*3/ ?L. The reference r micah was not used to interpret this result as normal/abnormal . MPV (test code = 9.8 fL 9.5-12.9 39047-5) NRBC/100 WBC (test See_Comment [Automat ed code = 9254915256) message] The system which generated this result transmitted reference range : 0.0 - 10.0 /100 WBCs. The refer ence range was not u sed to interpret th is result as normal/abnormal . NRBC x10^3 (test code <0.01 See_Comment [Auto mated = 7975844506) message] The s ystem which generated this result transmitted reference range : 10*3/?L. The reference range was not used to interpret this result as normal/abnormal . GRAN MAT (NEUT) % 47.2 % (test code = 770-8) IMM GRAN % (test code 0.30 % = 0263562578) LYMPH % (test code = 40.7 % 736-9) MONO % (test code = 8.4 % 5905-5) EOS % (test code = 2.5 % 713-8) BASO % (test code = 0.9 % 706-2) GRAN MAT x10^3(ANC) 3.15 10*3/uL 1.88-7.09 (test code = 9047769633) IMM GRAN x10^3 (test <0.03 0-0.06 code = 9297378060) LYMPH x10^3 (test code 2.72 10*3/uL 1.32-3.29 = 731-0) MONO x10^3 (test code 0.56 10*3/uL 0.33-0.92 = 742-7) EOS x10^3 (test code = 0.17 10*3/uL 0.03-0.39 711-2) BASO x10^3 (test code 0.06 10*3/uL 0.01-0.07 = 704-7) Lab Interpretation Abnormal (test code = 22899-7) [facility]XR FOREARM 2 VW [id number] 21:32:56 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 [...] with no effusionidentified.IMPRESSIONElbow joint osteoarthrosis.No acute fractures. [facility] HAND 3+ VW [id number] 21:31:56 No fracture or dislocation identified.EXAM: XR HAND 3+ VW LEFT HISTORY: trauma, ttp just proximal to wrist COMPARISON: None FINDINGS: Imaging of the hand demonstrates maintenance of alignment. No fractures areseen. Joint spaces are preserved. [facility], Radiant Results [facility] User - 04/11/2020 4:33 PM CDTEXAM:XR HAND 3+ VW LEFTHISTORY:trauma, ttp just proximal to wrist COMPARISON:NoneFINDINGS: Imaging of the hand demonstrates maintenance of alignment. No fractures areseen. Joint spaces are preserved.IMPRESSIONNo fracture or dislocation identified. [facility] WRIST 3+ VW [id number] 21:30:19 No acute bony abnormality is present. EXAM: XR WRIST 3+ VW LEFT HISTORY: trauma ttp proximal to wrist COMPARISON: None FINDINGS: Imaging of the wrist demonstrates maintenance of alignment. Joint spacesare preserved. The soft tissues are within normal limits. [facility], Radiant Results [facility] User - 04/11/2020 4:31 PM CDTEXAM:XR WRIST 3+ VW LEFTHISTORY:trauma ttp proximal to wrist COMPARISON:NoneFINDINGS: Im aging of the wrist demonstrates maintenance of alignment. Joint spacesare preserved. The soft tissues are within normal limits.IMPRESSIONNo acute bony abnormality is present.[facility] FOOT [facility]+ VW LEFT 2020-04-11 15:00:43 [...] reviewed this study and agree with the abovereport.[facility] ANKLE 3+ VW [id number] 15:00:43 No acute bony abnormality. Preliminary Report [...] forefoot swelling. [facility], Radiant Results [facility] User - 04/11/2020 10:01 AM CDTEXAM: XR [...] reviewed this study and agree with the abovereport.[facility] TIBIA FIBULA 2 VW LEFT 2020-04-11 [...] reviewed this study and agree with the abovereport.[facility]CT TRA[facility]MA THORAX W CONTRAST 2020-04-11 14:32:46 [...] reviewed this study and agree with the abovereport.[facility] HospitalCT TRAUMA ABDOMEN PELVIS W [id number] 14:32:46 Wedge compression deformity of T12, discussed [...] reviewed this study and agree with the abovereport.[facility]CT TRA[facility]MA HEAD WO [id number] 13:39:41Addendum by Macarena Paredes MD on 04/11/2020 [...] reviewed this study and agree with theabove report.[facility] TRA[facility]MA CERVICAL SPINE WO [id number] 13:39:41Addendum by Macarena Paredes MD on 04/11/2020 [...] reviewed this study and agree with theabove report.[facility]CT TRA[facility]MA THORACIC SPINE WO [id number] 13:39:41Addendum by Macarena Paredes MD on 04/11/2020 [...] reviewed this study and agree with theabove report.[facility]CT TRA[facility]MA LUMBAR SPINE WO [id number] 13:39:41Addendum by Macarena Paredes MD on 04/11/2020 [...] reviewed this study and agree with theabove report.[facility] HospitalType and Screen - The Type and [...] [facility] = 20) Laboratory Serv [facility] [place] [address] s [id number] Free: [phone] A No. [id number] IAT (test code = Negative Performed a t [facility] 1185) Laboratory Serv [facility] [address] [place] [address] s [address]Cowc Free: [phone] A No. [id number] [facility] Met[facility] (NA, K, CL, CO2, GLUCOSE, BUN, CREATININE, CA)2020-04-11 12:45:00 Test Item Value Reference Range Interpretation Comments NA (test code = 136 mmol/L 135-145 6723983218) K (test code = 4.7 mmol/L 3.5-5 Slight hemoly sis 2360216925) CL (test code = 102 mmol/L 98-108 0522134087) CO2 TOTAL (test 25 mmol/L 23-31 code = 8392027888) AGAP (test code = 2-16 3587863320) BUN (test code = 14 mg/dL 7-23 Slight hemo lysis 8734684592) GLUCOSE (test code 99 mg/dL 70-110 = 2042991782) CREATININE (test 0.85 mg/dL 0.5-1.04 code = 0762395066) CALCIUM (test code 9.0 mg/dL 8.6-10.6 = 9897023511) eGFR Calculation mL/min/1.73m2 (Non-) (test code = 4531487633) eGFR Calculation mL/min/1.73m2 () (test code = 1431540473) PAULA (test code = Association of PAULA) [...] or urine or abnormalities in imaging tests). [facility] HospitalProthrombin Time / [id number] 12:41:00 Test Item Value Reference Range Interpretation Comments PROTIME PATIENT (test See_Comment [Auto mated message] code = 5964-2) The system [employer] generated this result transmitted ref erence range: 10.1 - 1 2.6 Seconds. The re ference range was not u sed to interpret this result as normal/abnor mal. INR (test code = 6301-6) Nor mal INR <1.1; Warfarin Therap eutic range 2.0 to 3. 0 or 2.5 to 3.5, dep ending upon the indica tions. Lab Interpretation (test Normal code = 33801-1) [facility] HospitalaPTT2020-10-17 12:41:00 Test Item Value Reference Range Interpretation Comments APTT Patient (test code See_Comment L [Au tomated message] = 3173-2) The system [employer] generated this result transmitted ref erence range: 26 - 36 Seconds. The reference range was not used to int erpret this result as normal/abnormal . Lab Interpretation (test Abnormal code = 47535-4) [facility] HospitalProfile / [id number] 12:31:00 Test Item Value Reference Range Interpretation Comments WBC (test code = 6690-2) See_Comment H [A utomated message] The system [employer] generated this result transmit bhaskar reference range : 4.30 - 11.10 10*3/?L. The reference range was not used to interpret this result as normal/abnormal . RBC (test code = 789-8) See_Comment [Au tomated message] The system [employer] generated this result transmit bhaskar reference range [...] 777-3) See_Comment [Au tomated message] The system [employer] generated this result transmit bhaskar reference range : 166 - 358 10*3/?L. The reference range was not used to interpret this result as normal/abnormal . MPV (test code = 10.0 fL 9.5-12.9 09465-2) RDW-CV (test code = 12.9 % 12-15.5 788-0) RDW-SD (test code = 43.6 fL 39-49.9 24734-1) NRBC x10^3 (test code = <0.01 See_Comment [Au tomated message] 3128532107) The system [employer] generated this result transmit bhaskar reference range : 10*3/?L. The reference range was not used to interpret this result as normal/abnormal . NRBC/100 WBC (test code See_Comment [Au tomated message] = 8924395479) The system [employer] generated this result transmit bhaskar reference range : 0.0 - 10.0 /100 WBC s. The reference r micah was not used to interpret this result as normal/abnormal . IPF % (test code = 5176996838) Lab Interpretation (test Abnormal code = 21314-5) [facility] [id number] 02:32:00 Test Item Value Reference Range Interpretation Comments TROPONIN I (test 0.013 ng/mL See_Comment [Automated code = 1051771689) message] The system which generated this result [...] ? Lab Interpretation Normal (test code = 14709-4) [facility] / [facility] - DRUG SCREEN [id number] 05:48:00 Test Item Value Reference Range Interpretation Comments BENZO U (test code = Presumptive Positive Negative A 1590082100) ANN U (test code = Negative Negative 0316901580) AMPHET (test code = Presumptive Positive Negative A 4211858637) THC (test code = Negative Negative 6798594010) METHADONE (test code = Negative Negative 4166112117) Meth U (test code = Presumptive Positive Negative A 6482874465) OPIATES (test code = Negative Negative 5466139498) Cocaine Metabolite (test Negative Negative code = 3696137226) PROPOXY (test code = Negative Negative 3560429823) Tric U (test code = Negative Negative 7707898609) PCP (test code = Negative Negative 3249724582) OXYCOD (test code = Negative Negative 3320442809) PAULA (test code = PAULA) Urine Drug [...] testing). Lab Interpretation (test Abnormal code = 53964-5) [facility] CHEST 1 [id number] 04:51:01Impression: No acute cardiopulmonary changes. Preliminary Report [...] reviewed this study and agree withthe above report.[facility] HospitalTRMCLEOD HE[facility] SEACOASTBIJALN [id number] 04:48:00 Test Item Value Reference Range Interpretation Comments TROPONIN I (test 0.018 ng/mL See_Comment [Automated code = 0327933800) message] The system which generated this result [...] ? Lab Interpretation Normal (test code = 55513-3) [facility] HospitalN-TERMINAL LIT-[id number] 04:45:00 Test Item Value Reference Range Interpretation Comments NT-proBNP (test code 309 pg/mL See_Comment H [Autom ated = 7203675227) message] The system which generated this result transmitted reference range : <=125. The reference range was not used to interpret this result as normal/abnormal . PAULA (test code = PAULA) Biotin has been reported to cause a negative bias, interpret results relative to patient's use of biotin. Lab Interpretation Abnormal (test code = 35210-5) [facility] HospitalD-WLLBA2018-04-31 04:43:00 Test Item Value Reference Interpretation Comments Range D-DIMER (test code = <0.27 See_Comment [Autom ated 0990028888) message] The system which generated this result [...] diagnosis. Lab Interpretation Normal (test code = 40835-5) [facility] HospitalCOVID-19 (ID NOW RAPID TESTING)2020-04-10 04:42:00 Test Item Value Reference Range Interpretation Comments SARS-CoV-2 Rapid ID NOW Not Detected Not Detected (test code = 74120-6) PAULA (test code = PAULA) ID NOW COVID-19 Assay is an isothermal nucleic acid amplification test intended for the qualitative detection of nucleic acid from SARS-CoV-2 viral RNA in nasopharyngeal (FOOD RUNNER) specimens. It is used under Emergency Use [...] indicated. Lab Interpretation Normal (test code = 76757-4) [facility] HospitalMAGNESIUM2020-10-16 04:37:00 Test Item Value Reference Range Interpretation Comments MAGNESIUM (test code = 7342346871) 1.7 mg/dL 1.7-2.4 Lab Interpretation (test code = Normal 82683-0) [facility] HospitalCOM. METABOLIC PANEL (41075)2020-04-10 04:36:00 Test Item Value Reference Range Interpretation Comments NA (test code = 135 mmol/L 135-145 3422471894) K (test code = 3.4 mmol/L 3.5-5 L 0936823857) CL (test code = 99 mmol/L 98-108 2934168859) CO2 TOTAL (test code = 24 mmol/L 23-31 1621858283) AGAP (test code = 2-16 7229731078) BUN (test code = 8 mg/dL 7-23 7965111390) GLUCOSE (test code = 119 mg/dL 70-110 H 0321176446) CREATININE (test code = 0.71 mg/dL 0.5-1.04 2835783285) TOTAL BILI (test code = 0.5 mg/dL 0.1-1.4 5555510947) CALCIUM (test code = 10.9 mg/dL 8.6-10.6 H 4250527326) T PROTEIN (test code = 8.1 g/dL 6.3-8.2 5194295052) ALBUMIN (test code = 4.4 g/dL 3.5-5 7595526003) ALK PHOS (test code = 85 U/L 34-122 7618333871) ALTv (test code = 51 U/L 5-35 H 1742-6) AST(SGOT) (test code = 42 U/L 13-40 H 3715163955) eGFR Calculation mL/min/1.73m2 (Non-) (test code = 8261701120) eGFR Calculation mL/min/1.73m2 () (test code = 5280724172) PAULA (test code = PAULA) Association of [...] tests). Lab Interpretation Abnormal (test code = 92950-8) [facility] HospitalLIPASE2020-10-16 04:36:00 Test Item Value Reference Range Interpretation Comments LIPASE (test code = 8579659463) 193 U/L 0-220 Lab Interpretation (test code = Normal 94667-5) [facility] WITH [id number] 04:22:00 Test Item Value Reference Range Interpretation [...] RDW-SD (test code = 41.7 fL 39-49.9 16775-6) RDW-CV (test code = 12.5 % 12-15.5 788-0) PLT (test code = See_Comment [Automated 777-3) message] The sy stem which generated this result transmitted reference range : 166 - 358 10*3/ ?L. The reference r micah was not used to interpret this result as normal/abnormal . MPV (test code = 9.5 fL 9.5-12.9 16678-6) NRBC/100 WBC (test See_Comment [Automat ed code = 4239917321) message] The system which generated this result transmitted reference range : 0.0 - 10.0 /100 WBCs. The refer ence range was not u sed to interpret th is result as normal/abnormal . NRBC x10^3 (test code <0.01 See_Comment [Auto mated = 3816973796) message] The s ystem which generated this result transmitted reference range : 10*3/?L. The reference range was not used to interpret this result as normal/abnormal . GRAN MAT (NEUT) % 67.8 % (test code = 770-8) IMM GRAN % (test code 0.50 % = 3314497708) LYMPH % (test code = 24.0 % 736-9) MONO % (test code = 6.6 % 5905-5) EOS % (test code = 0.6 % 713-8) BASO % (test code = 0.5 % 706-2) GRAN MAT x10^3(ANC) 7.32 10*3/uL 1.88-7.09 H (test code = 1043895934) IMM GRAN x10^3 (test 0.05 10*3/uL 0-0.06 code = 5275820110) LYMPH x10^3 (test code 2.58 10*3/uL 1.32-3.29 = 731-0) MONO x10^3 (test code 0.71 10*3/uL 0.33-0.92 = 742-7) EOS x10^3 (test code = 0.06 10*3/uL 0.03-0.39 711-2) BASO x10^3 (test code 0.05 10*3/uL 0.01-0.07 = 704-7) Lab Interpretation Abnormal (test code = 19674-1) [facility]. METABOLIC PANEL (21562)2020-02-25 19:07:00 Test Item Value Reference Range Interpretation Comments NA (test code = 135 mmol/L 135-145 3199688322) K (test code = 3.7 mmol/L 3.5-5 9129751853) CL (test code = 106 mmol/L 98-108 0338551037) CO2 TOTAL (test code = 21 mmol/L 23-31 L 6580466074) AGAP (test code = 2-16 3896985529) BUN (test code = 9 mg/dL 7-23 6442798150) GLUCOSE (test code = 116 mg/dL 70-110 H 5584988810) CREATININE (test code = 0.57 mg/dL 0.5-1.04 9797393488) TOTAL BILI (test code = 0.7 mg/dL 0.1-1.1 7938195331) CALCIUM (test code = 9.4 mg/dL 8.6-10.6 4240693415) T PROTEIN (test code = 8.2 g/dL 6.3-8.2 8083395872) ALBUMIN (test code = 4.6 g/dL 3.5-5 6911600587) ALK PHOS (test code = 116 U/L 34-122 4387184496) ALTv (test code = 67 U/L 5-35 H 1742-6) AST(SGOT) (test code = 70 U/L 13-40 H 4750559344) eGFR Calculation mL/min/1.73m2 (Non-) (test code = 5431903191) eGFR Calculation mL/min/1.73m2 () (test code = 2758839148) PAULA (test code = PAULA) Association of [...] tests). Lab Interpretation Abnormal (test code = 09715-7) [facility] WITH [id number] 18:51:00 Test Item Value Reference Range Interpretation Comments WBC (test code = See_Comment [Automated message] 6690-2) The system [employer] generated this result transmitted ref erence range: 4.30 - 1 1.10 10*3/?L. The re ference range was not u sed to interpret this result as normal/abnor mal. RBC (test code = See_Comment [Automated message] 789-8) The system [employer] generated this result transmitted ref erence range: [...] RDW-SD (test code 41.6 fL 39-49.9 = 54861-4) RDW-CV (test code 12.6 % 12-15.5 = 788-0) PLT (test code = See_Comment [Automated message] 777-3) The system [employer] generated this result transmitted ref erence range: 166 - 35 8 10*3/?L. The re ference range was not u sed to interpret this result as normal/abnor mal. MPV (test code = 10.0 fL 9.5-12.9 96200-3) NRBC/100 WBC (test See_Comment [Automat ed message] code = 8287537752) The syste [employer] which generated this result transmitted ref erence range: 0.0 - 10 .0 /100 WBCs. The refer ence range was not u sed to interpret this result as normal/abnor mal. NRBC x10^3 (test <0.01 See_Comment [Automated message] code = 4747207481) The syste m which generated this result transmitted ref erence range: 10*3/?L. The reference range was not used to interpr et this result as normal/abnormal . GRAN MAT (NEUT) % 63.1 % (test code = 770-8) IMM GRAN % (test 0.40 % code = 3406596318) LYMPH % (test code 27.0 % = 736-9) MONO % (test code 8.0 % = 5905-5) EOS % (test code = 0.6 % 713-8) BASO % (test code 0.9 % = 706-2) GRAN MAT 5.02 10*3/uL 1.88-7.09 x10^3(ANC) (test code = 3081200038) IMM GRAN x10^3 0.03 10*3/uL 0-0.06 (test code = 0944590597) LYMPH x10^3 (test 2.15 10*3/uL 1.32-3.29 code = 731-0) MONO x10^3 (test 0.64 10*3/uL 0.33-0.92 code = 742-7) EOS x10^3 (test 0.05 10*3/uL 0.03-0.39 code = 711-2) BASO x10^3 (test 0.07 10*3/uL 0.01-0.07 code = 704-7) [facility]PELVIS W/PXVLPWHY4740-21-79 18:17:32NPO 4 hours. Do not withhold medsProcedure: [...] PMDictated By: MIGUEL GILMANDate: 08/22/2019 18:11[facility] , [id number] 17:09:00 Test Item Value Reference Range Interpretation Comments (Urine) (test code = Negative PREGU) [facility] LAB URINALYSIS WITHOUT [id number] 17:08:00 Test Item Value Reference Range Interpretation Comments Color (test code = UCOLR) Light yellow Lt. Yellow A Clarity (test code = UCLAR) Clear Glucose (test code = UGLUC) Negative Negative N Bilirubin (test code = UBILI) Negative Negative N Ketones (test code = UKET) Negative Negative N Specific [place] (test code = 1.015 1.005-1.030 A USPGR) Blood (test code = UBLD) Negative Negative N PH (test code = UPH) 5.5 4.5-8.0 A Protein (test code = UPROT) Negative Negative N Urobilinogen (test code = U 0.2 >0.2 N UROB) Nitrite (test code = UNITR) Negative Negative N Leukocyte Esterase (test code = Negative Negative N ULEUK) [facility]-GuzlgbOXA2283-09-56 16:39:00 Test Item Value Reference Range Interpretation [...] ( 4 - SerumAlbumin)] EGFR if >60 [place] (test code mL/min/1.73m\\ = EGFRAA) S\\2 EGFR if Non- >60 Estimate d Glomerular [place] (test code mL/min/1.73m\\ Filtrat ion Rate (eGFR) [...] and management of c hronic kidney failure. [facility] CenterXldofk-VohndyUKCTZP9330-55-27 16:39:00 Test Item Value Reference Range Interpretation Comments Lipase (test code = LIPA) 178 U/L 73-393 [facility] CBC WITH AUTO [id number] 16:16:00 Test Item Value Reference Range Interpretation [...] (test code = IG%) 0.4 % 0.0-0.4 [facility] 3 [id number] 17:59:10Procedure: XR ELBOW MIN 3 VIEWSOrder Date: 08/19/2019 2:54 PMOrdering Provider: FIONA Vincentinical Indication: [id number]: Pain of left elbow jointComparison: NoneFINDINGS:There is no fracture or dislocation.Osteoarthrosis of the left elbow, particularly at the radial articular surface.No lytic or sclerotic lesions.No joint effusion.No subcutaneous gas.IMPRESSION:1. No fracture or dislocation.2. Osteoarthrosis of the left elbow.3. No other significant findings.This final report was electronically signed by Dr Emile Jackson MD 08/19/20195:52 PMDictated By: EMILE JACKSONDate: 08/19/201917:52 [facility] AUGUSTINECT ABDOMEN PELVIS W [id number] 01:59:29 No acute intra- abdominal process. 3.2 [...] reviewed this study and agree with the abovereport.[facility], Urine 2019-07-13 00:29:00 Test Item Value Reference Range Interpretation Comments POCT PREG (test code = 1605) NEGATIVE Lab Interpretation (test code = Normal 24588-7) [facility] HospitalUrinalysis2020-01-17 23:44:00 Test Item Value Reference Range Interpretation Comments APPEARANCE (test code = Clear Clear 7216561612) COLOR (test code = Straw Yellow A 6802988784) PH (test code = 4.8-8.0 4550244943) SP GRAVITY (test code = 1.003-1.030 9305374175) GLU U QUAL (test code = Normal Normal 5112448902) BLOOD (test code = Negative Negative 5293536680) KETONES (test code = Negative Negative 7399848337) PROTEIN (test code = Negative Negative 2887-8) UROBILIN (test code = Normal Normal 9549974130) BILIRUBIN (test code = Negative Negative 7809314231) NITRITE (test code = Negative Negative 7818256203) LEUK JONATHON (test code = Negative Negative 0103453234) RBC/HPF (test code = See_Comment [Autom ated message] 2682146862) The system Dat[employer] generated this result transmitted ref erence range: 0 - 3 HP F. The reference range was not used to int erpret this result as normal/abnormal . WBC/HPF (test code = See_Comment [Autom ated message] 9819923338) The system [employer] generated this result transmitted ref erence range: 0 - 5 HP F. The reference range was not used to int erpret this result as normal/abnormal . BACTERIA (test code = Negative Negative 6374272730) SQ EPITH (test code = <1 See_Comment [Auto mated message] 0614920600) The system [employer] generated this result transmitted ref erence range: <=2 HPF. The reference range was not used to int erpret this result as normal/abnormal . Lab Interpretation (test Abnormal code = 17027-7) [facility]. METABOLIC PANEL (91578)2019-07-12 23:30:00 Test Item Value Reference Range Interpretation Comments NA (test code = 141 mmol/L 135-145 5688625853) K (test code = 3.5 mmol/L 3.5-5 9174390964) CL (test code = 105 mmol/L 98-108 7803099007) CO2 TOTAL (test code = 27 mmol/L 23-31 0271428551) AGAP (test code = 2-16 1404743450) BUN (test code = 9 mg/dL 7-23 6420565844) GLUCOSE (test code = 80 mg/dL 70-110 0234866362) CREATININE (test code = 0.50 mg/dL 0.5-1.04 6887797991) TOTAL BILI (test code = 0.4 mg/dL 0.1-1.9 3001796915) CALCIUM (test code = 8.7 mg/dL 8.6-10.6 8848138754) T PROTEIN (test code = 7.4 g/dL 6.3-8.2 5853103038) ALBUMIN (test code = 4.2 g/dL 3.5-5 5721776992) ALK PHOS (test code = 90 U/L 34-122 6803341044) ALTv (test code = 157 U/L 5-35 H 1742-6) AST(SGOT) (test code = 151 U/L 13-40 H 8047219572) eGFR Calculation mL/min/1.73m2 (Non-) (test code = 2986631208) eGFR Calculation mL/min/1.73m2 () (test code = 0718352029) PAULA (test code = PAULA) Association of [...] tests). Lab Interpretation Abnormal (test code = 12268-9) [facility] HospitalLipase [id number] 23:30:00 Test Item Value Reference Range Interpretation Comments LIPASE (test code = 7924340083) 86 U/L 0-220 Lab Interpretation (test code = Normal 97401-2) [facility] HospitalCBC WITH [id number] 23:16:00 Test Item Value Reference Range Interpretation Comments WBC (test code = See_Comment [Automated 5690-2) message] The sy stem which generated this result transmitted reference range : 4.30 - 11.10 10*3/?L. The reference range was not used to interpret this result as normal/abnormal . RBC (test code = See_Comment [Automated 569-8) message] The sy stem which generated this [...] RDW-SD (test code = 45.1 fL 39-49.9 26863-3) RDW-CV (test code = 13.3 % 12-15.5 788-0) PLT (test code = See_Comment [Automated 777-3) message] The sy stem which generated this result transmitted reference range : 166 - 358 10*3/ ?L. The reference r micah was not used to interpret this result as normal/abnormal . MPV (test code = 9.3 fL 9.5-12.9 L 30019-6) NRBC/100 WBC (test See_Comment [Automat ed code = 6089803745) message] The system which generated this result transmitted reference range : 0.0 - 10.0 /100 WBCs. The refer ence range was not u sed to interpret th is result as normal/abnormal . NRBC x10^3 (test code <0.01 See_Comment [Auto mated = 8192019399) message] The s ystem which generated this result transmitted reference range : 10*3/?L. The reference range was not used to interpret this result as normal/abnormal . GRAN MAT (NEUT) % 52.8 % (test code = 770-8) IMM GRAN % (test code 0.20 % = 6495996489) LYMPH % (test code = 36.2 % 736-9) MONO % (test code = 7.3 % 5905-5) EOS % (test code = 2.4 % 713-8) BASO % (test code = 1.1 % 706-2) GRAN MAT x10^3(ANC) 2.47 10*3/uL 1.88-7.09 (test code = 7648821013) IMM GRAN x10^3 (test <0.03 0-0.06 code = 3695700945) LYMPH x10^3 (test code 1.69 10*3/uL 1.32-3.29 = 731-0) MONO x10^3 (test code 0.34 10*3/uL 0.33-0.92 = 742-7) EOS x10^3 (test code = 0.11 10*3/uL 0.03-0.39 711-2) BASO x10^3 (test code 0.05 10*3/uL 0.01-0.07 = 704-7) Lab Interpretation Abnormal (test code = 12353-2) [facility]XR CHEST 1 [id number] 16:58:56* * * * * * * [...] normal and the lungs are well expanded andclear.[facility]
[2022-08-09 16:53] LABS: Urine Blood 3+ (Negative); Urine Glucose Negative (Negative); Urine Protein Trace (Negative)
--- NOTE | 2022-08-09 17:05 | RAD REPORT ---
EXAM DESCRIPTION: RAD - Chest Single View - 08/09/2022 5:00 pm CLINICAL HISTORY: Chest pain Chest pain. COMPARISON: Chest Single View dated 08/04/2022; Chest Single View dated 07/30/2022; Chest Single View da bhaskar 07/14/2022; Chest Single View dated 09/24/2021 FINDINGS: Portable technique limits examination quality. The lungs are grossly clear. The heart is normal in size. No displaced fractures. IMPRESSION: No acute intrathoracic process suspected.
[2022-08-09 17:15] LABS: Absolute Lymphocytes (CBC) 1.7 K/uL (0.7-4.9); Hematocrit 41.3 % (36.0-45.0); Lymphocytes % 22.6 % (15.3-44.8); MCV 86.5 fL (80-100); RBC Red Blood Cell Count 4.78 M/uL (3.86-4.86)
[2022-08-09 17:37] LABS: Barbiturates NEGATIVE (NEGATIVE); Benzodiazepines NEGATIVE (NEGATIVE); Cocaine NEGATIVE (NEGATIVE); METHAMPHETAM NEGATIVE (NEGATIVE); Methadone NEGATIVE (NEGATIVE); Opiates POSITIVE (NEGATIVE); Phencyclidine NEGATIVE (NEGATIVE); THC Cannibis NEGATIVE (NEGATIVE)
--- NOTE | 2022-08-09 17:53 | ER ---
Nurse's Notes [facility] Name: Denise Wick Age: 42 yrs Sex: Female : 1980 Arrival Date: 08/09/2022 Time: 16:01 Bed 14 Private MD: Diagnosis: Chest pain, unspecified;Palpitations Presentation: 08/09 17:15 Chief complaint: EMS states: patient was at the dentist with her when she ko1 started shaking and having palpitations and chest pain. Coronavirus screen: At this time, the client does not indicate any symptoms associated with coronavirus-19. Ebola Screen: No symptoms or risks identified at this time. Initial Sepsis Screen: Does the patient meet any 2 criteria? No. Patient's initial sepsis screen is negative. Does the patient have a suspected source of infection? No. Patient's initial sepsis screen is negative. Risk Assessment: Do you want to hurt yourself or someone else? Patient reports no desire to harm self or others. Onset of symptoms was August 09, 2022. 17:15 Method Of Arrival: EMS: [facility] ko1 17:15 Acuity: CHRISTINA 3 ko1 Triage Assessment: 17:17 General: Appears in no apparent distress. uncomfortable, Behavior is anxious. Pain: ko1 Denies pain. DOSIMETRIST: 17:17 LMP N/A - Irregular menses ko1 Historical: - Allergies: 17:17 Codeine; ko1 17:17 PENICILLINS; ko1 17:17 Toradol; ko1 17:17 Tramadol HCl; ko1 - PMHx: 17:17 Angina; Anxiety; Bipolar disorder; Hypercholesterolemia; Hypertension; Hypothyroidism; ko1 - PSHx: 17:17 section; Ligation of fallopian tube; ko1 - Immunization history:: Adult Immunizations unknown. - Social history:: Smoking status: Patient denies any tobacco usage or history of. - Family history:: not pertinent. - Hospitalizations: : No recent hospitalization is reported. Screenin:36 [facility] ED Fall Risk Assessment (Adult) History of falling in the last 3 months, ko1 including since admission No falls in past 3 months (0 pts) Confusion or Disorientation No (0 pts) Intoxicated or Sedated No (0 pts) Impaired Gait No (0 pts) Mobility Assist Device Used No (0 pt) Altered Elimination No (0 pt) Score/Fall Risk Level 0 - 2 = Low Risk Oriented to surroundings, Maintained a safe environment, Educated pt \T\ family on fall prevention, incl call for assistance when getting out of bed, Assessed \T\ reinforced patient's understanding of fall precautions, Provided non-skid footwear, Hourly rounding (assess needs \T\ fall precautionary measures) done, Used ambulatory aids as needed (educated on \T\ assisted with), Used gait belt as appropriate. Abuse screen: Denies threats or abuse. Denies injuries from another. Nutritional screening: No deficits noted. Tuberculosis screening: No symptoms or risk factors identified. Assessment: 17:00 General: Appears in no apparent distress. comfortable, Behavior is cooperative, ko1 appropriate for age, anxious. Pain: Denies pain. Neuro: No deficits noted. Cardiovascular: No deficits noted. Respiratory: No deficits noted. GI: No deficits noted. : No deficits noted. EENT: No deficits noted. Derm: No deficits noted. Musculoskeletal: No deficits noted. 17:37 Reassessment: Patient appears in no apparent distress at this time. No changes from ko1 previously documented assessment. Patient is alert, oriented x 3, equal unlabored respirations, skin warm/dry/pink. patient is requesting to leave and just see a florist tomorrow. She said she has to leave now or her will leave her here and he is waiting outside. Informed Dr Steven. Vital Signs: 17:15 BP 138 / 88; Pulse 91; Resp 18; Temp 97.4; Pulse Ox 99% ; ko1 17:36 BP 133 / 78; Pulse 86; Resp 18; Pulse Ox 99% ; ko1 ED Course: 16:01 Patient arrived in ED. rn 16:02 Noah Steven MD is Attending Physician. rn 16:39 Tamiko Harrington, DRISS is Primary Nurse. ko1 17:00 No provider procedures requiring assistance completed. ko1 17:00 Maintain EMS IV. Dressing intact. Site clean \T\ dry. Gauge \T\ site: 22g left upper arm. ko 1 17:05 Basic Metabolic Panel Sent. ko1 17:05 CBC with Diff Sent. ko1 17:05 D-Dimer Sent. ko1 17:05 NT PRO-BNP Sent. ko1 17:05 Troponin HS Sent. ko1 17:13 Urine Drug Screen Sent. ko1 17:13 Urine --Ancillary (enter results) Sent. ko1 17:17 Triage completed. ko1 17:17 Arm band placed on right wrist. ko1 17:18 EKG done, by ED staff. tm3 17:36 Patient has correct armband on for positive identification. Bed in low position. Call ko1 light in reach. Side rails up X 1. Client placed on continuous cardiac and pulse oximetry monitoring. NIBP monitoring applied. clinical research monitor on. 17:39 IV discontinued, intact, bleeding controlled, No redness/swelling at site. Pressure ko1 dressing applied. Administered Medications: 16:46 Drug: NS 0.9% 1000 ml Route: IV; Rate: 1000 ml; Site: left upper arm; ko1 Medication: 17:36 VIS not applicable for this client. ko1 Outcome: 17:53 Discharge ordered by . rn 17:55 Discharged to home ambulatory. ko1 17:55 Condition: good 17:55 Discharge instructions given to patient, Instructed on follow up and referral plans. Demonstrated understanding of instructions, follow-up care. 17:56 Patient left the ED. ko1 Signatures: Tray Austin tm3 Noah Steven MD MD rn Oliver, Kathy, RN RN ko1 Corrections: (The following items were deleted from the chart) 17:39 17:36 No provider procedures requiring assistance completed. ko1 ko1 17:39 17:36 Maintain EMS IV. Dressing intact. Site clean \T\ dry. Gauge \T\ site: 22g left upper ko 1 arm. ko1
--- NOTE | 2022-08-09 17:54 | EDPHYS ---
Physician Documentation [facility] Name: Denise Wick Age: 42 yrs Sex: Female : 1980 Arrival Date: 08/09/2022 Time: 16:01 Bed 14 Private MD: ED Physician Noah Steven HPI: 08/09 16:29 This 42 yrs old Female presents to ER via Unassigned with complaints of palpitations. rn 16:29 The patient presents with a history of heart racing. Context: The symptoms occur at rn rest, with anxiety. Onset: The symptoms/episode began/occurred today. Duration: The patient or guardian reports a single episode. Modifying factors: The symptoms are aggravated by nothing. The symptoms are alleviated by nothing. Associated signs and symptoms: Pertinent positives: lightheadedness. Severity of symptoms: At their worst the symptoms were moderate in the emergency department the symptoms have improved. The patient has experienced similar episodes in the past. The patient has been recently seen by a physician:. Pt reports was at physicians office for her today, started to have palpitations and chest discomfort, states HR in 140s, EMS reports HR now 102 and sinus. NO fever. NO sob/abd pain. No gi bleed. + recurrent episodes and chest pain and palpitations with multiple visits to ER, states was recommended she have a heart cath but left AMA as she has multiple times in past. Also reports could have "accidentally had meth in coffee". . 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 - Social history:: Smoking status: Patient denies any tobacco usage or history of. - Family history:: not pertinent. - Hospitalizations: : No recent hospitalization is reported. ROS: 16:29 Constitutional: Negative for fever, chills, and weight loss, Eyes: Negative for injury, rn pain, redness, and discharge, Neck: Negative for injury, pain, and swelling, Cardiovascular: Negative for edema Respiratory: Negative for shortness of breath, cough, wheezing, and pleuritic chest pain, Abdomen/GI: Negative for abdominal pain, nausea, vomiting, diarrhea, and constipation, Back: Negative for injury and pain, MS/Extremity: Negative for injury and deformity, Skin: Negative for injury, rash, and discoloration, Neuro: Negative for headache, weakness, numbness, tingling, and seizure. Exam: 16:29 Constitutional: This is a well developed, well nourished patient who is awake, alert, rn seems anxious Head/Face: Normocephalic, atraumatic. Cardiovascular: Sinus tachycardia, regular. No pulse deficits. Respiratory: No increased work of breathing, no retractions or nasal flaring. Abdomen/GI: Soft, non-tender Skin: Warm, dry MS/ Extremity: Pulses equal, no cyanosis. Neuro: Awake and alert, GCS 15, oriented to person, place, time, and situation. Cranial nerves II-XII grossly intact. Motor strength 5/5 in all extremities. Sensory grossly intact. 17:31 ECG was reviewed by the Attending Physician. rn Vital Signs: 17:15 BP 138 / 88; Pulse 91; Resp 18; Temp 97.4; Pulse Ox 99% ; ko1 17:36 BP 133 / 78; Pulse 86; Resp 18; Pulse Ox 99% ; ko1 MDM: 16:02 Patient medically screened. rn 17:29 Differential diagnosis: arrythmia, dehydration, stress disorder. Data reviewed: vital rn signs, nurses notes, lab test result(s), EKG, radiologic studies, plain films, and as a result, I will. Consideration of Admission/Observation Escalation of care including admission/observation considered. 17:48 Counseling: I had a detailed discussion with the patient and/or guardian regarding: the rn historical points, exam findings, and any diagnostic results supporting the discharge/admit diagnosis, lab results, the need for outpatient follow up, to return to the emergency department if symptoms worsen or persist or if there are any questions or concerns that arise at home. Response to treatment: the patient's symptoms have markedly improved after treatment, and as a result, I will discharge patient. Special discussion: I discussed with the patient/guardian in detail that at this point there is no indication for admission to the hospital. It is understood, however, that if the symptoms persist or worsen the patient needs to return immediately for re-evaluation. ED course: Pt reports "needs to go", not willing to stay for rest of results. Drug screen + for opiates. Understands risks of leaving prior to results. Pt walking out and could not be bothered to stop. . 08/09 16:04 Order name: Basic Metabolic Panel rn 08/09 16:04 Order name: CBC with Diff rn 08/09 16:04 Order name: D-Dimer rn 08/09 16:04 Order name: NT PRO-BNP rn 08/09 16:04 Order name: Troponin HS rn 08/09 16:04 Order name: Urine Drug Screen rn 08/09 16:04 Order name: XRAY Chest (1 view) rn 08/09 16:53 Order name: Urine Dipstick-Ancillary; Complete Time: 17:30 EDMS 08/09 16:53 Order name: Urine --Ancillary (enter results) bd 08/09 17:06 Order name: RAD; Complete Time: 17:30 EDMS 08/09 17:18 Order name: CBC with Automated Diff; Complete Time: 17:30 EDMS 08/09 17:37 Order name: Urine Drug Screen; Complete Time: 17:48 EDMS 08/09 17:41 Order name: Urine --Ancillary; Complete Time: 17:48 EDMS 08/09 16:04 Order name: EKG; Complete Time: 16:05 rn 08/09 16:04 Order name: Cardiac monitoring; Complete Time: 16:47 rn 08/09 16:04 Order name: EKG - Nurse/Tech; Complete Time: 16:47 rn 08/09 16:04 Order name: IV Saline Lock; Complete Time: 16:47 rn 08/09 16:04 Order name: Labs collected and sent; Complete Time: 17:06 rn 08/09 16:04 Order name: O2 Per Protocol; Complete Time: 16:47 rn 08/09 16:04 Order name: O2 Sat Monitoring; Complete Time: 16:47 rn EC:31 Rate is 83 beats/min. Rhythm is regular. QRS [place] is Normal. LA interval is shortened rn at 98 msec. QRS interval is normal. QT interval is normal. No Q waves. T waves are Normal. No ST changes noted. Clinical impression: NSR w/ Non-specific ST/T Changes. Interpreted by me. Reviewed by me. Administered Medications: 16:46 Drug: NS 0.9% 1000 ml Route: IV; Rate: 1000 ml; Site: left upper arm; ko1 Disposition Summary: 08/09/22 17:53 Discharge Ordered Location: Home rn Problem: new rn Symptoms: have improved rn Condition: Stable rn Diagnosis - Chest pain, unspecified rn - Palpitations rn Followup: rn - With: Private Physician - When: As needed - Reason: Recheck today's complaints, Re-evaluation by your physician Discharge Instructions: - Discharge Summary Sheet rn - Nonspecific Chest Pain, Adult rn - Urinary Tract Infection, Adult rn - Palpitations rn Forms: - Medication Reconciliation Form rn - Thank You Letter rn - 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
[2022-08-09 18:07] VITALS: TEMP 97.4; O2SAT 99
[2022-08-09 18:11] VITALS: BP 133/78
--- NOTE | 2022-08-10 12:59 | EKG ---
Test Date: 2022-08-09 Test Time: 17:04:22 Governor Assembler: TM MEASUREMENT RESULTS: Intervals: Rate: 83 MS: 98 QRSD: 94 QT: 374 QTc: 439 [place]: P: 22 MS: 98 QRS: 73 T: -3 INTERPRETIVE STATEMENTS: Sinus rhythm with short MS Nonspecific ST and T wave abnormality Abnormal ECG Compared to ECG 08/04/2022 11:15:25 Short MS interval now present ST (T wave) deviation now present Electronically Signed On 08-10-22 12:58:14 MOLDING SANDER by Jostin France
== END 2022-08-09 17:56 | disposition home or self-care (01) ==
LOC: ER 15:56
DX: R07.89 Other chest pain (principal); R00.2 Palpitations; F31.9 Bipolar disorder, unspecified; Z88.0 Allergy status to penicillin; Z88.5 Allergy status to narcotic agent
CPT/HCPCS: 71045; 80307; 81003; 81025; 85025; 93005

== ENCOUNTER 2024-05-17 00:23 | Emergency (ER) | payer OTHER ==
--- OUTSIDE RECORDS SUMMARY | 2024-05-17 00:34 | XMS REPORT | Continuity of Care Document ---
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 injection 4 mg 09-17 03:45: 00 09-17 03:02 :00 No 4mg 4 mg, Slow IV Push, ONCE, 1 dose, 09/16/20 at 2245, [facility] NaCl 0.9% (NS) bolus infusion 1,000 mL 09-17 03:45: 00 09-17 04:55 :00 No 1000mL at 999 mL/hr, 1,000 mL, IV Infusion, ONCE, 1 dose, 09/16/20 at 2245, STAT [facility] ondansetron 4 mg disintegrat ing tablet 09-16 00:00: 00 11-22 00:00 :00 No [id number] 4mg Take 1 tablet by mouth every 8 (eight) hours as needed for Nausea and Vomiting (N/V). [facility] iohexol (OMNIPAQUE 350 BULK-100 mL) injection 120 mL 09-06 11:45: 00 09-06 11:27 :00 No [id number] 120mL 120 mL, Intravenou s, ONCE, 1 dose, [place] 09/06/20 at 0645, Routine [facility] KCL 20 mEq tablet 09-06 00:00: 00 11-22 00:00 :00 No [id number] 20meq Take 1 tablet by mouth daily. [facility] furosemide (LASIX) 40 mg tablet 09-06 00:00: 00 09-10 04:59 :00 No [id number] 40mg Take 1 tablet by mouth daily for 3 days. [facility] hydrOXYzine (ATARAX) tablet 25 mg 09-02 02:00: 00 09-02 01:21 :00 No [id number] 25mg 25 mg, Oral, ONCE, 1 dose, Mon09/01/20 at 2000, RAJANI [facility] hydralAZINE (APRESOLINE ) injection 10 mg 10 01:30: 00 09-02 00:25 :00 No [id number] 10mg 10 mg, Slow IV Push, ONCE, 1 dose, Mon09/01/20 at 1930, STAT
In dication: Hypertensi ve Emergency [facility] ondansetron (ZOFRAN (PF)) injection 4 mg 310 01:15: 00 09-02 00:10 :00 No [id number] 4mg 4 mg, Slow IV Push, ONCE, 1 dose, Mon09/01/20 at 1915, RAJANI [facility] hydrOXYzine 25 mg tablet 09-01 00:00: 11-22 00:00 :00 No [id number] 25mg Take 1 tablet by mouth every 6 (six) hours as needed for Anxiety. [facility] hydroCHLORO thiazide 25 mg tablet 09-01 00:00: 10-02 04:59 :00 No [id number] 25mg Take 1 tablet by mouth every morning and evening for 30 days. [facility] gabapentin 300 mg capsule 2019-06 02:02: 34 Yes 300mg Take 300 mg by mouth 2 (two) times daily. [facility] levothyroxi ne 100 mcg tablet 2019-06 02:02: 34 Yes 100ug Take 100 mcg by mouth daily. [facility] meloxicam 7.5 mg tablet 2019-06 02:02: 34 Yes 7.5mg Take 7.5 mg by mouth daily. [facility] metoprolol tartrate 25 mg tablet 2019-06 02:02: 34 Yes 25mg Take 25 mg by mouth daily. [facility] omeprazole 20 mg capsule 2019-06 02:02: 34 Yes 20mg Take 20 mg by mouth daily. [facility] pravastatin 20 mg tablet 2019-06 02:02: 34 Yes 20mg Take 20 mg by mouth at bedtime. [facility] triamcinolo ne acetonide/l .s.b. (ARISTOCORT A TOPICAL) 2019-06 02:02: 34 Yes .1% Apply 0.1 % to area(s) 2 (two) times daily. [facility] ibuprofen 200 mg tablet 2019-06 00:00: 00 04-15 04:59 :00 No [id number] 600mg Take 3 tablets by mouth every 6 (six) hours as needed (Alternate with acetaminop hen for pain). [facility] acetaminoph en 325 mg tablet 2019-06 00:00: 00 11-22 00:00 :00 No [id number] 650mg Take 2 tablets by mouth every 6 (six) hours as needed for Alternate with ibuprofen for pain scale 4-6. [facility] ALPRAZolam (XANAX) tablet 0.25 mg 2019-06 01:00: 00 Yes .25mg 0.25 mg, Oral, BID, First dose on 04/12/20 at 2000, Until Discontinu ed, Routine [facility] ziprasidone (GEODON) injection 20 mg 2019-06 18:20: 44 04-19 18:19 :44 No 20mg 20 mg, Intramuscu lar, Q6HPRN, Starting 04/12/20 at 1320, Until [place] 04/19/20 at 1319, Routine, Agitation [facility] carBAMazepi ne (TEGRETOL) tablet 200 mg 2019-06 03:00: 00 Yes 200mg 200 mg, Oral, Q12H, First dose on 04/11/20 at 2200, Until Discontinu ed, Routine [facility] methocarbam oL (ROBAXIN) tablet 500 mg 2019-06 01:00: 00 Yes 500mg 500 mg, Oral, QID, First dose on 04/11/20 at 2000, Until Discontinu ed, Routine [facility] metoprolol tartrate (LOPRESSOR) tablet 25 mg 2019-06 01:00: 00 Yes 25mg 25 mg, Oral, BID, First dose on 04/11/20 at 2000, Until Discontinu ed, Routine [facility] HYDROcodone -acetaminop hen (NORCO 5) 5-325 mg tablet 1 tablet 2019-06 23:22: 00 04-11 23:30 :00 No 1{tbl} 1 tablet, Oral, ONCE, 1 dose, 04/11/20 at 1830, Routine [facility] omeprazole (PRILOSEC) capsule 20 mg 2019-06 17:15: 00 Yes 20mg 20 mg, Oral, DAILY, First dose on 04/11/20 at 1215, Until [facility]continu ed, [facility]RO[facility] 100 mcg 2019-06 17:15: 00 Yes 100ug 100 mcg, Oral, QAM-0600, First dose on 04/11/20 at 1215, Until Discontinu ed, Routine [facility] D5W 0.45% NaCl (1/2NS) 1 L + KCL 20 mEq 2019-06 17:15: 00 04-13 13:57 :05 No IV Infusion, at 125 mL/hr, CONTINUOUS , Starting 04/11/20 at 1215, Until 04/13/20 at 0857, Routine [facility] acetaminoph en (TYLENOL) tablet 650 mg 2019-06 17:04: 27 Yes 650mg 650 mg, Oral, Q6HPRN, Starting 04/11/20 at 1204, Until Discontinu ed, Routine, Pain (scale 1-3) [facility] docusate (COLACE) capsule 100 mg 2019-06 14:00: 00 Yes 100mg 100 mg, Oral, DAILY, First dose on 04/11/20 at 0900, Until Discontinu ed, Routine [facility] iohexol (OMNIPAQUE 350 BULK-100 mL) injection 120 mL 2019-06 12:33: 00 04-11 12:35 :00 No 120mL 120 mL, Intravenou s, ONCE, 1 dose, 04/11/20 at 0745, Routine [facility] lactated ringers IV infusion 1,000 mL 2019-06 12:00: 00 04-11 14:11 :00 No 1000mL at 999 mL/hr, 1,000 mL, IV Infusion, ONCE, 1 dose, 04/11/20 at 0700, STAT [facility] LORazepam (ATIVAN) tablet 1 mg 2019-06 05:30: 00 04-11 04:28 :00 No 1mg 1 mg, Oral, ONCE, 1 dose, 04/11/20 at 0030, RAJANI [facility] ketorolac (TORADOL) injection 15 mg 2019-06 03:45: 04-11 02:59 :00 No 15mg 15 mg, Slow IV Push, ONCE, 1 dose, 04/10/20 at 2245, Routine
membership correspondent approving Restricted medication : PEDRITO ROSADO [facility] clonazePAM (KLONOPIN) 1 mg tablet 2019-06 00:00: 00 Yes [id number] 1mg Take 1 tablet by mouth 3 (three) times daily as needed (anxiety). [facility] ibuprofen (IBU) tablet 800 mg 07-13 04:15: 07-13 03:07 :00 No 800mg 800 mg, Oral, ONCE, 1 dose, 07/12/19 at 2215, [facility] HYDROcodone -acetaminop hen (NORCO 5) 5-325 mg tablet 1 tablet 07-13 04:15: 00 07-13 03:07 :00 No 1{tbl} 1 tablet, Oral, ONCE, 1 dose, 07/12/19 at 2215, [facility] ondansetron (ZOFRAN (PF)) injection 4 mg 07-13 03:30: 00 07-13 02:37 :00 No 4mg 4 mg, Slow IV Push, ONCE, 1 dose, 07/12/19 at 2130, [facility] morpHINE injection 4 mg 07-13 03:30: 00 07-13 02:37 :00 No 4mg 4 mg, Slow IV Push, ONCE, 1 dose, 07/12/19 at 2130, STAT [facility] iohexol (OMNIPAQUE 350 BULK-100 mL) injection 120 mL 07-13 00:45: 00 07-13 00:45 :00 No 120mL 120 mL, Intravenou s, ONCE, 1 dose, 07/12/19 at 1900, Routine [facility] NaCl 0.9% (NS) bolus infusion 1,000 mL 07-12 21:45: 00 07-13 03:05 :00 No 1000mL at 999 mL/hr, 1,000 mL, IV Infusion, ONCE, 1 dose, 07/12/19 at 1545, RAJANI [facility] HYDROcodone -acetaminop hen 5-325 mg tablet 07-12 00:00: 00 Yes [id number] 1{tbl} Take 1 tablet by mouth every 6 (six) hours as needed for Pain (scale 1-3). [facility] levothyroxi ne 100 mcg tablet 01-05 06:37: 32 Yes 100ug Take 100 mcg by mouth daily. [facility] meloxicam 7.5 mg tablet 01-05 06:37: 32 Yes 7.5mg Take 7.5 mg by mouth daily. [facility] metoprolol tartrate 25 mg tablet 01-05 06:37: 32 Yes 25mg Take 25 mg by mouth daily. [facility] omeprazole 20 mg capsule 01-05 06:37: 32 Yes 20mg Take 20 mg by mouth daily. [facility] pravastatin 20 mg tablet 01-05 06:37: 32 Yes 20mg Take 20 mg by mouth at bedtime. [facility] triamcinolo ne acetonide/l .s.b. (ARISTOCORT A TOPICAL) 01-05 06:37: 32 Yes .1% Apply 0.1 % to area(s) 2 (two) times daily. [facility] gabapentin 300 mg capsule 01-05 06:27: 56 Yes 300mg Take 300 mg by mouth 2 (two) times daily. [facility] Vital Signs Vital Name Observation Time Observation Value Comments S ourmaritza Systolic blood pressure 2024-04-15 13:00:00 150 mm[Hg] [facility] Diastolic blood pressure 2024-04-15 13:00:00 83 mm[Hg] [facility] Heart rate 2024-04-15 13:00:00 82 [facility] Body temperature 2024-04-15 13:00:00 35.78 Yamila [facility] Respiratory rate 2024-04-15 13:00:00 22 /min [facility] Oxygen saturation in Arterial blood by Pulse oximetry 2024-04-15 13:00:00 97 /min [facility] Body height 2024-04-15 11:02:[address] [facility] Body weight 2024-04-15 11:02:[address] [facility] BMI 2024-04-15 11:02:00 32[facility]44 [facility] 2024-03-18 01:01:00 167.64 CM Weight 2024-03-18 01:01:00 89.35 KG Height 2024-03-12 05:45:00 167.64 CM Weight 2024-03-12 05:45:00 90 KG Weight 2023-11-02 00:15:00 91 KG Height 2023-11-01 02:16:00 167.64 CM Weight 2023-11-01 02:16:00 94.5 KG Weight 2023-08-04 04:59:00 94 KG Weight 2023-08-03 04:41:00 94.5 KG Weight 2023-08-02 00:20:00 96 KG Height 2023-08-01 01:50:00 167.64 CM Weight 2023-08-01 01:50:00 72.57 KG Systolic blood pressure 2022-10-18 07:45:00 135 mm[Hg] [facility] Diastolic blood pressure 2022-10-18 07:45:00 103 mm[Hg] [facility] Heart rate 2022-10-18 07:45:00 103 /min [facility] 2022-10-18 07:45:00 18 /min [facility] Oxygen saturation in Arterial blood by Pulse oximetry 2022-10-18 07:45:00 100 /min [facility] Body temperature 2022-10-18 05:13:00 37.11 Yamila [facility] Body height 2022-10-18 05:13:[address] [facility] Body weight 2022-10-18 05:13:[address] [facility] BMI 2022-10-18 05:13:00 25.82 kg/m2 [facility] Heart rate 2021-09-22 03:30:00 87 /min [facility] Respiratory rate 2021-09-22 03:30:00 20 /min [facility] Oxygen saturation in Arterial blood by Pulse oximetry 2021-09-22 03:30:00 100 /min [facility] Systolic blood pressure 2021-09-22 03:00:00 148 mm[Hg] [facility] Diastolic blood pressure 2021-09-22 03:00:00 86 mm[Hg] [facility] Body temperature 2021-09-22 01:12:00 36.67 Yamila [facility] Body height 2021-09-22 01:12:[address] [facility] Body weight 2021-09-22 01:12:[address] [facility] BMI 2021-09-22 01:12:00 25.82 kg/m2 [facility] Systolic blood pressure 2021-03-25 15:30:00 153 mm[Hg] [facility] Diastolic blood pressure 2021-03-25 15:30:00 96 mm[Hg] [facility] Heart rate 2021-03-25 15:30:00 100 /min [facility] Respiratory rate 2021-03-25 15:30:00 20 /min [facility] Oxygen saturation in Arterial blood by Pulse oximetry 2021-03-25 15:30:00 97 /min [facility] Body temperature 2021-03-25 08:55:00 36.39 Yamila [facility] Body weight 2021-03-25 08:55:[address] [facility] BMI 2021-03-25 08:55:00 28.89 kg/m2 [facility] Systolic blood pressure 2020-11-23 17:24:00 104 mm[Hg] [facility] Diastolic blood pressure 2020-11-23 17:24:00 68 mm[Hg] [facility] Heart rate 2020-11-23 17:24:00 91 /min Un[facility] Respiratory rate 2020-11-23 17:24:00 18 /min [facility] Oxygen saturation in Arterial blood by Pulse oximetry 2020-11-23 17:24:00 97 /min [facility] Body temperature 2020-11-23 12:24:00 36.94 Yamila [facility] Body weight 2020-11-23 09:53:[address] [facility] BMI 2020-11-23 09:53:00 28.89 kg/m2 Univ [facility] Body height 2020-11-22 21:41:[address] [facility] Systolic blood pressure 2020-11-23 17:24:00 104 mm[Hg] [facility] Diastolic blood pressure 2020-11-23 17:24:00 68 mm[Hg] [facility] Heart rate 2020-11-23 17:24:00 91 /min Un[facility] Respiratory rate 2020-11-23 17:24:00 18 /min [facility] Oxygen saturation in Arterial blood by Pulse oximetry 2020-11-23 17:24:00 97 /min [facility] Body temperature 2020-11-23 12:24:00 36.94 Yamila [facility] Body weight 2020-11-23 09:53:[address] [facility] BMI 2020-11-23 09:53:00 28.89 kg/m2 [facility] Body height 2020-11-22 21:41:[address] [facility] Systolic blood pressure 2020-10-22 10:00:00 149 mm[Hg] [facility] Diastolic blood pressure 2020-10-22 10:00:00 92 mm[Hg] [facility] Heart rate 2020-10-22 10:00:00 89 [facility] Body temperature 2020-10-22 10:00:00 36.78 Yamila [facility] Respiratory rate 2020-10-22 10:00:00 16 /min [facility] Oxygen saturation in Arterial blood by Pulse oximetry 2020-10-22 10:00:00 97 /min [facility] Body weight 2020-10-22 07:03:[address] [facility] BMI 2020-10-22 07:03:00 25.82 kg/m2 Univ [facility] Systolic blood pressure 2020-10-22 10:00:00 149 mm[Hg] [facility] Diastolic blood pressure 2020-10-22 10:00:00 92 mm[Hg] [facility] Heart rate 2020-10-22 10:00:00 89 /min [facility] Body temperature 2020-10-22 10:00:00 36.78 Yamila [facility] Respiratory rate 2020-10-22 10:00:00 16 /min [facility] Oxygen saturation in Arterial blood by Pulse oximetry 2020-10-22 10:00:00 97 /min [facility] Body weight 2020-10-22 07:03:[address] [facility] BMI 2020-10-22 07:03:00 25.82 kg/m2 [facility] Systolic blood pressure 2020-10-20 04:55:00 181 mm[Hg] [facility] Diastolic blood pressure 2020-10-20 04:55:00 109 mm[Hg] [facility] Heart rate 2020-10-20 04:55:00 126 /min Un[facility] Body temperature 2020-10-20 04:55:00 36.72 Yamila [facility] Respiratory rate 2020-10-20 04:55:00 17 /min [facility] Body weight 2020-10-20 04:55:[address] [facility] BMI 2020-10-20 04:55:00 25.83 kg/m2 [facility] Oxygen saturation in Arterial blood by Pulse oximetry 2020-10-20 04:55:00 97 /min [facility] Systolic blood pressure 2020-10-20 04:55:00 181 mm[Hg] [facility] Diastolic blood pressure 2020-10-20 04:55:00 109 mm[Hg] [facility] Heart rate 2020-10-20 04:55:00 126 /[facility] Body temperature 2020-10-20 04:55:00 36.72 Yamlia [facility] Respiratory rate 2020-10-20 04:55:00 17 /min [facility] Body weight 2020-10-20 04:55:[address] [facility] BMI 2020-10-20 04:55:00 25.83 kg/m2 [facility] Oxygen saturation in Arterial blood by Pulse oximetry 2020-10-20 04:55:00 97 /min [facility] Systolic blood pressure 2020-10-15 20:07:00 124 mm[Hg] [facility] Diastolic blood pressure 2020-10-15 20:07:00 72 mm[Hg] [facility] Heart rate 2020-10-15 20:07:00 97 /min [facility] Body temperature 2020-10-15 20:07:00 36.83 Yamila [facility] Respiratory rate 2020-10-15 20:07:00 17 /min [facility] Oxygen saturation in Arterial blood by Pulse oximetry 2020-10-15 20:07:00 96 /min [facility] Body weight 2020-10-15 12:34:[address] [facility] BMI 2020-10-15 12:34:00 24.21 kg/m2 [facility] Systolic blood pressure 2020-10-15 20:07:00 124 mm[Hg] [facility] Diastolic blood pressure 2020-10-15 20:07:00 72 mm[Hg] [facility] Heart rate 2020-10-15 20:07:00 97 /min [facility] Body temperature 2020-10-15 20:07:00 36.83 Yamila [facility] Respiratory rate 2020-10-15 20:07:00 17 /min [facility] Oxygen saturation in Arterial blood by Pulse oximetry 2020-10-15 20:07:00 96 /min [facility] Body weight 2020-10-15 12:34:[address] [facility] BMI 2020-10-15 12:34:00 24.21 kg/m2 [facility] Systolic blood pressure 2020-10-13 15:00:00 145 mm[Hg] [facility] Diastolic blood pressure 2020-10-13 15:00:00 102 mm[Hg] [facility] Heart rate 2020-10-13 15:00:00 115 /min [facility] Respiratory rate 2020-10-13 15:00:00 22 /min [facility] Oxygen saturation in Arterial blood by Pulse oximetry 2020-10-13 15:00:00 100 /min [facility] Body temperature 2020-10-13 09:40:00 37 Yamila [facility] Body weight 2020-10-13 09:40:[address] [facility] BMI 2020-10-13 09:40:00 24.21 kg/m2 [facility] Systolic blood pressure 2020-10-13 15:00:00 145 mm[Hg] [facility] Diastolic blood pressure 2020-10-13 15:00:00 102 mm[Hg] [facility] Heart rate 2020-10-13 15:00:00 115 /min [facility] Respiratory rate 2020-10-13 15:00:00 22 /min [facility] Oxygen saturation in Arterial blood by Pulse oximetry 2020-10-13 15:00:00 100 /min [facility] Body temperature 2020-10-13 09:40:00 37 Yamila [facility] Body weight 2020-10-13 09:40:00 68.04 kg Univ [facility] BMI 2020-10-13 09:40:00 24.21 kg/m2 [facility] Systolic blood pressure 2020-09-17 03:41:00 147 mm[Hg] [facility] Diastolic blood pressure 2020-09-17 03:41:00 98 mm[Hg] [facility] Heart rate 2020-09-17 03:41:00 92 /min [facility] Respiratory rate 2020-09-17 03:41:00 22 /min [facility] Oxygen saturation in Arterial blood by Pulse oximetry 2020-09-17 03:41:00 100 /min [facility] Body temperature 2020-09-17 02:45:00 37.17 Yamila [facility] Body height 2020-09-17 02:45:00 167.6 cm Univ [facility] Body weight 2020-09-17 02:45:[address] [facility] BMI 2020-09-17 02:45:00 23.40 kg/m2 [facility] Systolic blood pressure 2020-09-17 03:41:00 147 mm[Hg] [facility] Diastolic blood pressure 2020-09-17 03:41:00 98 mm[Hg] [facility] Heart rate 2020-09-17 03:41:00 92 /min [facility] Respiratory rate 2020-09-17 03:41:00 22 /min [facility] Oxygen saturation in Arterial blood by Pulse oximetry 2020-09-17 03:41:00 100 /min [facility] Body temperature 2020-09-17 02:45:00 37.17 Yamila [facility] Body height 2020-09-17 02:45:[address] [facility] Body weight 2020-09-17 02:45:[address] [facility] BMI 2020-09-17 02:45:00 23.40 kg/m2 [facility] Systolic blood pressure 2020-09-06 11:02:00 146 mm[Hg] [facility] Diastolic blood pressure 2020-09-06 11:02:00 93 mm[Hg] [facility] Heart rate 2020-09-06 11:02:00 97 /[facility] Respiratory rate 2020-09-06 11:02:00 21 /min [facility] Oxygen saturation in Arterial blood by Pulse oximetry 2020-09-06 11:02:00 99 /min [facility] Body temperature 2020-09-06 10:31:00 36.17 Yamila [facility] Body height 2020-09-06 09:39:[address] [facility] Body weight 2020-09-06 09:39:[address] [facility] BMI 2020-09-06 09:39:00 24.21 kg/m2 [facility] Systolic blood pressure 2020-09-06 11:02:00 146 mm[Hg] [facility] Diastolic blood pressure 2020-09-06 11:02:00 93 mm[Hg] [facility] Heart rate 2020-09-06 11:02:00 97 /min [facility] Respiratory rate 2020-09-06 11:02:00 21 /min [facility] Oxygen saturation in Arterial blood by Pulse oximetry 2020-09-06 11:02:00 99 /min [facility] Body temperature 2020-09-06 10:31:00 36.17 Yamila [facility] Body height 2020-09-06 09:39:[address] [facility] Body weight 2020-09-06 09:39:[address] [facility] BMI 2020-09-06 09:39:00 24.21 kg/m2 [facility] Systolic blood pressure 2020-09-02 03:00:00 171 mm[Hg] [facility] Diastolic blood pressure 2020-09-02 03:00:00 102 mm[Hg] [facility] [facility] Heart [facility] 2020-09-02 03:00:00 100 /[facility] Body temperature 2020-09-02 03:00:00 36 Yamila [facility] Respiratory rate 2020-09-02 03:00:00 17 /min [facility] Oxygen saturation in Arterial blood by Pulse oximetry 2020-09-02 03:00:00 98 /min [facility] Body weight 2020-09-01 23:02:[address] [facility] BMI 2020-09-01 23:02:00 23.40 kg/m2 [facility] Systolic blood pressure 2020-09-02 03:00:00 171 mm[Hg] [facility] Diastolic blood pressure 2020-09-02 03:00:00 102 mm[Hg] [facility] Heart rate 2020-09-02 03:00:00 100 /min [facility] Body temperature 2020-09-02 03:00:00 36 Yamila [facility] Respiratory rate 2020-09-02 03:00:00 17 /min [facility] Oxygen saturation in Arterial blood by Pulse oximetry 2020-09-02 03:00:00 98 /min [facility] Body weight 2020-09-01 23:02:[address] [facility] BMI 2020-09-01 23:02:00 23.40 kg/m2 [facility] Systolic blood pressure 2020-04-14 13:08:00 143 mm[Hg] [facility] Diastolic blood pressure 2020-04-14 13:08:00 90 mm[Hg] [facility] Heart rate 2020-04-14 13:08:00 84 /min [facility] Body temperature 2020-04-14 13:08:00 36.28 Yamila [facility] Respiratory rate 2020-04-14 13:08:00 16 /min [facility] Oxygen saturation in Arterial blood by Pulse oximetry 2020-04-14 13:08:00 99 /min [facility] Body weight 2020-04-11 11:56:[address] [facility] BMI 2020-04-11 11:56:00 22.60 kg/m2 [facility] Body height 2020-04-11 11:55:[address] [facility] Systolic blood pressure 2020-04-11 05:30:00 148 mm[Hg] [facility] Diastolic blood pressure 2020-04-11 05:30:00 88 mm[Hg] [facility] Heart rate 2020-04-11 05:30:00 89 /min [facility] Respiratory rate 2020-04-11 05:30:00 26 /min [facility] Oxygen saturation in Arterial blood by Pulse oximetry 2020-04-11 05:30:00 100 /min [facility] Body temperature 2020-04-11 04:03:00 37.17 Yamila [facility] Body weight 2020-04-11 04:03:[address] [facility] BMI 2020-04-11 04:03:00 22.60 kg/m2 [facility] Systolic blood pressure 2020-04-11 02:59:52 126 mm[Hg] [facility] Diastolic blood pressure 2020-04-11 02:59:52 94 mm[Hg] [facility] Heart rate 2020-04-11 02:59:52 104 /min [facility] Body temperature 2020-04-11 02:59:52 36.56 Yamila [facility] Respiratory rate 2020-04-11 02:59:52 19 /min [facility] Oxygen saturation in Arterial blood by Pulse oximetry 2020-04-11 02:59:52 98 /min [facility] Body weight 2020-04-11 01:37:[address] [facility] BMI 2020-04-11 01:37:00 22.60 kg/m2 [facility] Systolic blood pressure 2020-04-10 04:53:11 150 mm[Hg] [facility] Diastolic blood pressure 2020-04-10 04:53:11 101 mm[Hg] [facility] Heart rate 2020-04-10 04:53:11 121 /min [facility] Respiratory rate 2020-04-10 04:53:11 16 /min [facility] Oxygen saturation in Arterial blood by Pulse oximetry 2020-04-10 04:53:11 99 /min [facility] Body temperature 2020-04-10 04:00:00 36.44 Yamila [facility] Body weight 2020-04-10 04:00:[address] [facility] BMI 2020-04-10 04:00:00 24.21 kg/m2 [facility] Systolic blood pressure 2020-02-25 18:30:00 164 mm[Hg] [facility] Diastolic blood pressure 2020-02-25 18:30:00 112 mm[Hg] [facility] Heart rate 2020-02-25 18:30:00 107 /min [facility] Respiratory rate 2020-02-25 18:30:00 23 /min [facility] Oxygen saturation in Arterial blood by Pulse oximetry 2020-02-25 18:30:00 98 /min [facility] Body temperature 2020-02-25 18:20:00 36.89 Yamila [facility] Body height 2020-02-25 18:20:[address] [facility] Body weight 2020-02-25 18:20:[address] [facility] BMI 2020-02-25 18:20:00 24.21 kg/m2 [facility] Systolic blood pressure 2019-07-13 03:12:00 125 mm[Hg] [facility] Diastolic blood pressure 2019-07-13 03:12:00 81 mm[Hg] [facility] Heart rate 2019-07-13 03:12:00 75 /min [facility] Body temperature 2019-07-13 03:12:00 36.72 Yamila [facility] Respiratory rate 2019-07-13 03:12:00 18 /min [facility] Oxygen saturation in Arterial blood by Pulse oximetry 2019-07-13 03:12:00 99 /min [facility] Body weight 2019-07-12 21:01:[address] [facility] BMI 2019-07-12 21:01:00 25.82 kg/m2 [facility] Body Temperature 2024-03-18 01:01:00 98.3 [degF] [facility] (LUF/AMEYA/[facility]) Heart Rate 2024-03-18 01:01:00 114 /min [facility] ([facility] Respiratory Rate 2024-03-18 01:01:00 16 /min [facility] (LUF/AMEYA/SA) O2% BldC Oximetry 2024-03-18 01:01:00 99 % [facility] (LUF/AMEYA/SA) BP Systolic 2024-03-18 01:01:00 170 mm[Hg] [facility] (LUF/AMEYA/SA) BP Diastolic 2024-03-18 01:01:00 94 mm[Hg] [facility] (LUF/AMEYA/SA) Height 2024-03-18 01:01:00 66 [in_i] [facility] (LUF/AMEYA/SA) Weight 2024-03-18 01:01:00 197 [lb_av] [facility] (LUF/AMEYA/SA) BMI (Body Mass Index) 2024-03-18 01:01:00 32 kg/m2 [facility] (LUF/AMEYA/SA) Body Temperature 2023-11-02 08:36:00 97 [degF] [facility] (LUF/AMEYA/SA) Heart Rate 2023-11-02 08:36:00 87 /min [facility] (LUF/AMEYA/SA) Respiratory Rate 2023-11-02 08:36:00 16 /min [facility] (LUF/AMEYA/SA) O2% BldC Oximetry 2023-11-02 08:36:00 97 % [facility] (LUF/AMEYA/SA) BP Systolic 2023-11-02 08:36:00 110 mm[Hg] [facility] (LUF/AMEYA/SA) BP Diastolic 2023-11-02 08:36:00 57 mm[Hg] [facility] (LUF/AMEYA/SA) Weight 2023-11-02 00:15:00 91 kg [facility] (LUF/AMEYA/SA) Body Temperature 2023-11-01 08:39:00 98 [degF] [facility] (LUF/AMEYA/SA) Heart Rate 2023-11-01 08:39:00 83 /min [facility] S [facility] (LUF/AMEYA/SA) Pulse Rate 2023-11-01 08:39:00 83 /min [facility] (LUF/AMEYA/SA) Respiratory Rate 2023-11-01 08:39:00 20 /min [facility] (LUF/AMEYA/SA) O2% BldC Oximetry 2023-11-01 08:39:00 92 % [facility] (LUF/AMEYA/SA) BP Systolic 2023-11-01 08:39:00 136 mm[Hg] [facility] (LUF/AMEYA/SA) BP Diastolic 2023-11-01 08:39:00 87 mm[Hg] [facility] (LUF/AMEYA/SA) Height 2023-11-01 02:16:00 66 [in_i] [facility] (LUF/AMEYA/SA) Weight 2023-11-01 02:16:00 94.5 kg [facility] (LUF/AMEYA/SA) BMI (Body Mass Index) 2023-11-01 02:16:00 33.8 kg/m2 [facility] (LUF/AMEYA/SA) BP Systolic 2023-08-04 09:07:00 97 mm[Hg] [facility] (LUF/AMEYA/SA) BP Diastolic 2023-08-04 09:07:00 63 mm[Hg] [facility] (LUF/AMEYA/SA) Body Temperature 2023-08-04 07:34:00 97.2 [degF] [facility] (LUF/AMEYA/SA) Pulse Rate 2023-08-04 07:34:00 82 /min [facility] (LUF/AMEYA/SA) Respiratory Rate 2023-08-04 07:34:00 16 /min [facility] (LUF/AMEYA/SA) O2% BldC Oximetry 2023-08-04 07:34:00 97 % [facility] (LUF/AMEYA/SA) Weight 2023-08-04 04:59:00 94 kg [facility] (LUF/AMEYA/SA) Heart Rate 2023-08-01 11:01:00 94 /min [facility] (LUF/AMEYA/SA) Height 2023-08-01 01:50:00 66 [in_i] [facility] (LUF/AMEYA/SA) Procedures Procedure Date / Time Performed Performing Clinician Source EKG-12 LEAD 2024-04-15 13:12:[address] [facility] XR CHEST 2 VW 2024-04-15 11:46:11 Arnold Coughlin [facility] TROPONIN I 2024-04-15 11:20:[address] [facility] COMP. METABOLIC PANEL (80272) 2024-04-15 11:20:00 Arnold Coughlin [facility] CBC WITH DIFF 2024-04-15 11:20:00 [facility]24-[facility]-15 11:20:[address] [facility] INFLUENZA A/B RSV COVID NAAT 2024-04-15 11:20:00 Arnold Coughlin [facility] INSPECT UPPER INTESTINE TRACT ENDO 2023-08-03 00:00:00 [facility] ([facility]) Catheterization of left heart 2023-08-01 13:30:00 [facility] ([facility]) MEASUR CARD SAMPL PRESS LT HEART PC 2023-08-01 00:00:00 [facility] ([facility]YA/[facility]) FLUORO MX COR ART LOW OSMOLAR CONT 2023-08-01 00:00:00 [facility] ([facility]) FLUORO LT HEART LOW OSMOLAR CONTRST 2023-08-01 00:00:00 [facility] ([facility]) INTRO OTH ANTI-INFEC PERIPH VN PERQ 2023-08-01 00:00:00 [facility] ([facility]YA/[facility]) MEASURE ARTERIAL SATURAT PERIPH PC 2023-08-01 00:00:00 [facility] (LUF/AMEYA/SA) AUTHORIZATION FOR RELEASE OF PHI 2022-12-08 05:01:00 Doctor Unassigned, Hachita [facility] NOTICE OF PRIVACY PRACTICES 2022-10-18 05:02:51 Doctor Unassigned, Hachita [facility] CONSENT/REFUSAL FOR DIAGNOSIS AND TREATMENT 2022-10-18 05:02:24 Doctor Unassigned, Hachita [facility] XR CHEST 1 VW 2021-09-22 01:58:50 Georgia Estrada [facility] MAGNESIUM 2021-09-22 01:43:00 Georgia Estradaaracelis [facility] TROPONIN I 2021-09-22 01:43[facility] METABOLIC PANEL ([id number]) 2021-09-22 01:43:00 Georgia Estrada [facility] POCT TEST 2021-09-22 01:43:00 Georgia Estrada [facility] N-TERMINAL PRO-BNP 2021-09-22 01:43:00 Georgia Estrada [facility] CBC WITH DIFF 2021-09-22 01:42:[address] [facility] URINALYSIS 2021-09-22 01:42:00 [facility] NOTICE OF PRIVACY PRACTICES 2021-09-22 01:07:45 Doctor Unassigned, Hachita [facility] CONSENT/REFUSAL FOR DIAGNOSIS AND TREATMENT 2021-09-22 01:06:43 Doctor Unassigned, Hachita [facility] CT CHEST PULMONARY ANGIOGRAM 2021-03-25 11:45:06 Arnold Coughlin [facility] TROPONIN I 2021-03-25 11:31:00 Arnold Coughlin [facility] D-DIMER 2021-03-25 10:22:[address] [facility] LIPASE 2021-03-25 09:35:00 [facility] 2021-03-25 09:35:00 Arnold Coughlin [facility] COMP. METABOLIC PANEL ([id number]) 2021-03-25 09:35:00 Arnold Coughlin [facility] CBC WITH DIFF 2021-03-25 09:35:00 Arnold Coughlin [facility] HB ECG ROUTINE & RHYTHM STRIP 2021-03-25 08:52:04 Arnold Coughlin [facility] ACTIVATED PARTIAL THRMPLAS CHER 2020-11-23 10:36:00 Tim Amaya [facility] MAGNESIUM 2020-11-23 05:05:00 Subah, [facility] BASIC METABOLIC PANEL (NA, K, CL, CO2, GLUCOSE, BUN, CREATININE, CA) 2020-11-23 05:05:00 [facility] CBC WITH DIFF 2020-11-23 05:05:[address] [facility] ACTIVATED PARTIAL THRMPLAS CHER 2020-11-23 05:05:00 [facility] CT ANGIOGRAM CHEST 2020-11-22 20:21:07 [facility] POCT TEST 2020-11-22 19:43:00 Rosmery Mai [facility] TROPONIN I 2020-11-22 19:38:00 [facility] FREE T4 2020-11-22 19:38:00 [facility] THYROID STIMULATING HORMONE 2020-11-22 19:38:00 [facility] LIPID PANEL ([id number])(TOTAL CHOLESTEROL, TRIGLYCERIDES, HDL) 2020-11-22 19:38:00 [facility] COVID-19 (ID NOW RAPID TESTING) 2020-11-22 19:18:00 Carmen Lott [facility] TROPONIN I 2020-11-22 14:45:00 Rosmery Mai [facility] XR CHEST 1 VW 2020-11-22 12:41:09 Miguelito Salter [facility] URINE DRUG (IMMUNOASSAY) - COMPREHENSIVE DRUG SCREEN 2020-11-22 11:53:00 Miguelito Salter [facility] URINALYSIS 2020-11-22 11:53:00 Miguelito Salter [facility] CK (CREATINE KINASE) + MB 2020-11-22 11:52:00 Juan Salter [facility] LIPASE 2020-11-22 11:52:00 Miguelito Salter [facility] TROPONIN I 2020-11-22 11:52:00 Miguelito Salter [facility] COMP. METABOLIC PANEL ([id number]) 2020-11-22 11:52:00 Miguelito Salter [facility] ETHANOL 2020-11-22 11:52:00 Miguelito Salter [facility] SERUM DRUG (IMMUNOASSAY) - COMPREHENSIVE DRUG SCREEN 2020-11-22 11:52:00 Miguelito Salter [facility] CBC WITH DIFF 2020-11-22 11:52:00 Miguelito Salter [facility] GLYCOSYLATED HEMOGLOBIN (A1C) 2020-11-22 11:52:00 Tim Amaya [facility] D-DIMER 2020-11-22 11:52:00 Miguelito Salter [facility] POCT TEST 2020-10-22 10:12:00 Chaka Steinberg [facility] URINE DRUG (IMMUNOASSAY) - COMPREHENSIVE DRUG SCREEN 2020-10-22 10:10:00 Chaka Steinberg [facility] URINALYSIS 2020-10-22 10:10:00 Chaka Steinberg [facility] TROPONIN I 2020-10-22 09:34:00 Chaka Steinberg [facility] CT ABDOMEN PELVIS W CONTRAST 2020-10-22 08:02:55 Chaka Steinberg [facility] XR CHEST 1 VW 2020-10-22 07:40:59 Chaka Steinberg [facility] COVID-19 (ID NOW RAPID TESTING) 2020-10-22 07:38:00 Chaka Steinberg [facility] LIPASE 2020-10-22 07:37:00 Chaka Steinberg [facility] TROPONIN I 2020-10-22 07:37:00 Chaka Steinberg [facility] HEPATIC FUNCTION PANEL ([id number]) (ALB,T.PRO,BILI T,BU/BC,ALT,AST,ALK PHOS) 2020-10-22 07:37:00 Chaka Steinberg [facility] BASIC METABOLIC PANEL (NA, K, CL, CO2, GLUCOSE, BUN, CREATININE, CA) 2020-10-22 07:37:00 Chaka Steinberg [facility] ETHANOL 2020-10-22 07:37:00 Chaka Steinberg [facility] CBC WITH DIFF 2020-10-22 07:37:00 Chaka Steinberg [facility] CREATINE KINASE 2020-10-15 14:58:00 Sergei, Rosmery Buenrostro [facility] LIPASE 2020-10-15 14:58:00 [facility] TEST, SERUM 2020-10-15 14:58:00 Sergei, Janel ross [facility] TROPONIN I 2020-10-15 14:58:00 [facility]i [facility] HEPATIC FUNCTION PANEL ([id number]) (ALB,T.PRO,BILI T,BU/BC,ALT,AST,ALK PHOS) 2020-10-15 14:58:00 [facility] BASIC METABOLIC PANEL (NA, K, CL, CO2, GLUCOSE, BUN, CREATININE, CA) 2020-10-15 14:58:00 Sergei, [facility] N-TERMINAL PRO-BNP 2020-10-15 14:58:00 Sergei, [facility] XR CHEST 2 VW 2020-10-15 13:47:20 Sergei [facility] CT HEAD WO CONTRAST 2020-10-15 13:37:33 SergeiRosmery chambers [facility] CREATINE KINASE 2020-10-15 13:27:00 SergeiRosmery chambers [facility] LIPASE 2020-10-15 13:27:00 Sergei, [facility] TROPONIN I 2020-10-15 13:27:00 Sergei [facility] N-TERMINAL PRO-BNP 2020-10-15 13:27:00 [facility] POCT TEST 2020-10-13 11:13:00 Gage Torres [facility] COMP. METABOLIC PANEL ([id number]) 2020-10-13 11:06:00 Gage Torres [facility] EXTRA TUBE ORANGE 2020-10-13 11:06:00 Gage Torres [facility] EXTRA TUBE LT. GREEN 2020-10-13 11:06:00 Germain Torres [facility] URINE DRUG (IMMUNOASSAY) - COMPREHENSIVE DRUG SCREEN 2020-10-13 11:01:00 Gage Torres [facility] URINALYSIS 2020-10-13 11:01:[address] [facility] CBC WITH DIFF 2020-10-13 10:41:00 Gage Torres [facility] XR CHEST 1 VW 2020-10-13 10:40:00 Gage Torres [facility] PROTHROMBIN TIME / INR 2020-10-13 10:26:00 Shay Torres [facility] D-DIMER 2020-10-13 10:26:[address] [facility] ACTIVATED PARTIAL THRMPLAS CHER 2020-10-13 10:26:00 Gage Torres [facility] LIPASE 2020-10-13 10:09:[address] [facility] TROPONIN I 2020-10-13 10:09:[address] [facility] THYROID STIMULATING HORMONE 2020-10-13 10:09:00 Gage Torres [facility] ETHANOL 2020-10-13 10:09:[address] [facility] EXTRA TUBE ORANGE 2020-10-13 10:09:00 Gage Torres [facility] EXTRA TUBE LT. GREEN 2020-10-13 10:09:00 Germain Torres [facility] COVID-19 (ID NOW RAPID TESTING) 2020-10-13 10:06:00 Gage Torres [facility] LIPASE 2020-09-17 03:02:00 Hoang Thomas [facility] TEST, SERUM 2020-09-17 03:02:00 Leonel Thomas se [facility] HEPATIC FUNCTION PANEL ([id number]) (ALB,T.PRO,BILI T,BU/BC,ALT,AST,ALK PHOS) 2020-09-17 03:02:00 Hoang Thomas [facility] BASIC METABOLIC PANEL (NA, K, CL, CO2, GLUCOSE, BUN, CREATININE, CA) 2020-09-17 03:02:00 Hoang Thomas [facility] CBC WITH DIFF 2020-09-17 03:02:00 Hoang Thomas [facility] CT ABDOMEN PELVIS W CONTRAST 2020-09-06 11:31:59 Arnold Coughlin [facility] XR CHEST 1 VW 2020-09-06 10:03:21 Arnold Coughlin [facility] CBC WITH DIFF 2020-09-06 09:58:00 Arnold Coughlin [facility] LIPASE 2020-09-06 09:57:00 Arnold Coughlin [facility] TROPONIN I 2020-09-06 09:57:00 Arnold Coughlin [facility] COMP. METABOLIC PANEL ([id number]) 2020-09-06 09:57:00 Arnold Coughlin [facility] N-TERMINAL PRO-BNP 2020-09-06 09:57:00 Arnold Coughlin [facility] D-DIMER 2020-09-02 02:24:00 Ana Sommers [facility] COVID-19 (ID NOW RAPID TESTING) 2020-09-02 00:10:00 Ana Sommers [facility] LIPASE 2020-09-02 00:07:00 Matthieu [facility] TROPONIN I 2020-09-02 00:07:00 Matthieu Ana [facility] THYROID STIMULATING HORMONE 2020-09-02 00:07:00 Ana Sommers [facility] HEPATIC FUNCTION PANEL ([id number]) (ALB,T.PRO,BILI T,BU/BC,ALT,AST,ALK PHOS) 2020-09-02 00:07:00 Ana Sommers [facility] BASIC METABOLIC PANEL (NA, K, CL, CO2, GLUCOSE, BUN, CREATININE, CA) 2020-09-02 00:07:00 Ana Sommers [facility] CBC WITH DIFF 2020-09-02 00:07:00 Ana Sommers [facility] N-TERMINAL PRO-BNP 2020-09-02 00:07:00 Ana Sommers [facility] XR CHEST 1 VW 2020-09-02 00:02:14 Ana Sommers [facility] NOTICE OF PRIVACY PRACTICES 2020-09-01 22:34:26 Doctor Unassigned, Hachita [facility] CONSENT/REFUSAL FOR DIAGNOSIS AND TREATMENT 2020-09-01 22:34:08 Doctor Unassigned, Hachita [facility] BASIC METABOLIC PANEL (NA, K, CL, CO2, GLUCOSE, BUN, CREATININE, CA) 2020-04-12 10:18:00 Buddy Montes [facility] CBC WITH DIFF 2020-04-12 10:18:00 Shabana Montes [facility] XR FOREARM 2 VW LEFT 2020-04-11 17:54:00 Anabel lee [facility] XR HAND 3+ VW LEFT 2020-04-11 17:54:00 Roxy gaona [facility] XR WRIST 3+ VW LEFT 2020-04-11 17:54:00 Mariah oliva [facility] XR ANKLE 3+ VW LEFT 2020-04-11 12:47:35 Mike Garay [facility] XR FOOT 3+ VW LEFT 2020-04-11 12:47:35 Cesar Garay [facility] XR TIBIA FIBULA 2 VW LEFT 2020-04-11 12:47:35 Francisca vela [facility] CT TRAUMA HEAD WO CONTRAST 2020-04-11 12:41:26 Marino ndiaye [facility] CT TRAUMA THORAX W CONTRAST 2020-04-11 12:41:26 Tanisha [facility] CT TRAUMA CERVICAL SPINE WO CONTRAST 2020-04-11 12:41:26 Tanisha [facility] CT TRAUMA THORACIC SPINE WO CONTRAST 2020-04-11 12:41:26 Tanisha [facility] CT TRAUMA ABDOMEN PELVIS W CONTRAST 2020-04-11 12:41:26 Tanisha [facility] CT TRAUMA LUMBAR SPINE WO CONTRAST 2020-04-11 12:41:26 Tanisha [facility] HB ABO GROUPING 2020-04-11 12:20:00 Chu Grace [facility] BASIC METABOLIC PANEL (NA, K, CL, CO2, GLUCOSE, BUN, CREATININE, CA) 2020-04-11 12:17:00 John Grace [facility] CBC WITHOUT DIFF 2020-04-11 12:17:00 Sanjay Ca rlos [facility] PROTHROMBIN TIME / INR 2020-04-11 12:17:00 John Vanegas Javier [facility] ACTIVATED PARTIAL THRMPLAS CHER 2020-04-11 12:17:00 John Grace [facility] EKG-12 LEAD 2020-04-11 04:23:07 Gage Torres [facility] TROPONIN I 2020-04-11 01:53:00 Opal Bonds [facility] EKG-12 LEAD 2020-04-11 01:46:16 Opal Bonds [facility] ADC / LCC - DRUG SCREEN TRIAGE 2020-04-10 05:19:00 Wiley Gay [facility] XR CHEST 1 VW 2020-04-10 04:26:[address] [facility] COVID-19 (ID NOW RAPID TESTING) 2020-04-10 04:15:00 Singer Wiley [facility] D-DIMER 2020-04-10 04:14:00 Wiley Gay [facility] LIPASE 2020-04-10 04:11:00 Wiley Gay [facility] MAGNESIUM 2020-04-10 04:11:00 Wiley Gay [facility] TROPONIN I 2020-04-10 04:11:00 [facility] COMP. METABOLIC PANEL ([id number]) 2020-04-10 04:11:00 Wiley Gay [facility] CBC WITH DIFF 2020-04-10 04:11:00 Singer [facility] N-TERMINAL PRO-BNP 2020-04-10 04:11:00 Singer [facility] EKG-12 LEAD 2020-04-10 03:55:43 Singer [facility] NOTICE OF PRIVACY PRACTICES 2020-04-10 03:51:52 Doctor Unassigned, Hachita [facility] CONSENT/REFUSAL FOR DIAGNOSIS AND TREATMENT 2020-04-10 03:51:01 Doctor Unassigned, Hachita [facility] COMP. METABOLIC PANEL ([id number]) 2020-02-25 18:39:00 Georgia Estrada [facility] CBC WITH DIFF 2020-02-25 18:39:[address] [facility] EKG-12 LEAD 2020-02-25 18:27:17 Georgia Estrada [facility] CT ABDOMEN PELVIS W CONTRAST 2019-07-13 00:47:46 Diego Shelby [facility] POCT TEST 2019-07-13 00:29:00 Diego Shelby [facility] LIPASE 2019-07-12 23:07:[address] [facility] COMP. METABOLIC PANEL ([id number]) 2019-07-12 23:07:00 Diego Shelby [facility] CBC WITH DIFFERENTIAL 2019-07-12 23:07:00 Turner Shelby [facility] URINALYSIS 2019-07-12 23:07:[address] [facility] XR CHEST 1 VW 2019-03-06 16:21:04 Andressa Christianson [facility] Encounters Start Date/Time End Date/Time Encounter Type Admission Type Attending [facility] Care Facility Care Department Encounter ID Source 2022-11-18 10:07:21 Outpatient JAKE GARIBAY [id number] [facility] [id number] [facility] 20:48:43 Outpatient AVANI VARMA [id number] [facility] 2021 20:48:43 Outpatient AVANI VARMA [id number] [facility] 2024-04-15 06:07:00 2024-04-15 08:16:00 Emergency X MELANIE WARREN [facility] E[facility] [id number] [facility] 2024-04-15 06:07:00 2024-04-15 08:16:00 Emergency Melanie Warren [facility] [id number] [facility] 2024-03-18 00:58:00 2024-03-18 01:20:00 ANXIETY DISORDER UNSPECIFIE D 1 ALTA MAGALLANES [facility] EMD [id number] [facility] (LUF[facility] V/SA) 2024-03-18 00:00:00 2024-03-18 00:00:[address] [address] [facility] [id number] [facility] (LUF/LI V/SA) 2024-03-12 05:30:00 2024-03-12 09:40:00 Emergency 1 MARIAH CHO MATTHEW [facility] EMD [id number] [facility] (LUF/LI V/SA) 2024-01-02 15:30:00 2024-01-02 15:30:00 [facility] 3 [facility] [id number] [facility]LI V/SA[facility] 2023-11-29 15:30:00 2023-11-29 15:30:00 Outpatient 3 GENA TURNER ILYAS [facility] HIET [id number] [facility] (LUF/LI V/SA) 2023-11-24 14:00:00 2023-11-24 14:00:00 Outpatient 3 GENA UTRNER ILYAS [facility] HIET [id number] [facility] (LUF/LI V/SA) 2023-11-01 10:01:00 2023-11-02 10:00:00 Outpatient 2 KELVINKIMMERRITTMERRITT CLINTON [facility] OBT [id number] [facility] (LUF/LI V/SA) 2023-11-01 01:53:00 2023-11-01 08:40:00 Emergency 1 [facility] [id number] [facility] (LUF/LI V/SA) 2023-11-01 00:00:00 2023-11-01 00:00:[id number] [place] [address] [id number] [facility] (LUF/LI V/SA) 2023-11-01 00:00:00 2023-11-01 00:00:00 Inpatient [facility], [address] [place] [address] [id number] [facility] (LUF/LI V/SA) 2023-08-01 04:21:00 2023-08-04 10:20:00 SEPSIS UNSPECIFIE D ORGANISM 1 CAMI CROCKER [facility] [id number] [facility] (LUF/LI V/SA) 2023-08-01 00:00:00 2023-08-01 00:00:00 Inpatient [facility], [address] [place], [place] [id number] [facility] [id number] [facility] (LUF/LI V/SA) 2023-08-01 00:00:00 2023-08-01 00:00:00 Inpatient [facility], [facility][note 3][address] [place] [address] [facility] [id number] [facility] (LUF/LI V/SA) 2023-08-01 00:00:00 2023-08-01 00:00:00 Inpatient [facility], [place] [address] [facility] [id number] [facility] (LUF/LI V/SA) 2022-12-08 00:00:00 2022-12-08 00:00:00 Orders Only Doctor Unassigned, Hachita [facility] 1.840.114 350.1.13.10 4.2.7.2.686 [id number] [id number] [facility] 2022-11-17 10:08:00 2022-11-17 00:00:00 Outpatient Dylan PHOENIX JAKE [id number] LUISABEAR BRANCH [facility] SHEEHAN [id number] [facility] 2022-10-18 00:18:00 2022-10-18 02:59:00 Emergency X MARIA DEL CARMEN MELGAR [facility] ERT [id number] [facility] 2022-10-18 00:18:00 2022-10-18 02:59:00 Emergency Maria Del Carmen Melgar [facility] 1.840.114 350.1.13.10 4.2.7.2.686 [id number] 084 [id number] [facility] 2022-10-18 00:00:00 2022-10-18 00:00:00 Orders Only Doctor Unassigned, Hachita [facility] 1.2840.114 350.1.13.10 4.2.7.2.686 [id number] [id number] [facility] 2021-09-21 20:28:00 2021-09-21 22:36:00 Emergency Georgia Estrada GeorgeVilla garcia [facility] 1.2840.114 350.1.13.10 4.2.7.2.686 [id number] 084 [id number] [facility] 2021-09-21 20:28:00 2021-09-21 22:36:00 Emergency X Villa WEEMS [facility] ERT [id number] [facility] 2021-03-25 03:49:00 2021-03-25 11:27:00 Emergency Arnold Coughlin [facility] 1.2840.114 350.1.13.10 4.2.7.2.686 [id number] 084 [id number] [facility] 2021-03-25 03:49:00 2021-03-25 03:49:00 Emergency X ARNOLD COUGHLIN [facility] ERT [id number] [facility] 2020-12-01 00:00:00 2020-12-01 00:00:00 Letter (Out) [facility] 1..114 350.1.13.10 4.2.7.2.686 [id number] 090 [id number] [facility] 2020-12-01 00:00:00 2020-12-01 00:00:00 Letter (Out) [facility] 1.2840.114 350.1.13.10 4.2.7.2.686 [id number] 2020-11-22 06:16:00 2020-11-23 14:46:00 Hospital Encounter Miguelito Salter Hee-Kwang [facility] 1.2.840.114 350.1.13.10 4.2.7.2.686 [id number] [id number] 2020-11-22 06:16:00 2020-11-23 14:46:00 Hospital Encounter Miguelito Salter, Adal Skinnernie [facility] 1.2.840.114 350.1.13.10 4.2.7.2.686 [id number] [facility] 2020-11-22 06:16:00 2020-11-23 14:46:00 Outpatient X ADAL KOLB [facility] [id number] [facility] 2020-10-22 02:04:00 2020-10-22 07:32:00 Emergency LelandChaka [facility] 1.2.840.114 350.1.13.10 4.2.7.2.686 [id number] 2020-10-22 02:04:00 2020-10-22 07:32:00 Emergency [facility] Chaka W [facility] 1.2.840.114 350.1.13.10 4.2.7.2.686 [id number] 014 [id number] [facility] 2020-10-22 02:04:00 2020-10-22 07:32:00 Emergency X CHAKA STEINBERG [facility] ERT [id number] [facility] 2020-10-19 23:59:00 2020-10-20 00:57:00 Emergency [facility] 1.2.840.114 350.1.13.10 4.2.7.2.686 [id number] 2020-10-19 23:59:00 2020-10-20 00:57:00 Emergency [facility] 1.2.840.114 350.1.13.10 4.2.7.2.686 [id number] [id number] [facility] 2020-10-19 23:59:00 2020-10-20 00:57:00 Emergency X UNKNOWN, ATTENDING [facility] ERT [id number] [facility] 2020-10-15 07:37:00 2020-10-15 15:30:00 Emergency Sergei [facility] 1.2.840.114 350.1.13.10 4.2.7.2.686 [id number] 014 [id number] 2020-10-15 07:37:00 2020-10-15 15:30:00 [facility] 1.2.840.114 350.1.13.10 4.2.7.2.686 [id number] [id number] [facility] 2020-10-15 07:28:00 2020-10-15 07:28:00 Emergency X [facility] ERT [id number] [facility] 2020-10-13 04:42:00 2020-10-13 11:13:00 Emergency Gage Torres Brent J Rischall, [place] [facility] 1.2840.114 350.1.13.10 4.2.7.2.686 [id number] 2020-10-13 04:42:00 2020-10-13 11:13:00 Emergency Gage Torres Brent J Rischall, [place] [facility] 1.2.840.114 350.1.13.10 4.2.7.2.686 [id number] 014 [id number] [facility] 2020-10-13 04:42:00 2020-10-13 04:42:00 Emergency X GAGE TORRES [facility] ERT [id number] [facility] 2020-09-16 21:39:00 2020-09-17 00:11:00 Emergency Hoang Thomas [facility] 1.2.840.114 350.1.13.10 4.2.7.2.686 [id number] 084 [id number] 2020-09-16 21:39:00 2020-09-17 00:11:00 Emergency Hoang Thomas [facility] 1.2.840.114 350.1.13.10 4.2.7.2.686 [id number] 084 [id number] [facility] 2020-09-16 21:39:00 2020-09-16 21:39:00 Emergency X HOANG THOMAS [facility] ERT [id number] [facility] 2020-09-12 05:03:00 2020-09-12 06:28:00 Emergency X WILEY GAY [facility] ERT [id number] [facility] 2020-09-06 04:37:00 2020-09-06 07:13:00 Emergency Arnold Coughlin [facility] 1.2.840.114 350.1.13.10 4.2.7.2.686 [id number] [id number] 2020-09-06 04:37:00 2020-09-06 07:13:00 Emergency Arnold Coughlin [facility] 1.2.840.114 350.1.13.10 4.2.7.2.686 [id number] 084 [id number] [facility] 2020-09-06 04:37:00 2020-09-06 07:13:00 Emergency X ARNOLD COUGHLIN [facility] ERT [id number] [facility] 2020-09-01 17:06:00 2020-09-01 21:39:00 Emergency Ana Sommers [facility] 1.2.840.114 350.1.13.10 4.2.7.2.686 [id number] [id number] 2020-09-01 17:06:00 2020-09-01 21:39:00 Emergency Ana Sommers [facility] 1.2.840.114 350.1.13.10 4.2.7.2.686 [id number] 084 [id number] [facility] 2020-09-01 16:36:00 2020-09-01 16:36:00 Emergency X [facility] ERT [id number] [facility] 2020-09-01 00:00:00 2020-09-01 00:00:00 Orders Only Doctor Unassigned, Hachita [facility] 1.2.840.114 350.1.13.10 4.2.7.2.686 [id number] 2020-09-01 00:00:00 2020-09-01 00:00:00 Orders Only Doctor Unassigned, Hachita [facility] 1.2.840.114 350.1.13.10 4.2.7.2.686 [id number] [facility] 2020-04-15 00:00:00 2020-04-15 00:00:00 Transition of Care Price Rafaela Gaitaneusebio Schneider 1.2.840.114 350.1.13.10 4.2.7.2.686 [id number] 2020-04-15 00:00:00 2020-04-15 00:00:00 Transition of [facility] 1.2.840.114 350.1.13.10 4.2.7.2.686 [id number] [facility] 2020-04-11 06:55:00 2020-04-14 20:35:00 Hospital Encounter Pedrito Brewer [facility] 1.2.840.114 350.1.13.10 4.2.7.2.686 [id number] [id number] [facility] 2020-04-11 06:55:00 2020-04-11 06:55:00 Emergency T [facility] STR [id number] [facility] 2020-04-10 23:04:00 2020-04-11 01:06:00 Emergency Gage Torres [facility] 1.2.840.114 350.1.13.10 4.2.7.2.686 [id number] 014 [id number] [facility] 2020-04-10 23:04:00 2020-04-10 23:04:00 Emergency X GAGE TORRES [facility] ERT [id number] [facility] 2020-04-10 20:37:00 2020-04-10 22:02:00 Emergency Vamshi Opal FigueroaPedrito mishra [facility] 1.2840.114 350.1.13.10 4.2.7.2.686 [id number] [id number] [facility] 2020-04-10 20:37:00 2020-04-10 20:37:00 Emergency X PEDRITO ROSADO [facility] ERT [id number] [facility] 2020-04-09 22:56:00 2020-04-10 00:49:00 Emergency Wiley Gay [facility] 1.2840.114 350.1.13.10 4.2.7.2.686 [id number] 084 [id number] [facility] 2020-04-09 22:49:00 2020-04-09 22:49:00 Emergency X WILEY GAY [facility] ERT [id number] [facility] 2020-02-25 13:23:00 2020-02-25 14:09:00 Emergency Georgia Estrada [facility] 1.2840.114 350.1.13.10 4.2.7.2.686 [id number] [id number] [facility] 2020-02-25 13:23:00 2020-02-25 13:23:00 Emergency X GEORGIA ESTRADA [facility] ERT [id number] [facility] 2019-07-12 15:04:04 2019-07-12 21:14:00 Emergency Unknown, Attending Gladys Marley [facility] 1.2840.114 350.1.13.10 4.2.7.2.686 [id number] [facility] 2019-07-12 15:04:04 2019-07-12 21:14:00 Emergency X GLADYS MARLEY [facility] ERT [id number] [facility] 2019-03-06 11:16:49 2019-03-06 23:59:00 Hospital Encounter Andressa Christianson [facility] 1.2.840.114 350.1.13.10 4.2.7.2.686 [id number] [facility] Results Test Description Test Time Test Comments Results Result Co mments Source [facility] (29376)2024-04-15 12:08:47* Test Item Value Reference Range Interpretation Comme nts NA (test code = 5167215888) 138 mmol/L 135-145 K (test code = 6694728914) 3.9 mmol/L 3.5-5.0 CL (test code = 8171450488) 106 mmol/L 98-108 CO2 TOTAL (test code = 0110094304) 27 mmol/L 23-31 AGAP (test code = 8837310347) 5 2-16 BUN (test code = 3637211776) 8 mg/dL 7-23 GLUCOSE (test code = 6720788625) 101 mg/dL 70-110 CREATININE (test code = 2160-0) 0.75 mg/dL 0.50-1.04 TOTAL BILI (test code = 2396851051) 0.5 mg/dL 0.1-1.1 CALCIUM (test code = 4579936094) 8.4 mg/dL 8.6-10.6 L T PROTEIN (test code = 1266961763) 7.6 g/dL 6.3-8.2 ALBUMIN (test code = 0225916559) 3.9 g/dL 3.5-5.0 ALK PHOS (test code = 8185908299) 84 U/L 34-122 ALTv (test code = 1742-6) 20 U/L 5-35 AST(SGOT) (test code = 1166370327) 25 U/L 13-40 eGFR (test code = 31313-6) 101.5 mL/min/1.73m2 CKD-EPI eGFR (2020). Assuming creatinine has been stable day-to-day for at least three months, the eGFR indicates Category G1 (>= 90 mL/min/1.73 m2) Lab Interpretation (test code = 70383-7) Abnormal [facility] WITH [id number] 11:58:47* Test Item Value Reference Range Interpretation Comme nts WBC (test code = 6690-2) 6.64 4.30-11.10 RBC (test code = 789-8) 4.39 3.93-5.25 HGB (test code = 718-7) 11.6 g/dL 11.6-15.0 HCT (test code = 4544-3) 37.8 % 35.7-45.2 MCV (test code = 787-2) 86.1 fL 80.6-95.5 MCH (test code = 785-6) 26.4 pg 25.9-32.8 MCHC (test code = 786-4) 30.7 g/dL 31.6-35.1 L RDW-SD (test code = 51309-4) 48.2 fL 39.0-49.9 RDW-CV (test code = 788-0) 15.3 % 12.0-15.5 PLT (test code = 777-3) 383 166-358 H MPV (test code = 51332-2) 9.4 fL 9.5-12.9 L NRBC/100 WBC (test code = 4181100201) 0.0 0.0-10.0 NRBC x10^3 (test code = 4257021380) See_Comment [Automated messa ge] The system which generated this result transmitted reference range: 10*3/?L. The reference range was not used to interpret this result as normal/abnormal. GRAN MAT (NEUT) % (test code = 770-8) 64.4 % IMM GRAN % (test code = 7315784764) 0.20 % LYMPH % (test code = 736-9) 22.9 % MONO % (test code = 5905-5) 10.2 % EOS % (test code = 713-8) 1.7 % BASO % (test code = 706-2) 0.6 % GRAN MAT x10^3(ANC) (test code = 8636137620) 4.28 10*3/uL 1.88-7.09 IMM GRAN x10^3 (test code = 2284277026) 0.00-0.06 LYMPH x10^3 (test code = 731-0) 1.52 10*3/uL 1.32-3.29 MONO x10^3 (test code = 742-7) 0.68 10*3/uL 0.33-0.92 EOS x10^3 (test code = 711-2) 0.11 10*3/uL 0.03-0.39 BASO x10^3 (test code = 704-7) 0.04 10*3/uL 0.01-0.07 Lab Interpretation (test code = 71192-6) Abnormal [facility] 2 [id number] 11:54:03Examination: Chest PA and lateral Ordering Physician: SAVANNAH COUGHLIN Date: 04/15/2024 6:15 AM History: cough and chest pain Comparison: None available Findings: Frontal and lateral radiographs of the chest are submitted forreview. ? ?The lungs are clear without confluent infiltrate, pleuraleffusion or pneumothorax. ?The cardiomediastinal silhouette is withinnormal limits. ?The visualized osseous structures are grossly unremarkable.[facility] Hospital[facility], [id number] 07:28:00Specimen: Urine SpecimensCollected: 03/12/2024 07:15 Status: Final Last Updated: 03/14/2024 07:28 CULTURE (Final) (Final) No Growth After 48 HoursSTLMLURINALYSIS WITH REFLEX TO [id number] 08:11:00* Test Item Value Reference Range Interpretation Comme nts Color (test code = UCOLR) Yellow Lt. Yellow A Clarity (test code = UCLAR) Clear Glucose (test code = UGLUC) Negative Negative N Bilirubin (test code = UBILI) Negative Negative N Ketones (test code = UKET) Negative Negative N Specific [place] (test code = USPGR) 1.015 1.005-1.030 A Blood (test code = UBLD) Large Negative A PH (test code = UPH) 7.0 4.5-8.0 A Protein (test code = UPROT) Negative Negative N Urobilinogen (test code = U UROB) 0.2 E.U./dL See_Comment A [Automated messa ge] The system which generated this result transmitted reference range: 0.2. The reference range was not used to interpret this result as normal/abnormal. Nitrite (test code = UNITR) Negative Negative N Leukocyte Esterase (test code = ULEUK) Small Negative A WBC (test code = WBCUR) 21-30 NONE,0-1,2-5,6-10 A RBC (test code = RBCUR) 0-10 0-5 A Epithial Cells (test code = U EPI) TNTC 0-10 A Bacteria (test code = UBACT) 2+ NONE SEEN A Urine Casts (test code = UR CAST) None Seen NONE SEEN A Crystals Urine (test code = URCRYS) None Seen NONE SEEN A Mucous (test code = UMUC) None Seen NONE SEEN A Urine Misc (test code = UR MISC) None Seen NONE SEEN A STLMLD-DIMER [id number] 07:52:00* Test Item Value Reference Range Interpretation Comme nts D DIMER (test code = D DIM) 0.97 mg/L FEU 0.19-0.50 H METHOD CHANGE: Due to the discontinued mehodology currently in use, a change in the testing method is necessary. The Reference Ranges will change dramatically, and results are obtained by the observance of clotting activation mesured on the [employer] instruments. This same methodology is currently in use for PT/INR , PTT, AND HEPARIN testing in our Labs. The D-Dimer assay is an aid in the evaluation of thromboembolic events, as in DIC, DVT, Pulmonary Embolism, and other thromboembolic diseases, and should not be used without other diagnostic measures, to properly diagnose and treat thromboembolic disease. REFERENCE RANGE: 0.19 - 0.50 mg/L FEU (Fibrinogen Equivalent Units) Cut-Off Value is: > .50 mg/L FEU Note: Results greater than (>) the Cut-Off are to be considered POSITIVE, and significant in the evaluation of thromboembolic diseases. Results less than (<) the Cut-Off are to be considered NEGATIVE, and a low probability of thromboembolic disease. STLMLPREGNANCY TEST, Urine [id number] 07:36:00* Test Item Value Reference Range Interpretation Comme nts (Urine) (test code = PREGU) Negative If a specimen is collected by a nurse, then you MUST fill out the Collected and Collected By hilario STLMLDRUG SCREEN [id number] 07:35:00 * Test Item Value Reference Range Interpretation Comme nts Amphetamines (test code = AMPHET) NEG. The following ta ble provides an interpretive guide for the Drugs of Abuse ran on the Siemens [place] analyzer listed there in: Amphetamines < 1000 ng/ml = Negative Barbituates < 200 ng/ml = Negative Benzodiazapines < 200 ngml = Negative Cocaine < 300 ng/ml = Negative Methadone < 300 ng/ml = Negative Opiate < 300 ng/ml = Negative PCP < 25 ng/ml = Negative THC < 50 ng/ml = Negative Results equal to or greater than the above cut-off values = Presumptive Positive. Confirmation of Presumptive Positive results are available upon request. Screening results are for MEDICAL USE ONLY. BARBITUATES (test code = ANN) NEG. Benzodiazepines (test code = BENZO) NEG. Cocaine (test code = CHENTE) NEG. Methadone (test code = MTD) NEG. Opiates (test code = OPIAT) NEG. PHENCYCLIDINE, PCP (test code = PCP) NEG. Cannabinoids, THC (test code = THC) NEG. [id number] 07:30:00* Test Item Value Reference Range Interpretation Comme nts Lipase (test code = LIPA) 49 U/L 13-75 Effective 08/26/22 , normal reference range has changed for Lipase due to a remodification of the testing reagent. New reference range is now 13-75 U/L. STLMLPRO-BNP(B-Type Natriuretic Peptide)2024-03-12 07:30:00* Test Item Value Reference Range Interpretation Comme nts Pro-BNP(B-Peptide ) (test code = PROBNP) 231 pg/ml 0-125 H THE METHODOLOGY FOR DETECTION OF B-NATRIURETIC PEPTIDE HAS BEEN CHANGED TO "NT pro-BNP". THE NORMAL RANGES HAVE CHANGED. PLEASE NOTE THAT RANGES ARE DEFINED BY THE AGE OF THE PATIENT. (<75 years old = 0-125 pg/ml 75years and older = 0-450pg/ml). VALUES ARE NOT INTERCHANGEABLE BETWEEN METHODS. 07-03-2006 STLMLTSH (Ultra Sensitive)2024-03-12 07:30:00* Test Item Value Reference Range Interpretation Comme nts TSH (test code = TSH) 4.79 mIU/L 0.46-4.68 H STLMLXR CHEST AP/PA 1 [id number] 07:19:37 [facility] (LUF/AMEYA/SA)Name: CARMEN JOSEPH : 1980 Sex: FProcedure: AP View ChestOrder date: 03/12/2024 6:02 AMOrdering Provider: MARIAH MCDONALD TERSClinical Indication: [id number]: Chest painComparison: 11/01/2023Findings:Cardiomediastinal silhouette is within normal limits.The lungs are clear. No large pleural effusions or pneumothorax. Osseousstructures are nonacute.No evidence of active tuberculosis.Impression:No acute cardiopulmonary process.This final report was electronically signed by Dr Miguel Gilman MD 47:13 AMDictated By: MIGUEL GILMANDate: 03/12/2024 07:13STLML [id number] 07:13:00* Test Item Value Reference Range Interpretation Comme nts Phosphorus (test code = PHOS) 4.1 mg/dl 2.5-4.5 [id number] 07:13:00* Test Item Value Reference Range Interpretation Comme nts Magnesium (test code = MG) 1.8 mg/dl 1.6-2.3 STLMLHIGH SENSITIVITY [id number] 06:55:00* Test Item Value Reference Range Interpretation Comme nts HIGH SENSITIVITY TROPONIN (test code = TNIH) 16.0 ng/L 0.0-34.0 CHANGE IN TEST M ETHOD A change in the test method for Troponin has gone into effect. We now test for High Sensitivity Troponin. The new units of measure are ng/L, and the new 99th percentile cutoff of 34 ng/L for FEMALE and 53 ng/L for MALE. New critical values will be called for any troponin greater than or equal to 200 ng/L. [id number] 06:55:00* Test Item Value Reference Range Interpretation Comme nts Glucose (test code = GLU) 105 mg/dl 75-110 BUN (test code = BUN) 12.0 mg/dl 6.0-17.0 Creatinine (test code = CREA) 0.9 mg/dl 0.4-1.2 Sodium (test code = NA) 138 mmol/l 137-145 Potassium (test code = K) 3.4 mmol/l 3.5-5.0 L Chloride (test code = CL) 101 mmol/l 98-107 CO2 (test code = CO2) 28 mmol/l 22-30 Calcium (test code = CALC) 9.5 mg/dl 8.4-10.2 T Protein (test code = TP) 7.5 gm/dl 5.1-8.7 Albumin (test code = ALB) 3.3 gm/dl 3.5-4.6 L A/G Ratio (test code = AGRAT) 0.8 % 1.1-2.2 L AST (SGOT) (test code = AST) 20 U/L 11-36 ALT (SGPT) (test code = ALT) 22 U/L 11-40 Alkaline Phos (test code = ALKP) 84 U/L 47-114 Bilirubin, Total (test code = TBIL) 0.2 mg/dl 0.2-1.2 Globulin (test code = GLOBU) 4.2 gm/dl 2.3-3.5 H Calcium, Corrected (test code = CALCCORR) 10.1 mg/dl 8.4-10.2 Various formulas exist for corrected serum calcium results, each yielding different values. This corrected result was based on the formula: Corrected Calcium = SerumCalcium + [0.8 * ( 4 - SerumAlbumin)] Estimated Glomerular Filtration Rate (eGFR) (test code = EGFR) >60 As of 08/31/2022, reported eGFR is based on the CKD-EPI 2020 equation that does not use a race coefficient. STLMLCBC WITH AUTO [id number] 06:19:00* Test Item Value Reference Range Interpretation Comme nts WBC (test code = WBC) 6.67 10*3/ul 4.80-10.80 RBC (test code = RBC) 4.85 10*6/ul 4.20-5.40 Hemoglobin (test code = HGB) 13.0 gm/dl 12.0-14.0 Hematocrit (test code = HCT) 40.2 % 37.0-47.0 MCV (test code = MCV) 82.9 fL 81.0-99.0 MCH (test code = MCH) 26.8 pg 27.0-31.0 L MCHC (test code = MCHC) 32.3 gm/dl 33.0-37.0 L RDW (test code = RDWVC) 14.9 % 11.5-14.5 H Platelet (test code = PLT) 380 10*3/ul 130-400 MPV (test code = MPV) 9.3 fL 7.4-10.4 A NE% (test code = NE) 60.4 % 42.0-75.0 LY% (test code = LY) 29.7 % 13.0-42.0 MO% (test code = MO) 6.4 % 4.0-14.0 EO% (test code = EO) 2.5 % 1.0-5.0 BA% (test code = BA) 0.7 % 0.0-3.0 IG% (test code = IG%) 0.3 % 0.0-0.4 NRBC, Auto (test code = NRBC_AUTO) 0 /100WBC 0-2 STLMLHIGH SENSITIVITY [id number] 03:44:00* Test Item Value Reference Range Interpretation Comme nts HIGH SENSITIVITY TROPONIN (test code = TNIH) 12 ng/L 0-34 CHANGE IN TEST M ETHOD A change in the test method for Troponin has gone into effect. We now test for High Sensitivity Troponin. The new units of measure are ng/L, and the new 99th percentile cutoff of 34 ng/L for FEMALE and 53 ng/L for MALE. New critical values will be called for any troponin greater than or equal to 500 ng/L. [id number] 03:44:00* Test Item Value Reference Range Interpretation Comme nts Sodium (test code = NA) 135 mmol/l 136-145 L Potassium (test code = K) 3.1 mmol/l 3.5-5.1 L Chloride (test code = CL) 103 mmol/l 98-107 Calcium (test code = CALC) 8.2 mg/dl 8.5-10.1 L CO2 (test code = CO2) 28 mmol/l 21-32 Glucose (test code = GLU) 101 mg/dl 74-106 BUN (test code = BUN) 18.0 mg/dl 7.0-18.0 Creatinine (test code = CREA) 0.9 mg/dl 0.5-1.3 T Protein (test code = TP) 6.4 gm/dl 6.4-8.2 Albumin (test code = ALB) 2.9 gm/dl 3.4-5.0 L AST (SGOT) (test code = AST) 22 U/L 15-37 ALT (SGPT) (test code = ALT) 27 U/L 13-61 A/G Ratio (test code = AGRAT) 0.8 % 1.1-2.2 L Alkaline Phos (test code = ALKP) 71 U/L 45-117 Bilirubin, Total (test code = TBIL) 0.2 mg/dl 0.2-1.0 Anion Gap (test code = GAP) 4 mmol/l Globulin (test code = GLOBU) 3.5 gm/dl 2.3-3.5 Calcium, Corrected (test code = CALCCORR) 9.1 mg/dl 8.4-10.2 Estimated Glomerular Filtration Rate (eGFR) (test code = EGFR) >60 As of 3, reported eGFR is based on the CKD-EPI 2020 equation that does not use a race coefficient. STLMLTSH (Ultra Sensitive)2023-11-02 03:44:00* Test Item Value Reference Range Interpretation Comme nts TSH (test code = TSH) 1.50 mIU/L 0.35-3.74 STLMLCORONARY [id number] 03:44:00* Test Item Value Reference Range Interpretation Comme nts Triglycerides (test code = TRIG) 284 mg/dl 0-149 H Trig. Interpreta tion Guide: Normal: < 150 mg/dl Borderline High: 150 - 199 mg/dl High: 200 - 499 mg/dl Very High: >= 500 mg/dl Cholesterol (test code = CHOL) 243 mg/dl 0-200 H HDL (test code = HDL) 56 mg/dl 35-86 dLDL (test code = DILDL) 158 mg/dl 0-99 H Direct LDL Intrepretations: Optimal: <100 mg/dl Suspect: 100 - 129 mg/dl Borderline: 130 - 159 mg/dl High: 160 - 189 mg/dl Very High: >190 mg/dl Risk Factor (test code = RFACT) 4.3 0.0-4.4 Risk Factor Men Women Risk Factor 3.4 3.3 1/2 Average 5.0 4.4 Average 9.6 7.1 2X Average 24.0 11.0 3X Average vLDL (test code = VLDL) 57 mg/dl 20-40 H [id number] 03:44:00* Test Item Value Reference Range Interpretation Comme nts Magnesium (test code = MG) 2.0 mg/dl 1.6-2.6 STLMLGLYCOSALATED [id number] 03:44:00* Test Item Value Reference Range Interpretation Comme nts Hemoglobin A1C (test code = GLYCO) 5.1 % 4.3-6.0 A Mean Plasma Glucose (test code = MPG) 104 mg/dl 90-180 WHEN TEST RESU LTS FOR A1C EXCEED 14.0, THE LINEAR LIMIT OF THE INSTRUMENT, THE CALCULATED RESULT FOR THE MEAN GLUCOSE IS NOT RELIABLE. STLMLCBC WITH AUTO [id number] 03:16:00* Test Item Value Reference Range Interpretation Comme nts WBC (test code = WBC) 7.54 10\\S\\3/ul 4.80-10.80 RBC (test code = RBC) 4.13 10\\S\\6/ul 4.20-5.40 L Hemoglobin (test code = HGB) 12.0 gm/dl 12.0-14.0 Hematocrit (test code = HCT) 36.5 % 37.0-47.0 L MCV (test code = MCV) 88.4 fL 81.0-99.0 MCH (test code = MCH) 29.1 pg 27.0-31.0 MCHC (test code = MCHC) 32.9 gm/dl 33.0-37.0 L RDW (test code = RDWVC) 12.8 % 11.5-14.5 Platelet (test code = PLT) 359 10\\S\\3/ul 130-400 MPV (test code = MPV) 9.2 fL 7.4-10.4 A NE% (test code = NE) 48.1 % 42.0-75.0 LY% (test code = LY) 39.3 % 13.0-42.0 MO% (test code = MO) 7.7 % 4.0-14.0 EO% (test code = EO) 3.7 % 1.0-5.0 BA% (test code = BA) 0.9 % 0.0-3.0 IG% (test code = IG%) 0.3 % 0.0-0.4 NRBC, Auto (test code = NRBC_AUTO) 0 /100WBC 0-2 STLMLHIGH SENSITIVITY [id number] 19:43:00* Test Item Value Reference Range Interpretation Comme nts HIGH SENSITIVITY TROPONIN (t est code = TNIH) 14 ng/L 0-34 STLMLHIGH SENSITIVITY [id number] 14:40:00* Test Item Value Reference Range Interpretation Comme nts HIGH SENSITIVITY TROPONIN (t est code = TNIH) 14 ng/L 0-34 [id number] 14:40:00* Test Item Value Reference Range Interpretation Comme nts Sodium (test code = NA) 137 mmol/l 136-145 Potassium (test code = K) 3.8 mmol/l 3.5-5.1 Chloride (test code = CL) 104 mmol/l 98-107 Calcium (test code = CALC) 9.1 mg/dl 8.5-10.1 CO2 (test code = CO2) 25 mmol/l 21-32 Glucose (test code = GLU) 105 mg/dl 74-106 BUN (test code = BUN) 11.0 mg/dl 7.0-18.0 Creatinine (test code = CREA) 0.9 mg/dl 0.5-1.3 T Protein (test code = TP) 7.0 gm/dl 6.4-8.2 Albumin (test code = ALB) 3.2 gm/dl 3.4-5.0 L AST (SGOT) (test code = AST) 30 U/L 15-37 ALT (SGPT) (test code = ALT) 32 U/L 13-61 A/G Ratio (test code = AGRAT) 0.8 % 1.1-2.2 L Alkaline Phos (test code = ALKP) 76 U/L 45-117 Bilirubin, Total (test code = TBIL) 0.2 mg/dl 0.2-1.0 Anion Gap (test code = GAP) 8 mmol/l Globulin (test code = GLOBU) 3.8 gm/dl 2.3-3.5 H Calcium, Corrected (test code = CALCCORR) 9.7 mg/dl 8.4-10.2 Estimated Glomerular Filtration Rate (eGFR) (test code = EGFR) >60 As of 3, reported eGFR is based on the CKD-EPI 2020 equation that does not use a race coefficient. STLMLCBC WITH AUTO [id number] 14:20:00* Test Item Value Reference Range Interpretation Comme nts WBC (test code = WBC) 9.77 10\\S\\3/ul 4.80-10.80 RBC (test code = RBC) 4.59 10\\S\\6/ul 4.20-5.40 Hemoglobin (test code = HGB) 13.4 gm/dl 12.0-14.0 Hematocrit (test code = HCT) 40.4 % 37.0-47.0 MCV (test code = MCV) 88.0 fL 81.0-99.0 MCH (test code = MCH) 29.2 pg 27.0-31.0 MCHC (test code = MCHC) 33.2 gm/dl 33.0-37.0 RDW (test code = RDWVC) 12.9 % 11.5-14.5 Platelet (test code = PLT) 302 10\\S\\3/ul 130-400 MPV (test code = MPV) 10.1 fL 7.4-10.4 A NE% (test code = NE) 69.2 % 42.0-75.0 LY% (test code = LY) 20.0 % 13.0-42.0 MO% (test code = MO) 8.3 % 4.0-14.0 EO% (test code = EO) 1.1 % 1.0-5.0 BA% (test code = BA) 0.8 % 0.0-3.0 IG% (test code = IG%) 0.6 % 0.0-0.4 H NRBC, Auto (test code = NRBC_AUTO) 0 /100WBC 0-2 STLMLHIGH SENSITIVITY [id number] 06:01:00* Test Item Value Reference Range Interpretation Comme nts HIGH SENSITIVITY TROPONIN (test code = TNIH) 19.0 ng/L 0.0-34.0 CHANGE IN TEST M ETHOD A change in the test method for Troponin has gone into effect. We now test for High Sensitivity Troponin. The new units of measure are ng/L, and the new 99th percentile cutoff of 34 ng/L for FEMALE and 53 ng/L for MALE. New critical values will be called for any troponin greater than or equal to 500 ng/L. STLMLCT ANGIO CHEST W [id number] 05:14:4220 g Cathlon Above the Antecubital or higher required [facility] ([facility]/[place])Name: CARMEN MENDOZA : 1980 Sex: FEXAM: CT ANGIO CHEST W CONTRASTHISTORY: Chest painCOMPARISON: None available.TECHNIQUE: Contig uous axial images were acquired from the supraclavicularregion to the upper abdomen after administration of intravenous contrastutilizing PE protocol. Axial maximum intensity projections, and coronalandsagittal reconstructions were obtained. All CT scans at this facility use dosemodulation, iterative reconstruction, and/or weight-based dosing whenappropriate to reduce radiation dose to as low asreasonably achievable..FINDINGS:PULMONARY VASCULATURE: No pulmonary arterial filling defects are identified.Normal caliber main pulmonary arteryLUNGS/PLEURA: No consolidation or pleural effusion.AIRWAY: Mild bronchial wall thickening.LOWER NECK/THYROID: The visualized portions of thyroid gland are normal.MEDIASTINUM: No mediastinal lymphadenopathy. Normal cardiac morphology. Nopericardial effusion. Small to moderate size hiatal hernia.AORTA AND GREAT VESSELS: The visualized portions of the aorta are normal incaliber.CHEST WALL SOFT TISSUES: No chest wall soft tissue abnormality.BONES: No suspicious lytic or blastic skeletal lesions.UPPER ABDOMEN: Hepatic steatosisIMPRESSION:No pulmonary emboli identified.Mild bronchial wall thickening could reflect reactive airways disease orinfectious bronchitis/bronchiolitisSmall to moderate size hiatal hernia.Additional non-emergent findings as above.Electronically signed by: Sigifredo Macedo 11/01/2023 5:10Dictated By: MARLEE MACEDOADate: 11/01/2023 05:14STLMLPREGNANCY TEST, Urine [id number] 03:19:00* Test Item Value Reference Range Interpretation Comme nts (Urine) (test code = PREGU) Negative If a specimen is collected by a nurse, then you MUST fill out the Collected and Collected By hilario STLMLURINALYSIS WITH REFLEX TO CULTURE 2023-11-01 03:18:00* Test Item Value Reference Range Interpretation Comme nts Color (test code = UCOLR) Yellow Lt. Yellow A Clarity (test code = UCLAR) Clear Glucose (test code = UGLUC) Negative Negative N Bilirubin (test code = UBILI) Negative Negative N Ketones (test code = UKET) Negative Negative N Specific [place] (test code = USPGR) >=1.030 1.005-1.030 A Blood (test code = UBLD) Trace-intact Negative A PH (test code = UPH) 5.5 4.5-8.0 A Protein (test code = UPROT) 30 mg/dL Negative A Urobilinogen (test code = U UROB) 0.2 E.U./dL See_Comment A [Automated messa ge] The system which generated this result transmitted reference range: 0.2. The reference range was not used to interpret this result as normal/abnormal. Nitrite (test code = UNITR) Negative Negative N Leukocyte Esterase (test code = ULEUK) Negative Negative N Bacteria (test code = UBACT) n/a NONE SEEN A [id number] 03:05:00* Test Item Value Reference Range Interpretation Comme nts Glucose (test code = GLU) 115 mg/dl 75-110 H BUN (test code = BUN) 13.0 mg/dl 6.0-17.0 Creatinine (test code = CREA) 1.1 mg/dl 0.4-1.2 Sodium (test code = NA) 141 mmol/l 137-145 Potassium (test code = K) 3.3 mmol/l 3.5-5.0 L Chloride (test code = CL) 100 mmol/l 98-107 CO2 (test code = CO2) 26 mmol/l 22-30 Calcium (test code = CALC) 9.3 mg/dl 8.4-10.2 T Protein (test code = TP) 7.9 gm/dl 5.1-8.7 Albumin (test code = ALB) 3.6 gm/dl 3.5-4.6 A/G Ratio (test code = AGRAT) 0.8 % 1.1-2.2 L AST (SGOT) (test code = AST) 42 U/L 11-36 H ALT (SGPT) (test code = ALT) 41 U/L 11-40 H Alkaline Phos (test code = ALKP) 91 U/L 47-114 Bilirubin, Total (test code = TBIL) 0.3 mg/dl 0.2-1.2 Globulin (test code = GLOBU) 4.3 gm/dl 2.3-3.5 H Calcium, Corrected (test code = CALCCORR) 9.6 mg/dl 8.4-10.2 Various formulas exist for corrected serum calcium results, each yielding different values. This corrected result was based on the formula: Corrected Calcium = SerumCalcium + [0.8 * ( 4 - SerumAlbumin)] Estimated Glomerular Filtration Rate (eGFR) (test code = EGFR) 58 As of 08/31/2022, reported eGFR is based on the CKD-EPI 2020 equation that does not use a race coefficient. STLMLHIGH SENSITIVITY [id number] 03:05:00* Test Item Value Reference Range Interpretation Comme nts HIGH SENSITIVITY TROPONIN (test code = TNIH) 11.0 ng/L 0.0-34.0 CHANGE IN TEST M ETHOD A change in the test method for Troponin has gone into effect. We now test for High Sensitivity Troponin. The new units of measure are ng/L, and the new 99th percentile cutoff of 34 ng/L for FEMALE and 53 ng/L for MALE. New critical values will be called for any troponin greater than or equal to 500 ng/L. STLMLPT AND [id number] 02:44:00* Test Item Value Reference Range Interpretation Comme [facility] Protime (test code = PT) 10.4 seconds 9.5-11.7 INR (test code = INR) 0.98 1.00-3.00 L INR results are intended ONLY to monitor Oral Anticoagulant therapy in stablized patients. The INR Therapeutic Range is 2.0 - 3.0 Patients with a mechanical heart, the INR Range is 2.5 - 3.5 [id number] 02:44:00* Test Item Value Reference Range Interpretation Comme [facility] aPTT (test code = PTT) 22.6 seconds 22.9-30.8 L STLMLXR CHEST AP/PA 1 [id number] 02:38:23 [facility] ([facility]/[place])Name: CARMEN MENDOZA : 1980 Sex: FEXAM: XR CHEST AP/PA 1 VIEWTECHNIQUE: Single View ChestHISTORY: [id number]: Chest painCOMPARISON: NoneFINDINGS:LINES/TUBES: None.LUNGS/PLEURA: No focal consolidation.No pleural effusion. No pneumothorax.HEART AND MEDIASTINUM: The heart is at the upper limits of normal in size whichmay be partially projectional.IMPRESSION:NO ACUTE PROCESS.Electronically signed by: Vamsi Marrero 11/01/2023 2:34Dictated By: ZAYDA MARREROate: 11/01/2023 02:38STLMLCBC WITH AUTO [id number] 02:38:00* Test Item Value Reference Range Interpretation Comme nts WBC (test code = WBC) 9.54 10\\S\\3/ul 4.80-10.80 RBC (test code = RBC) 4.73 10\\S\\6/ul 4.20-5.40 Hemoglobin (test code = HGB) 13.6 gm/dl 12.0-14.0 Hematocrit (test code = HCT) 41.3 % 37.0-47.0 MCV (test code = MCV) 87.3 fL 81.0-99.0 MCH (test code = MCH) 28.8 pg 27.0-31.0 MCHC (test code = MCHC) 32.9 gm/dl 33.0-37.0 L RDW (test code = RDWVC) 12.5 % 11.5-14.5 Platelet (test code = PLT) 460 10\\S\\3/ul 130-400 H MPV (test code = MPV) 9.3 fL 7.4-10.4 A NE% (test code = NE) 45.9 % 42.0-75.0 LY% (test code = LY) 41.0 % 13.0-42.0 MO% (test code = MO) 9.3 % 4.0-14.0 EO% (test code = EO) 2.5 % 1.0-5.0 BA% (test code = BA) 1.0 % 0.0-3.0 IG% (test code = IG%) 0.3 % 0.0-0.4 NRBC, Auto (test code = NRBC_AUTO) 0 /100WBC 0-2 STLMLCULTURE, [id number] 08:09:00#2 Blood Culture - 15 mins apart, preferably From Different SitesSpecimen: BloodCollected: 08/01/2023 02:19 Status: Final Last Updated: 08/06/2023 08:09 (1) #2 Blood Culture - 15 mins apart, preferably From Different Sites CULTURE (Final) (Final) No Growth After 5 DaysSTLMLCULTURE, ANAEROBE [id number] 08:09:00ANEROBIC BLOOD Culture #2, 15 mins apart Preferrably different sitesSpecimen: BloodCollected: 08/01/2023 02:19 Status: Final Last Updated: 08/06/2023 08:09 (1) ANEROBIC BLOOD Culture #2, 15 mins apart Preferrably different sites CULTURE (Final) (Final) No Growth After 5 DaysSTLMLCULTURE, [id number] 08:09:00#1 BLOOD CULTURESpecimen: BloodCollected: 08/01/2023 02:04 Status: Final Last Updated: 08/06/2023 08:09 (1) #1 BLOOD CULTURE CULTURE (Final) (Final) No Growth After 5 DaysSTLMLCULTURE, ANAEROBE [id number] 08:09:00ANEROBIC BLOOD Culture #1Specimen: BloodCollected: 08/01/2023 02:04 Status: Final Last Updated: 08/06/2023 08:09 (1) ANEROBIC BLOOD Culture #1 CULTURE (Final) (Final) No Growth After 5 Days [id number] 05:28:00* Test Item Value Reference Range Interpretation Comme nts Sodium (test code = NA) 135 mmol/l 136-145 L Potassium (test code = K) 4.0 mmol/l 3.5-5.1 Chloride (test code = CL) 104 mmol/l 98-107 Calcium (test code = CALC) 9.3 mg/dl 8.5-10.1 CO2 (test code = CO2) 27 mmol/l 21-32 Glucose (test code = GLU) 94 mg/dl 74-106 BUN (test code = BUN) 10.0 mg/dl 7.0-18.0 Creatinine (test code = CREA) 0.6 mg/dl 0.5-1.3 Anion Gap (test code = GAP) 4 mmol/l Estimated Glomerular Filtration Rate (eGFR) (test code = EGFR) >60 As of 3, reported eGFR is based on the CKD-EPI 202 equation that does not use a race coefficient. STLMLCBC WITH AUTO [id number] 05:10:00* Test Item Value Reference Range Interpretation Comme nts WBC (test code = WBC) 8.63 10\\S\\3/ul 4.80-10.80 RBC (test code = RBC) 4.54 10\\S\\6/ul 4.20-5.40 Hemoglobin (test code = HGB) 13.6 gm/dl 12.0-14.0 Hematocrit (test code = HCT) 41.0 % 37.0-47.0 MCV (test code = MCV) 90.3 fL 81.0-99.0 MCH (test code = MCH) 30.0 pg 27.0-31.0 MCHC (test code = MCHC) 33.2 gm/dl 33.0-37.0 RDW (test code = RDWVC) 13.7 % 11.5-14.5 Platelet (test code = PLT) 318 10\\S\\3/ul 130-400 MPV (test code = MPV) 9.6 fL 7.4-10.4 A "NOT MEASURED" RESULTS ARE DISPLAYED WHEN THE INSTRUMENT HAS A SUPPRESSED OR UNREPORTABLE RESULT. THIS WILL MOST OFTEN HAPPEN WITH THE MPV WHEN THERE IS AN ABNORMAL PLATELET DISTRIBUTION DUE TO A CRITICAL LOW VALUE OR PLATELET CLUMPING. THE RDW MAY BE SUPPRESSED IF THERE ARE MULTIPLE PEAKS PRESENT ON THE RBC HISTOGRAM. IN THIS CASE, A MANUAL REVIEW OF THE SLIDE WILL BE PERFORMED, AND RBC MORPHOLOGY WILL BE NOTED ON THE REPORT. NE% (test code = NE) 63.3 % 42.0-75.0 LY% (test code = LY) 26.7 % 13.0-42.0 MO% (test code = MO) 6.5 % 4.0-14.0 EO% (test code = EO) 2.7 % 1.0-5.0 BA% (test code = BA) 0.6 % 0.0-3.0 IG% (test code = IG%) 0.2 % 0.0-0.4 NRBC, Auto (test code = NRBC_AUTO) 0 /100WBC 0-2 STLMLCULTURE, [id number] 08:13:00Specimen: Urine SpecimensCollected: 08/01/2023 03:25 Status: Final Last Updated: 08/02/2023 08:13 CULTURE (Final) (Final) Very Few Multiple species present, Probable contamination Organisms isolatedmay be the result of fecal contamination or colonization of a senior care indwelling catheter. Recommend recollection of specimen.[id number] 04:23:00* Test Item Value Reference Range Interpretation Comme nts Sodium (test code = NA) 138 mmol/l 136-145 Potassium (test code = K) 3.7 mmol/l 3.5-5.1 Chloride (test code = CL) 112 mmol/l 98-107 H Calcium (test code = CALC) 8.0 mg/dl 8.5-10.1 L CO2 (test code = CO2) 23 mmol/l 21-32 Glucose (test code = GLU) 96 mg/dl 74-106 BUN (test code = BUN) 8.0 mg/dl 7.0-18.0 Creatinine (test code = CREA) 0.5 mg/dl 0.5-1.3 Anion Gap (test code = GAP) 3 mmol/l Estimated Glomerular Filtration Rate (eGFR) (test code = EGFR) >60 As of 3, reported eGFR is based on the CKD-EPI 2020 equation that does not use a race coefficient. STLMLCBC WITH AUTO [id number] 04:10:00* Test Item Value Reference Range Interpretation Comme nts WBC (test code = WBC) 7.84 10\\S\\3/ul 4.80-10.80 RBC (test code = RBC) 3.71 10\\S\\6/ul 4.20-5.40 L Hemoglobin (test code = HGB) 11.0 gm/dl 12.0-14.0 L Hematocrit (test code = HCT) 33.9 % 37.0-47.0 L MCV (test code = MCV) 91.4 fL 81.0-99.0 MCH (test code = MCH) 29.6 pg 27.0-31.0 MCHC (test code = MCHC) 32.4 gm/dl 33.0-37.0 L RDW (test code = RDWVC) 13.8 % 11.5-14.5 Platelet (test code = PLT) 224 10\\S\\3/ul 130-400 MPV (test code = MPV) 9.4 fL 7.4-10.4 A "NOT MEASURED" RESULTS ARE DISPLAYED WHEN THE INSTRUMENT HAS A SUPPRESSED OR UNREPORTABLE RESULT. THIS WILL MOST OFTEN HAPPEN WITH THE MPV WHEN THERE IS AN ABNORMAL PLATELET DISTRIBUTION DUE TO A CRITICAL LOW VALUE OR PLATELET CLUMPING. THE RDW MAY BE SUPPRESSED IF THERE ARE MULTIPLE PEAKS PRESENT ON THE RBC HISTOGRAM. IN THIS CASE, A MANUAL REVIEW OF THE SLIDE WILL BE PERFORMED, AND RBC MORPHOLOGY WILL BE NOTED ON THE REPORT. NE% (test code = NE) 59.1 % 42.0-75.0 LY% (test code = LY) 31.3 % 13.0-42.0 MO% (test code = MO) 6.3 % 4.0-14.0 EO% (test code = EO) 2.6 % 1.0-5.0 BA% (test code = BA) 0.4 % 0.0-3.0 IG% (test code = IG%) 0.3 % 0.0-0.4 NRBC, Auto (test code = NRBC_AUTO) 0 /100WBC 0-2 STLMLHIGH SENSITIVITY [id number] 19:58:00* Test Item Value Reference Range Interpretation Comme nts HIGH SENSITIVITY TROPONIN (t est code = TNIH) 155 ng/L 0-34 H STLMLGLYCOSALATED [id number] 11:07:00* Test Item Value Reference Range Interpretation Comme nts Hemoglobin A1C (test code = GLYCO) 5.2 % 4.3-6.0 A Mean Plasma Glucose (test code = MPG) 108 mg/dl 90-180 WHEN TEST RESU LTS FOR A1C EXCEED 14.0, THE LINEAR LIMIT OF THE INSTRUMENT, THE CALCULATED RESULT FOR THE MEAN GLUCOSE IS NOT RELIABLE. [id number] 11:01:00* Test Item Value Reference Range Interpretation Comme nts CPK (test code = CPK) 358 U/L 26-308 H STLMLHIGH SENSITIVITY [id number] 11:01:00* Test Item Value Reference Range Interpretation Comme nts HIGH SENSITIVITY TROPONIN (t est code = TNIH) 96 ng/L 0-34 H STLMLCORONARY [id number] 10:32:00* Test Item Value Reference Range Interpretation Comme nts Triglycerides (test code = TRIG) 254 mg/dl 0-149 H Trig. Interpreta tion Guide: Normal: < 150 mg/dl Borderline High: 150 - 199 mg/dl High: 200 - 499 mg/dl Very High: >= 500 mg/dl Cholesterol (test code = CHOL) 227 mg/dl 0-200 H HDL (test code = HDL) 65 mg/dl 35-86 dLDL (test code = DILDL) 118 mg/dl 0-99 H Direct LDL Intrepretations: Optimal: <100 mg/dl Suspect: 100 - 129 mg/dl Borderline: 130 - 159 mg/dl High: 160 - 189 mg/dl Very High: >190 mg/dl Risk Factor (test code = RFACT) 3.5 0.0-4.4 Risk Factor Men Women Risk Factor 3.4 3.3 1/2 Average 5.0 4.4 Average 9.6 7.1 2X Average 24.0 11.0 3X Average vLDL (test code = VLDL) 51 mg/dl 20-40 H STLMLHIGH SENSITIVITY [id number] 05:32:00* Test Item Value Reference Range Interpretation Comme nts HIGH SENSITIVITY TROPONIN (t est code = TNIH) 181 ng/L 0-34 H [id number] 05:32:00* Test Item Value Reference Range Interpretation Comme nts CPK (test code = CPK) 275 U/L 26-308 STLMLLACTIC ACID [id number] 05:31:00* Test Item Value Reference Range Interpretation Comme nts LACTATE (test code = LAC) 1.3 mmol/l 0.4-2.0 STLMLCT ABDOMEN/PELVIS [id number] 04:32:35NPO 4 hours. Do not withhold [facility])Name: CARMEN MENDOZA : 1980 Sex: FEXAM: CT ABDOMEN/PELVIS W/CONTRASTHISTORY: 43 years -old Female with [id number]: VomitingTECHNIQUE:Contrast - IV contrast was given,Contiguous axial images acquired through the abdomen/pelvis.Reconstructions - coronal and sagittal planesCOMPARISON: NoneFINDINGS:Statements: None.Thoracic: See separate CTA chest.Hepatobiliary: The liver is unremarkable without focal lesion. The gallbladderis unremarkable. No biliary dilation.Pancreas: No abnormality identified in the pancreas.Spleen: No abnormality identified in the spleen.Adrenals: No abnormality identified in either adrenal gland.Genitou rinary: No parenchymal abnormality identified in either kidney. Nohydronephrosis. Evaluation of thebladder is limited, but no obvious bladderabnormality is present. Uterus is present. A corpus luteal cyst is noted on theright.Gastrointestinal: No evidence of bowel obstruction or perienteric inflammation.The appendix is not visualized.Vascular/Lymphatics: No enlarged lymph nodes by CT size criteria. Abdominalaorta is normal in caliber.MSK/Body Wall: No concerning bony lesion identified.Peritoneum/Other: No extraluminal air. Small amount of free fluid in the pelvis..IMPRESSION:1. Diffuse esophageal wall thickening of the visualized lower esophagus may becorrelated clinically for esophagitis.2. No evidence of bowel obstruction.3. See separate CTA chest for additional findings.DOSE REDUCTIONTECHNIQUEAll CT scans at this facility use dose modulation, iterative reconstruction,and/or weight-based dosing when appropriate to reduce radiation dose to as lowas reasonably achievable.Electronically signed by: Mary Loco 08/01/2023 4:28Dictated By: Michele LOCO: 08/01/2023 04:32STLMLCT ANGIO CHEST W/ [id number] 04:28:3520 g Cathlon Above the Antecubital or higher required [facility] ([facility]/)Name: CARMEN MENDOZA : 1980 Sex: FEXAM: CT ANGIO CHEST W/ CONTRASTHISTORY: 43 years old Female with [id number]: Chest painTECHNIQU E: Volumetric data acquisition through the chest with intravenouscontrast but without oral contrastconstructed as contiguous axial volumes,multiplanar coronal and sagittal reconstructions, and axialand coronal MIPimages.COMPARISON: NoneFINDINGS:Lines and tubes: None.Cardiovascular: The pulmonary arteries are well seen through the segmentallevel. No filling defect is identified within limitationof motion.. Nothoracic aortic aneurysm or dissection identified.No cardiomegaly or pericardial effusion.Coronary artery atherosclerotic calcification: None detected.Mediastinum and neck: No adenopathy by CT size criteria. The thyroid gland isnormal. Diffuse circumferential esophageal wall thickening.Lungs and Pleura: No pleural effusion. No pulmonary consolidation. No centralendobronchial masses.Abdomen: See separate CT abdomen/pelvisMusculoskeletal: No soft tissue masses. No aggressive appearing skeletallesions.IMPRESSION:1. No pulmonary thromboemboli identified within the limitation of motion.2. Diffuse circumferential esophageal wall thickening may representinflammatory/infectious esophagitis. Follow-up to resolution is recommended toexclude underlying neoplasm.3. See separate CT abdomen/pelvis for additional findings.DOSE REDUCTION TECHNIQUEAll CT scans at this facility use dose modulation, iterative reconstruction,and/or weight-based dosing when appropriate to reduce radiation dose to as lowas reasonably achievable.Electronically signed by: Mary Loco 08/01/2023 4:24Dictated By: Michele LOCO: 08/01/2023 04:28STLMLDRUG SCREEN [id number] 03:55:00* Test Item Value Reference Range Interpretation Comme nts Amphetamines (test code = AMPHET) NEG BARBITUATES (test code = ANN) NEG Benzodiazepines (test code = BENZO) NEG Cocaine (test code = CHENTE) NEG Methadone (test code = MTD) NEG Opiates (test code = OPIAT) POS PHENCYCLIDINE, PCP (test code = PCP) NEG The following ta ble provides an interpretive guide for the Drugs of Abuse ran on the [employer] [place] analyzer listed there in: Amphetamines < 1000 ng/ml = Negative Barbituates < 200 ng/ml = Negative Benzodiazapines < 200 ngml = Negative Cocaine < 300 ng/ml = Negative Methadone < 300 ng/ml = Negative Opiate < 300 ng/ml = Negative PCP < 25 ng/ml = Negative THC < 50 ng/ml = Negative Results equal to or greater than the above cut-off values = Presumptive Positive. Confirmation of Presumptive Positive results are available upon request. Screening results are for MEDICAL USE ONLY. Cannabinoids, THC (test code = THC) NEG STLMLURINALYSIS WITH [id number] 03:42:00* Test Item Value Reference Range Interpretation Comme nts Color (test code = UCOLR) Yellow Clarity (test code = UCLAR) Cloudy Glucose (test code = UGLUC) NEGATIVE NEGATIVE N Bilirubin (test code = UBILI) NEGATIVE NEGATIVE N Ketones (test code = UKET) NEGATIVE NEGATIVE N Specific [place] (test code = USPGR) 1.020 1.005-1.030 A Blood (test code = UBLD) NEGATIVE NEGATIVE N PH (test code = UPH) 6.0 4.5-8.0 A Protein (test code = UPROT) 30 NEGATIVE A Urobilinogen (test code = U UROB) 0.2 See_Comment N [Automated messa ge] The system which generated this result transmitted reference range: 0.2. The reference range was not used to interpret this result as normal/abnormal. Nitrite (test code = UNITR) NEGATIVE NEGATIVE N Leukocyte Esterase (test code = ULEUK) Moderate NEGATIVE A RBC (test code = RBCUR) 6-10 0-5 A WBC (test code = WBCUR) 51-74 NONE,0-1,2-5,6-10 A Bacteria (test code = UBACT) 3+ None Seen,Trace A Budding Yeast (test code = BYST) RARE NONE SEEN A Mucous (test code = UMUC) TRACE None Seen A Squamous Epithelial (test code = SQEP) TNTC 0-10 A Hyaline Cast (test code = HYAL) MANY NONE SEEN A STLMLSTAT LAB CBC WITH AUTO [id number] 03:36:00* Test Item Value Reference Range Interpretation Comme nts WBC (test code = WBC) 9.32 10\\S\\3/ul 4.80-10.80 RBC (test code = RBC) 5.00 10\\S\\6/ul 4.20-5.40 Hemoglobin (test code = HGB) 14.9 gm/dl 12.0-14.0 H Hematocrit (test code = HCT) 44.4 % 37.0-47.0 MCV (test code = MCV) 88.8 fL 81.0-99.0 MCH (test code = MCH) 29.8 pg 27.0-31.0 MCHC (test code = MCHC) 33.6 gm/dl 33.0-37.0 Platelet (test code = PLT) 384 10\\S\\3/ul 130-400 RDW (test code = RDWVC) 13.2 % 11.5-14.5 MPV (test code = MPV) 9.3 fL 7.4-10.4 A NE% (test code = NE) 44.3 % 42.0-75.0 LY% (test code = LY) 51.6 % 13.0-42.0 H MO% (test code = MO) 2.9 % 4.0-14.0 L EO% (test code = EO) 0.9 % 1.0-3.0 L BA% (test code = BA) 0.1 % 1.0-3.0 L IG% (test code = IG%) 0.2 % 0.0-0.4 Neutrophils (test code = NEUTR) 43 % 42-75 No previous valu e was reported. A value of 43 was entered by [id number] on 08/01/2023 03:36 Lymphocytes (test code = LYMPH) 44 % 13-42 H No previous valu e was reported. A value of 44 was entered by [id number] on 08/01/2023 03:36 Monocytes (test code = MONOS) 3 % 4-14 L No previous valu e was reported. A value of 3 was entered by [id number] on 08/01/2023 03:36 Eosinophils (test code = EOS) 3 % 1-3 No previous valu e was reported. A value of 3 was entered by [id number] on 08/01/2023 03:36 Atypical Lymphocyte (test code = ATPLYM) 7 % No previous valu e was reported. A value of 7 was entered by [id number] on 08/01/2023 03:36 RBC Morphology (test code = RBCMOR) Normochromic No previous valu e was reported. A value of Normochromic was entered by [id number] on 08/01/2023 03:36 WBC Morphology (test code = WBCMOR) Smudge cells No previous valu e was reported. A value of Smudge cells was entered by [id number] on 08/01/2023 03:36 Platelet Morphology (test code = PLTMORPH) Rare platelet clumping, count appears adequate. No previous value was reported. A value of Rare platelet clumping, count appears adequate. was entered by [id number] on 08/01/2023 03:36 STLMLXR CHEST AP/PA 1 [id number] 02:47:02 [facility] ([facility]/[place])Name: CARMEN MENDOZA : 1980 Sex: FCHEST 1 VIEWHISTORY: Vomiting.COMPARISON- none available.FINDINGS:Lungs: The lungs are clear.Pleura: No pleural effusion. No pneumothorax.Heart/Mediastinum: Unremarkable. No cardiomegaly.Bones:No acute fracture is visualized.IMPRESSION: No acute cardiopulmonary abnormality.Electronically signed by: Maria Esther Rahman 08/01/2023 2:42Dictated By: MARIA ESTHER RAHMANDate: 08/01/2023 02:46STLMLSALICYLATES (Aspirin)2023-08-01 02:46:00* Test Item Value Reference Range Interpretation Comme nts Salicylate (test code = SALI) <1.7 mg/dl 2.8-20.0 L STLMLHIGH SENSITIVITY [id number] 02:46:00* Test Item Value Reference Range Interpretation Comme nts HIGH SENSITIVITY TROPONIN (t est code = TNIH) 99 ng/L 0-34 H STLMLHEPATIC FUNCTION PANEL (LIVER)2023-08-01 02:46:00* Test Item Value Reference Range Interpretation Comme nts T Protein (test code = TP) 6.8 gm/dl 6.4-8.2 Albumin (test code = ALB) 2.8 gm/dl 3.4-5.0 L AST (SGOT) (test code = AST) 20 U/L 15-37 ALT (SGPT) (test code = ALT) 19 U/L 13-61 Alkaline Phos (test code = ALKP) 68 U/L 45-117 Bilirubin, Total (test code = TBIL) 0.1 mg/dl 0.2-1.0 L Direct Bilirubin (test code = DBIL) <0.1 mg/dl 0.0-0.3 N Indirect Bilirubin (test cod e = IBIL) 0.1 mg/dl 0.0-1.1 STLMLACETAMINOPHEN (Tyenol)2023-08-01 02:42:00* Test Item Value Reference Range Interpretation Comme nts Acetaminophen (test code = ACET) <2 ug/ml 10-30 L STLMLALCOHOL, [id number] 02:33:00* Test Item Value Reference Range Interpretation Comme nts Alcohol % (test code = ALCPC) 0 % 0.00-0.00 N Ethanol % 0.00 - 0.10 Sub-clinical 0.11 - 0.20 Emotional Instability 0.21 - 0.30 Confusion 0.31 - 0.40 Stupor 0.41 - 0.50 Coma >.50 Fatal [id number] 02:31:00* Test Item Value Reference Range Interpretation Comme nts Magnesium (test code = MG) 2.2 mg/dl 1.6-2.6 STLMLSTAT LAB FLU [id number] 02:28:00* Test Item Value Reference Range Interpretation Comme nts Flu A Screen (test code = FLUA) Negative Negative N EFFECTIVE 2012 - A method change has occurred. A molecular method for Flu testing will replace the current method. Both Flu A and Flu B will be tested and results will continue to be listed as "Negative or Positive". While this method is more specific in the detection of both strains, confirmatory testing is available upon request. ldh Flu B Screen (test code = FLUB) Negative Negative N EFFECTIVE 2012 - A method change has occurred. A molecular method for Flu testing will replace the current method. Both Flu A and Flu B will be tested and results will continue to be listed as "Negative or Positive". While this method is more specific in the detection of both strains, confirmatory testing is available upon request. ldh STLMLCOVID 19 [id number] 02:28:00* Test Item Value Reference Range Interpretation Comme nts COVID 19 ANTIGEN (test code = COVAG) Negative Negative [facility], Serum [id number] 02:25:00* Test Item Value Reference Range Interpretation Comme nts (Serum) (test code = PREGS) Negative [facility] LACTIC [id number] 02:25:00* Test Item Value Reference Range Interpretation Comme nts LACTATE (test code = LAC) 2.70 mmol/l 0.90-1.70 Called AnahiRN,RB@0224 STAT x 1, then [facility] [id number] 02:23:00* Test Item Value Reference Range Interpretation Comme nts B-Peptide (test code = BNP) 16 pg/ml 0-100 [facility] CHEM [id number] 02:13:00* Test Item Value Reference Range Interpretation Comme nts Sodium (test code = NA) 135 mmol/l 138-146 L Potassium (test code = K) 3.5 mmol/l 3.5-4.9 IONIZED CALCIUM (test code = ICA) 1.06 mmol/l 1.12-1.32 A Chloride (test code = CL) 106 mmol/l 98-109 Glucose (test code = GLU) 142 mg/dl 70-105 H Creatinine (test code = CREA) 1.0 mg/dl 0.6-1.3 Estimated Glomerular Filtrat ion Rate (eGFR) (test code = EGFR) >60 BUN (test code = BUN) 17 mg/dl 6-17 CO2 (test code = CO2) 17.4 mmol/l 24.0-29.0 L STLMLTROPONIN [id number] 02:32:27* Test Item Value Reference Range Interpretation Comments TROPONIN I (test code = 5374716223) 0.006 ng/mL See_Comment [Automated message] The system which generated this result transmitted reference range: <=0.034. The reference range was not used to interpret this result as normal/abnormal. PAULA (test code = PAULA) Reference (Normal) [...] to patient's use of biotin. Lab Interpretation (test code = 20490-8) [id number] 02:29:25* Test Item Value Reference Range Interpretation Comme nts NT-proBNP (test code = 3795471430) 77 pg/mL See_Comment [Automated message] The system which generated this result transmitted reference range: <=125. The reference range was not used to interpret this result as normal/abnormal. PAULA (test code = PAULA) Biotin has been reported to cause a negative bias, interpret results relative to patient's use of biotin. Lab Interpretation (test code = 96584-6) [facility] WITH [id number] 02:21:26* Test Item Value Reference Range Interpretation Comme nts WBC (test code = 6690-2) See_Comment [Automated inFreeDAa ge] The system which generated this result transmitted reference range: 4.30 - 11.10 10*3/?L. The reference range was not used to interpret this result as normal/abnormal. RBC (test code = 789-8) See_Comment [Automated inFreeDAa ge] The system which generated this result transmitted reference range: 3.93 - 5.25 10*6/?L. The reference range was not used to interpret this result as normal/abnormal. HGB (test code = 718-7) 14.4 g/dL 11.6-15.0 HCT (test code = 4544-3) 43.6 % 35.7-45.2 MCV (test code = 787-2) 89.3 fL 80.6-95.5 MCH (test code = 785-6) 29.5 pg 25.9-32.8 MCHC (test code = 786-4) 33.0 g/dL 31.6-35.1 RDW-SD (test code = 97228-8) 45.0 fL 39.0-49.9 RDW-CV (test code = 788-0) 13.6 % 12.0-15.5 PLT (test code = 777-3) See_Comment [Automated inFreeDAa zePASS] The system which generated this result transmitted reference range: 166 - 358 10*3/?L. The reference range was not used to interpret this result as normal/abnormal. MPV (test code = 04788-6) 10.5 fL 9.5-12.9 IPF % (test code = 6138971724) 3.1 % 1.3-7.7 Platelet count m easured by fluorescence method. NRBC/100 WBC (test code = 4979368047) See_Comment [Automated inFreeDAa zePASS] The system which generated this result transmitted reference range: 0.0 - 10.0 /100 WBCs. The reference range was not used to interpret this result as normal/abnormal. NRBC x10^3 (test code = 3199662478) <0.01 See_Comment [Automated inFreeDAa zePASS] The system which generated this result transmitted reference range: 10*3/?L. The reference range was not used to interpret this result as normal/abnormal. GRAN MAT (NEUT) % (test code = 770-8) 75.4 % IMM GRAN % (test code = 3556418313) 0.50 % LYMPH % (test code = 736-9) 15.8 % MONO % (test code = 5905-5) 6.8 % EOS % (test code = 713-8) 0.9 % BASO % (test code = 706-2) 0.6 % GRAN MAT x10^3(ANC) (test code = 1533974808) 6.46 10*3/uL 1.88-7.09 IMM GRAN x10^3 (test code = 5834525497) 0.04 10*3/uL 0.00-0.06 LYMPH x10^3 (test code = 731-0) 1.35 10*3/uL 1.32-3.29 MONO x10^3 (test code = 742-7) 0.58 10*3/uL 0.33-0.92 EOS x10^3 (test code = 711-2) 0.08 10*3/uL 0.03-0.39 BASO x10^3 (test code = 704-7) 0.05 10*3/uL 0.01-0.07 [facility] 02:21:06* Test Item Value Reference Range Interpretation Comme nts MAGNESIUM (test code = 6323246775) 2.0 mg/dL 1.7-2.4 Lab Interpretation (test cod e = 02358-5) [facility] METABOLIC PANEL (11067)2021-09-22 02:20:45* Test Item Value Reference Range Interpretation Comme nts NA (test code = 8549206834) 136 mmol/L 135-145 K (test code = 8400953412) 4.7 mmol/L 3.5-5.0 CL (test code = 9205591443) 106 mmol/L 98-108 CO2 TOTAL (test code = 3468891109) 17 mmol/L 23-31 L AGAP (test code = 7677679494) 2-16 BUN (test code = 3252136438) 10 mg/dL 7-23 GLUCOSE (test code = 8219475223) 99 mg/dL 70-110 CREATININE (test code = 8892595083) 0.50 mg/dL 0.50-1.04 TOTAL BILI (test code = 6030476835) 0.9 mg/dL 0.1-1.1 CALCIUM (test code = 4655033734) 8.9 mg/dL 8.6-10.6 T PROTEIN (test code = 6097131465) 8.3 g/dL 6.3-8.2 H ALBUMIN (test code = 9285254188) 4.8 g/dL 3.5-5.0 ALK PHOS (test code = 2149003975) 66 U/L 34-122 ALTv (test code = 1742-6) 22 U/L 5-35 AST(SGOT) (test code = 1474477358) 40 U/L 13-40 eGFR (test code = 8818498952) mL/min/1.73m2 PAULA (test code = PAULA) Association of [...] or abnormalities in imaging tests). Lab Interpretation (test code = 38836-3) Abnormal [facility] [id number] 01:43:00* Test Item Value Reference Range Interpretation Comme nts POCT PREG (test code = 1605) negative On board controls acceptable with C Line (test code = 3574) present POCT PREG LOT # (test code = 3575) [id number] POCT PREG TEST DATE ( test code = 3576) 2022-08-23 Lab Interpretation (test cod e = 38779-1) [facility] [id number] 12:15:08* Test Item Value Reference Range Interpretation Comments TROPONIN I (test code = 6749945882) 0.009 ng/mL See_Comment [Automated message] The system which generated this result transmitted reference range: <=0.034. The reference range was not used to interpret this result as normal/abnormal. PAULA (test code = PAULA) Reference (Normal) [...] to patient's use of biotin. Lab Interpretation (test code = 00609-1) [facility] HospitalD-[id number] 10:51:58* Test Item Value Reference Range Interpretation Comments D-DIMER (test code = 9058376304) See_Comment H [Automated message] The system which generated this result transmitted reference range: <0.41 ?g/mL (FEU). The reference range was not used to interpret this result as normal/abnormal. PAULA (test code = PAULA) This test may be used in conjunction with a clinical pretest [...] context, in forming a diagnosis. Lab Interpretation (test code = 26865-5) Abnormal [facility] WITH [id number] 10:39:17* Test Item Value Reference Range Interpretation Comme nts WBC (test code = 6690-2) See_Comment [Automated inFreeDAa ge] The system which generated this result transmitted reference range: 4.30 - 11.10 10*3/?L. The reference range was not used to interpret this result as normal/abnormal. RBC (test code = 789-8) See_Comment [Automated inFreeDAa ge] The system which generated this result transmitted reference range: 3.93 - 5.25 10*6/?L. The reference range was not used to interpret this result as normal/abnormal. HGB (test code = 718-7) 13.5 g/dL 11.6-15.0 HCT (test code = 4544-3) 40.8 % 35.7-45.2 MCV (test code = 787-2) 88.9 fL 80.6-95.5 MCH (test code = 785-6) 29.4 pg 25.9-32.8 MCHC (test code = 786-4) 33.1 g/dL 31.6-35.1 RDW-SD (test code = 12097-6) 51.8 fL 39.0-49.9 H RDW-CV (test code = 788-0) 15.7 % 12.0-15.5 H PLT (test code = 777-3) See_Comment [Automated inFreeDAa ge] The system which generated this result transmitted reference range: 166 - 358 10*3/?L. The reference range was not used to interpret this result as normal/abnormal. MPV (test code = 41060-6) 10.2 fL 9.5-12.9 IPF % (test code = 0575977124) 1.9 % 1.3-7.7 Platelet count measured by fluorescence method. NRBC/100 WBC (test code = 4248130878) See_Comment [Automated Rocketrip ssage] The system which generated this result transmitted reference range: 0.0 - 10.0 /100 WBCs. The reference range was not used to interpret this result as normal/abnormal. NRBC x10^3 (test code = 6246946614) <0.01 See_Comment [Automated messa ge] The system which generated this result transmitted reference range: 10*3/?L. The reference range was not used to interpret this result as normal/abnormal. GRAN MAT (NEUT) % (test code = 770-8) 63.4 % IMM GRAN % (test code = 9531841645) 0.20 % LYMPH % (test code = 736-9) 24.2 % MONO % (test code = 5905-5) 10.4 % EOS % (test code = 713-8) 0.9 % BASO % (test code = 706-2) 0.9 % GRAN MAT x10^3(ANC) (test code = 6135891102) 3.34 10*3/uL 1.88-7.09 IMM GRAN x10^3 (test code = 1953010171) <0.03 0.00-0.06 LYMPH x10^3 (test code = 731-0) 1.28 10*3/uL 1.32-3.29 L MONO x10^3 (test code = 742-7) 0.55 10*3/uL 0.33-0.92 EOS x10^3 (test code = 711-2) 0.05 10*3/uL 0.03-0.39 BASO x10^3 (test code = 704-7) 0.05 10*3/uL 0.01-0.07 PLT ESTIMATE (test code = 9317-9) Normal Normal Lab Interpretation (test code = 03659-9) Abnormal [facility] [id number] 10:26:56* Test Item Value Reference Range Interpretation Comments TROPONIN I (test code = 9895531118) 0.011 ng/mL See_Comment [Automated message] The system which generated this result transmitted reference range: <=0.034. The reference range was not used to interpret this result as normal/abnormal. PAULA (test code = PAULA) Reference (Normal) [...] to patient's use of biotin. Lab Interpretation (test code = 34945-7) Normal [facility]. METABOLIC PANEL (25278)2021-03-25 10:15:34* Test Item Value Reference Range Interpretation Comme nts NA (test code = 8753901285) 141 mmol/L 135-145 K (test code = 6199766145) 3.7 mmol/L 3.5-5.0 CL (test code = 5498453809) 108 mmol/L 98-108 CO2 TOTAL (test code = 2381408060) 23 mmol/L 23-31 AGAP (test code = 9560679023) 2-16 BUN (test code = 6708903918) 6 mg/dL 7-23 L GLUCOSE (test code = 7256578007) 108 mg/dL 70-110 CREATININE (test code = 9873107301) 0.65 mg/dL 0.50-1.04 TOTAL BILI (test code = 5548399543) 0.4 mg/dL 0.1-1.1 CALCIUM (test code = 1841925774) 8.7 mg/dL 8.6-10.6 T PROTEIN (test code = 8502237634) 7.9 g/dL 6.3-8.2 ALBUMIN (test code = 3374955970) 4.3 g/dL 3.5-5.0 ALK PHOS (test code = 3023888764) 72 U/L 34-122 ALTv (test code = 1742-6) 31 U/L 5-35 AST(SGOT) (test code = 4030797995) 45 U/L 13-40 H eGFR (test code = 7094982776) mL/min/1.73m2 PAULA (test code = PAULA) Association of [...] or abnormalities in imaging tests). Lab Interpretation (test code = 45191-3) [facility] 10:15:34* Test Item Value Reference Range Interpretation Comme [facility] LIPASE (test code = 5671995340) 54 U/L 0-220 Lab Interpretation (test cod e = 40216-8) Normal [facility] HospitalaPTT (for use with Heparin Drip)2020-11-23 11:10:10* Test Item Value Reference Range Interpretation Comme [facility] APTT Patient (test code = 3173-2) See_Comment H [Automated inFreeDAa ge] The system which generated this result transmitted reference range: 26 - 36 Seconds. The reference range was not used to interpret this result as normal/abnormal. Lab Interpretation (test code = 77933-7) Abnormal [facility] HospitalBasi Metabolic Panel (NA, K, CL, CO2, GLUCOSE, BUN, CREATININE, CA)2020-11-23 05:36:05* Test Item Value Reference Range Interpretation Comme [facility] NA (test code = 3528690080) 133 mmol/L 135-145 L K (test code = 3519296588) 3.6 mmol/L 3.5-5.0 CL (test code = 3660033018) 105 mmol/L 98-108 CO2 TOTAL (test code = 7613052630) 24 mmol/L 23-31 AGAP (test code = 9689965643) 2-16 BUN (test code = 0452787994) 11 mg/dL 7-23 GLUCOSE (test code = 4738653422) 104 mg/dL 70-110 CREATININE (test code = 4050444168) 0.64 mg/dL 0.50-1.04 CALCIUM (test code = 8261503893) 8.4 mg/dL 8.6-10.6 L eGFR (test code = 8872485841) mL/min/1.73m2 PAULA (test code = PAULA) Association of [...] or abnormalities in imaging tests). Lab Interpretation (test code = 36540-1) Abnormal [facility] HospitalMagnesium [id number] 05:36:05* Test Item Value Reference Range Interpretation Comme nts MAGNESIUM (test code = 5926624555) 2.1 mg/dL 1.7-2.4 Lab Interpretation (test cod e = 48514-3) Normal [facility] HospitalaPTT (for use with Heparin Drip)2020-11-23 05:25:43* Test Item Value Reference Range Interpretation Comme [facility] APTT Patient (test code = 3173-2) See_Comment H [Automated messa ge] The system which generated this result transmitted reference range: 26 - 36 Seconds. The reference range was not used to interpret this result as normal/abnormal. Lab Interpretation (test code = 64335-0) [facility]normal [facility] Hospital[facility] with [id number] 05:11:43* Test Item Value Reference Range Interpretation Comme [facility] WBC (test code = 6690-2) See_Comment [Automated messa ge] The system which generated this result transmitted reference range: 4.30 - 11.10 10*3/?L. The reference range was not used to interpret this result as normal/abnormal. RBC (test code = 789-8) See_Comment [Automated messa ge] The system which generated this result transmitted reference range: 3.93 - 5.25 10*6/?L. The reference range was not used to interpret this result as normal/abnormal. HGB (test code = 718-7) 12.5 g/dL 11.6-15.0 HCT (test code = 4544-3) 37.6 % 35.7-45.2 MCV (test code = 787-2) 91.5 fL 80.6-95.5 MCH (test code = 785-6) 30.4 pg 25.9-32.8 MCHC (test code = 786-4) 33.2 g/dL 31.6-35.1 RDW-SD (test code = 49263-6) 43.7 fL 39.0-49.9 RDW-CV (test code = 788-0) 13.1 % 12.0-15.5 PLT (test code = 777-3) See_Comment [Automated messa ge] The system which generated this result transmitted reference range: 166 - 358 10*3/?L. The reference range was not used to interpret this result as normal/abnormal. MPV (test code = 53739-3) 9.2 fL 9.5-12.9 L NRBC/100 WBC (test code = 0162284482) See_Comment [Automated me ssage] The system which generated this result transmitted reference range: 0.0 - 10.0 /100 WBCs. The reference range was not used to interpret this result as normal/abnormal. NRBC x10^3 (test code = 1252827171) <0.01 See_Comment [Automated messa ge] The system which generated this result transmitted reference range: 10*3/?L. The reference range was not used to interpret this result as normal/abnormal. GRAN MAT (NEUT) % (test code = 770-8) 58.2 % IMM GRAN % (test code = 6079558303) 0.50 % LYMPH % (test code = 736-9) 28.4 % MONO % (test code = 5905-5) 8.9 % EOS % (test code = 713-8) 3.3 % BASO % (test code = 706-2) 0.7 % GRAN MAT x10^3(ANC) (test code = 6981672199) 3.53 10*3/uL 1.88-7.09 IMM GRAN x10^3 (test code = 1673942532) 0.03 10*3/uL 0.00-0.06 LYMPH x10^3 (test code = 731-0) 1.72 10*3/uL 1.32-3.29 MONO x10^3 (test code = 742-7) 0.54 10*3/uL 0.33-0.92 EOS x10^3 (test code = 711-2) 0.20 10*3/uL 0.03-0.39 BASO x10^3 (test code = 704-7) 0.04 10*3/uL 0.01-0.07 Lab Interpretation (test code = 70185-5) [facility]normal [facility] HospitalXR [facility] 1 [id number] 00:27:06No acute cardiopulmonary abnormality. Preliminary Report Dictated by [...] EXAM: XR CHEST 1 VWCLINICAL INDICATION: chest painCOMPARISON: 10/22/2020FINDINGS:The lungs are well-expanded and clear without focal consolidation, pleuraleffusion, or pneumothorax. The cardiac silhouette is normal in size. No acute osseous abnormality. IMPRESSIONNo acute cardiopulmonary abnormality.Preliminary Report Dictated by Resident: Chaka Gutierrez, Navin Ordonez MD., have reviewed this study and agree with theabove report.[facility] HospitalTHYROID STIMULATING IVOMKPM5368-10-84 22:15:04* Test Item Value Reference Range Interpretation Comme nts TSH (test code = 5319099549) See_Comment [Automated messa zePASS] The system which generated this result transmitted reference range: 0.45 - 4.70 mIU/L. The reference range was not used to interpret this result as normal/abnormal. Lab Interpretation (test code = 54072-9) Normal [facility] HospitalGLYCOSYLATED HEMOGLOBIN (A1C)2020-11-22 22:14:59* Test Item Value Reference Range Interpretation Comme nts HGB A1C (test code = 4548-4) 5.1 % 4.0-5.7 PAULA (test code = PAULA) Reference RangesNormal: <5.7%Prediabetes: 5.7 - 6.4%Diabetes: > 6.5% Lab Interpretation (test code = 95159-4) Normal [facility] HospitalFREE [id number] 22:01:07* Test Item Value Reference Range Interpretation Comme nts FREE T4 (test code = 3947771917) See_Comment [Automated inFreeDAa zePASS] The system which generated this result transmitted reference range: 0.78 - 2.20 ng/dL:. The reference range was not used to interpret this result as normal/abnormal. Lab Interpretation (test code = 91281-0) Normal [facility] HospitalLIPID PANEL (14008)(TOTAL CHOLESTEROL, TRIGLYCERIDES, HDL)2020-11-22 21:44:08* Test Item Value Reference Range Interpretation Comme nts CHOL (test code = 6156310074) 279 mg/dL 120-200 H HDL (test code = 5101455720) 85 mg/dL >50 HDLC RATIO (test code = 0471478898) See_Comment [Automated [employer]] The system which generated this result transmitted reference range: <=4.5. The reference range was not used to interpret this result as normal/abnormal. TRIG (test code = 0595898382) 312 mg/dL 30-170 H LDL CHOL (test code = 77803-6) 132 mg/dL See_Comment [Automated [employer] zePASS] The system which generated this result transmitted reference range: <=160. The reference range was not used to interpret this result as normal/abnormal. VLDL (test code = 8250381713) 62 mg/dL 5-60 H Lab Interpretation (test code = 76182-4) [facility] [id number] 21:04:531. ?No acute aortic syndrome. No pulmonary emboli. [...] thyroid gland are normal. LUNGS: Mild bibasilar subsegmentaldependent atelectasis. The lungs areotherwise clear. PLEURA: No [...] gland are normal.LUNGS: Mild bibasilar subsegmental dependent at electasis. The lungs areotherwise clear.PLEURA: No pleural effusion or pneumothorax.CENTRAL AIRWAY:No bronchiectasis, mucus plugging, or bronchial wallthickening.MEDIASTINUM: No mediastinal lymphadenopathy. Normal cardiac morphology. Nopericardial effusion. BONES AND SOFT TISSUES: No suspicious lytic or blastic skeletal lesions.VISUALIZED UPPER ABDOMEN: Small type III hiatal hernia. IMPRESSION1.No acute aortic syndrome. No pulmonary emboli.2. Small type III hiatal hernia.Preliminary Report Dictated by Resident: Chaka Gutierrez, Navin Ordonez MD., have reviewed this study and agree with theabove report.[facility] [id number] 20:12:00* Test Item Value Reference Range Interpretation Comme nts TROPONIN I (test code = 8072258278) 0.014 ng/mL See_Comment [Automated message] The system which generated this result transmitted reference range: <=0.034. The reference range was not used to interpret this result as normal/abnormal. PAULA (test code = PAULA) Equal or Less than 0.034 ng/ml---Normal ?Note: Cardiac [...] patient's use of biotin. ? Lab Interpretation (test code = 12166-4) Normal [facility] (ID NOW RAPID TESTING)2020-11-22 19:49:57* Test Item Value Reference Range Interpretation Comme nts SARS-CoV-2 Rapid ID NOW (test code = 66016-5) Not Detected Not Detected PAULA (test code = PAULA) ID NOW COVID-19 As say is an isothermal nucleic acid amplification test intended for the qualitative detection of nucleic acid from SARS-CoV-2 viral RNA in nasopharyngeal (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 It is used under Emergency Use [...] patient testing if clinically indicated. Lab Interpretation (test code = 60380-6) Normal [facility]PO[facility] [id number] 19:43:00* Test Item Value Reference Range Interpretation Comme nts POCT PREG (test code = 1605) negative On board controls acceptable with C Line (test code = 3574) present POCT PREG LOT # (test code = 3575) [id number] POCT PREG TEST DATE ( test code = 3576) 05-25-2022 Lab Interpretation (test cod e = 45551-1) Normal [facility] HospitalTROPONIN [id number] 15:52:28* Test Item Value Reference Range Interpretation Comme nts TROPONIN I (test code = 6277053253) 0.047 ng/mL See_Comment H [Automated message] The system which generated this result transmitted reference range: <=0.034. The reference range was not used to interpret this result as normal/abnormal. PAULA (test code = PAULA) Equal or Less than 0.034 ng/ml---Normal ?Note: Cardiac [...] patient's use of biotin. ? Lab Interpretation (test code = 41421-2) Abnormal [facility] (IMMUNOASSAY) - COMPREHENSIVE DRUG [id number] 15:24:44* Test Item Value Reference Range Interpretation Comme nts AMPHET (test code = 8459740209) Presumptive Positive Negative A ANN U (test code = 4130348784) Negative Negative BENZO U (test code = 5507453780) Negative Negative Cocaine Metabolite (test code = 6147603395) Negative Negative METHADONE (test code = 5341453112) Negative Negative OPIATES (test code = 1551037140) Negative Negative PCP (test code = 2507362142) Negative Negative THC (test code = 6964423405) Negative Negative PAULA (test code = PAULA) Urine Drug [...] employment testing, legal testing). Lab Interpretation (test code = 01491-1) Abnormal [facility] HospitalCK (CREATINE KINASE) + [id number] 13:16:38* Test Item Value Reference Range Interpretation Comme nts CK (test code = 2756240846) 751 U/L 33-194 H CK-MB (test code = 8341437507) 6.00 ng/mL See_Comment H [Automated message] The system which generated this result transmitted reference range: <=3.50. The reference range was not used to interpret this result as normal/abnormal. CKMB INDEX (test code = 2318055787) 0.8 % 0.0-2.5 PAULA (test code = PAULA) Biotin has been reported to cause a negative bias, interpret results relative to patient's use of biotin. Lab Interpretation (test code = 44215-6) Abnormal [facility] HospitalTROPONIN [id number] 13:16:38* Test Item Value Reference Range Interpretation Comme nts TROPONIN I (test code = 2821079223) 0.008 ng/mL See_Comment [Automated message] The system which generated this result transmitted reference range: <=0.034. The reference range was not used to interpret this result as normal/abnormal. PAULA (test code = PAULA) Equal or Less than 0.034 ng/ml---Normal ?Note: Cardiac [...] patient's use of biotin. ? Lab Interpretation (test code = 08576-3) Normal [facility] DRUG (IMMUNOASSAY) - COMPREHENSIVE DRUG [id number] 13:13:47* Test Item Value Reference Range Interpretation Comme nts ANN S (test code = 7243012570) Negative Negative BENZO S (test code = 6887996267) Negative Negative TRICYCLIC (test code = 5889403426) Negative Negative PAULA (test code = PAULA) Serum Drug Screen Cutoff Ranges Barbiturates ? ? - 3 mcg/mLBenzodiazepines ?- 50 ng/mLTCA ?- 300 ng/mL Test developed and characteristics determined by [facility]. The results are to be used only for medical (i.e., treatment) purposes. Unconfirmed screening results must not be used for non-medical purposes (e.g., employment testing, legal testing). Lab Interpretation (test code = 24011-2) Normal [facility] HospitalURINALYSIS2021-05-30 13:13:32* Test Item Value Reference Range Interpretation Comme nts APPEARANCE (test code = 9769754255) Clear Clear COLOR (test code = 6786140642) Colorless Yellow A PH (test code = 2372837629) 4.8-8.0 SP GRAVITY (test code = 7165757651) 1.003-1.030 L GLU U QUAL (test code = 3262646768) Normal Normal BLOOD (test code = 1133095757) 1+ Negative A KETONES (test code = 8692801975) Negative Negative PROTEIN (test code = 2887-8) Negative Negative UROBILIN (test code = 6139461579) Normal Normal BILIRUBIN (test code = 0910691908) Negative Negative NITRITE (test code = 9369082441) Negative Negative LEUK JONATHON (test code = 4086516027) Negative Negative RBC/HPF (test code = 9371938592) See_Comment [Automated [employer]] The system which generated this result transmitted reference range: 0 - 3 HPF. The reference range was not used to interpret this result as normal/abnormal. WBC/HPF (test code = 1168425174) <1 See_Comment [Automated [employer]] The system which generated this result transmitted reference range: 0 - 5 HPF. The reference range was not used to interpret this result as normal/abnormal. BACTERIA (test code = 8311377437) Negative Negative AMORPHOUS (test code = 0118949638) Rare Rare HPF Lab Interpretation (test code = 26232-3) Abnormal [facility] HospitalD-FHCIH5376-71-35 13:09:19* Test Item Value Reference Range Interpretation Comments D-DIMER (test code = 0424512027) See_Comment [Automated message] The system which generated this result transmitted reference range: <0.50 ?g/mL (FEU). The reference range was not used to interpret this result as normal/abnormal. PAULA (test code = PAULA) This test may be used in conjunction with a clinical pretest [...] context, in forming a diagnosis. Lab Interpretation (test code = 16134-7) Normal [facility]. METABOLIC PANEL (07876)2020-11-22 13:06:21* Test Item Value Reference Range Interpretation Comme nts NA (test code = 6724106901) 139 mmol/L 135-145 K (test code = 5550319712) 4.1 mmol/L 3.5-5.0 CL (test code = 8081121529) 106 mmol/L 98-108 CO2 TOTAL (test code = 0488336320) 20 mmol/L 23-31 L AGAP (test code = 4662760694) 2-16 BUN (test code = 4094097380) 12 mg/dL 7-23 GLUCOSE (test code = 1078706628) 92 mg/dL 70-110 CREATININE (test code = 4453535068) 0.58 mg/dL 0.50-1.04 TOTAL BILI (test code = 7974702125) 0.2 mg/dL 0.1-1.1 CALCIUM (test code = 2076472315) 9.4 mg/dL 8.6-10.6 T PROTEIN (test code = 4637710723) 7.6 g/dL 6.3-8.2 ALBUMIN (test code = 1527383763) 4.5 g/dL 3.5-5.0 ALK PHOS (test code = 6662488531) 70 U/L 34-122 ALTv (test code = 1742-6) 14 U/L 5-35 AST(SGOT) (test code = 8440352778) 29 U/L 13-40 eGFR (test code = 8576410630) mL/min/1.73m2 PAULA (test code = PAULA) Association of [...] or abnormalities in imaging tests). Lab Interpretation (test code = 12945-2) Abnormal [facility] HospitalETHANOL2021-05-30 13:06:21* Test Item Value Reference Range Interpretation Comme nts ALCOHOL (test code = 0985668772) 112 mg/dL PAULA (test code = PAULA) Toxic Greater than or equal to 80 mg/dL. NOTE: Whole blood values are approximately 10% to 15% lower than serum and plasma. [facility] HospitalLIPASE2021-[facility]-30 13:06:21* Test Item Value Reference Range Interpretation Comme nts LIPASE (test code = 5782408164) 118 U/L 0-220 Lab Interpretation (test cod e = 64448-8) Normal [facility] HospitalCB WITH [id number] 13:00:59* Test Item Value Reference Range Interpretation Comme nts WBC (test code = 6690-2) See_Comment [Automated [employer]] The system which generated this result transmitted reference range: 4.30 - 11.10 10*3/?L. The reference range was not used to interpret this result as normal/abnormal. RBC (test code = 789-8) See_Comment [Automated in[employer] zePASS] The system which generated this result transmitted reference range: 3.93 - 5.25 10*6/?L. The reference range was not used to interpret this result as normal/abnormal. HGB (test code = 718-7) 13.2 g/dL 11.6-15.0 HCT (test code = 4544-3) 40.7 % 35.7-45.2 MCV (test code = 787-2) 92.1 fL 80.6-95.5 MCH (test code = 785-6) 29.9 pg 25.9-32.8 MCHC (test code = 786-4) 32.4 g/dL 31.6-35.1 RDW-SD (test code = 14047-8) 44.0 fL 39.0-49.9 RDW-CV (test code = 788-0) 13.0 % 12.0-15.5 PLT (test code = 777-3) See_Comment [Automated messa ge] The system which generated this result transmitted reference range: 166 - 358 10*3/?L. The reference range was not used to interpret this result as normal/abnormal. MPV (test code = 57264-4) 9.9 fL 9.5-12.9 NRBC/100 WBC (test code = 3051525068) See_Comment [Automated me ssage] The system which generated this result transmitted reference range: 0.0 - 10.0 /100 WBCs. The reference range was not used to interpret this result as normal/abnormal. NRBC x10^3 (test code = 9714475978) <0.01 See_Comment [Automated me ssage] The system which generated this result transmitted reference range: 10*3/?L. The reference range was not used to interpret this result as normal/abnormal. GRAN MAT (NEUT) % (test code = 770-8) 57.8 % IMM GRAN % (test code = 2299999726) 0.30 % LYMPH % (test code = 736-9) 31.0 % MONO % (test code = 5905-5) 8.7 % EOS % (test code = 713-8) 1.5 % BASO % (test code = 706-2) 0.7 % GRAN MAT x10^3(ANC) (test code = 5028523947) 3.37 10*3/uL 1.88-7.09 IMM GRAN x10^3 (test code = 8122010276) <0.03 0.00-0.06 LYMPH x10^3 (test code = 731-0) 1.81 10*3/uL 1.32-3.29 MONO x10^3 (test code = 742-7) 0.51 10*3/uL 0.33-0.92 EOS x10^3 (test code = 711-2) 0.09 10*3/uL 0.03-0.39 BASO x10^3 (test code = 704-7) 0.04 10*3/uL 0.01-0.07 [facility] HospitalDRUG PANEL 2 [id number] 11:58:10* Test Item Value Reference Range Interpretation Comme nts AMPHET (test code = 5500147037) Negative Negative ANN U (test code = 9590975674) Negative Negative BENZO U (test code = 2167390585) Negative Negative Cocaine Metabolite (test code = 1415737494) Negative Negative METHADONE (test code = 3942685523) Negative Negative OPIATES (test code = 8222067019) Negative Negative PCP (test code = 2374190688) Negative Negative THC (test code = 2351898811) Negative Negative PAULA (test code = PAULA) Urine Drug [...] employment testing, legal testing). Lab Interpretation (test code = 43389-5) Normal [facility] HospitalUrinalysis2021-04-29 10:57:49* Test Item Value Reference Range Interpretation Comme nts APPEARANCE (test code = 8974073828) Clear Clear COLOR (test code = 4011774899) Colorless Yellow A PH (test code = 2767365822) 4.8-8.0 SP GRAVITY (test code = 6298999005) 1.003-1.030 GLU U QUAL (test code = 7889301807) Normal Normal BLOOD (test code = 9812021725) 2+ Negative A KETONES (test code = 8932086131) Negative Negative PROTEIN (test code = 2887-8) Negative Negative UROBILIN (test code = 6454079497) Normal Normal BILIRUBIN (test code = 2467734241) Negative Negative NITRITE (test code = 5498329928) Negative Negative LEUK JONATHON (test code = 0632591740) Negative Negative RBC/HPF (test code = 7136767680) See_Comment H [Automated in[employer]DAa ge] The system which generated this result transmitted reference range: 0 - 3 HPF. The reference range was not used to interpret this result as normal/abnormal. WBC/HPF (test code = 0617609727) <1 See_Comment [Automated [employer]a ge] The system which generated this result transmitted reference range: 0 - 5 HPF. The reference range was not used to interpret this result as normal/abnormal. BACTERIA (test code = 4873039504) Negative Negative SQ EPITH (test code = 6123177173) <1 See_Comment [Automated in[employer]DAa ge] The system which generated this result transmitted reference range: <=2 HPF. The reference range was not used to interpret this result as normal/abnormal. ASCORBIC ACID (test code = 7086673688) Negative Lab Interpretation (test code = 43775-1) Abnormal [facility] [id number] 10:29:23* Test Item Value Reference Range Interpretation Comme nts TROPONIN I (test code = 7128605259) 0.005 ng/mL See_Comment [Automated message] The system which generated this result transmitted reference range: <=0.034. The reference range was not used to interpret this result as normal/abnormal. PAULA (test code = PAULA) Equal or Less than 0.034 ng/ml---Normal ?Note: Cardiac [...] patient's use of biotin. ? Lab Interpretation (test code = 18800-0) Normal [facility] HospitalPOCT [id number] 10:12:00* Test Item Value Reference Range Interpretation Comme nts POCT PREG (test code = 1605) negative On board controls acceptable with C Line (test code = 3574) present POCT PREG LOT # (test code = 3575) HCG Lab Interpretation (test cod e = 00505-3) Normal [facility] HospitalTroponin [id number] 08:15:07* Test Item Value Reference Range Interpretation Comme nts TROPONIN I (test code = 7386393983) 0.007 ng/mL See_Comment [Automated message] The system which generated this result transmitted reference range: <=0.034. The reference range was not used to interpret this result as normal/abnormal. PAULA (test code = PAULA) Equal or Less than 0.034 ng/ml---Normal ?Note: Cardiac [...] patient's use of biotin. ? Lab Interpretation (test code = 45362-6) Normal [facility] HospitalCOVID-19 (ID NOW RAPID TESTING)2020-10-22 08:08:44* Test Item Value Reference Range Interpretation Comme nts SARS-CoV-2 Rapid ID NOW (test code = 74705-3) Not Detected Not Detected PAULA (test code = PAULA) ID NOW COVID-19 As say is an isothermal nucleic acid amplification test intended for the qualitative detection of nucleic acid from SARS-CoV-2 viral RNA in nasopharyngeal (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 It is used under Emergency Use [...] patient testing if clinically indicated. Lab Interpretation (test code = 35476-2) Normal [facility] Metabolic Panel (NA, K, CL, CO2, GLUCOSE, BUN, CREATININE, CA)2020-10-22 08:00:24* Test Item Value Reference Range Interpretation Comme nts NA (test code = 6838465742) 136 mmol/L 135-145 K (test code = 9025370065) 5.1 mmol/L 3.5-5.0 H Slight hemolysis CL (test code = 5357884054) 107 mmol/L 98-108 CO2 TOTAL (test code = 0655221278) 22 mmol/L 23-31 L AGAP (test code = 5779568323) 2-16 BUN (test code = 2068865029) 10 mg/dL 7-23 Slight hemolysis GLUCOSE (test code = 7860583833) 107 mg/dL 70-110 CREATININE (test code = 1342969036) 0.56 mg/dL 0.50-1.04 CALCIUM (test code = 9409586633) 8.6 mg/dL 8.6-10.6 eGFR (test code = 7495743629) mL/min/1.73m2 PAULA (test code = PAULA) Association of [...] or abnormalities in imaging tests). Lab Interpretation (test code = 81562-1) Abnormal [facility] HospitalHepatic Function Panel (ALB, T.PRO, BILI T, BU/BC, ALT, AST, ALK PHOS)2020-10-22 08:00:24* Test Item Value Reference Range Interpretation Comme nts TOTAL BILI (test code = 0643440652) 0.3 mg/dL 0.1-1.1 BILI UNCON (test code = 3159907772) 0.1 mg/dL 0.1-1.1 BILI CONJ (test code = 3299431390) 0.0 mg/dL 0.0-0.3 T PROTEIN (test code = 3592932034) 7.0 g/dL 6.3-8.2 ALBUMIN (test code = 2245670175) 3.9 g/dL 3.5-5.0 ALK PHOS (test code = 7389757234) 112 U/L 34-122 ALTv (test code = 1742-6) 292 U/L 5-35 H AST(SGOT) (test code = 3661490703) 322 U/L 13-40 H Lab Interpretation (test cod e = 65885-9) Abnormal [facility] HospitalEthanol Foltn5023-08-87 08:00:24* Test Item Value Reference Range Interpretation Comme nts ALCOHOL (test code = 6877434310) 67 mg/dL PAULA (test code = PAULA) Toxic Greater than or equal to 80 mg/dL. NOTE: Whole blood values are approximately 10% to 15% lower than serum and plasma. [facility] HospitalLipase [id number] 08:00:24* Test Item Value Reference Range Interpretation Comme nts LIPASE (test code = 0978476168) 165 U/L 0-220 Lab Interpretation (test cod e = 18669-3) Normal [facility] HospitalCBC with Lzrgjiwqbscf5879-87-57 07:55:00* Test Item Value Reference Range Interpretation Comme nts WBC (test code = 6690-2) See_Comment [Automated [employer] zePASS] The system which generated this result transmitted reference range: 4.30 - 11.10 10*3/?L. The reference range was not used to interpret this result as normal/abnormal. RBC (test code = 789-8) See_Comment [Automated [employer] zePASS] The system which generated this result transmitted reference range: 3.93 - 5.25 10*6/?L. The reference range was not used to interpret this result as normal/abnormal. HGB (test code = 718-7) 13.1 g/dL 11.6-15.0 HCT (test code = 4544-3) 38.8 % 35.7-45.2 MCV (test code = 787-2) 90.4 fL 80.6-95.5 MCH (test code = 785-6) 30.5 pg 25.9-32.8 MCHC (test code = 786-4) 33.8 g/dL 31.6-35.1 RDW-SD (test code = 54368-4) 43.8 fL 39.0-49.9 RDW-CV (test code = 788-0) 13.2 % 12.0-15.5 PLT (test code = 777-3) See_Comment [Automated messa ge] The system which generated this result transmitted reference range: 166 - 358 10*3/?L. The reference range was not used to interpret this result as normal/abnormal. MPV (test code = 62207-3) 9.2 fL 9.5-12.9 L NRBC/100 WBC (test code = 6571672530) See_Comment [Automated [employer] ssage] The system which generated this result transmitted reference range: 0.0 - 10.0 /100 WBCs. The reference range was not used to interpret this result as normal/abnormal. NRBC x10^3 (test code = 2810388033) <0.01 See_Comment [Automated messa ge] The system which generated this result transmitted reference range: 10*3/?L. The reference range was not used to interpret this result as normal/abnormal. GRAN MAT (NEUT) % (test code = 770-8) 64.0 % IMM GRAN % (test code = 3523964699) 0.40 % LYMPH % (test code = 736-9) 24.3 % MONO % (test code = 5905-5) 8.9 % EOS % (test code = 713-8) 1.4 % BASO % (test code = 706-2) 1.0 % GRAN MAT x10^3(ANC) (test code = 5753930645) 3.18 10*3/uL 1.88-7.09 IMM GRAN x10^3 (test code = 6838179562) <0.03 0.00-0.06 LYMPH x10^3 (test code = 731-0) 1.21 10*3/uL 1.32-3.29 L MONO x10^3 (test code = 742-7) 0.44 10*3/uL 0.33-0.92 EOS x10^3 (test code = 711-2) 0.07 10*3/uL 0.03-0.39 BASO x10^3 (test code = 704-7) 0.05 10*3/uL 0.01-0.07 Lab Interpretation (test code = 48311-2) Abnormal [facility] 2 Hmasa4446-34-70 18:12:05No acute cardiopulmonary abnormality. Preliminary Report Dictated by Resident: Kevyn Mills MD., have reviewed this study and agree with theabove report.EXAM: XR CHEST 2 VW10/15/2020 8:46 AM HISTORY: 40 years-old Female with [...] 10/15/2020 8:46 AMHISTORY: 40 years-old Female with CP COMPARISON: Chest x-ray 09/25/2020FINDINGS:Lungs: The lungs are clear. No focal opacities. No pleural abnormalitiesare detected.Heart/Mediastinum: The cardiomediastinal silhouette is normal in siz e.Musculoskeletal: Lower cervical spine uncovertebral and facet arthropathywith mild spondylosis are partially visualized.IMPRESSIONNo acute cardiopulmonary abnormality.Preliminary Report Dictated byResident: Kevyn Parada MD., have reviewed this study and agree with theabove report. [facility] HospitalCREATINE [id number] 17:21:00* Test Item Value Reference Range Interpretation Comme nts CK (test code = 8289857976) 765 U/L 33-194 H Lab Interpretation (test cod e = 45928-9) Abnormal [facility] HospitalLipase Adjse5497-48-15 17:20:59* Test Item Value Reference Range Interpretation Comme nts LIPASE (test code = 0401122589) 135 U/L 0-220 Lab Interpretation (test cod e = 88198-9) Normal [facility] HospitalTroponin [id number] 16:25:05* Test Item Value Reference Range Interpretation Comme nts TROPONIN I (test code = 2434877739) 0.007 ng/mL See_Comment [Automated message] The system which generated this result transmitted reference range: <=0.034. The reference range was not used to interpret this result as normal/abnormal. PAULA (test code = PAULA) Equal or Less than 0.034 ng/ml---Normal ?Note: Cardiac [...] patient's use of biotin. ? Lab Interpretation (test code = 65355-3) Normal [facility] HospitalN-TERMINAL [id number]-[id number] 16:25:04* Test Item Value Reference Range Interpretation Comme nts NT-proBNP (test code = 7001103481) 178 pg/mL See_Comment H [Automated message] The system which generated this result transmitted reference range: <=125. The reference range was not used to interpret this result as normal/abnormal. PAULA (test code = PAULA) Biotin has been reported to cause a negative bias, interpret results relative to patient's use of biotin. Lab Interpretation (test code = 90247-9) Abnormal [facility] HospitalBasi Metabolic Panel (NA, K, CL, CO2, GLUCOSE, BUN, CREATININE, CA)2020-10-15 16:13:24* Test Item Value Reference Range Interpretation Comme nts NA (test code = 9601027464) 135 mmol/L 135-145 K (test code = 9391518381) 4.0 mmol/L 3.5-5.0 Slight hemolysis CL (test code = 2717981266) 109 mmol/L 98-108 H CO2 TOTAL (test code = 8606919534) 21 mmol/L 23-31 L AGAP (test code = 3881993938) 2-16 BUN (test code = 0315292941) 11 mg/dL 7-23 Slight hemolysis GLUCOSE (test code = 5090566987) 98 mg/dL 70-110 CREATININE (test code = 5532097487) 0.54 mg/dL 0.50-1.04 CALCIUM (test code = 9966590650) 8.1 mg/dL 8.6-10.6 L eGFR (test code = 5491957239) mL/min/1.73m2 PAULA (test code = PAULA) Association of [...] or abnormalities in imaging tests). Lab Interpretation (test code = 43861-8) Abnormal [facility] HospitalHepatic Function Panel (ALB, T.PRO, BILI T, BU/BC, ALT, AST, ALK PHOS)2020-10-15 16:13:24* Test Item Value Reference Range Interpretation Comme nts TOTAL BILI (test code = 6874442389) 0.3 mg/dL 0.1-1.1 BILI UNCON (test code = 7925629180) 0.1 mg/dL 0.1-1.1 BILI CONJ (test code = 2982132222) 0.0 mg/dL 0.0-0.3 T PROTEIN (test code = 7178396987) 6.0 g/dL 6.3-8.2 L ALBUMIN (test code = 8903582112) 3.2 g/dL 3.5-5.0 L ALK PHOS (test code = 1038502561) 59 U/L 34-122 ALTv (test code = 1742-6) 74 U/L 5-35 H AST(SGOT) (test code = 7703591177) 100 U/L 13-40 H Lab Interpretation (test cod e = 98934-4) Abnormal [facility] HospitalPregnancy Test, Lyiuy5608-40-13 16:12:38* Test Item Value Reference Range Interpretation Comme nts PREG SERUM (test code = 6983002790) Negative PAULA (test code = PAULA) Less than 10 IU/L. ?If low titer or ectopic is suspected, resubmit specimen in 48-72 hours. [facility] HospitalTroponin [id number] 14:29:39TROPONIN IComment: Possible Contaminated specimen. ?Talked to Dr Mai to reorder Troponin and BNP. This is a corrected result. ?Previous result was 0.007 ng/mL on 10/15/2020 [facility] SERVICESEqual or Less than 0.034 [...] Biotin has been reported to cause a negativebias, interpret results relative to patient's use of biotin. ?[facility] HospitalN- TERMINAL EXS-YNS6555-34-22 14:28:48NT-proBNPComment: Possible Contaminated specimen. ?Talked to Dr Mai to reorder Troponin and BNP. This is a corrected result. ?Previous result was 41 pg/mL on 10/15/2020 at 0904 [facility]AT[facility] SERVICESBiotin has been reported to cause a negative bias, interpret results relative to patient's use of biotin.[facility] HospitalLipase [id number] 14:09:09LIPASEComment: Possible contamination of specimen. Dr Mai to reorder for recollection. This is a corrected result. ?Previous result was 16 U/L on 10/15/2020 at 0852 [facility] SERVICESUnHouston Methodist West HospitalCREATINE [id number] 14:08:28CKComment: Possible contamination of specimen. Dr Mai to reorder for recollection. This is a correct ed result. ?Previous result was 230 U/L on 10/15/2020 at 0852 [facility] SERVICESUnHouston Methodist West HospitalCT HEAD WO [id number] 13:47:51 No acute intracranial hemorrhage or mass [...] IMPRESSIONNo acute intracranial hemorrhage or mass effect.[facility] HospitalXR CHEST 1 [id number] 14:06:46No acute cardiopulmonary process. Preliminary Report Dictated by [...] by Resident: Hany Willard MD., have reviewed thisstudy and agree with theabove report.[facility]. METABOLIC PANEL ([id number])2020-10-13 11:48:17* Test Item Value Reference Range Interpretation Comme nts NA (test code = 8616814072) 137 mmol/L 135-145 K (test code = 4917260267) 4.2 mmol/L 3.5-5.0 Slight hemolysis CL (test code = 0201377835) 110 mmol/L 98-108 H CO2 TOTAL (test code = 5461356767) 18 mmol/L 23-31 L AGAP (test code = 7212164934) 2-16 BUN (test code = 9511061434) 13 mg/dL 7-23 Slight hemolysis GLUCOSE (test code = 0551122992) 104 mg/dL 70-110 CREATININE (test code = 1490505247) 0.63 mg/dL 0.50-1.04 TOTAL BILI (test code = 2750687871) 0.5 mg/dL 0.1-1.1 CALCIUM (test code = 7751238392) 8.1 mg/dL 8.6-10.6 L T PROTEIN (test code = 6991055422) 7.0 g/dL 6.3-8.2 ALBUMIN (test code = 0090922936) 3.8 g/dL 3.5-5.0 ALK PHOS (test code = 2432471166) 55 U/L 34-122 Slight hemolysis ALTv (test code = 1742-6) 49 U/L 5-35 H AST(SGOT) (test code = 8833484483) 72 U/L 13-40 H Slight hemolysis eGFR (test code = 5903167491) mL/min/1.73m2 PAULA (test code = PAULA) Association of [...] or abnormalities in imaging tests). Lab Interpretation (test code = 83583-8) Abnormal [facility] HospitalDrug Screen [id number] 11:42:55* Test Item Value Reference Range Interpretation Comme nts AMPHET (test code = 7321602248) Presumptive Positive Negative A Cocaine Metabolite (test code = 3492647815) Negative Negative OPIATES (test code = 9353897893) Presumptive Positive Negative A THC (test code = 1781428640) Negative Negative PAULA (test code = PAULA) Urine Drug Cutoff Ranges Amphetamine: ? 1,000 ng/mLCocaine: ? 150 ng/mLOpiates: ? 300 ng/mLCannabinoids: ?50 ng/mL The results are to be used only for medical (i.e., treatment) purposes. Unconfirmed screening results must not be used for non-medical purposes (e.g., employment testing, legal testing). Lab Interpretation (test code = 01905-9) Abnormal [facility] HospitalDRUG SCREEN PANEL 2 [id number] 11:42:35* Test Item Value Reference Range Interpretation Comme nts AMPHET (test code = 4986508826) Presumptive Positive Negative A ANN U (test code = 5084673371) Negative Negative BENZO U (test code = 0299886395) Negative Negative Cocaine Metabolite (test code = 1328534656) Negative Negative METHADONE (test code = 9509739773) Negative Negative OPIATES (test code = 3457117787) Presumptive Positive Negative A PCP (test code = 0946767949) Negative Negative THC (test code = 8865356815) Negative Negative PAULA (test code = PAULA) Urine Drug [...] employment testing, legal testing). Lab Interpretation (test code = 94885-0) Abnormal [facility] HospitalD-WFDJM9113-29-95 11:32:36* Test Item Value Reference Range Interpretation Comments D-DIMER (test code = 4156089330) See_Comment [Automated message] The system which generated this result transmitted reference range: <0.50 ?g/mL (FEU). The reference range was not used to interpret this result as normal/abnormal. PAULA (test code = PAULA) This test may be used in conjunction with a clinical pretest [...] context, in forming a diagnosis. Lab Interpretation (test code = 53084-3) Normal [facility] HospitalURINALYSIS2021-04-20 11:29:49* Test Item Value Reference Range Interpretation Comme nts APPEARANCE (test code = 0277652515) Clear Clear COLOR (test code = 4789038310) Straw Yellow A PH (test code = 9285899685) 4.8-8.0 SP GRAVITY (test code = 1560730206) 1.003-1.030 GLU U QUAL (test code = 8842016668) Normal Normal BLOOD (test code = 1454954903) Negative Negative KETONES (test code = 4375815904) Negative Negative PROTEIN (test code = 2887-8) Negative Negative UROBILIN (test code = 9747028069) Normal Normal BILIRUBIN (test code = 1887750568) Negative Negative NITRITE (test code = 3901637321) Negative Negative LEUK JONATHON (test code = 7371335899) Negative Negative RBC/HPF (test code = 7406571501) <1 See_Comment [Automated messa ge] The system which generated this result transmitted reference range: 0 - 3 HPF. The reference range was not used to interpret this result as normal/abnormal. WBC/HPF (test code = 5594312416) <1 See_Comment [Automated inFreeDAa ge] The system which generated this result transmitted reference range: 0 - 5 HPF. The reference range was not used to interpret this result as normal/abnormal. BACTERIA (test code = 2126473151) Few Negative A SQ EPITH (test code = 8040157394) See_Comment [Automated inFreeDAa ge] The system which generated this result transmitted reference range: <=2 HPF. The reference range was not used to interpret this result as normal/abnormal. Lab Interpretation (test code = 18146-6) Abnormal [facility] HospitalPOCT [id number] 11:13:00* Test Item Value Reference Range Interpretation Comme nts POCT PREG (test code = 1605) negative On board controls acceptable with C Line (test code = 3574) present POCT PREG LOT # (test code = 3575) [id number] POCT PREG TEST DATE ( test code = 3576) 2022-05-25 Lab Interpretation (test cod e = 10686-3) Normal [facility] [place] [facility] HospitalTHYROID STIMULATING IVNSKBG7570-12-28 11:12:54 * Test Item Value Reference Range Interpretation Comme nts TSH (test code = 9401075868) See_Comment H [Automated inFreeDAa zePASS] The system which generated this result transmitted reference range: 0.45 - 4.70 mIU/L. The reference range was not used to interpret this result as normal/abnormal. Lab Interpretation (test code = 97597-2) Abnormal [facility] HospitalTroponin [id number] 10:54:13* Test Item Value Reference Range Interpretation Comme nts TROPONIN I (test code = 0327803315) 0.013 ng/mL See_Comment [Automated message] The system which generated this result transmitted reference range: <=0.034. The reference range was not used to interpret this result as normal/abnormal. PAULA (test code = PAULA) Equal or Less than 0.034 ng/ml---Normal ?Note: Cardiac [...] patient's use of biotin. ? Lab Interpretation (test code = 83179-6) Normal [facility] HospitalEthanol Oadqa8630-29-24 10:53:52* Test Item Value Reference Range Interpretation Comme nts ALCOHOL (test code = 3091889477) <10 mg/dL PAULA (test code = PAULA) Toxic Greater than or equal to 80 mg/dL. NOTE: Whole blood values are approximately 10% to 15% lower than serum and plasma. [facility] with Xsxkvvoyupqq4612-35-58 10:49:12* Test Item Value Reference Range Interpretation Comme nts WBC (test code = 6690-2) See_Comment [[employer]] The system which generated this result transmitted reference range: 4.30 - 11.10 10*3/?L. The reference range was not used to interpret this result as normal/abnormal. RBC (test code = 789-8) See_Comment [[employer]] The system which generated this result transmitted reference range: 3.93 - 5.25 10*6/?L. The reference range was not used to interpret this result as normal/abnormal. HGB (test code = 718-7) 12.3 g/dL 11.6-15.0 HCT (test code = 4544-3) 36.9 % 35.7-45.2 MCV (test code = 787-2) 91.8 fL 80.6-95.5 MCH (test code = 785-6) 30.6 pg 25.9-32.8 MCHC (test code = 786-4) 33.3 g/dL 31.6-35.1 RDW-SD (test code = 18635-5) 43.8 fL 39.0-49.9 RDW-CV (test code = 788-0) 12.9 % 12.0-15.5 PLT (test code = 777-3) See_Comment [Automated messa ge] The system which generated this result transmitted reference range: 166 - 358 10*3/?L. The reference range was not used to interpret this result as normal/abnormal. MPV (test code = 36184-7) 9.5 fL 9.5-12.9 NRBC/100 WBC (test code = 6559899561) See_Comment [Automated me ssage] The system which generated this result transmitted reference range: 0.0 - 10.0 /100 WBCs. The reference range was not used to interpret this result as normal/abnormal. NRBC x10^3 (test code = 3641236754) <0.01 See_Comment [Automated me ssage] The system which generated this result transmitted reference range: 10*3/?L. The reference range was not used to interpret this result as normal/abnormal. GRAN MAT (NEUT) % (test code = 770-8) 66.8 % IMM GRAN % (test code = 2101726706) 0.30 % LYMPH % (test code = 736-9) 21.6 % MONO % (test code = 5905-5) 9.2 % EOS % (test code = 713-8) 1.4 % BASO % (test code = 706-2) 0.7 % GRAN MAT x10^3(ANC) (test code = 8545089244) 4.73 10*3/uL 1.88-7.09 IMM GRAN x10^3 (test code = 6792006795) <0.03 0.00-0.06 LYMPH x10^3 (test code = 731-0) 1.53 10*3/uL 1.32-3.29 MONO x10^3 (test code = 742-7) 0.65 10*3/uL 0.33-0.92 EOS x10^3 (test code = 711-2) 0.10 10*3/uL 0.03-0.39 BASO x10^3 (test code = 704-7) 0.05 10*3/uL 0.01-0.07 [facility] HospitalLipase Sctxf8710-49-79 10:44:47* Test Item Value Reference Range Interpretation Comme [facility] LIPASE (test code = 5745597353) 172 U/L 0-220 Lab Interpretation (test cod e = 60522-4) Normal [facility] HospitalProthrombin Time (PT) / [id number] 10:43:11 * Test Item Value Reference Range Interpretation Comme [facility] PROTIME PATIENT (test code = 5964-2) See_Comment [Automated inFreeDAa zePASS] The system which generated this result transmitted reference range: 10.1 - 12.6 Seconds. The reference range was not used to interpret this result as normal/abnormal. INR (test code = 6301-6) Normal INR <1.1; Warfarin Therapeutic range 2.0 to 3.0 or 2.5 to 3.5, depending upon the indications. Lab Interpretation (test code = 86690-6) Normal [facility] HospitalaPTT2021-04-20 10:43:11* Test Item Value Reference Range Interpretation Comme [facility] APTT Patient (test code = 3173-2) See_Comment L [Automated inFreeDAa zePASS] The system which generated this result transmitted reference range: 26 - 36 Seconds. The reference range was not used to interpret this result as normal/abnormal. Lab Interpretation (test code = 53661-8) Abnormal [facility] HospitalCOVID-19 (ID NOW RAPID TESTING)2020-10-13 10:28:07* Test Item Value Reference Range Interpretation Comme [facility] SARS-CoV-2 Rapid ID NOW (test code = 60880-2) Not Detected Not Detected PAULA (test code = PAULA) ID NOW COVID-19 As say is an isothermal nucleic acid amplification test intended for the qualitative detection of nucleic acid from SARS-CoV-2 viral RNA in nasopharyngeal (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 It is used under Emergency Use [...] patient testing if clinically indicated. Lab Interpretation (test code = 31161-3) Normal [facility] HospitalPREGNANCY TEST, [id number] 03:54:33* Test Item Value Reference Range Interpretation Comme nts PREG SERUM (test code = 7990531837) Negative PAULA (test code = PAULA) Less than 10 IU/L. ?If low titer or ectopic is suspected, resubmit specimen in 48-72 hours. [facility] Metabolic Panel (NA, K, CL, CO2, GLUCOSE, BUN, CREATININE, CA)2020-09-17 03:26:58* Test Item Value Reference Range Interpretation Comme nts NA (test code = 7549940273) 135 mmol/L 135-145 K (test code = 4611615773) 3.8 mmol/L 3.5-5.0 CL (test code = 4068624203) 99 mmol/L 98-108 CO2 TOTAL (test code = 8476005417) 24 mmol/L 23-31 AGAP (test code = 4214163159) 2-16 BUN (test code = 9397618635) 9 mg/dL 7-23 GLUCOSE (test code = 6395231238) 100 mg/dL 70-110 CREATININE (test code = 6099128810) 0.74 mg/dL 0.50-1.04 CALCIUM (test code = 4101805078) 9.1 mg/dL 8.6-10.6 eGFR Calculation (Non-) (test code = 7600023026) mL/min/1.73m2 eGFR Calculation () (test code = 2237489762) mL/min/1.73m2 PAULA (test code = PAULA) Association of [...] urine or abnormalities in imaging tests). [facility] HospitalHepatic Function Panel (ALB, T.PRO, BILI T, BU/BC, ALT, AST, ALK PHOS)2020-09-17 03:26:58* Test Item Value Reference Range Interpretation Comme nts TOTAL BILI (test code = 6256748382) 0.4 mg/dL 0.1-1.1 BILI UNCON (test code = 7980328415) 0.2 mg/dL 0.1-1.1 BILI CONJ (test code = 1330245518) 0.0 mg/dL 0.0-0.3 T PROTEIN (test code = 7774717344) 8.6 g/dL 6.3-8.2 H ALBUMIN (test code = 1237923363) 5.1 g/dL 3.5-5.0 H ALK PHOS (test code = 6192526291) 114 U/L 34-122 ALTv (test code = 1742-6) 28 U/L 5-35 AST(SGOT) (test code = 5830152942) 47 U/L 13-40 H Lab Interpretation (test cod e = 63969-7) Abnormal [facility] HospitalLipase Tweif5882-83-45 03:26:58* Test Item Value Reference Range Interpretation Comme nts LIPASE (test code = 0508455008) 81 U/L 0-220 Lab Interpretation (test cod e = 72305-6) Normal [facility] with Rrophktysztk1172-22-83 03:13:16* Test Item Value Reference Range Interpretation Comme nts WBC (test code = 6690-2) See_Comment [Automated messa ge] The system which generated this result transmitted reference range: 4.30 - 11.10 10*3/?L. The reference range was not used to interpret this result as normal/abnormal. RBC (test code = 789-8) See_Comment [Automated messa ge] The system which generated this result transmitted reference range: 3.93 - 5.25 10*6/?L. The reference range was not used to interpret this result as normal/abnormal. HGB (test code = 718-7) 15.0 g/dL 11.6-15.0 HCT (test code = 4544-3) 44.8 % 35.7-45.2 MCV (test code = 787-2) 91.4 fL 80.6-95.5 MCH (test code = 785-6) 30.6 pg 25.9-32.8 MCHC (test code = 786-4) 33.5 g/dL 31.6-35.1 RDW-SD (test code = 38625-4) 42.8 fL 39.0-49.9 RDW-CV (test code = 788-0) 12.8 % 12.0-15.5 PLT (test code = 777-3) See_Comment [Automated messa ge] The system which generated this result transmitted reference range: 166 - 358 10*3/?L. The reference range was not used to interpret this result as normal/abnormal. MPV (test code = 57927-5) 8.9 fL 9.5-12.9 L NRBC/100 WBC (test code = 2066817164) See_Comment [Automated [employer] ssage] The system which generated this result transmitted reference range: 0.0 - 10.0 /100 WBCs. The reference range was not used to interpret this result as normal/abnormal. NRBC x10^3 (test code = 6078628166) <0.01 See_Comment [Automated messa ge] The system which generated this result transmitted reference range: 10*3/?L. The reference range was not used to interpret this result as normal/abnormal. GRAN MAT (NEUT) % (test code = 770-8) 44.7 % IMM GRAN % (test code = 7032958382) 0.50 % LYMPH % (test code = 736-9) 44.6 % MONO % (test code = 5905-5) 8.2 % EOS % (test code = 713-8) 0.9 % BASO % (test code = 706-2) 1.1 % GRAN MAT x10^3(ANC) (test code = 7356245727) 2.84 10*3/uL 1.88-7.09 IMM GRAN x10^3 (test code = 8355167574) 0.03 10*3/uL 0.00-0.06 LYMPH x10^3 (test code = 731-0) 2.83 10*3/uL 1.32-3.29 MONO x10^3 (test code = 742-7) 0.52 10*3/uL 0.33-0.92 EOS x10^3 (test code = 711-2) 0.06 10*3/uL 0.03-0.39 BASO x10^3 (test code = 704-7) 0.07 10*3/uL 0.01-0.07 Lab Interpretation (test code = 18894-3) Abnormal [facility] HospitalN-TERMINAL [id number]-TBL8724-21-14 11:23:18* Test Item Value Reference Range Interpretation Comme nts NT-proBNP (test code = 4147438191) 100 pg/mL See_Comment [Automated message] The system which generated this result transmitted reference range: <=125. The reference range was not used to interpret this result as normal/abnormal. PAULA (test code = PAULA) Biotin has been reported to cause a negative bias, interpret results relative to patient's use of biotin. Lab Interpretation (test code = 98519-2) Normal [facility] WITH [id number] 11:03:17* Test Item Value Reference Range Interpretation Comme nts WBC (test code = 6690-2) See_Comment [Automated messa ge] The system which generated this result transmitted reference range: 4.30 - 11.10 10*3/?L. The reference range was not used to interpret this result as normal/abnormal. RBC (test code = 789-8) See_Comment [Automated messa ge] The system which generated this result transmitted reference range: 3.93 - 5.25 10*6/?L. The reference range was not used to interpret this result as normal/abnormal. HGB (test code = 718-7) 13.5 g/dL 11.6-15.0 HCT (test code = 4544-3) 41.1 % 35.7-45.2 MCV (test code = 787-2) 95.4 fL 80.6-95.5 MCH (test code = 785-6) 31.3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 CALCIUM (test code = 8032550127) 9.0 mg/dL 8.6-10.6 eGFR Calculation (Non-) (test code = 3454368835) mL/min/1.73m2 eGFR Calculation () (test code = 3172874516) mL/min/1.73m2 PAULA (test code = PAULA) Association of [...] urine or abnormalities in imaging tests). [facility] HospitalProthrombin Time / [id number] 12:41:00* Test Item Value Reference Range Interpretation Comme corey GRAHAM PATIENT (test code = 5964-2) See_Comment [Automated [employer]] The system which generated this result transmitted reference range: 10.1 - 12.6 Seconds. The reference range was not used to interpret this result as normal/abnormal. INR (test code = 6301-6) Normal INR <1.1; Warfarin Therapeutic range 2.0 to 3.0 or 2.5 to 3.5, depending upon the indications. Lab Interpretation (test code = 43126-3) Normal [facility] HospitalaPTT2020-10-17 12:41:00* Test Item Value Reference Range Interpretation Comme [facility] APTT Patient (test code = 3173-2) See_Comment L [Automated messa ge] The system which generated this result transmitted reference range: 26 - 36 Seconds. The reference range was not used to interpret this result as normal/abnormal. Lab Interpretation (test code = 57626-3) Abnormal [facility] HospitalProfile / [id number] 12:31:00* Test Item Value Reference Range Interpretation Comme [facility] WBC (test code = 6690-2) See_Comment H [Automated message] The system which generated this result transmitted reference range: 4.30 - 11.10 10*3/?L. The reference range was not used to interpret this result as normal/abnormal. RBC (test code = 789-8) See_Comment [Automated message] The system which generated this result transmitted reference range: 3.93 - 5.25 10*6/?L. The reference range was not used to interpret this result as normal/abnormal. HGB (test code = 718-7) 14.1 g/dL 11.6-15 HCT (test code = 4544-3) 42.3 % 35.7-45.2 MCH (test code = 785-6) 31.0 pg 25.9-32.8 MCV (test code = 787-2) 93.0 fL 80.6-95.5 MCHC (test code = 786-4) 33.3 g/dL 31.6-35.1 PLT (test code = 777-3) See_Comment [Automated message] The system which generated this result transmitted reference range: 166 - 358 10*3/?L. The reference range was not used to interpret this result as normal/abnormal. MPV (test code = 62711-9) 10.0 fL 9.5-12.9 RDW-CV (test code = 788-0) 12.9 % 12-15.5 RDW-SD (test code = 06485-5) 43.6 fL 39-49.9 NRBC x10^3 (test code = 1186048134) <0.01 See_Comment [Automated inFreeDAa zePASS] The system which generated this result transmitted reference range: 10*3/?L. The reference range was not used to interpret this result as normal/abnormal. NRBC/100 WBC (test code = 3583854859) See_Comment [Automated [employer]] The system which generated this result transmitted reference range: 0.0 - 10.0 /100 WBCs. The reference range was not used to interpret this result as normal/abnormal. IPF % (test code = 7916474279) Lab Interpretation (test code = 49097-1) Abnormal [facility] [id number] 02:32:00* Test Item Value Reference Range Interpretation Comme nts TROPONIN I (test code = 3585782927) 0.013 ng/mL See_Comment [Automated message] The system which generated this result transmitted reference range: <=0.034. The reference range was not used to interpret this result as normal/abnormal. PAULA (test code = PAULA) Equal or Less than 0.034 ng/ml---Normal ?Note: Cardiac [...] patient's use of biotin. ? Lab Interpretation (test code = 37868-5) Normal [facility] / [facility] - DRUG SCREEN [id number] 05:48:00* Test Item Value Reference Range Interpretation Comme nts BENZO U (test code = 1835623395) Presumptive Positive Negative A ANN U (test code = 1740119058) Negative Negative AMPHET (test code = 7037748084) Presumptive Positive Negative A THC (test code = 9950096667) Negative Negative METHADONE (test code = 0868934484) Negative Negative Meth U (test code = 9774634066) Presumptive Positive Negative A OPIATES (test code = 1307576830) Negative Negative Cocaine Metabolite (test code = 4988984558) Negative Negative PROPOXY (test code = 2613010542) Negative Negative Tric U (test code = 4850710172) Negative Negative PCP (test code = 3763912678) Negative Negative OXYCOD (test code = 1456713647) Negative Negative PAULA (test code = PAULA) Urine Drug [...] employment testing, legal testing). Lab Interpretation (test code = 77939-0) [facility]normal [facility] 1 [id number] 04:51:01Impression: No acute cardiopulmonary changes. Preliminary Report Dictated by Resident: Sebastian Allred MD., have reviewed this study and agree withthe above report.XR CHEST 1 VW History: Chest pain Comparison: XR CHEST 1 VW, 03/06/2019. Findings: The lungs are clear. No focal consolidation is present. No pleural effusionor pneumothorax is identified. The heart is normal in size. The osseous structures are unremarkable. [facility], Radiant Results In[facility] User - 04/09/2020 11:52 PM CDTXR CHEST 1 VWHistory: Chest pain Comparison: XR CHEST 1 VW, 03/06/2019.Findings:The lungs are clear. No focal consolidation is present. No pleural effusionor pneumothorax is identified. The heart is normal in size. The osseous structures are unremarkable.IMPRESSIONImpression:No acute cardiopu lmonary changes.Preliminary Report Dictated by Resident: Luis E Rose, Sebastian Schwab MD., have reviewed this study and agree withthe above report.[facility] HospitalDOTEusebio [id number] 04:48:00* Test Item Value Reference Range Interpretation Comme nts TROPONIN I (test code = 9807905448) 0.018 ng/mL See_Comment [Automated message] The system which generated this result transmitted reference range: <=0.034. The reference range was not used to interpret this result as normal/abnormal. PAULA (test code = PAULA) Equal or Less than 0.034 ng/ml---Normal ?Note: Cardiac [...] patient's use of biotin. ? Lab Interpretation (test code = 74377-2) Normal [facility] HospitalN-TERMINAL [id number] 04:45:00* Test Item Value Reference Range Interpretation Comme nts NT-proBNP (test code = 0172656382) 309 pg/mL See_Comment H [Automated message] The system which generated this result transmitted reference range: <=125. The reference range was not used to interpret this result as normal/abnormal. PAULA (test code = PAULA) Biotin has been reported to cause a negative bias, interpret results relative to patient's use of biotin. Lab Interpretation (test code = 16703-0) Abnormal [facility] HospitalD-[id number] 04:43:00* Test Item Value Reference Range Interpretation Comments D-DIMER (test code = 4260342367) <0.27 See_Comment [Automated message] The system which generated this result transmitted reference range: <0.41 ?g/mL (FEU). The reference range was not used to interpret this result as normal/abnormal. PAULA (test code = PAULA) This test may be used in conjunction with a clinical pretest [...] context, in forming a diagnosis. Lab Interpretation (test code = 73643-4) [facility] RAPID TESTING)2020-04-10 04:42:00* Test Item Value Reference Range Interpretation Comme nts SARS-CoV-2 Rapid ID NOW (test code = 81608-5) Not Detected Not Detected PAULA (test code = PAULA) ID NOW COVID-19 As say is an isothermal nucleic acid amplification test intended for the qualitative detection of nucleic acid from SARS-CoV-2 viral RNA in nasopharyngeal (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 It is used under Emergency Use [...] patient testing if clinically indicated. Lab Interpretation (test code = 02950-8) [facility]2020-[facility]16 04:37:00* Test Item Value Reference Range Interpretation Comme nts MAGNESIUM (test code = 8198348795) 1.7 mg/dL 1.7-2.4 Lab Interpretation (test cod e = 47140-9) [facility]OLIC PANEL (11261)2020-04-10 04:36:00* Test Item Value Reference Range Interpretation Comme nts NA (test code = 0889371250) 135 mmol/L 135-145 K (test code = 5034373456) 3.4 mmol/L 3.5-5 L CL (test code = 2042792934) 99 mmol/L 98-108 CO2 TOTAL (test code = 0910762739) 24 mmol/L 23-31 AGAP (test code = 7558217090) 2-16 BUN (test code = 0725756739) 8 mg/dL 7-23 GLUCOSE (test code = 9944023507) 119 mg/dL 70-110 H CREATININE (test code = 7496209713) 0.71 mg/dL 0.5-1.04 TOTAL BILI (test code = 6928885329) 0.5 mg/dL 0.1-1.1 CALCIUM (test code = 3138038701) 10.9 mg/dL 8.6-10.6 H T PROTEIN (test code = 0239884289) 8.1 g/dL 6.3-8.2 ALBUMIN (test code = 4582757786) 4.4 g/dL 3.5-5 ALK PHOS (test code = 6214341897) 85 U/L 34-122 ALTv (test code = 1742-6) 51 U/L 5-35 H AST(SGOT) (test code = 2775847804) 42 U/L 13-40 H eGFR Calculation (Non-) (test code = 7915716941) mL/min/1.73m2 eGFR Calculation () (test code = 5840238886) mL/min/1.73m2 PAULA (test code = PAULA) Association of [...] or abnormalities in imaging tests). Lab Interpretation (test code = 26139-9) [facility]normal [facility]2020-[facility] 04:36:00* Test Item Value Reference Range Interpretation Comme nts LIPASE (test code = 0954375270) 193 U/L 0-220 Lab Interpretation (test cod e = 61346-8) [facility] WITH [id number] 04:22:00* Test Item Value Reference Range Interpretation Comme nts WBC (test code = 6690-2) See_Comment [Automated messa ge] The system which generated this result transmitted reference range: 4.30 - 11.10 10*3/?L. The reference range was not used to interpret this result as normal/abnormal. RBC (test code = 789-8) See_Comment [Automated messa ge] The system which generated this result transmitted reference range: 3.93 - 5.25 10*6/?L. The reference range was not used to interpret this result as normal/abnormal. HGB (test code = 718-7) 14.5 g/dL 11.6-15 HCT (test code = 4544-3) 42.9 % 35.7-45.2 MCV (test code = 787-2) 90.5 fL 80.6-95.5 MCH (test code = 785-6) 30.6 pg 25.9-32.8 MCHC (test code = 786-4) 33.8 g/dL 31.6-35.1 RDW-SD (test code = 42748-4) 41.7 fL 39-49.9 RDW-CV (test code = 788-0) 12.5 % 12-15.5 PLT (test code = 777-3) See_Comment [Automated messa ge] The system which generated this result transmitted reference range: 166 - 358 10*3/?L. The reference range was not used to interpret this result as normal/abnormal. MPV (test code = 91151-0) 9.5 fL 9.5-12.9 NRBC/100 WBC (test code = 2995283063) See_Comment [Automated [employer]ocket[employer] ssage] The system which generated this result transmitted reference range: 0.0 - 10.0 /100 WBCs. The reference range was not used to interpret this result as normal/abnormal. NRBC x10^3 (test code = 7281799410) <0.01 See_Comment [Automated messa ge] The system which generated this result transmitted reference range: 10*3/?L. The reference range was not used to interpret this result as normal/abnormal. GRAN MAT (NEUT) % (test code = 770-8) 67.8 % IMM GRAN % (test code = 5440974465) 0.50 % LYMPH % (test code = 736-9) 24.0 % MONO % (test code = 5905-5) 6.6 % EOS % (test code = 713-8) 0.6 % BASO % (test code = 706-2) 0.5 % GRAN MAT x10^3(ANC) (test code = 0067668136) 7.32 10*3/uL 1.88-7.09 H IMM GRAN x10^3 (test code = 3648945848) 0.05 10*3/uL 0-0.06 LYMPH x10^3 (test code = 731-0) 2.58 10*3/uL 1.32-3.29 MONO x10^3 (test code = 742-7) 0.71 10*3/uL 0.33-0.92 EOS x10^3 (test code = 711-2) 0.06 10*3/uL 0.03-0.39 BASO x10^3 (test code = 704-7) 0.05 10*3/uL 0.01-0.07 Lab Interpretation (test code = 48785-8) Abnormal [facility] (78611)2020-02-25 19:07:00* Test Item Value Reference Range Interpretation Comme nts NA (test code = 3160576451) 135 mmol/L 135-145 K (test code = 2471886464) 3.7 mmol/L 3.5-5 CL (test code = 8251624793) 106 mmol/L 98-108 CO2 TOTAL (test code = 1106114821) 21 mmol/L 23-31 L AGAP (test code = 8446556253) 2-16 BUN (test code = 2934287170) 9 mg/dL 7-23 GLUCOSE (test code = 6696697655) 116 mg/dL 70-110 H CREATININE (test code = 7252503667) 0.57 mg/dL 0.5-1.04 TOTAL BILI (test code = 6601336651) 0.7 mg/dL 0.1-1.1 CALCIUM (test code = 3151948650) 9.4 mg/dL 8.6-10.6 T PROTEIN (test code = 6580761976) 8.2 g/dL 6.3-8.2 ALBUMIN (test code = 5806951354) 4.6 g/dL 3.5-5 ALK PHOS (test code = 3083836917) 116 U/L 34-122 ALTv (test code = 1742-6) 67 U/L 5-35 H AST(SGOT) (test code = 5863444607) 70 U/L 13-40 H eGFR Calculation (Non-) (test code = 5388442026) mL/min/1.73m2 eGFR Calculation () (test code = 7511287378) mL/min/1.73m2 PAULA (test code = PAULA) Association of [...] or abnormalities in imaging tests). Lab Interpretation (test code = 32656-8) Abnormal [facility] WITH [id number] 18:51:00* Test Item Value Reference Range Interpretation Comme nts WBC (test code = 6690-2) See_Comment [Automated [employer]] The system which generated this result transmitted reference range: 4.30 - 11.10 10*3/?L. The reference range was not used to interpret this result as normal/abnormal. RBC (test code = 789-8) See_Comment [Automated inFreeDAa ge] The system which generated this result transmitted reference range: 3.93 - 5.25 10*6/?L. The reference range was not used to interpret this result as normal/abnormal. HGB (test code = 718-7) 14.4 g/dL 11.6-15 HCT (test code = 4544-3) 42.2 % 35.7-45.2 MCV (test code = 787-2) 89.2 fL 80.6-95.5 MCH (test code = 785-6) 30.4 pg 25.9-32.8 MCHC (test code = 786-4) 34.1 g/dL 31.6-35.1 RDW-SD (test code = 64754-2) 41.6 fL 39-49.9 RDW-CV (test code = 788-0) 12.6 % 12-15.5 PLT (test code = 777-3) See_Comment [Automated inFreeDAa ge] The system which generated this result transmitted reference range: 166 - 358 10*3/?L. The reference range was not used to interpret this result as normal/abnormal. MPV (test code = 37542-5) 10.0 fL 9.5-12.9 NRBC/100 WBC (test code = 9118617275) See_Comment [Automated Rocket[employer] ssage] The system which generated this result transmitted reference range: 0.0 - 10.0 /100 WBCs. The reference range was not used to interpret this result as normal/abnormal. NRBC x10^3 (test code = 0039993636) <0.01 See_Comment [Automated me ssage] The system which generated this result transmitted reference range: 10*3/?L. The reference range was not used to interpret this result as normal/abnormal. GRAN MAT (NEUT) % (test code = 770-8) 63.1 % IMM GRAN % (test code = 2948718899) 0.40 % LYMPH % (test code = 736-9) 27.0 % MONO % (test code = 5905-5) 8.0 % EOS % (test code = 713-8) 0.6 % BASO % (test code = 706-2) 0.9 % GRAN MAT x10^3(ANC) (test code = 8899955591) 5.02 10*3/uL 1.88-7.09 IMM GRAN x10^3 (test code = 5667890675) 0.03 10*3/uL 0-0.06 LYMPH x10^3 (test code = 731-0) 2.15 10*3/uL 1.32-3.29 MONO x10^3 (test code = 742-7) 0.64 10*3/uL 0.33-0.92 EOS x10^3 (test code = 711-2) 0.05 10*3/uL 0.03-0.39 BASO x10^3 (test code = 704-7) 0.07 10*3/uL 0.01-0.07 [facility]PELVIS W/[id number] 18:17:32NPO 4 hours. Do not withhold medsProcedure: [...] reconstruction techniques.Findings:Lung bases are clear and the heartapex within normal limits. No inferiormediastinal abnormality. Inferior [...] 08/22/20196:11 PMDictated By: MIGUEL GILMANDate: 08/22/2019 18:11[facility] , [id number] 17:09:00* Test Item Value Reference Range Interpretation Comme nts (Urine) (test code = PREGU) Negative [facility] LAB URINALYSIS WITHOUT [id number] 17:08:00* Test Item Value Reference Range Interpretation Comme nts Color (test code = UCOLR) Light yellow Lt. Yellow A Clarity (test code = UCLAR) Clear Glucose (test code = UGLUC) Negative Negative N Bilirubin (test code = UBILI) Negative Negative N Ketones (test code = UKET) Negative Negative N Specific [place] (test code = USPGR) 1.015 1.005-1.030 A Blood (test code = UBLD) Negative Negative N PH (test code = UPH) 5.5 4.5-8.0 A Protein (test code = UPROT) Negative Negative N Urobilinogen (test code = U UROB) 0.2 >0.2 N Nitrite (test code = UNITR) Negative Negative N Leukocyte Esterase (test cod e = ULEUK) Negative Negative N [facility]2020-[facility]27 16:39:00* Test Item Value Reference Range Interpretation Comme nts Lipase (test code = LIPA) 178 U/L 73-393 [facility]FbrqegZLB0923-19-08 16:39:00* Test Item Value Reference Range Interpretation Comme nts Sodium (test code = NA) 136 mmol/l 137-145 L Potassium (test code = K) 4.4 mmol/l 3.5-5.1 Chloride (test code = CL) 107 mmol/l 98-107 Calcium (test code = CALC) 8.5 mg/dl 8.5-10.1 CO2 (test code = CO2) 24 mmol/l 21-32 Glucose (test code = GLU) 99 mg/dl 74-106 BUN (test code = BUN) 10.0 mg/dl 7.0-18.0 Creatinine (test code = CREA) 0.7 mg/dl 0.5-1.3 T Protein (test code = TP) 8.2 gm/dl 6.4-8.2 Albumin (test code = ALB) 3.6 gm/dl 3.4-5.0 A/G Ratio (test code = AGRAT) 0.8 % 1.1-2.2 L AST (SGOT) (test code = AST) 83 U/L 15-37 H ALT (SGPT) (test code = ALT) 102 U/L 13-61 H Alkaline Phos (test code = ALKP) 93 U/L 45-117 Total Bilirubin (test code = TBIL) 0.3 mg/dl 0.2-1.0 Globulin (test code = GLOBU) 4.6 gm/dl 2.3-3.5 H Calcium, Corrected (test code = CALCCORR) 8.8 mg/dl 8.4-10.2 Various formulas exist for corrected serum calcium results, each yielding different values. This corrected result was based on the formula: Corrected Calcium = SerumCalcium + [0.8 * ( 4 - SerumAlbumin)] EGFR if (test code = EGFRAA) >60 mL/min/1.73m\\ S\\2 EGFR if Non- (test code = EGFRNA) >60 mL/min/1.73m\\ S\\2 Estimated Glomerular Filtration Rate (eGFR) Reference Intervals Decision Points for 18 years and older and average body mass: >= 60 Does not exclude kidney disease. 30 - 59 Suggests moderate chronic kidney disease and indicates the need for further investigation including assessment of proteinuria and cardiovascular factors. < 30 Usually indicates a need for referral for assessment and management of chronic kidney failure. [facility] LAB CBC WITH AUTO [id number] 16:16:00* Test Item Value Reference Range Interpretation Comme nts WBC (test code = WBC) 4.65 10\\S\\3/ul [...] (test code = IG%) 0.4 % 0.0-0.4 [facility] EL[facility]OW [facility] 3 [id number] 17:59:10Procedure: XR ELBOW MIN 3 VIEWSOrder Date: 08/19/2019 2:54 PMOrdering Provider: FIONA Vincentinical Indication: [id number]: Pain of left elbow jointComparison: NoneFINDINGS:There is no fracture or dislocation.Osteoarthrosis of the left elbow, particularly at the radial articular surface.No lytic or sclerotic lesions.No joint effusion.No subcutaneous gas.IMPRESSION:1. No fracture or dislocation.2. Osteoarthrosis of the left elbow.3. No other significant findings.This final report was electronically signed by Dr Emile Jackson MD 08/19/20195:52 PMDictated By: EMILE JACKSONDate: 08/19/2019 17:52 [facility] AUGUSTINECT ABDOMEN PELVIS W [id number] 01:59:29No acute intra- abdominal process. 3.2 cm right [...] ovarian cyst. The uterus isretroverted. A 1.2 cmlow-density circumscribed lesion is noted in the leftposterior cervix and may represent a prominentnabothian cyst. A few othersmaller low-density foci are seen towards the midline.. VESSELS: Unremark able. BONES AND SOFT TISSUES: No suspicious lytic [...] andsagittal reconstructions were obtained. Auto mA and/or iterativereconstruction were used to reduce radiation dose.FINDINGS:LOWER THORAX: The lungs bases are clear. No cardiomegaly.LIVER: No focal hepatic lesions. Normal contour.GALLBLADDER AND BILIARY TREE:No biliary ductal dilation. No gallbladderwall thickening.SPLEEN: No splenomegaly.PANCREAS: No ductal dilation or masses.ADRENAL GLANDS: No adrenal nodules.KIDNEYS: No hydronephrosis, stones, or masses.PERITONEUM AND RETROPERITONEUM: No free air or fluid.LYMPH NODES: No lymphadenopathy.GI TRACT: Nodilation or wall thickening.PELVIS/BLADDER: 3.2 cm right simple ovarian cyst. The uterus isretroverted. A 1.2 cm low-density circumscribed lesion is noted in the leftposterior cervix and may represent a prominent nabothian cyst. A few othersmaller low-density foci are seen towards the midline..VESSELS: Unremarkable.BONES AND SOFT TISSUES: No suspicious lytic or sclerotic bony lesions.IMPRESSIONNoacute intra-abdominal process.3.2 cm right simple ovarian cyst. Preliminary Report Dictated by Resident: Philippe Calix, Luis E Terrell MD., have reviewed this study and agree with the abovereport.[facility] Test, [id number] 00:29:00* Test Item Value Reference Range Interpretation Comme nts POCT PREG (test code = 1605) NEGATIVE Lab Interpretation (test cod e = 31482-1) Normal [facility] HospitalUrinalysis2020-01-17 23:44:00* Test Item Value Reference Range Interpretation Comme nts APPEARANCE (test code = 0676171628) Clear Clear COLOR (test code = 3843909220) Straw Yellow A PH (test code = 6652916939) 4.8-8.0 SP GRAVITY (test code = 6430708568) 1.003-1.030 GLU U QUAL (test code = 3623838859) Normal Normal BLOOD (test code = 4050257850) Negative Negative KETONES (test code = 6632466684) Negative Negative PROTEIN (test code = 2887-8) Negative Negative UROBILIN (test code = 5153882271) Normal Normal BILIRUBIN (test code = 1339834865) Negative Negative NITRITE (test code = 8258708943) Negative Negative LEUK JONATHON (test code = 5071925799) Negative Negative RBC/HPF (test code = 6750551009) See_Comment [Automated inFreeDAa ge] The system which generated this result transmitted reference range: 0 - 3 HPF. The reference range was not used to interpret this result as normal/abnormal. WBC/HPF (test code = 9935227343) See_Comment [Automated inFreeDAa ge] The system which generated this result transmitted reference range: 0 - 5 HPF. The reference range was not used to interpret this result as normal/abnormal. BACTERIA (test code = 4506354244) Negative Negative SQ EPITH (test code = 7660645629) <1 See_Comment [Automated inFreeDAa ge] The system which generated this result transmitted reference range: <=2 HPF. The reference range was not used to interpret this result as normal/abnormal. Lab Interpretation (test code = 24088-6) Abnormal [facility]OLIC PANEL (98188)2019-07-12 23:30:00* Test Item Value Reference Range Interpretation Comme nts NA (test code = 8474686124) 141 mmol/L 135-145 K (test code = 4724228128) 3.5 mmol/L 3.5-5 CL (test code = 4998341820) 105 mmol/L 98-108 CO2 TOTAL (test code = 1989248476) 27 mmol/L 23-31 AGAP (test code = 9808110666) 2-16 BUN (test code = 5052755528) 9 mg/dL 7-23 GLUCOSE (test code = 7882228777) 80 mg/dL 70-110 CREATININE (test code = 0612724988) 0.50 mg/dL 0.5-1.04 TOTAL BILI (test code = 6266294436) 0.4 mg/dL 0.1-1.1 CALCIUM (test code = 4664942627) 8.7 mg/dL 8.6-10.6 T PROTEIN (test code = 4400828198) 7.4 g/dL 6.3-8.2 ALBUMIN (test code = 7613001284) 4.2 g/dL 3.5-5 ALK PHOS (test code = 1349910277) 90 U/L 34-122 ALTv (test code = 1742-6) 157 U/L 5-35 H AST(SGOT) (test code = 3091300587) 151 U/L 13-40 H eGFR Calculation (Non-) (test code = 7637609613) mL/min/1.73m2 eGFR Calculation () (test code = 2077879509) mL/min/1.73m2 PAULA (test code = PAULA) Association of [...] or abnormalities in imaging tests). Lab Interpretation (test code = 20642-7) Abnormal [facility] HospitalLipase [id number] 23:30:00* Test Item Value Reference Range Interpretation Comme nts LIPASE (test code = 9218267300) 86 U/L 0-220 Lab Interpretation (test cod e = 64336-6) Normal [facility] HospitalCBC WITH [id number] 23:16:00* Test Item Value Reference Range Interpretation Comme nts WBC (test code = 6690-2) See_Comment [[employer]] The system which generated this result transmitted reference range: 4.30 - 11.10 10*3/?L. The reference range was not used to interpret this result as normal/abnormal. RBC (test code = 789-8) See_Comment [Automated [employer]] The system which generated this result transmitted reference range: 3.93 - 5.25 10*6/?L. The reference range was not used to interpret this result as normal/abnormal. HGB (test code = 718-7) 12.5 g/dL 11.6-15 HCT (test code = 4544-3) 37.5 % 35.7-45.2 MCV (test code = 787-2) 92.1 fL 80.6-95.5 MCH (test code = 785-6) 30.7 pg 25.9-32.8 MCHC (test code = 786-4) 33.3 g/dL 31.6-35.1 RDW-SD (test code = 23744-1) 45.1 fL 39-49.9 RDW-CV (test code = 788-0) 13.3 % 12-15.5 PLT (test code = 777-3) See_Comment [Automated messa ge] The system which generated this result transmitted reference range: 166 - 358 10*3/?L. The reference range was not used to interpret this result as normal/abnormal. MPV (test code = 34421-4) 9.3 fL 9.5-12.9 L NRBC/100 WBC (test code = 0067944655) See_Comment [Automated [employer] ssage] The system which generated this result transmitted reference range: 0.0 - 10.0 /100 WBCs. The reference range was not used to interpret this result as normal/abnormal. NRBC x10^3 (test code = 0646139463) <0.01 See_Comment [Automated messa ge] The system which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
[2024-05-17 01:27] LABS: Specific Gravity 1.006 (1.005-1.030)
[2024-05-17 01:34] LABS: Absolute Eosinophils 0.1 K/uL (0-0.5); Absolute Lymphocytes (CBC) 1.3 K/uL (0.7-4.9); Absolute Monocytes 0.5 K/uL (0.1-1.3); Absolute Neutrophil 2.8 K/uL (1.8-8.0); Basophils % 0.9 % (0-1.3); Eosinophils % 2.1 % (0-4.4); Hematocrit 34.7 % (36.0-45.0); Hemoglobin 10.9 g/dL (12.0-15.0); Lymphocytes % 28.1 % (15.3-44.8); MCH 25.6 pg (27.0-35.0); MCHC 31.5 g/dL (32.0-36.0); MCV 81.3 fL (80-100); MPV 7.3 fL (7.6-11.3); Monocytes % 10.1 % (3.3-12.3); Neutrophils % 58.8 % (41.7-73.7); Platelets 359 thou/uL (152-406); RBC Red Blood Cell Count 4.27 M/uL (3.86-4.86); Red Cell Distribution Width 15.6 % (12.1-15.2)
[2024-05-17 01:34] LABS: Specific Gravity 1.006 (1.005-1.030); Sqamous Epithelial <5 /HPF (None Seen); Urine Bacteria None Seen /HPF (<20); Urine Bilirubin NEGATIVE (Negative); Urine Blood Negative (Negative); Urine Clarity Clear (Clear); Urine Color Colorless (Yellow); Urine Culture Reflex Order NOT NEEDED; Urine Glucose NEGATIVE (Negative); Urine Ketones NEGATIVE (Negative); Urine Microscopic Reflex YN ORDER UMIC; Urine Nitrite NEGATIVE (Negative); Urine Protein NEGATIVE (Negative); Urine RBC None Seen /HPF (None Seen); Urine Urobilinogen Normal (Normal); Urine WBC <5 /HPF (<5); Urine pH 5.5 (5.0-7.0)
[2024-05-17 02:05] LABS: Albumin 3.3 g/dL (3.4-5.0); Albumin/Globulin Ratio 0.7 (1.1-1.8); Anion Gap 9.8 mEq/L (5.0-15.0); Bilirubin Total 0.2 mg/dL (0.2-1.0); Globulin 4.7 g/dL (2.3-3.5); Potassium 3.8 mEq/L (3.5-5.1)
--- NOTE | 2024-05-17 02:40 | RAD REPORT ---
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 COMPARISON: CT Chest Abdomen Pelvis 09/23/2021. TECHNIQUE: Grayscale and color doppler images of the right upper quadrant are provided for evaluation . FINDINGS: Liver: The liver was not imaged. Gallbladder: There are minimal debris/intimal echogenic structures corresponding to sludge. Gallbladd er wall thickness measures 1.8 mm. There is no pericholecystic fluid. Negative sonographic Perera's sign, per astronautical engineer. Biliary tree: Common duct measures 3.7 mm. No intra and/or extrahepatic biliary ductal dilatation. Pancreas: Was not imaged Right kidney: Was not imaged Abdominal cavity: Was not provided. Aorta and IVC: Was not imaged. IMPRESSION: Minimal gallbladder sludge. 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 Transcribed Date/Time: 05/17/2024 2:40 AM
--- NOTE | 2024-05-17 02:45 | ER ---
Nurse's Notes [facility] Name: Denise Wick Age: 44 yrs Sex: Female : 1980 Arrival Date: 05/17/2024 Time: 00:23 Bed 3 Private MD: Diagnosis: Abdominal pain, unspecified Presentation: 05/17 00:39 Chief complaint: Patient states: RIGHT UPPER QUADRANT PAIN THAT RADIATES TO RIGHT LOWER ha1 QUADRANT. 00:39 Coronavirus screen: At this time, the client does not indicate any symptoms associated ha1 with coronavirus-19. Ebola Screen: No symptoms or risks identified at this time. 00:39 Method Of Arrival: Ambulatory ha1 00:39 Initial Sepsis Screen: Does the patient meet any 2 criteria? No. Patient's initial ha1 sepsis screen is negative. Does the patient have a suspected source of infection? No. Patient's initial sepsis screen is negative. 00:39 Risk Assessment: Do you want to hurt yourself or someone else? Patient reports no ha1 desire to harm self or others. Onset of symptoms was May 17, 2024. 00:39 Acuity: CHRISTINA 3 ha1 Triage Assessment: 00:39 General: Appears uncomfortable, Behavior is cooperative. Pain: Complains of pain in ha1 right upper quadrant Pain radiates to right lower quadrant Pain currently is 9 out of 10 on a pain scale. Quality of pain is described as. 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 - Infectious Disease History:: Denies. - Social history:: Smoking status: Patient denies any tobacco usage or history of. Screenin:45 [facility] ED Fall Risk Assessment (Adult) History of falling in the last 3 months, lg3 including since admission No falls in past 3 months (0 pts) Confusion or Disorientation No (0 pts) Intoxicated or Sedated No (0 pts) Impaired Gait No (0 pts) Mobility Assist Device Used No (0 pt) Altered Elimination No (0 pt) Score/Fall Risk Level 0 - 2 = Low Risk Oriented to surroundings, Maintained a safe environment, Educated pt \T\ family on fall prevention, incl call for assistance when getting out of bed, Assessed \T\ reinforced patient's understanding of fall precautions, Provided non-skid footwear. Abuse screen: Denies threats or abuse. Denies injuries from another. Nutritional screening: No deficits noted. Tuberculosis screening: No symptoms or risk factors identified. Assessment: 00:45 General: Appears in no apparent distress. uncomfortable, Behavior is calm, cooperative. lg3 Pain: Complains of pain in right lower quadrant and right upper quadrant Pain currently is 8 out of 10 on a pain scale. Neuro: No deficits noted. Neal Agitation-Sedation Scale (RASS): 0 - Alert and Calm Level of Consciousness is awake, alert, obeys commands, Oriented to person, place, time, situation. Cardiovascular: No deficits noted. Denies chest pain, shortness of breath, Capillary refill < 3 seconds Clubbing of nail beds is absent JVD is absent Patient's skin is warm and dry. Respiratory: No deficits noted. Airway is patent Respiratory effort is even, unlabored, Respiratory pattern is regular, symmetrical. GI: Abdomen is round non-distended, Abd is soft X 4 quads Abdomen is tender to palpation in right upper quadrant and right lower quadrant Reports lower abdominal pain, upper abdominal pain, nausea. : No signs and/or symptoms were reported regarding the genitourinary system. EENT: No deficits noted. No signs and/or symptoms were reported regarding the EENT system. Derm: No deficits noted. No signs and/or symptoms reported regarding the dermatologic system. Skin is intact, is healthy with good turgor, Skin is dry, Skin is normal, Skin temperature is warm. Musculoskeletal: No deficits noted. No signs and/or symptoms reported regarding the musculoskeletal system. Circulation, motion, and sensation intact. Range of motion: intact in all extremities. 02:25 Reassessment: Patient appears in no apparent distress at this time. No changes from lg3 previously documented assessment. Patient and/or family updated on plan of care and expected duration. Pain level reassessed. Patient is alert, oriented x 3, equal unlabored respirations, skin warm/dry/pink. 02:52 Reassessment: Patient appears in no apparent distress at this time. Patient and/or bm8 family updated on plan of care and expected duration. Pain level reassessed. Patient is alert, oriented x 3, equal unlabored respirations, skin warm/dry/pink. Patient states feeling better. Patient states symptoms have improved. Vital Signs: 00:39 BP 149 / 95; Pulse 100; Resp 17 S; Temp 98.1; Pulse Ox 100% on R/A; Weight 88.45 kg; ha1 Height 5 ft. 6 in. ; Pain 9/10; 02:25 BP 140 / 89; Pulse 92; Resp 16 S; Pulse Ox 100% on R/A; lg3 02:52 BP 136 / 87; Pulse 87; Resp 17; Temp 98.2; Pulse Ox 100% ; Pain 0/10; bm8 00:39 Body Mass Index 31.47 (88.45 kg, 167.64 cm) ha1 00:39 Pain Scale: Adult ha1 02:52 Pain Scale: Adult bm8 Cumming Coma Score: 02:52 Eye Response: spontaneous(4). Motor Response: obeys commands(6). Verbal Response: bm8 oriented(5). Total: 15. ED Course: 00:23 Arm band placed on right wrist. bm8 00:27 Patient arrived in ED. gm2 00:27 Sushma Viera MD is Attending Physician. sp3 00:45 Patient maintains SpO2 saturation greater than 95% on room air. lg3 00:45 Patient has correct armband on for positive identification. Placed in gown. Bed in low lg3 position. Call light in reach. Side rails up X 1. Client placed on continuous cardiac and pulse oximetry monitoring. NIBP monitoring applied. Door closed. Noise minimized. Warm blanket given. Pillow given. 01:12 Missed attempt(s): 22 gauge in left antecubital area. Bleeding controlled, band aid lg3 applied, catheter tip intact. 01:12 Urine collected: clean catch specimen, clear. lg3 01:30 Initial lab(s) drawn, by ED staff, sent to lab. Inserted saline lock: 18 gauge in right lg3 antecubital area, using aseptic technique. Blood collected. 01:39 Triage completed. ha1 01:41 CT Abd/Pelvis - IV Contrast Only In Process Unspecified. EDMS 01:41 US Abdomen Limited In Process Unspecified. EDMS 02:52 Carl Deleon, RN is Primary Nurse. bm8 02:52 No provider procedures requiring assistance completed. IV discontinued, intact, bm8 bleeding controlled, No redness/swelling at site. Pressure dressing applied. 02:52 Provided Education on: post er care. bm8 Administered Medications: No medications were administered Medication: 02:52 VIS not applicable for this client. bm8 Outcome: 02:45 Discharge ordered by . sp3 02:52 Discharged to home ambulatory, bm8 02:52 Condition: stable 02:52 Discharge instructions given to patient, family, Instructed on discharge instructions, follow up and referral plans. medication usage, safety practices, Demonstrated understanding of instructions, follow-up care, medications, Prescriptions given X 1, 02:54 Patient left the ED. bm8 Signatures: Dispatcher [employer] Natalie Coe, RN RN 3 Sushma Viera MD MD sp3 Angeles Gudino, RN RN [email or web address] Cecelia Lerner 2 Carl Deleon, RN RN bm8
--- NOTE | 2024-05-17 02:46 | EDPHYS ---
Physician Documentation [facility] Name: Denise Wick Age: 44 yrs Sex: Female : 1980 Arrival Date: 05/17/2024 Time: 00:23 Bed 3 Private MD: ED Physician Sushma Viera HPI: 05/17 01:14 This 44 yrs old Female presents to ER via Ambulatory with complaints of RT Side abd sp3 pain. 01:14 44-year-old female with history of prior IV drug use now presents to the ED with right sp3 upper quadrant abdominal pain after eating dinner. Symptoms started approximately 4 to 5 hours ago and comprises right upper quadrant pain without emesis, diarrhea or any other symptoms. She denies fever, URI symptoms, neck pain, chest pain, shortness of breath, back pain, symptoms, PARTS BACK COUNTER MAN symptoms, trauma, or any other signs or symptoms on ROS at this time. No past surgical history noted.. 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 - Infectious Disease History:: Denies. - Social history:: Smoking status: Patient denies any tobacco usage or history of. ROS: 01:15 Constitutional: Negative for fever, chills, and weight loss, Eyes: Negative for injury, sp3 pain, redness, and discharge, ENT: Negative for injury, pain, and discharge, Neck: Negative for injury, pain, and swelling, Cardiovascular: Negative for chest pain, palpitations, and edema, Respiratory: Negative for shortness of breath, cough, wheezing, and pleuritic chest pain, Back: Negative for injury and pain, : Negative for injury, bleeding, discharge, and swelling, MS/Extremity: Negative for injury and deformity, Skin: Negative for injury, rash, and discoloration, Neuro: Negative for headache, weakness, numbness, tingling, and seizure, Psych: Negative for depression, anxiety, suicide ideation, homicidal ideation, and hallucinations, Allergy/Immunology: Negative for hives, rash, and allergies, Endocrine: Negative for neck swelling, polydipsia, polyuria, polyphagia, and marked weight changes, Hematologic/Lymphatic: Negative for swollen nodes, abnormal bleeding, and unusual bruising, 01:15 All other systems are negative, Exam: 01:15 Constitutional: This is a well developed, well nourished patient who is awake, alert, sp3 and in no acute distress. Head/Face: Normocephalic, atraumatic. Eyes: Pupils equal round and reactive to light, extra-ocular motions intact. Lids and lashes normal. Conjunctiva and sclera are non-icteric and not injected. Cornea within normal limits. Periorbital areas with no swelling, redness, or edema. Neck: Trachea midline, no thyromegaly or masses palpated, and no cervical lymphadenopathy. Supple, full range of motion without nuchal rigidity, or vertebral point tenderness. No Meningismus. Chest/axilla: Normal chest wall appearance and motion. Nontender with no deformity. No lesions are appreciated. Cardiovascular: Regular rate and rhythm with a normal S1 and S2. No gallops, murmurs, or rubs. Normal PMI, no JVD. No pulse deficits. Respiratory: Lungs have equal breath sounds bilaterally, clear to auscultation and percussion. No rales, rhonchi or wheezes noted. No increased work of breathing, no retractions or nasal flaring. Back: No spinal tenderness. No costovertebral tenderness. Full range of motion. Skin: Warm, dry with normal turgor. Normal color with no rashes, no lesions, and no evidence of cellulitis. MS/ Extremity: Pulses equal, no cyanosis. Neurovascular intact. Full, normal range of motion. Neuro: Awake and alert, GCS 15, oriented to person, place, time, and situation. Cranial nerves II-XII grossly intact. Motor strength 5/5 in all extremities. Sensory grossly intact. Cerebellar exam normal. Normal gait. Psych: Awake, alert, with orientation to person, place and time. Behavior, mood, and affect are within normal limits. 01:16 Abdomen/GI: Right upper quadrant abdominal pain to palpation sharp in nature. No sp3 peritoneal signs, or left-sided pain. CVA tenderness negative., Vital Signs: 00:39 BP 149 / 95; Pulse 100; Resp 17 S; Temp 98.1; Pulse Ox 100% on R/A; Weight 88.45 kg; ha1 Height 5 ft. 6 in. ; Pain 9/10; 02:25 BP 140 / 89; Pulse 92; Resp 16 S; Pulse Ox 100% on R/A; lg3 02:52 BP 136 / 87; Pulse 87; Resp 17; Temp 98.2; Pulse Ox 100% ; Pain 0/10; bm8 00:39 Body Mass Index 31.47 (88.45 kg, 167.64 cm) ha1 00:39 Pain Scale: Adult ha1 02:52 Pain Scale: Adult bm8 [place] Coma Score: 02:52 Eye Response: spontaneous(4). Motor Response: obeys commands(6). Verbal Response: bm8 oriented(5). Total: 15. MDM: 00:28 Medical Screening Exam initiated sp3 01:18 Data reviewed: vital signs, nurses notes, lab test result(s), radiologic studies. ED sp3 course: 44-year-old female with right upper quadrant abdominal pain. Differential diagnosis includes cholecystitis, biliary colic, other biliary pathology, gastritis, functional abdominal pain, among others. Workup will include ultrasound of the right upper quadrant, CT abdomen pelvis, labs, UA and general supportive care. Currently staff is having difficult time with vascular access given her IV drug use history. Ultrasound is pending to expedite diagnosis with remainder of workup to be performed once access is obtained. Vital signs normal and patient is in no acute distress at the moment.. 02:45 ED course: Ultrasound demonstrates mild sludge without any other biliary pathology. No sp3 gallbladder wall thickening, pericholecystic fluid, bile duct dilatation noted. CT scan of the abdomen pelvis is also negative. All labs negative. We will safely discharge patient home at this time.. 05/17 00:58 Order name: CBC with Diff; Complete Time: 02: sp3 05/17 00:58 Order name: CMP; Complete Time: 02: sp3 05/17 00:58 Order name: Lipase; Complete Time: 02: sp3 05/17 00:58 Order name: Test, Urine; Complete Time: 02: sp3 05/17 00:58 Order name: Urinalysis w/ reflexes; Complete Time: 02:11 sp3 05/17 00:58 Order name: CT Abd/Pelvis - IV Contrast Only; Complete Time: 02:46 sp3 05/17 01:11 Order name: US Abdomen Limited; Complete Time: 02:46 sp3 05/17 00:58 Order name: IV Saline Lock; Complete Time: 01:30 sp3 05/17 00:58 Order name: Labs collected and sent; Complete Time: 01:30 sp3 Administered Medications: No medications were administered Disposition Summary: 05/17/24 02:45 Discharge Ordered Notes: Location: Home sp3 Condition: Stable sp3 Diagnosis - Abdominal pain, unspecified sp3 Followup: sp3 - With: Private Physician - When: Upon discharge from the Emergency Department - Reason: Continuance of care Discharge Instructions: - Discharge Summary Sheet sp3 - Abdominal Pain, Adult sp3 Forms: - Medication Reconciliation Form sp3 - Antibiotic Education sp3 - Prescription Opioid Use sp3 - Patient Portal Instructions sp3 - Leadership Thank You Letter sp3 Prescriptions: - dicyclomine 10 mg Oral capsule - take 1 capsule ORAL route 3 times per day; 20 capsule; Refills: 0, Product sp3 Selection Permitted Signatures: Dispatcher [employer] EDMS Sushma Viera MD MD sp3 Angeles Gudino RN RN ha1 Corrections: (The following items were deleted from the chart) 00:58 00:58 CBC+H.LAB.BRZ ordered. EDMS EDMS 00:58 00:58 COMPREHENSIVE METABOLIC PANEL+C.LAB.BRZ ordered. EDMS EDMS 00:58 00:58 LIPASE+C.LAB.BRZ ordered. EDMS EDMS 00:58 00:58 Test, Urine+UC.LAB.BRZ ordered. EDMS EDMS 00:58 00:58 Urinalysis+U.LAB.BRZ ordered. EDMS EDMS 00:58 00:58 Abdomen Pelvis W Con+CT.RAD.BRZ ordered. EDMS EDMS 01:11 01:11 Abdomen Limited+US.RAD.BRZ ordered. EDMS EDMS
--- NOTE | 2024-05-17 02:46 | RAD REPORT ---
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 COMPARISON: CT Chest Abdomen Pelvis 09/23/2021. PROCEDURE: Contrast-enhanced images of the abdomen and pelvis were performed from the lung bases to the ischial tuberosities after the administration of IV contrast. In addition multiplanar reformats in the coronal and sagittal plane were obtained and reviewed. An individualized dose optimization technique, Automated Exposure Control, was utilized for the perfo rmed procedure. FINDINGS: Lung bases: The lung bases demonstrated presence of compressive atelectatic changes left lung base. S mall hiatal hernia. Liver: The liver demonstrates to be normal, no focal lesions identified. Gallbladder: The gallbladder demonstrate to be normal. Adrenal glands: The adrenal glands demonstrate to be normal. Pancreas: The pancreas demonstrate to be normal. Spleen: The spleen demonstrate to be within normal limits. Kidneys: The kidneys demonstrate normal uptake of contrast media. There is no evidence for nephroli thiasis and/or hydronephrosis. GI: Grossly the unopacified stomach, small bowel and large bowel demonstrate to be within normal limi ts. No evidence for bowel dilatation and/or free air. The appendix was not visualized. The left-sided colon demonstrate to be decompressed with no gross abnormalities. : The urinary bladder demonstrate to be unremarkable. Genitalia: The uterus demonstrate to be within normal limits. There are normal adnexal structures. Abdominal aorta: The aorta demonstrate to be within normal limits. Retroperitoneum: There is no retroperitoneal lymphadenopathy. There is no evidence for ascites and/or abnormal fluid collections. Bones: The bony structures demonstrate mild bony osteopenia. Questionable small inferior plate compre ssion deformity at T12. Soft tissues: The soft tissues demonstrate to be unremarkable. IMPRESSION: Small hiatal hernia. Compressive atelectatic changes left lung base. Questionable small inferior plate compression deformity at T12. Otherwise unremarkable CT scan of the abdomen and pelvis with contrast. Electronically signed by: Vega Echeverria MD 05/17/2024 02:42 AM PROCESSING SPECIALIST Due to temporary technical issues with the PACS/[employer] reporting system, reports are being jonathan d by the in-house radiologist without review as a courtesy to ensure prompt reporting the interpreting radiologist is fully responsible for the content of the report. Transcribed Date/Time: 05/17/2024 2:46 AM
[2024-05-17 06:46] VITALS: O2SAT 100
[2024-05-17 06:58] VITALS: BP 136/87; TEMP 98.2
== END 2024-05-17 02:54 | disposition home or self-care (01) ==
LOC: ER 00:23
DX: R10.11 Right upper quadrant pain (principal)
CPT/HCPCS: 85025; 81001; 36415; 81025; 83690; 80053; 74177; 76705; 99284; Q9967